=== PATIENT | female | born 1970 | race Asian ===

== ENCOUNTER 2017-07-03 12:03 | Inpatient (IN) | payer OTHER, SELFPAY ==
[2017-07-03] VITALS (20 sets, daily range): BP systolic 94–108; BP diastolic 60–78; PULSE 85–128; RESP 15–23; TEMP 36.5–38.3; O2SAT 79–98; BMI 16.9; BMI 17.0; BMI 13.7
--- NOTE | 2017-07-03 12:24 | EKG12_ITS ---
Test Reason : SOB Blood Pressure : / mmHG Vent. Rate : 091 BPM Atrial Rate : 091 BPM P-R Int : 124 ms QRS Dur : 080 ms QT Int : 408 ms P-R-T Axes : 054 070 057 degrees QTc Int : 501 ms Normal sinus rhythm Prolonged QT Abnormal ECG Confirmed by BRADY CASTRO, HAI ([id number]), movie editor HUANG BRENNAN ([id number] on 07/07/2017 12:59:58 PM Referred By: JESSIE Confirmed By:HAI ABREU MD
--- NOTE | 2017-07-03 12:24 | RAD_ITS ---
STUDY: X-RAY CHEST REASON FOR EXAM: Female, 46 years old. Weakness and shortness of breath. TECHNIQUE: PA and lateral views of the chest. COMPARISON: None. FINDINGS: EKG electrodes are seen. Hyperinflation. Left lower lobe consolidation and left pleural effusion. Patchy infiltrate in the posterior medial segment of the right lower lobe. There is no demonstrated pleural abnormality. Normal size heart. Normal mediastinum and jon. Normal visualized pulmonary arteries. Normal visualized aortic arch and descending thoracic aorta. Normal visualized thoracic spine. Normal visualized ribs, clavicles, and shoulders. There is no demonstrated abnormality of the visualized soft tissue structures of the upper abdomen. RAD/Chest PA and Lateral IMPRESSION: Left lower lobe consolidation and small left pleural effusion. Right basilar infiltrate. Follow-up is recommended. Electronically Signed: Vikas Haney MD at 12:52 EST Tel [phone], Service support ,
[2017-07-03 12:40] LABS: Absolute Lymphocyte Count 0.31 X10^3/ul (0.83-4.51); Hematocrit 24.5 % (37-47); Hemoglobin 7.9 g/dl (12.0-15.0); Lymphocyte # 0.31 X10^3/ul (4.0); Lymphocyte % 6.9 % (19-41); Mean Corp Hgb Conc 32.2 g/gl (32-36); Mean Corpuscular Hgb 36.2 pg (27.0-32.0); Mean Corpuscular Volume 112.4 fL (81-99); Mean Platelet Vol. 11.4 fl (6.2-12.0); Monocyte# 0.19 X10^3/uL; Monocyte% 4.3 % (0-10); Neutrophil # 3.96 X10^3/uL (2.7-7.7); Neutrophil % 88.6 % (47-70); Platelet Count 73 K/mm3 (150-450); RBC Distribution Width CV 14.9 % (11.6-14.6); RBC Distribution Width SD 60.9 fl (35.1-43.9); Red Blood Count 2.18 M/mm3 (4.2-5.4); White Blood Count 4.5 K/mm3 (4.4-11.0)
[2017-07-03 12:41] LABS: Differential Indicated SCAN CRITERIA MET; POSITIVE COUNT NO; POSITIVE DIFFERENTIAL YES; POSITIVE MORPHOLOGY YES
[2017-07-03 12:54] LABS: Anion Gap 12 (5-15); BUN 69 mg/dL (7-18); BUN/Creat Ratio 12.6 RATIO (10-20); Calcium,Total 7.9 mg/dL (8.5-10.1); Chloride 103 mmol/L (98-107); Creatinine, Serum 5.48 mg/dL (0.55-1.02); EST Glomerular Filtration Rate 9 mL/min (>60); Est Glom Filt Rate - Afr Amer 11 mL/min (>60); Glucose 67 mg/dL (74-106); Potassium 4.6 mmol/L (3.5-5.1); Sodium Level 136 mmol/L (136-145)
[2017-07-03 13:08] LABS: Hypochromasia 2+; Macrocytosis 1+; Platelet Estimate MKD DEC (ADEQ); Platelet Morphology LARGE; Schistocytes 1+
[2017-07-03 13:09] LABS: Toxic Granulation RARE
[2017-07-03] MEDS: 0.9% Normal Saline 1,000 ML 1000 ML IV (13:32)
--- NOTE | 2017-07-03 13:42 | ED.RN ---
PHARMACY CALLED FOR ZITHROMAX, WILL SEND
[2017-07-03] MEDS: Ceftriaxone 1 GM/50 mL Premix x1 IV (13:56)
[2017-07-03 14:03] LABS: Lactic Acid 2.9 mmol/L (0.4-2.0)
--- NOTE | 2017-07-03 14:04 | ED.RN ---
DR CASTREJON NOTIFIED OF LACTIC ACID RESULTS
--- NOTE | 2017-07-03 15:10 | PCM.HP.STD ---
Problem List (1) Sepsis Status: Acute Qualifiers: Sepsis type: sepsis due to unspecified organism Qualified Code(s): A41.9 - Sepsis, unspecified organism (2) Pneumonia, bacterial Status: Acute (3) JENNIFFER (acute kidney injury) Status: Acute (4) CKD (chronic kidney disease) stage 4, GFR 15-29 ml/min Status: Chronic (5) History of renal transplant Status: Chronic (6) History of gastric cancer Status: Chronic (7) Essential hypertension Status: Chronic (8) Anemia, chronic renal failure Status: Chronic Qualifiers: Chronic kidney disease stage: stage 4 (severe) Qualified Code(s): N18.4 - Chronic kidney disease, stage 4 (severe); D63.1 - Anemia in chronic kidney disease History of Present Illness Date of Admission: 07/03/17 Chief Complaint: chest pain, shortness of breath. Patient is a 46 years old female with history of renal failure s/p renal transplant, who presents to ED with complaining of chest pain and shortness of breath for about one week, progressively worsening. She has sharp chest pain with cough, which is mostly non-productive. She denied of any fever or chills, but had been feeling ill with decreased appetite, generalized weakness, and malaise. In ED, her blood pressure was low initially at 97/73, IVF had improved SBP to 110. She was hypoxic, 89% Oxygen saturation initially, improved to high 90's with 5 liter. CXR showed consolidation on LLL and infiltrate on RLL. Her creatinine on last record was 2.99 in December, with baseline ranging 2.4 to 3.2 last year. She followed nephrology at [facility]. WBC was 4.5, lactic acid was 2.9. Hgb 7.9, which is lower than her baseline, ranging 7.5 to 9.2 last year. She denied of any hematemesis or hematochezia/melena. Past Medical History Past Medical History (Chronic Problems): Chronic Problems CKD (chronic kidney disease) stage 4, GFR 15-29 ml/min (Chronic) History of renal transplant (Chronic) History of gastric cancer (Chronic) Essential hypertension (Chronic) Anemia, chronic renal failure (Chronic) Allergies Sulfa (Sulfonamide Antibiotics) Allergy (Verified 11/16/16 10:01) Hives NSAIDS (Non-Steroidal Anti-Inflamma Adverse Reaction (Verified 11/16/16 10:01) Other Home Medications: Ambulatory Orders Medication Instructions Recorded Amlodipine [Norvasc] 2.5 mg PO DAILY 07/03/17 Calcium Citrate/Vitamin D3 1 each PO DAILY 07/03/17 [Calcium Citrate - Vit D Caplet] Cholecalciferol (Vitamin D3) 50,000 unit PO FR 07/03/17 [Vitamin D] Colestipol Tablet [Colestid Tablet] 1 gm PO BID 07/03/17 Cyanocobalamin [Vitamin B12] 1,000 mcg IM Q30D 07/03/17 Dronabinol [Marinol] 2.5 mg PO 4X/DAY 07/03/17 Escitalopram Oxalate [Lexapro] 10 mg PO QODAY 07/03/17 Esomeprazole Mag Trihydrate 40 mg PO DAILY 07/03/17 [Nexium] Gabapentin [Neurontin] 300 mg PO BIDCM 07/03/17 Levonorgestrel [Mirena] 1 each IY 07/03/17 Lipase/Protease/Amylase [Creon Dr 1 each PO BID 07/03/17 12,000 Units Capsule] Multivit,Calc,Mins/Iron/Folic 1 each PO DAILY 07/03/17 [Therapeutic-M Tablet] Oxycodone [Oxyir] 5 mg PO Q8H PRN 07/03/17 Polyethylene Glycol 3350 [Miralax] 17 gm PO DAILY PRN PRN 07/03/17 Prednisone 5 mg PO DAILY 07/03/17 Vits [Prenatabs FA] 1 tablet PO DAILY 07/03/17 Sodium Bicarbonate 650 mg PO DAILY 07/03/17 Tacrolimus [Astagraf Xl] 2 mg PO BREAKFAST 07/03/17 Tacrolimus [Envarsus Xr] 1 mg PO DINNER 07/03/17 Tizanidine HCl [Zanaflex] 4 mg PO Q6H PRN 07/03/17 Surgical History: - - renal transplant Smoking Status: Former smoker Alcohol: None Drugs: None - *Family History Maternal History Items: No pertinent history Review of Systems Comment: ROS: In general: Patient has been in fair health. Malaise as above. See HPI. HEENT: Unremarkable. Patient denied of any dizziness, chronic headache, blurred vision, double vision, dry mouth, or nasal congestion. CV/respiratory: See HPI. GI: Patient denied any abdominal pain, nausea, vomiting, diarrhea, constipation, melena, or hematochezia. : Patient denied any significant urinary symptoms. She makes urine. Neurology: Unremarkable. There is no history of seizure as an adult. Psychological: Unremarkable. ?. Endocrine: Unremarkable. Musculoskeletal: Unremarkable. VTE Information - Inpt Only VTE Present on Admission: No VTE Mechan Device Prophylaxis: Knee High CLARK Hose VTE Pharm Prophylaxis ordered?: Yes Patient Problems: Active and Suspected Problems Sepsis (Acute) Pneumonia, bacterial (Acute) JENNIFFER (acute kidney injury) (Acute) Objective: In general, patient appears somewhat cachectic. She is alert and oriented x 3. HEENT: Head is atraumatic, and normocephalic. Pupils are equal, round, and reactive to light and accommodations. Neck is supple. There is no lymphadenopathy, or thyromegaly. Oral mucosa is pink, and moist. There are no lesions. Heart: Auscultation is normal with regular rhythm and rate. There is no extra heart sounds, or murmurs. S1 and S2 are present. Point of maximal impulse is not displaced. Lungs: Rales at bases bilaterally. Abdomen: Abdominal wall is non-tender, and non-distended. There is no palpable mass or organomegaly. Normoactive bowel sounds are present. Extremities: There is no cyanosis or clubbing. Peripheral pulses are palpable. There is no edema. Skin: excoriation around lower lip. +contusion of forearm. Neurological: CN II - XII are intact. Sensory and motor functions are grossly normal with no obvious deficit. Cerebellar functions are within normal range. Gait was not tested. - Physical Exam Vital Signs Temp Pulse Resp BP Pulse Ox 97.7 F L 89 22 H 102/73 93 07/03/17 12:07 07/03/17 14:48 07/03/17 14:48 07/03/17 14:48 07/03/17 14:48 Oxygen Flow Rate 5 Oxygen Delivery Method Nasal Cannula Weight: 83 lb 15.938 oz Body Mass Index (BMI) 16.9 Laboratory Tests Past 24 Hrs 07/03/17 07/03/17 07/03/17 12:25 12:25 13:35 WBC 4.5 RBC 2.18 L Hgb 7.9 L Hct 24.5 L MCV 112.4 H MCH 36.2 H MCHC 32.2 RDW 14.9 H RDW Differential 60.9 H Plt Count 73 L MPV 11.4 Immature Gran % (Auto) 0.200 Neut % (Auto) 88.6 H Lymph % (Auto) 6.9 L Norman % (Auto) 4.3 Eos % (Auto) 0.0 Baso % (Auto) 0.0 Absolute Neuts (auto) 4.0 Absolute Lymphs (auto) 0.31 L Total Counted Not Reportable Toxic Granulation RARE Platelet Estimate MKD DEC Plt Morphology Comment LARGE Hypochromasia 2+ Macrocytosis 1+ Schistocytes 1+ Sodium 136 Potassium 4.6 Chloride 103 Carbon Dioxide 21.0 Anion Gap 12 BUN 69 H Creatinine 5.48 H Estim Creat Clear Calc 7.80 Est GFR (MDRD) Af Amer 11 L Est GFR (MDRD) Non-Af 9 L BUN/Creatinine Ratio 12.6 Glucose 67 L Lactic Acid 2.9 H Calcium 7.9 L Troponin I < 0.02 Diagnostic Data Chest X-Ray 07/03/17 12:24 IMPRESSION: Left lower lobe consolidation and small left pleural effusion. Right basilar infiltrate. Follow-up is recommended. Electronically Signed: Vikas Haney MD at 12:52 EST Tel [phone], Service support , Assessment/Plan Active and Suspected Problems Sepsis (Acute) Pneumonia, bacterial (Acute) JENNIFFER (acute kidney injury) (Acute) Patient is a 46 years old female with history of renal failure s/p renal transplant, who presents to ED with complaining of chest pain and shortness of breath for about one week, progressively worsening. She has sharp chest pain with cough, which is mostly non-productive. She denied of any fever or chills, but had been feeling ill with decreased appetite, generalized weakness, and malaise. In ED, her blood pressure was low initially at 97/73, IVF had improved SBP to 110. She was hypoxic, 89% Oxygen saturation initially, improved to high 90's with 5 liter. CXR showed consolidation on LLL and infiltrate on RLL. Her creatinine on last record was 2.99 in December, with baseline ranging 2.4 to 3.2 last year. She followed nephrology at [facility]. WBC was 4.5, lactic acid was 2.9. Hgb 7.9, which is lower than her baseline, ranging 7.5 to 9.2 last year. She denied of any hematemesis or hematochezia/melena. #1 Sepsis. Likely with pneumonia. She responded to IVF well. Lactic acid was 2.9, and she was hypotensive. Continue IVF resuscitation. Decreased volume for CKD/JENNIFFER. #2 Pneumonia. Bilateral lower lobes. Started on Rocephin and azithromycin empirically. Blood cultures pending. Urine for legionella and strep pneumoniae Ag. DuoNeb aerosol treatment. Oxygen prn. #3 JENNIFFER. With underling CKD IV. IVF has above, NS 125 ml/hr after IV bolus. Repeat BMP. She seed [facility] nephrology. Consult Dr. Mcdaniel while in the hospital. If renal function dose not improve, she may need to be transferred to [facility]. #4 History of renal transplant. Continue current medications tacrolimus and prednisone. Check tacrolimus level. #5 Anemia with renal disease. Lower than her baseline. She has history of PUD, but she is asymptomatic. Check hemoccult stool. She has no signs of obvious active bleeding. Monitor CBC. VTE prophylaxis: Heparin SQ. GI prophylaxis: PPI po. She is full code. Disposition: To be determined. Code Visit Inpatient E&M: 80685 Init Hosp L3
--- NOTE | 2017-07-03 15:20 | HP.PCM_ITS ---
Problem List (1) Sepsis Status: Acute Qualifiers: Sepsis type: sepsis due to unspecified organism Qualified Code(s): A41.9 - Sepsis, unspecified organism (2) Pneumonia, bacterial Status: Acute (3) JENNIFFER (acute kidney injury) Status: Acute (4) CKD (chronic kidney disease) stage 4, GFR 15-29 ml/min Status: Chronic (5) History of renal transplant Status: Chronic (6) History of gastric cancer Status: Chronic (7) Essential hypertension Status: Chronic (8) Anemia, chronic renal failure Status: Chronic Qualifiers: Chronic kidney disease stage: stage 4 (severe) Qualified Code(s): N18.4 - Chronic kidney disease, stage 4 (severe); D63.1 - Anemia in chronic kidney disease History of Present Illness Date of Admission: 07/03/17 Chief Complaint: chest pain, shortness of breath. Patient is a 46 years old female with history of renal failure s/p renal transplant, who presents to ED with complaining of chest pain and shortness of breath for about one week, progressively worsening. She has sharp chest pain with cough, which is mostly non-productive. She denied of any fever or chills, but had been feeling ill with decreased appetite, generalized weakness, and malaise. In ED, her blood pressure was low initially at 97/73, IVF had improved SBP to 110. She was hypoxic, 89% Oxygen saturation initially, improved to high 90's with 5 liter. CXR showed consolidation on LLL and infiltrate on RLL. Her creatinine on last record was 2.99 in December, with baseline ranging 2.4 to 3.2 last year. She followed nephrology at [facility]. WBC was 4.5, lactic acid was 2.9. Hgb 7.9, which is lower than her baseline, ranging 7.5 to 9.2 last year. She denied of any hematemesis or hematochezia/ melena. Past Medical History Past Medical History (Chronic Problems): Chronic Problems CKD (chronic kidney disease) stage 4, GFR 15-29 ml/min (Chronic) History of renal transplant (Chronic) History of gastric cancer (Chronic) Essential hypertension (Chronic) Anemia, chronic renal failure (Chronic) Allergies Sulfa (Sulfonamide Antibiotics) Allergy (Verified 11/16/16 10:01) Hives NSAIDS (Non-Steroidal Anti-Inflamma Adverse Reaction (Verified 11/16/16 10:01) Other Home Medications: Ambulatory Orders Medication Instructions Recorded Amlodipine [Norvasc] 2.5 mg PO DAILY 07/03/17 Calcium Citrate/Vitamin D3 1 each PO DAILY 07/03/17 [Calcium Citrate - Vit D Caplet] Cholecalciferol (Vitamin D3) 50,000 unit PO FR 07/03/17 [Vitamin D] Colestipol Tablet [Colestid Tablet] 1 gm PO BID 07/03/17 Cyanocobalamin [Vitamin B12] 1,000 mcg IM Q30D 07/03/17 Dronabinol [Marinol] 2.5 mg PO 4X/DAY 07/03/17 Escitalopram Oxalate [Lexapro] 10 mg PO QODAY 07/03/17 Esomeprazole Mag Trihydrate 40 mg PO DAILY 07/03/17 [Nexium] Gabapentin [Neurontin] 300 mg PO BIDCM 07/03/17 Levonorgestrel [Mirena] 1 each IY 07/03/17 Lipase/Protease/Amylase [Creon Dr 1 each PO BID 07/03/17 12,000 Units Capsule] Multivit,Calc,Mins/Iron/Folic 1 each PO DAILY 07/03/17 [Therapeutic-M Tablet] Oxycodone [Oxyir] 5 mg PO Q8H PRN 07/03/17 Polyethylene Glycol 3350 [Miralax] 17 gm PO DAILY PRN PRN 07/03/17 Prednisone 5 mg PO DAILY 07/03/17 Vits [Prenatabs FA] 1 tablet PO DAILY 07/03/17 Sodium Bicarbonate 650 mg PO DAILY 07/03/17 Tacrolimus [Astagraf Xl] 2 mg PO BREAKFAST 07/03/17 Tacrolimus [Envarsus Xr] 1 mg PO DINNER 07/03/17 Tizanidine HCl [Zanaflex] 4 mg PO Q6H PRN 07/03/17 Surgical History: - - renal transplant Smoking Status: Former smoker Alcohol: None Drugs: None - *Family History Maternal History Items: No pertinent history Review of Systems Comment: ROS: In general: Patient has been in fair health. Malaise as above. See HPI. HEENT: Unremarkable. Patient denied of any dizziness, chronic headache , blurred vision, double vision, dry mouth, or nasal congestion. CV/respiratory : See HPI. GI: Patient denied any abdominal pain, nausea, vomiting, diarrhea, constipation, melena, or hematochezia. : Patient denied any significant urinary symptoms. She makes urine. Neurology: Unremarkable. There is no history of seizure as an adult. Psychological: Unremarkable. ?. Endocrine: Unremarkable. Musculoskeletal: Unremarkable. VTE Information - Inpt Only VTE Present on Admission: No VTE Mechan Device Prophylaxis: Knee High CLARK Hose VTE Pharm Prophylaxis ordered?: Yes Patient Problems: Active and Suspected Problems Sepsis (Acute) Pneumonia, bacterial (Acute) JENNIFFER (acute kidney injury) (Acute) Objective: In general, patient appears somewhat cachectic. She is alert and oriented x 3. HEENT: Head is atraumatic, and normocephalic. Pupils are equal, round, and reactive to light and accommodations. Neck is supple. There is no lymphadenopathy, or thyromegaly. Oral mucosa is pink, and moist. There are no lesions. Heart: Auscultation is normal with regular rhythm and rate. There is no extra heart sounds, or murmurs. S1 and S2 are present. Point of maximal impulse is not displaced. Lungs: Rales at bases bilaterally. Abdomen: Abdominal wall is non-tender, and non-distended. There is no palpable mass or organomegaly. Normoactive bowel sounds are present. Extremities: There is no cyanosis or clubbing. Peripheral pulses are palpable. There is no edema. Skin: excoriation around lower lip. +contusion of forearm. Neurological: CN II - XII are intact. Sensory and motor functions are grossly normal with no obvious deficit. Cerebellar functions are within normal range. Gait was not tested. - Physical Exam Vital Signs Temp Pulse Resp BP Pulse Ox 97.7 F L 89 22 H 102/73 93 07/03/17 12:07 07/03/17 14:48 07/03/17 14:48 07/03/17 14:48 07/03/17 14:48 Oxygen Flow Rate 5 Oxygen Delivery Method Nasal Cannula Weight: 83 lb 15.938 oz Body Mass Index (BMI) 16.9 Laboratory Tests Past 24 Hrs 07/03/17 07/03/17 07/03/17 12:25 12:25 13:35 WBC 4.5 RBC 2.18 L Hgb 7.9 L Hct 24.5 L MCV 112.4 H MCH 36.2 H MCHC 32.2 RDW 14.9 H RDW Differential 60.9 H Plt Count 73 L MPV 11.4 Immature Gran % (Auto) 0.200 Neut % (Auto) 88.6 H Lymph % (Auto) 6.9 L Reynolds % (Auto) 4.3 Eos % (Auto) 0.0 Baso % (Auto) 0.0 Absolute Neuts (auto) 4.0 Absolute Lymphs (auto) 0.31 L Total Counted Not Reportable Toxic Granulation RARE Platelet Estimate MKD DEC Plt Morphology Comment LARGE Hypochromasia 2+ Macrocytosis 1+ Schistocytes 1+ Sodium 136 Potassium 4.6 Chloride 103 Carbon Dioxide 21.0 Anion Gap 12 BUN 69 H Creatinine 5.48 H Estim Creat Clear Calc 7.80 Est GFR (MDRD) Af Amer 11 L Est GFR (MDRD) Non-Af 9 L BUN/Creatinine Ratio 12.6 Glucose 67 L Lactic Acid 2.9 H Calcium 7.9 L Troponin I < 0.02 Diagnostic Data Chest X-Ray 07/03/17 12:24 IMPRESSION: Left lower lobe consolidation and small left pleural effusion. Right basilar infiltrate. Follow-up is recommended. Electronically Signed: Vikas Haney MD at 12:52 EST Tel [phone], Service support , Assessment/Plan Active and Suspected Problems Sepsis (Acute) Pneumonia, bacterial (Acute) JENNIFFER (acute kidney injury) (Acute) Patient is a 46 years old female with history of renal failure s/p renal transplant, who presents to ED with complaining of chest pain and shortness of breath for about one week, progressively worsening. She has sharp chest pain with cough, which is mostly non-productive. She denied of any fever or chills, but had been feeling ill with decreased appetite, generalized weakness, and malaise. In ED, her blood pressure was low initially at 97/73, IVF had improved SBP to 110. She was hypoxic, 89% Oxygen saturation initially, improved to high 90's with 5 liter. CXR showed consolidation on LLL and infiltrate on RLL. Her creatinine on last record was 2.99 in December, with baseline ranging 2.4 to 3.2 last year. She followed nephrology at [facility]. WBC was 4.5, lactic acid was 2.9. Hgb 7.9, which is lower than her baseline, ranging 7.5 to 9.2 last year. She denied of any hematemesis or hematochezia/ melena. #1 Sepsis. Likely with pneumonia. She responded to IVF well. Lactic acid was 2.9, and she was hypotensive. Continue IVF resuscitation. Decreased volume for CKD/JENNIFFER. #2 Pneumonia. Bilateral lower lobes. Started on Rocephin and azithromycin empirically. Blood cultures pending. Urine for legionella and strep pneumoniae Ag. DuoNeb aerosol treatment. Oxygen prn. #3 JENNIFFER. With underling CKD IV. IVF has above, NS 125 ml/hr after IV bolus. Repeat BMP. She seed [facility] nephrology. Consult Dr. Mcdaniel while in the hospital. If renal function dose not improve, she may need to be transferred to [facility]. #4 History of renal transplant. Continue current medications tacrolimus and prednisone. Check tacrolimus level. #5 Anemia with renal disease. Lower than her baseline. She has history of PUD, but she is asymptomatic. Check hemoccult stool. She has no signs of obvious active bleeding. Monitor CBC. VTE prophylaxis: Heparin SQ. GI prophylaxis: PPI po. She is full code. Disposition: To be determined. Code Visit Inpatient E&M: 29848 Init Hosp L3
[2017-07-03] MEDS: 0.9% Normal Saline 1,000 ML 125 ML IV ×2 (16:00→22:58)
[2017-07-03 17:35] LABS: Reflex Lactate? Y
[2017-07-03 17:54] LABS: Lactic Acid 1.8 mmol/L (0.4-2.0)
[2017-07-03] MEDS: oxyCODONE 5 MG Tablet PO ×2 (18:17→22:57)
[2017-07-03] MEDS: Gabapentin 300 MG Capsule PO (18:17)
[2017-07-03] MEDS: Cyanocobalamin (B12) 1,000 MCG/ML Vial 1000 MCG IM (19:30)
[2017-07-03] MEDS: Calcium Carb/Vitamin D 1 TABLET Tablet PO (19:30)
[2017-07-03] MEDS: Ipratropium/Albuterol Sulfate 3 ML AMPUL.NEB INHALATION (19:31)
[2017-07-03] MEDS: Heparin Injection 5,000 UNITS/ML Syringe 5000 UNITS SC (22:48)
[2017-07-03] MEDS: Acetaminophen 325 MG Tablet 650 MG PO (23:08)
[2017-07-04] VITALS (26 sets, daily range): BP systolic 92–117; BP diastolic 63–84; PULSE 98–116; RESP 12–24; TEMP 36.6–37.2; O2SAT 91–97
[2017-07-04] MEDS: Ipratropium/Albuterol Sulfate 3 ML AMPUL.NEB INHALATION ×4 (00:55→19:47)
[2017-07-04 04:13] LABS: M R Staph aureus DNA By PCR Negative (Negative); Probe Check PASS; Specimen Processing Control PASS
[2017-07-04] MEDS: Heparin Injection 5,000 UNITS/ML Syringe 5000 UNITS SC ×2 (05:47→14:22)
[2017-07-04] MEDS: oxyCODONE 5 MG Tablet PO ×2 (06:08→12:01)
[2017-07-04 07:09] LABS: Hematocrit 19.8 % (37-47); Hemoglobin 6.7 g/dl (12.0-15.0); Mean Corp Hgb Conc 33.8 g/gl (32-36); Mean Corpuscular Hgb 37.9 pg (27.0-32.0); Mean Corpuscular Volume 111.9 fL (81-99); Mean Platelet Vol. 11.8 fl (6.2-12.0); Platelet Count 51 K/mm3 (150-450); RBC Distribution Width CV 14.5 % (11.6-14.6); Red Blood Count 1.77 M/mm3 (4.2-5.4); White Blood Count 6.8 K/mm3 (4.4-11.0)
[2017-07-04 07:14] LABS: Scan Indicated on CBC? Y/N NO
[2017-07-04 07:48] LABS: Albumin, Serum 1.5 g/dL (3.2-5.0); BUN 63 mg/dL (7-18); Chloride 107 mmol/L (98-107); EST Glomerular Filtration Rate 11 mL/min (>60); Est Glom Filt Rate - Afr Amer 14 mL/min (>60); Estimated Creatinine Clearance 7.83 ml/min; Ferritin 1071 ng/mL (8-252); Glucose 76 mg/dL (74-106); Iron 9 ug/dL (50-170); Phosphorus 5.2 mg/dL (2.5-4.9); Potassium 4.7 mmol/L (3.5-5.1); Sodium Level 138 mmol/L (136-145)
[2017-07-04] MEDS: 0.9% Normal Saline 1,000 ML 125 ML IV (08:34)
[2017-07-04] MEDS: Pantoprazole Sodium 40 MG Tablet PO (08:50)
[2017-07-04] MEDS: Dronabinol 2.5 MG Capsule PO ×3 (09:50→17:11)
[2017-07-04] MEDS: Sodium Bicarbonate 650 MG Tablet PO (09:50)
[2017-07-04] MEDS: Calcium Carb/Vitamin D 1 TABLET Tablet PO ×2 (09:50→17:11)
[2017-07-04] MEDS: Gabapentin 300 MG Capsule PO ×2 (09:50→17:11)
[2017-07-04] MEDS: Prenatal Vits Tablet 1 TABLET PO (09:50)
[2017-07-04] MEDS: Ceftriaxone 1 GM/50 ML BAG IV (09:52)
--- NOTE | 2017-07-04 10:59 | PCM.CONS.R ---
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 Hameed at [facility]. She presented to ED on 07/03 with complains of chest pain and shortness of breath for about one week with nonproductive cough. She complained of chills but no fever. Her has been ill with the flu week ago. She was started on IV antibiotic therapy for bilateral Streptococcus pneumonia. Blood culture was positive for strep pneumoniae ?2 drawn in ER. She has been feeling ill with poor oral intake, anorexia with continued weight loss and fatigue. She has been on parenteral nutrition in the past but none recently. She is pancytopenic with hemoglobin of 7.9 dropped down to 6.7 g today. She has CKD stage IV with baseline creatinine running in the 2's, 3.9 on June 04, 2017. There has been some discussion about dialysis in the past with [facility] but no definite plans made. Creatinine on admission was elevated at 5.48 improved to 4.5 with IV hydration overnight. She denies any syncope or swelling. She has increased abdominal fullness with fluids or small meals. She has a history of CMV bleeding ulcers hospitalized twice at [facility] last year requiring intubation for one of the hospitalizations. She denied any hematochezia, melena, hematemesis. She denies any nausea or vomiting. She has been on ganciclovir for CMV infection last year. Today she continues to feel ill with weakness, fatigue, generalized malaise, and cough. She denies any nausea vomiting or diarrhea. She remains hypoxic requiring 5 L oxygen. She is tachycardic. CXR showed consolidation on LLL and RLL. Currently she is on tacrolimus and prednisone therapy for her kidney transplant. ProGraf level was sent yesterday with pending results. Last prograf level was 9 with SCr 3.9. - Allergies Allergies: Allergies Sulfa (Sulfonamide Antibiotics) Allergy (Verified 11/16/16 10:01) Hives NSAIDS (Non-Steroidal Anti-Inflamma Adverse Reaction (Verified 11/16/16 10:01) Other - Current Medications Current Medications: Current Medications Acetaminophen (Tylenol) 650 mg PO Q6H PRN PRN PRN Reason: Mild Pain (1-3)/Temp > 100.7 F Last Admin: 07/03/17 23:08 Dose: 325 mg Albuterol/Ipratropium (Duoneb) 3 ml INHALATION Q6H.RT [facility] Last Admin: 07/04/17 07:20 Dose: 3 ml Bisacodyl (Dulcolax) 5 mg PO DAILY PRN PRN PRN Reason: Constipation Calcium/Vitamin D (Os-Patrice 500mg + D[facility] Last Admin: 07/04/17 09:50 Dose: 1 tablet Colestipol HCl (Colestid Tablet) 1 gm PO BID [facility] Last Admin: 07/04/17 08:50 Dose: 1 gm Cyanocobalamin (Vitamin B12) 1,000 mcg IM Q30D [facility] Last Admin: 07/03/17 19:30 Dose: 1,000 mcg Dronabinol (Marinol) 2.5 mg PO 4X/DAY [facility] Last Admin: 07/04/17 09:50 Dose: 2.5 mg Escitalopram Oxalate (Lexapro) 10 mg PO QODAY [facility] Gabapentin (Neurontin) 300 mg PO BIDCM [facility] Last Admin: 07/04/17 09:50 Dose: 300 mg Heparin Sodium (Porcine) () 5,000 units SC Q8 [facility] Last Admin: 07/04/17 05:47 Dose: 5,000 units Sodium Chloride () 1,000 mls @ 125 mls/hr IV .Q8H [facility] Last Admin: 07/04/17 08:34 Dose: 125 mls/hr Ceftriaxone Sodium (Rocephin) 1 gm in 50 mls @ 100 mls/hr IV Q24 [facility] Last Admin: 07/04/17 09:52 Dose: 100 mls/hr Vancomycin HCl () 500 mg in 100 mls @ 100 mls/hr IV Q72H [facility] Last Admin: 07/04/17 01:50 Dose: 100 mls/hr Magnesium Hydroxide (Milk Of Magnesia) 30 ml PO DAILY PRN PRN Reason: Constipation Non-Formulary Medication (Tacrolimus) 2 mg PO BREAKFAST [facility] Non-Formulary Medication (Tacrolimus [Envarsus Xr]) 1 mg PO DINNER [facility] Ondansetron HCl (Zofran) 4 mg IV Q8H PRN PRN PRN Reason: NAUSEA Oxycodone HCl (Oxyir) 5 - 10 mg PO Q4H PRN PRN PRN Reason: MOD-SEVERE PAIN (4-10/10) Last Admin: 07/04/17 06:08 Dose: 5 mg Pancrelipase (Pancrelipase (5000-17,000-27,000)) 1 capsule PO TIDCM [facility] Last Admin: 07/04/17 09:50 Dose: 1 capsule Pantoprazole Sodium (Protonix) 40 mg PO DAILY [facility] Last Admin: 07/04/17 08:50 Dose: 40 mg Polyethylene Glycol (Miralax) 17 gm PO DAILY PRN PRN PRN Reason: Constipation [facility] Last Admin: 07/04/17 08:50 Dose: 5 mg Multivit/Folic Acid/Iron (Prenatabs Fa) 1 tablet PO DAILY [facility] Last Admin: 07/04/17 09:50 Dose: 1 tablet Promethazine HCl (Phenergan (Ll)) 12.5 mg IV Q6H PRN PRN Reason: NAUSEA Sodium Bicarbonate (Sodium Bicarbonate) 650 mg PO DAILY [facility] Last Admin: 07/04/17 09:50 Dose: 650 mg Sodium Chloride () 5 - 30 ml IV UD PRN PRN Reason: SALINE FLUSH Tizanidine HCl (Zanaflex) 4 mg PO Q6H PRN PRN Reason: MUSCLE SPASMS Zolpidem Tartrate (Ambien (Generic)) 5 mg PO QHS PRN PRN PRN Reason: INSOMNIA - Past Medical History Past Medical History (Chronic Problems): Chronic Problems CKD (chronic kidney disease) stage 4, GFR 15-29 ml/min (Chronic) History of renal transplant (Chronic) History of gastric cancer (Chronic) Essential hypertension (Chronic) Anemia, chronic renal failure (Chronic) - Past Surgical History Surgical History: - - renal transplant from mother Feb 2010 - Social History Smoking Status: Former smoker Alcohol: None Drugs: None - Family History Maternal History Items: No pertinent history Review of Systems Constitutional: Reports: Anorexia, Chills, Weakness, Fatigue, - Eyes: Denies: Vision Change HEENT: Denies: Head Aches Cardiovascular: Reports: Chest Pain, Palpitations. Denies: Edema, Syncope Respiratory: Reports: Cough, Shortness of Breath, Shortness of breath upon exertion. Denies: Hemoptysis Gastrointestinal: Reports: - - Anorexia, Early satiety. Denies: Abdominal Pain, Hematemesis, Hematochezia, Nausea, Vomiting Genitourinary: Denies: Dysuria Musculoskeletal: Reports: - - No swelling Skin: Denies: Rash Neurological: Denies: Tremor, Seizures Psychiatric: Reports: Depression Hematologic/ Lymphatic: Reports: Anemia - Managed by Dr. Campoverde in [facility] on RICKY therapy, -. Denies: Hx of blood clot Patient Problems: Active and Suspected Problems Sepsis (Acute) Pneumonia, bacterial (Acute) JENNIFFER (acute kidney injury) (Acute) - Physical Exam General: Alert, Oriented x3, Cooperative, - - Mild conversational dyspnea, sallow complected, cachectic HEENT: PERRLA, EOMI, Normocephalic Oral: Dry Mucosa Neck: Supple Lungs: No wheeze, Diminished Abdomen: Bowel Sounds Present Extremities: No edema Skin: No rashes Musculoskeletal: Cachexia, Muscle Wasting Neurological: Cranial nerves II-XII grossly intact Psych/Mental Status: Depressed, Alert and oriented to time, place, person, mood and affect Vital Signs Temp Pulse Resp BP Pulse Ox 98.3 F 109 H 18 110/82 H 94 07/04/17 10:00 07/04/17 10:00 07/04/17 10:00 07/04/17 10:00 07/04/17 10:00 Oxygen Flow Rate 5 Oxygen Delivery Method Nasal Cannula Weight: 31.4 kg Body Mass Index (BMI) 13.7 Intake and Output for Last 24 Hours 07/02/17 07/03/17 07/04/17 23:59 23:59 23:59 Intake Total 1437 / 1437 926 / 926 Output Total 400 / 400 Balance 1037 / 1037 926 / 926 Microbiology Past 72 Hours 07/03/17 23:20 Legionella Antigen - Final Urine, Clean Catch 07/03/17 23:20 Streptococcus pneumoniae Antigen (M - Final Urine, Clean Catch Streptococcus pneumonia Ag Laboratory Tests Past 24 Hrs 07/03/17 07/04/17 07/04/17 17:05 01:15 06:23 WBC 6.8 RBC 1.77 L Hgb 6.7 L Hct 19.8 L MCV 111.9 H MCH 37.9 H MCHC 33.8 RDW 14.5 RDW Differential 56.0 H Plt Count 51 L MPV 11.8 Sodium Potassium Chloride Carbon Dioxide BUN Creatinine Estim Creat Clear Calc Est GFR (MDRD) Af Amer Est GFR (MDRD) Non-Af BUN/Creatinine Ratio Glucose Lactic Acid 1.8 Calcium Phosphorus Iron Ferritin Albumin MRSA (PCR) Negative 07/04/17 06:23 WBC RBC Hgb Hct MCV MCH MCHC RDW RDW Differential Plt Count MPV Sodium 138 Potassium 4.7 Chloride 107 Carbon Dioxide 21.0 BUN 63 H Creatinine 4.50 H Estim Creat Clear Calc 7.83 Est GFR (MDRD) Af Amer 14 L Est GFR (MDRD) Non-Af 11 L BUN/Creatinine Ratio 14.0 Glucose 76 Lactic Acid Calcium 7.0 L Phosphorus 5.2 H Iron 9 L Ferritin 1071 H Albumin 1.5 L MRSA (PCR) Clinical Impression(s) from Imaging Studies Chest X-Ray 07/03/17 12:24 IMPRESSION: Left lower lobe consolidation and small left pleural effusion. Right basilar infiltrate. Follow-up is recommended. Electronically Signed: Vikas Haney MD at 12:52 EST Tel [phone], Service support , Assessment/Plan Active and Suspected Problems Sepsis (Acute) Pneumonia, bacterial (Acute) JENNIFFER (acute kidney injury) (Acute) 1. JENNIFFER on CKD stage IV s/p LUR kidney transplant with prerenal component from dehydration, sepsis. Baseline creatinine in the 2 to 3 range last year. Creatinine 5.48 on admission improved to 4.5 today after IV fluids. Discussed possibility of needing to start dialysis if her renal function does not recover. 2. Acute sepsis with Streptococcus pneumoniae. She has mild respiratory distress with tachycardia and tachypnea, hypoxemia. Continue supportive measures. Consider stress dose steroids. 3. S/p kidney transplant. Discussed with transplant painter interior finish at [facility] in regards to adjusting her tacrolimus dose due to renal failure and recent pneumonia. will decrease FK to 1mg bid. Await FK level from yesterday 4. Pancytopenia hemoglobin down to 6.9 g. Transfuse 1 unit packed red cells 5. Failure to thrive with severe protein calorie malnutrition. Albumin at 1.4. She would benefit from TPN therapy. 6. History of CMV stomach ulcers with GI bleed. 7. Due to patient's complicated medical condition and long turnaround time for her antirejection medication levels, would recommend to transfer her to [facility]. Discussed with transplant painter interior finish and hospitalist.
--- NOTE | 2017-07-04 11:01 | CASEMGMT ---
Face to Face with patient for initial transition planning/care coordination assessment. RN DANIEL introduced self and role at [facility], pt voices understanding and consents to assessment at this time. Pt is lying in bed in no distress but pt seems weak and that it's a struggle to answer questions at this time. Pt A/O x4 at this time and answers all questions appropriately. Care providers, pharmacy, and demographics verified. See attached link. Pt voices no further concerns/needs at this time. Advised pt to ask for CM if any further questions/concerns/needs arise, voices understanding. CM to follow for any further discharge planning/needs. PLAN: Possible transfer to [facility] Delfina MILLAN CM
--- NOTE | 2017-07-04 11:25 | CON.PCM_ITS ---
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 Hameed at [facility]. She presented to ED on 07/03 with complains of chest pain and shortness of breath for about one week with nonproductive cough. She complained of chills but no fever. Her has been ill with the flu week ago. She was started on IV antibiotic therapy for bilateral Streptococcus pneumonia. Blood culture was positive for strep pneumoniae ?2 drawn in ER. She has been feeling ill with poor oral intake, anorexia with continued weight loss and fatigue. She has been on parenteral nutrition in the past but none recently. She is pancytopenic with hemoglobin of 7.9 dropped down to 6.7 g today. She has CKD stage IV with baseline creatinine running in the 2's, 3.9 on June 04, 2017. There has been some discussion about dialysis in the past with [facility] but no definite plans made. Creatinine on admission was elevated at 5.48 improved to 4.5 with IV hydration overnight. She denies any syncope or swelling. She has increased abdominal fullness with fluids or small meals. She has a history of CMV bleeding ulcers hospitalized twice at [facility] last year requiring intubation for one of the hospitalizations. She denied any hematochezia, melena, hematemesis. She denies any nausea or vomiting. She has been on ganciclovir for CMV infection last year. Today she continues to feel ill with weakness, fatigue, generalized malaise, and cough. She denies any nausea vomiting or diarrhea. She remains hypoxic requiring 5 L oxygen. She is tachycardic. CXR showed consolidation on LLL and RLL. Currently she is on tacrolimus and prednisone therapy for her kidney transplant. ProGraf level was sent yesterday with pending results. Last prograf level was 9 with SCr 3.9. - Allergies Allergies: Allergies Sulfa (Sulfonamide Antibiotics) Allergy (Verified 11/16/16 10:01) Hives NSAIDS (Non-Steroidal Anti-Inflamma Adverse Reaction (Verified 11/16/16 10:01) Other - Current Medications Current Medications: Current Medications Acetaminophen (Tylenol) 650 mg PO Q6H PRN PRN PRN Reason: Mild Pain (1-3)/Temp > 100.7 F Last Admin: 07/03/17 23:08 Dose: 325 mg Albuterol/Ipratropium (Duoneb) 3 ml INHALATION Q6H.RT [facility] Last Admin: 07/04/17 07:20 Dose: 3 ml Bisacodyl (Dulcolax) 5 mg PO DAILY PRN PRN PRN Reason: Constipation Cal[facility]itamin [facility] ([facility] + D[facility] Last Admin: 07/04/17 09:50 Dose: 1 tablet Colestipol HCl (Colestid Tablet) 1 gm PO BID [facility] Last Admin: 07/04/17 08:50 Dose: 1 gm Cyanocobalamin (Vitamin B12) 1,000 mcg IM Q30D [facility] Last Admin: 07/03/17 19:30 Dose: 1,000 mcg Dronabinol (Marinol) 2.5 mg PO 4X/DAY [facility] Last Admin: 07/04/17 09:50 Dose: 2.5 mg Escitalopram Oxalate (Lexapro) 10 mg PO QODAY [facility] Gabapentin (Neurontin) 300 mg PO BIDCM [facility] Last Admin: 07/04/17 09:50 Dose: 300 mg Heparin Sodium (Porcine) () 5,000 units SC Q8 [facility] Last Admin: 07/04/17 05:47 Dose: 5,000 units Sodium Chloride () 1,000 mls @ 125 mls/hr IV .Q8H [facility] Last Admin: 07/04/17 08:34 Dose: 125 mls/hr Ceftriaxone Sodium (Rocephin) 1 gm in 50 mls @ 100 mls/hr IV Q24 [facility] Last Admin: 07/04/17 09:52 Dose: 100 mls/hr Vancomycin HCl () 500 mg in 100 mls @ 100 mls/hr IV Q72H [facility] Last Admin: 07/04/17 01:50 Dose: 100 mls/hr Magnesium Hydroxide (Milk Of Magnesia) 30 ml PO DAILY PRN PRN Reason: Constipation Non-Formulary Medication (Tacrolimus) 2 mg PO BREAKFAST [facility] Non-Formulary Medication (Tacrolimus [Envarsus Xr]) 1 mg PO DINNER [facility] Ondansetron HCl (Zofran) 4 mg IV Q8H PRN PRN PRN Reason: NAUSEA Oxycodone HCl (Oxyir) 5 - 10 mg PO Q4H PRN PRN PRN Reason: MOD-SEVERE PAIN (4-10/10) Last Admin: 07/04/17 06:08 Dose: 5 mg Pancrelipase (Pancrelipase (5000-17,000-27,000)) 1 capsule PO TIDCM [facility] Last Admin: 07/04/17 09:50 Dose: 1 capsule Pantoprazole Sodium (Protonix) 40 mg PO DAILY [facility] Last Admin: 07/04/17 08:50 Dose: 40 mg Polyethylene Glycol (Miralax) 17 gm PO DAILY PRN PRN PRN Reason: Constipation [facility] Last Admin: 07/04/17 08:50 Dose: 5 mg Multivit/Folic Acid/Iron (Prenatabs Fa) 1 tablet PO DAILY [facility] Last Admin: 07/04/17 09:50 Dose: 1 tablet Promethazine HCl (Phenergan (Ll)) 12.5 mg IV Q6H PRN PRN Reason: NAUSEA Sodium Bicarbonate (Sodium Bicarbonate) 650 mg PO DAILY [facility] Last Admin: 07/04/17 09:50 Dose: 650 mg Sodium Chloride () 5 - 30 ml IV UD PRN PRN Reason: SALINE FLUSH Tizanidine HCl (Zanaflex) 4 mg PO Q6H PRN PRN Reason: MUSCLE SPASMS Zolpidem Tartrate (Ambien (Generic)) 5 mg PO QHS PRN PRN PRN Reason: INSOMNIA - Past Medical History Past Medical History (Chronic Problems): Chronic Problems CKD (chronic kidney disease) stage 4, GFR 15-29 ml/min (Chronic) History of renal transplant (Chronic) History of gastric cancer (Chronic) Essential hypertension (Chronic) Anemia, chronic renal failure (Chronic) - Past Surgical History Surgical History: - - renal transplant from mother Feb 2010 - Social History Smoking Status: Former smoker Alcohol: None Drugs: None - Family History Maternal History Items: No pertinent history Review of Systems Constitutional: Reports: Anorexia, Chills, Weakness, Fatigue, - Eyes: Denies: Vision Change HEENT: Denies: Head Aches Cardiovascular: Reports: Chest Pain, Palpitations. Denies: Edema, Syncope Respiratory: Reports: Cough, Shortness of Breath, Shortness of breath upon exertion. Denies: Hemoptysis Gastrointestinal: Reports: - - Anorexia, Early satiety. Denies: Abdominal Pain , Hematemesis, Hematochezia, Nausea, Vomiting Genitourinary: Denies: Dysuria Musculoskeletal: Reports: - - No swelling Skin: Denies: Rash Neurological: Denies: Tremor, Seizures Psychiatric: Reports: Depression Hematologic/ Lymphatic: Reports: Anemia - Managed by Dr. Campoverde in [facility] on RICKY therapy, -. Denies: Hx of blood clot Patient Problems: Active and Suspected Problems Sepsis (Acute) Pneumonia, bacterial (Acute) JENNIFFER (acute kidney injury) (Acute) - Physical Exam General: Alert, Oriented x3, Cooperative, - - Mild conversational dyspnea, sallow complected, cachectic HEENT: PERRLA, EOMI, Normocephalic Oral: Dry Mucosa Neck: Supple Lungs: No wheeze, Diminished Abdomen: Bowel Sounds Present Extremities: No edema Skin: No rashes Musculoskeletal: Cachexia, Muscle Wasting Neurological: Cranial nerves II-XII grossly intact Psych/Mental Status: Depressed, Alert and oriented to time, place, person, mood and affect Vital Signs Temp Pulse Resp BP Pulse Ox 98.3 F 109 H 18 110/82 H 94 07/04/17 10:00 07/04/17 10:00 07/04/17 10:00 07/04/17 10:00 07/04/17 10:00 Oxygen Flow Rate 5 Oxygen Delivery Method Nasal Cannula Weight: 31.4 kg Body Mass Index (BMI) 13.7 Intake and Output for Last 24 Hours 07/02/17 07/03/17 07/04/17 23:59 23:59 23:59 Intake Total 1437 / 1437 926 / 926 Output Total 400 / 400 Balance 1037 / 1037 926 / 926 Microbiology Past 72 Hours 07/03/17 23:20 Legionella Antigen - Final Urine, Clean Catch 07/03/17 23:20 Streptococcus pneumoniae Antigen (M - Final Urine, Clean Catch Streptococcus pneumonia Ag Laboratory Tests Past 24 Hrs 07/03/17 07/04/17 07/04/17 17:05 01:15 06:23 WBC 6.8 RBC 1.77 L Hgb 6.7 L Hct 19.8 L MCV 111.9 H MCH 37.9 H MCHC 33.8 RDW 14.5 RDW Differential 56.0 H Plt Count 51 L MPV 11.8 Sodium Potassium Chloride Carbon Dioxide BUN Creatinine Estim Creat Clear Calc Est GFR (MDRD) Af Amer Est GFR (MDRD) Non-Af BUN/Creatinine Ratio Glucose Lactic Acid 1.8 Calcium Phosphorus Iron Ferritin Albumin MRSA (PCR) Negative 07/04/17 06:23 WBC RBC Hgb Hct MCV MCH MCHC RDW RDW Differential Plt Count MPV Sodium 138 Potassium 4.7 Chloride 107 Carbon Dioxide 21.0 BUN 63 H Creatinine 4.50 H Estim Creat Clear Calc 7.83 Est GFR (MDRD) Af Amer 14 L Est GFR (MDRD) Non-Af 11 L BUN/Creatinine Ratio 14.0 Glucose 76 Lactic Acid Calcium 7.0 L Phosphorus 5.2 H Iron 9 L Ferritin 1071 H Albumin 1.5 L MRSA (PCR) Clinical Impression(s) from Imaging Studies Chest X-Ray 07/03/17 12:24 IMPRESSION: Left lower lobe consolidation and small left pleural effusion. Right basilar infiltrate. Follow-up is recommended. Electronically Signed: Vikas Haney MD at 12:52 EST Tel [phone], Service support , Assessment/Plan Active and Suspected Problems Sepsis (Acute) Pneumonia, bacterial (Acute) JENNIFFER (acute kidney injury) (Acute) 1. JENNIFFER on CKD stage IV s/p LUR kidney transplant with prerenal component from dehydration, sepsis. Baseline creatinine in the 2 to 3 range last year. Creatinine 5.48 on admission improved to 4.5 today after IV fluids. Discussed possibility of needing to start dialysis if her renal function does not recover. 2. Acute sepsis with Streptococcus pneumoniae. She has mild respiratory distress with tachycardia and tachypnea, hypoxemia. Continue supportive measures. Consider stress dose steroids. 3. S/p kidney transplant. Discussed with transplant camp recreation specialist at [facility] in regards to adjusting her tacrolimus dose due to renal failure and recent pneumonia. will decrease FK to 1mg bid. Await FK level from yesterday 4. Pancytopenia hemoglobin down to 6.9 g. Transfuse 1 unit packed red cells 5. Failure to thrive with severe protein calorie malnutrition. Albumin at 1.4. She would benefit from TPN therapy. 6. History of CMV stomach ulcers with GI bleed. 7. Due to patient's complicated medical condition and long turnaround time for her antirejection medication levels, would recommend to transfer her to [facility]. Discussed with transplant camp recreation specialist and hospitalist.
[2017-07-04] MEDS: Acetaminophen 325 MG Tablet 650 MG PO (12:06)
--- NOTE | 2017-07-04 15:10 | PCM.PROGNOTE ---
<Ruby Boyd - Last Filed: 07/04/17 15:27> Subjective: Patient seen and examined. Complains of shortness of breath and chest pain. Patient states she has had poor oral intake due to abdominal pain with significant oral intake. She also states she has had poor appetite. Patient follows with [facility] due to history of kidney transplant. Nephrology discussing transfer to [facility], patient aware. - Physical Exam General: Alert, Oriented x3, Cooperative, No apparent distress HEENT: Atraumatic, PERRLA, EOMI, Normocephalic Lungs: Clear to auscultation, Diminished Cardiovascular: Regular Rhythm, Normal S1, Normal S2, No murmurs, Tachycardic Abdomen: Bowel Sounds Present, Soft, Non Tender, Non-Distended Extremities: No clubbing, No cyanosis, No edema, Capillary Refill Less than 3 Seconds Skin: No rashes Musculoskeletal: No Tenderness to Palpation of Joints or Extremities, Cachexia Neurological: Cranial nerves II-XII grossly intact, Neuro grossly intact Psych/Mental Status: Normal Affect, Appropriate Vital Signs Temp Pulse Resp BP Pulse Ox 97.9 F 111 H 12 105/75 94 07/04/17 14:33 07/04/17 14:33 07/04/17 14:33 07/04/17 14:33 07/04/17 14:33 Oxygen Flow Rate 5 Oxygen Delivery Method Nasal Cannula Weight: 31.4 kg Body Mass Index (BMI) 13.7 Intake and Output for Last 24 Hours 07/02/17 07/03/17 07/04/17 23:59 23:59 23:59 Intake Total 1437 / 1437 2003 Output Total 400 / 400 Balance 1037 / 1037 2003 Microbiology Past 72 Hours 07/03/17 23:20 Legionella Antigen - Final Urine, Clean Catch 07/03/17 23:20 Streptococcus pneumoniae Antigen (M - Final Urine, Clean Catch Streptococcus pneumonia Ag Laboratory Tests Past 24 Hrs 07/03/17 07/04/17 07/04/17 17:05 01:15 06:23 WBC 6.8 RBC 1.77 L Hgb 6.7 L Hct 19.8 L MCV 111.9 H MCH 37.9 H MCHC 33.8 RDW 14.5 RDW Differential 56.0 H Plt Count 51 L MPV 11.8 Sodium Potassium Chloride Carbon Dioxide BUN Creatinine Estim Creat Clear Calc Est GFR (MDRD) Af Amer Est GFR (MDRD) Non-Af BUN/Creatinine Ratio Glucose Lactic Acid 1.8 Calcium Phosphorus Iron Ferritin Albumin MRSA (PCR) Negative Blood Type Antibody Screen Crossmatch 07/04/17 07/04/17 07/04/17 06:23 11:47 11:47 WBC RBC Hgb Hct MCV MCH MCHC RDW RDW Differential Plt Count MPV Sodium 138 Potassium 4.7 Chloride 107 Carbon Dioxide 21.0 BUN 63 H Creatinine 4.50 H Estim Creat Clear Calc 7.83 Est GFR (MDRD) Af Amer 14 L Est GFR (MDRD) Non-Af 11 L BUN/Creatinine Ratio 14.0 Glucose 76 Lactic Acid Calcium 7.0 L Phosphorus 5.2 H Iron 9 L Ferritin 1071 H Albumin 1.5 L MRSA (PCR) Blood Type Cancelled B POSITIVE Antibody Screen Cancelled NEGATIVE Crossmatch See Detail See Detail Assessment/Plan 1. Acute sepsis secondary to Streptococcus pneumoniae and streptococcal bacteremia-urine, blood cultures both positive for Streptococcus pneumonia. Chest x-ray on admission showed left lower lobe consolidation and small left pleural effusion, right basilar infiltrate. Continue IV Rocephin and azithromycin. Continue supplemental oxygen to maintain O2 at or above 90%. Continue IV fluids. Albuterol/DuoNeb aerosols. IS. 2. Acute hypoxia secondary to #1 3. Acute kidney injury on chronic kidney disease stage IV-status post left kidney transplant-nephrology consulted. Patient follows with nephrology at [facility]. Nephrology managing her tacrolimus which was decreased given renal failure and pneumonia. Continue prednisone. Tacrolimus level pending. Transfer to [facility] pending given history of kidney transplant which took place at their facility. Patient may require dialysis in the future if kidney function does not improve. 4. Hypertension-stable, continue home regimen. 5. Anemia of chronic disease-hemoglobin 6.7. The patient's baseline hemoglobin is 7-8. Transfuse 1 unit packed red blood cells. IV iron ?1. Monitor CBC. 6. History of CMV stomach ulcers/history of GI bleed-continue PPI. Patient denies blood in stool. Stool pending for occult blood. 7. Pancytopenia-chronic secondary to CRF. Monitor CBC. 8. Severe protein calorie malnutrition-BMI 14. Patient may require parenteral nutrition if not able to intake adequate calories. Consult nutrition/dietitian. DVT prophylaxis-heparin subcu. Discharge planning: Transfer to [facility] pending bed availability. This patient was seen by RUDY Stevens under the supervision of Dr. Hutchison. <Dionte Hutchison - Last Filed: 07/08/17 17:29> - Physical Exam General: Alert, Cooperative HEENT: Atraumatic, Normocephalic Lungs: Clear to auscultation, Diminished Vital Signs Temp Pulse Resp BP Pulse Ox 36.6 C 108 H 20 H 117/79 92 07/04/17 20:30 07/04/17 20:30 07/04/17 20:30 07/04/17 20:30 07/04/17 20:30 Oxygen Flow Rate 5 Oxygen Delivery Method Nasal Cannula Weight: 31.4 kg Body Mass Index (BMI) 13.7 Assessment/Plan Patient seen and examined in family. I agree with the above note. This is a 46-year-old female with pneumococcal bacteremia and pneumonia. Comp gated by the fact the patient is immunosuppressed due to her renal transplant medications. Dr. Mcdaniel notified me that she would not be able to adequately care for these mucus present medications and requested transfer to the [facility]. Spoke with the accepting physician and the patient was accepted and subsequently transferred.
--- NOTE | 2017-07-04 15:25 | PN_ITS ---
<Ruby Boyd - Last Filed: 07/04/17 15:27> Subjective: Patient seen and examined. Complains of shortness of breath and chest pain. Patient states she has had poor oral intake due to abdominal pain with significant oral intake. She also states she has had poor appetite. Patient follows with [facility] due to history of kidney transplant. Nephrology discussing transfer to [facility], patient aware. - Physical Exam General: Alert, Oriented x3, Cooperative, No apparent distress HEENT: Atraumatic, PERRLA, EOMI, Normocephalic Lungs: Clear to auscultation, Diminished Cardiovascular: Regular Rhythm, Normal S1, Normal S2, No murmurs, Tachycardic Abdomen: Bowel Sounds Present, Soft, Non Tender, Non-Distended Extremities: No clubbing, No cyanosis, No edema, Capillary Refill Less than 3 Seconds Skin: No rashes Musculoskeletal: No Tenderness to Palpation of Joints or Extremities, Cachexia Neurological: Cranial nerves II-XII grossly intact, Neuro grossly intact Psych/Mental Status: Normal Affect, Appropriate Vital Signs Temp Pulse Resp BP Pulse Ox 97.9 F 111 H 12 105/75 94 07/04/17 14:33 07/04/17 14:33 07/04/17 14:33 07/04/17 14:33 07/04/17 14:33 Oxygen Flow Rate 5 Oxygen Delivery Method Nasal Cannula Weight: 31.4 kg Body Mass Index (BMI) 13.7 Intake and Output for Last 24 Hours 07/02/17 07/03/17 07/04/17 23:59 23:59 23:59 Intake Total 1437 / 1437 2003 Output Total 400 / 400 Balance 1037 / 1037 2003 Microbiology Past 72 Hours 07/03/17 23:20 Legionella Antigen - Final Urine, Clean Catch 07/03/17 23:20 Streptococcus pneumoniae Antigen (M - Final Urine, Clean Catch Streptococcus pneumonia Ag Laboratory Tests Past 24 Hrs 07/03/17 07/04/17 07/04/17 17:05 01:15 06:23 WBC 6.8 RBC 1.77 L Hgb 6.7 L Hct 19.8 L MCV 111.9 H MCH 37.9 H MCHC 33.8 RDW 14.5 RDW Differential 56.0 H Plt Count 51 L MPV 11.8 Sodium Potassium Chloride Carbon Dioxide BUN Creatinine Estim Creat Clear Calc Est GFR (MDRD) Af Amer Est GFR (MDRD) Non-Af BUN/Creatinine Ratio Glucose Lactic Acid 1.8 Calcium Phosphorus Iron Ferritin Albumin MRSA (PCR) Negative Blood Type Antibody Screen Crossmatch 07/04/17 07/04/17 07/04/17 06:23 11:47 11:47 WBC RBC Hgb Hct MCV MCH MCHC RDW RDW Differential Plt Count MPV Sodium 138 Potassium 4.7 Chloride 107 Carbon Dioxide 21.0 BUN 63 H Creatinine 4.50 H Estim Creat Clear Calc 7.83 Est GFR (MDRD) Af Amer 14 L Est GFR (MDRD) Non-Af 11 L BUN/Creatinine Ratio 14.0 Glucose 76 Lactic Acid Calcium 7.0 L Phosphorus 5.2 H Iron 9 L Ferritin 1071 H Albumin 1.5 L MRSA (PCR) Blood Type Cancelled B POSITIVE Antibody Screen Cancelled NEGATIVE Crossmatch See Detail See Detail Assessment/Plan 1. Acute sepsis secondary to Streptococcus pneumoniae and streptococcal bacteremia-urine, blood cultures both positive for Streptococcus pneumonia. Chest x-ray on admission showed left lower lobe consolidation and small left pleural effusion, right basilar infiltrate. Continue IV Rocephin and azithromycin. Continue supplemental oxygen to maintain O2 at or above 90%. Continue IV fluids. Albuterol/DuoNeb aerosols. IS. 2. Acute hypoxia secondary to #1 3. Acute kidney injury on chronic kidney disease stage IV-status post left kidney transplant-nephrology consulted. Patient follows with nephrology at [facility]. Nephrology managing her tacrolimus which was decreased given renal failure and pneumonia. Continue prednisone. Tacrolimus level pending. Transfer to [facility] pending given history of kidney transplant which took place at their facility. Patient may require dialysis in the future if kidney function does not improve. 4. Hypertension-stable, continue home regimen. 5. Anemia of chronic disease-hemoglobin 6.7. The patient's baseline hemoglobin is 7-8. Transfuse 1 unit packed red blood cells. IV iron ?1. Monitor CBC. 6. History of CMV stomach ulcers/history of GI bleed-continue PPI. Patient denies blood in stool. Stool pending for occult blood. 7. Pancytopenia-chronic secondary to CRF. Monitor CBC. 8. Severe protein calorie malnutrition-BMI 14. Patient may require parenteral nutrition if not able to intake adequate calories. Consult nutrition/dietitian. DVT prophylaxis-heparin subcu. Discharge planning: Transfer to [facility] pending bed availability. This patient was seen by RUDY Stevens under the supervision of Dr. Hutchison. <Dionte Hutchison - Last Filed: 07/08/17 17:29> - Physical Exam General: Alert, Cooperative HEENT: Atraumatic, Normocephalic Lungs: Clear to auscultation, Diminished Vital Signs Temp Pulse Resp BP Pulse Ox 36.6 C 108 H 20 H 117/79 92 07/04/17 20:30 07/04/17 20:30 07/04/17 20:30 07/04/17 20:30 07/04/17 20:30 Oxygen Flow Rate 5 Oxygen Delivery Method Nasal Cannula Weight: 31.4 kg Body Mass Index (BMI) 13.7 Assessment/Plan Patient seen and examined in family. I agree with the above note. This is a 46-year-old female with pneumococcal bacteremia and pneumonia. Comp gated by the fact the patient is immunosuppressed due to her renal transplant medications. Dr. Mcdaniel notified me that she would not be able to adequately care for these mucus present medications and requested transfer to the [facility]. Spoke with the accepting physician and the patient was accepted and subsequently transferred.
--- NOTE | 2017-07-04 15:27 | PCM.DC.SUM ---
<Ruby Boyd - Last Filed: 07/04/17 15:31> Discharge Date and Diagnosis - Problem List Patient Problems: Active and Suspected Problems Sepsis (Acute) Pneumonia, bacterial (Acute) JENNIFFER (acute kidney injury) (Acute) Date of Admission: 07/03/17 Date of Discharge: 07/04/17 - Primary Discharge Diagnosis Active and Suspected Problems 1. Acute sepsis secondary to Streptococcus pneumoniae and streptococcal bacteremia 2. Acute hypoxia secondary to #1 3. Acute kidney injury on chronic kidney disease stage IV status post left kidney transplant 4. Acute on chronic pancytopenia 5. Severe protein calorie malnutrition - Secondary Discharge Diagnosis Chronic Problems CKD (chronic kidney disease) stage 4, GFR 15-29 ml/min (Chronic) History of renal transplant (Chronic) History of gastric cancer (Chronic) Essential hypertension (Chronic) Anemia, chronic renal failure (Chronic) Hospital Course and Treatment Imaging Results: Diagnostic Data Chest X-Ray 07/03/17 12:24 IMPRESSION: Left lower lobe consolidation and small left pleural effusion. Right basilar infiltrate. Follow-up is recommended. Electronically Signed: Vikas Haney MD at 12:52 EST Tel [phone], Service support , Dr. Mcdaniel- Nephrology Operations: None Procedures: None Summary of Care Provided: Patient is a 46-year-old female admitted 07/03/2017 due to chest pain, shortness of breath. She has a past medical history of hypertension, chronic kidney disease stage IV, status post renal transplant, history of CMV stomach ulcers. 1. Acute sepsis secondary to Streptococcus pneumoniae and streptococcal bacteremia-urine, blood cultures both positive for Streptococcus pneumonia. Chest x-ray on admission showed left lower lobe consolidation and small left pleural effusion, right basilar infiltrate. Continue IV Rocephin and azithromycin. Continue supplemental oxygen to maintain O2 at or above 90%. Continue IV fluids. Albuterol/DuoNeb aerosols. IS. 2. Acute hypoxia secondary to #1 3. Acute kidney injury on chronic kidney disease stage IV-status post left kidney transplant-nephrology consulted. Patient follows with nephrology at [facility]. Nephrology managing her tacrolimus which was decreased given renal failure and pneumonia. Continue prednisone. Tacrolimus level pending. Transfer to [facility] pending given history of kidney transplant which took place at their facility. Patient may require dialysis in the future if kidney function does not improve. 4. Hypertension-stable, continue home regimen. 5. Anemia of chronic disease-hemoglobin 6.7. The patient's baseline hemoglobin is 7-8. Transfuse 1 unit packed red blood cells. IV iron ?1. Monitor CBC. 6. History of CMV stomach ulcers/history of GI bleed-continue PPI. Patient denies blood in stool. Stool pending for occult blood. 7. Pancytopenia-chronic secondary to CRF. Monitor CBC. 8. Severe protein calorie malnutrition-BMI 14. Patient may require parenteral nutrition if not able to intake adequate calories. Consult nutrition/dietitian. General: Alert, Oriented x3, Cooperative, No apparent distress HEENT: Atraumatic, PERRLA, EOMI, Normocephalic Lungs: Clear to auscultation, Diminished Cardiovascular: Regular Rhythm, Normal S1, Normal S2, No murmurs, Tachycardic Abdomen: Bowel Sounds Present, Soft, Non Tender, Non-Distended Extremities: No clubbing, No cyanosis, No edema, Capillary Refill Less than 3 Seconds Skin: No rashes Musculoskeletal: No Tenderness to Palpation of Joints or Extremities, Cachexia Neurological: Cranial nerves II-XII grossly intact, Neuro grossly intact Psych/Mental Status: Normal Affect, Appropriate Patient seen and examined prior to discharge. Physical assessment as noted above. Patient is stable for transfer to [facility]. This patient was seen by RUDY Stevens under the supervision of Dr. Hutchison. Home Medications: Medications to take at Discharge Amlodipine [Norvasc] 2.5 mg PO DAILY 07/03/17 Calcium Citrate/Vitamin D3 [Calcium Citrate - Vit D Caplet] 1 each PO DAILY 07/03/17 Cholecalciferol (Vitamin D3) [Vitamin D] 50,000 unit PO FR 07/03/17 Colestipol Tablet [Colestid Tablet] 1 gm PO BID 07/03/17 Cyanocobalamin [Vitamin B12] 1,000 mcg IM Q30D 07/03/17 Dronabinol [Marinol] 2.5 mg PO 4X/DAY 07/03/17 Escitalopram Oxalate [Lexapro] 10 mg PO QODAY 07/03/17 Esomeprazole Mag Trihydrate [Nexium] 40 mg PO DAILY 07/03/17 Gabapentin [Neurontin] 300 mg PO BIDCM 07/03/17 Levonorgestrel [Mirena] 1 each IY 07/03/17 Lipase/Protease/Amylase [Creon Dr 12,000 Units Capsule] 1 each PO BID 07/03/17 Multivit,Calc,Mins/Iron/Folic [Therapeutic-M Tablet] 1 each PO DAILY 07/03/17 Oxycodone [Oxyir] 5 mg PO Q8H PRN 07/03/17 Polyethylene Glycol 3350 [Miralax] 17 gm PO DAILY PRN PRN 07/03/17 Prednisone 5 mg PO DAILY 07/03/17 Vits [Prenatabs FA] 1 tablet PO DAILY 07/03/17 Sodium Bicarbonate 650 mg PO DAILY 07/03/17 Tacrolimus [Astagraf Xl] 2 mg PO BREAKFAST 07/03/17 Tacrolimus [Envarsus Xr] 1 mg PO DINNER 07/03/17 Tizanidine HCl [Zanaflex] 4 mg PO Q6H PRN 07/03/17 Primary Care Physician: Deb Gregory MD [Primary Care Provider] - Within 2 Weeks Disposition: [facility] Minutes spent on discharge:: 35 Patient Condition:: Stable Meaningful Use Info Meaningful Use Diagnoses (Choose all that apply): None applicable <Dionte Hutchison - Last Filed: 07/04/17 15:50> Discharge Date and Diagnosis - Primary Discharge Diagnosis Active and Suspected Problems Sepsis (Acute) Pneumonia, bacterial (Acute) JENNIFFER (acute kidney injury) (Acute) - Secondary Discharge Diagnosis Chronic Problems CKD (chronic kidney disease) stage 4, GFR 15-29 ml/min (Chronic) History of renal transplant (Chronic) History of gastric cancer (Chronic) Essential hypertension (Chronic) Anemia, chronic renal failure (Chronic) Hospital Course and Treatment Operations: None Procedures: None Summary of Care Provided: pt seen and examined independently. I agree with the above note by the TRAFFIC REPRESENTATIVE. Data reviewed. Female presents with shortness of breath. Patient was found to be positive for pneumococcal antigen and as well as a positive chest x-ray and positive blood cultures for pneumococcal pneumonia. Patient was started on Rocephin and azithromycin. Patient was hemodynamically stable. Patient is renal transplant patient and was seen by nephrology. Nephrology felt that the patient be better suited to being managed by her transplant doctors and so measures were made to transfer the patient to the [facility]. I spoke with the transfer line spoke with the accepting medical physician as well. The patient be transferred once a bed has become available. Patient did also have acute anemia hemoglobin dropped down to 6.7. Patient was ordered to be transfused as yet to receive blood products yet. Additionally, the patient's is just been hospitalized today for what looks like pneumonia as well. Unclear if it is the same type of pneumonia at the patient has or not. [] Vital Signs Height 1.5 m Weight: 31.4 kg Weight in Pounds 69.2 lbs Pulse Ox 92 Temperature 36.6 C Pulse Rate 104 Respiratory Rate 17 Blood Pressure 104/81 Blood Pressure Position Semi-Fowlers Vision is frail in appearance rather ashen. Heart is regular rate and rhythm plus S1-S2 without any murmurs gallops or rubs. Lungs are diminished bilaterally with some crackles in the right and left lower lobes. Abdomen is soft nontender nondistended with no hepatosplenomegaly. Extremities are without any cyanosis clubbing or edema. No knee effusions no calf tenderness. Discharge Diet: Renal Diet Call your doctor if you observe: Fever of 101 or Higher Disposition: Acute care Hospital Patient Condition:: Stable Meaningful Use Info Meaningful Use Diagnoses (Choose all that apply): None applicable Code Visit Inpatient E&M: 77975 Disch Hosp
--- NOTE | 2017-07-04 15:31 | DS.PCM_ITS ---
<Ruby Boyd - Last Filed: 07/04/17 15:31> Discharge Date and Diagnosis - Problem List Patient Problems: Active and Suspected Problems Sepsis (Acute) Pneumonia, bacterial (Acute) JENNIFFER (acute kidney injury) (Acute) Date of Admission: 07/03/17 Date of Discharge: 07/04/17 - Primary Discharge Diagnosis Active and Suspected Problems 1. Acute sepsis secondary to Streptococcus pneumoniae and streptococcal bacteremia 2. Acute hypoxia secondary to #1 3. Acute kidney injury on chronic kidney disease stage IV status post left kidney transplant 4. Acute on chronic pancytopenia 5. Severe protein calorie malnutrition - Secondary Discharge Diagnosis Chronic Problems CKD (chronic kidney disease) stage 4, GFR 15-29 ml/min (Chronic) History of renal transplant (Chronic) History of gastric cancer (Chronic) Essential hypertension (Chronic) Anemia, chronic renal failure (Chronic) Hospital Course and Treatment Imaging Results: Diagnostic Data Chest X-Ray 07/03/17 12:24 IMPRESSION: Left lower lobe consolidation and small left pleural effusion. Right basilar infiltrate. Follow-up is recommended. Electronically Signed: Vikas Haney MD at 12:52 EST Tel [phone], Service support , Dr. Mcdaniel- Nephrology Operations: None Procedures: None Summary of Care Provided: Patient is a 46-year-old female admitted 07/03/2017 due to chest pain, shortness of breath. She has a past medical history of hypertension, chronic kidney disease stage IV, status post renal transplant, history of CMV stomach ulcers. 1. Acute sepsis secondary to Streptococcus pneumoniae and streptococcal bacteremia-urine, blood cultures both positive for Streptococcus pneumonia. Chest x-ray on admission showed left lower lobe consolidation and small left pleural effusion, right basilar infiltrate. Continue IV Rocephin and azithromycin. Continue supplemental oxygen to maintain O2 at or above 90%. Continue IV fluids. Albuterol/DuoNeb aerosols. IS. 2. Acute hypoxia secondary to #1 3. Acute kidney injury on chronic kidney disease stage IV-status post left kidney transplant-nephrology consulted. Patient follows with nephrology at [facility]. Nephrology managing her tacrolimus which was decreased given renal failure and pneumonia. Continue prednisone. Tacrolimus level pending. Transfer to [facility] pending given history of kidney transplant which took place at their facility. Patient may require dialysis in the future if kidney function does not improve. 4. Hypertension-stable, continue home regimen. 5. Anemia of chronic disease-hemoglobin 6.7. The patient's baseline hemoglobin is 7-8. Transfuse 1 unit packed red blood cells. IV iron ?1. Monitor CBC. 6. History of CMV stomach ulcers/history of GI bleed-continue PPI. Patient denies blood in stool. Stool pending for occult blood. 7. Pancytopenia-chronic secondary to CRF. Monitor CBC. 8. Severe protein calorie malnutrition-BMI 14. Patient may require parenteral nutrition if not able to intake adequate calories. Consult nutrition/dietitian. General: Alert, Oriented x3, Cooperative, No apparent distress HEENT: Atraumatic, PERRLA, EOMI, Normocephalic Lungs: Clear to auscultation, Diminished Cardiovascular: Regular Rhythm, Normal S1, Normal S2, No murmurs, Tachycardic Abdomen: Bowel Sounds Present, Soft, Non Tender, Non-Distended Extremities: No clubbing, No cyanosis, No edema, Capillary Refill Less than 3 Seconds Skin: No rashes Musculoskeletal: No Tenderness to Palpation of Joints or Extremities, Cachexia Neurological: Cranial nerves II-XII grossly intact, Neuro grossly intact Psych/Mental Status: Normal Affect, Appropriate Patient seen and examined prior to discharge. Physical assessment as noted above. Patient is stable for transfer to [facility]. This patient was seen by RUDY Stevens under the supervision of Dr. Hutchison. Home Medications: Medications to take at Discharge Amlodipine [Norvasc] 2.5 mg PO DAILY 07/03/17 Calcium Citrate/Vitamin D3 [Calcium Citrate - Vit D Caplet] 1 each PO DAILY Cholecalciferol (Vitamin D3) [Vitamin D] 50,000 unit PO FR 07/03/17 Colestipol Tablet [Colestid Tablet] 1 gm PO BID 07/03/17 Cyanocobalamin [Vitamin B12] 1,000 mcg IM Q30D 07/03/17 Dronabinol [Marinol] 2.5 mg PO 4X/DAY 07/03/17 Escitalopram Oxalate [Lexapro] 10 mg PO QODAY 07/03/17 Esomeprazole Mag Trihydrate [Nexium] 40 mg PO DAILY 07/03/17 Gabapentin [Neurontin] 300 mg PO BIDCM 07/03/17 Levonorgestrel [Mirena] 1 each IY 07/03/17 Lipase/Protease/Amylase [Creon Dr 12,000 Units Capsule] 1 each PO BID 07/03/17 Multivit,Calc,Mins/Iron/Folic [Therapeutic-M Tablet] 1 each PO DAILY 07/03/17 Oxycodone [Oxyir] 5 mg PO Q8H PRN 07/03/17 Polyethylene Glycol 3350 [Miralax] 17 gm PO DAILY PRN PRN 07/03/17 Prednisone 5 mg PO DAILY 07/03/17 Vits [Prenatabs FA] 1 tablet PO DAILY 07/03/17 Sodium Bicarbonate 650 mg PO DAILY 07/03/17 Tacrolimus [Astagraf Xl] 2 mg PO BREAKFAST 07/03/17 Tacrolimus [Envarsus Xr] 1 mg PO DINNER 07/03/17 Tizanidine HCl [Zanaflex] 4 mg PO Q6H PRN 07/03/17 Primary Care Physician: Deb Gregory MD [Primary Care Provider] - Within 2 Weeks Disposition: [facility] Minutes spent on discharge:: 35 Patient Condition:: Stable Meaningful Use Info Meaningful Use Diagnoses (Choose all that apply): None applicable <Dionte Hutchison - Last Filed: 07/04/17 15:50> Discharge Date and Diagnosis - Primary Discharge Diagnosis Active and Suspected Problems Sepsis (Acute) Pneumonia, bacterial (Acute) JENNIFFER (acute kidney injury) (Acute) - Secondary Discharge Diagnosis Chronic Problems CKD (chronic kidney disease) stage 4, GFR 15-29 ml/min (Chronic) History of renal transplant (Chronic) History of gastric cancer (Chronic) Essential hypertension (Chronic) Anemia, chronic renal failure (Chronic) Hospital Course and Treatment Operations: None Procedures: None Summary of Care Provided: pt seen and examined independently. I agree with the above note by the PLAN REP. Data reviewed. Female presents with shortness of breath. Patient was found to be positive for pneumococcal antigen and as well as a positive chest x-ray and positive blood cultures for pneumococcal pneumonia. Patient was started on Rocephin and azithromycin. Patient was hemodynamically stable. Patient is renal transplant patient and was seen by nephrology. Nephrology felt that the patient be better suited to being managed by her transplant doctors and so measures were made to transfer the patient to the [facility]. I spoke with the transfer line spoke with the accepting medical physician as well. The patient be transferred once a bed has become available. Patient did also have acute anemia hemoglobin dropped down to 6.7. Patient was ordered to be transfused as yet to receive blood products yet. Additionally, the patient's is just been hospitalized today for what looks like pneumonia as well. Unclear if it is the same type of pneumonia at the patient has or not. [] Vital Signs Height 1.5 m Weight: 31.4 kg Weight in Pounds 69.2 lbs Pulse Ox 92 Temperature 36.6 C Pulse Rate 104 Respiratory Rate 17 Blood Pressure 104/81 Blood Pressure Position Semi-Fowlers Vision is frail in appearance rather ashen. Heart is regular rate and rhythm plus S1-S2 without any murmurs gallops or rubs. Lungs are diminished bilaterally with some crackles in the right and left lower lobes. Abdomen is soft nontender nondistended with no hepatosplenomegaly. Extremities are without any cyanosis clubbing or edema. No knee effusions no calf tenderness. Discharge Diet: Renal Diet Call your doctor if you observe: Fever of 101 or Higher Disposition: Acute care Hospital Patient Condition:: Stable Meaningful Use Info Meaningful Use Diagnoses (Choose all that apply): None applicable Code Visit Inpatient E&M: 45549 Disch Hosp
[2017-07-04] MEDS: 0.9% NaCl Peripheral Flush Adult/Peds IV (17:12)
--- NOTE | 2017-07-04 20:04 | NURSING ---
Report called to MONTY Vera at [facility]
--- NOTE | 2017-07-12 15:50 | ED.VISSUMM ---
- ER Visit Summary Date of Service: 07/12/17 Chief Complaint: Chest pain and shortness of breath History of Present Illness: The patient is a 46 F who presents with chest pain shortness of breath with onset on Friday. Patient was not able to be specific with regards to whether the onset was sudden intermittent etc. She is very vague and cannot localize the pain nor quantitate or qualitate the pain. She does report weight loss and decrease intake the past 2 days. She has a history of gastric carcinoma with partial gastrectomy 2010. This was complicated by DVT requiring placement of [place] filter. 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 Past history of GERD, hypertension, renal recipient, gastric carcinoma and depression. She receives her care at the [facility]. Physical Examination: Vital signs remarkable blood pressure 97/73 temperature of 97.7 heart rate of 90 with a respiratory rate of 26 and pulse ox 97%. She appears pale and ashen. She is very thin versus cachectic. HEENT exam is remarkable for pale conjunctival and dry mucosa otherwise normal. Heart is regular without murmur, gallop or rub. Lungs are clear to auscultation with diminished breath sounds. Abdomen is soft nontender with normal bowel sounds. Lower extremity exam reveals no tenderness edema and no asymmetry. She does appear pale. Neuro exam is nonfocal. She has a depressed affect. Test Results: EKG sinus rhythm with no acute ischemic changes. Monitor revealed rare ectopic beat. Chest x-ray reveals bilateral infiltrates. White count is normal with an H&H 7.9 and 21.7. There are 89 segs no bands 7 lymphs. Glucose is 67 and creatinine is 5.48. Baseline is 3.[address] [facility] records. Lactate elevated 2.9. Troponin is less than 0.02. Emergency Department Course and Treatment: Since patient was hypotensive she received 1 L of normal saline wide open. Since she has not been hospitalized recently she was treated for community acquired bilateral pneumonia with Rocephin and Zithromax. Her workup included chest x-ray, EKG and appropriate blood work to evaluate for cardiac versus respiratory versus other etiology of her chest pain. BMP was obtained since she has history of renal failure and is a kidney recipient to evaluate if there is any endorgan injury. Call was placed to her enrollment coordinator who was informed that she would be admitted to the ICU here. She asked for follow-up by hospitalist who was evaluating her. Treatment Plan: For Graciela acquired pneumonia and fluid bolus and continued monitoring in ICU setting. Disposition: Admit to the intensive care unit Impression: 1. Bilateral community acquired pneumonia 2. Severe sepsis 3. Hypotension that is fluid responsive 4. Immune suppressed secondary to renal recipient 5. Acute kidney injury 5. Anemia of chronic illness 7. History of hypertension This note was generated with [employer] dictation software. It may contain incorrect words, spelling, and punctuation that were not noted in review of the chart prior to signing ED Disposition - Plan for ED Patient: Disposition: Acute Care Hospital [facility] Chief Complaint: Shortness of Breath
--- NOTE | 2017-07-12 15:56 | ED.DCSUM_ITS ---
- ER Visit Summary Date of Service: 07/12/17 Chief Complaint: Chest pain and shortness of breath History of Present Illness: The patient is a 46 F who presents with chest pain shortness of breath with onset on Friday. Patient was not able to be specific with regards to whether the onset was sudden intermittent etc. She is very vague and cannot localize the pain nor quantitate or qualitate the pain. She does report weight loss and decrease intake the past 2 days. She has a history of gastric carcinoma with partial gastrectomy 2010. This was complicated by DVT requiring placement of [place] filter. 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 Past history of GERD, hypertension, renal recipient, gastric carcinoma and depression. She receives her care at the [facility]. Physical Examination: Vital signs remarkable blood pressure 97/73 temperature of 97.7 heart rate of 90 with a respiratory rate of 26 and pulse ox 97%. She appears pale and ashen. She is very thin versus cachectic. HEENT exam is remarkable for pale conjunctival and dry mucosa otherwise normal. Heart is regular without murmur, gallop or rub. Lungs are clear to auscultation with diminished breath sounds. Abdomen is soft nontender with normal bowel sounds. Lower extremity exam reveals no tenderness edema and no asymmetry. She does appear pale. Neuro exam is nonfocal. She has a depressed affect. Test Results: EKG sinus rhythm with no acute ischemic changes. Monitor revealed rare ectopic beat. Chest x-ray reveals bilateral infiltrates. White count is normal with an H&H 7.9 and 21.7. There are 89 segs no bands 7 lymphs. Glucose is 67 and creatinine is 5.48. Baseline is 3.9 per [facility] records. Lactate elevated 2.9. Troponin is less than 0.02. Emergency Department Course and Treatment: Since patient was hypotensive she received 1 L of normal saline wide open. Since she has not been hospitalized recently she was treated for community acquired bilateral pneumonia with Rocephin and Zithromax. Her workup included chest x-ray, EKG and appropriate blood work to evaluate for cardiac versus respiratory versus other etiology of her chest pain. BMP was obtained since she has history of renal failure and is a kidney recipient to evaluate if there is any endorgan injury. Call was placed to her pilates coordinator who was informed that she would be admitted to the ICU here. She asked for follow-up by hospitalist who was evaluating her. Treatment Plan: For Graciela acquired pneumonia and fluid bolus and continued monitoring in ICU setting. Disposition: Admit to the intensive care unit Impression: 1. Bilateral community acquired pneumonia 2. Severe sepsis 3. Hypotension that is fluid responsive 4. Immune suppressed secondary to renal recipient 5. Acute kidney injury 5. Anemia of chronic illness 7. History of hypertension This note was generated with [employer] dictation software. It may contain incorrect words, spelling, and punctuation that were not noted in review of the chart prior to signing ED Disposition - Plan for ED Patient: Disposition: Acute Care Hospital [facility] Chief Complaint: Shortness of Breath
== END 2017-07-04 21:35 | disposition short-term general hospital (02) | DRG 871 ==
LOC: ED 13:17 → PCU 15:25
PROVIDERS: Hospitalist; Admitting Provider Hospitalist; Emergency Provider Emergency Medicine; Family Provider Internal Medicine; PCP Internal Medicine
DX: A40.3 Sepsis due to Streptococcus pneumoniae (principal); E43 Unspecified severe protein-calorie malnutrition; D61.818 Other pancytopenia; N17.9 Acute kidney failure, unspecified; J13 Pneumonia due to Streptococcus pneumoniae; N18.4 Chronic kidney disease, stage 4 (severe); Z94.0 Kidney transplant status; Z68.1 Body mass index [BMI] 19.9 or less, adult; Z79.899 Other long term (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 therapy; Z87.891 Personal history of nicotine dependence; Z85.028 Personal history of other malignant neoplasm of stomach; R09.02 Hypoxemia; I12.9 Hypertensive chronic kidney disease with stage 1 through stage 4 chronic kidney disease, or unspecified chronic kidney disease; D63.1 Anemia in chronic kidney disease; Z87.19 Personal history of other diseases of the digestive system
CPT/HCPCS: 36415; 71046; 80048; 80069; 80197; 82728; 83540; 83605; 84484; 85025; 85027; 86850; 86900; 86920; 86922; 87040; 87077; 87149; 87186; 87449; 87641; 93005; 94640; 94762; 97802; 99285; J1756; J7030; P9040; A4216; J3420

== ENCOUNTER 2018-03-11 14:08 | Outpatient (RCR) | payer OTHER, SELFPAY ==
--- NOTE | 2018-03-18 09:02 | HP.FCE ---
HP OT Functional Capacity Eval - Task Lift Floor (Occasional 1-33% of Day): 35# Floor (Frequent 34-66% of Day): 18# Floor (Constant 67-100% of Day): 7# Floor PDL: Light-Medium Knee (Occasional 1-33% of Day): 35# Knee (Frequent 34-66% of Day): 18# Knee (Constant 67-100% of Day): 7# Knee PDL: Light-Medium Waist (Occasional 1-33% of Day): 30# Waist (Frequent 34-66% of Day): 15# Waist (Constant 67-100% of Day): 6# Waist PDL: Light-Medium Shoulder (Occasional 1-33% of Day): 20# Shoulder (Frequent 34-66% of Day): 10# Shoulder (Constant 67-100% of Day): N/A Shoulder PDL: Light Overhead (Occasional 1-33% of Day): 10 Overhead (Frequent 34-66% of Day): N/A Overhead (Constant 67-100% of Day): N/A Overhead PDL: Sedentary - Work Activity/Posture Bending: Frequent Ability (34-66% of day) Squatting: Occasional Ability (1-33% of day) Comments: With use of external support. Kneeling: Occasional Ability (1-33% of day) Comments: with use of external support Reaching out: Frequent Ability (34-66% of day) Reaching up: Frequent Ability (34-66% of day) Sitting: Frequent Ability (34-66% of day) Walking: Frequent Ability (34-66% of day) Standing: Frequent Ability (34-66% of day) - Reference Duration Sedentary Sedentary Light Light Light Medium Medium Medium Heavy Very Heavy Heavy Occasional (0-33% of day) Frequent (34-66% of day) Constant (67-100% of day) 10 # Negligible Negligible 15 # 8 # Negligible 20 # 10# Negli. 35 # 18 # 7 # 50 # 25 # 10 # 75 # 100 # >100 # 38 # 50 # >50 # 15 # 20 # >20 # - Patient Information Height: 1.5 m Weight:: 34.019 kg Hand Dominance: right - Medical History Medical History Including Restrictions: Pt states she was in good health until she was dx with stomach cancer. Pt stated 2000 near total gastrectomy due to stomach cancer. pt states she did have chemo and radiation for cancer tx following sx. Pt states her left kidney was compromised during radiation and she underwent a left kidney transplant in 2009. 2009 pt states she recovered fair, but due to her stomach issues she struggled with staying hydrated. pt states November 2016 she was dx with bleeding ulcer, pt did have to get platelets during this time staying in the hospital for 11 days. pt states she has had. pt states doctors are monitoring he kidney function as a kidney transplant last 7-10 years and she is 8 years with this kidney. Pt states she suffered from a virus CMV (Cytomegalovirus) in 2017 and her infections disease doctor placed her on medical disability due to her medical conditions. - Diagnoses Diagnoses: 2000 Stomach cancer. 2009 Kidney transplant. 2016 CMV Cytomegalovirus - Symptoms Symptoms: states daily she has stomach discomfort with eating and drinking. small eating ability. acid reflux. Fatigue. Stomach pain. Dehydration - Pain Pain: 0/10 - Work History Work History: Pt state she was last employed at [employer]. pt states she worked there for about 23 years. 2016 was her last day. 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 pt states she did a lot of sitting and looking through a microscope at [employer] and would repair what was needed. pt states she worked 40 hours a week. Pt states after she contracted a virus she was placed on disability from her infectious disease dr. - Behavioral Behavioral: Pt was cooperative and pleasant. - ADLS ADLS: Pt states she lives in a two-story home with her . Pt states she is ind. with all BADLS and IADls. pt states she drives and does her own grocery shopping. Pt states her does all the yard work. pt states she does have a washer and dryer on the main floor that has helped her with carrying the laundry. Pt states she does adjust her activity to how fatigued she feels each day. - Physical Examination ROM: Pt demo all ROM WNL Strength: pt demo 4/5 functional strength- Right Agricultural Real Estate Agent Strength Average: 51.66 Right Agricultural Real Estate Agent Strength Percentile: 9% Left Agricultural Real Estate Agent Strength Average: 56.00 Left Agricultural Real Estate Agent Strength Percentile: 16# Right Lateral Pinch Average: 7.00 Right Lateral Pinch Percentile: <10% Left Lateral Pinch Average: 8.66 Left Lateral Pinch Percentile: 10% Right Tripod Pinch Average: 9.33 Right Tripod Pinch Percentile: 25% Left Tripod Pinch Average: 10.00 Left Tripod Pinch Percentile: 50% Sensation: Denies Fine Motor: Denies difficulty. Balance: pt demo no loss of balance during assessment. - Non Material Handling Activities Bending: pt completed bending three times, ten times and ten times rapidly. Pt denied any pain or difficulty performing this activity. pt can bend forward on a frequent basis. Squatting: pt completed squatting three times, ten times and ten times rapidly. pt SOB following task and use of external support during squatting. pt can squat on a occasional basis with external support. Kneeling: Pt demo the ability to kneel on to her left knee three times and ten times with external support. pt was unable to complete kneeling ten times rapidly. Pt was SOB needed a break. pt can kneel on a occasional basis with external support. Reaching out/up: pt completed reaching up/out while standing three times, ten times and ten times rapidly. Pt denied any pain or difficulty performing this activity. pt can reach out/up on a frequent basis. Walking: Pt amb. with a good steady reciprical gait pattern during a 15min ambulation. Pt denied any pain or difficulty performing this activity. pt can ambulate on a frequent basis. Standing: Pt demo the ability to stand for 4 min with shifting her body weight. Sitting: Pt states she can sit for a few hours but needs to shift her body weight due to healed bed sore on her tail bone that will become uncomfortable if she can not shift her body weight. pt demo the ability to sit for 30 min with no stated or apparent discomfort. Pt can sit on a frequent basis with ability to shift her body weight. Climbing Stairs: Pt demo the ability to ascend/descend ten steps with a reciprical step pattern and no use of hand rails. Pt denied any pain or difficulty performing this activity - Dynamic Occasional Lifting Capacity Floor Lift: pt demo the ability to lift 25# comfortably and 35# maximally from floor level with good lifting mechanics. Light-Medium Physical Demand Level Knee Lift: pt demo the ability to lift 25# comfortably and 35# maximally from knee level with good lifting mechanics. Light-Medium Physical Demand Level Waist Lift: pt demo the ability to lift 15# comfortably and lift 30# maximally from waist level with good lifting mechanics. Light-Medium Physical Demand Level Shoulder Lift: pt demo the ability to lift 10# comfortably and lift 20# maximally from shoulder level with good lifting mechanics. Light Physical Demand Level Overhead Lift: pt demo the ability to lift 5# comfortably and 10# maximally from overhead level with good lifting mechanics. Sedentary Physical Demand Level. Carrying: Pt demo the ability to lift 20# for 40 feet. Pt did use her body to assist in propping box of wt. while carring. Comments: Pt completed tasks with good ability.
== END 2018-03-11 19:00 | disposition home or self-care (01) ==
LOC: OT 14:08
PROVIDERS: Family Provider Internal Medicine; PCP Internal Medicine; Referring Provider Nurse Practitioner Primary Care; Visit Provider Nurse Practitioner Primary Care
DX: Z02.71 Encounter for disability determination (principal)
CPT/HCPCS: 97750

== ENCOUNTER → 2018-04-15 11:24 | Outpatient (CLI) | payer OTHER, SELFPAY ==
[2017-07-03 15:28] VITALS: BMI 13.7
[2018-04-15 13:09] LABS: PTHIN 299.6 pg/mL (18.4-80.1)
[2018-04-16 08:53] LABS: HEPATITIS B SURFACE AG Negative (Negative); Hep B Surface Antibodies Non Reactive (.)
--- OUTSIDE RECORDS SUMMARY | 2018-06-10 20:19 | XMS RPT_ITS ---
:1970 Author Organization OHIP Care Team Providers Name Role Phone KAELYN SAVAGE (BLASTING COAL MINER) Attending Unavailable WIL TO Referring Unavailable ALEX TIAN Referring Unavailable ALEX TIAN Referring Unavailable BRYAN KOO (ACCOUNTING MACHINE MECHANIC) Referring Unavailable ALEX TIAN Referring Unavailable ALEX TIAN Referring Unavailable ALEX TIAN Referring Unavailable ANDREY BARAJAS Attending Unavailable DUY DUMAS (ACCOUNTING MACHINE MECHANIC) Attending Unavailable GANTA, WIL Referring Unavailable ASMITA, LAPMAN Referring Unavailable ASMITA, LAPMAN Referring Unavailable KATHY LOUIS A Admitting Unavailable SHANEL MCGARRY () Attending Unavailable ALEJO OLVERA Referring Unavailable SHANEL MCGRARY () Referring Unavailable DUY DUMAS (ACCOUNTING MACHINE MECHANIC) Attending Unavailable ANDREY BARAJAS Attending Unavailable ANDREY BARAJAS Referring Unavailable KERI ADAME (ACCOUNTING MACHINE MECHANIC) Attending Unavailable DAYANNA JORDAN Referring Unavailable LARD, BRYAN Ruggiero (ACCOUNTING MACHINE MECHANIC) Referring Unavailable ASMITA, LAPMAN Referring Unavailable LARD, BRYAN Ruggiero (ACCOUNTING MACHINE MECHANIC) Attending Unavailable ANDREY BARAJAS Attending Unavailable VANI BALDWIN Attending Unavailable KERI ADAME (ACCOUNTING MACHINE MECHANIC) Referring Unavailable ASMITA, LAPMAN Referring Unavailable ASMITA, LAPMAN Referring Unavailable ADAMEKERI GREEN (ACCOUNTING MACHINE MECHANIC) Referring Unavailable ASMITA, LAPMAN Referring Unavailable LARD, BRYAN Ruggiero (ACCOUNTING MACHINE MECHANIC) Referring Unavailable ASMITA, LAPMAN Referring Unavailable ASMITA, LAPMAN Attending Unavailable ASMITA, LAPMAN Referring Unavailable BALDWINVANI Attending Unavailable KERI ADAME (ACCOUNTING MACHINE MECHANIC) Referring Unavailable ASMITA, LAPMAN Referring Unavailable ASMITA, LAPMAN Referring Unavailable ASMITA, LAPMAN Referring Unavailable ASIA MENDOZA (ANDRESSA) Attending Unavailable VANI BALDWIN Referring Unavailable ASMITA, LAPMAN Referring Unavailable ASMITA, LAPMAN Referring Unavailable DUY DUMAS (ACCOUNTING MACHINE MECHANIC) Referring Unavailable LARD, BRYAN Ruggiero (ACCOUNTING MACHINE MECHANIC) Referring Unavailable ASMITA, LAPMAN Referring Unavailable ASMITA, LAPMAN Referring Unavailable LARD, BRYAN Ruggiero (ACCOUNTING MACHINE MECHANIC) Attending Unavailable HUMBERTO GOODE Referring Unavailable ASMITA, LAPMAN Referring Unavailable AUSTEN PIERSON Attending Unavailable ANDREY BARAJAS Referring Unavailable LARD, BRYAN Ruggiero (ACCOUNTING MACHINE MECHANIC) Referring Unavailable ASMITA, LAPMAN Referring Unavailable ASMITA, LAPMAN Referring Unavailable GANTA, WIL Attending Unavailable GANTA, WIL Referring Unavailable ASMITA, LAPMAN Referring Unavailable ASMITA, LAPMAN Referring Unavailable LARD, BRYAN Ruggiero (ACCOUNTING MACHINE MECHANIC) Referring Unavailable ASMITA, LAPMAN Referring Unavailable ASMITA, LAPMAN Referring Unavailable AUSTEN PIERSON Attending Unavailable AUSTEN PIERSON Referring Unavailable ASMITA, LAPMAN Referring Unavailable ASMITA, LAPMAN Referring Unavailable LARD, BRYAN Ruggiero (ACCOUNTING MACHINE MECHANIC) Referring Unavailable ANDREY BARAJAS Attending Unavailable ANDREY BARAJAS Referring Unavailable LARD, BRYAN Ruggiero (ACCOUNTING MACHINE MECHANIC) Attending Unavailable LARD, BRYAN Ruggiero (ACCOUNTING MACHINE MECHANIC) Referring Unavailable ASMITA, LAPMAN Referring Unavailable ASMITA, LAPMAN Referring Unavailable ASMITA, LAPMAN Referring Unavailable ASMITA, LAPMAN Referring Unavailable ASMITA, LAPMAN Referring Unavailable ASMITA, LAPMAN Referring Unavailable PIERSON, AUSTEN F Attending Unavailable AUSTEN PIERSON F Referring Unavailable EMIR FOWLER Attending Unavailable KERI ADAME (ACCOUNTING MACHINE MECHANIC) Referring Unavailable LARD, BYRAN Ruggiero (ACCOUNTING MACHINE MECHANIC) Referring Unavailable ASMITA, LAPMAN Attending Unavailable ASMITA, LAPMAN Referring Unavailable ASMITA, LAPMAN Referring Unavailable GANTA, WIL Referring Unavailable ADAME, AMY (ACCOUNTING MACHINE MECHANIC) Attending Unavailable GANTA, WIL Referring Unavailable GANTA, WIL Referring Unavailable ASMITA, LAPMAN Referring Unavailable ASMITA, LAPMAN Referring Unavailable GANTA, WIL Referring Unavailable GANTA, WIL Attending Unavailable LARD, BRYAN Ruggiero (ACCOUNTING MACHINE MECHANIC) Referring Unavailable NURKO, DELVIS Attending Unavailable ASMITA, LAPMAN Referring Unavailable ASMITA, LAPMAN Referring Unavailable KAELYN SAVAGE (BLASTING COAL MINER) Referring Unavailable PIERSON, AUSTEN F Referring Unavailable Martinez Jenkins Attending Unavailable Martinez Jenkins Referring Unavailable Ganta, Wil Primary Care Unavailable Ganta, Wil Primary Care Unavailable Imamura, Yoichi Admitting Unavailable Jonas, Marietta Consulting Unavailable Dionte Hutchison Attending Unavailable Imamura, Yoichi Admitting Unavailable Ganta, Wil Primary Care Unavailable Imamura, Yoichi Consulting Unavailable Paintsil, Lafayette Attending Unavailable Imamura, Yoichi Admitting Unavailable Ganta, Wil Primary Care Unavailable Marietta Mcdaniel Consulting Unavailable Dionte Hutchison Attending Unavailable Dionte Hutchison Consulting Unavailable Duy Dumas Attending Unavailable Duy Dumas Referring Unavailable Ganta, Wil Primary Care Unavailable JonasMarietta Attending Unavailable Ganta, Wil Primary Care Unavailable JonasErichMarietta Attending Unavailable Jonas, Marietta Referring Unavailable Ganta, Wil Primary Care Unavailable Alice Martinez Attending Unavailable Jonas Marietta Referring Unavailable PROBLEMS PROBLEMS DATE TYPE CONDITION / CODE ATTENDING STATUS SOURCE 04/27/2018 Unknown T86.11 - Kidney Martinez Jenkins Active [facility] / T86.11(ICD-10) Hospital Repository 04/06/2018 Active Chronic kidney DELVIS HAMEED Active [facility] disease, stage 5 / [facility] Main N18.5(ICD-10) [facility] 04/06/2018 Active Gastric ulcer, DELVIS HAMEED Active [facility] unspecified as acute [facility] Main or chronic, without [facility] hemorrhage or Repository perforation / K25.9(ICD-10) 01/23/2018 Active Vitamin B12 AUSTEN PIERSON Active [facility] deficiency anemia due [facility] to intrinsic factor [facility] deficiency / Repository D51.0(ICD-10) 12/30/2016 Active Essential (primary) AUSTEN PIERSON Active [facility] hypertension / [facility] I10(ICD-10) [facility] 12/30/2017 Active Other specified soft NA Active [facility] tissue disorders / Clinic Other M79.89(ICD-10) [facility] 12/23/2017 Active Encounter for BRYAN KOO Active [facility] screening for other L (ACCOUNTING MACHINE MECHANIC) Clinic Main disorder / [facility] Z13.89(ICD-10) Repository 12/23/2017 Active Vitamin D deficiency, BRYAN KOO Active [facility] unspecified / L (ACCOUNTING MACHINE MECHANIC) Clinic Main E55.9(ICD-10) [facility] 12/23/2017 Active Candidal esophagitis BRYAN KOO Active [facility] / B37.81(ICD-10) L (ACCOUNTING MACHINE MECHANIC) Clinic [facility] 12/23/2017 Active Chronic gastric ulcer KAVYA ANDREY Active [facility] without hemorrhage or [facility] perforation / [facility] K25.7(ICD-10) Repository 08/27/2017 Active Acquired absence of AUSTEN PIERSON Active [facility] stomach (part of) / [facility] Main Z90.3(ICD-10) [facility] 12/11/2017 Active Other specified AUSTEN PIERSON Active [facility] disorders of bone [facility] density and [facility] structure, Repository unspecified site / M85.80(ICD-10) 10/06/2017 Active Non-pressure chronic NA Active [facility] ulcer of skin of [facility] other sites with [facility] unspecified severity Repository / L98.499(ICD-10) 10/06/2017 Active Cytomegaloviral NA Active [facility] disease, unspecified Clinic Main / B25.9(ICD-10) [facility] 10/06/2017 Active Other specified AUSTEN PIERSON Active [facility] postprocedural states Clinic Main / Z98.890(ICD-10) [facility] 09/15/2017 Active Pneumonia, NA Active [facility] unspecified organism [facility] / J18.9(ICD-10) [facility] 09/15/2017 Active Shortness of breath / NA Active [facility] R06.02(ICD-10) [facility] 08/27/2017 Active Anemia in chronic NA Active [facility] kidney disease / [facility] D63.1(ICD-10) [facility] 08/27/2017 Active Chronic kidney NA Active [facility] disease, stage 4 Clinic [facility] (severe) / [facility] N18.4(ICD-10) Repository 07/05/2017 Active Chronic kidney NA Active [facility] disease, unspecified [facility] / N18.9(ICD-10) [facility] 07/05/2017 Active Personal history of NA Active [facility] other malignant [facility] neoplasm of stomach / [facility] Z85.028(ICD-10) Repository 08/20/2017 Active Other cytomegaloviral NA Active [facility] diseases / [facility] B25.8(ICD-10) [facility] 08/18/2017 Active Encounter for NA Active [facility] screening for [facility] 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 / [facility] Z13.820(ICD-10) Repository 07/25/2017 Active Encounter for NA Active [facility] screening mammogram [facility] for malignant [facility] neoplasm of breast / Repository Z12.31(ICD-10) 07/22/2017 Active Gastro-esophageal ANDREY BARAJAS Active [facility] reflux disease [facility] without esophagitis / [facility] K21.9(ICD-10) Repository 07/14/2017 Active Bacteremia / SHANEL MCGARRY Active [facility] R78.81(ICD-10) () [facility] 07/14/2017 Active Acute kidney failure, SHANEL MCGARRY Active [facility] unspecified / () [facility] N17.9(ICD-10) [facility] 07/14/2017 Active Other specified SHANEL MCGARRY Active [facility] diseases of pancreas () [facility] / K86.89(ICD-10) [facility] 07/14/2017 Active Unspecified severe SHANEL MCGARRY Active [facility] protein-calorie () [facility] malnutrition / [facility] E43(ICD-10) Repository 07/14/2017 Active Kidney transplant SHANEL MCGARRY Active [facility] status / () [facility] Z94.0(ICD-10) [facility] 07/05/2017 Active Thrombocytopenia, SHANEL MCGARRY Active [facility] unspecified / () [facility] D69.6(ICD-10) [facility] 07/04/2017 Active Acute respiratory BRANDONKATYA KEARNEYH Active [facility] failure with hypoxia () [facility] / J96.01(ICD-10) [facility] 07/04/2017 Active Acute respiratory SHANEL MCGARRY Active [facility] distress syndrome / () [facility] J80(ICD-10) [facility] 07/04/2017 Active Influenza due to [facility] novel () [facility] influenza A virus [facility] with pneumonia / Repository J09.X1(ICD-10) 07/04/2017 Active Influenza due to KATYA MCGARRYH Active [facility] other identified (MD) Clinic [facility] influenza virus with [facility] other respiratory Repository manifestations / J10.1(ICD-10) 07/04/2017 Active Other snf SHANEL MCGARRY [facility] (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 () [facility] therapy / [place] Z79.899(ICD-10) Repository 07/04/2017 Active Streptococcal [facility]ONKATYA [facility] infection, () [facility] unspecified site / [facility] A49.1(ICD-10) Repository 07/04/2017 Active Unspecified BRANDONKATYA SmithH Active [facility] streptococcus as the () Clinic [facility] cause of diseases [facility] classified elsewhere Repository / B95.5(ICD-10) 07/04/2017 Active Encounter for SHANEL MCGARRY [facility] aftercare following () [facility] kidney transplant / [place] Z48.22(ICD-10) Repository 06/23/2017 Active Unknown / DUY DUMAS Active [facility] UNK(Unknown) (ACCOUNTING MACHINE MECHANIC) Clinic Main [facility] Rep[facility] 12/04/2015 Active Chronic kidney NA Active [facility] disease, stage 3 Clinic Main (moderate) / [facility] N18.3(ICD-10) Repository 05/16/2017 Active Acute gastritis NA Active [facility] without bleeding / Clinic Other K29.00(ICD-10) [facility] Rep[facility] 05/16/2017 Active Nausea with vomiting, NA Active [facility] unspecified / Clinic Other R11.2(ICD-10) [facility] PROCEDURES PROCEDURES No Procedure Records FoundRESULTS RESULTS DISCHARGE INSTRUCTION Observed: 04/29/2018 Status: F Source: [place] 9:00 AM [facility] [place] [facility] Medical Records Department [address] [place] [address] Instructions for Home/Discharge Instructions 04/28/18 0947 MR#: [id number] Acct: [id number] Name: VAL VALVERDE Rep #: [id number] : 1970 47 From: Martinez Jenkins MD PCP: Wil To MD [place] [facility] [place] Activity: May Not Shower Lifting Restrictions: 10 pounds Call your doctor if your incision/area has: Continuous Slow Oozing, Sudden Increased Bleeding, Increased Pain/ Swelling, Increased Redness, Foul Smelling Discharge Call your doctor if you observe: Fever of 101 or Higher Suture Line Care: Avoid Pulling/Pushing, Avoid Pinching/Bending Additional Dressing/Incision Instructions:: Please keep your tunneled catheter dressings clean and dry. The dialysis center should assist with dressing changes. Allergies/Adverse Reactions: Allergies Sulfa (Sulfonamide Antibiotics) Allergy (Verified 04/27/18 17:27) Hives NSAIDS (Non-Steroidal Anti-Inflamma Adverse Reaction (Verified 04/27/18 17:27) Other Medications to take at Discharge Calcium Citrate/Vitamin D3 [Calcium Citrate - Vit D Caplet] 1 ea PO DAILY 07/03/17 Cholecalciferol (Vitamin D3) [Vitamin D3] 50,000 unit PO FR 07/03/17 Cyanocobalamin [Vitamin B12] 1,000 mcg IM Q30D 07/03/17 Dronabinol [Marinol] 2.5 mg PO 4X/DAY 07/03/17 Esomeprazole Mag Trihydrate [Nexium] 40 mg PO DAILY 07/03/17 Gabapentin [Neurontin] 300 mg PO BIDCM 07/03/17 Levonorgestrel [Mirena] 1 each IY 07/03/17 Lipase/Protease/Amylase [Creon Dr 12,000 Units Capsule] 1 ea PO BID 07/03/17 Multivit,Calc,Mins/Iron/Folic [Therapeutic-M Tablet] 1 ea PO DAILY 07/03/17 Oxycodone [Oxyir] 5 mg PO Q8H PRN 07/03/17 Polyethylene Glycol 3350 [Miralax] 17 gm PO DAILY PRN PRN 07/03/17 Prednisone 5 mg PO DAILY 07/03/17 Vits [Prenatabs FA ] 1 tab PO DAILY 07/03/17 Sodium Bicarbonate 650 mg PO DAILY 07/03/17 Tacrolimus [Astagraf Xl] 2 mg PO BREAKFAST 07/03/17 Tacrolimus [Envarsus Xr] 1 mg PO DINNER 07/03/17 Tizanidine HCl [Zanaflex] 4 mg PO Q6H 04/27/18 amlodipine 2.5 mg tablet 10 mg PO DAILY tab 04/27/18 Primary Care Physician: Wil To MD [Primary Care Provider] - Test Results: Test results from this visit will be discussed in further detail at your follow-up appointment, if applicable. Please Follow Up With: Martinez Jenkins MD - [phone] When: Further office follow-up will be scheduled after your fistula 04/29/18 0900 <Electronically signed by Martinez Jenkins MD> Date Martinez Jenkins MD CC: Wil To MD OPERATIVE REPORT Observed: 04/29/2018 Status: F Source: [place] 9:00 AM [facility] [place] [facility] Medical Records Department [address] [place] [address] Operative Report 04/28/18 1035 MR#: [id number] Acct: [id number] Name: VAL VALVERDE Rep #: [id number] : 1970 47 From: Martinez Jenkins MD PCP: Wil To MD Status: [facility] [place] [facility] [place] List (1) Renal transplant rejection Status: Acute Report of Operation Date of Procedure: 04/28/18 Pre-Operative Diagnosis: Renal transplant rejection Post-Operative Diagnosis: Same Surgery/Procedure Performed:: Right internal jugular tunneled 19 cm pre-curved palindrome catheter placement Description of Surgical Findings:: Timeout and informed consent was obtained. 47-year-old female was taken to the operating room. She was placed on the table. Ancef 2 g given intravenous preoperatively. She underwent monitored anesthesia care local anesthetic. 1% lidocaine mixed 50-50 with 0.5% Marcaine was used as local anesthetic. A total of 19 cc was used. The right neck and chest were sterilely prepped and draped. Ultrasound was used to identify the right internal jugular vein. The local was instilled under ultrasound guidance. Micropuncture needle inserted. Micropuncture wire inserted. Local was instilled down upon the chest wall. An exit site was selected. The tubing was tunneled from the chest to the neck site. Fluoroscopy demonstrated good positioning of the wire. A micropuncture sheath was placed. The dilator and wire removed. After a J-wire was placed. Serial dilatation was performed. The sheath dilator was inserted over the J-wire. The dilator wire removed. The catheter was advanced to the sheath. The sheath was split and the catheter was positioned at the SVC atrial junction. It had good curvilinear positioning. It aspirated easily. It was flushed with saline and then of heparinized saline. The neck site was closed with interrupted 5-0 Vicryl subdermal stitch. The catheter was secured to the skin with interrupted 3-0 nylon. Steri-Strip Telfa OpSite dressing applied to the neck. Silver impregnated dressing with OpSite dressing applied to the chest catheter exit site. Sponge and instrument and needle counts were reported to the surgeon to be correct. Blood loss minimal. No apparent complication. She was taken to the recovery area in satisfactory condition without apparent complication. Specimens none. Drains none. Blood loss minimal. Martinez Jenkins M.D., F.A.C.S. Type of Anesthesia:: Local MAC Anesthesiologist: Vlad Fitzgerald 04/29/18 0900 <Electronically signed by Martinez Jenkins MD> Date Martinez Jenkins MD CC: Wil To MD; Martinez Jenkins MD Signed CXR FOR LINE PLACEMENT Observed: 04/28/2018 Status: F Source: [place] 9:53 AM [facility] [place] [facility] Imaging Services [facility] [place] [address] CXR for Line Placement MR#: [id number] Acct: [id number] Name: ABRAMVAL Deangelo Rep #: [id number] : 1970 F 47 From: Vikas Haney MD PCP: iWl To MD [place] [facility] [place]: CXR for Line Placement Date of Exam: 04/28/18 Exam# [id number] Ordering Dr: Martinez Jenkins MD STUDY: X-RAY CHEST REASON FOR EXAM: Female, 47 years old. Dialysis catheter placement. TECHNIQUE: Single AP portable view of the chest. COMPARISON: Comparison is made with prior study dated July 03, 2017. FINDINGS: A right-sided double-lumen dialysis catheter has been placed. The tip is at the junction of the superior vena cava and right atrium. Small left pleural effusion with underlying infiltration and/or atelectasis. Increased markings at the right lung base suggestive of a small right pleural effusion. Normal size heart. Normal mediastinum and jon. Normal visualized pulmonary arteries. Normal visualized aortic arch and descending thoracic aorta. Normal visualized thoracic spine. Normal visualized ribs, clavicles, and shoulders. There is no demonstrated abnormality of the visualized soft tissue structures of the upper abdomen. RAD/CXR for Line Placement IMPRESSION: The tip of the double-lumen dialysis catheter is at the junction of superior vena cava and right atrium. Small left pleural effusion with underlying infiltration and/or atelectasis. Mild increased markings at the left lung base. Electronically Signed: Vikas Haney MD at 11:03 EST Tel [phone], Service support , CC: Wil To MD; Martinez Jenkins MD Culinary Assistant: Signed ,URINE Collected: 04/28/2018 Status: F Source: [place] 8:10 AM [facility] [place] [facility] Order Comment: Reason for Laboratory Test PRE-OP TYPE CODE TESTS RESULT OUT OF REFERENCE UNITS RANGE LAB L400.8000 Negative Normal HCGUQUAL Negative Result Comment: Very dilute urine specimens, as indicated by a low specific gravity, may not contain cordage sales representative levels of hCG. If is still suspected, a first morning urine specimen should be collected 48 hours later and tested. Performed By: #### [id number] #### [facility] [address] [place], [address] SURGERY VISIT REPORT Observed: 04/27/2018 Status: F Source: [place] 4:28 PM [facility] [place] [facility] [address] [place] [address] OFFICE VISIT Date of Service: 04/27/18 MR#: [id number] Acct: [id number] Name: VAL VALVERDE Rep #: [id number] : 1970 Provider: Martinez Jenkins MD Age/Sex: 47/F Location: [facility] Status: Signed Intake Vital Signs04/27/18 Height 4 ft 11.5 in 04/27/18 Weight: 77 lb Intake Visit Reasons: Fistula Placement/Tunnel Cath, Vein Mapg [facility] tbd Desk Maker Required: No Is patient in pain?: No Allergies Sulfa (Sulfonamide Antibiotics) Allergy (Verified 04/27/18 13:37) Hives NSAIDS (Non-Steroidal Anti-Inflamma Adverse Reaction (Verified 04/27/18 13:37) Other Medications Calcium Citrate/Vitamin D3 [Calcium Citrate - Vit D Caplet] 1 ea PO DAILY 07/03/17 [History Confirmed 04/27/18] Cholecalciferol (Vitamin D3) [Vitamin D] 50,000 unit PO FR 07/03/17 [History Confirmed 04/27/18] Colestipol Tablet [Colestid Tablet] 1 gm PO BID 07/03/17 [History Confirmed 04/27/18] Cyanocobalamin [Vitamin B12] 1,000 mcg IM Q30D 07/03/17 [History Confirmed 04/27/18] Dronabinol [Marinol] 2.5 mg PO 4X/DAY 07/03/17 [History Confirmed 04/27/18] Escitalopram Oxalate [Lexapro] 10 mg PO QODAY 07/03/17 [History Confirmed 07/03/17] Esomeprazole Mag Trihydrate [Nexium] 40 mg PO DAILY 07/03/17 [History Confirmed 04/27/18] Gabapentin [Neurontin] 300 mg PO BIDCM 07/03/17 [History Confirmed 04/27/18] Levonorgestrel [Mirena] 1 ea IY 07/03/17 [History] Lipase/Protease/Amylase [Karina Dallas 12,000 Units Capsule] 1 ea PO BID 07/03/17 [History Confirmed 04/27/18] Multivit,Calc,Mins/Iron/Folic [Therapeutic-M Tablet] 1 ea PO DAILY 07/03/17 [History Confirmed 04/27/18] Oxycodone [Oxyir] 5 mg PO Q8H PRN 07/03/17 [History Confirmed 04/27/18] Polyethylene Glycol 3350 [Miralax] 17 gm PO DAILY PRN PRN 07/03/17 [History Confirmed 07/03/17] Prednisone 5 mg PO DAILY 07/03/17 [History Confirmed 04/27/18] Vits [Prenatabs FA] 1 tab PO DAILY 07/03/17 [History Confirmed 04/27/18] Sodium Bicarbonate 650 mg PO DAILY 07/03/17 [History Confirmed 04/27/18] Tacrolimus [Astagraf Xl] 2 mg PO BREAKFAST 07/03/17 [History Confirmed 04/27/18] Tacrolimus [Envarsus Xr] 1 mg PO DINNER 07/03/17 [History Confirmed 04/27/18] Tizanidine HCl [Zanaflex] 4 mg PO Q6H PRN 07/03/17 [History Confirmed 04/27/18] amlodipine 2.5 mg tablet 10 mg PO DAILY tab 04/27/18 [History Confirmed 04/27/18] PFSH Medical History Renal transplant rejection (Acute) GERD (gastroesophageal reflux disease) (Acute) History of cytomegalovirus infection (Acute) history of failed renal transplant (Acute) Sepsis (Acute) Pneumonia, bacterial (Acute) JENNIFFER (acute kidney injury) (Acute) CKD (chronic kidney disease) stage 4, GFR 15-29 ml/min (Chronic) History of gastric cancer (Chronic) Essential hypertension (Chronic) Anemia, chronic renal failure (Chronic) History of gastrectomy (Acute) Surgical History History of renal transplant (Chronic) Social History Smoking Status: Former smoker second hand exposure: No alcohol intake: never substance use type: does not use caffeine: No frequency: does not exercise HPI HPI HPI: VAL VALVERDE, is a 47 F who presents to the office today for surgical consultation for placement of tunneled hemodialysis catheters as well as creation of an arteriovenous fistula. Patient is referred by Dr. Marietta Mcdaniel and a written copy of my surgical consult recommendations will be returned to her. Very complex 47-year-old female. She states that in 1999 when she had a near total gastrectomy. This was for gastric cancer. She had chemoradiation. This called regional insufficiency. She then underwent a kidney transplantation in 2009. She states that her adopted was a match. 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 She now has need for more urgent hemodialysis. She is previously had a history of a temporary 6-week history of right IJ catheter which she says was utilized to assist with her CMV infection. She states that she has never had a previous upper extremity fistula. On April 21, 2018 at the [facility] she had bilateral upper extremity vein mapping. It is of note that she is right arm dominant. Bilateral cephalic veins are very diminutive. There is superficial thrombophlebitis in the left antecubital cephalic vein. The right mid biceps basilic vein is small. The left upper arm basilic vein is adequate. Bilateral radial and brachial arteries are adequate. The patient is on chronic oxycodone therapy because of chronic abdominal pain. ROS General General: Yes fatigue; no weight change, appetite, colon cancer, breast cancer or weakness HEENT HEENT: No difficulty swallowing, eye injury, eye surgery, swollen glands or hoarseness Endo Endocrine: No thyroid disease, diabetes mellitus, thyroid cancer, Hair loss, heat intolerance or cold intolerance Skin Skin: No rash or changing moles Musc Musculoskeletal: Yes arthritis; no back problems, rheumatoid arthritis, gout or joint pain Cardio Cardiovascular: Yes high blood pressure; no murmur, pacemaker, heart disease, atrial fibrillation, heart attack, heart stent, palpitations, shortness of breat with exertion or chest pain Psych Psychiatric: Yes anxiety; no depression or hearing voices Resp Respiratory: Yes shortness of breath, No sleep apnea, No cough, No COPD, No asthma, No emphysema, No wheezing Gastro Gastrointestinal: Yes abdominal pain, Yes nausea or vomiting, Yes acid reflux, Yes hemorrhoids, Yes ulcers, No diarrhea, No constipation, No blood in stool, No gallbladder problem, No black,tarry stools Yahir Hematologic: Yes anemia, No blood thinners, No blood disorders, No bleeding, No blood clots Neuro Neurologic: No system reviewed and no additional complaints, except as docu, No as per HPI, No abnormal walking, No abnormal hearing, No abnormal movements, No abnormal speech, No behavioral changes, No burning sensations, No confusion, No seizure-like activity, No unsteadiness, No dizziness, No localized weakness, No frequent falls, No headache(s), No lack of coordination, No loss of vision, No memory loss, No numbness, No other visual disturbances, No radiating pain, No restless legs, No sensory deficit, No fainting, No tingling, No tremor(s), No weakness, No other Exam Const General: cooperative Nutritional Appearance: underweight, thin Orientation: alert, awake, oriented x3 HENMT Head: normal to inspection Chest Chest palpation AND inspection: normal inspection of the chest Other: Well-healed right anterior chest catheter exit site Resp Effort AND Inspection: normal respiratory effort Auscultation: clear to auscultation bilaterally Cardio Rate: regular rate Rhythm: regular rhythm Heart Sounds: no murmurs GI Palpation: soft, no hepatosplenomegaly Skin Other: Mild ecchymosis left mid forearm Neuro General: alert, awake Extrem Other: Bilateral radial arteries are 2+. Bilateral brachial arteries 3+ Evidence of multiple well-healed transverse left wrist lacerations consistent with self cutting Psych Other: Patient currently seems to be aware of her situation and place Assessment AND Plan Problems 1. 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 Request has been made to place urgent tunneled dialysis catheters as well as create an AV fistula. The patient is severely underweight. I have proposed for her right internal jugular tunneled hemodialysis catheter. She is aware of the technique, benefits, risks and alternatives. She is aware that she is so ultra slender that there is a potential for catheter erosion. I do not see any other current options. The patient has thrombosed left antecubital cephalic vein. The upper arm cephalic vein is diminutive. The right upper extremity cephalic vein diminutive. I would propose stage I left upper extremity basilic vein to brachial artery arteriovenous fistula creation. She is aware of the technique, benefits, risks and alternatives. We will inspect OR availability and schedule at her earliest convenience. I appreciate the opportunity of assisting with her surgical care CC: and Dr Jonas Jenkins M.D., F.A.C.S. 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 04/27/18 1628 <Electronically signed by Martinez Jenkins MD> Date Martinez Jenkins MD Cosigner Signature: Date (if applicable) CC: Wil To MD; Marietta Mcdaniel DO VENOUS DUPLEX UPPER Observed: 04/21/2018 Status: F Source: [place] [facility] 12:52 PM [facility] [place] [facility] Cardiovascular Services [address] [place] [id number] Saphenous Vein Mapping, Bilat 04/21/18 0830 MR#: [id number] Acct: [id number] Name: VAL VALVERDE Rep #: [id number] : 1970 47 From: Martinez Jenkins MD Attending Dr: Marietta Mcdaniel DO Status: REG CLI Ordering Dr: Marietta Mcdaniel DO Date: 04/21/18 Location: [facility] Sex: F A Admitted: Reason For Study: Chronic kidney disease type 5 Right Arm Left Arm Right Cephalic Vein at the wrist measures Left Cephalic Vein at the wrist measures 0.37 0.11 x 0.11 cm. x 0.32 cm. Right Cephalic Vein in the forearm measures Left Cephalic Vein in the forearm measures 0.19 x 0.22 cm. 0.23 x 0.24 cm. Right Cephalic Vein below antecub measures Left Cephalic Vein below antecub measures 0.12 0.11 x 0.13 cm. x 0.14 cm. Right Cephalic Vein above antecub measures Left Cephalic Vein above antecub measures 0.13 0.26 x 0.26 cm. x 0.12 cm. Right Cephalic Vein mid bicep measures 0.11 Left Cephalic Vein above antecub is x 0.13 cm. noncompressible with bright intraluminal Right Cephalic Vein at the shoulder echoes. measures 0.15 x 0.18 cm. Basilic vein at origin measures 0.77 x 0.89 Right Basilic Vein at the origin measures cm. 0.49 x 0.53 cm. Basilic vein at bicep measures 0.32 x 0.37 cm. Right Basilic Vein mid bicep measures 0.16 Basilic vein above antecub measures 0.34 x x 0.13 cm. 0.35 cm. Right Basilic Vein above antecub measures Left Brachial Artery measures 0.34 x 0.39 cm 0.30 x 0.33 cm. and a PSV of 86.0 cm/sec. Right Brachial Artery measures 0.45 x 0.52 Left Radial Artery measures 0.21 x 0.23 cm and cm and a PSV of 82.5 cm/sec. a PSV of 87.4 cm/sec. Right Radial Artery measures 0.22 x 0.23 cm and a PSV of 96.6 cm/sec. Interpretation Summary Diminutive cephalic veins bilaterally with chronic superficial thrombophlebitis left antecubital cephalic vein. Small right mid biceps basilic vein Adequate left upper arm basilic vein Normal flow bilateral radial and brachial arteries Ordering Physician: Marietta Mcdaniel Referring Physician: Wil To Performed By: Rosina Vee RVT and Student ? 04/21/18 1251 Date Martinez Jenkins MD CC: Wil To MD; Marietta Mcdaniel DO Date Dictated: 04/21/18 0830 Date Transcribed: 04/21/18 1251 Culinary Assistant: Signed PTHIN Collected: 04/15/2018 Status: F Source: [place] 11:27 AM [facility] [place] TYPE CODE TESTS RESULT OUT OF RANGE REFERENCE UNITS LAB L509.1000 18.4-80.1 pg/mL High [place] 299.6 Performed By: #### L509.1000 #### [place] [facility] [address] [place], [place], [address] HEPATITIS B SURFACE Collected: 04/15/2018 Status: F Source: [place] AG 11:27 AM [facility] [place] TYPE CODE TESTS RESULT OUT OF RANGE REFERENCE UNITS LAB L3100.0400 Negative Normal HB Negative SURF AG Result Comment: Performed at: [facility] [id number] Machine Sole Leveler: Simón Bowers PhD, Phone: [phone] Performed By: #### L3100.0390, L3100.0528 #### [facility] (refer to report for specific site) refer to report for address and phone number HEP B SURFACE Collected: 04/15/2018 Status: F Source: [place] ANTIBODIES 11:27 AM [facility] [place] TYPE CODE TESTS RESULT OUT OF RANGE REFERENCE UNITS LAB L3100.0528 . Normal Hep B Non Reactive [place] [facility] Result Comment: Non Reactive: Inconsistent with immunity, less than 10 mIU/mL Reactive: Consistent with immunity, greater than 9.9 mIU/mL Performed By: #### L3100.0390, L3100.0528 #### [facility] (refer to report for specific site) refer to report for address and phone number [place] HEMOGLOBIN Collected: 04/13/2018 Status: F Source: [place] 12:07 PM [facility] REPOSITORY TYPE CODE TESTS RESULT OUT OF REFERENCE UNITS RANGE LAB WHGB 11.5-15.5 g/dL Low [place] Hemoglobin 9.4 Result Comment: Test performed at: [facility] [place], [address] [place] [address] Rd[address] [place] [address]. [place] HEMATOCRIT Collected: 04/13/2018 Status: F Source: [place] 12:07 PM [facility] REPOS[facility] TYPE CODE TESTS RESULT OUT OF REFERENCE UNITS RANGE LAB WHCT 36.0-46.0 % Low [place] Hematocrit 28.9 Result Comment: Test performed at: [facility] [place], [address] [place] [address]. PROGRESS Observed: 04/06/2018 Status: COMPLETED Source: [place] 4:40 PM [facility] REPOSITORY HNO ID: [id number] Author: Delvis Hameed Service: (none) Author Type: Physician Type: Progress Notes Filed: 04/06/2018 6:32 PM Note Text: Patient is a 47 year old female who presents for follow up of renal transplant. LURD from adoptive mother kidney transplant. ? Date of Transplant: 02-21-10 ? Transplant number: #1; Pre-emptive ? Donor kidney age/gender: 64 yo female ? Original Disease and history: ? Malignant Neoplasm of Other Specified Sites of Stomach (stomach cancer) ? Chronic Kidney Disease, Unspecified ? CMV status: -/+ ? Induction therapy: Simulect IS tacr/pred/mmf Major past medical history - h/o gastric carcinoma s/p radical near total gastrectomy with Layne gastrojejunostomy in 2000 ? Major events since transplantation: ? 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 Dapsone was stopped and methylene blue was given.. ? Re-admission for IV hydration 03/08/10. ? Kidney transplant biopsy done 03/23/10 - (-) ACR + Acute tubular injury. 11/01 had EGD , gastric ulcer, _ CMV started on Valcyte 450 mg po qd- symptom improved Symptoms recurred , in 06/04 EGD + fo CMV ulcers- started on GNCV Last visit with Bryan Koo on 12/23/17. No changes Her main issue has been slowly deteriorating kidney function we've been concerned about her volume status however she did not respond to IV fluids in the recent past. She does not have proteinuria. Neg DSA in 2016 No overt signs of uremia She has had chronic early satiety and poor appetite however her weight has been stable No CP/SOB, Fevers, chills, dysuria. No edema. Weight steady. All other systems negative. PE: BP 136/88 (BP Site: Left Arm, BP Position: Sitting, BP Cuff Size: Regular Adult) Pulse 99 Temp 36.8 ?C (98.2 ?F) (Tympanic) Ht 151.1 cm (4' 11.5) Wt 36.2 kg (79 lb 12.8 oz) BMI 15.85 kg/m? Average BP (BpTru): 136/88 Average Pulse (BpTru): 99 beats/min Standing BP (BpTru): 131/82 Standing pulse (BpTru): 105 Thin NECK: No adenopathy. No elevated JVP. CV RRR no rub LUNGS: Clear to ausculation. ABD soft, NT, ND, no masses. Allograft in LLQ EXT: no edema. SKIN: no rash or lesions. LABS: Creatinine (mg/dL) Date Value 04/06/2018 6.33 03/20/2018 Incorrect test ordered. Correct order placed. Results to follow. 03/20/2018 5.38 BUN (mg/dL) Date Value 04/06/2018 51 03/20/2018 Incorrect test ordered. Correct order placed. Results to follow. 03/20/2018 51 eGFR-All Other Races (.) Date Value 04/06/2018 7 03/20/2018 Incorrect test ordered. Correct order placed. Results to follow. 03/20/2018 9 CO2 (mmol/L) Date Value 04/06/2018 21 03/20/2018 Incorrect test ordered. Correct order placed. Results to follow. 03/20/2018 18 Potassium (mmol/L) Date Value 04/06/2018 4.0 03/20/2018 Incorrect test ordered. Correct order placed. Results to follow. 03/20/2018 4.8 Tacrolimus/FK506 (ng/mL) Date Value 02/16/2018 5.6 12/22/2017 6.6 11/12/2017 7.2 Hemoglobin (g/dL) Date Value 02/16/2018 9.3 10/06/2017 10.9 07/13/2017 8.3 Platelet Count (k/uL) Date Value 02/16/2018 172 10/06/2017 146 07/13/2017 21 WBC (k/uL) Date Value 02/16/2018 9.38 10/06/2017 13.74 07/13/2017 8.08 Albumin (g/dL) Date Value 04/06/2018 3.7 02/16/2018 3.5 12/22/2017 3.1 Phosphorus (mg/dL) Date Value 11/12/2017 3.3 10/06/2017 Unable to assay. Specimen significantly hemolyzed. 07/11/2017 4.5 Assessment and Plan: Probably end-stage renal disease in the setting of failing living related transplant in 2009. She probably has significant interstitial fibrosis and tubular atrophy. Her GFR is around 7 she is not grossly uremic but I think is time to withdraw more of her immunosuppression and started on dialysis. We will try to refer her to Dr. Marietta Mcdaniel close to her home. Why she gets establish and dialysis well and recover some we will reassess her for potential retransplantation. 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 CMV) (opportunistic infections). Will lower her Prograf to 1 mg by mouth twice a day, I think in a month she can go to 1 daily and eventually in a month discontinue. She'll continue on the prednisone (she's been off CellCept for quite a while already) Delvis Hameed MD This note was partially generated using [employer] voice recognition system, and there may be some incorrect words, spellings, and punctuation that were not noted in checking the note before saving. I spent >45 minutes in this visit, with more than 60% of the time devoted to patient counseling. Scribe Attestation: By signing my name below, Darin Arteaga, attest that this documentation has been prepared under the direction and in the presence of Delvis Hameed MD. Electronically Signed:chau House, April 06, 2018 4:40 PM Provider Attestation: Delvis Arteaga MD, personally performed the services described in this documentation. All medical record entries made by the scribe were at my direction and in my presence. I have reviewed the chart and discharge instructions (if applicable) and agree that the record reflects my personal performance and is accurate and complete. Dr. Delvis Hameed April 06, 2018 4:40 PM CNOV Observed: 04/06/2018 Status: COMPLETED Source: [place] 4:00 PM [facility] REPOSITORY Office Visit (NEPHMN) VAL VALVERDE ([id number]) 1970 F TRN Date Time Provider Department 04/06/18 4:00 PM DELVIS HAMEED During your visit today, we recorded the following information about you: Temperature Pulse Blood pressure Weight 98.2 degrees 99/minute 136/88 36.2 kg Height 1.511 m Delvis Hameed MD 04/06/2018 6:32 PM Signed Patient is a 47 year old female who presents for follow up of renal transplant. LURD from adoptive mother kidney transplant. ? Date of Transplant: 02-21-10 ? Transplant number: #1; Pre-emptive ? Donor kidney age/gender: 64 yo female ? Original Disease and history: ? Malignant Neoplasm of Other Specified Sites of Stomach (stomach cancer) ? Chronic Kidney Disease, Unspecified ? CMV status: -/+ ? Induction therapy: Simulect IS tacr/pred/mmf Major past medical history - h/o gastric carcinoma s/p radical near total gastrectomy with Layne gastrojejunostomy in 2000 ? Major events since transplantation: ? 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 Dapsone was stopped and methylene blue was given.. ? Re-admission for IV hydration 03/08/10. ? Kidney transplant biopsy done 03/23/10 - (-) ACR + Acute tubular injury. 11/01 had EGD , gastric ulcer, _ CMV started on Valcyte 450 mg po qd- symptom improved Symptoms recurred , in 06/04 EGD + fo CMV ulcers- started on GNCV Last visit with Bryan Koo on 12/23/17. No changes Her main issue has been slowly deteriorating kidney function we've been concerned about her volume status however she did not respond to IV fluids in the recent past. She does not have proteinuria. Neg DSA in 2016 No overt signs of uremia She has had chronic early satiety and poor appetite however her weight has been stable No CP/SOB, Fevers, chills, dysuria. No edema. Weight steady. All other systems negative. PE: BP 136/88 (BP Site: Left Arm, BP Position: Sitting, BP Cuff Size: Regular Adult) Pulse 99 Temp 36.8 ?C (98.2 ?F) (Tympanic) Ht 151.1 cm (4' 11.5) Wt 36.2 kg (79 lb 12.8 oz) BMI 15.85 kg/m? Average BP (BpTru): 136/88 Average Pulse (BpTru): 99 beats/min Standing BP (BpTru): 131/82 Standing pulse (BpTru): 105 Thin NECK: No adenopathy. No elevated JVP. CV RRR no rub LUNGS: Clear to ausculation. ABD soft, NT, ND, no masses. Allograft in LLQ EXT: no edema. SKIN: no rash or lesions. LABS: Creatinine (mg/dL) Date Value 04/06/2018 6.33 03/20/2018 Incorrect test ordered. Correct order placed. Results to follow. 03/20/2018 5.38 BUN (mg/dL) Date Value 04/06/2018 51 03/20/2018 Incorrect test ordered. Correct order placed. Results to follow. 03/20/2018 51 eGFR-All Other Races (.) Date Value 04/06/2018 7 03/20/2018 Incorrect test ordered. Correct order placed. Results to follow. 03/20/2018 9 CO2 (mmol/L) Date Value 04/06/2018 21 03/20/2018 Incorrect test ordered. Correct order placed. Results to follow. 03/20/2018 18 Potassium (mmol/L) Date Value 04/06/2018 4.0 03/20/2018 Incorrect test ordered. Correct order placed. Results to follow. 03/20/2018 4.8 Tacrolimus/FK506 (ng/mL) Date Value 02/16/2018 5.6 12/22/2017 6.6 11/12/2017 7.2 Hemoglobin (g/dL) Date Value 02/16/2018 9.3 10/06/2017 10.9 07/13/2017 8.3 Platelet Count (k/uL) Date Value 02/16/2018 172 10/06/2017 146 07/13/2017 21 WBC (k/uL) Date Value 02/16/2018 9.38 10/06/2017 13.74 07/13/2017 8.08 Albumin (g/dL) Date Value 04/06/2018 3.7 02/16/2018 3.5 12/22/2017 3.1 Phosphorus (mg/dL) Date Value 11/12/2017 3.3 10/06/2017 Unable to assay. Specimen significantly hemolyzed. 07/11/2017 4.5 Assessment and Plan: Probably end-stage renal disease in the setting of failing living related transplant in 2009. She probably has significant interstitial fibrosis and tubular atrophy. Her GFR is around 7 she is not grossly uremic but I think is time to withdraw more of her immunosuppression and started on dialysis. We will try to refer her to Dr. Marietta Mcdaniel close to her home. Why she gets establish and dialysis well and recover some we will reassess her for potential retransplantation. 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 CMV) (opportunistic infections). Will lower her Prograf to 1 mg by mouth twice a day, I think in a month she can go to 1 daily and eventually in a month discontinue. She'll continue on the prednisone (she's been off CellCept for quite a while already) Delvis Hameed MD This note was partially generated using [employer] voice recognition system, and there may be some incorrect words, spellings, and punctuation that were not noted in checking the note before saving. I spent >45 minutes in this visit, with more than 60% of the time devoted to patient counseling. Scribe Attestation: By signing my name below, Darin Arteaga Admin, attest that this documentation has been prepared under the direction and in the presence of Delvis Hameed MD. Electronically Signed:chau House, April 06, 2018 4:40 PM Provider Attestation: Delvis Arteaga MD, personally performed the services described in this documentation. All medical record entries made by the scribe were at my direction and in my presence. I have reviewed the chart and discharge instructions (if applicable) and agree that the record reflects my personal performance and is accurate and complete. Dr. Delvis Hameed April 06, 2018 4:40 PM Referring Provider: SELF [[id number]] Allergies As of Date: 04/06/2018 Noted Allergy Reaction SULFA (SULFONAMIDE ANTIBIOTICS) 04/07/2001 4 - Hives Comments: hives NSAIDS (NON-STEROIDAL ANTI-INFLAM*04/23/2016 5 - Intolerance Date Reviewed: 04/06/2018 Reviewed by: Fred Monson Ma - Fully Assessed Primary Visit Diagnosis:CKD (chronic kidney disease) stage 5, GFR less than 15 ml/min ([facility]) [N18.5] Other Visit Diagnoses:Kidney replaced by transplant [Z94.0] History of gastric cancer [Z85.028] Gastric ulcer, unspecified chronicity, unspecified whether gastric ulcer hemorrhage or perforation present [K25.9] Other cytomegaloviral diseases ([facility]) [B25.8] Immunosuppressive management encounter following kidney transplant [Z79.899, Z94.0] Order(s):tacrolimus (PROGRAF) 1 mg capsuleTake 1 capsule by mouth twice daily. - ICD 10 = Z94.0 kidney transplant 02/21/2010Disp: 270 capsuleRfl: 3 Prescriptions as of 04/06/2018 Sig: TACROLIMUS 1 MG CAPSULE Take 1 capsule by mouth twice* XSOTTS-OAMQVZWO-DSZLWYE 12,00* Take 1 capsule by mouth three* DRONABINOL 2.5 MG CAPSULE Take 1 capsule by mouth four * AMLODIPINE 10 MG TABLET Take 1 tablet by mouth once d* COMPOUNDED PRESCRIPTION Please infuse 500 cc of NS in* ESOMEPRAZOLE MAGNESIUM 40 MG * Take 1 capsule by mouth once * POLYSACCHARIDE IRON COMPLEX 1* Take 1 capsule by mouth once * CHOLECALCIFEROL (VITAMIN D3) * Take 1 capsule by mouth every* SODIUM BICARBONATE 650 MG TAB* Take 1 tablet by mouth three * CALCIUM CITRATE-ERGOCALCIFERO* Take 1 tablet by mouth twice * CYANOCOBALAMIN (VIT B-12) 1,0* Inject 1 mL intramuscularly o* SYRINGE (DISPOSABLE) 1 ML 1 mL as directed. BIOTIN ORAL Take by mouth once daily. CALCIUM 600 ORAL Take by mouth twice daily. MULTI ORAL Take by mouth. COMPOUNDED PRESCRIPTION Outpatient physical therapy PREDNISONE 5 MG TABLET Take 1 tablet by mouth once d* GABAPENTIN ORAL Take 300 mg by mouth twice da* OXYCODONE 5 MG TABLET Take 1 tablet by mouth every * TIZANIDINE 4 MG TABLET Take 1 tablet by mouth every * MISOPROSTOL 200 MCG TABLET Insert 2 tables vaginally nig* ALBUTEROL SULFATE HFA 90 MCG/* 2 Puffs every 4 hours as need* THERAPEUTIC MULTIVITAMIN TABL* Take 1 tablet by mouth twice * Problem List As Of Date 04/06/2018 Noted Resolved Anemia in chronic kidney disease [N18.9, D63.1] INVALID FOR* More... Chronic kidney disease, stage III (moderate) [N*INVALID FOR*08/27/2017 More... History of gastric cancer [Z85.028] INVALID FOR*12/30/2016 More... 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 GERD (gastroesophageal reflux disease) [K21.9] INVALID FOR* Weight loss [R63.4] INVALID FOR* More... CRD (chronic renal disease) [N18.9] INVALID FOR* Reflux esophagitis [K21.0] INVALID FOR* GIB (gastrointestinal bleeding) [K92.2] INVALID FOR*12/30/2016 More... Acute blood loss anemia [D62] INVALID FOR* More... 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 Essential hypertension [I10] INVALID FOR* More... Peptic ulcer disease with hemorrhage [K27.4] INVALID FOR*12/30/2016 Imbmu-ir-xoldskm kidney injury (HCC) [N17.9, N1*INVALID FOR*12/30/2016 More... Nausea AND vomiting [R11.2] INVALID FOR*12/30/2016 More... GI bleed [K92.2] INVALID FOR* Priority: C More... History of gastric cancer [Z85.028] INVALID FOR* More... Pancytopenia (HCC) [D61.818] INVALID FOR* Priority: B Central line infection [T80.219A] INVALID FOR*02/27/2017 Priority: A More... Severe protein-calorie malnutrition (HCC) [E43] INVALID FOR* More... Hx of transfusion [Z92.89] INVALID FOR* More... Pneumonia [J18.9] INVALID FOR*07/14/2017 Priority: A More... Pancreatic insufficiency [K86.89] INVALID FOR* More... JENNIFFER (acute kidney injury) (HCC) [N17.9] INVALID FOR*07/14/2017 More... Macrocytic anemia [D53.9] INVALID FOR* More... Thrombocytopenia (HCC) [D69.6] INVALID FOR* More... Respiratory failure with hypoxia (HCC) [J96.91] INVALID FOR*07/14/2017 More... Bacteremia [R78.81] INVALID FOR*07/14/2017 More... Chronic kidney disease, stage 4, severely decre*INVALID FOR* Anemia in stage 4 chronic kidney disease (HCC) *INVALID FOR* Iron malabsorption [K90.9] INVALID FOR* S/P partial gastrectomy [Z90.3] INVALID FOR* Vitamin B12 deficiency anemia due to intrinsic *INVALID FOR* Prescriptions ordered this encounter Disp Refills Start End TACROLIMUS 1 MG CAPSULE 270 * 3 04/06/2018 Class: Med Update Route: ORAL Sig: Take 1 capsule by mouth twice daily. - ICD 10 = Z94.0 kidney transplant 02/21/2010 Medications Discontinued During This Encounter tacrolimus (PROGRAF) 1 mg capsule 270 * 3 02/10/2018 04/06/2018 Sig: Take (2) capsules by mouth every morning and (1) capsule every evening - ICD 10 = Z94.0 kidney transplant 02/21/2010 Disc: Reason for discontinue is not on file. Follow-up and Disposition History Recorded Encounter Status:Closed by DELVIS HAMEED MD on 04/06/18 COMP METABOLIC PANEL Collected: 04/06/2018 Status: F Source: [place] 11:56 AM [facility] REPOSITORY TYPE CODE TESTS RESULT OUT OF REFERENCE UNITS [facility] TP 6.3-8.0 g/dL Protein, Low Total 6.0 LAB ALB 3.9-4.9 g/dL Albumin Low 3.7 LAB CA 8.5-10.2 mg/dL Calcium, Total 8.6 LAB TBIL 0.2-1.3 mg/dL Bilirubin, Total 0.2 LAB ALKP 34-123 U/L Alkaline Phosphatase 92 LAB AST 13-35 U/L AST 19 LAB GLU 74-99 mg/dL Glucose High 111 LAB BUN 7-21 mg/dL BUN High 51 LAB CRET 0.58-0.96 mg/dL Creatinine High 6.33 LAB NA 136-144 mmol/L Sodium 136 LAB K 3.7-5.1 mmol/L Potassium 4.0 LAB CL 97-105 mmol/L Chloride High 106 LAB CO2 22-30 mmol/L CO2 Low 21 LAB AGAP mmol/L Anion Gap 9 LAB ALT 7-38 U/L ALT 15 LAB GFRAA eGFR- 9 Amer. LAB GFRNAA . eGFR-All Other Races 7 Result Comment: eGFR (Estimated GFR) Units of measure: mL/min/1.73 meters squared eGFR is derived from the reexpressed MDRD Study equation using the following parameters: serum creatinine, age, gender and race. The creatinine assay has been calibrated to be traceable to IDMS. An eGFR <60 mL/min/1.73m2 for >3 months is consistent with chronic kidney disease. Refer to KDOQI guidelines for clinical interpretation. In patients with unstable renal function, e.g. those with acute kidney injury, the eGFR may not accurately reflect actual GFR. TACROLIMUS /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 creatinine, age, gender and race. The creatinine assay has been calibrated to be traceable to IDMS. An eGFR <60 mL/min/1.73m2 for >3 months is consistent with chronic kidney disease. Refer to KDOQI guidelines for clinical interpretation. In patients with unstable renal function, e.g. those with acute kidney injury, the eGFR may not accurately reflect actual GFR. Performed By: #### BMP #### [facility] [address] [place] [id number] BASIC METABOLIC PANL Collected: 03/20/2018 Status: F Source: [place] 3:11 PM [facility] REPOSITORY TYPE CODE TESTS RESULT OUT OF REFERENCE UNITS RANGE LAB GLU 74-99 mg/dL Requisitioning Glucose entry error Result Comment: Account Credited ORDERED WITH WRONG PROCESSING LOCATION. HAD TO REORDER WITH [facility] SO THAT TEST COULD BE RAN. [id number] LAB BUN 7-21 mg/dL Requisitioning entry BUN error Result Comment: Account Credited ORDERED WITH WRONG PROCESSING LOCATION. HAD TO REORDER WITH [facility] SO THAT TEST COULD BE RAN. [id number] LAB CRET 0.58-0.96 mg/dL Requisitioning entry Creatinine error Result Comment: Account Credited ORDERED WITH WRONG PROCESSING LOCATION. HAD TO REORDER WITH [facility] SO THAT TEST COULD BE RAN. [id number] LAB NA 136-144 mmol/L Requisitioning entry Sodium error Result Comment: Account Credited ORDERED WITH WRONG PROCESSING LOCATION. HAD TO REORDER WITH [facility] SO THAT TEST COULD BE RAN. [id number] LAB K 3.7-5.1 mmol/L Requisitioning entry Potassium error Result Comment: Account Credited ORDERED WITH WRONG PROCESSING LOCATION. HAD TO REORDER WITH [facility] SO THAT TEST COULD BE RAN. [id number] LAB CL 97-105 mmol/L Requisitioning entry Chloride error Result Comment: Account Credited ORDERED WITH WRONG PROCESSING LOCATION. HAD TO REORDER WITH [facility] SO THAT TEST COULD BE RAN. [id number] LAB CO2 22-30 mmol/L Requisitioning entry error CO2 Result Comment: Account Credited ORDERED WITH WRONG PROCESSING LOCATION. HAD TO REORDER WITH [facility] SO THAT TEST COULD BE RAN. [id number] LAB AGAP 9-18 mmol/L Requisitioning entry Anion Gap error Result Comment: Account Credited ORDERED WITH WRONG PROCESSING LOCATION. HAD TO REORDER WITH [facility] SO THAT TEST COULD BE RAN. [id number] LAB CA 8.5-10.2 mg/dL Requisitioning entry Calcium, Total error Result Comment: Account Credited ORDERED WITH WRONG PROCESSING LOCATION. HAD TO REORDER WITH [facility] SO THAT TEST COULD BE RAN. [id number] LAB GFRAA eGFR- Requisitioning entry Amer. error Result Comment: Account Credited ORDERED WITH WRONG PROCESSING LOCATION. HAD TO REORDER WITH [facility] SO THAT TEST COULD BE RAN. [id number] LAB GFRNAA . eGFR-All Requisitioning entry Other Races error Result Comment: Account Credited ORDERED WITH WRONG PROCESSING LOCATION. HAD TO REORDER WITH [facility] SO THAT TEST COULD BE RAN. [id number] LAB GFRPED eGFR-Ped. Requisitioning entry Factor error Result Comment: Account Credited ORDERED WITH WRONG PROCESSING LOCATION. HAD TO REORDER WITH [facility] SO THAT TEST COULD BE RAN. [phone] Performed By: #### BMP #### [facility] [address] [place], [place] [address] OT FUNCTIONAL CAPACITY Observed: 03/18/2018 Status: F Source: [place] 9:11 AM [facility] [place], [place] [address] Fax REHABILITATION SERVICES INITIAL EVALUATION MR#: [id number] Acct: [id number] Name: VAL VALVERDE Rep #: [id number] : 1970 47 From: Bryan Terry OTR/L, CHT Referring DrVineet: RUDY Dumas Status: REG RCR Insurance: [facility] Eval Date: SELF PAY INSURANCE HP OT Functional Capacity Eval - Task Lift Floor (Occasional 1-33% of Day): 35# Floor (Frequent 34-66% of Day): 18# Floor (Constant 67-100% of Day): 7# Floor PDL: Light-Medium Knee (Occasional 1-33% of Day): 35# Knee (Frequent 34-66% of Day): 18# Knee (Constant 67-100% of Day): 7# Knee PDL: Light-Medium Waist (Occasional 1-33% of Day): 30# Waist (Frequent 34-66% of Day): 15# Waist (Constant 67-100% of Day): 6# Waist PDL: Light-Medium Shoulder (Occasional 1-33% of Day): 20# Shoulder (Frequent 34-66% of Day): 10# Shoulder (Constant 67-100% of Day): N/A Shoulder PDL: Light Overhead (Occasional 1-33% of Day): 10 Overhead (Frequent 34-66% of Day): N/A Overhead (Constant 67-100% of Day): N/A Overhead PDL: Sedentary - Work Activity/Posture Bending: Frequent Ability (34-66% of day) Squatting: Occasional Ability (1-33% of day) Comments: With use of external support. Kneeling: Occasional Ability (1-33% of day) Comments: with use of external support Reaching out: Frequent Ability (34-66% of day) Reaching up: Frequent Ability (34-66% of day) Sitting: Frequent Ability (34-66% of day) Walking: Frequent Ability (34-66% of day) Standing: Frequent Ability (34-66% of day) - Reference Duration Sedentary Sedentary Light Light Light Medium Medium Medium Heavy V mariana Heavy Heavy - Patient Information Height: 1.5 m Weight:: 34.019 kg Hand Dominance: right - Medical History Medical History Including Restrictions: Pt states she was in good health until she was dx with stomach cancer. Pt stated 2000 near total gastrectomy due to stomach cancer. pt states she did have chemo and radiation for cancer tx following sx. Pt states her left kidney was compromised during radiation and she underwent a left kidney transplant in 2009. 2009 pt states she recovered fair, but due to her stomach issues she struggled with staying hydrated. pt states November 2016 she was dx with bleeding ulcer, pt did have to get platelets during this time staying in the hospital for 11 days. pt states she has had. pt states doctors are monitoring he kidney function as a kidney transplant last 7-10 years and she is 8 years with this kidney. Pt states she suffered from a virus CMV (Cytomegalovirus) in 2017 and her infections disease doctor placed her on medical disability due to her medical conditions. - Diagnoses Diagnoses: 2000 Stomach cancer. 2009 Kidney transplant. 2017 CMV Cytomegalovirus - Symptoms Symptoms: states daily she has stomach discomfort with eating and drinking. small eating ability. acid reflux. Fatigue. Stomach pain. Dehydration - Pain Pain: 0/10 - Work History Work History: Pt state she was last employed at [employer]. pt states she worked there for about 23 years. 2016 was her last day. 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 pt states she did a lot of sitting and looking through a microscope at [employer] and would repair what was needed. pt states she worked 40 hours a week. Pt states after she contracted a virus she was placed on disability from her infectious disease dr. - Behavioral Behavioral: Pt was cooperative and pleasant. - ADLS ADLS: Pt states she lives in a two-story home with her . Pt states she is ind. with all BADLS and IADls. pt states she drives and does her own grocery shopping. Pt states her does all the yard work. pt states she does have a washer and dryer on the main floor that has helped her with carrying the laundry. Pt states she does adjust her activity to how fatigued she feels each day. - Physical Examination ROM: Pt demo all ROM WNL Strength: pt demo 4/5 functional strength- Right Measurer Strength Average: 51.66 Right Measurer Strength Percentile: 9% Left Measurer Strength Average: 56.00 Left Measurer Strength Percentile: 16# Right Lateral Pinch Average: 7.00 Right Lateral Pinch Percentile: <10% Left Lateral Pinch Average: 8.66 Left Lateral Pinch Percentile: 10% Right Tripod Pinch Average: 9.33 Right Tripod Pinch Percentile: 25% Left Tripod Pinch Average: 10.00 Left Tripod Pinch Percentile: 50% Sensation: Denies Fine Motor: Denies difficulty. Balance: pt demo no loss of balance during assessment. - Non Material Handling Activities Bending: pt completed bending three times, ten times and ten times rapidly. Pt denied any pain or difficulty performing this activity. pt can bend forward on a frequent basis. Squatting: pt completed squatting three times, ten times and ten times rapidly. pt SOB following task and use of external support during squatting. pt can squat on a occasional basis with external support. Kneeling: Pt demo the ability to kneel on to her left knee three times and ten times with external support. pt was unable to complete kneeling ten times rapidly. Pt was SOB needed a break. pt can kneel on a occasional basis with external support. Reaching out/up: pt completed reaching up/out while standing three times, ten times and ten times rapidly. Pt denied any pain or difficulty performing this activity. pt can reach out/up on a frequent basis. Walking: Pt amb. with a good steady reciprical gait pattern during a 15min ambulation. Pt denied any pain or difficulty performing this activity. pt can ambulate on a frequent basis. Standing: Pt demo the ability to stand for 4 min with shifting her body weight. Sitting: Pt states she can sit for a few hours but needs to shift her body weight due to healed bed sore on her tail bone that will become uncomfortable if she can not shift her body weight. pt demo the ability to sit for 30 min with no stated or apparent discomfort. Pt can sit on a frequent basis with ability to shift her body weight. Climbing Stairs: Pt demo the ability to ascend/descend ten steps with a reciprical step pattern and no use of hand rails. Pt denied any pain or difficulty performing this activity - Dynamic Occasional Lifting Capacity Floor Lift: pt demo the ability to lift 25# comfortably and 35# maximally from floor level with good lifting mechanics. Light-Medium Physical Demand Level Knee Lift: pt demo the ability to lift 25# comfortably and 35# maximally from knee level with good lifting mechanics. Light-Medium Physical Demand Level Waist Lift: pt demo the ability to lift 15# comfortably and lift 30# maximally from waist level with good lifting mechanics. Light-Medium Physical Demand Level Shoulder Lift: pt demo the ability to lift 10# comfortably and lift 20# maximally from shoulder level with good lifting mechanics. Light Physical Demand Level Overhead Lift: pt demo the ability to lift 5# comfortably and 10# maximally from overhead level with good lifting mechanics. Sedentary Physical Demand Level. Carrying: Pt demo the ability to lift 20# for 40 feet. Pt did use her body to assist in propping box of wt. while carring. Comments: Pt completed tasks with good ability. <Electronically signed by Bryan LEAVITT/KIMBERLY Ruggiero> 03/18/18 0911 CC: RUDY Dumas; Wil To MD MK Signed For Medicare only, by signing this I certify the plan of care. Physicians Signature Date KESHA HEMATOCRIT Collected: 03/16/2018 Status: F Source: [place] 2:13 PM [facility] REPOSITORY TYPE CODE TESTS RESULT OUT OF REFERENCE UNITS RANGE LAB WHCT 36.0-46.0 % Low [place] Hematocrit 30.6 Result Comment: Test performed at: [address] [place] [address]. KESHA HEMOGLOBIN Collected: 03/16/2018 Status: F Source: [place] 2:13 PM [facility] REPOSITORY TYPE CODE TESTS RESULT OUT OF REFERENCE UNITS RANGE LAB WHGB 11.5-15.5 g/dL Low [place] Hemoglobin 9.8 Result Comment: Test performed at: [address] [place] [address]. PROGRESS Observed: 03/04/2018 Status: COMPLETED Source: [place] 4:43 PM [facility] REPOSITORY HNO ID: [id number] Author: Keri Adame Service: (none) Author Type: Nurse Practitioner Type: Progress Notes Filed: 03/04/2018 5:00 PM Note Text: Val Valverde presents today for IUD check. She had a Mirena placed on 02/04/18. She has had no complications since placement. REVIEW OF SYSTEMS: General: No fever or chills, no pain PHYSICAL EXAMINATION: BP 122/80 Wt 79 lb (35.8kg) ABDOMEN:soft, non-tender, no masses, no hepatosplenomegaly and no lymphadenopathy EXTERNAL GENITALIA: Normal genitalia and Bartholins, Urethra, Sken'e normal CERVIX: smooth, no lesions. IUD strings visible. Pelvic exam: Tiny condyloma to anus. UTERUS: normal size ADNEXA: negative for tenderness or masses IMPRESSION/PLAN: IUD correctly positioned. Patient counseled regarding monthly string check. Follow up for annual exam or sooner if needed. 2. Genital warts - ICD9: 078.11, ICD10: A63.0 - PODOFILOX 0.5 % TOPICAL GEL Follow-up as needed. Keri Adame APRN.CNP CNOV Observed: 03/04/2018 Status: COMPLETED Source: [place] 4:30 PM [facility] REPOSITORY Office Visit (WOOB) VAL VALVERDE ([id number]) 1970 F TRN Date Time Provider Department 03/04/18 4:30 PM KERI ADAME ([facility]) WOOB During your visit today, we recorded the following information about you: Blood pressure Weight 122/80 35.8 kg Keri Adame APRN.CNP 03/04/2018 5:00 PM Signed Val Valverde presents today for IUD check. She had a Mirena placed on 02/04/18. She has had no complications since placement. REVIEW OF SYSTEMS: General: No fever or chills, no pain PHYSICAL EXAMINATION: BP 122/80 Wt 79 lb (35.8kg) ABDOMEN:soft, non-tender, no masses, no hepatosplenomegaly and no lymphadenopathy EXTERNAL GENITALIA: Normal genitalia and Bartholins, Urethra, Sken'e normal CERVIX: smooth, no lesions. IUD strings visible. Pelvic exam: Tiny condyloma to anus. UTERUS: normal size ADNEXA: negative for tenderness or masses IMPRESSION/PLAN: IUD correctly positioned. Patient counseled regarding monthly string check. Follow up for annual exam or sooner if needed. 2. Genital warts - ICD9: 078.11, ICD10: A63.0 - PODOFILOX 0.5 % TOPICAL GEL Follow-up as needed. Keri Adame, LAST.ACCOUNTING MACHINE MECHANIC Referring Provider: SELF [200] Allergies As of Date: 03/04/2018 Noted Allergy Reaction SULFA (SULFONAMIDE ANTIBIOTICS) 04/07/2001 4 - Hives Comments: hives NSAIDS (NON-STEROIDAL ANTI-INFLAM*04/23/2016 5 - Intolerance Date Reviewed: 03/04/2018 Reviewed by: Keri ([facility]) Pako - Fully Assessed Reason for Visit: Follow Up [171] Primary Visit Diagnosis:Encounter for routine checking of intrauterine contraceptive device (IUD) [Z30.431] Other Visit Diagnosis:Genital warts [A63.0] Order(s):Podofilox (CONDYLOX) 0.5 % gelApply 1 application to affected area twice daily for 3 days. Withhold treatment for 4days; may repeat cycles up to 4 timesDisp: 3.5 gRfl: 2 Prescriptions as of 03/04/2018 Sig: DRONABINOL 2.5 MG CAPSULE Take 1 capsule by mouth four * COMPOUNDED PRESCRIPTION Please infuse 500 cc of NS in* ESOMEPRAZOLE MAGNESIUM 40 MG * Take 1 capsule by mouth once * TACROLIMUS 1 MG CAPSULE Take (2) capsules by mouth ev* POLYSACCHARIDE IRON COMPLEX 1* Take 1 capsule by mouth once * AMLODIPINE 5 MG TABLET Take 1 tablet by mouth once d* CHOLECALCIFEROL (VITAMIN D3) * Take 1 capsule by mouth every* HQLVVG-HTIJEOPZ-ZFOSIMM 12,00* Take by mouth three times raad* SODIUM BICARBONATE 650 MG TAB* Take 1 tablet by mouth three * CYANOCOBALAMIN (VIT B-12) 1,0* Inject 1 mL intramuscularly o* SYRINGE (DISPOSABLE) 1 ML 1 mL as directed. BIOTIN ORAL Take by mouth once daily. CALCIUM 600 ORAL Take by mouth twice daily. MULTI ORAL Take by mouth. PREDNISONE 5 MG TABLET Take 1 tablet by mouth once d* THERAPEUTIC MULTIVITAMIN TABL* Take 1 tablet by mouth twice * GABAPENTIN ORAL Take 300 mg by mouth twice da* OXYCODONE 5 MG TABLET Take 1 tablet by mouth every * TIZANIDINE 4 MG TABLET Take 1 tablet by mouth every * PODOFILOX 0.5 % TOPICAL GEL Apply 1 application to affect* MISOPROSTOL 200 MCG TABLET Insert 2 tables vaginally nig* Patient not taking: Reported on 02/16/2018 LORAZEPAM 1 MG TABLET Take 1 tablet by mouth as dir* Patient not taking: Reported on 02/16/2018 CALCIUM CITRATE-ERGOCALCIFERO* Take 1 tablet by mouth twice * Patient not taking: Reported on 01/30/2018 ALBUTEROL SULFATE HFA 90 MCG/* 2 Puffs every 4 hours as need* Patient not taking: Reported on 01/30/2018 COMPOUNDED PRESCRIPTION Outpatient physical therapy Patient not taking: Reported on 01/30/2018 Problem List As Of Date 03/04/2018 Noted Resolved Anemia in chronic kidney disease [N18.9, D63.1] INVALID FOR* More... Chronic kidney disease, stage III (moderate) [N*INVALID FOR*08/27/2017 More... History of gastric cancer [Z85.028] INVALID FOR*12/30/2016 More... 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 GERD (gastroesophageal reflux disease) [K21.9] INVALID FOR* Weight loss [R63.4] INVALID FOR* More... CRD (chronic renal disease) [N18.9] INVALID FOR* Reflux esophagitis [K21.0] INVALID FOR* GIB (gastrointestinal bleeding) [K92.2] INVALID FOR*12/30/2016 More... Acute blood loss anemia [D62] INVALID FOR* More... 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 Essential hypertension [I10] INVALID FOR* More... Peptic ulcer disease with hemorrhage [K27.4] INVALID FOR*12/30/2016 Uadoo-jh-rgeqqbq kidney injury (HCC) [N17.9, N1*INVALID FOR*12/30/2016 More... Nausea AND vomiting [R11.2] INVALID FOR*12/30/2016 More... GI bleed [K92.2] INVALID FOR* Priority: C More... History of gastric cancer [Z85.028] INVALID FOR* More... Pancytopenia (HCC) [D61.818] INVALID FOR* Priority: B Central line infection [T80.219A] INVALID FOR*02/27/2017 Priority: A More... Severe protein-calorie malnutrition (HCC) [E43] INVALID FOR* More... Hx of transfusion [Z92.89] INVALID FOR* More... Pneumonia [J18.9] INVALID FOR*07/14/2017 Priority: A More... Pancreatic insufficiency [K86.89] INVALID FOR* More... JENNIFFER (acute kidney injury) (HCC) [N17.9] INVALID FOR*07/14/2017 More... Macrocytic anemia [D53.9] INVALID FOR* More... Thrombocytopenia (HCC) [D69.6] INVALID FOR* More... Respiratory failure with hypoxia (HCC) [J96.91] INVALID FOR*07/14/2017 More... Bacteremia [R78.81] INVALID FOR*07/14/2017 More... Chronic kidney disease, stage 4, severely decre*INVALID FOR* Anemia in stage 4 chronic kidney disease (HCC) *INVALID FOR* Iron malabsorption [K90.9] INVALID FOR* S/P partial gastrectomy [Z90.3] INVALID FOR* Vitamin B12 deficiency anemia due to intrinsic *INVALID FOR* Prescriptions ordered this encounter Disp Refills Start End PODOFILOX 0.5 % TOPICAL GEL 3.5 g 2 03/04/2018 03/07/2018 Route: TOPICAL Sig: Apply 1 application to affected area twice daily for 3 days. Withhold treatment for 4days; may repeat cycles up to 4 times Medications Discontinued During This Encounter Podofilox (CONDYLOX) 0.5 % gel 3.5 g 0 04/16/2016 03/04/2018 Route: TOPICAL Sig: Apply 1 application to affected area twice daily for 3 days. Withhold treatment for 4days; may repeat cycles up to 4 times Disc: Reason for discontinue is not on file. Encounter Status:Closed by KERI ADAME on 03/04/18 PROGRESS Observed: 02/16/2018 Status: COMPLETED Source: [place] 1:05 PM [facility] REPOSITORY HNO ID: [id number] Author: Alex Tian Service: (none) Author Type: Physician Type: Progress Notes Filed: 02/17/2018 7:07 AM Note Text: PATIENT NAME: Val Valverde. CLINIC NO: [id number]. ATTENDING PHYSICIAN: Alex Tian MD. DATE OF SERVICE: 02/16/2018 ?? DIAGNOSIS: Anemia of chronic disease secondary stage IV renal failure; status- post partial gastrectomy for stage IB gastric cancer AND History of renal transplant. ?? HPI: This is a 46-year-old woman from [facility] who was adopted into a family in the [facility] at 1-1/2 years of age. In 2000, she had epigastric abdominal pain, was diagnosed with gastric carcinoma, had a radical near-total gastrectomy with Layne-en-Y gastrojejunostomy in 2000. She underwent postoperative chemotherapy and had complications of kidney issues resulting in a kidney transplant on February 21, 2010. She was previously on Procrit /Aranesp injection for treatment of her anemia. However, after her kidney transplant in 2010, her anemia had resolved. ?? There was a question at that time whether or not she had CMV infection as well. She was also noted to have condyloma acuminata. She was seen for weight loss and epigastric pain and had an EGD on November 07, 2015, by Dr. Jacob Belcher who noted normal esophagus, subtotal gastrectomy, and a gastrojejunal anastomosis with an ulcerations. Biopsies showed active enteritis, focal subepithelial collagen deposits, and ulcer with CMV inclusions present. She was seen by Dr. Silva of Infectious Disease for treatment of the CMV anastomotic ulcer in the setting of chronic immunosuppression and was placed on ganciclovir. Since 3 months ago, she had a moderate anemia with increased fatigue. However she had no recent blood transfusion. Evaluation in April show normal iron, vitamin B12 and folic acid level. Her erythropoietin level was decreased (27.2). Patient has no symptom of gastritis, epigastric pain, hematemesis or melena. Patient denies frequent headaches, palpitations, dizziness or lightheadedness. She has no cough or shortness of breath. She had a problem with diarrhea from pancreatic insufficiency. She denied any change in appetite or weight loss. ?? Current treatment: Aranesp 100 mcg every 4 weeks ? Interim history: [place] is doing well with Aranesp injection. Her anemia has improved and she is asymptomatic. She has no abdominal pain, intractable nausea or?vomiting, or melena. Patient has no chest pain or shortness of breath. Her renal functionhas worsened recently, but her urine output has been stable with her transplanted kidney. She has no change in bowel habits, rectal bleeding or melena. she denied jaundice, but her stool has been clinically color recently. ? All medications AND allergies updated and reviewed by me. ? REVIEW OF SYSTEMS: ?? CONSTITUTIONAL: No fevers, chills, nightsweats, unintended weight loss or fatigue HEENT: Denies frequent or severe heaches, nasal congestion/sinus symptoms, problematic allergy problems. EYES: No diplopia or blurry vision. CARDIOVASCULAR: No chest pain, dyspnea, palpitations, orthopnea, PND, ankle edema. PULM: No dyspnea, unexplained cough. GI: No dysphagia/odynophagia, problematic reflux, constipation, diarrhea, changes in stool habits, hematochezia, melena. : No new urinary complaints, including dysuria, gross hematuria or pyuria. NEURO: No new balance problems, peripheral weakness/paresthesias or numbness of concern. MUSC-SKEL: No new joint pain, swelling, or erythema. PSY: No concerns regarding depression, anxiety or panic. INTEGUMENTARY: No new skin changes (rash, new or changing mole, new growth) ? PHYSICAL EXAMINATION: 47 -year-old lady, thin but not cachectic in no acute distress BP 146/99 Pulse 95 Temp (Src) 98.8 (Oral) Wt 77 lb (34.9kg) HEENT: Head is normocephalic, atraumatic. Sclerae white, conjunctivae pink. PEERL. EOMs are intact. Oropharynx is benign. Complexion pale LYMPHATICS: There is no palpable adenopathy in the neck, supraclavicular region, axillae, or groin. LUNGS: Lungs are clear to percussion and auscultation. HEART: Heart is normal without murmurs, gallops, or rubs. ABDOMEN: Soft and nontender without organomegaly. No masses can be palpated. EXTREMITIES: Are without edema. 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 LABORATORY DATA: Component Latest Ref Rng AND Units 02/16/2018 Hemoglobin, [place] 11.5 - 15.5 g/dL 9.3 (L) Hematocrit, Kesha 36.0 - 46.0 % 28.7 (L) Component Latest Ref Rng AND Units 02/16/2018 Iron 41 - 186 ug/dL 72 TIBC 232 - 386 ug/dL 209 (L) Transferrin Saturation 15 - 57 % 34 Prealbumin 17 - 36 mg/dL 35 Ferritin 14.7 - 205.1 ng/mL 1,022.0 (H) Component Latest Ref Rng AND Units 02/16/2018 Sodium, Whole Blood (iSTAT) 132 - 148 mmol/L 144 Potassium, Whole Blood (iSTAT) 3.5 - 5.0 mmol/L 3.6 Chloride, Whole Blood (iSTAT) 98 - 110 mmol/L 111 (H) Ionized Calcium, WB (iSTAT) 1.08 - 1.30 mmol/L 1.08 TCO2, Whole Blood (iSTAT) 23 - 32 mmol/L 22 (L) Glucose, Whole Blood (iSTAT) 65 - 100 mg/dL 87 BUN, Whole Blood (iSTAT) 8 - 25 mg/dL 49 (H) Creatinine, Whole Blood (iSTAT) 0.70 - 1.40 mg/dL 4.80 (H) Anion Gap, Whole Blood (iSTAT) 0 - 15 mmol/L 11 eGFR- 12 eGFR-All Other Races . 10 ASSESSMENT: 47-year-old female with anemia of chronic disease secondary to moderately-severe stage IV renal failure. 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 ?? PLAN:?This patient is symptomatic from her anemia. Continue Aranesp 100mcg subcutaneous every 28?days for hemoglobin less than 10 gm/dl. monitor HANDH every 4 weeks. Repeat iron studies, reticulocyte count and?BMP every 3 months. OV in 6 months. Continue ferrous gluconate 150mg twice daily. Repeat CBC, CMP OV in 6 months. Follow up with nephrology in the renal transplant team this month because of worsening renal function. Alex Tian MD Cc: Bryan Koo, ACCOUNTING MACHINE MECHANIC KESHA ISTAT BMP Collected: 02/16/2018 Status: F Source: [facility] 10[facility] TYPE CODE TESTS RESULT OUT OF REFERENCE UNITS RANGE LAB NAWB 132-148 mmol/L Sodium, Whole 144 Bld LAB K1WB 3.5-5.0 mmol/L Potassium,Who 3.6 le Bld LAB CLWB 98-110 mmol/L High Chloride, 111 Whole Bld LAB ICAWB 1.08-1.30 mmol/L Ionized 1.08 Calcium, WB Result Comment: Please note: This value represents ionized calcium not total calcium. LAB CO2WB 23-32 mmol/L Low TCO2, Whole Blood 22 LAB GLUWB 65-100 mg/dL Glucose, Whole Bld 87 LAB BUNWB 8-25 mg/dL High BUN, Whole Blood 49 LAB BCRET 0.70-1.40 mg/dL High Creatinine,Wh ole Bld 4.80 LAB AGAPWB 0-15 mmol/L Anion Gap, Whole Bld 11 LAB GFRAA eGFR- Amer. 12 LAB GFRNAA . eGFR-All Other Races 10 Result Comment: eGFR (Estimated GFR) Units of measure: mL/min/1.73 meters squared eGFR is derived from the reexpressed MDRD Study equation using the following parameters: serum creatinine, age, gender and race. The creatinine assay has been calibrated to be traceable to IDMS. An eGFR <60 mL/min/1.73m2 for >3 months is consistent with chronic kidney disease. Refer to KDOQI guidelines for clinical interpretation. In patients with unstable renal function, e.g. those with acute kidney injury, the eGFR may not accurately reflect actual GFR. KESHA HEMATOCRIT Collected: 02/16/2018 Status: F Source: [place] 10:50 AM [facility] REPOSITORY TYPE CODE TESTS RESULT OUT OF REFERENCE UNITS RANGE LAB WHCT 36.0-46.0 % Low Kesha Hematocrit 28.7 Result Comment: Test performed at: [facility], [address] [place] [address] Rd[address] [place] [address]. KESHA HEMOGLOBIN Collected: 02/16/2018 Status: F Source: [place] 10:50 AM [facility] REPOSITORY TYPE CODE TESTS RESULT OUT OF REFERENCE UNITS RANGE LAB WHGB 11.5-15.5 g/dL Low Kesha Hemoglobin 9.3 Result Comment: Test performed at: [facility], [address] [place] [address] Rd[address] [place] [address]. CBC AND DIFFERENTIAL Collected: 02/16/2018 Status: F Source: [place] 10:50 AM [facility] REPOSITORY TYPE CODE TESTS RESULT OUT OF REFERENCE UNITS RANGE LAB WBC 3.70-11.00 k/uL WBC 9.38 LAB RBC 3.90-5.20 m/uL Low RBC 2.54 LAB HGB 11.5-15.5 g/dL Low Hemoglobin 9.3 LAB HCT 36.0-46.0 % Low Hematocrit 30.0 LAB MCV 80.0-100.0 fL MCV High 118.1 LAB MCH 26.0-34.0 pG MCH High 36.6 LAB MCHC 30.5-36.0 g/dL MCHC 31.0 LAB RDWCV 11.5-15.0 % RDW-CV 14.2 LAB PLTCT 150-400 k/uL Platelet Count 172 LAB MPV 9.0-12.7 fL MPV 11.9 LAB ANEUT % Neut% 69.9 LAB AANEUT 1.45-7.50 k/uL Abs Neut 6.56 LAB ALYMP % Lymph% 15.6 LAB AALYMP 1.00-4.00 k/uL Abs Lymph 1.46 LAB AMONO % [place]% 12.6 LAB AAMONO <0.87 k/uL Abs [place] High 1.18 LAB AEOS % Eosin% 1.6 LAB AAEOS <0.46 k/uL Abs Eosin 0.15 LAB ABASO % Baso% 0.3 LAB AABASO <0.11 k/uL Abs Baso 0.03 LAB AUNRBC 0 /100 WBC NRBCs 0.0 LAB ABNRBC <0.01 k/uL Absolute nRBC <0.01 LAB DTYP DTYPE Auto Diff Performed By: #### CBCDIF, CMP, MG1, PREALB #### [facility] [address] [place], [place] [address] COMP METABOLIC PANEL Collected: 02/16/2018 Status: F Source: [place] 10:50 AM [facility] REPOSITORY TYPE CODE TESTS RESULT OUT OF REFERENCE UNITS RANGE LAB TP 6.3-8.0 g/dL Low Protein, Total 6.0 LAB ALB 3.9-4.9 g/dL Low Albumin 3.5 LAB CA 8.5-10.2 mg/dL Calcium, Total 8.5 LAB TBIL 0.2-1.3 mg/dL Bilirubin, Total 0.2 LAB ALKP 34-123 U/L Alkaline Phosphatase 80 LAB AST 13-35 U/L AST 22 LAB GLU 74-99 mg/dL Glucose 83 Result Comment: The [place] [employer] (ADA) provides guidance for cutoff values for fasting glucose and random glucose. The ADA defines fasting as no caloric intake for at least 8 hours. Fas ting plasma glucose results between 100 to 125 mg/dL indicate increased risk for diabetes (prediabetes). Fasting plasma glucose results greater than or equal to 126 mg/dL meet the criteria for diagnosis of diabetes. In the absence of unequivocal hyperglycemia, results should be confirmed by repeat testing. In a patient with classic symptoms of hyperglycemia or hyperglycemic crisis, random plasma glucose results greater than or equal to 200 mg/dL meet the criteria for diagnosis of diabetes. Reference: Standards of Medical Care in Diabetes 2016, [place] [employer]. Diabetes Care. 2016.39(Suppl 1). LAB BUN 7-21 mg/dL BUN High 55 LAB CRET 0.58-0.96 mg/dL Creatinine High 4.41 LAB NA 136-144 mmol/L Sodium 144 LAB K 3.7-5.1 mmol/L Potassium 3.8 LAB CL 97-105 mmol/L Chloride High 110 LAB CO2 22-30 mmol/L Low CO2 18 LAB AGAP 9-18 mmol/L Anion Gap 16 LAB ALT 7-38 U/L ALT 14 LAB GFRAA eGFR- Amer. 13 LAB GFRNAA . eGFR-All Other Races 11 Result Comment: eGFR (Estimated GFR) Units of measure: mL/min/1.73 meters squared eGFR is derived from the reexpressed MDRD Study equation using the following parameters: serum creatinine, age, gender and race. The creatinine assay has been calibrated to be traceable to IDMS. An eGFR <60 mL/min/1.73m2 for >3 months is consistent with chronic kidney disease. Refer to KDOQI guidelines for clinical interpretation. In patients with unstable renal function, e.g. those with acute kidney injury, the eGFR may not accurately reflect actual GFR. Performed By: #### CBCDIF, CMP, MG1, PREALB #### [facility] [address] [place], [place] [address] MAGNESIUM Collected: 02/16/2018 Status: F Source: [place] 10:50 AM [facility] REPOSITORY TYPE CODE TESTS RESULT OUT OF REFERENCE UNITS RANGE LAB MG 1.7-2.3 mg/dL Low Magnesium 1.5 Performed By: #### CBCDIF, CMP, MG1, PREALB #### [place] [address] PREALBUMIN Collected: 02/16/2018 Status: F Source: [place] 10:50 AM [facility] REPOSITORY TYPE CODE TESTS RESULT OUT OF REFERENCE UNITS RANGE LAB PREALB 17-36 mg/dL Prealbumin 35 Performed By: #### CBCDIF, CMP, MG1, PREALB #### [place] [address] IRON AND TIBC Collected: 02/16/2018 Status: F Source: [place] 10:50 AM [facility] REPOSITORY TYPE CODE TESTS RESULT OUT OF REFERENCE UNITS RANGE LAB IRN 41-186 ug/dL Iron 72 LAB TIBC 232-386 ug/dL Low TIBC 209 LAB SAT 15-57 % Transferrin Saturatn 34 Performed By: #### IRON, FERR #### [place] [address] FERRITIN Collected: 02/16/2018 Status: F Source: [place] 10:50 AM [facility] REPOSITORY TYPE CODE TESTS RESULT OUT OF REFERENCE UNITS RANGE LAB FERR 14.7-205.1 ng/mL High Ferritin 1022.0 Performed By: #### IRON, FERR #### [place] [address] CNOVSP Observed: 02/16/2018 Status: COMPLETED Source: [place] 10:50 AM [facility] REPOSITORY Visit (SP) Office (HEMAWS) SALVAIL,VAL S ([id number]) 1970 F TRN Date Time Provider Department 02/16/18 10:50 AM ALEX TIAN During your visit today, we recorded the following information about you: Temperature Pulse Blood pressure Weight 98.8 degrees 95/minute 146/99 34.9 kg Alana Millan LPN 02/16/2018 11:20 AM Signed Est patient. Six month office visit. Discus recent labs. Alana Millan LPN 02/16/2018 11:34 AM Signed Aranesp injection administered RLQ, tolerated well, no immediate adverse reactions noted. Alana Tian MD 02/17/2018 7:07 AM Signed PATIENT NAME: Val Valverde. CLINIC NO: [id number]. ATTENDING PHYSICIAN: Alex Tian MD. DATE OF SERVICE: 02/16/2018 ?? DIAGNOSIS: Anemia of chronic disease secondary stage IV renal failure; status- post partial gastrectomy for stage IB gastric cancer AND History of renal transplant. ?? HPI: This is a 46-year-old woman from [facility] who was adopted into a family in the [facility] at 1-1/2 years of age. In 2000, she had epigastric abdominal pain, was diagnosed with gastric carcinoma, had a radical near-total gastrectomy with Layne-en-Y gastrojejunostomy in 2000. She underwent postoperative chemotherapy and had complications of kidney issues resulting in a kidney transplant on February 21, 2010. She was previously on Procrit /Aranesp injection for treatment of her anemia. However, after her kidney transplant in 2010, her anemia had resolved. ?? There was a question at that time whether or not she had CMV infection as well. She was also noted to have condyloma acuminata. She was seen for weight loss and epigastric pain and had an EGD on November 07, 2015, by Dr. Jacob Belcher who noted normal esophagus, subtotal gastrectomy, and a gastrojejunal anastomosis with an ulcerations. Biopsies showed active enteritis, focal subepithelial collagen deposits, and ulcer with CMV inclusions present. She was seen by Dr. Silva of Infectious Disease for treatment of the CMV anastomotic ulcer in the setting of chronic immunosuppression and was placed on ganciclovir. Since 3 months ago, she had a moderate anemia with increased fatigue. However she had no recent blood transfusion. Evaluation in April show normal iron, vitamin B12 and folic acid level. Her erythropoietin level was decreased (27.2). Patient has no symptom of gastritis, epigastric pain, hematemesis or melena. Patient denies frequent headaches, palpitations, dizziness or lightheadedness. She has no cough or shortness of breath. She had a problem with diarrhea from pancreatic insufficiency. She denied any change in appetite or weight loss. ?? Current treatment: Aranesp 100 mcg every 4 weeks ? Interim history: [place] is doing well with Aranesp injection. Her anemia has improved and she is asymptomatic. She has no abdominal pain, intractable nausea or?vomiting, or melena. Patient has no chest pain or shortness of breath. Her renal functionhas worsened recently, but her urine output has been stable with her transplanted kidney. She has no change in bowel habits, rectal bleeding or melena. she denied jaundice, but her stool has been clinically color recently. ? All medications AND allergies updated and reviewed by me. ? REVIEW OF SYSTEMS: ?? CONSTITUTIONAL: No fevers, chills, nightsweats, unintended weight loss or fatigue HEENT: Denies frequent or severe heaches, nasal congestion/sinus symptoms, problematic allergy problems. EYES: No diplopia or blurry vision. CARDIOVASCULAR: No chest pain, dyspnea, palpitations, orthopnea, PND, ankle edema. PULM: No dyspnea, unexplained cough. GI: No dysphagia/odynophagia, problematic reflux, constipation, diarrhea, changes in stool habits, hematochezia, melena. : No new urinary complaints, including dysuria, gross hematuria or pyuria. NEURO: No new balance problems, peripheral weakness/paresthesias or numbness of concern. MUSC-SKEL: No new joint pain, swelling, or erythema. PSY: No concerns regarding depression, anxiety or panic. INTEGUMENTARY: No new skin changes (rash, new or changing mole, new growth) ? PHYSICAL EXAMINATION: 47 -year-old lady, thin but not cachectic in no acute distress BP 146/99 Pulse 95 Temp (Src) 98.8 (Oral) Wt 77 lb (34.9kg) HEENT: Head is normocephalic, atraumatic. Sclerae white, conjunctivae pink. PEERL. EOMs are intact. Oropharynx is benign. Complexion pale LYMPHATICS: There is no palpable adenopathy in the neck, supraclavicular region, axillae, or groin. LUNGS: Lungs are clear to percussion and auscultation. HEART: Heart is normal without murmurs, gallops, or rubs. ABDOMEN: Soft and nontender without organomegaly. No masses can be palpated. EXTREMITIES: Are without edema. 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 LABORATORY DATA: Component Latest Ref Rng AND Units 02/16/2018 Hemoglobin, [place] 11.5 - 15.5 g/dL 9.3 (L) Hematocrit, [place] 36.0 - 46.0 % 28.7 (L) Component Latest Ref Rng AND Units 02/16/2018 Iron 41 - 186 ug/dL 72 TIBC 232 - 386 ug/dL 209 (L) Transferrin Saturation 15 - 57 % 34 Prealbumin 17 - 36 mg/dL 35 Ferritin 14.7 - 205.1 ng/mL 1,022.0 (H) Component Latest Ref Rng AND Units 02/16/2018 Sodium, Whole Blood (iSTAT) 132 - 148 mmol/L 144 Potassium, Whole Blood (iSTAT) 3.5 - 5.0 mmol/L 3.6 Chloride, Whole Blood (iSTAT) 98 - 110 mmol/L 111 (H) Ionized Calcium, WB (iSTAT) 1.08 - 1.30 mmol/L 1.08 TCO2, Whole Blood (iSTAT) 23 - 32 mmol/L 22 (L) Glucose, Whole Blood (iSTAT) 65 - 100 mg/dL 87 BUN, Whole Blood (iSTAT) 8 - 25 mg/dL 49 (H) Creatinine, Whole Blood (iSTAT) 0.70 - 1.40 mg/dL 4.80 (H) Anion Gap, Whole Blood (iSTAT) 0 - 15 mmol/L 11 eGFR- 12 eGFR-All Other Races . 10 ASSESSMENT: 47-year-old female with anemia of chronic disease secondary to moderately-severe stage IV renal failure. 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 ?? PLAN:?This patient is symptomatic from her anemia. Continue Aranesp 100mcg subcutaneous every 28?days for hemoglobin less than 10 gm/dl. monitor HANDH every 4 weeks. Repeat iron studies, reticulocyte count and?BMP every 3 months. OV in 6 months. Continue ferrous gluconate 150mg twice daily. Repeat CBC, CMP OV in 6 months. Follow up with nephrology in the renal transplant team this month because of worsening renal function. Alex Tian MD Cc: Bryan Koo CNP Referring Provider: ALEX TIAN [[id number]] Allergies As of Date: 02/16/2018 Noted Allergy Reaction SULFA (SULFONAMIDE ANTIBIOTICS) 04/07/2001 4 - Hives Comments: hives NSAIDS (NON-STEROIDAL ANTI-INFLAM*04/23/2016 5 - Intolerance Date Reviewed: 02/16/2018 Reviewed by: Alana Millan LPN - Fully Assessed Reason for Visit: Established Patient [[id number]] Primary Visit Diagnosis:Anemia in stage 4 chronic kidney disease (HCC) [N18.4, D63.1] Other Visit Diagnoses:Kidney transplant recipient [Z94.0] Stage 4 chronic kidney disease (HCC) [N18.4] Order(s):[] darbepoetin liu in polysorbat 100 mcg injection (ARANESP)Disp: Rfl: Level of Service: EST PATIENT VISIT LEVEL 3 [[id number]] Disposition: Return in about 6 months (around 08/17/2018). Follow-up and Disposition History Recorded Prescriptions as of 02/16/2018 Sig: ESOMEPRAZOLE MAGNESIUM 40 MG * Take 1 capsule by mouth once * TACROLIMUS 1 MG CAPSULE Take (2) capsules by mouth ev* POLYSACCHARIDE IRON COMPLEX 1* Take 1 capsule by mouth once * AMLODIPINE 5 MG TABLET Take 1 tablet by mouth once d* CHOLECALCIFEROL (VITAMIN D3) * Take 1 capsule by mouth every* [id number]-[id number] 12,00* Take by mouth three times raad* SODIUM BICARBONATE 650 MG TAB* Take 1 tablet by mouth three * DRONABINOL 2.5 MG CAPSULE Take 1 capsule by mouth four * CYANOCOBALAMIN (VIT B-12) 1,0* Inject 1 mL intramuscularly o* BIOTIN ORAL Take by mouth once daily. CALCIUM 600 ORAL Take by mouth twice daily. MULTI ORAL Take by mouth. PREDNISONE 5 MG TABLET Take 1 tablet by mouth once d* THERAPEUTIC MULTIVITAMIN TABL* Take 1 tablet by mouth twice * GABAPENTIN ORAL Take 300 mg by mouth twice da* OXYCODONE 5 MG TABLET Take 1 tablet by mouth every * LEVONORGESTREL 20 MCG/24 HR (* 1 Each by INTRAUTERINE route * TIZANIDINE 4 MG TABLET Take 1 tablet by mouth every * MISOPROSTOL 200 MCG TABLET Insert 2 tables vaginally nig* Patient not taking: Reported on 02/16/2018 LORAZEPAM 1 MG TABLET Take 1 tablet by mouth as dir* Patient not taking: Reported on 02/16/2018 CALCIUM CITRATE-ERGOCALCIFERO* Take 1 tablet by mouth twice * Patient not taking: Reported on 01/30/2018 SYRINGE (DISPOSABLE) 1 ML 1 mL as directed. ALBUTEROL SULFATE HFA 90 MCG/* 2 Puffs every 4 hours as need* Patient not taking: Reported on 01/30/2018 COMPOUNDED PRESCRIPTION Outpatient physical therapy Patient not taking: Reported on 01/30/2018 Problem List As Of Date 02/16/2018 Noted Resolved Anemia in chronic kidney disease [N18.9, D63.1] INVALID FOR* More... Chronic kidney disease, stage III (moderate) [N*INVALID FOR*08/27/2017 More... History of gastric cancer [Z85.028] INVALID FOR*12/30/2016 More... 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 GERD (gastroesophageal reflux disease) [K21.9] INVALID FOR* Weight loss [R63.4] INVALID FOR* More... CRD (chronic renal disease) [N18.9] INVALID FOR* Reflux esophagitis [K21.0] INVALID FOR* GIB (gastrointestinal bleeding) [K92.2] INVALID FOR*12/30/2016 More... Acute blood loss anemia [D62] INVALID FOR* More... 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 Essential hypertension [I10] INVALID FOR* More... Peptic ulcer disease with hemorrhage [K27.4] INVALID FOR*12/30/2016 Okjey-ys-eizywit kidney injury (HCC) [N17.9, N1*INVALID FOR*12/30/2016 More... Nausea AND vomiting [R11.2] INVALID FOR*12/30/2016 More... GI bleed [K92.2] INVALID FOR* Priority: C More... History of gastric cancer [Z85.028] INVALID FOR* More... Pancytopenia (HCC) [D61.818] INVALID FOR* Priority: B Central line infection [T80.219A] INVALID FOR*02/27/2017 Priority: A More... Severe protein-calorie malnutrition (HCC) [E43] INVALID FOR* More... Hx of transfusion [Z92.89] INVALID FOR* More... Pneumonia [J18.9] INVALID FOR*07/14/2017 Priority: A More... Pancreatic insufficiency [K86.89] INVALID FOR* More... JENNIFFER (acute kidney injury) (HCC) [N17.9] INVALID FOR*07/14/2017 More... Macrocytic anemia [D53.9] INVALID FOR* More... Thrombocytopenia (HCC) [D69.6] INVALID FOR* More... Respiratory failure with hypoxia (HCC) [J96.91] INVALID FOR*07/14/2017 More... Bacteremia [R78.81] INVALID FOR*07/14/2017 More... Chronic kidney disease, stage 4, severely decre*INVALID FOR* Anemia in stage 4 chronic kidney disease (HCC) *INVALID FOR* Iron malabsorption [K90.9] INVALID FOR* S/P partial gastrectomy [Z90.3] INVALID FOR* Vitamin B12 deficiency anemia due to intrinsic *INVALID FOR* Visit Notes: >> Alana Millan LPN FriFeb 16, 2018 11:04 AM Status: Signed Est patient. Six month office visit. Discus recent labs. Alana Millan LPN >> Alana Millan LPN FriFeb 16, 2018 11:32 AM Status: Signed Aranesp injection administered RLQ, tolerated well, no immediate adverse reactions noted. Alana Millan LPN Encounter Status:Closed by ALEX TIAN MD on 02/17/18 TACROLIMUS / [id number] Collected: 02/16/2018 Status: F Source: [place] 10:50 AM [facility] REPOSITORY TYPE CODE TESTS RESULT OUT OF REFERENCE UNITS RANGE LAB FK506 5.0-20.0 ng/mL Tacrolimus / 5.6 FK506 Result Comment: These reference ranges are provided as a general recommendation. Individualized target levels for a given patient will depend on many factors (including the type of organ transplant, ti me since transplantation, concurrent medications, and other clinical factors), and should be assessed by those health care providers experienced in the management of immunosuppression. Reference ranges and high/low indicator flags are provided as general guidelines only. The treating physician must determine appropriate target levels/dosing based on the specific clinical situation. Test performed by chemiluminescent immunoassay using [employer] Staff Member. Performed By: #### FK506 #### [facility] [address] [place], [place] [address] GC/CHLAMYDIA AMPLIF Collected: 02/04/2018 Status: F Source: [place] 5:06 PM [facility] REPOSITORY TYPE CODE TESTS RESULT OUT OF REFERENCE UNITS RANGE LAB GCCTSR GC/Chlam Amp Cervix Source LAB GCAMPL GC Negative Amplification for Neisseria gonorrhoeae by amplification. LAB CLAMPL Chlamydia Negative Amplif for Chlamydia trachomatis by amplification. Performed By: #### GCCT #### [facility] [address] [place], [place] [address] PROGRESS Observed: 02/04/2018 Status: COMPLETED Source: [place] 2:35 PM [facility] REPOSITORY HNO ID: [id number] Author: Emir Fowler Service: (none) Author Type: Physician Type: Progress Notes Filed: 02/04/2018 3:20 PM Note Text: Val Valverde presents today for IUD removal and insertion for contraception. No LMP recorded. Patient is not currently having periods (Reason: IUD). GC/chlamydia: Collected today test: n/a, patient declines as she has not been sexually active for 1 year Side effects including irregular bleeding were discussed with the patient. She understands that it should be removed in 5 years or sooner if she desires a . IUD source: office provided IUD lot #: [id number] Exp date: 06/2020 UNIVERSAL PROTOCOL / SAFETY CHECKLIST Procedure to be performed: MIrena Removal and Reinsertion Sign in Communication: Completed Time Out: Team Confirms the Correct Patient, Correct Procedure, Correct Site and Site Marking, Correct Position (if applicable), Prep and Dry Time (if applicable). Affirmation of Time Out: YES Sign Out Discussion: Completed The IUD strings were visualized, and the IUD was easily removed using ring forceps. About 5 cc of 1% lidocaine was used for a paracervical block. The uterus sounded to 6 cm and the uterus is midposition. After prepping the cervix with betadine and using sterile technique, the Mirena IUD was inserted after the cervix was dilated and the string was cut to 3 cm from the external os of the cervix. Patient tolerated procedure well. PLAN: Patient was advised to observe for signs and symptoms of infection including but not limited to fever, malodorous vaginal discharge and/or pain. She was told to check the string monthly for accurate placement. Bleeding expectations were reviewed. Follow up in one month. Emir Fowler DO CNOV Observed: 02/04/2018 Status: COMPLETED Source: [place] 2:30 PM [facility] REPOSITORY Office Visit (WOOB) VAL VALVERDE ([id number]) 1970 F TRN Date Time Provider Department 02/04/18 2:30 PM EMIR FOWLER During your visit today, we recorded the following information about you: Blood pressure Weight 122/80 34.7 kg Emir Fowler MD 02/04/2018 3:20 PM Signed Val Valverde presents today for IUD removal and insertion for contraception. No LMP recorded. Patient is not currently having periods (Reason: IUD). GC/chlamydia: Collected today test: n/a, patient declines as she has not been sexually active for 1 year Side effects including irregular bleeding were discussed with the patient. She understands that it should be removed in 5 years or sooner if she desires a . IUD source: office provided IUD lot #: [id number] Exp date: 06/2020 UNIVERSAL PROTOCOL / SAFETY CHECKLIST Procedure to be performed: MIrena Removal and Reinsertion Sign in Communication: Completed Time Out: Team Confirms the Correct Patient, Correct Procedure, Correct Site and Site Marking, Correct Position (if applicable), Prep and Dry Time (if applicable). Affirmation of Time Out: YES Sign Out Discussion: Completed The IUD strings were visualized, and the IUD was easily removed using ring forceps. About 5 cc of 1% lidocaine was used for a paracervical block. The uterus sounded to 6 cm and the uterus is midposition. After prepping the cervix with betadine and using sterile technique, the Mirena IUD was inserted after the cervix was dilated and the string was cut to 3 cm from the external os of the cervix. Patient tolerated procedure well. PLAN: Patient was advised to observe for signs and symptoms of infection including but not limited to fever, malodorous vaginal discharge and/or pain. She was told to check the string monthly for accurate placement. Bleeding expectations were reviewed. Follow up in one month. DO Asia Smart MA 02/04/2018 2:35 PM Signed POST IUD INSTRUCTIONS You may have irregular bleeding during the first 3 months of use. You may have mild-severe cramping for the next 48 hours. You may use over the counter medication (Motrin, Tylenol) as needed. Your IUD must be removed or replaced in 3 years if you have a Mary, 5 years if you have a Mirena or Kyleena and 10 years if you have a Paragard. Call my office for signs/symptoms of infection such as severe cramping, fever, or unusual bleeding. Check for string placement as instructed by your doctor. If you have any additional questions, please contact the office. Asia Ramirez MA 02/04/2018 3:26 PM Signed Addended by: ASIA RAMIREZ MA on: 02/04/2018 03:26 PM Modules accepted: Orders Emir Fowler MD 02/04/2018 5:06 PM Signed Addended by: EMIR FOWLER MD on: 02/04/2018 05:06 PM Modules accepted: Orders Referring Provider: KERI ADAME ([facility]) [[id number]] Allergies As of Date: 02/04/2018 Noted Allergy Reaction SULFA (SULFONAMIDE ANTIBIOTICS) 04/07/2001 4 - Hives Comments: hives NSAIDS (NON-STEROIDAL ANTI-INFLAM*04/23/2016 5 - Intolerance Date Reviewed: 02/04/2018 Reviewed by: Asia Ramirez - Fully Assessed Reason for Visit: IUD Removal [1950] Insertion Of IUD [291] Reason For Visit History Recorded Primary Visit Diagnosis:Encounter for insertion of mirena IUD [Z30.430] Other Visit Diagnosis:Encounter for IUD removal [Z30.432] Order(s):INSERT INTRAUTERINE DEVICE [6004792] Order #: [id number] [] levonorgestrel 20 mcg/24 hr (5 years) 1 Each intrauterine device (MIRENA)Disp: Rfl: GC/CHLAMYDIA DNA DET [SQGCCAMP] Order #: [id number] Prescriptions as of 02/04/2018 Sig: [id number]-[id number]-[id number] 12,00* Take by mouth three times raad* MISOPROSTOL 200 MCG TABLET Insert 2 tables vaginally nig* LORAZEPAM 1 MG TABLET Take 1 tablet by mouth as dir* SODIUM BICARBONATE 650 MG TAB* Take 1 tablet by mouth three * DRONABINOL 2.5 MG CAPSULE Take 1 capsule by mouth four * AMLODIPINE 5 MG TABLET Take 1 tablet by mouth once d* TACROLIMUS 1 MG CAPSULE Take (2) capsules by mouth ev* POLYSACCHARIDE IRON COMPLEX 1* Take 1 capsule by mouth once * CHOLECALCIFEROL (VITAMIN D3) * Take 1 capsule by mouth every* CYANOCOBALAMIN (VIT B-12) 1,0* Inject 1 mL intramuscularly o* SYRINGE (DISPOSABLE) 1 ML 1 mL as directed. ESOMEPRAZOLE MAGNESIUM 40 MG * Take 1 capsule by mouth once * BIOTIN ORAL Take by mouth once daily. CALCIUM 600 ORAL Take by mouth twice daily. MULTI ORAL Take by mouth. PREDNISONE 5 MG TABLET Take 1 tablet by mouth once d* THERAPEUTIC MULTIVITAMIN TABL* Take 1 tablet by mouth twice * GABAPENTIN ORAL Take 300 mg by mouth twice da* OXYCODONE 5 MG TABLET Take 1 tablet by mouth every * LEVONORGESTREL 20 MCG/24 HR (* 1 Each by INTRAUTERINE route * TIZANIDINE 4 MG TABLET Take 1 tablet by mouth every * CALCIUM CITRATE-ERGOCALCIFERO* Take 1 tablet by mouth twice * Patient not taking: Reported on 01/30/2018 ALBUTEROL SULFATE HFA 90 MCG/* 2 Puffs every 4 hours as need* Patient not taking: Reported on 01/30/2018 COMPOUNDED PRESCRIPTION Outpatient physical therapy Patient not taking: Reported on 01/30/2018 Problem List As Of Date 02/04/2018 Noted Resolved Anemia in chronic kidney disease [N18.9, D63.1] INVALID FOR* More... Chronic kidney disease, stage III (moderate) [N*INVALID FOR*08/27/2017 More... History of gastric cancer [Z85.028] INVALID FOR*12/30/2016 More... 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 GERD (gastroesophageal reflux disease) [K21.9] INVALID FOR* Weight loss [R63.4] INVALID FOR* More... CRD (chronic renal disease) [N18.9] INVALID FOR* Reflux esophagitis [K21.0] INVALID FOR* GIB (gastrointestinal bleeding) [K92.2] INVALID FOR*12/30/2016 More... Acute blood loss anemia [D62] INVALID FOR* More... 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 Essential hypertension [I10] INVALID FOR* More... Peptic ulcer disease with hemorrhage [K27.4] INVALID FOR*12/30/2016 Kbbtb-nc-ijyfork kidney injury (HCC) [N17.9, N1*INVALID FOR*12/30/2016 More... Nausea AND vomiting [R11.2] INVALID FOR*12/30/2016 More... GI bleed [K92.2] INVALID FOR* Priority: C More... History of gastric cancer [Z85.028] INVALID FOR* More... Pancytopenia (HCC) [D61.818] INVALID FOR* Priority: B Central line infection [T80.219A] INVALID FOR*02/27/2017 Priority: A More... Severe protein-calorie malnutrition (HCC) [E43] INVALID FOR* More... Hx of transfusion [Z92.89] INVALID FOR* More... Pneumonia [J18.9] INVALID FOR*07/14/2017 Priority: A More... Pancreatic insufficiency [K86.89] INVALID FOR* More... JENNIFFER (acute kidney injury) (HCC) [N17.9] INVALID FOR*07/14/2017 More... Macrocytic anemia [D53.9] INVALID FOR* More... Thrombocytopenia (HCC) [D69.6] INVALID FOR* More... Respiratory failure with hypoxia (HCC) [J96.91] INVALID FOR*07/14/2017 More... Bacteremia [R78.81] INVALID FOR*07/14/2017 More... Chronic kidney disease, stage 4, severely decre*INVALID FOR* Anemia in stage 4 chronic kidney disease (HCC) *INVALID FOR* Iron malabsorption [K90.9] INVALID FOR* S/P partial gastrectomy [Z90.3] INVALID FOR* Vitamin B12 deficiency anemia due to intrinsic *INVALID FOR* Other instructions from your clinician: POST IUD INSTRUCTIONS You may have irregular bleeding during the first 3 months of use. You may have mild-severe cramping for the next 48 hours. You may use over the counter medication (Motrin, Tylenol) as needed. Your IUD must be removed or replaced in 3 years if you have a Mary, 5 years if you have a Mirena or Kyleena and 10 years if you have a Paragard. Call my office for signs/symptoms of infection such as severe cramping, fever, or unusual bleeding. Check for string placement as instructed by your doctor. If you have any additional questions, please contact the office. Prescriptions ordered this encounter Disp Refills Start End LEVONORGESTREL 20 MCG/24 HR (5 YEARS* 02/04/2018 02/04/2018 Route: INTRAUTERINE Disposition: Return in about 5 weeks (around 03/11/2018) for Follow Up In 4-6 Weeks. Follow-up and Disposition History Recorded Encounter Status:Closed by EMIR FOWLER MD on 02/04/18 CNOV Observed: 01/30/2018 Status: COMPLETED Source: [place] 3:40 PM [facility] REPOSITORY Office Visit ([id number]) VAL VALVERDE ([id number]) 1970 F [facility] Date Time Provider Department 01/30/18 3:40 PM AUSTEN PIERSON GASTA5 During your visit today, we recorded the following information about you: Temperature Pulse Blood pressure Weight 98.5 degrees 95/minute 136/91 33.7 kg Height 1.511 m Austen Pierson MD 01/30/2018 5:47 PM Signed Follow Up Visit 1.25?[address] - Seen with ? Discussion and Plan from 12/11/17: DISCUSSION: We discussed at length options for her to increase her calories and that she needs to actively get 250 Kcal in each day to gain 1/2 lb/week until her next visit. She feels that she can do that. We will also have her restart vitamin B12 injections on a monthly basis. PLAN Patient has?a MyChart account. Order Duplex of legs to r/o DVT Escripted vitamin B12 injections To alter diet - decrease Magalys dedrick and try to increase intake RTC about [address] Barajas and Bri, PCP ? CHIEF COMPLAINT Follow up: Weight Loss ? HISTORY OF PRESENT ILLNESS Mrs. Valverde is a 47 yo woman who I saw for the first time on 10/06/17. She was referred by Dr. Barajas for weight loss. Originally, she was from[place] and was adopted?by a family in the [place] at 1-1/2 years of age. In 2000, she had epigastric abdominal pain?and was diagnosed with gastric carcinoma. She?had a radical near-total gastrectomy with Layne-en-Y gastrojejunostomy in that same year. She underwent postoperative chemotherapy and had complications of kidney issues resulting in a kidney transplant on February 21, 2010.?She was seen for weight loss and epigastric pain and had an EGD on November 07, 2015, by Dr. Belcher who noted normal esophagus, subtotal gastrectomy, and a gastrojejunal anastomosis with an ulcerations. Biopsies showed active enteritis, focal subepithelial collagen deposits, and ulcer with CMV inclusions present. She was seen by Dr. Silva of Infectious Disease for treatment of the CMV anastomotic ulcer in the setting of chronic immunosuppression and was placed on ganciclovir. She stated that before her gastric surgery she used to weigh about 129 lbs; she was down as low as 67 lbs during a hospitalization in June. She noted that she experienced bloating with eating. She would usually have a BM in the morning. She stated that she had been able to gain back some weight since she had been hospitalized. She stated that it had been discussed with her in the hospital about enteral and/or parenteral nutrition, but she had wanted to try on her own. She noted that since her gastric surgery and the kidney transplant that she had not weighted more than about 90 lbs. She stated that she would feel more functional if she were between 80-90 lbs. She noted that she did not like to eat too much because she experienced bloating that decreased her appetite. She would often have a Taco Burrell Cheese Roll up for breakfast with 1-1.5 cups of coffee with a little sugar and flavored creamer in it. She did not drink much water by itself. However, she admitted to being quite addicted to Magalys Dedrick. She liked the carbonation and would drink several of these per day. She stated that she did not like Ensure or Boost which would make me sick to my stomach and then would give her diarrhea. She had also tried Arcade Instant Breakfast, but while she had it in the house, she would usually forget that she had it and would choose the Magalys Dedrick instead. She stated that she had a past history of pancreatitis and had been on Creon for a long time. She had come for help with her weight. At her last visit in November 2017, she reported that she had been away in [place] for 3 weeks and thought that she had been doing better with her intake, but did not really gain any weight. She also noted that her left leg was a little more swollen than usual. She had still been drinking her Magalys Dedrick, but had also been drinking some other things like V-8 juice and other juices and water with protein in it. We discussed options at length, and she was not ready for any artificial means such as tube feeding. ? Today she states that she has not done as well as she ad hoped over the past few weeks. After her last visit, she had a stomach flu for 2 weeks and lost more weight, but finally recovered as did her appetite. She was supposed to get some IV fluid near home, but that did not happen. She had never heard about Oral Rehydration Solutions. She did not like the trial of OWYNs. I have reviewed the PMH, Social, FH and ROS from the visit on 10/06/17, and I have no changes or additions except what is in the HPI. Current Outpatient Prescriptions: ggffsx-eebmibes-wbwcuxj (CREON 12) 12,000-38,000 -60,000 unit cpDR Take by mouth three times daily. Disp: Rfl: miSOPROStol (CYTOTEC) 200 mcg tablet Insert 2 tables vaginally night prior to procedure and 2 tablets morning of procedure. Disp: 4 tablet Rfl: 0 LORazepam (ATIVAN) 1 mg tablet Take 1 tablet by mouth as directed for 49 days. Disp: 1 tablet Rfl: 0 sodium bicarbonate 650 mg tablet Take 1 tablet by mouth three times daily. Disp: 90 tablet Rfl: 1 dronabinol (MARINOL) 2.5 mg capsule Take 1 capsule by mouth four times daily for 30 days. Disp: 120 capsule Rfl: 0 amLODIPine (NORVASC) 5 mg tablet Take 1 tablet by mouth once daily. Disp: 90 tablet Rfl: 1 tacrolimus (PROGRAF) 1 mg capsule Take (2) capsules by mouth every morning and (1) capsule every evening - ICD 10 = Z94.0 kidney transplant 02/21/2010 Disp: 60 capsule Rfl: 0 iron polysaccharide complex (FERREX-150) 150 mg iron capsule Take 1 capsule by mouth once daily. Disp: Rfl: cholecalciferol, Vitamin D3, (VITAMIN D3) 50,000 unit cap capsule Take 1 capsule by mouth every 2 weeks. (ONE CAPSULE) FOR VITAMIN D DEFICIENCY Disp: Rfl: cyanocobalamin 1,000 mcg/mL soln Inject 1 mL intramuscularly once every month. Disp: 3 mL Rfl: 3 Syringe, Disposable, (B-D SYRINGE SLIP TIP 1CC) 1 mL syrg 1 mL as directed. Disp: 3 Syringe Rfl: 3 esomeprazole (NEXIUM) 40 mg capsule Take 1 capsule by mouth once daily. Disp: 30 capsule Rfl: 0 BIOTIN ORAL Take by mouth once daily. Disp: Rfl: calcium carbonate (CALCIUM 600 ORAL) Take by mouth twice daily. Disp: Rfl: no122/iron/folic acid ( MULTI ORAL) Take by mouth. Disp: Rfl: predniSONE (DELTASONE) 5 mg tablet Take 1 tablet by mouth once daily. Disp: 90 tablet Rfl: 3 therapeutic multivitamin (THERA VITAMIN) tablet Take 1 tablet by mouth twice daily. Disp: 60 tablet Rfl: 0 GABAPENTIN ORAL Take 300 mg by mouth twice daily. Disp: Rfl: oxyCODONE immediate release (ROXICODONE) 5 mg immediate release tablet Take 1 tablet by mouth every 8 hours as needed. Disp: Rfl: levonorgestrel (MIRENA) 20 mcg/24 hour (5 years) IUD 1 Each by INTRAUTERINE route one time only for 1 dose. Disp: 1 Each Rfl: 0 tiZANidine 4 mg tablet Take 1 tablet by mouth every 6 hours as needed (for muscle spasm). Disp: Rfl: 0 Calcium Citrate-Vitamin D2 1,500-200 mg-unit tab Take 1 tablet by mouth twice daily. (Patient not taking: Reported on 01/30/2018 ) Disp: Rfl: albuterol HFA (PROAIR HFA) 90 mcg/actuation inhaler 2 Puffs every 4 hours as needed for Wheezing/Shortness of Breath. Take as directed (Patient not taking: Reported on 01/30/2018 ) Disp: 1 Inhaler Rfl: 0 COMPOUNDED PRESCRIPTION Outpatient physical therapy (Patient not taking: Reported on 01/30/2018 ) Disp: 1 Each Rfl: 0 No current facility-administered medications for this visit. ALLERGIES Allergen Reactions - Sulfa (Sulfonamide * Hives hives - Nsaids (Non-Steroid* Intolerance WEIGHT HISTORY - GOAL WEIGHT = 90 lbs 01/14/17?- Weight 76?lbs, BMI 15.09; 06/18/17?- Weight 72?lbs, BMI 14.42; 07/31/17?- Weight 73?lbs, BMI 14.48; 10/06/17 - Weight?78 lbs, BMI 15.87; 12/11/17 - Weight?77 lbs, BMI 15.54; Today's Weight?74 lbs, BMI 14.78 PHYSICAL EXAMINATION BP 136/91 Pulse 95 Temp (Src) 98.5 (Oral) Ht 4' 11.5 (1.51m) Wt 74 lb 6.4 oz (33.7kg) SpO2 98% BMI 14.78 kg/(m2). UPDATE PE FROM 12/11/17 GENERAL APPEARANCE: Well developed, cachectic woman, alert and oriented in no acute distress. HEAD: Mild bitemporal wasting Ext: No edema PREVIOUSLY REVIEWED DATA 11/07/2015 (Dr. Jacob Belcher [facility]) EGD. Findings: ?The examined esophagus was normal. Evidence of a previous gastrectomy with a small gastric remnant. At the gastrojejunal surgical anastomosis there was a 1 X 2 cm ulcer with a white exudate without a visible vessel or other stigmata of bleeding. Biopsies were taken with a cold forceps for histology. The examined jejunum was normal for about 20 cm. SURGICAL PATHOLOGY. Gastrojejunal ulcer anastomosis, biopsy - Active enteritis with architectural distortion, focal subepithelial collagen deposition and detached fragments of fibrinopurulent debris consistent with ulcer, see comment. CMV inclusions are present. Comment: CMV and HSV immunostains were performed due to the presence of ulceration and CMV highlights viral inclusions. HSV shows nonspecific staining and no definitive HSV inclusions. 05/30/2016 (Dr. Andrey Barajas / [facility]) EGD. Findings: The esophagus was normal. LES at 40cm. Evidence of a patent Billroth I gastrojejunostomy was found. A gastric pouch with a normal size was found. This was traversed. There is persistence of a large anastomotic ulcer extending 3-4 cm down the jejunostomy limb. This was biopsied. The examined jejunum was normal. SURGICAL PATHOLOGY: Gastrojejunal anastomotic ulcer, biopsy - Active enteritis with fibrinopurulent debris consistent with ulcer, see comment. Positive for CMV antigens on immunostain. Comment: Given the background of active inflammation with ulcer, immunohistochemical stain for the infection of CMV antigens was performed and is positive, consistent with CMV-related enteritis. 08/01/2016 (Dr. Andrey Barajas / [facility]) EGD. Findings: Localized candidiasis was found in the middle third of the esophagus and in the lower third of the esophagus. Biopsies were taken with a cold forceps for histology. Evidence of a Billroth I anastomosis was found in the stomach. There is persistence of a large gastric ulcer wrapping into the duodenal segment. One non-bleeding cratered duodenal ulcer with no stigmata of bleeding was found in the first part of the duodenum. SURGICAL PATHOLOGY: A. Gastric pouch ulcer, biopsy ? Ulcerated small bowel mucosa with granulation tissue. Positive for CMV inclusions. See comment. B. Esophagus, biopsy ? Esophageal squamous mucosa with focal active inflammation. No evidence of intestinal metaplasia or dysplasia. Comment A. Immunohistochemical stain for CMV is performed in the presence of ulceration and is positive for viral inclusions consistent with CMV related enteritis. 09/25/2016 (Dr. Andrey Barajas AND Dr. Wilma Jones / [facility]) EGD. Findings: The examined esophagus was normal. The Z-line was regular and was found 36 cm from the incisors. Evidence of an antrectomy was found in the gastric body. Biopsies were taken from the gastric remnant with a cold forceps for histology. Estimated blood loss was minimal. One large non-bleeding cratered gastric ulcer with no stigmata of bleeding was found in the gastric body extending into the duodenum. Biopsies were taken with a cold forceps for CMV histology and culture. Estimated blood loss was minimal. The duodenum was normal. SURGICAL PATHOLOGY: Stomach, biopsy - Mild chronic inactive gastritis. No morphologic evidence of Helicobacter pylori. 11/01/2016 (Dr. Sahil Kurtz / [facility]) EGD. Findings: No gross lesions were noted in the entire esophagus. Evidence of a gastroenterostomy was found in the gastric antrum. Food residues were found in the residual gastric lumen which was deformed. This was characterized by ulceration at the anastomosis of approximately 2-3 cm and an intact staple line. Biopsies were taken with a cold forceps for histology and culture. The examined jejunal lumen appeared grossly normal. 11/17/2016 ([facility] / LAB) Gastric remnant, Biopsies ? Acute and Chronic gastritis. Immunohistochemical stain for Helicobacter pylori is negative for organisms. Comment: There are no cytologic features of CMV infection identified. This was evaluated using a laboratory developed test. 12/20/2016 (Dr. Prabhu Dahl AND Dr. Delano Segovia / [facility]) EGD. Findings: The examined esophagus was normal. Evidence of a Layne-en-Y gastrojejunostomy was found. This was not traversed. The eykjo-vc-vyzwhuz limb was characterized by ulceration with a clean base. There was a small amount of dark red blood (likely old blood) was seen in the gastric remnant with blood clot. The blood was suctioned but the clot could not be suctioned. There was no evidence of fresh blood in the stomach and no active site of bleeding was identified. There was inflammation at the site of G-J anastomosis and the scope was not advanced beyond the anastomosis. The anastomosis appeared intact. 12/21/2016 (Dr. Ruby Hernández / [facility]) EGD. Findings: The examined esophagus was normal. Evidence of a Layne-en-Y gastrojejunostomy was found. There was a large blood clot with dark old blood in the gastric pouch. The clot was located over the blind pouch and could not be suctioned due to which a large portion of underlying mucosa could not be examined. The gastrojejunal anastomosis was characterized by ulceration with oozing. The examined jejunum contained blood but no bleeding lesion seen. 12/22/2016 (Dr. Jacob Cruz / [facility]) EGD. Findings: The examined esophagus was normal. Evidence of a Layne-en-Y gastrojejunostomy was found. The gastrojejunal anastomosis was characterized by stenosis, erythema, friable mucosa and an area of ulceration at least 3 cm in length without a visible vessel or recent stimata of bleeding. This was traversed and were able to pass the endoscope into the jejunum beyond the GJ junction. There was an adherent blood clot. Hemostatic clips x 2 were placed at the base of the adherent clot. One area of possibly slight fresh bleeding was seen distal to the clot. One clip was applied. There was no bleeding following the procedure. The examined gastric pouch was normal, which was washed with evidence of old stingy thin blood clots but no active bleeding. The GJ anastomosis was located at 39 cm. 12/25/2016 (Dr. Ruby Hernández / [facility]) EGD. Findings: The examined esophagus was normal. Evidence of a Layne-en-Y gastrojejunostomy was found. The gastrojejunal anastomosis was characterized by clean based 5cm ulceration at the anastomosis. The remanant stomach pouch had a lot old blood and clots which were removed with a clot buster scope and bio-evac. There was no fresh bleeding source seen within the pouch. 2cm from the anastomosis 3 previously deployed clips were seen which were not bleeding. The area beyond the clips was devoid of any blood. Friable, edematous mucosa was seen from the area of ulceration to the clipped area which bled on contact. Biopsies were taken from around the ulcerated area again to evaluate. SURGICAL PATHOLOGY: Stomach, biopsy - Focal active enteritis and gastritis; negative for dysplasia and malignancy. Negative for CMV inclusions; see comment. Comment: Given the background of active inflammation and previous history of positive CMV inclusions, immunohistochemical stain for the infection of CMV antigens was performed and is negative. No microorganisms morphologically compatible with H. pylori-like organisms are identified on routine TAYLER stained sections. 02/19/2017 (Dr. Raman Almeida / [facility]) EGD. Findings: There is no endoscopic evidence of recent bleeding with the resolution clips still in place in the jejunum. One non-bleeding linear ulcer with no stigmata of bleeding was found distal to the gastrojejunal anastomosis. The lesion was 4 mm in largest dimension. Evidence of a gastroenterostomy was found in the gastric fundus. This was characterized by erythema. Biopsies were taken with a cold forceps for histology. Mildly severe esophagitis with no bleeding was found. Biopsies were taken with a cold forceps for histology. Diffuse candidiasis was found in the middle third of the esophagus. Biopsies were taken with a cold forceps for histology. 02/21/2017 ([facility]) BOY-NORRIS DNA QNT: EBV DNA not detected by PCR. 08/27/2017 (Dr. Alex Tian / Hematology/Oncology) Office Note: HPI: This is a 46-year-old woman from [facility] who was adopted into a family in the [facility] at 1-1/2 years of age. In 2000, she had epigastric abdominal pain, was diagnosed with gastric carcinoma, had a radical near-total gastrectomy with Layne-en-Y gastrojejunostomy in 2000. She underwent postoperative chemotherapy and had complications of kidney issues resulting in a kidney transplant on February 21, 2010. She was previously on Procrit /Aranesp injection for treatment of her anemia. However, after her kidney transplant in 2010, her anemia had resolved. There was a question at that time whether or not she had CMV infection as well. She was also noted to have condyloma acuminata. She was seen for weight loss and epigastric pain and had an EGD on November 07, 2015, by Dr. Jacob Belcher who noted normal esophagus, subtotal gastrectomy, and a gastrojejunal anastomosis with an ulcerations. Biopsies showed active enteritis, focal subepithelial collagen deposits, and ulcer with CMV inclusions present. She was seen by Dr. Silva of Infectious Disease for treatment of the CMV anastomotic ulcer in the setting of chronic immunosuppression and was placed on ganciclovir. Since 3 months ago, she had a moderate anemia with increased fatigue. However she had no recent blood transfusion. Evaluation in April show normal iron, vitamin B12 and folic acid level. Her erythropoietin level was decreased (27.2). Patient has no symptom of gastritis, epigastric pain, hematemesis or melena. Patient denies frequent headaches, palpitations, dizziness or lightheadedness. She has no cough or shortness of breath. She had a problem with diarrhea from pancreatic insufficiency. She denied any change in appetite or weight loss. Current treatment: Aranesp 60 mcg every 2?weeks. Assessment: 45-year old female with anemia of chronic disease secondary to moderately-severe stage IV renal failure. Although her iron saturation is 19%, low TIBC and low serum iron suggests protein malnutrition and iron malabsorption. Plan: This patient is symptomatic from her anemia. Continue Aranesp 60 mcg subcutaneous every 14 days for hemoglobin less than 10 gm/dl monitor HANDH every 2 weeks. Repeat iron studies, reticulocyte count and BMP every 3 months. OV in 6 months. Proceed with Injectafer 750 mg IV x 1 this week, and start ferrous gluconate 150 mg twice daily. Repeat CBC in our study the following week for Aranesp injection if indicated. ? Component Latest Ref Rng AND Units 09/15/2017 09/24/2017 09/29/2017 Protein, Total 6.3 - 8.0 g/dL ? 5.8 (L) ? Albumin 3.9 - 4.9 g/dL ? 3.3 (L) ? Calcium 8.5 - 10.2 mg/dL ? 8.2 (L) ? Bilirubin, Total 0.2 - 1.3 mg/dL ? <0.2 (L) ? Alkaline Phosphatase 32 - 117 U/L ? 101 ? AST 13 - 35 U/L ? 23 ? Glucose 74 - 99 mg/dL ? 111 (H) ? BUN 7 - 21 mg/dL ? 44 (H) ? Creatinine 0.58 - 0.96 mg/dL ? 3.85 (H) ? Sodium 136 - 144 mmol/L ? 142 ? Potassium 3.7 - 5.1 mmol/L ? 4.2 ? Chloride 97 - 105 mmol/L ? 104 ? CO2 22 - 30 mmol/L ? 23 ? Anion Gap 9 - 18 mmol/L ? 15 ? ALT 7 - 38 U/L ? 24 ? eGFR- ? ? 15 ? eGFR-All Other Races . ? 13 ? Iron 41 - 186 ug/dL 78 ? ? TIBC 232 - 386 ug/dL 215 (L) ? ? Transferrin Saturation 15 - 57 % 36 ? ? Ferritin 14.7 - 205.1 ng/mL 1,220.0 (H) ? ? Tacrolimus/FK506 5.0 - 20.0 ng/mL ? 5.9 ? Hemoglobin, [place] 11.5 - 15.5 g/dL ? ? 9.8 (L) Hematocrit, [place] 36.0 - 46.0 % ? ? 31.0 (L) ? Component Latest Ref Rng AND Units 10/06/2017 10/06/2017 11/03/2017 ? ? 2:39 PM 2:41 PM ? WBC 3.70 - 11.00 k/uL 13.74 (H) ? ? RBC 3.90 - 5.20 m/uL 2.98 (L) ? ? Hemoglobin 11.5 - 15.5 g/dL 10.9 (L) ? ? Hematocrit 36.0 - 46.0 % 33.6 (L) ? ? MCV 80.0 - 100.0 fL 112.8 (H) ? ? MCH 26.0 - 34.0 pG 36.6 (H) ? ? MCHC 30.5 - 36.0 g/dL 32.4 ? ? RDW-CV 11.5 - 15.0 % 16.1 (H) ? ? Platelet Count 150 - 400 k/uL 146 (L) ? ? MPV 9.0 - 12.7 fL 11.0 ? ? Neut% % 92.4 ? ? Abs Neut (ANC) 1.45 - 7.50 k/uL 12.69 (H) ? ? Lymph% % 4.2 ? ? Abs Lymph 1.00 - 4.00 k/uL 0.58 (L) ? ? [place]% % 2.9 ? ? Abs [place] <0.87 k/uL 0.40 ? ? Eosin% % 0.3 ? ? Abs Eosin <0.46 k/uL 0.04 ? ? Baso% % 0.2 ? ? Abs Baso <0.11 k/uL 0.03 ? ? Review (for CBC/CBCDIF) ? Done ? ? Nucleated Reds 0 /100 WBC 0.0 ? ? Absolute nRBC <0.01 k/uL <0.01 ? ? Diff Type ? Auto Diff ? ? Protein, Total 6.3 - 8.0 g/dL 6.9 ? ? Albumin 3.9 - 4.9 g/dL 3.6 (L) 3.4 (L) ? Calcium 8.5 - 10.2 mg/dL 8.8 8.7 ? Bilirubin, Total 0.2 - 1.3 mg/dL 0.2 ? ? Alkaline Phosphatase 32 - 117 U/L 116 ? ? AST 13 - 35 U/L 32 ? ? Glucose 74 - 99 mg/dL 113 (H) 116 (H) ? BUN 7 - 21 mg/dL 45 (H) 45 (H) ? Creatinine 0.58 - 0.96 mg/dL 4.22 (H) 4.13 (H) ? Sodium 136 - 144 mmol/L 144 140 ? Potassium 3.7 - 5.1 mmol/L 4.3 Unable to assay. Specimen significantly hemolyzed. ? Chloride 97 - 105 mmol/L 103 102 ? CO2 22 - 30 mmol/L 20 (L) 22 ? Anion Gap 9 - 18 mmol/L 21 (H) 16 ? ALT 7 - 38 U/L 22 ? ? eGFR- ? 14 14 ? eGFR-All Other Races . 11 12 ? Phosphorus 2.7 - 4.8 mg/dL ? Unable to assay. Specimen significantly hemolyzed. ? Iron 41 - 186 ug/dL 65 ? ? TIBC 232 - 386 ug/dL 237 ? ? Transferrin Saturation 15 - 57 % 27 ? ? PT Sec 9.7 - 13.0 sec 9.4 (L) ? ? PT INR 0.9 - 1.3 <0.9 (L) ? ? Ferritin 14.7 - 205.1 ng/mL 1,357.0 (H) ? ? Folate >4.7 ng/mL >20.0 ? ? Magnesium 1.7 - 2.3 mg/dL 2.2 ? ? MMA 79 - 376 nmol/L 762 (H) ? ? Prealbumin 17 - 36 mg/dL 34 ? ? Vitamin D 25 Hydroxy 31.0 - 80.0 ng/mL 94.1 (H) ? ? Vitamin B6, Plasma 20.0 - 125.0 nmol/L 71.4 ? ? Vitamin B12 232 - 1,245 pg/mL 1,238 ? ? Vitamin B1, WB 70 - 180 nmol/L 259 (H) ? ? Vitamin A 0.30 - 1.20 mg/L 1.36 (H) ? ? Hemoglobin, [place] 11.5 - 15.5 g/dL ? ? 10.9 (L) Hematocrit, [place] 36.0 - 46.0 % ? ? 33.5 (L) ? ? NEW DATA SINCE LAST VISIT 12/23/17 - Upper GI endoscopy. Indications:?Follow-up of peptic ulcer. Findings: The examined esophagus was normal. Evidence of Billroth I gastroduodenostoy with food debris retained in the stomach. Ulceration of anastomosis. Biopsy was taken for histology The examined duodenum was normal. Estimated blood loss was minimal. Impression: Normal esophagus. Gastrostomy present. Normal examined duodenum. Pathology: FINAL DIAGNOSIS: Gastroenteric anastomosis, biopsy - Mixed intestinal and foveolar mucosa with active inflammation, reactive epithelial change, and detached fibrinous debris with admixed crystalline fragments, consistent with nearby ulceration. Negative for dysplasia or infiltrative lesion. Viral inclusions are not identified. 12/30/17 - ?US DVT LOWER NAEL. History: Lower extremity swelling. IMPRESSION: No evidence for DVT identified in either lower extremity. ? Segmental visualization below the knee due to swelling and edema Component Latest Ref Rng AND Units 11/17/2017 12/15/2017 12/22/2017 12/23/2017 12/29/2017 01/12/2018 Protein, Total 6.3 - 8.0 g/dL 5.7 (L) Albumin 3.9 - 4.9 g/dL 3.1 (L) Calcium 8.5 - 10.2 mg/dL 8.2 (L) Bilirubin, Total 0.2 - 1.3 mg/dL 0.2 Alkaline Phosphatase 32 - 117 U/L 85 AST 13 - 35 U/L 22 Glucose 74 - 99 mg/dL 118 (H) BUN 7 - 21 mg/dL 44 (H) Creatinine 0.58 - 0.96 mg/dL 4.28 (H) Sodium 136 - 144 mmol/L 139 Potassium 3.7 - 5.1 mmol/L 4.7 Chloride 97 - 105 mmol/L 104 CO2 22 - 30 mmol/L 20 (L) Anion Gap 9 - 18 mmol/L 15 ALT 7 - 38 U/L 15 eGFR- 13 eGFR-All Other Races . 11 Hemoglobin, [place] 11.5 - 15.5 g/dL 10.6 (L) 8.8 (L) 9.9 (L) 10.2 (L) Hematocrit, [place] 36.0 - 46.0 % 32.9 (L) 27.9 (L) 31.1 (L) 32.0 (L) Research Scientist Specimen originated from [facility] . . . Assessment DISCUSSION: We discussed for a long time the theory and need for things to help keep her hydrated so that she protests her remaining kidney function. We also discussed why gaining some weight would be good for her. She says that she will try to do a better job now that she is feeling better. IMPRESSION Severe protein calorie malnutrition Pancreatic insufficiency History of Gastric Cancer History of Billroth 1 procedure Hypertension s/p Kidney transplant Chronic kidney disease, stage 4, severely decreased GFR Osteopenia Vitamin B12 deficiency PLAN Patient has?a [employer] account. Labs as ordered - can get closer to home at a [facility] lab - download to [employer] Trial of ORS - information and samples of Drip Drop Discussed vitamin B12 injections and that she has 3 mL vials for 1 mL/month and then 3 refills To alter diet - decrease Magalys dedrick and try to increase intake RTC about 8 weeks Letter to Drs. Barajas and Bri, PCP and Bryan Koo, ACCOUNTING MACHINE MECHANIC Austen Pierson MD January 30, 2018 Referring Provider: AUSTEN PIERSON [[id number]] Allergies As of Date: 01/30/2018 Noted Allergy Reaction SULFA (SULFONAMIDE ANTIBIOTICS) 04/07/2001 4 - Hives Comments: hives NSAIDS (NON-STEROIDAL ANTI-INFLAM*04/23/2016 5 - Intolerance Date Reviewed: 01/30/2018 Reviewed by: Austen Pierson - Fully Assessed Reason for Visit: Established Patient [175] Cmt: Weight loss follow-up Primary Visit Diagnosis:Severe protein-calorie malnutrition (HCC) [E43] Other Visit Diagnoses:Pancreatic insufficiency [K86.89] History of gastric cancer [Z85.028] S/P partial gastrectomy [Z90.3] Essential hypertension [I10] Chronic kidney disease, stage 4, severely decreased GFR (HCC) [N18.4] Osteopenia, unspecified location [M85.80] Kidney transplant recipient [Z94.0] Vitamin B12 deficiency anemia due to intrinsic factor deficiency [D51.0] Order(s):CBC + DIFF [SQCBCDIF] Order #: [id number] FUTURE COMP METABOLIC PANEL [SQCMP] Order #: [id number] FUTURE MAGNESIUM BLD [SQMG1] Order #: [id number] FUTURE PREALBUMIN BLD [SQPREALB] Order #: [id number] FUTURE Prescriptions as of 01/30/2018 Sig: [id number] 12,00* Take by mouth three times raad* MISOPROSTOL 200 MCG TABLET Insert 2 tables vaginally nig* LORAZEPAM 1 MG TABLET Take 1 tablet by mouth as dir* SODIUM BICARBONATE 650 MG TAB* Take 1 tablet by mouth three * DRONABINOL 2.5 MG CAPSULE Take 1 capsule by mouth four * AMLODIPINE 5 MG TABLET Take 1 tablet by mouth once d* TACROLIMUS 1 MG CAPSULE Take (2) capsules by mouth ev* POLYSACCHARIDE IRON COMPLEX 1* Take 1 capsule by mouth once * CHOLECALCIFEROL (VITAMIN D3) * Take 1 capsule by mouth every* CYANOCOBALAMIN (VIT B-12) 1,0* Inject 1 mL intramuscularly o* SYRINGE (DISPOSABLE) 1 ML 1 mL as directed. ESOMEPRAZOLE MAGNESIUM 40 MG * Take 1 capsule by mouth once * BIOTIN ORAL Take by mouth once daily. CALCIUM 600 ORAL Take by mouth twice daily. MULTI ORAL Take by mouth. PREDNISONE 5 MG TABLET Take 1 tablet by mouth once d* THERAPEUTIC MULTIVITAMIN TABL* Take 1 tablet by mouth twice * GABAPENTIN ORAL Take 300 mg by mouth twice da* OXYCODONE 5 MG TABLET Take 1 tablet by mouth every * LEVONORGESTREL 20 MCG/24 HR (* 1 Each by INTRAUTERINE route * TIZANIDINE 4 MG TABLET Take 1 tablet by mouth every * CALCIUM CITRATE-ERGOCALCIFERO* Take 1 tablet by mouth twice * Patient not taking: Reported on 01/30/2018 ALBUTEROL SULFATE HFA 90 MCG/* 2 Puffs every 4 hours as need* Patient not taking: Reported on 01/30/2018 COMPOUNDED PRESCRIPTION Outpatient physical therapy Patient not taking: Reported on 01/30/2018 Medication notes this encounter CALCIUM 600 ORAL >> Rema Segal Cma 01/30/2018 3:50 PM >> REMA SEGAL CMA FriJan 30, 2018 3:50 PM Problem List As Of Date 01/30/2018 Noted Resolved Anemia in chronic kidney disease [N18.9, D63.1] INVALID FOR* More... Chronic kidney disease, stage III (moderate) [N*INVALID FOR*08/27/2017 More... History of gastric cancer [Z85.028] INVALID FOR*12/30/2016 More... 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 GERD (gastroesophageal reflux disease) [K21.9] INVALID FOR* Weight loss [R63.4] INVALID FOR* More... CRD (chronic renal disease) [N18.9] INVALID FOR* Reflux esophagitis [K21.0] INVALID FOR* GIB (gastrointestinal bleeding) [K92.2] INVALID FOR*12/30/2016 More... Acute blood loss anemia [D62] INVALID FOR* More... 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 Essential hypertension [I10] INVALID FOR* More... Peptic ulcer disease with hemorrhage [K27.4] INVALID FOR*12/30/2016 Voghc-py-wrblxvt kidney injury (HCC) [N17.9, N1*INVALID FOR*12/30/2016 More... Nausea AND vomiting [R11.2] INVALID FOR*12/30/2016 More... GI bleed [K92.2] INVALID FOR* Priority: C More... History of gastric cancer [Z85.028] INVALID FOR* More... Pancytopenia (HCC) [D61.818] INVALID FOR* Priority: B Central line infection [T80.219A] INVALID FOR*02/27/2017 Priority: A More... Severe protein-calorie malnutrition (HCC) [E43] INVALID FOR* More... Hx of transfusion [Z92.89] INVALID FOR* More... Pneumonia [J18.9] INVALID FOR*07/14/2017 Priority: A More... Pancreatic insufficiency [K86.89] INVALID FOR* More... JENNIFFER (acute kidney injury) (HCC) [N17.9] INVALID FOR*07/14/2017 More... Macrocytic anemia [D53.9] INVALID FOR* More... Thrombocytopenia (HCC) [D69.6] INVALID FOR* More... Respiratory failure with hypoxia (HCC) [J96.91] INVALID FOR*07/14/2017 More... Bacteremia [R78.81] INVALID FOR*07/14/2017 More... Chronic kidney disease, stage 4, severely decre*INVALID FOR* Anemia in stage 4 chronic kidney disease (HCC) *INVALID FOR* Iron malabsorption [K90.9] INVALID FOR* S/P partial gastrectomy [Z90.3] INVALID FOR* Vitamin B12 deficiency anemia due to intrinsic *INVALID FOR* Letter Text Encounter Status:Closed by AUSTEN PIERSON MD on 01/30/18 [place] HEMATOCRIT Collected: 01/26/2018 Status: F Source: [place] 4:00 PM [facility] REPOSITORY TYPE CODE TESTS RESULT OUT OF REFERENCE UNITS RANGE LAB WHCT 36.0-46.0 % Low [place] Hematocrit 31.9 Result Comment: Test performed at: [facility] [place], [address] [place] [address]. [place] HEMOGLOBIN Collected: 01/26/2018 Status: F Source: [place] 4:00 PM [facility] REPOSITORY TYPE CODE TESTS RESULT OUT OF REFERENCE UNITS RANGE LAB WHGB 11.5-15.5 g/dL Low [place] Hemoglobin 10.3 Result Comment: Test performed at: [facility] [place], [address] [place] [address]. PROGRESS Observed: 01/22/2018 Status: COMPLETED Source: [place] 1:25 PM [facility] REPOSITORY HNO ID: [id number] Author: Austen Pierson Service: (none) Author Type: Physician Type: Progress Notes Filed: 01/30/2018 5:47 PM Note Text: Follow Up Visit 1.[address] - Seen with ? Discussion and Plan from 12/11/17: DISCUSSION: We discussed at length options for her to increase her calories and that she needs to actively get 250 Kcal in each day to gain 1/2 lb/week until her next visit. She feels that she can do that. We will also have her restart vitamin B12 injections on a monthly basis. PLAN Patient has?a [employer] account. Order Duplex of legs to r/o DVT Escripted vitamin B12 injections To alter diet - decrease Magalys dedrick and try to increase intake RTC about [address] Barajas and Bri, PCP ? CHIEF COMPLAINT Follow up: Weight Loss ? HISTORY OF PRESENT ILLNESS Mrs. Valverde is a 47 yo woman who I saw for the first time on 10/06/17. She was referred by Dr. Barajas for weight loss. Originally, she was from[place] and was adopted?by a family in the [place] at 1-1/2 years of age. In 2000, she had epigastric abdominal pain?and was diagnosed with gastric carcinoma. She?had a radical near-total gastrectomy with Layne-en-Y gastrojejunostomy in that same year. She underwent postoperative chemotherapy and had complications of kidney issues resulting in a kidney transplant on February 21, 2010.?She was seen for weight loss and epigastric pain and had an EGD on November 07, 2015, by Dr. Belcher who noted normal esophagus, subtotal gastrectomy, and a gastrojejunal anastomosis with an ulcerations. Biopsies showed active enteritis, focal subepithelial collagen deposits, and ulcer with CMV inclusions present. She was seen by Dr. Silva of Infectious Disease for treatment of the CMV anastomotic ulcer in the setting of chronic immunosuppression and was placed on ganciclovir. She stated that before her gastric surgery she used to weigh about 129 lbs; she was down as low as 67 lbs during a hospitalization in June. She noted that she experienced bloating with eating. She would usually have a BM in the morning. She stated that she had been able to gain back some weight since she had been hospitalized. She stated that it had been discussed with her in the hospital about enteral and/or parenteral nutrition, but she had wanted to try on her own. She noted that since her gastric surgery and the kidney transplant that she had not weighted more than about 90 lbs. She stated that she would feel more functional if she were between 80-90 lbs. She noted that she did not like to eat too much because she experienced bloating that decreased her appetite. She would often have a [employer] Cheese Roll up for breakfast with 1-1.5 cups of coffee with a little sugar and flavored creamer in it. She did not drink much water by itself. However, she admitted to being quite addicted to Magalys Dedrick. She liked the carbonation and would drink several of these per day. She stated that she did not like Ensure or Boost which would make me sick to my stomach and then would give her diarrhea. She had also tried Arcade Instant Breakfast, but while she had it in the house, she would usually forget that she had it and would choose the Magalys Dedrick instead. She stated that she had a past history of pancreatitis and had been on Creon for a long time. She had come for help with her weight. At her last visit in November 2017, she reported that she had been away in [place] for 3 weeks and thought that she had been doing better with her intake, but did not really gain any weight. She also noted that her left leg was a little more swollen than usual. She had still been drinking her Magalys Dedrick, but had also been drinking some other things like V-8 juice and other juices and water with protein in it. We discussed options at length, and she was not ready for any artificial means such as tube feeding. ? Today she states that she has not done as well as she ad hoped over the past few weeks. After her last visit, she had a stomach flu for 2 weeks and lost more weight, but finally recovered as did her appetite. She was supposed to get some IV fluid near home, but that did not happen. She had never heard about Oral Rehydration Solutions. She did not like the trial of OWYNs. I have reviewed the PMH, Social, FH and ROS from the visit on 10/06/17, and I have no changes or additions except what is in the HPI. Current Outpatient Prescriptions: ptzgqv-iakzdrok-dkulqev (CREON 12) 12,000-38,000 -60,000 unit cpDR Take by mouth three times daily. Disp: Rfl: miSOPROStol (CYTOTEC) 200 mcg tablet Insert 2 tables vaginally night prior to procedure and 2 tablets morning of procedure. Disp: 4 tablet Rfl: 0 LORazepam (ATIVAN) 1 mg tablet Take 1 tablet by mouth as directed for 49 days. Disp: 1 tablet Rfl: 0 sodium bicarbonate 650 mg tablet Take 1 tablet by mouth three times daily. Disp: 90 tablet Rfl: 1 dronabinol (MARINOL) 2.5 mg capsule Take 1 capsule by mouth four times daily for 30 days. Disp: 120 capsule Rfl: 0 amLODIPine (NORVASC) 5 mg tablet Take 1 tablet by mouth once daily. Disp: 90 tablet Rfl: 1 tacrolimus (PROGRAF) 1 mg capsule Take (2) capsules by mouth every morning and (1) capsule every evening - ICD 10 = Z94.0 kidney transplant 02/21/2010 Disp: 60 capsule Rfl: 0 iron polysaccharide complex (FERREX-150) 150 mg iron capsule Take 1 capsule by mouth once daily. Disp: Rfl: cholecalciferol, Vitamin D3, (VITAMIN D3) 50,000 unit cap capsule Take 1 capsule by mouth every 2 weeks. (ONE CAPSULE) FOR VITAMIN D DEFICIENCY Disp: Rfl: cyanocobalamin 1,000 mcg/mL soln Inject 1 mL intramuscularly once every month. Disp: 3 mL Rfl: 3 Syringe, Disposable, (B-D SYRINGE SLIP TIP 1CC) 1 mL syrg 1 mL as directed. Disp: 3 Syringe Rfl: 3 esomeprazole (NEXIUM) 40 mg capsule Take 1 capsule by mouth once daily. Disp: 30 capsule Rfl: 0 BIOTIN ORAL Take by mouth once daily. Disp: Rfl: calcium carbonate (CALCIUM 600 ORAL) Take by mouth twice daily. Disp: Rfl: no122/iron/folic acid ( MULTI ORAL) Take by mouth. Disp: Rfl: predniSONE (DELTASONE) 5 mg tablet Take 1 tablet by mouth once daily. Disp: 90 tablet Rfl: 3 therapeutic multivitamin (THERA VITAMIN) tablet Take 1 tablet by mouth twice daily. Disp: 60 tablet Rfl: 0 GABAPENTIN ORAL Take 300 mg by mouth twice daily. Disp: Rfl: oxyCODONE immediate release (ROXICODONE) 5 mg immediate release tablet Take 1 tablet by mouth every 8 hours as needed. Disp: Rfl: levonorgestrel (MIRENA) 20 mcg/24 hour (5 years) IUD 1 Each by INTRAUTERINE route one time only for 1 dose. Disp: 1 Each Rfl: 0 tiZANidine 4 mg tablet Take 1 tablet by mouth every 6 hours as needed (for muscle spasm). Disp: Rfl: 0 Calcium Citrate-Vitamin D2 1,500-200 mg-unit tab Take 1 tablet by mouth twice daily. (Patient not taking: Reported on 01/30/2018 ) Disp: Rfl: albuterol HFA (PROAIR HFA) 90 mcg/actuation inhaler 2 Puffs every 4 hours as needed for Wheezing/Shortness of Breath. Take as directed (Patient not taking: Reported on 01/30/2018 ) Disp: 1 Inhaler Rfl: 0 COMPOUNDED PRESCRIPTION Outpatient physical therapy (Patient not taking: Reported on 01/30/2018 ) Disp: 1 Each Rfl: 0 No current facility-administered medications for this visit. ALLERGIES Allergen Reactions - Sulfa (Sulfonamide * Hives hives - Nsaids (Non-Steroid* Intolerance WEIGHT HISTORY - GOAL WEIGHT = 90 lbs 01/14/17?- Weight 76?lbs, BMI 15.09; 06/18/17?- Weight 72?lbs, BMI 14.42; 07/31/17?- Weight 73?lbs, BMI 14.48; 10/06/17 - Weight?78 lbs, BMI 15.87; 12/11/17 - Weight?77 lbs, BMI 15.54; Today's Weight?74 lbs, BMI 14.78 PHYSICAL EXAMINATION BP 136/91 Pulse 95 Temp (Src) 98.5 (Oral) Ht 4' 11.5 (1.51m) Wt 74 lb 6.4 oz (33.7kg) SpO2 98% BMI 14.78 kg/(m2). UPDATE PE FROM 12/11/17 GENERAL APPEARANCE: Well developed, cachectic woman, alert and oriented in no acute distress. HEAD: Mild bitemporal wasting Ext: No edema PREVIOUSLY REVIEWED DATA 11/07/2015 (Dr. Jacob Bel[facility]) EGD. Findings: ?The examined esophagus was normal. Evidence of a previous gastrectomy with a small gastric remnant. At the gastrojejunal surgical anastomosis there was a 1 X 2 cm ulcer with a white exudate without a visible vessel or other stigmata of bleeding. Biopsies were taken with a cold forceps for histology. The examined jejunum was normal for about 20 cm. SURGICAL PATHOLOGY. Gastrojejunal ulcer anastomosis, biopsy - Active enteritis with architectural distortion, focal subepithelial collagen deposition and detached fragments of fibrinopurulent debris consistent with ulcer, see comment. CMV inclusions are present. Comment: CMV and HSV immunostains were performed due to the presence of ulceration and CMV highlights viral inclusions. HSV shows nonspecific staining and no definitive HSV inclusions. 05/30/2016 (Dr. Andrey Barajas / [facility]) EGD. Findings: The esophagus was normal. LES at 40cm. Evidence of a patent Billroth I gastrojejunostomy was found. A gastric pouch with a normal size was found. This was traversed. There is persistence of a large anastomotic ulcer extending 3-4 cm down the jejunostomy limb. This was biopsied. The examined jejunum was normal. SURGICAL PATHOLOGY: Gastrojejunal anastomotic ulcer, biopsy - Active enteritis with fibrinopurulent debris consistent with ulcer, see comment. Positive for CMV antigens on immunostain. Comment: Given the background of active inflammation with ulcer, immunohistochemical stain for the infection of CMV antigens was performed and is positive, consistent with CMV-related enteritis. 08/01/2016 (Dr. Andrey Barajas / [facility]) EGD. Findings: Localized candidiasis was found in the middle third of the esophagus and in the lower third of the esophagus. Biopsies were taken with a cold forceps for histology. Evidence of a Billroth I anastomosis was found in the stomach. There is persistence of a large gastric ulcer wrapping into the duodenal segment. One non-bleeding cratered duodenal ulcer with no stigmata of bleeding was found in the first part of the duodenum. SURGICAL PATHOLOGY: A. Gastric pouch ulcer, biopsy ? Ulcerated small bowel mucosa with granulation tissue. Positive for CMV inclusions. See comment. B. Esophagus, biopsy ? Esophageal squamous mucosa with focal active inflammation. No evidence of intestinal metaplasia or dysplasia. Comment A. Immunohistochemical stain for CMV is performed in the presence of ulceration and is positive for viral inclusions consistent with CMV related enteritis. 09/25/2016 (Dr. Andrey Barajas AND Dr. Wilma Jones / [facility]) EGD. Findings: The examined esophagus was normal. The Z-line was regular and was found 36 cm from the incisors. Evidence of an antrectomy was found in the gastric body. Biopsies were taken from the gastric remnant with a cold forceps for histology. Estimated blood loss was minimal. One large non-bleeding cratered gastric ulcer with no stigmata of bleeding was found in the gastric body extending into the duodenum. Biopsies were taken with a cold forceps for CMV histology and culture. Estimated blood loss was minimal. The duodenum was normal. SURGICAL PATHOLOGY: Stomach, biopsy - Mild chronic inactive gastritis. No morphologic evidence of Helicobacter pylori. 11/01/2016 (Dr. Sahil Kurtz / [facility]) EGD. Findings: No gross lesions were noted in the entire esophagus. Evidence of a gastroenterostomy was found in the gastric antrum. Food residues were found in the residual gastric lumen which was deformed. This was characterized by ulceration at the anastomosis of approximately 2-3 cm and an intact staple line. Biopsies were taken with a cold forceps for histology and culture. The examined jejunal lumen appeared grossly normal. 11/17/2016 ([facility] / LAB) Gastric remnant, Biopsies ? Acute and Chronic gastritis. Immunohistochemical stain for Helicobacter pylori is negative for organisms. Comment: There are no cytologic features of CMV infection identified. This was evaluated using a laboratory developed test. 12/20/2016 (Dr. Prabhu Dahl AND Dr. Delano Segovia [facility]) EGD. Findings: The examined esophagus was normal. Evidence of a Layne-en-Y gastrojejunostomy was found. This was not traversed. The [id number]-xz-[id number] limb was characterized by ulceration with a clean base. There was a small amount of dark red blood (likely old blood) was seen in the gastric remnant with blood clot. The blood was suctioned but the clot could not be suctioned. There was no evidence of fresh blood in the stomach and no active site of bleeding was identified. There was inflammation at the site of G-J anastomosis and the scope was not advanced beyond the anastomosis. The anastomosis appeared intact. 12/21/2016 (Dr. Ruby Hernández / [facility]) EGD. Findings: The examined esophagus was normal. Evidence of a Layne-en-Y gastrojejunostomy was found. There was a large blood clot with dark old blood in the gastric pouch. The clot was located over the blind pouch and could not be suctioned due to which a large portion of underlying mucosa could not be examined. The gastrojejunal anastomosis was characterized by ulceration with oozing. The examined jejunum contained blood but no bleeding lesion seen. 12/22/2016 (Dr. Jacob Cruz / [facility]) EGD. Findings: The examined esophagus was normal. Evidence of a Layne-en-Y gastrojejunostomy was found. The gastrojejunal anastomosis was characterized by stenosis, erythema, friable mucosa and an area of ulceration at least 3 cm in length without a visible vessel or recent stimata of bleeding. This was traversed and were able to pass the endoscope into the jejunum beyond the GJ junction. There was an adherent blood clot. Hemostatic clips x 2 were placed at the base of the adherent clot. One area of possibly slight fresh bleeding was seen distal to the clot. One clip was applied. There was no bleeding following the procedure. The examined gastric pouch was normal, which was washed with evidence of old stingy thin blood clots but no active bleeding. The GJ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 Vitals Standing BP (BpTru): 123/80 Standing pulse (BpTru): 79 Component Latest Ref Rng AND Units 07/14/2017 07/28/2017 09/15/2017 09/24/2017 10/06/2017 10/06/2017 11/12/2017 11/12/2017 12/15/2017 12/22/2017 2:39 PM 2:41 PM 12:40 PM 12:40 PM WBC 3.70 - 11.00 k/uL 13.74 (H) RBC 3.90 - 5.20 m/uL 2.98 (L) Hemoglobin 11.5 - 15.5 g/dL 10.9 (L) Hematocrit 36.0 - 46.0 % 33.6 (L) MCV 80.0 - 100.0 fL 112.8 (H) MCH 26.0 - 34.0 pG 36.6 (H) MCHC 30.5 - 36.0 g/dL 32.4 RDW-CV 11.5 - 15.0 % 16.1 (H) Platelet Count 150 - 400 k/uL 146 (L) MPV 9.0 - 12.7 fL 11.0 Neut% % 92.4 Abs Neut (ANC) 1.45 - 7.50 k/uL 12.69 (H) Lymph% % 4.2 Abs Lymph 1.00 - 4.00 k/uL 0.58 (L) Davi[place]% % 2.9 Abs [place] <0.87 k/uL 0.40 Eosin% % 0.3 Abs Eosin <0.46 k/uL 0.04 Baso% % 0.2 Abs Baso <0.11 k/uL 0.03 Review (for CBC/CBCDIF) Done Nucleated Reds 0 /100 WBC 0.0 Absolute nRBC <0.01 k/uL <0.01 Diff Type Auto Diff Protein, Total 6.3 - 8.0 g/dL 6.3 5.8 (L) 6.9 6.3 5.7 (L) Albumin 3.9 - 4.9 g/dL 2.8 (L) 3.3 (L) 3.6 (L) 3.4 (L) 3.4 (L) 3.5 (L) 3.1 (L) Calcium 8.5 - 10.2 mg/dL 8.1 (L) 7.8 (L) 8.2 (L) 8.8 8.7 8.6 8.1 (L) 8.2 (L) Bilirubin, Total 0.2 - 1.3 mg/dL 0.2 <0.2 (L) 0.2 0.2 0.2 Alkaline Phosphatase 32 - 117 U/L 86 101 116 101 85 AST 13 - 35 U/L 24 23 32 30 22 Glucose 74 - 99 mg/dL 72 (L) 142 (H) 111 (H) 113 (H) 116 (H) 102 (H) 102 (H) 118 (H) BUN 7 - 21 mg/dL 36 (H) 29 (H) 44 (H) 45 (H) 45 (H) 37 (H) 39 (H) 44 (H) Creatinine 0.58 - 0.96 mg/dL 3.39 (H) 3.45 (H) 3.85 (H) 4.22 (H) 4.13 (H) 3.94 (H) 4.08 (H) 4.28 (H) Sodium 136 - 144 mmol/L 138 142 142 144 140 141 143 139 Potassium 3.7 - 5.1 mmol/L 3.8 4.2 4.2 4.3 Unable to assay. Specimen significantly hemolyzed. 3.6 (L) 3.9 4.7 Chloride 97 - 105 mmol/L 103 108 (H) 104 103 102 102 104 104 CO2 22 - 30 mmol/L 24 22 23 20 (L) 22 22 21 (L) 20 (L) Anion Gap 9 - 18 mmol/L 11 12 15 21 (H) 16 17 18 15 ALT 7 - 38 U/L 20 24 22 23 15 eGFR- 18 17 15 14 14 15 14 13 eGFR-All Other Races . 15 14 13 11 12 12 12 11 Phosphorus 2.7 - 4.8 mg/dL Unable to assay. Specimen significantly hemolyzed. 3.3 Iron 41 - 186 ug/dL 78 65 TIBC 232 - 386 ug/dL 215 (L) 237 Transferrin Saturation 15 - 57 % 36 27 Tacrolimus/FK506 5.0 - 20.0 ng/mL 4.0 (L) 5.9 23.3 (H) 7.2 6.6 Ferritin 14.7 - 205.1 ng/mL 1,220.0 (H) 1,357.0 (H) BK Virus DNA Quant copies/mL Negative for BK virus DNA by PCR Folate >4.7 ng/mL >20.0 Hemoglobin, Kesha 11.5 - 15.5 g/dL 8.8 (L) Hematocrit, [place] 36.0 - 46.0 % 27.9 (L) PHYSICAL EXAM: BP 135/87 (BP Site: Left Arm, BP Position: Sitting, BP Cuff Size: Small Adult) Pulse 74 Temp (!) 35.5 ?C (95.9 ?F) (Tympanic) Ht 149.9 cm (4' 11) Wt 34.1 kg (75 lb 3.2 oz) BMI 15.19 kg/m? General: no acute distress, accompanied by her EYES: sclerae anicteric NECK: supple, no lymphadenopathy or JVD HEART: RRR LUNGS: CTA ABD soft, non-tender, bowel sounds x 4 quads EXT: trace nael JONAS SKIN: No rash or ulceration PSYCH: alert and oriented x 3 No asterixis IMPRESSION: s/p LURD renal tx 02/21/2010, impaired allograft function, advanced CKD with eGFR 11ml/min, Given her underlying GI issues, difficult to sort out if she may be having uremic symptoms. HX of Gastric Carcinoma s/p radical near-total gastrectomy with Layne-en-Y gastrojejunostomy in 2000 and chemotherapy -Immunosuppression FK 06/19, level 6.6 Pred 5mg Off MMF in view gastric ulceration and CMV -Blood Pressure-slightly above target, but will watch for now -Anemia-on RICKY at [place], hgb 8.8 Chronic thrombocytopenia -Reduced PO Intake/Malnutrition/Wt loss -Hx of pancreatitis PLAN: Continue present management Watch dietary intake in take of sodium Avoid NSAIDS and contrast exposure Await final EGD findings Will d/w Dr. Yoseph Koo, RN ASSISTANT PROFESSOR OF ENGLISH.ACCOUNTING MACHINE MECHANIC I spent 25 minutes in the visit, with more than 50% of the total xpkc-tg-dtrg time of the visit in counseling / coordination of care. Referring Provider: BRYAN KOO (ACCOUNTING MACHINE MECHANIC) [[id number]] Allergies As of Date: 12/23/2017 Noted Allergy Reaction SULFA (SULFONAMIDE ANTIBIOTICS) 04/07/2001 4 - Hives Comments: hives NSAIDS (NON-STEROIDAL ANTI-INFLAM*04/23/2016 5 - Intolerance Date Reviewed: 12/23/2017 Reviewed by: Konstantin Greenberg - Fully Assessed Reason for Visit: Renal Txp Follow Up [424] Primary Visit Diagnosis:Kidney replaced by transplant [Z94.0] Other Visit Diagnoses:History of gastric cancer [Z85.028] Anemia in stage 4 chronic kidney disease (HCC) [N18.4, D63.1] Kidney transplant recipient [Z94.0] S/P partial gastrectomy [Z90.3] Vitamin D deficiency [E55.9] Screening for genitourinary condition [Z13.89] Esophageal candidiasis (HCC) [B37.81] Order(s):UA CHEMSTRIP ONLY [SQUA] Order #: [id number] FUTURE UA CHEMSTRIP ONLY [SQUA] Order #: [id number]. #:[id number] Calcium Citrate-Vitamin D2 1,500-200 mg-unit tabTake 1 tablet by mouth twice daily.Disp: Rfl: Prescriptions as of 12/23/2017 Sig: CALCIUM CITRATE-ERGOCALCIFERO* Take 1 tablet by mouth twice * Patient not taking: Reported on 01/30/2018 X TACROLIMUS 1 MG CAPSULE Take (2) capsules by mouth ev* X POLYSACCHARIDE IRON COMPLEX 1* Take 1 capsule by mouth once * X CHOLECALCIFEROL (VITAMIN D3) * Take 1 capsule by mouth every* CYANOCOBALAMIN (VIT B-12) 1,0* Inject 1 mL intramuscularly o* SYRINGE (DISPOSABLE) 1 ML 1 mL as directed. X ESOMEPRAZOLE MAGNESIUM 40 MG * Take 1 capsule by mouth once * X DRONABINOL 2.5 MG CAPSULE Take 1 capsule by mouth four * BIOTIN ORAL Take by mouth once daily. CALCIUM 600 ORAL Take by mouth twice daily. MULTI ORAL Take by mouth. X SODIUM BICARBONATE ORAL Take by mouth once daily. X AMLODIPINE 5 MG TABLET Take 1 tablet by mouth once d* ALBUTEROL SULFATE HFA 90 MCG/* 2 Puffs every 4 hours as need* Patient not taking: Reported on 01/30/2018 COMPOUNDED PRESCRIPTION Outpatient physical therapy Patient not taking: Reported on 01/30/2018 PREDNISONE 5 MG TABLET Take 1 tablet by mouth once d* THERAPEUTIC MULTIVITAMIN TABL* Take 1 tablet by mouth twice * GABAPENTIN ORAL Take 300 mg by mouth twice da* OXYCODONE 5 MG TABLET Take 1 tablet by mouth every * LEVONORGESTREL 20 MCG/24 HR (* 1 Each by INTRAUTERINE route * TIZANIDINE 4 MG TABLET Take 1 tablet by mouth every * Problem List As Of Date 12/23/2017 Noted Resolved Anemia in chronic kidney disease [N18.9, D63.1] INVALID FOR* More... Chronic kidney disease, stage III (moderate) [N*INVALID FOR*08/27/2017 More... History of gastric cancer [Z85.028] INVALID FOR*12/30/2016 More... 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 GERD (gastroesophageal reflux disease) [K21.9] INVALID FOR* Weight loss [R63.4] INVALID FOR* More... CRD (chronic renal disease) [N18.9] INVALID FOR* Reflux esophagitis [K21.0] INVALID FOR* GIB (gastrointestinal bleeding) [K92.2] INVALID FOR*12/30/2016 More... Acute blood loss anemia [D62] INVALID FOR* More... 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 Essential hypertension [I10] INVALID FOR* More... Peptic ulcer disease with hemorrhage [K27.4] INVALID FOR*12/30/2016 Tmyqe-jc-xfljoww kidney injury (HCC) [N17.9, N1*INVALID FOR*12/30/2016 More... Nausea AND vomiting [R11.2] INVALID FOR*12/30/2016 More... GI bleed [K92.2] INVALID FOR* Priority: C More... History of gastric cancer [Z85.028] INVALID FOR* More... Pancytopenia (HCC) [D61.818] INVALID FOR* Priority: B Central line infection [T80.219A] INVALID FOR*02/27/2017 Priority: A More... Severe protein-calorie malnutrition (HCC) [E43] INVALID FOR* More... Hx of transfusion [Z92.89] INVALID FOR* More... Pneumonia [J18.9] INVALID FOR*07/14/2017 Priority: A More... Pancreatic insufficiency [K86.89] INVALID FOR* More... JENNIFFER (acute kidney injury) (HCC) [N17.9] INVALID FOR*07/14/2017 More... Macrocytic anemia [D53.9] INVALID FOR* More... Thrombocytopenia (HCC) [D69.6] INVALID FOR* More... Respiratory failure with hypoxia (HCC) [J96.91] INVALID FOR*07/14/2017 More... Bacteremia [R78.81] INVALID FOR*07/14/2017 More... Chronic kidney disease, stage 4, severely decre*INVALID FOR* Anemia in stage 4 chronic kidney disease (HCC) *INVALID FOR* Iron malabsorption [K90.9] INVALID FOR* S/P partial gastrectomy [Z90.3] INVALID FOR* Prescriptions ordered this encounter Disp Refills Start End TACROLIMUS 1 MG CAPSULE 60 c* 0 12/23/2017 02/09/2018 Class: Med Update Sig: Take (2) capsules by mouth every morning and (1) capsule every evening - ICD 10 = Z94.0 kidney transplant 02/21/2010 POLYSACCHARIDE IRON COMPLEX 150 MG I* 12/23/2017 02/09/2018 Class: Med Update Route: ORAL Sig: Take 1 capsule by mouth once daily. CHOLECALCIFEROL (VITAMIN D3) 50,000 * 12/23/2017 02/10/2018 Class: Med Update Route: ORAL Sig: Take 1 capsule by mouth every 2 weeks. (ONE CAPSULE) FOR VITAMIN D DEFICIENCY CALCIUM CITRATE-ERGOCALCIFEROL (TUYET* 12/23/2017 Class: Med Update Route: ORAL Sig: Take 1 tablet by mouth twice daily. Medications Discontinued During This Encounter tacrolimus (PROGRAF) 1 mg capsule 60 c* 0 12/02/2017 12/23/2017 Cmt: Vacation override Sig: Take (1) capsule by mouth twice daily - ICD 10 = Z94.0 kidney transplant 02/21/2010 Disc: Reason for discontinue is not on file. fexofenadine (LEWIS) 180 mg tablet 30 t* 2 10/22/2017 12/23/2017 Class: Med Update Route: ORAL Sig: Take 1 tablet by mouth once daily. Disc: Discontinued by Patient iron polysaccharide complex (FERREX-* 60 c* 2 08/27/2017 12/23/2017 Route: ORAL Sig: Take 1 capsule by mouth twice daily. Disc: Reason for discontinue is not on file. colestipol (COLESTID) 1 gram tablet 60 t* 0 06/18/2017 12/23/2017 Route: ORAL Sig: Take 1 tablet by mouth twice daily. Disc: Discontinued by another Health Care Provider cholecalciferol, Vitamin D3, (VITAMI* 12 c* 1 04/16/2017 12/23/2017 Route: ORAL Sig: Take 1 capsule by mouth once each week. (ONE CAPSULE) FOR VITAMIN D DEFICIENCY Disc: Reason for discontinue is not on file. tuqctf-jolfdexb-uuwszlk (CREON) 12,0* 90 c* 11 03/27/2017 12/23/2017 Route: ORAL Sig: Take 1 capsule by mouth three times daily with meals. Disc: Discontinued by Patient Calcium Citrate-Vitamin D2 1,500-200* 0 02/27/2017 12/23/2017 Class: Med Update Route: ORAL Sig: Take 2 tablets by mouth twice daily. Disc: Reason for discontinue is not on file. Disposition: Return in about 2 months (around 02/22/2018). Follow-up and Disposition History Recorded Encounter Status:Closed by BRYAN KOO CNP on 01/16/18 URINALYSIS Collected: 12/23/2017 Status: F Source: [place] 12:06 PM [facility] REPOSITORY TYPE CODE TESTS RESULT OUT OF RANGE REFERENCE UNITS LAB UCOL Yellow Color Yellow LAB [facility] Clear Clarity Clear LAB UGLUC Negative mg/dL Glucose, Urine Negative LAB UBIL Negative Bilirubin, Urine Negative LAB UKET Negative Ketones, Urine Negative LAB USPG 1.005-1.030 Specific [place], Ur 1.012 LAB UHGB Negative Hemoglobin/Blood, Negative Ur LAB UPH 4.5-8.0 pH 5.5 LAB UPROT Negative mg/dL Protein, Abnormal Urine 30 Alert LAB UUROB Normal Urobilinogen Normal LAB UNITR Negative Nitrites Negative LAB ULKEST Negative Leukest Negative LAB UCOM Comments SEE COMMENT Result Comment: Microscopic not warranted LAB UMCOM Urine SEE Louie Comment COMMENT Result Comment: N/A Performed By: #### UA #### [facility] [address] [place], [place] [address] SURGICAL PATHOLOGY Observed: 12/23/2017 Status: F Source: [place] 10:23 AM [facility] REPOSITORY Specimen originated from [facility] Specimen #: [id number] Submitting Physician: ANDREY BARAJAS MD FINAL DIAGNOSIS Gastroenteric anastomosis, biopsy - Mixed intestinal and foveolar mucosa with active inflammation, reactive epithelial change, and detached fibrinous debris with admixed crystalline fragments, consistent with nearby ulceration. - Negative for dysplasia or infiltrative lesion. - Viral inclusions are not identified. IG/dss 12/24/2017 Mela Walker M.D., Ph.D. (Electronic Signature) SPECIMEN SUBMITTED A: GASTROENTERIC ANASTOMOSIS, BIOPSY CLINICAL DATA GASTRIC ULCER GROSS DESCRIPTION A. Received in formalin are two pieces of chowdhury, soft tissue aggregating to 1.0 x 0.2 x 0.1 cm. Totally submitted in one cassette. Gross examination performed at [facility], [address] [place] [address] FF 12/23/2017 6:10:40 PM Date of Report: 12/24/2017 Date of Procedure: 12/23/2017 Date of Receipt: 12/23/2017 Submitted by: ANDREY BARAJAS MD Location: [facility] A3 Diagnostic interpretation performed at [place] [address]. TACROLIMUS / FK506 Collected: 12/22/2017 Status: F Source: [place] 12:45 PM [facility] REPOSITORY TYPE CODE TESTS RESULT OUT OF REFERENCE UNITS RANGE LAB FK506 5.0-20.0 ng/mL Tacrolimus / 6.6 FK506 Result Comment: These reference ranges are provided as a general recommendation. Individualized target levels for a given patient will depend on many factors (including the type of organ transplant, ti me since transplantation, concurrent medications, and other clinical factors), and should be assessed by those health care providers experienced in the management of immunosuppression. Reference ranges and high/low indicator flags are provided as general guidelines only. The treating physician must determine appropriate target levels/dosing based on the specific clinical situation. Test performed by chemiluminescent immunoassay using [employer] Staff Member. Performed By: #### FK506 #### [facility] [address] [place], [place] [address] COMP METABOLIC PANEL Collected: 12/22/2017 Status: F Source: [place] 12:45 PM [facility] REPOSITORY TYPE CODE TESTS RESULT OUT OF REFERENCE UNITS RANGE LAB TP 6.3-8.0 g/dL Low Protein, Total 5.7 LAB ALB 3.9-4.9 g/dL Low Albumin 3.1 LAB CA 8.5-10.2 mg/dL Low Calcium, Total 8.2 LAB TBIL 0.2-1.3 mg/dL Bilirubin, Total 0.2 LAB ALKP 32-117 U/L Alkaline Phosphatase 85 LAB AST 13-35 U/L AST 22 LAB GLU 74-99 mg/dL Glucose High 118 Result Comment: The [place] Diabetes Association (ADA) provides guidance for cutoff values for fasting glucose and random glucose. The ADA defines fasting as no caloric intake for at least 8 hours. Fas ting plasma glucose results between 100 to 125 mg/dL indicate increased risk for diabetes (prediabetes). Fasting plasma glucose results greater than or equal to 126 mg/dL meet the criteria for diagnosis of diabetes. In the absence of unequivocal hyperglycemia, results should be confirmed by repeat testing. In a patient with classic symptoms of hyperglycemia or hyperglycemic crisis, random plasma glucose results greater than or equal to 200 mg/dL meet the criteria for diagnosis of diabetes. Reference: Standards of Medical Care in Diabetes 2016, [place] Diabetes Association. Diabetes Care. 2016.39(Suppl 1). LAB BUN 7-21 mg/dL BUN High 44 LAB CRET 0.58-0.96 mg/dL Creatinine High 4.28 LAB NA 136-144 mmol/L Sodium 139 LAB K 3.7-5.1 mmol/L Potassium 4.7 LAB CL 97-105 mmol/L Chloride 104 LAB CO2 22-30 mmol/L Low CO2 20 LAB AGAP 9-18 mmol/L Anion Gap 15 LAB ALT 7-38 U/L ALT 15 LAB GFRAA eGFR- Amer. 13 LAB GFRNAA . eGFR-All Other Races 11 Result Comment: eGFR (Estimated GFR) Units of measure: mL/min/1.73 meters squared eGFR is derived from the reexpressed MDRD Study equation using the following parameters: serum creatinine, age, gender and race. The creatinine assay has been calibrated to be traceable to IDMS. An eGFR <60 mL/min/1.73m2 for >3 months is consistent with chronic kidney disease. Refer to KDOQI guidelines for clinical interpretation. In patients with unstable renal function, e.g. those with acute kidney injury, the eGFR may not accurately reflect actual GFR. Performed By: #### CMP #### [facility] [address] [place], [place] [address] PROGRESS Observed: 12/17/2017 Status: COMPLETED Source: [place] 9:44 AM [facility] REPOSITORY HNO ID: [id number] Author: Austen Pierson Service: (none) Author Type: Physician Type: Progress Notes Filed: 12/17/2017 9:45 AM Note Text: Correct order placed - please help her to get this scheduled. Austen Pierson MD December 17, 2017 KESHA HEMATOCRIT Collected: 12/15/2017 Status: F Source: [place] 11:08 AM [facility] REPOSITORY TYPE CODE TESTS RESULT OUT OF REFERENCE UNITS RANGE LAB WHCT 36.0-46.0 % Low [place] Hematocrit 27.9 Result Comment: Test performed at: [address] [place] [address]. KESHA HEMOGLOBIN Collected: 12/15/2017 Status: F Source: [place] 11:08 AM [facility] REPOSITORY TYPE CODE TESTS RESULT OUT OF REFERENCE UNITS RANGE LAB WHGB 11.5-15.5 g/dL Low [place] Hemoglobin 8.8 Result Comment: Test performed at: [address] [place] [address]. CNOV Observed: 12/11/2017 Status: COMPLETED Source: [place] 4:10 PM [facility] REPOSITORY Office Visit (GASTA5) VAL VALVERDE ([id number]) 1970 F TRN Date Time Provider Department 12/11/17 4:10 PM AUSTEN PIERSON GASTA5 During your visit today, we recorded the following information about you: Temperature Pulse Blood pressure Weight 97.8 degrees 101/minute 134/78 34.9 kg Height 1.499 m Austen Pierson MD 12/11/2017 5:22 PM Signed Follow Up Visit [address] - Seen with Discussion and Plan from 10/06/17: DISCUSSION: She understands that she is currently very underweight, but feels that unless she gets sick and is in the hospital where she may eat even less that she will lose weight because she has no reserves. 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 As the discussion continued, her mentioned that their local grocer puts aside a lot of Magalys Dedrick, but it was unclear if they were talking multiple 6-packs or cases! We discussed some dietary changes and decreasing her Magalsy Dedrick and not stopping it. We discussed some eating strategies as well as a trial of the OWYN Supplements or going back to Arcade Instant Breakfast with [place] [employer]. We also discussed tube feeding and/or a jejunostomy, but she is very reluctant to try this. Going straight to Parenteral Nutrition would not be appropriate as she has not failed tube feeding. She is agreeable to a several week trial of trying to eat more and drink less. She should consider a Nutrition Therapy consultation which I will likely coordinate for her return visit. PLAN Patient has a [employer] account. Labs as ordered - download to [employer] To alter diet - Magalys dedrick and try to increase intake, e.g., OWYN sample and information Consider trial of tube feeding Nutrition Therapy consultation in the near future RTC about 3-[address] Barajas and Bri, PCP CHIEF COMPLAINT Follow up: Weight Loss HISTORY OF PRESENT ILLNESS Mrs. Valverde is a 47 yo woman who I saw for the first time on 10/06/17. She was referred by Dr. Barajas for weight loss. Originally, she was from [facility] and was adopted by a family in the [place] at 1-1/2 years of age. In 2000, she had epigastric abdominal pain and was diagnosed with gastric carcinoma. She had a radical near-total gastrectomy with Layne-en-Y gastrojejunostomy in that same year. She underwent postoperative chemotherapy and had complications of kidney issues resulting in a kidney transplant on February 21, 2010. She was seen for weight loss and epigastric pain and had an EGD on November 07, 2015, by Dr. Belcher who noted normal esophagus, subtotal gastrectomy, and a gastrojejunal anastomosis with an ulcerations. Biopsies showed active enteritis, focal subepithelial collagen deposits, and ulcer with CMV inclusions present. She was seen by Dr. Silva of Infectious Disease for treatment of the CMV anastomotic ulcer in the setting of chronic immunosuppression and was placed on ganciclovir. She stated that before her gastric surgery she used to weigh about 129 lbs; she was down as low as 67 lbs during a hospitalization in June. She noted that she experienced bloating with eating. She would usually have a BM in the morning. She stated that she had been able to gain back some weight since she had been hospitalized. She stated that it had been discussed with her in the hospital about enteral and/or parenteral nutrition, but she had wanted to try on her own. She noted that since her gastric surgery and the kidney transplant that she had not weighted more than about 90 lbs. She stated that she would feel more functional if she were between 80-90 lbs. She noted that she did not like to eat too much because she experienced bloating that decreased her appetite. She would often have a Taco Burrell Cheese Roll up for breakfast with 1-1.5 cups of coffee with a little sugar and flavored creamer in it. She did not drink much water by itself. However, she admitted to being quite addicted to Magalys Dedrick. She liked the carbonation and would drink several of these per day. She stated that she did not like Ensure or Boost which would make me sick to my stomach and then would give her diarrhea. She had also tried Arcade Instant Breakfast, but while she had it in the house, she would usually forget that she had it and would choose the Magalys Dedrick instead. She stated that she had a past history of pancreatitis and had been on Creon for a long time. She had come for help with her weight. Today she states that she has been away in [place] for 3 weeks and thought that she was doing better with her intake, but did not really gain any weight. She also notes that er left leg is a little more swollen than usual. She has still been drinking her Magalys Dedrick, but has also samantha drinking some other things like V-8 juice and other juices and water with protein in it. We discussed options at length and she is not ready for any artificial means such as tube feeding. I have reviewed the PMH, Social, FH and ROS from the visit on 10/06/17, and I have no changes or additions except what is in the HPI. Current Outpatient Prescriptions: esomeprazole (NEXIUM) 40 mg capsule Take 1 capsule by mouth once daily. Disp: 30 capsule Rfl: 0 tacrolimus (PROGRAF) 1 mg capsule Take (1) capsule by mouth twice daily - ICD 10 = Z94.0 kidney transplant 02/21/2010 Disp: 60 capsule Rfl: 0 dronabinol (MARINOL) 2.5 mg capsule Take 1 capsule by mouth four times daily for 30 days. Disp: 120 capsule Rfl: 0 fexofenadine (LEWIS) 180 mg tablet Take 1 tablet by mouth once daily. Disp: 30 tablet Rfl: 2 BIOTIN ORAL Take by mouth once daily. Disp: Rfl: calcium carbonate (CALCIUM 600 ORAL) Take by mouth twice daily. Disp: Rfl: SODIUM BICARBONATE ORAL Take by mouth once daily. Disp: Rfl: no122/iron/folic acid ( MULTI ORAL) Take by mouth. Disp: Rfl: amLODIPine (NORVASC) 5 mg tablet Take 1 tablet by mouth once daily. Disp: 90 tablet Rfl: 3 iron polysaccharide complex (FERREX-150) 150 mg iron capsule Take 1 capsule by mouth twice daily. Disp: 60 capsule Rfl: 2 predniSONE (DELTASONE) 5 mg tablet Take 1 tablet by mouth once daily. Disp: 90 tablet Rfl: 3 yhsonu-vmuvowyd-fqksild (CREON) 12,000-38,000 -60,000 unit cpDR Take 1 capsule by mouth three times daily with meals. Disp: 90 capsule Rfl: 11 Calcium Citrate-Vitamin D2 1,500-200 mg-unit tab Take 2 tablets by mouth twice daily. Disp: Rfl: 0 therapeutic multivitamin (THERA VITAMIN) tablet Take 1 tablet by mouth twice daily. Disp: 60 tablet Rfl: 0 GABAPENTIN ORAL Take 300 mg by mouth twice daily. Disp: Rfl: oxyCODONE immediate release (ROXICODONE) 5 mg immediate release tablet Take 1 tablet by mouth every 8 hours as needed. Disp: Rfl: levonorgestrel (MIRENA) 20 mcg/24 hour (5 years) IUD 1 Each by INTRAUTERINE route one time only for 1 dose. Disp: 1 Each Rfl: 0 Syringe, Disposable, (B-D SYRINGE SLIP TIP 1CC) 1 mL Syrg 1 mL as directed. Disp: 20 Syringe Rfl: 0 tiZANidine 4 mg tablet Take 1 tablet by mouth every 6 hours as needed (for muscle spasm). Disp: Rfl: 0 albuterol HFA (PROAIR HFA) 90 mcg/actuation inhaler 2 Puffs every 4 hours as needed for Wheezing/Shortness of Breath. Take as directed (Patient not taking: Reported on 10/06/2017 ) Disp: 1 Inhaler Rfl: 0 COMPOUNDED PRESCRIPTION Outpatient physical therapy (Patient not taking: Reported on 09/29/2017 ) Disp: 1 Each Rfl: 0 colestipol (COLESTID) 1 gram tablet Take 1 tablet by mouth twice daily. Disp: 60 tablet Rfl: 0 cholecalciferol, Vitamin D3, (VITAMIN D3) 50,000 unit cap capsule Take 1 capsule by mouth once each week. (ONE CAPSULE) FOR VITAMIN D DEFICIENCY (Patient not taking: Reported on 10/20/2017 ) Disp: 12 capsule Rfl: 1 cyanocobalamin 1,000 mcg/mL soln Inject 1 mL intramuscularly once every month. (Patient not taking: Reported on 10/06/2017 ) Disp: 1 Vial Rfl: 3 No current facility-administered medications for this visit. ALLERGIES Allergen Reactions - Sulfa (Sulfonamide * Hives hives - Nsaids (Non-Steroid* Intolerance WEIGHT HISTORY - GOAL WEIGHT = 90 lbs 01/14/17 - Weight 76 lbs, BMI 15.09; 06/18/17 - Weight 72 lbs, BMI 14.42; 07/31/17 - Weight 73 lbs, BMI 14.48; 10/06/17 - Weight 78 lbs, BMI 15.87; Today's Weight 77 lbs, BMI 15.54 PHYSICAL EXAMINATION BP 134/78 Pulse 101 Temp 97.8 Ht 4' 11 (1.50m) Wt 77 lb (34.9kg) SpO2 98% BMI 15.54 kg/(m2). GENERAL APPEARANCE: Well developed, cachectic woman, alert and oriented in no acute distress. HEAD: Mild bitemporal wasting SCREENING: Neurologic Exam: Mental Status - oriented x 3 PREVIOUSLY REVIEWED DATA 11/07/2015 (Dr. [facility]) EGD. Findings: The examined esophagus was normal. Evidence of a previous gastrectomy with a small gastric remnant. At the gastrojejunal surgical anastomosis there was a 1 X 2 cm ulcer with a white exudate without a visible vessel or other stigmata of bleeding. Biopsies were taken with a cold forceps for histology. The examined jejunum was normal for about 20 cm. SURGICAL PATHOLOGY. Gastrojejunal ulcer anastomosis, biopsy - Active enteritis with architectural distortion, focal subepithelial collagen deposition and detached fragments of fibrinopurulent debris consistent with ulcer, see comment. CMV inclusions are present. Comment: CMV and HSV immunostains were performed due to the presence of ulceration and CMV highlights viral inclusions. HSV shows nonspecific staining and no definitive HSV inclusions. 05/30/2016 (Dr. Andrey Barajas / [facility]) EGD. Findings: The esophagus was normal. LES at 40cm. Evidence of a patent Billroth I gastrojejunostomy was found. A gastric pouch with a normal size was found. This was traversed. There is persistence of a large anastomotic ulcer extending 3-4 cm down the jejunostomy limb. This was biopsied. The examined jejunum was normal. SURGICAL PATHOLOGY: Gastrojejunal anastomotic ulcer, biopsy - Active enteritis with fibrinopurulent debris consistent with ulcer, see comment. Positive for CMV antigens on immunostain. Comment: Given the background of active inflammation with ulcer, immunohistochemical stain for the infection of CMV antigens was performed and is positive, consistent with CMV-related enteritis. 08/01/2016 (Dr. Andrey Barajas / [facility]) EGD. Findings: Localized candidiasis was found in the middle third of the esophagus and in the lower third of the esophagus. Biopsies were taken with a cold forceps for histology. Evidence of a Billroth I anastomosis was found in the stomach. There is persistence of a large gastric ulcer wrapping into the duodenal segment. One non-bleeding cratered duodenal ulcer with no stigmata of bleeding was found in the first part of the duodenum. SURGICAL PATHOLOGY: A. Gastric pouch ulcer, biopsy ? Ulcerated small bowel mucosa with granulation tissue. Positive for CMV inclusions. See comment. B. Esophagus, biopsy ? Esophageal squamous mucosa with focal active inflammation. No evidence of intestinal metaplasia or dysplasia. Comment A. Immunohistochemical stain for CMV is performed in the presence of ulceration and is positive for viral inclusions consistent with CMV related enteritis. 09/25/2016 (Dr. Andrey Barajas AND Dr. Wilma Jones / [facility]) EGD. Findings: The examined esophagus was normal. The Z-line was regular and was found 36 cm from the incisors. Evidence of an antrectomy was found in the gastric body. Biopsies were taken from the gastric remnant with a cold forceps for histology. Estimated blood loss was minimal. One large non-bleeding cratered gastric ulcer with no stigmata of bleeding was found in the gastric body extending into the duodenum. Biopsies were taken with a cold forceps for CMV histology and culture. Estimated blood loss was minimal. The duodenum was normal. SURGICAL PATHOLOGY: Stomach, biopsy - Mild chronic inactive gastritis. No morphologic evidence of Helicobacter pylori. 11/01/2016 (Dr. Sahil Kurtz / [facility]) EGD. Findings: No gross lesions were noted in the entire esophagus. Evidence of a gastroenterostomy was found in the gastric antrum. Food residues were found in the residual gastric lumen which was deformed. This was characterized by ulceration at the anastomosis of approximately 2-3 cm and an intact staple line. Biopsies were taken with a cold forceps for histology and culture. The examined jejunal lumen appeared grossly normal. 11/17/2016 ([facility] / [facility]) Gastric remnant, Biopsies ? Acute and Chronic gastritis. Immunohistochemical stain for Helicobacter pylori is negative for organisms. Comment: There are no cytologic features of CMV infection identified. This was evaluated using a laboratory developed test. 12/20/2016 (Dr. Prabhu Dahl AND Dr. Delano Segovia / [facility]) EGD. Findings: The examined esophagus was normal. Evidence of a Layne-en-Y gastrojejunostomy was found. This was not traversed. The aqyzt-gf-vlcioqj limb was characterized by ulceration with a clean base. There was a small amount of dark red blood (likely old blood) was seen in the gastric remnant with blood clot. The blood was suctioned but the clot could not be suctioned. There was no evidence of fresh blood in the stomach and no active site of bleeding was identified. There was inflammation at the site of G-J anastomosis and the scope was not advanced beyond the anastomosis. The anastomosis appeared intact. 12/21/2016 (Dr. Ruby Hernández / [facility]) EGD. Findings: The examined esophagus was normal. Evidence of a Layne-en-Y gastrojejunostomy was found. There was a large blood clot with dark old blood in the gastric pouch. The clot was located over the blind pouch and could not be suctioned due to which a large portion of underlying mucosa could not be examined. The gastrojejunal anastomosis was characterized by ulceration with oozing. The examined jejunum contained blood but no bleeding lesion seen. 12/22/2016 (Dr. Jacob Cruz / [facility]) EGD. Findings: The examined esophagus was normal. Evidence of a Layne-en-Y gastrojejunostomy was found. The gastrojejunal anastomosis was characterized by stenosis, erythema, friable mucosa and an area of ulceration at least 3 cm in length without a visible vessel or recent stimata of bleeding. This was traversed and were able to pass the endoscope into the jejunum beyond the GJ junction. There was an adherent blood clot. Hemostatic clips x 2 were placed at the base of the adherent clot. One area of possibly slight fresh bleeding was seen distal to the clot. One clip was applied. There was no bleeding following the procedure. The examined gastric pouch was normal, which was washed with evidence of old stingy thin blood clots but no active bleeding. The GJ anastomosis was located at 39 cm. 12/25/2016 (Dr. Ruby Hernández / [facility]) EGD. Findings: The examined esophagus was normal. Evidence of a Layne-en-Y gastrojejunostomy was found. The gastrojejunal anastomosis was characterized by clean based 5cm ulceration at the anastomosis. The remanant stomach pouch had a lot old blood and clots which were removed with a clot buster scope and bio-evac. There was no fresh bleeding source seen within the pouch. 2cm from the anastomosis 3 previously deployed clips were seen which were not bleeding. The area beyond the clips was devoid of any blood. Friable, edematous mucosa was seen from the area of ulceration to the clipped area which bled on contact. Biopsies were taken from around the ulcerated area again to evaluate. SURGICAL PATHOLOGY: Stomach, biopsy - Focal active enteritis and gastritis; negative for dysplasia and malignancy. Negative for CMV inclusions; see comment. Comment: Given the background of active inflammation and previous history of positive CMV inclusions, immunohistochemical stain for the infection of CMV antigens was performed and is negative. No microorganisms morphologically compatible with H. pylori-like organisms are identified on routine TAYLER stained sections. 02/19/2017 (Dr. Raman Almeida / [facility]) EGD. Findings: There is no endoscopic evidence of recent bleeding with the resolution clips still in place in the jejunum. One non-bleeding linear ulcer with no stigmata of bleeding was found distal to the gastrojejunal anastomosis. The lesion was 4 mm in largest dimension. Evidence of a gastroenterostomy was found in the gastric fundus. This was characterized by erythema. Biopsies were taken with a cold forceps for histology. Mildly severe esophagitis with no bleeding was found. Biopsies were taken with a cold forceps for histology. Diffuse candidiasis was found in the middle third of the esophagus. Biopsies were taken with a cold forceps for histology. 02/21/2017 ([facility]) BOY-NORRIS DNA QNT: EBV DNA not detected by PCR. 08/27/2017 (Dr. Alex Tian / Hematology/Oncology) Office Note: HPI: This is a 46-year-old woman from [facility] who was adopted into a family in the [facility] at 1-1/2 years of age. In 2000, she had epigastric abdominal pain, was diagnosed with gastric carcinoma, had a radical near-total gastrectomy with Layne-en-Y gastrojejunostomy in 2000. She underwent postoperative chemotherapy and had complications of kidney issues resulting in a kidney transplant on February 21, 2010. She was previously on Procrit /Aranesp injection for treatment of her anemia. However, after her kidney transplant in 2010, her anemia had resolved. There was a question at that time whether or not she had CMV infection as well. She was also noted to have condyloma acuminata. She was seen for weight loss and epigastric pain and had an EGD on November 07, 2015, by Dr. Jacob Belcher who noted normal esophagus, subtotal gastrectomy, and a gastrojejunal anastomosis with an ulcerations. Biopsies showed active enteritis, focal subepithelial collagen deposits, and ulcer with CMV inclusions present. She was seen by Dr. Silva of Infectious Disease for treatment of the CMV anastomotic ulcer in the setting of chronic immunosuppression and was placed on ganciclovir. Since 3 months ago, she had a moderate anemia with increased fatigue. However she had no recent blood transfusion. Evaluation in April show normal iron, vitamin B12 and folic acid level. Her erythropoietin level was decreased (27.2). Patient has no symptom of gastritis, epigastric pain, hematemesis or melena. Patient denies frequent headaches, palpitations, dizziness or lightheadedness. She has no cough or shortness of breath. She had a problem with diarrhea from pancreatic insufficiency. She denied any change in appetite or weight loss. Current treatment: Aranesp 60 mcg every 2?weeks. Assessment: 45-year old female with anemia of chronic disease secondary to moderately-severe stage IV renal failure. Although her iron saturation is 19%, low TIBC and low serum iron suggests protein malnutrition and iron malabsorption. Plan: This patient is symptomatic from her anemia. Continue Aranesp 60 mcg subcutaneous every 14 days for hemoglobin less than 10 gm/dl monitor HANDH every 2 weeks. Repeat iron studies, reticulocyte count and BMP every 3 months. OV in 6 months. Proceed with Injectafer 750 mg IV x 1 this week, and start ferrous gluconate 150 mg twice daily. Repeat CBC in our study the following week for Aranesp injection if indicated. ? Component Latest Ref Rng AND Units 09/15/2017 09/24/2017 09/29/2017 Protein, Total 6.3 - 8.0 g/dL ? 5.8 (L) ? Albumin 3.9 - 4.9 g/dL ? 3.3 (L) ? Calcium 8.5 - 10.2 mg/dL ? 8.2 (L) ? Bilirubin, Total 0.2 - 1.3 mg/dL ? <0.2 (L) ? Alkaline Phosphatase 32 - 117 U/L ? 101 ? AST 13 - 35 U/L ? 23 ? Glucose 74 - 99 mg/dL ? 111 (H) ? BUN 7 - 21 mg/dL ? 44 (H) ? Creatinine 0.58 - 0.96 mg/dL ? 3.85 (H) ? Sodium 136 - 144 mmol/L ? 142 ? Potassium 3.7 - 5.1 mmol/L ? 4.2 ? Chloride 97 - 105 mmol/L ? 104 ? CO2 22 - 30 mmol/L ? 23 ? Anion Gap 9 - 18 mmol/L ? 15 ? ALT 7 - 38 U/L ? 24 ? eGFR- ? ? 15 ? eGFR-All Other Races . ? 13 ? Iron 41 - 186 ug/dL 78 ? ? TIBC 232 - 386 ug/dL 215 (L) ? ? Transferrin Saturation 15 - 57 % 36 ? ? Ferritin 14.7 - 205.1 ng/mL 1,220.0 (H) ? ? Tacrolimus/FK506 5.0 - 20.0 ng/mL ? 5.9 ? Hemoglobin, [place] 11.5 - 15.5 g/dL ? ? 9.8 (L) Hematocrit, Kesha 36.0 - 46.0 % ? ? 31.0 (L) ? NEW DATA SINCE LAST VISIT Component Latest Ref Rng AND Units 10/06/2017 10/06/2017 11/03/2017 2:39 PM 2:41 PM WBC 3.70 - 11.00 k/uL 13.74 (H) RBC 3.90 - 5.20 m/uL 2.98 (L) Hemoglobin 11.5 - 15.5 g/dL 10.9 (L) Hematocrit 36.0 - 46.0 % 33.6 (L) MCV 80.0 - 100.0 fL 112.8 (H) MCH 26.0 - 34.0 pG 36.6 (H) MCHC 30.5 - 36.0 g/dL 32.4 RDW-CV 11.5 - 15.0 % 16.1 (H) Platelet Count 150 - 400 k/uL 146 (L) MPV 9.0 - 12.7 fL 11.0 Neut% % 92.4 Abs Neut (ANC) 1.45 - 7.50 k/uL 12.69 (H) Lymph% % 4.2 Abs Lymph 1.00 - 4.00 k/uL 0.58 (L) [place]% % 2.9 Abs [place] <0.87 k/uL 0.40 Eosin% % 0.3 Abs Eosin <0.46 k/uL 0.04 Baso% % 0.2 Abs Baso <0.11 k/uL 0.03 Review (for CBC/CBCDIF) Done Nucleated Reds 0 /100 WBC 0.0 Absolute nRBC <0.01 k/uL <0.01 Diff Type Auto Diff Protein, Total 6.3 - 8.0 g/dL 6.9 Albumin 3.9 - 4.9 g/dL 3.6 (L) 3.4 (L) Calcium 8.5 - 10.2 mg/dL 8.8 8.7 Bilirubin, Total 0.2 - 1.3 mg/dL 0.2 Alkaline Phosphatase 32 - 117 U/L 116 AST 13 - 35 U/L 32 Glucose 74 - 99 mg/dL 113 (H) 116 (H) BUN 7 - 21 mg/dL 45 (H) 45 (H) Creatinine 0.58 - 0.96 mg/dL 4.22 (H) 4.13 (H) Sodium 136 - 144 mmol/L 144 140 Potassium 3.7 - 5.1 mmol/L 4.3 Unable to assay. Specimen significantly hemolyzed. Chloride 97 - 105 mmol/L 103 102 CO2 22 - 30 mmol/L 20 (L) 22 Anion Gap 9 - 18 mmol/L 21 (H) 16 ALT 7 - 38 U/L 22 eGFR- 14 14 eGFR-All Other Races . 11 12 Phosphorus 2.7 - 4.8 mg/dL Unable to assay. Specimen significantly hemolyzed. Iron 41 - 186 ug/dL 65 TIBC 232 - 386 ug/dL 237 Transferrin Saturation 15 - 57 % 27 PT Sec 9.7 - 13.0 sec 9.4 (L) PT INR 0.9 - 1.3 <0.9 (L) Ferritin 14.7 - 205.1 ng/mL 1,357.0 (H) Folate >4.7 ng/mL >20.0 Magnesium 1.7 - 2.3 mg/dL 2.2 MMA 79 - 376 nmol/L 762 (H) Prealbumin 17 - 36 mg/dL 34 Vitamin D 25 Hydroxy 31.0 - 80.0 ng/mL 94.1 (H) Vitamin B6, Plasma 20.0 - 125.0 nmol/L 71.4 Vitamin B12 232 - 1,245 pg/mL 1,238 Vitamin B1, WB 70 - 180 nmol/L 259 (H) Vitamin A 0.30 - 1.20 mg/L 1.36 (H) Hemoglobin, [place] 11.5 - 15.5 g/dL 10.9 (L) Hematocrit, [place] 36.0 - 46.0 % 33.5 (L) Assessment DISCUSSION: We discussed at length options for her to increase her calories and that she needs to actively get 250 Kcal in each day to gain 1/2 lb/week until her next visit. She feels that she can do that. We will also have her restart vitamin B12 injections on a monthly basis. IMPRESSION Severe protein calorie malnutrition Pancreatic insufficiency History of Gastric Cancer History of Billroth 1 procedure s/p Kidney transplant Osteopenia Left leg swelling Vitamin B12 deficiency PLAN Patient has a MyChart account. Order Duplex of legs to r/o DVT Escripted vitamin B12 injections To alter diet - decrease Magalys dedrick and try to increase intake RTC about [address] Barajas and Bri, PCP Austen Pierson MD December 11, 2017 Referring Provider: AUSTEN PIERSON [[id number]] Allergies As of Date: 12/11/2017 Noted Allergy Reaction SULFA (SULFONAMIDE ANTIBIOTICS) 04/07/2001 4 - Hives Comments: hives NSAIDS (NON-STEROIDAL ANTI-INFLAM*04/23/2016 5 - Intolerance Date Reviewed: 12/11/2017 Reviewed by: Austen Pierson - Fully Assessed Reason for Visit: Established Patient [175] Cmt: follow up Primary Visit Diagnosis:Severe protein-calorie malnutrition (HCC) [E43] Other Visit Diagnoses:Pancreatic insufficiency [K86.89] History of gastric cancer [Z85.028] S/P partial gastrectomy [Z90.3] Kidney transplant recipient [Z94.0] Osteopenia, unspecified location [M85.80] Left leg swelling [M79.89] Vitamin B12 deficiency anemia due to intrinsic factor deficiency [D51.0] Order(s):DUPLEX DVT VEIN NAEL HC/MM [[id number]] Order #: [id number]: 1 cyanocobalamin 1,000 mcg/mL solnInject 1 mL intramuscularly once every month.Disp: 3 mLRfl: 3 Syringe, Disposable, (B-D SYRINGE SLIP TIP 1CC) 1 mL syrg1 mL as directed.Disp: 3 SyringeRfl: 3 Prescriptions as of 12/11/2017 Sig: SYRINGE (DISPOSABLE) 1 ML 1 mL as directed. ESOMEPRAZOLE MAGNESIUM 40 MG * Take 1 capsule by mouth once * TACROLIMUS 1 MG CAPSULE Take (1) capsule by mouth twi* DRONABINOL 2.5 MG CAPSULE Take 1 capsule by mouth four * FEXOFENADINE 180 MG TABLET Take 1 tablet by mouth once d* BIOTIN ORAL Take by mouth once daily. CALCIUM 600 ORAL Take by mouth twice daily. SODIUM BICARBONATE ORAL Take by mouth once daily. MULTI ORAL Take by mouth. AMLODIPINE 5 MG TABLET Take 1 tablet by mouth once d* POLYSACCHARIDE IRON COMPLEX 1* Take 1 capsule by mouth twice* PREDNISONE 5 MG TABLET Take 1 tablet by mouth once d* RJCCKS-AUDCXVDF-UBNOIKI 12,00* Take 1 capsule by mouth three* CALCIUM CITRATE-ERGOCALCIFERO* Take 2 tablets by mouth twice* THERAPEUTIC MULTIVITAMIN TABL* Take 1 tablet by mouth twice * GABAPENTIN ORAL Take 300 mg by mouth twice da* OXYCODONE 5 MG TABLET Take 1 tablet by mouth every * LEVONORGESTREL 20 MCG/24 HR (* 1 Each by INTRAUTERINE route * TIZANIDINE 4 MG TABLET Take 1 tablet by mouth every * CYANOCOBALAMIN (VIT B-12) 1,0* Inject 1 mL intramuscularly o* ALBUTEROL SULFATE HFA 90 MCG/* 2 Puffs every 4 hours as need* Patient not taking: Reported on 10/06/2017 COMPOUNDED PRESCRIPTION Outpatient physical therapy Patient not taking: Reported on 09/29/2017 COLESTIPOL 1 GRAM TABLET Take 1 tablet by mouth twice * CHOLECALCIFEROL (VITAMIN D3) * Take 1 capsule by mouth once * Patient not taking: Reported on 10/20/2017 Problem List As Of Date 12/11/2017 Noted Resolved Anemia in chronic kidney disease [N18.9, D63.1] INVALID FOR* More... Chronic kidney disease, stage III (moderate) [N*INVALID FOR*08/27/2017 More... History of gastric cancer [Z85.028] INVALID FOR*12/30/2016 More... 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 GERD (gastroesophageal reflux disease) [K21.9] INVALID FOR* Weight loss [R63.4] INVALID FOR* More... CRD (chronic renal disease) [N18.9] INVALID FOR* Reflux esophagitis [K21.0] INVALID FOR* GIB (gastrointestinal bleeding) [K92.2] INVALID FOR*12/30/2016 More... Acute blood loss anemia [D62] INVALID FOR* More... 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 Essential hypertension [I10] INVALID FOR* More... Peptic ulcer disease with hemorrhage [K27.4] INVALID FOR*12/30/2016 Seczs-qj-yedmeve kidney injury (HCC) [N17.9, N1*INVALID FOR*12/30/2016 More... Nausea AND vomiting [R11.2] INVALID FOR*12/30/2016 More... GI bleed [K92.2] INVALID FOR* Priority: C More... History of gastric cancer [Z85.028] INVALID FOR* More... Pancytopenia (HCC) [D61.818] INVALID FOR* Priority: B Central line infection [T80.219A] INVALID FOR*02/27/2017 Priority: A More... Severe protein-calorie malnutrition (HCC) [E43] INVALID FOR* More... Hx of transfusion [Z92.89] INVALID FOR* More... Pneumonia [J18.9] INVALID FOR*07/14/2017 Priority: A More... Pancreatic insufficiency [K86.89] INVALID FOR* More... JENNIFFER (acute kidney injury) (HCC) [N17.9] INVALID FOR*07/14/2017 More... Macrocytic anemia [D53.9] INVALID FOR* More... Thrombocytopenia (HCC) [D69.6] INVALID FOR* More... Respiratory failure with hypoxia (HCC) [J96.91] INVALID FOR*07/14/2017 More... Bacteremia [R78.81] INVALID FOR*07/14/2017 More... Chronic kidney disease, stage 4, severely decre*INVALID FOR* Anemia in stage 4 chronic kidney disease (HCC) *INVALID FOR* Iron malabsorption [K90.9] INVALID FOR* S/P partial gastrectomy [Z90.3] INVALID FOR* Prescriptions ordered this encounter Disp Refills Start End CYANOCOBALAMIN (VIT B-12) 1,000 MCG/* 3 mL 3 12/11/2017 Cmt: 90 day supply Route: INTRAMUSCULA Sig: Inject 1 mL intramuscularly once every month. SYRINGE (DISPOSABLE) 1 ML 3 Sy* 3 12/11/2017 Route: Misc Si mL as directed. Medications Discontinued During This Encounter cyanocobalamin 1,000 mcg/mL soln 1 Vi* 3 10/20/2015 12/11/2017 Route: INTRAMUSCULAR Sig: Inject 1 mL intramuscularly once every month. Patient not taking: Reported on 10/06/2017 Disc: Reason for discontinue is not on file. Syringe, Disposable, (B-D SYRINGE SL* 20 S* 0 09/18/2012 12/11/2017 Class: Print RX Route: Miscell. (Med.Supl.;Non-Drugs) Si mL as directed. Disc: Reason for discontinue is not on file. Disposition: Return in about 6 weeks (around 01/22/2018). Follow-up and Disposition History Recorded Letter Text Encounter Status:Closed by AUSTEN PIERSON MD on 12/11/17 PROGRESS Observed: 12/05/2017 Status: COMPLETED Source: [place] 7:20 AM [facility] [place] REPOSITORY O ID: [id number] Author: Austen Pierson Service: (none) Author Type: Physician Type: Progress Notes Filed: 12/11/2017 5:22 PM Note Text: Follow Up Visit [address] - Seen with Discussion and Plan from 10/06/17: DISCUSSION: She understands that she is currently very underweight, but feels that unless she gets sick and is in the hospital where she may eat even less that she will lose weight because she has no reserves. 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 As the discussion continued, her mentioned that their local grocer puts aside a lot of Magalys Dedrick, but it was unclear if they were talking multiple 6-packs or cases! We discussed some dietary changes and decreasing her Magalys Dedrick and not stopping it. We discussed some eating strategies as well as a trial of the OWYN Supplements or going back to Arcade Instant Breakfast with [place] [employer]. We also discussed tube feeding and/or a jejunostomy, but she is very reluctant to try this. Going straight to Parenteral Nutrition would not be appropriate as she has not failed tube feeding. She is agreeable to a several week trial of trying to eat more and drink less. She should consider a Nutrition Therapy consultation which I will likely coordinate for her return visit. PLAN Patient has a [employer] account. Labs as ordered - download to [employer] To alter diet - Magalys dedrick and try to increase intake, e.g., OWYN sample and information Consider trial of tube feeding Nutrition Therapy consultation in the near future RTC about 3-[address] Barajas and Bri, PCP CHIEF COMPLAINT Follow up: Weight Loss HISTORY OF PRESENT ILLNESS Mrs. Valverde is a 47 yo woman who I saw for the first time on 10/06/17. She was referred by Dr. Barajas for weight loss. Originally, she was from [facility] and was adopted by a family in the [place] at 1-1/2 years of age. In 2000, she had epigastric abdominal pain and was diagnosed with gastric carcinoma. She had a radical near-total gastrectomy with Layne-en-Y gastrojejunostomy in that same year. She underwent postoperative chemotherapy and had complications of kidney issues resulting in a kidney transplant on February 21, 2010. She was seen for weight loss and epigastric pain and had an EGD on November 07, 2015, by Dr. Belcher who noted normal esophagus, subtotal gastrectomy, and a gastrojejunal anastomosis with an ulcerations. Biopsies showed active enteritis, focal subepithelial collagen deposits, and ulcer with CMV inclusions present. She was seen by Dr. Silva of Infectious Disease for treatment of the CMV anastomotic ulcer in the setting of chronic immunosuppression and was placed on ganciclovir. She stated that before her gastric surgery she used to weigh about 129 lbs; she was down as low as 67 lbs during a hospitalization in June. She noted that she experienced bloating with eating. She would usually have a BM in the morning. She stated that she had been able to gain back some weight since she had been hospitalized. She stated that it had been discussed with her in the hospital about enteral and/or parenteral nutrition, but she had wanted to try on her own. She noted that since her gastric surgery and the kidney transplant that she had not weighted more than about 90 lbs. She stated that she would feel more functional if she were between 80-90 lbs. She noted that she did not like to eat too much because she experienced bloating that decreased her appetite. She would often have a Taco Burrell Cheese Roll up for breakfast with 1-1.5 cups of coffee with a little sugar and flavored creamer in it. She did not drink much water by itself. However, she admitted to being quite addicted to Magalys Dedrick. She liked the carbonation and would drink several of these per day. She stated that she did not like Ensure or Boost which would make me sick to my stomach and then would give her diarrhea. She had also tried Arcade Instant Breakfast, but while she had it in the house, she would usually forget that she had it and would choose the Magalys Dedrick instead. She stated that she had a past history of pancreatitis and had been on Creon for a long time. She had come for help with her weight. Today she states that she has been away in [place] for 3 weeks and thought that she was doing better with her intake, but did not really gain any weight. She also notes that er left leg is a little more swollen than usual. She has still been drinking her Magalys Dedrick, but has also samantha drinking some other things like V-8 juice and other juices and water with protein in it. We discussed options at length and she is not ready for any artificial means such as tube feeding. I have reviewed the PMH, Social, FH and ROS from the visit on 10/06/17, and I have no changes or additions except what is in the HPI. Current Outpatient Prescriptions: esomeprazole (NEXIUM) 40 mg capsule Take 1 capsule by mouth once daily. Disp: 30 capsule Rfl: 0 tacrolimus (PROGRAF) 1 mg capsule Take (1) capsule by mouth twice daily - ICD 10 = Z94.0 kidney transplant 02/21/2010 Disp: 60 capsule Rfl: 0 dronabinol (MARINOL) 2.5 mg capsule Take 1 capsule by mouth four times daily for 30 days. Disp: 120 capsule Rfl: 0 fexofenadine (LEWIS) 180 mg tablet Take 1 tablet by mouth once daily. Disp: 30 tablet Rfl: 2 BIOTIN ORAL Take by mouth once daily. Disp: Rfl: calcium carbonate (CALCIUM 600 ORAL) Take by mouth twice daily. Disp: Rfl: SODIUM BICARBONATE ORAL Take by mouth once daily. Disp: Rfl: no122/iron/folic acid ( MULTI ORAL) Take by mouth. Disp: Rfl: amLODIPine (NORVASC) 5 mg tablet Take 1 tablet by mouth once daily. Disp: 90 tablet Rfl: 3 iron polysaccharide complex (FERREX-150) 150 mg iron capsule Take 1 capsule by mouth twice daily. Disp: 60 capsule Rfl: 2 predniSONE (DELTASONE) 5 mg tablet Take 1 tablet by mouth once daily. Disp: 90 tablet Rfl: 3 pqhida-xxzwapag-yjsluhn (CREON) 12,000-38,000 -60,000 unit cpDR Take 1 capsule by mouth three times daily with meals. Disp: 90 capsule Rfl: 11 Calcium Citrate-Vitamin D2 1,500-200 mg-unit tab Take 2 tablets by mouth twice daily. Disp: Rfl: 0 therapeutic multivitamin (THERA VITAMIN) tablet Take 1 tablet by mouth twice daily. Disp: 60 tablet Rfl: 0 GABAPENTIN ORAL Take 300 mg by mouth twice daily. Disp: Rfl: oxyCODONE immediate release (ROXICODONE) 5 mg immediate release tablet Take 1 tablet by mouth every 8 hours as needed. Disp: Rfl: levonorgestrel (MIRENA) 20 mcg/24 hour (5 years) IUD 1 Each by INTRAUTERINE route one time only for 1 dose. Disp: 1 Each Rfl: 0 Syringe, Disposable, (B-D SYRINGE SLIP TIP 1CC) 1 mL Syrg 1 mL as directed. Disp: 20 Syringe Rfl: 0 tiZANidine 4 mg tablet Take 1 tablet by mouth every 6 hours as needed (for muscle spasm). Disp: Rfl: 0 albuterol HFA (PROAIR HFA) 90 mcg/actuation inhaler 2 Puffs every 4 hours as needed for Wheezing/Shortness of Breath. Take as directed (Patient not taking: Reported on 10/06/2017 ) Disp: 1 Inhaler Rfl: 0 COMPOUNDED PRESCRIPTION Outpatient physical therapy (Patient not taking: Reported on 09/29/2017 ) Disp: 1 Each Rfl: 0 colestipol (COLESTID) 1 gram tablet Take 1 tablet by mouth twice daily. Disp: 60 tablet Rfl: 0 cholecalciferol, Vitamin D3, (VITAMIN D3) 50,000 unit cap capsule Take 1 capsule by mouth once each week. (ONE CAPSULE) FOR VITAMIN D DEFICIENCY (Patient not taking: Reported on 10/20/2017 ) Disp: 12 capsule Rfl: 1 cyanocobalamin 1,000 mcg/mL soln Inject 1 mL intramuscularly once every month. (Patient not taking: Reported on 10/06/2017 ) Disp: 1 Vial Rfl: 3 No current facility-administered medications for this visit. ALLERGIES Allergen Reactions - Sulfa (Sulfonamide * Hives hives - Nsaids (Non-Steroid* Intolerance WEIGHT HISTORY - GOAL WEIGHT = 90 lbs 01/14/17 - Weight 76 lbs, BMI 15.09; 06/18/17 - Weight 72 lbs, BMI 14.42; 07/31/17 - Weight 73 lbs, BMI 14.48; 10/06/17 - Weight 78 lbs, BMI 15.87; Today's Weight 77 lbs, BMI 15.54 PHYSICAL EXAMINATION BP 134/78 Pulse 101 Temp 97.8 Ht 4' 11 (1.50m) Wt 77 lb (34.9kg) SpO2 98% BMI 15.54 kg/(m2). GENERAL APPEARANCE: Well developed, cachectic woman, alert and oriented in no acute distress. HEAD: Mild bitemporal wasting SCREENING: Neurologic Exam: Mental Status - oriented x 3 PREVIOUSLY REVIEWED DATA 11/07/2015 (Dr. [facility]) EGD. Findings: The examined esophagus was normal. Evidence of a previous gastrectomy with a small gastric remnant. At the gastrojejunal surgical anastomosis there was a 1 X 2 cm ulcer with a white exudate without a visible vessel or other stigmata of bleeding. Biopsies were taken with a cold forceps for histology. The examined jejunum was normal for about 20 cm. SURGICAL PATHOLOGY. Gastrojejunal ulcer anastomosis, biopsy - Active enteritis with architectural distortion, focal subepithelial collagen deposition and detached fragments of fibrinopurulent debris consistent with ulcer, see comment. CMV inclusions are present. Comment: CMV and HSV immunostains were performed due to the presence of ulceration and CMV highlights viral inclusions. HSV shows nonspecific staining and no definitive HSV inclusions. 05/30/2016 (Dr. Andrey Barajas / [facility]) EGD. Findings: The esophagus was normal. LES at 40cm. Evidence of a patent Billroth I gastrojejunostomy was found. A gastric pouch with a normal size was found. This was traversed. There is persistence of a large anastomotic ulcer extending 3-4 cm down the jejunostomy limb. This was biopsied. The examined jejunum was normal. SURGICAL PATHOLOGY: Gastrojejunal anastomotic ulcer, biopsy - Active enteritis with fibrinopurulent debris consistent with ulcer, see comment. Positive for CMV antigens on immunostain. Comment: Given the background of active inflammation with ulcer, immunohistochemical stain for the infection of CMV antigens was performed and is positive, consistent with CMV-related enteritis. 08/01/2016 (Dr. Andrey Barajas / [facility]) EGD. Findings: Localized candidiasis was found in the middle third of the esophagus and in the lower third of the esophagus. Biopsies were taken with a cold forceps for histology. Evidence of a Billroth I anastomosis was found in the stomach. There is persistence of a large gastric ulcer wrapping into the duodenal segment. One non-bleeding cratered duodenal ulcer with no stigmata of bleeding was found in the first part of the duodenum. SURGICAL PATHOLOGY: A. Gastric pouch ulcer, biopsy ? Ulcerated small bowel mucosa with granulation tissue. Positive for CMV inclusions. See comment. B. Esophagus, biopsy ? Esophageal squamous mucosa with focal active inflammation. No evidence of intestinal metaplasia or dysplasia. Comment A. Immunohistochemical stain for CMV is performed in the presence of ulceration and is positive for viral inclusions consistent with CMV related enteritis. 09/25/2016 (Dr. Andrey Barajas AND Dr. Wilma Jones / [facility]) EGD. Findings: The examined esophagus was normal. The Z-line was regular and was found 36 cm from the incisors. Evidence of an antrectomy was found in the gastric body. Biopsies were taken from the gastric remnant with a cold forceps for histology. Estimated blood loss was minimal. One large non-bleeding cratered gastric ulcer with no stigmata of bleeding was found in the gastric body extending into the duodenum. Biopsies were taken with a cold forceps for CMV histology and culture. Estimated blood loss was minimal. The duodenum was normal. SURGICAL PATHOLOGY: Stomach, biopsy - Mild chronic inactive gastritis. No morphologic evidence of Helicobacter pylori. 11/01/2016 (Dr. Sahil Kurtz / [facility]) EGD. Findings: No gross lesions were noted in the entire esophagus. Evidence of a gastroenterostomy was found in the gastric antrum. Food residues were found in the residual gastric lumen which was deformed. This was characterized by ulceration at the anastomosis of approximately 2-3 cm and an intact staple line. Biopsies were taken with a cold forceps for histology and culture. The examined jejunal lumen appeared grossly normal. 11/17/2016 ([facility] / LAB) Gastric remnant, Biopsies ? Acute and Chronic gastritis. Immunohistochemical stain for Helicobacter pylori is negative for organisms. Comment: There are no cytologic features of CMV infection identified. This was evaluated using a laboratory developed test. 12/20/2016 (Dr. Prabhu Dahl AND Dr. Delano Segovia / [facility]) EGD. Findings: The examined esophagus was normal. Evidence of a Layne-en-Y gastrojejunostomy was found. This was not traversed. The oleuj-xi-izfkjif limb was characterized by ulceration with a clean base. There was a small amount of dark red blood (likely old blood) was seen in the gastric remnant with blood clot. The blood was suctioned but the clot could not be suctioned. There was no evidence of fresh blood in the stomach and no active site of bleeding was identified. There was inflammation at the site of G-J anastomosis and the scope was not advanced beyond the anastomosis. The anastomosis appeared intact. 12/21/2016 (Dr. Ruby Hernández / [facility]) EGD. Findings: The examined esophagus was normal. Evidence of a Layne-en-Y gastrojejunostomy was found. There was a large blood clot with dark old blood in the gastric pouch. The clot was located over the blind pouch and could not be suctioned due to which a large portion of underlying mucosa could not be examined. The gastrojejunal anastomosis was characterized by ulceration with oozing. The examined jejunum contained blood but no bleeding lesion seen. 12/22/2016 (Dr. Jacob Cruz / [facility]) EGD. Findings: The examined esophagus was normal. Evidence of a Layne-en-Y gastrojejunostomy was found. The gastrojejunal anastomosis was characterized by stenosis, erythema, friable mucosa and an area of ulceration at least 3 cm in length without a visible vessel or recent stimata of bleeding. This was traversed and were able to pass the endoscope into the jejunum beyond the GJ junction. There was an adherent blood clot. Hemostatic clips x 2 were placed at the base of the adherent clot. One area of possibly slight fresh bleeding was seen distal to the clot. One clip was applied. There was no bleeding following the procedure. The examined gastric pouch was normal, which was washed with evidence of old stingy thin blood clots but no active bleeding. The GJ anastomosis was located at 39 cm. 12/25/2016 (Dr. Ruby Hernández / [facility]) EGD. Findings: The examined esophagus was normal. Evidence of a Layne-en-Y gastrojejunostomy was found. The gastrojejunal anastomosis was characterized by clean based 5cm ulceration at the anastomosis. The remanant stomach pouch had a lot old blood and clots which were removed with a clot buster scope and bio-evac. There was no fresh bleeding source seen within the pouch. 2cm from the anastomosis 3 previously deployed clips were seen which were not bleeding. The area beyond the clips was devoid of any blood. Friable, edematous mucosa was seen from the area of ulceration to the clipped area which bled on contact. Biopsies were taken from around the ulcerated area again to evaluate. SURGICAL PATHOLOGY: Stomach, biopsy - Focal active enteritis and gastritis; negative for dysplasia and malignancy. Negative for CMV inclusions; see comment. Comment: Given the background of active inflammation and previous history of positive CMV inclusions, immunohistochemical stain for the infection of CMV antigens was performed and is negative. No microorganisms morphologically compatible with H. pylori-like organisms are identified on routine TAYLER stained sections. 02/19/2017 (Dr. Raman Almeida / [facility]) EGD. Findings: There is no endoscopic evidence of recent bleeding with the resolution clips still in place in the jejunum. One non-bleeding linear ulcer with no stigmata of bleeding was found distal to the gastrojejunal anastomosis. The lesion was 4 mm in largest dimension. Evidence of a gastroenterostomy was found in the gastric fundus. This was characterized by erythema. Biopsies were taken with a cold forceps for histology. Mildly severe esophagitis with no bleeding was found. Biopsies were taken with a cold forceps for histology. Diffuse candidiasis was found in the middle third of the esophagus. Biopsies were taken with a cold forceps for histology. 02/21/2017 ([facility]) BOY-NORRIS DNA QNT: EBV DNA not detected by PCR. 08/27/2017 (Dr. Alex Tian / Hematology/Oncology) Office Note: HPI: This is a 46-year-old woman from [facility] who was adopted into a family in the [facility] at 1-1/2 years of age. In 2000, she had epigastric abdominal pain, was diagnosed with gastric carcinoma, had a radical near-total gastrectomy with Layne-en-Y gastrojejunostomy in 2000. She underwent postoperative chemotherapy and had complications of kidney issues resulting in a kidney transplant on February 21, 2010. She was previously on Procrit /Aranesp injection for treatment of her anemia. However, after her kidney transplant in 2010, her anemia had resolved. There was a question at that time whether or not she had CMV infection as well. She was also noted to have condyloma acuminata. She was seen for weight loss and epigastric pain and had an EGD on November 07, 2015, by Dr. Jacob Belcher who noted normal esophagus, subtotal gastrectomy, and a gastrojejunal anastomosis with an ulcerations. Biopsies showed active enteritis, focal subepithelial collagen deposits, and ulcer with CMV inclusions present. She was seen by Dr. Silva of Infectious Disease for treatment of the CMV anastomotic ulcer in the setting of chronic immunosuppression and was placed on ganciclovir. Since 3 months ago, she had a moderate anemia with increased fatigue. However she had no recent blood transfusion. Evaluation in April show normal iron, vitamin B12 and folic acid level. Her erythropoietin level was decreased (27.2). Patient has no symptom of gastritis, epigastric pain, hematemesis or melena. Patient denies frequent headaches, palpitations, dizziness or lightheadedness. She has no cough or shortness of breath. She had a problem with diarrhea from pancreatic insufficiency. She denied any change in appetite or weight loss. Current treatment: Aranesp 60 mcg every 2?weeks. Assessment: 45-year old female with anemia of chronic disease secondary to moderately-severe stage IV renal failure. Although her iron saturation is 19%, low TIBC and low serum iron suggests protein malnutrition and iron malabsorption. Plan: This patient is symptomatic from her anemia. Continue Aranesp 60 mcg subcutaneous every 14 days for hemoglobin less than 10 gm/dl monitor HANDH every 2 weeks. Repeat iron studies, reticulocyte count and BMP every 3 months. OV in 6 months. Proceed with Injectafer 750 mg IV x 1 this week, and start ferrous gluconate 150 mg twice daily. Repeat CBC in our study the following week for Aranesp injection if indicated. ? Component Latest Ref Rng AND Units 09/15/2017 09/24/2017 09/29/2017 Protein, Total 6.3 - 8.0 g/dL ? 5.8 (L) ? Albumin 3.9 - 4.9 g/dL ? 3.3 (L) ? Calcium 8.5 - 10.2 mg/dL ? 8.2 (L) ? Bilirubin, Total 0.2 - 1.3 mg/dL ? <0.2 (L) ? Alkaline Phosphatase 32 - 117 U/L ? 101 ? AST 13 - 35 U/L ? 23 ? Glucose 74 - 99 mg/dL ? 111 (H) ? BUN 7 - 21 mg/dL ? 44 (H) ? Creatinine 0.58 - 0.96 mg/dL ? 3.85 (H) ? Sodium 136 - 144 mmol/L ? 142 ? Potassium 3.7 - 5.1 mmol/L ? 4.2 ? Chloride 97 - 105 mmol/L ? 104 ? CO2 22 - 30 mmol/L ? 23 ? Anion Gap 9 - 18 mmol/L ? 15 ? ALT 7 - 38 U/L ? 24 ? eGFR- ? ? 15 ? eGFR-All Other Races . ? 13 ? Iron 41 - 186 ug/dL 78 ? ? TIBC 232 - 386 ug/dL 215 (L) ? ? Transferrin Saturation 15 - 57 % 36 ? ? Ferritin 14.7 - 205.1 ng/mL 1,220.0 (H) ? ? Tacrolimus/FK506 5.0 - 20.0 ng/mL ? 5.9 ? Hemoglobin, Kesha 11.5 - 15.5 g/dL ? ? 9.8 (L) Hematocrit, [place] 36.0 - 46.0 % ? ? 31.0 (L) ? NEW DATA SINCE LAST VISIT Component Latest Ref Rng AND Units 10/06/2017 10/06/2017 11/03/2017 2:39 PM 2:41 PM WBC 3.70 - 11.00 k/uL 13.74 (H) RBC 3.90 - 5.20 m/uL 2.98 (L) Hemoglobin 11.5 - 15.5 g/dL 10.9 (L) Hematocrit 36.0 - 46.0 % 33.6 (L) MCV 80.0 - 100.0 fL 112.8 (H) MCH 26.0 - 34.0 pG 36.6 (H) MCHC 30.5 - 36.0 g/dL 32.4 RDW-CV 11.5 - 15.0 % 16.1 (H) Platelet Count 150 - 400 k/uL 146 (L) MPV 9.0 - 12.7 fL 11.0 Neut% % 92.4 Abs Neut (ANC) 1.45 - 7.50 k/uL 12.69 (H) Lymph% % 4.2 Abs Lymph 1.00 - 4.00 k/uL 0.58 (L) [place]% % 2.9 Abs [place] <0.87 k/uL 0.40 Eosin% % 0.3 Abs Eosin <0.46 k/uL 0.04 Baso% % 0.2 Abs Baso <0.11 k/uL 0.03 Review (for CBC/CBCDIF) Done Nucleated Reds 0 /100 WBC 0.0 Absolute nRBC <0.01 k/uL <0.01 Diff Type Auto Diff Protein, Total 6.3 - 8.0 g/dL 6.9 Albumin 3.9 - 4.9 g/dL 3.6 (L) 3.4 (L) Calcium 8.5 - 10.2 mg/dL 8.8 8.7 Bilirubin, Total 0.2 - 1.3 mg/dL 0.2 Alkaline Phosphatase 32 - 117 U/L 116 AST 13 - 35 U/L 32 Glucose 74 - 99 mg/dL 113 (H) 116 (H) BUN 7 - 21 mg/dL 45 (H) 45 (H) Creatinine 0.58 - 0.96 mg/dL 4.22 (H) 4.13 (H) Sodium 136 - 144 mmol/L 144 140 Potassium 3.7 - 5.1 mmol/L 4.3 Unable to assay. Specimen significantly hemolyzed. Chloride 97 - 105 mmol/L 103 102 CO2 22 - 30 mmol/L 20 (L) 22 Anion Gap 9 - 18 mmol/L 21 (H) 16 ALT 7 - 38 U/L 22 eGFR- 14 14 eGFR-All Other Races . 11 12 Phosphorus 2.7 - 4.8 mg/dL Unable to assay. Specimen significantly hemolyzed. Iron 41 - 186 ug/dL 65 TIBC 232 - 386 ug/dL 237 Transferrin Saturation 15 - 57 % 27 PT Sec 9.7 - 13.0 sec 9.4 (L) PT INR 0.9 - 1.3 <0.9 (L) Ferritin 14.7 - 205.1 ng/mL 1,357.0 (H) Folate >4.7 ng/mL >20.0 Magnesium 1.7 - 2.3 mg/dL 2.2 MMA 79 - 376 nmol/L 762 (H) Prealbumin 17 - 36 mg/dL 34 Vitamin D 25 Hydroxy 31.0 - 80.0 ng/mL 94.1 (H) Vitamin B6, Plasma 20.0 - 125.0 nmol/L 71.4 Vitamin B12 232 - 1,245 pg/mL 1,238 Vitamin B1, WB 70 - 180 nmol/L 259 (H) Vitamin A 0.30 - 1.20 mg/L 1.36 (H) Hemoglobin, [place] 11.5 - 15.5 g/dL 10.9 (L) Hematocrit, Kesha 36.0 - 46.0 % 33.5 (L) Assessment DISCUSSION: We discussed at length options for her to increase her calories and that she needs to actively get 250 Kcal in each day to gain 1/2 lb/week until her next visit. She feels that she can do that. We will also have her restart vitamin B12 injections on a monthly basis. IMPRESSION Severe protein calorie malnutrition Pancreatic insufficiency History of Gastric Cancer History of Billroth 1 procedure s/p Kidney transplant Osteopenia Left leg swelling Vitamin B12 deficiency PLAN Patient has a [employer] account. Order Duplex of legs to r/o DVT Escripted vitamin B12 injections To alter diet - decrease Magalys dedrick and try to increase intake RTC about [address] Barajas and Bri, PCP Austen Pierson MD December 11, 2017 KESHA HEMATOCRIT Collected: 11/17/2017 Status: F Source: [place] 11:40 AM [facility] REPOSITORY TYPE CODE TESTS RESULT OUT OF REFERENCE UNITS RANGE LAB WHCT 36.0-46.0 % Low [place] Hematocrit 32.9 Result Comment: Test performed at: [address] [place] [address]. KESHA HEMOGLOBIN Collected: 11/17/2017 Status: F Source: [place] 11:40 AM [facility] REPOSITORY TYPE CODE TESTS RESULT OUT OF REFERENCE UNITS RANGE LAB WHGB 11.5-15.5 g/dL Low [place] Hemoglobin 10.6 Result Comment: Test performed at: [address] [place] [address]. COMP METABOLIC PANEL Collected: 11/12/2017 Status: F Source: [place] 12:40 PM [facility] REPOSITORY TYPE CODE TESTS RESULT OUT OF REFERENCE UNITS RANGE LAB TP 6.3-8.0 g/dL Protein, Total 6.3 LAB ALB 3.9-4.9 g/dL Low Albumin 3.4 LAB CA 8.5-10.2 mg/dL Calcium, Total 8.6 LAB TBIL 0.2-1.3 mg/dL Bilirubin, Total 0.2 LAB ALKP 32-117 U/L Alkaline Phosphatase 101 LAB AST 13-35 U/L AST 30 LAB GLU 74-99 mg/dL Glucose High 102 Result Comment: The [place] [employer] (ADA) provides guidance for cutoff values for fasting glucose and random glucose. The ADA defines fasting as no caloric intake for at least 8 hours. Fas ting plasma glucose results between 100 to 125 mg/dL indicate increased risk for diabetes (prediabetes). Fasting plasma glucose results greater than or equal to 126 mg/dL meet the criteria for diagnosis of diabetes. In the absence of unequivocal hyperglycemia, results should be confirmed by repeat testing. In a patient with classic symptoms of hyperglycemia or hyperglycemic crisis, random plasma glucose results greater than or equal to 200 mg/dL meet the criteria for diagnosis of diabetes. Reference: Standards of Medical Care in Diabetes 2016, [place] [employer]. Diabetes Care. 2016.39(Suppl 1). LAB BUN 7-21 mg/dL BUN High 37 LAB CRET 0.58-0.96 mg/dL Creatinine High 3.94 LAB NA 136-144 mmol/L Sodium 141 LAB K 3.7-5.1 mmol/L Low Potassium 3.6 LAB CL 97-105 mmol/L Chloride 102 LAB CO2 22-30 mmol/L CO2 22 LAB AGAP 9-18 mmol/L Anion Gap 17 LAB ALT 7-38 U/L ALT 23 LAB GFRAA eGFR- Amer. 15 LAB GFRNAA . eGFR-All Other Races 12 Result Comment: eGFR (Estimated GFR) Units of measure: mL/min/1.73 meters squared eGFR is derived from the reexpressed MDRD Study equation using the following parameters: serum creatinine, age, gender and race. The creatinine assay has been calibrated to be traceable to IDMS. An eGFR <60 mL/min/1.73m2 for >3 months is consistent with chronic kidney disease. Refer to KDOQI guidelines for clinical interpretation. In patients with unstable renal function, e.g. those with acute kidney injury, the eGFR may not accurately reflect actual GFR. Performed By: #### CMP #### [facility] [address] [address] RENAL FUNCTION PANEL Collected: 11/12/2017 Status: F Source: [place] 12:40 PM [facility] REPOSITORY TYPE CODE TESTS RESULT OUT OF REFERENCE UNITS RANGE LAB ALB 3.9-4.9 g/dL Low Albumin 3.5 LAB CA 8.5-10.2 mg/dL Low Calcium, Total 8.1 LAB PHOS 2.7-4.8 mg/dL Phosphorus 3.3 LAB GLU 74-99 mg/dL Glucose High 102 Result Comment: The [place] Diabetes Association (ADA) provides guidance for cutoff values for fasting glucose and random glucose. The ADA defines fasting as no caloric intake for at least 8 hours. Fas ting plasma glucose results between 100 to 125 mg/dL indicate increased risk for diabetes (prediabetes). Fasting plasma glucose results greater than or equal to 126 mg/dL meet the criteria for diagnosis of diabetes. In the absence of unequivocal hyperglycemia, results should be confirmed by repeat testing. In a patient with classic symptoms of hyperglycemia or hyperglycemic crisis, random plasma glucose results greater than or equal to 200 mg/dL meet the criteria for diagnosis of diabetes. Reference: Standards of Medical Care in Diabetes 2016, [place] [employer]. Diabetes Care. 2016.39(Suppl 1). LAB BUN 7-21 mg/dL BUN High 39 LAB CRET 0.58-0.96 mg/dL Creatinine High 4.08 LAB NA 136-144 mmol/L Sodium 143 LAB K 3.7-5.1 mmol/L Potassium 3.9 LAB CL 97-105 mmol/L Chloride 104 LAB CO2 22-30 mmol/L Low CO2 21 LAB AGAP 9-18 mmol/L Anion Gap 18 LAB GFRAA eGFR- Amer. 14 LAB GFRNAA . eGFR-All Other Races 12 Result Comment: eGFR (Estimated GFR) Units of measure: mL/min/1.73 meters squared eGFR is derived from the reexpressed MDRD Study equation using the following parameters: serum creatinine, age, gender and race. The creatinine assay has been calibrated to be traceable to IDMS. An eGFR <60 mL/min/1.73m2 for >3 months is consistent with chronic kidney disease. Refer to KDOQI guidelines for clinical interpretation. In patients with unstable renal function, e.g. those with acute kidney injury, the eGFR may not accurately reflect actual GFR. Performed By: #### RFP #### [facility] [address] [place], [place] [address] TACROLIMUS / [id number] Collected: 11/12/2017 Status: F Source: [place] 12:40 PM [facility] REPOSITORY TYPE CODE TESTS RESULT OUT OF REFERENCE UNITS RANGE LAB FK506 5.0-20.0 ng/mL Tacrolimus / 7.2 FK506 Result Comment: These reference ranges are provided as a general recommendation. Individualized target levels for a given patient will depend on many factors (including the type of organ transplant, ti me since transplantation, concurrent medications, and other clinical factors), and should be assessed by those health care providers experienced in the management of immunosuppression. Reference ranges and high/low indicator flags are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 antigens was performed and is positive, consistent with CMV-related enteritis. 08/01/2016 (Dr. Andrey Barajas / [facility]) EGD. Findings: Localized candidiasis was found in the middle third of the esophagus and in the lower third of the esophagus. Biopsies were taken with a cold forceps for histology. Evidence of a Billroth I anastomosis was found in the stomach. There is persistence of a large gastric ulcer wrapping into the duodenal segment. One non-bleeding cratered duodenal ulcer with no stigmata of bleeding was found in the first part of the duodenum. SURGICAL PATHOLOGY: A. Gastric pouch ulcer, biopsy ? Ulcerated small bowel mucosa with granulation tissue. Positive for CMV inclusions. See comment. B. Esophagus, biopsy ? Esophageal squamous mucosa with focal active inflammation. No evidence of intestinal metaplasia or dysplasia. Comment A. Immunohistochemical stain for CMV is performed in the presence of ulceration and is positive for viral inclusions consistent with CMV related enteritis. 09/25/2016 (Dr. Andrey Barajas AND Dr. Wilma Jones / [facility]) EGD. Findings: The examined esophagus was normal. The Z-line was regular and was found 36 cm from the incisors. Evidence of an antrectomy was found in the gastric body. Biopsies were taken from the gastric remnant with a cold forceps for histology. Estimated blood loss was minimal. One large non-bleeding cratered gastric ulcer with no stigmata of bleeding was found in the gastric body extending into the duodenum. Biopsies were taken with a cold forceps for CMV histology and culture. Estimated blood loss was minimal. The duodenum was normal. SURGICAL PATHOLOGY: Stomach, biopsy - Mild chronic inactive gastritis. No morphologic evidence of Helicobacter pylori. 11/01/2016 (Dr. Sahil Kurtz / [facility]) EGD. Findings: No gross lesions were noted in the entire esophagus. Evidence of a gastroenterostomy was found in the gastric antrum. Food residues were found in the residual gastric lumen which was deformed. This was characterized by ulceration at the anastomosis of approximately 2-3 cm and an intact staple line. Biopsies were taken with a cold forceps for histology and culture. The examined jejunal lumen appeared grossly normal. 11/17/2016 ([facility] / LAB) Gastric remnant, Biopsies ? Acute and Chronic gastritis. Immunohistochemical stain for Helicobacter pylori is negative for organisms. Comment: There are no cytologic features of CMV infection identified. This was evaluated using a laboratory developed test. 12/20/2016 (Dr. Prabhu Dahl AND Dr. Delano Segovia / [facility]) EGD. Findings: The examined esophagus was normal. Evidence of a Layne-en-Y gastrojejunostomy was found. This was not traversed. The oiajj-lo-hizhmjp limb was characterized by ulceration with a clean base. There was a small amount of dark red blood (likely old blood) was seen in the gastric remnant with blood clot. The blood was suctioned but the clot could not be suctioned. There was no evidence of fresh blood in the stomach and no active site of bleeding was identified. There was inflammation at the site of G-J anastomosis and the scope was not advanced beyond the anastomosis. The anastomosis appeared intact. 12/21/2016 (Dr. Ruby Hernández / [facility]) EGD. Findings: The examined esophagus was normal. Evidence of a Layne-en-Y gastrojejunostomy was found. There was a large blood clot with dark old blood in the gastric pouch. The clot was located over the blind pouch and could not be suctioned due to which a large portion of underlying mucosa could not be examined. The gastrojejunal anastomosis was characterized by ulceration with oozing. The examined jejunum contained blood but no bleeding lesion seen. 12/22/2016 (Dr. Jacob Cruz / [facility]) EGD. Findings: The examined esophagus was normal. Evidence of a Layne-en-Y gastrojejunostomy was found. The gastrojejunal anastomosis was characterized by stenosis, erythema, friable mucosa and an area of ulceration at least 3 cm in length without a visible vessel or recent stimata of bleeding. This was traversed and were able to pass the endoscope into the jejunum beyond the GJ junction. There was an adherent blood clot. Hemostatic clips x 2 were placed at the base of the adherent clot. One area of possibly slight fresh bleeding was seen distal to the clot. One clip was applied. There was no bleeding following the procedure. The examined gastric pouch was normal, which was washed with evidence of old stingy thin blood clots but no active bleeding. The GJ anastomosis was located at 39 cm. 12/25/2016 (Dr. Ruby Hernández / [facility]) EGD. Findings: The examined esophagus was normal. Evidence of a Layne-en-Y gastrojejunostomy was found. The gastrojejunal anastomosis was characterized by clean based 5cm ulceration at the anastomosis. The remanant stomach pouch had a lot old blood and clots which were removed with a clot buster scope and bio-evac. There was no fresh bleeding source seen within the pouch. 2cm from the anastomosis 3 previously deployed clips were seen which were not bleeding. The area beyond the clips was devoid of any blood. Friable, edematous mucosa was seen from the area of ulceration to the clipped area which bled on contact. Biopsies were taken from around the ulcerated area again to evaluate. SURGICAL PATHOLOGY: Stomach, biopsy - Focal active enteritis and gastritis; negative for dysplasia and malignancy. Negative for CMV inclusions; see comment. Comment: Given the background of active inflammation and previous history of positive CMV inclusions, immunohistochemical stain for the infection of CMV antigens was performed and is negative. No microorganisms morphologically compatible with H. pylori-like organisms are identified on routine TAYLER stained sections. 02/19/2017 (Dr. Raman Almeida / [facility]) EGD. Findings: There is no endoscopic evidence of recent bleeding with the resolution clips still in place in the jejunum. One non-bleeding linear ulcer with no stigmata of bleeding was found distal to the gastrojejunal anastomosis. The lesion was 4 mm in largest dimension. Evidence of a gastroenterostomy was found in the gastric fundus. This was characterized by erythema. Biopsies were taken with a cold forceps for histology. Mildly severe esophagitis with no bleeding was found. Biopsies were taken with a cold forceps for histology. Diffuse candidiasis was found in the middle third of the esophagus. Biopsies were taken with a cold forceps for histology. 02/21/2017 ([facility]) BOY-NORRIS DNA QNT: EBV DNA not detected by PCR. 08/27/2017 (Dr. Alex Tian / Hematology/Oncology) Office Note: HPI: This is a 46-year-old woman from [facility] who was adopted into a family in the [place] at 1-1/2 years of age. In 2000, she had epigastric abdominal pain, was diagnosed with gastric carcinoma, had a radical near-total gastrectomy with Layne-en-Y gastrojejunostomy in 2000. She underwent postoperative chemotherapy and had complications of kidney issues resulting in a kidney transplant on February 21, 2010. She was previously on Procrit /Aranesp injection for treatment of her anemia. However, after her kidney transplant in 2010, her anemia had resolved. There was a question at that time whether or not she had CMV infection as well. She was also noted to have condyloma acuminata. She was seen for weight loss and epigastric pain and had an EGD on November 07, 2015, by Dr. Jacob Belcher who noted normal esophagus, subtotal gastrectomy, and a gastrojejunal anastomosis with an ulcerations. Biopsies showed active enteritis, focal subepithelial collagen deposits, and ulcer with CMV inclusions present. She was seen by Dr. Silva of Infectious Disease for treatment of the CMV anastomotic ulcer in the setting of chronic immunosuppression and was placed on ganciclovir. Since 3 months ago, she had a moderate anemia with increased fatigue. However she had no recent blood transfusion. Evaluation in April show normal iron, vitamin B12 and folic acid level. Her erythropoietin level was decreased (27.2). Patient has no symptom of gastritis, epigastric pain, hematemesis or melena. Patient denies frequent headaches, palpitations, dizziness or lightheadedness. She has no cough or shortness of breath. She had a problem with diarrhea from pancreatic insufficiency. She denied any change in appetite or weight loss. Current treatment: Aranesp 60 mcg every 2 weeks. Assessment: 45-year old female with anemia of chronic disease secondary to moderately-severe stage IV renal failure. Although her iron saturation is 19%, low TIBC and low serum iron suggests protein malnutrition and iron malabsorption. Plan: This patient is symptomatic from her anemia. Continue Aranesp 60 mcg subcutaneous every 14 days for hemoglobin less than 10 gm/dl monitor HANDH every 2 weeks. Repeat iron studies, reticulocyte count and BMP every 3 months. OV in 6 months. Proceed with Injectafer 750 mg IV x 1 this week, and start ferrous gluconate 150 mg twice daily. Repeat CBC in our study the following week for Aranesp injection if indicated. Component Latest Ref Rng AND Units 09/15/2017 09/24/2017 09/29/2017 Protein, Total 6.3 - 8.0 g/dL 5.8 (L) Albumin 3.9 - 4.9 g/dL 3.3 (L) Calcium 8.5 - 10.2 mg/dL 8.2 (L) Bilirubin, Total 0.2 - 1.3 mg/dL <0.2 (L) Alkaline Phosphatase 32 - 117 U/L 101 AST 13 - 35 U/L 23 Glucose 74 - 99 mg/dL 111 (H) BUN 7 - 21 mg/dL 44 (H) Creatinine 0.58 - 0.96 mg/dL 3.85 (H) Sodium 136 - 144 mmol/L 142 Potassium 3.7 - 5.1 mmol/L 4.2 Chloride 97 - 105 mmol/L 104 CO2 22 - 30 mmol/L 23 Anion Gap 9 - 18 mmol/L 15 ALT 7 - 38 U/L 24 eGFR- 15 eGFR-All Other Races . 13 Iron 41 - 186 ug/dL 78 TIBC 232 - 386 ug/dL 215 (L) Transferrin Saturation 15 - 57 % 36 Ferritin 14.7 - 205.1 ng/mL 1,220.0 (H) Tacrolimus/FK506 5.0 - 20.0 ng/mL 5.9 Hemoglobin, Kesha 11.5 - 15.5 g/dL 9.8 (L) Hematocrit, Kesha 36.0 - 46.0 % 31.0 (L) Assessment DISCUSSION: She understands that she is currently very underweight, but feels that unless she gets sick and is in the hospital where she may eat even less that she will lose weight because she has no reserves. 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 As the discussion continued, her mentioned that their local grocer puts aside a lot of Magalys Dedrick, but it was unclear if they were talking multiple 6-packs or cases! We discussed some dietary changes and decreasing her Magalys Dedrick and not stopping it. We discussed some eating strategies as well as a trial of the OWYN Supplements or going back to [employer] Instant Breakfast with [employer]. We also discussed tube feeding and/or a jejunostomy, but she is very reluctant to try this. Going straight to Parenteral Nutrition would not be appropriate as she has not failed tube feeding. She is agreeable to a several week trial of trying to eat more and drink less. She should consider a Nutrition Therapy consultation which I will likely coordinate for her return visit. IMPRESSION Severe protein calorie malnutrition Pancreatic insufficiency History of Gastric Cancer History of Billroth 1 procedure s/p Kidney transplant Osteopenia PLAN Patient has a [employer] account. Labs as ordered - download to [employer] To alter diet - Magalys dedrick and try to increase intake, e.g., OWYN sample and information Consider trial of tube feeding Nutrition Therapy consultation in the near future RTC about 3-[address] Barajas and Bri, PCP Austen Pierson MD October 06, 2017 Austen Pierson MD 10/06/2017 1:54 PM Signed Diet Changes 1) Decrease water 2) Decrease magalys dedrick 3) Eat multiple (5-6) small meals/day 4) Trial of OWYN Supplement or something similar Referring Provider: ANDREY BARAJAS [[id number]] Allergies As of Date: 10/06/2017 Noted Allergy Reaction SULFA (SULFONAMIDE ANTIBIOTICS) 04/07/2001 4 - Hives Comments: hives NSAIDS (NON-STEROIDAL ANTI-INFLAM*04/23/2016 5 - Intolerance Date Reviewed: 10/06/2017 Reviewed by: Austen Pierson - Fully Assessed Reason for Visit: Consult [173] Cmt: Weight Loss Reason For Visit History Recorded Primary Visit Diagnosis:Severe protein-calorie malnutrition (HCC) [E43] Other Visit Diagnoses:Pancreatic insufficiency [K86.89] History of gastric cancer [Z85.028] History of Billroth I operation [Z98.890] Kidney transplant recipient [Z94.0] Osteopenia, unspecified location [M85.80] Order(s):CBC + DIFF [SQCBCDIF] Order #: [id number] FUTURE COMP METABOLIC PANEL [SQCMP] Order #: [id number] FUTURE FERRITIN BLD [SQFERR] Order #: [id number] FUTURE FOLATE SERUM [SQSERFOL] Order #: [id number] FUTURE IRON + TIBC [SQIRON] Order #: [id number] FUTURE MAGNESIUM BLD [SQMG1] Order #: [id number] FUTURE METHYLMALONIC ACID [SQMMA] Order #: [id number] FUTURE PREALBUMIN BLD [SQPREALB] Order #: [id number] FUTURE PROTHROMBIN TIME/PT [SQPT] Order #: [id number] FUTURE VITAMIN D 25 HYDROXY [SQVITD] Order #: [id number] FUTURE VITAMIN B6/PYRIDOXIN [SQVITB6] Order #: [id number] FUTURE VITAMIN B12 BLOOD [SQB12] Order #: [id number] FUTURE VITAMIN B1/THIAMINE, WHOLE BLD [NCH8ZCZ] Order #: [id number] FUTURE VITAMIN A/RETINOL [SQVITA] Order #: [id number] FUTURE Prescriptions as of 10/06/2017 Sig: BIOTIN ORAL Take by mouth once daily. CALCIUM 600 ORAL Take by mouth twice daily. SODIUM BICARBONATE ORAL Take by mouth once daily. MULTI ORAL Take by mouth. DRONABINOL 2.5 MG CAPSULE Take 1 capsule by mouth four * POLYSACCHARIDE IRON COMPLEX 1* Take 1 capsule by mouth twice* ESOMEPRAZOLE MAGNESIUM 40 MG * Take 1 capsule by mouth once * TACROLIMUS 1 MG CAPSULE Take (1) capsule by mouth twi* X AMLODIPINE 2.5 MG TABLET Take 1 tablet by mouth once d* PREDNISONE 5 MG TABLET Take 1 tablet by mouth once d* CHOLECALCIFEROL (VITAMIN D3) * Take 1 capsule by mouth once * [id number] 12,00* Take 1 capsule by mouth three* CALCIUM CITRATE-ERGOCALCIFERO* Take 2 tablets by mouth twice* THERAPEUTIC MULTIVITAMIN TABL* Take 1 tablet by mouth twice * GABAPENTIN ORAL Take 300 mg by mouth twice da* OXYCODONE 5 MG TABLET Take 1 tablet by mouth every * LEVONORGESTREL 20 MCG/24 HR (* 1 Each by INTRAUTERINE route * TIZANIDINE 4 MG TABLET Take 1 tablet by mouth every * ALBUTEROL SULFATE HFA 90 MCG/* 2 Puffs every 4 hours as need* Patient not taking: Reported on 10/06/2017 COMPOUNDED PRESCRIPTION Outpatient physical therapy Patient not taking: Reported on 09/29/2017 COLESTIPOL 1 GRAM TABLET Take 1 tablet by mouth twice * CYANOCOBALAMIN (VIT B-12) 1,0* Inject 1 mL intramuscularly o* Patient not taking: Reported on 10/06/2017 SYRINGE (DISPOSABLE) 1 ML 1 mL as directed. Problem List As Of Date 10/06/2017 Noted Resolved Anemia in chronic kidney disease [N18.9, D63.1] INVALID FOR* More... Chronic kidney disease, stage III (moderate) [N*INVALID FOR*08/27/2017 More... History of gastric cancer [Z85.028] INVALID FOR*12/30/2016 More... 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 GERD (gastroesophageal reflux disease) [K21.9] INVALID FOR* Weight loss [R63.4] INVALID FOR* More... CRD (chronic renal disease) [N18.9] INVALID FOR* Reflux esophagitis [K21.0] INVALID FOR* GIB (gastrointestinal bleeding) [K92.2] INVALID FOR*12/30/2016 More... Acute blood loss anemia [D62] INVALID FOR* More... 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 Essential hypertension [I10] INVALID FOR* More... Peptic ulcer disease with hemorrhage [K27.4] INVALID FOR*12/30/2016 Exusd-wv-fiucgji kidney injury (HCC) [N17.9, N1*INVALID FOR*12/30/2016 More... Nausea AND vomiting [R11.2] INVALID FOR*12/30/2016 More... GI bleed [K92.2] INVALID FOR* Priority: C More... History of gastric cancer [Z85.028] INVALID FOR* More... Pancytopenia (HCC) [D61.818] INVALID FOR* Priority: B Central line infection [T80.219A] INVALID FOR*02/27/2017 Priority: A More... Severe protein-calorie malnutrition (HCC) [E43] INVALID FOR* More... Hx of transfusion [Z92.89] INVALID FOR* More... Pneumonia [J18.9] INVALID FOR*07/14/2017 Priority: A More... Pancreatic insufficiency [K86.89] INVALID FOR* More... JENNIFFER (acute kidney injury) (HCC) [N17.9] INVALID FOR*07/14/2017 More... Macrocytic anemia [D53.9] INVALID FOR* More... Thrombocytopenia (HCC) [D69.6] INVALID FOR* More... Respiratory failure with hypoxia (HCC) [J96.91] INVALID FOR*07/14/2017 More... Bacteremia [R78.81] INVALID FOR*07/14/2017 More... Chronic kidney disease, stage 4, severely decre*INVALID FOR* Anemia in stage 4 chronic kidney disease (HCC) *INVALID FOR* Iron malabsorption [K90.9] INVALID FOR* S/P partial gastrectomy [Z90.3] INVALID FOR* Other instructions from your clinician: Diet Changes 1) Decrease water 2) Decrease magalys dedrick 3) Eat multiple (5-6) small meals/day 4) Trial of OWYN Supplement or something similar Follow-up and Disposition History Recorded Letter Text Encounter Status:Closed by AUSTEN PIERSON MD on 10/06/17 KESHA HEMATOCRIT Collected: 10/06/2017 Status: F Source: [place] 10:25 AM [facility] REPOSITORY TYPE CODE TESTS RESULT OUT OF REFERENCE UNITS RANGE LAB WHCT 36.0-46.0 % Low Kesha Hematocrit 33.2 Result Comment: Test performed at: [facility], [address] [place] [address] Rd[address] [place] [address]. KESAH HEMOGLOBIN Collected: 10/06/2017 Status: F Source: [place] 10:25 AM [facility] REPOSITORY TYPE CODE TESTS RESULT OUT OF REFERENCE UNITS RANGE LAB WHGB 11.5-15.5 g/dL Low Kesha Hemoglobin 10.7 Result Comment: Test performed at: [facility], [address] [place] [address] Rd[address] [place] [address]. PROGRESS Observed: 10/03/2017 Status: COMPLETED Source: [place] 9:43 AM [facility] REPOSITORY HNO ID: [id number] Author: Marietta Moralez LPN Service: (none) Author Type: (none) Type: Progress Notes Filed: 10/08/2017 4:29 PM Note Text: Val Valverde NP 2018 : 1970 11/07/2015 (Dr. Jacob Belcher / [facility]) EGD. Findings: The examined esophagus was normal. Evidence of a previous gastrectomy with a small gastric remnant. At the gastrojejunal surgical anastomosis there was a 1 X 2 cm ulcer with a white exudate without a visible vessel or other stigmata of bleeding. Biopsies were taken with a cold forceps for histology. The examined jejunum was normal for about 20 cm. SURGICAL PATHOLOGY. Gastrojejunal ulcer anastomosis, biopsy - Active enteritis with architectural distortion, focal subepithelial collagen deposition and detached fragments of fibrinopurulent debris consistent with ulcer, see comment. CMV inclusions are present. Comment: CMV and HSV immunostains were performed due to the presence of ulceration and CMV highlights viral inclusions. HSV shows nonspecific staining and no definitive HSV inclusions. 05/30/2016 (Dr. Andrey Barajas / [facility]) EGD. Findings: The esophagus was normal. LES at 40cm. Evidence of a patent Billroth I gastrojejunostomy was found. A gastric pouch with a normal size was found. This was traversed. There is persistence of a large anastomotic ulcer extending 3-4 cm down the jejunostomy limb. This was biopsied. The examined jejunum was normal. SURGICAL PATHOLOGY: Gastrojejunal anastomotic ulcer, biopsy - Active enteritis with fibrinopurulent debris consistent with ulcer, see comment. Positive for CMV antigens on immunostain. Comment: Given the background of active inflammation with ulcer, immunohistochemical stain for the infection of CMV antigens was performed and is positive, consistent with CMV-related enteritis. 08/01/2016 (Dr. Andrey Barajas / [facility]) EGD. Findings: Localized candidiasis was found in the middle third of the esophagus and in the lower third of the esophagus. Biopsies were taken with a cold forceps for histology. Evidence of a Billroth I anastomosis was found in the stomach. There is persistence of a large gastric ulcer wrapping into the duodenal segment. One non-bleeding cratered duodenal ulcer with no stigmata of bleeding was found in the first part of the duodenum. SURGICAL PATHOLOGY: A. Gastric pouch ulcer, biopsy ? Ulcerated small bowel mucosa with granulation tissue. Positive for CMV inclusions. See comment. B. Esophagus, biopsy ? Esophageal squamous mucosa with focal active inflammation. No evidence of intestinal metaplasia or dysplasia. Comment A. Immunohistochemical stain for CMV is performed in the presence of ulceration and is positive for viral inclusions consistent with CMV related enteritis. 09/25/2016 (Dr. Andrey Barajas AND Dr. Wilma Jnoes / [facility]) EGD. Findings: The examined esophagus was normal. The Z-line was regular and was found 36 cm from the incisors. Evidence of an antrectomy was found in the gastric body. Biopsies were taken from the gastric remnant with a cold forceps for histology. Estimated blood loss was minimal. One large non-bleeding cratered gastric ulcer with no stigmata of bleeding was found in the gastric body extending into the duodenum. Biopsies were taken with a cold forceps for CMV histology and culture. Estimated blood loss was minimal. The duodenum was normal. SURGICAL PATHOLOGY: Stomach, biopsy - Mild chronic inactive gastritis. No morphologic evidence of Helicobacter pylori. 11/01/2016 (Dr. Sahil Kurtz / [facility]) EGD. Findings: No gross lesions were noted in the entire esophagus. Evidence of a gastroenterostomy was found in the gastric antrum. Food residues were found in the residual gastric lumen which was deformed. This was characterized by ulceration at the anastomosis of approximately 2-3 cm and an intact staple line. Biopsies were taken with a cold forceps for histology and culture. The examined jejunal lumen appeared grossly normal. 11/17/2016 ([facility] / LAB) Gastric remnant, Biopsies ? Acute and Chronic gastritis. Immunohistochemical stain for Helicobacter pylori is negative for organisms. Comment: There are no cytologic features of CMV infection identified. This was evaluated using a laboratory developed test. 12/20/2016 (Dr. Prabhu Dahl AND Dr. Delano Segovia / [facility]) EGD. Findings: The examined esophagus was normal. Evidence of a Layne-en-Y gastrojejunostomy was found. This was not traversed. The [id number]-hp-[id number] limb was characterized by ulceration with a clean base. There was a small amount of dark red blood (likely old blood) was seen in the gastric remnant with blood clot. The blood was suctioned but the clot could not be suctioned. There was no evidence of fresh blood in the stomach and no active site of bleeding was identified. There was inflammation at the site of G-J anastomosis and the scope was not advanced beyond the anastomosis. The anastomosis appeared intact. 12/21/2016 (Dr. Ruby Hernández / [facility]) EGD. Findings: The examined esophagus was normal. Evidence of a Layne-en-Y gastrojejunostomy was found. There was a large blood clot with dark old blood in the gastric pouch. The clot was located over the blind pouch and could not be suctioned due to which a large portion of underlying mucosa could not be examined. The gastrojejunal anastomosis was characterized by ulceration with oozing. The examined jejunum contained blood but no bleeding lesion seen. 12/22/2016 (Dr. Jacob Cruz / [facility]) EGD. Findings: The examined esophagus was normal. Evidence of a Layne-en-Y gastrojejunostomy was found. The gastrojejunal anastomosis was characterized by stenosis, erythema, friable mucosa and an area of ulceration at least 3 cm in length without a visible vessel or recent stimata of bleeding. This was traversed and were able to pass the endoscope into the jejunum beyond the GJ junction. There was an adherent blood clot. Hemostatic clips x 2 were placed at the base of the adherent clot. One area of possibly slight fresh bleeding was seen distal to the clot. One clip was applied. There was no bleeding following the procedure. The examined gastric pouch was normal, which was washed with evidence of old stingy thin blood clots but no active bleeding. The GJ anastomosis was located at 39 cm. 12/25/2016 (Dr. Ruby Hernández / [facility]) EGD. Findings: The examined esophagus was normal. Evidence of a Layne-en-Y gastrojejunostomy was found. The gastrojejunal anastomosis was characterized by clean based 5cm ulceration at the anastomosis. The remanant stomach pouch had a lot old blood and clots which were removed with a clot buster scope and bio-evac.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 MDRD Study equation using the following parameters: serum creatinine, age, gender and race. The creatinine assay has been calibrated to be traceable to IDMS. An eGFR <60 mL/min/1.73m2 for >3 months is consistent with chronic kidney disease. Refer to KDOQI guidelines for clinical interpretation. In patients with unstable renal function, e.g. those with acute kidney injury, the eGFR may not accurately reflect actual GFR. Performed By: #### CMP #### [facility] [address] [place], [place] [address] TACROLIMUS / FK506 Collected: 09/24/2017 Status: F Source: [place] 1:10 PM [facility] REPOSITORY TYPE CODE TESTS RESULT OUT OF REFERENCE UNITS RANGE LAB FK506 5.0-20.0 ng/mL Tacrolimus / 5.9 FK506 Result Comment: These reference ranges are provided as a general recommendation. Individualized target levels for a given patient will depend on many factors (including the type of organ transplant, ti me since transplantation, concurrent medications, and other clinical factors), and should be assessed by those health care providers experienced in the management of immunosuppression. Reference ranges and high/low indicator flags are provided as general guidelines only. The treating physician must determine appropriate target levels/dosing based on the specific clinical situation. Test performed by chemiluminescent immunoassay using [employer] Staff Member. Performed By: #### FK506 #### [facility] [address] [place], [place] [address] CNCO Observed: 09/24/2017 Status: COMPLETED Source: [place] 12:00 AM [facility] REPOSITORY Letter Text September 24, 2017 Val Deangelo Abram [id number] [address] [facility] [address] Dear Ms. Valverde, In the event you are not able to come to your appointment, please contact us to cancel so that we can accommodate other patients who are waiting to be seen by our specialists. The following options are available to assist you with cancelling your appointment: You may notify the [facility] Call Center at [phone]. You may notify your provider's office directly. You may view the details of your upcoming appointments using [employer] on your computer or mobile device. Appointments can be confirmed or cancelled within [employer]. Patients can enroll to receive a text message reminder the day before their appointment. Here's what you need to know: Enroll by simply texting [email or web address] to [phone]. Your cell phone number must be registered with a [facility] Appointment Senior Advisory. To confirm, please call [phone]. Patients can opt in or out at any time. You must be 18 years or older to receive the text reminder Sincerely, [facility] Department of Gastroenterology AND Hepatology PROGRESS Observed: 09/16/2017 Status: COMPLETED Source: [place] 10:23 AM [facility] REPOSITORY HNO ID: [id number] Author: Asia Mendoza (Pa) Service: (none) Author Type: Physician Milk Vendor Type: Progress Notes Filed: 09/18/2017 11:12 AM Note Text: FOLLOW UP VISIT - POST OP NAME: Val Valverde [facility] NO[facility] [id number] DATE OF SERVICE: 09/08/2017 : 1970 REFERRING PHYSICIAN: Wil To Val is a patient I am following with Dr. Baldwin for an anal lesion. Dr. Baldwin performed an excision of this lesion on 08/29/17. The patient currently notes no problems. Pathology showed: FINAL DIAGNOSIS A. Skin, anal lesion, excision - Condyloma acuminatum. WFB/PF/db 09/01/2017 VITALS: Blood pressure 160/90, pulse 66, weight 36.3 kg (80 lb). On examination, the excision site is healing nicely with no signs of infection or inflammation Assessment IMPRESSION: Status post excision of anal condyloma. Kidney transplant recipient, on immunosuppressive medication PLAN: If the patient notes any problems or signs of wound infections, she should contact me immediately. Pathology results were reviewed with the patient. 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 Would also recommend consideration for possible anoscopy to evaluate for lesions in the anal canal. Patient verbalized understanding of above and agreed with the plan. Diagnoses: (A63.0) Anal condyloma (primary encounter diagnosis) Asia Mendoza PA-C XR CHEST 2V FRONTAL/LAT Observed: 09/15/2017 Status: F Source: [place] 3:08 PM [facility] REPOSITORY * * *Final Report* * * DATE OF EXAM: Sep 15 2017 3:08PM WOX [id number] - XR CHEST 2V FRONTAL/LAT / PROCEDURE REASON: multiple diagnoses * * * * Physician Interpretation * * * * EXAMINATION: CHEST RADIOGRAPH (2 VIEW FRONTAL and LATERAL) Clinical History: Pneumonia, unspecified organism Shortness of breath MQ: XC2_5 Comparison: Comparison is made to prior chest dated and June 2017 RESULT: Lines, tubes, and devices: None. Lungs and pleura: Right lung is well aerated. There is interval development of left basilar airspace consolidation with air fluid level suggesting large pleural effusion and likely some compressive atelectasis. There is no vascular redistribution to suggest pulmonary edema. Cardiomediastinal silhouette: Visualized cardiomediastinal silhouette is within normal limits Other: The bony structures are intact. IMPRESSION: Left basilar airspace disease with moderately large left pleural effusion. Culinary Assistant: PSCB Transcribe Date/Time: Sep 15 2017 4:55P Dictated by : WOODY RAMON MD This examination was interpreted and the report reviewed and electronically signed by: WOODY RAMON MD on Sep 15 2017 4:56PM EST [id number] [id number] Observed: 09/15/2017 Status: COMPLETED Source: [place] 2:59 PM [facility] REPOSITORY HNO ID: [id number] Author: Deshawn Smith (Rt) Malina Delcid Service: (none) Author Type: Micro Computer Specialist Type: Progress Notes Filed: 09/15/2017 3:03 PM Note Text: Radiology Service Progress Note PATIENT NAME: Val Valverde DATE OF SERVICE: September 15, 2017 TIME: 2:59 PM PATIENT IDENTITY VERIFICATION COMPLETED USING TWO (2) METHODS: Patient confirmed name verbally and Date of . PATIENT GENDER DATA: Female. status: : No status: NO. PATIENT RELEVANT IMPLANT DATA REVIEWED: Not Applicable RADIOLOGY DEPARTMENT: General X-ray: Exam(s) Completed: Chest X-Ray PERIPHERAL IV DATA: Not applicable SIGNED BY: RT Cristal September 15, 2017 2:59 PM [facility] ABS GR + CBC Collected: 09/15/2017 Status: F Source: [place] 11:35 AM [facility] REPOSITORY TYPE CODE TESTS RESULT OUT OF REFERENCE UNITS RANGE LAB WWBC 3.70-11.00 k/uL [place] High WBC 11.63 LAB WRBC 3.90-5.20 m/uL [place] Low RBC 2.69 LAB WHGB 11.5-15.5 g/dL [place] Low Hemoglobin 9.6 LAB WHCT 36.0-46.0 % [facility] Low Hematocrit 29.9 LAB WMCV 80.0-100.0 fL [place] MCV Result checked and verified LAB WMCH 26.0-34.0 pg [place] High MCH 35.7 LAB WMCHC 30.5-36.0 g/dL [facility] MCHC 32.1 LAB WRDW 11.5-15.0 % [facility] High RDW 18.5 LAB WPLT 150-400 k/uL [place] Platelet Cnt 161 LAB WMPV 9.0-12.7 fL [place] MPV 10.9 Result Comment: Test performed at: [facility], [address] [place] [address] Rd[address] [place] [address]. LAB ABGRAN 1.45-7.50 k/uL High Absol 8.97 Gran Count IRON AND TIBC Collected: 09/15/2017 Status: F Source: [place] 11:35 AM [facility] REPOSITORY TYPE CODE TESTS RESULT OUT OF REFERENCE UNITS RANGE LAB IRN 41-186 ug/dL Iron 78 LAB TIBC 232-386 ug/dL Low TIBC 215 LAB SAT 15-57 % Transferrin Saturatn 36 Performed By: #### IRON, FERR #### [facility] [address] [address] FERRITIN Collected: 09/15/2017 Status: F Source: [place] 11:35 AM [facility] REPOSITORY TYPE CODE TESTS RESULT OUT OF REFERENCE UNITS RANGE LAB FERR 14.7-205.1 ng/mL High Ferritin 1220.0 Performed By: #### IRON, FERR #### [facility] [address] [place] [address] IRON AND TIBC Collected: 09/08/2017 Status: F Source: [place] 11:07 AM [facility] REPOSITORY TYPE CODE TESTS RESULT OUT OF REFERENCE UNITS RANGE LAB IRN 41-186 ug/dL Iron 69 LAB TIBC 232-386 ug/dL Low TIBC 211 LAB SAT 15-57 % Transferrin Saturatn 33 Performed By: #### IRON, FERR #### [facility] [address] [place] [address] FERRITIN Collected: 09/08/2017 Status: F Source: [place] 11:07 AM [facility] REPOSITORY TYPE CODE TESTS RESULT OUT OF REFERENCE UNITS RANGE LAB FERR 14.7-205.1 ng/mL High Ferritin 1282.0 Performed By: #### IRON, FERR #### [facility] [address] [place], [place] [address] KESHA ABS GR + CBC Collected: 09/08/2017 Status: F Source: [place] 11:06 AM [facility] REPOSITORY TYPE CODE TESTS RESULT OUT OF REFERENCE UNITS RANGE LAB WWBC 3.70-11.00 k/uL [facility] High WBC 13.60 LAB WRBC 3.90-5.20 m/uL Low [place] RBC 2.63 LAB WHGB 11.5-15.5 g/dL Low [place] Hemoglobin 9.2 LAB WHCT 36.0-46.0 % Low [place] Hematocrit 29.3 LAB WMCV 80.0-100.0 fL [place] High MCV 111.4 Result Comment: Result checked and verified LAB WMCH 26.0-34.0 pg High [place] MCH 35.0 LAB WMCHC 30.5-36.0 g/dL [place] MCHC 31.4 LAB WRDW 11.5-15.0 % High [place] RDW 19.1 LAB WPLT 150-400 k/uL [facility] 173 Platelet Cnt LAB WMPV 9.0-12.7 fL [place] MPV 10.2 Result Comment: Test performed at: [facility], [address] [place] [address]., [place] [address]. LAB ABGRAN 1.45-7.50 k/uL High Absol 10.68 Gran Count CNOV Observed: 09/08/2017 Status: COMPLETED Source: [place] 10:45 AM [facility] REPOSITORY Office Visit (GENSWS) VAL VALVERDE ([id number]) 1970 F TRN Date Time Provider Department 09/08/17 10:45 AM ASIA MENDOZA) GENRAPHAELS During your visit today, we recorded the following information about you: Pulse Blood pressure Weight 66/minute 160/90 36.3 kg Asia Mendoza PA-C 09/18/2017 11:12 AM Signed FOLLOW UP VISIT - POST OP NAME: Val Valverde [facility] NO[facility] [id number] DATE OF SERVICE: 09/08/2017 : 1970 REFERRING PHYSICIAN: Wil To Val is a patient I am following with Dr. Baldwin for an anal lesion. Dr. Baldwin performed an excision of this lesion on 08/29/17. The patient currently notes no problems. Pathology showed: FINAL DIAGNOSIS A. Skin, anal lesion, excision - Condyloma acuminatum. WFB/PF/db 09/01/2017 VITALS: Blood pressure 160/90, pulse 66, weight 36.3 kg (80 lb). On examination, the excision site is healing nicely with no signs of infection or inflammation Assessment IMPRESSION: Status post excision of anal condyloma. Kidney transplant recipient, on immunosuppressive medication PLAN: If the patient notes any problems or signs of wound infections, she should contact me immediately. Pathology results were reviewed with the patient. 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 Would also recommend consideration for possible anoscopy to evaluate for lesions in the anal canal. Patient verbalized understanding of above and agreed with the plan. Diagnoses: (A63.0) Anal condyloma (primary encounter diagnosis) MATEO Jay PA-C 10/09/2017 3:26 PM Signed Discussed w/pathologist who will perform CISH testing to help determine high-risk vs low-risk condyloma, based upon these results will make further follow-up recommendations Asia Mendoza PA-C 01/06/2018 12:24 PM Signed Results were negative for high-risk HPV as noted below. Note results had gone to incorrect provider in [facility] causing delay in receiving/reviewing results. PROCEDURE(S) CISH HPV LOW RISK ? Date Ordered: ?10/14/2017 ? ? ? Date Reported: ?10/16/2017 Procedure Results and Interpretation At request of the clinician, chromogenic in situ hybridization (CISH) studies for high risk HPV were obtained on case [id number]. The results of HPV CISH testing are negative for high risk HPV. Clinical correlation is recommended. Reviewed with Dr. Baldwin, per Dr. Baldwin no additional surgical surveillance required based on these results. Discussed with patient, who is instructed to follow up with us if she notes any new concerns or recurrent lesions. Patient verbalized understanding. Referring Provider: VANI BALDWIN [[id number]] Allergies As of Date: 09/08/2017 Noted Allergy Reaction SULFA (SULFONAMIDE ANTIBIOTICS) 04/07/2001 4 - Hives Comments: hives NSAIDS (NON-STEROIDAL ANTI-INFLAM*04/23/2016 5 - Intolerance Date Reviewed: 09/08/2017 Reviewed by: Keri Briseno RN - Fully Assessed Reason for Visit: Post Op [174] Cmt: anal lesion excision Primary Visit Diagnosis:Anal condyloma [A63.0] Prescriptions as of 09/08/2017 Sig: X POLYSACCHARIDE IRON COMPLEX 1* Take 1 capsule by mouth twice* X DRONABINOL 2.5 MG CAPSULE Take 1 capsule by mouth four * X ESOMEPRAZOLE MAGNESIUM 40 MG * Take 1 capsule by mouth once * X TACROLIMUS 1 MG CAPSULE Take (1) capsule by mouth twi* ALBUTEROL SULFATE HFA 90 MCG/* 2 Puffs every 4 hours as need* COMPOUNDED PRESCRIPTION Outpatient physical therapy X AMLODIPINE 2.5 MG TABLET Take 1 tablet by mouth once d* X COLESTIPOL 1 GRAM TABLET Take 1 tablet by mouth twice * PREDNISONE 5 MG TABLET Take 1 tablet by mouth once d* X CHOLECALCIFEROL (VITAMIN D3) * Take 1 capsule by mouth once * X GNHGRI-OTLMNUIZ-KAPPMAS 12,00* Take 1 capsule by mouth three* X CALCIUM CITRATE-ERGOCALCIFERO* Take 2 tablets by mouth twice* THERAPEUTIC MULTIVITAMIN TABL* Take 1 tablet by mouth twice * GABAPENTIN ORAL Take 300 mg by mouth twice da* X CYANOCOBALAMIN (VIT B-12) 1,0* Inject 1 mL intramuscularly o* Patient not taking: Reported on 10/06/2017 OXYCODONE 5 MG TABLET Take 1 tablet by mouth every * LEVONORGESTREL 20 MCG/24 HR (* 1 Each by INTRAUTERINE route * X SYRINGE (DISPOSABLE) 1 ML 1 mL as directed. TIZANIDINE 4 MG TABLET Take 1 tablet by mouth every * Problem List As Of Date 09/08/2017 Noted Resolved Anemia in chronic kidney disease [N18.9, D63.1] INVALID FOR* More... Chronic kidney disease, stage III (moderate) [N*INVALID FOR*08/27/2017 More... History of gastric cancer [Z85.028] INVALID FOR*12/30/2016 More... 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 GERD (gastroesophageal reflux disease) [K21.9] INVALID FOR* Weight loss [R63.4] INVALID FOR* More... CRD (chronic renal disease) [N18.9] INVALID FOR* Reflux esophagitis [K21.0] INVALID FOR* GIB (gastrointestinal bleeding) [K92.2] INVALID FOR*12/30/2016 More... Acute blood loss anemia [D62] INVALID FOR* More... 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 Essential hypertension [I10] INVALID FOR* More... Peptic ulcer disease with hemorrhage [K27.4] INVALID FOR*12/30/2016 Njgnr-ye-ehpajcl kidney injury (HCC) [N17.9, N1*INVALID FOR*12/30/2016 More... Nausea AND vomiting [R11.2] INVALID FOR*12/30/2016 More... GI bleed [K92.2] INVALID FOR* Priority: C More... History of gastric cancer [Z85.028] INVALID FOR* More... Pancytopenia (HCC) [D61.818] INVALID FOR* Priority: B Central line infection [T80.219A] INVALID FOR*02/27/2017 Priority: A More... Severe protein-calorie malnutrition (HCC) [E43] INVALID FOR* More... Hx of transfusion [Z92.89] INVALID FOR* More... Pneumonia [J18.9] INVALID FOR*07/14/2017 Priority: A More... Pancreatic insufficiency [K86.89] INVALID FOR* More... JENNIFFER (acute kidney injury) (HCC) [N17.9] INVALID FOR*07/14/2017 More... Macrocytic anemia [D53.9] INVALID FOR* More... Thrombocytopenia (HCC) [D69.6] INVALID FOR* More... Respiratory failure with hypoxia (HCC) [J96.91] INVALID FOR*07/14/2017 More... Bacteremia [R78.81] INVALID FOR*07/14/2017 More... Chronic kidney disease, stage 4, severely decre*INVALID FOR* Anemia in stage 4 chronic kidney disease (HCC) *INVALID FOR* Iron malabsorption [K90.9] INVALID FOR* S/P partial gastrectomy [Z90.3] INVALID FOR* Letter Text Encounter Status:Closed by ASIA MENDOZA PA-C on 09/18/17 [facility] ABS GR + CBC Collected: 09/01/2017 Status: F Source: [place] 4:11 PM [facility] REPOSITORY TYPE CODE TESTS RESULT OUT OF REFERENCE UNITS RANGE LAB WWBC 3.70-11.00 k/uL [place] High WBC 13.11 LAB WRBC 3.90-5.20 m/uL Low [place] RBC 2.75 LAB WHGB 11.5-15.5 g/dL Low [place] Hemoglobin 9.7 LAB WHCT 36.0-46.0 % Low [place] Hematocrit 31.0 LAB WMCV 80.0-100.0 fL [place] High MCV 112.7 LAB WMCH 26.0-34.0 pg [place] High MCH 35.3 LAB WMCHC 30.5-36.0 g/dL [place] MCHC 31.3 LAB WRDW 11.5-15.0 % [place] High RDW 18.7 LAB WPLT 150-400 k/uL [facility] Platelet Cnt 211 LAB WMPV 9.0-12.7 fL [place] MPV 10.2 Result Comment: Test performed at: [facility], [address] [place] [address]. LAB ABGRAN 1.45-7.50 k/uL High Absol 11.79 Gran Count IRON AND TIBC Collected: 09/01/2017 Status: F Source: [place] 4:11 PM [facility] REPOSITORY TYPE CODE TESTS RESULT OUT OF REFERENCE UNITS RANGE LAB IRN 41-186 ug/dL Iron 71 LAB TIBC 232-386 ug/dL TIBC 243 LAB SAT 15-57 % Transferrin Saturatn 29 Performed By: #### IRON, FERR #### [facility] [address] [place], [place] [address] FERRITIN Collected: 09/01/2017 Status: F Source: [place] 4:11 PM [facility] REPOSITORY TYPE CODE TESTS RESULT OUT OF REFERENCE UNITS RANGE LAB FERR 14.7-205.1 ng/mL High Ferritin 712.5 Performed By: #### IRON, FERR #### [facility] [address] [place], [place] [address] PROCEDURE Observed: 08/31/2017 Status: COMPLETED Source: [place] 12:32 PM [facility] REPOSITORY HNO ID: [id number] Author: Vani Baldwin Service: (none) Author Type: Physician Type: Procedures Filed: 08/31/2017 12:36 PM Note Text: After informed consent was obtained, patient counseled to risks/benefits and agrees to proceed. Appropriate time out protocol was followed. Patient was placed in the lateral decubitus position. The skin overlying the lesion was cleansed with betadyne skin preparation. Sterile surgical drapes were placed. The skin and subcutaneous tissues were infiltrated with 1% xylocaine with epinephrine The anal skin lesions were attached to the anal mucosa, these lesions were excised with a 15 blade scalpel. The cumalative lesions were 1.8 cm in size. These were removed and placed in formalin for analysis by pathology. Hemostasis was achieved by pressure. The skin edges were reapproximated with interrupted 3-0 chromic gut suture. Patient tolerated the procedure well. PROGRESS Observed: 08/31/2017 Status: COMPLETED Source: [place] 12:30 PM [facility] REPOSITORY HNO ID: [id number] Author: Vani Baldwin Service: (none) Author Type: Physician Type: Progress Notes Filed: 08/31/2017 12:36 PM Note Text: Patient here for excision of skin lesions of anal tissue. Tolerated well Follow up next week for wound check and discussion of results. CNOV Observed: 08/29/2017 Status: COMPLETED Source: [place] 1:00 PM [facility] REPOSITORY Office Visit (GENSWS) VAL VALVERDE ([id number]) 1970 F TRN Date Time Provider Department 08/29/17 1:00 PM VANI BALDWIN During your visit today, we recorded the following information about you: Keri Briseno RN 08/31/2017 12:36 PM Signed UNIVERSAL PROTOCOL / SAFETY CHECKLIST Procedure to be performed: excision of anal skin lesion Sign in Communication: Completed Time Out: Team Confirms the Correct Patient, Correct Procedure, Correct Site and Site Marking, Correct Position (if applicable), Prep and Dry Time (if applicable). Time: 1300 Affirmation of Time Out: YES Sign Out Discussion: Completed Keri Briseno RN 08/29/2017 1:17 PM Signed The following instructions are important for you related to your office visit today with the [facility] General Surgeons. Instructions After SKIN EXCISION-SUTURES If there is minor bleeding from this skin edge, you should hold pressure on the area. If the wound shows signs of redness, inflammation, or purulent drainage, you should contact our office immediately. You may wash the wound with gentle soap and water. There are no sutures to remove. They will absorb on their own. We will call you with the results of the pathology. If you note any additional difficulties, questions, or concerns, you should contact our office immediately @ [phone] and ask to be transferred to the General Surgery department. Vani Baldwin MD 08/31/2017 12:36 PM Signed Patient here for excision of skin lesions of anal tissue. Tolerated well Follow up next week for wound check and discussion of results. Vani Baldwin MD 08/31/2017 12:36 PM Signed After informed consent was obtained, patient counseled to risks/benefits and agrees to proceed. Appropriate time out protocol was followed. Patient was placed in the lateral decubitus position. The skin overlying the lesion was cleansed with betadyne skin preparation. Sterile surgical drapes were placed. The skin and subcutaneous tissues were infiltrated with 1% xylocaine with epinephrine The anal skin lesions were attached to the anal mucosa, these lesions were excised with a 15 blade scalpel. The cumalative lesions were 1.8 cm in size. These were removed and placed in formalin for analysis by pathology. Hemostasis was achieved by pressure. The skin edges were reapproximated with interrupted 3-0 chromic gut suture. Patient tolerated the procedure well. Referring Provider: KERI ADAME ([facility]) [[id number]] Allergies As of Date: 08/29/2017 Noted Allergy Reaction SULFA (SULFONAMIDE ANTIBIOTICS) 04/07/2001 4 - Hives Comments: hives NSAIDS (NON-STEROIDAL ANTI-INFLAM*04/23/2016 5 - Intolerance Date Reviewed: 08/29/2017 Reviewed by: Keri Briseno RN - Fully Assessed Reason for Visit: Procedure [88] Visit Diagnoses:Skin lesion [L98.9] Anal lesion [K62.9] Order(s):SURGICAL PATHOLOGY [[id number]] Order #: [id number] Prescriptions as of 08/29/2017 Sig: POLYSACCHARIDE IRON COMPLEX 1* Take 1 capsule by mouth twice* DRONABINOL 2.5 MG CAPSULE Take 1 capsule by mouth four * ESOMEPRAZOLE MAGNESIUM 40 MG * Take 1 capsule by mouth once * SUCRALFATE 1 GRAM TABLET Take 1 tablet by mouth four t* TACROLIMUS 1 MG CAPSULE Take (1) capsule by mouth twi* ALBUTEROL SULFATE HFA 90 MCG/* 2 Puffs every 4 hours as need* COMPOUNDED PRESCRIPTION Outpatient physical therapy AMLODIPINE 2.5 MG TABLET Take 1 tablet by mouth once d* COLESTIPOL 1 GRAM TABLET Take 1 tablet by mouth twice * PREDNISONE 5 MG TABLET Take 1 tablet by mouth once d* CHOLECALCIFEROL (VITAMIN D3) * Take 1 capsule by mouth once * QPMOLC-[id number] 12,00* Take 1 capsule by mouth three* CALCIUM CITRATE-ERGOCALCIFERO* Take 2 tablets by mouth twice* THERAPEUTIC MULTIVITAMIN TABL* Take 1 tablet by mouth twice * GABAPENTIN ORAL Take 300 mg by mouth twice da* CYANOCOBALAMIN (VIT B-12) 1,0* Inject 1 mL intramuscularly o* OXYCODONE 5 MG TABLET Take 1 tablet by mouth every * LEVONORGESTREL 20 MCG/24 HR (* 1 Each by INTRAUTERINE route * SYRINGE (DISPOSABLE) 1 ML 1 mL as directed. TIZANIDINE 4 MG TABLET Take 1 tablet by mouth every * Problem List As Of Date 08/29/2017 Noted Resolved Anemia in chronic kidney disease [N18.9, D63.1] INVALID FOR* More... Chronic kidney disease, stage III (moderate) [N*INVALID FOR*08/27/2017 More... History of gastric cancer [Z85.028] INVALID FOR*12/30/2016 More... 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 GERD (gastroesophageal reflux disease) [K21.9] INVALID FOR* Weight loss [R63.4] INVALID FOR* More... CRD (chronic renal disease) [N18.9] INVALID FOR* Reflux esophagitis [K21.0] INVALID FOR* GIB (gastrointestinal bleeding) [K92.2] INVALID FOR*12/30/2016 More... Acute blood loss anemia [D62] INVALID FOR* More... 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 Essential hypertension [I10] INVALID FOR* More... Peptic ulcer disease with hemorrhage [K27.4] INVALID FOR*12/30/2016 Utmuu-iz-jfalcvm kidney injury (HCC) [N17.9, N1*INVALID FOR*12/30/2016 More... Nausea AND vomiting [R11.2] INVALID FOR*12/30/2016 More... GI bleed [K92.2] INVALID FOR* Priority: C More... History of gastric cancer [Z85.028] INVALID FOR* More... Pancytopenia (HCC) [D61.818] INVALID FOR* Priority: B Central line infection [T80.219A] INVALID FOR*02/27/2017 Priority: A More... Severe protein-calorie malnutrition (HCC) [E43] INVALID FOR* More... Hx of transfusion [Z92.89] INVALID FOR* More... Pneumonia [J18.9] INVALID FOR*07/14/2017 Priority: A More... Pancreatic insufficiency [K86.89] INVALID FOR* More... JENNIFFER (acute kidney injury) (HCC) [N17.9] INVALID FOR*07/14/2017 More... Macrocytic anemia [D53.9] INVALID FOR* More... Thrombocytopenia (HCC) [D69.6] INVALID FOR* More... Respiratory failure with hypoxia (HCC) [J96.91] INVALID FOR*07/14/2017 More... Bacteremia [R78.81] INVALID FOR*07/14/2017 More... Chronic kidney disease, stage 4, severely decre*INVALID FOR* Anemia in stage 4 chronic kidney disease (HCC) *INVALID FOR* Iron malabsorption [K90.9] INVALID FOR* S/P partial gastrectomy [Z90.3] INVALID FOR* Other instructions from your clinician: The following instructions are important for you related to your office visit today with the [facility] General Surgeons. Instructions After SKIN EXCISION-SUTURES If there is minor bleeding from this skin edge, you should hold pressure on the area. If the wound shows signs of redness, inflammation, or purulent drainage, you should contact our office immediately. You may wash the wound with gentle soap and water. There are no sutures to remove. They will absorb on their own. We will call you with the results of the pathology. If you note any additional difficulties, questions, or concerns, you should contact our office immediately @ [phone] and ask to be transferred to the General Surgery department. Encounter Status:Closed by MD VANI BALDWIN on 08/31/17 PROGRESS Observed: 08/29/2017 Status: COMPLETED Source: [place] 12:56 PM [facility] REPOSITORY HNO ID: [id number] Author: Keri Briseno RN Service: (none) Author Type: (none) Type: Progress Notes Filed: 08/31/2017 12:36 PM Note Text: UNIVERSAL PROTOCOL / SAFETY CHECKLIST Procedure to be performed: excision of anal skin lesion Sign in Communication: Completed Time Out: Team Confirms the Correct Patient, Correct Procedure, Correct Site and Site Marking, Correct Position (if applicable), Prep and Dry Time (if applicable). Time: 1300 Affirmation of Time Out: YES Sign Out Discussion: Completed Keri Briseno RN SURGICAL PATHOLOGY Observed: 08/29/2017 Status: F Source: [place] 12:00 AM [facility] REPOSITORY Specimen originated from [facility] Specimen #: [id number] Submitting Physician: VANI BALDWIN MD FINAL DIAGNOSIS A. Skin, anal lesion, excision - Condyloma acuminatum. WFB/PF/db 09/01/2017 Mary Vasquez M.D. (Electronic Signature) SPECIMEN SUBMITTED A: SKIN, ANAL LESION, EXCISION CLINICAL DATA ANAL SKIN LESION GROSS DESCRIPTION A. Received in formalin are multiple segments of chowdhury-brown, rubbery tissue aggregating to 3.7 x 1.2 x 0.8 cm. The specimens are bisected and totally submitted in three cassettes. Gross examination performed at [facility], [address] [place] [address] 08/29/2017 11:39:52 PM Date of Report: 09/01/2017 Date of Procedure: 08/29/2017 Date of Receipt: 08/29/2017 Submitted by: VANI BALDWIN MD Location: [facility] A3 Diagnostic interpretation performed at [place] [address]. PROGRESS Observed: 08/27/2017 Status: COMPLETED Source: [place] 4:00 PM [facility] REPOSITORY HNO ID: [id number] Author: Alex Tian Service: (none) Author Type: Physician Type: Progress Notes Filed: 08/28/2017 8:55 AM Note Text: PATIENT NAME: Val Valverde. CLINIC NO: [id number]. ATTENDING PHYSICIAN: Alex Tian MD. DATE OF SERVICE: 08/27/2017 ?? DIAGNOSIS: Anemia of chronic disease secondary stage IV renal failure; status post partial gastrectomy for gastric cancer History of renal transplant. ?? HPI: This is a 46-year-old woman from [facility] who was adopted into a family in the [place] at 1-1/2 years of age. In 2000, she had epigastric abdominal pain, was diagnosed with gastric carcinoma, had a radical near-total gastrectomy with Layne-en-Y gastrojejunostomy in 2000. She underwent postoperative chemotherapy and had complications of kidney issues resulting in a kidney transplant on February 21, 2010. She was previously on Procrit /Aranesp injection for treatment of her anemia. However, after her kidney transplant in 2010, her anemia had resolved. ?? There was a question at that time whether or not she had CMV infection as well. She was also noted to have condyloma acuminata. She was seen for weight loss and epigastric pain and had an EGD on November 07, 2015, by Dr. Jacob Belcher who noted normal esophagus, subtotal gastrectomy, and a gastrojejunal anastomosis with an ulcerations. Biopsies showed active enteritis, focal subepithelial collagen deposits, and ulcer with CMV inclusions present. She was seen by Dr. Silva of Infectious Disease for treatment of the CMV anastomotic ulcer in the setting of chronic immunosuppression and was placed on ganciclovir. Since 3 months ago, she had a moderate anemia with increased fatigue. However she had no recent blood transfusion. Evaluation in April show normal iron, vitamin B12 and folic acid level. Her erythropoietin level was decreased (27.2). Patient has no symptom of gastritis, epigastric pain, hematemesis or melena. Patient denies frequent headaches, palpitations, dizziness or lightheadedness. She has no cough or shortness of breath. She had a problem with diarrhea from pancreatic insufficiency. She denied any change in appetite or weight loss. ?? Current treatment: Aranesp 60 mcg every 2 weeks ? Interim history: Keyona is doing well with Aranesp injection. Her anemia has improved and she is asymptomatic. Patient is still having repeat endoscopy evaluation for gastric ulcer possibly secondary to CMV gastritis. She has no abdominal pain, intractable nausea or vomiting, or melena. Patient has no chest pain or shortness of breath. Her most recent iron studies showed an iron saturation of 19% with a normal ferritin. Her renal function and urine output has been stable with her transplanted kidney. She has no change in bowel habits, rectal bleeding or melena. ? All medications AND allergies updated and reviewed by me. ? REVIEW OF SYSTEMS: ?? CONSTITUTIONAL: No fevers, chills, nightsweats, unintended weight loss + fatigue HEENT: Denies frequent or severe heaches, nasal congestion/sinus symptoms, problematic allergy problems. EYES: No diplopia or blurry vision. CARDIOVASCULAR: No chest pain, dyspnea, palpitations, orthopnea, PND, ankle edema. PULM: No dyspnea, unexplained cough. GI: No dysphagia/odynophagia, problematic reflux, constipation, diarrhea, changes in stool habits, hematochezia, melena. : No new urinary complaints, including dysuria, gross hematuria or pyuria. NEURO: No new balance problems, peripheral weakness/paresthesias or numbness of concern. MUSC-SKEL: No new joint pain, swelling, or erythema. PSY: No concerns regarding depression, anxiety or panic. INTEGUMENTARY: No new skin changes (rash, new or changing mole, new growth) ? PHYSICAL EXAMINATION: 46 -year-old lady, thin but not cachectic in no acute distress BP 136/93 Pulse 97 Wt 77 lb (34.9kg) HEENT: Head is normocephalic, atraumatic. Sclerae white, conjunctivae pink. PEERL. EOMs are intact. Oropharynx is benign. Complexion pale LYMPHATICS: There is no palpable adenopathy in the neck, supraclavicular region, axillae, or groin. LUNGS: Lungs are clear to percussion and auscultation. HEART: Heart is normal without murmurs, gallops, or rubs. ABDOMEN: Soft and nontender without organomegaly. No masses can be palpated. EXTREMITIES: Are without edema. 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 LABORATORY DATA: Component Latest Ref Rng AND Units 08/25/2017 Protein, Total 6.3 - 8.0 g/dL 6.9 Albumin 3.9 - 4.9 g/dL 3.2 (L) Calcium 8.5 - 10.2 mg/dL 8.4 (L) Bilirubin, Total 0.2 - 1.3 mg/dL <0.2 (L) Alkaline Phosphatase 32 - 117 U/L 97 AST 13 - 35 U/L 37 (H) Glucose 74 - 99 mg/dL 101 (H) BUN 7 - 21 mg/dL 47 (H) Creatinine 0.58 - 0.96 mg/dL 3.41 (H) Sodium 136 - 144 mmol/L 140 Potassium 3.7 - 5.1 mmol/L 3.4 (L) Chloride 97 - 105 mmol/L 102 CO2 22 - 30 mmol/L 24 Anion Gap 9 - 18 mmol/L 14 ALT 7 - 38 U/L 32 eGFR- 18 eGFR-All Other Races . 15 WBC, Kesha 3.70 - 11.00 k/uL 12.39 (H) RBC, K[place] 3.90 - 5.20 m/uL 2.72 (L) Hemoglobin, [place] 11.5 - 15.5 g/dL 9.4 (L) Hematocrit, K[place]ha 36.0 - 46.0 % 29.9 (L) MCV, [place] 80.0 - 100.0 fL 109.9 (H) MCH, [place] 26.0 - 34.0 pg 34.6 (H) MCHC, [place] 30.5 - 36.0 g/dL 31.4 RDW, [place] 11.5 - 15.0 % 18.3 (H) Platelet Cnt, [place] 150 - 400 k/uL 232 MPV, K[place]ha 9.0 - 12.7 fL 10.5 Absol Gran Count 1.45 - 7.50 k/uL 9.12 (H) Component Latest Ref Rng AND Units 08/20/2017 Iron 41 - 186 ug/dL 40 (L) TIBC 232 - 386 ug/dL 212 (L) Transferrin Saturation 15 - 57 % 19 Retic % 0.4 - 2.0 % 3.5 (H) Abs Retic 0.0180 - 0.1000 M/uL 0.098 Ferritin 14.7 - 205.1 ng/mL 878.4 (H) ASSESSMENT: 45-year-old female with anemia of chronic disease secondary to moderately-severe stage IV renal failure. Although her iron saturation is 19%, low TIBC and low serum iron suggests protein malnutrition and iron malabsorption. ?? PLAN: This patient is symptomatic from her anemia. Continue Aranesp 60mcg subcutaneous every 14 days for hemoglobin less than 10 gm/dl. monitor HANDH every 2 weeks. Repeat iron studies, reticulocyte count and BMP every 3 months. OV in 6 months. Proceed with INJECTAFER 750mg IV x 1 this week, and start ferrous gluconate 150mg twice daily. Repeat CBC in our study the following week for Aranesp injection if indicated. Alex Tian MD CNOVSP Observed: 08/27/2017 Status: COMPLETED Source: [place] 3:20 PM [facility] REPOSITORY Visit (SP) Office (BREANNA) VAL VALVERDE ([id number]) 1970 F TRN Date Time Provider Department 08/27/17 3:20 PM ALEX TIAN During your visit today, we recorded the following information about you: Pulse Blood pressure Weight 97/minute 136/93 34.9 kg Alana Millan LPN 08/27/2017 3:37 PM Signed Est patient. Discuss recent labs and Aranesp. Alana Tian MD 08/27/2017 3:45 PM Addendum Start Iron (Ferrex 150mg) 1 x - 2 x daily Alex Tian MD 08/28/2017 8:55 AM Signed PATIENT NAME: Val Valvered. CLINIC NO: [id number]. ATTENDING PHYSICIAN: Alex Tian MD. DATE OF SERVICE: 08/27/2017 ?? DIAGNOSIS: Anemia of chronic disease secondary stage IV renal failure; status post partial gastrectomy for gastric cancer History of renal transplant. ?? HPI: This is a 46-year-old woman from [facility] who was adopted into a family in the [facility] at 1-1/2 years of age. In 2000, she had epigastric abdominal pain, was diagnosed with gastric carcinoma, had a radical near-total gastrectomy with Layne-en-Y gastrojejunostomy in 2000. She underwent postoperative chemotherapy and had complications of kidney issues resulting in a kidney transplant on February 21, 2010. She was previously on Procrit /Aranesp injection for treatment of her anemia. However, after her kidney transplant in 2010, her anemia had resolved. ?? There was a question at that time whether or not she had CMV infection as well. She was also noted to have condyloma acuminata. She was seen for weight loss and epigastric pain and had an EGD on November 07, 2015, by Dr. [place] Belcher who noted normal esophagus, subtotal gastrectomy, and a gastrojejunal anastomosis with an ulcerations. Biopsies showed active enteritis, focal subepithelial collagen deposits, and ulcer with CMV inclusions present. She was seen by Dr. Silva of Infectious Disease for treatment of the CMV anastomotic ulcer in the setting of chronic immunosuppression and was placed on ganciclovir. Since 3 months ago, she had a moderate anemia with increased fatigue. However she had no recent blood transfusion. Evaluation in April show normal iron, vitamin B12 and folic acid level. Her erythropoietin level was decreased (27.2). Patient has no symptom of gastritis, epigastric pain, hematemesis or melena. Patient denies frequent headaches, palpitations, dizziness or lightheadedness. She has no cough or shortness of breath. She had a problem with diarrhea from pancreatic insufficiency. She denied any change in appetite or weight loss. ?? Current treatment: Aranesp 60 mcg every 2 weeks ? Interim history: Keyona is doing well with Aranesp injection. Her anemia has improved and she is asymptomatic. Patient is still having repeat endoscopy evaluation for gastric ulcer possibly secondary to CMV gastritis. She has no abdominal pain, intractable nausea or vomiting, or melena. Patient has no chest pain or shortness of breath. Her most recent iron studies showed an iron saturation of 19% with a normal ferritin. Her renal function and urine output has been stable with her transplanted kidney. She has no change in bowel habits, rectal bleeding or melena. ? All medications ANDamp; allergies updated and reviewed by me. ? REVIEW OF SYSTEMS: ?? CONSTITUTIONAL: No fevers, chills, nightsweats, unintended weight loss + fatigue HEENT: Denies frequent or severe heaches, nasal congestion/sinus symptoms, problematic allergy problems. EYES: No diplopia or blurry vision. CARDIOVASCULAR: No chest pain, dyspnea, palpitations, orthopnea, PND, ankle edema. PULM: No dyspnea, unexplained cough. GI: No dysphagia/odynophagia, problematic reflux, constipation, diarrhea, changes in stool habits, hematochezia, melena. : No new urinary complaints, including dysuria, gross hematuria or pyuria. NEURO: No new balance problems, peripheral weakness/paresthesias or numbness of concern. MUSC-SKEL: No new joint pain, swelling, or erythema. PSY: No concerns regarding depression, anxiety or panic. INTEGUMENTARY: No new skin changes (rash, new or changing mole, new growth) ? PHYSICAL EXAMINATION: 46 -year-old lady, thin but not cachectic in no acute distress BP 136/93 Pulse 97 Wt 77 lb (34.9kg) HEENT: Head is normocephalic, atraumatic. Sclerae white, conjunctivae pink. PEERL. EOMs are intact. Oropharynx is benign. Complexion pale LYMPHATICS: There is no palpable adenopathy in the neck, supraclavicular region, axillae, or groin. LUNGS: Lungs are clear to percussion and auscultation. HEART: Heart is normal without murmurs, gallops, or rubs. ABDOMEN: Soft and nontender without organomegaly. No masses can be palpated. EXTREMITIES: Are without edema. 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 LABORATORY DATA: Component Latest Ref Rng ANDamp; Units 08/25/2017 Protein, Total 6.3 - 8.0 g/dL 6.9 Albumin 3.9 - 4.9 g/dL 3.2 (L) Calcium 8.5 - 10.2 mg/dL 8.4 (L) Bilirubin, Total 0.2 - 1.3 mg/dL ANDlt;0.2 (L) Alkaline Phosphatase 32 - 117 U/L 97 AST 13 - 35 U/L 37 (H) Glucose 74 - 99 mg/dL 101 (H) BUN 7 - 21 mg/dL 47 (H) Creatinine 0.58 - 0.96 mg/dL 3.41 (H) Sodium 136 - 144 mmol/L 140 Potassium 3.7 - 5.1 mmol/L 3.4 (L) Chloride 97 - 105 mmol/L 102 CO2 22 - 30 mmol/L 24 Anion Gap 9 - 18 mmol/L 14 ALT 7 - 38 U/L 32 eGFR- 18 eGFR-All Other Races . 15 WBC, [place] 3.70 - 11.00 k/uL 12.39 (H) RBC, Kesha 3.90 - 5.20 m/uL 2.72 (L) Hemoglobin, [place] 11.5 - 15.5 g/dL 9.4 (L) Hematocrit, [place] 36.0 - 46.0 % 29.9 (L) MCV, [place] 80.0 - 100.0 fL 109.9 (H) MCH, Kesha 26.0 - 34.0 pg 34.6 (H) MCHC, [place] 30.5 - 36.0 g/dL 31.4 RDW, [place] 11.5 - 15.0 % 18.3 (H) Platelet Cnt, [place] 150 - 400 k/uL 232 MPV, [place] 9.0 - 12.7 fL 10.5 Absol Gran Count 1.45 - 7.50 k/uL 9.12 (H) Component Latest Ref Rng ANDamp; Units 08/20/2017 Iron 41 - 186 ug/dL 40 (L) TIBC 232 - 386 ug/dL 212 (L) Transferrin Saturation 15 - 57 % 19 Retic % 0.4 - 2.0 % 3.5 (H) Abs Retic 0.0180 - 0.1000 M/uL 0.098 Ferritin 14.7 - 205.1 ng/mL 878.4 (H) ASSESSMENT: 45-year-old female with anemia of chronic disease secondary to moderately-severe stage IV renal failure. Although her iron saturation is 19%, low TIBC and low serum iron suggests protein malnutrition and iron malabsorption. ?? PLAN: This patient is symptomatic from her anemia. Continue Aranesp 60mcg subcutaneous every 14 days for hemoglobin less than 10 gm/dl. monitor HANDamp;H every 2 weeks. Repeat iron studies, reticulocyte count and BMP every 3 months. OV in 6 months. Proceed with INJECTAFER 750mg IV x 1 this week, and start ferrous gluconate 150mg twice daily. Repeat CBC in our study the following week for Aranesp injection if indicated. Alex Tian MD Referring Provider: ALEX TIAN [[id number]] Allergies As of Date: 08/27/2017 Noted Allergy Reaction SULFA (SULFONAMIDE ANTIBIOTICS) 04/07/2001 4 - Hives Comments: hives NSAIDS (NON-STEROIDAL ANTI-INFLAM*04/23/2016 5 - Intolerance Date Reviewed: 08/27/2017 Reviewed by: Alana Millan LPN - Fully Assessed Reason for Visit: Established Patient [175] Primary Visit Diagnosis:History of gastric cancer [Z85.028] Other Visit Diagnoses:Anemia in stage 4 chronic kidney disease (HCC) [N18.4, D63.1] Kidney transplant recipient [Z94.0] S/P partial gastrectomy [Z90.3] Chronic kidney disease, stage 4, severely decreased GFR (HCC) [N18.4] Iron malabsorption [K90.9] Order(s):iron polysaccharide complex (FERREX-150) 150 mg iron capsuleTake 1 capsule by mouth twice daily.Disp: 60 capsuleRfl: 2 Level of Service: EST PATIENT VISIT LEVEL 4 [[id number]] Disposition: Return in about 6 months (around 02/26/2018). LOS history recorded Follow-up and Disposition History Recorded Prescriptions as of 08/27/2017 Sig: DRONABINOL 2.5 MG CAPSULE Take 1 capsule by mouth four * ESOMEPRAZOLE MAGNESIUM 40 MG * Take 1 capsule by mouth once * SUCRALFATE 1 GRAM TABLET Take 1 tablet by mouth four t* TACROLIMUS 1 MG CAPSULE Take (1) capsule by mouth twi* ALBUTEROL SULFATE HFA 90 MCG/* 2 Puffs every 4 hours as need* AMLODIPINE 2.5 MG TABLET Take 1 tablet by mouth once d* PREDNISONE 5 MG TABLET Take 1 tablet by mouth once d* CHOLECALCIFEROL (VITAMIN D3) * Take 1 capsule by mouth once * [id number] 12,00* Take 1 capsule by mouth three* CALCIUM CITRATE-ERGOCALCIFERO* Take 2 tablets by mouth twice* THERAPEUTIC MULTIVITAMIN TABL* Take 1 tablet by mouth twice * GABAPENTIN ORAL Take 300 mg by mouth twice da* OXYCODONE 5 MG TABLET Take 1 tablet by mouth every * LEVONORGESTREL 20 MCG/24 HR (* 1 Each by INTRAUTERINE route * TIZANIDINE 4 MG TABLET Take 1 tablet by mouth every * POLYSACCHARIDE IRON COMPLEX 1* Take 1 capsule by mouth twice* COMPOUNDED PRESCRIPTION Outpatient physical therapy COLESTIPOL 1 GRAM TABLET Take 1 tablet by mouth twice * CYANOCOBALAMIN (VIT B-12) 1,0* Inject 1 mL intramuscularly o* SYRINGE (DISPOSABLE) 1 ML 1 mL as directed. Medication notes this encounter CYANOCOBALAMIN (VIT B-12) 1,000 MCG/ML INJECTION SOLUTION >> Alana Millan LPN 08/27/2017 3:32 PM >> ALANA MILLAN LPN FriAug 27, 2017 3:32 PM On hold Problem List As Of Date 08/27/2017 Noted Resolved Anemia in chronic kidney disease [N18.9, D63.1] INVALID FOR* More... Chronic kidney disease, stage III (moderate) [N*INVALID FOR*08/27/2017 More... History of gastric cancer [Z85.028] INVALID FOR*12/30/2016 More... 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 GERD (gastroesophageal reflux disease) [K21.9] INVALID FOR* Weight loss [R63.4] INVALID FOR* More... CRD (chronic renal disease) [N18.9] INVALID FOR* Reflux esophagitis [K21.0] INVALID FOR* GIB (gastrointestinal bleeding) [K92.2] INVALID FOR*12/30/2016 More... Acute blood loss anemia [D62] INVALID FOR* More... 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 Essential hypertension [I10] INVALID FOR* More... Peptic ulcer disease with hemorrhage [K27.4] INVALID FOR*12/30/2016 Kclvf-ul-bnxpyoa kidney injury (HCC) [N17.9, N1*INVALID FOR*12/30/2016 More... Nausea AND vomiting [R11.2] INVALID FOR*12/30/2016 More... GI bleed [K92.2] INVALID FOR* Priority: C More... History of gastric cancer [Z85.028] INVALID FOR* More... Pancytopenia (HCC) [D61.818] INVALID FOR* Priority: B Central line infection [T80.219A] INVALID FOR*02/27/2017 Priority: A More... Severe protein-calorie malnutrition (HCC) [E43] INVALID FOR* More... Hx of transfusion [Z92.89] INVALID FOR* More... Pneumonia [J18.9] INVALID FOR*07/14/2017 Priority: A More... Pancreatic insufficiency [K86.89] INVALID FOR* More... JENNIFFER (acute kidney injury) (HCC) [N17.9] INVALID FOR*07/14/2017 More... Macrocytic anemia [D53.9] INVALID FOR* More... Thrombocytopenia (HCC) [D69.6] INVALID FOR* More... Respiratory failure with hypoxia (HCC) [J96.91] INVALID FOR*07/14/2017 More... Bacteremia [R78.81] INVALID FOR*07/14/2017 More... Chronic kidney disease, stage 4, severely decre*INVALID FOR* Anemia in stage 4 chronic kidney disease (HCC) *INVALID FOR* Iron malabsorption [K90.9] INVALID FOR* S/P partial gastrectomy [Z90.3] INVALID FOR* Other instructions from your clinician: Start Iron (Ferrex 150mg) 1 x - 2 x daily Visit Notes: >> Alana Millan LPN FriAug 27, 2017 3:33 PM Status: Signed Est patient. Discuss recent labs and Aranesp. Alana Millan LPN Encounter Status:Closed by ALEX TIAN MD on 08/28/17 [place] ABS GR + CBC Collected: 08/25/2017 Status: F Source: [place] 11:10 AM [facility] REPOSITORY TYPE CODE TESTS RESULT OUT OF REFERENCE UNITS RANGE LAB WWBC 3.70-11.00 k/uL [place] High WBC 12.39 LAB WRBC 3.90-5.20 m/uL Low [place] RBC 2.72 LAB WHGB 11.5-15.5 g/dL Low [place] Hemoglobin 9.4 LAB WHCT 36.0-46.0 % Low [place] Hematocrit 29.9 LAB WMCV 80.0-100.0 fL [place] High MCV 109.9 LAB WMCH 26.0-34.0 pg [place] High MCH 34.6 LAB WMCHC 30.5-36.0 g/dL [place] MCHC 31.4 LAB WRDW 11.5-15.0 % [place] High RDW 18.3 LAB WPLT 150-400 k/uL [place] Platelet Cnt 232 LAB WMPV 9.0-12.7 fL [place] MPV 10.5 Result Comment: Test performed at: [facility], [address] [place] [address]. LAB ABGRAN 1.45-7.50 k/uL High Absol 9.12 Gran Count COMP METABOLIC PANEL Collected: 08/25/2017 Status: F Source: [place] 11:10 AM [facility] REPOSITORY TYPE CODE TESTS RESULT OUT OF REFERENCE UNITS RANGE LAB TP 6.3-8.0 g/dL Protein, Total 6.9 LAB ALB 3.9-4.9 g/dL Low Albumin 3.2 LAB CA 8.5-10.2 mg/dL Low Calcium, Total 8.4 LAB TBIL 0.2-1.3 mg/dL Low Bilirubin, Total <0.2 LAB ALKP 32-117 U/L Alkaline Phosphatase 97 LAB AST 13-35 U/L AST High 37 LAB GLU 74-99 mg/dL Glucose High 101 Result Comment: The [place] [employer] (ADA) provides guidance for cutoff values for fasting glucose and random glucose. The ADA defines fasting as no caloric intake for at least 8 hours. Fas ting plasma glucose results between 100 to 125 mg/dL indicate increased risk for diabetes (prediabetes). Fasting plasma glucose results greater than or equal to 126 mg/dL meet the criteria for diagnosis of diabetes. In the absence of unequivocal hyperglycemia, results should be confirmed by repeat testing. In a patient with classic symptoms of hyperglycemia or hyperglycemic crisis, random plasma glucose results greater than or equal to 200 mg/dL meet the criteria for diagnosis of diabetes. Reference: Standards of Medical Care in Diabetes 2016, [place] [employer]. Diabetes Care. 2016.39(Suppl 1). LAB BUN 7-21 mg/dL BUN High 47 LAB CRET 0.58-0.96 mg/dL Creatinine High 3.41 LAB NA 136-144 mmol/L Sodium 140 LAB K 3.7-5.1 mmol/L Low Potassium 3.4 LAB CL 97-105 mmol/L Chloride 102 LAB CO2 22-30 mmol/L CO2 24 LAB AGAP 9-18 mmol/L Anion Gap 14 LAB ALT 7-38 U/L ALT 32 LAB GFRAA eGFR- Amer. 18 LAB GFRNAA . eGFR-All Other Races 15 Result Comment: eGFR (Estimated GFR) Units of measure: mL/min/1.73 meters squared eGFR is derived from the reexpressed MDRD Study equation using the following parameters: serum creatinine, age, gender and race. The creatinine assay has been calibrated to be traceable to IDMS. An eGFR <60 mL/min/1.73m2 for >3 months is consistent with chronic kidney disease. Refer to KDOQI guidelines for clinical interpretation. In patients with unstable renal function, e.g. those with acute kidney injury, the eGFR may not accurately reflect actual GFR. Performed By: #### CMP, DOMINGO #### [facility] [address] [id number] BK VIRUS PCR,QUANT,P Collected: 08/25/2017 Status: F Source: [place] 11:10 AM [facility] REPOSITORY TYPE CODE TESTS RESULT OUT OF REFERENCE UNITS RANGE LAB BKVDNA copies/mL BK Negative for Virus DNA BK virus DNA QN PCR by PCR Result Comment: Reference Range: Negative for BK virus DNA The Linear Range of this assay is 500 copies/mL to 5,000,000 copies/mL. This test was developed and its performance characteristics determined by [facility]'s [facility] [place] ([facility] [[email or web address]). It has not been cleared or approved by the FDA. [facility] is regulated under CLIA as qualified to perform high-complexity testing. This test is used for clinical purposes. It should not be regarded as investigational or for research. Performed By: #### CMP, BKQUAN #### [address] [place] [address] TACROLIMUS / FK506 Collected: 08/25/2017 Status: F Source: [place] 11:10 AM [facility] REPOSITORY TYPE CODE TESTS RESULT OUT OF REFERENCE UNITS RANGE LAB FK506 5.0-20.0 ng/mL Low Tacrolimus / 2.1 FK506 Result Comment: These reference ranges are provided as a general recommendation. Individualized target levels for a given patient will depend on many factors (including the type of organ transplant, ti me since transplantation,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 tablet by mouth twice daily. albuterol HFA (PROAIR HFA) 90 mcg/actuation inhaler 2 Puffs every 4 hours as needed for Wheezing/Shortness of Breath. Take as directed COMPOUNDED PRESCRIPTION Outpatient physical therapy amLODIPine (NORVASC) 2.5 mg tablet Take 1 tablet by mouth once daily. esomeprazole (NEXIUM) 40 mg capsule Take 1 capsule by mouth DAILY (6 AM). dronabinol (MARINOL) 2.5 mg capsule Take 1 capsule by mouth four times daily for 30 days. colestipol (COLESTID) 1 gram tablet Take 1 tablet by mouth twice daily. predniSONE (DELTASONE) 5 mg tablet Take 1 tablet by mouth once daily. cholecalciferol, Vitamin D3, (VITAMIN D3) 50,000 unit cap capsule Take 1 capsule by mouth once each week. (ONE CAPSULE) FOR VITAMIN D DEFICIENCY vfptwi-mvwrtubs-ybsrmrb (CREON) 12,000-38,000 -60,000 unit cpDR Take 1 capsule by mouth three times daily with meals. tacrolimus (PROGRAF) 1 mg capsule Take (2) capsules by mouth every morning and (1) capsule every evening - ICD 10 = Z94.0 kidney transplant 02/21/2010 Calcium Citrate-Vitamin D2 1,500-200 mg-unit tab Take 2 tablets by mouth twice daily. therapeutic multivitamin (THERA VITAMIN) tablet Take 1 tablet by mouth twice daily. GABAPENTIN ORAL Take 300 mg by mouth twice daily. cyanocobalamin 1,000 mcg/mL soln Inject 1 mL intramuscularly once every month. oxyCODONE immediate release (ROXICODONE) 5 mg immediate release tablet Take 1 tablet by mouth every 8 hours as needed. levonorgestrel (MIRENA) 20 mcg/24 hour (5 years) IUD 1 Each by INTRAUTERINE route one time only for 1 dose. Syringe, Disposable, (B-D SYRINGE SLIP TIP 1CC) 1 mL Syrg 1 mL as directed. tiZANidine 4 mg tablet Take 1 tablet by mouth every 6 hours as needed (for muscle spasm). FAMILY HISTORY Problem Relation Age of Onset - Adopted: Yes - unknown [OTHER] Other adopted Social History Substance Use Topics - Smoking status: Former Smoker Packs/day: 1.00 Years: 20.00 Types: Cigarettes Quit date: 02/21/2010 - Smokeless tobacco: Never Used - Alcohol use Yes Comment: Rarely PHYSICAL EXAM BP 130/84 Pulse 116 Temp 37.2 ?C (99 ?F) (Temporal Artery) Resp 16 Wt 31.8 kg (70 lb) SpO2 97% BMI 14.14 kg/m2 General Appearance: thin, in no acute distress, alert Skin: Skin color, texture, turgor normal for age; Positive Stage 2 pressure ulcer to coccyx, without tunneling or signs of infection. surrounding skin intact, blanchable Head: normocephalic, atraumatic Eyes: conjunctiva pink and moist, no icterus, sclera white, non-injected Back: No pain to palpation, no CVA tenderness Lungs: Lungs clear to auscultation. No wheezing, rhonchi, rales Heart: RRR without murmur, gallop, or rubs. No ectopy Bilateral Lower Extremities: No deformities, edema, clubbing or cyanosis. Good capillary refill. , Positive findings: bruising to left dorsal foot Rectal: positive findings: multiple non-thrombosed external hemorrhoids ADULT PREVNAR-13 due on 10/04/1990 TWO PNEUMOVAX 5 YEARS APART PRIOR TO AGE 65(2) due on 04/28/2014 MAMMOGRAM due on 04/16/2017 PAP YEARLY due on 04/16/2017 TETANUS due on 11/25/2018 DIABETES SCREEN due on 07/14/2020 LIPID SCREEN due on 05/28/2021 INFLUENZA Completed ASSESSMENT/PLAN: 1. Pneumonia due to infectious organism, unspecified laterality, unspecified part of lung - ICD9: 136.9, 484.8, ICD10: J18.9 (primary diagnosis) - Bilateral lower lobe subsequent encounter. - No acute or concerning exam findings. - Encouraged patient to use Incentive Spirometer at home x10/hour while awake - AEROCHAMBER SPACER - ALBUTEROL SULFATE HFA 90 MCG/ACTUATION AEROSOL INHALER - XR CHEST 2V FRONTAL/LAT follow up in 8 weeks - Pneumovax at next visit - Follow up as needed for new or worsening symptoms 2. SOB (shortness of breath) - ICD9: 786.05, ICD10: R06.02 - Plan as above - AEROCHAMBER SPACER - ALBUTEROL SULFATE HFA 90 MCG/ACTUATION AEROSOL INHALER - XR CHEST 2V FRONTAL/LAT 3. Decubitus ulcer of sacral region, stage 2 - ICD9: 707.03, 707.22, ICD10: L89.152 - No concerning exam findings - Recommend leaving area open to air - Pressure relief cushion to be used while up to the chair - Encouraged pressure offloading at minimum every 2 hours, encouraged ambulation - Follow up as needed for new or worsening symptoms, sooner if patient develops increased pain, drainage or fever 4. Hemorrhoids, unspecified hemorrhoid type - ICD9: 455.6, ICD10: K64.9 - No acute or concerning exam findings, non-thrombosed hemorrhoids - Tucks pads or Preparation H for comfort - Offered General Surgery consult for possible removal. Patient will consider options and follow up. Prescription instructions reviewed with patient as applicable. Potential red flag symptoms discussed with the patient. Reviewed appropriate action plan to take if red flag symptoms occur. Patient agreeable to treatment plan. DAYANNA Rios CNP 07/21/2017 11:50 AM Signed Follow up chest xray expected around September 01. Do no need an appointment. As long as results show resolution will proceed with pneumonia vaccine. Referring Provider: SELF [[id number]] Allergies As of Date: 07/21/2017 Noted Allergy Reaction SULFA (SULFONAMIDE ANTIBIOTICS) 04/07/2001 4 - Hives Comments: hives NSAIDS (NON-STEROIDAL ANTI-INFLAM*04/23/2016 5 - Intolerance Date Reviewed: 07/21/2017 Reviewed by: Vickie Lundberg Ma - Fully Assessed Reason for Visit: Recheck [92] Cmt: Hosp follow up, pneumonia, Flu and septsis Primary Visit Diagnosis:Pneumonia due to infectious organism, unspecified laterality, unspecified part of lung [J18.9] Other Visit Diagnoses:SOB (shortness of breath) [R06.02] Decubitus ulcer of sacral region, stage 2 [L89.152] Hemorrhoids, unspecified hemorrhoid type [K64.9] Order(s):AEROCHAMBER SPACER [[id number]] Order #: [id number] albuterol HFA (PROAIR HFA) 90 mcg/actuation inhaler2 Puffs every 4 hours as needed for Wheezing/Shortness of Breath. Take as directedDisp: 1 InhalerRfl: 0 XR CHEST 2V FRONTAL/LAT [[id number]] Order #: [id number] FUTURE Prescriptions as of 07/21/2017 Sig: ALBUTEROL SULFATE HFA 90 MCG/* 2 Puffs every 4 hours as need* GUAIFENESIN ER 600 MG TABLET,* Take 1 tablet by mouth twice * COMPOUNDED PRESCRIPTION Outpatient physical therapy AMLODIPINE 2.5 MG TABLET Take 1 tablet by mouth once d* ESOMEPRAZOLE MAGNESIUM 40 MG * Take 1 capsule by mouth DAILY* DRONABINOL 2.5 MG CAPSULE Take 1 capsule by mouth four * COLESTIPOL 1 GRAM TABLET Take 1 tablet by mouth twice * PREDNISONE 5 MG TABLET Take 1 tablet by mouth once d* CHOLECALCIFEROL (VITAMIN D3) * Take 1 capsule by mouth once * HNCTZI-EHFEHRWY-OEMGMOA 12,00* Take 1 capsule by mouth three* TACROLIMUS 1 MG CAPSULE Take (2) capsules by mouth ev* CALCIUM CITRATE-ERGOCALCIFERO* Take 2 tablets by mouth twice* THERAPEUTIC MULTIVITAMIN TABL* Take 1 tablet by mouth twice * GABAPENTIN ORAL Take 300 mg by mouth twice da* CYANOCOBALAMIN (VIT B-12) 1,0* Inject 1 mL intramuscularly o* OXYCODONE 5 MG TABLET Take 1 tablet by mouth every * LEVONORGESTREL 20 MCG/24 HR (* 1 Each by INTRAUTERINE route * SYRINGE (DISPOSABLE) 1 ML 1 mL as directed. TIZANIDINE 4 MG TABLET Take 1 tablet by mouth every * Problem List As Of Date 07/21/2017 Noted Resolved Anemia in chronic kidney disease [N18.9, D63.1] INVALID FOR* More... Chronic kidney disease, stage III (moderate) [N*INVALID FOR* More... History of gastric cancer [Z85.028] INVALID FOR*12/30/2016 More... 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 GERD (gastroesophageal reflux disease) [K21.9] INVALID FOR* Weight loss [R63.4] INVALID FOR* More... CRD (chronic renal disease) [N18.9] INVALID FOR* Reflux esophagitis [K21.0] INVALID FOR* GIB (gastrointestinal bleeding) [K92.2] INVALID FOR*12/30/2016 More... Acute blood loss anemia [D62] INVALID FOR* More... 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 Essential hypertension [I10] INVALID FOR* More... Peptic ulcer disease with hemorrhage [K27.4] INVALID FOR*12/30/2016 Btggc-ny-yzextlb kidney injury (HCC) [N17.9, N1*INVALID FOR*12/30/2016 More... Nausea AND vomiting [R11.2] INVALID FOR*12/30/2016 More... GI bleed [K92.2] INVALID FOR* Priority: C More... History of gastric cancer [Z85.028] INVALID FOR* More... Pancytopenia (HCC) [D61.818] INVALID FOR* Priority: B Central line infection [T80.219A] INVALID FOR*02/27/2017 Priority: A More... Severe protein-calorie malnutrition (HCC) [E43] INVALID FOR* More... Hx of transfusion [Z92.89] INVALID FOR* More... Pneumonia [J18.9] INVALID FOR*07/14/2017 Priority: A More... Pancreatic insufficiency [K86.89] INVALID FOR* More... JENNIFFER (acute kidney injury) (HCC) [N17.9] INVALID FOR*07/14/2017 More... Macrocytic anemia [D53.9] INVALID FOR* More... Thrombocytopenia (HCC) [D69.6] INVALID FOR* More... Respiratory failure with hypoxia (HCC) [J96.91] INVALID FOR*07/14/2017 More... Bacteremia [R78.81] INVALID FOR*07/14/2017 More... Other instructions from your clinician: Follow up chest xray expected around September 01. Do no need an appointment. As long as results show resolution will proceed with pneumonia vaccine. Prescriptions ordered this encounter Disp Refills Start End ALBUTEROL SULFATE HFA 90 MCG/ACTUATI* 1 In* 0 07/21/2017 Route: OTHER Si Puffs every 4 hours as needed for Wheezing/Shortness of Breath. Take as directed Medications Discontinued During This Encounter albuterol HFA (PROAIR HFA) 90 mcg/ac* 1 In* 0 07/14/2017 07/21/2017 Class: Print RX Route: OTHER Si Puffs every 4 hours as needed for Wheezing/Shortness of Breath. Take as directed Disc: Reason for discontinue is not on file. Encounter Status:Closed by DUY DUMAS CNP on 07/21/17 NURSING PROG Observed: 07/14/2017 Status: COMPLETED Source: [place] 3:07 PM [facility] REPOSITORY HNO ID: [id number] Author: Vicky (Rn) DICK Araya Service: (none) Author Type: Registered Nurse Type: Nursing Progress Note Filed: 07/14/2017 4:19 PM Note Text: Nursing Progress Note Patient Name: Val Valverde Patient Location: [place] [id number] Patient left unit by wheelchair with father by her side, pt and her father both verbalized an understanding an D/c instructions, patient left with all belongings its hand. This note was completed by: DICK Adams Observed: 07/14/2017 Status: COMPLETED Source: [place] 1:56 [facility] REPOSITORY HNO ID: [id number] Author: Chuy Wharton Service: General Internal Medicine Author Type: Resident Type: Discharge Summaries Filed: 07/16/2017 3:09 PM Note Text: Attestation signed by Shanel Mcgarry at 07/16/2017 6:01 PM ATTENDING PHYSICIAN: Patient seen and evaluated today Flores elements of history and physical examination of the patient were confirmed. The assessment and plan were formulated and discussed with the team on Rounds. I reviewed the resident's note, examined the patient and agree with the documented findings and plan of care. Discussed discharge planning with the resident Shanel Mcgarry MD [place]- [phone] ?? DISCHARGE SUMMARY PATIENT NAME: Val Valverde ADMISSION DATE: 07/04/2017 DISCHARGE DATE: 07/14/2017 ATTENDING PHYSICIAN: Shanel Mcgarry REASON FOR HOSPITALIZATION: Respiratory failure DIAGNOSIS: Active Problems: Kidney transplant recipient Severe protein-calorie malnutrition (HCC) Pancreatic insufficiency Resolved Problems: Pneumonia JENNIFFER (acute kidney injury) (HCC) Respiratory failure with hypoxia (HCC) Bacteremia OPERATIONS DURING HOSPITALIZATION: None PROCEDURES DURING HOSPITALIZATION: Intubation HOSPITAL COURSE: 46 year old woman who presents with PMHx gastric cancer s/p near-total gastrectomy, chemo, and radiation in 2000; radiation-induced CKD s/p left kidney transplant 2009 on chronic immunosuppression; HTN; GERD; malnutrition; chronic gastric ulcers; and recent ulcerative GI bleed; who presents from OSH to [facility] with complains of fever, myalgias, shortness of breath transferred to the MICU and intubated with hypoxic respiratory failure. Extubated 07/07. ? Pneumonia Extubated 07/07 Influenze B positive, completed course of tamiflu Strep pneumo PNA - Finished 7 days of Ceftriaxone in hospital. Discharge on Amoxicillin to complete 10 days course ?? Kidney transplant recipient Home meds: Prednisone and Prograf. Transplant US showed patent renal transplant vasculature, no hydronephrosis CMV DNA levels negative ?? Thrombocytopenia - At baseline ?? HTN -continue home norvasc ? Severe protein-calorie malnutrition (HCC) - dental soft diet ?? ?Pancreatic insufficiency Started on Creon in clinic after evidence of fat malabsorption She has macrocytic anemia ? ?JENNIFFER (acute kidney injury) (HCC) - Resolved - Resolved with IV hydration Deep tissue injury to coccyx - Present on admission Plan - Wound care consulted Recommended offloading q2hrs, skin care and Versacare bed No need for plastic surgery consult. LABS AND PROCEDURES PENDING AT DISCHARGE: No pending results. CONSULTING TEAMS DURING HOSPITALIZATION: None PATIENT CONDITION AT DISCHARGE: Stable DISCHARGE DISPOSITION: Home/Self Care Physical examination on day of discharge General: AO X 3. No acute distress Lungs - Fine crepitations at lung bases Abdomen - Soft, non tender Heart - RRR, no murmurs Extremities - No edema INFORMATION PROVIDED TO PATIENT: (To pull info documented from the DC Instruct Orderset Complete O/S First): Discharge instructions DISCHARGE MEDICATION: Current Discharge Medication List START taking these medications guaiFENesin (MUCINEX) 600 mg Take 600 mg by mouth twice daily. Qty: 14 tablet Refills: 0 Amoxicillin 500 mg Take 500 mg by mouth every 12 hours. Qty: 6 tablet Refills: 0 albuterol HFA (PROVENTIL HFA, VENTOLIN HFA) 2 Puffs 2 Puffs every 4 hours as needed for Wheezing/Shortness of Breath. Take as directed Qty: 1 Inhaler Refills: 0 COMPOUNDED PRESCRIPTION Outpatient physical therapy Qty: 1 Each Refills: 0 Associated Diagnoses:Kidney transplant recipient; Pancreatic insufficiency; Severe protein-calorie malnutrition (HCC) CONTINUE these medications which have NOT CHANGED amLODIPine (NORVASC) 2.5 mg Take 2.5 mg by mouth once daily. Qty: 90 tablet Refills: 3 Associated Diagnoses:Essential hypertension esomeprazole (NexIUM) 40 mg Take 40 mg by mouth DAILY (6 AM). Qty: 30 capsule Refills: 3 Associated Diagnoses:Gastroesophageal reflux disease without esophagitis dronabinol (MARINOL) 2.5 mg Take 2.5 mg by mouth four times daily. Qty: 120 capsule Refills: 0 Associated Diagnoses:Severe protein-calorie malnutrition (HCC) colestipol (COLESTID) 1 g Take 1 g by mouth twice daily. Qty: 60 tablet Refills: 0 predniSONE (DELTASONE) 5 mg Take 5 mg by mouth once daily. Qty: 90 tablet Refills: 3 Associated Diagnoses:Kidney replaced by transplant cholecalciferol (Vitamin D3) (VITAMIN D3) 50,000 Units Take 50,000 Units by mouth once each week. (ONE CAPSULE) FOR VITAMIN D DEFICIENCY Qty: 12 capsule Refills: 1 Associated Diagnoses:Vitamin D deficiency ozgqbi-wccqwepm-gyvzucw (CREON 12) 1 capsule Take 1 capsule by mouth three times daily with meals. Qty: 90 capsule Refills: 11 tacrolimus (PROGRAF) 1 mg capsule Take (2) capsules by mouth every morning and (1) capsule every evening - ICD 10 = Z94.0 kidney transplant 02/21/2010 Qty: 270 capsule Refills: 3 Comments: Diagnosis Code: Z94.0 Kidney Transplant Associated Diagnoses:Kidney replaced by transplant Calcium Citrate-Vitamin D2 2 tablets Take 2 tablets by mouth twice daily. Refills: 0 Associated Diagnoses:Esophageal candidiasis (HCC) therapeutic multivitamin (THERA VITAMIN) 1 tablet Take 1 tablet by mouth twice daily. Qty: 60 tablet Refills: 0 GABAPENTIN ORAL 300 mg Take 300 mg by mouth twice daily. cyanocobalamin 1,000 mcg Inject 1,000 mcg intramuscularly once every month. Qty: 1 Vial Refills: 3 Associated Diagnoses:Unspecified vitamin B deficiency oxyCODONE IR (ROXICODONE) 5 mg Take 5 mg by mouth every 8 hours as needed. levonorgestrel (MIRENA) 1 Each 1 Each by INTRAUTERINE route one time only. Qty: 1 Each Refills: 0 Syringe (Disposable) 1 mL 1 mL as directed. Qty: 20 Syringe Refills: 0 tiZANidine (ZANAFLEX) 4 mg Take 4 mg by mouth every 6 hours as needed (for muscle spasm). Refills: 0 STOP taking these medications multivitamin 1 tablet Comments: Reason for Stopping: sodium bicarbonate 650 mg Comments: Reason for Stopping: FUTURE APPOINTMENTS: Follow Up with PCP: WIL TO MD Future Appointments Date Time Provider Department Center 07/21/2017 11:00 AM [id number], JAMIE ([facility]) INTMWS [facility] 07/22/2017 10:30 AM [id number] ANDREY CENTENO GAPRA3 SUSHIL AANDM 07/25/2017 9:30 AM [id number], AMY (ACCOUNTING MACHINE MECHANIC) WOOB [facility] EKSHA 07/25/2017 10:45 AM [id number] [facility] 07/28/2017 10:30 AM [id number] YAHIR [facility] WSTR HEMAWS [facility] 08/11/2017 10:30 AM [id number] [facility] HEMA[facility] 08/25/2017 10:45 AM [id number] [facility] H[facility] 09/08/2017 10:45 AM [id number] [facility] H[facility] 10/22/2017 4:20 PM [id number], [facility] TIME OF CARE (Use first blank if not applicable): TIME OF CARE: Discharge Management: I personally spent greater than 30 minutes involved in the discharge management of this patient. SIGNATURE: Chuy Wharton MD PATIENT NAME: Val Valverde DATE: July 14, 2017 TIME: 2:04 PM PAGER/CONTACT #: [phone] PLAN OF CARE Observed: 07/14/2017 Status: COMPLETED Source: [place] 1:08 PM [facility] [place] REPOSITORY HNO ID: [id number] Author: Augustina Wagner (Soil Specialist) Service: (none) Author Type: Micro Computer Specialist Type: Plan of Care Filed: 07/14/2017 1:09 PM Note Text: ECONOMIC ADVISER BEDSIDE DELIVERY SURVEY 1. Patient to use [facility] Bedside Delivery - NO staff communication 2. If fax, patient would like us to fax prescriptions to Pharmacy of choice a. Pharmacy: b. Location: c. Phone: 3. Insurance card on file - NO 4. Credit card for payment - NO Are you interested in bedside delivery of your medications? No CASE MANAGEM Observed: 07/14/2017 Status: COMPLETED Source: [place] 8:18 AM [facility] REPOSITORY HNO ID: [id number] Author: Martinez (Rn) DICK Masterson Service: Care Management Author Type: Registered Nurse Type: Care Mgt Progress Note Filed: 07/14/2017 8:18 AM Note Text: CARE MANAGEMENT PROGRESS NOTE SERVICE DATE: 07/14/2017 SERVICE TIME: 15 LOS: 10 days Needs Prior to Discharge: Discharge Prescriptions;None hand collator for outpatient PT,can be given printed script for this at time of discharge. OT skilled home. No other needs. SIGNATURE: Martinez Masterson RN PATIENT NAME: Val Valverde DATE: July 14, 2017 TIME: 8:18 AM PAGER/CONTACT #: [phone] BASIC METABOLIC PANL Collected: 07/14/2017 Status: F Source: [place] 3:39 AM [facility] REPOSITORY TYPE CODE TESTS RESULT OUT OF REFERENCE UNITS RANGE LAB GLU 74-99 mg/dL Low Glucose 72 Result Comment: The [place] Diabetes Association (ADA) provides guidance for cutoff values for fasting glucose and random glucose. The ADA defines fasting as no caloric intake for at least 8 hours. Fas ting plasma glucose results between 100 to 125 mg/dL indicate increased risk for diabetes (prediabetes). Fasting plasma glucose results greater than or equal to 126 mg/dL meet the criteria for diagnosis of diabetes. In the absence of unequivocal hyperglycemia, results should be confirmed by repeat testing. In a patient with classic symptoms of hyperglycemia or hyperglycemic crisis, random plasma glucose results greater than or equal to 200 mg/dL meet the criteria for diagnosis of diabetes. Reference: Standards of Medical Care in Diabetes 2016, [place] [employer] Association. Diabetes Care. 2016.39(Suppl 1). LAB BUN 7-21 mg/dL BUN High 36 LAB CRET 0.58-0.96 mg/dL Creatinine High 3.39 LAB NA 136-144 mmol/L Sodium 138 LAB K 3.7-5.1 mmol/L Potassium 3.8 LAB CL 97-105 mmol/L Chloride 103 LAB CO2 22-30 mmol/L CO2 24 LAB AGAP 9-18 mmol/L Anion Gap 11 LAB CA 8.5-10.2 mg/dL Low Calcium, Total 8.1 LAB GFRAA eGFR- Amer. 18 LAB GFRNAA . eGFR-All Other Races 15 Result Comment: eGFR (Estimated GFR) Units of measure: mL/min/1.73 meters squared eGFR is derived from the reexpressed MDRD Study equation using the following parameters: serum creatinine, age, gender and race. The creatinine assay has been calibrated to be traceable to IDMS. An eGFR <60 mL/min/1.73m2 for >3 months is consistent with chronic kidney disease. Refer to KDOQI guidelines for clinical interpretation. In patients with unstable renal function, e.g. those with acute kidney injury, the eGFR may not accurately reflect actual GFR. Performed By: #### BMP #### [facility] [address] [id number] TACROLIMUS / FK506 Collected: 07/14/2017 Status: F Source: [place] 3:39 AM [facility] REPOSITORY TYPE CODE TESTS RESULT OUT OF REFERENCE UNITS RANGE LAB FK506 5.0-20.0 ng/mL Low Tacrolimus / 4.0 FK506 Result Comment: These reference ranges are provided as a general recommendation. Individualized target levels for a given patient will depend on many factors (including the type of organ transplant, ti me since transplantation, concurrent medications, and other clinical factors), and should be assessed by those health care providers experienced in the management of immunosuppression. Reference ranges and high/low indicator flags are provided as general guidelines only. The treating physician must determine appropriate target levels/dosing based on the specific clinical situation. Test performed by chemiluminescent immunoassay using [employer]. Performed By: #### FK506 #### [facility] [address] [place], [place] [address] THERAPY NT Observed: 07/13/2017 Status: COMPLETED Source: [place] 1:32 PM [facility] REPOSITORY HNO ID: [id number] Author: Sanju Ruggiero (Ot/L) Lizzie Service: Occupational Therapy Author Type: Occupational Therapist Type: Therapy (PT/OT/Speech/Resp) Filed: 07/13/2017 1:48 PM Note Text: Occupational Therapy Evaluation SERVICE DATE: 07/13/2017 SERVICE TIME: 953 to 1032 ROOM: [place] [address] Recommended Discharge Disposition: Home Anticipated Discharge Needs: Physical Assist at Home Physical Assist at Home for: Cleaning;Laundry;Meals OT Recommendations to Nursing: To Bathroom for ADL?s /and or Toileting with Gait Belt;OOB for meals with Gait Belt OT 6 Clicks Score: 23 Precautions/Activity Restrictions: Fall Risk Isolation Type: Droplet ASSESSMENT: Tolerated Full Session Pt tolerated session very well, highly motivated to participate. Pt completed functional mobility with IV pole and supervision- community distance with 1 seated rest break. Pt displaying decreased activity tolerance, weakness, and impaired mobility, decreased participation in ADLs. Pt has no skilled OT needs at D/C. Occupational Therapy Problem List: Education Deficit;Impaired Self Care;Decreased Activity Tolerance;Functional Mobility Impairment Patient /Caregiver Goals: Care For Self Goals for Plan of Care: Lower Body Bathing with: Modified Independent Lower Body Dressing with: Modified Independent Toilet Hygiene with: Modified Independent Chair Transfer with: Modified Independent Toilet Transfer with: Modified Independent Shower Transfer with: Modified Independent Demonstrate Positive Coping Strategies with: Modified Independent Rehab Potential: Excellent PLAN: Treatment Frequency (times per week): Discontinue Therapy Services Reasons Therapy Services Discontinued: No skilled needs Current admission Plan of Care developed with: Patient TREATMENT INTERVENTIONS: Therapy Diagnosis: Reduced mobility-other;Decreased activities of daily living (ADL) Interventions Provided: Evaluation;Therapeutic Activity (20071) $ Evaluation-Low (63395) Billed Units: 1 unit Therapeutic Activity (36154) Treatment Minutes: 23 2 units Skilled Intervention(s): Instructed patient in log roll technique requiring supervision Instruction in scooting EOB with min verbal cues for hand placement requiring supervision Instructed patient in supine to sit pushing with upper extremities to sit up requiring supervision Instruction in sit to stand technique with proper hand placement and body positioning at edge of bed/chair requiring supervision Instruction in stand to sit technique with lower extremities touching chair/bed and reaching back for surface requiring supervision Instruction in functional mobility with IV pole, requiring supervision, community distance- 1 seated rest break required, increased time required for slow pacing. Instruction in bed to chair transfer requiring supervision with min verbal cues for hand placement Education on POC, D/C plan, role of OT, safety in house, chair vs bed, mobility in house 3-5x daily, and role of therapy in hospital Instructed in energy conservation techniques for home including general ECT for activity pacing and rest breaks, and specific education on ADLs/home management techniques. Facilitation of environmental modifications including;upright in chair, opening blinds, turning on lights, television moved in view, and increase of access to bedside table, in order to promote increased awareness and engagement within environment to optimize participation with tasks and ADLs throughout daily activities. Total Timed Code Treatment Minutes: 23 Total Treatment Time (minutes): 39 FUNCTIONAL G CODE: OT 6 Clicks Score: 23 (07/13/17953) Self Care Current Status (G8987): CI (07/13/17953) Self Care Goal Status (G8988): CH (07/13/17953) Based on clinical assessment and the score on the 6 Clicks Functional Assessment Tool, the G code and corresponding severity modifiers are documented above. SUBJECTIVE: Current Hospital Course: Chart reviewed; 46 year old woman who presents with PMHx gastric cancer s/p near-total gastrectomy, chemo, and radiation in 2000; radiation-induced CKD s/p left kidney transplant 2009 on chronic immunosuppression; HTN; GERD; malnutrition; chronic gastric ulcers; and recent ulcerative GI bleed; who presents from OSH to [facility] with complains of fever, myalgias, shortness of breath transferred to the MICU and intubated with hypoxic respiratory failure. Extubated 07/07. Patient Report: Thank you so much for coming to see me, I should be moving more Home Environment Patient Lives With: Family Assistance Available: 24 Hour Entry To Home: No Stairs Prior Functional Level: Within Functional Limits OBJECTIVE: Responsiveness: Alert;Awake Follows Commands: 3-step Commands Mini Cog Score: 5 (07/11/17 1110) CURRENT FUNCTIONAL STATUS: Current Activities of Daily Living Assist Level Feeding Independent Grooming Independent Bathing Upper Body Independent Bathing Lower Body Supervision Dressing Upper Body Independent Dressing Lower Body Contact Guard Assistance Toileting Supervision Instrumental Activities of Daily Living Assist Level Meal/Beverage Prep Light Cleaning Laundry Medication Management with Strategies Functional Mobility Assist Level Rolling Supervision Supine to Sit Supervision Sit to Supine Supervision Scooting Supervision Sit to Stand Supervision Stand to Sit Supervision Bed to Chair Supervision Toilet/Commode Functional Mobility Supervision IV Pole Please see discipline specific clinical documentation flowsheet for complete details for this therapy evaluation/treatment. SIGNATURE: SANJU COULTER OT/Bahman PATIENT NAME: Val Valverde DATE: July 13, 2017 TIME: 1:32 PM PAGER: [phone] PROGRESS Observed: 07/13/2017 Status: COMPLETED Source: [place] 1:12 PM [facility] REPOSITORY HNO ID: [id number] Author: Opal Acevedo Service: General Internal Medicine Author Type: Physician Type: Progress Notes Filed: 07/13/2017 7:21 PM Note Text: GENERAL MEDICINE PROGRESS NOTE Weekdays 7 AM to 5 PM / Weekends 7 AM to 3 PM: Page [phone] (Resident) Weekdays 5 PM to 7 AM / Weekends 3 PM to 7 AM: Page [phone] (Chandan Resident Underwriter) SERVICE DATE: 07/13/2017 SERVICE TIME: 1:12 PM Interval History: INTERVAL HISTORY:Patient interviewed and examined - No acute events overnight - Afebrile, HD stable, In no acute distress. - continues to have SOB on exertion - UOP is 2850 cc - Labs: Cr downtrending, hgb 8.3 (<-06.7), tacrolimus level 3.1 Temp Av.9 ?C (98.5 ?F) Min: 36.7 ?C (98.1 ?F) Max: 37.2 ?C (99 ?F) Pulse Av Min: 91 Max: 112 Cuff BP Min: 120/80 Max: 149/89 Pain Score: 3/10 Plan for the day: - encourage PO hydration - PT/OT Physical Examination: BP 120/80 Pulse 109 Temp 36.7 ?C (98.1 ?F) (Oral) Resp 18 Ht 149.9 cm (4' 11) Wt 30.9 kg (68 lb 3 oz) SpO2 96% BMI 13.77 kg/m2 Intake/Output Summary (Last 24 hours) at 07/13/17 1312 Last data filed at 07/13/17 1000 Gross per 24 hour Intake 1350 ml Output 2100 ml Net -750 ml General: Cachectic. No acute distress. Alert and awake. Lungs: Normal respiratory effort. Decreased breath sounds at bilateral bases Heart: RRR Neck: Supple, no lymphadenopathy Abdomen: Soft abdomen, nontender, BS + Extremities: No edema, clubbing, or cyanosis Neuro: no focal deficits Medications: Current hospital medications: guaiFENesin 600 mg ER tab(s) (MUCINEX) 600 mg ORAL q 12 H cefTRIAXone iv piggyback 1 g in dextrose (iso-osmotic) 50 mL (ROCEPHIN) 1 g INTRAVENOUS q 24 H melatonin 3 mg tab(s) 3 mg ORAL DAILY (7 PM) tacrolimus 2 mg cap(s) (PROGRAF) 2 mg ORAL DAILY (6 AM) tacrolimus 1 mg cap(s) (PROGRAF) 1 mg ORAL DAILY AT 6 PM rdmtol-dcmycovl-agzgxyb 1 capsule cap(s) (CREON 12) 1 capsule ORAL TID w MEALS dronabinol 2.5 mg cap(s) (MARINOL) 2.5 mg ORAL QID oxyCODONE IR 5 mg tab(s) (ROXICODONE) 5 mg ORAL q [address] 40 mg tab(s) (PROTONIX) 40 mg ORAL BID AC (0600/1600) vitamin B complex with C-FA-CU-ZN renal vitamins 1 tablet (DIATX ZN) 1 tablet OTHER DAILY ipratropium-albuterol 3 mL nebulizer solution (DUONEB) 3 mL INHALATION q 4 H while awake 0.9% NaCl 3-5 mL 3-5 mL INTRAVENOUS q 12 H dextrose 50% in water 25-50 mL syringe 12.5-25 g INTRAVENOUS PRN dextrose 40 % 15 g (INSTA-GLUCOSE) 15 g ORAL PRN glucagon 1 mg injection (GLUCAGEN) 1 mg SUBCUTANEOUS PRN acetaminophen 650 mg tab(s) (TYLENOL) 650 mg ORAL/FEEDING TUBE q 6 H PRN acetaminophen 650 mg suppository (TYLENOL) 650 mg RECTAL q 6 H PRN amLODIPine 2.5 mg tab(s) (NORVASC) 2.5 mg ORAL/FEEDING TUBE DAILY predniSONE 5 mg tab(s) (DELTASONE) 5 mg ORAL/FEEDING TUBE DAILY Laboratory Values: CBC: Recent Labs 07/13/17 0505 07/12/17 0447 07/11/17 0925 07/10/17 0425 07/08/17 2232 07/08/17 0646 07/07/17 2343 07/06/17 2258 WBC 8.08 9.50 10.87 9.39 10.40 15.75* 15.86* 12.72* HB 8.3* 6.7* 7.0* 7.2* 7.7* 8.4* 8.4* 8.0* HCT 24.7* 20.5* 21.4* 21.5* 22.4* 24.5* 24.9* 23.1* PLT 21* 18* 16* 15* 16* 23* 21* 23* MCV 102.1* 106.8* 106.5* 102.9* 104.2* 103.8* 104.2* 103.1* RDWCV 20.3* 18.4* 18.3* 18.6* 19.7* 20.0* 19.9* 19.9* NEUTP -- -- -- 89.4 93.9 95.0 96.5 96.5 ABSNEUT -- -- -- 8.40* 9.77* 14.96* 15.30* 12.27* LYMPHP -- -- -- 4.6 2.6 1.0 2.6 0.9 MONOP -- -- -- 5.0 2.6 2.0 0.9 0.9 EODINP -- -- -- 0.9 0.0 1.0 0.0 0.0 COAG: No results for input(s): APTT, INR in the last 168 hours. BMP: Recent Labs 07/13/17 0505 07/12/1744607/11/17 0907/10/1742407/08/17223107/07/17234207/06/17 2258 GLUC 69* 68* 106* 85 93 87 178* NA 137 141 141 140 141 140 136 K 4.0 3.8 3.6* 3.7 3.6* 3.9 3.8 CHLOR 101 103 101 105 105 103 102 CO2 24 26 26 24 22 22 18* ANION 12 12 14 11 14 15 16 BUN 38* 42* 43* 51* 53* 59* 59* CREAT 2.99* 3.66* 3.22* 3.32* 3.43* 3.88* 4.16* CHEM: Recent Labs 07/13/17 0505 07/12/1744607/11/17 0907/11/17 0339 07/10/1742407/08/17223107/07/17234207/06/17 2258 ALB -- -- -- -- 1.9* 1.6* 1.5* 1.4* TPROT -- -- -- -- 5.2* 4.8* 4.9* 4.4* CA 7.9* 8.2* 8.0* -- 8.2* 8.3* 7.7* 7.4* MG -- -- -- 1.8 1.8 2.1 2.2 2.3 HEPATIC: Recent Labs 07/10/17 0425 07/08/17 2232 07/07/17 2343 07/06/17 2258 ALKPHOS 114 112 114 86 ALT 24 24 26 15 AST 17 22 36* 30 TBILI 0.4 0.4 0.6 0.3 URINALYSIS: Recent Labs 07/07/17 1507 SPGR 1.005 UGLUC Negative UBILI Negative UKET Negative UHB 1+* UPROT Negative UWBC 0-5 CARDIAC: No results for input(s): CKTEST, CKMB, CKMBP, TROPT, PBNP in the last 168 hours. Diagnostic tests and consults reviewed for today's visit: - Most recent labs - Most recent imaging Assessment AND Plan: 46 year old woman who presents with PMHx gastric cancer s/p near-total gastrectomy, chemo, and radiation in 2000; radiation-induced CKD s/p left kidney transplant 2009 on chronic immunosuppression; HTN; GERD; malnutrition; chronic gastric ulcers; and recent ulcerative GI bleed; who presents from OSH to [facility] with complains of fever, myalgias, shortness of breath transferred to the MICU and intubated with hypoxic respiratory failure. Extubated 07/07. ?? Influenza B Pneumonia ?Productive cough, SOB, fevers, tachycardia, worsening infiltrates in CXR compared to OSH imaging Was on ceftriaxone and azithromycin at OSH Lactate normal Extubated 07/07 Concerns for viral pneumonia with supper imposed strep. RVP negative Influenze B positive, completed course of tamiflu Legionella Ag neg ?? Plan: - Currently on ceftriaxone until 07/17 (14 days total) - O2 to sat > 94% - Duonebs ?? Kidney transplant recipient? S/p living unrelated donor kidney transplant (from adoptive mother) 02/21/10 now with CKD CMV -/+. Home meds: Cellcept, Prednisone and Prograf. Transplant US showed patent renal transplant vasculature, no hydronephrosis CMV DNA levels negative ?? Plan: - Holding MMF for now - Tacro resumed - Prednisone 5 mg - Follow Tk level ?? Thrombocytopenia Platelets 23 on admission, now 16 PF4 negative ?? HTN -continue home norvasc ?? Severe protein-calorie malnutrition (HCC)? - dental soft diet ?? ?Pancreatic insufficiency? Started on Creon in clinic after evidence of fat malabsorption She has macrocytic anemia ?? Plan: - Continue creon with meals, Viokace - Nutrition on board ?? ?JENNIFFER (acute kidney injury) (HCC)? JENNIFFER on CKD SCR basline ~ 2.4 In the setting of sepsis, decreased PO intake Improving urine output? ?? Plan: - appreciate transplant nephrology recs - Renally dose meds - Strict I/O ?? Bacteremia - Positive strep pneumo blood cultures at OSH on 07/03; susceptible to ceftiaxone ?? Plan: - continue antibiotics as above; total days 14 due to bacteremia in setting of immunosuppression - Follow blood cultures, no growth x 5?days ?? ?Influenza B Completed 5 day course of tamiflu ?? This note is not final until staffed by the attending physician and authenticated by responsible provider. SIGNATURE: Erica Spaulding MD PGY-1 PATIENT NAME: Val Valverde DATE: July 13, 2017 TIME: 1:12 PM Pager: [phone] [facility] STAFF PHYSICIAN NOTE OF PERSONAL INVOLVEMENT IN CARE I have reviewed the Progress Note obtained and documented by Dr. Spaulding and I personally participated in the flores components. I have discussed the case and management of the patient's care. My additions in bold above. The following comments revise or confirm relevant flores components of her note. Agree with assessment and plan as outlined above. Dr. Mcgarry assumes care 07/14/17. STAFF SIGNATURE: Opal Acevedo DO, MA, [facility] Staff, Department of Hospital Medicine Pager Number : [phone] 07/13/2017 7:21 PM CBC Collected: 07/13/2017 Status: F Source: [place] 5:05 AM [facility] REPOSITORY TYPE CODE TESTS RESULT OUT OF REFERENCE UNITS RANGE LAB WBC 3.70-11.00 k/uL WBC 8.08 LAB RBC 3.90-5.20 m/uL Low RBC 2.42 LAB HGB 11.5-15.5 g/dL Low Hemoglobin 8.3 LAB HCT 36.0-46.0 % Low Hematocrit 24.7 LAB MCV 80.0-100.0 fL MCV High 102.1 LAB MCH 26.0-34.0 pG MCH High 34.3 LAB MCHC 30.5-36.0 g/dL MCHC 33.6 LAB RDWCV 11.5-15.0 % RDW-CV High 20.3 LAB PLTCT 150-400 k/uL Low Platelet Count 21 Result Comment: Result checked and verified No clot detected. LAB MPV 9.0-12.7 fL MPV <<DO NOT REPORT>> LAB ABSNUC <0.01 k/uL <0.01 Absolute nRBC Performed By: #### CBC, BMP #### [facility] [address] [place], [place] [address] BASIC METABOLIC PANL Collected: 07/13/2017 Status: F Source: [place] 5:05 AM [facility] REPOSITORY TYPE CODE TESTS RESULT OUT OF REFERENCE UNITS RANGE LAB GLU 74-99 mg/dL Low Glucose 69 Result Comment: The [place] Diabetes Association (ADA) provides guidance for cutoff values for fasting glucose and random glucose. The ADA defines fasting as no caloric intake for at least 8 hours. Fas ting plasma glucose results between 100 to 125 mg/dL indicate increased risk for diabetes (prediabetes). Fasting plasma glucose results greater than or equal to 126 mg/dL meet the criteria for diagnosis of diabetes. In the absence of unequivocal hyperglycemia, results should be confirmed by repeat testing. In a patient with classic symptoms of hyperglycemia or hyperglycemic crisis, random plasma glucose results greater than or equal to 200 mg/dL meet the criteria for diagnosis of diabetes. Reference: Standards of Medical Care in Diabetes 2016, [place] [employer]. Diabetes Care. 2016.39(Suppl 1). LAB BUN 7-21 mg/dL BUN High 38 LAB CRET 0.58-0.96 mg/dL Creatinine High 2.99 LAB NA 136-144 mmol/L Sodium 137 LAB K 3.7-5.1 mmol/L Potassium 4.0 LAB CL 97-105 mmol/L Chloride 101 LAB CO2 22-30 mmol/L CO2 24 LAB AGAP 9-18 mmol/L Anion Gap 12 LAB CA 8.5-10.2 mg/dL Low Calcium, Total 7.9 LAB GFRAA eGFR- Amer. 21 LAB GFRNAA . eGFR-All Other Races 17 Result Comment: eGFR (Estimated GFR) Units of measure: mL/min/1.73 meters squared eGFR is derived from the reexpressed MDRD Study equation using the following parameters: serum creatinine, age, gender and race. The creatinine assay has been calibrated to be traceable to IDMS. An eGFR <60 mL/min/1.73m2 for >3 months is consistent with chronic kidney disease. Refer to KDOQI guidelines for clinical interpretation. In patients with unstable renal function, e.g. those with acute kidney injury, the eGFR may not accurately reflect actual GFR. Performed By: #### CBC, BMP #### [facility] [address] [place], [place] [address] TACROLIMUS / FK506 Collected: 07/13/2017 Status: F Source: [place] 5:05 AM [facility] REPOSITORY TYPE CODE TESTS RESULT OUT OF REFERENCE UNITS RANGE LAB FK506 5.0-20.0 ng/mL Low Tacrolimus / 3.1 FK506 Result Comment: These reference ranges are provided as a general recommendation. Individualized target levels for a given patient will depend on many factors (including the type of organ transplant, ti me since transplantation, concurrent medications, and other clinical factors), and should be assessed by those health care providers experienced in the management of immunosuppression. Reference ranges and high/low indicator flags are provided as general guidelines only. The treating physician must determine appropriate target levels/dosing based on the specific clinical situation. Test performed by chemiluminescent immunoassay using [employer] Staff Member. Performed By: #### FK506 #### [facility] [address] [place], [place] [address] EMERGENCY DEPARTMENT Observed: 07/12/2017 Status: F Source: [place] SUMMARY 3:56 PM [facility] [place] [facility] Medical Records Department [address] [place] [address] Emergency Department Summary 07/12/17 1550 MR#: [id number] Acct: [id number] Name: VAL VALVERDE Rep #: [id number] : 1970 46 From: Osei Wade MD PCP: Wil To MD Status: DIS IN - ER Visit Summary Date of Service: 07/12/17 Chief Complaint: Chest pain and shortness of breath History of Present Illness: The patient is a 46 F who presents with chest pain shortness of breath with onset on Friday. Patient was not able to be specific with regards to whether the onset was sudden intermittent etc. She is very vague and cannot localize the pain nor quantitate or qualitate the pain. She does report weight loss and decrease intake the past 2 days. She has a history of gastric carcinoma with partial gastrectomy 2010. This was complicated by DVT requiring placement of Jose F filter. 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 Past history of GERD, hypertension, renal recipient, gastric carcinoma and depression. She receives her care at the [facility]. Physical Examination: Vital signs remarkable blood pressure 97/73 temperature of 97.7 heart rate of 90 with a respiratory rate of 26 and pulse ox 97%. She appears pale and ashen. She is very thin versus cachectic. HEENT exam is remarkable for pale conjunctival and dry mucosa otherwise normal. Heart is regular without murmur, gallop or rub. Lungs are clear to auscultation with diminished breath sounds. Abdomen is soft nontender with normal bowel sounds. Lower extremity exam reveals no tenderness edema and no asymmetry. She does appear pale. Neuro exam is nonfocal. She has a depressed affect. Test Results: EKG sinus rhythm with no acute ischemic changes. Monitor revealed rare ectopic beat. Chest x-ray reveals bilateral infiltrates. White count is normal with an H AND H 7.9 and 21.7. There are 89 segs no bands 7 lymphs. Glucose is 67 and creatinine is 5.48. Baseline is 3.9 per [facility] records. Lactate elevated 2.9. Troponin is less than 0.02. Emergency Department Course and Treatment: Since patient was hypotensive she received 1 L of normal saline wide open. Since she has not been hospitalized recently she was treated for community acquired bilateral pneumonia with Rocephin and Zithromax. Her workup included chest x-ray, EKG and appropriate blood work to evaluate for cardiac versus respiratory versus other etiology of her chest pain. BMP was obtained since she has history of renal failure and is a kidney recipient to evaluate if there is any endorgan injury. Call was placed to her wound care coordinator who was informed that she would be admitted to the ICU here. She asked for follow-up by hospitalist who was evaluating her. Treatment Plan: For Graciela acquired pneumonia and fluid bolus and continued monitoring in ICU setting. Disposition: Admit to the intensive care unit Impression: 1. Bilateral community acquired pneumonia 2. Severe sepsis 3. Hypotension that is fluid responsive 4. Immune suppressed secondary to renal recipient 5. Acute kidney injury 5. Anemia of chronic illness 7. History of hypertension This note was generated with [employer] dictation software. It may contain incorrect words, spelling, and punctuation that were not noted in review of the chart prior to signing ED Disposition - Plan for ED Patient: Disposition: Acute Care Hospital [facility] Chief Complaint: Shortness of Breath What to do if you have Problems For any increased pain, shortness of breath, bleeding, nausea or vomiting, chest pain, or any unexpected problems, contact your Primary Care Provider. Call [facility] ([phone]) or report to the closest Emergency Room. Call 911 if necessary. 07/12/17 1556 <Electronically signed by Osei Wade MD> Date Osei Wade MD Cosigner Signature (If Indicated): Date CC: Wil To MD TYPE AND SCREEN Collected: 07/12/2017 Status: F Source: [place] 8:21 AM [facility] REPOSITORY TYPE CODE TESTS RESULT OUT OF REFERENCE UNITS RANGE LAB %ABR B ABO/RH(D) POSITIVE LAB % Antibody NEG Screen Performed By: #### TSCR #### [facility] [address], [place] [address] PROGRESS Observed: 07/12/2017 Status: COMPLETED Source: [place] 7:15 AM [facility] REPOSITORY HNO ID: [id number] Author: Opal Acevedo Service: General Internal Medicine Author Type: Physician Type: Progress Notes Filed: 07/12/2017 10:19 PM Note Text: INTERNAL MEDICINE PROGRESS NOTE SERVICE DATE: 07/12/2017 SERVICE TIME: 7:30 AM Subjective INTERVAL HISTORY: - No acute events overnight - Patient is feeling better. Shortness of breath when sitting upright. Cough is better. - Patient has stomach pain but has not used oxycodone. - VSS, afebrile, on 2.5L NC - PT evaluated yesterday ? PLAN FOR TODAY: - Follow AM labs - OOB - Encourage PO intake MEDICATIONS: Current hospital medications: melatonin 3 mg tab(s) 3 mg ORAL DAILY (7 PM) tacrolimus 2 mg cap(s) (PROGRAF) 2 mg ORAL DAILY (6 AM) tacrolimus 1 mg cap(s) (PROGRAF) 1 mg ORAL DAILY AT 6 PM rlnwak-yoefbpxc-dkiglcf 1 capsule cap(s) (CREON 12) 1 capsule ORAL TID w MEALS dronabinol 2.5 mg cap(s) (MARINOL) 2.5 mg ORAL QID oxyCODONE IR 5 mg tab(s) (ROXICODONE) 5 mg ORAL q [address] 40 mg tab(s) (PROTONIX) 40 mg ORAL BID AC (0600/1600) cefTRIAXone 1 g in D5W 50 mL MB+ (ROCEPHIN) 1 g INTRAVENOUS q 24 H vitamin B complex with C-FA-CU-ZN renal vitamins 1 tablet (DIATX ZN) 1 tablet OTHER DAILY ipratropium-albuterol 3 mL nebulizer solution (DUONEB) 3 mL INHALATION q 4 H while awake 0.9% NaCl 3-5 mL 3-5 mL INTRAVENOUS q 12 H dextrose 50% in water 25-50 mL syringe 12.5-25 g INTRAVENOUS PRN dextrose 40 % 15 g (INSTA-GLUCOSE) 15 g ORAL PRN glucagon 1 mg injection (GLUCAGEN) 1 mg SUBCUTANEOUS PRN acetaminophen 650 mg tab(s) (TYLENOL) 650 mg ORAL/FEEDING TUBE q 6 H PRN acetaminophen 650 mg suppository (TYLENOL) 650 mg RECTAL q 6 H PRN amLODIPine 2.5 mg tab(s) (NORVASC) 2.5 mg ORAL/FEEDING TUBE DAILY predniSONE 5 mg tab(s) (DELTASONE) 5 mg ORAL/FEEDING TUBE DAILY HOME MEDICATIONS: amLODIPine (NORVASC) 2.5 mg tablet Take 1 tablet by mouth once daily. esomeprazole (NEXIUM) 40 mg capsule Take 1 capsule by mouth DAILY (6 AM). dronabinol (MARINOL) 2.5 mg capsule Take 1 capsule by mouth four times daily for 30 days. colestipol (COLESTID) 1 gram tablet Take 1 tablet by mouth twice daily. predniSONE (DELTASONE) 5 mg tablet Take 1 tablet by mouth once daily. cholecalciferol, Vitamin D3, (VITAMIN D3) 50,000 unit cap capsule Take 1 capsule by mouth once each week. (ONE CAPSULE) FOR VITAMIN D DEFICIENCY fqtckn-dwxornro-obibmea (CREON) 12,000-38,000 -60,000 unit cpDR Take 1 capsule by mouth three times daily with meals. tacrolimus (PROGRAF) 1 mg capsule Take (2) capsules by mouth every morning and (1) capsule every evening - ICD 10 = Z94.0 kidney transplant 02/21/2010 Calcium Citrate-Vitamin D2 1,500-200 mg-unit tab Take 2 tablets by mouth twice daily. multivitamin tablet Take 1 tablet by mouth once daily. sodium bicarbonate 650 mg tablet Take 1 tablet by mouth once daily. therapeutic multivitamin (THERA VITAMIN) tablet Take 1 tablet by mouth twice daily. LIPASE/PROTEASE/AMYLASE (CREON ORAL) Take 12,000 Units by mouth three times daily. GABAPENTIN ORAL Take 300 mg by mouth twice daily. cyanocobalamin 1,000 mcg/mL soln Inject 1 mL intramuscularly once every month. oxyCODONE immediate release (ROXICODONE) 5 mg immediate release tablet Take 1 tablet by mouth every 8 hours as needed. levonorgestrel (MIRENA) 20 mcg/24 hour (5 years) IUD 1 Each by INTRAUTERINE route one time only for 1 dose. Syringe, Disposable, (B-D SYRINGE SLIP TIP 1CC) 1 mL Syrg 1 mL as directed. tiZANidine 4 mg tablet Take 1 tablet by mouth every 6 hours as needed (for muscle spasm). Objective PHYSICAL EXAM: VITAL SIGNS 07/11/17 1746 07/11/17 2137 07/12/17 0144 07/12/17 0614 BP: 134/76 126/79 125/77 130/75 Pulse: 97 113 103 97 Resp: Temp: 37.1 ?C (98.8 ?F) 37 ?C (98.6 ?F) 36.7 ?C (98.1 ?F) 36.7 ?C (98.1 ?F) TempSrc: Oral Oral Oral Oral SpO2: 98% 99% 96% 96% Weight: 40 kg (88 lb 2.9 oz) Height: Temp (24hrs), Av.9 ?C (98.4 ?F), Min:36.7 ?C (98.1 ?F), Max:37.1 ?C (98.8 ?F) INTAKE/OUTPUT Intake/Output Summary (Last 24 hours) at 07/12/17 0715 Last data filed at 07/12/17 0614 Gross per 24 hour Intake 415 ml Output 1400 ml Net -985 ml BP 130/75 Pulse 97 Temp 36.7 ?C (98.1 ?F) (Oral) Resp 18 Ht 149.9 cm (4' 11) Wt 40 kg (88 lb 2.9 oz) SpO2 96% BMI 17.81 kg/m2 General: No acute distress. Lungs: Normal respiratory effort. Decreased breath sounds at bases bilaterally. No wheezing. Heart: RRR no mrg Neck: Supple no lymphadenopathy Abdomen: Soft abdomen, nontender. BS + Extremities: No edema, clubbing, or cyanosis LAB DATA: CBC: Recent Labs 07/12/17 0447 07/11/17 0925 07/10/17 0425 07/08/17 2232 07/08/17 0646 07/07/17 2343 07/06/17 2258 07/06/17 0105 WBC 9.50 10.87 9.39 10.40 15.75* 15.86* 12.72* 13.02* HB 6.7* 7.0* 7.2* 7.7* 8.4* 8.4* 8.0* 8.5* HCT 20.5* 21.4* 21.5* 22.4* 24.5* 24.9* 23.1* 24.9* PLT 18* 16* 15* 16* 23* 21* 23* 27* MCV 106.8* 106.5* 102.9* 104.2* 103.8* 104.2* 103.1* 105.1* RDWCV 18.4* 18.3* 18.6* 19.7* 20.0* 19.9* 19.9* 21.2* NEUTP -- -- 89.4 93.9 95.0 96.5 96.5 98.2 ABSNEUT -- -- 8.40* 9.77* 14.96* 15.30* 12.27* 12.79* LYMPHP -- -- 4.6 2.6 1.0 2.6 0.9 0.9 MONOP -- -- 5.0 2.6 2.0 0.9 0.9 0.9 EODINP -- -- 0.9 0.0 1.0 0.0 0.0 0.0 COAG: No results for input(s): APTT, INR in the last 168 hours. BMP: Recent Labs 07/12/1744607/11/1792407/10/1742407/08/17223107/07/17234207/06/17225707/06/17 0105 GLUC 68* 106* 85 93 87 178* 78 NA 141 141 140 141 140 136 134* K 3.8 3.6* 3.7 3.6* 3.9 3.8 4.5 CHLOR 103 101 105 105 103 102 102 CO2 26 26 24 22 22 18* 17* ANION 12 14 11 14 15 16 15 BUN 42* 43* 51* 53* 59* 59* 53* CREAT 3.66* 3.22* 3.32* 3.43* 3.88* 4.16* 3.76* CHEM: Recent Labs 07/12/1744607/11/1792407/11/1733807/10/1742407/08/17223107/07/17234207/06/17225707/06/17 0105 ALB -- -- -- 1.9* 1.6* 1.5* 1.4* 1.5* TPROT -- -- -- 5.2* 4.8* 4.9* 4.4* 4.3* CA 8.2* 8.0* -- 8.2* 8.3* 7.7* 7.4* 7.3* MG -- -- 1.8 1.8 2.1 2.2 2.3 2.1 HEPATIC: Recent Labs 07/10/1742407/08/17223107/07/17234207/06/17225707/06/17 0105 ALKPHOS 114 112 114 86 62 ALT 24 24 26 15 6* AST 17 22 36* 30 19 TBILI 0.4 0.4 0.6 0.3 0.2 URINALYSIS: Recent Labs 07/07/17 1507 07/05/17 2141 07/05/17 1633 07/05/17 1333 PH -- 7.40 7.33* 7.33* SPGR 1.005 -- -- -- UGLUC Negative -- -- -- UBILI Negative -- -- -- UKET Negative -- -- -- UHB 1+* -- -- -- UPROT Negative -- -- -- UWBC 0-5 -- -- -- CARDIAC: No results for input(s): CKTEST, CKMB, CKMBP, TROPT, PBNP in the last 168 hours. Assessment/Plan 46 year old woman who presents with PMHx gastric cancer s/p near-total gastrectomy, chemo, and radiation in 2000; radiation-induced CKD s/p left kidney transplant 2009 on chronic immunosuppression; HTN; GERD; malnutrition; chronic gastric ulcers; and recent ulcerative GI bleed; who presents from OSH to [facility] with complains of fever, myalgias, shortness of breath transferred to the MICU and intubated with hypoxic respiratory failure. Extubated 07/07. ?? #Influenza B Pneumonia ?Productive cough, SOB, fevers, tachycardia, worsening infiltrates in CXR compared to OSH imaging Was on ceftriaxone and azithromycin at OSH Lactate normal Extubated 07/07 Concerns for viral pneumonia with supper imposed strep. RVP negative Influenze B positive, completed course of tamiflu Legionella Ag neg Plan: - Currently on ceftriaxone until 07/17 (14 days total) - O2 to sat > 94% - Duonebs ?? #Kidney transplant recipient? S/p living unrelated donor kidney transplant (from adoptive mother) 02/21/10 now with CKD CMV -/+. Home meds: Cellcept, Prednisone and Prograf. Transplant US showed patent renal transplant vasculature, no hydronephrosis CMV DNA levels negative Plan: - Holding MMF for now - Tacro resumed - Prednisone 5 mg - Follow Tk level #Thrombocytopenia/anemia Platelets 23 on admission, now 16 PF4 negative Hb 6.7 today Plan: Transfuse blood 1 unit d/t low Hb ?? #HTN -continue home norvasc ?? #Severe protein-calorie malnutrition (HCC)? - dental soft diet ?? #Pancreatic insufficiency? Started on Creon in clinic after evidence of fat malabsorption She has macrocytic anemia Plan: - Continue creon with meals, Viokace - Nutrition consult ?? #JENNIFFER (acute kidney injury) (HCC)? JENNIFFER on CKD SCR basline ~ 2.4 In the setting of sepsis, decreased PO intake Improving urine output? UOP was 1900 mL yesterday, Cr increased to 3.66 today from 3.32 yesterday Plan: - appreciate transplant nephrology recs - Renally dose meds - Strict I/O - Replete fluids ?? #Bacteremia - Positive strep pneumo blood cultures at OSH on 07/03; susceptible to ceftiaxone Plan: - continue antibiotics as above; total days 14 due to bacteremia in setting of immunosuppression - Follow blood cultures, no growth x 4?days ?? #Influenza B Completed 5 day course of tamiflu SIGNATURE: Misa Nevarez MS This note is not final until staffed by the attending physician and authenticated by responsible provider. SIGNATURE: Misa Nevarez MS PATIENT NAME: Val Valverde DATE: July 12, 2017 TIME: 7:15 AM [facility] Addendum - INTERVAL HPI: - No acute events overnight - Patient is feeling better. No sob on rest. SOBOE + - VSS, afebrile, on 2L NC ? Plan for the Day: - 1U PRBC transfusion - OOB - Encourage PO intake ? PHYSICAL EXAM: BP 142/85 Pulse 89 Temp 37.1 ?C (98.8 ?F) (Oral) Resp 18 Ht 149.9 cm (4' 11) Wt 40 kg (88 lb 2.9 oz) SpO2 97% BMI 17.81 kg/m2 General: No acute distress. Lungs: Normal respiratory effort. Decreased breath sound at right lung base, Occasional crackles on left lung base. No wheezing. Heart: RRR Abdomen: Soft abdomen, nontender. BS + Extremities: No edema ? MEDICATIONS: Current medications: Reviewed ? DATA: All relevant labs and imaging reviewed. ? ASSESSMENT AND PLAN: 46 year old woman who presents with PMHx gastric cancer s/p near-total gastrectomy, chemo, and radiation in 2000; radiation-induced CKD s/p left kidney transplant 2009 on chronic immunosuppression; HTN; GERD; malnutrition; chronic gastric ulcers; and recent ulcerative GI bleed; who presents from OSH to [facility] with complains of fever, myalgias, shortness of breath transferred to the MICU and intubated with hypoxic respiratory failure. Extubated 07/07. ?? Influenza B Pneumonia ?Productive cough, SOB, fevers, tachycardia, worsening infiltrates in CXR compared to OSH imaging Was on ceftriaxone and azithromycin at OSH Lactate normal Extubated 07/07 Concerns for viral pneumonia with supper imposed strep. RVP negative Influenze B positive, completed course of tamiflu Legionella Ag neg ?? Plan: - Currently on ceftriaxone until 07/17 (14 days total) - O2 to sat > 94% - Duonebs ?? Kidney transplant recipient? S/p living unrelated donor kidney transplant (from adoptive mother) 02/21/10 now with CKD CMV -/+. Home meds: Cellcept, Prednisone and Prograf. Transplant US showed patent renal transplant vasculature, no hydronephrosis CMV DNA levels negative ?? Plan: - Holding MMF for now - Tacro resumed - Prednisone 5 mg - Follow Tk level ? Thrombocytopenia Platelets 23 on admission, now 16 PF4 negative ?? HTN -continue home norvasc ?? Severe protein-calorie malnutrition (HCC)? - dental soft diet ?? ?Pancreatic insufficiency? Started on Creon in clinic after evidence of fat malabsorption She has macrocytic anemia ?? Plan: - Continue creon with meals, Viokace - Nutrition consult ?? ?JENNIFFER (acute kidney injury) (HCC)? JENNIFFER on CKD SCR basline ~ 2.4 In the setting of sepsis, decreased PO intake Improving urine output? ?? Plan: - appreciate transplant nephrology recs - Renally dose meds - Strict I/O ?? Bacteremia - Positive strep pneumo blood cultures at OSH on 07/03; susceptible to ceftiaxone ?? Plan: - continue antibiotics as above; total days 14 due to bacteremia in setting of immunosuppression - Follow blood cultures, no growth x 4?days ?? ?Influenza B Completed 5 day course of tamiflu ? ? Chuy Wharton MD Internal Medicine Resident, PGY-2 July 12, 2017 Pager [phone] [facility] STAFF PHYSICIAN NOTE OF PERSONAL INVOLVEMENT IN CARE I have reviewed the Progress Note obtained and documented by Dr. Wharton and Ms. Nevarez and I personally participated in the flores components. I have discussed the case and management of the patient's care. My additions in bold above. The following comments revise or confirm relevant flores components of thier notes. Agree with assessment and plan as outlined above. STAFF SIGNATURE: Opal Acevedo DO, MA, [facility] Staff, Department of Hospital Medicine Pager Number : [phone] 07/12/2017 10:19 PM BASIC METABOLIC PANL Collected: 07/12/2017 Status: F Source: [place] 4:47 AM [facility] REPOSITORY TYPE CODE TESTS RESULT OUT OF REFERENCE UNITS RANGE LAB GLU 74-99 mg/dL Low Glucose 68 Result Comment: The [place] Diabetes Association (ADA) provides guidance for cutoff values for fasting glucose and random glucose. The ADA defines fasting as no caloric intake for at least 8 hours. Fas ting plasma glucose results between 100 to 125 mg/dL indicate increased risk for diabetes (prediabetes). Fasting plasma glucose results greater than or equal to 126 mg/dL meet the criteria for diagnosis of diabetes. In the absence of unequivocal hyperglycemia, results should be confirmed by repeat testing. In a patient with classic symptoms of hyperglycemia or hyperglycemic crisis, random plasma glucose results greater than or equal to 200 mg/dL meet the criteria for diagnosis of diabetes. Reference: Standards of Medical Care in Diabetes 2016, [place] [employer] Association. Diabetes Care. 2016.39(Suppl 1). LAB BUN 7-21 mg/dL BUN High 42 LAB CRET 0.58-0.96 mg/dL Creatinine High 3.66 LAB NA 136-144 mmol/L Sodium 141 LAB K 3.7-5.1 mmol/L Potassium 3.8 LAB CL 97-105 mmol/L Chloride 103 LAB CO2 22-30 mmol/L CO2 26 LAB AGAP 9-18 mmol/L Anion Gap 12 LAB CA 8.5-10.2 mg/dL Low Calcium, Total 8.2 LAB GFRAA eGFR- Amer. 16 LAB GFRNAA . eGFR-All Other Races 13 Result Comment: eGFR (Estimated GFR) Units of measure: mL/min/1.73 meters squared eGFR is derived from the reexpressed MDRD Study equation using the following parameters: serum creatinine, age, gender and race. The creatinine assay has been calibrated to be traceable to IDMS. An eGFR <60 mL/min/1.73m2 for >3 months is consistent with chronic kidney disease. Refer to KDOQI guidelines for clinical interpretation. In patients with unstable renal function, e.g. those with acute kidney injury, the eGFR may not accurately reflect actual GFR. Performed By: #### BMP, CBC #### [facility] [address], [place] [address] CBC Collected: 07/12/2017 Status: F Source: [place] 4:47 [facility] REPOSITORY TYPE CODE TESTS RESULT OUT OF REFERENCE UNITS RANGE LAB WBC 3.70-11.00 k/uL WBC 9.50 LAB RBC 3.90-5.20 m/uL Low RBC 1.92 LAB HGB 11.5-15.5 g/dL Low Hemoglobin 6.7 LAB HCT 36.0-46.0 % Low Hematocrit 20.5 LAB MCV 80.0-100.0 fL MCV High 106.8 LAB MCH 26.0-34.0 pG MCH High 34.9 LAB MCHC 30.5-36.0 g/dL MCHC 32.7 LAB RDWCV 11.5-15.0 % RDW-CV High 18.4 LAB PLTCT 150-400 k/uL Low Platelet Count 18 Result Comment: Result checked and verified No clot detected. No call per procedure. 07/12/17 0754 BBlum LAB MPV 9.0-12.7 fL MPV <<DO NOT REPORT>> LAB ABSNUC <0.01 k/uL <0.01 Absolute nRBC Performed By: #### BMP, CBC #### [facility] [address], [place] [address] TACROLIMUS / [id number] Collected: 07/12/2017 Status: F Source: [place] 4:47 [facility] REPOSITORY TYPE CODE TESTS RESULT OUT OF REFERENCE UNITS RANGE LAB FK506 5.0-20.0 ng/mL Low Tacrolimus / 2.3 FK506 Result Comment: These reference ranges are provided as a general recommendation. Individualized target levels for a given patient will depend on many factors (including the type of organ transplant, ti me since transplantation, concurrent medications, and other clinical factors), and should be assessed by those health care providers experienced in the management of immunosuppression. Reference ranges and high/low indicator flags are provided as general guidelines only. The treating physician must determine appropriate target levels/dosing based on the specific clinical situation. Test performed by chemiluminescent immunoassay using [employer] Staff Member. Performed By: #### FK506 #### [facility] [address] [id number] THERAPY NT Observed: 07/11/2017 Status: COMPLETED Source: [place] 3:56 PM [facility] REPOSITORY HNO ID: [id number] Author: Quentin (Pt) Loren Service: Physical Therapy Author Type: Physical Therapist Type: Therapy (PT/OT/Speech/Resp) Filed: 07/11/2017 3:59 PM Note Text: Physical Therapy Evaluation SERVICE DATE: 07/11/2017 SERVICE TIME: 1110 to 1200 ROOM: [place] [address] Recommended Discharge Disposition: Outpatient Physical Therapy Anticipated Discharge Needs: Equipment Recommended Discharge Equipment: Wheeled Walker PT Recommendations to Nursing: Ambulate with device using gait belt;In halls using gait belt Device: Wheeled Walker PT 6 Clicks Score: 21 Precautions/Activity Restrictions: Fall Risk Isolation Type: Droplet ASSESSMENT: The patient is in good spirits and willing to participate. Will require 24 hr assist and a wheeled walker to maintain safety. I recommend out-patient PT to address weakness and balance impairments. Tolerated Full Session Physical Therapy Problem List: Decreased Strength;Functional Mobility Impairment;Balance Impaired Patient /Caregiver Goals: Go Home Goals for Plan of Care: Transfer supine to/from sit with: Supervision Transfer sit to/from stand with: Supervision Ambulate with: Supervision Distance: 100 Device: Wheeled Walker Transfer: Supervision with LRAD Progress Toward Goals: Progressing as expected PLAN: Treatment Frequency (times per week): 2 Current admission Treatment Interventions: Education;Functional Mobility Training Plan of Care developed with: Patient TREATMENT INTERVENTIONS: Therapy Diagnosis: Reduced mobility-other;Muscle Weakness (generalized) Interventions Provided: Evaluation;Therapeutic Activity (26370);Gait Training (95842) $ Evaluation-Low (30591) Billed Units: 1 unit Therapeutic Activity (01009) Treatment Minutes: 12 1 unit Skilled Intervention(s): Instructed patient in log roll technique Instructed patient in supine to and from sit pushing with upper extremities to sit up Instruction in sit to and from stand technique with proper hand placement and body positioning at edge of bed/chair Gait Training (18379) Treatment Minutes: 11 1 unit Skilled Intervention(s): Instruction in sequencing, gait pattern, Instruction in correction of gait deviations and Instruction in use of equipment, cues for sequence and pattern Total Timed Code Treatment Minutes: 23 Total Treatment Time (minutes): 23 FUNCTIONAL G CODE: PT 6 Clicks Score: 21 (07/11/17 1110) Mobility: Walking and Moving Around Current Status (G8978): CJ (07/11/17 1110) Mobility: Walking and Moving Around Goal Status (G8979): CI (07/11/17 111) Based on clinical assessment and the score on the 6 Clicks Functional Assessment Tool, the G code and corresponding severity modifiers are documented above. SUBJECTIVE: Current Hospital Course: Chart reviewed; . OSH transfer for strep pneumonia. Patient Report: I plan to go to my parents. Home Environment Patient Lives With: Family (plans to d/c to her parents where 24 hr assist is available) Assistance Available: 24 Hour Entry To Home: No Stairs Prior Functional Level: Required Assistance OBJECTIVE: Mini Cog Score: 5 (07/11/17 1110) CURRENT FUNCTIONAL STATUS: Current Functional Mobility Assist Level Additional Information Rolling Supervision Supine to Sit Supervision Sit to Supine Supervision Scooting Sit to Stand Supervision Stand to Sit Stand By Assistance Bed to Chair Toilet/Commode Gait Supervision Gait Device: None;Wheeled Walker Gait Distance (feet): 50 Please see discipline specific clinical documentation flowsheet for complete details for this therapy evaluation/treatment. SIGNATURE: Quentin Pimentel PT PATIENT NAME: Val Valverde DATE: July 11, 2017 TIME: 3:56 PM PAGER/CONTACT #: [phone] CONSULT PROG Observed: 07/11/2017 Status: COMPLETED Source: [place] 3:07 PM [facility] REPOSITORY HNO ID: [id number] Author: Cayden Rodriguez Service: Transplant Author Type: Nurse Practitioner Type: Consult Progress Note Filed: 07/11/2017 3:17 PM Note Text: CONSULT PROGRESS NOTE NEPHROLOGY SERVICE SERVICE DATE: 07/11/2017 SERVICE TIME: 3:07 PM Subjective INTERVAL HISTORY: No acute events overnight Feeling better but weak Scr 3.2, stable, at baseline Poor appetite MEDICATIONS: Current hospital medications: melatonin 3 mg tab(s) 3 mg ORAL DAILY (7 PM) [id number] 1 capsule cap(s) (CREON 12) 1 capsule ORAL TID w MEALS tacrolimus 1 mg cap(s) (PROGRAF) 1 mg ORAL q 12 H 6a/6p dronabinol 2.5 mg cap(s) (MARINOL) 2.5 mg ORAL QID oxyCODONE IR 5 mg tab(s) (ROXICODONE) 5 mg ORAL q [address] 40 mg tab(s) (PROTONIX) 40 mg ORAL BID AC (0600/1600) cefTRIAXone 1 g in D5W 50 mL MB+ (ROCEPHIN) 1 g INTRAVENOUS q 24 H vitamin B complex with C-FA-CU-ZN renal vitamins 1 tablet (DIATX ZN) 1 tablet OTHER DAILY ipratropium-albuterol 3 mL nebulizer solution (DUONEB) 3 mL INHALATION q 4 H while awake 0.9% NaCl 3-5 mL 3-5 mL INTRAVENOUS q 12 H dextrose 50% in water 25-50 mL syringe 12.5-25 g INTRAVENOUS PRN dextrose 40 % 15 g (INSTA-GLUCOSE) 15 g ORAL PRN glucagon 1 mg injection (GLUCAGEN) 1 mg SUBCUTANEOUS PRN acetaminophen 650 mg tab(s) (TYLENOL) 650 mg ORAL/FEEDING TUBE q 6 H PRN acetaminophen 650 mg suppository (TYLENOL) 650 mg RECTAL q 6 H PRN amLODIPine 2.5 mg tab(s) (NORVASC) 2.5 mg ORAL/FEEDING TUBE DAILY predniSONE 5 mg tab(s) (DELTASONE) 5 mg ORAL/FEEDING TUBE DAILY Objective PHYSICAL EXAM: BP 126/80 Pulse 100 Temp 36.9 ?C (98.4 ?F) (Oral) Resp 18 Ht 149.9 cm (4' 11) Wt 40 kg (88 lb 2.9 oz) SpO2 99% BMI 17.81 kg/m2 Intake/Output Summary (Last 24 hours) at 07/11/17 1507 Last data filed at 07/11/17 1400 Gross per 24 hour Intake 535 ml Output 1450 ml Net -915 ml Constitutional: No acute distress, Responsive, Normal habitus and Thin Neck: Trachea midline No jugular venous distension Cardiovascular: Regular rate and ryhthm, normal S1 and S2, no murmurs, rubs, or gallops No peripheral edema Respiratory: Normal respiratory effort. Lungs clear bilaterally. Abdomen: Soft, non-tender, non-distended. Normal bowel sounds. No hepatosplenomegaly. Psychiatric: Alert and oriented x self, place, time, and setting Normal mood/affect DATA: Diagnostic tests reviewed for today's visit: Most recent labs and imaging results. Recent Labs 07/11/17 0925 07/11/17 0339 07/10/17 0425 07/08/17 2232 07/07/17 2343 07/06/17 2258 NA 141 -- 140 141 140 136 K 3.6* -- 3.7 3.6* 3.9 3.8 CHLOR 101 -- 105 105 103 102 CO2 26 -- 24 22 22 18* BUN 43* -- 51* 53* 59* 59* CREAT 3.22* -- 3.32* 3.43* 3.88* 4.16* GLUC 106* -- 85 93 87 178* ANION 14 -- 11 14 15 16 CA 8.0* -- 8.2* 8.3* 7.7* 7.4* P -- 4.5 4.4 4.5 4.0 4.0 MG -- 1.8 1.8 2.1 2.2 2.3 Recent Labs 07/11/17 0925 07/10/17 0425 07/08/17 2232 WBC 10.87 9.39 10.40 HB 7.0* 7.2* 7.7* HCT 21.4* 21.5* 22.4* PLT 16* 15* 16* Recent Labs 07/07/17 1507 04/16/17 0956 01/14/17 1018 COLOR Yellow Yellow Yellow CLARITY Clear Clear Cloudy* UGLUC Negative Negative Negative UBILI Negative Negative Negative UKET Negative Negative Negative SPGR 1.005 1.016 1.012 UHB 1+* Negative Negative UPH 5.0 5.5 5.0 UPROT Negative Trace* Negative NITRITES Negative Negative Negative LEUKEST Negative Negative Negative UWBC 0-5 -- -- URBC 0-3 -- -- Recent Labs 07/11/17 0925 07/08/17 2232 07/08/17 1000 07/04/17 2347 OVIDIO -- -- 1726.0* -- -- -- TRANSFERSAT -- -- -- 25 -- -- B12 -- -- -- -- -- >2000* FOLATE -- -- -- -- -- >20.0 HB 7.0* < > 7.7* -- < > 8.5* < > = values in this interval not displayed. Recent Labs 07/11/17 0925 07/11/17 0339 07/10/17 0425 CA 8.0* -- 8.2* P -- 4.5 4.4 ALB -- -- 1.9* No results for input(s): BUNRAT, BUNPR, BUNPO in the last 168 hours. No results for input(s): HEPSABQ in the last 1440 hours. Invalid input(s): HEPSABG Recent Labs 07/11/17 0339 07/07/17 1047 07/06/17 0448 FK506 2.7* 4.8* 15.3 Assessment/Plan Ms. Valverde is a 46 year old female with Hx of Gastric cancer diagnosed at age 32 s/p , Layne-en-Y gastrojejunostomy, gastrojejunal ?anastomotic?anastomosis c/b?anastomotic CMV?ulceration and GIB , Hx of ?Kidney transplant on 2009 d/t radiation for Gastric cancer, Hx of pancreatic insufficiency, Hx of DVT.She presented with severe sepsis in the settings of flu B infection. Ms. Valverde is a 46 year old female with Hx of Gastric cancer diagnosed at age 32 s/p , Layne-en-Y gastrojejunostomy, gastrojejunal ?anastomotic?anastomosis c/b?anastomotic CMV?ulceration and GIB , Hx of ?Kidney transplant on 2010 d/t radiation for Gastric cancer, Hx of pancreatic insufficiency, Hx of DVT. She presented with severe sepsis in the settings of flu B infection. Her OSH blood c/s grew strept bacteremia ?? JENNIFFER on top of CKD stage 4 in a patient with hx of kidney Tx on 2009. Likely prerenal Non oliguric. Improving Baseline creatinine is around 3-3.4 TX kidney US showed patent vs and no hydronephrosis UA showed no pyuria, +1 Hb, no proteins ?? Kidney Tx on 2009 Home IS:?tacrolimus 2 mg AM and 1 mg PM, prednisone 5 mg once daily. Off MMF given the hx of CMV infection Current IS: Tacrolimus 05/19 and prednisone 5 mg CMV PCR in blood came back negative ?? Associated issues Hypoalbuminemia Malnutrition Euvolemic Acute on top of chronic anemia of CKD Thrombocytopenia: Likely secondary to sepsis. LDH is slightly high but haptoglobin is not consumed ? PLAN: -Increase Tacrolimus to 2 mg in A.M and 1 mg in P.M -Daily renal Function Panel -Daily Tacrolimus level, draw 30-60 min prior to A.M dose. - Monitor I/O ? SIGNATURE: Cayden Rodriguez CNP PATIENT NAME: Val Valverde DATE: July 11, 2017 TIME: 3:07 PM PAGER: [phone] PROGRESS Observed: 07/11/2017 Status: COMPLETED Source: [place] 10:30 AM [facility] REPOSITORY O ID: [id number] Author: Opal Acevedo Service: General Internal Medicine Author Type: Physician Type: Progress Notes Filed: 07/11/2017 9:10 PM Note Text: Progress Note For questions regarding this patient for today, please page [phone]. During weekends and overnight please call the On-Call Pager. Patient Name: Val Valverde Admission Date: 07/04/2017 INTERVAL HPI: - No acute events overnight - Patient is feeling better. No sob on rest. SOBOE + - VSS, afebrile, on 2L NC Plan for the Day: - Follow AM labs - OOB - Encourage PO intake - PT/OT evaluation for placement PHYSICAL EXAM: BP 142/85 Pulse 89 Temp 37.1 ?C (98.8 ?F) (Oral) Resp 18 Ht 149.9 cm (4' 11) Wt 40 kg (88 lb 2.9 oz) SpO2 97% BMI 17.81 kg/m2 General: No acute distress. Lungs: Normal respiratory effort. Decreased breath sound at right lung base, Occasional crackles on left lung base. No wheezing. Heart: RRR Abdomen: Soft abdomen, nontender. BS + Extremities: No edema MEDICATIONS: Current medications: Reviewed DATA: All relevant labs and imaging reviewed. ASSESSMENT AND PLAN: 46 year old woman who presents with PMHx gastric cancer s/p near-total gastrectomy, chemo, and radiation in 2000; radiation-induced CKD s/p left kidney transplant 2009 on chronic immunosuppression; HTN; GERD; malnutrition; chronic gastric ulcers; and recent ulcerative GI bleed; who presents from OSH to [facility] with complains of fever, myalgias, shortness of breath transferred to the MICU and intubated with hypoxic respiratory failure. Extubated 07/07. ? Influenza B Pneumonia ?Productive cough, SOB, fevers, tachycardia, worsening infiltrates in CXR compared to OSH imaging Was on ceftriaxone and azithromycin at OSH Lactate normal Extubated 07/07 Concerns for viral pneumonia with supper imposed strep. RVP negative Influenze B positive, completed course of tamiflu Legionella Ag neg ?? Plan: - Currently on ceftriaxone until 07/17 (14 days total) - O2 to sat > 94% - Duonebs ?? Kidney transplant recipient S/p living unrelated donor kidney transplant (from adoptive mother) 02/21/10 now with CKD CMV -/+. Home meds: Cellcept, Prednisone and Prograf. Transplant US showed patent renal transplant vasculature, no hydronephrosis CMV DNA levels negative ?? Plan: - Holding MMF for now - Tacro resumed - Prednisone 5 mg - Follow Tk level Thrombocytopenia Platelets 23 on admission, now 16 PF4 negative ?? HTN -continue home norvasc ? Severe protein-calorie malnutrition (HCC) - dental soft diet ?? ?Pancreatic insufficiency Started on Creon in clinic after evidence of fat malabsorption She has macrocytic anemia ?? Plan: - Continue creon with meals, Viokace - Nutrition consult ?? ?JENNIFFER (acute kidney injury) (HCC) JENNIFFER on CKD SCR basline ~ 2.4 In the setting of sepsis, decreased PO intake Improving urine output ?? Plan: - appreciate transplant nephrology recs - Renally dose meds - Strict I/O ?? Bacteremia - Positive strep pneumo blood cultures at OSH on 07/03; susceptible to ceftiaxone ? Plan: - continue antibiotics as above; total days 14 due to bacteremia in setting of immunosuppression - Follow blood cultures, no growth x 4 days ?? ?Influenza B Completed 5 day course of tamiflu Chuy Wharton MD Internal Medicine Resident, PGY-2 July 11, 2017 10:30 AM Pager [phone] [facility] STAFF PHYSICIAN NOTE OF PERSONAL INVOLVEMENT IN CARE I have reviewed the Progress Note obtained and documented by Dr. Wharton and I personally participated in the flores components. I have discussed the case and management of the patient's care. My additions in bold above. The following comments revise or confirm relevant flores components of his note. Agree with assessment and plan as outlined above. STAFF SIGNATURE: Opal Acevedo DO, MA, [facility] Staff, Department of Hospital Medicine Pager Number : [phone] 07/11/2017 9:10 PM CBC Collected: 07/11/2017 Status: F Source: [place] 9:25 AM [facility] REPOSITORY TYPE CODE TESTS RESULT OUT OF REFERENCE UNITS RANGE LAB WBC 3.70-11.00 k/uL WBC 10.87 LAB RBC 3.90-5.20 m/uL Low RBC 2.01 LAB HGB 11.5-15.5 g/dL Low Hemoglobin 7.0 LAB HCT 36.0-46.0 % Low Hematocrit 21.4 LAB MCV 80.0-100.0 fL MCV High 106.5 LAB MCH 26.0-34.0 pG MCH High 34.8 LAB MCHC 30.5-36.0 g/dL MCHC 32.7 LAB RDWCV 11.5-15.0 % RDW-CV High 18.3 LAB PLTCT 150-400 k/uL Low Platelet Count 16 Result Comment: Result checked and verified No clot detected. No call per procedure. 07/11/17 1036 [place] LAB MPV 9.0-12.7 fL MPV 12.4 LAB ABSNUC <0.01 k/uL Absolute nRBC <0.01 Performed By: #### CBC, BMP #### [facility] [address] [place] [address] BASIC METABOLIC PANL Collected: 07/11/2017 Status: F Source: [place] 9:25 AM [facility] REPOSITORY TYPE CODE TESTS RESULT OUT OF REFERENCE UNITS RANGE LAB GLU 74-99 mg/dL High Glucose 106 Result Comment: The [place] Diabetes Association (ADA) provides guidance for cutoff values for fasting glucose and random glucose. The ADA defines fasting as no caloric intake for at least 8 hours. Fas ting plasma glucose results between 100 to 125 mg/dL indicate increased risk for diabetes (prediabetes). Fasting plasma glucose results greater than or equal to 126 mg/dL meet the criteria for diagnosis of diabetes. In the absence of unequivocal hyperglycemia, results should be confirmed by repeat testing. In a patient with classic symptoms of hyperglycemia or hyperglycemic crisis, random plasma glucose results greater than or equal to 200 mg/dL meet the criteria for diagnosis of diabetes. Reference: Standards of Medical Care in Diabetes 2016, [place] [employer] Association. Diabetes Care. 2016.39(Suppl 1). LAB BUN 7-21 mg/dL BUN High 43 LAB CRET 0.58-0.96 mg/dL Creatinine High 3.22 LAB NA 136-144 mmol/L Sodium 141 LAB K 3.7-5.1 mmol/L Low Potassium 3.6 LAB CL 97-105 mmol/L Chloride 101 LAB CO2 22-30 mmol/L CO2 26 LAB AGAP 9-18 mmol/L Anion Gap 14 LAB CA 8.5-10.2 mg/dL Low Calcium, Total 8.0 LAB GFRAA eGFR- Amer. 19 LAB GFRNAA . eGFR-All Other Races 16 Result Comment: eGFR (Estimated GFR) Units of measure: mL/min/1.73 meters squared eGFR is derived from the reexpressed MDRD Study equation using the following parameters: serum creatinine, age, gender and race. The creatinine assay has been calibrated to be traceable to IDMS. An eGFR <60 mL/min/1.73m2 for >3 months is consistent with chronic kidney disease. Refer to KDOQI guidelines for clinical interpretation. In patients with unstable renal function, e.g. those with acute kidney injury, the eGFR may not accurately reflect actual GFR. Performed By: #### CBC, BMP #### [facility] [address] [place], [place] [address] MAGNESIUM Collected: 07/11/2017 Status: F Source: [place] 3:39 AM [facility] REPOSITORY TYPE CODE TESTS RESULT OUT OF REFERENCE UNITS RANGE LAB MG 1.7-2.3 mg/dL Magnesium 1.8 Performed By: #### MG1, PHOS #### [facility] [address] [place], [place] [address] PHOSPHORUS Collected: 07/11/2017 Status: F Source: [place] 3:39 AM [facility] REPOSITORY TYPE CODE TESTS RESULT OUT OF REFERENCE UNITS RANGE LAB PHOS 2.7-4.8 mg/dL Phosphorus 4.5 Performed By: #### MG1, PHOS #### [facility] [address] [place], [place] [address] TACROLIMUS / FK506 Collected: 07/11/2017 Status: F Source: [place] 3:39 AM [facility] REPOSITORY TYPE CODE TESTS RESULT OUT OF REFERENCE UNITS RANGE LAB FK506 5.0-20.0 ng/mL Low Tacrolimus / 2.7 FK506 Result Comment: These reference ranges are provided as a general recommendation. Individualized target levels for a given patient will depend on many factors (including the type of organ transplant, ti me since transplantation, concurrent medications, and other clinical factors), and should be assessed by those health care providers experienced in the management of immunosuppression. Reference ranges and high/low indicator flags are provided as general guidelines only. The treating physician must determine appropriate target levels/dosing based on the specific clinical situation. Test performed by chemiluminescent immunoassay using [facility]. Performed By: #### FK506 #### [facility] [address] [place], [place] [address] CONSULT Observed: 07/10/2017 Status: COMPLETED Source: [place] 11:00 AM [facility] REPOSITORY HNO ID: [id number] Author: Mihaela BoggsRn) DICK Phillips Service: Wound Care Team Author Type: Registered Nurse Type: Consults Filed: 07/10/2017 11:10 AM Note Text: A/P: There was a deep purple raised lesion over bony prominence, triangular in shape. Surrounding skin red and blanching. Pt was very thin with minimal fat. Spinal column also prominent and concerned for skin breakdown. Offloading positioner ordered to keep back and coccyx offloaded. 1.)Coccyx deep tissue injury: POA 2.) 3.) 4.) Recommendations: 1. Coccyx: cleanse with NS. Prep surrounding skin with Sting free barrier and cover with Allevyn foam. Change q 3 days. 2. Offloading - maintain Q2hour turns per Sebastian risk assessment (=/<18). Obtain Z4 positioner. Fold lengthwise and place along back while turned. Side to side turns only except for meals. 3. Maintain offloading of heels using pillows under calves. 4. Bed -[facility] 5. Nutrition services following for severe Protein Calorie Malnutrition. 6. Seating cushion while up in chair. 7. Wound care will continue to follow patient, reconsult if wounds worsens. - HPI: [id number] Val Valverde is a 46 year old female admitted for Pneumonia . WCCT consulted for coccyx ulcer Current interventions in use: TAP: No Turning wedges/positioner: Yes. Offloading boots: No Explain: pillow under calves Head cushion/positioner: N/A Seating cushion: Yes. Incontinence management: Yes. Current Bed: [facility] Barriers to healing: Diabetic: No PAD/PVD/Insufficiency: No Immunosuppression: yes Sickle Cell Disease: No Chemotherapy: No Radiation Therapy: No Spinal Cord Disease: No Mobility: fair Nicotine: Tobacco Use: 1 packs/day, for 20 years. Quit 02/21/2010. Types: Cigarettes Nutrition Consult: Yes. Obesity: No Current Antibiotic Coverage: Yes. Warfarin/Heparin: No Steroids: Yes. Inotropes/Pressors: No PHYSICAL EXAM: BP 138/81 Pulse 94 Temp (Src) 98.8 (Oral) Resp 18 Ht 4' 11 (1.50m) Wt 82 lb 7.2 oz (37.4kg) SpO2 97% BMI 16.64 kg/(m2). PRESSURE ULCERS Pressure Injury 07/05/17 0300 Coccyx (Active) Stage Injury DTI 07/10/2017 10:54 AM Engineer/Conductor Related Pressure Injury No 07/10/2017 10:54 AM Dressing Status Changed 07/10/2017 10:54 AM Frequency of Dressing Change Daily;Every 3 Days 07/10/2017 10:54 AM Dressing Change Due 07/13/17 07/10/2017 10:54 AM Dressing/Treatment Type Foam-Adhesive 07/10/2017 10:54 AM Drainage Description None 07/10/2017 10:54 AM Drainage Amount None 07/09/2017 9:00 PM Odor No 07/09/2017 9:00 PM Wound Surface Color Dark Purple 07/10/2017 10:54 AM Surrounding Skin Erythematous 07/10/2017 10:54 AM Length in Cm - Weekly 0.9 Cm 07/10/2017 10:54 AM Width in Cm - Weekly 1 Cm 07/10/2017 10:54 AM Depth in Cm - Weekly 0 Cm 07/09/2017 12:00 PM Photography: A photo was taken of the patient's wound(s). Photos can be found under the Get Images tab on [facility]. The purpose of the photo(s) is to optimize the patient's medical care and allow a visual aid to their wound evaluation and progress. ? Photo was taken of: rosa Verbal consent was obtained: Yes. ? Photos are uploaded per the wound family day care worker (WCC) and may not be immediately available for viewing. Contact [facility] with questions Mihaela Phillips RN [facility] #[id number] Mihaela Phillips RN CASE MANAGEM Observed: 07/10/2017 Status: COMPLETED Source: [place] 9:00 AM [facility] REPOSITORY HNO ID: [id number] Author: Martinez (Dick) DICK Masterson Service: Care Management Author Type: Registered Nurse Type: Care Mgt Progress Note Filed: 07/10/2017 9:01 AM Note Text: CARE MANAGEMENT PROGRESS NOTE SERVICE DATE: 07/10/2017 SERVICE TIME: 0900 LOS: 6 days Needs Prior to Discharge: To Be Determined From MICU. No needs currently. Needs TBD. SIGNATURE: Martinez Masterson RN PATIENT NAME: Val Valverde DATE: July 10, 2017 TIME: 9:00 AM PAGER/CONTACT #: [phone] COMP METABOLIC PANEL Collected: 07/10/2017 Status: F Source: [place] 4:25 AM [facility] REPOSITORY TYPE CODE TESTS RESULT OUT OF REFERENCE UNITS RANGE LAB TP 6.3-8.0 g/dL Low Protein, Total 5.2 LAB ALB 3.9-4.9 g/dL Low Albumin 1.9 LAB CA 8.5-10.2 mg/dL Low Calcium, Total 8.2 LAB TBIL 0.2-1.3 mg/dL Bilirubin, Total 0.4 LAB ALKP 32-117 U/L Alkaline Phosphatase 114 LAB AST 13-35 U/L AST 17 LAB GLU 74-99 mg/dL Glucose 85 Result Comment: The [place] Diabetes Association (ADA) provides guidance for cutoff values for fasting glucose and random glucose. The ADA defines fasting as no caloric intake for at least 8 hours. Fas ting plasma glucose results between 100 to 125 mg/dL indicate increased risk for diabetes (prediabetes). Fasting plasma glucose results greater than or equal to 126 mg/dL meet the criteria for diagnosis of diabetes. In the absence of unequivocal hyperglycemia, results should be confirmed by repeat testing. In a patient with classic symptoms of hyperglycemia or hyperglycemic crisis, random plasma glucose results greater than or equal to 200 mg/dL meet the criteria for diagnosis of diabetes. Reference: Standards of Medical Care in Diabetes 2016, [place] [employer]. Diabetes Care. 2016.39(Suppl 1). LAB BUN 7-21 mg/dL BUN High 51 LAB CRET 0.58-0.96 mg/dL Creatinine High 3.32 LAB NA 136-144 mmol/L Sodium 140 LAB K 3.7-5.1 mmol/L Potassium 3.7 LAB CL 97-105 mmol/L Chloride 105 LAB CO2 22-30 mmol/L CO2 24 LAB AGAP 9-18 mmol/L Anion Gap 11 LAB ALT 7-38 U/L ALT 24 LAB GFRAA eGFR- Amer. 18 LAB GFRNAA . eGFR-All Other Races 15 Result Comment: eGFR (Estimated GFR) Units of measure: mL/min/1.73 meters squared eGFR is derived from the reexpressed MDRD Study equation using the following parameters: serum creatinine, age, gender and race. The creatinine assay has been calibrated to be traceable to IDMS. An eGFR <60 mL/min/1.73m2 for >3 months is consistent with chronic kidney disease. Refer to KDOQI guidelines for clinical interpretation. In patients with unstable renal function, e.g. those with acute kidney injury, the eGFR may not accurately reflect actual GFR. Performed By: #### CMP, MG1, PHOS, CBCDIF #### [facility] [address] [place] [id number] MAGNESIUM Collected: 07/10/2017 Status: F Source: [place] 4:25 AM [facility] REPOSITORY TYPE CODE TESTS RESULT OUT OF REFERENCE UNITS RANGE LAB MG 1.7-2.3 mg/dL Magnesium 1.8 Performed By: #### CMP, MG1, PHOS, CBCDIF #### [facility] [address] [place], [place] [address] PHOSPHORUS Collected: 07/10/2017 Status: F Source: [place] 4:25 AM [facility] REPOSITORY TYPE CODE TESTS RESULT OUT OF REFERENCE UNITS RANGE LAB PHOS 2.7-4.8 mg/dL Phosphorus 4.4 Performed By: #### CMP, MG1, PHOS, CBCDIF #### [address] [place] [place], [place] [address] CBC AND DIFFERENTIAL Collected: 07/10/2017 Status: F Source: [place] 4:25 AM [facility] REPOSITORY TYPE CODE TESTS RESULT OUT OF REFERENCE UNITS RANGE LAB WBC 3.70-11.00 k/uL WBC 9.39 LAB RBC 3.90-5.20 m/uL Low RBC 2.09 LAB HGB 11.5-15.5 g/dL Low Hemoglobin 7.2 LAB HCT 36.0-46.0 % Low Hematocrit 21.5 LAB MCV 80.0-100.0 fL MCV High 102.9 LAB MCH 26.0-34.0 pG MCH High 34.4 LAB MCHC 30.5-36.0 g/dL MCHC 33.5 LAB RDWCV 11.5-15.0 % RDW-CV High 18.6 LAB PLTCT 150-400 k/uL Low Platelet Count 15 Result Comment: Result checked and verified No clot detected. No call per procedure. G100 07/10/17 0612 DV[facility]etMENDIETA LAB MPV 9.0-12.7 fL MPV 10.8 LAB ANEUT % Neut% 89.4 LAB AANEUT 1.45-7.50 k/uL Abs High Neut 8.40 LAB ALYMP % Lymph% 4.6 LAB AALYMP 1.00-4.00 k/uL Low Abs Lymph 0.43 LAB AMONO % [place]% 5.0 LAB AAMONO <0.87 k/uL Abs [place] 0.47 LAB AEOS % Eosin% 0.9 LAB AAEOS <0.46 k/uL Abs Eosin 0.08 LAB ABASO % Baso% 0.1 LAB AABASO <0.11 k/uL Abs Baso <0.03 LAB AUNRBC 0 /100 WBC NRBCs High 0.1 LAB ABNRBC <0.01 k/uL High Absolute nRBC 0.01 LAB DTYP DTYPE Auto Diff Performed By: #### CMP, MG1, PHOS, CBCDIF #### [facility] [address] [place], [place] [address] NURSING PROG Observed: 07/09/2017 Status: COMPLETED Source: [place] 7:34 PM [facility] REPOSITORY HNO ID: [id number] Author: Deloris BoggsRn) DICK Maguire Service: (none) Author Type: Registered Nurse Type: Nursing Progress Note Filed: 07/09/2017 7:35 PM Note Text: Nursing Progress Note Patient Name: Val Valverde Patient Location: G100 022/G100-22 Transfer Note: Patient transferred into room/unit G100 Bed 22 in stable condition. Oriented to room and call light. Actions taken: No futher actions taken at this time. Will continue to monitor and check with patient. This note was completed by: Deloris Maguire RN PLAN OF CARE Observed: 07/09/2017 Status: COMPLETED Source: [place] 5:02 PM [facility] REPOSITORY HNO ID: [id number] Author: Rakan Wang Service: Critical Care Author Type: Resident Type: Plan of Care Filed: 07/09/2017 5:05 PM Note Text: MICU TRANSFER TO REGULAR NURSING FLOOR Pt seen and examined on rounds with MICU staff and is stable to transfer to [facility]. Signout given to Med QB (or accepting specialty staff MD) and accepting team - Chandan Gooden Pt going to bed G100-22. Flores Issues: - Thrombocytopenia - Renal transplant patient on immunosuppression; tac held. - Ongoing treatment for strep pneumo bacteremia and pneumonia - Just finished tamiflu for influenza B - JENNIFFER Orders signed and held in [facility]. SIGNATURE: Rakan Wang DO PATIENT NAME: Val Valverde DATE: July 09, 2017 TIME: 5:03 PM PAGER/CONTACT #: [phone] NURSING PROG Observed: 07/09/2017 Status: COMPLETED Source: [place] 4:39 PM [facility] REPOSITORY HNO ID: [id number] Author: Alexandria Welsh) DICK Aj Service: Critical Care Author Type: Registered Nurse Type: Nursing Progress Note Filed: 07/09/2017 4:40 PM Note Text: Report called to G-100 RN Deloris. Awaiting transport. NUTRITION Observed: 07/09/2017 Status: COMPLETED Source: [place] 4:22 PM [facility] REPOSITORY HNO ID: [id number] Author: Sarah Trinh Service: NST-Nutrition Support Team Author Type: Registered Dietitian Type: Nutrition Filed: 07/09/2017 4:39 PM Note Text: NUTRITION THERAPY REASSESSMENT SERVICE DATE: 07/09/2017 SERVICE TIME: 1:00PM RECOMMENDED MALNUTRITION DIAGNOSIS: SEVERE PROTEIN-CALORIE MALNUTRITION In the context of Acute Illness or Injury based on: Insufficient Energy Intake: less than or equal to 50% for greater than or equal to 5 days Subcutaneous Fat Loss: Severe Loss Muscle Loss Severe Loss NUTRITION CARE PLAN: Intervention: Meals - continue dental soft diet Coordination of Care: - recommend discussing alternative routes of nutrition with patient, specifically enteral nutrition Goal: establishment of stable route of nutrition that will improve muscle mass and fat stores Discharge Nutrition Recommendations: To be determined Per HPI: 46 year old female with acute hypoxemic respiratory failure,/ARDS due to influenza, pneumonia; JENNIFFER, pancreatic insufficiency Relevant medical/surgical history: gastric carcinoma, S/P near total gastrectomy with Layne-en-Y gastrojejunostomy, S/P radiation radiation-induced renal failure, S/P renal transplant HTN Interval History: Extubated 2 days ago (on 07/07) Noted failed attempt at placing [place] feeding tube yesterday (07/08) - in too much pain for placement, even with lidocaine. Having feeding tube placed via EGD was recommended. Present Diet Order: Food Consistency Controlled Dental Soft Nutritional Intake: Average daily caloric and protein intake from enteral nutrition (07/06 - 07/07): 1002 calories, 45 grams protein Percentage estimated energy requirement from nutrition: 83% Percentage estimated protein requirement from nutrition: 76% Solid food was initiated evening of 07/07. Patient visited at lunch - ate few bites of food, stating she cannot eat regular-sized meals. Eats between meals. Does not tolerate Ensure/Boost, probably due to dumping syndrome. Patient suspects she is lactose-intolerant as she gets diarrhea after consuming dairy products (unless it is a small amount). Per nursing documentation, patient ate 25% of breakfast today. Patient is severely malnourished; discussed, briefly, use of enteral nutrition which may need administered via J-tube GI symptoms: anorexia and early satiety Abdominal Exam: not assessed Is the patient having any pain that is interfering with oral/enteral intake? No ANTHROPOMETRICS Height: 149.9 cm (4' 11) Admission Weight: 34.2 kg (75 lb 6.4 oz) Current Weight: 37.4 kg (82 lb 7.2 oz) Body mass index is 16.65 kg/(m2). underweight Weight history: stable Weight changes during hospitalization: weight gain for unknown reason Dosing Weight: 34.2 kg Resting Metabolic Rate: 928 Estimated kilocalorie needs: 1572 - 1661 kilocalories determined by Barnwell-St. Jeor x 1.2 - 1.3 plus additional 500 kilocalories for weight gain Estimated protein needs: at least 34 - 41 grams determined by 1.0 -1.2 g/kg Dosing weight NUTRITION FOCUSED PHYSICAL EXAM: Subcutaneous Fat Loss Orbital Mild Triceps Severe Mid-axillary at the iliac crest Unable to determine at this time Muscle Loss Locations: Temporalis Severe Pectoralis Moderate Deltoids Moderate Interosseous Moderate Latissimus dorsi, trapezius Unable to determine at this time Quadriceps Severe Gastrocnemius Severe Potential micronutrient deficiency revealed in: Hair - easily pluckable Edema: No Ascites: No Assessment of Functional Status: Functional capacity is unrelated to nutrition status Temperature Max in 24 hours: Temp (24hrs), Av.8 ?C (98.2 ?F), Min:36.7 ?C (98 ?F), Max:36.8 ?C (98.3 ?F) BP 150/87 Pulse 86 Temp 36.8 ?C (98.2 ?F) (Oral) Resp 8 Ht 149.9 cm (4' 11) Wt 37.4 kg (82 lb 7.2 oz) SpO2 100% BMI 16.65 kg/m2 Recent Labs 07/08/17 2232 GLUC 93 BUN 53* CREAT 3.43* NA 141 K 3.6* CHLOR 105 CO2 22 ALB 1.6* HB 7.7* HCT 22.4* WBC 10.40 P 4.5 MG 2.1 Potential Signs of Inflammation: hypoalbuminemia Pertinent medications: mbexey-wdmssakd-shwgfqm, prednisone, Vitamin B complex with C-FA-CU-ZN renal vitamins Pressure Injury 07/05/17 0300 Coccyx (Active) Stage Injury DTI 07/09/2017 12:00 PM Engineer/Conductor Related Pressure Injury No 07/09/2017 12:00 PM Dressing Status Clean, Dry AND Intact 07/09/2017 12:00 PM Frequency of Dressing Change Daily 07/09/2017 12:00 PM Dressing Change Due 07/10/17 07/09/2017 12:00 PM Dressing/Treatment Type Triad 07/09/2017 12:00 PM Drainage Description None 07/09/2017 12:00 PM Drainage Amount None 07/09/2017 12:00 PM Odor No 07/09/2017 12:00 PM Wound Surface Color Dark Purple 07/09/2017 12:00 PM Surrounding Skin Intact 07/09/2017 12:00 PM Length in Cm - Weekly 2 Cm 07/09/2017 12:00 PM Width in Cm - Weekly 2 Cm 07/09/2017 12:00 PM Depth in Cm - Weekly 0 Cm 07/09/2017 12:00 PM Number of days:4 MNT Billing Type: Re-assess/15 min 3 units SIGNATURE: Camryn Trinh MS RD LD PATIENT NAME: Val Valverde DATE: July 09, 2017 TIME: 4:23 PM PAGER: [phone] CONSULT PROG Observed: 07/09/2017 Status: COMPLETED Source: [place] 3:25 PM [facility] REPOSITORY O ID: [id number] Author: Speedy Andre (Fel) Service: Nephrology Author Type: Fellow Type: Consult Progress Note Filed: 07/10/2017 7:53 AM Note Text: CONSULT PROGRESS NOTE NEPHROLOGY SERVICE Subjective INTERVAL HISTORY: Seen and examined this morning On nasal cannula 2 L No complaints Stable BP UOP: 1200 ml last 24 hrs -648 ml MEDICATIONS: Current Medications Reviewed Objective PHYSICAL EXAM: BP 130/81 Pulse 104 Temp 36.8 ?C (98.2 ?F) (Oral) Resp 18 Ht 149.9 cm (4' 11) Wt 37.4 kg (82 lb 7.2 oz) SpO2 96% BMI 16.65 kg/m2 Intake/Output Summary (Last 24 hours) at 07/09/17 1525 Last data filed at 07/09/17 1200 Gross per 24 hour Intake 917 ml Output 1325 ml Net -408 ml Constitutional: No acute distress, Thin, Malnourished. Alert, conscious and oriented Neck: Trachea midline No jugular venous distension Cardiovascular: Regular rate and ryhthm, normal S1 and S2, no murmurs, rubs, or gallops No peripheral edema Respiratory: Bilateral equal air entry . Abdomen: Soft, non-tender, non-distended. Normal bowel sounds. No hepatosplenomegaly.. Psychiatric: Awake and interactive DATA: Diagnostic tests reviewed for today's visit: Most recent labs and imaging results. Most recent labs Recent Labs 07/08/17 2232 07/07/17 2343 07/06/17 2258 07/06/17 0105 07/05/17 0403 NA 141 140 136 134* 136 K 3.6* 3.9 3.8 4.5 4.7 CHLOR 105 103 102 102 105 CO2 22 22 18* 17* 15* BUN 53* 59* 59* 53* 60* CREAT 3.43* 3.88* 4.16* 3.76* 3.98* GLUC 93 87 178* 78 59* ANION 14 15 16 15 16 CA 8.3* 7.7* 7.4* 7.3* 7.4* P 4.5 4.0 4.0 4.8 5.2* MG 2.1 2.2 2.3 2.1 2.0 Recent Labs 07/08/17 2232 07/08/17 0646 07/07/17 2343 WBC 10.40 15.75* 15.86* HB 7.7* 8.4* 8.4* HCT 22.4* 24.5* 24.9* PLT 16* 23* 21* Recent Labs 07/04/17 2347 INR 1.0 Recent Labs 04/16/17 0956 01/14/17 1018 09/25/16 0948 COLOR Yellow Yellow Yellow CLARITY Clear Cloudy* Clear UGLUC Negative Negative Negative UBILI Negative Negative Negative UKET Negative Negative Negative SPGR 1.016 1.012 1.011 UHB Negative Negative Negative UPH 5.5 5.0 5.5 UPROT Trace* Negative Trace* NITRITES Negative Negative Negative LEUKEST Negative Negative Negative Recent Labs 07/05/17 2141 07/05/17 1633 07/05/17 1333 PH 7.40 7.33* 7.33* PCO2 31* 33* 34 PO2 155* 138* 70* LACT 0.6 0.6 0.6 Assessment/Plan Ms. Valverde is a 46 year old female with Hx of Gastric cancer diagnosed at age 32 s/p , Layne-en-Y gastrojejunostomy, gastrojejunal ?anastomotic?anastomosis c/b?anastomotic CMV?ulceration and GIB , Hx of Kidney transplant on 2009 d/t radiation for Gastric cancer, Hx of pancreatic insufficiency, Hx of DVT. She presented with severe sepsis in the settings of flu B infection. Also her OSH blood c/s grew strept bacteremia ? JENNIFFER on top of CKD stage 4 in a patient with hx of kidney Tx on 2009. Likely prerenal Non oliguric. Improving Baseline creatinine is around 3-3.4 TX kidney US showed patent vs and no hydronephrosis UA showed no pyuria, +1 Hb, no proteins ? Kidney Tx on 2009 Home IS: tacrolimus 2 mg AM and 1 mg PM, prednisone 5 mg once daily. Off MMF given the hx of CMV infection Current IS: Only prednisone given active infection CMV PCR in blood came back negative ? Associated issues Hypoalbuminemia Malnutrition Euvolemic Acute on top of chronic anemia of CKD Thrombocytopenia: Likely secondary to sepsis. LDH is slightly high but haptoglobin is not consumed ? ? PLAN: Continue supportive measures in the ICU Continue holding MMF and TAC. Keep only on prednisone 5 mg once daily. Will likely resume tacrolimus in 1-2 days Follow platlet count closely and monitor for signs of bleeding Speedy Andre MD, PGY4, Nephrology Fellow Pager [phone] July 09, 2017 3:25 PM Addendum 7:52 AM July 10, 2017 The patient transferred to the floors I resumed her tacrolimus at 1 mg BID Daily levels ordered Speedy Andre MD, PGY4, Nephrology Fellow Pager [phone] July 10, 2017 7:53 AM HISTORY PHYSICAL Observed: 07/09/2017 Status: COMPLETED Source: [place] 2:00 PM [facility] REPOSITORY HNO ID: [id number] Author: Opal Acevedo Service: General Internal Medicine Author Type: Physician Type: HANDP Filed: 07/10/2017 8:47 PM Note Text: ADMISSION NOTE HISTORY AND PHYSICAL EVALUATION DATE: 07/09/2017 EVALUATION TIME: 2:00 PM CHIEF COMPLAINT: Strep pneumonia bacteremia, JENNIFFER HPI: This is a 46 year old, very amicable but frail-appearing and appears older than stated age -origin (but adopted by family) female with PMHx significant for: - Gastric cancer diagnosed at age 32 s/p , Layne-en-Y gastrojejunostomy, gastrojejunal anastomosis c/b?anastomotic CMV ulceration and GIB - chronic anemia - GERD - s/p Kidney transplant 02/21/10 d/t radiation for Gastric cancer (baseline Cr 2.9) on chronic immunosuppression (tacrolimus, mycophenolate, prednisone) - pancreatic insufficiency on the basis of fecal fat was placed on ?pancreatic enzyme - Remote DVT previously on Lovenox - HTN Presented to an OSH ED last with a few days' history of chest pain when breathing and SOB. She denied chest pain on exertion along with coughing prior to presentation and subjective fevers/chills. She says the previous week her was also sick with the flu and pneumonia but did not detail how he was treated. She says at the OSH they got a chest x-ray and diagnosed her with pneumonia. At OSH was tachycardic up to 104, required up to 5 L O2. No leukocytosis. Hgb dropped from 7.9 to 6.7 and she received 1 unit PRBC. Also had thrombocytopenia (platelets 73), JENNIFFER (cr 5.48, baseline 2.9), lactate 2.9, positive strep pneumo. Blood and urine cx grew strep pneumo. CXR showed LLL consolidation and she was given a dose of ceftriaxone and azithromycin. Patient was transferred to [facility] 07/04 due to worsening kidney function and s/p kidney transplant per patient. At [facility] patient was found to be positive for influenza B. Started on tamiflu, azithromycin, and ceftriaxone. CBC notable for WBC 12.72, Hgb 8.0, Plt 23. Patient had hypoxic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 [place] 1:03 PM [facility] REPOSITORY HNO ID: [id number] Author: Krystal Amador (Pharmacist) Service: Pharmacy Author Type: Pharmacist Type: Consult Progress Note Filed: 07/08/2017 1:04 PM Note Text: PHARMACY VANCOMYCIN DOSING NOTE Patient Name: Val Valverde Admission Date: 07/04/2017 Date of Consult: 07/08/2017 Time of Consult: 1:03 PM Indication: Pneumonia Goal Range: 10-20 mcg/mL RECOMMENDATIONS/PLAN: Pharmacy consulted for vancomycin dosing for Val Vlaverde, a 46 year old, female who is being treated with vancomycin for pneumonia. The primary service has discontinued vancomycin therapy. Pharmacy vancomycin dosing service will sign off. Thank you for allowing us to participate in this patient's care. Please contact pharmacy if questions. Krystal Amador, PharmD (Critical Care Pharmacist) [phone] IRON AND TIBC Collected: 07/08/2017 Status: F Source: [place] 10:00 AM [facility] REPOSITORY TYPE CODE TESTS RESULT OUT OF REFERENCE UNITS RANGE LAB IRN 41-186 ug/dL Low Iron 21 LAB TIBC 232-386 ug/dL Low TIBC 84 LAB SAT 15-57 % Transferrin Saturatn 25 Performed By: #### IRON #### [facility] [address] [place], [place] [address] CONSULT PROG Observed: 07/08/2017 Status: COMPLETED Source: [place] 8:41 AM [facility] REPOSITORY HNO ID: [id number] Author: Andrey Hernandez Service: Nephrology Author Type: Physician Type: Consult Progress Note Filed: 07/08/2017 4:56 PM Note Text: CONSULT PROGRESS NOTE NEPHROLOGY SERVICE Subjective INTERVAL HISTORY: Seen and examined this morning Extubated, on nasal cannula 2 L S table BP UOP: 2100 ml last 24 hrs -188 ml MEDICATIONS: Current Medications Reviewed Objective PHYSICAL EXAM: BP 154/85 Pulse 103 Temp 37.3 ?C (99.1 ?F) (Axillary) Resp 21 Ht 149.9 cm (4' 11) Wt 37.5 kg (82 lb 10.8 oz) SpO2 100% BMI 16.7 kg/m2 Intake/Output Summary (Last 24 hours) at 07/08/17 0841 Last data filed at 07/08/17 0600 Gross per 24 hour Intake 1667.7 ml Output 2185 ml Net -517.3 ml Constitutional: No acute distress, Thin, Malnourished. Confused Neck: Trachea midline No jugular venous distension Cardiovascular: Regular rate and ryhthm, normal S1 and S2, no murmurs, rubs, or gallops No peripheral edema Respiratory: Bilateral coarse lung sounds. Abdomen: Soft, non-tender, non-distended. Normal bowel sounds. No hepatosplenomegaly.. Psychiatric: Unable to assess as she is confused DATA: Diagnostic tests reviewed for today's visit: Most recent labs and imaging results. Most recent labs Recent Labs 07/07/17 2343 07/06/17 2258 07/06/17 0105 07/05/17 0403 07/04/17 2347 NA 140 136 134* 136 135* K 3.9 3.8 4.5 4.7 4.5 CHLOR 103 102 102 105 103 CO2 22 18* 17* 15* 17* BUN 59* 59* 53* 60* 57* CREAT 3.88* 4.16* 3.76* 3.98* 4.03* GLUC 87 178* 78 59* 71* ANION 15 16 15 16 15 CA 7.7* 7.4* 7.3* 7.4* 7.4* P 4.0 4.0 4.8 5.2* -- MG 2.2 2.3 2.1 2.0 -- Recent Labs 07/08/17 0646 07/07/17 2343 07/06/17 2258 WBC 15.75* 15.86* 12.72* HB 8.4* 8.4* 8.0* HCT 24.5* 24.9* 23.1* PLT 23* 21* 23* Recent Labs 07/04/17 2347 INR 1.0 Recent Labs 04/16/17 0956 01/14/17 1018 09/25/16 0948 COLOR Yellow Yellow Yellow CLARITY Clear Cloudy* Clear UGLUC Negative Negative Negative UBILI Negative Negative Negative UKET Negative Negative Negative SPGR 1.016 1.012 1.011 UHB Negative Negative Negative UPH 5.5 5.0 5.5 UPROT Trace* Negative Trace* NITRITES Negative Negative Negative LEUKEST Negative Negative Negative Recent Labs 07/05/17 2141 07/05/17 1633 07/05/17 1333 PH 7.40 7.33* 7.33* PCO2 31* 33* 34 PO2 155* 138* 70* LACT 0.6 0.6 0.6 Assessment/Plan Ms. Valverde is a 46 year old female with Hx of Gastric cancer diagnosed at age 32 s/p , Layne-en-Y gastrojejunostomy, gastrojejunal ?anastomotic?anastomosis c/b?anastomotic CMV?ulceration and GIB , Hx of Kidney transplant on 2009 d/t radiation for Gastric cancer, Hx of pancreatic insufficiency, Hx of DVT. She presented with severe sepsis in the settings of flu B infection. Also her OSH blood c/s grew strept bacteremia ? JENNIFFER on top of CKD stage 4 in a patient with hx of kidney Tx on 2009. Non oliguric Baseline creatinine is around 3-3.4 TX kidney US showed patent vs and no hydronephrosis UA not sent Likely prerenal in the settings of sepsis/hypotension. She might also developed ATN on that settings ? Kidney Tx on 2009 Home IS: tacrolimus 2 mg AM and 1 mg PM, prednisone 5 mg once daily. Off MMF given the hx of CMV infection Current IS: Only prednisone given active infection CMV PCR in blood came back negative ? Associated issues Better creatinine today, good UOP Hypoalbuminemia Malnutrition Hypovolemic on exam Acute on top of chronic anemia of CKD Thrombocytopenia: Likely secondary to sepsis. LDH is slightly high but haptoglobin is not consumed ? ? PLAN: No need for HD in the timebeing Continue holding MMF and TAC. Keep only on prednisone 5 mg once daily Follow final results of septic work up Speedy Andre MD, PGY4, Nephrology Fellow Pager [phone] July 08, 2017 8:41 AM I have seen and evaluated the patient. I have reviewed the History, Exam, and Plan as documented by the resident/fellow. The following reflect my findings: agree fully with findings and plan. Extubated, on 2L n/c. Making urine, scr lower. Cont expectant mgmt off IS except pred. Andrey Hernandez MD PROGRESS Observed: 07/08/2017 Status: COMPLETED Source: [place] 7:53 AM [facility] REPOSITORY HNO ID: [id number] Author: Amy Purcell MD Service: Critical Care Author Type: Physician Type: Progress Notes Filed: 07/08/2017 1:48 PM Note Text: SERVICE DATE: 07/08/2017 SERVICE TIME: 7:53 AM No new subjective AND objective note has been filed under this hospital service since the last note was generated. CARE COORDINATION: Pt Summary: 46 year old woman who presents with PMHx gastric cancer s/p near-total gastrectomy, chemo, and radiation in 2000; radiation-induced CKD s/p left kidney transplant 2009 on chronic immunosuppression; HTN; GERD; malnutrition; chronic gastric ulcers; and recent ulcerative GI bleed; who presents from OSH to [facility] with complains of fever, myalgias, shortness of breath transferred to the MICU with hypoxic respiratory failure Major Interval Events: 07/05- Patient started on tamiflu (30 mg q24h) and azithromcyin and ceftriaxone for CAP, tacro 18.8 07/06- Flu B pos, Scr 3.98 --> 3.76, on Azithro/zosyn/vanc/tamiflu. Blood cx NGx1D 07/07- Discontinued propofol, fentanyl; extubated, d/c zosyn, continue tamiflu, azithromax ASSESSMENT AND PLAN Overview, Assessment AND Plan, all Hosp Problems Active Hospital Problems as of 07/08/2017 Noted - Resolved Hospital Pneumonia 07/04/2017 - Present Overview Productive cough, SOB, fevers, tachycardia, worsening infiltrates in CXR compared to OSH imaging Was on ceftriaxone and azithromycin at OSH Lactate is normal Extubated 07/07 Concerns for viral pneumonia with supper imposed strep. Strep pneumo Ag positive at outside hospital Plan: - Currently on azithro, tamiflu, vanc; Discontinued Vanco - Consider CT scan in the setting of immunosuppressed. - Follow Bcx, no growth thus far - RVP negative - O2 to sat > 95% - BPH - Duonebs Current Assessment AND Plan Assessment: Patient has L sided opacity/infiltrate on her chest X-ray, concern for post influenza pneumonia ( PSI score 115 - class IV) PLAN: - Patient to be continued on IV vanco and azithromycin for CAP - F/u blood cultures - F/u Legionella and Mycoplasma results - F/u outside hospital records (already ordered) Kidney transplant recipient 12/04/2015 - Present Overview S/p LURD kidney transplant (from adoptive mother) 02/21/10 now with CKD CMV -/+. SYSTEMS MANAGEMENT CONSULTANT IS: Cellcept, Prednisone and Prograf. Plan: Holding MMF and tacro for now Appreciate transplant nephro Transplant ultrasound Send CMV Gentle IVF as tolerated Current Assessment AND Plan Assessment: Patient on tacrolimus and rednisone PLAN: JENNIFFER could be pre-renal vs graft failure - Resume prednisone - Follow Tk level; hold tacrolimus - CMV DNA levels negative - Recs from transplant team Severe protein-calorie malnutrition (HCC) 02/18/2017 - Present Pancreatic insufficiency 07/05/2017 - Present Overview Started on Creon in clinic after evidence of fat malabsorption She has macrocytic anemia Plan: - Continue creon with meals after extubation, Viokase while NGT - Start Novosource Renal @ 35 cc pending nutrition eval - Nutrition consult Current Assessment AND Plan Assessment: Hx of pancreatic insuffiency PLAN: - patient started on Creon 12 tiD JENNIFFER (acute kidney injury) (HCC) 07/05/2017 - Present Overview JENNIFFER on CKD SCR basline ~ 2.4 In the setting of sepsis, decreased PO intake Plan: Consult transplant nephrology Renally dose meds Strict I/O Daily weight Continue current immunosuppressive medication for now Check Tacrolimus before AM dose 30 - 60 min Current Assessment AND Plan Assessment: Patient has acute on chronic renal failure, possibly secondary to pre-renal causes (NEELA stage 1 -2); may have ATN - sCr 3.88, improving, basleine ~ 3.0 - Improving urine output, 2195 L yesterday PLAN: - Hold tacrolimus, continue prednisone per transplant; get levels daily - Followed by Transplant - Strict I/Os - Renal dose medications Respiratory failure with hypoxia (HCC) 07/05/2017 - Present Overview Patient has new onset hypoxia, with dramatically high oxygen needs, currently requiring FiO2 60% on HFNC, in the background of influenza B infection and strep pneumonia Current Assessment AND Plan Assessment: Improved. Extubated. Maintaining O2 saturation on 2L NC. PLAN: - Continue with target titration to SpO2 > 90% - ContinueTamiflu for Influenza B - Contact and droplet precautions - Antibiotics as below - Duo-Neb q4H PRN Bacteremia, POA: Yes - blood cultures + at OSH on 07/03 for Strep pneumonia - Repeat blood cultures- NG x 3 days - Continue vancomycin Plan of care discussed with: ICU Team, patient SIGNATURE: Rakan Wang DO PATIENT NAME: Val Valverde DATE: July 08, 2017 TIME: 7:53 AM PAGER/CONTACT #: [phone] [facility] STAFF PHYSICIAN NOTE OF PERSONAL INVOLVEMENT IN CARE I have reviewed the history and physical obtained and documented by the resident, and personally interviewed, examined and reviewed records/data/labs/radiographs. I personally participated in the flores components and I agree with the history physical examination, data assessment, diagnosis and plan as outlined except where differences are stated below. I have discussed the case and management of the patient's care. The following comments revise or confirm relevant flores components of the note. IMPRESSION: This 46 yo F with above past medical history in the MICU with hx of gastric cancer s/p layne-en-Y AND radiation, s/p renal transplant. Acute hypoxemic respiratory failure secondary to Influenza B infection/pneumonia ARDS Severe thrombocytopenia ? PLAN: Extubated yesterday Tamiflu for influenza B Follow up with renal transplant - continue tacrolimus as per transplant recommendations Hold DVT ppx due to severe thrombocytopenia Assess swallow evaluation for feeding SIGNATURE: Amy Purcell MD [facility] PAGER:[phone] DATE of SERVICE: July 08, 2017 TIME of SERVICE: 1:43 PM CITRATED PLT COUNT Collected: 07/08/2017 Status: F Source: [place] 6:46 AM [facility] REPOSITORY TYPE CODE TESTS RESULT OUT OF REFERENCE UNITS RANGE LAB PLTCIT 150-400 K/uL Low Citrated Plt 22 Count Result Comment: Result checked and verified No clot detected. Reviewed Sodium Citrate Sample. Performed By: #### CITPLT, STREV #### [facility] [address] [place], [place] [address] STAFF REV W CBCDIF Collected: 07/08/2017 Status: F Source: [place] 6:46 AM [facility] REPOSITORY TYPE CODE TESTS RESULT OUT OF REFERENCE UNITS RANGE LAB WBC 3.70-11.00 k/uL WBC High 15.75 LAB RBC 3.90-5.20 m/uL Low RBC 2.36 LAB HGB 11.5-15.5 g/dL Low Hemoglobin 8.4 LAB HCT 36.0-46.0 % Low Hematocrit 24.5 LAB MCV 80.0-100.0 fL MCV High 103.8 LAB MCH 26.0-34.0 pG MCH High 35.6 LAB MCHC 30.5-36.0 g/dL MCHC 34.3 LAB RDWCV 11.5-15.0 % RDW-CV High 20.0 LAB PLTCT 150-400 k/uL Low Platelet Count 23 Result Comment: Result checked and verified No clot detected. LAB MPV 9.0-12.7 fL <<DO NOT MPV REPORT>> LAB ANEUT % 95.0 Neut% Result Comment: See Staff Review LAB AANEUT 1.45-7.50 k/uL Abs Neut High 14.96 LAB ALYMP % Lymph% 1.0 LAB AALYMP 1.00-4.00 k/uL Abs Lymph Low 0.16 LAB AMONO % [place]% 2.0 LAB AAMONO <0.87 k/uL Abs [place] 0.32 LAB AEOS % Eosin% 1.0 LAB AAEOS <0.46 k/uL Abs Eosin 0.16 LAB ABASO % Baso% 0.0 LAB AABASO <0.11 k/uL Abs Baso 0.00 LAB ABIMMG k/uL ANC(includeSEG+BAND 14.96 ) LAB AMYELO % Myelo% 1.0 LAB ANIIMI Anisocytosis Present LAB LFTIMI Left Shift Present LAB OVAIMI Ovalocytes Few LAB POLIMI Polychromasia Slight LAB RCFIMI RBC Fragments Few LAB DTYP DTYPE Manual Diff LAB SREVW Staff Review SEE COMMENT Result Comment: Macrocytic Anemia Without Hypersegmented PMNs Neutrophilic Leukocytosis with Left Shift Absolute Lymphopenia without Leukopenia Thrombocytopenia LAB SRPATH Pathologist Reviewed by Julian Kelly M.D., Ph.D ([id number]) Performed By: #### CITPLT, STREV #### [facility] [address] [place] [address] NURSING PROG Observed: 07/08/2017 Status: COMPLETED Source: [place] 4:00 AM [facility] REPOSITORY HNO ID: [id number] Author: Lynnette (Rn) DICK Mc Service: (none) Author Type: Registered Nurse Type: Nursing Progress Note Filed: 07/08/2017 4:03 AM Note Text: Nursing Progress: Topic: RESTRAINT NON-VIOLENT PATIENT NAME: Val Valverde PATIENT LOCATION: [place] [address] The patient demonstrates Attempting to Remove Medical Devices Vital to Medical Stability, Confusion, Impulsive Behavior, Inability to be Redirected as evidenced by the following behaviors impulsiveness, pulling at tubes, wires with inability to be redirected which pose an imminent danger to self or others. The following interventions were attempted but were not effective in protecting the patient's safety: Alarms, Call Light Within Reach, Bed in Low/Locked Position, Modify Environment, Modify Equipment, Re-Orientation Methods Next, a comprehensive assessment was performed and warranted placing the patient in Mitt Left, Mitt Right, the least restrictive restraint needed to protect the patient's safety. Ongoing safety assessments and evaluation for earliest removal of restraints will be performed. DATE: July 08, 2017 TIME: 4:03 AM Lynnette Mc RN VANCOMYCIN Collected: 07/07/2017 Status: F Source: [place] 11:43 PM [facility] REPOSITORY TYPE CODE TESTS RESULT OUT OF REFERENCE UNITS RANGE LAB VANCRA 5.0-20.0 ug/mL High Vancomycin 25.6 Result Comment: Reference ranges and high/low indicator flags are provided as general guidelines only. The treating physician must determine appropriate target levels/dosing based on the specific clinical situation. Performed By: #### VANCRA, CMP, MG1, PHOS, LD6, CBCDIF #### [facility] [address] [place], [place] [address] COMP METABOLIC PANEL Collected: 07/07/2017 Status: F Source: [place] 11:43 PM [facility] REPOSITORY TYPE CODE TESTS RESULT OUT OF REFERENCE UNITS RANGE LAB TP 6.3-8.0 g/dL Low Protein, Total 4.9 LAB ALB 3.9-4.9 g/dL Low Albumin 1.5 LAB CA 8.5-10.2 mg/dL Low Calcium, Total 7.7 LAB TBIL 0.2-1.3 mg/dL Bilirubin, Total 0.6 LAB ALKP 32-117 U/L Alkaline Phosphatase 114 LAB AST 13-35 U/L AST High 36 LAB GLU 74-99 mg/dL Glucose 87 Result Comment: The [place] Diabetes Association (ADA) provides guidance for cutoff values for fasting glucose and random glucose. The ADA defines fasting as no caloric intake for at least 8 hours. Fas ting plasma glucose results between 100 to 125 mg/dL indicate increased risk for diabetes (prediabetes). Fasting plasma glucose results greater than or equal to 126 mg/dL meet the criteria for diagnosis of diabetes. In the absence of unequivocal hyperglycemia, results should be confirmed by repeat testing. In a patient with classic symptoms of hyperglycemia or hyperglycemic crisis, random plasma glucose results greater than or equal to 200 mg/dL meet the criteria for diagnosis of diabetes. Reference: Standards of Medical Care in Diabetes 2016, [place] [employer] Association. Diabetes Care. 2016.39(Suppl 1). LAB BUN 7-21 mg/dL BUN High 59 LAB CRET 0.58-0.96 mg/dL Creatinine High 3.88 LAB NA 136-144 mmol/L Sodium 140 LAB K 3.7-5.1 mmol/L Potassium 3.9 LAB CL 97-105 mmol/L Chloride 103 LAB CO2 22-30 mmol/L CO2 22 LAB AGAP 9-18 mmol/L Anion Gap 15 LAB ALT 7-38 U/L ALT 26 LAB GFRAA eGFR- Amer. 15 LAB GFRNAA . eGFR-All Other Races 13 Result Comment: eGFR (Estimated GFR) Units of measure: mL/min/1.73 meters squared eGFR is derived from the reexpressed MDRD Study equation using the following parameters: serum creatinine, age, gender and race. The creatinine assay has been calibrated to be traceable to IDMS. An eGFR <60 mL/min/1.73m2 for >3 months is consistent with chronic kidney disease. Refer to KDOQI guidelines for clinical interpretation. In patients with unstable renal function, e.g. those with acute kidney injury, the eGFR may not accurately reflect actual GFR. Performed By: #### VANCRA, CMP, MG1, PHOS, LD6, CBCDIF #### [facility] [address] [place] [address] MAGNESIUM Collected: 07/07/2017 Status: F Source: [place] 11:43 PM [facility] REPOSITORY TYPE CODE TESTS RESULT OUT OF REFERENCE UNITS RANGE LAB MG 1.7-2.3 mg/dL Magnesium 2.2 Performed By: #### DEVI, CMP, MG1, PHOS, LD6, CBCDIF #### [facility] [address] [place] [address] PHOSPHORUS Collected: 07/07/2017 Status: F Source: [place] 11:43 PM [facility] REPOSITORY TYPE CODE TESTS RESULT OUT OF REFERENCE UNITS RANGE LAB PHOS 2.7-4.8 mg/dL Phosphorus 4.0 Performed By: #### DEVI, CMP, MG1, PHOS, LD6, CBCDIF #### [facility] [address] [place] [address] LD Collected: 07/07/2017 Status: F Source: [facility] 11:43 PM [facility] REPOSITORY TYPE CODE TESTS RESULT OUT OF RANGE REFERENCE UNITS LAB LD 135-214 U/L High LD 345 Performed By: #### DEVI, CMP, MG1, PHOS, LD6, CBCDIF #### [facility] [address] [place] [address] CBC AND DIFFERENTIAL Collected: 07/07/2017 Status: F Source: [place] 11:43 [facility] REPOSITORY TYPE CODE TESTS RESULT OUT OF REFERENCE UNITS RANGE LAB WBC 3.70-11.00 k/uL WBC High 15.86 LAB RBC 3.90-5.20 m/uL Low RBC 2.39 LAB HGB 11.5-15.5 g/dL Low Hemoglobin 8.4 LAB HCT 36.0-46.0 % Low Hematocrit 24.9 LAB MCV 80.0-100.0 fL MCV High 104.2 LAB MCH 26.0-34.0 pG MCH High 35.1 LAB MCHC 30.5-36.0 g/dL MCHC 33.7 LAB RDWCV 11.5-15.0 % RDW-CV High 19.9 LAB PLTCT 150-400 k/uL Low Platelet Count 21 Result Comment: Result checked and verified No clot detected. LAB MPV 9.0-12.7 fL MPV 13.4 High LAB ANEUT % Neut% 96.5 LAB AANEUT 1.45-7.50 k/uL Abs Neut 15.30 High LAB ALYMP % Lymph% 2.6 LAB AALYMP 1.00-4.00 k/uL Abs Lymph 0.41 Low LAB AMONO % [place]% 0.9 LAB AAMONO <0.87 k/uL Abs [place] 0.14 LAB AEOS % Eosin% 0.0 LAB AAEOS <0.46 k/uL Abs Eosin 0.00 LAB ABASO % Baso% 0.0 LAB AABASO <0.11 k/uL Abs Baso 0.00 LAB ANIIMI Anisocytosis Present LAB RCFIMI RBC Fragments Few LAB PLTEST Platelet Estimate Platelet estimate decreased LAB DTYP DTYPE Manual Diff Performed By: #### VANCRA, CMP, MG1, PHOS, LD6, CBCDIF #### [facility] [address] [place], [place] [address] XR ABDOMEN 1V SUPINE Observed: 07/07/2017 Status: F Source: [place] 8:17 PM [facility] REPOSITORY * * *Final Report* * * DATE OF EXAM: Jul 07 2017 8:17PM KISH[facility] [id number] - XR ABDOMEN 1V SUPINE / PROCEDURE REASON: Nasogastric tube present * * * * Physician Interpretation * * * * ABDOMEN SINGLE VIEW CLINICAL INFORMATION: Evaluate nasogastric tube placement in patient with partial gastrectomy for gastric cancer. TECHNIQUE: A single view of the abdomen was obtained. Number of images: 1 with post processing COMPARISON: None RESULT: See impression. IMPRESSION: Field of view: Lower pelvis is excluded from the [id number]. Lines and tubes: Nasogastric tube tip lies in the left upper abdomen adjacent to suture material, likely within the residual gastric body just proximal to the GJ junction. Small amount of enteric contrast within the gastric body. Bowel: Small bowel loops are normal caliber with no wall thickening. Other: Pelvic surgical clips present. Culinary Assistant: NELIA Transcribe Date/Time: Jul 07 2017 11:51P Dictated by : CORTNEY BRYAN MD This examination was interpreted and the report reviewed and electronically signed by: CORTNEY BRYAN MD on Jul 07 2017 11:55PM EST [id number] Collected: 07/07/2017 Status: F Source: [place] 4:22 PM [facility] REPOSITORY TYPE CODE TESTS RESULT OUT OF REFERENCE UNITS RANGE LAB FIBCT 200-400 mg/dL High Fibrinogen 704 Result Comment: Sample checked for a clot. Performed By: #### FIBCT, HAPTO, PLATF4 #### [facility] [address] [place] [id number] HAPTOGLOBIN Collected: 07/07/2017 Status: F Source: [place] 4:22 PM [facility] REPOSITORY TYPE CODE TESTS RESULT OUT OF REFERENCE UNITS RANGE LAB HAPTO 31-238 mg/dL Haptoglobin 175 Performed By: #### FIBCT, HAPTO, PLATF4 #### [facility] [address] [place] [address] ANTI PLT FACTOR 4 Collected: 07/07/2017 Status: F Source: [place] AB 4:22 PM [facility] REPOSITORY TYPE CODE TESTS RESULT OUT OF REFERENCE UNITS RANGE LAB PF4COM Plasma+PF4 0.130 Complex Result Comment: OD < 0.400 is negative LAB PF4HI Plas+PF4 Hi Dose Hep 0.116 LAB INHIB % Inhibition Not calculated LAB PF4INT Interpretation Negative Result Comment: No anti-platelet factor 4 IgG antibody is detected by ABELARDO assay. Heparin-induced thrombocytopenia (HIT) is unlikely, but should be excluded based on clinical factors. LAB PF4REV Anti-PF4 Test Not Review Indicated Performed By: #### FIBCT, HAPTO, PLATF4 #### [facility] [address] [place], [place] [address] URINALYSIS WITH Collected: 07/07/2017 Status: F Source: [place] MICROSCOPIC 3:07 PM [facility] REPOSITORY TYPE CODE TESTS RESULT OUT OF RANGE REFERENCE UNITS LAB UCOL Yellow Color Yellow LAB [facility] Clear Clarity Clear LAB UGLUC Negative mg/dL Glucose, Urine Negative LAB UBIL Negative Bilirubin, Urine Negative LAB UKET Negative Ketones, Urine Negative LAB USPG 1.005-1.030 Specific [place], Ur 1.005 LAB UHGB Negative Abnormal Hemoglobin/Blood, 1+ Alert Ur LAB UPH 4.5-8.0 pH 5.0 LAB UPROT Negative mg/dL Protein, Urine Negative LAB UUROB Normal Urobilinogen Normal LAB UNITR Negative Nitrites Negative LAB ULKEST Negative Leukest Negative LAB UCOM Comments SEE COMMENT Result Comment: N/A LAB UMCOM Urine SEE Louie Comment COMMENT Result Comment: N/A LAB UWBC 0-5 /HPF WBC 0-5 LAB URBC 0-3 /HPF RBC 0-3 Performed By: #### UAWMIC #### [facility] [address] [place], [place] [address] CONSULT PROG Observed: 07/07/2017 Status: COMPLETED Source: [place] 1:59 PM [facility] REPOSITORY HNO ID: [id number] Author: Christiano Ryan (Pharmacist) Service: Pharmacy Author Type: Pharmacist Type: Consult Progress Note Filed: 07/07/2017 2:01 PM Note Text: PHARMACY VANCOMYCIN DOSING NOTE Patient Name: Val Valverde Admission Date: 07/04/2017 Date of Consult: 07/07/2017 Time of Consult: 1:59 PM Indication: Pneumonia Goal Range: 10-20 mcg/mL RECOMMENDATIONS/PLAN: Pharmacy consulted for vancomycin dosing for Val Valverde, a 46 year old, female who is being treated with vancomycin for pneumonia. 1. Patient is currently ordered Vancomycin dosed by level. Today is day 3 of therapy. 2. The most recent vancomycin level was 31.7 mcg/mL drawn at 2258 on 07/06/17. This is a 12 hour level following 500mg q24h for 2 doses. 3. Vancomycin level above therapeutic goal range. Continue to hold further vancomycin IV doses. 4. The next vancomycin level will be ordered for 07/08/17 with AM labs unless clinically indicated sooner. (Pharmacy will order) We will follow patient renal function, vancomycin levels and doses with you during the course of therapy. Additional recommendations will appear in follow up notes. If you have any questions, please contact Christiano Ryan PharmD at pager [phone]. Age: [age] year old Allergies: ALLERGIES Allergen Reactions - Sulfa (Sulfonamide * Hives hives - Nsaids (Non-Steroid* Intolerance Last 3 Encounter Wt Readings: Date: Wt: 07/04/2017 35.3 kg (77 lb 13.2 oz) 06/30/2017 32.7 kg (72 lb) 06/23/2017 32.2 kg (71 lb) Last 1 Encounter Ht Readings: Date: Ht: 07/04/2017 149.9 cm (4' 11) CrCl: 9.5 mL/min Temp (24hrs), Av.2 ?C (99 ?F), Min:36.9 ?C (98.5 ?F), Max:37.6 ?C (99.6 ?F) - Current Temp: 37.3 ?C (99.1 ?F) Labs BUN (mg/dL) Date Value 07/06/2017 59 (H) 07/06/2017 53 (H) 07/05/2017 60 (H) Creatinine (mg/dL) Date Value 07/06/2017 4.16 (H) 07/06/2017 3.76 (H) 07/05/2017 3.98 (H) WBC (k/uL) Date Value 07/06/2017 12.72 (H) 07/06/2017 13.02 (H) 07/05/2017 12.08 (H) Vancomycin Levels: Vancomycin, result (ug/mL) Date Value 07/06/2017 31.7 (H) 02/20/2017 17.8 Teresa Cason PROGRESS Observed: 07/07/2017 Status: COMPLETED Source: [place] 1:15 PM [facility] REPOSITORY O ID: [id number] Author: Amy Purcell MD Service: Critical Care Author Type: Physician Type: Progress Notes Filed: 07/07/2017 2:15 PM Note Text: SERVICE DATE: 07/07/2017 SERVICE TIME: 1:15 PM MICU PROGRESS NOTE Admission Date: 07/04/2017 Hospital Day # 3 SUBJECTIVE Interval HPI: Improved - Remains afebrile, no leukocytosis, hemodynamically stable - Propofol and fentanyl discontinued this morning; waxing and waning in alertness but able to follow commands intermitently - Extubated this morning, able to maintain O2 saturation on 2L NC - Platelets 23, baseline <50 K - currently on heparin gtt and zosyn which may be contributing? OBJECTIVE Vital Signs (last filed) Range in last 24h Temp: 37.3 ?C (99.1 ?F) (07/07/17 1200) Temp Min: 36.9 ?C (98.5 ?F) Max: 37.6 ?C (99.6 ?F) Pulse: 106 (07/07/17 1200) Pulse Min: 99 Max: 122 Resp: 18 (07/06/17 1700) Resp Min: 15 Max: 22 BP: 106/69 (07/07/17 1200) BP Min: 94/61 Max: 125/78 MAP Non Invasive (Mean Arterial Pressure): 83 (07/07/17 1200) MAP Non Invasive (Mean Arterial Pressure) Min: 73 Max: 96 No Data Recorded SpO2: 97 % (07/07/17 1200) SpO2 Min: 94 % Max: 99 % Pain Score: 0/10 (07/07/17 1200) Fluid Balance: Intake/Output Summary (Last 24 hours) at 07/07/17 0659 Last data filed at 07/07/17 0600 Gross per 24 hour Intake 1524 ml Output 1270 ml Net 254 ml Last Weight: 35.3 kg (77 lb 13.2 oz) (07/07/17 0000) Admit Weight: 34.2 kg (75 lb 6.4 oz) (07/05/17 0300) DIET TUBE FEED - CONTIN (NO TRAY) Lines, Drains, and Airways Line Peripheral Admission to Hospital Left Antecubital 20 Gauge -- days Peripheral 07/04/17 2330 Left Forearm 18 Gauge 2 days Drain Indwelling Urinary Catheter 07/05/17 1101 Assessment Temperature Monitoring 16 Fr 2 days GI Feed/Drain 07/05/17 1404 Nasogastric Right Naris 1 day Vent/Oxygen: Supplemental Oxygen: Yes. 2L NC %FIO2 Min: 30 Max: 30 Physical Examination Performed Oral Mucosa: Dry mucous membranes Eyes: PERRL Cardiovascular: Regular rhythm Respiratory: Clear to auscultation Abdomen: Soft and Nontender Extremities: Edema- No Peripheral Pulses- Present all extremities Skin: Abnormalities- No Breakdown- No Neurologic: Alert and Moving all extremities Infusion Medications propofol infusion Last Rate: Stopped (07/07/17 0815) Diagnostic tests reviewed today: Most recent labs and imaging results. ? PATIENT CHECKLIST ? Are restraints necessary: No ? Deep vein thrombosis prophylaxis administered? SCDs, heparin d/c due low plts ? Stress ulcer prophylaxis? Yes ? Nasogastric tube? Yes ? Bethea catheter necessary? Yes ? Is central line essential? No ? Plan discussed with assigned RN? Yes ? Family updated within last 24 hours? Yes CARE COORDINATION: Pt Summary: 46 year old woman who presents with PMHx gastric cancer s/p near-total gastrectomy, chemo, and radiation in 2000; radiation-induced CKD s/p left kidney transplant 2009 on chronic immunosuppression; HTN; GERD; malnutrition; chronic gastric ulcers; and recent ulcerative GI bleed; who presents from OSH to [facility] with complains of fever, myalgias, shortness of breath transferred to the MICU with hypoxic respiratory failure Major Interval Events: 07/05- Patient started on tamiflu (30 mg q24h) and azithromcyin and ceftriaxone for CAP, tacro 18.8 07/06- Flu B pos, Scr 3.98 --> 3.76, on Azithro/zosyn/vanc/tamiflu. Blood cx NGx1D 07/07- Discontinued propofol, fentanyl; extubated, d/c zosyn, continue tamiflu, azithromax ASSESSMENT AND PLAN Overview, Assessment AND Plan, all Hosp Problems Active Hospital Problems as of 07/07/2017 Noted - Resolved Hospital Pneumonia 07/04/2017 - Present Overview Productive cough, SOB, fevers, tachycardia, worsening infiltrates in CXR compared to OSH imaging Was on ceftriaxone and azithromycin at OSH Lactate is normal Extubated 07/07 Concerns for viral pneumonia with supper imposed strep. Plan: - Currently on azithro, tamiflu, vanc; Discontinued Vanco - Consider CT scan in the setting of immunosuppressed. - Follow Bcx, no growth thus far - RVP negative - O2 to sat > 95% - BPH - Duonebs Current Assessment AND Plan Assessment: Patient has L sided opacity/infiltrate on her chest X-ray, concern for post influenza pneumonia ( PSI score 115 - class IV) PLAN: - Patient to be started on IV ceftriaxone and azithromycin for CAP - F/u blood cultures - Lactate 0.8 no concern for sepsis - F/u RVP results Kidney transplant recipient 12/04/2015 - Present Overview S/p LURD kidney transplant (from adoptive mother) 02/21/10 now with CKD CMV -/+. SYSTEMS MANAGEMENT CONSULTANT IS: Cellcept, Prednisone and Prograf. Plan: Holding MMF and tacro for now Appreciate transplant nephro Transplant ultrasound Send CMV Gentle IVF as tolerated Current Assessment AND Plan Assessment: Patient on tacrolimus and rednisone PLAN: JENNIFFER could be pre-renal vs graft failure - Resume prednisone - Follow Tk level; hold tacrolimus - F/u CMV DNA levels - Recs from transplant team Severe protein-calorie malnutrition (HCC) 02/18/2017 - Present Pancreatic insufficiency 07/05/2017 - Present Overview Started on Creon in clinic after evidence of fat malabsorption She has macrocytic anemia Plan: - Continue creon with meals after extubation, Viokase while NGT - Start Novosource Renal @ 35 cc pending nutrition eval - Nutrition consult Current Assessment AND Plan Assessment: Hx of pancreatic insuffiency PLAN: - patient started on Creon 12 tiD JENNIFFER (acute kidney injury) ([facility]) 07/05/2017 - Present Overview JENNIFFER on CKD SCR basline ~ 2.4 In the setting of sepsis, decreased PO intake Plan: Consult transplant nephrology Renally dose meds Strict I/O Daily weight Continue current immunosuppressive medication for now Check Tacrolimus before AM dose 30 - 60 min Current Assessment AND Plan Assessment: Patient has acute on chronic renal failure, possibly secondary to pre-renal causes (NEELA stage 1 -2); may have ATN - sCr 4.16, basleine ~ 3.0 - Oliguric PLAN: - Hold tacrolimus; get levels daily - Followed by Transplant - Strict I/Os - Renal dose medications = Respiratory failure with hypoxia ([facility]) 07/05/2017 - Present Overview Patient has new onset hypoxia, with dramatically high oxygen needs, currently requiring FiO2 60% on HFNC, in the background of influenza B infection Current Assessment AND Plan Assessment: Improved. Extubated. PLAN: - Continue with target titration to SpO2 > 90% - Start Tamiflu for Influenza B treatments - Contact and droplet precautions - Antibiotics as below - Duo-Neb q4H PRN Plan of care discussed with: ICU Team SIGNATURE: Rakan Wang DO PATIENT NAME: Val Valverde DATE: July 07, 2017 TIME: 1:15 PM PAGER/CONTACT #: [phone] [facility] STAFF PHYSICIAN NOTE OF PERSONAL INVOLVEMENT IN CARE I have reviewed the history and physical obtained and documented by the resident, and personally interviewed, examined and reviewed records/data/labs/radiographs. I personally participated in the flores components and I agree with the history physical examination, data assessment, diagnosis and plan as outlined except where differences are stated below. I have discussed the case and management of the patient's care. The following comments revise or confirm relevant flores components of the note. IMPRESSION: This 46 yo F with above past medical history in the MICU with hx of gastric cancer s/p layne-en-Y AND radiation, s/p renal transplant. Acute hypoxemic respiratory failure secondary to Influenza B infection/pneumonia ARDS Severe thrombocytopenia PLAN: Propofol and fentanyl discontinued this AM - patient is following commands Wean to extubate this AM Work up thrombocytopenia Tamiflu for influenza B Holding tacrolimus due to elevated FK level - on prednisone- being followed by Renal transplant Hold DVT ppx due to severe thrombocytopenia This patient has a high probability of sudden, clinically significant deterioration, which requires the highest level of physician preparedness to intervene urgently. I managed/supervised life or organ supporting interventions that required frequent physician assessment. I devoted my full attention to the direct care of this patient for the amount of time indicated below. Time I spent with family or surrogate(s) is included only if the patient was incapable of providing the necessary information or participating in medical decision making. Time devoted to teaching and to any procedures I billed separately is not included. Critical Care Documentation: The patient has the following organ/system impairment(s): Respiratory failure (Acute, with Hypoxemia) Time spent providing critical care services: 33 minutes. SIGNATURE: Amy Purcell MD [facility] PAGER:[phone] DATE of SERVICE: July 07, 2017 TIME of SERVICE: 2:05 PM 12 LEAD ELECTROCARDIOGRAM Observed: 07/07/2017 Status: F Source: [place] 1:00 PM [facility] [place] [facility] Cardiovascular Services [address] [place] [id number] 12 Lead EKG 07/03/17 1211 MR#: [id number] Acct: [id number] Name: VAL VALVERDE Rep #: [id number] : 1970 46 From: Humberot Fraser MD Attending Dr: Dionte Hutchison DO Status: DIS IN Ordering Dr: Osei Wade MD Date: 07/03/17 Location: PCU Sex: F A Admitted: 07/03/17 Test Reason : SOB Blood Pressure : / mmHG Vent. Rate : 091 BPM Atrial Rate : 091 BPM P-R Int : 124 ms QRS Dur : 080 ms QT Int : 408 ms P-R-T Axes : 054 070 057 degrees QTc Int : 501 ms Normal sinus rhythm Prolonged QT Abnormal ECG Confirmed by BRADY CASTRO, HUMBERTO ([id number]), senior technical editor HUANG BRENNAN ([id number]) on 07/07/2017 12:59:58 PM Referred By: JESSIE Confirmed By:HUMBERTO FRASER MD 07/07/17 1300 Date Humberto Fraser MD CC: Wil To MD; Osei Wade MD Signed CONSULT PROG Observed: 07/07/2017 Status: COMPLETED Source: [place] 11:16 AM [facility] REPOSITORY HNO ID: [id number] Author: Andrey Hernandez Service: Nephrology Author Type: Physician Type: Consult Progress Note Filed: 07/07/2017 4:03 PM Note Text: CONSULT PROGRESS NOTE NEPHROLOGY SERVICE Subjective INTERVAL HISTORY: Seen and examined this morning Soft BP UOP: 1270 ml last 24 hrs +254 ml MEDICATIONS: Current Medications Reviewed Objective PHYSICAL EXAM: BP 105/70 Pulse 109 Temp 37.6 ?C (99.6 ?F) (Oral) Resp 18 Ht 149.9 cm (4' 11) Wt 35.3 kg (77 lb 13.2 oz) SpO2 96% BMI 15.72 kg/m2 Intake/Output Summary (Last 24 hours) at 07/07/17 1117 Last data filed at 07/07/17 1000 Gross per 24 hour Intake 1732.5 ml Output 1220 ml Net 512.5 ml Constitutional: No acute distress, Thin, Malnourished, intubated. On mech vent. Awake but not much interactive Neck: Trachea midline No jugular venous distension Cardiovascular: Regular rate and ryhthm, normal S1 and S2, no murmurs, rubs, or gallops No peripheral edema Respiratory: Bilateral coarse lung sounds. On mech vent Abdomen: Soft, non-tender, non-distended. Normal bowel sounds. No hepatosplenomegaly. Musculoskeletal: No clubbing or cyanosis of digits. and Normocephalic. Psychiatric: Unable to assess as she is sedated and intubated DATA: Diagnostic tests reviewed for today's visit: Most recent labs and imaging results. Most recent labs Recent Labs 07/06/178 07/06/17 0105 07/05/17 0403 07/04/17 2347 NA 136 134* 136 135* K 3.8 4.5 4.7 4.5 CHLOR 102 102 105 103 CO2 18* 17* 15* 17* BUN 59* 53* 60* 57* CREAT 4.16* 3.76* 3.98* 4.03* GLUC 178* 78 59* 71* ANION 16 15 16 15 CA 7.4* 7.3* 7.4* 7.4* P 4.0 4.8 5.2* -- MG 2.3 2.1 2.0 -- Recent Labs 07/06/17225707/06/17 0105 07/05/17 0403 WBC 12.72* 13.02* 12.08* HB 8.0* 8.5* 8.4* HCT 23.1* 24.9* 24.2* PLT 23* 27* 35* Recent Labs 07/04/17 2347 INR 1.0 Recent Labs 04/16/17 0956 01/14/17 1018 09/25/16 0948 COLOR Yellow Yellow Yellow CLARITY Clear Cloudy* Clear UGLUC Negative Negative Negative UBILI Negative Negative Negative UKET Negative Negative Negative SPGR 1.016 1.012 1.011 UHB Negative Negative Negative UPH 5.5 5.0 5.5 UPROT Trace* Negative Trace* NITRITES Negative Negative Negative LEUKEST Negative Negative Negative Recent Labs 07/05/17 2141 07/05/17 1633 07/05/17 1333 PH 7.40 7.33* 7.33* PCO2 31* 33* 34 PO2 155* 138* 70* LACT 0.6 0.6 0.6 Assessment/Plan Ms. Valverde is a 46 year old female with Hx of Gastric cancer diagnosed at age 32 s/p , Layne-en-Y gastrojejunostomy, gastrojejunal ?anastomotic?anastomosis c/b?anastomotic CMV?ulceration and GIB , Hx of Kidney transplant on 2009 d/t radiation for Gastric cancer, Hx of pancreatic insufficiency, Hx of DVT. She presented with severe sepsis in the settings of flu B infection ? JENNIFFER on top of CKD stage 4 in a patient with hx of kidney Tx on 2009. Non oliguric Baseline creatinine is around 3-3.4 TX kidney US showed patent vs and no hydronephrosis UA not sent Likely prerenal in the settings of sepsis/hypotension. She might also developed ATN on that settings ? Kidney Tx on 2009 Home IS: tacrolimus 2 mg AM and 1 mg PM, prednisone 5 mg once daily. Off MMF given the hx of CMV infection Current IS: Only prednisone given active infection CMV PCR in blood came back negative ? Associated issues No improvement in kidney function. In fact slightly worsening today (TAc level was high, might be contributing) AG acidosis Hypoalbuminemia Malnutrition Hypovolemic on exam Acute on top of chronic anemia of CKD Thrombocytopenia: Likely secondary to sepsis but need to r/o MAHA ? ? PLAN: No need for HD in the timebeing Continue holding MMF and TAC. Keep only on prednisone 5 mg once daily Please stop amlodipine in the settings of being hypotensive Please send for LDH, peripheral smear and haptoglobin Follow final results of septic work up Speedy Andre MD, PGY4, Nephrology Fellow Pager [phone] July 07, 2017 2:43 PM I have seen and evaluated the patient. I have reviewed the History, Exam, and Plan as documented by the resident/fellow. The following reflect my findings: agree fully with findings and plan. Allow tac level to fall and achieve modest positive I/O balance with obligate intake and no diuretics and observe renal response. Cont hold tac/mmf for critical illness/infection, pred only (BPs ok, not on pressors, so no need for stress dose). Andrey Hernandez MD TACROLIMUS / [id number] Collected: 07/07/2017 Status: F Source: [place] 10:47 AM [facility] REPOSITORY TYPE CODE TESTS RESULT OUT OF REFERENCE UNITS RANGE LAB FK506 5.0-20.0 ng/mL Low Tacrolimus / 4.8 FK506 Result Comment: These reference ranges are provided as a general recommendation. Individualized target levels for a given patient will depend on many factors (including the type of organ transplant, ti me since transplantation, concurrent medications, and other clinical factors), and should be assessed by those health care providers experienced in the management of immunosuppression. Reference ranges and high/low indicator flags are provided as general guidelines only. The treating physician must determine appropriate target levels/dosing based on the specific clinical situation. Test performed by chemiluminescent immunoassay using [facility]. Performed By: #### FK506 #### [facility] [address] [place], [place] [address] CASE MGT INIT Observed: 07/07/2017 Status: COMPLETED Source: [place]ISE ZUÑIGA 9:50 AM [facility] REPOSITORY HNO ID: [id number] Author: Bryant BoggsRn) DICK Blackburn Service: Care Management Author Type: Registered Nurse Type: Care Mgt Initial Assessment Filed: 07/07/2017 2:02 PM Note Text: CARE MANAGEMENT: ASSESSMENT AND DISCHARGE PLAN SERVICE DATE: 07/07/2017 SERVICE TIME: 9:50 AM PRIMARY CARE PHYSICIAN: WIL TO MD ADMISSION STATUS: Inpatient POTENTIAL DISCHARGE PLANS Home Home Care Custodial Acute [facility] Facility/Intermediate Care Facility To Be Determined Patient/Senior Advisory Stated Goals: TBD Intubated and Sedated / Remainder of information obtained from chart review and spouse Needs Prior to Discharge: To Be Determined Health Insurance: [employer] Living Arrangement: Home Lives With: Family Financial Resources: Unemployed Primary Contact: Extended Emergency Contact Information Primary Emergency Contact: Medardo Valverde Address: [address] [place] [address] Mobile Relation: Spouse Supportive: Yes Other Important Patient Contacts: None CAREGIVER ASSESSMENT: Caregiver is ready, willing and able to meet the patient's needs as recommended by the inter-professional team? No Caregiver Needed Patient's transition needs and plan for meeting these needs: Outpatient follow-up Does the patient have an acute stroke diagnosis, or has the patient had a stroke during this admission? No ADVANCE DIRECTIVES: Does Patient Have Advance Directives? No, Patient refused Does Patient Have Concerns About Advance Directives? No PRIOR TO ADMISSION: Baseline Mental Status: Alert AND Oriented, Person, Place , Time and Situation Functional Status: Independent Does Patient Currently Receive Any Community Services or Home Care? None Equipment Prior to Admission: None HEALTH: Health Issues Impacting Discharge Plan: hypoxic respiratory failure Health Literacy Issues: No PSYCHOSOCIAL: Is the Patient Psychosocially Complex? No Family/Patient Understanding of Illness/Diagnosis: Yes Medication Adherence: Do you forget to take your medications? I do not forget to take my medication Have you ever stopped taking medications because you felt worse? None of the time Have you ever taken less of your medication than what was prescribed by your doctor? None of the time In the past 3 months, have you had issues obtaining one or more of your medications? None of the time Are you interested in bedside delivery of your medications? No Food Concerns: In the Last Month, Have You had Trouble Getting Food? No trouble getting food During the Last Month, Have You Worried Whether Your Food Would Run Out Before You Had Enough Money to Buy More? No Psychosocial Needs: None UTILIZATION: Last Admission Date: Previous admit date: 02/17/2017 Is this Within the Past 30 days? No Has the Patient Been in a Retirement Facility in the Past 30 days? No FREEDOM OF CHOICE EXPLAINED: Yes Patient HANDOFF COMMUNICATION: NA Per EMR: 46 year old female with past medical history of gastric carcinoma s/p radical near total gastrectomy with Layne-en-Y gastrojejunostomy in 2000 followed by radiotherapy, c/b radiation induced renal failure s/p living donor renal transplant in 2009 currently on chronic immunosuppression (tacrolimus, mycophenolate, prednisone). Patient transferred to the MICU for increased oxygen requirements requiring 60% on HFNC. Patient is currently intubated and Sedated. CM will follow medical course and plan discharge accordingly. SIGNATURE: Bryant Blackburn RN PATIENT NAME: Val Valverde DATE: July 07, 2017 TIME: 9:50 AM PAGER/CONTACT #: [phone] ALLIED HEALTH Observed: 07/07/2017 Status: COMPLETED Source: [place] 7:55 AM [facility] REPOSITORY [facility] ID: [id number] Author: Rhonda Cagle RN Service: Infection Prevention Author Type: Registered Nurse Type: Allied Health Filed: 07/07/2017 8:12 AM Note Text: ISOLATION NOTE Admission Date: 07/04/2017 Type of Isolation Recommended: Droplet Precautions (Green Isolation Sign) Indication: Influenza Date Isolation Initiated: 07/05/2017 Anticipated Duration of Isolation: In consultation with Infection Prevention Type and Date of Positive Test(s): Positive for Influenza B virus by PCR 07/05/2017 SIGNATURE: Rhonda Cagle RN MSN PATIENT NAME: Val Valverde DATE: July 07, 2017 TIME: 7:56 AM PAGER/CONTACT #: [phone] Infection Prevention after hours/weekend pager: [phone] NURSING PROG Observed: 07/07/2017 Status: COMPLETED Source: [place] 4:00 AM [facility] REPOSITORY HNO ID: [id number] Author: Marilou (Dick) DICK Weiss Service: Nursing Author Type: Registered Nurse Type: Nursing Progress Note Filed: 07/07/2017 4:18 AM Note Text: Nursing Progress: Topic: RESTRAINT NON-VIOLENT PATIENT NAME: Val Valverde PATIENT LOCATION: [place] [address] The patient demonstrates Attempting to Remove Medical Devices Vital to Medical Stability, Inability to be Redirected, Inability to Retain Information Regarding Safety Directions as evidenced by the following behaviors reaching for ett which pose an imminent danger to self or others. The following interventions were attempted but were not effective in protecting the patient's safety: Contraindicated - Imminent Safety Risk Next, a comprehensive assessment was performed and warranted placing the patient in Mitt Left, Mitt Right, the least restrictive restraint needed to protect the patient's safety. Ongoing safety assessments and evaluation for earliest removal of restraints will be performed. DATE: July 07, 2017 TIME: 4:00 AM Marilou Weiss RN COMP METABOLIC PANEL Collected: 07/06/2017 Status: F Source: [place] 10:58 PM [facility] REPOSITORY TYPE CODE TESTS RESULT OUT OF REFERENCE UNITS RANGE LAB TP 6.3-8.0 g/dL Low Protein, Total 4.4 LAB ALB 3.9-4.9 g/dL Low Albumin 1.4 LAB CA 8.5-10.2 mg/dL Low Calcium, Total 7.4 LAB TBIL 0.2-1.3 mg/dL Bilirubin, Total 0.3 LAB ALKP 32-117 U/L Alkaline Phosphatase 86 LAB AST 13-35 U/L AST 30 LAB GLU 74-99 mg/dL Glucose High 178 Result Comment: The [place] Diabetes Association (ADA) provides guidance for cutoff values for fasting glucose and random glucose. The ADA defines fasting as no caloric intake for at least 8 hours. Fas ting plasma glucose results between 100 to 125 mg/dL indicate increased risk for diabetes (prediabetes). Fasting plasma glucose results greater than or equal to 126 mg/dL meet the criteria for diagnosis of diabetes. In the absence of unequivocal hyperglycemia, results should be confirmed by repeat testing. In a patient with classic symptoms of hyperglycemia or hyperglycemic crisis, random plasma glucose results greater than or equal to 200 mg/dL meet the criteria for diagnosis of diabetes. Reference: Standards of Medical Care in Diabetes 2016, [place] Diabetes Association. Diabetes Care. 2016.39(Suppl 1). LAB BUN 7-21 mg/dL BUN High 59 LAB CRET 0.58-0.96 mg/dL Creatinine High 4.16 LAB NA 136-144 mmol/L Sodium 136 LAB K 3.7-5.1 mmol/L Potassium 3.8 LAB CL 97-105 mmol/L Chloride 102 LAB CO2 22-30 mmol/L Low CO2 18 LAB AGAP 9-18 mmol/L Anion Gap 16 LAB ALT 7-38 U/L ALT 15 LAB GFRAA eGFR- Amer. 14 LAB GFRNAA . eGFR-All Other Races 12 Result Comment: eGFR (Estimated GFR) Units of measure: mL/min/1.73 meters squared eGFR is derived from the reexpressed MDRD Study equation using the following parameters: serum creatinine, age, gender and race. The creatinine assay has been calibrated to be traceable to IDMS. An eGFR <60 mL/min/1.73m2 for >3 months is consistent with chronic kidney disease. Refer to KDOQI guidelines for clinical interpretation. In patients with unstable renal function, e.g. those with acute kidney injury, the eGFR may not accurately reflect actual GFR. Performed By: #### CMP, MG1, PHOS, TRIG, VANCRA, CBCDIF #### [facility] [address] [place] [address] MAGNESIUM Collected: 07/06/2017 Status: F Source: [place] 10:58 PM [facility] REPOSITORY TYPE CODE TESTS RESULT OUT OF REFERENCE UNITS RANGE LAB MG 1.7-2.3 mg/dL Magnesium 2.3 Performed By: #### CMP, MG1, PHOS, TRIG, VANCRA, CBCDIF #### [facility] [address] [place] [address] PHOSPHORUS Collected: 07/06/2017 Status: F Source: [place] 10:58 PM [facility] REPOSITORY TYPE CODE TESTS RESULT OUT OF REFERENCE UNITS RANGE LAB PHOS 2.7-4.8 mg/dL Phosphorus 4.0 Performed By: #### CMP, MG1, PHOS, TRIG, VANCRA, CBCDIF #### [facility] [address] [place], [place] [address] TRIGLYCERIDE Collected: 07/06/2017 Status: F Source: [place] 10:58 PM [facility] REPOSITORY TYPE CODE TESTS RESULT OUT OF REFERENCE UNITS RANGE LAB TRIGLY <150 mg/dL Triglyceride High 157 Result Comment: <150 mg/dL, Normal 150-199 mg/dL, Borderline high 200-499 mg/dL, High >499 mg/dL, Very high Reference: 1. National Cholesterol Education Program ATP III Guideline At-A-Glance Quick Desk Reference: National Heart, Lung, and Blood [place]. National Institutes of Health. 2001: NIH Publication No. 01-3305. LAB FT hrs Fasting Unknown Time Performed By: #### CMP, MG1, PHOS, TRIG, VANCRA, CBCDIF ####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 not effective in protecting the patient's safety: Alarms, Family/Significant Other Involvement, Bed in Low/Locked Position, Call Light Within Reach, Modify Environment, Modify Equipment, Frequent Observation Next, a comprehensive assessment was performed and warranted placing the patient in Mitt Left, Mitt Right, the least restrictive restraint needed to protect the patient's safety. Ongoing safety assessments and evaluation for earliest removal of restraints will be performed. DATE: July 06, 2017 TIME: 9:10 AM María Elena Contreras RN PROGRESS Observed: 07/06/2017 Status: COMPLETED Source: [place] 7:00 AM [facility] REPOSITORY HNO ID: [id number] Author: Jefry Martinez Service: Critical Care Author Type: Resident Type: Progress Notes Filed: 07/06/2017 10:05 AM Note Text: Attestation signed by Alejo Olvera at 07/06/2017 3:18 PM [facility] STAFF PHYSICIAN NOTE OF PERSONAL INVOLVEMENT IN CARE I have reviewed the progress note obtained and documented by the resident and I personally participated in the flores components. I have discussed the case and management of the patient's care. The following comments revise or confirm relevant flores components of the note. IMPRESSION: Oxygenation has improved quite significantly. Chest x-ray is better. Continuing mechanical ventilation with sedation. Start enteral feeds. Anticipate spontaneous breathing trials in the next day or 2. Have updated patient's parents at the bedside. Apparently, her has been discharged from the hospital but is recovering at home This patient has a high probability of sudden, clinically significant deterioration, which requires the highest level of physician preparedness to intervene urgently. I managed/supervised life or organ supporting interventions that required frequent physician assessment. I devoted my full attention to the direct care of this patient for the amount of time indicated below. Time I spent with family or surrogate(s) is included only if the patient was incapable of providing the necessary information or participating in medical decision making. Time devoted to teaching and to any procedures I billed separately is not included. Critical Care Documentation: The patient has the following organ/system impairment(s): Respiratory failure (Acute, with Hypoxemia) Time spent providing critical care services: 35 minutes. SIGNATURE: Alejo Olvera MD [facility] PAGER:[phone] DATE of SERVICE: 07/06/2017 TIME of SERVICE: 9 AM MICU [place] PROGRESS NOTE SERVICE DATE: 07/06/2017 SERVICE TIME: 7:40 AM ADMISSION DATE: 07/04/2017 Day #: 2 in the MICU. Objective PHYSICAL EXAM PERFORMED: Pt Summary: 46 year old woman who presents with PMHx gastric cancer s/p near-total gastrectomy, chemo, and radiation in 2000; radiation-induced CKD s/p left kidney transplant 2009 on chronic immunosuppression; HTN; GERD; malnutrition; chronic gastric ulcers; and recent ulcerative GI bleed; who presents from OSH to [facility] with complains of fever, myalgias, shortness of breath transferred to the MICU with hypoxic respiratory failure Major Interval Events: 07/05 - Patient started on tamiflu (30 mg q24h) and azithromcyin and ceftriaxone for CAP, tacro 18.8 07/06- Flu B pos, Scr 3.98 --> 3.76, on Azithro/zosyn/vanc/tamiflu. Blood cx NGx1D VITAL SIGNS (last 24hrs min/max): Temp Av.8 ?C (98.2 ?F) Min: 36.6 ?C (97.8 ?F) Max: 37.2 ?C (98.9 ?F) Pulse Av.3 Min: 97 Max: 113 No Data Recorded Cuff BP Min: 89/55 Max: 123/80 Pain Score: 0/10 Vital signs reviewed. Relevant comments- stable tachycardia, afebrile NET FLUID BALANCE Intake/Output Summary (Last 24 hours) at 07/06/17 1005 Last data filed at 07/06/17 0800 Gross per 24 hour Intake 1446.1 ml Output 1805 ml Net -358.9 ml MEDICATIONS Hospital/inpatient medications reviewed INDWELLING CATHETERS: Bethea Catheter: Yes Other Lines/Drains: PIVs, ETT HEENT: Oral Mucosa: Moist mucous membranes Feeding Tube: Yes. Nasogastric tube Eyes: PERRLA Neck: Unremarkable; No adenopathy or JVD Cardiovascular: Regular tachycardia Relevant Hemodynamic Data: no pressors, HDS Respiratory: Reduced breath sounds bilat Vent/Oxygen: Mechanical Ventilator Settings: Tidal Vol (ml): 300 Vent Mode: VC CMV FIO2 (%): 35 Tidal Vol (ml): 300 PEEP / CPAP (cmH20): 8 Plat Press (cmH20): 21 Freq (bpm): 28 %FIO2 Min: 40 Max: 70 Abdomen: Soft and Nontender Extremities: Edema- No Peripheral Pulses- Present all extremities Capillary Refill- less than 3 seconds Skin: Abnormalities- No Breakdown- No Neurologic: Sedated NUTRITION: Will begin TFs today, novosource renal, viokase on board DATA: Diagnostic tests reviewed for today's visit: Most recent labs and imaging results. Assessment/Plan Active Hospital Problems Diagnosis - Pneumonia Productive cough, SOB, fevers, tachycardia, worsening infiltrates in CXR compared to OSH imaging Was on ceftriaxone and azithromycin at OSH Lactate is normal Currently O2 requirements are 50% VM she was on 5 lt Concerns for viral pneumonia with supper imposed strep. Plan: - Currently on azithro, tamiflu, zosyn, vanc - Consider CT scan in the setting of immunosuppressed. - Follow Bcx, no growth thus far - RVP negative - O2 to sat > 95% - BPH - Duonebs - Need to send trach culture - Pancreatic insufficiency Started on Creon in clinic after evidence of fat malabsorption She has macrocytic anemia Plan: - Continue creon with meals after extubation, Viokase while NGT - Start Novosource Renal @ 35 cc pending nutrition eval - Nutrition consult - JENNIFFER (acute kidney injury) (HCC) JENNIFFER on CKD SCR basline ~ 2.4 In the setting of sepsis, decreased PO intake Plan: Consult transplant nephrology Renally dose meds Strict I/O Daily weight Continue current immunosuppressive medication for now Check Tacrolimus before AM dose 30 - 60 min - Respiratory failure with hypoxia (HCC) Patient has new onset hypoxia, with dramatically high oxygen needs, currently requiring FiO2 60% on HFNC, in the background of influenza B infection - Kidney transplant recipient S/p LURD kidney transplant (from adoptive mother) 02/21/10 now with CKD CMV -/+. SYSTEMS MANAGEMENT CONSULTANT IS: Cellcept, Prednisone and Prograf. Plan: Holding MMF and tacro for now Appreciate transplant nephro Transplant ultrasound Send CMV Gentle IVF as tolerated PATIENT CHECKLIST ? Are restraints necessary: No ? Deep vein thrombosis prophylaxis administered? Yes ? Stress ulcer prophylaxis? Yes ? Nasogastric tube? Yes ? Bethea catheter necessary? Yes ? Is central line essential? No ? Plan discussed with assigned RN? Yes ? Family updated within last 24 hours? Yes Signature: Jefry Martinez PGY-3 IM pager: [phone] July 06, 2017 9:29 AM TACROLIMUS / [id number] Collected: 07/06/2017 Status: F Source: [place] 4:48 AM [facility] REPOSITORY TYPE CODE TESTS RESULT OUT OF REFERENCE UNITS RANGE LAB FK506 5.0-20.0 ng/mL Tacrolimus / 15.3 FK506 Result Comment: These reference ranges are provided as a general recommendation. Individualized target levels for a given patient will depend on many factors (including the type of organ transplant, ti me since transplantation, concurrent medications, and other clinical factors), and should be assessed by those health care providers experienced in the management of immunosuppression. Reference ranges and high/low indicator flags are provided as general guidelines only. The treating physician must determine appropriate target levels/dosing based on the specific clinical situation. Test performed by chemiluminescent immunoassay using [employer]. Performed By: #### FK506 #### [facility] [address] [place], [place] [address] MAGNESIUM Collected: 07/06/2017 Status: F Source: [place] 1:05 AM [facility] REPOSITORY TYPE CODE TESTS RESULT OUT OF REFERENCE UNITS RANGE LAB MG 1.7-2.3 mg/dL Magnesium 2.1 Performed By: #### MG1, PHOS, CMP, CBCDIF #### [facility] [address] [place], [place] [address] PHOSPHORUS Collected: 07/06/2017 Status: F Source: [place] 1:05 AM [facility] REPOSITORY TYPE CODE TESTS RESULT OUT OF REFERENCE UNITS RANGE LAB PHOS 2.7-4.8 mg/dL Phosphorus 4.8 Performed By: #### MG1, PHOS, CMP, CBCDIF #### [facility] [address] [place], [place] [address] COMP METABOLIC PANEL Collected: 07/06/2017 Status: F Source: [place] 1:05 [facility] REPOSITORY TYPE CODE TESTS RESULT OUT OF REFERENCE UNITS RANGE LAB TP 6.3-8.0 g/dL Low Protein, Total 4.3 LAB ALB 3.9-4.9 g/dL Low Albumin 1.5 Result Comment: Result rechecked. LAB CA 8.5-10.2 mg/dL Calcium, Total Low 7.3 LAB TBIL 0.2-1.3 mg/dL Bilirubin, Total 0.2 LAB ALKP 32-117 U/L Alkaline Phosphatase 62 LAB AST 13-35 U/L AST 19 LAB GLU 74-99 mg/dL Glucose 78 Result Comment: The [place] [employer] (ADA) provides guidance for cutoff values for fasting glucose and random glucose. The ADA defines fasting as no caloric intake for at least 8 hours. Fas ting plasma glucose results between 100 to 125 mg/dL indicate increased risk for diabetes (prediabetes). Fasting plasma glucose results greater than or equal to 126 mg/dL meet the criteria for diagnosis of diabetes. In the absence of unequivocal hyperglycemia, results should be confirmed by repeat testing. In a patient with classic symptoms of hyperglycemia or hyperglycemic crisis, random plasma glucose results greater than or equal to 200 mg/dL meet the criteria for diagnosis of diabetes. Reference: Standards of Medical Care in Diabetes 2016, [place] [employer]. Diabetes Care. 2016.39(Suppl 1). LAB BUN 7-21 mg/dL BUN High 53 LAB CRET 0.58-0.96 mg/dL Creatinine High 3.76 LAB NA 136-144 mmol/L Low Sodium 134 LAB K 3.7-5.1 mmol/L Potassium 4.5 LAB CL 97-105 mmol/L Chloride 102 LAB CO2 22-30 mmol/L Low CO2 17 LAB AGAP 9-18 mmol/L Anion Gap 15 LAB ALT 7-38 U/L Low ALT 6 LAB GFRAA eGFR- Amer. 16 LAB GFRNAA . eGFR-All Other Races 13 Result Comment: eGFR (Estimated GFR) Units of measure: mL/min/1.73 meters squared eGFR is derived from the reexpressed MDRD Study equation using the following parameters: serum creatinine, age, gender and race. The creatinine assay has been calibrated to be traceable to IDMS. An eGFR <60 mL/min/1.73m2 for >3 months is consistent with chronic kidney disease. Refer to KDOQI guidelines for clinical interpretation. In patients with unstable renal function, e.g. those with acute kidney injury, the eGFR may not accurately reflect actual GFR. Performed By: #### MG1, PHOS, CMP, CBCDIF #### [facility] [address] [place] [address] CBC AND DIFFERENTIAL Collected: 07/06/2017 Status: F Source: [place] 1:05 [facility] REPOSITORY TYPE CODE TESTS RESULT OUT OF REFERENCE UNITS RANGE LAB WBC 3.70-11.00 k/uL WBC High 13.02 LAB RBC 3.90-5.20 m/uL Low RBC 2.37 LAB HGB 11.5-15.5 g/dL Low Hemoglobin 8.5 LAB HCT 36.0-46.0 % Low Hematocrit 24.9 LAB MCV 80.0-100.0 fL MCV High 105.1 LAB MCH 26.0-34.0 pG MCH High 35.9 LAB MCHC 30.5-36.0 g/dL MCHC 34.1 LAB RDWCV 11.5-15.0 % RDW-CV High 21.2 LAB PLTCT 150-400 k/uL Low Platelet Count 27 Result Comment: Result checked and verified No clot detected. LAB MPV 9.0-12.7 fL MPV 12.6 LAB ANEUT % Neut% 98.2 LAB AANEUT 1.45-7.50 k/uL Abs Neut 12.79 High LAB ALYMP % Lymph% 0.9 LAB AALYMP 1.00-4.00 k/uL Abs Lymph 0.12 Low LAB AMONO % [place]% 0.9 LAB AAMONO <0.87 k/uL Abs [place] 0.12 LAB AEOS % Eosin% 0.0 LAB AAEOS <0.46 k/uL Abs Eosin 0.00 LAB ABASO % Baso% 0.0 LAB AABASO <0.11 k/uL Abs Baso 0.00 LAB ANIIMI Anisocytosis Present LAB OVAIMI Ovalocytes Few LAB POLIMI Polychromasia Slight LAB PLTEST Platelet Estimate Platelet estimate decreased LAB DTYP DTYPE Manual Diff Performed By: #### MG1, PHOS, CMP, CBCDIF #### [facility] [address] [place], [place] [address] GASA + ALL Collected: 07/05/2017 Status: F Source: [place] FOR 9:41 PM [facility] RADIANCE USE ONLY REPOSITORY TYPE CODE TESTS RESULT OUT OF REFERENCE UNITS RANGE LAB PH 7.35-7.45 pH 7.40 LAB PCO2 34-46 mm Hg pCO2 Low 31 LAB PO2 85-95 mm Hg pO2 High 155 LAB BE mmol/L Base Excess NEG 5 LAB HCO3 22-26 mmol/L Bicarbonate Low 18 LAB CO2CT 22.0-28.0 mmol/L CO2 Content Low 19 LAB O2HB 95-98 % Oxyhemoglobin, Low Art. 94 LAB COHB 0-5.0 % Carboxyhemoglobin,A 0.0 rt LAB MHGB 0.4-1.5 % Methemoglobin High 2.9 LAB TEMP C Temperature, Body 37.0 LAB PHTC 7.35-7.45 pH, Temp Corrected 7.40 LAB PCO2T 34-46 mm Hg pCO2, Temp Low Correct 31 LAB PO2T mm Hg pO2, Temp Corrected 155 LAB NAB 132-148 mmol/L Sodium,Whole Bld 133 LAB KWB 3.5-5.0 mmol/L Potassium, Whole Bld 4.3 LAB HGBB 11.5-15.5 g/dL Low Hemoglobin,Total,AC 9.0 L LAB HCTB 36.0-46.0 % Hematocrit, ACL Low 28 LAB IC 1.08-1.30 mmol/L Calcium, Ion, WB 1.16 LAB GLB 60-105 mg/dL Glucose,Whole Bld 94 LAB LACT 0.5-2.2 mmol/L Lactate 0.6 Performed By: #### ALLBG #### [facility] [address], [place] [address] CREATININE,URINE,RAN Collected: Status: F Source: [place] 07/05/2017 6:30 PM [facility] REPOSITORY TYPE CODE TESTS RESULT OUT OF RANGE REFERENCE UNITS LAB UCRR 20-300 mg/dL 30.4 Creatinine,U rine,Ran Performed By: #### UCRR, UNAR, LEGUAG #### [facility] [address] [place], [place] [address] SODIUM,URINE,RANDOM Collected: Status: F Source: [place] 07/05/2017 6:30 PM [facility] REPOSITORY TYPE CODE TESTS RESULT OUT OF RANGE REFERENCE UNITS LAB UNAR 14-216 mmol/L 20 Sodium,Urine ,Random Performed By: #### UCRR, UNAR, LEGUAG #### [facility] [address] [place], [place] [address] LEGIONELLA URINE AG Collected: 07/05/2017 Status: F Source: [place] 6:30 PM [facility] REPOSITORY TYPE CODE TESTS RESULT OUT OF REFERENCE UNITS RANGE LAB LEGUAG Negative Legionella Urine Negative Ag Result Comment: Negative for L. pneumophila serogroup 1 antigen in urine, suggesting no recent or current infection. Legionnaires disease cannot be ruled out since other serogroups and species may also cause disease. Performed By: #### UCRR, UNAR, LEGUAG #### [facility] [address] [place], [place] [address] GASA + ALL Collected: 07/05/2017 Status: F Source: [place] FOR 4:33 PM [facility] RADIANCE USE ONLY REPOSITORY TYPE CODE TESTS RESULT OUT OF REFERENCE UNITS RANGE LAB PH 7.35-7.45 pH 7.33 Low LAB PCO2 34-46 mm Hg pCO2 33 Low LAB PO2 85-95 mm Hg pO2 138 High LAB BE mmol/L Base Excess NEG 8 LAB HCO3 22-26 mmol/L Bicarbonate 17 Low LAB CO2CT 22.0-28.0 mmol/L CO2 Content 18 Low LAB O2HB 95-98 % 95 Oxyhemoglobin, Art. LAB COHB 0-5.0 % 0.2 Carboxyhemoglobin ,Art LAB MHGB 0.4-1.5 % 1.8 High Methemoglobin LAB TEMP C 37.0 Temperature, Body LAB PHTC 7.35-7.45 pH, Temp 7.33 Low Corrected LAB PCO2T 34-46 mm Hg pCO2, Temp 33 Low Correct LAB PO2T mm Hg pO2, Temp 138 Corrected LAB NAB 132-148 mmol/L 132 Sodium,Whole Bld LAB KWB 3.5-5.0 mmol/L Potassium, 4.2 Whole Bld LAB HGBB 11.5-15.5 g/dL 9.8 Low Hemoglobin,Total, ACL LAB HCTB 36.0-46.0 % Hematocrit, 30 Low ACL LAB IC 1.08-1.30 mmol/L Calcium, 1.16 Ion, WB LAB GLB 60-105 mg/dL 99 Glucose,Whole Bld LAB LACT 0.5-2.2 mmol/L Lactate 0.6 LAB ABGCOM Blood Gas O2 Comm, Art Administration Result Comment: 60% Performed By: #### ALLBG #### [facility] [address] [place] [id number] NURSING PROG Observed: 07/05/2017 Status: COMPLETED Source: [place] 4:00 PM [facility] REPOSITORY HNO ID: [id number] Author: Opal (Rn) DICK Wakefield Service: (none) Author Type: Registered Nurse Type: Nursing Progress Note Filed: 07/05/2017 4:48 PM Note Text: Nursing Progress: Topic: RESTRAINT NON-VIOLENT PATIENT NAME: Val Valverde PATIENT LOCATION: [place] [address] The patient demonstrates Attempting to Remove Medical Devices Vital to Medical Stability, Lack of Understanding/Ability to Comply with Safety Directions, Inability to be Redirected, Inability to Retain Information Regarding Safety Directions as evidenced by the following behaviors patient reaching at and grabbing ETT which pose an imminent danger to self or others. The following interventions were attempted but were not effective in protecting the patient's safety: Family/Significant Other Involvement, Bed in Low/Locked Position, Medications Reviewed, Modify Environment, Modify Equipment, Frequent Observation, Re-Orientation Methods Next, a comprehensive assessment was performed and warranted placing the patient in Mitt Left, Mitt Right, Soft Bilateral Wrists, the least restrictive restraint needed to protect the patient's safety. Ongoing safety assessments and evaluation for earliest removal of restraints will be performed. DATE: July 05, 2017 TIME: 4:47 PM Opal Wakefield RN XR CHEST 1V FRONTAL Observed: 07/05/2017 Status: F Source: [facility] 2:27 PM [facility] REPOSITORY * * *Final Report* * * DATE OF EXAM: Jul 05 2017 2:27PM KISHAN [id number] - XR CHEST 1V FRONTAL PORT / PROCEDURE REASON: Airway intubation performed without difficulty * * * * Physician Interpretation * * * * EXAMINATION: CHEST RADIOGRAPH (PORTABLE SINGLE VIEW AP) Exam Date/Time: 07/05/2017 2:27 PM Indication: Airway intubation performed without difficulty M: XCP_4 Comparison: 1 day prior RESULT: See impression. IMPRESSION: Lines, tubes, and devices: Interval endotracheal intubation with right mainstem cannulation. Suggest retraction of endotracheal tube by approximately 3 cm. Recommend follow-up chest radiographs in the neutral position. NG tube also placed with tip in the stomach and side-port above the GE junction. Suggest advancement by a few centimeters. Lungs and pleura: New consolidation in the right upper lobe posterior segment. Persistent consolidation of the left upper lobe and bilateral lower lobes. Findings are most suggestive of multifocal pneumonia an/or aspiration. Stable small to medium-sized bilateral pleural effusions. No pneumothorax Cardiomediastinal silhouette: Stable cardiomediastinal silhouette. Other: Multiple surgical clips in the upper abdomen. Culinary Assistant: PSCB Transcribe Date/Time: Jul 05 2017 3:12P Dictated by : DEBBY FRY MD This examination was interpreted and the report reviewed and electronically signed by: DEBBY FRY MD on Jul 05 2017 3:13PM EST [id number] PROCEDURE Observed: 07/05/2017 Status: COMPLETED Source: [place] 2:15 PM [facility] REPOSITORY HNO ID: [id number] Author: Mee Linares (Fel) Service: Critical Care Author Type: Fellow Type: Procedures Filed: 07/05/2017 2:21 PM Note Text: Attestation signed by Alejo Olvera at 07/05/2017 3:30 PM I was present and supervised from start to finish BEDSIDE PROCEDURE NOTE PROCEDURE DATE: July 05, 2017 PROCEDURE START TIME: 1:30 PM PRIMARY PROCEDURALIST: Mee Linares MD BODY ART TECHNICIAN(S): None INFORMED CONSENT: Informed Consent obtained and on the chart UNIVERSAL PROTOCOL / SAFETY CHECKLIST Sign in Communication: Completed Time Out: Team Confirms the Correct Patient, Correct Procedure, Correct Site and Site Marking, Correct Position (if applicable), Prep and Dry Time (if applicable). Time: 1:34 PM Affirmation of Time Out: YES Sign Out Discussion: Completed PROCEDURE: OROTRACHEAL INTUBATION Indication: Airway Protection, Difficulty Breathing and Unable to Oxygenate/Ventilate Sedation: The patient was sedated with etomidate and methohexital. Muscle relaxation was achieved with the administration of succinylcholine. Equipment: Endotracheal tube, size 7.5 mm The patient was administered supplemental oxygen by bag-mask ventilation. Adjunct airway equipment and suction were at the bedside and ready to use. The head was placed in the sniffing position. I - Visualized entire cords via direct laryngoscopy. The method used for intubation was rapid sequence intubation because the patient was suspected of having a full stomach. Cricoid pressure was maintained. A 7.5 mm endotracheal tube was inserted using a laryngoscope with a 3 Arianna blade and secured at 21 cm at the teeth/gums. Placement was confirmed with end-title CO2, capnometer, bilateral auscultatation of breath sounds without air sounds in the abdomen and chest x-ray completed and placement confirmed. Difficulty Encountered: None Patient tolerated procedure well. Complications: None Number of Attempts for Intubation: 1 No Specimens Collected Unless Noted Here Estimated Blood Loss if > Minimal Noted Here SIGNATURE: Mee Linares MD PATIENT NAME: Val Valverde DATE: July 05, 2017 TIME: 2:15 PM PAGER/CONTACT #: [phone] GASA + ALL Collected: 07/05/2017 Status: F Source: [place] FOR 1:33 PM [facility] RADIANCE USE ONLY REPOSITORY TYPE CODE TESTS RESULT OUT OF REFERENCE UNITS RANGE LAB PH 7.35-7.45 pH Low 7.33 LAB PCO2 34-46 mm Hg pCO2 34 LAB PO2 85-95 mm Hg pO2 Low 70 LAB BE mmol/L Base Excess NEG 7 LAB HCO3 22-26 mmol/L Bicarbonate Low 17 LAB CO2CT 22.0-28.0 mmol/L CO2 Content Low 18 LAB O2HB 95-98 % Oxyhemoglobin, Low Art. 88 LAB COHB 0-5.0 % Carboxyhemoglobin, 0.2 Art LAB MHGB 0.4-1.5 % Methemoglobin High 2.5 LAB TEMP C Temperature, Body 37.0 LAB PHTC 7.35-7.45 pH, Temp Low Corrected 7.33 LAB PCO2T 34-46 mm Hg pCO2, Temp Correct 34 LAB PO2T mm Hg pO2, Temp Corrected 70 LAB NAB 132-148 mmol/L Sodium,Whole Low Bld 130 LAB KWB 3.5-5.0 mmol/L Potassium, Whole Bld 3.9 LAB HGBB 11.5-15.5 g/dL Low Hemoglobin,Total,A 9.5 CL LAB HCTB 36.0-46.0 % Hematocrit, Low ACL 29 LAB IC 1.08-1.30 mmol/L Calcium, Ion, WB 1.17 LAB GLB 60-105 mg/dL Glucose,Whole High Bld 141 LAB LACT 0.5-2.2 mmol/L Lactate 0.6 LAB ACBDTE Notify Date, Art [id number] LAB ACBTME Notify Time, Art Performed By: #### ALLBG #### [facility] [address] [place], [place] [address] NURSING PROG Observed: 07/05/2017 Status: COMPLETED Source: [place] 1:30 PM [facility] REPOSITORY HNO ID: [id number] Author: Erica (Rn) DICK [place]rieta Service: (none) Author Type: Registered Nurse Type: Nursing Progress Note Filed: 07/05/2017 1:46 PM Note Text: Nursing Progress Note Patient Name: Val Valverde Patient Location: [place] [address] 1334: Preparing for intubation. 100% non-rebreather. HR 112 BP 130/73 O2 93% respiration rate 30. 1339: O2% 85 1341: Bagging pt. O2 83% Time out performed. 1341: 20 mcg fentanyl given 1342: 50 mg brevital given. 35 mg Succinylcholine given O2 96% 1343 7.5 @ 23@ the lip Positive color change bilateral breath sounds HR 114 BP 152/80 O2 99% Resp rate 22 This note was completed by: ERICA MURRIETA RN CONSULT PROG Observed: 07/05/2017 Status: COMPLETED Source: [place] 9:25 AM [facility] REPOSITORY HNO ID: [id number] Author: Krystal Amador (Pharmacist) Service: Pharmacy Author Type: Pharmacist Type: Consult Progress Note Filed: 07/05/2017 9:26 AM Note Text: PHARMACY VANCOMYCIN DOSING NOTE Patient Name: Val Valverde Admission Date: 07/04/2017 Date of Consult: 07/05/2017 Time of Consult: 9:25 AM Indication: Pneumonia Goal Range: 10-20 mcg/mL RECOMMENDATIONS/PLAN: Pharmacy consulted for vancomycin dosing for Val Valverde, a 46 year old, female who is being treated with vancomycin for pneumonia. 1. Patient is currently ordered Vancomycin 1 g IV q24h. Today is day 1 of therapy. 2. No vancomycin level has been drawn for this dosing regimen. 3. Will schedule vancomycin to 500 mg with a dosing interval of q24h x 2 doses based on age, weight and renal function. 4. The next vancomycin level will be ordered for after 2 doses unless clinically indicated sooner. (Pharmacy will order) We will follow patient renal function, vancomycin levels and doses with you during the course of therapy. Additional recommendations will appear in follow up notes. If you have any questions, please contact Krystal Amador (Pharmacist) at [phone]. Age: [age] year old Allergies: ALLERGIES Allergen Reactions - Sulfa (Sulfonamide * Hives hives - Nsaids (Non-Steroid* Intolerance Last 3 Encounter Wt Readings: Date: Wt: 07/04/2017 34.2 kg (75 lb 6.4 oz) 06/30/2017 32.7 kg (72 lb) 06/23/2017 32.2 kg (71 lb) Last 1 Encounter Ht Readings: Date: Ht: 07/04/2017 149.9 cm (4' 11) CrCl: <30 mL/min Temp (24hrs), Av.7 ?C (98 ?F), Min:36.6 ?C (97.9 ?F), Max:36.8 ?C (98.3 ?F) - Current Temp: 36.6 ?C (97.9 ?F) Labs BUN (mg/dL) Date Value 07/05/2017 60 (H) 07/04/2017 57 (H) 06/04/2017 47 (H) Creatinine (mg/dL) Date Value 07/05/2017 3.98 (H) 07/04/2017 4.03 (H) 06/04/2017 3.92 (H) WBC (k/uL) Date Value 07/05/2017 12.08 (H) 07/04/2017 11.51 (H) 02/23/2017 1.57 (L) Vancomycin Levels: Vancomycin, result (ug/mL) Date Value 02/20/2017 17.8 02/19/2017 13.8 Krystal Amador, PharmD (Critical Care Pharmacist) [id number] PLAN OF CARE Observed: 07/05/2017 Status: COMPLETED Source: [place] 8:33 AM [facility] REPOSITORY HNO ID: [id number] Author: Shari Mcdaniels Service: Critical Care Author Type: Resident Type: Plan of Care Filed: 07/05/2017 9:15 AM Note Text: Attestation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 general guidelines only. The treating physician must determine appropriate target levels/dosing based on the specific clinical situation. Test performed by chemiluminescent immunoassay using [employer] Staff Member. Performed By: #### FK506 #### [place] [address] Observed: 07/04/2017 Status: F Source: [place] BLOOD CULTURE 11:45 PM [facility] REPOSITORY Culture Result - No growth 5 days Performed By: #### BLCUL #### [place] [address] [place] [id number] TYPE AND SCREEN Collected: 07/04/2017 Status: F Source: [place] 11:35 PM [facility] REPOSITORY TYPE CODE TESTS RESULT OUT OF REFERENCE UNITS RANGE LAB %ABR B ABO/RH(D) POSITIVE LAB % Antibody NEG Screen Performed By: #### TSCR #### [place] [address] [place] [id number] NURSING PROG Observed: 07/04/2017 Status: COMPLETED Source: [place] 11:15 PM [facility] REPOSITORY HNO ID: [id number] Author: Mihaela (Rn) Asp, RN Service: (none) Author Type: Registered Nurse Type: Nursing Progress Note Filed: 07/05/2017 1:58 AM Note Text: Nursing Progress Note Patient Name: Val Valverde Patient Location: [id number] Note: Patient transferred into room/unit 81-25 from [facility] needing increased oxygen requirements. O2 was 84% on 6Lnc, Pt was slowly titrated up on the venti mask until she stabilized at 91% on 50% FiO2 venti-mask. Continuous Spo2 was put on patient along with telemetry. MD's and AMET were made aware of patient's low O2 levels, labs were ordered and drawn (including type and screen, 1st set of blood cultures, and sepsis lactate). ABGs were also ordered and obtained by respiratory therapist. Patient has been unable to be weaned down from the 50% mask due to immediate respiratory distress related to low O2 saturations. Results of ABGs show extreme hypoxia even after several hours of being on high flow. MICU has been consulted and now awaiting bed space in order to transfer patient to ICU due to increased physiological demands not suitable for RNF. This note was completed by: Mihaela Barakat RN PT ED Observed: 07/04/2017 Status: COMPLETED Source: [place] 11:00 PM [facility] REPOSITORY HNO ID: [id number] Author: Sofia Provider Service: (none) Author Type: Physician Type: Patient Education Filed: 07/04/2017 11:00 PM Note Text: [facility] Patient Education Report --------- Name: VAL VALVERDE Date: 07/04/2017 Time: 11:00 PM Patient Ordered Video: Inpatient Falls from [id number] via phone number [phone] at 11:00 PM DISCHARGE SUMMARY Observed: 07/04/2017 Status: F Source: [place] 3:51 PM [facility] [place] [facility] Medical Records Department [address] [place] [address] Discharge Summary 07/04/17 1527 MR#: [id number] Acct: [id number] Name: VAL VALVERDE Rep #: [id number] : 1970 46 From: Ruby Boyd [employer] PCP: Wil To MD Status: ADM IN Y Location: [place] [id number] <Ruby Boyd - Last Filed: 07/04/17 15:31> Discharge Date and Diagnosis - Problem List Patient Problems: Active and Suspected Problems Sepsis (Acute) Pneumonia, bacterial (Acute) JENNIFFER (acute kidney injury) (Acute) Date of Admission: 07/03/17 Date of Discharge: 07/04/17 - Primary Discharge Diagnosis Active and Suspected Problems 1. Acute sepsis secondary to Streptococcus pneumoniae and streptococcal bacteremia 2. Acute hypoxia secondary to #1 3. Acute kidney injury on chronic kidney disease stage IV status post left kidney transplant 4. Acute on chronic pancytopenia 5. Severe protein calorie malnutrition - Secondary Discharge Diagnosis Chronic Problems CKD (chronic kidney disease) stage 4, GFR 15-29 ml/min (Chronic) History of renal transplant (Chronic) History of gastric cancer (Chronic) Essential hypertension (Chronic) Anemia, chronic renal failure (Chronic) Hospital Course and Treatment Imaging Results: Diagnostic Data Chest X-Ray 07/03/17 12:24 IMPRESSION: Left lower lobe consolidation and small left pleural effusion. Right basilar infiltrate. Follow-up is recommended. Electronically Signed: Vikas Haney MD at 12:52 EST Tel [phone], Service support , Dr. Mcdaniel- Nephrology Operations: None Procedures: None Summary of Care Provided: Patient is a 46-year-old female admitted 07/03/2017 due to chest pain, shortness of breath. She has a past medical history of hypertension, chronic kidney disease stage IV, status post renal transplant, history of CMV stomach ulcers. 1. Acute sepsis secondary to Streptococcus pneumoniae and streptococcal bacteremia-urine, blood cultures both positive for Streptococcus pneumonia. Chest x-ray on admission showed left lower lobe consolidation and small left pleural effusion, right basilar infiltrate. Continue IV Rocephin and azithromycin. Continue supplemental oxygen to maintain O2 at or above 90%. Continue IV fluids. Albuterol/DuoNeb aerosols. IS. 2. Acute hypoxia secondary to #1 3. Acute kidney injury on chronic kidney disease stage IV- status post left kidney transplant-nephrology consulted. Patient follows [facility]. Nephrology managing her tacrolimus which was decreased given renal failure and pneumonia. Continue prednisone. Tacrolimus level pending. Transfer to [facility] pending given history of kidney transplant which took place at their facility. Patient may require dialysis in the future if kidney function does not improve. 4. Hypertension-stable, continue home regimen. 5. Anemia of chronic disease-hemoglobin 6.7. The patient's baseline hemoglobin is 7-8. Transfuse 1 unit packed red blood cells. IV iron 1. Monitor CBC. 6. History of CMV stomach ulcers/history of GI bleed-continue PPI. Patient denies blood in stool. Stool pending for occult blood. 7. Pancytopenia-chronic secondary to CRF. Monitor CBC. 8. Severe protein calorie malnutrition-BMI 14. Patient may require parenteral nutrition if not able to intake adequate calories. Consult nutrition/dietitian. General: Alert, Oriented x3, Cooperative, No apparent distress HEENT: Atraumatic, PERRLA, EOMI, Normocephalic Lungs: Clear to auscultation, Diminished Cardiovascular: Regular Rhythm, Normal S1, Normal S2, No murmurs, Tachycardic Abdomen: Bowel Sounds Present, Soft, Non Tender, Non-Distended Extremities: No clubbing, No cyanosis, No edema, Capillary Refill Less than 3 Seconds Skin: No rashes Musculoskeletal: No Tenderness to Palpation of Joints or Extremities, Cachexia Neurological: Cranial nerves II-XII grossly intact, Neuro grossly intact Psych/Mental Status: Normal Affect, Appropriate Patient seen and examined prior to discharge. Physical assessment as noted above. Patient is stable for transfer to [facility]. This patient was seen by RUDY Stevens under the supervision of Dr. Hutchison. Home Medications: Medications to take at Discharge Amlodipine [Norvasc] 2.5 mg PO DAILY 07/03/17 Calcium Citrate/Vitamin D3 [Calcium Citrate - Vit D Caplet] 1 each PO DAILY 07/03/17 Cholecalciferol (Vitamin D3) [Vitamin D] 50,000 unit PO FR 07/03/17 Colestipol Tablet [Colestid Tablet] 1 gm PO BID 07/03/17 Cyanocobalamin [Vitamin B12] 1,000 mcg IM Q30D 07/03/17 Dronabinol [Marinol] 2.5 mg PO 4X/DAY 07/03/17 Escitalopram Oxalate [Lexapro] 10 mg PO QODAY 07/03/17 Esomeprazole Mag Trihydrate [Nexium] 40 mg PO DAILY 07/03/17 Gabapentin [Neurontin] 300 mg PO BIDCM 07/03/17 Levonorgestrel [Mirena] 1 each IY 07/03/17 Lipase/Protease/Amylase [Creon Dr 12,000 Units Capsule] 1 each PO BID 07/03/17 Multivit,Calc,Mins/Iron/Folic [Therapeutic-M Tablet] 1 each PO DAILY 07/03/17 Oxycodone [Oxyir] 5 mg PO Q8H PRN 07/03/17 Polyethylene Glycol 3350 [Miralax] 17 gm PO DAILY PRN PRN 07/03/17 Prednisone 5 mg PO DAILY 07/03/17 Vits [Prenatabs FA] 1 tablet PO DAILY 07/03/17 Sodium Bicarbonate 650 mg PO DAILY 07/03/17 Tacrolimus [Astagraf Xl] 2 mg PO BREAKFAST 07/03/17 Tacrolimus [Envarsus Xr] 1 mg PO DINNER 07/03/17 Tizanidine HCl [Zanaflex] 4 mg PO Q6H PRN 07/03/17 Primary Care Physician: Wil To MD [Primary Care Provider] - Within 2 Weeks Disposition: [facility] Minutes spent on discharge:: 35 Patient Condition:: Stable Meaningful Use Info Meaningful Use Diagnoses (Choose all that apply): None applicable <Dionte Hutchison - Last Filed: 07/04/17 15:50> Discharge Date and Diagnosis - Primary Discharge Diagnosis Active and Suspected Problems Sepsis (Acute) Pneumonia, bacterial (Acute) JENNIFFER (acute kidney injury) (Acute) - Secondary Discharge Diagnosis Chronic Problems CKD (chronic kidney disease) stage 4, GFR 15-29 ml/min (Chronic) History of renal transplant (Chronic) History of gastric cancer (Chronic) Essential hypertension (Chronic) Anemia, chronic renal failure (Chronic) Hospital Course and Treatment Operations: None Procedures: None Summary of Care Provided: pt seen and examined independently. I agree with the above note by the [employer]ING [employer] MINER. Data reviewed. Female presents with shortness of breath. Patient was found to be positive for pneumococcal antigen and as well as a positive chest x-ray and positive blood cultures for pneumococcal pneumonia. Patient was started on Rocephin and azithromycin. Patient was hemodynamically stable. Patient is renal transplant patient and was seen by nephrology. Nephrology felt that the patient be better suited to being managed by her transplant doctors and so measures were made to transfer the patient to the [facility]. I spoke with the transfer line spoke with the accepting medical physician as well. The patient be transferred once a bed has become available. Patient did also have acute anemia hemoglobin dropped down to 6.7. Patient was ordered to be transfused as yet to receive blood products yet. Additionally, the patient's is just been hospitalized today for what looks like pneumonia as well. Unclear if it is the same type of pneumonia at the patient has or not. [] Vital Signs Height 1.5 m Weight: 31.4 kg Weight in Pounds 69.2 lbs Pulse Ox 92 Vision is frail in appearance rather ashen. Heart is regular rate and rhythm plus S1-S2 without any murmurs gallops or rubs. Lungs are diminished bilaterally with some crackles in the right and left lower lobes. Abdomen is soft nontender nondistended with no hepatosplenomegaly. Extremities are without any cyanosis clubbing or edema. No knee effusions no calf tenderness. Discharge Diet: Renal Diet Call your doctor if you observe: Fever of 101 or Higher Disposition: Acute care Hospital Patient Condition:: Stable Meaningful Use Info Meaningful Use Diagnoses (Choose all that apply): None applicable Code Visit Inpatient E AND M: [id number] Disch Hosp 07/04/17 1532 <Electronically signed by Ruby Boyd [employer]> Date Ruby TOR[facility] 07/04/17 6001<Electronically signed by Dionte Hutchison DO> Cosigner Signature (if applicable): Date Dionte Hutchison DO CC: [employer]-Ruth Boyd; Wil To MD; Dionte Hutchison DO Signed CONSULTATION Observed: 07/04/2017 Status: F Source: [place] 1:49 PM [facility] [place] [facility] Medical Records Department [address] [place] [address] Consultation 07/04/17 1059 MR#: [id number] Acct: [id number] Name: VAL VALVERDE Rep #: [id number] : 1970 46 From: Marietta Mcdaniel DO PCP: Wil To MD Status: ADM IN Location: [place] [address]1 Consultation - Renal 07/04/17 PCP/ Referring MD: Requesting physician: Rivka Waldrop Primary care physician: Wil To Reason for Consultation:: Chronic kidney disease stage IV, renal transplant management - History of Present Illness History of Present Illness: Patient is a 46 years old female with 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 Hameed at [facility]. She presented to ED on 07/03 with complains of chest pain and shortness of breath for about one week with nonproductive cough. She complained of chills but no fever. Her has been ill with the flu week ago. She was started on IV antibiotic therapy for bilateral Streptococcus pneumonia. Blood culture was positive for strep pneumoniae 2 drawn in ER. She has been feeling ill with poor oral intake, anorexia with continued weight loss and fatigue. She has been on parenteral nutrition in the past but none recently. She is pancytopenic with hemoglobin of 7.9 dropped down to 6.7 g today. She has CKD stage IV with baseline creatinine running in the 2's, 3.9 on June 04, 2017. There has been some discussion about dialysis in the past with [facility] but no definite plans made. Creatinine on admission was elevated at 5.48 improved to 4.5 with IV hydration overnight. She denies any syncope or swelling. She has increased abdominal fullness with fluids or small meals. She has a history of CMV bleeding ulcers hospitalized twice at [facility] last year requiring intubation for one of the hospitalizations. She denied any hematochezia, melena, hematemesis. She denies any nausea or vomiting. She has been on ganciclovir for CMV infection last year. Today she continues to feel ill with weakness, fatigue, generalized malaise, and cough. She denies any nausea vomiting or diarrhea. She remains hypoxic requiring 5 L oxygen. She is tachycardic. CXR showed consolidation on LLL and RLL. Currently she is on tacrolimus and prednisone therapy for her kidney transplant. ProGraf level was sent yesterday with pending results. Last prograf level was 9 with SCr 3.9. - Allergies Allergies: Allergies Sulfa (Sulfonamide Antibiotics) Allergy (Verified 11/16/16 10:01) Hives NSAIDS (Non-Steroidal Anti-Inflamma Adverse Reaction (Verified 11/16/16 10:01) Other - Current Medications Current Medications: Current Medications Acetaminophen (Tylenol) 650 mg PO Q6H PRN PRN PRN Reason: Mild Pain (1-3)/Temp > 100.7 F Last Admin: 07/03/17 23:08 Dose: 325 mg Albuterol/Ipratropium (Duoneb) 3 ml INHALATION Q6H.RT [facility] Last Admin: 07/04/17 07:20 Dose: 3 ml Bisacodyl (Dulcolax) 5 mg PO DAILY PRN PRN PRN Reason: Constipation Calcium/Vitamin D (Os-Patrice 500mg + D) 1 tablet PO BIDCM [facility] Last Admin: 07/04/17 09:50 Dose: 1 tablet Colestipol HCl (Colestid Tablet) 1 gm PO BID [facility] Last Admin: 07/04/17 08:50 Dose: 1 gm Cyanocobalamin (Vitamin B12) 1,000 mcg IM Q30D [facility] Last Admin: 07/03/17 19:30 Dose: 1,000 mcg Dronabinol (Marinol) 2.5 mg PO 4X/DAY [facility] Last Admin: 07/04/17 09:50 Dose: 2.5 mg Escitalopram Oxalate (Lexapro) 10 mg PO QODAY [facility] Gabapentin (Neurontin) 300 mg PO BIDCM [facility] Last Admin: 07/04/17 09:50 Dose: 300 mg Heparin Sodium (Porcine) () 5,000 units SC Q8 [facility] Last Admin: 07/04/17 05:47 Dose: 5,000 units Sodium Chloride () 1,000 mls @ 125 mls/hr IV .Q8H [facility] Last Admin: 07/04/17 08:34 Dose: 125 mls/hr Ceftriaxone Sodium (Rocephin) 1 gm in 50 mls @ 100 mls/hr IV Q24 [facility] Last Admin: 07/04/17 09:52 Dose: 100 mls/hr Vancomycin HCl () 500 mg in 100 mls @ 100 mls/hr IV Q72H [facility] Last Admin: 07/04/17 01:50 Dose: 100 mls/hr Magnesium Hydroxide (Milk Of Magnesia) 30 ml PO DAILY PRN PRN Reason: Constipation Non-Formulary Medication (Tacrolimus) 2 mg PO BREAKFAST [facility] Non-Formulary Medication (Tacrolimus [Envarsus Xr]) 1 mg PO DINNER [facility] Ondansetron HCl (Zofran) 4 mg IV Q8H PRN PRN PRN Reason: NAUSEA Oxycodone HCl (Oxyir) 5 - 10 mg PO Q4H PRN PRN PRN Reason: MOD-SEVERE PAIN (4-10/10) Last Admin: 07/04/17 06:08 Dose: 5 mg Pancrelipase (Pancrelipase (5000-17,000-27,000)) 1 capsule PO TIDCM [facility] Last Admin: 07/04/17 09:50 Dose: 1 capsule Pantoprazole Sodium (Protonix) 40 mg PO DAILY [facility] Last Admin: 07/04/17 08:50 Dose: 40 mg Polyethylene Glycol (Miralax) 17 gm PO DAILY PRN PRN PRN Reason: Constipation [facility] Last Admin: 07/04/17 08:50 Dose: 5 mg Multivit/Folic Acid/Iron (Prenatabs Fa) 1 tablet PO DAILY [facility] Last Admin: 07/04/17 09:50 Dose: 1 tablet Promethazine HCl (Phenergan (Ll)) 12.5 mg IV Q6H PRN PRN Reason: NAUSEA Sodium Bicarbonate (Sodium Bicarbonate) 650 mg PO DAILY [facility] Last Admin: 07/04/17 09:50 Dose: 650 mg Sodium Chloride () 5 - 30 ml IV UD PRN PRN Reason: SALINE FLUSH Tizanidine HCl (Zanaflex) 4 mg PO Q6H PRN PRN Reason: MUSCLE SPASMS Zolpidem Tartrate (Ambien (Generic)) 5 mg PO QHS PRN PRN PRN Reason: INSOMNIA - Past Medical History Past Medical History (Chronic Problems): Chronic Problems CKD (chronic kidney disease) stage 4, GFR 15-29 ml/min (Chronic) History of renal transplant (Chronic) History of gastric cancer (Chronic) Essential hypertension (Chronic) Anemia, chronic renal failure (Chronic) - Past Surgical History Surgical History: - - renal transplant from mother Feb 2010 - Social History Smoking Status: Former smoker Alcohol: None Drugs: None - Family History Maternal History Items: No pertinent history Review of Systems Constitutional: Reports: Anorexia, Chills, Weakness, Fatigue, - Eyes: Denies: Vision Change HEENT: Denies: Head Aches Cardiovascular: Reports: Chest Pain, Palpitations. Denies: Edema, Syncope Respiratory: Reports: Cough, Shortness of Breath, Shortness of breath upon exertion. Denies: Hemoptysis Gastrointestinal: Reports: - - Anorexia, Early satiety. Denies: Abdominal Pain, Hematemesis, Hematochezia, Nausea, Vomiting Genitourinary: Denies: Dysuria Musculoskeletal: Reports: - - No swelling Skin: Denies: Rash Neurological: Denies: Tremor, Seizures Psychiatric: Reports: Depression Hematologic/ Lymphatic: Reports: Anemia - Man[facility] RICKY therapy, -. Denies: Hx of blood clot Patient Problems: Active and Suspected Problems Sepsis (Acute) Pneumonia, bacterial (Acute) JENNIFFER (acute kidney injury) (Acute) - Physical Exam General: Alert, Oriented x3, Cooperative, - - Mild conversational dyspnea, sallow complected, cachectic HEENT: PERRLA, EOMI, Normocephalic Oral: Dry Mucosa Neck: Supple Lungs: No wheeze, Diminished Abdomen: Bowel Sounds Present Extremities: No edema Skin: No rashes Musculoskeletal: Cachexia, Muscle Wasting Neurological: Cranial nerves II-XII grossly intact Psych/Mental Status: Depressed, Alert and oriented to time, place, person, mood and affect Vital Signs Temp Pulse Resp BP Pulse Ox 98.3 F 109 H 18 110/82 H 94 07/04/17 10:00 07/04/17 10:07/04/17 10:07/04/17 10:07/04/17 10:00 Oxygen Flow Rate 5 Oxygen Delivery Method Nasal Cannula Weight: 31.4 kg Body Mass Index (BMI) 13.7 Intake and Output for Last 24 Hours Intake Total 1437 / 1437 926 / 926 Output Total 400 / 400 Balance 1037 / 1037 926 / 926 Microbiology Past 72 Hours 07/03/17 23:20 Legionella Antigen - Final Urine, Clean Catch 07/03/17 23:20 Streptococcus pneumoniae Antigen (M - Final Urine, Clean Catch Streptococcus pneumonia Ag Laboratory Tests Past 24 Hrs WBC 6.8 RBC 1.77 L Hgb 6.7 L Hct 19.8 L MCV 111.9 H MCH 37.9 H MCHC 33.8 WBC RBC Hgb Hct MCV MCH MCHC Clinical Impression(s) from Imaging Studies Chest X-Ray 07/03/17 12:24 IMPRESSION: Left lower lobe consolidation and small left pleural effusion. Right basilar infiltrate. Follow-up is recommended. Electronically Signed: Vikas Haney MD at 12:52 EST Tel [phone], Service support , Assessment/Plan Active and Suspected Problems Sepsis (Acute) Pneumonia, bacterial (Acute) JENNIFFER (acute kidney injury) (Acute) 1. JENNIFFER on CKD stage IV s/p LUR kidney transplant with prerenal component from dehydration, sepsis. Baseline creatinine in the 2 to 3 range last year. Creatinine 5.48 on admission improved to 4.5 today after IV fluids. Discussed possibility of needing to start dialysis if her renal function does not recover. 2. Acute sepsis with Streptococcus pneumoniae. She has mild respiratory distress with tachycardia and tachypnea, hypoxemia. Continue supportive measures. Consider stress dose steroids. 3. S/p kidney transplant. Discussed with transplant environmental field professional at [facility] in regards to adjusting her tacrolimus dose due to renal failure and recent pneumonia. will decrease FK to 1mg bid. Await FK level from yesterday 4. Pancytopenia hemoglobin down to 6.9 g. Transfuse 1 unit packed red cells 5. Failure to thrive with severe protein calorie malnutrition. Albumin at 1.4. She would benefit from TPN therapy. 6. History of CMV stomach ulcers with GI bleed. 7. Due to patient's complicated medical condition and long turnaround time for her antirejection medication levels, would recommend to transfer her to [facility]. Discussed with transplant environmental field professional and hospitalist. 07/04/17 1349 <Electronically signed by Marietta Mcdaniel DO> Date Marietta Mcdaniel DO Cosigner Signature (if applicable): Date CC: Wil To MD; Marietta Mcdaniel DO Signed TYPE AND SCREEN Collected: 07/04/2017 Status: F Source: [place] 11:47 AM [facility] [place] [facility] Order Comment: CMV NEG? N Number of units to transfuse: 1 Reason for Ordering Blood: Acute Are the blood/blood products to be transfused? Y Is the patient having/had surgery? N CMV NEG?* N Give When? When Ready Irradiated? Y Leukodepleted? Y Reason for Type AND Screen/Red Cells: ANEMIA TYPE CODE TESTS RESULT OUT OF RANGE REFERENCE UNITS LAB B10.0800 B Normal BLOOD TYPE GEL POSITIVE LAB B100.4000 Normal Antibody NEGATIVE Screen Performed By: #### B101.7450 #### [facility] [address] [place], [address] Collected: 07/04/2017 Status: F Source: [place] 11:47 AM [facility] [place] [facility] TYPE CODE TESTS RESULT OUT OF REFERENCE UNITS RANGE LAB U100.0000 [id number] TRANSFUSED PRODUCT: T AND S with Crossmatch, Red Cells COUNT: 1 Performed By: #### U100.0000 #### [facility] - refer to report for specific site CBC-COMPLETE BLOOD CNT Collected: 07/04/2017 Status: F Source: [place] NO DIFF 6:23 AM [facility] [place] [facility] TYPE CODE TESTS RESULT OUT OF RANGE REFERENCE UNITS LAB L100.1000 4.4-11.0 K/mm3 Normal WBC 6.8 LAB L100.1200 4.2-5.4 M/mm3 Low RBC 1.77 LAB L100.1300 12.0-15.0 g/dl Low HGB 6.7 LAB L100.1400 37-47 % Low HCT 19.8 LAB L100.1500 81-99 fL High MCV 111.9 LAB L100.1600 27.0-32.0 pg High MCH 37.9 LAB L100.1700 32-36 g/gl Normal MCHC 33.8 LAB L100.1810 11.6-14.6 % Normal RDW CV 14.5 LAB L100.1820 35.1-43.9 fl High RDW SD 56.0 LAB L100.1900 150-450 K/mm3 Low PLT 51 LAB L100.2000 6.2-12.0 fl Normal MPV 11.8 Performed By: #### L100.0500 #### [facility] [address] [place], [address] RENAL PROFILE Collected: 07/04/2017 Status: F Source: [place] 6:23 AM [facility] [place] [facility] TYPE CODE TESTS RESULT OUT OF RANGE REFERENCE UNITS LAB L501.0100 74-106 mg/dL Normal GLU 76 Result Comment: Please note revised GLUCOSE reference range effective 2017. LAB L501.1000 7-18 mg/dL High BUN 63 LAB L501.1100 0.55-1.02 mg/dL High CREAT,SERUM 4.50 Result Comment: The validity of the calculated GFR AND GFRAA in patients over 70 years has not been determined. Clinical correlation is essential. LAB L501.1110 >60 mL/min Low EST GFR 11 Result Comment: Non- GFR Calc LAB L501.1115 >60 mL/min Low EST GFR - AA 14 Result Comment: GFR Calc LAB L501.1255 ml/min Normal Estimated CRCL 7.83 LAB L501.1300 10-20 RATIO Normal BUN/CRE 14.0 LAB L501.1800 3.2-5.0 g/dL Low ALB 1.5 LAB L501.2200 8.5-10. mg/dL Low 1 CA 7.0 LAB L501.2300 2.5-4.9 mg/dL High PHOS 5.2 LAB L501.5300 136-145 mmol/L Normal NA 138 LAB L501.5600 3.5-5.1 mmol/L Normal K 4.7 LAB L501.5900 98-107 mmol/L Normal CL 107 LAB L501.6100 21.0-32 mmol/L Normal .0 CO2 21.0 Performed By: #### L500.3600, L503.6150, L503.6550 #### [facility] [address] [place], [address] IRON Collected: 07/04/2017 Status: F Source: [place] 6:23 AM [facility] [place] [facility] TYPE CODE TESTS RESULT OUT OF RANGE REFERENCE UNITS LAB L503.6150 50-170 ug/dL Low IRON 9 Performed By: #### L500.3600, L503.6150, L503.6550 #### [facility] [address] [place], [address] FERRITIN Collected: 07/04/2017 Status: F Source: [place] 6:23 AM [facility] [place] [facility] TYPE CODE TESTS RESULT OUT OF REFERENCE UNITS RANGE LAB L503.6550 8-252 ng/mL High FERRITIN 1071 Performed By: #### L500.3600, L503.6150, L503.6550 #### [facility] [address] [place], [address] M R STAPH AUREUS Collected: 07/04/2017 Status: F Source: [place] DNA BY PCR 1:15 AM [facility] [place] [facility] Order Comment: Order Date: 07/04/17 Has pt arrived? Y TYPE CODE TESTS RESULT OUT OF RANGE REFERENCE UNITS LAB L8200.1100 Negative Normal MRSA Negative RESULT Performed By: #### L8200.1000 #### [facility] [address] [place], [address] STREP Observed: 07/03/2017 Status: F Source: [place] PNEUMONIAE ANTIG(UR,CSF) 11:20 PM [facility] [place] [facility] Has pt arrived? Y S pneumo Ag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 2. Gastroesophageal reflux disease without esophagitis - ICD9: 530.81, ICD10: K21.9 - Discussed lifestyle modifications including limiting caffeine, no meals three hours before sleep and head of bed elevation - Continue current treatment as per GI recommendations - Setup for EGD in July 2017 - Follow up in 4months - ESOMEPRAZOLE MAGNESIUM 40 MG CAPSULE,DELAYED RELEASE 3. Anxiety - ICD9: 300.00, ICD10: F41.9 - Well controlled. Patient wishes to consider discontinuing Lexapro - ESCITALOPRAM 10 MG TABLET 4. Severe protein-calorie malnutrition (HCC) - ICD9: 262, ICD10: E43 - Ongoing. Co-managed with GI. Scheduled for upcoming EGD 08/03 - DRONABINOL 2.5 MG CAPSULE - OARRS website checked and validated. All prescriptions have been APPROPRIATELY filled. No suspicious activity was identified.- 06/23/2017 by Duy Dumas CNP Prescription instructions reviewed with patient as applicable. Potential red flag symptoms discussed with the patient. Reviewed appropriate action plan to take if red flag symptoms occur. Patient agreeable to treatment plan. Duy Dumas CNP PROGRESS Observed: 06/18/2017 Status: COMPLETED Source: [place] 12:00 AM [facility] REPOSITORY HNO ID: [id number] Author: Andrey Barajas Service: Abstract Author Type: Physician Type: Progress Notes Filed: 06/23/2017 7:58 AM Note Text: [facility] NOTE NAME: VAL VALVERDE [facility] NO[facility] [id number] DATE OF SERVICE: 06/18/2017 SUBJECTIVE: Val was seen by me in [place]. She has a very complicated history of a young age gastric cancer. She is status post resection and developed an anastomotic ulceration. She is status post kidney transplant on chronic immunosuppression and developed an anastomotic CMV ulceration that was very difficult to treat. On our last endoscopy was December 25, 2016 which revealed normal esophagus, Layne-en-Y gastrojejunostomy, gastrojejunal anastomotic anastomosis characterized by clean base ulceration and friable mucosa. The patient has been treated intensively through the ID Department and indicates that her last CMV titers have been unremarkable and appears that this was March 03, 2017. The patient had been doing well. She has always struggle with weight with a maximal weight being approximately 91 pounds. She has also felt to have pancreatic insufficiency on the basis of fecal fat was placed on pancreatic enzyme replacement and has done much better. She is complaining of increased epigastric abdominal pain. At this point, she has had no nausea, vomiting, or melena. OBJECTIVE: Vital signs show a blood pressure of 129/89, a pulse of 88, a weight of 72.6 which has actually been steady for the patient. Abdomen is moderate tenderness in the epigastrium. No guarding or rebound. MEDICATIONS: Include prednisone vitamin D3, Norvasc, Nexium, Lexapro, Prograf, Pepcid, multivitamins, sodium bicarbonate, Marinol, Creon, gabapentin, B12 injection, Roxicodone, Mirena IUD, , Colistin. IMPRESSION AND RECOMMENDATIONS: Patient has had a longstanding persistent anastomotic ulceration. This was positive for CMV. CMV titers after aggressive treatment are now negative because of the increasing epigastric pain at this time. Would plan for a repeat EGD with biopsy of any anastomotic ulceration as seen. Patient is in strong agreement with this and this has been set up. Sincerely, DICTATED BY: Luca Alexandre JOB# [id number] [place] ABS GR + CBC Collected: 06/16/2017 Status: F Source: [place] 11:17 AM [facility] REPOSITORY TYPE CODE TESTS RESULT OUT OF REFERENCE UNITS RANGE LAB WWBC 3.70-11.00 k/uL [place] WBC 8.91 LAB WRBC 3.90-5.20 m/uL Low [place] RBC 2.68 LAB WHGB 11.5-15.5 g/dL Low [place] Hemoglobin 10.0 LAB WHCT 36.0-46.0 % Low [place] Hematocrit 30.7 LAB WMCV 80.0-100.0 fL [place] High MCV 114.6 Result Comment: Result rechecked. LAB WMCH 26.0-34.0 pg High [place] MCH 37.3 LAB WMCHC 30.5-36.0 g/dL [place] MCHC 32.6 LAB WRDW 11.5-15.0 % [place] RDW 14.7 LAB WPLT 150-400 k/uL [place] 159 Platelet Cnt LAB WMPV 9.0-12.7 fL [place] MPV 10.7 Result Comment: Test performed at: [facility] [place], [address] [place] [address]. LAB ABGRAN 1.45-7.50 k/uL Absol Gran 5.57 Count Result Comment: Reviewed Performed By: #### WAGCBC #### [facility] [address] [place], [place] [address] HOSP Observed: 06/16/2017 Status: COMPLETED Source: [place] 10:45 AM [facility] REPOSITORY Infusion Center ([facility]) VAL VALVERDE ([id number]) 1970 F TRN Date Time Provider Department 06/16/17 10:45 AM [facility] During your visit today, we recorded the following information about you: Reyes Galvez LPN, LPN 06/16/2017 12:16 PM Signed Injection deferred,Parameters not met HGB 10.0 Reyes Galvez LPN Referring Provider: ALEX TIAN [[id number]] Allergies As of Date: 06/16/2017 Noted Allergy Reaction SULFA (SULFONAMIDE ANTIBIOTICS) 04/07/2001 4 - Hives Comments: hives NSAIDS (NON-STEROIDAL ANTI-INFLAM*04/23/2016 5 - Intolerance Date Reviewed: 06/04/2017 Reviewed by: Reyes Brian (It Systems Manager) OPAL Galvez - Fully Assessed Primary Visit Diagnosis:Anemia in stage 3 chronic kidney disease [N18.3, D63.1] Prescriptions as of 06/16/2017 Sig: PREDNISONE 5 MG TABLET Take 1 tablet by mouth once d* CHOLECALCIFEROL (VITAMIN D3) * Take 1 capsule by mouth once * AMLODIPINE 2.5 MG TABLET Take 1 tablet by mouth once d* ESOMEPRAZOLE MAGNESIUM 40 MG * Take 1 capsule by mouth DAILY* POLYETHYLENE GLYCOL 3350 17 G* To take once scoop daily ESCITALOPRAM 10 MG TABLET Take 1 tablet by mouth every * WZYSCX-EYIMWIPZ-LMTWJFE 12,00* Take 1 capsule by mouth three* TACROLIMUS 1 MG CAPSULE Take (2) capsules by mouth ev* FAMOTIDINE 20 MG TABLET Take 1 tablet by mouth once d* CALCIUM CITRATE-ERGOCALCIFERO* Take 2 tablets by mouth twice* MULTIVITAMIN TABLET Take 1 tablet by mouth once d* SODIUM BICARBONATE 650 MG TAB* Take 1 tablet by mouth once d* DRONABINOL 2.5 MG CAPSULE To take 5 mgs in the morning * Patient taking differently: Take 2.5 mg by mouth four adrianna* THERAPEUTIC MULTIVITAMIN TABL* Take 1 tablet by mouth twice * CREON ORAL Take 12,000 Units by mouth th* GABAPENTIN ORAL Take 300 mg by mouth twice da* CYANOCOBALAMIN (VIT B-12) 1,0* Inject 1 mL intramuscularly o* OXYCODONE 5 MG TABLET Take 1 tablet by mouth every * LEVONORGESTREL 20 MCG/24 HR (* 1 Each by INTRAUTERINE route * SYRINGE (DISPOSABLE) 1 ML 1 mL as directed. TIZANIDINE 4 MG TABLET Take 1 tablet by mouth every * Problem List As Of Date 06/16/2017 Noted Resolved Anemia in chronic kidney disease [N18.9, D63.1] INVALID FOR* More... Chronic kidney disease, stage III (moderate) [N*INVALID FOR* More... History of gastric cancer [Z85.028] INVALID FOR*12/30/2016 More... 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 GERD (gastroesophageal reflux disease) [K21.9] INVALID FOR* Weight loss [R63.4] INVALID FOR* More... CRD (chronic renal disease) [N18.9] INVALID FOR* Reflux esophagitis [K21.0] INVALID FOR* GIB (gastrointestinal bleeding) [K92.2] INVALID FOR*12/30/2016 More... Acute blood loss anemia [D62] INVALID FOR* More... 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 Essential hypertension [I10] INVALID FOR* More... Peptic ulcer disease with hemorrhage [K27.4] INVALID FOR*12/30/2016 Sfcjy-ln-ceyeoic kidney injury (HCC) [N17.9, N1*INVALID FOR*12/30/2016 More... Nausea AND vomiting [R11.2] INVALID FOR*12/30/2016 More... GI bleed [K92.2] INVALID FOR* Priority: C More... History of gastric cancer [Z85.028] INVALID FOR* Pancytopenia (HCC) [D61.818] INVALID FOR* Priority: B Central line infection [T80.219A] INVALID FOR*02/27/2017 Priority: A More... Severe protein-calorie malnutrition (HCC) [E43] INVALID FOR* Hx of transfusion [Z92.89] INVALID FOR* More... Visit Notes: >> Reyes Galvez LPN FriJun 16, 2017 12:14 PM Status: Signed Injection deferred,Parameters not met HGB 10.0 Reyes Galvez LPN Encounter Status:Closed by REYES GALVEZ on 06/16/17 [place] ABS GR + CBC Collected: 06/04/2017 Status: F Source: [place] 1:08 PM [facility] REPOSITORY TYPE CODE TESTS RESULT OUT OF REFERENCE UNITS RANGE LAB WWBC 3.70-11.00 k/uL [place] High WBC 11.15 LAB WRBC 3.90-5.20 m/uL Low [place] RBC 2.63 LAB WHGB 11.5-15.5 g/dL Low [place] Hemoglobin 9.6 LAB WHCT 36.0-46.0 % Low [place] Hematocrit 29.6 LAB WMCV 80.0-100.0 fL [place] High MCV 112.5 LAB WMCH 26.0-34.0 pg [place] High MCH 36.5 LAB WMCHC 30.5-36.0 g/dL [place] MCHC 32.4 LAB WRDW 11.5-15.0 % [place] RDW 13.7 LAB WPLT 150-400 k/uL Low [place] Platelet Cnt 143 LAB WMPV 9.0-12.7 fL [place] MPV 11.1 Result Comment: Test performed at: [facility], [address] [place] [address]. LAB ABGRAN 1.45-7.50 k/uL High Absol 9.50 Gran Count COMP METABOLIC PANEL Collected: 06/04/2017 Status: F Source: [place] 1:08 PM [facility] REPOSITORY TYPE CODE TESTS RESULT OUT OF REFERENCE UNITS RANGE LAB TP 6.3-8.0 g/dL Low Protein, Total 5.6 LAB ALB 3.9-4.9 g/dL Low Albumin 3.2 LAB CA 8.5-10.2 mg/dL Low Calcium, Total 8.2 LAB TBIL 0.2-1.3 mg/dL Bilirubin, Total 0.2 LAB ALKP 32-117 U/L Alkaline Phosphatase 72 LAB AST 13-35 U/L AST 19 LAB GLU 74-99 mg/dL Glucose High 103 Result Comment: The [place] Diabetes Association (ADA) provides guidance for cutoff values for fasting glucose and random glucose. The ADA defines fasting as no caloric intake for at least 8 hours. Fas ting plasma glucose results between 100 to 125 mg/dL indicate increased risk for diabetes (prediabetes). Fasting plasma glucose results greater than or equal to 126 mg/dL meet the criteria for diagnosis of diabetes. In the absence of unequivocal hyperglycemia, results should be confirmed by repeat testing. In a patient with classic symptoms of hyperglycemia or hyperglycemic crisis, random plasma glucose results greater than or equal to 200 mg/dL meet the criteria for diagnosis of diabetes. Reference: Standards of Medical Care in Diabetes 2016, [place] [employer] Association. Diabetes Care. 2016.39(Suppl 1). LAB BUN 7-21 mg/dL BUN High 47 LAB CRET 0.58-0.96 mg/dL Creatinine High 3.92 LAB NA 136-144 mmol/L Sodium 141 LAB K 3.7-5.1 mmol/L Potassium 4.4 LAB CL 97-105 mmol/L Chloride 105 LAB CO2 22-30 mmol/L Low CO2 21 LAB AGAP 9-18 mmol/L Anion Gap 15 LAB ALT 7-38 U/L ALT 12 LAB GFRAA eGFR- Amer. 15 LAB GFRNAA . eGFR-All Other Races 12 Result Comment: eGFR (Estimated GFR) Units of measure: mL/min/1.73 meters squared eGFR is derived from the reexpressed MDRD Study equation using the following parameters: serum creatinine, age, gender and race. The creatinine assay has been calibrated to be traceable to IDMS. An eGFR <60 mL/min/1.73m2 for >3 months is consistent with chronic kidney disease. Refer to KDOQI guidelines for clinical interpretation. In patients with unstable renal function, e.g. those with acute kidney injury, the eGFR may not accurately reflect actual GFR. Performed By: #### CMP, BKQUAN #### [facility] [address], [place] [address] BK VIRUS PCR,QUANT,P Collected: 06/04/2017 Status: F Source: [place] 1:08 [facility] REPOSITORY TYPE CODE TESTS RESULT OUT OF REFERENCE UNITS RANGE LAB BKVDNA copies/mL BK Negative for Virus DNA BK virus DNA QN PCR by PCR Result Comment: Reference Range: Negative for BK virus DNA The Linear Range of this assay is 500 copies/mL to 5,000,000 copies/mL. This test was developed and its performance characteristics determined by [facility]'s [place] [place] ([facility]). It has not been cleared or approved by the FDA. [facility] is regulated under CLIA as qualified to perform high-complexity testing. This test is used for clinical purposes. It should not be regarded as investigational or for research. Performed By: #### CMP, BKQUAN #### [facility] [address] [place], [place] [address] TACROLIMUS / FK506 Collected: 06/04/2017 Status: F Source: [place] 1:07 [facility] REPOSITORY TYPE CODE TESTS RESULT OUT OF REFERENCE UNITS RANGE LAB FK506 5.0-20.0 ng/mL Tacrolimus / 9.2 FK506 Result Comment: These reference ranges are provided as a general recommendation. Individualized target levels for a given patient will depend on many factors (including the type of organ transplant, ti me since transplantation, concurrent medications, and other clinical factors), and should be assessed by those health care providers experienced in the management of immunosuppression. Reference ranges and high/low indicator flags are provided as general guidelines only. The treating physician must determine appropriate target levels/dosing based on the specific clinical situation. Test performed by chemiluminescent immunoassay using [employer] Staff Member. Performed By: #### FK506 #### [facility] [address] [place], [place] [address] HOSP Observed: 06/04/2017 Status: COMPLETED Source: [place] 11:00 AM [facility] REPOSITORY Infusion Center ([facility]) VAL VALVERDE ([id number]) 1970 F TRN Date Time Provider Department 06/04/17 11:00 AM INJECTION [facility] During your visit today, we recorded the following information about you: Temperature Pulse Blood pressure Weight 97.2 degrees 85/minute 115/75 33.8 kg Reyes Galvez LPN, OPAL 06/04/2017 1:59 PM Signed Patient presents with: Imm/Inj Pt is identified by name and birthdate: Yes. Allergies and medications reviewed. Latex allergy? No. Does this patient have: Unplanned weight loss or gain of greater than 10 pounds, or a change of appetite over the last year? No Does the patient have any concerns about safety in the home/falls? Not at risk for falls Has the patient fallen in the past year? No Does the patient have difficulty performing or completing routine daily living activities? No Does this patient have concerns about personal safety? No Is patient having pain? Pain: No=0 (pain 0 on a scale of 0-10). Health Maintenance: Reviewed and updated. Does patient have MyChart access or Caregiver proxy: yes Pt/Caregiver willingness and readiness to learn assessed: Yes. Barriers: none aranesp injection administered, tolerated well, no immediate adverse reactions noted. Reyes Galvez LPN Referring Provider: ALEX TIAN [[id number]] Allergies As of Date: 06/04/2017 Noted Allergy Reaction SULFA (SULFONAMIDE ANTIBIOTICS) 04/07/2001 4 - Hives Comments: hives NSAIDS (NON-STEROIDAL ANTI-INFLAM*04/23/2016 5 - Intolerance Date Reviewed: 06/04/2017 Reviewed by: Reyes Brian (Opal) OPAL Galvez - Fully Assessed Reason for Visit: Imm/Inj [58] Primary Visit Diagnosis:Stage 4 chronic kidney disease (HCC) [N18.4] Other Visit Diagnoses:Kidney transplant recipient [Z94.0] Anemia in stage 4 chronic kidney disease (HCC) [N18.4, D63.1] Order(s):[] Darbepoetin Liu In Polysorbat 60 mcg injection (ARANESP)Disp: Rfl: Prescriptions as of 06/04/2017 Sig: FLUCONAZOLE 100 MG TABLET Take 1 tablet by mouth once d* CHOLECALCIFEROL (VITAMIN D3) * Take 1 capsule by mouth once * AMLODIPINE 2.5 MG TABLET Take 1 tablet by mouth once d* ESOMEPRAZOLE MAGNESIUM 40 MG * Take 1 capsule by mouth DAILY* POLYETHYLENE GLYCOL 3350 17 G* To take once scoop daily ESCITALOPRAM 10 MG TABLET Take 1 tablet by mouth every * BSCFEP-VIJGWACD-ELOIPTT 12,00* Take 1 capsule by mouth three* TACROLIMUS 1 MG CAPSULE Take (2) capsules by mouth ev* FAMOTIDINE 20 MG TABLET Take 1 tablet by mouth once d* CALCIUM CITRATE-ERGOCALCIFERO* Take 2 tablets by mouth twice* MULTIVITAMIN TABLET Take 1 tablet by mouth once d* SODIUM BICARBONATE 650 MG TAB* Take 1 tablet by mouth once d* DRONABINOL 2.5 MG CAPSULE To take 5 mgs in the morning * Patient taking differently: Take 2.5 mg by mouth four adrianna* THERAPEUTIC MULTIVITAMIN TABL* Take 1 tablet by mouth twice * GABAPENTIN ORAL Take 300 mg by mouth twice da* PREDNISONE 5 MG TABLET Take 1 tablet by mouth once d* CYANOCOBALAMIN (VIT B-12) 1,0* Inject 1 mL intramuscularly o* OXYCODONE 5 MG TABLET Take 1 tablet by mouth every * LEVONORGESTREL 20 MCG/24 HR (* 1 Each by INTRAUTERINE route * SYRINGE (DISPOSABLE) 1 ML 1 mL as directed. TIZANIDINE 4 MG TABLET Take 1 tablet by mouth every * CREON ORAL Take 12,000 Units by mouth th* Problem List As Of Date 06/04/2017 Noted Resolved Anemia in chronic kidney disease [N18.9, D63.1] INVALID FOR* More... Chronic kidney disease, stage III (moderate) [N*INVALID FOR* More... History of gastric cancer [Z85.028] INVALID FOR*12/30/2016 More... 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 GERD (gastroesophageal reflux disease) [K21.9] INVALID FOR* Weight loss [R63.4] INVALID FOR* More... CRD (chronic renal disease) [N18.9] INVALID FOR* Reflux esophagitis [K21.0] INVALID FOR* GIB (gastrointestinal bleeding) [K92.2] INVALID FOR*12/30/2016 More... Acute blood loss anemia [D62] INVALID FOR* More... 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 Essential hypertension [I10] INVALID FOR* More... Peptic ulcer disease with hemorrhage [K27.4] INVALID FOR*12/30/2016 Njrvb-mv-yfolyhj kidney injury (HCC) [N17.9, N1*INVALID FOR*12/30/2016 More... Nausea AND vomiting [R11.2] INVALID FOR*12/30/2016 More... GI bleed [K92.2] INVALID FOR* Priority: C More... History of gastric cancer [Z85.028] INVALID FOR* Pancytopenia (HCC) [D61.818] INVALID FOR* Priority: B Central line infection [T80.219A] INVALID FOR*02/27/2017 Priority: A More... Severe protein-calorie malnutrition (HCC) [E43] INVALID FOR* Hx of transfusion [Z92.89] INVALID FOR* More... Visit Notes: >> Reyes Galvez LPN Wed Jun 04, 2017 1:54 PM Status: Signed Patient presents with: Imm/Inj Pt is identified by name and birthdate: Yes. Allergies and medications reviewed. Latex allergy? No. Does this patient have: Unplanned weight loss or gain of greater than 10 pounds, or a change of appetite over the last year? No Does the patient have any concerns about safety in the home/falls? Not at risk for falls Has the patient fallen in the past year? No Does the patient have difficulty performing or completing routine daily living activities? No Does this patient have concerns about personal safety? No Is patient having pain? Pain: No=0 (pain 0 on a scale of 0-10). Health Maintenance: Reviewed and updated. Does patient have MyChart access or Caregiver proxy: yes Pt/Caregiver willingness and readiness to learn assessed: Yes. Barriers: none aranesp injection administered, tolerated well, no immediate adverse reactions noted. Reyes Galvez LPN Prescriptions ordered this encounter Disp Refills Start End DARBEPOETIN LIU 60 MCG/0.3 ML IN PO* 06/04/2017 06/04/2017 Route: SUBCUTANEOUS Encounter Status:Closed by REYES GALVEZ on 06/04/17 PROGRESS Observed: 05/26/2017 Status: COMPLETED Source: [place] 12:42 PM [facility] REPOSITORY HNO ID: [id number] Author: Bryan Ruggiero (Dayanna) Hanane Service: (none) Author Type: Nurse Practitioner Type: Progress Notes Filed: 05/26/2017 12:44 PM Note Text: Will repeat scr. and FK with next labs. Latest FK level was 13hr trough on 06/19; await repeat to determine if adjustment necessary. As per Dr. Silva, pt has severe heartburn and extensive reflux noted on Small bowel series; not felt to be caused by CMV. 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 Will d/w Dr. Hameed, but most likely plan will be to continue hold MMF. Bryan Koo RN CNP TACROLIMUS / FK506 Collected: 05/22/2017 Status: F Source: [place] 10:31 AM [facility] REPOSITORY TYPE CODE TESTS RESULT OUT OF REFERENCE UNITS RANGE LAB FK506 5.0-20.0 ng/mL Tacrolimus / 14.0 FK506 Result Comment: These reference ranges are provided as a general recommendation. Individualized target levels for a given patient will depend on many factors (including the type of organ transplant, ti me since transplantation, concurrent medications, and other clinical factors), and should be assessed by those health care providers experienced in the management of immunosuppression. Reference ranges and high/low indicator flags are provided as general guidelines only. The treating physician must determine appropriate target levels/dosing based on the specific clinical situation. Test performed by chemiluminescent immunoassay using [employer]. Performed By: #### FK506 #### [facility] [address] [place], [place] [address] [facility] ABS GR + CBC Collected: 05/22/2017 Status: F Source: [place] 10:30 AM [facility] REPOSITORY TYPE CODE TESTS RESULT OUT OF REFERENCE UNITS RANGE LAB WWBC 3.70-11.00 k/uL [place] WBC 9.61 LAB WRBC 3.90-5.20 m/uL Low [place] RBC 2.83 LAB WHGB 11.5-15.5 g/dL Low [place] Hemoglobin 10.5 LAB WHCT 36.0-46.0 % Low [place] Hematocrit 31.6 LAB WMCV 80.0-100.0 fL [place] High MCV 111.7 Result Comment: Result rechecked. Reviewed LAB WMCH 26.0-34.0 pg High [place] MCH 37.1 LAB WMCHC 30.5-36.0 g/dL [place] MCHC 33.2 LAB WRDW 11.5-15.0 % [place] RDW 13.9 LAB WPLT 150-400 k/uL Low [place] 129 Platelet Cnt LAB WMPV 9.0-12.7 fL [place] MPV 10.0 Result Comment: Test performed at: [facility], [address] [place] [address]. LAB ABGRAN 1.45-7.50 k/uL Absol Gran 6.62 Count Performed By: #### WAGCBC #### [facility] [address] [place], [place] [address] HOSP Observed: 05/22/2017 Status: COMPLETED Source: [place] 10:00 AM [facility] REPOSITORY Infusion Center ([facility]) ABRAMVAL ([id number]) 1970 F TRN Date Time Provider Department 05/22/17 10:00 AM [facility] During your visit today, we recorded the following information about you: Alana Millan LPN 05/22/2017 10:49 AM Signed Aranesp injection deferred. Parameters not met. Hgb 10.5. Alana Millan LPN Referring Provider: ALEX TIAN [[id number]] Allergies As of Date: 05/22/2017 Noted Allergy Reaction SULFA (SULFONAMIDE ANTIBIOTICS) 04/07/2001 4 - Hives Comments: hives NSAIDS (NON-STEROIDAL ANTI-INFLAM*04/23/2016 5 - Intolerance Date Reviewed: 05/06/2017 Reviewed by: Ginger Hernandez LPN - Fully Assessed Primary Visit Diagnosis:Anemia in stage 3 chronic kidney disease [N18.3, D63.1] Prescriptions as of 05/22/2017 Sig: CHOLECALCIFEROL (VITAMIN D3) * Take 1 capsule by mouth once * AMLODIPINE 2.5 MG TABLET Take 1 tablet by mouth once d* ESOMEPRAZOLE MAGNESIUM 40 MG * Take 1 capsule by mouth DAILY* POLYETHYLENE GLYCOL 3350 17 G* To take once scoop daily ESCITALOPRAM 10 MG TABLET Take 1 tablet by mouth every * [id number]-GIOXPJW 00* Take 1 capsule by mouth three* TACROLIMUS 1 MG CAPSULE Take (2) capsules by mouth ev* FAMOTIDINE 20 MG TABLET Take 1 tablet by mouth once d* CALCIUM CITRATE-ERGOCALCIFERO* Take 2 tablets by mouth twice* MULTIVITAMIN TABLET Take 1 tablet by mouth once d* SODIUM BICARBONATE 650 MG TAB* Take 1 tablet by mouth once d* DRONABINOL 2.5 MG CAPSULE To take 5 mgs in the morning * Patient taking differently: Take 2.5 mg by mouth four adrianna* THERAPEUTIC MULTIVITAMIN TABL* Take 1 tablet by mouth twice * CREON ORAL Take 12,000 Units by mouth th* GABAPENTIN ORAL Take 300 mg by mouth twice da* PREDNISONE 5 MG TABLET Take 1 tablet by mouth once d* CYANOCOBALAMIN (VIT B-12) 1,0* Inject 1 mL intramuscularly o* OXYCODONE 5 MG TABLET Take 1 tablet by mouth every * LEVONORGESTREL 20 MCG/24 HR (* 1 Each by INTRAUTERINE route * SYRINGE (DISPOSABLE) 1 ML 1 mL as directed. TIZANIDINE 4 MG TABLET Take 1 tablet by mouth every * Problem List As Of Date 05/22/2017 Noted Resolved Anemia in chronic kidney disease [N18.9, D63.1] INVALID FOR* More... Chronic kidney disease, stage III (moderate) [N*INVALID FOR* More... History of gastric cancer [Z85.028] INVALID FOR*12/30/2016 More... 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 GERD (gastroesophageal reflux disease) [K21.9] INVALID FOR* Weight loss [R63.4] INVALID FOR* More... CRD (chronic renal disease) [N18.9] INVALID FOR* Reflux esophagitis [K21.0] INVALID FOR* GIB (gastrointestinal bleeding) [K92.2] INVALID FOR*12/30/2016 More... Acute blood loss anemia [D62] INVALID FOR* More... 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 Essential hypertension [I10] INVALID FOR* More... Peptic ulcer disease with hemorrhage [K27.4] INVALID FOR*12/30/2016 Kbufx-lq-hipumcv kidney injury (HCC) [N17.9, N1*INVALID FOR*12/30/2016 More... Nausea AND vomiting [R11.2] INVALID FOR*12/30/2016 More... GI bleed [K92.2] INVALID FOR* Priority: C More... History of gastric cancer [Z85.028] INVALID FOR* Pancytopenia (HCC) [D61.818] INVALID FOR*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 this patient. I have reviewed the information that the INFORMATICA MDM ARCHITECT entered for this encounter. Greater than 30 minutes total time used this visit to review old chart, review new information, update current history and evaluate patient. A majority of the time was spent in discussion and counseling to formulate the plan. DICK Berg CNP, RN ACCOUNTING MACHINE MECHANIC 05/06/2017 2:33 PM Signed Please follow the instructions for the test that looks at your stomach and small bowel. It will take a day or two after the test for us to get the results. Call [phone], and ask to speak to a nurse in GI, if you have any questions or concerns in the mean time. I will forward your chart to Dr. Ayala for his comment/recommendation. Referring Provider: WIL TO [[id number]] Allergies As of Date: 05/06/2017 Noted Allergy Reaction SULFA (SULFONAMIDE ANTIBIOTICS) 04/07/2001 4 - Hives Comments: hives NSAIDS (NON-STEROIDAL ANTI-INFLAM*04/23/2016 5 - Intolerance Date Reviewed: 05/06/2017 Reviewed by: Ginger Hernandez LPN - Fully Assessed Reason for Visit: Constipation [25] Primary Visit Diagnosis:Nausea and vomiting, intractability of vomiting not specified, unspecified vomiting type [R11.2] Other Visit Diagnosis:Other acute gastritis without hemorrhage [K29.00] Order(s):XR UPPER GI W SMALL BOWEL SERIES [[id number]] Order #: [id number] FUTURE Prescriptions as of 05/06/2017 Sig: CHOLECALCIFEROL (VITAMIN D3) * Take 1 capsule by mouth once * AMLODIPINE 2.5 MG TABLET Take 1 tablet by mouth once d* ESOMEPRAZOLE MAGNESIUM 40 MG * Take 1 capsule by mouth DAILY* POLYETHYLENE GLYCOL 3350 17 G* To take once scoop daily ESCITALOPRAM 10 MG TABLET Take 1 tablet by mouth every * KGXQBP-FEHQEINC-HBLNFMN 12,00* Take 1 capsule by mouth three* TACROLIMUS 1 MG CAPSULE Take (2) capsules by mouth ev* FAMOTIDINE 20 MG TABLET Take 1 tablet by mouth once d* CALCIUM CITRATE-ERGOCALCIFERO* Take 2 tablets by mouth twice* MULTIVITAMIN TABLET Take 1 tablet by mouth once d* SODIUM BICARBONATE 650 MG TAB* Take 1 tablet by mouth once d* DRONABINOL 2.5 MG CAPSULE To take 5 mgs in the morning * Patient taking differently: Take 2.5 mg by mouth four adrianna* THERAPEUTIC MULTIVITAMIN TABL* Take 1 tablet by mouth twice * CREON ORAL Take 12,000 Units by mouth th* GABAPENTIN ORAL Take 300 mg by mouth twice da* PREDNISONE 5 MG TABLET Take 1 tablet by mouth once d* CYANOCOBALAMIN (VIT B-12) 1,0* Inject 1 mL intramuscularly o* OXYCODONE 5 MG TABLET Take 1 tablet by mouth every * LEVONORGESTREL 20 MCG/24 HR (* 1 Each by INTRAUTERINE route * SYRINGE (DISPOSABLE) 1 ML 1 mL as directed. TIZANIDINE 4 MG TABLET Take 1 tablet by mouth every * Problem List As Of Date 05/06/2017 Noted Resolved Anemia in chronic kidney disease [N18.9, D63.1] INVALID FOR* More... Chronic kidney disease, stage III (moderate) [N*INVALID FOR* More... History of gastric cancer [Z85.028] INVALID FOR*12/30/2016 More... 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 GERD (gastroesophageal reflux disease) [K21.9] INVALID FOR* Weight loss [R63.4] INVALID FOR* More... CRD (chronic renal disease) [N18.9] INVALID FOR* Reflux esophagitis [K21.0] INVALID FOR* GIB (gastrointestinal bleeding) [K92.2] INVALID FOR*12/30/2016 More... Acute blood loss anemia [D62] INVALID FOR* More... 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 Essential hypertension [I10] INVALID FOR* More... Peptic ulcer disease with hemorrhage [K27.4] INVALID FOR*12/30/2016 Syqin-rz-rjlwqgr kidney injury (HCC) [N17.9, N1*INVALID FOR*12/30/2016 More... Nausea AND vomiting [R11.2] INVALID FOR*12/30/2016 More... GI bleed [K92.2] INVALID FOR* Priority: C More... History of gastric cancer [Z85.028] INVALID FOR* Pancytopenia (HCC) [D61.818] INVALID FOR* Priority: B Central line infection [T80.219A] INVALID FOR*02/27/2017 Priority: A More... Severe protein-calorie malnutrition (HCC) [E43] INVALID FOR* Hx of transfusion [Z92.89] INVALID FOR* More... Other instructions from your clinician: Please follow the instructions for the test that looks at your stomach and small bowel. It will take a day or two after the test for us to get the results. Call [phone], and ask to speak to a nurse in GI, if you have any questions or concerns in the mean time. I will forward your chart to Dr. Ayala for his comment/recommendation. Follow-up and Disposition History Recorded Encounter Status:Closed by KAELYN SAVAGE CNP on 05/07/17 ALLERGIES ALLERGIES DATE TYPE / CODE NAME / CODE REACTION SEVERITY SOURCE 04/27/2018 Drug NSAIDS Other Unknown [facility] Allergy/416 ([facility] 785273(SNOM l Repository ED CT) Anti-Inflamma /[id number](R XNORM) 04/27/2018 Drug Sulfa Hives Unknown [facility] Allergy/416 ([facility]ulf[facility] 166102(SNOM Antibiotics)/ Repository ED CT) [id number](RX NORM) 04/23/2016 Drug NSAIDS INTOLERANCE [facility] Class/57285 (NON-STEROIDA [facility] [place] [address](SNOMED L Repository CT) ANTI-INFLAMMA TORY DRUG) 04/07/2001 Drug SULFA HIVES Med [facility] Class/89838 (SULFONAMIDE [facility] [place] [facility](SNOMED ANTIBIOTICS) Repository CT) ENCOUNTERS ENCOUNTERS ADMIT/DISCHARGE ACCOUNT ADMITTING ENCOUNTER LOCATION SOURCE NUMBER CLASS 04/28/2018/04/28/20 [id number] Ambulatory [address] ing:SDCRoom: Repository AC09 04/27/2018/04/27/20 [id number] Ambulatory BMSBuilding:[address] [place] [facility] Repository 04/21/2018 [id number] [facility] ing:[facility] Repository 04/15/2018 [id number] Ambulatory [facility] ing:POLAB3 Repository 04/13/2018/04/14/20 [id number] Ambulatory [address] Repository 04/13/2018/04/14/20 [id number] Ambulatory [address] Repository 04/06/2018/04/06/20 [id number] Ambulatory [address] Repository 04/06/2018/04/07/20 [id number] Ambulatory [address] Repository 04/01/2018/04/02/20 [id number] Ambulatory [address] Repository 03/20/2018/03/20/20 [id number] Ambulatory [facility] [facility] Repository 03/16/2018/03/17/20 [id number] Ambulatory [place] [facility] Rep[facility] 03/16/2018/03/17/20 [id number] Ambulatory [facility] Rep[facility] 03/12/2018/03/13/20 [id number] Ambulatory [place] [facility] Rep[facility] 03/11/2018 [id number] Ambulatory [facility] ing:OT Repository 03/05/2018/03/06/20 [id number] Ambulatory [place] [facility] Rep[facility] 03/04/2018/03/05/20 [id number] Ambulatory [place] Rep[facility] 02/26/2018/02/28/20 [id number] Ambulatory [place] Rep[facility] 02/16/2018/02/18/20 [id number] Ambulatory [place] [facility] Rep[facility] 02/16/2018/02/17/20 [id number] Ambulatory [place] [facility] [place] [facility] 02/16/2018/04/15/20 [id number] Ambulatory [place] [facility] 02/04/2018/02/06/20 [id number] Ambulatory [facility] 01/30/2018/01/31/20 [id number] Ambulatory [place] [facility] 01/26/2018/01/28/20 [id number] Ambulatory [facility] [facility] 01/26/2018/01/27/20 [id number] Ambulatory [facility] 01/12/2018/01/14/20 [id number] Ambulatory [place] [facility] 01/12/2018/01/13/20 [id number] Ambulatory [facility] 12/30/2017 [id number] [facility]ulatory [facility] 12/29/2017/12/31/19 [id number] Ambulatory [facility] 12/29/2017/12/31/19 [id number] Ambulatory [facility] 12/23/2017/01/22/20 [id number] Ambulatory [facility] 12/23/2017/12/24/19 [id number] Ambulatory [facility] 12/22/2017/12/23/19 [id number] [facility] [place] [facility] 12/15/2017/12/17/19 [id number] [facility] [place] [facility] 12/15/2017/12/17/19 [id number] [facility] [place] [facility] 12/11/2017/12/12/19 [id number] [facility] [place] [facility] 11/17/2017/11/18/19 [id number] [facility] [place] [facility] 11/17/2017/11/19/19 [id number] [facility] [place] [facility] 11/12/2017/11/13/19 [id number] [facility] [place] [facility] 11/03/2017/11/05/19 [id number] [facility] [place] [facility] 11/03/2017/11/04/19 [id number] [facility] [place] [facility] 10/22/2017/10/24/19 [id number] Ambulatory [place] [facility] [place] [facility] 10/20/2017/10/22/19 [id number] [facility] [place] [facility] 10/20/2017/10/22/19 [id number] [facility] [place] [facility] 10/06/2017 [id number] [facility] [place] [facility] 10/06/2017 [id number] [facility] [place] [facility] 10/06/2017/10/07/19 [id number] [facility] [place] [facility] 10/06/2017/10/08/19 [id number] Ambulatory [place] [facility] [place] [facility] 10/01/2017/11/04/19 [id number] [facility] [place] [facility] 09/29/2017/10/01/19 [id number] [facility] [place] [facility] 09/29/2017/09/30/19 [id number] [facility] [place] [facility] 09/24/2017/09/25/19 [id number] [facility] [place] [facility] 09/15/2017/09/16/19 [id number] [facility] [place] [facility] 09/15/2017/09/17/19 [id number] Ambulatory [place] [facility] [place] [facility] 09/15/2017/09/17/19 [id number] [facility] [place] [facility] 09/08/2017/09/10/19 [id number] [facility] [place] [facility] 09/08/2017/09/19/19 [id number] [facility] [place] [facility] 09/03/2017/09/05/19 [id number] [facility] [place] [facility] 09/01/2017/09/05/19 [id number] [facility] [place] [facility] 08/29/2017/09/03/19 [id number] [facility] [place] [facility] 08/27/2017/08/29/19 [id number] [facility] [place] [facility] 08/25/2017/08/27/19 [id number] [facility] [place] [facility] 08/25/2017/08/26/19 [id number] [facility] [place] [facility] 08/20/2017/08/21/19 [id number] [facility] [place] [facility] 08/18/2017/08/19/19 [id number] [facility] [place] [facility] 08/11/2017/08/13/19 [id number] [facility] [place] [facility] 08/11/2017/08/14/19 [id number] [facility] [place] [facility] 08/11/2017/08/13/19 [id number] [facility] [place] [facility] 08/05/2017/08/06/19 [id number] [facility] [place] [facility] 07/31/2017/08/06/19 [id number] [facility] [place] [facility] 07/28/2017/07/29/19 [id number] [facility] [place] [facility] 07/28/2017/07/30/19 [id number] [facility] [place] [facility] 07/25/2017/07/26/19 [id number] [facility] [place] [facility] 07/25/2017/07/31/19 [id number] [facility] [place] [facility] 07/22/2017/07/23/19 [id number] [facility] [place] [facility] 07/21/2017/07/23/19 [id number] [facility] [place] [facility] 07/14/2017/02/26 [id number] [facility] [place] [facility] 07/07/2017/07/07/19 [id number] Ambulatory [address] [place] 07/04/2017/07/14/19 [id number] PROCK, Inpatient [facility] KATHY A Encounter [facility] [place] [facility] 07/03/2017/07/04/19 [id number] Imamura, Inpatient Kesha Alcazar Encounter [facility] ing:PCURoom: Repository [id number]: 1 07/03/2017 [id number] Imamura, Ambulatory BMSBuilding:Laura Alcazar MS.[facility] Repository 07/03/2017 [id number] Imayo, Ambulatory BMSBuilding:Laura Alcazar MS.[facility] Repository 06/30/2017/07/01/19 [id number] Ambulatory [address] Repository 06/30/2017/07/01/19 [id number] Ambulatory [address] [place] 06/23/2017/06/23/19 [id number] Ambulatory [address] [place] 06/18/2017/06/18/19 [id number] Ambulatory [address] [place] 06/16/2017/06/17/19 [id number] Ambulatory [address] [place] 06/16/2017/06/16/19 [id number] Ambulatory [address] [place] 06/04/2017/06/05/19 [id number] Ambulatory [address] [place] 06/04/2017/06/05/19 [id number] Ambulatory [address] [place] 05/22/2017/05/22/19 [id number] Ambulatory [address] [place] 05/22/2017/05/22/19 [id number] Ambulatory [address] [place] 05/16/2017 [id number] Ambulatory [facility] [place] 05/06/2017/05/07/20 [id number] Ambulatory [address] [place] PAYERS PAYERS ENCOUNTER GUARANTOR PAYER SUBSCRIBER SOURCE 04/28/2018 VAL Bright Primary VAL [id number] Insurance:MEDICAL SALVAILDOB: [facility] [id number] Number: Repository [id number]: 330 [id number] [phone] (HP) Date:2520-42-73RH [address] [address]DT: 04/28/2018 Secondary NOT GIVENUNK Kesha Insurance:SELF PAY [facility] Number: Effective Repository Date:2018-04-27 04/27/2018 VAL S Primary VAL S [place] [id number] Insurance:MEDICAL SALVAILDOB: [facility] [id number] Number: Repository [id number]: 330 [id number] [phone] (HP) Date:6099-14-08DA [address] [address]DR: 04/27/2018 Secondary NOT GIVENUNK [place] Insurance:SELF PAY [facility] Number: Effective Repository Date:2018-04-15 04/21/2018 VAL S Primary VAL S [place] [id number] Insurance:MEDICAL SALVAILDOB: [facility] [id number] Number: Repository [id number]: 330 [id number] [phone] (HP) Date:6103-53-70JQ [address] [address]BU: 04/21/2018 Secondary NOT GIVENUNK [place] Insurance:SELF PAY [facility] Number: Effective Repository Date:2018-04-15 04/15/2018 VAL S Primary VAL S [place] [id number] Insurance:MEDICAL SALVAILDOB: [facility] [id number] Number: Repository [id number]: 330 [id number] [phone] (HP) Date:6211-70-27TA [address] [address]VT: 04/15/2018 Secondary NOT GIVENUNK Kesha Insurance:SELF PAY [facility] Number: Effective Repository Date:2018-04-15 03/11/2018 VAL S Primary VAL S [place] [id number] Insurance:MEDICAL SALVAILDOB: [facility] [id number] Number: Repository [id number]: 330 [id number] [phone] (HP) Date:7409-60-35WK [address] [address]PK: 03/11/2018 Secondary NOT GIVENUNK [place] Insurance:SELF PAY [facility] Number: Effective Repository Date:2018-03-02 07/03/2017 Val Primary Val Kesha [id number] Insurance:MEDICAL SalvailDOB: [facility] [id number] Number: Repository [id number]: 330 [id number] [phone] (HP) Date:6146-44-90KP[address] [address]FB: 07/03/2017 Secondary NOT GIVENUNK [place] Insurance:SELF PAY [facility] Number: Effective Repository Date:2017-07-03 07/03/2017 Val Primary Val Kesha [id number] Insurance:MEDICAL SalvailDOB: [facility] [id number] Number: Repository [id number]: 330 [id number] [phone] (HP) Date:5535-65-43JL[address] [address]BT: 07/03/2017 Secondary NOT GIVENUNK [place] Insurance:SELF PAY [facility] Number: Effective Repository Date:2017-07-03 07/03/2017 Val Primary Val [place] [id number] Insurance:MEDICAL SalvailDOB: [facility] [id number] Number: Repository [id number]: 330 [id number] [phone] () Date:3111-24-75[address] [address]AA: 07/03/2017 Secondary NOT GIVENUNK [place] Insurance:SELF PAY [facility] Number: Effective Repository Date:2017-07-03
== END ==
PROVIDERS: Family Provider Internal Medicine; PCP Internal Medicine; Visit Provider Internal Medicine Nephrology
DX: N18.5 Chronic kidney disease, stage 5 (principal)
CPT/HCPCS: 36415; 83970; 86706; 87340

== ENCOUNTER → 2018-04-21 08:02 | Outpatient (CLI) | payer OTHER, SELFPAY ==
[2017-07-03 15:28] VITALS: BMI 13.7
--- NOTE | 2018-04-21 08:12 | VDUE_ITS ---
Reason For Study: Chronic kidney disease type 5 Right Arm Left Arm Right Cephalic Vein at the wrist measures Left Cephalic Vein at the wrist measures 0.37 0.11 x 0.11 cm. x 0.32 cm. Right Cephalic Vein in the forearm measures Left Cephalic Vein in the forearm measures 0.19 x 0.22 cm. 0.23 x 0.24 cm. Right Cephalic Vein below antecub measures Left Cephalic Vein below antecub measures 0.12 0.11 x 0.13 cm. x 0.14 cm. Right Cephalic Vein above antecub measures Left Cephalic Vein above antecub measures 0.13 0.26 x 0.26 cm. x 0.12 cm. Right Cephalic Vein mid bicep measures 0.11 Left Cephalic Vein above antecub is x 0.13 cm. noncompressible with bright intraluminal Right Cephalic Vein at the shoulder echoes. measures 0.15 x 0.18 cm. Basilic vein at origin measures 0.77 x 0.89 Right Basilic Vein at the origin measures cm. 0.49 x 0.53 cm. Basilic vein at bicep measures 0.32 x 0.37 cm. Right Basilic Vein mid bicep measures 0.16 Basilic vein above antecub measures 0.34 x x 0.13 cm. 0.35 cm. Right Basilic Vein above antecub measures Left Brachial Artery measures 0.34 x 0.39 cm 0.30 x 0.33 cm. and a PSV of 86.0 cm/sec. Right Brachial Artery measures 0.45 x 0.52 Left Radial Artery measures 0.21 x 0.23 cm and cm and a PSV of 82.5 cm/sec. a PSV of 87.4 cm/sec. Right Radial Artery measures 0.22 x 0.23 cm and a PSV of 96.6 cm/sec. Interpretation Summary Diminutive cephalic veins bilaterally with chronic superficial thrombophlebitis left antecubital cephalic vein. Small right mid biceps basilic vein Adequate left upper arm basilic vein Normal flow bilateral radial and brachial arteries Ordering Physician: Marietta Mcdaniel Referring Physician: Deb Gregory Performed By: Rosina Vee RVT and Student ?
== END ==
PROVIDERS: Family Provider Internal Medicine; PCP Internal Medicine; Referring Provider Internal Medicine Nephrology; Visit Provider Internal Medicine Nephrology
DX: N18.5 Chronic kidney disease, stage 5 (principal)
CPT/HCPCS: 93970

== ENCOUNTER 2018-04-28 07:57 | Day surgery (SDC) | payer OTHER, SELFPAY ==
[2018-04-27 13:36] VITALS: BMI 13.7
[2018-04-28] VITALS (9 sets, daily range): BP systolic 127–142; BP diastolic 82–94; PULSE 84–101; RESP 16; TEMP 37.2–37.6; O2SAT 93–100; BMI 16.0
[2018-04-28 08:22] LABS: Internal QC Validated? YES +Cl - CLEAR BKGD; Pregnancy, Urine Negative Negative
--- NOTE | 2018-04-28 09:47 | PCM.DC.GS ---
Discharge Activity: May Not Shower Lifting Restrictions: 10 pounds Call your doctor if your incision/area has: Continuous Slow Oozing, Sudden Increased Bleeding, Increased Pain/ Swelling, Increased Redness, Foul Smelling Discharge Call your doctor if you observe: Fever of 101 or Higher Suture Line Care: Avoid Pulling/Pushing, Avoid Pinching/Bending Additional Dressing/Incision Instructions:: Please keep your tunneled catheter dressings clean and dry. The dialysis center should assist with dressing changes. Allergies/Adverse Reactions: Allergies Sulfa (Sulfonamide Antibiotics) Allergy (Verified 04/27/18 17:27) Hives NSAIDS (Non-Steroidal Anti-Inflamma Adverse Reaction (Verified 04/27/18 17:27) Other Medications to take at Discharge Calcium Citrate/Vitamin D3 [Calcium Citrate - Vit D Caplet] 1 ea PO DAILY 07/03/17 Cholecalciferol (Vitamin D3) [Vitamin D3] 50,000 unit PO FR 07/03/17 Cyanocobalamin [Vitamin B12] 1,000 mcg IM Q30D 07/03/17 Dronabinol [Marinol] 2.5 mg PO 4X/DAY 07/03/17 Esomeprazole Mag Trihydrate [Nexium] 40 mg PO DAILY 07/03/17 Gabapentin [Neurontin] 300 mg PO BIDCM 07/03/17 Levonorgestrel [Mirena] 1 each IY 07/03/17 Lipase/Protease/Amylase [Creon Dr 12,000 Units Capsule] 1 ea PO BID 07/03/17 Multivit,Calc,Mins/Iron/Folic [Therapeutic-M Tablet] 1 ea PO DAILY 07/03/17 Oxycodone [Oxyir] 5 mg PO Q8H PRN 07/03/17 Polyethylene Glycol 3350 [Miralax] 17 gm PO DAILY PRN PRN 07/03/17 Prednisone 5 mg PO DAILY 07/03/17 Vits [Prenatabs FA ] 1 tab PO DAILY 07/03/17 Sodium Bicarbonate 650 mg PO DAILY 07/03/17 Tacrolimus [Astagraf Xl] 2 mg PO BREAKFAST 07/03/17 Tacrolimus [Envarsus Xr] 1 mg PO DINNER 07/03/17 Tizanidine HCl [Zanaflex] 4 mg PO Q6H 04/27/18 amlodipine 2.5 mg tablet 10 mg PO DAILY tab 04/27/18 Primary Care Physician: Deb Gregory MD [Primary Care Provider] - Test Results: Test results from this visit will be discussed in further detail at your follow-up appointment, if applicable. Please Follow Up With: Martinez Jenkins MD - [phone] When: Further office follow-up will be scheduled after your fistula
--- NOTE | 2018-04-28 09:52 | DCINST_ITS ---
Discharge Activity: May Not Shower Lifting Restrictions: 10 pounds Call your doctor if your incision/area has: Continuous Slow Oozing, Sudden Increased Bleeding, Increased Pain/ Swelling, Increased Redness, Foul Smelling Discharge Call your doctor if you observe: Fever of 101 or Higher Suture Line Care: Avoid Pulling/Pushing, Avoid Pinching/Bending Additional Dressing/Incision Instructions:: Please keep your tunneled catheter dressings clean and dry. The dialysis center should assist with dressing changes. Allergies/Adverse Reactions: Allergies Sulfa (Sulfonamide Antibiotics) Allergy (Verified 04/27/18 17:27) Hives NSAIDS (Non-Steroidal Anti-Inflamma Adverse Reaction (Verified 04/27/18 17:27) Other Medications to take at Discharge Calcium Citrate/Vitamin D3 [Calcium Citrate - Vit D Caplet] 1 ea PO DAILY 07/03/17 Cholecalciferol (Vitamin D3) [Vitamin D3] 50,000 unit PO FR 07/03/17 Cyanocobalamin [Vitamin B12] 1,000 mcg IM Q30D 07/03/17 Dronabinol [Marinol] 2.5 mg PO 4X/DAY 07/03/17 Esomeprazole Mag Trihydrate [Nexium] 40 mg PO DAILY 07/03/17 Gabapentin [Neurontin] 300 mg PO BIDCM 07/03/17 Levonorgestrel [Mirena] 1 each IY 07/03/17 Lipase/Protease/Amylase [Creon Dr 12,000 Units Capsule] 1 ea PO BID 07/03/17 Multivit,Calc,Mins/Iron/Folic [Therapeutic-M Tablet] 1 ea PO DAILY 07/03/17 Oxycodone [Oxyir] 5 mg PO Q8H PRN 07/03/17 Polyethylene Glycol 3350 [Miralax] 17 gm PO DAILY PRN PRN 07/03/17 Prednisone 5 mg PO DAILY 07/03/17 Vits [Prenatabs FA ] 1 tab PO DAILY 07/03/17 Sodium Bicarbonate 650 mg PO DAILY 07/03/17 Tacrolimus [Astagraf Xl] 2 mg PO BREAKFAST 07/03/17 Tacrolimus [Envarsus Xr] 1 mg PO DINNER 07/03/17 Tizanidine HCl [Zanaflex] 4 mg PO Q6H 04/27/18 amlodipine 2.5 mg tablet 10 mg PO DAILY tab 04/27/18 Primary Care Physician: Deb Gregory MD [Primary Care Provider] - Test Results: Test results from this visit will be discussed in further detail at your follow- up appointment, if applicable. Please Follow Up With: Martinez Jenkins MD - [phone] When: Further office follow-up will be scheduled after your fistula
[2018-04-28] MEDS: Cefazolin 2 GM in 0.9% Normal Saline 100 ML IV (09:57)
[2018-04-28] MEDS: Bupivacaine Mpf 0.5% 30 ML VIAL (10:12)
[2018-04-28] MEDS: Heparin 10,000 UNITS/10 ML Vial 10000 UNITS (10:30)
--- NOTE | 2018-04-28 10:38 | OP.PCM_ITS ---
Problem List (1) Renal transplant rejection Status: Acute Report of Operation Date of Procedure: 04/28/18 Pre-Operative Diagnosis: Renal transplant rejection Post-Operative Diagnosis: Same Surgery/Procedure Performed:: Right internal jugular tunneled 19 cm pre-curved palindrome catheter placement Description of Surgical Findings:: Timeout and informed consent was obtained. 47-year-old female was taken to the operating room. She was placed on the table. Ancef 2 g given intravenous preoperatively. She underwent monitored anesthesia care local anesthetic. 1% lidocaine mixed 50-50 with 0.5% Marcaine was used as local anesthetic. A total of 19 cc was used. The right neck and chest were sterilely prepped and draped. Ultrasound was used to identify the right internal jugular vein. The local was instilled under ultrasound guidance. Micropuncture needle inserted. Micropuncture wire inserted. Local was instilled down upon the chest wall. An exit site was selected. The tubing was tunneled from the chest to the neck site. Fluoroscopy demonstrated good positioning of the wire. A micropuncture sheath was placed. The dilator and wire removed. After a J-wire was placed. Serial dilatation was performed. The sheath dilator was inserted over the J- wire. The dilator wire removed. The catheter was advanced to the sheath. The sheath was split and the catheter was positioned at the SVC atrial junction. It had good curvilinear positioning. It aspirated easily. It was flushed with saline and then of heparinized saline. The neck site was closed with interrupted 5-0 Vicryl subdermal stitch. The catheter was secured to the skin with interrupted 3-0 nylon. Steri-Strip Telfa OpSite dressing applied to the neck. Silver impregnated dressing with OpSite dressing applied to the chest catheter exit site. Sponge and instrument and needle counts were reported to the surgeon to be correct. Blood loss minimal. No apparent complication. She was taken to the recovery area in satisfactory condition without apparent complication. Specimens none. Drains none. Blood loss minimal. Martinez Jenkins M.D., F.A.C.S. Type of Anesthesia:: Local MAC Anesthesiologist: Vlad Fitzgerald
--- NOTE | 2018-04-28 10:47 | RAD_ITS ---
STUDY: X-RAY CHEST REASON FOR EXAM: Female, 47 years old. Dialysis catheter placement. TECHNIQUE: Single AP portable view of the chest. COMPARISON: Comparison is made with prior study dated July 03, 2017. FINDINGS: A right-sided double-lumen dialysis catheter has been placed. The tip is at the junction of the superior vena cava and right atrium. Small left pleural effusion with underlying infiltration and/or atelectasis. Increased markings at the right lung base suggestive of a small right pleural effusion. Normal size heart. Normal mediastinum and jon. Normal visualized pulmonary arteries. Normal visualized aortic arch and descending thoracic aorta. Normal visualized thoracic spine. Normal visualized ribs, clavicles, and shoulders. There is no demonstrated abnormality of the visualized soft tissue structures of the upper abdomen. RAD/CXR for Line Placement IMPRESSION: The tip of the double-lumen dialysis catheter is at the junction of superior vena cava and right atrium. Small left pleural effusion with underlying infiltration and/or atelectasis. Mild increased markings at the left lung base. Electronically Signed: Vikas Haney MD at 11:03 EST Tel [phone], Service support ,
--- NOTE | 2018-04-28 12:52 | SUR.PHASEII ---
DR. TOMLINSON NOTIFIED OF SATURATED DRESSING TO RIGHT CHEST. DOES NOT APPEAR TO BE ACTIVELY BLEEDING NOW. HE ORDERED FOR DRESSING TO BE CHANGED PRIOR TO DISCHARGE.
--- OUTSIDE RECORDS SUMMARY | 2018-06-14 05:53 | XMS RPT_ITS ---
:1970 Author Organization OHIP Support Name Relationship Address Phone KAITLYNN NIYAH Unavailable . + [place] [address] SALVHALLE, MEDARDO Unavailable [address] + [place] [address] UE Unavailable Unavailable Unavailable NIYAH CALDERÓN Unavailable . + [place] [address] SALVHALLE, MEDARDO Unavailable [address] + [place] [address] UE Unavailable Unavailable Unavailable KAITLYNNRAZKY Unavailable Unavailable + SALVAIL, MEDARDO Unavailable [address] + [place] [address] UE Unavailable Unavailable Unavailable KAITLYNN NIYAH Unavailable Unavailable + SALVAIL, MEDARDO Unavailable [address] + [place] [address] UE Unavailable Unavailable Unavailable KAITLYNNRAZKY Unavailable Unavailable + SALVAIL, MEDARDO Unavailable [address] + [place] [address] UE Unavailable Unavailable Unavailable KAITLYNNRAZKY Unavailable Unavailable + [place] [address] SALVAIL, MEDARDO Unavailable [address] + [place] [address] UE Unavailable Unavailable Unavailable SALVAIL, MEDARDO Unavailable [address] + [place] [address] UE Unavailable Unavailable Unavailable SALVAIL, MEDARDO Unavailable [address] + [place] [address] UE Unavailable Unavailable Unavailable KAITLNYNRAZKY Unavailable Unavailable + [place] [address] SALVAIL, MEDARDO Unavailable [address] + [place] [address] UE Unavailable Unavailable Unavailable SALVAIL, MEDARDO Unavailable [address] + [place] [address] UE Unavailable Unavailable Unavailable SALVAIL, MEDARDO Unavailable [address] + [place] [address] UE Unavailable Unavailable Unavailable RBBSY Unavailable [address] [facility] + [place] [address] SALVAIL, MEDARDO Unavailable [address] + [place] [address] RBBSY Unavailable [address] [facility] + [place] [address] SALVAIL, MEDARDO Unavailable [address] + [place] [address] RBBSY Unavailable [address] [facility] + [place] [address] SALVAIL, MEDARDO Unavailable [address] + [place] [address] Care Team Providers Name Role Phone ASMITA, LAPMAN Referring Unavailable ASMITA, LAPMAN Referring Unavailable ANDREY BARAJAS Attending Unavailable DUY DUMAS ([facility]) Attending Unavailable GANWIL BOYD Referring Unavailable ASMITA, LAPMAN Referring Unavailable ASMITA, LAPMAN Referring Unavailable KATHY LOUIS Admitting Unavailable SHANEL MCGARRY) Attending Unavailable ALEJO OLVERA Referring Unavailable SHANEL MCGARRY) Referring Unavailable DUY DUMAS ([facility]) Attending Unavailable ANDREY BARAJAS Attending Unavailable ANDREY BARAJAS Referring Unavailable KERI ADAME ([facility]) Attending Unavailable DAYANNA JORDAN Referring Unavailable BRYAN KOO ([facility]) Referring Unavailable ASMITA, LAPMAN Referring Unavailable BRYAN KOO ([facility]) Attending Unavailable ANDREY BARAJAS Attending Unavailable VANI BALDWIN Attending Unavailable KERI ADAME ([facility]) Referring Unavailable ASMITA, LAPMAN Referring Unavailable ASMITA, LAPMAN Referring Unavailable KERI ADAME ([facility]) Referring Unavailable ASMITA, LAPMAN Referring Unavailable BRYAN KOO ([facility]) Referring Unavailable ASMITA, LAPMAN Referring Unavailable ASMITA, LAPMAN Attending Unavailable ASMITA, LAPMAN Referring Unavailable VANI BALDWIN Attending Unavailable KERI ADAME ([employer]) Referring Unavailable ASMITA, LAPMAN Referring Unavailable ASMITA, LAPMAN Referring Unavailable ASMITA, LAPMAN Referring Unavailable ASIA MENDOZA ([facility]) Attending Unavailable VANI BALDWIN Referring Unavailable ASMITA, LAPMAN Referring Unavailable ASMITA, LAPMAN Referring Unavailable DUY DUMAS ([employer]ERING MA[employer]) Referring Unavailable LARD, BRYAN Graham ([employer] ENGINEERING MANAGER) Referring Unavailable ASMITA, LAPMAN Referring Unavailable ASMITA, LAPMAN Referring Unavailable LARD, BRYAN Graham ([employer]EL ENGINEERING MANAGER) Attending Unavailable HUMBERTO GOODE Referring Unavailable ASMITA, LAPMAN Referring Unavailable PIERSON, AUSTEN Sánchez Attending Unavailable BAGANDREY PARHAME Referring Unavailable LARD, BRYAN Graham ([employer] ENGINEERING MANAGER) Referring Unavailable ASMITA, LAPMAN Referring Unavailable ASMITA, LAPMAN Referring Unavailable GANTA, WIL Attending Unavailable GANTA, WIL Referring Unavailable ASMITA, LAPMAN Referring Unavailable ASMITA, LAPMAN Referring Unavailable LARD, BRYAN Graham (BI[employer]IESEL ENGINEERING MANAGER) Referring Unavailable ASMITA, LAPMAN Referring Unavailable ASMITA, LAPMAN Referring Unavailable PIERSON, AUSTEN F Attending Unavailable PIERSONAUSTEN F Referring Unavailable ASMITA, LAPMAN Referring Unavailable ASMITA, LAPMAN Referring Unavailable LARD, BRYAN Graham (BIODIESEL ENGINEERING MANAGER) Referring Unavailable BAGGOTTANDREYE Attending Unavailable BAGGOTT, ANDREY CENTENO Referring Unavailable LARD, BRYAN Graham (BIODIESEL ENGINEERING MANAGER) Attending Unavailable LARD, BRYAN Graham (BIODIESEL ENGINEERING MANAGER) Referring Unavailable ASMITA, LAPMAN Referring Unavailable ASMITA, LAPMAN Referring Unavailable ASMITA, LAPMAN Referring Unavailable ASMITA, LAPMAN Referring Unavailable ASMITA, LAPMAN Referring Unavailable ASMTIA, LAPMAN Referring Unavailable PIERSON, AUSTEN F Attending Unavailable PIERSON, AUSTEN F Referring Unavailable EMIR FOWLER Attending Unavailable KERI ADAME (BIODIESEL ENGINEERING MANAGER) Referring Unavailable LARD, BRYAN Graham (BIODIESEL ENGINEERING MANAGER) Referring Unavailable ASMITA, LAPMAN Attending Unavailable ASMITA, LAPMAN Referring Unavailable ASMITA, LAPMAN Referring Unavailable GANTA, WIL Referring Unavailable ADAME, AMY (BIODIESEL ENGINEERING MANAGER) Attending Unavailable GANTA, WLI Referring Unavailable GANTA, WIL Referring Unavailable ASMITA, LAPMAN Referring Unavailable ASMITA, LAPMAN Referring Unavailable GANTA, WIL Referring Unavailable GANTA, WIL Attending Unavailable LARD, BRYAN Graham (BIODIESEL ENGINEERING MANAGER) Referring Unavailable DELVIS HAMEED Attending Unavailable ASMITA, LAPMAN Referring Unavailable ASMITA, LAPMAN Referring Unavailable PIERSON, AUSTEN F Referring Unavailable Martinez Jenkins Attending Unavailable Cebul, Martinez Referring Unavailable Ganta, Wil Primary Care Unavailable Cebul, Martinez Attending Unavailable Cebul, Martinez Referring Unavailable Cebul, Martinez Attending Unavailable Jonas, Marietta Referring Unavailable Jonas, Marietta Attending Unavailable Jonas, Marietta Referring Unavailable Ganta, Wil Primary Care Unavailable Duy Dumas Attending Unavailable Wilber, Duy Referring Unavailable Ganta, Wil Primary Care Unavailable Imamura, Yoichi Admitting Unavailable Ganta, Wil Primary Care Unavailable Jonas, Marietta Consulting Unavailable JopperiDionte Attending Unavailable JopperiDionte Consulting Unavailable Imamura, Yoichi Admitting Unavailable Ganta, Wil Primary Care Unavailable Imamura, Yoichi Consulting Unavailable Paintsil, [place] Attending Unavailable Davis PA-C, Asia Attending Unavailable Ganta, Wil Referring Unavailable Cebul, Martinez Attending Unavailable Cebul, Martinez Referring Unavailable Ganta, Wil Primary Care Unavailable Jonas, Marietta Attending Unavailable Ganta, Wil Primary Care Unavailable Ganta, Wil Primary Care Unavailable Imamura, Yoichi Admitting Unavailable Jonas, [place] Consulting Unavailable Dionte Hutchison Attending Unavailable Cebul, Martinez Attending Unavailable Jonas, Marietta Referring Unavailable Davis PA-C, Asia Attending Unavailable Ganta, Wil Referring Unavailable Cebul, Martinez Attending Unavailable Cebul, Martinez Referring Unavailable Ganta, Wil Primary Care Unavailable Cebul, Martinez Consulting Unavailable PROBLEMS PROBLEMS DATE TYPE CONDITION / CODE ATTENDING STATUS SOURCE 06/02/2018 Unknown N18.5 - Chronic Martinez Jenkins Active [place] kidney disease, stage Community 5 / N18.5(ICD-10) Hospital Repository 04/27/2018 Unknown 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 graham 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 Community / T86.11(ICD-10) Hospital Repository 04/06/2018 Active Chronic kidney DELVIS HAMEED Active [place] disease, stage 5 / Clinic Main N18.5(ICD-10) [place] Repository 04/06/2018 Active Gastric ulcer, SA YOSEPHUL Active [place] unspecified as acute Clinic Main or chronic, without [place] hemorrhage or Repository perforation / K25.9(ICD-10) 01/23/2018 Active Vitamin B12 AUSTEN PIERSON Active [place] deficiency anemia due Clinic Main to intrinsic factor [place] deficiency / Repository D51.0(ICD-10) 12/30/2016 Active Essential (primary) AUSTEN PIERSON Active [place] hypertension / Clinic Main I10(ICD-10) [place] Repository 12/30/2017 Active Other specified soft NA Active [place] tissue disorders / Clinic Other M79.89(ICD-10) [place] Repository 12/23/2017 Active Encounter for BRYAN KOO Active [place] screening for other L (BIODIESEL ENGINEERING MANAGER) Clinic Main disorder / [place] Z13.89(ICD-10) Repository 12/23/2017 Active Vitamin D deficiency, BRYAN KOO Active [place] unspecified / L (BIODIESEL ENGINEERING MANAGER) Clinic Main E55.9(ICD-10) [place] Repository 12/23/2017 Active Candidal esophagitis BRYAN KOO Active [place] / B37.81(ICD-10) L (BIODIESEL ENGINEERING MANAGER) Clinic Main [place] Repository 12/23/2017 Active Chronic gastric ulcer ANDREY BARAJAS Active [place] without hemorrhage or [facility]ENT[facility] Clinic Main perforation / [place] K25.7(ICD-10) Repository 08/27/2017 Active Acquired absence of AUSTEN PIERSON Active [place] stomach (part of) / Clinic Main Z90.3(ICD-10) [place] Repository 12/11/2017 Active Other specified AUSTEN PIERSON Active [place] disorders of bone Clinic Main density and [place] structure, Repository unspecified site / M85.80(ICD-10) 10/06/2017 Active Non-pressure chronic NA Active [place] ulcer of skin of Clinic Main other sites with [place] unspecified severity Repository / L98.499(ICD-10) 10/06/2017 Active Cytomegaloviral NA Active [place] disease, unspecified Clinic Main / B25.9(ICD-10) [place] Repository 10/06/2017 Active Other specified AUSTEN PIERSON Active [place] postprocedural states Clinic Main / Z98.890(ICD-10) [place] Repository 09/15/2017 Active Pneumonia, NA Active [place] unspecified organism Clinic Main / J18.9(ICD-10) [place] Repository 09/15/2017 Active Shortness of breath / NA Active [place] R06.02(ICD-10) Clinic Main [place] Repository 08/27/2017 Active Anemia in chronic NA Active [place] kidney disease / Clinic Main D63.1(ICD-10) [place] Repository 08/27/2017 Active Chronic kidney NA Active [place] disease, stage 4 Clinic Main (severe) / [place] N18.4(ICD-10) Repository 07/05/2017 Active Chronic kidney NA Active [place] disease, unspecified Clinic Main / N18.9(ICD-10) [place] Repository 07/05/2017 Active Personal history of NA Active [place] other malignant Clinic Main neoplasm of stomach / [place] Z85.028(ICD-10) Repository 12/04/2015 Active Chronic kidney NA Active [place] disease, stage 3 Clinic Main (moderate) / [place] N18.3(ICD-10) Repository 08/20/2017 Active Other cytomegaloviral NA Active [place] diseases / Clinic Main B25.8(ICD-10) [place] Repository 08/18/2017 Active Encounter for NA Active [place] screening for [facility] Main 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 / [place] Z13.820(ICD-10) Repository 07/25/2017 Active Encounter for NA Active [place] screening mammogram Clinic [facility] for malignant [place] neoplasm of breast / Repository Z12.31(ICD-10) 07/22/2017 Active Gastro-esophageal ANDREY BARAJAS Active [place] reflux disease CENT[facility] Clinic Main without esophagitis / [place] K21.9(ICD-10) Repository 07/14/2017 Active Bacteremia / SHANEL MCGARRY Active [place] R78.81(ICD-10) (MD) Clinic Main [place] Repository 07/14/2017 Active Acute kidney failure, SHANEL MCGARRY Active [place] unspecified / () Clinic Main N17.9(ICD-10) [place] Repository 07/14/2017 Active Other specified SHANEL MCGARRY Active [place] diseases of pancreas () Clinic Main / K86.89(ICD-10) [place] Repository 07/14/2017 Active Unspecified severe SHANEL MCGARRY Active [place] protein-calorie () Clinic Main malnutrition / [place] E43(ICD-10) Repository 07/14/2017 Active Kidney transplant SHANEL MCGARRY Active [place] status / () Clinic Main Z94.0(ICD-10) [place] Repository 07/05/2017 Active Thrombocytopenia, SHANEL MCGARRY Active [place] unspecified / () Clinic Main D69.6(ICD-10) [place] Repository 07/04/2017 Active Acute respiratory SHANEL MCGARRY Active [place] failure with hypoxia () Clinic Main / J96.01(ICD-10) [place] Repository 07/04/2017 Active Acute respiratory BRANDON, SHANEL Active [place] distress syndrome / () Clinic Main J80(ICD-10) [place] Repository 07/04/2017 Active Influenza due to BRANDONSHANEL Smith [facility] identified novel () [facility] Main influenza A virus [place] with pneumonia / Repository J09.X1(ICD-10) 07/04/2017 Active [facility] () [facility] influenza virus with [place] other respiratory Repository manifestations / J10.1(ICD-10) 07/04/2017 Active Other skilled 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 () [facility] therapy / [place] Z79.899(ICD-10) Repository 07/04/2017 Active [facility], () [facility] unspecified site / [place] A49.1(ICD-10) Repository 07/04/2017 Active Unspecified [facility] streptococcus as the () Clinic Main cause of diseases [place] classified elsewhere Repository / B95.5(ICD-10) 07/04/2017 Active Encounter for BRANDONSHANEL [facility] aftercare following () Clinic Main kidney transplant / [place] Z48.22(ICD-10) Repository 06/23/2017 Active Unknown / DUY DUMAS [facility] UNK(Unknown) (BIODIESEL ENGINEERING MANAGER) Clinic Main [place] Repository PROCEDURES PROCEDURES No Procedure Records FoundRESULTS RESULTS PROGRESS Observed: 06/04/2018 Status: COMPLETED Source: [place] 4:56 PM [facility] REPOSITORY HNO ID: [id number] Author: Cornell (Dick) DICK Clarke Service: (none) Author Type: Registered Nurse Type: Progress Notes Filed: 06/04/2018 5:07 PM Note Text: New Referral Referring Physician Dr. [place] Mcdaniel Organ Type kidney ESRD Yes. 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 Yes Name of Dialysis Facility: [facility] [address] [place] [address] Diabetes No. Current BMI 15.1 Previous Transplant Yes Date of Last Transplant 02/21/2010 [facility] @ [facility] Currently Listed? No. Facility: N/A Willing to accept blood transfusion? Yes Potential Living Donor? No Full transplant evaluation? Yes Nephrology Screen Required? No If yes to nephrology screen, reason: N/A IRAIS Rendon RN Pre-Kidney AND Pancreas Vapor Co[employer] [facility] SURGERY VISIT REPORT Observed: 05/27/2018 Status: F Source: [place] 4:14 PM [facility] REPOSITORY [facility] [address] [place] [address] OFFICE VISIT Date of Service: 05/25/18 MR#: [id number] Acct: [id number] Name: VAL VALVERDE Rep #: [id number] : 1970 Provider: Asia Davis PA-C Age/Sex: 47/F Location: [facility] Status: Signed Intake Vital Signs05/25/18 Body Mass Index (BMI) 15.7 05/25/18 Height 4 ft 11 in 05/25/18 Weight: 75 lb Intake Visit Reasons: 2 wk FU Fistula Allergies Sulfa (Sulfonamide Antibiotics) Allergy (Verified 05/25/18 13:46) Hives NSAIDS (Non-Steroidal Anti-Inflamma Adverse Reaction (Verified 05/25/18 13:46) Other Medications Calcium Citrate/Vitamin D3 [Calcium Citrate - Vit D Caplet] 1 ea PO BID 07/03/17 [History Confirmed 05/25/18] Cholecalciferol (Vitamin D3) [Vitamin D3] 50,000 unit PO UD 07/03/17 [History Confirmed 05/25/18] Cyanocobalamin [Vitamin B12] 1,000 mcg IM Q30D 07/03/17 [History Confirmed 05/25/18] Dronabinol [Marinol] 2.5 mg PO 4X/DAY 07/03/17 [History Confirmed 05/25/18] Esomeprazole Mag Trihydrate [Nexium] 40 mg PO DAILY 07/03/17 [History Confirmed 05/25/18] Gabapentin [Neurontin] 300 mg PO BIDCM 07/03/17 [History Confirmed 05/25/18] Levonorgestrel [Mirena] 1 ea VAGINAL UD 07/03/17 [History Confirmed 05/25/18] Lipase/Protease/Amylase [Creon Dr 12,000 Units Capsule] 1 ea PO TID 07/03/17 [History Confirmed 05/25/18] Oxycodone [Oxyir] 5 mg PO Q8H PRN 07/03/17 [History Confirmed 05/25/18] Prednisone 5 mg PO DAILY 07/03/17 [History Confirmed 05/25/18] Vits [Prenatabs FA ] 1 tab PO DAILY 07/03/17 [History Confirmed 05/25/18] Sodium Bicarbonate 650 mg PO TID 07/03/17 [History Confirmed 05/25/18] Tacrolimus [Astagraf Xl] 1 mg PO BREAKFAST 07/03/17 [History Confirmed 05/25/18] Tacrolimus [Envarsus Xr] 1 mg PO DINNER 07/03/17 [History Confirmed 05/25/18] Tizanidine HCl [Zanaflex] 4 mg PO Q6H 04/27/18 [History Confirmed 05/25/18] amlodipine 2.5 mg tablet 10 mg PO DAILY tab 04/27/18 [History Confirmed 05/25/18] Biotin 10,000 mcg PO DAILY 05/05/18 [History Confirmed 05/25/18] Iron Polysaccharide Complex [Ferrex 150] 150 mg PO DAILYCM 05/05/18 [History Confirmed 05/25/18] PFSH Medical History Renal transplant rejection (Acute) [...] Surgical History History of renal transplant (Chronic) s/p left arteriovenous fistula creation (Acute 05/06/18) Social History Smoking Status: Former smoker second hand exposure: No alcohol intake: never substance use type: does not use caffeine: No frequency: does not exercise HPI HPI HPI: VAL VALVERDE, is a 47 F who presents to the office today for follow-up of her LUE brachial-basilic av fistula. She is currently on dialysis via chest catheters T,TH,SAT. Patient denies recent hospitalizations or illnesses. She is not currently on blood thinners. She denies previous complications with anesthesia. ROS General General: Yes fatigue; no weight [...] bleeding, No blood clots Neuro Neurologic: No weakness Exam Const General: cooperative, healthy appearing, comfortable, no acute distress Nutritional Appearance: cachectic [facility] Head: normal to inspection Eyes General: appearance normal, both eyes and all related structures Neck Neck: normal visual inspection Neck mass: No Resp Effort AND Inspection: normal respiratory effort Auscultation: clear to auscultation bilaterally Cardio Rate: regular rate Rhythm: regular rhythm Heart Sounds: no murmurs GI Inspection: normal to inspection Palpation: soft Auscultation: normal bowel sounds Skin General: no rashes or lesions noted Neuro General: no focal motor deficits, CN's II-XI intact bilaterally Extrem Other: Left upper extremity- good pulse. Diminished/soft bruit and thrill. Ultrasound exam shows wide open fistula Psych Appearance: grossly normal Assessment AND Plan Problems 1. Chronic renal failure, stage [address] Jenkins will plan to preform a stage II transposition left upper extremity brachial to basilic AV fistula creation. Procedure details, risks and benefits have been explained to the patient. Patient and her have had the opportunity to ask and have questions answered. Patient verbally understands and agrees with the plan. We will plan to start the patient on a daily 81 mg aspirin every other day after the procedure. Coding Level of Care Code Global Post Op Diagnoses Chronic renal failure, stage 5 N18.5 05/27/18 1614 <Electronically signed by Asia Davis PA-C> Date Asia Davis PA-C Cosigner Signature: Date (if applicable) CC: SURGERY VISIT REPORT Observed: 05/13/2018 Status: F Source: [place] 1:49 PM [facility] REPOSITORY [facility] [address] [place] [address]. [address] [place] [address] OFFICE VISIT Date of Service: 05/13/18 MR#: [id number] Acct: [id number] Name: VAL VALVERDE Rep #: [id number] : 1970 Provider: Asia Davis PA-C Age/Sex: 47/F Location: [facility] Status: Signed Intake Intake Visit Reasons: Fistula Placment 05/06 Marketing Liaison Required: No Is patient in pain?: No Allergies Sulfa (Sulfonamide Antibiotics) Allergy (Verified 05/13/18 12:43) Hives NSAIDS (Non-Steroidal Anti-Inflamma Adverse Reaction (Verified 05/13/18 12:43) Other Medications Calcium Citrate/Vitamin D3 [Calcium Citrate - Vit D Caplet] 1 ea PO BID 07/03/17 [History Confirmed 05/13/18] Cholecalciferol (Vitamin D3) [Vitamin D3] 50,000 unit PO UD 07/03/17 [History Confirmed 05/13/18] Cyanocobalamin [Vitamin B12] 1,000 mcg IM Q30D 07/03/17 [History Confirmed 05/13/18] Dronabinol [Marinol] 2.5 mg PO 4X/DAY 07/03/17 [History Confirmed 05/13/18] Esomeprazole Mag Trihydrate [Nexium] 40 mg PO DAILY 07/03/17 [History Confirmed 05/13/18] Gabapentin [Neurontin] 300 mg PO BIDCM 07/03/17 [History Confirmed 05/13/18] Levonorgestrel [Mirena] 1 ea VAGINAL UD 07/03/17 [History Confirmed 05/13/18] Lipase/Protease/Amylase [Karina Dallas 12,000 Units Capsule] 1 ea PO TID 07/03/17 [History Confirmed 05/13/18] Oxycodone [Oxyir] 5 mg PO Q8H PRN 07/03/17 [History Confirmed 05/13/18] Prednisone 5 mg PO DAILY 07/03/17 [History Confirmed 05/13/18] Vits [Prenatabs FA ] 1 tab PO DAILY 07/03/17 [History Confirmed 05/13/18] Sodium Bicarbonate 650 mg PO TID 07/03/17 [History Confirmed 05/13/18] Tacrolimus [Astagraf Xl] 1 mg PO BREAKFAST 07/03/17 [History Confirmed 05/13/18] Tacrolimus [Envarsus Xr] 1 mg PO DINNER 07/03/17 [History Confirmed 05/13/18] Tizanidine HCl [Zanaflex] 4 mg PO Q6H 04/27/18 [History Confirmed 05/13/18] amlodipine 2.5 mg tablet 10 mg PO DAILY tab 04/27/18 [History Confirmed 05/13/18] Biotin 10,000 mcg PO DAILY 05/05/18 [History Confirmed 05/13/18] Iron Polysaccharide Complex [Ferrex 150] 150 mg PO DAILYCM 05/05/18 [History Confirmed 05/13/18] Subjective Details: Patient is a 47 y/o female I am following for chronic renal failure. Dr. Jenkins performed a stage I left upper extremity stage I brachial basilic arteriovenous fistula creation on 05/06/18. Patient tolerated the procedure well. Patient notes very little to no discomfort. She is currently on dialysis T, TH, and SAT at [facility]. Patient currently has tunneled dialysis catheters. Objective Details: Left upper extremity- moderate amount of ecchymosis. Incision c/d/i. No erythema or infection noted. Diminished pulse, bruit and thrill. Assessment AND Plan Problems 1. Chronic renal failure, stage 5 N18.5 Plan - Continue hand exercises - Follow-up in 2 week - Schedule stage II transposition at that time Coding Level of Care Code Global Post Op Diagnoses Chronic renal failure, stage 5 N18.5 05/13/18 0258 <Electronically signed by Asia Davis PA-C> Date Asia Davis PA-C Cosigner Signature: Date (if applicable) CC: DISCHARGE INSTRUCTION Observed: 05/07/2018 Status: F Source: [place] 2:44 PM [facility] REPOSITORY [facility] Medical Records Department [address] [place] [address] Instructions for Home/Discharge Instructions 05/06/18 1435 MR#: [id number] Acct: [id number] Name: VAL VALVERDE Rep #: [id number] : 1970 47 From: Martinez Jenkins MD PCP: Wil To MD Status: [place]P [facility] Discharge Diet: Renal Diet Discharge Activity: May Not Drive - for 2-3 days or while taking narcotic pain medications., May Not Shower Lifting Restrictions: 5 pounds Keep extremity elevated above heart level: - - Keep arm elevated above the heart level for 3 days. Additional Activity Instructions:: Please leave your left forearm dressing in place for 2-3 days. You may then remove the dressing and leave the Steri- Strips on for an additional 1 week. Exercise her left hand with a stress ball daily. Call your doctor if your incision/area has: Continuous Slow Oozing, Sudden Increased Bleeding - apply pressure and call your doctor., Increased Pain/ Swelling, Increased Redness, Foul Smelling Discharge Call your doctor if you observe: Fever of 101 or Higher Allergies/Adverse Reactions: Allergies Sulfa (Sulfonamide Antibiotics) Allergy (Verified 05/05/18 08:45) Hives NSAIDS (Non-Steroidal Anti-Inflamma Adverse Reaction (Verified 05/05/18 08:45) Other Medications to take at Discharge Calcium Citrate/Vitamin D3 [Calcium Citrate - Vit D Caplet] 1 ea PO BID 07/03/17 Cholecalciferol (Vitamin D3) [Vitamin D3] 50,000 unit PO UD 07/03/17 Cyanocobalamin [Vitamin B12] 1,000 mcg IM Q30D 07/03/17 Dronabinol [Marinol] 2.5 mg PO 4X/DAY 07/03/17 Esomeprazole Mag Trihydrate [Nexium] 40 mg PO DAILY 07/03/17 Gabapentin [Neurontin] 300 mg PO BIDCM 07/03/17 Levonorgestrel [Mirena] 1 each VAGINAL UD 07/03/17 Lipase/Protease/Amylase [Creon Dr 12,000 Units Capsule] 1 ea PO TID 07/03/17 Oxycodone [Oxyir] 5 mg PO Q8H PRN 07/03/17 Prednisone 5 mg PO DAILY 07/03/17 Vits [Prenatabs FA ] 1 tab PO DAILY 07/03/17 Sodium Bicarbonate 650 mg PO TID 07/03/17 Tacrolimus [Astagraf Xl] 1 mg PO BREAKFAST 07/03/17 Tacrolimus [Envarsus Xr] 1 mg PO DINNER 07/03/17 Tizanidine HCl [Zanaflex] 4 mg PO Q6H 04/27/18 amlodipine 2.5 mg tablet 10 mg PO DAILY tab 04/27/18 Biotin 10,000 mcg PO DAILY 05/05/18 Iron Polysaccharide Complex [Ferrex 150] 150 mg PO DAILYCM 05/05/18 Primary Care Physician: Wil To MD [Primary Care Provider] - Test Results: Test results from this visit will be discussed in further detail at your follow-up appointment, if applicable. Please Follow Up With: Martinez Jenkins MD - [phone] When: Call to make an appointment for suture removal and follow up in 1 week. 05/07/18 0822 <Electronically signed by Martinez Jenkins MD> Date Martinez Jenkins MD CC: Wil To MD OPERATIVE REPORT Observed: 05/06/2018 Status: F Source: [place] 2:35 PM [facility] REPOSITORY [facility] Medical Records Department [address] [place] [address] Operative Report 05/06/18 1432 MR#: [id number] Acct: [id number] Name: VAL VALVERDE Rep #: [id number] : 1970 47 From: Martinez Jenkins MD PCP: Wil To MD Status: REG SDC Y Location: [place] [address] Problem List (1) Renal transplant rejection Status: Acute Report of Operation Date of Procedure: 05/06/18 Pre-Operative Diagnosis: Renal transplant rejection, stage V renal failure Post-Operative Diagnosis: Same Surgery/Procedure Performed:: Left upper extremity stage I brachial basilic arteriovenous fistula creation Description of Surgical Findings:: Timeout and informed consent was obtained. 47-year-old female was taken the operative placement table underwent monitored anesthesia care. The left extremity was sterilely prepped and draped. Ultrasound was used to map out the course of the basilic vein and the brachial artery. 1% lidocaine mixed 50-50 with 0.5% Marcaine was used as a local anesthetic. A total of 7 cc was used. An oblique incision made in the left antecubital space sharp and blunt dissection was used to dissect free the basilic vein. This was borderline. Sharp and blunt dissection was used to identify the brachial artery. The patient received 4000 units of heparin intravenously. The basilic vein was ligated distally with a Hemoclip it was then spatulated. Peripheral vascular clamps were placed on the brachial artery and a 11 blade was used to make an arteriotomy which was extended with Carrillo scissors. A end-to-side vein to artery anastomosis was created with running 7-0 Prolene. Prior to completion there was good antegrade retrograde flow. There appeared to be good flow within the vein with a palpable pulse and thrill. Hemostasis was intact. The patient received 20-minute grams of protamine. The wound was closed with a deep suture of interrupted 3-0 Vicryl and then a running septic or 4 Monocryl. Steri-Strips Telfa tape dressings applied. Sponge and instrument and needle counts were reported to the surgeon to be correct. Blood loss was minimal. Hand was viable at the completion no apparent complication she was taken to the recovery area in satisfactory condition. Specimens none. Drains none. Blood loss minimal Martinez Jenkins M.D., F.A.C.S. Type of Anesthesia:: Local MAC Anesthesiologist: Aaron Breen 05/06/18 1435 <Electronically signed by Martinez Jenkins MD> Date Martinez Jenkins MD CC: Wil oT MD; Martinez Jenkins MD Signed ,URINE Collected: 05/06/2018 Status: F Source: [place] 11:10 AM [facility] REPOSITORY TYPE CODE TESTS RESULT OUT OF REFERENCE UNITS RANGE LAB L400.8000 Negative Normal HCGUQUAL Negative Result Comment: Very dilute urine specimens, as indicated by a low specific gravity, may not contain guest experience representative levels of hCG. If is still suspected, a first morning urine specimen should be collected 48 hours later and tested. Performed By: #### L400.7600 #### [facility] [address] [facility] [place], [address] DISCHARGE INSTRUCTION Observed: 04/29/2018 Status: F Source: [place] 9:00 AM [facility] REPOSITORY [facility] Medical Records Department [address] [place] [address] Instructions for Home/Discharge Instructions 04/28/18 0947 MR#: [id number] Acct: [id number] Name: VAL VALVERDE Rep #: [id number] : 1970 47 From: Martinez Jenkins MD PCP: Wil To MD Status: DEP [facility] Discharge Activity: May Not Shower Lifting Restrictions: [...] Follow Up With: Martinez Jenkins MD - [phone] When: Further office follow-up will be scheduled after your fistula 04/29/18 0900 <Electronically signed by Martinez Jenkins MD> Date Martinez Jenkins MD CC: Wil To MD OPERATIVE REPORT Observed: 04/29/2018 Status: F Source: [place] 9:00 AM [facility] Medical Records Department [address] [place] [address] Operative Report 04/28/18 1035 MR#: [id number] Acct: [id number] Name: VAL VALVERDE Rep #: [id number] : 1970 47 From: Martinez Jenkins MD PCP: Wil To MD Status: DEP [facility] Y Location: [facility] Problem List (1) Renal transplant rejection Status: [...] LINE PLACEMENT Observed: 04/28/2018 Status: F Source: [place] 9:53 AM [facility] REPOS[facility] Imaging Services [address] [place] [address] CXR for Line Placement MR#: [id number] Acct: [id number] Name: VAL VALVERDE Rep #: [id number] : 1970 F 47 From: Vikas Haney MD PCP: Wil To MD Status: REG [facility] Study: CXR for Line Placement Date of Exam: 04/28/18 Exam# [id number] Ordering Dr: Martinez Jenkins MD STUDY: X-RAY [...] Vikas Haney MD at 11:03 EST Tel [phone], Service support , CC: Wil To MD; Martinez Jenkins MD Process Control Specialist: Signed ,URINE Collected: 04/28/2018 Status: F Source: [place] 8:10 AM [facility] REPOSITORY Order Comment: Reason for Laboratory Test PRE-OP TYPE CODE TESTS RESULT OUT OF REFERENCE UNITS RANGE LAB L400.8000 Negative Normal HCGUQUAL Negative Result Comment: Very dilute urine specimens, as indicated by a low specific gravity, may not contain guest experience representative levels of hCG. If is still suspected, a first morning urine specimen should be collected 48 hours later and tested. Performed By: #### L400.7600 #### [facility] [address] [place], [address] SURGERY VISIT REPORT Observed: 04/27/2018 Status: F Source: [place] 4:28 PM [facility] REPOSITORY [facility] [address] [place] [address] OFFICE VISIT Date of Service: 04/27/18 MR#: [id number] Acct: [id number] Name: VAL VALVERDE Rep #: [id number] : 1970 Provider: Martinez Jenkins MD Age/Sex: 47/F Location: [facility] Status: Signed Intake Vital Signs04/27/18 Height 4 ft 11.5 in 04/27/18 Weight: 77 lb Intake Visit Reasons: Fistula Placement/Tunnel Cath, Vein Mapg [facility] tbd Marketing Liaison Required: No Is patient in pain?: No [...] [Mirena] 1 ea IY 07/03/17 [History] Lipase/Protease/Amylase [Creon Dr 12,000 Units Capsule] 1 [...] fistula. On April 21, 2018 at the [facility] she had bilateral upper extremity vein [...] Comprehensive,moderate Diagnoses Renal transplant rejection T86.11 04/27/18 7978 <Electronically signed by Martinez Jenkins MD> Date Martinez Jenkins MD Cosigner Signature: Date (if applicable) CC: Wil To MD; Marietta Mcdaniel DO VENOUS DUPLEX UPPER Observed: 04/21/2018 Status: F Source: [place] EXTREMITY 12:52 PM [facility] REPOS[facility]ORY [facility] [address] [place] [address] Saphenous Vein Mapping, Bilat 04/21/18 0830 MR#: [id number] Acct: [id number] Name: VAL VALVERDE Rep #: [id number] : 1970 47 From: Martinez Jenkins MD Attending Dr: Marietta Mcdaniel DO Status: REG CLI Ordering Dr: Marietta Mcdaniel DO Date: 04/21/18 Location: [facility] Sex: F A Admitted: Reason For Study: [...] Dictated: 04/21/18 0830 Date Transcribed: 04/21/18 1251 Process Control Specialist: Signed PTHIN Collected: 04/15/2018 Status: F Source: [place] 11:27 AM [facility] REPOSITORY TYPE CODE TESTS RESULT OUT OF RANGE REFERENCE UNITS LAB L509.1000 18.4-80.1 pg/mL High PTHIN 299.6 Performed By: #### L509.1000 #### [facility] [address] [place], [address] HEPATITIS B SURFACE Collected: 04/15/2018 Status: F Source: [place] 11:27 AM [facility] REPOSITORY TYPE CODE TESTS RESULT OUT OF RANGE REFERENCE UNITS LAB L3100.0400 Negative Normal HB Negative SURF AG Result Comment: Performed at: - [facility] [address] [id number] Outside Property Agent: Simón Bowers PhD, Phone: [phone] Performed By: #### L3100.0390, L3100.0528 #### [facility] (refer to report for specific site) refer to report for address and phone number HEP B SURFACE Collected: 04/15/2018 Status: F Source: [place] ANTIBODIES 11:27 AM [facility] REPOSITORY TYPE CODE TESTS RESULT OUT OF [...] [place] HEMOGLOBIN Collected: 04/13/2018 Status: F Source: [place] 12:07 PM [facility] REPOSITORY TYPE CODE TESTS RESULT OUT OF REFERENCE UNITS RANGE LAB WHGB 11.5-15.5 g/dL Low [place] Hemoglobin 9.4 Result Comment: Test performed at: [facility], [address] [place] [address]., [place] [address]. [place] HEMATOCRIT Collected: 04/13/2018 Status: F Source: [place] 12:07 PM [facility] REPOSITORY TYPE CODE TESTS RESULT OUT OF REFERENCE UNITS RANGE LAB WHCT 36.0-46.0 % Low [place] Hematocrit 28.9 Result Comment: Test performed at: [address] [place] [address]. PROGRESS Observed: 04/06/2018 Status: COMPLETED Source: [place] 4:40 PM [facility] REPOSITORY HNO ID: [id number] Author: Delvis Hameed Service: (none) Author Type: [...] does not have proteinuria. Neg DSA in 2015 No overt signs of uremia She has [...] MD This note was partially generated using [employer] voice recognition system, and there may be some incorrect words, spellings, and punctuation that were not noted in checking the note before saving. I spent >45 minutes in this visit, with more than 60% of the time devoted to patient counseling. Scribe Attestation: By signing my name below, IDarin, attest that this documentation has been prepared under the direction and in the presence of Delvis Hameed MD. Electronically Signed:chau House, April 06, 2018 4:40 PM Provider Attestation: I, Delvis Hameed MD, personally performed the services described in this documentation. All medical record entries made by the scribe were at my direction and in my presence. I have reviewed the chart and discharge instructions (if applicable) and agree that the record reflects my personal performance and is accurate and complete. Dr. Delvis Hameed April 06, 2018 4:40 PM CNOV Observed: 04/06/2018 Status: COMPLETED Source: [place] 4:00 PM [facility] REPOSITORY Office Visit (NEPHMN) VAL VALVERDE ([id number]) 1970 F TRN Date Time Provider Department [...] does not have proteinuria. 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 - ICD 10 = Z94.0 kidney transplant 02/21/2010Disp: 270 capsuleRfl: 3 Prescriptions as of 04/06/2018 Sig: TACROLIMUS 1 MG CAPSULE Take 1 capsule by mouth twice* WKMWDN-YGRQCBST-FPYOCSU 12,00* Take 1 capsule by mouth three* [...] ulcer disease with hemorrhage [K27.4] INVALID FOR*12/30/2016 Rkred-xk-apttkhi kidney injury (HCC) [N17.9, N1*INVALID FOR*12/30/2016 More... [...] METABOLIC PANEL Collected: 04/06/2018 Status: F Source: [place] 11:56 AM [facility] REPOS[facility] TYPE [...] / FK506 Collected: 04/06/2018 Status: F Source: [place] 11:56 AM [facility] REPOSITORY TYPE CODE TESTS RESULT OUT [...] Test performed by chemiluminescent immunoassay using [employer] Hand. Performed By: #### FK506 #### [facility] [address] [place] [address] PROGRESS Observed: 04/01/2018 Status: COMPLETED Source: [place] 5:21 PM [facility] REPOSITORY HNO ID: [id number] Author: Wil To Service: (none) Author Type: [...] (VITAMIN D3) 50,000 unit cap capsule - aifets-vkwzqksk-yslazij (CREON 12) 12,000-38,000 -60,000 unit cpDR - [...] (HCC) - ICD9: 262, ICD10: E43 - IWBBXE-CUYLZCWA-PJGLIUS 12,000-38,000-60,000 UNIT CAPSULE,DELAYED REL - DRONABINOL 2.5 [...] MD CNOV Observed: 04/01/2018 Status: COMPLETED Source: [place] 4:40 PM [facility] REPOSITORY Office Visit (INTMWS) VAL VALVERDE ([id number]) 1970 F TRN Date Time Provider Department [...] (VITAMIN D3) 50,000 unit cap capsule - njtxcg-tjlprznr-xtdepot (CREON 12) 12,000-38,000 -60,000 unit cpDR - [...] (HCC) - ICD9: 262, ICD10: E43 - MLLADW-HZXQODKG-DTBTOOK 12,000-38,000-60,000 UNIT CAPSULE,DELAYED REL - DRONABINOL 2.5 [...] neoplasm of stomach, unspecified location (HCC) [C16.9] Order(s):usnosy-vtmxzwnp-xbnpdpe (CREON 12) 12,000-38,000 -60,000 unit cpDRTake 1 capsule by mouth three times daily.Disp: 90 capsuleRfl: 5 dronabinol (MARINOL) 2.5 mg capsuleTake 1 capsule by mouth four times daily for 30 days.Disp: 120 capsuleRfl: 0 amLODIPine (NORVASC) 10 mg tabletTake 1 tablet by mouth once daily.Disp: Rfl: Prescriptions as of 04/01/2018 Sig: QAZMLT-ZITMMFBE-BBGRBNZ 12,00* Take 1 capsule by mouth three* [...] ulcer disease with hemorrhage [K27.4] INVALID FOR*12/30/2016 Yhytw-km-ksmmiij kidney injury (HCC) [N17.9, N1*INVALID FOR*12/30/2016 More... [...] ordered this encounter Disp Refills Start End RIBHKZ-LRMHVSSV-UOYXCRE 12,000-38,00* 90 c* 5 04/01/2018 Route: ORAL [...] once daily. Medications Discontinued During This Encounter vxuwka-kjjjtxvh-ldomfig (CREON 12) 1* 90 c* 3 06/10/2016 04/01/2018 Route: ORAL Sig: Take 1 capsule by mouth three times daily with meals for 30 days. Disc: Reason for discontinue is not on file. lfyyza-omptbvzx-ukxaklc (CREON 12) 1* 07/03/2017 04/01/2018 Class: Historical [...] METABOLIC PANL Collected: 03/20/2018 Status: F Source: [place] 3:14 PM [facility] REPOSITORY TYPE CODE TESTS RESULT OUT OF REFERENCE UNITS RANGE LAB GLU 74-99 mg/dL Glucose Incorrect test ordered. Correct order placed. Results to follow. Result Comment: REORDERED ON [place] [address] Account Credited LAB BUN 7-21 mg/dL Incorrect BUN test ordered. Correct order placed. Results to follow. Result Comment: REORDERED ON [place] [address] Account Credited LAB CRET 0.58-0.96 mg/dL Creatinine Incorrect test ordered. Correct order placed. Results to follow. Result Comment: REORDERED ON [place] [address] Account Credited LAB NA 136-144 mmol/L Sodium Incorrect test ordered. Correct order placed. Results to follow. Result Comment: REORDERED ON [place] [address] Account Credited LAB K 3.7-5.1 mmol/L Potassium Incorrect test ordered. Correct order placed. Results to follow. Result Comment: REORDERED ON [place] [address] Account Credited LAB CL 97-105 mmol/L Chloride Incorrect test ordered. Correct order placed. Results to follow. Result Comment: REORDERED ON [place] [address] Account Credited LAB CO2 22-30 mmol/L Incorrect CO2 test ordered. Correct order placed. Results to follow. Result Comment: REORDERED ON [place] [address] Account Credited LAB AGAP 9-18 mmol/L Incorrect Anion Gap test ordered. Correct order placed. Results to follow. Result Comment: REORDERED ON [place] [address] Account Credited LAB CA 8.5-10.2 mg/dL Calcium, Total Incorrect test ordered. Correct order placed. Results to follow. Result Comment: REORDERED ON [place] [address] Account Credited LAB GFRAA eGFR- Amer. Incorrect test ordered. Correct order placed. Results to follow. Result Comment: REORDERED ON [place] [address] Account Credited LAB GFRNAA . eGFR-All Incorrect Other Races test ordered. Correct order placed. Results to follow. Result Comment: REORDERED ON [id number] Account Credited LAB GFRPED eGFR-Ped. Incorrect Factor test ordered. Correct order placed. Results to follow. Result Comment: REORDERED ON [id number]. [id number] Account Credited Performed By: #### BMP #### [facility] [address] [place], [place] [address] BASIC METABOLIC PANL Collected: 03/20/2018 Status: F Source: [place] 3:14 PM [facility] REPOSITORY TYPE CODE TESTS RESULT OUT OF REFERENCE UNITS RANGE LAB GLU 74-99 mg/dL High Glucose 109 Result Comment: The [place] Diabetes Association (ADA) provides guidance for cutoff [...] Standards of Medical Care in Diabetes 2016, [place] [employer]. Diabetes Care. 2016.39(Suppl 1). LAB [...] actual GFR. Performed By: #### BMP #### [facility] [address] [place], [place] [address] BASIC METABOLIC PANL Collected: 03/20/2018 Status: F Source: [place] 3:11 PM [facility] REPOSITORY TYPE CODE TESTS RESULT OUT OF REFERENCE UNITS RANGE LAB GLU 74-99 mg/dL Requisitioning Glucose entry error Result Comment: Account Credited ORDERED WITH WRONG PROCESSING LOCATION. HAD TO REORDER WITH [facility] SO THAT TEST COULD BE RAN. [id number] LAB BUN 7-21 mg/dL Requisitioning entry BUN error Result Comment: Account Credited ORDERED WITH WRONG PROCESSING LOCATION. HAD TO REORDER WITH [facility] SO THAT TEST COULD BE RAN. [id number] 5959 LAB CRET 0.58-0.96 mg/dL Requisitioning entry Creatinine error Result Comment: Account Credited ORDERED WITH WRONG PROCESSING LOCATION. HAD TO REORDER WITH [facility] SO THAT TEST COULD BE RAN. [id number] 2994 LAB NA 136-144 mmol/L Requisitioning entry Sodium error Result Comment: Account Credited ORDERED WITH WRONG PROCESSING LOCATION. HAD TO REORDER WITH [facility] SO THAT TEST COULD BE RAN. [id number] 2954 LAB K 3.7-5.1 mmol/L Requisitioning entry Potassium error Result Comment: Account Credited ORDERED WITH WRONG PROCESSING LOCATION. HAD TO REORDER WITH [facility] SO THAT TEST COULD BE RAN. [id number] 3639 LAB CL 97-105 mmol/L Requisitioning entry Chloride error Result Comment: Account Credited ORDERED WITH WRONG PROCESSING LOCATION. HAD TO REORDER WITH [facility] SO THAT TEST COULD BE RAN. [id number] 6406 LAB CO2 22-30 mmol/L Requisitioning entry error CO2 Result Comment: Account Credited ORDERED WITH WRONG PROCESSING LOCATION. HAD TO REORDER WITH [facility] SO THAT TEST COULD BE RAN. [id number] 3945 LAB AGAP 9-18 mmol/L Requisitioning entry Anion Gap error Result Comment: Account Credited ORDERED WITH WRONG PROCESSING LOCATION. HAD TO REORDER WITH [facility] SO THAT TEST COULD BE RAN. [id number] 9219 LAB CA 8.5-10.2 mg/dL Requisitioning entry Calcium, Total error Result Comment: Account Credited ORDERED WITH WRONG PROCESSING LOCATION. HAD TO REORDER WITH [facility] SO THAT TEST COULD BE RAN. [id number] 0756 LAB GFRAA eGFR- Requisitioning entry Amer. error Result Comment: Account Credited ORDERED WITH WRONG PROCESSING LOCATION. HAD TO REORDER WITH [facility] SO THAT TEST COULD BE RAN. [id number] 3095 LAB GFRNAA . eGFR-All Requisitioning entry Other Races error Result Comment: Account Credited ORDERED WITH WRONG PROCESSING LOCATION. HAD TO REORDER WITH [facility] SO THAT TEST COULD BE RAN. [id number] 0628 LAB GFRPED eGFR-Ped. Requisitioning entry Factor error Result Comment: Account Credited ORDERED WITH WRONG PROCESSING LOCATION. HAD TO REORDER WITH [facility] SO THAT TEST COULD BE RAN. [id number] 9353 Performed By: #### BMP #### [place] [address] [place], [place] [address] OT FUNCTIONAL CAPACITY Observed: 03/18/2018 Status: F Source: [facility] 9:11 AM [facility] REPOSITORY [facility] [place] [address] Fax REHABILITATION SERVICES INITIAL EVALUATION MR#: [id number] Acct: [id number] Name: VAL VALVERDE Rep #: [id number] : 1970 47 From: Bryan Terry OTR/L, CHT Referring DrVineet: RUDY Dumas Status: REG RCR Insurance: [facility] Eval Date: SELF PAY INSURANCE HP OT [...] Pt state she was last employed at [employer]. pt states she worked there for about 23 years. 2016 was her last day. 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 pt states she did a lot of [...] Strength: pt demo 4/5 functional strength- Right Animal Technician Strength Average: 51.66 Right Animal Technician Strength Percentile: 9% Left Animal Technician Strength Average: 56.00 Left Animal Technician Strength Percentile: 16# Right Lateral Pinch Average: [...] good ability. <Electronically signed by Bryan LEAVITT/KIMBERLY Graham> 03/18/18 0911 CC: RUDY Dumas; Wil To MD RENEE Signed For Medicare only, by signing this I certify the plan of care. Physicians Signature Date [place] HEMATOCRIT Collected: 03/16/2018 Status: F Source: [place] 2:13 PM [facility] REPOSITORY TYPE CODE TESTS RESULT OUT OF REFERENCE UNITS RANGE LAB WHCT 36.0-46.0 % Low [place] Hematocrit 30.6 Result Comment: Test performed at: [facility], [address] [place] [address] Rd[address] [place] [address]. [place] HEMOGLOBIN Collected: 03/16/2018 Status: F Source: [place] 2:13 PM [facility] REPOSITORY TYPE CODE TESTS RESULT OUT OF REFERENCE UNITS RANGE LAB WHGB 11.5-15.5 g/dL Low [place] Hemoglobin 9.8 Result Comment: Test performed at: [facility], [address] [place] [address] Rd[address] [place] [address]. PROGRESS Observed: 03/04/2018 Status: COMPLETED Source: [place] 4:43 PM [facility] REPOSITORY HNO ID: [id number] Author: Keri Adame Service: (none) Author Type: [...] APRN.CNP CNOV Observed: 03/04/2018 Status: COMPLETED Source: [place] 4:30 PM [facility] REPOSITORY Office Visit (WOOB) UNIQUEVAL NERI ([id number]) 1970 F TRN Date Time Provider Department 03/04/18 4:30 PM KERI ADAME (DAYANNA) WOOB During your visit today, we recorded the following information about you: Blood pressure Weight 122/80 35.8 kg Keri Adame APRN.CNP 03/04/2018 5:00 PM Signed Val Bright Abram presents today for IUD check. She had [...] GEL Follow-up as needed. Keri Adame APRN.CNP Referring Provider: SELF [200] Allergies As of Date: 03/04/2018 Noted Allergy Reaction SULFA (SULFONAMIDE ANTIBIOTICS) 04/07/2001 4 - Hives Comments: hives NSAIDS (NON-STEROIDAL ANTI-INFLAM*04/23/2016 5 - Intolerance Date Reviewed: 03/04/2018 Reviewed by: Keri Adame - Fully Assessed Reason for Visit: Follow [...] * Take 1 capsule by mouth every* HKWUEL-VHPNASLH-PVICFAI 12,00* Take by mouth three times raad* [...] ulcer disease with hemorrhage [K27.4] INVALID FOR*12/30/2016 Temvm-vv-dgwqofn kidney injury (HCC) [N17.9, N1*INVALID FOR*12/30/2016 More... [...] 03/04/18 PROGRESS Observed: 02/16/2018 Status: COMPLETED Source: [place] 1:05 PM [facility] REPOSITORY [facility] ID: [id number] Author: Alex Tian Service: (none) Author Type: Physician Type: Progress Notes Filed: 02/17/2018 7:07 AM Note Text: PATIENT NAME: Val Valverde. CLINIC NO: [id number]. ATTENDING PHYSICIAN: Alex Tian MD. DATE OF SERVICE: 02/16/2018 ?? DIAGNOSIS: Anemia of chronic disease secondary stage IV renal failure; status- post partial gastrectomy for stage IB gastric cancer AND History of renal transplant. ?? HPI: This is a 46-year-old woman from [facility] who was adopted into a family in the [facility] at 1-1/2 years of age. In 2000, [...] Latest Ref Rng AND Units 02/16/2018 Hemoglobin, [place] 11.5 - 15.5 g/dL 9.3 (L) Hematocrit, [...] worsening renal function. Alex Tian MD Cc: DAYANNA Damon BMP Collected: 02/16/2018 Status: F Source: [place] 10:50 AM [facility] REPOSITORY TYPE CODE TESTS RESULT [...] KESHA HEMATOCRIT Collected: 02/16/2018 Status: F Source: [place] 10:50 AM [facility] REPOSITORY TYPE CODE TESTS RESULT OUT OF REFERENCE UNITS RANGE LAB WHCT 36.0-46.0 % Low [place] Hematocrit 28.7 Result Comment: Test performed at: [address] [place] [address]. KESHA HEMOGLOBIN Collected: 02/16/2018 Status: F Source: [place] 10:50 AM [facility] REPOSITORY TYPE CODE TESTS RESULT OUT OF REFERENCE UNITS RANGE LAB WHGB 11.5-15.5 g/dL Low [place] Hemoglobin 9.3 Result Comment: Test performed at: [address] [place] [address]. CBC AND DIFFERENTIAL Collected: 02/16/2018 Status: F Source: [place] 10:50 [facility] REPOSITORY TYPE CODE TESTS RESULT OUT OF [...] k/uL Abs Lymph 1.46 LAB AMONO % [facility]% 12.6 LAB AAMONO <0.87 k/uL Abs [facility] High 1.18 LAB AEOS % Eosin% 1.6 LAB AAEOS <0.46 k/uL Abs Eosin 0.15 LAB ABASO % Baso% 0.3 LAB AABASO <0.11 k/uL Abs Baso 0.03 LAB AUNRBC 0 /100 WBC NRBCs 0.0 LAB ABNRBC <0.01 k/uL Absolute nRBC <0.01 LAB DTYP DTYPE Auto Diff Performed By: #### CBCDIF, CMP, MG1, PREALB #### [facility] [address] [place], [place] [address] COMP METABOLIC PANEL Collected: 02/16/2018 Status: F Source: [place] 10:50 AM [facility] REPOSITORY TYPE CODE TESTS RESULT OUT OF REFERENCE UNITS RANGE LAB TP 6.3-8.0 g/dL Low Protein, Total 6.0 LAB ALB 3.9-4.9 g/dL Low Albumin 3.5 LAB CA 8.5-10.2 mg/dL Calcium, Total 8.5 LAB TBIL 0.2-1.3 mg/dL Bilirubin, Total 0.2 LAB ALKP 34-123 U/L Alkaline Phosphatase 80 LAB AST 13-35 U/L AST 22 LAB GLU 74-99 mg/dL Glucose 83 Result Comment: The [place] Diabetes Association (ADA) provides guidance for cutoff [...] Standards of Medical Care in Diabetes 2016, [place] Diabetes Association. Diabetes Care. 2016.39(Suppl 1). LAB [...] By: #### CBCDIF, CMP, MG1, PREALB #### [facility] [employer] [address] [place] [address] MAGNESIUM Collected: 02/16/2018 Status: F Source: [place] 10:50 AM [facility] REPOSITORY TYPE CODE TESTS RESULT OUT OF REFERENCE UNITS RANGE LAB MG 1.7-2.3 mg/dL Low Magnesium 1.5 Performed By: #### CBCDIF, CMP, MG1, PREALB #### [facility] [employer] [address] [place] [address] PREALBUMIN Collected: 02/16/2018 Status: F Source: [place] 10:50 AM [facility] REPOSITORY TYPE CODE TESTS RESULT OUT OF REFERENCE UNITS RANGE LAB PREALB 17-36 mg/dL Prealbumin 35 Performed By: #### CBCDIF, CMP, MG1, PREALB #### [facility] [employer] [address] [place] [address] IRON AND TIBC Collected: 02/16/2018 Status: F Source: [place] 10:50 AM [facility] REPOSITORY TYPE CODE TESTS RESULT OUT OF REFERENCE UNITS RANGE LAB IRN 41-186 ug/dL Iron 72 LAB TIBC 232-386 ug/dL Low TIBC 209 LAB SAT 15-57 % Transferrin Saturatn 34 Performed By: #### IRON, FERR #### [facility] [address] [place], [place] [id number] FERRITIN Collected: 02/16/2018 Status: F Source: [place] 10:50 AM [facility] REPOSITORY TYPE CODE TESTS RESULT OUT OF REFERENCE UNITS RANGE LAB FERR 14.7-205.1 ng/mL High Ferritin 1022.0 Performed By: #### IRON, FERR #### [facility] [address] [place], [place] [address] CNOVSP Observed: 02/16/2018 Status: COMPLETED Source: [place] 10:50 AM [facility] REPOSITORY Visit (SP) Office (HEMRADHA) VAL VALVERDE Deangelo ([id number]) 1970 F TRN Date Time Provider Department [...] 02/17/2018 7:07 AM Signed PATIENT NAME: Val Bright Abram. CLINIC NO: [id number]. ATTENDING PHYSICIAN: Alex Tian MD. DATE OF SERVICE: 02/16/2018 ?? DIAGNOSIS: Anemia of chronic disease secondary stage IV renal failure; status- post partial gastrectomy for stage IB gastric cancer AND History of renal transplant. ?? HPI: This is a 46-year-old woman from [facility] who was adopted into a family in the [facility] at 1-1/2 years of age. In 2000, [...] Latest Ref Rng AND Units 02/16/2018 Hemoglobin, [place] 11.5 - 15.5 g/dL 9.3 (L) Hematocrit, [place] 36.0 - 46.0 % 28.7 (L) Component [...] Bryan Koo CNP Referring Provider: ALEX TIAN [[id number]] Allergies As of Date: 02/16/2018 Noted Allergy [...] of Service: EST PATIENT VISIT LEVEL 3 [[id number]] Disposition: Return in about 6 months (around [...] * Take 1 capsule by mouth every* VJTNYH-NAATNXEF-NWTEWLO 12,00* Take by mouth three times raad* [...] ulcer disease with hemorrhage [K27.4] INVALID FOR*12/30/2016 Iqldh-cc-yqkofpe kidney injury (HCC) [N17.9, N1*INVALID FOR*12/30/2016 More... [...] intrinsic *INVALID FOR* Visit Notes: >> Alana Maryjo JOSEPH FriFeb 16, 2018 11:04 AM Status: Signed Est patient. Six month office visit. Discus recent labs. Alana Millan LPN >> Alana Millan LPN FriFeb 16, 2018 11:32 AM Status: Signed Aranesp injection administered RLQ, tolerated well, no immediate adverse reactions noted. Alana Millan LPN Encounter Status:Closed by ALEX TIAN MD on 02/17/18 TACROLIMUS / [id number] Collected: 02/16/2018 Status: F Source: [place] 10:50 AM [facility] REPOSITORY TYPE CODE TESTS RESULT OUT [...] Test performed by chemiluminescent immunoassay using [employer]. Performed By: #### FK506 #### [facility] [employer] [address] [id number] GC/CHLAMYDIA AMPLIF Collected: 02/04/2018 Status: F Source: [place] 5:06 PM [facility] REPOSITORY TYPE CODE TESTS RESULT OUT OF REFERENCE UNITS RANGE LAB GCCTSR GC/Chlam Amp Cervix Source LAB GCAMPL GC Negative Amplification for Neisseria gonorrhoeae by amplification. LAB CLAMPL Chlamydia Negative Amplif for Chlamydia trachomatis by amplification. Performed By: #### GCCT #### [facility] [employer] [address] [id number] PROGRESS Observed: 02/04/2018 Status: COMPLETED Source: [place] 2:35 PM [facility] REPOSITORY HNO ID: [id number] Author: Emir Fowler Service: (none) Author Type: [...] IUD source: office provided IUD lot #: [id number] Exp date: 06/2020 UNIVERSAL PROTOCOL / SAFETY [...] DO CNOV Observed: 02/04/2018 Status: COMPLETED Source: [place] 2:30 PM [facility] REPOSITORY Office Visit (WOOB) VAL VALVERDE ([id number]) 1970 F TRN Date Time Provider Department 02/04/18 2:30 PM EMIR FOWLER During your visit today, we recorded the following information about you: Blood pressure Weight 122/80 34.7 kg Emir Fowler MD 02/04/2018 3:20 PM Signed Val Bright Abram presents today for IUD removal and insertion [...] IUD source: office provided IUD lot #: [id number] Exp date: 06/2020 UNIVERSAL PROTOCOL / SAFETY [...] PM Modules accepted: Orders Referring Provider: KERI ADAEM ([facility]) [[id number]] Allergies As of Date: 02/04/2018 Noted Allergy [...] for IUD removal [Z30.432] Order(s):INSERT INTRAUTERINE DEVICE [[id number]] Order #: [id number] [] levonorgestrel 20 mcg/24 hr (5 years) 1 Each intrauterine device (MIRENA)Disp: Rfl: GC/CHLAMYDIA DNA DET [SQGCCAMP] Order #: [id number] Prescriptions as of 02/04/2018 Sig: OOZYAU-OSSPPGHN-JOBIAKH 12,00* Take by mouth three times raad* [...] ulcer disease with hemorrhage [K27.4] INVALID FOR*12/30/2016 Iibet-lv-rnbosbe kidney injury (HCC) [N17.9, N1*INVALID FOR*12/30/2016 More... [...] 02/04/18 CNOV Observed: 01/30/2018 Status: COMPLETED Source: [place] 3:40 PM [facility] REPOSITORY Office Visit (GASTA5) ABRAMVAL Deangelo ([id number]) 1970 F [facility] Date Time Provider Department 01/30/18 3:40 PM [...] Barajas for weight loss. Originally, she was from?[facility] and was adopted?by a family in the [...] give her diarrhea. She had also tried [place] [employer], but while she had it [...] reported that she had been away in [place] for 3 weeks and thought that she [...] is in the HPI. Current Outpatient Prescriptions: vyxgpe-qvledjuo-vslcztt (CREON 12) 12,000-38,000 -60,000 unit cpDR Take [...] REVIEWED DATA 11/07/2015 (Dr. Jacob Belcher / [facility]) EGD. Findings: ?The examined esophagus was normal. [...] HSV inclusions. 05/30/2016 (Dr. Andrey Barajas / [facility]) EGD. Findings: The esophagus was normal. LES [...] CMV-related enteritis. 08/01/2016 (Dr. Andrey Barajas / [facility]) EGD. Findings: Localized candidiasis was found in [...] Andrey Barajas AND Dr. Wilma Jones / [facility]) EGD. Findings: The examined esophagus was normal. [...] Helicobacter pylori. 11/01/2016 (Dr. Sahil Kurtz / [facility]) EGD. Findings: No gross lesions were noted [...] examined jejunal lumen appeared grossly normal. 11/17/2016 ([facility] / [facility]) Gastric remnant, Biopsies ? Acute and Chronic gastritis. Immunohistochemical stain for Helicobacter pylori is negative for organisms. Comment: There are no cytologic features of CMV infection identified. This was evaluated using a laboratory developed test. 12/20/2016 (Dr. Prabhu Dahl AND Dr. Delano Segovia / [facility]) EGD. Findings: The examined esophagus was normal. Evidence of a Layne-en-Y gastrojejunostomy was found. This was not traversed. The ditwm-op-xfosgql limb was characterized by ulceration with a [...] appeared intact. 12/21/2016 (Dr. Ruby Hernández / [facility]) EGD. Findings: The examined esophagus was normal. [...] lesion seen. 12/22/2016 (Dr. Jacob Cruz / [facility]) EGD. Findings: The examined esophagus was normal. [...] 39 cm. 12/25/2016 (Dr. Ruby Hernández / [facility]) EGD. Findings: The examined esophagus was normal. [...] stained sections. 02/19/2017 (Dr. Raman Almeida / [facility]) EGD. Findings: There is no endoscopic evidence [...] HPI: This is a 46-year-old woman from [facility] who was adopted into a family in the [place] at 1-1/2 years of age. In [...] 15.5 g/dL ? ? 9.8 (L) Hematocrit, [place] 36.0 - 46.0 % ? ? 31.0 [...] - 4.00 k/uL 0.58 (L) ? ? [place]% % 2.9 ? ? Abs [facility] <0.87 k/uL 0.40 ? ? Eosin% % [...] 1.20 mg/L 1.36 (H) ? ? Hemoglobin, [place] 11.5 - 15.5 g/dL ? ? 10.9 [...] 13 eGFR-All Other Races . 11 Hemoglobin, [place] 11.5 - 15.5 g/dL 10.6 (L) 8.8 (L) 9.9 (L) 10.2 (L) Hematocrit, [place] 36.0 - 46.0 % 32.9 (L) 27.9 (L) 31.1 (L) 32.0 (L) Box Annealer Specimen originated from [facility] . . . Assessment DISCUSSION: We [...] Osteopenia Vitamin B12 deficiency PLAN Patient has?a [employer] account. Labs as ordered - can get closer to home at a F lab - download to [employer] Trial of ORS - information and samples of Drip Drop Discussed vitamin B12 injections and that she has 3 mL vials for 1 mL/month and then 3 refills To alter diet - decrease Magalys dedrick and try to increase intake RTC about 8 weeks Letter to Drs. Barajas and Bri, PCP and DAYANNA Damon MD January 30, 2018 Referring Provider: AUSTEN PIERSON [[id number]] Allergies As of Date: 01/30/2018 Noted Allergy [...] [D51.0] Order(s):CBC + DIFF [SQCBCDIF] Order #: [id number] FUTURE COMP METABOLIC PANEL [SQCMP] Order #: [id number] FUTURE MAGNESIUM BLD [SQMG1] Order #: [id number] FUTURE PREALBUMIN BLD [SQPREALB] Order #: [id number] FUTURE Prescriptions as of 01/30/2018 Sig: SSKDYT-FJEFILXZ-CYERPBL 12,00* Take by mouth three times raad* [...] this encounter CALCIUM 600 ORAL >> Rema Dondonald Special Needs Caregiver 01/30/2018 3:50 PM >> SASENA CLAIMS ADJUDICATOR, REMA Fri Jan 30, 2018 3:50 PM Problem List As [...] ulcer disease with hemorrhage [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 [...] KESHA HEMATOCRIT Collected: 01/26/2018 Status: F Source: [place] 4:00 PM [facility] REPOSITORY TYPE CODE TESTS RESULT OUT OF REFERENCE UNITS RANGE LAB WHCT 36.0-46.0 % Low [place] Hematocrit 31.9 Result Comment: Test performed at: [address] [place] [address]. KESHA HEMOGLOBIN Collected: 01/26/2018 Status: F Source: [place] 4:00 PM [facility] REPOSITORY TYPE CODE TESTS RESULT OUT OF REFERENCE UNITS RANGE LAB WHGB 11.5-15.5 g/dL Low [place] Hemoglobin 10.3 Result Comment: Test performed at: [address] [place] [address]. PROGRESS Observed: 01/22/2018 Status: COMPLETED Source: [place] 1:25 PM [facility] REPOSITORY HNO ID: [id number] Author: Austen Pierson Service: (none) Author Type: [...] Barajas for weight loss. Originally, she was from?[facility] and was adopted?by a family in the [place] at 1-1/2 years of age. In [...] give her diarrhea. She had also tried [place] [employer], but while she had it [...] reported that she had been away in [place] for 3 weeks and thought that she [...] is in the HPI. Current Outpatient Prescriptions: vwiwba-qubsxanr-vsdhkbe (CREON 12) 12,000-38,000 -60,000 unit cpDR Take [...] REVIEWED DATA 11/07/2015 (Dr. Jacob Belcher / [facility]) EGD. Findings: ?The examined esophagus was normal. [...] CMV-related enteritis. 08/01/2016 (Dr. Andrey Barajas / [facility]) EGD. Findings: Localized candidiasis was found in [...] Helicobacter pylori. 11/01/2016 (Dr. Sahil Kurtz / [facility]) EGD. Findings: No gross lesions were noted [...] examined jejunal lumen appeared grossly normal. 11/17/2016 ([facility] / LAB) Gastric remnant, Biopsies ? Acute and Chronic gastritis. Immunohistochemical stain for Helicobacter pylori is negative for organisms. Comment: There are no cytologic features of CMV infection identified. This was evaluated using a laboratory developed test. 12/20/2016 (Dr. Prabhu Dahl AND Dr. Delano Segovia / [facility]) EGD. Findings: The examined esophagus was normal. Evidence of a Layne-en-Y gastrojejunostomy was found. This was not traversed. The usdbh-ny-tijmufr limb was characterized by ulceration with a [...] appeared intact. 12/21/2016 (Dr. Ruby Hernández / [facility]) EGD. Findings: The examined esophagus was normal. [...] lesion seen. 12/22/2016 (Dr. Jacob Cruz / [facility]) EGD. Findings: The examined esophagus was normal. [...] 39 cm. 12/25/2016 (Dr. Ruby Hernández / [facility]) EGD. Findings: The examined esophagus was normal. [...] stained sections. 02/19/2017 (Dr. Raman Almeida / [facility]) EGD. Findings: There is no endoscopic evidence [...] HPI: This is a 46-year-old woman from [facility] who was adopted into a family in the [facility] at 1-1/2 years of age. In 2000, [...] - 20.0 ng/mL ? 5.9 ? Hemoglobin, [place] 11.5 - 15.5 g/dL ? ? 9.8 (L) Hematocrit, [place] 36.0 - 46.0 % ? ? 31.0 [...] - 4.00 k/uL 0.58 (L) ? ? [place]% % 2.9 ? ? Abs [facility] <0.87 k/uL 0.40 ? ? Eosin% % [...] 1.20 mg/L 1.36 (H) ? ? Hemoglobin, [place] 11.5 - 15.5 g/dL ? ? 10.9 [...] 13 eGFR-All Other Races . 11 Hemoglobin, [place] 11.5 - 15.5 g/dL 10.6 (L) 8.8 (L) 9.9 (L) 10.2 (L) Hematocrit, [place] 36.0 - 46.0 % 32.9 (L) 27.9 (L) 31.1 (L) 32.0 (L) Box Annealer Specimen originated from [facility] . . . Assessment DISCUSSION: We [...] Osteopenia Vitamin B12 deficiency PLAN Patient has?a [employer] account. Labs as ordered - can get closer to home at a [facility] lab - download to [employer] Trial of ORS - information and samples of Drip Drop Discussed vitamin B12 injections and that she has 3 mL vials for 1 mL/month and then 3 refills To alter diet - decrease Magalys dedrick and try to increase intake RTC about 8 weeks Letter to Drs. Barajas and Bri, PCP and rByan Koo, DAYANNA Pierson MD January 30, 2018 [place] HEMATOCRIT Collected: 01/12/2018 Status: F Source: [place] 11:06 AM [facility] REPOSITORY TYPE CODE TESTS RESULT OUT OF REFERENCE UNITS RANGE LAB WHCT 36.0-46.0 % Low [place] Hematocrit 32.0 Result Comment: Test performed at: [facility], [address] [place] [address]. KESHA HEMOGLOBIN Collected: 01/12/2018 Status: F Source: [place] 11:06 AM [facility] REPOSITORY TYPE CODE TESTS RESULT OUT OF REFERENCE UNITS RANGE LAB WHGB 11.5-15.5 g/dL Low [place] Hemoglobin 10.2 Result Comment: Test performed at: [facility], [address] [place] [address]. PROGRESS Observed: 01/06/2018 Status: COMPLETED Source: [place] 12:21 PM [facility] REPOSITORY HNO ID: [id number] Author: Asia Mendoza (Pa) Service: (none) Author Type: Physician Size Worker Type: Progress Notes Filed: 01/06/2018 12:24 PM Note Text: Results were negative for high-risk HPV as noted below. Note results had gone to incorrect provider in [facility] causing delay in receiving/reviewing results. PROCEDURE(S) CISH HPV LOW RISK ? Date Ordered: ?10/14/2017 ? ? ? Date Reported: ?10/16/2017 Procedure Results and Interpretation At request of the clinician, chromogenic in situ hybridization (CISH) studies for high risk HPV were obtained on case [id number]. The results of HPV CISH testing [...] LOWER NAEL Observed: 12/30/2017 Status: F Source: [place] 6:58 PM [facility] CAMP[facility] REPOSITORY * * *Final Report* * * DATE OF EXAM: Dec 30 2017 6:58PM MDU 1005 - US DVT LOWER NAEL / [...] the knee due to swelling and edema Process Control Specialist: [facility] Transcribe Date/Time: Dec 30 2017 5:13P Dictated by : EFFIE RODRIGUEZ MD This examination was interpreted and the report reviewed and electronically signed by: EFFIE RODRIGUEZ MD on Dec 30 2017 5:14PM EST [id number] [place] HEMATOCRIT Collected: 12/29/2017 Status: F Source: [place] 12:46 PM [facility] REPOSITORY TYPE CODE TESTS RESULT OUT OF REFERENCE UNITS RANGE LAB WHCT 36.0-46.0 % Low [place] Hematocrit 31.1 Result Comment: Test performed at: [facility], [address] [place] [address]. KESHA HEMOGLOBIN Collected: 12/29/2017 Status: F Source: [place] 12:46 PM [facility] [place] REPOSITORY TYPE CODE TESTS RESULT OUT OF REFERENCE UNITS RANGE LAB WHGB 11.5-15.5 g/dL Low [place] Hemoglobin 9.9 Result Comment: Test performed at: [facility], [address] [place] [address]. PROGRESS Observed: 12/23/2017 Status: COMPLETED Source: [place] 2:26 PM [facility] REPOSITORY HNO ID: [id number] Author: Bryan Graham (Dayanna) Hanane Service: (none) Author Type: Nurse [...] hydrated but struggles with this. RICKY at [facility], last 12/15/17 Aranesp 60mcg Average BP [...] Lymph 1.00 - 4.00 k/uL 0.58 (L) [place]% % 2.[address] [place] <0.87 k/uL 0.40 Eosin% % 0.3 Abs [...] by PCR Folate >4.7 ng/mL >20.0 Hemoglobin, [place] 11.5 - 15.5 g/dL 8.8 (L) Hematocrit, [place] 36.0 - 46.0 % 27.9 (L) PHYSICAL [...] will watch for now -Anemia-on RICKY at [facility], hgb 8.8 Chronic thrombocytopenia -Reduced PO Intake/Malnutrition/Wt loss -Hx of pancreatitis PLAN: Continue present management Watch dietary intake in take of sodium Avoid NSAIDS and contrast exposure Await final EGD findings Will d/w Dr. Yoseph Koo, RN CASE RESOURCE MANAGER.DAYANNA I spent 25 minutes in the visit, with more than 50% of the total rlrg-tw-savq time of the visit in counseling / coordination of care. CNOV Observed: 12/23/2017 Status: COMPLETED Source: [place] 1:50 PM [facility] REPOSITORY Office Visit (NEPHMN) VAL VALVERDE ([id number]) 1970 F TRN Date Time Provider Department 12/23/17 1:50 PM BRYAN KOO (DAYANNA) NEPHZOHAIB During your visit today, we recorded the following information about you: Temperature Pulse Blood pressure Weight 95.9 degrees 74/minute 135/87 34.1 kg Height 1.499 m Bryan Koo RN APRN.DAYANNA 02/18/2018 3:44 PM Addendum Patient presents for [...] hydrated but struggles with this. RICKY at [facility], last 12/15/17 Aranesp 60mcg Average BP [...] Lymph 1.00 - 4.00 k/uL 0.58 (L) [facility]% % 2.[address] [place] <0.87 k/uL 0.40 Eosin% % 0.3 Abs [...] 11.5 - 15.5 g/dL 8.8 (L) Hematocrit, [place] 36.0 - 46.0 % 27.9 (L) PHYSICAL [...] will watch for now -Anemia-on RICKY at [place], hgb 8.8 Chronic thrombocytopenia -Reduced PO Intake/Malnutrition/Wt loss -Hx of pancreatitis PLAN: Continue present management Watch dietary intake in take of sodium Avoid NSAIDS and contrast exposure Await final EGD findings Will d/w Dr. Yoseph Koo, RN CASE RESOURCE MANAGER.BIODIESEL ENGINEERING MANAGER I spent 25 minutes in the visit, with more than 50% of the total fheq-cx-rhsu time of the visit in counseling / coordination of care. Referring Provider: BRYAN KOO (BIODIESEL ENGINEERING MANAGER) [[id number]] Allergies As of Date: 12/23/2017 Noted Allergy [...] [B37.81] Order(s):UA CHEMSTRIP ONLY [SQUA] Order #: [id number] FUTURE UA CHEMSTRIP ONLY [SQUA] Order #: [id number]. 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 [...] Reason for discontinue is not on file. mtprzg-vycyveru-yphoegu (CREON) 12,0* 90 c* 11 03/27/2017 12/23/2017 [...] and Disposition History Recorded Encounter Status:Closed by REBELDiamondBRYAN DAYANNA on 01/16/18 URINALYSIS Collected: 12/23/2017 Status: F Source: [place] 12:06 PM [facility] REPOSITORY TYPE CODE TESTS RESULT OUT OF RANGE REFERENCE UNITS LAB UCOL Yellow Color Yellow LAB [facility] Clear Clarity Clear LAB UGLUC Negative mg/dL Glucose, Urine Negative LAB UBIL Negative Bilirubin, Urine Negative LAB UKET Negative Ketones, Urine Negative LAB USPG 1.005-1.030 Specific [place], Ur 1.012 LAB UHGB Negative Hemoglobin/Blood, Negative Ur LAB UPH 4.5-8.0 pH 5.5 LAB UPROT Negative mg/dL Protein, Abnormal Urine 30 Alert LAB UUROB Normal Urobilinogen Normal LAB UNITR Negative Nitrites Negative LAB ULKEST Negative Leukest Negative LAB UCOM Comments SEE COMMENT Result Comment: Microscopic not warranted LAB UMCOM Urine SEE Louie Comment COMMENT Result Comment: N/A Performed By: #### UA #### [facility] [address] [place] [address] SURGICAL PATHOLOGY Observed: 12/23/2017 Status: F Source: [place] 10:23 AM [facility] [place] REPOSITORY Specimen originated from [facility] Specimen #: [id number] Submitting Physician: ANDREY BARAJAS MD FINAL DIAGNOSIS [...] in one cassette. Gross examination performed at [facility], [address] [place] [address] FFS 12/23/2017 6:10:40 PM Date of Report: 12/24/2017 Date of Procedure: 12/23/2017 Date of Receipt: 12/23/2017 Submitted by: ANDREY BARAJAS MD Location: [place] [address] Diagnostic interpretation performed at [place] [address]. TACROLIMUS / [id number] Collected: 12/22/2017 Status: F Source: [place] 12:45 PM [facility] REPOSITORY TYPE CODE TESTS RESULT OUT [...] Test performed by chemiluminescent immunoassay using [employer]. Performed By: #### [id number] #### [facility] [address] [place] [address] COMP METABOLIC PANEL Collected: 12/22/2017 Status: F Source: [place] 12:45 PM [facility] REPOSITORY TYPE CODE TESTS RESULT OUT [...] mg/dL Glucose High 118 Result Comment: The [place] Diabetes Association (ADA) provides guidance for cutoff [...] Standards of Medical Care in Diabetes 2016, [place] Diabetes Association. Diabetes Care. 2016.39(Suppl 1). LAB [...] actual GFR. Performed By: #### CMP #### [facility] [employer] [address] [place], [place] [address] PROGRESS Observed: 12/17/2017 Status: COMPLETED Source: [place] 9:44 AM [facility] REPOSITORY O ID: [id number] Author: Austen Pierson Service: (none) Author Type: Physician Type: Progress Notes Filed: 12/17/2017 9:45 AM Note Text: Correct order placed - please help her to get this scheduled. Austen Pierson MD December 17, 2017 KESHA HEMATOCRIT Collected: 12/15/2017 Status: F Source: [place] 11:08 AM [facility] REPOSITORY TYPE CODE TESTS RESULT OUT OF REFERENCE UNITS RANGE LAB WHCT 36.0-46.0 % Low Kesha Hematocrit 27.9 Result Comment: Test performed at: [facility], [address] [place] [address] Rd., [place] [address]. KESHA HEMOGLOBIN Collected: 12/15/2017 Status: F Source: [place] 11:08 AM [facility] REPOSITORY TYPE CODE TESTS RESULT OUT OF REFERENCE UNITS RANGE LAB WHGB 11.5-15.5 g/dL Low Kesha Hemoglobin 8.8 Result Comment: Test performed at: [facility], [address] [place] [address] Rd[address] [place] [address]. CNOV Observed: 12/11/2017 Status: COMPLETED Source: [place] 4:10 PM [facility] REPOSITORY Office Visit ([id number]) VAL VALVERDE ([id number]) 1970 F TRN Date Time Provider Department [...] the OWYN Supplements or going back to [place] [employer] with [place] [employer]. We also discussed tube feeding and/or [...] her return visit. PLAN Patient has a [employer] account. Labs as ordered - download to [employer] To alter diet - Magalys dedrick and [...] for weight loss. Originally, she was from [facility] and was adopted by a family in the [facility] at 1-1/2 years of age. In 2000, [...] give her diarrhea. She had also tried [place] [employer], but while she had it in the house, she would usually forget that she had it and would choose the Magalys Dedrick instead. She stated that she had a past history of pancreatitis and had been on Creon for a long time. She had come for help with her weight. Today she states that she has been away in [place] for 3 weeks and thought that she [...] once daily. Disp: 90 tablet Rfl: 3 zdrbrm-tpwetxhm-qacolxp (CREON) 12,000-38,000 -60,000 unit cpDR Take 1 [...] REVIEWED DATA 11/07/2015 (Dr. Jacob Belcher / [facility]) EGD. Findings: The examined esophagus was normal. [...] HSV inclusions. 05/30/2016 (Dr. Andrey Barajas / [facility]) EGD. Findings: The esophagus was normal. LES [...] CMV-related enteritis. 08/01/2016 (Dr. Andrey Barajas / [facility]) EGD. Findings: Localized candidiasis was found in [...] Andrey Barajas AND Dr. Wilma Jones / [facility]) EGD. Findings: The examined esophagus was normal. [...] Helicobacter pylori. 11/01/2016 (Dr. Sahil Kurtz / [facility]) EGD. Findings: No gross lesions were noted [...] examined jejunal lumen appeared grossly normal. 11/17/2016 ([facility] / LAB) Gastric remnant, Biopsies ? Acute and Chronic gastritis. Immunohistochemical stain for Helicobacter pylori is negative for organisms. Comment: There are no cytologic features of CMV infection identified. This was evaluated using a laboratory developed test. 12/20/2016 (Dr. Prabhu Dahl AND Dr. Delano Segovia / [facility]) EGD. Findings: The examined esophagus was normal. Evidence of a Layne-en-Y gastrojejunostomy was found. This was not traversed. The smskr-we-jieftbt limb was characterized by ulceration with a [...] appeared intact. 12/21/2016 (Dr. Ruby Hernández / [facility]) EGD. Findings: The examined esophagus was normal. [...] lesion seen. 12/22/2016 (Dr. Jacob Cruz / [facility]) EGD. Findings: The examined esophagus was normal. [...] 39 cm. 12/25/2016 (Dr. Ruby Hernández / [facility]) EGD. Findings: The examined esophagus was normal. [...] stained sections. 02/19/2017 (Dr. Raman Almeida / [facility]) EGD. Findings: There is no endoscopic evidence [...] with a cold forceps for histology. 02/21/2017 ([facility] Lab) BOY-NORRIS DNA QNT: EBV DNA not detected by PCR. 08/27/2017 (Dr. Alex Tian / Hematology/Oncology) Office Note: HPI: This is a 46-year-old woman from [facility] who was adopted into a family in [...] - 20.0 ng/mL ? 5.9 ? Hemoglobin, [place] 11.5 - 15.5 g/dL ? ? 9.8 [...] Lymph 1.00 - 4.00 k/uL 0.58 (L) [place]% % 2.[address] [place] <0.87 k/uL 0.40 Eosin% % 0.3 Abs [...] 0.30 - 1.20 mg/L 1.36 (H) Hemoglobin, Kesha 11.5 - 15.5 g/dL 10.9 (L) Hematocrit, [...] Pierson MD December 11, 2017 Referring Provider: AUSETN PIERSON [[id number]] Allergies As of Date: 12/11/2017 Noted Allergy [...] deficiency [D51.0] Order(s):DUPLEX DVT VEIN NAEL HC/MM [1036832] Order #: [id number]: 1 cyanocobalamin 1,000 mcg/mL solnInject 1 mL [...] Take 1 tablet by mouth once d* YSPSKI-JZWNOTZW-MRMIGSM 12,00* Take 1 capsule by mouth three* [...] ulcer disease with hemorrhage [K27.4] INVALID FOR*12/30/2016 Emsgd-jo-ugpjxvl kidney injury (HCC) [N17.9, N1*INVALID FOR*12/30/2016 More... [...] 12/11/17 PROGRESS Observed: 12/05/2017 Status: COMPLETED Source: [place] 7:20 AM [facility] [place] REPOSITORY HNO ID: [id number] Author: Austen Pierson Service: (none) Author Type: [...] the OWYN Supplements or going back to [place] [employer] with [place] [employer]. We also discussed tube feeding and/or [...] her return visit. PLAN Patient has a [employer] account. Labs as ordered - download to [employer] To alter diet - Magalys dedrick and [...] for weight loss. Originally, she was from [facility] and was adopted by a family in [...] give her diarrhea. She had also tried [place] [employer], but while she had it in the house, she would usually forget that she had it and would choose the [employer]ys Dedrick instead. She stated that she had a past history of pancreatitis and had been on Creon for a long time. She had come for help with her weight. Today she states that she has been away in [place] for 3 weeks and thought that she [...] once daily. Disp: 90 tablet Rfl: 3 nianah-tdkvkatm-dmjvghx (CREON) 12,000-38,000 -60,000 unit cpDR Take 1 [...] REVIEWED DATA 11/07/2015 (Dr. Jacob Belcher / [facility]) EGD. Findings: The examined esophagus was normal. [...] HSV inclusions. 05/30/2016 (Dr. Andrey Barajas / [facility]) EGD. Findings: The esophagus was normal. LES [...] CMV-related enteritis. 08/01/2016 (Dr. Andrey Barajas / [facility]) EGD. Findings: Localized candidiasis was found in [...] Andrey Barajas AND Dr. Wilma Jones / [facility]) EGD. Findings: The examined esophagus was normal. [...] Helicobacter pylori. 11/01/2016 (Dr. Sahil Kurtz / [facility]) EGD. Findings: No gross lesions were noted [...] examined jejunal lumen appeared grossly normal. 11/17/2016 ([facility] / LAB) Gastric remnant, Biopsies ? Acute and Chronic gastritis. Immunohistochemical stain for Helicobacter pylori is negative for organisms. Comment: There are no cytologic features of CMV infection identified. This was evaluated using a laboratory developed test. 12/20/2016 (Dr. Prabhu Dahl AND Dr. Delano Segovia / [facility]) EGD. Findings: The examined esophagus was normal. Evidence of a Layne-en-Y gastrojejunostomy was found. This was not traversed. The fqswj-zx-nrqpdnh limb was characterized by ulceration with a [...] appeared intact. 12/21/2016 (Dr. Ruby Hernández / [facility]) EGD. Findings: The examined esophagus was normal. [...] lesion seen. 12/22/2016 (Dr. Jacob Cruz / [facility]) EGD. Findings: The examined esophagus was normal. [...] 39 cm. 12/25/2016 (Dr. Ruby Hernández / [facility]) EGD. Findings: The examined esophagus was normal. [...] stained sections. 02/19/2017 (Dr. Raman Almeida / [facility]) EGD. Findings: There is no endoscopic evidence [...] HPI: This is a 46-year-old woman from [facility] who was adopted into a family in the [facility] at 1-1/2 years of age. In 2000, [...] - 20.0 ng/mL ? 5.9 ? Hemoglobin, [place] 11.5 - 15.5 g/dL ? ? 9.8 [...] Lymph 1.00 - 4.00 k/uL 0.58 (L) [place]% % 2.[address] [place] <0.87 k/uL 0.40 Eosin% % 0.3 Abs [...] 0.30 - 1.20 mg/L 1.36 (H) Hemoglobin, [place] 11.5 - 15.5 g/dL 10.9 (L) Hematocrit, [place] 36.0 - 46.0 % 33.5 (L) Assessment [...] KESHA HEMATOCRIT Collected: 11/17/2017 Status: F Source: [place] 11:40 AM [facility] REPOSITORY TYPE CODE TESTS RESULT OUT OF REFERENCE UNITS RANGE LAB WHCT 36.0-46.0 % Low Kesha Hematocrit 32.9 Result Comment: Test performed at: [facility], [address] [place] [address]. KESHA HEMOGLOBIN Collected: 11/17/2017 Status: F Source: [place] 11:40 AM [facility] REPOSITORY TYPE CODE TESTS RESULT OUT OF REFERENCE UNITS RANGE LAB WHGB 11.5-15.5 g/dL Low Kesha Hemoglobin 10.6 Result Comment: Test performed at: [facility], [address] [place] [address]. COMP METABOLIC PANEL Collected: 11/12/2017 Status: F Source: [place] 12:40 PM [facility] REPOSITORY TYPE CODE TESTS RESULT OUT OF REFERENCE UNITS RANGE LAB TP 6.3-8.0 g/dL Protein, Total 6.3 LAB ALB 3.9-4.9 g/dL Low Albumin 3.4 LAB CA 8.5-10.2 mg/dL Calcium, Total 8.6 LAB TBIL 0.2-1.3 mg/dL Bilirubin, Total 0.2 LAB ALKP 32-117 U/L Alkaline Phosphatase 101 LAB AST 13-35 U/L AST 30 LAB GLU 74-99 mg/dL Glucose High 102 Result Comment: The [place] Diabetes Association (ADA) provides guidance for cutoff [...] Standards of Medical Care in Diabetes 2016, [place] Diabetes Association. Diabetes Care. 2016.39(Suppl 1). LAB [...] actual GFR. Performed By: #### CMP #### [facility] [employer] [address] [place], [place] [address] RENAL FUNCTION PANEL Collected: 11/12/2017 Status: F Source: [place] 12:40 PM [facility] REPOSITORY TYPE CODE TESTS RESULT OUT OF REFERENCE UNITS RANGE LAB ALB 3.9-4.9 g/dL Low Albumin 3.5 LAB CA 8.5-10.2 mg/dL Low Calcium, Total 8.1 LAB PHOS 2.7-4.8 mg/dL Phosphorus 3.3 LAB GLU 74-99 mg/dL Glucose High 102 Result Comment: The [place] Diabetes Association (ADA) provides guidance for cutoff [...] Standards of Medical Care in Diabetes 2016, [place] Diabetes Association. Diabetes Care. 2016.39(Suppl 1). LAB [...] actual GFR. Performed By: #### RFP #### [facility] [employer] [address] [place] [id number] TACROLIMUS / [id number] Collected: 11/12/2017 Status: F Source: [place] 12:40 PM [facility] REPOSITORY TYPE CODE TESTS RESULT OUT [...] Test performed by chemiluminescent immunoassay using [employer]. Performed By: #### [id number] #### [facility] [employer] [address] [place] [id number] KESHA HEMATOCRIT Collected: 11/03/2017 Status: F Source: [place] 10:49 AM [facility] REPOSITORY TYPE CODE TESTS RESULT OUT OF REFERENCE UNITS RANGE LAB WHCT 36.0-46.0 % Low Kesha Hematocrit 33.5 Result Comment: Test performed at: [facility], [address] [place] [address]. KESHA HEMOGLOBIN Collected: 11/03/2017 Status: F Source: [place] 10:49 AM [facility] REPOSITORY TYPE CODE TESTS RESULT OUT OF REFERENCE UNITS RANGE LAB WHGB 11.5-15.5 g/dL Low [place] Hemoglobin 10.9 Result Comment: Test performed at: [facility], [address] [place] [address]. PROGRESS Observed: 10/22/2017 Status: COMPLETED Source: [place] 4:42 PM [facility] [place] REPOSITORY HNO ID: [id number] Author: Wil To Service: (none) Author Type: [...] (VITAMIN D3) 50,000 unit cap capsule - txngtf-zezswebs-lzwcpvk (CREON) 12,000-38,000 -60,000 unit cpDR - Calcium [...] diet and improving her habits of eating. MD PRISCA MEDINAOV Observed: 10/22/2017 Status: COMPLETED Source: [place] 4:20 PM [facility] REPOSITORY Office Visit (INTMWS) VAL VALVERDE ([id number]) 1970 F TRN Date Time Provider Department 10/22/17 4:20 PM WIL TO During your visit today, we recorded the [...] (VITAMIN D3) 50,000 unit cap capsule - pwqitm-vkcnmmgt-zlonrmn (CREON) 12,000-38,000 -60,000 unit cpDR - Calcium [...] WIL TO MD Referring Provider: WIL TO [[id number]] Allergies As of Date: 10/22/2017 Noted Allergy [...] * Patient not taking: Reported on 10/20/2017 TUMHFF-CGRBXYGO-IOVEVQU 12,00* Take 1 capsule by mouth three* [...] ulcer disease with hemorrhage [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 [...] KESHA HEMATOCRIT Collected: 10/20/2017 Status: F Source: [place] 2:19 PM [facility] REPOSITORY TYPE CODE TESTS RESULT OUT OF REFERENCE UNITS RANGE LAB WHCT 36.0-46.0 % Low [place] Hematocrit 29.2 Result Comment: Test performed at: [address] [place] [address]. KESHA HEMOGLOBIN Collected: 10/20/2017 Status: F Source: [place] 2:19 PM [facility] REPOSITORY TYPE CODE TESTS RESULT OUT OF REFERENCE UNITS RANGE LAB WHGB 11.5-15.5 g/dL Low [place] Hemoglobin 9.3 Result Comment: Test performed at: [address] [place] [address]. SURGICAL PATHOLOGY Observed: 10/14/2017 Status: F Source: [place] 10:10 AM [facility] REPOSITORY PROCEDURE REPORT Specimen originated from [facility] Specimen #: [id number] Submitting Physician: KERI ADAME CNP SPECIMEN SUBMITTED A: 1 BLOCK ([id number]) PROCEDURE(S) CISH HPV LOW RISK Date Ordered: 10/14/2017 Date Reported: 10/16/2017 Procedure Results and Interpretation At request of the clinician, chromogenic in situ hybridization (CISH) studies for high risk HPV were obtained on case [id number]. The results of HPV CISH testing are negative for high risk HPV. Clinical correlation is recommended. Laboratory Developed Test (LDT) Disclaimer: Positive and negative controls stain appropriately. Performance characteristics of immunohistochemical, immunofluorescent and chromogenic in-situ hybridization tests have been determined by [facility]'s [facility] [place] ([facility]) in a manner consistent with CLIA requirements. One or more of these tests have not been cleared or approved by the FDA. [facility] is regulated under CLIA as qualified to perform high-complexity testing. These tests are used for clinical purposes. They should not be regarded as investigational or for research. WFLaura//hood/10/16/17 Procedure Pathologist: Mary Vasquez M.D. Electronic Signature CLINICAL DATA None provided. Date of Report: Date of Procedure: 10/14/2017 Date of Receipt: 10/14/2017 Submitted: KERI ADAME CNP Location: [facility] Diagnostic interpretation performed at [facility], [address] [place] [address]. PROGRESS Observed: 10/09/2017 Status: COMPLETED Source: [place] 3:24 PM [facility] REPOSITORY HNO ID: [id number] Author: Asia Mendoza ([place]) Service: (none) Author Type: Physician Size Worker Type: Progress Notes Filed: 10/09/2017 3:26 PM Note Text: Discussed w/pathologist who will perform CISH testing to help determine high-risk vs low-risk condyloma, based upon these results will make further follow-up recommendations RENAL FUNCTION PANEL Collected: 10/06/2017 Status: F Source: [place] 2:41 PM [facility] REPOSITORY TYPE CODE TESTS RESULT OUT OF REFERENCE UNITS RANGE LAB ALB 3.9-4.9 g/dL 3.4 Low Albumin LAB CA 8.5-10.2 mg/dL 8.7 Calcium, Total LAB PHOS 2.7-4.8 mg/dL Unable to Phosphorus assay. Specimen significantly hemolyzed. LAB GLU 74-99 mg/dL 116 High Glucose Result Comment: The [place] Diabetes Association (ADA) provides guidance for cutoff [...] Standards of Medical Care in Diabetes 2016, [place] Diabetes Association. Diabetes Care. 2016.39(Suppl 1). LAB [...] actual GFR. Performed By: #### RFP #### [place] [address] [place], [place] [address] TACROLIMUS / [id number] Collected: 10/06/2017 Status: F Source: [place] 2:41 PM [facility] REPOSITORY TYPE CODE TESTS RESULT [...] Test performed by chemiluminescent immunoassay using [employer]. Performed By: #### [id number] #### [place] [id number] [place] [id number] BK VIRUS PCR,QUANT,P Collected: 10/06/2017 Status: F Source: [place] 2:41 PM [facility] REPOSITORY TYPE CODE TESTS RESULT OUT OF REFERENCE UNITS RANGE LAB BKVDNA copies/mL BK Negative for Virus DNA BK virus DNA QN PCR by PCR Result Comment: Reference Range: Negative for BK virus DNA The Linear Range of this assay is 500 copies/mL to 5,000,000 copies/mL. This test was developed and its performance characteristics determined by [facility]'s [facility] [place] ([facility]). It has not been cleared or approved by the FDA. -[facility] is regulated under CLIA as qualified to perform high-complexity testing. This test is used for clinical purposes. It should not be regarded as investigational or for research. Performed By: #### BKQUAN #### [place] [address] MISC SEND OUT TEST Collected: 10/06/2017 Status: F Source: [place] 2:40 PM [facility] REPOSITORY TYPE CODE TESTS RESULT OUT OF REFERENCE UNITS RANGE LAB NAME1 CYTOMEGALOVIRUS Test GENOTYPE LAB RESU1 View results in Test Scanned Documents Results link when available. Performed By: #### WILD13 #### [place] [address] PROTIME Collected: 10/06/2017 Status: F Source: [place] 2:39 PM [facility] REPOSITORY TYPE CODE TESTS RESULT OUT OF RANGE REFERENCE UNITS LAB PSEC 9.7-13.0 sec Low PT Sec 9.4 Result Comment: Result rechecked. LAB INR 0.9-1.3 Low PT INR <0.9 Result Comment: Vitamin K Antagonist (VKA) Therapeutic Range: INR 2 to 3 (Target INR of 2.5) Note: For patients treated with VKA drugs, such as warfarin, the [place] College [employer]icians 2012 Guideline recommends [...] to 3.5 (target INR of 3). Kumar NAQVI, et al. Chest 2012, 141:7S-47S Jin RA, et al. [facility] 2017, 70: 252-289 Result rechecked. Sample checked for a clot. Performed By: #### PT, PREALB, B12, SERFOL, CBCDIF, FERR, CMP, MG1, IRON, VITD, TUYET, MMA #### [place] [address] [place] [phone] #### VITB6, B1VIT #### [facility] [address] [place] [address] [phone] PREALBUMIN Collected: 10/06/2017 Status: F Source: [place] 2:39 [facility] REPOSITORY TYPE CODE TESTS RESULT OUT OF REFERENCE UNITS RANGE LAB PREALB 17-36 mg/dL Prealbumin 34 Performed By: #### PT, PREALB, B12, SERFOL, CBCDIF, FERR, CMP, MG1, IRON, VITD, TUYET, MMA #### [place] [address] [place] [phone] #### VITB6, B1VIT #### [facility] [address] [place] [address] [phone] VITAMIN B12 Collected: 10/06/2017 Status: F Source: [place] 2:39 PM [facility] REPOSITORY TYPE CODE TESTS RESULT OUT OF REFERENCE UNITS RANGE LAB B12 232-1245 pg/mL Vitamin B12 1238 Performed By: #### PT, PREALB, B12, SERFOL, CBCDIF, FERR, CMP, MG1, IRON, VITD, TUYET, MMA #### [place] [address] [place], [place] [address] #### VITB6, B1VIT #### [facility] [address] [place] [address] [phone] FOLATE, SERUM Collected: 10/06/2017 Status: F Source: [place] 2:39 PM [facility] REPOSITORY TYPE CODE TESTS RESULT OUT [...] III (Folate III) [package insert V 1.0 Lithuanian]. [employer], [place], [place]: March 2015. Performed By: #### PT, PREALB, B12, SERFOL, CBCDIF, FERR, CMP, MG1, IRON, VITD, TUYET, MMA #### [place] [address] [place], [place] [address] #### VITB6, B1VIT #### [facility] [address] [place] [address] [phone] CBC AND DIFFERENTIAL Collected: 10/06/2017 Status: F Source: [place] 2:39 [facility] REPOSITORY TYPE CODE TESTS RESULT [...] Low Abs Lymph 0.58 LAB AMONO % [facility]% 2.9 LAB AAMONO <0.87 k/uL Abs [facility] 0.40 LAB AEOS % Eosin% 0.3 LAB [...] CMP, MG1, IRON, VITD, TUYET, MMA #### [facility] [employer] [address] [place] [phone] #### VITB6, B1VIT #### [facility] [address] [place], [place] [id number] [phone] FERRITIN Collected: 10/06/2017 Status: F Source: [place] 2:39 PM [facility] REPOSITORY TYPE CODE TESTS RESULT OUT OF REFERENCE UNITS RANGE LAB FERR 14.7-205.1 ng/mL High Ferritin 1357.0 Performed By: #### PT, PREALB, B12, SERFOL, CBCDIF, FERR, CMP, MG1, IRON, VITD, TUYET, MMA #### [facility] [employer] [address] [place] [address] #### VITB6, B1VIT #### [facility] [address] [place] [address] [phone] COMP METABOLIC PANEL Collected: 10/06/2017 Status: F Source: [place] 2:39 PM [facility] REPOSITORY TYPE CODE TESTS RESULT OUT [...] mg/dL High Glucose 113 Result Comment: The [place] Diabetes Association (ADA) provides guidance for cutoff [...] Standards of Medical Care in Diabetes 2016, [place] Diabetes Association. Diabetes Care. 2016.39(Suppl 1). LAB [...] has been calibrated to be traceable to [employer] An eGFR <60 mL/min/1.73m2 for >3 months is consistent with chronic kidney disease. Refer to KDOQI guidelines for clinical interpretation. In patients with unstable renal function, e.g. those with acute kidney injury, the eGFR may not accurately reflect actual GFR. Performed By: #### PT, PREALB, B12, SERFOL, CBCDIF, FERR, CMP, MG1, IRON, VITD, TUYET, MMA #### [place] [phone] #### VITB6, B1VIT #### [place] [address] [phone] MAGNESIUM Collected: 10/06/2017 Status: F Source: [place] 2:39 PM [facility] REPOSITORY TYPE CODE TESTS RESULT OUT OF REFERENCE UNITS RANGE LAB MG 1.7-2.3 mg/dL Magnesium 2.2 Performed By: #### PT, PREALB, B12, SERFOL, CBCDIF, FERR, CMP, MG1, IRON, VITD, TUYET, MMA #### [place] [phone] #### VITB6, B1VIT #### [place] [address] [phone] IRON AND TIBC Collected: 10/06/2017 Status: F Source: [place] 2:39 PM [facility] REPOSITORY TYPE CODE TESTS RESULT OUT OF REFERENCE UNITS RANGE LAB IRN 41-186 ug/dL Iron 65 LAB TIBC 232-386 ug/dL TIBC 237 LAB SAT 15-57 % Transferrin Saturatn 27 Performed By: #### PT, PREALB, B12, SERFOL, CBCDIF, FERR, CMP, MG1, IRON, VITD, TUYET, MMA #### [place] [phone] #### VITB6, B1VIT #### [place] [address] [phone] VITAMIN D 25 HYDROXY Collected: 10/06/2017 Status: F Source: [place] 2:39 PM [facility] REPOSITORY TYPE CODE TESTS RESULT OUT [...] CMP, MG1, IRON, VITD, TUYET, MMA #### [place] [id number] #### VITB6, B1VIT #### [address] [address] [phone] VITAMIN A Collected: 10/06/2017 Status: F Source: [place] 2:39 [facility] REPOSITORY TYPE CODE TESTS RESULT OUT OF REFERENCE UNITS RANGE LAB TUYET 0.30-1.20 mg/L High Vitamin A 1.36 Result Comment: This test was developed and its performance characteristics determined by [facility]ology [facility] Laboratory [facility] [place] ([facility]). It has not been cleared or approved by the FDA. -[facility] is regulated under CLIA as qualified to perform high-complexity testing. This test is used for clinical purposes. It should not be regarded as investigational or for research. Performed By: #### PT, PREALB, B12, SERFOL, CBCDIF, FERR, CMP, MG1, IRON, VITD, TUYET, MMA #### [place] [address] #### VITB6, B1VIT #### [address] [address] [phone] METHYLMALONIC ACID Collected: 10/06/2017 Status: F Source: [place] 2:39 [facility] REPOSITORY TYPE CODE TESTS RESULT OUT OF REFERENCE UNITS RANGE LAB MMA 79-376 nmol/L Methylmalonic High Acid 762 Result Comment: This test was developed and its performance characteristics determined by [facility] [place] ([facility]). It has not been cleared or approved by the FDA. -PLKS is regulated under CLIA as qualified to perform high-complexity testing. This test is used for clinical purposes. It should not be regarded as investigational or for research. Performed By: #### PT, PREALB, B12, SERFOL, CBCDIF, FERR, CMP, MG1, IRON, VITD, TUYET, MMA #### [place] [address] [place] [address] #### VITB6, B1VIT #### [address] [address] [phone] VITAMIN B6 PLASMA Collected: 10/06/2017 Status: F Source: [place] 2:39 PM [facility] REPOSITORY TYPE CODE TESTS RESULT OUT OF REFERENCE UNITS RANGE LAB VITB6 20.0-125.0 nmol/L Vitamin B6 71.4 Plasma Result Comment: (NOTE) INTERPRETIVE INFORMATION: Vitamin B6 (Pyridoxal 5-Phosphate) Pyridoxal 5'-phosphate measured in a specimen collected following an 8-hour or overnight fast accurately indicates vitamin B6 nutritional status. Non-fasting specimen concentration reflects recent vitamin intake. Test developed and characteristics determined by [facility]. See Compliance Statement B: [employer] Performed by [facility], [address] [place] [id number] [email or web address], Jeff Cabral MD, Lab. Director Performed By: #### PT, PREALB, B12, SERFOL, CBCDIF, FERR, CMP, MG1, IRON, VITD, TUYET, MMA #### [place] [id number] [place] [address] #### VITB6, B1VIT #### [address] [address] [phone] VITAMIN B1,WHOLE BLD Collected: 10/06/2017 Status: F Source: [place] 2:39 PM [facility] REPOSITORY TYPE CODE TESTS RESULT OUT [...] measured. Test developed and characteristics determined by [facility]. See Compliance Statement B: [employer] Performed by [facility], [address] [place] [address] [email or web address], Jeff Cabral MD, Lab. Director Performed By: #### PT, PREALB, B12, SERFOL, CBCDIF, FERR, CMP, MG1, IRON, VITD, TUYET, MMA #### [place] [address] [place], [place] [address] #### VITB6, B1VIT #### [facility] [address] [place] [address] [phone] CNOV Observed: 10/06/2017 Status: COMPLETED Source: [place] 12:40 PM [facility] REPOSITORY Office Visit (GASTA5) VAL VALVERDE ([id number]) 1970 F TRN Date Time Provider Department [...] for weight loss. Originally, she was from [facility] and was adopted by a family in [...] then gives her diarrhea. 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 medicinal (marinol), smokes at night/ Sexual activity: Yes Partners with: Male control/protection: IUD Comment: Nam Other Topics Concern Service No Blood Transfusions No Caffeine Concern Yes Comment:[address] Cordon Sleep Concern No Stress Concern Yes Comment:some Weight Concern Yes Comment:underweight Special Diet Yes Comment:some foods cause nausea Back Care No Exercise No Bike Helmet No Seat Belt Yes Social History Narrative , no children Works at [employer], [place] Occupation: on disability FAMILY HISTORY Has anyone [...] D DEFICIENCY Disp: 12 capsule Rfl: 1 qanwqy-ehjnmicy-hxloecw (CREON) 12,000-38,000 -60,000 unit cpDR Take 1 [...] influenza Genitourinary: Kidney stones and Kidney transplant 2010 Endocrine/Metabolic: Osteopenia Neurologic: Negative Musculoskeletal: Arthritis and [...] RECORDS REVIEWED 11/07/2015 (Dr. Jacob Belcher / [facility]) EGD. Findings: The examined esophagus was normal. [...] HSV inclusions. 05/30/2016 (Dr. Andrey Barajas / [facility]) EGD. Findings: The esophagus was normal. LES [...] CMV-related enteritis. 08/01/2016 (Dr. Andrey Barajas / [facility]) EGD. Findings: Localized candidiasis was found in [...] Andrey Barajas AND Dr. Wilma Jones / [facility]) EGD. Findings: The examined esophagus was normal. [...] Helicobacter pylori. 11/01/2016 (Dr. Sahil Kurtz / [facility]) EGD. Findings: No gross lesions were noted [...] examined jejunal lumen appeared grossly normal. 11/17/2016 ([facility] / LAB) Gastric remnant, Biopsies ? Acute and Chronic gastritis. Immunohistochemical stain for Helicobacter pylori is negative for organisms. Comment: There are no cytologic features of CMV infection identified. This was evaluated using a laboratory developed test. 12/20/2016 (Dr. Prabhu Dahl AND Dr. Delano Segovia / [facility]) EGD. Findings: The examined esophagus was normal. Evidence of a Layne-en-Y gastrojejunostomy was found. This was not traversed. The olonh-io-zjgpcml limb was characterized by ulceration with a [...] appeared intact. 12/21/2016 (Dr. Ruby Hernández / [facility]) EGD. Findings: The examined esophagus was normal. [...] lesion seen. 12/22/2016 (Dr. Jacob Cruz / [facility]) EGD. Findings: The examined esophagus was normal. [...] 39 cm. 12/25/2016 (Dr. Ruby Hernández / [facility]) EGD. Findings: The examined esophagus was normal. [...] stained sections. 02/19/2017 (Dr. Raman Almeida / [facility]) EGD. Findings: There is no endoscopic evidence [...] HPI: This is a 46-year-old woman from [facility] who was adopted into a family in the [facility] at 1-1/2 years of age. In 2000, [...] 11.5 - 15.5 g/dL 9.8 (L) Hematocrit, [place] 36.0 - 46.0 % 31.0 (L) Assessment [...] the OWYN Supplements or going back to [place] Instant [employer] with [place] Milk. We also discussed tube feeding and/or [...] Kidney transplant Osteopenia PLAN Patient has a [employer] account. Labs as ordered - download to [employer] To alter diet - Magalys dedrick and [...] or something similar Referring Provider: ANDREY BARAJAS [[id number]] Allergies As of Date: 10/06/2017 Noted Allergy [...] [M85.80] Order(s):CBC + DIFF [SQCBCDIF] Order #: [id number] FUTURE COMP METABOLIC PANEL [SQCMP] Order #: [id number] FUTURE FERRITIN BLD [SQFERR] Order #: [id number] FUTURE FOLATE SERUM [SQSERFOL] Order #: [id number] FUTURE IRON + TIBC [SQIRON] Order #: [id number] FUTURE MAGNESIUM BLD [SQMG1] Order #: [id number] FUTURE METHYLMALONIC ACID [SQMMA] Order #: [id number] FUTURE PREALBUMIN BLD [SQPREALB] Order #: [id number] FUTURE PROTHROMBIN TIME/PT [SQPT] Order #: [id number] FUTURE VITAMIN D 25 HYDROXY [SQVITD] Order #: [id number] FUTURE VITAMIN B6/PYRIDOXIN [SQVITB6] Order #: [id number] FUTURE VITAMIN B12 BLOOD [SQB12] Order #: [id number] FUTURE VITAMIN B1/THIAMINE, WHOLE BLD [WON3MFT] Order #: [id number] FUTURE VITAMIN A/RETINOL [SQVITA] Order #: [id number] FUTURE Prescriptions as of 10/06/2017 Sig: BIOTIN [...] Take 1 capsule by mouth once * WQQICP-FDBTHFRB-JEMJAXJ 12,00* Take 1 capsule by mouth three* [...] ulcer disease with hemorrhage [K27.4] INVALID FOR*12/30/2016 Rkiqx-xp-jupjvjl kidney injury (HCC) [N17.9, N1*INVALID FOR*12/30/2016 More... [...] [place] HEMATOCRIT Collected: 10/06/2017 Status: F Source: [place] 10:25 AM [facility] REPOSITORY TYPE CODE TESTS RESULT OUT OF REFERENCE UNITS RANGE LAB WHCT 36.0-46.0 % Low [place] Hematocrit 33.2 Result Comment: Test performed at: [facility], [address] [place] [address] Rd[address] [place] [address]. [place] HEMOGLOBIN Collected: 10/06/2017 Status: F Source: [place] 10:25 AM [facility] REPOSITORY TYPE CODE TESTS RESULT OUT OF REFERENCE UNITS RANGE LAB WHGB 11.5-15.5 g/dL Low [place] Hemoglobin 10.7 Result Comment: Test performed at: [facility] [place], [address] [place] [address]. PROGRESS Observed: 10/03/2017 Status: COMPLETED Source: [place] 9:43 AM [facility] REPOSITORY HNO ID: [id number] Author: Marietta Moralez LPN Service: (none) Author Type: (none) Type: Progress Notes Filed: 10/08/2017 4:29 PM Note Text: Val Valverde NP 2017 : 1970 11/07/2015 (Dr. Jacob Belcher / [facility]) EGD. [...] CMV-related enteritis. 08/01/2016 (Dr. Andrey Barajas / [facility]) EGD. Findings: Localized candidiasis was found in [...] Andrey Barajas AND Dr. Wilma Jones / [facility]) EGD. Findings: The examined esophagus was normal. [...] Helicobacter pylori. 11/01/2016 (Dr. Sahil Kurtz / [facility]) EGD. Findings: No gross lesions were noted [...] examined jejunal lumen appeared grossly normal. 11/17/2016 ([facility] / LAB) Gastric remnant, Biopsies ? Acute and Chronic gastritis. Immunohistochemical stain for Helicobacter pylori is negative for organisms. Comment: There are no cytologic features of CMV infection identified. This was evaluated using a laboratory developed test. 12/20/2016 (Dr. Prabhu Dahl AND Dr. Delano Segovia / [facility]) EGD. Findings: The examined esophagus was normal. Evidence of a Layne-en-Y gastrojejunostomy was found. This was not traversed. The woino-ym-ehmvucv limb was characterized by ulceration with a [...] appeared intact. 12/21/2016 (Dr. Ruby Hernández / [facility]) EGD. Findings: The examined esophagus was normal. [...] lesion seen. 12/22/2016 (Dr. Jacob Cruz / [facility]) EGD. Findings: The examined esophagus was normal. [...] 39 cm. 12/25/2016 (Dr. Ruby Hernández / [facility]) EGD. Findings: The examined esophagus was normal. [...] stained sections. 02/19/2017 (Dr. Raman Almeida / [facility]) EGD. Findings: There is no endoscopic evidence [...] HPI: This is a 46-year-old woman from [facility] who was adopted into a family in the [facility] at 1-1/2 years of age. In 2000, [...] indicated. HOSP Observed: 10/03/2017 Status: COMPLETED Source: [place] 12:00 AM [facility] REPOSITORY Patient Update (NUMNA5) VAL VALVERDE ([id number]) 1970 F TRN Date Time Provider Department 10/03/17 AUSTEN PIERSON NUMNA5 During your visit today, we recorded the following information about you: Marietta Agueromiguelito SLEEPING CAR PORTER 10/08/2017 4:29 PM Signed Val Valverde. COMB SETTER 2018 : 1970 11/07/2015 (Dr. Jacob Belcher / [facility]) EGD. Findings: The examined esophagus was normal. [...] CMV-related enteritis. 08/01/2016 (Dr. Andrey Barajas / [facility]) EGD. Findings: Localized candidiasis was found in [...] Andrey Barajas AND Dr. Wilma Jones / [facility]) EGD. Findings: The examined esophagus was normal. [...] Helicobacter pylori. 11/01/2016 (Dr. Sahil Kurtz / [facility]) EGD. Findings: No gross lesions were noted [...] examined jejunal lumen appeared grossly normal. 11/17/2016 ([facility] / LAB) Gastric remnant, Biopsies ? Acute and Chronic gastritis. Immunohistochemical stain for Helicobacter pylori is negative for organisms. Comment: There are no cytologic features of CMV infection identified. This was evaluated using a laboratory developed test. 12/20/2016 (Dr. Prabhu Dahl AND Dr. Delano Segovia / [facility]) EGD. Findings: The examined esophagus was normal. Evidence of a Layne-en-Y gastrojejunostomy was found. This was not traversed. The siujw-bk-tmfjaza limb was characterized by ulceration with a [...] appeared intact. 12/21/2016 (Dr. Ruby Hernández / [facility]) EGD. Findings: The examined esophagus was normal. [...] lesion seen. 12/22/2016 (Dr. Jacob Cruz / [facility]) EGD. Findings: The examined esophagus was normal. [...] 39 cm. 12/25/2016 (Dr. Ruby Hernández / [facility]) EGD. Findings: The examined esophagus was normal. [...] stained sections. 02/19/2017 (Dr. Raman Almeida / [facility]) EGD. Findings: There is no endoscopic evidence [...] HPI: This is a 46-year-old woman from [facility] who was adopted into a family in the [facility] at 1-1/2 years of age. In 2000, [...] - Intolerance Date Reviewed: 09/29/2017 Reviewed by: Poppy Brian (Opal) OPAL Galvez - Fully Assessed Prescriptions as [...] Take 1 capsule by mouth once * CUGILQ-OSJTKSTG-SSRMELN 12,00* Take 1 capsule by mouth three* [...] ulcer disease with hemorrhage [K27.4] INVALID FOR*12/30/2016 Cqngk-aa-ztyyohk kidney injury (HCC) [N17.9, N1*INVALID FOR*12/30/2016 More... [...] 10/08/17 PROGRESS Observed: 10/02/2017 Status: COMPLETED Source: [place] 7:15 PM [facility] [place] REPOSITORY O ID: [id number] Author: Austen Pierson Service: (none) Author Type: [...] for weight loss. Originally, she was from [facility] and was adopted by a family in [...] then gives her diarrhea. She has tried [place] [employer], but while she has it [...] stomach stomach cancer - Malnutrition (HCC) - [facility] - PAST MEDICAL HISTORY OF 2001 Blood [...] LASER CO2 , 02/2014, 04/2016 vulvar condyloma Have you ever [...] children: 0 Occupational History Occupation Employer Comment [employer] Social History Main Topics Smoking status: Former [...] History Narrative , no children Works at [employer] Occupation: on disability FAMILY HISTORY Has [...] D DEFICIENCY Disp: 12 capsule Rfl: 1 lzdzbw-nqunwuhc-tzfvknh (CREON) 12,000-38,000 -60,000 unit cpDR Take 1 [...] RECORDS REVIEWED 11/07/2015 (Dr. Jacob Belcher / [facility]) EGD. Findings: The examined esophagus was normal. [...] HSV inclusions. 05/30/2016 (Dr. Andrey Barajas / [facility]) EGD. Findings: The esophagus was normal. LES [...] CMV-related enteritis. 08/01/2016 (Dr. Andrey Barajas / [facility]) EGD. Findings: Localized candidiasis was found in [...] Andrey Barajas AND Dr. Wilma Jones / [facility]) EGD. Findings: The examined esophagus was normal. [...] Helicobacter pylori. 11/01/2016 (Dr. Sahil Kurtz / [facility]) EGD. Findings: No gross lesions were noted [...] examined jejunal lumen appeared grossly normal. 11/17/2016 ([facility] / [facility]) Gastric remnant, Biopsies ? Acute and Chronic gastritis. Immunohistochemical stain for Helicobacter pylori is negative for organisms. Comment: There are no cytologic features of CMV infection identified. This was evaluated using a laboratory developed test. 12/20/2016 (Dr. Prabhu Dahl AND Dr. Delano Segovia / [facility]) EGD. Findings: The examined esophagus was normal. Evidence of a Layne-en-Y gastrojejunostomy was found. This was not traversed. The letod-gb-taeqlsn limb was characterized by ulceration with a [...] appeared intact. 12/21/2016 (Dr. Ruby Hernández / [facility]) EGD. Findings: The examined esophagus was normal. [...] lesion seen. 12/22/2016 (Dr. Jacob Cruz / [facility]) EGD. Findings: The examined esophagus was normal. [...] 39 cm. 12/25/2016 (Dr. Ruby Hernández / [facility]) EGD. Findings: The examined esophagus was normal. [...] stained sections. 02/19/2017 (Dr. Raman Almeida / [facility]) EGD. Findings: There is no endoscopic evidence [...] HPI: This is a 46-year-old woman from [facility] who was adopted into a family in the [facility] at 1-1/2 years of age. In 2000, [...] Tacrolimus/FK506 5.0 - 20.0 ng/mL 5.9 Hemoglobin, [place] 11.5 - 15.5 g/dL 9.8 (L) Hematocrit, [...] the OWYN Supplements or going back to [place] [employer] with [place] Milk. We also discussed tube feeding and/or [...] Kidney transplant Osteopenia PLAN Patient has a [employer] account. Labs as ordered - download to [employer] To alter diet - Magalys dedrick and try to increase intake, e.g., OWYN sample and information Consider trial of tube feeding Nutrition Therapy consultation in the near future RTC about 3-[address] Barajas and Bri, PCP Austen Pierson MD October 06, 2017 PROGRESS Observed: 10/01/2017 Status: COMPLETED Source: [place] 9:35 AM [facility] REPOSITORY HNO ID: [id number] Author: Bryan Koo Service: (none) Author Type: Nurse Practitioner Type: [...] CKD scr. 3.85mg, eGFR 3.85 -Immunosuppression FK 06/19, level 11.5.9 Pred 5mg Off MMF in view gastric ulceration and CMV -Blood Pressure-acceptable on current rx -Anemia-on RICKY at [place], hgb 8.5 Chronic thrombocytopenia PLAN: increase her amlodipine to 5 mg Oral hydration as tolerated Repeat labs 1-2 weeks Scribe Attestation: By signing my name below, I, Petr Pierce, attest that this documentation has been prepared under the direction and in the presence of Bryan Koo, RN, BIODIESEL ENGINEERING MANAGER. Electronically Signed: chau Contreras, October 01, 2017 9:35 AM Provider Attestation: I, Bryan Koo, RN, BIODIESEL ENGINEERING MANAGER, personally performed the services described in this documentation. All medical record entries made by the chau were at my direction and in my presence. I have reviewed the chart and discharge instructions (if applicable) and agree that the record reflects my personal performance and is accurate and complete. Bryan Koo RN, BIODIESEL ENGINEERING MANAGER October 01, 2017 9:35 AM [place] HEMATOCRIT Collected: 09/29/2017 Status: F Source: [place] 11:16 AM [facility] REPOSITORY TYPE CODE TESTS RESULT OUT OF REFERENCE UNITS RANGE LAB WHCT 36.0-46.0 % Low [place] Hematocrit 31.0 Result Comment: Test performed at: [address] [place] [address]. [place] HEMOGLOBIN Collected: 09/29/2017 Status: F Source: [place] 11:16 AM [facility] REPOSITORY TYPE CODE TESTS RESULT OUT OF REFERENCE UNITS RANGE LAB WHGB 11.5-15.5 g/dL Low [place] Hemoglobin 9.8 Result Comment: Test performed at: [facility], [address] [place] [address]., [place] [address]. COMP METABOLIC PANEL Collected: 09/24/2017 Status: F Source: [place] 1:10 PM [facility] REPOSITORY TYPE CODE TESTS RESULT OUT [...] mg/dL Glucose High 111 Result Comment: The [place] Diabetes Association (ADA) provides guidance for cutoff [...] Standards of Medical Care in Diabetes 2016, [place] Diabetes Association. Diabetes Care. 2016.39(Suppl 1). LAB [...] actual GFR. Performed By: #### CMP #### [place] [address] [place], [place] [address] TACROLIMUS / [id number] Collected: 09/24/2017 Status: F Source: [place] 1:10 PM [facility] REPOSITORY TYPE CODE TESTS RESULT OUT [...] Test performed by chemiluminescent immunoassay using [employer]. Performed By: #### FK506 #### [facility] [address] [place], [place] [address] CNCO Observed: 09/24/2017 Status: COMPLETED Source: [place] 12:00 AM [facility] REPOSITORY Letter Text September 24, 2017 Val Valverde [id number] [address] [place] [facility] [address] Dear Ms. Valverde, In the event you are not able to come to your appointment, please contact us to cancel so that we can accommodate other patients who are waiting to be seen by our specialists. The following options are available to assist you with cancelling your appointment: You may notify the [facility] Call Center at [phone]. You may notify your provider's office directly. You may view the details of your upcoming appointments using [employer] on your computer or mobile device. Appointments can be confirmed or cancelled within [employer]. Patients can enroll to receive a text message reminder the day before their appointment. Here's what you need to know: Enroll by simply texting 4clinictext to [phone]. Your cell phone number must be registered with a [facility] Appointment Range Operator. To confirm, please call [phone]. Patients can opt in or out at any time. You must be 18 years or older to receive the text reminder Sincerely, [facility] Department of Gastroenterology AND Hepatology PROGRESS Observed: 09/16/2017 Status: COMPLETED Source: [place] 10:23 AM [facility] REPOSITORY HNO ID: [id number] Author: Asia Mendoza ([place]) Service: (none) Author Type: Physician Size Worker Type: Progress Notes Filed: 09/18/2017 11:12 AM Note Text: FOLLOW UP VISIT - POST OP NAME: Val Valverde [facility] NO.: [id number] DATE OF SERVICE: 09/08/2017 : 1970 REFERRING PHYSICIAN: Wil To is a patient I am following with [...] the past-reviewed importance of regular follow-up with REGIONAL ADMINISTRATIVE ASSISTANT. Would also recommend consideration for possible anoscopy to evaluate for lesions in the anal canal. Patient verbalized understanding of above and agreed with the plan. 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 Process Control Specialist: NELIA Transcribe Date/Time: Sep 15 2017 4:55P Dictated by : WOODY RAMON MD This examination was interpreted and the report reviewed and electronically signed by: WOODY RAMON MD on Sep 15 2017 4:56PM EST [id number] PROGRESS Observed: 09/15/2017 Status: COMPLETED Source: [place] 2:59 PM [facility] REPOSITORY HNO ID: [id number] Author: Deshawn Smith (Rt) Malina Delcid Service: (none) Author Type: Recruitment Internship Type: Progress Notes Filed: 09/15/2017 3:03 PM [...] + CBC Collected: 09/15/2017 Status: F Source: [place] 11:35 AM [facility] REPOSITORY TYPE CODE TESTS RESULT OUT OF REFERENCE UNITS RANGE LAB WWBC 3.70-11.00 k/uL [place] High WBC 11.63 LAB WRBC 3.90-5.20 m/uL [place] Low RBC 2.69 LAB WHGB 11.5-15.5 g/dL [place] Low Hemoglobin 9.6 LAB WHCT 36.0-46.0 % [place] Low Hematocrit 29.9 LAB WMCV 80.0-100.0 fL [place] MCV Result checked and verified LAB WMCH 26.0-34.0 pg [place] High MCH 35.7 LAB WMCHC 30.5-36.0 g/dL [place] MCHC 32.1 LAB WRDW 11.5-15.0 % [place] High RDW 18.5 LAB WPLT 150-400 k/uL [place] Platelet Cnt 161 LAB WMPV 9.0-12.7 fL [place] MPV 10.9 Result Comment: Test performed at: [facility] [place], [address] [place] [address]. LAB ABGRAN 1.45-7.50 k/uL High Absol 8.97 Gran Count IRON AND TIBC Collected: 09/15/2017 Status: F Source: [place] 11:35 AM [facility] REPOSITORY TYPE CODE TESTS RESULT OUT OF REFERENCE UNITS RANGE LAB IRN 41-186 ug/dL Iron 78 LAB TIBC 232-386 ug/dL Low TIBC 215 LAB SAT 15-57 % Transferrin Saturatn 36 Performed By: #### IRON, FERR #### [place] [address] [place] [address] FERRITIN Collected: 09/15/2017 Status: F Source: [place] 11:35 AM [facility] REPOSITORY TYPE CODE TESTS RESULT OUT OF REFERENCE UNITS RANGE LAB FERR 14.7-205.1 ng/mL High Ferritin 1220.0 Performed By: #### IRON, FERR #### [place] [address] IRON AND TIBC Collected: 09/08/2017 Status: F Source: [place] 11:07 AM [facility] REPOSITORY TYPE CODE TESTS RESULT OUT OF REFERENCE UNITS RANGE LAB IRN 41-186 ug/dL Iron 69 LAB TIBC 232-386 ug/dL Low TIBC 211 LAB SAT 15-57 % Transferrin Saturatn 33 Performed By: #### IRON, FERR #### [place] [address] FERRITIN Collected: 09/08/2017 Status: F Source: [place] 11:07 AM [facility] REPOSITORY TYPE CODE TESTS RESULT OUT OF REFERENCE UNITS RANGE LAB FERR 14.7-205.1 ng/mL High Ferritin 1282.0 Performed By: #### IRON, FERR #### [place] [phone] KESHA ABS GR + CBC Collected: 09/08/2017 Status: F Source: [place] 11:06 AM [facility] REPOSITORY TYPE CODE TESTS RESULT OUT OF REFERENCE UNITS RANGE LAB WWBC 3.70-11.00 k/uL Kesha High WBC 13.60 LAB WRBC 3.90-5.20 m/uL Low Kesha RBC 2.63 LAB WHGB 11.5-15.5 g/dL Low [place] Hemoglobin 9.2 LAB WHCT 36.0-46.0 % Low Kesha Hematocrit 29.3 LAB WMCV 80.0-100.0 fL Kesha High MCV 111.4 Result Comment: Result checked and verified LAB WMCH 26.0-34.0 pg High [place] MCH 35.0 LAB WMCHC 30.5-36.0 g/dL [place] MCHC 31.4 LAB WRDW 11.5-15.0 % High Kesha RDW 19.1 LAB WPLT 150-400 k/uL [place] 173 Platelet Cnt LAB WMPV 9.0-12.7 fL Kesha MPV 10.2 Result Comment: Test performed at: [facility] [place], [address] [place] [address]. LAB ABGRAN 1.45-7.50 k/uL High Absol 10.68 Gran Count CNOV Observed: 09/08/2017 Status: COMPLETED Source: [place] 10:45 AM [facility] REPOSITORY Office Visit (GENSWS) VAL VALVERDE ([id number]) 1970 F TRN Date Time Provider Department 09/08/17 10:45 AM ASIA MENDOZA (PA) During your visit today, we recorded the following information about you: Pulse Blood pressure Weight 66/minute 160/90 36.3 kg Asia Mendoza PA-C 09/18/2017 11:12 AM Signed FOLLOW UP VISIT - POST OP NAME: Val Deangelo Abram [facility] NO.: [id number] DATE OF SERVICE: 09/08/2017 : 1970 REFERRING PHYSICIAN: Wil To is a patient I am following with [...] the past-reviewed importance of regular follow-up with REGIONAL ADMINISTRATIVE ASSISTANT. Would also recommend consideration for possible anoscopy [...] results had gone to incorrect provider in [facility] causing delay in receiving/reviewing results. PROCEDURE(S) CISH HPV LOW RISK ? Date Ordered: ?10/14/2017 ? ? ? Date Reported: ?10/16/2017 Procedure Results and Interpretation At request of the clinician, chromogenic in situ hybridization (CISH) studies for high risk HPV were obtained on case [id number]. The results of HPV CISH testing are negative for high risk HPV. Clinical correlation is recommended. Reviewed with Dr. Baldwin, per Dr. Baldwin no additional surgical surveillance required based on these results. Discussed with patient, who is instructed to follow up with us if she notes any new concerns or recurrent lesions. Patient verbalized understanding. Referring Provider: VANI BALDWIN [[id number]] Allergies As of Date: 09/08/2017 Noted Allergy [...] 1 capsule by mouth once * X KINLTO-OPDOVSKR-NNDYXHF 12,00* Take 1 capsule by mouth three* [...] ulcer disease with hemorrhage [K27.4] INVALID FOR*12/30/2016 Djcxa-hi-ygwoddp kidney injury (HCC) [N17.9, N1*INVALID FOR*12/30/2016 More... [...] + CBC Collected: 09/01/2017 Status: F Source: [place] 4:11 PM [facility] REPOSITORY TYPE CODE TESTS RESULT OUT OF REFERENCE UNITS RANGE LAB WWBC 3.70-11.00 k/uL [place] High WBC 13.11 LAB WRBC 3.90-5.20 m/uL Low [place] RBC 2.75 LAB WHGB 11.5-15.5 g/dL Low K[place] Hemoglobin 9.7 LAB WHCT 36.0-46.0 % Low [place]ha Hematocrit 31.0 LAB WMCV 80.0-100.0 fL [place] High MCV 112.7 LAB WMCH 26.0-34.0 pg Kesha High MCH 35.3 LAB WMCHC 30.5-36.0 g/dL [place] MCHC 31.3 LAB WRDW 11.5-15.0 % [place] High RDW 18.7 LAB WPLT 150-400 k/uL Kesha Platelet Cnt 211 LAB WMPV 9.0-12.7 fL [place] MPV 10.2 Result Comment: Test performed at: [address] [place] [address]. LAB ABGRAN 1.45-7.50 k/uL High Absol 11.79 Gran Count IRON AND TIBC Collected: 09/01/2017 Status: F Source: [place] 4:11 PM [facility] REPOSITORY TYPE CODE TESTS RESULT OUT OF REFERENCE UNITS RANGE LAB IRN 41-186 ug/dL Iron 71 LAB TIBC 232-386 ug/dL TIBC 243 LAB SAT 15-57 % Transferrin Saturatn 29 Performed By: #### IRON, FERR #### [place] [address], [place] [address] FERRITIN Collected: 09/01/2017 Status: F Source: [place] 4:11 PM [facility] REPOSITORY TYPE CODE TESTS RESULT OUT OF REFERENCE UNITS RANGE LAB FERR 14.7-205.1 ng/mL High Ferritin 712.5 Performed By: #### IRON, FERR #### [facility] [employer] [address], [place] [address] PROCEDURE Observed: 08/31/2017 Status: COMPLETED Source: [place] 12:32 PM [facility] REPOSITORY HNO ID: [id number] Author: Vani Baldwin Service: (none) Author Type: [...] well. PROGRESS Observed: 08/31/2017 Status: COMPLETED Source: [place] 12:30 PM [facility] HNO ID: [id number] Author: Vani Baldwin Service: (none) Author Type: Physician Type: Progress Notes Filed: 08/31/2017 12:36 PM Note Text: Patient here for excision of skin lesions of anal tissue. Tolerated well Follow up next week for wound check and discussion of results. CNOV Observed: 08/29/2017 Status: COMPLETED Source: [place] 1:00 PM [facility] REPOSITORY Office Visit (GENSWS) VAL VALVERDE ([id number]) 1970 F TRN Date Time Provider Department [...] to your office visit today with the [facility] General Surgeons. Instructions After SKIN [...] you should contact our office immediately @ [phone] and ask to be transferred to the [...] the procedure well. Referring Provider: KERI ADAME ([facility]) [[id number]] Allergies As of Date: 08/29/2017 Noted Allergy Reaction SULFA (SULFONAMIDE ANTIBIOTICS) 04/07/2001 4 - Hives Comments: hives NSAIDS (NON-STEROIDAL ANTI-INFLAM*04/23/2016 5 - Intolerance Date Reviewed: 08/29/2017 Reviewed by: Keri Briseno RN - Fully Assessed Reason for Visit: Procedure [88] Visit Diagnoses:Skin lesion [L98.9] Anal lesion [K62.9] Order(s):SURGICAL PATHOLOGY [4804703] Order #: [id number] Prescriptions as of 08/29/2017 Sig: POLYSACCHARIDE IRON [...] Take 1 capsule by mouth once * GIGGBJ-UIDRKTFP-HRMNYUC 12,00* Take 1 capsule by mouth three* [...] ulcer disease with hemorrhage [K27.4] INVALID FOR*12/30/2016 Sdjtg-sv-gvsfumt kidney injury (HCC) [N17.9, N1*INVALID FOR*12/30/2016 More... [...] to your office visit today with the [facility] General Surgeons. Instructions After SKIN [...] you should contact our office immediately @ [phone] and ask to be transferred to the General Surgery department. Encounter Status:Closed by MD VANI BALDWIN on 08/31/17 PROGRESS Observed: 08/29/2017 Status: COMPLETED Source: [place] 12:56 PM [facility] REPOSITORY HNO ID: [id number] Author: Keri Briseno RN Service: (none) Author [...] SURGICAL PATHOLOGY Observed: 08/29/2017 Status: F Source: [place] 12:00 AM [facility] REPOSITORY Specimen originated from [facility] Specimen #: [id number] Submitting Physician: VANI BALDWIN MD FINAL DIAGNOSIS [...] in three cassettes. Gross examination performed at [facility], [address] [place] [address] 08/29/2017 11:39:52 PM Date of Report: 09/01/2017 Date of Procedure: 08/29/2017 Date of Receipt: 08/29/2017 Submitted by: VANI BALDWIN MD Location: [facility] A3 Diagnostic interpretation performed at [facility], [address] [place] [address]. PROGRESS Observed: 08/27/2017 Status: COMPLETED Source: [place] 4:00 PM [facility] REPOSITORY HNO ID: [id number] Author: Alex Tian Service: (none) Author Type: Physician Type: Progress Notes Filed: 08/28/2017 8:55 AM Note Text: PATIENT NAME: Val Valverde. CLINIC NO: [id number]. ATTENDING PHYSICIAN: Alex Tian MD. DATE OF SERVICE: 08/27/2017 ?? DIAGNOSIS: Anemia of chronic disease secondary stage IV renal failure; status post partial gastrectomy for gastric cancer History of renal transplant. ?? HPI: This is a 46-year-old woman from [facility] who was adopted into a family in the [facility] at 1-1/2 years of age. In 2000, [...] 18 eGFR-All Other Races . 15 WBC, [place] 3.70 - 11.00 k/uL 12.39 (H) RBC, [place] 3.90 - 5.20 m/uL 2.72 (L) Hemoglobin, Kesha 11.5 - 15.5 g/dL 9.4 (L) Hematocrit, Kesha 36.0 - 46.0 % 29.9 (L) MCV, [place] 80.0 - 100.0 fL 109.9 (H) MCH, [place] 26.0 - 34.0 pg 34.6 (H) MCHC, [place] 30.5 - 36.0 g/dL 31.4 RDW, [place] 11.5 - 15.0 % 18.3 (H) Platelet Cnt, Kesha 150 - 400 k/uL 232 MPV, [place] 9.0 - 12.7 fL 10.5 Absol Gran [...] MD CNOVSP Observed: 08/27/2017 Status: COMPLETED Source: [place] 3:20 PM [facility] REPOSITORY Visit (SP) Office (BREANNA) VAL VALVERDE ([id number]) 1970 F TRN Date Time Provider Department [...] 08/28/2017 8:55 AM Signed PATIENT NAME: Val Valverde. CLINIC NO: [id number]. ATTENDING PHYSICIAN: Alex Tian MD. DATE OF SERVICE: 08/27/2017 ?? DIAGNOSIS: Anemia of chronic disease secondary stage IV renal failure; status post partial gastrectomy for gastric cancer History of renal transplant. ?? HPI: This is a 46-year-old woman from [facility] who was adopted into a family in the [facility] at 1-1/2 years of age. In 2000, [...] 3.90 - 5.20 m/uL 2.72 (L) Hemoglobin, [place] 11.5 - 15.5 g/dL 9.4 (L) Hematocrit, [place] 36.0 - 46.0 % 29.9 (L) MCV, [place] 80.0 - 100.0 fL 109.9 (H) MCH, [place] 26.0 - 34.0 pg 34.6 (H) MCHC, [place] 30.5 - 36.0 g/dL 31.4 RDW, Kesha 11.5 - 15.0 % 18.3 (H) Platelet Cnt, [place] 150 - 400 k/uL 232 MPV, [place] 9.0 - 12.7 fL 10.5 Absol Gran [...] Alex Tian MD Referring Provider: ALEX TIAN [[id number]] Allergies As of Date: 08/27/2017 Noted Allergy [...] of Service: EST PATIENT VISIT LEVEL 4 [13206] Disposition: Return in about 6 months (around [...] Take 1 capsule by mouth once * WSXGFE-EVOJCKWE-YVRTDIL 12,00* Take 1 capsule by mouth three* [...] ulcer disease with hemorrhage [K27.4] INVALID FOR*12/30/2016 Sdrsm-lw-cmxtpyr kidney injury (HCC) [N17.9, N1*INVALID FOR*12/30/2016 More... [...] + CBC Collected: 08/25/2017 Status: F Source: [place] 11:10 AM [facility] REPOSITORY TYPE CODE TESTS RESULT OUT OF REFERENCE UNITS RANGE LAB WWBC 3.70-11.00 k/uL Kesha High WBC 12.39 LAB WRBC 3.90-5.20 m/uL Low Kesha RBC 2.72 LAB WHGB 11.5-15.5 g/dL Low [place] Hemoglobin 9.4 LAB WHCT 36.0-46.0 % Low Eksha Hematocrit 29.9 LAB WMCV 80.0-100.0 fL [place] High MCV 109.9 LAB WMCH 26.0-34.0 pg Kesha High MCH 34.6 LAB WMCHC 30.5-36.0 g/dL [place] MCHC 31.4 LAB WRDW 11.5-15.0 % [place] High RDW 18.3 LAB WPLT 150-400 k/uL [place] Platelet Cnt 232 LAB WMPV 9.0-12.7 fL Kesha MPV 10.5 Result Comment: Test performed at: [facility], [address] [place] [address] Rd[address] [place] [address]. LAB ABGRAN 1.45-7.50 k/uL High Absol 9.12 Gran Count COMP METABOLIC PANEL Collected: 08/25/2017 Status: F Source: [place] 11:10 AM [facility] REPOSITORY TYPE CODE TESTS RESULT OUT [...] mg/dL Glucose High 101 Result Comment: The [place] Diabetes Association (ADA) provides guidance for cutoff [...] Standards of Medical Care in Diabetes 2016, [place] Diabetes Association. Diabetes Care. 2016.39(Suppl 1). LAB [...] accurately reflect actual GFR. Performed By: #### LUCIANA, BKQUISAIAH #### [facility] [employer] [address], [place] [address] BK VIRUS PCR,QUANT,P Collected: 08/25/2017 Status: F Source: [place] 11:10 AM [facility] REPOSITORY TYPE CODE TESTS RESULT OUT OF REFERENCE UNITS RANGE LAB BKVDNA copies/mL BK Negative for Virus DNA BK virus DNA QN PCR by PCR Result Comment: Reference Range: Negative for BK virus DNA The Linear Range of this assay is 500 copies/mL to 5,000,000 copies/mL. This test was developed and its performance characteristics determined by [facility]'s [facility] [place] ([facility]). It has not been cleared or approved by the FDA. [facility] is regulated under CLIA as qualified to perform high-complexity testing. This test is used for clinical purposes. It should not be regarded as investigational or for research. Performed By: #### CMP, BKQUAN #### [place] [id number] [place] [address] TACROLIMUS / [id number] Collected: 08/25/2017 Status: F Source: [place] 11:10 AM [facility] REPOSITORY TYPE CODE TESTS RESULT OUT [...] situation. Test performed by chemiluminescent immunoassay using Digital Orchid. Performed By: #### FK506 #### [place] [address] RETICULOCYTE Collected: 08/20/2017 Status: F Source: [place] 3:48 PM [facility] REPOSITORY TYPE CODE TESTS RESULT OUT OF REFERENCE UNITS RANGE LAB RETC 0.4-2.0 % High Retic% 3.5 LAB ABRET 0.0180-0.1000 M/uL Abs Retic 0.098 Performed By: #### RETIC, IRON, FERR #### [place] [address] IRON AND TIBC Collected: 08/20/2017 Status: F Source: [place] 3:48 PM [facility] REPOSITORY TYPE CODE TESTS RESULT OUT OF REFERENCE UNITS RANGE LAB IRN 41-186 ug/dL Low [place] 40 LAB TIBC 232-386 ug/dL Low TIBC 212 LAB SAT 15-57 % Transferrin Saturatn 19 Performed By: #### RETIC, IRON, FERR #### [place] [address] FERRITIN Collected: 08/20/2017 Status: F Source: [place] 3:48 PM [facility] REPOSITORY TYPE CODE TESTS RESULT OUT OF REFERENCE UNITS RANGE LAB FERR 14.7-205.1 ng/mL High Ferritin 878.4 Performed By: #### RETIC, IRON, FERR #### [facility] [address] [place] [address] BD DXA - FOREARM Observed: 08/18/2017 Status: F Source: [place] 12:06 PM [facility] REPOSITORY * * *Final Report* * * DATE OF EXAM: Aug 18 2017 12:06PM [facility] 0870 - BD DXA - FOREARM SKELETON [...] Osteoporosis Less than or equal to -2.5 Process Control Specialist: PSCLaura Transcribe Date/Time: Aug 19 2017 1:44P Dictated by : JULIAN BUSTAMANTE MD This examination was interpreted and the report reviewed and electronically signed by: JULIAN BUSTAMANTE MD on Aug 19 2017 1:45PM EST [id number] BD VFA WITH DXA - Observed: 08/18/2017 Status: F Source: [place] AXIAL [place] 12:06 PM [facility] REPOSITORY * * *Final Report* * * DATE OF EXAM: Aug 18 2017 12:06PM [facility] 0802 - BD VFA WITH DXA - [...] Osteoporosis Less than or equal to -2.5 Process Control [facility] Transcribe Date/Time: Aug 25 2017 1:40P Dictated by : JULIAN BUSTAMANTE MD This examination was interpreted and the report reviewed and electronically signed by: JULIAN BUSTAMANTE MD on Aug 25 2017 1:42PM EST [id number] PROGRESS Observed: 08/18/2017 Status: COMPLETED Source: [place] 11:36 AM [facility] REPOSITORY HNO ID: [id number] Author: Katiana Goncalves Service: (none) Author Type: (none) Type: Progress Notes Filed: 08/18/2017 12:05 PM Note Text: Val Valverde August 18, 2017 [id number] Double identification: Patient identified by name and Bone Density Completed. Katiana Norman Rt patient told of radiation jk 11:30 am not PROGRESS Observed: 08/11/2017 Status: COMPLETED Source: [place] 8:45 PM [facility] REPOSITORY HNO ID: [id number] Author: Vani Baldwin Service: (none) Author Type: Physician Type: Progress Notes Filed: 08/12/2017 7:12 PM Note Text: Val Valverde 1970 REFERRING PHYSICIAN: Keri Adame ([facility]), AUG* CHIEF COMPLAINT: New Patient (hemorrhoids) HPI: The [...] week. 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[employer] Social History Main Topics Smoking status: Former [...] History Narrative , no children Works at [employer], [employer] FAMILY HISTORY Problem Relation Age [...] Renal transplant, status post (D89.9) Immunosuppression (HCC) MD KESHA Brito ABS GR + CBC Collected: 08/11/2017 Status: F Source: [place] 2:49 PM [facility] REPOSITORY TYPE CODE TESTS RESULT OUT OF REFERENCE UNITS RANGE LAB WWBC 3.70-11.00 k/uL [place] High WBC 11.19 LAB WRBC 3.90-5.20 m/uL Low [place]ha RBC 2.55 LAB WHGB 11.5-15.5 g/dL Low [place] Hemoglobin 8.9 LAB WHCT 36.0-46.0 % Low [place] Hematocrit 27.7 LAB WMCV 80.0-100.0 fL [place]ha High MCV 108.6 LAB WMCH 26.0-34.0 pg [place] High MCH 34.9 LAB WMCHC 30.5-36.0 g/dL [place] MCHC 32.1 LAB WRDW 11.5-15.0 % [place] High RDW 17.7 LAB WPLT 150-400 k/uL [place] Platelet Cnt 296 LAB WMPV 9.0-12.7 fL Kesha MPV 10.1 Result Comment: Test performed at: [address], [place] [address]. LAB ABGRAN 1.45-7.50 k/uL High Absol 10.16 Gran Count VITAMIN B12 Collected: 08/11/2017 Status: F Source: [place] 2:48 PM [facility] REPOSITORY TYPE CODE TESTS RESULT OUT OF REFERENCE UNITS RANGE LAB B12 232-1245 pg/mL High Vitamin B12 >2000 Performed By: #### B12 #### [facility] [address] [place], [place] [address] CNOV Observed: 08/11/2017 Status: COMPLETED Source: [place] 1:30 PM [facility] REPOSITORY Office Visit (ODALYSS) VAL VALVERDE ([id number]) 1970 F TRN Date Time Provider Department 08/11/17 1:30 PM BALDWIN, VANI ERIC GENSWS During your visit today, we recorded the [...] Val Valverde 1970 REFERRING PHYSICIAN: Keri Adame ([facility]), APR* CHIEF COMPLAINT: New Patient (hemorrhoids) HPI: [...] week. 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[employer] Social History Main Topics Smoking status: Former [...] History Narrative , no children Works at [employer], [employer] FAMILY HISTORY Problem Relation Age [...] post (D89.9) Immunosuppression (HCC) Vani Baldwin MD Referring Provider: KERI ADAME ([facility]) [[id number]] Allergies As of Date: 08/11/2017 Noted Allergy Reaction SULFA (SULFONAMIDE ANTIBIOTICS) 04/07/2001 4 - Hives Comments: hives NSAIDS (NON-STEROIDAL ANTI-INFLAM*04/23/2016 5 - Intolerance Date Reviewed: 08/11/2017 Reviewed by: Vani Baldwin - Fully Assessed Reason for Visit: New Patient [172] Cmt: hemmorhoids Primary Visit Diagnosis:Anal lesion [K62.9] Other Visit Diagnoses:Onset of sedative, 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 [...] INVALID FOR*07/14/2017 More... Visit Notes: >> Joana Esposito OPAL Mon Aug 11, 2017 1:46 PM Status: [...] may have had one with Dr. Nadir Esposito LPN Prescriptions ordered this encounter Disp Refills [...] 08/12/17 PROGRESS Observed: 08/07/2017 Status: COMPLETED Source: [place] 12:00 AM [facility] REPOSITORY O ID: [id number] Author: Andrey Barajas Service: Abstract Author Type: Physician Type: Progress Notes Filed: 08/07/2017 9:28 AM Note Text: [facility] NOTE NAME: VAL VALVERDE [facility] NO.: [id number] DATE OF SERVICE: 08/07/2017 SUBJECTIVE: This is [...] consultation the next time she is at [facility]. We will also plan on repeat EGD in 3 to 4 months. Sincerely, DICTATED BY: Luca Alexandre/Sumit JOB# [id number] [facility] Observed: 08/06/2017 Status: COMPLETED Source: [place] 12:00 AM [facility] REPOSITORY Telephone (GASTMN) VAL VALVERDE ([id number]) 1970 F TRN Date Time Provider Department 08/06/17 JAVIER BEAN (SLEEPING CAR PORTER) GASTMN During your visit today, we recorded [...] Fully Assessed Reason for Visit: Medication Question [8748] Order(s):esomeprazole (NEXIUM) 40 mg capsuleTake 1 capsule [...] Take 1 capsule by mouth once * JYHJNW-MTGHRPOV-QCXJIVK 12,00* Take 1 capsule by mouth three* [...] 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 [...] 08/06/17 PROGRESS Observed: 07/31/2017 Status: COMPLETED Source: [place] 2:02 PM [facility] [place] REPOSITORY HNO ID: [id number] Author: Bryan Graham (Mechanic Assistant) Hanane Service: (none) Author Type: Nurse Practitioner [...] stomach stomach cancer - Malnutrition (HCC) - [facility] - PAST MEDICAL HISTORY OF 2001 Blood [...] of sepsis and hypotension Did not require HEARING DOG TRAINER TAC and MMF in view of critical [...] Lymph 1.00 - 4.00 k/uL 0.43 (L) [place]% % 5.[address] [place] <0.87 k/uL 0.47 Eosin% % 0.9 Abs Eosin <0.46 k/uL 0.08 Baso% % 0.1 Abs Baso <0.11 k/uL <0.03 [place]% % Anisocytosis Polychromasia RBC Fragments Target Cells [...] 15 16 13 17 15 14 WBC, [place] 3.70 - 11.00 k/uL 10.09 RBC, [place] 3.90 - 5.20 m/uL 2.40 (L) Hemoglobin, [place] 11.5 - 15.5 g/dL 8.5 (L) Hematocrit, [place] 36.0 - 46.0 % 26.5 (L) MCV, [place] 80.0 - 100.0 fL 110.4 (H) MCH, [place] 26.0 - 34.0 pg 35.4 (H) MCHC, [place] 30.5 - 36.0 g/dL 32.1 RDW, [place] 11.5 - 15.0 % 18.2 (H) Platelet Cnt, [place] 150 - 400 k/uL 132 (L) MPV, [...] Pressure-acceptable on current rx -Anemia-on RICKY at [place], hgb 8.5 Chronic thrombocytopenia PLAN: Reduce FK [...] be in the office Bryan Koo RN BIODIESEL ENGINEERING MANAGER I spent 35 minutes in the visit, with more than 50% of the total wvyi-fm-umte time of the visit in counseling / coordination of care. URINALYSIS Collected: 07/31/2017 Status: F Source: [place] 2:01 PM [facility]AMP[facility] REPOSITORY TYPE CODE TESTS RESULT OUT OF RANGE REFERENCE UNITS LAB UCOL Yellow Color Yellow LAB [facility] Clear Clarity Clear LAB UGLUC Negative mg/dL Glucose, Urine Negative LAB UBIL Negative Bilirubin, Urine Negative LAB UKET Negative Ketones, Urine Negative LAB USPG 1.005-1.030 Specific [place], Ur 1.010 LAB UHGB Negative Hemoglobin/Blood, Negative Ur LAB UPH 4.5-8.0 pH 5.5 LAB UPROT Negative mg/dL Protein, Abnormal Urine 30 Alert LAB UUROB Normal Urobilinogen Normal LAB UNITR Negative Nitrites Negative LAB ULKEST Negative Leukest Negative LAB UCOM Comments SEE COMMENT Result Comment: Microscopic not warranted LAB UMCOM Urine SEE Louie Comment COMMENT Result Comment: N/A Performed By: #### UA #### [facility] [address] [place], [place] [address] CNOV Observed: 07/31/2017 Status: COMPLETED Source: [place] 1:30 PM [facility] REPOSITORY Office Visit (NEPHMN) VAL VALVERDE ([id number]) 1970 F TRN Date Time Provider Department 07/31/17 1:30 PM BRYAN KOO (BIODIESEL ENGINEERING MANAGER) NEPHMN During your visit today, we recorded the following information about you: Temperature Pulse Blood pressure Weight 97.6 degrees 99/minute 125/91 33.4 kg Height 1.499 m Bryan Koo RN CNP 07/31/2017 5:59 PM Signed Patient presents for renal tx follow up care As above,Val Valverde is a 46?year old female who presents for follow up of renal transplant. DIANARD from adoptive mother kidney transplant. ? Date [...] of sepsis and hypotension Did not require HEARING DOG TRAINER TAC and MMF in view of critical [...] Ref Rng ANDamp; Units 07/10/2017 07/11/2017 07/12/2017 07/13/2017 07/14/2017 07/28/2017 [...] Lymph 1.00 - 4.00 k/uL 0.43 (L) [place]% % 5.[address] [place] ANDlt;0.87 k/uL 0.47 Eosin% % 0.9 Abs Eosin ANDlt;0.46 k/uL 0.08 Baso% % 0.1 Abs Baso ANDlt;0.11 k/uL ANDlt;0.03 [place]% % Anisocytosis Polychromasia RBC Fragments Target Cells [...] 15 16 13 17 15 14 WBC, [place] 3.70 - 11.00 k/uL 10.09 RBC, [place] 3.90 - 5.20 m/uL 2.40 (L) Hemoglobin, [place] 11.5 - 15.5 g/dL 8.5 (L) Hematocrit, [place] 36.0 - 46.0 % 26.5 (L) MCV, [place] 80.0 - 100.0 fL 110.4 (H) MCH, [place]esha 26.0 - 34.0 pg 35.4 (H) MCHC, [place] 30.5 - 36.0 g/dL 32.1 RDW, [place] 11.5 - 15.0 % 18.2 (H) Platelet Cnt, Kesha 150 - 400 k/uL 132 (L) MPV, [place] 9.0 - 12.7 fL 10.4 Absol Gran [...] Pressure-acceptable on current rx -Anemia-on RICKY at [facility], hgb 8.5 Chronic thrombocytopenia PLAN: Reduce FK [...] be in the office Bryan Koo RN BIODIESEL ENGINEERING MANAGER I spent 35 minutes in the visit, with more than 50% of the total wwer-tb-cfdm time of the visit in counseling / [...] [Z94.0] Order(s):UA CHEMSTRIP ONLY [SQUA] Order #: [id number] FUTURE UA CHEMSTRIP ONLY [SQUA] Order #: [id number]. 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 [...] + CBC Collected: 07/28/2017 Status: F Source: [place] 11:10 AM [facility] REPOSITORY TYPE CODE TESTS RESULT OUT OF REFERENCE UNITS RANGE LAB WWBC 3.70-11.00 k/uL [place] WBC 10.09 LAB WRBC 3.90-5.20 m/uL Low [place] RBC 2.40 LAB WHGB 11.5-15.5 g/dL Low [place] Hemoglobin 8.5 LAB WHCT 36.0-46.0 % Low [place] Hematocrit 26.5 LAB WMCV 80.0-100.0 fL [place] High MCV 110.4 Result Comment: Result rechecked. LAB WMCH 26.0-34.0 pg High [place] MCH 35.4 LAB WMCHC 30.5-36.0 g/dL [place] MCHC 32.1 LAB WRDW 11.5-15.0 % High [place] RDW 18.2 LAB WPLT 150-400 k/uL Low [place] 132 Platelet Cnt LAB WMPV 9.0-12.7 fL [place] MPV 10.4 Result Comment: Test performed at: [address] [place] [address]. LAB ABGRAN 1.45-7.50 k/uL Absol Gran 7.46 Count Result Comment: Reviewed Performed By: #### WAGCBC #### [facility] [address] [place], [place] [address] COMP METABOLIC PANEL Collected: 07/28/2017 Status: F Source: [place] 11:10 AM [facility] REPOSITORY TYPE CODE TESTS RESULT OUT OF REFERENCE UNITS RANGE LAB TP 6.3-8.0 g/dL Protein, Total 6.3 LAB ALB 3.9-4.9 g/dL Low Albumin 2.8 LAB CA 8.5-10.2 mg/dL Low Calcium, Total 7.8 LAB TBIL 0.2-1.3 mg/dL Bilirubin, Total 0.2 LAB ALKP 32-117 U/L Alkaline Phosphatase 86 LAB AST 13-35 U/L AST 24 LAB GLU 74-99 mg/dL Glucose High 142 Result Comment: The [place] Diabetes Association (ADA) provides guidance for cutoff [...] Standards of Medical Care in Diabetes 2016, [place] Diabetes Association. Diabetes Care. 2016.39(Suppl 1). LAB [...] actual GFR. Performed By: #### CMP #### [place] [address] [address] TACROLIMUS / [id number] Collected: 07/28/2017 Status: F Source: [place] 11:10 AM [facility] REPOSITORY TYPE CODE TESTS RESULT OUT [...] Test performed by chemiluminescent immunoassay using Solares Battery Hand. Performed By: #### FK506 #### [facility] [employer] [address] [place], [place] [address] CNCO Observed: 07/25/2017 Status: COMPLETED Source: [place] 12:04 PM [facility] REPOSITORY HNO ID: [id number] Author: Mammography Coordinator Service: (none) Author Type: Physician Type: Letter Filed: 07/28/2017 11:33 PM Note Text: July 25, 2017 PID: [id number] Val DeangeloVineet Valverde [facility] [place] [address] Dear Ms. Valverde, We are pleased to [...] report will be kept on file at [facility] as part of your permanent medical record and are available for your continuing care. Thank you for allowing us to help in meeting your health care needs. Sincerely, Dr. Torres Interpreting Radiologist [facility] (Normal over 40) [place] SCREENING Observed: 07/25/2017 Status: F Source: [place] 10:23 AM [facility] REPOSITORY * * *Final Report* * * DATE OF EXAM: Jul 25 2017 10:23AM ZENON 0581 - [facility] SCREENING / PROCEDURE REASON: Encounter for screening mammogram for malignant neoplasm of breast * * * * Physician Interpretation * * * * RESULT: #[id number] - [place] SCREENING BILATERAL DIGITAL SCREENING MAMMOGRAM WITH CAD: [...] mammogram, 11/29/2013 mammogram, and 11/11/2012 mammogram - [facility]. The tissue of both breasts is extremely dense, which lowers the sensitivity of mammography. No significant masses, calcifications, or other findings are seen in either breast. There has been no significant interval change. IMPRESSION: NEGATIVE There is no mammographic evidence of malignancy. A 1 year screening mammogram is recommended. Radha Torres M.D., ch/natalie:07/25/2017 12:04:21 [employer] Floorperson: Ana PEREZ)(Celeste), [facility] letter sent: Normal over 40 Mammogram BI-RADS: 1 Negative Process Control Specialist: Natalie Transcribe Date/Time: Jul 25 2017 10:27A Dictated by: RADHA TORRES MD This examination was interpreted and the report reviewed and electronically signed by: RADHA TORRES MD on Jul 25 2017 12:04PM EST [id number] CNOV Observed: 07/25/2017 Status: COMPLETED Source: [place] 9:30 AM [facility] REPOSITORY Office Visit (WOOB) VAL VALVERDE ([id number]) 1970 F TRN Date Time Provider Department 07/25/17 9:30 AM KERI ADAME (DAYANNA) WOOB During your visit today, we recorded the following information about you: Blood pressure Weight Height 112/60 31.8 kg 1.494 m KERI ADAME CNP 07/25/2017 9:56 AM Signed Val Deangelo Valverde is a 46 year old who [...] external genitalia normal, normal Bartholin's glands, urethra, Homeland's glands, no vulvar lesions, no cervical lesions, [...] [K64.9] Encounter for screening for 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 [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.820] 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] Order(s):DXA-AXIAL SKELETON [8667528] Order #: [id number] FUTURE CONSULT TO GENERAL SURGERY [9060] Order #: [id number]: 1 Prescriptions as of 07/25/2017 Sig: ALBUTEROL SULFATE HFA 90 MCG/* 2 Puffs every 4 hours as need* AMLODIPINE 2.5 MG TABLET Take 1 tablet by mouth once d* PREDNISONE 5 MG TABLET Take 1 tablet by mouth once d* CHOLECALCIFEROL (VITAMIN D3) * Take 1 capsule by mouth once * ZFHYHE-HMKSCUBK-ZZVFYFL 12,00* Take 1 capsule by mouth three* [...] ulcer disease with hemorrhage [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 [...] 07/25/17 PROGRESS Observed: 07/25/2017 Status: COMPLETED Source: [place] 9:03 AM [facility] REPOSITORY HNO ID: [id number] Author: Keri Adame Service: (none) Author Type: [...] [facility]raception: IUD, inserted 12/2012 HPV vaccine: No [...] external genitalia normal, normal Bartholin's glands, urethra, Homeland's glands, no vulvar lesions, no cervical lesions, [...] CNP CYTOLOGY Observed: 07/23/2017 Status: F Source: [place] 4:18 PM [facility] REPOSITORY Specimen originated from [facility] Specimen #: [id number] Submitting Physician: ANDREY BARAJAS MD SPECIMEN SUBMITTED [...] NEEDLE ASPIRATE(THINPREP AND CELL BLOCK) THIN PREP Non-Prefitter, CELL BLOCK, H&E, Initial Date of Report: 07/24/2017 Date of Procedure: 07/23/2017 Date of Receipt: 07/23/2017 Submitted by: ANDREY BARAJAS MD Location: [place] [address] Diagnostic interpretation performed at [facility], [address] [place] [address]. SURGICAL PATHOLOGY Observed: 07/22/2017 Status: F Source: [place] 11:40 AM [facility] REPOSITORY Specimen originated from [facility] Specimen #: [id number] Submitting Physician: ANDREY BARAJAS MD FINAL DIAGNOSIS [...] in one cassette. Gross examination performed at [facility], [address] [place] [address] 07/22/2017 6:52:19 PM Date of Report: 07/24/2017 Date of Procedure: 07/22/2017 Date of Receipt: 07/22/2017 Submitted by: ANDREY BARAJAS MD Location: [facility] A3 Diagnostic interpretation performed at [facility], [address] [place] [address]. PROGRESS Observed: 07/21/2017 Status: COMPLETED Source: [place] 11:08 AM [facility] REPOSITORY HNO ID: [id number] Author: Duy (Dayanna) Wilber Service: (none) Author Type: Nurse Practitioner Type: Progress Notes Filed: 07/21/2017 12:13 PM Note Text: CC: Patient presents with: Recheck: Hosp follow up, pneumonia, Flu and septsis HPI Val Valverde is a 46 year old female who presents today with ddmzrx-nd-wha for follow up from hospital admission 07/03 to 07/14/17. Patient initially presented to the [facility] ER with complaints of chest pain and SOB. Chest Xray revealed bilateral infiltrates and elevated lactate 2.0. Patient was admitted to the ICU until transfer to [facility]. Patient transferred on 07/04/17 for pneumonia, flu [...] week. (ONE CAPSULE) FOR VITAMIN D DEFICIENCY jynkis-neduabvx-samqysz (CREON) 12,000-38,000 -60,000 unit cpDR Take 1 [...] CNP CNOV Observed: 07/21/2017 Status: COMPLETED Source: [place] 11:00 AM [facility] REPOSITORY Office Visit (INTMWS) VLA VALVERDE ([id number]) 1970 F TRN Date Time Provider Department 07/21/17 11:00 AM DUY DUMAS (DAYANNA) INTMWS During your visit today, we recorded the following information about you: Temperature Pulse Respiration Blood pressure 99 degrees 116/minute 16/minute 130/84 Weight 31.8 kg Duy Dumas CNP 07/21/2017 12:13 PM Signed CC: Patient presents with: Recheck: Hosp follow up, pneumonia, Flu and septsis HPI Valeren Valverde is a 46 year old female who presents today with mbppxl-ry-hqn for follow up from hospital admission 07/03 to 07/14/17. Patient initially presented to the [facility] ER with complaints of chest pain and SOB. Chest Xray revealed bilateral infiltrates and elevated lactate 2.0. Patient was admitted to the ICU until transfer to [facility]. Patient transferred on 07/04/17 for pneumonia, flu [...] week. (ONE CAPSULE) FOR VITAMIN D DEFICIENCY vrgymz-xwxbyzax-croxagc (CREON) 12,000-38,000 -60,000 unit cpDR Take 1 [...] Hemorrhoids, unspecified hemorrhoid type [K64.9] Order(s):AEROCHAMBER SPACER [5293416] Order #: [id number] albuterol HFA (PROAIR HFA) 90 mcg/actuation inhaler2 Puffs every 4 hours as needed for Wheezing/Shortness of Breath. 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 [...] NURSING PROG Observed: 07/14/2017 Status: COMPLETED Source: [place] 3:07 PM [facility] REPOSITORY HNO ID: [id number] Author: Vicky Welsh) DICK Araya Service: (none) Author Type: Registered Nurse Type: Nursing Progress Note Filed: 07/14/2017 4:19 PM Note Text: Nursing Progress Note Patient Name: Val Valverde Patient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 CMP, MG1, PHOS, FERR, CBCDIF #### [place] [address] CBC AND DIFFERENTIAL Collected: 07/08/2017 Status: F Source: [place] 10:[address] [place] [address] REPOSITORY TYPE CODE TESTS RESULT OUT OF [...] Abs Lymph 0.27 Low LAB AMONO % [facility]% 2.6 LAB AAMONO <0.87 k/uL Abs [facility] 0.27 LAB AEOS % Eosin% 0.0 LAB AAEOS <0.46 k/uL Abs Eosin 0.00 LAB ABASO % Baso% 0.0 LAB AABASO <0.11 k/uL Abs Baso 0.00 LAB AMETA % [place]% 0.9 LAB ANIIMI Anisocytosis Present LAB POLIMI Polychromasia Slight LAB RCFIMI RBC Fragments Few LAB TARIMI Target Cells Few LAB PLTEST Platelet Estimate Platelet estimate decreased LAB DTYP DTYPE Manual Diff Performed By: #### CMP, MG1, PHOS, FERR, CBCDIF #### [facility] [address] [place] [id number] PROCEDURE Observed: 07/08/2017 Status: COMPLETED Source: [place] 4:15 PM [facility] REPOSITORY HNO ID: [id number] Author: Tiana Smith (Rn) DICK Bowling Service: [...] CONSULT PROG Observed: 07/08/2017 Status: COMPLETED Source: [place] 1:03 PM [facility] REPOSITORY HNO ID: [id number] Author: Krystal Amador (Pharmacist) Service: Pharmacy Author [...] care. Please contact pharmacy if questions. Krystal Amador PharmD (Critical Care Pharmacist) [phone] IRON AND TIBC Collected: 07/08/2017 Status: F Source: [place] 10:00 AM [facility] REPOSITORY TYPE CODE TESTS RESULT OUT OF REFERENCE UNITS RANGE LAB IRN 41-186 ug/dL Low Iron 21 LAB TIBC 232-386 ug/dL Low TIBC 84 LAB SAT 15-57 % Transferrin Saturatn 25 Performed By: #### IRON #### [facility] [address] [place], [place] [address] CONSULT PROG Observed: 07/08/2017 Status: COMPLETED Source: [place] 8:41 AM [facility] REPOSITORY HNO ID: [id number] Author: Andrey Hernandez Service: Nephrology Author Type: [...] Speedy Andre MD, PGY4, Nephrology Fellow Pager [phone] July 08, 2017 8:41 AM I have seen and evaluated the patient. I have reviewed the History, Exam, and Plan as documented by the resident/fellow. The following reflect my findings: agree fully with findings and plan. Extubated, on 2L n/c. Making urine, scr lower. Cont expectant mgmt off IS except pred. Andrey Hernandez MD PROGRESS Observed: 07/08/2017 Status: COMPLETED Source: [place] 7:53 AM [facility] REPOSITORY HNO ID: [id number] Author: Amy Purcell MD Service: Critical Care [...] mother) 02/21/10 now with CKD CMV -/+. BLOCKER AND POLISHER IS: Cellcept, Prednisone and Prograf. Plan: Holding [...] Creon 12 tiD JENNIFFER (acute kidney injury) ([facility]) 07/05/2017 - Present Overview JENNIFFER on CKD [...] Renal dose medications Respiratory failure with hypoxia ([facility]) 07/05/2017 - Present Overview Patient has new [...] 08, 2017 TIME: 7:53 AM PAGER/CONTACT #: [phone] [facility] [place] STAFF PHYSICIAN NOTE OF PERSONAL INVOLVEMENT IN [...] feeding SIGNATURE: Amy Purcell MD [facility] PAGER:[phone] DATE of SERVICE: July 08, 2017 TIME of SERVICE: 1:43 PM CITRATED PLT COUNT Collected: 07/08/2017 Status: F Source: [place] 6:46 AM [facility] REPOSITORY TYPE CODE TESTS RESULT OUT OF REFERENCE UNITS RANGE LAB PLTCIT 150-400 K/uL Low Citrated Plt 22 Count Result Comment: Result checked and verified No clot detected. Reviewed Sodium Citrate Sample. Performed By: #### CITPLT, STREV #### [facility] [address] [place] [address] STAFF REV W CBCDIF Collected: 07/08/2017 Status: F Source: [place] 6:46 AM [facility] REPOSITORY TYPE CODE TESTS RESULT OUT [...] Abs Lymph Low 0.16 LAB AMONO % [facility] [facility]% 2.0 LAB AAMONO <0.87 k/uL Abs [facility] 0.32 LAB AEOS % Eosin% 1.0 LAB [...] Pathologist Reviewed by Julian Kelly M.D., Ph.D ([id number]) Performed By: #### CITPLT, STREV #### [facility] [address] [place] [address] NURSING PROG Observed: 07/08/2017 Status: COMPLETED Source: [place] 4:00 AM [facility] REPOSITORY HNO ID: [id number] Author: Lynnette (Rn) DICK Mc Service: (none) Author Type: Registered Nurse Type: Nursing Progress Note Filed: 07/08/2017 4:03 AM Note Text: Nursing Progress: Topic: RESTRAINT NON-VIOLENT PATIENT NAME: Val Valverde PATIENT LOCATION: [place] [address] The patient demonstrates Attempting to Remove Medical [...] RN VANCOMYCIN Collected: 07/07/2017 Status: F Source: [place] 11:43 PM [facility] REPOSITORY TYPE CODE TESTS RESULT OUT OF REFERENCE UNITS RANGE LAB VANCRA 5.0-20.0 ug/mL High Vancomycin 25.6 Result Comment: Reference ranges and high/low indicator flags are provided as general guidelines only. The treating physician must determine appropriate target levels/dosing based on the specific clinical situation. Performed By: #### VANCRA, CMP, MG1, PHOS, LD6, CBCDIF #### [facility] [address] [place] [id number] COMP METABOLIC PANEL Collected: 07/07/2017 Status: F Source: [place] 11:43 PM [facility] REPOSITORY TYPE CODE TESTS RESULT OUT [...] 74-99 mg/dL Glucose 87 Result Comment: The [place] Diabetes Association (ADA) provides guidance for cutoff [...] Standards of Medical Care in Diabetes 2016, [place] [employer]. Diabetes Care. 2016.39(Suppl 1). LAB [...] accurately reflect actual GFR. Performed By: #### DEVI, CMP, MG1, PHOS, LD6, CBCDIF #### [facility] [employer] [address] [place] [address] MAGNESIUM Collected: 07/07/2017 Status: F Source: [place] 11:43 PM [facility] REPOSITORY TYPE CODE TESTS RESULT OUT OF REFERENCE UNITS RANGE LAB MG 1.7-2.3 mg/dL Magnesium 2.2 Performed By: #### DEVI, CMP, MG1, PHOS, LD6, CBCDIF #### [facility] [address] [place] [address] PHOSPHORUS Collected: 07/07/2017 Status: F Source: [place] 11:43 PM [facility] REPOSITORY TYPE CODE TESTS RESULT OUT OF REFERENCE UNITS RANGE LAB PHOS 2.7-4.8 mg/dL Phosphorus 4.0 Performed By: #### VANCRA, CMP, MG1, PHOS, LD6, CBCDIF #### [facility] [employer] [address] [place] [address] LD Collected: 07/07/2017 Status: F Source: [facility] 11:43 PM MAIN CAMPUS REPOSITORY TYPE CODE TESTS RESULT OUT OF RANGE REFERENCE UNITS LAB LD 135-214 U/L High LD 345 Performed By: #### DEVI, CMP, MG1, PHOS, LD6, CBCDIF #### [facility] [address] [place], [place] [address] CBC AND DIFFERENTIAL Collected: 07/07/2017 Status: F Source: [place] 11:43 PM [facility] REPOSITORY TYPE CODE TESTS RESULT [...] Abs Lymph 0.41 Low LAB AMONO % [facility]% 0.9 LAB AAMONO <0.87 k/uL Abs [facility] 0.14 LAB AEOS % Eosin% 0.0 LAB AAEOS <0.46 k/uL Abs Eosin 0.00 LAB ABASO % Baso% 0.0 LAB AABASO <0.11 k/uL Abs Baso 0.00 LAB ANIIMI Anisocytosis Present LAB RCFIMI RBC Fragments Few LAB PLTEST Platelet Estimate Platelet estimate decreased LAB DTYP DTYPE Manual Diff Performed By: #### DEVI, CMP, MG1, PHOS, LD6, CBCDIF #### [facility] [address] [place], [place] [address] XR ABDOMEN 1V SUPINE Observed: 07/07/2017 Status: F Source: [place] 8:17 PM [facility] REPOSITORY * * *Final Report* * * [...] view: Lower pelvis is excluded from the carwn-yq-tnxi. Lines and tubes: Nasogastric tube tip lies in the left upper abdomen adjacent to suture material, likely within the residual gastric body just proximal to the GJ junction. Small amount of enteric contrast within the gastric body. Bowel: Small bowel loops are normal caliber with no wall thickening. Other: Pelvic surgical clips present. Process Control Specialist: PSCB Transcribe Date/Time: Jul 07 2017 11:51P Dictated by : CORTNEY BRYAN MD This examination was interpreted and the report reviewed and electronically signed by: CORTNEY BRYAN MD on Jul 07 2017 11:55PM EST [id number] Collected: 07/07/2017 Status: F Source: [place] 4:22 PM [facility] REPOSITORY TYPE CODE TESTS RESULT OUT OF REFERENCE UNITS RANGE LAB FIBCT 200-400 mg/dL High Fibrinogen 704 Result Comment: Sample checked for a clot. Performed By: #### FIBCT, HAPTO, PLATF4 #### [facility] [employer] [address] [place], [place] [address] HAPTOGLOBIN Collected: 07/07/2017 Status: F Source: [place] 4:22 PM [facility] REPOSITORY TYPE CODE TESTS RESULT OUT OF REFERENCE UNITS RANGE LAB HAPTO 31-238 mg/dL Haptoglobin 175 Performed By: #### FIBCT, HAPTO, PLATF4 #### [facility] [employer] [address] [place], [place] [id number] ANTI PLT FACTOR 4 Collected: 07/07/2017 Status: F Source: [place] 4:22 PM [facility] [place] REPOSITORY TYPE CODE TESTS RESULT OUT OF [...] Performed By: #### FIBCT, HAPTO, PLATF4 #### [facility] [employer] [address] [place], [place] [address] URINALYSIS WITH Collected: 07/07/2017 Status: F Source: [facility] 3:07 PM [facility] REPOSITORY TYPE CODE TESTS RESULT OUT OF RANGE REFERENCE UNITS LAB UCOL Yellow Color Yellow LAB [facility] Clear Clarity Clear LAB UGLUC Negative mg/dL Glucose, Urine Negative LAB UBIL Negative Bilirubin, Urine Negative LAB UKET Negative Ketones, Urine Negative LAB USPG 1.005-1.030 Specific [place], Ur 1.005 LAB UHGB Negative Abnormal Hemoglobin/Blood, [...] RBC 0-3 Performed By: #### UAWMIC #### [facility] [address] [place], [place] [address] CONSULT PROG Observed: 07/07/2017 Status: COMPLETED Source: [place] 1:59 PM [facility] REPOSITORY HNO ID: [id number] Author: Christiano Ryan (Pharmacist) Service: Pharmacy Author [...] please contact Christiano Ryan PharmD at pager [phone]. Age: [age] year old Allergies: ALLERGIES Allergen [...] Cason PROGRESS Observed: 07/07/2017 Status: COMPLETED Source: [place] 1:15 PM [facility] REPOSITORY HNO ID: [id number] Author: Amy Purcell MD Service: Critical Care [...] mother) 02/21/10 now with CKD CMV -/+. BLOCKER AND POLISHER IS: Cellcept, Prednisone and Prograf. Plan: Holding [...] dose medications = Respiratory failure with hypoxia (HCC) 07/05/2017 - [...] 07, 2017 TIME: 1:15 PM PAGER/CONTACT #: [phone] [facility] [place] STAFF PHYSICIAN NOTE OF PERSONAL INVOLVEMENT IN [...] minutes. SIGNATURE: Amy Purcell MD [facility] PAGER:[phone] DATE of SERVICE: July 07, 2017 TIME of SERVICE: 2:05 PM 12 LEAD ELECTROCARDIOGRAM Observed: 07/07/2017 Status: F Source: [place] 1:00 PM [facility] REPOSITORY [facility] [address] [place] [address] 12 Lead EKG 07/03/17 1211 MR#: [id number] Acct: [id number] Name: VAL VALVERDE Rep #: [id number] : 1970 46 From: Humberto Fraser MD Attending Dr: Dionte Hutchison DO Status: DIS IN Ordering Dr: Osei Wade MD Date: 07/03/17 Location: [facility] Sex: F A Admitted: 07/03/17 Test Reason : SOB Blood Pressure : / mmHG Vent. Rate : 091 BPM Atrial Rate : 091 BPM P-R Int : 124 ms QRS Dur : 080 ms QT Int : 408 ms P-R-T Axes : 054 070 057 degrees QTc Int : 501 ms Normal sinus rhythm Prolonged QT Abnormal ECG Confirmed by BRADY CASTRO, HUMBERTO ([id number]), photograph editor HUANG BRENNAN ([id number]) on 07/07/2017 12:59:58 PM Referred By: JESSIE Confirmed By:HUMBERTO FRASER MD 07/07/17 1300 Date Humberto Fraser MD CC: Wil To MD; Osei Wade MD Signed CONSULT PROG Observed: 07/07/2017 Status: COMPLETED Source: [place] 11:16 AM [facility] REPOSITORY O ID: [id number] Author: Andrey Mary Service: Nephrology Author Type: Physician Type: Consult [...] imaging results. Most recent labs Recent Labs 07/06/17225707/06/175 07/05/17 0403 07/04/17 2347 NA 136 134* [...] Speedy Andre MD, PGY4, Nephrology Fellow Pager [phone] July 07, 2017 2:43 PM I have [...] / [id number] Collected: 07/07/2017 Status: F Source: [place] 10:47 AM [facility] REPOSITORY TYPE CODE TESTS RESULT OUT [...] Test performed by chemiluminescent immunoassay using Solares Battery Hand. Performed By: #### FK506 #### [facility] [address], [place] [address] CASE MGT INIT Observed: 07/07/2017 Status: COMPLETED Source: [place] ZARA 9:50 AM [facility] REPOSITORY HNO ID: [id number] Author: Bryant (Rn) DICK Blackburn Service: Care Management Author Type: Registered Nurse Type: Care Mgt Initial Assessment Filed: 07/07/2017 2:02 PM Note Text: CARE MANAGEMENT: ASSESSMENT AND DISCHARGE PLAN SERVICE DATE: 07/07/2017 SERVICE TIME: 9:50 AM PRIMARY CARE PHYSICIAN: WIL TO MD ADMISSION STATUS: Inpatient POTENTIAL DISCHARGE PLANS Home Home Care [facility] Long Term Facility/Intermediate Care Facility To Be Determined 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 No [...] 07, 2017 TIME: 9:50 AM PAGER/CONTACT #: [phone] ALLIED HEALTH Observed: 07/07/2017 Status: COMPLETED Source: [place] 7:55 AM [facility] REPOSITORY HNO ID: [id number] Author: Rhonda BoggsRn) DICK Cagle Service: Infection Prevention Author Type: Registered Nurse [...] SIGNATURE: Rhonda Cagle RN MSN PATIENT NAME: aVl Valverde DATE: July 07, 2017 TIME: 7:56 AM PAGER/CONTACT #: [phone] Infection Prevention after hours/weekend pager: [phone] NURSING PROG Observed: 07/07/2017 Status: COMPLETED Source: [place] 4:00 AM [facility] REPOSITORY HNO ID: [id number] Author: Marilou BoggsRn) DICK Weiss Service: Nursing Author Type: Registered Nurse Type: Nursing Progress Note Filed: 07/07/2017 4:18 AM Note Text: Nursing Progress: Topic: RESTRAINT NON-VIOLENT PATIENT NAME: Val Valverde PATIENT LOCATION: [place] [address]/[place] [address] The patient demonstrates Attempting to Remove Medical [...] METABOLIC PANEL Collected: 07/06/2017 Status: F Source: [place] 10:58 PM [facility] REPOSITORY TYPE CODE [...] mg/dL Glucose High 178 Result Comment: The [place] Diabetes Association (ADA) provides guidance for cutoff [...] Standards of Medical Care in Diabetes 2016, [place] Diabetes Association. Diabetes Care. 2016.39(Suppl 1). LAB [...] CMP, MG1, PHOS, TRIG, VANCRA, CBCDIF #### [facility] [address] [place] [address] MAGNESIUM Collected: 07/06/2017 Status: F Source: [place] 10:58 PM [facility] REPOSITORY TYPE CODE TESTS RESULT OUT OF REFERENCE UNITS RANGE LAB MG 1.7-2.3 mg/dL Magnesium 2.3 Performed By: #### CMP, MG1, PHOS, TRIG, VANCRA, CBCDIF #### [facility] [employer] [address] [place] [address] PHOSPHORUS Collected: 07/06/2017 Status: F Source: [place] 10:58 PM [facility] REPOSITORY TYPE CODE TESTS RESULT OUT OF REFERENCE UNITS RANGE LAB PHOS 2.7-4.8 mg/dL Phosphorus 4.0 Performed By: #### CMP, MG1, PHOS, TRIG, VANCRA, CBCDIF #### [facility] [employer] [address] [place] [address] TRIGLYCERIDE Collected: 07/06/2017 Status: F Source: [place] 10:58 PM [facility] REPOSITORY TYPE CODE TESTS RESULT OUT OF REFERENCE UNITS RANGE LAB TRIGLY <150 mg/dL Triglyceride High 157 Result Comment: <150 mg/dL, Normal 150-199 mg/dL, Borderline high 200-499 mg/dL, High >499 mg/dL, Very high Reference: 1. National Cholesterol Education Program ATP III Guideline At-A-Glance Quick Desk Reference: National Heart, Lung, and Blood [place]. National Institutes of Health. 2001: NIH Publication No. 01-3305. LAB FT hrs Fasting Unknown Time Performed By: #### CMP, MG1, PHOS, TRIG, VANCRA, CBCDIF #### [facility] [employer] [address] [place], [place] [address] VANCOMYCIN Collected: 07/06/2017 Status: F Source: [place] 10:58 PM [facility] REPOSITORY TYPE CODE TESTS RESULT OUT OF REFERENCE UNITS RANGE LAB VANCRA 5.0-20.0 ug/mL High Vancomycin 31.7 Result Comment: Reference ranges and high/low indicator flags are provided as general guidelines only. The treating physician must determine appropriate target levels/dosing based on the specific clinical situation. Performed By: #### CMP, MG1, PHOS, TRIG, VANCRA, CBCDIF #### [facility] [employer] [address], [place] [address] CBC AND DIFFERENTIAL Collected: 07/06/2017 Status: F Source: [place] 10:58 PM [facility] REPOSITORY TYPE CODE TESTS RESULT OUT [...] Abs Lymph 0.11 Low LAB AMONO % [facility]% 0.9 LAB AAMONO <0.87 k/uL Abs [facility] 0.11 LAB AEOS % Eosin% 0.0 LAB [...] CMP, MG1, PHOS, TRIG, VANCRA, CBCDIF #### [facility] [address] [place], [place] [address] [place] KIDNEY TRANSPLANT Observed: 07/06/2017 Status: F Source: [place] 4:03 PM [facility] REPOSITORY * * *Final Report* * * DATE OF EXAM: Jul 06 2017 4:03PM [address] KIDNEY TRANSPLANT / PROCEDURE REASON: JENNIFFER (acute [...] VASCULATURE. NO HYDRONEPHROSIS OR PERINEPHRIC FLUID COLLECTION. Process Control Specialist: PSCB Transcribe Date/Time: Jul 06 2017 4:54P Dictated by : EDISON ELDER MD This examination was interpreted and the report reviewed and electronically signed by: KAT PAYTON MD on Jul 06 2017 5:24PM EST [id number] NUTRITION Observed: 07/06/2017 Status: COMPLETED Source: [place] 1:38 PM [facility] REPOSITORY HNO ID: [id number] Author: Elizabeth Baumann Service: NST-Nutrition Support Team [...] Initial Assess/15 min 4 units SIGNATURE: Elizabeth Baumann RD PATIENT NAME: Val Valvedre DATE: July 06, 2017 TIME: 1:38 PM PAGER: [phone] Observed: 07/06/2017 Status: F Source: [place] RESPIRATORY CULT/STAIN 12:56 PM [facility] [place] REPOSITORY Sp. Request/Comment: - SCORED BY Smear Result - Rare Yeast --> ABNORMAL ALERT Many Polymorphonuclear leukocytes Moderate Mononuclear cells Culture Result - Rare Staphylococcus aureus --> ABNORMAL ALERT Insignificant colony count. No further workup. --> ABNORMAL ALERT Rare Normal respiratory conner present Performed By: #### RCULST #### [place] [address] [place] [id number] M. PNEUMONIAE PCR Collected: 07/06/2017 Status: F Source: [place] 12:56 PM [facility] REPOSITORY TYPE CODE TESTS RESULT OUT [...] PCR Test developed and characteristics determined by [facility]. See Compliance Statement B: [employer]/ Performed by [facility], [address] [place] [id number] www.[email or web address], Jeff Cabral MD, Lab. Director Performed By: #### MYCPCR #### [facility] [employer] [address] [place] [address] [phone] [place] [id number] CMV DNA QUANT BY Collected: 07/06/2017 Status: F Source: [place] PCR 10:30 AM [facility] REPOSITORY TYPE CODE TESTS RESULT OUT OF REFERENCE UNITS RANGE LAB CMVIU IU/mL CMV CMV DNA not DNA (IU/mL) detected by PCR. Result Comment: Linear Range 137 - 9,100,000 IU/mL (2.14 - 6.96 log IU/mL) Reference Range: Negative for CMV DNA Performed By: #### CMVQNT #### [place] [id number] [place] [id number] CONSULT Observed: 07/06/2017 Status: COMPLETED Source: [place] 9:47 AM [facility] REPOSITORY HNO ID: [id number] Author: Andrey Hernandez Service: Nephrology Author Type: [...] ulceration Recurrent GI bleeding She presented from [facility] with fever, chest pain and shortness of [...] capsule Rfl: 1 Unknown at Unknown time rijica-nmrvcozo-txrmzrk (CREON) 12,000-38,000 -60,000 unit cpDR Take 1 [...] tab(s) (NORVASC) 2.5 mg ORAL/FEEDING TUBE DAILY ttodbn-dvyvgoee-zhygogy 10,440-39,150- 39,150 unit 1 tablet (VIOKACE) 1 [...] Speedy Andre MD, PGY4, Nephrology Fellow Pager [phone] July 05, 2017 10:05 PM [facility] [place] STAFF PHYSICIAN NOTE OF PERSONAL INVOLVEMENT IN [...] ARDS physiology probably best to keep on chip drier side. Obligate volume intake will likely [...] as above SIGNATURE: Andrey Hernandez MD PAGER: [phone] DATE of SERVICE: July 06, 2017 TIME of SERVICE: 9:46 AM XR CHEST 1V FRONTAL Observed: 07/06/2017 Status: F Source: [facility] 9:39 AM [facility] REPOSITORY * * *Final Report* * * DATE OF EXAM: Jul 06 2017 9:39AM KISHAN [id number] - XR CHEST 1V FRONTAL PORT / PROCEDURE REASON: ARDS (adult respiratory distress syndrome) (HCC) * * * * Physician Interpretation * * * * CHEST RADIOGRAPH (PORTABLE SINGLE VIEW AP) Exam Date/Time: 07/06/2017 9:39 AM Indications: ARDS (adult respiratory distress syndrome) (HCC) M: XCP_3 Comparison: 1 day earlier RESULTS: See Impression. IMPRESSION: Lines, Tubes, and Devices: ET tube mid trachea, nasogastric tube over stomach. Lungs and Pleura: Bilateral interstitial lung opacities, small effusions and overlying atelectasis or pneumonia similar to prior. No pneumothorax. Cardiomediastinal silhouette: Stable cardiac silhouette. Process Control Specialist: PSCB Transcribe Date/Time: Jul 06 2017 3:41P Dictated by : CHRISTIANO BURRELL MD This examination was interpreted and the report reviewed and electronically signed by: CHRISTIANO BURRELL MD on Jul 06 2017 3:42PM EST [id number] NURSING PROG Observed: 07/06/2017 Status: COMPLETED Source: [place] 9:10 AM [facility] REPOSITORY HNO ID: [id number] Author: María Elena (Rn) DICK Contreras Service: (none) Author Type: Registered Nurse Type: Nursing Progress Note Filed: 07/06/2017 2:45 PM Note Text: Nursing Progress: Topic: RESTRAINT NON-VIOLENT PATIENT NAME: Val Valverde PATIENT LOCATION: [place] [address] The patient demonstrates Attempting to Remove Medical [...] RN PROGRESS Observed: 07/06/2017 Status: COMPLETED Source: [place] 7:00 AM [facility] REPOSITORY HNO ID: [id number] Author: Jefry Martinez Service: Critical Care Author Type: Resident Type: Progress Notes Filed: 07/06/2017 10:05 AM Note Text: Attestation signed by Alejo Olvera at 07/06/2017 3:18 PM [facility] [place] STAFF PHYSICIAN NOTE OF PERSONAL INVOLVEMENT IN [...] minutes. SIGNATURE: Alejo Olvera MD [facility] PAGER:[phone] DATE of SERVICE: 07/06/2017 TIME of SERVICE: [...] mother) 02/21/10 now with CKD CMV -/+. BLOCKER AND POLISHER IS: Cellcept, Prednisone and Prograf. Plan: Holding [...] within last 24 hours? Yes Signature: Jefry Michelle PGY-3 IM pager: [phone] July 06, 2017 9:29 AM [facility] / [id number] Collected: 07/06/2017 Status: F Source: [place] 4:48 AM [facility] REPOSITORY TYPE CODE TESTS RESULT OUT [...] Test performed by chemiluminescent immunoassay using [employer] Hand. Performed By: #### FK506 #### [facility] [employer] [address] [place] [address] MAGNESIUM Collected: 07/06/2017 Status: F Source: [place] 1:05 AM [facility] REPOSITORY TYPE CODE TESTS RESULT OUT OF REFERENCE UNITS RANGE LAB MG 1.7-2.3 mg/dL Magnesium 2.1 Performed By: #### MG1, PHOS, CMP, CBCDIF #### [facility] [employer] [address] [place] [address] PHOSPHORUS Collected: 07/06/2017 Status: F Source: [place] 1:05 AM [facility] REPOSITORY TYPE CODE TESTS RESULT OUT OF REFERENCE UNITS RANGE LAB PHOS 2.7-4.8 mg/dL Phosphorus 4.8 Performed By: #### MG1, PHOS, CMP, CBCDIF #### [place] [address] [place] [address] COMP METABOLIC PANEL Collected: 07/06/2017 Status: F Source: [place] 1:05 AM [facility] REPOSITORY TYPE CODE [...] 74-99 mg/dL Glucose 78 Result Comment: The [place] Diabetes Association (ADA) provides guidance for cutoff [...] Standards of Medical Care in Diabetes 2016, [place] Diabetes Association. Diabetes Care. 2016.39(Suppl 1). LAB [...] By: #### MG1, PHOS, CMP, CBCDIF #### [facility] [employer] [address], [place] [address] CBC AND DIFFERENTIAL Collected: 07/06/2017 Status: F Source: [place] 1:05 AM [facility] REPOSITORY TYPE CODE TESTS RESULT OUT [...] Abs Lymph 0.12 Low LAB AMONO % [facility]% 0.9 LAB AAMONO <0.87 k/uL Abs [facility] 0.12 LAB AEOS % Eosin% 0.0 LAB AAEOS <0.46 k/uL Abs Eosin 0.00 LAB ABASO % Baso% 0.0 LAB AABASO <0.11 k/uL Abs Baso 0.00 LAB ANIIMI Anisocytosis Present LAB OVAIMI Ovalocytes Few LAB POLIMI Polychromasia Slight LAB PLTEST Platelet Estimate Platelet estimate decreased LAB DTYP DTYPE Manual Diff Performed By: #### MG1, PHOS, CMP, CBCDIF #### [facility] [employer] [address], [place] [address] GASA + ALL Collected: 07/05/2017 Status: F Source: [place] FOR 9:41 PM [facility] RADIANCE USE ONLY REPOSITORY TYPE CODE TESTS [...] Lactate 0.6 Performed By: #### ALLBG #### [facility] [employer] [address] [place], [place] [address] CREATININE,URINE,RAN Collected: Status: F Source: [place] 07/05/2017 6:30 PM [facility] REPOSITORY TYPE CODE TESTS RESULT OUT OF RANGE REFERENCE UNITS LAB UCRR 20-300 mg/dL 30.4 Creatinine,U rine,Ran Performed By: #### UCRR, UNAR, LEGUAG #### [facility] [employer] [address], [place] [address] SODIUM,URINE,RANDOM Collected: Status: F Source: [place] 07/05/2017 6:30 PM [facility] REPOSITORY TYPE CODE TESTS RESULT OUT OF RANGE REFERENCE UNITS LAB UNAR 14-216 mmol/L 20 Sodium,Urine ,Random Performed By: #### TC MACKAY LEGUAG #### [facility] [employer] [address] [place], [place] [address] LEGIONELLA URINE AG Collected: 07/05/2017 Status: F Source: [place] 6:30 PM [facility] REPOSITORY TYPE CODE TESTS RESULT OUT OF REFERENCE UNITS RANGE LAB LEGUAG Negative Legionella Urine Negative Ag Result Comment: Negative for L. pneumophila serogroup 1 antigen in urine, suggesting no recent or current infection. Legionnaires disease cannot be ruled out since other serogroups and species may also cause disease. Performed By: #### TC MACKAY LEGUAG #### [place] [address], [place] [id number] GASA + ALL Collected: 07/05/2017 Status: F Source: [facility] 4:33 PM [facility] RADIANCE USE ONLY REPOSITORY TYPE CODE TESTS [...] Comment: 60% Performed By: #### ALLBG #### [facility] [address] [place], [place] [address] NURSING PROG Observed: 07/05/2017 Status: COMPLETED Source: [place] 4:00 PM [facility] REPOSITORY HNO ID: [id number] Author: Opal (Rn) DICK Wakefield Service: (none) Author Type: Registered Nurse Type: Nursing Progress Note Filed: 07/05/2017 4:48 PM Note Text: Nursing Progress: Topic: RESTRAINT NON-VIOLENT PATIENT NAME: Val Valverde PATIENT LOCATION: [place] [address] The patient demonstrates Attempting to Remove Medical [...] 1V FRONTAL Observed: 07/05/2017 Status: F Source: [facility] 2:27 PM [facility] REPOSITORY * * *Final Report* * * [...] Multiple surgical clips in the upper abdomen. Process Control Specialist: NELIA Transcribe Date/Time: Jul 05 2017 3:12P Dictated by : DEBBY FRY MD This examination was interpreted and the report reviewed and electronically signed by: DEBBY FRY MD on Jul 05 2017 3:13PM EST [id number] PROCEDURE Observed: 07/05/2017 Status: COMPLETED Source: [place] 2:15 PM [facility] REPOSITORY O ID: [id number] Author: Mee Linares (Fel) Service: Critical Care Author Type: Fellow Type: Procedures Filed: 07/05/2017 2:21 PM Note Text: Attestation signed by Alejo Olvera at 07/05/2017 3:30 PM I was present and supervised from start to finish BEDSIDE PROCEDURE NOTE PROCEDURE DATE: July 05, 2017 PROCEDURE START TIME: 1:30 PM PRIMARY PROCEDURALIST: Mee Linares MD TANK CAR RECONDITIONER(S): None INFORMED CONSENT: Informed Consent obtained and [...] 05, 2017 TIME: 2:15 PM PAGER/CONTACT #: [phone] GASA + ALL Collected: 07/05/2017 Status: F Source: [place] FOR 1:33 PM [facility] USE ONLY REPOSITORY TYPE CODE TESTS RESULT [...] Time, Art Performed By: #### ALLBG #### [facility] [address] [place] [address] NURSING PROG Observed: 07/05/2017 Status: COMPLETED Source: [place] 1:30 PM [facility] [place] REPOSITORY HNO ID: [id number] Author: Erica (Rn) DICK [place] Service: (none) Author Type: Registered Nurse Type: Nursing Progress Note Filed: 07/05/2017 1:46 PM Note Text: Nursing Progress Note Patient Name: Val Valverde Patient Location: [id number]/[id number]: Preparing for intubation. 100% non-rebreather. HR [...] CONSULT PROG Observed: 07/05/2017 Status: COMPLETED Source: [place] 9:25 AM [facility] REPOSITORY [facility] ID: [id number] Author: Krystal Amador (Pharmacist) Service: Pharmacy Author [...] questions, please contact Krystal Amador (Pharmacist) at [phone]. Age: [age] year old Allergies: ALLERGIES Allergen [...] Date Value 02/20/2017 17.8 02/19/2017 13.8 Krystal Amador PharmD (Critical Care Pharmacist) [id number] PLAN OF CARE Observed: 07/05/2017 Status: COMPLETED Source: [place] 8:33 AM [facility] REPOSITORY [facility] ID: [id number] Author: Shari Mcdaniels Service: Critical Care Author Type: Resident Type: Plan of Care Filed: 07/05/2017 9:15 AM Note Text: Attestation signed by Alejo Olvera at 07/05/2017 2:12 PM [facility] [place] STAFF PHYSICIAN NOTE OF PERSONAL INVOLVEMENT IN [...] minutes. SIGNATURE: Alejo Olvera MD [facility] PAGER:[phone] DATE of SERVICE: 07/05/2017 TIME of SERVICE: 11 PM Plan of care Patient will be taken care of by the MICU monroe team Nozzle Cement Sprayer Helper: Shari Mcdaniels 46F PMHx gastric cancer s/p [...] Shari Mcdaniels MD PGY-1, Internal Medicine Pager [phone] July 05, 2017 8:53 AM [facility] PCR Collected: 07/05/2017 Status: F Source: [place] 6:15 AM [facility] REPOSITORY TYPE CODE TESTS RESULT OUT OF REFERENCE UNITS RANGE LAB SASRC Nasal S aureus Spec Source LAB MRSRES Negative for MRSA MRSA by PCR. PCR LAB SARES Negative for Staph Staphylococcus aureus PCR aureus by PCR. Performed By: #### SAPCR #### [facility] [address] [place], [place] [address] HISTORY PHYSICAL Observed: 07/05/2017 Status: COMPLETED Source: [place] 5:07 AM [facility] REPOSITORY HNO ID: [id number] Author: Domi Dasilva Service: Critical Care Author [...] injection and clipping. Today she presented from [facility] with fever, chest pain and shortness of [...] stomach stomach cancer - Malnutrition (HCC) - [facility] - PAST MEDICAL HISTORY OF 2001 Blood [...] capsule Rfl: 1 Unknown at Unknown time byyfkv-humvjqtb-aucoosz (CREON) 12,000-38,000 -60,000 unit cpDR Take 1 [...] Signs Temp: 36.6 ?C (97.9 ?F) (07/05/17 024) Pulse: 104 (07/05/17 0300) Resp: (!) 34 (07/05/17 0300) BP: 122/76 (07/05/17 0300) MAP Non Invasive (Mean Arterial Pressure): 94 (07/05/17 0300) SpO2: 96 % (07/05/17 0300) Pain Score: 6/10 (07/05/17 0300) Diet DIET NPO Infusion Medications Lines, Drains, [...] Hemodynamic Data: 07/05/17 0130 07/05/17 0200 07/05/17 0249 07/05/17 0300 BP: 122/76 Pulse: 106 104 Resp: (!) 42 (!) 34 Temp: 36.6 ?C (97.9 ?F) TempSrc: Axillary SpO2: 91% 91% 96% 96% Weight: 34.2 kg (75 lb 6.4 oz) Height: 149.9 cm (4' 11) Respiratory: Clear to auscultation O2 Therapy: Hi-Flow (07/05/17 0300) Supplemental Oxygen: Yes. FiO2 60% %FIO2 Min: [...] mother) 02/21/10 now with CKD CMV -/+. BLOCKER AND POLISHER IS: Cellcept, Prednisone and Prograf. Current Assessment [...] BPH - Consider Transplant nephrology consult. - Duonebs Current Assessment AND Plan Assessment: [...] is dyspneic, with rapid shallow breathing, ABG 7. PLAN: - Continue with target titration to SpO2 > 90% - Start Tamiflu for Influenza B treatments - Start IV azithromycin and Ceftriaxone for CAP - Contact and droplet precautions - Duo-Neb q4H PRN Plan of care discussed with: Patient, ICU Team, Case Mangement and RN SIGNATURE: Cori Isaac MD PATIENT NAME: Val Valverde DATE: July 05, 2017 TIME: 5:07 AM PAGER/CONTACT #: [phone] [facility] [place] STAFF PHYSICIAN NOTE OF PERSONAL INVOLVEMENT IN [...] minutes. SIGNATURE: Domi Dasilva MD [facility] PAGER:[phone] DATE of SERVICE: July 05, 2017 TIME of SERVICE: 7:54 AM COMP METABOLIC PANEL Collected: 07/05/2017 Status: F Source: [place] 4:03 AM [facility] [place] REPOSITORY TYPE CODE TESTS RESULT OUT OF [...] mg/dL Low Glucose 59 Result Comment: The [place] Diabetes Association (ADA) provides guidance for cutoff [...] Standards of Medical Care in Diabetes 2016, [place] [employer]. Diabetes Care. 2016.39(Suppl 1). LAB [...] By: #### CMP, MG1, PHOS, CBCDIF #### [facility] [employer] [address] [place] [address] MAGNESIUM Collected: 07/05/2017 Status: F Source: [place] 4:03 [facility] REPOSITORY TYPE CODE TESTS RESULT OUT OF REFERENCE UNITS RANGE LAB MG 1.7-2.3 mg/dL Magnesium 2.0 Performed By: #### CMP, MG1, PHOS, CBCDIF #### [place] [address] PHOSPHORUS Collected: 07/05/2017 Status: F Source: [place] 4:03 [facility] REPOSITORY TYPE CODE TESTS RESULT OUT OF REFERENCE UNITS RANGE LAB PHOS 2.7-4.8 mg/dL High Phosphorus 5.2 Performed By: #### CMP, MG1, PHOS, CBCDIF #### [place] [address] CBC AND DIFFERENTIAL Collected: 07/05/2017 Status: F Source: [place] 4:03 [facility] REPOSITORY TYPE CODE TESTS RESULT OUT OF [...] Abs Lymph Low 0.11 LAB AMONO % [facility]% 2.6 LAB AAMONO <0.87 k/uL Abs [facility] [place] 0.31 LAB AEOS % Eosin% 0.0 LAB AAEOS <0.46 k/uL Abs Eosin 0.00 LAB ABASO % Baso% 0.0 LAB AABASO <0.11 k/uL Abs Baso 0.00 LAB ANIIMI Anisocytosis Present LAB POLIMI Polychromasia Slight LAB PLTEST Platelet Estimate Platelet estimate decreased LAB DTYP DTYPE Manual Diff Performed By: #### CMP, MG1, PHOS, CBCDIF #### [place] [address] RAPID PCR FLU/RSV Collected: 07/05/2017 Status: F Source: [place] 1:10 AM [facility] REPOSITORY TYPE CODE TESTS RESULT OUT OF RANGE REFERENCE UNITS LAB AZRS Nasopharyngeal Specimen Swab Source LAB PCRFLA Negative for Influenza A Influenza A by RT PCR PCR LAB PCRFLB Positive for Abnormal Influenza B Influenza B by RT Alert PCR PCR LAB PCRRSV Negative for RSV PCR RSV by RT PCR Performed By: #### FLRSV, RVPPCR #### [place] [address] RESP VIR PNL BY Collected: 07/05/2017 Status: F Source: [place] PCR 1:10 AM [facility] REPOSITORY TYPE CODE TESTS RESULT OUT OF RANGE REFERENCE UNITS LAB RVPSRC Nasopharyngeal Resp Viral Swab Panl Srce LAB FLUARV Negative Respiratory Abnormal Influenza A Viral Panel not Alert Virus performed since pathogen was identified by FLRSV test. If further testing is required, please call [phone] Result Comment: Account Credited LAB FLUAH1 Negative Abnormal Respiratory Alert Influenza A H1 Viral Panel not Virus performed since pathogen was identified by FLRSV test. If further testing is required, please call [phone] Result Comment: Account Credited LAB FLUAH3 Negative Abnormal Respiratory Alert Influenza A H3 Viral Panel not Virus performed since pathogen was identified by FLRSV test. If further testing is required, please call [phone] Result Comment: Account Credited LAB [id number] Negative Abnormal Respiratory Alert Influenza A Viral Panel not H1N1 09 performed since pathogen was identified by FLRSV test. If further testing is required, please call [phone] Result Comment: Account Credited LAB FLUBRV Negative Abnormal Respiratory Alert Influenza B Viral Panel not Virus performed since pathogen was identified by FLRSV test. If further testing is required, please call [phone] Result Comment: Account Credited LAB RSVA Negative Abnormal Resp Respiratory Alert Syncytial Vir A Viral Panel not performed since pathogen was identified by FLRSV test. If further testing is required, please call [phone] Result Comment: Account Credited LAB RSVB Negative Abnormal Resp Respiratory Alert Syncytial Vir B Viral Panel not performed since pathogen was identified by FLRSV test. If further testing is required, please call [phone] Result Comment: Account Credited LAB PIV1 Negative Parainfluenza 1 Abnormal Respiratory Alert Viral Panel not performed since pathogen was identified by FLRSV test. If further testing is required, please call [phone] Result Comment: Account Credited LAB PIV2 Negative Parainfluenza 2 Abnormal Respiratory Alert Viral Panel not performed since pathogen was identified by FLRSV test. If further testing is required, please call [phone] Result Comment: Account Credited LAB PIV3 Negative Parainfluenza 3 Abnormal Respiratory Alert Viral Panel not performed since pathogen was identified by FLRSV test. If further testing is required, please call [phone] Result Comment: Account Credited LAB HMPV Negative H Metapneumovirus Abnormal Respiratory Alert Viral Panel not performed since pathogen was identified by FLRSV test. If further testing is required, please call [phone] Result Comment: Account Credited LAB HRV Negative Abnormal Respiratory Alert Rhinovirus Viral Panel not performed since pathogen was identified by FLRSV test. If further testing is required, please call [phone] Result Comment: Account Credited LAB ADVBE Negative Abnormal Respiratory Alert Adenovirus B/E Viral Panel not performed since pathogen was identified by FLRSV test. If further testing is required, please call [phone] Result Comment: Account Credited LAB ADVC Negative Abnormal Respiratory Alert Adenovirus C Viral Panel not performed since pathogen was identified by FLRSV test. If further testing is required, please call [phone] Result Comment: Account Credited Performed By: #### FLRSV, RVPPCR #### [facility] [employer] [address], [place] [address] GASA + ALL Collected: 07/05/2017 Status: F Source: [facility] 1:00 AM [facility] USE ONLY REPOSITORY TYPE CODE TESTS RESULT [...] Comment: 50% Performed By: #### ALLBG #### [facility] [employer] [address] [place], [place] [address] XR CHEST 1V FRONTAL Observed: 07/05/2017 Status: F Source: [facility] 12:19 AM [facility] REPOSITORY * * *Final Report* * * [...] silhouette. Other: No acute chest wall abnormality. Process Control Specialist: PSCLaura Transcribe Date/Time: Jul 05 2017 3:10P Dictated by : DEBBY FRY MD This examination was interpreted and the report reviewed and electronically signed by: DEBBY FRY MD on Jul 05 2017 3:14PM EST [id number] SEPSIS LACTATE Collected: 07/04/2017 Status: F Source: [place] 11:57 PM [facility] REPOSITORY TYPE CODE TESTS RESULT OUT OF REFERENCE UNITS RANGE LAB SLACTT <2.1 mmol/L Sepsis 0.9 Lactate Performed By: #### SLACT #### [facility] [address] [place] [id number] HISTORY PHYSICAL Observed: 07/04/2017 Status: COMPLETED Source: [place] 11:48 PM [facility] REPOSITORY HNO ID: [id number] Author: Ezra Dubon Service: General Internal Medicine [...] transplant nephrology decided to transfer patient to [facility] for further management. On arrival she was [...] scoop daily Disp: 1 Bottle Rfl: 11 eietco-axoutuhm-exgyaaa (CREON) 12,000-38,000 -60,000 unit cpDR Take 1 [...] mother) 02/21/10 now with CKD CMV -/+. BLOCKER AND POLISHER IS: Cellcept, Prednisone and Prograf. - Anemia in chronic kidney disease On aranesp injection ~ every two weeks. Plan: Monitor CBC Send folate and B12 SIGNATURE: Tone Hercules MD PATIENT NAME: Val Valverde DATE: July 04, 2017 TIME: 11:51 PM PAGER/CONTACT #: [phone] [facility] Addendum Please refer to excellent note by Dr Hercules above for futher details. CHIEF COMPLAINT: Strep PNA HPI 46-year-old female with history of gastric carcinoma s/p radical near total gastrectomy with Layne gastrojejunostomy in 2000 and kidney transplant in 02/2010, CMV gastric ulcer in 10/2015, presented from [facility] with fever, chest pain and shortness of [...] been following up with transplant nephrology at [facility] and so the plan was for [...] Ezra Dubon MD Internal Medicine PGY-3 Pager [phone] July 05, 2017 1:03 AM PROTIME Collected: 07/04/2017 Status: F Source: [place] 11:47 PM [facility] REPOSITORY TYPE CODE TESTS RESULT OUT OF RANGE REFERENCE UNITS LAB PSEC 9.7-13.0 sec PT Sec 10.3 LAB INR 0.9-1.3 PT INR 1.0 Result Comment: Vitamin K Antagonist (VKA) Therapeutic Range: INR 2 to 3 (Target INR of 2.5) Note: For patients treated with VKA drugs, such as warfarin, the [place] [employer]icians 2012 Guideline recommends [...] Chest 2012, 141:7S-47S Jin RA, et al. [facility] 2017, 70: 252-289 Performed By: #### PT, RETIC, CMP, CBCDIF #### [facility] [employer] [address] [place] [address] RETICULOCYTE Collected: 07/04/2017 Status: F Source: [place] 11:47 [facility] REPOSITORY TYPE CODE TESTS RESULT OUT OF REFERENCE UNITS RANGE LAB RETC 0.4-2.0 % Retic% 1.2 LAB ABRET 0.0180-0.1000 M/uL Abs Retic 0.029 Performed By: #### PT, RETIC, CMP, CBCDIF #### [facility] [employer] [address] [place] [id number] COMP METABOLIC PANEL Collected: 07/04/2017 Status: F Source: [place] 11:47 [facility] REPOSITORY TYPE CODE TESTS RESULT [...] mg/dL Low Glucose 71 Result Comment: The [place] Diabetes Association (ADA) provides guidance for cutoff [...] Standards of Medical Care in Diabetes 2016, [place] Diabetes Association. Diabetes Care. 2016.39(Suppl 1). LAB [...] By: #### PT, RETIC, CMP, CBCDIF #### [facility] [address] [place], [place] [address] CBC AND DIFFERENTIAL Collected: 07/04/2017 Status: F Source: [place] 11:47 PM [facility] REPOSITORY TYPE CODE TESTS RESULT [...] Abs Lymph Low 0.00 LAB AMONO % [facility]% 4.3 LAB AAMONO <0.87 k/uL Abs [facility] 0.49 LAB AEOS % Eosin% 0.0 LAB AAEOS <0.46 k/uL Abs Eosin 0.00 LAB ABASO % Baso% 0.0 LAB AABASO <0.11 k/uL Abs Baso 0.00 LAB ANIIMI Anisocytosis Present LAB OVAIMI Ovalocytes Few LAB RCFIMI RBC Fragments Few LAB PLTEST Platelet Estimate Platelet estimate decreased LAB DTYP DTYPE Manual Diff Performed By: #### PT, RETIC, CMP, CBCDIF #### [facility] [employer] [address] [place], [place] [address] VITAMIN B12 Collected: 07/04/2017 Status: F Source: [place] 11:47 PM [facility] REPOSITORY TYPE CODE TESTS RESULT OUT OF REFERENCE UNITS RANGE LAB B12 232-1245 pg/mL High Vitamin B12 >2000 Performed By: #### B12, SERFOL #### [facility] [employer] [address] [place], [place] [address] FOLATE, SERUM Collected: 07/04/2017 Status: F Source: [place] 11:47 PM [facility] REPOSITORY TYPE CODE TESTS RESULT OUT [...] III (Folate III) [package insert V 1.0 Lithuanian]. [facility] [place], [place]: March 2015. Performed By: #### B12, SERFOL #### [place] [address] [place] [address] CKMB Collected: 07/04/2017 Status: F Source: [place] 11:47 [facility] REPOSITORY TYPE CODE TESTS RESULT OUT OF RANGE REFERENCE UNITS LAB MBE1 <4.3 ng/mL CKMB 1.3 Result Comment: Please note the updated, gender-specific reference range for this test (effective 05/03/2016). Performed By: #### MBE, ANDREINA #### [place] [address] TROPONIN T Collected: 07/04/2017 Status: F Source: [place] 11:47 [facility] REPOSITORY TYPE CODE TESTS RESULT OUT OF REFERENCE UNITS RANGE LAB TROPT 0.000-0.029 ng/mL Troponin T <0.010 Performed By: #### MBE, ANDREINA #### [place] [address] TACROLIMUS / FK506 Collected: 07/04/2017 Status: F Source: [place] 11:47 [facility] REPOSITORY TYPE CODE TESTS RESULT [...] Test performed by chemiluminescent immunoassay using [employer]. Performed By: #### FK506 #### [place] [id number] [place] [address] Observed: 07/04/2017 Status: F Source: [place] BLOOD CULTURE 11:45 PM [facility] REPOSITORY Culture Result - No growth 5 days Performed By: #### BLCUL #### [place] [address] TYPE AND SCREEN Collected: 07/04/2017 Status: F Source: [place] 11:35 PM [facility] REPOSITORY TYPE CODE TESTS RESULT OUT OF REFERENCE UNITS RANGE LAB %ABR B ABO/RH(D) POSITIVE LAB % Antibody NEG Screen Performed By: #### TSCR #### [place] [address] NURSING PROG Observed: 07/04/2017 Status: COMPLETED Source: [place] 11:15 PM [facility] REPOSITORY HNO ID: [id number] Author: Mihaela (Rn) Asp, RN Service: (none) Author Type: Registered Nurse Type: Nursing Progress Note Filed: 07/05/2017 1:58 AM Note Text: Nursing Progress Note Patient Name: Val Valverde Patient Location: [place] [address] Transfer Note: Patient transferred into room/unit [facility] from [facility] needing increased oxygen requirements. O2 was [...] PT ED Observed: 07/04/2017 Status: COMPLETED Source: [place] 11:00 PM [facility] REPOSITORY HNO ID: [id number] Author: Cc Provider Service: (none) Author Type: Physician Type: Patient Education Filed: 07/04/2017 11:00 PM Note Text: [facility] Patient Education Report --------- Name: VAL VALVERDE Date: 07/04/2017 Time: 11:00 PM Patient Ordered Video: Inpatient Falls from [id number] via phone number [phone] at 11:00 PM DISCHARGE SUMMARY Observed: 07/04/2017 Status: F Source: [place] 3:51 PM [facility] REPOSITORY [facility] Medical [facility] Department [address] [place] [address] Discharge Summary 07/04/17 1527 MR#: [id number] Acct: [id number] Name: VAL VALVERDE Rep #: [id number] : 1970 46 From: Ruby Boyd COMB SETTER-C PCP: Wil To MD Status: ADM IN Location: [facility] [id number] <Ruby Boyd - Last Filed: 07/04/17 15:31> [...] Vikas Haney MD at 12:52 EST Tel [phone], Service support , Dr. Mcdaniel- Nephrology Operations: [...] transplant-nephrology consulted. Patient follows with nephrology at [facility]. Nephrology managing her tacrolimus which was decreased given renal failure and pneumonia. Continue prednisone. Tacrolimus level pending. Transfer to [facility] pending given history of kidney transplant which [...] above. Patient is stable for transfer to [facility]. This patient was seen by RUDY Stevens [...] Care Provider] - Within 2 Weeks Disposition: Acute [facility] Minutes spent on discharge:: 35 Patient [...] agree with the above note by the COMB SETTER. Data reviewed. Female presents with shortness of [...] made to transfer the patient to the [facility]. I spoke with the transfer line spoke [...] applicable Code Visit Inpatient E AND M: 81379 Disch Hosp 07/04/17 1532 <Electronically signed by Ruby TORRESC> Date Ruby TORRESC 07/04/17 1551<Electronically signed by Dionte Hutchison DO> Cosigner Signature (if applicable): Date Dionte Hutchison DO CC: COMB SETTER-C Ruby Boyd; Wil To MD; Dionte Hutchison DO Signed CONSULTATION Observed: 07/04/2017 Status: F Source: [place] 1:49 PM [facility] REPOSITORY [facility] Department [address] [place] [address] Consultation 07/04/17 1059 MR#: [id number] Acct: [id number] Name: VAL VALVERDE Rep #: [id number] : 1970 46 From: Marietta Mcdaniel DO PCP: Wil To MD Status: ADM IN Location: [place] [id number] Consultation - Renal 07/04/17 PCP/ Referring MD: [...] from her mother in February 2010 at [facility], followed by Dr. Hameed at [facility] [place]. She presented to ED on 07/03 with [...] discussion about dialysis in the past with [facility] but no definite plans made. Creatinine on admission was elevated at 5.48 improved to 4.5 with IV hydration overnight. She denies any syncope or swelling. She has increased abdominal fullness with fluids or small meals. She has a history of CMV bleeding ulcers hospitalized twice at [facility] last year requiring intubation for one of [...] mg Albuterol/Ipratropium (Duoneb) 3 ml INHALATION Q6H.RT [facility] Last Admin: 07/04/17 07:20 Dose: 3 ml Bisacodyl (Dulcolax) 5 mg PO DAILY PRN PRN PRN Reason: Constipation Calcium/Vitamin D (Os-Patrice 500mg + D) 1 tablet PO BIDCM [facility] Last Admin: 07/04/17 09:50 Dose: 1 tablet Colestipol HCl (Colestid Tablet) 1 gm PO BID [facility] Last Admin: 07/04/17 08:50 Dose: 1 gm Cyanocobalamin (Vitamin B12) 1,000 mcg IM Q30D [facility] Last Admin: 07/03/17 19:30 Dose: 1,000 mcg Dronabinol (Marinol) 2.5 mg PO 4X/DAY [facility] Last Admin: 07/04/17 09:50 Dose: 2.5 mg Escitalopram Oxalate (Lexapro) 10 mg PO QODAY [facility] Gabapentin (Neurontin) 300 mg PO BIDCM [facility] Last Admin: 07/04/17 09:50 Dose: 300 mg Heparin Sodium (Porcine) () 5,000 units SC Q8 [facility] Last Admin: 07/04/17 05:47 Dose: 5,000 units Sodium Chloride () 1,000 mls @ 125 mls/hr IV .Q8H [facility] Last Admin: 07/04/17 08:34 Dose: 125 mls/hr Ceftriaxone Sodium (Rocephin) 1 gm in 50 mls @ 100 mls/hr IV Q24 [facility] Last Admin: 07/04/17 09:52 Dose: 100 mls/hr Vancomycin HCl () 500 mg in 100 mls @ 100 mls/hr IV Q72H [facility] Last Admin: 07/04/17 01:50 Dose: 100 mls/hr Magnesium Hydroxide (Milk Of Magnesia) 30 ml PO DAILY PRN PRN Reason: Constipation Non-Formulary Medication (Tacrolimus) 2 mg PO BREAKFAST [facility] Non-Formulary Medication (Tacrolimus [Envarsus Xr]) 1 mg PO DINNER [facility] Ondansetron HCl (Zofran) 4 mg IV Q8H PRN PRN PRN Reason: NAUSEA Oxycodone HCl (Oxyir) 5 - 10 mg PO Q4H PRN PRN PRN Reason: MOD-SEVERE PAIN (4-10/10) Last Admin: 07/04/17 06:08 Dose: 5 mg Pancrelipase (Pancrelipase (5000-17,000-27,000)) 1 capsule PO TIDCM [facility] Last Admin: 07/04/17 09:50 Dose: 1 capsule Pantoprazole Sodium (Protonix) 40 mg PO DAILY [facility] Last Admin: 07/04/17 08:50 Dose: 40 mg Polyethylene Glycol (Miralax) 17 gm PO DAILY PRN PRN PRN Reason: Constipation [facility]) [facility] Last Admin: 07/04/17 08:50 Dose: 5 mg Multivit/Folic Acid/Iron (Prenatabs Fa) 1 tablet PO DAILY [facility] Last Admin: 07/04/17 09:50 Dose: 1 tablet Promethazine HCl (Phenergan (Ll)) 12.5 mg IV Q6H PRN PRN Reason: NAUSEA Sodium Bicarbonate (Sodium Bicarbonate) 650 mg PO DAILY [facility] Last Admin: 07/04/17 09:50 Dose: 650 mg [...] Anemia - Managed by Dr. Tian in [facility] on RICKY therapy, -. Denies: Hx of [...] 18 110/82 H 94 07/04/17 10:00 07/04/17 10:00 07/04/17 10:00 07/04/17 10:00 07/04/17 10:00 Oxygen Flow Rate 5 Oxygen Delivery [...] Vikas Haney MD at 12:52 EST Tel [phone], Service support , Assessment/Plan Active and Suspected [...] 3. S/p kidney transplant. Discussed with transplant greenskeeper head at [facility] in regards to adjusting her tacrolimus dose [...] levels, would recommend to transfer her [facility]. Discussed with transplant greenskeeper head and hospitalist. 07/04/17 1349 <Electronically signed by Marietta Mcdaniel DO> Date Marietta Mcdaniel DO Cosigner Signature (if applicable): Date CC: Wil To MD; Marietta Mcdaniel DO Signed TYPE AND SCREEN Collected: 07/04/2017 Status: F Source: [place] 11:47 AM [facility] REPOSITORY Order Comment: CMV NEG? N Number [...] NEGATIVE Screen Performed By: #### B101.7450 #### [facility] [address] [place], [place], [address] RC Collected: 07/04/2017 Status: F Source: [place] 11:47 AM [facility] REPOSITORY TYPE CODE TESTS RESULT OUT OF REFERENCE UNITS RANGE LAB U100.0000 [id number] TRANSFUSED PRODUCT: T AND S with Crossmatch, Red Cells COUNT: 1 Performed By: #### U100.0000 #### Non-[facility] - refer to report for specific site CBC-COMPLETE BLOOD CNT Collected: 07/04/2017 Status: F Source: [place] NO DIFF 6:23 AM [facility] REPOSITORY TYPE CODE TESTS RESULT OUT OF [...] MPV 11.8 Performed By: #### L100.0500 #### [facility] [address] [place], [place], [address] RENAL PROFILE Collected: 07/04/2017 Status: F Source: [place] 6:23 AM [facility] REPOSITORY TYPE CODE TESTS RESULT OUT OF [...] Performed By: #### L500.3600, L503.6150, L503.6550 #### [facility] [address] [place], [place], [id number] IRON Collected: 07/04/2017 Status: F Source: [place] 6:23 AM [facility] REPOSITORY TYPE CODE TESTS RESULT OUT OF RANGE REFERENCE UNITS LAB L503.6150 50-170 ug/dL Low IRON 9 Performed By: #### L500.3600, L503.6150, L503.6550 #### [facility] [address] [place], [place], [address] FERRITIN Collected: 07/04/2017 Status: F Source: [place] 6:23 AM [facility] REPOSITORY TYPE CODE TESTS RESULT OUT OF REFERENCE UNITS RANGE LAB L503.6550 8-252 ng/mL High FERRITIN 1071 Performed By: #### L500.3600, L503.6150, L503.6550 #### [facility] [address] [place], [address] M R STAPH AUREUS Collected: 07/04/2017 Status: F Source: [place] DNA BY PCR 1:15 AM [facility] REPOSITORY Order Comment: Order Date: 07/04/17 Has pt arrived? Y TYPE CODE TESTS RESULT OUT OF RANGE REFERENCE UNITS LAB L8200.1100 Negative Normal MRSA Negative RESULT Performed By: #### L8200.1000 #### [facility] [address] [place], [address] STREP Observed: 07/03/2017 Status: F Source: [place] PNEUMONIAE ANTIG(UR,CSF) 11:20 PM [facility] REPOSITORY Has pt arrived? Y S pneumo Ag URINE INTERPRETATION Positive Urine Positive for pneumococcal pneumonia. RESULTS CALLED TO DICK MOCTEZUMA PCU 07/03/17 2355 Tianna Mccann. REPORT READ BACK BY SAME. Copy of report sent to Infection Control Printer [id number] 07/03/17 2355 OMARTrue StyleFLOWER. Strep pneumo Test Urine POSITIVE for pneumococcal pneumonia. ORGANISM 1: Streptococcus pneumonia Ag Performed By: #### M300.4600 #### [facility] [address] [place], [address] Observed: 07/03/2017 Status: F Source: [place] LEGIONELLA ANTIGEN 11:20 PM [facility] URINE REPOSITORY Has pt arrived? Y Legionella, UR Legionella Antigen result interpretation: Negative Presumptive negative for Legionella pneumophila serogroup 1 antigen in urine, suggesting no recent or current infection. Legionella Ag, Urine Negative (See interpretation below) Performed By: #### M300.4500 #### [facility] [address] [place], [address] LACTIC ACID Collected: 07/03/2017 Status: F Source: [place] 5:05 PM [facility] REPOSITORY Order Comment: Yes/No query for Sepsis Lactate Rule Y TYPE CODE TESTS RESULT OUT OF RANGE REFERENCE UNITS LAB L503.6005 0.4-2.0 mmol/L Normal LACTIC ACID 1.8 Performed By: #### L503.6005 #### [facility] [address] [place], [address] HISTORY AND PHYSICAL Observed: 07/03/2017 Status: F Source: [place] EXAM 3:30 PM [facility] REPOSITORY [facility] [address] [place] [address] History and Physical 07/03/17 1510 MR#: [id number] Acct: [id number] Name: VAL VALVERDE Rep #: [id number] : 1970 46 From: Inge Waldrop MD PCP: Wil To MD Status: ADM IN Y Location: [place] [address] Problem List (1) Sepsis Status: Acute Qualifiers: [...] 3.2 last year. She followed nephrology at [facility]. WBC was 4.5, lactic acid was 2.9. [...] Vikas Haney MD at 12:52 EST Tel [phone], Service support , Assessment/Plan Active and Suspected [...] 3.2 last year. She followed nephrology at [facility]. WBC was 4.5, lactic acid was 2.9. [...] after IV bolus. Repeat BMP. She seed [facility] nephrology. Consult Dr. Mcdaniel while in the hospital. If renal function dose not improve, she may need to be transferred to [facility]. #4 History of renal transplant. Continue current [...] Disposition: To be determined. Code Visit Inpatient E AND M: 80495 Init Hosp L3 07/03/17 2530 <Electronically signed by Inge Wal[place] MD> Date Inge Waldrop MD Cosigner Signature: Date (if applicable) CC: Wil To MD; Inge Waldrop M.D. Signed LACTIC ACID Collected: 07/03/2017 Status: F Source: [place] 1:35 PM [facility] REPOSITORY Order Comment: Yes/No query for Sepsis Lactate Rule Y TYPE CODE TESTS RESULT OUT OF REFERENCE UNITS RANGE LAB L503.6005 0.4-2.0 mmol/L High LACTIC ACID 2.9 Result Comment: Critical Result(s) Called at: 14:04:46 07/03/2017 by: Milagros Santoyo Performed By: #### L503.6005 #### [facility] [address] [place], [address] Observed: 07/03/2017 Status: C Source: [place] CULTURE, BLOOD (WB) 1:35 PM [facility] REPOSITORY BC * This is an amended result. * A prior result that was reported as final has been changed. 07/06/17 0714 by LEEANNA Previously reported as: ANAEROBIC AND AEROBIC BOTTLE GRAM STAIN= GRAM POSITIVE COCCI IN CHAINS RESULTS CALLED TO DICK MOCTEZUMA PCU 07/03/17 8492 Tianna Mccann. REPORT READ BACK BY SAME. Copy of report sent to Infection Control Printer [id number] 07/04/17 5892 DGRADChula. No anaerobic bacteria isolated. ORGANISM 1: Streptococcus [...] 0.5 S (NF) indicates non-formulary drug at [facility]. Approval by Infectious Disease Specialist required before non-formulary drugs may be ordered and/or dispensed. * CLSI guidelines does not recommend testing of cephalosporins. This interpretation is deduced from Beta-lactam/penicillin results. Performed By: #### M200.1000, M100.636 #### [facility] [address] [facility] [place], [address] Observed: 07/03/2017 Status: F Source: [facility] GPC ID 1:35 PM [facility] REPOSITORY BC GPC ID Copy of report sent to Infection Control Printer [id number] 07/04/17 8482 LSHOBE. Staphylococcus sp. Not Detected Enterococcus sp. Not Detected Streptococcus spp. Streptococcus pneumoniae Listeria spp Not Detected Duglas/vanB Not Detected mecA Not Detected NAAT METHOD Testing was performed using nucleic acid amplification ORGANISM 1: Streptococcus pneumoniae Performed By: #### M200.1000, M100.636 #### [facility] [address] [facility] [place], [address] Observed: 07/03/2017 Status: F Source: [place] CULTURE, BLOOD (WB) 1:30 PM [facility] REPOSITORY AEROBIC AND ANAEROBIC BOTTLE GRAM STAIN= GRAM POSITIVE COCCI IN CHAINS PLEASE REFER TO BC658 FOR SENSITIVITY ORGANISM 1: Streptococcus pneumoniae Performed By: #### M200.1000 #### [facility] [address] [place], [place], [address] CBC W/DIFF, AUTOMATED Collected: 07/03/2017 Status: F Source: [place] 12:25 PM [facility] REPOSITORY TYPE CODE TESTS RESULT OUT OF [...] Normal 1+ Performed By: #### L100.0100 #### [facility] [address] [place], [address] BASIC METABOLIC Collected: 07/03/2017 Status: F Source: [place] PROFILE (BMP) 12:25 PM [facility] REPOSITORY Order Comment: 'TROP' Serial specimen #1, [...] 12 Performed By: #### L500.2500, L501.4010 #### [facility] [address] [facility] [place], [place], [id number] TROPONIN-I Collected: 07/03/2017 Status: F Source: [place] 12:25 PM [facility] [facility] RE[facility] Order Comment: 'TROP' Serial specimen #1, #2, #3, or #4: 1 TYPE CODE TESTS RESULT OUT OF RANGE REFERENCE UNITS LAB L501.4010 <0.06 ng/mL Normal < 0.02 TROPONIN-I Result Comment: TROPONIN-I EXPECTED VALUES <0.05 NEGATIVE 0.06 - 0.59 AT RISK OF [place] > OR = 0.60 SUGGEST [place] Performed By: #### L500.2500, L501.4010 #### [facility] [address] [place], [place], [id number] TACROLIMUS (PROGRAF) Collected: 07/03/2017 Status: F Source: [place] 12:25 PM [facility] [place] RE[facility] Order Comment: Comments: May use existing [...] signs of potential toxicity. Performed at: - [facility] [id number] Outside Property Agent: Nik Walker MD, Phone: [phone] Performed By: #### L3380.1000 #### [facility] (refer to report for specific site) refer to report for address and phone number CHEST PA AND LATERAL Observed: 07/03/2017 Status: F Source: [place] 12:24 PM [facility] [place] [address] [address] Chest PA and Lateral MR#: [id number] Acct: [id number] Name: VAL VALVERDE Rep #: [id number] : 1970 F 46 From: Vikas Haney MD PCP: Wil To MD Status: PRE ER Study: Chest PA and Lateral Date of Exam: 07/03/17 Exam# [id number] Ordering Dr: Osei Wade MD STUDY: X-RAY [...] Vikas Haney MD at 12:52 EST Tel [phone], Service support , CC: Wil To MD; Osei Wade MD Process Control Specialist: Signed CR-CHEST PA AND Observed: 07/03/2017 Status: F Source: [place] LATERAL IMPORT 12:00 AM [facility] REPOSITORY Images were obtained outside of [facility] [id number] K[facility]HA HEMATOCRIT Collected: 06/30/2017 Status: F Source: [place] 11:07 AM [facility] REPOSITORY TYPE CODE TESTS RESULT OUT OF REFERENCE UNITS RANGE LAB WHCT 36.0-46.0 % Low [place] Hematocrit 26.4 Result Comment: Test performed at: [facility], [address] [place] [address] Rd., [place] [address]. KESHA HEMOGLOBIN Collected: 06/30/2017 Status: F Source: [place] 11:07 AM [facility] REPOSITORY TYPE CODE TESTS RESULT OUT OF REFERENCE UNITS RANGE LAB WHGB 11.5-15.5 g/dL Low [place] Hemoglobin 8.6 Result Comment: Test performed at: [address] [place] [address]. PROGRESS Observed: 06/23/2017 Status: COMPLETED Source: [place] 4:20 PM [facility] REPOSITORY HNO ID: [id number] Author: Duy Dumas Service: (none) Author Type: [...] d/t abdominal issues and was encouraged by greenskeeper head to eat whatever she could tolerate. Last [...] 1 tablet by mouth every 48 hours. wchqwt-cxqcdzkj-gqhmath (CREON) 12,000-38,000 -60,000 unit cpDR Take 1 [...] CNP PROGRESS Observed: 06/18/2017 Status: COMPLETED Source: [place] 12:00 AM [facility] REPOSITORY HNO ID: [id number] Author: Andrey Barajas Service: Abstract Author Type: Physician Type: Progress Notes Filed: 06/23/2017 7:58 AM Note Text: [facility] NOTE NAME: VAL VALVERDE CLINIC NO.: [id number] DATE OF SERVICE: 06/18/2017 SUBJECTIVE: Val was seen by me in [place]. She has a very complicated history of [...] been set up. Sincerely, DICTATED BY: Luca Alexandre/Sumit JOB# [id number] KESHA ABS GR + CBC Collected: 06/16/2017 Status: F Source: [place] 11:17 AM [facility] REPOSITORY TYPE CODE TESTS RESULT OUT OF REFERENCE UNITS RANGE LAB WWBC 3.70-11.00 k/uL K[place]ha WBC 8.91 LAB WRBC 3.90-5.20 m/uL Low [place] RBC 2.68 LAB WHGB 11.5-15.5 g/dL Low [place] Hemoglobin 10.0 LAB WHCT 36.0-46.0 % Low [place] Hematocrit 30.7 LAB WMCV 80.0-100.0 fL [place] High MCV 114.6 Result Comment: Result rechecked. LAB WMCH 26.0-34.0 pg High [place] MCH 37.3 LAB WMCHC 30.5-36.0 g/dL [place] MCHC 32.6 LAB WRDW 11.5-15.0 % [place] RDW 14.7 LAB WPLT 150-400 k/uL Kesha 159 Platelet Cnt LAB WMPV 9.0-12.7 fL [place] MPV 10.7 Result Comment: Test performed at: [facility] [place], [address] [place] [address]. LAB ABGRAN 1.45-7.50 k/uL Absol Gran 5.57 Count Result Comment: Reviewed Performed By: #### WAGCBC #### [place] [address] [place], [place] [address] HOSP Observed: 06/16/2017 Status: COMPLETED Source: [place] 10:45 AM [facility] REPOSITORY Infusion Center ([facility]) VAL VALVERDE ([id number]) 1970 F TRN Date Time Provider Department 06/16/17 10:45 AM [facility] During your visit today, we recorded the following information about you: Poppy Galvez LPN, OPAL 06/16/2017 12:16 PM Signed Injection deferred,Parameters not met HGB 10.0 Poppy Galvez LPN Referring Provider: ALEX TIAN [[id number]] Allergies As of Date: 06/16/2017 Noted Allergy Reaction SULFA (SULFONAMIDE ANTIBIOTICS) 04/07/2001 4 - Hives Comments: hives NSAIDS (NON-STEROIDAL ANTI-INFLAM*04/23/2016 5 - Intolerance Date Reviewed: 06/04/2017 Reviewed by: Poppy Brian (Opal) OPAL Galvez - Fully Assessed Primary Visit [...] Take 1 tablet by mouth every * HLQQYT-XRUAIZKV-JIOOYOU 12,00* Take 1 capsule by mouth three* [...] 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 Nausea AND vomiting [R11.2] INVALID FOR*12/30/2016 More... GI bleed [K92.2] INVALID FOR* Priority: C More... History of gastric cancer [Z85.028] INVALID FOR* Pancytopenia (HCC) [D61.818] INVALID FOR* Priority: B Central line infection [T80.219A] INVALID FOR*02/27/2017 Priority: A More... Severe protein-calorie malnutrition (HCC) [E43] INVALID FOR* Hx of transfusion [Z92.89] INVALID FOR* More... Visit Notes: >> Poppy Brian (Opal) OPAL Galvez FriJun 16, 2017 12:14 PM Status: Signed Injection deferred,Parameters not met HGB 10.0 Poppy Galvez LPN Encounter Status:Closed by POPPY GALVEZ on 06/16/17 ALLERGIES ALLERGIES DATE TYPE / CODE NAME / CODE REACTION SEVERITY SOURCE 05/25/2018 Drug NSAIDS Other Unknown [facility] ([facility] 320658(SNOM l Repository ED CT) Anti-Inflamma /[id number](R XNORM) 05/25/2018 Drug Sulfa Hives Unknown [place] [facility] All[facility]/416 (Sulfonamide Hospital 792853(SNOM Antibiotics)/ Repository ED CT) V456594325(RX NORM) 04/23/2016 Drug NSAIDS INTOLERANCE [facility] Class/30625 (NON-STEROIDA Main [place] 1003(SNOMED L Repository CT) ANTI-INFLAMMA TORY DRUG) 04/07/2001 Drug SULFA HIVES Med [facility] Class/15712 (SULFONAMIDE Main [place] 1003(SNOMED ANTIBIOTICS) Repository CT) ENCOUNTERS ENCOUNTERS ADMIT/DISCHARGE ACCOUNT ADMITTING ENCOUNTER LOCATION SOURCE NUMBER CLASS 05/25/2018/05/25/19 [id number] Ambulatory BMSBuilding:B [place] 19 MS.[facility] Repository 05/13/2018/05/13/20 [id number] Ambulatory BMSBuilding:B [place] 18 MS.[facility] Repository 05/06/2018 [id number] Ambulatory BMSBuilding:B [place] MS.CF.[facility] Repository 05/06/2018/05/06/20 [id number] Ambulatory [place]ha K[facility]ha 18 [facility] Hospital ing:SDCRoom: Repository AC04 04/28/2018/04/28/20 [id number] Ambulatory [address] Hospitalild Hospital ing:SDCRoom: Repository AC09 04/28/2018/04/28/20 [id number] Ambulatory BMSBuilding:B [place] 18 MS.CF.[facility] Repository 04/27/2018/04/27/20 [id number] Ambulatory BMSBuilding:B [place] 18 MS.[facility] Repository 04/21/2018 [id number] Ambulatory [facility] Hospitalild Hospital ing:CVS Repository 04/21/2018 [id number] Ambulatory BMSBuilding:B [place] MS.CF.[facility] Repository 04/15/[id number] [facility] Hospital ing:POLAB3 Repository 04/13/2018/04/14/20 [id number] Ambulatory [address] Main [place] Repository 04/13/2018/04/14/20 [id number] Ambulatory [address] Main [place] Repository 04/06/2018/04/06/20 [id number] Ambulatory [address] Main [place] Repository 04/06/2018/04/07/20 [id number] Ambulatory [address] Main [place] Repository 04/01/2018/04/02/20 [id number] Ambulatory [place] [facility] Main [place] Repository 03/20/2018/03/20/20 [id number] Ambulatory [place] 18 [facility] Main [place] Repository 03/16/2018/03/17/20 [id number] Ambulatory [place] [facility] Main [place] Repository 03/16/2018/03/17/20 [id number] Ambulatory [place] [facility] [place] Repository 03/12/2018/03/13/20 [id number] Ambulatory [place] 18 [facility] Main [place] Repository 03/11/2018 [id number] Ambulatory [facility] Hospitalild Hospital ing:OT Repository 03/05/2018/03/06/20 [id number] Ambulatory [place] 18 [facility] Main [place] Repository 03/04/2018/03/05/20 [id number] Ambulatory [place] [facility] [place] Repository 02/26/2018/02/28/20 [id number] Ambulatory [place] 18 [facility] Main [place] Repository 02/16/2018/02/18/20 [id number] Ambulatory [place] [facility] [place] Repository 02/16/2018/02/17/20 [id number] Ambulatory [place] [facility] [place] Repository 02/16/2018/04/15/20 [id number] Ambulatory [place] [facility] [place] Repository 02/04/2018/02/06/20 [id number] Ambulatory [place] [facility] [place] Repository 01/30/2018/01/31/20 [id number] Ambulatory [place] [facility] [place] Repository 01/26/2018/01/28/20 [id number] Ambulatory [place] [facility] [place] Repository 01/26/2018/01/27/20 [id number] Ambulatory [place] [facility] [place] Repository 01/12/2018/01/14/20 [id number] Ambulatory [place] [facility] [place] Repository 01/12/2018/01/13/20 [id number] Ambulatory [place] [facility] [place] Repository 12/30/2017 [id number] Ambulatory [facility] [place] Repository 12/29/2017/12/31/19 [id number] Ambulatory [place] [facility] [place] Repository 12/29/2017/12/31/19 [id number] Ambulatory [place] [facility] [place] Repository 12/23/2017/01/22/20 [id number] Ambulatory [place] [facility] [place] Repository 12/23/2017/12/24/19 [id number] Ambulatory [place] [facility] [place] Repository 12/22/2017/12/23/19 [id number] Ambulatory [place] [facility] [place] Repository 12/15/2017/12/17/19 [id number] Ambulatory [place] [facility] [place] Repository 12/15/2017/12/17/19 [id number] Ambulatory [place] [facility] [place] Repository 12/11/2017/12/12/19 [id number] Ambulatory [place] [facility] [place] Repository 11/17/2017/11/18/19 [id number] Ambulatory [place] [facility] [place] Repository 11/17/2017/11/19/19 [id number] Ambulatory [place] [facility] [place] Repository 11/12/2017/11/13/19 [id number] Ambulatory [place] [facility] [place] Repository 11/03/2017/11/05/19 [id number] Ambulatory [place] [facility] [place] Repository 11/03/2017/11/04/19 [id number] Ambulatory [place] [facility] [place] Repository 10/22/2017/10/24/19 [id number] Ambulatory [place] [facility] [place] Repository 10/20/2017/10/22/19 [id number] Ambulatory [place] [facility] [place] Repository 10/20/2017/10/22/19 [id number] Ambulatory [place] [facility] [place] Repository 10/06/2017 [id number] Ambulatory [facility] [place] Repository 10/06/2017 [id number] Ambulatory [facility] [place] Repository 10/06/2017/10/07/19 [id number] Ambulatory [place] [facility] [place] Repository 10/06/2017/10/08/19 [id number] Ambulatory [place] [facility] [place] Repository 10/01/2017/11/04/19 [id number] Ambulatory [place] [facility] [place] Repository 09/29/2017/10/01/19 [id number] Ambulatory [place] [facility] [place] Repository 09/29/2017/09/30/19 [id number] Ambulatory [place] [facility] [place] Repository 09/24/2017/09/25/19 [id number] Ambulatory [place] [facility] [place] Repository 09/15/2017/09/16/19 [id number] Ambulatory [place] [facility] [place] Repository 09/15/2017/09/17/19 [id number] Ambulatory [place] [facility] [place] Repository 09/15/2017/09/17/19 [id number] Ambulatory [place] [facility] [place] Repository 09/08/2017/09/10/19 [id number] Ambulatory [place] [facility] [place] Repository 09/08/2017/09/19/19 [id number] Ambulatory [place] [facility] [place] Repository 09/03/2017/09/05/19 [id number] Ambulatory [place] [facility] [place] Repository 09/01/2017/09/05/19 [id number] Ambulatory [place] [facility] [place] Repository 08/29/2017/09/03/19 [id number] Ambulatory [place] [facility] [place] Repository 08/27/2017/08/29/19 [id number] Ambulatory [place] [facility] [place] Repository 08/25/2017/08/27/19 [id number] Ambulatory [place] [facility] [place] Repository 08/25/2017/08/26/19 [id number] Ambulatory [place] [facility] [place] Repository 08/20/2017/08/21/19 [id number] Ambulatory [place] 18 [facility] Main [place] Repository 08/18/2017/08/19/19 [id number] Ambulatory [place] [facility] [place] Repository 08/11/2017/08/13/19 [id number] Ambulatory [place] [facility] [place] Repository 08/11/2017/08/14/19 [id number] Ambulatory [place] [facility] [place] Repository 08/11/2017/08/13/19 [id number] Ambulatory [place] 18 [facility] [place] Repository 08/05/2017/08/06/19 [id number] Ambulatory [place] 18 [facility] [place] Repository 07/31/2017/08/06/19 [id number] Ambulatory [place] 18 [facility] [place] Repository 07/28/2017/07/29/19 [id number] Ambulatory [place] 18 [facility] Main [place] Repository 07/28/2017/07/30/19 [id number] Ambulatory [address] Main [place] Repository 07/25/2017/07/26/19 [id number] Ambulatory [place] 18 [facility] Main [place] Repository 07/25/2017/07/31/19 [id number] Ambulatory [place] [facility] Main [place] Repository 07/22/2017/07/23/19 [id number] Ambulatory [place] [facility] Main [place] Repository 07/21/2017/07/23/19 [id number] Ambulatory [place] 18 [facility] [place] Repository 07/14/2017/07/14/19 [id number] Ambulatory [place] 18 [facility] [place] Repository 07/07/2017/07/07/19 [id number] Ambulatory [place] 18 [facility] [place] Repository 07/04/2017/07/14/19 [id number] [place], Inpatient [place] 18 KATHY A Encounter [facility] [place] Repository 07/03/2017 [id number] Benjie, Ambulatory BMSBuilding:Laura Alcazar MS.[facility] Repository 07/03/2017 [id number] [place], Ambulatory BMSBuilding:Laura Alcazar MS.[facility] Repository 07/03/2017/07/04/19 [id number] [place], [place] 18 [place] Encounter [facility] ing:PCURoom: Repository SDX350Vwl: 1 06/30/2017/07/01/19 [id number] Ambulatory [address] Repository 06/30/2017/07/01/19 [id number] Ambulatory [address] Repository 06/23/2017/06/23/19 [id number] Ambulatory [address] Repository 06/18/2017/06/18/19 [id number] Ambulatory [address] Repository 06/16/2017/06/17/19 [id number] Ambulatory [address] Repository 06/16/2017/06/16/19 [id number] Ambulatory [address] Repository PAYERS PAYERS ENCOUNTER GUARANTOR PAYER SUBSCRIBER SOURCE 05/25/2018 VAL S Primary VAL S [place] [id number] E Insurance:MEDICAL SALVAILDOB: [address], [place] Number: Repository [address]Com: 330 [id number] [phone] (HP) Date:[id number] [address]SP: 05/25/2018 Secondary NOT GIVENUNK [place] Insurance:SELF PAY [facility] Number: Effective Repository Date:2018-05-25 05/13/2018 VAL S Primary VAL S [place] [id number] E Insurance:MEDICAL SALVAILDOB: [address], [place] Number: Repository [address]Xyr: 330 [id number] [phone] (HP) Date:4304-44-09BK[address] [address]CB: 05/13/2018 Secondary NOT GIVENUNK [place] Insurance:SELF PAY [facility] Number: Effective Repository Date:2018-05-11 05/06/2018 VAL S Primary VAL S [place] [id number] E Insurance:MEDICAL SALVAILDOB: [place] [address], [place] Number: Repository [address]Aan: 330 [id number] [phone] (HP) Date:5374-24-83UM [address] [address]XB: 05/06/2018 Secondary NOT GIVENUNK [place] Insurance:SELF PAY [facility] Number: Effective Repository Date:2018-05-06 05/06/2018 VAL S Primary VAL Bright Kesha [id number] E Insurance:MEDICAL SALVAILDOB: [facility] [id number] Number: Repository [address]Kml: 330 [id number] [phone] (HP) Date:6127-80-81NR [address] [address]MF: 05/06/2018 Secondary NOT GIVENUNK [place] Insurance:SELF PAY [facility] Number: Effective Repository Date:2018-04-28 04/28/2018 VAL S Primary VAL Bright [place] [id number] E Insurance:MEDICAL SALVAILDOB: [facility] [id number] Number: Repository [address]Wvd: 330 [id number] [phone] (HP) Date:4017-80-48SA [address] [address]HA: 04/28/2018 Secondary NOT GIVENUNK [place] Insurance:SELF PAY [facility] Number: Effective Repository Date:2018-04-27 04/28/2018 VAL S Primary VAL S [place] [id number] E Insurance:MEDICAL SALVAILDOB: [facility] [id number] Number: Repository [address]Iro: 330 [id number] [phone] (HP) Date:4663-04-88BM [address] [address]IF: 04/28/2018 Secondary NOT GIVENUNK [place] Insurance:SELF PAY [facility] Number: Effective Repository Date:2018-04-28 04/27/2018 VAL S Primary VAL S [place] [id number] E Insurance:MEDICAL SALVAILDOB: [facility] [id number] Number: Repository [address]Eat: 330 [id number] [phone] (HP) Date:8049-82-85HF [address] [address]TO: 04/27/2018 Secondary NOT GIVENUNK [place] Insurance:SELF PAY [facility] Number: Effective Repository Date:2018-04-15 04/21/2018 VAL S Primary VAL S [place] [id number] E Insurance:MEDICAL SALVAILDOB: [facility] [id number] Number: Repository [address]Mcj: 330 [id number] [phone] (HP) Date:4225-55-71MQ [address] [address]IY: 04/21/2018 Secondary NOT GIVENUNK [place] Insurance:SELF PAY [facility] Number: Effective Repository Date:2018-04-15 04/21/2018 VAL S Primary VAL S [place] [id number] E Insurance:MEDICAL SALVAILDOB: [address] Number: Repository [id number]: 330 [id number] (HP) Date:8925-12-77BB [address] [address]LF: 04/21/2018 Secondary NOT GIVENUNK [place] Insurance:SELF PAY [facility] Number: Effective Repository Date:2018-04-21 04/15/2018 VAL S Primary VAL S K[place] [id number] E Insurance:MEDICAL SALVAILDOB: [address] Number: Repository [id number]: 330 [id number] [phone] (HP) Date:8681-12-69VV [address] [address]LL: 04/15/2018 Secondary NOT GIVENUNK [place] Insurance:SELF PAY [facility] Number: Effective Repository Date:2018-04-15 03/11/2018 VAL S Primary VAL S [place] [id number] E Insurance:MEDICAL SALVAILDOB: [facility] [id number] Number: Repository [address]Zea: 330 [id number] [phone] () Date:9131-47-97JG [address] [address]IL: 03/11/2018 Secondary NOT GIVENUNK [place] Insurance:SELF PAY [facility] Number: Effective Repository Date:2018-03-02 07/03/2017 Val Primary Val Kesha [id number] Insurance:MEDICAL SalvailDOB: [facility] 1798[place]02-[place] Number: Repository [address]Jmx: 330 [id number] () Date:4870-92-66NR[address] [address]UK: 07/03/2017 Secondary NOT GIVENUNK [place] Insurance:SELF PAY [facility] Number: Effective Repository Date:2017-07-03 07/03/2017 Val Primary Val K[place]ha [id number] E Insurance:MEDICAL SalvailDOB: [facility] [id number] Number: Repository [address]Crs: 330 [id number] () Date:6782-47-84WW [address] [address]ZA: 07/03/2017 Secondary NOT GIVENUNK [place] Insurance:SELF PAY [facility] Number: Effective Repository Date:2017-07-03 07/03/2017 Val Primary Val [place] [id number] E Insurance:MEDICAL SalvailDOB: [facility] [id number] Number: Repository [id number]: (244) [id number] [phone] () Date:3086-30-84OE [address] [place] [address]DK: 07/03/2017 Secondary NOT GIVENUNK [place] Insurance:SELF PAY [facility] Number: Effective Repository Date:2017-07-03
== END 2018-04-28 13:37 | disposition home or self-care (01) ==
LOC: SDC 07:58 → AC 07:59
PROVIDERS: Anesthesiology; Family Provider Internal Medicine; PCP Internal Medicine; Referring Provider Surgery; Visit Provider Surgery
PROC: (CPT 36558; principal; 2018-04-28 09:45)
DX: T86.11 Kidney transplant rejection (principal); N17.9 Acute kidney failure, unspecified; I12.9 Hypertensive chronic kidney disease with stage 1 through stage 4 chronic kidney disease, or unspecified chronic kidney disease; N18.4 Chronic kidney disease, stage 4 (severe); D63.1 Anemia in chronic kidney disease; K21.9 Gastro-esophageal reflux disease without esophagitis; F41.9 Anxiety disorder, unspecified; Z79.891 Long term (current) use of opiate analgesic; Z79.52 Long term (current) use of systemic steroids; Z79.899 Other long term (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 therapy; Z86.718 Personal history of other venous thrombosis and embolism; Z92.3 Personal history of irradiation; Z85.028 Personal history of other malignant neoplasm of stomach; Z87.891 Personal history of nicotine dependence; Z90.3 Acquired absence of stomach [part of]; Z99.2 Dependence on renal dialysis
CPT/HCPCS: 36558; 71045; 76000; 81025; C1750

== ENCOUNTER 2018-05-06 11:03 | Day surgery (SDC) | payer OTHER, SELFPAY ==
[2018-04-28 08:23] VITALS: BMI 16.0
[2018-05-06 11:16] LABS: Internal QC Validated? YES +Cl - CLEAR BKGD
[2018-05-06 11:18] LABS: Pregnancy, Urine Negative Negative
[2018-05-06 11:41] VITALS: BP 130/78; PULSE 95; RESP 18; TEMP 37; O2SAT 97; BMI 15.7
[2018-05-06] MEDS: Heparin Injection (Vial) 5,000 UNIT/ML VIAL 5000 UNIT (13:45)
[2018-05-06] MEDS: Bupivacaine Mpf 0.5% 30 ML VIAL (13:45)
--- NOTE | 2018-05-06 14:32 | PCM.OPRPT ---
Problem List (1) Renal transplant rejection Status: Acute Report of Operation Date of Procedure: 05/06/18 Pre-Operative Diagnosis: Renal transplant rejection, stage V renal failure Post-Operative Diagnosis: Same Surgery/Procedure Performed:: Left upper extremity stage I brachial basilic arteriovenous fistula creation Description of Surgical Findings:: Timeout and informed consent was obtained. 47-year-old female was taken the operative placement table underwent monitored anesthesia care. The left extremity was sterilely prepped and draped. Ultrasound was used to map out the course of the basilic vein and the brachial artery. 1% lidocaine mixed 50-50 with 0.5% Marcaine was used as a local anesthetic. A total of 7 cc was used. An oblique incision made in the left antecubital space sharp and blunt dissection was used to dissect free the basilic vein. This was borderline. Sharp and blunt dissection was used to identify the brachial artery. The patient received 4000 units of heparin intravenously. The basilic vein was ligated distally with a Hemoclip it was then spatulated. Peripheral vascular clamps were placed on the brachial artery and a 11 blade was used to make an arteriotomy which was extended with Carrillo scissors. A end-to-side vein to artery anastomosis was created with running 7-0 Prolene. Prior to completion there was good antegrade retrograde flow. There appeared to be good flow within the vein with a palpable pulse and thrill. Hemostasis was intact. The patient received 20-minute grams of protamine. The wound was closed with a deep suture of interrupted 3-0 Vicryl and then a running septic or 4 Monocryl. Steri-Strips Telfa tape dressings applied. Sponge and instrument and needle counts were reported to the surgeon to be correct. Blood loss was minimal. Hand was viable at the completion no apparent complication she was taken to the recovery area in satisfactory condition. Specimens none. Drains none. Blood loss minimal Martinez Jenkins M.D., F.A.C.S. Type of Anesthesia:: Local MAC Anesthesiologist: Aaron Breen
--- NOTE | 2018-05-06 14:37 | DCINST_ITS ---
Discharge Diet: Renal Diet Discharge Activity: May Not Drive - for 2-3 days or while taking narcotic pain medications., May Not Shower Lifting Restrictions: 5 pounds Keep extremity elevated above heart level: - - Keep arm elevated above the heart level for 3 days. Additional Activity Instructions:: Please leave your left forearm dressing in place for 2-3 days. You may then remove the dressing and leave the Steri-Strips on for an additional 1 week. Exercise her left hand with a stress ball daily. Call your doctor if your incision/area has: Continuous Slow Oozing, Sudden Increased Bleeding - apply pressure and call your doctor., Increased Pain/ Swelling, Increased Redness, Foul Smelling Discharge Call your doctor if you observe: Fever of 101 or Higher Allergies/Adverse Reactions: Allergies Sulfa (Sulfonamide Antibiotics) Allergy (Verified 05/05/18 08:45) Hives NSAIDS (Non-Steroidal Anti-Inflamma Adverse Reaction (Verified 05/05/18 08:45) Other Medications to take at Discharge Calcium Citrate/Vitamin D3 [Calcium Citrate - Vit D Caplet] 1 ea PO BID 07/03/17 Cholecalciferol (Vitamin D3) [Vitamin D3] 50,000 unit PO UD 07/03/17 Cyanocobalamin [Vitamin B12] 1,000 mcg IM Q30D 07/03/17 Dronabinol [Marinol] 2.5 mg PO 4X/DAY 07/03/17 Esomeprazole Mag Trihydrate [Nexium] 40 mg PO DAILY 07/03/17 Gabapentin [Neurontin] 300 mg PO BIDCM 07/03/17 Levonorgestrel [Mirena] 1 each VAGINAL UD 07/03/17 Lipase/Protease/Amylase [Karina Dallas 12,000 Units Capsule] 1 ea PO TID 07/03/17 Oxycodone [Oxyir] 5 mg PO Q8H PRN 07/03/17 Prednisone 5 mg PO DAILY 07/03/17 Vits [Prenatabs FA ] 1 tab PO DAILY 07/03/17 Sodium Bicarbonate 650 mg PO TID 07/03/17 Tacrolimus [Astagraf Xl] 1 mg PO BREAKFAST 07/03/17 Tacrolimus [Envarsus Xr] 1 mg PO DINNER 07/03/17 Tizanidine HCl [Zanaflex] 4 mg PO Q6H 04/27/18 amlodipine 2.5 mg tablet 10 mg PO DAILY tab 04/27/18 Biotin 10,000 mcg PO DAILY 05/05/18 Iron Polysaccharide Complex [Ferrex 150] 150 mg PO DAILYCM 05/05/18 Primary Care Physician: Deb Gregory MD [Primary Care Provider] - Test Results: Test results from this visit will be discussed in further detail at your follow- up appointment, if applicable. Please Follow Up With: Martinez Jenkins MD - [phone] When: Call to make an appointment for suture removal and follow up in 1 week.
[2018-05-06 14:46] VITALS: BP 112/80; BP 130/78; PULSE 77; RESP 15; TEMP 37.1; O2SAT 93
[2018-05-06 15:00] VITALS: BP 118/81; BP 130/78; PULSE 76; RESP 16; O2SAT 93
[2018-05-06 15:15] VITALS: BP 122/81; BP 130/78; PULSE 81; RESP 16; TEMP 36.9; O2SAT 93
[2018-05-06 16:05] VITALS: BP 130/78
--- OUTSIDE RECORDS SUMMARY | 2018-08-07 15:12 | XMS RPT_ITS ---
:1970 Author Organization OHIP Support Name Relationship Address Phone KAITLYNN NIYAH Unavailable Unavailable + SALVPEDRO MEDARDO Unavailable [address] + [place] [address] UE Unavailable Unavailable Unavailable KAITLYNN NIYAH Unavailable . + [place] [address] SALVPEDRO, MEDARDO Unavailable [address] + [place] [address] UE Unavailable Unavailable Unavailable KAITLYNN, NIYAH Unavailable . + [place] [address] SALVPEDRO, MEDARDO Unavailable [address] + [place] [address] UE Unavailable Unavailable Unavailable KAITLYNN NIYAH Unavailable Unavailable + SALVAIL, MEDARDO Unavailable [address] + [place] [address] UE Unavailable Unavailable Unavailable KAITLYNN NIYAH Unavailable Unavailable + SALVAIL, MEDARDO Unavailable [address] + [place] [address] UE Unavailable Unavailable Unavailable KAITLYNN, NIYAH Unavailable Unavailable + SALVAIL, MEDARDO Unavailable [address] + [place] [address] UE Unavailable Unavailable Unavailable KAITLYNN, NIYAH Unavailable Unavailable + [place] [address] SALVAIL, MEDARDO Unavailable [address] + [place] [address] UE Unavailable Unavailable Unavailable SALVAIL, MEDARDO Unavailable [address] + [place] [address] UE Unavailable Unavailable Unavailable SALVAIL, MEDARDO Unavailable [address] + [place] [address] UE Unavailable Unavailable Unavailable NIYAH CALDERÓN Unavailable Unavailable + [place] [address] SALVAIL, MEDARDO Unavailable [address] + [place] [address] UE Unavailable Unavailable Unavailable SALVAIL, MEDARDO Unavailable [address] + [place] [address] UE Unavailable Unavailable Unavailable SALVAIL, MEDARDO Unavailable [address] + [place] [address] UE Unavailable Unavailable Unavailable [facility] Unavailable [address] [facility] + [place] [address] SALVAIL, MEDARDO Unavailable [address] + [place] [address] [facility] Unavailable [address] [facility] + [place] [address] SALVAIL, MEDARDO Unavailable [address] + [place] [address] [facility] Unavailable [address] [facility] + [place] [address] ABRAM, MEDARDO Unavailable [address] + [place] [address] Care Team Providers Name Role Phone BHAVESH TIANMAN Referring Unavailable ASMITA, LAPMAN Referring Unavailable ANDREY BARAJAS Attending Unavailable DUY DUMAS ([facility]) Attending Unavailable GANDEB, WIL Referring Unavailable ASMITA, LAPMAN Referring Unavailable ASMITA, LAPMAN Referring Unavailable KATHY LOUIS Admitting Unavailable SHANEL MCGARRY) Attending Unavailable ALEJO OLVERA Referring Unavailable SHANEL MCGARRY) Referring Unavailable DUY DUMAS ([facility]) Attending Unavailable ANDREY BARAJAS Attending Unavailable ANDREY BARAJAS Referring Unavailable KERI ADAME ([facility]) Attending Unavailable DAYANNA JORDAN Referring Unavailable BRYAN KOO ([facility]) Referring Unavailable ASMITA, LAPMAN Referring Unavailable BRYAN KOO ([facility]) Attending Unavailable ANDREY BARAJAS Attending Unavailable VANI BALDWIN Attending Unavailable KERI ADAME ([facility]) Referring Unavailable ASMITA, LAPMAN Referring Unavailable ASMITA, LAPMAN Referring Unavailable DEEPKERI (BORDER MACHINE OPERATOR) Referring Unavailable ASMITA, LAPMAN Referring Unavailable LARD, BRYAN Ruggiero (BORDER MACHINE OPERATOR) Referring Unavailable ASMITA, LAPMAN Referring Unavailable ASMITA, LAPMAN Attending Unavailable ASMITA, LAPMAN Referring Unavailable BALDWINVANI Attending Unavailable ADAMEKERI (BORDER MACHINE OPERATOR) Referring Unavailable ASMITA, LAPMAN Referring Unavailable ASMITA, LAPMAN Referring Unavailable ASMITA, LAPMAN Referring Unavailable ASIA MENDOZA ([facility]) Attending Unavailable VANI BALDWIN Referring Unavailable ASMITA, LAPMAN Referring Unavailable ASMITA, LAPMAN Referring Unavailable PITERDUY (BORDER MACHINE OPERATOR) Referring Unavailable LARD, BRYAN Ruggiero (BORDER MACHINE OPERATOR) Referring Unavailable ASMITA, LAPMAN Referring Unavailable ASMITA, LAPMAN Referring Unavailable LARD, BRYAN Ruggiero (BORDER MACHINE OPERATOR) Attending Unavailable HUMBERTO GOODE Referring Unavailable ASMITA, LAPMAN Referring Unavailable PIERSON, AUSTEN F Attending Unavailable BAGANDREY PARHAME Referring Unavailable LARD, BRYAN Ruggiero (BORDER MACHINE OPERATOR) Referring Unavailable ASMITA, LAPMAN Referring Unavailable ASMITA, LAPMAN Referring Unavailable GANTA, WIL Attending Unavailable GANTA, WIL Referring Unavailable ASMITA, LAPMAN Referring Unavailable ASMITA, LAPMAN Referring Unavailable LARD, BRYAN Ruggiero (BORDER MACHINE OPERATOR) Referring Unavailable ASMITA, LAPMAN Referring Unavailable ASMITA, LAPMAN Referring Unavailable PIERSON, AUSTEN F Attending Unavailable PIERSON, AUSTEN F Referring Unavailable ASMITA, LAPMAN Referring Unavailable ASMITA, LAPMAN Referring Unavailable LARD, BRYAN Ruggiero (BORDER MACHINE OPERATOR) Referring Unavailable BAGANDREY PARHAME Attending Unavailable ANDREY BARAJASE Referring Unavailable LARD, BRYAN Ruggiero (BORDER MACHINE OPERATOR) Attending Unavailable LARD, BRYAN Ruggiero (BORDER MACHINE OPERATOR) Referring Unavailable ASMITA, LAPMAN Referring Unavailable ASMITA, LAPMAN Referring Unavailable ASMITA, LAPMAN Referring Unavailable ASMITA, LAPMAN Referring Unavailable ASMITA, LAPMAN Referring Unavailable ASMITA, LAPMAN Referring Unavailable PIERSON, AUSTEN F Attending Unavailable PIERSON, AUSTEN F Referring Unavailable EMIR FOWLER Attending Unavailable KERI ADAME (BORDER MACHINE OPERATOR) Referring Unavailable LARD, BRYAN Ruggiero (BORDER MACHINE OPERATOR) Referring Unavailable ASMITA, LAPMAN Attending Unavailable ASMITA, LAPMAN Referring Unavailable ASMITA, LAPMAN Referring Unavailable GANTA, WIL Referring Unavailable ADAMEKERI (BORDER MACHINE OPERATOR) Attending Unavailable GANTA, WIL Referring Unavailable GANTA, WIL Referring Unavailable ASMITA, LAPMAN Referring Unavailable ASMITA, LAPMAN Referring Unavailable GANTA, WIL Referring Unavailable GANTA, WIL Attending Unavailable LARD, BRYAN Ruggiero (BORDER MACHINE OPERATOR) Referring Unavailable DELVIS HAMEED Attending Unavailable ALEX TIAN Referring Unavailable ASMITA, ALEX Referring Unavailable AUSTEN PIERSON Referring Unavailable Cebul, Martinez Attending Unavailable Cebul, Martinez Referring Unavailable Ganta, Wil Primary Care Unavailable Cebul, Martinez Attending Unavailable Cebul, Martinez Referring Unavailable Ganta, Wil Primary Care Unavailable Cebul, Martinez Attending Unavailable Cebul, Martinez Referring Unavailable Ganta, Wil Primary Care Unavailable Cebul, Martinez Consulting Unavailable Davis PA-C, Asia Attending Unavailable Ganta, Wil Referring Unavailable Davis PA-C, Asia Attending Unavailable Ganta, Wil Referring Unavailable Cebul, Martinez Attending Unavailable Cebul, Martinez Referring Unavailable Ganta, Wil Primary Care Unavailable Ganta, Wil Primary Care Unavailable Imamura, Yoichi Admitting Unavailable Marietta Mcdaniel Consulting Unavailable JoDionte crespo Attending Unavailable Imamura, Yoichi Admitting Unavailable Ganta, Wil Primary Care Unavailable Imamura, Yoichi Consulting Unavailable Paintsil, Versailles Attending Unavailable Imamura, Yoichi Admitting Unavailable Ganta, Wil Primary Care Unavailable Marietta Mcdaniel Consulting Unavailable JojewelleriDionte Attending Unavailable JoDionte crespo Consulting Unavailable Duy Dumas Attending Unavailable Duy Dumas Referring Unavailable Ganta, Wil Primary Care Unavailable Marietta Mcdaniel Attending Unavailable Ganta, Wil Primary Care Unavailable Marietta Mcdaniel Attending Unavailable Jonas, Marietta Referring Unavailable Ganta, Wil Primary Care Unavailable Cebul, Martinez Attending Unavailable Jonas, Marietta Referring Unavailable Cebul, Martinez Attending Unavailable Cebul, Martinez Referring Unavailable Cebul, Martinez Attending Unavailable Jonas, Marietta Referring Unavailable PROBLEMS PROBLEMS DATE TYPE CONDITION / CODE ATTENDING STATUS SOURCE 06/10/2018 Unknown I77.0 - Arteriovenous Cebul, Martinez Active [place] fistula, acquired / Community I77.0(ICD-10) Hospital Repository 06/10/2018 Unknown N18.5 - Chronic Cebul, Martinez Active [place] kidney disease, stage Community 5 / N18.5(ICD-10) Hospital Repository 04/27/2018 Unknown 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, 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 Community / T86.11(ICD-10) Hospital Repository 04/06/2018 Active Chronic kidney DELVIS HAMEED Active [place] disease, stage 5 / Clinic Main N18.5(ICD-10) [place] Repository 04/06/2018 Active Gastric ulcer, DELVIS HAMEED Active [facility] unspecified as acute Clinic Main or chronic, without [place] hemorrhage or Repository perforation / K25.9(ICD-10) 01/23/2018 Active Vitamin B12 AUSTEN PIERSON Active [facility] deficiency anemia due Clinic Main to intrinsic factor [place] deficiency / Repository D51.0(ICD-10) 12/30/2016 Active Essential (primary) AUSTEN PIERSON Active [facility] hypertension / Clinic Main I10(ICD-10) [place] Repository 12/30/2017 Active Other specified soft NA Active [facility] tissue disorders / Clinic Other M79.89(ICD-10) [place] Repository 12/23/2017 Active Encounter for BRYAN KOO Active [facility] screening for other L (BORDER MACHINE OPERATOR) Clinic Main disorder / [place] Z13.89(ICD-10) Repository 12/23/2017 Active Vitamin D deficiency, BRYAN KOO Active [facility] unspecified / L (BORDER MACHINE OPERATOR) Clinic Main E55.9(ICD-10) [place] Repository 12/23/2017 Active Candidal esophagitis BRYAN KOO Active [facility] / B37.81(ICD-10) L (BORDER MACHINE OPERATOR) Clinic Main [place] Repository 12/23/2017 Active Chronic gastric ulcer ANDREY BARAJAS Active [facility] without hemorrhage or [facility] perforation / [place] K25.7(ICD-10) Repository 08/27/2017 Active Acquired absence of AUSTEN PIERSON Active [facility] stomach (part of) / Clinic Main Z90.3(ICD-10) [place] Repository 12/11/2017 Active Other specified AUSTEN PIERSON Active [facility] disorders of bone Clinic Main density and [place] structure, Repository unspecified site / M85.80(ICD-10) 10/06/2017 Active Non-pressure chronic NA Active [facility] ulcer of skin of Clinic Main other sites with [place] unspecified severity Repository / L98.499(ICD-10) 10/06/2017 Active 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, unspecified Clinic Main / B25.9(ICD-10) [place] Repository 10/06/2017 Active Other specified AUSTEN PIERSON Active [facility] postprocedural states Clinic Main / Z98.890(ICD-10) [place] Repository 09/15/2017 Active Pneumonia, NA Active [facility] unspecified organism Clinic Main / J18.9(ICD-10) [place] Repository 09/15/2017 Active Shortness of breath / NA Active [place] R06.02(ICD-10) Clinic Main [place] Repository 08/27/2017 Active Anemia in chronic NA Active [place] kidney disease / Clinic Main D63.1(ICD-10) [place] Repository 08/27/2017 Active Chronic kidney NA Active [place] disease, stage 4 Clinic Main (severe) / [place] N18.4(ICD-10) Repository 07/05/2017 Active Chronic kidney NA Active [place] disease, unspecified Clinic Main / N18.9(ICD-10) [place] Repository 07/05/2017 Active Personal history of NA Active [facility] other malignant Clinic Main neoplasm of stomach / [place] Z85.028(ICD-10) Repository 12/04/2015 Active Chronic kidney NA Active [place] disease, stage 3 Clinic Main (moderate) / [place] N18.3(ICD-10) Repository 08/20/2017 Active Other cytomegaloviral NA Active [place] diseases / Clinic Main B25.8(ICD-10) [place] Repository 08/18/2017 Active Encounter for NA Active [facility] screening for [facility] 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 / [place] Z13.820(ICD-10) Repository 07/25/2017 Active Encounter for NA Active [facility] screening mammogram Clinic [facility] for malignant [place] neoplasm of breast / Repository Z12.31(ICD-10) 07/22/2017 Active Gastro-esophageal ANDREY BARAJAS Active [facility] reflux disease [facility] without esophagitis / [place] K21.9(ICD-10) Repository 07/14/2017 Active Bacteremia / SHANEL MCGARRY Active [place] R78.81(ICD-10) () Clinic Main [place] Repository 07/14/2017 Active Acute kidney failure, SHANEL MCGARRY Active [place] unspecified / () Clinic Main N17.9(ICD-10) [place] Repository 07/14/2017 Active Other specified SHANEL MCGARRY Active [place] diseases of pancreas () Clinic Main / K86.89(ICD-10) [place] Repository 07/14/2017 Active Unspecified severe SHANEL MCGARRY Active [place] protein-calorie () Clinic Main malnutrition / [place] E43(ICD-10) Repository 07/14/2017 Active Kidney transplant SHANEL MCGARRY Active [place] status / () Clinic Main Z94.0(ICD-10) [place] Repository 07/05/2017 Active Thrombocytopenia, SHANEL MCGARRY [facility] unspecified / () Clinic Main D69.6(ICD-10) [place] Repository 07/04/2017 Active Acute respiratory KATYA MCGARRYH Active [facility] failure with hypoxia () Clinic Main / J96.01(ICD-10) [place] Repository 07/04/2017 Active Acute [facility] / ([facility] J80(ICD-10) [place] Repository 07/04/2017 Active Influenza [facility] novel () [facility] influenza A virus [place] with pneumonia / Repository J09.X1(ICD-10) 07/04/2017 Active Influenza due to SHANEL MCGARRY [facility] other identified () Clinic Main influenza virus with [place] other respiratory Repository manifestations / J10.1(ICD-10) 07/04/2017 Active Other 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 block assembler [facility] (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 () [facility] therapy / [place] Z79.899(ICD-10) Repository 07/04/2017 Active Streptococcal [facility] infection, () Clinic [facility] unspecified site / [place] A49.1(ICD-10) Repository 07/04/2017 Active Unspecified BRANDONSHANEL KEARNEY [facility] streptococcus as the () Clinic Main cause of diseases [place] classified elsewhere Repository / B95.5(ICD-10) 07/04/2017 Active Encounter for BRANDONSHANEL KEARNEY [facility] aftercare following () Clinic Main kidney transplant / [place] Z48.22(ICD-10) Repository 06/23/2017 Active Unknown / DUY DUMAS [facility] UNK(Unknown) (BORDER MACHINE OPERATOR) Clinic Main [place] Repository PROCEDURES PROCEDURES No Procedure Records FoundRESULTS RESULTS DISCHARGE INSTRUCTION Observed: 06/11/2018 Status: F Source: [place] 6:10 AM [facility] REPOSITORY [facility] Medical Records Department [address] [place] [address] Instructions for Home/Discharge Instructions 06/10/18 1229 MR#: [id number] Acct: [id number] Name: VAL VALVERDE Rep #: [id number] : 1970 47 From: Martinez Jenkins MD PCP: Wil To MD Status: [facility] <Martinez Jenkins - Last Filed: 06/10/18 12:29> Discharge Diet: Renal Diet Discharge Activity: May Not Drive - for 2-3 days or while taking narcotic pain medications., May Shower, May Take a Tub Bath - in 5 days. Lifting Restrictions: 5 pounds Keep extremity elevated above heart level: - - Keep arm elevated above the heart level for 3 days. Additional Activity Instructions:: Exercise hand vigorously with a stress ball. Call your doctor if your incision/area has: Continuous Slow Oozing, Sudden Increased Bleeding - apply pressure and call your doctor., Increased Pain/ Swelling, Increased Redness, Foul Smelling Discharge Call your doctor if you observe: Fever of 101 or Higher Suture Line Care: Avoid Pulling/Pushing, Avoid Pinching/Bending Cleanse incision/area with: Keep Dressing Clean AND Dry Additional Dressing/Incision Instructions:: Change or remove dressing in two days. Elevate your arm for comfort, May redress the incision with gauze and tape. Leave the steri strips on for one week. Allergies/Adverse Reactions: Allergies Sulfa (Sulfonamide Antibiotics) Allergy (Verified 06/03/18 15:02) Hives NSAIDS (Non-Steroidal Anti-Inflamma Adverse Reaction (Verified 06/03/18 15:02) Other Medications to take at Discharge Calcium [...] mg PO BIDCM 07/03/17 Levonorgestrel [Mirena] 1 ea VAGINAL UD 07/03/17 Lipase/Protease/Amylase [Creon Dr 12,000 Units Capsule] 1 ea PO TID 07/03/17 Prednisone 5 mg PO DAILY 07/03/17 Vits [Prenatabs FA ] 1 tab PO DAILY 07/03/17 Tizanidine HCl [Zanaflex] 4 mg PO BID 04/27/18 amlodipine 2.5 mg tablet 10 mg PO DAILY tab 04/27/18 Biotin 10,000 mcg PO DAILY 05/05/18 B Complex W-C No.20/Folic Acid [Virt-Caps Softgel] 1 mg PO QHS 06/03/18 Hydrocodone/Acetaminophen [Hydrocodone-Acetamin 5-325 mg] 1 each PO TID PRN 06/03/18 Tacrolimus 1 mg PO BID 06/03/18 Oxycodone [Oxyir] 5 mg PO Q6H PRN PRN 3 Days #10 tablet 06/10/18 The following prescriptions were given: Oxycodone [Oxyir] 5 mg PO Q6H PRN PRN 3 Days #10 tablet PRN Reason: Pain Orders to be completed after discharge: ,Urine Time Frame: 06/10/18, Location: Laboratory Primary Care Physician: Wil To MD [Primary Care Provider] - Test Results: Test results from this visit will be discussed in further detail at your follow-up appointment, if applicable. Please Follow Up With: Martinez Jenkins MD - [phone] When: Call to make an appointment for suture removal and follow up in 7-10 days. <Asia Davis - Last Filed: 06/10/18 16:01> Test Results: Test results from this visit will be discussed in further detail at your follow-up appointment, if applicable. 06/11/18 0610 <Electronically signed by Martinez Jenkins MD> Date Martinez Jenkins MD CC: Wil To MD Signed OPERATIVE REPORT Observed: 06/11/2018 Status: F Source: [place] 6:10 AM [facility] REPOSITORY [facility] Medical Records Department [address] [place] [address] Operative Report 06/10/18 1233 MR#: [id number] Acct: [id number] Name: VAL VALVERDE Rep #: [id number] : 1970 47 From: Martinez Jenkins MD PCP: Wil To MD Status: [facility] [place] Location: [facility] Problem List (1) Chronic renal failure, stage 5 Status: Chronic Report of Operation Date of Procedure: 06/10/18 Pre-Operative Diagnosis: Stage V chronic renal failure Post-Operative Diagnosis: Same Surgery/Procedure Performed:: Stage II transposition left upper extremity basilic vein to brachial artery arteriovenous hemodialysis fistula creation Description of Surgical Findings:: Timeout and informed consent was obtained. 47-year-old female taken the operating placement table underwent monitored anesthesia care local anesthetic. The left upper extremity sterilely prepped and draped. 1% lidocaine mixed 50-50 with 0.5% Marcaine was used as local anesthetic. A total 16 cc was used. Previously ultrasound was used to identify the basilic vein. Local was instilled a longitudinal incision was made up the left upper arm. Sharp and blunt dissection was used to tediously dissect free the basilic vein. Side branches were secured with 3-0 Vicryl ligatures and hemoclips were indicated. The vein was dissected up to the axilla at a branching point. Then local was instilled to create a new tunnel more anteriorly and superficially. The vein was ligated at the antecubital space with a 3-0 Vicryl. The vein was then tunneled had a good positional lie. At that spot sharp blunt dissection a bit utilized to identify the brachial artery and circumferential control was obtained. There was good positional lie of the vein. Patient received 4000 units of heparin. Peripheral vascular clamps were placed on the brachial artery and 11 blade was used to make an arteriotomy which was extended with Carrillo scissors. A end-to-side venous to arterial anastomosis was created with running 7-0 Prolene. There was good hemostasis. At the completion there was a good palpable thrill and yet still a 3+ left radial pulse. Good positional lie. Patient received 30 mg of protamine as reversal agent. The deep wound was treated with FloSeal. The wound was closed in layers with multiple interrupted 3-0 Vicryl in a running septic or 4-0 Monocryl. Steri-Strips Telfa ABD soft roll Jayjay wrap applied. Sponge and instrument and needle counts were reported the surgeon be correct. Blood loss was 300 cc. Most of this from diffuse oozing from skin and soft tissues. She tolerated procedure well was taken to the recovery area in satisfactory condition no apparent complication. Specimens none. Drains none. Blood loss 300 cc. Martinez Jenkins M.D., F.A.C.S. Type of Anesthesia:: Local MAC Anesthesiologist: Yesenia Sánchez 06/11/18 0610 <Electronically signed by Martinez Jenkins MD> Date Martinez Jenkins MD CC: Wil To MD; Martinez Jenkins MD Signed BASIC METABOLIC Collected: 06/10/2018 Status: F Source: [place] PROFILE ([facility]) 8:30 AM [facility] REPOSITORY TYPE CODE TESTS RESULT OUT OF RANGE REFERENCE UNITS LAB L501.0100 74-106 mg/dL Normal GLU 77 Result Comment: Please note revised GLUCOSE reference range effective 2017. LAB L501.1000 7-18 mg/dL High BUN 22 LAB L501.1100 0.55-1.02 mg/dL High CREAT,SERUM 3.82 Result Comment: The validity of the calculated GFR AND GFRAA in patients over 70 years has not been determined. Clinical correlation is essential. LAB L501.1110 >60 mL/min Low EST GFR 14 Result Comment: Non- GFR Calc LAB L501.1115 >60 mL/min Low EST GFR - AA 16 Result Comment: GFR Calc LAB L501.1255 ml/min Normal Estimated CRCL 9.22 LAB L501.1300 10-20 RATIO Low BUN/CRE 5.8 LAB L501.2200 8.5-10. mg/dL Low 1 CA 8.3 LAB L501.5300 136-145 mmol/L Normal NA 139 LAB L501.5600 3.5-5.1 mmol/L Normal K 3.7 LAB L501.5900 98-107 mmol/L Normal CL 104 LAB L501.6100 21.0-32 mmol/L Normal .0 CO2 27.0 LAB L501.6200 5-15 Normal GAP 8 Performed By: #### L500.2500 #### [facility] [address] [place], [place], [address] CBC-COMPLETE BLOOD CNT Collected: 06/10/2018 Status: F Source: [place] NO DIFF 8:30 AM [facility] REPOSITORY TYPE CODE TESTS RESULT OUT OF RANGE REFERENCE UNITS LAB L100.1000 4.4-11.0 K/mm3 Normal WBC 10.7 LAB L100.1200 4.2-5.4 M/mm3 Low RBC 2.82 LAB L100.1300 12.0-15.0 g/dl Low HGB 10.6 LAB L100.1400 37-47 % Low HCT 33.0 LAB L100.1500 81-99 fL High MCV 117.0 LAB L100.1600 27.0-32.0 pg High MCH 37.6 LAB L100.1700 32-36 g/gl Normal MCHC 32.1 LAB L100.1810 11.6-14.6 % High RDW CV 15.5 LAB L100.1820 35.1-43.9 fl High RDW SD 62.9 LAB L100.1900 150-450 K/mm3 Low PLT 147 LAB L100.2000 6.2-12.0 fl Normal MPV 10.5 Performed By: #### L100.0500 #### [facility] [address] [place], [address] ,URINE Collected: 06/10/2018 Status: F Source: [place] 8:22 AM [facility] REPOSITORY TYPE CODE TESTS RESULT OUT OF REFERENCE UNITS RANGE LAB L400.8000 Negative Normal HCGUQUAL Negative Result Comment: Very dilute urine specimens, as indicated by a low specific gravity, may not contain traffic representative levels of hCG. If is still suspected, a first morning urine specimen should be collected 48 hours later and tested. Performed By: #### L400.7600 #### [facility] [address] [place], [place], [address] PROGRESS Observed: 06/04/2018 Status: COMPLETED Source: [place] 4:56 PM [facility] REPOSITORY HNO ID: [id number] Author: Cornell BoggsRn) DICK Clarke Service: (none) Author Type: Registered Nurse Type: Progress Notes Filed: 06/04/2018 5:07 PM Note Text: New Referral Referring Physician Dr. Marietta Mcdaniel Organ Type kidney ESRD Yes. 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 Yes Name of Dialysis Facility: [facility] [address] [place] [address] Diabetes No. Current BMI 15.1 Previous Transplant Yes Date of Last Transplant 02/21/2010 [facility] @ [facility] Currently Listed? No. Facility: N/A Willing to accept blood transfusion? Yes Potential Living Donor? No Full transplant evaluation? Yes Nephrology Screen Required? No If yes to nephrology screen, reason: N/A IRAIS Rendon RN Pre-Kidney AND Pancreas [facility] SURGERY VISIT REPORT Observed: 05/27/2018 Status: F Source: [place] 4:14 PM [facility] REPOSITORY [facility] [facility] [address] [place], [place] [address]all [facility]. [address] [place] [address] OFFICE VISIT Date of Service: 05/25/18 MR#: [id number] Acct: [id number] Name: ABRAMVAL Deangelo Rep #: [id number] : 1970 Provider: Asia Davis PA-C Age/Sex: 47/F Location: [facility] Status: Signed Intake Vital Signs05/25/18 Body Mass [...] VAGINAL UD 07/03/17 [History Confirmed 05/25/18] Lipase/Protease/Amylase [Karina Dallas 12,000 Units Capsule] 1 [...] comfortable, no acute distress Nutritional Appearance: cachectic [facility] Head: normal to inspection Eyes General: appearance [...] VISIT REPORT Observed: 05/13/2018 Status: F Source: [place] 1:49 PM [facility] REPOSITORY [facility] [address] [place] [address] [address] [place] [address] OFFICE VISIT Date of Service: 05/13/18 MR#: [id number] Acct: [id number] Name: UNIQUEPEDROVAL Bright Rep #: [id number] : 1970 Provider: Asia Davis PA-C Age/Sex: 47/F Location: [facility] Status: Signed Intake Intake Visit Reasons: Fistula Placment 05/06 Safety Aide Required: No Is patient in pain?: No [...] on dialysis T, TH, and SAT at [facility]. Patient currently has tunneled dialysis catheters. Objective [...] Chronic renal failure, stage 5 N18.5 05/13/18 1349 <Electronically signed by Asia Davis PA-C> Date Asia Davis PA-C Cosigner Signature: Date (if applicable) CC: DISCHARGE INSTRUCTION Observed: 05/07/2018 Status: F Source: [place] 2:44 PM [facility] REPOSITORY [facility] Medical Records Department [address] [place] [address] [place] [address] Instructions for Home/Discharge Instructions 05/06/18 1435 MR#: [id number] Acct: [id number] Name: VAL VALVERDE Rep #: [id number] : 1970 47 From: Martinez Jenkins MD PCP: Wil To MD Status: DEP [facility] Discharge Diet: Renal Diet Discharge Activity: May [...] Follow Up With: Martinez Jenkins MD - [phone] When: Call to make an appointment for suture removal and follow up in 1 week. 05/07/18 1444 <Electronically signed by Martinez Jenkins MD> Date Martinez Jenkins MD CC: Wil To MD OPERATIVE REPORT Observed: 05/06/2018 Status: F Source: [place] 2:35 PM [facility] REPOSITORY [facility] Medical Records Department [address] [place] [address] Operative Report 05/06/18 1432 MR#: [id number] Acct: [id number] Name: VAL VALVERDE Rep #: [id number] : 1970 47 From: Martinez Jenkins MD PCP: Wil To MD Status: REG [facility] Y Location: [place] [address] Problem List (1) Renal transplant rejection Status: [...] Anesthesia:: Local MAC Anesthesiologist: Aaron Breen 05/06/18 7474 <Electronically signed by Martinez Jenkins MD> Date Martinez Jenkins MD CC: Wil To MD; Martinez Jenkins MD Signed ,URINE Collected: 05/06/2018 Status: F Source: [place] 11:10 AM [facility] REPOSITORY TYPE CODE TESTS RESULT OUT OF REFERENCE UNITS RANGE LAB L400.8000 Negative Normal HCGUQUAL Negative Result Comment: Very dilute urine specimens, as indicated by a low specific gravity, may not contain traffic representative levels of hCG. If is still suspected, a first morning urine specimen should be collected 48 hours later and tested. Performed By: #### L400.7600 #### [facility] [address] [place], [address] DISCHARGE INSTRUCTION Observed: 04/29/2018 Status: F Source: [place] 9:00 AM [facility] REPOSITORY [facility] Medical Records Department [address] [place] [address] Instructions for Home/Discharge Instructions 04/28/18 0947 MR#: [id number] Acct: [id number] Name: VAL VALVERDE Rep #: [id number] : 1970 47 From: Martinez Jenkins MD PCP: Wil To MD Status: DEP [facility] Discharge Activity: May Not Shower Lifting Restrictions: [...] Follow Up With: Martinez Jenkins MD - [phone] When: Further office follow-up will be scheduled after your fistula 04/29/18 0900 <Electronically signed by Martinez Jenkins MD> Date Martinez Jenkins MD CC: Wil To MD OPERATIVE REPORT Observed: 04/29/2018 Status: F Source: [place] 9:00 AM [facility] REPOSITORY [facility] Medical Records Department [address] [place] [address] Operative Report 04/28/18 1035 MR#: [id number] Acct: [id number] Name: VAL VALVERDE Rep #: [id number] : 1970 47 From: Martinez Jenkins MD PCP: Wil To MD Status: [facility] Y Location: [facility] Problem List (1) Renal transplant rejection Status: [...] LINE PLACEMENT Observed: 04/28/2018 Status: F Source: [place] 9:53 AM [facility] REPOSITORY [facility] Imaging Services [address] [place] [address] CXR for Line Placement MR#: [id number] Acct: [id number] Name: VAL VALVERDE Rep #: [id number] : 1970 F 47 From: Vikas Haney MD PCP: Wil To MD Status: [facility] Study: CXR for Line Placement Date of Exam: 04/28/18 Exam# [id number] Ordering Dr: Martinez Jenkins MD STUDY: X-RAY [...] Vikas Haney MD at 11:03 EST Tel [phone], Service support , CC: Wil To MD; Martinez Jenkins MD Smoke And Flame Specialist: Signed ,URINE Collected: 04/28/2018 Status: F Source: [place] 8:10 AM [facility] REPOSITORY Order Comment: Reason for Laboratory Test PRE-OP TYPE CODE TESTS RESULT OUT OF REFERENCE UNITS RANGE LAB L400.8000 Negative Normal HCGUQUAL Negative Result Comment: Very dilute urine specimens, as indicated by a low specific gravity, may not contain traffic representative levels of hCG. If is still suspected, a first morning urine specimen should be collected 48 hours later and tested. Performed By: #### L400.7600 #### [facility] [address] [place], [address] SURGERY VISIT REPORT Observed: 04/27/2018 Status: F Source: [place] 4:28 PM [facility] REPOSITORY [facility] [address] [place] [address] OFFICE VISIT Date of Service: 04/27/18 MR#: [id number] Acct: [id number] Name: VAL VALVERDE Rep #: [id number] : 1970 Provider: Martinez Jenkins MD Age/Sex: 47/F Location: [facility] Status: Signed Intake Vital Signs04/27/18 Height 4 ft 11.5 in 04/27/18 Weight: 77 lb Intake Visit Reasons: Fistula Placement/Tunnel Cath, Vein Mapg [facility] tbd Safety Aide Required: No Is patient in pain?: No [...] fistula. On April 21, 2018 at the [facility] she had bilateral upper extremity vein [...] Comprehensive,moderate Diagnoses Renal transplant rejection T86.11 04/27/18 7928 <Electronically signed by Martinez Jenkins MD> Date Martinez Jenkins MD Cosigner Signature: Date (if applicable) CC: Wil To MD; Marietta Mcdaniel DO VENOUS DUPLEX UPPER Observed: 04/21/2018 Status: F Source: [place] EXTREMITY 12:52 PM [facility] REPOSITORY [facility] Cardiovascular Services [address] [place] [address] Saphenous Vein Mapping, Bilat 04/21/18 0830 MR#: [id number] Acct: [id number] Name: VAL VALVERDE Rep #: [id number] : 1970 47 From: Martinez Jenkins MD [...] Rosina Vee RVT and Student ? 04/21/18 125 Date Martinez Jenkins MD CC: Wil To MD; Marietta Mcdaniel DO Date Dictated: 04/21/18 0830 Date Transcribed: 04/21/181250 Smoke And Flame Specialist: Signed PTHIN Collected: 04/15/2018 Status: F Source: [place] 11:27 AM [facility] REPOSITORY TYPE CODE TESTS RESULT OUT OF RANGE REFERENCE UNITS LAB L509.1000 18.4-80.1 pg/mL High [place] 299.6 Performed By: #### L509.1000 #### [facility] [place], [address] HEPATITIS B SURFACE Collected: 04/15/2018 Status: F Source: [place] AG 11:27 AM [facility] REPOSITORY TYPE CODE TESTS RESULT OUT OF RANGE REFERENCE UNITS LAB L3100.0400 Negative Normal HB Negative SURF AG Result Comment: Performed at: - [facility] [id number] Sweeper Brush Maker Machine: Simón Bowers PhD, Phone: [phone] Performed By: #### L3100.0390, L3100.0528 #### [facility] (refer to report for specific site) refer to report for address and phone number HEP B SURFACE Collected: 04/15/2018 Status: F Source: [place] ANTIBODIES 11:27 AM [facility] REPOSITORY TYPE CODE TESTS RESULT OUT OF [...] [place] HEMOGLOBIN Collected: 04/13/2018 Status: F Source: [place] 12:07 PM [facility] REPOSITORY TYPE CODE TESTS RESULT OUT OF REFERENCE UNITS RANGE LAB WHGB 11.5-15.5 g/dL Low [place] Hemoglobin 9.4 Result Comment: Test performed at: [facility], [address] [place] [address] Rd[address] [place] [address]. [place] HEMATOCRIT Collected: 04/13/2018 Status: F Source: [place] 12:07 PM [facility] REPOSITORY TYPE CODE TESTS RESULT OUT OF REFERENCE UNITS RANGE LAB WHCT 36.0-46.0 % Low [place] Hematocrit 28.9 Result Comment: Test performed at: [facility], [address] [place] [address] Rd[address] [place] [address]. PROGRESS Observed: 04/06/2018 Status: COMPLETED Source: [place] 4:40 PM [facility] REPOSITORY HNO ID: [id number] Author: Delvis Hameed Service: (none) Author Type: [...] MD This note was partially generated using Cartavi voice recognition system, and there may be [...] PM CNOV Observed: 04/06/2018 Status: COMPLETED Source: [place] 4:00 PM [facility] REPOSITORY Office Visit (NEPHMN) VAL VALVERDE ([id number]) 1970 F TRN Date Time Provider Department [...] started on GNCV Last visit with Bryan Hanane on 12/23/17. No changes Her main issue [...] MD This note was partially generated using Cartavi voice recognition system, and there may be [...] stage 5, GFR less than 15 ml/min ([facility]) [N18.5] Other Visit Diagnoses:Kidney replaced by transplant [Z94.0] History of gastric cancer [Z85.028] Gastric ulcer, unspecified chronicity, unspecified whether gastric ulcer hemorrhage or perforation present [K25.9] Other cytomegaloviral diseases ([facility]) [B25.8] Immunosuppressive management encounter following kidney transplant [Z79.899, Z94.0] Order(s):tacrolimus (PROGRAF) 1 mg capsuleTake 1 capsule by mouth twice daily. - ICD 10 = Z94.0 kidney transplant 02/21/2010Disp: 270 capsuleRfl: 3 Prescriptions as of 04/06/2018 Sig: TACROLIMUS 1 MG CAPSULE Take 1 capsule by mouth twice* QJFTQS-SZJOQLFN-ALYYVDX 12,00* Take 1 capsule by mouth three* [...] ulcer disease with hemorrhage [K27.4] INVALID FOR*12/30/2016 Mivig-li-vaxzani kidney injury (HCC) [N17.9, N1*INVALID FOR*12/30/2016 More... [...] METABOLIC PANEL Collected: 04/06/2018 Status: F Source: [place] 11:56 AM [facility] REPOSITORY TYPE CODE [...] / FK506 Collected: 04/06/2018 Status: F Source: [place] 11:56 AM [facility] REPOSITORY TYPE CODE TESTS RESULT OUT [...] situation. Test performed by chemiluminescent immunoassay using [employer]. Performed By: #### FK506 #### [facility] [address] [place], [place] [address] PROGRESS Observed: 04/01/2018 Status: COMPLETED Source: [place] 5:21 PM [facility] REPOSITORY HNO ID: [id number] Author: Wil To Service: (none) Author Type: [...] (VITAMIN D3) 50,000 unit cap capsule - rndfkg-epdjlprb-smlxtgr (CREON 12) 12,000-38,000 -60,000 unit cpDR - [...] (HCC) - ICD9: 262, ICD10: E43 - QPIIQU-DEDPJDXH-OLRLXFX 12,000-38,000-60,000 UNIT CAPSULE,DELAYED REL - DRONABINOL 2.5 [...] MD CNOV Observed: 04/01/2018 Status: COMPLETED Source: [place] 4:40 PM [facility] REPOSITORY Office Visit (INTMWS) VLA VALVERDE ([id number]) 1970 F TRN Date Time Provider Department [...] (VITAMIN D3) 50,000 unit cap capsule - onpkhi-jajopyiv-guuhvtb (CREON 12) 12,000-38,000 -60,000 unit cpDR - [...] (HCC) - ICD9: 262, ICD10: E43 - YRGTHM-NWJFQHTX-PQSLSPT 12,000-38,000-60,000 UNIT CAPSULE,DELAYED REL - DRONABINOL 2.5 [...] neoplasm of stomach, unspecified location (HCC) [C16.9] Order(s):qcrvve-yfgjauqi-cbrubqx (CREON 12) 12,000-38,000 -60,000 unit cpDRTake 1 capsule by mouth three times daily.Disp: 90 capsuleRfl: 5 dronabinol (MARINOL) 2.5 mg capsuleTake 1 capsule by mouth four times daily for 30 days.Disp: 120 capsuleRfl: 0 amLODIPine (NORVASC) 10 mg tabletTake 1 tablet by mouth once daily.Disp: Rfl: Prescriptions as of 04/01/2018 Sig: ILNKPD-LZPKASVW-FZTWHHK 12,00* Take 1 capsule by mouth three* [...] ulcer disease with hemorrhage [K27.4] INVALID FOR*12/30/2016 Baeem-uq-jepqrtk kidney injury (HCC) [N17.9, N1*INVALID FOR*12/30/2016 More... [...] ordered this encounter Disp Refills Start End NVPVML-WEKQPHZP-EDOPXKB 12,000-38,00* 90 c* 5 04/01/2018 Route: ORAL [...] once daily. Medications Discontinued During This Encounter afopli-tciswuow-nmihcvy (CREON 12) 1* 90 c* 3 06/10/2016 04/01/2018 Route: ORAL Sig: Take 1 capsule by mouth three times daily with meals for 30 days. Disc: Reason for discontinue is not on file. oswlna-nebzwrxp-hpstrjp (CREON 12) 1* 07/03/2017 04/01/2018 Class: Historical [...] METABOLIC PANL Collected: 03/20/2018 Status: F Source: [place] 3:14 PM [facility] [place] REPOSITORY TYPE CODE TESTS RESULT OUT OF REFERENCE UNITS RANGE LAB GLU 74-99 mg/dL Glucose Incorrect test ordered. Correct order placed. Results to follow. Result Comment: REORDERED ON [place] [address] Account Credited LAB BUN 7-21 mg/dL Incorrect BUN test ordered. Correct order placed. Results to follow. Result Comment: REORDERED ON [place] [id number] Account Credited LAB CRET 0.58-0.96 mg/dL Creatinine Incorrect test ordered. Correct order placed. Results to follow. Result Comment: REORDERED ON [place] [id number] Account Credited LAB NA 136-144 mmol/L Sodium Incorrect test ordered. Correct order placed. Results to follow. Result Comment: REORDERED ON [place] [id number] Account Credited LAB K 3.7-5.1 mmol/L Potassium Incorrect test ordered. Correct order placed. Results to follow. Result Comment: REORDERED ON [place] [id number] Account Credited LAB CL 97-105 mmol/L Chloride Incorrect test ordered. Correct order placed. Results to follow. Result Comment: REORDERED ON [place] [id number] Account Credited LAB CO2 22-30 mmol/L Incorrect CO2 test ordered. Correct order placed. Results to follow. Result Comment: REORDERED ON [place] [id number] Account Credited LAB AGAP 9-18 mmol/L Incorrect Anion Gap test ordered. Correct order placed. Results to follow. Result Comment: REORDERED ON [place] [address]. [address] Account Credited LAB CA 8.5-10.2 mg/dL Calcium, Total Incorrect test ordered. Correct order placed. Results to follow. Result Comment: REORDERED ON [id number]. [id number] Account Credited LAB GFRAA eGFR- Amer. Incorrect test ordered. Correct order placed. Results to follow. Result Comment: REORDERED ON [id number]. [id number] Account Credited LAB GFRNAA . eGFR-All Incorrect Other Races test ordered. Correct order placed. Results to follow. Result Comment: REORDERED ON [id number]. [id number] Account Credited LAB GFRPED eGFR-Ped. Incorrect Factor test ordered. Correct order placed. Results to follow. Result Comment: REORDERED ON [id number]. [id number] Account Credited Performed By: #### BMP #### [facility] [address] [place], [place] [address] BASIC METABOLIC PANL Collected: 03/20/2018 Status: F Source: [place] 3:14 PM [facility] REPOSITORY TYPE CODE TESTS RESULT OUT OF REFERENCE UNITS RANGE LAB GLU 74-99 mg/dL High Glucose 109 Result Comment: The [place] Diabetes Association (ADA) provides guidance for cutoff [...] Standards of Medical Care in Diabetes 2016, [place] Diabetes Association. Diabetes Care. 2016.39(Suppl 1). LAB [...] actual GFR. Performed By: #### BMP #### [facility] [address] [place], [place] [address] BASIC METABOLIC PANL Collected: 03/20/2018 Status: F Source: [place] 3:11 PM [facility] REPOSITORY TYPE CODE TESTS RESULT OUT OF REFERENCE UNITS RANGE LAB GLU 74-99 mg/dL Requisitioning Glucose entry error Result Comment: Account Credited ORDERED WITH WRONG PROCESSING LOCATION. HAD TO REORDER WITH [facility] SO THAT TEST COULD BE RAN. [id number] 7473 LAB BUN 7-21 mg/dL Requisitioning entry BUN error Result Comment: Account Credited ORDERED WITH WRONG PROCESSING LOCATION. HAD TO REORDER WITH [facility] SO THAT TEST COULD BE RAN. [id number] 9718 LAB CRET 0.58-0.96 mg/dL Requisitioning entry Creatinine error Result Comment: Account Credited ORDERED WITH WRONG PROCESSING LOCATION. HAD TO REORDER WITH [facility] SO THAT TEST COULD BE RAN. [id number] 6276 LAB NA 136-144 mmol/L Requisitioning entry Sodium error Result Comment: Account Credited ORDERED WITH WRONG PROCESSING LOCATION. HAD TO REORDER WITH [facility] SO THAT TEST COULD BE RAN. [id number] 3049 LAB K 3.7-5.1 mmol/L Requisitioning entry Potassium error Result Comment: Account Credited ORDERED WITH WRONG PROCESSING LOCATION. HAD TO REORDER WITH [facility] SO THAT TEST COULD BE RAN. [id number] 6751 LAB CL 97-105 mmol/L Requisitioning entry Chloride error Result Comment: Account Credited ORDERED WITH WRONG PROCESSING LOCATION. HAD TO REORDER WITH [facility] SO THAT TEST COULD BE RAN. [id number] 2561 LAB CO2 22-30 mmol/L Requisitioning entry error CO2 Result Comment: Account Credited ORDERED WITH WRONG PROCESSING LOCATION. HAD TO REORDER WITH [facility] SO THAT TEST COULD BE RAN. 164848 3052 LAB AGAP 9-18 mmol/L Requisitioning entry Anion Gap error Result Comment: Account Credited ORDERED WITH WRONG PROCESSING LOCATION. HAD TO REORDER WITH [facility] SO THAT TEST COULD BE RAN. [id number] 1818 LAB CA 8.5-10.2 mg/dL Requisitioning entry Calcium, Total error Result Comment: Account Credited ORDERED WITH WRONG PROCESSING LOCATION. HAD TO REORDER WITH [facility] SO THAT TEST COULD BE RAN. [id number] 3257 LAB GFRAA eGFR- Requisitioning entry Amer. error Result Comment: Account Credited ORDERED WITH WRONG PROCESSING LOCATION. HAD TO REORDER WITH [facility] SO THAT TEST COULD BE RAN. [id number] 3039 LAB GFRNAA . eGFR-All Requisitioning entry Other Races error Result Comment: Account Credited ORDERED WITH WRONG PROCESSING LOCATION. HAD TO REORDER WITH [facility] SO THAT TEST COULD BE RAN. [id number] 5596 LAB GFRPED eGFR-Ped. Requisitioning entry Factor error Result Comment: Account Credited ORDERED WITH WRONG PROCESSING LOCATION. HAD TO REORDER WITH [facility] SO THAT TEST COULD BE RAN. [id number] 1167 Performed By: #### BMP #### [facility] [address] [place] [id number] OT FUNCTIONAL CAPACITY Observed: 03/18/2018 Status: F Source: [place] 9:11 AM [facility] REPOSITORY [facility] [address] [place] [address] Fax REHABILITATION SERVICES INITIAL EVALUATION MR#: [id number] Acct: [id number] Name: VAL VALVERDE Rep #: [id number] : 1970 47 From: Bryan Terry OTR/L, CHT Referring Dr.: PLISSE MACHINE OPERATOR HELPER-C Duy Piter Status: REG RCR Insurance: [employer] [place] Eval Date: SELF PAY INSURANCE HP OT [...] suffered from a virus CMV (Cytomegalovirus) in 2016 and her infections disease doctor placed her on medical disability due to her medical conditions. - Diagnoses Diagnoses: 2000 Stomach cancer. 2009 Kidney transplant. 2016 CMV Cytomegalovirus - Symptoms Symptoms: states daily she has stomach discomfort with eating and drinking. small eating ability. acid reflux. Fatigue. Stomach pain. Dehydration - Pain Pain: 0/10 - Work History Work History: Pt state she was last employed at [employer]. pt states she worked there for about 23 years. 2016 was her last day. 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 pt states she did a lot of [...] Strength: pt demo 4/5 functional strength- Right Broach Grinder Strength Average: 51.66 Right Broach Grinder Strength Percentile: 9% Left Broach Grinder Strength Average: 56.00 Left Broach Grinder Strength Percentile: 16# Right Lateral Pinch Average: [...] with good ability. <Electronically signed by Bryan Terry OTR/Bahman, CHT> 03/18/18 0911 CC: RUDY Dumas; Wil To MD MK Signed For Medicare only, by signing this I certify the plan of care. Physicians Signature Date [place] HEMATOCRIT Collected: 03/16/2018 Status: F Source: [place] 2:13 PM [facility] REPOSITORY TYPE CODE TESTS RESULT OUT OF REFERENCE UNITS RANGE LAB WHCT 36.0-46.0 % Low [place] Hematocrit 30.6 Result Comment: Test performed at: [address], [place] [address]. [place] HEMOGLOBIN Collected: 03/16/2018 Status: F Source: [place] 2:13 PM [facility] REPOSITORY TYPE CODE TESTS RESULT OUT OF REFERENCE UNITS RANGE LAB WHGB 11.5-15.5 g/dL Low [place] Hemoglobin 9.8 Result Comment: Test performed at: [address] [place] [address]. PROGRESS Observed: 03/04/2018 Status: COMPLETED Source: [place] 4:43 PM [facility] REPOSITORY HNO ID: [id number] Author: Keri Adame Service: (none) Author Type: [...] APRN.CNP CNOV Observed: 03/04/2018 Status: COMPLETED Source: [place] 4:30 PM [facility] REPOSITORY Office Visit (WOOB) VAL VALVERDE ([id number]) 1970 F TRN Date Time Provider Department [...] TOPICAL GEL Follow-up as needed. Keri Adame APRN.BORDER MACHINE OPERATOR Referring Provider: SELF [200] Allergies As of Date: 03/04/2018 Noted Allergy Reaction SULFA (SULFONAMIDE ANTIBIOTICS) 04/07/2001 4 - Hives Comments: hives NSAIDS (NON-STEROIDAL ANTI-INFLAM*04/23/2016 5 - Intolerance Date Reviewed: 03/04/2018 Reviewed by: Keri (Video Editor) Deep - Fully Assessed Reason for Visit: Follow [...] * Take 1 capsule by mouth every* WBNOEH-FODNTHLB-FYXZBPE 12,00* Take by mouth three times raad* [...] ulcer disease with hemorrhage [K27.4] INVALID FOR*12/30/2016 Wzqfu-tt-yclhssf kidney injury (HCC) [N17.9, N1*INVALID FOR*12/30/2016 More... [...] 03/04/18 PROGRESS Observed: 02/16/2018 Status: COMPLETED Source: [place] 1:05 PM [facility] REPOSITORY HNO ID: [id number] Author: Alex Tian Service: (none) Author Type: Physician Type: Progress Notes Filed: 02/17/2018 7:07 AM Note Text: PATIENT NAME: Val Valverde. CLINIC NO: [id number]. ATTENDING PHYSICIAN: Alex Tian MD. DATE OF SERVICE: 02/16/2018 ?? DIAGNOSIS: Anemia of chronic disease secondary stage IV renal failure; status- post partial gastrectomy for stage IB gastric cancer AND History of renal transplant. ?? HPI: This is a 46-year-old woman from [facility] who was adopted into a family in the [facility] at 1-1/2 years of age. In [...] Latest Ref Rng AND Units 02/16/2018 Hemoglobin, [place] 11.5 - 15.5 g/dL 9.3 (L) Hematocrit, [...] function. Alex Tian MD Cc: Bryan Koo, DAYANNA REBOLLEDO ISTAT BMP Collected: 02/16/2018 Status: F Source: [place] 10:50 AM [facility] [place] REPOSITORY TYPE CODE TESTS RESULT OUT OF [...] [place] HEMATOCRIT Collected: 02/16/2018 Status: F Source: [place] 10:50 AM [facility] REPOSITORY TYPE CODE TESTS RESULT OUT OF REFERENCE UNITS RANGE LAB WHCT 36.0-46.0 % Low [place] Hematocrit 28.7 Result Comment: Test performed at: [address] [place] [address]. [place] HEMOGLOBIN Collected: 02/16/2018 Status: F Source: [place] 10:50 AM [facility] REPOSITORY TYPE CODE TESTS RESULT OUT OF REFERENCE UNITS RANGE LAB WHGB 11.5-15.5 g/dL Low [place] Hemoglobin 9.3 Result Comment: Test performed at: [address] [place] [address]. CBC AND DIFFERENTIAL Collected: 02/16/2018 Status: F Source: [place] 10:50 AM [facility] REPOSITORY TYPE CODE TESTS RESULT OUT [...] k/uL Abs Lymph 1.46 LAB AMONO % Rowan% 12.6 LAB AAMONO <0.87 k/uL Abs [place] High 1.18 LAB AEOS % Eosin% 1.6 LAB AAEOS <0.46 k/uL Abs Eosin 0.15 LAB ABASO % Baso% 0.3 LAB AABASO <0.11 k/uL Abs Baso 0.03 LAB AUNRBC 0 /100 WBC NRBCs 0.0 LAB ABNRBC <0.01 k/uL Absolute nRBC <0.01 LAB DTYP DTYPE Auto Diff Performed By: #### CBCDIF, CMP, MG1, PREALB #### [facility] [address] [place] [id number] COMP METABOLIC PANEL Collected: 02/16/2018 Status: F Source: [place] 10:50 AM [facility] REPOSITORY TYPE CODE [...] 74-99 mg/dL Glucose 83 Result Comment: The [place] Diabetes Association (ADA) provides guidance for cutoff [...] Standards of Medical Care in Diabetes 2016, [place] Diabetes Association. Diabetes Care. 2016.39(Suppl 1). LAB [...] By: #### CBCDIF, CMP, MG1, PREALB #### [facility] [address] [place] [address] MAGNESIUM Collected: 02/16/2018 Status: F Source: [place] 10:50 AM [facility] REPOSITORY TYPE CODE TESTS RESULT OUT OF REFERENCE UNITS RANGE LAB MG 1.7-2.3 mg/dL Low Magnesium 1.5 Performed By: #### CBCDIF, CMP, MG1, PREALB #### [facility] [address] [place] [address] PREALBUMIN Collected: 02/16/2018 Status: F Source: [place] 10:50 AM [facility] REPOSITORY TYPE CODE TESTS RESULT OUT OF REFERENCE UNITS RANGE LAB PREALB 17-36 mg/dL Prealbumin 35 Performed By: #### CBCDIF, CMP, MG1, PREALB #### [place] [address] IRON AND TIBC Collected: 02/16/2018 Status: F Source: [place] 10:50 AM [facility] REPOSITORY TYPE CODE TESTS RESULT OUT OF REFERENCE UNITS RANGE LAB IRN 41-186 ug/dL Iron 72 LAB TIBC 232-386 ug/dL Low TIBC 209 LAB SAT 15-57 % Transferrin Saturatn 34 Performed By: #### IRON, FERR #### [place] [address] FERRITIN Collected: 02/16/2018 Status: F Source: [place] 10:50 AM [facility] REPOSITORY TYPE CODE TESTS RESULT OUT OF REFERENCE UNITS RANGE LAB FERR 14.7-205.1 ng/mL High Ferritin 1022.0 Performed By: #### IRON, FERR #### [place] [address] CNOVSP Observed: 02/16/2018 Status: COMPLETED Source: [place] 10:50 AM [facility] REPOSITORY Visit (SP) Office (BREANNA) VAL VALVERDE ([id number]) 1970 F TRN Date Time Provider Department [...] Signed PATIENT NAME: Val [place]. CLINIC NO: [id number]. ATTENDING PHYSICIAN: Alex Tian MD. DATE OF SERVICE: 02/16/2018 ?? DIAGNOSIS: Anemia of chronic disease secondary stage IV renal failure; status- post partial gastrectomy for stage IB gastric cancer AND History of renal transplant. ?? HPI: This is a 46-year-old woman from [facility] who was adopted into a family in the [facility] at 1-1/2 years of age. In [...] Latest Ref Rng AND Units 02/16/2018 Hemoglobin, [place] 11.5 - 15.5 g/dL 9.3 (L) Hematocrit, [...] Bryan Koo CNP Referring Provider: ALEX TIAN [[id number]] Allergies As of Date: 02/16/2018 Noted Allergy [...] of Service: EST PATIENT VISIT LEVEL 3 [[id number]] Disposition: Return in about 6 months (around [...] * Take 1 capsule by mouth every* PTNQSQ-NWHVNFRQ-OHAPHVK 12,00* Take by mouth three times raad* [...] ulcer disease with hemorrhage [K27.4] INVALID FOR*12/30/2016 Uijqe-sa-iugmnsi kidney injury (HCC) [N17.9, N1*INVALID FOR*12/30/2016 More... [...] / [id number] Collected: 02/16/2018 Status: F Source: [place] 10:50 AM [facility] REPOSITORY TYPE CODE TESTS RESULT OUT [...] situation. Test performed by chemiluminescent immunoassay using Munetrix. Performed By: #### FK506 #### [facility] [address] [place] [id number] GC/CHLAMYDIA AMPLIF Collected: 02/04/2018 Status: F Source: [place] 5:06 PM [facility] REPOSITORY TYPE CODE TESTS RESULT OUT OF REFERENCE UNITS RANGE LAB GCCTSR GC/Chlam Amp Cervix Source LAB GCAMPL GC Negative Amplification for Neisseria gonorrhoeae by amplification. LAB CLAMPL Chlamydia Negative Amplif for Chlamydia trachomatis by amplification. Performed By: #### GCCT #### [facility] [address] [place], [place] [address] PROGRESS Observed: 02/04/2018 Status: COMPLETED Source: [place] 2:35 PM [facility] REPOSITORY HNO ID: [id number] Author: Emir Fowler Service: (none) Author Type: [...] IUD source: office provided IUD lot #: [id number] Exp date: 06/2020 UNIVERSAL PROTOCOL / SAFETY [...] DO CNOV Observed: 02/04/2018 Status: COMPLETED Source: [place] 2:30 PM [facility] REPOSITORY Office Visit (WOOB) VAL VALVERDE ([id number]) 1970 F TRN Date Time Provider Department [...] IUD source: office provided IUD lot #: [id number] Exp date: 06/2020 UNIVERSAL PROTOCOL / SAFETY [...] Modules accepted: Orders Referring Provider: KERI ADAME ([facility]) [[id number]] Allergies As of Date: 02/04/2018 Noted Allergy [...] for IUD removal [Z30.432] Order(s):INSERT INTRAUTERINE DEVICE [0273091] Order #: [id number] [] levonorgestrel 20 mcg/24 hr (5 years) 1 Each intrauterine device (MIRENA)Disp: Rfl: GC/CHLAMYDIA DNA DET [SQGCCAMP] Order #: [id number] Prescriptions as of 02/04/2018 Sig: NIPVTY-PDXHLYUA-ZIFRWAR 12,00* Take by mouth three times raad* [...] ulcer disease with hemorrhage [K27.4] INVALID FOR*12/30/2016 Qzvhv-mn-idgxswa kidney injury (HCC) [N17.9, N1*INVALID FOR*12/30/2016 More... [...] 02/04/18 CNOV Observed: 01/30/2018 Status: COMPLETED Source: [place] 3:40 PM [facility] REPOSITORY Office Visit (GASTA5) VAL VALVERDE ([id number]) 1970 F [facility] Date Time Provider Department 01/30/18 3:40 [...] Barajas for weight loss. Originally, she was from?[facility] and was adopted?by a family in the [...] give her diarrhea. She had also tried [employer], but while she had it [...] reported that she had been away in [place] for 3 weeks and thought that she [...] is in the HPI. Current Outpatient Prescriptions: hoawgu-jasnkqmc-jnekkhy (CREON 12) 12,000-38,000 -60,000 unit cpDR Take [...] REVIEWED DATA 11/07/2015 (Dr. Jacob Belcher / [facility]) EGD. Findings: ?The examined esophagus was normal. [...] CMV-related enteritis. 08/01/2016 (Dr. Andrey Barajas / [facility]) EGD. Findings: Localized candidiasis was found in [...] Andrey Barajas AND Dr. Wilma Jones / [facility]) EGD. Findings: The examined esophagus was normal. [...] Helicobacter pylori. 11/01/2016 (Dr. Sahil Kurtz / [facility]) EGD. Findings: No gross lesions were noted [...] examined jejunal lumen appeared grossly normal. 11/17/2016 ([facility] / LAB) Gastric remnant, Biopsies ? Acute and Chronic gastritis. Immunohistochemical stain for Helicobacter pylori is negative for organisms. Comment: There are no cytologic features of CMV infection identified. This was evaluated using a laboratory developed test. 12/20/2016 (Dr. Prabhu Dahl AND Dr. Delano Segovia / [facility]) EGD. Findings: The examined esophagus was normal. Evidence of a Layne-en-Y gastrojejunostomy was found. This was not traversed. The goavv-iq-kbaedjb limb was characterized by ulceration with a [...] appeared intact. 12/21/2016 (Dr. Ruby Hernández / [facility]) EGD. Findings: The examined esophagus was normal. [...] lesion seen. 12/22/2016 (Dr. Jacob Cruz / [facility]) EGD. Findings: The examined esophagus was normal. [...] 39 cm. 12/25/2016 (Dr. Ruby Hernández / [facility]) EGD. Findings: The examined esophagus was normal. [...] stained sections. 02/19/2017 (Dr. Raman Almeida / [facility]) EGD. Findings: There is no endoscopic evidence [...] with a cold forceps for histology. 02/21/2017 ([facility]) BOY-NORRIS DNA QNT: EBV DNA not detected by PCR. 08/27/2017 (Dr. Alex Tian / Hematology/Oncology) Office Note: HPI: This is a 46-year-old woman from [facility] who was adopted into a family in [...] - 20.0 ng/mL ? 5.9 ? Hemoglobin, [place] 11.5 - 15.5 g/dL ? ? 9.8 [...] - 4.00 k/uL 0.58 (L) ? ? Rowan% % 2.9 ? ? Abs Rowan <0.87 k/uL 0.40 ? ? Eosin% % [...] 8.8 (L) 9.9 (L) 10.2 (L) Hematocrit, [place] 36.0 - 46.0 % 32.9 (L) 27.9 (L) 31.1 (L) 32.0 (L) 1St Grade Teacher Specimen originated from [facility] . . . Assessment DISCUSSION: We [...] Osteopenia Vitamin B12 deficiency PLAN Patient has?a [employer] account. Labs as ordered - can get closer to home at a [facility] lab - download to [employer] Trial of ORS - information and samples of Drip Drop Discussed vitamin B12 injections and that she has 3 mL vials for 1 mL/month and then 3 refills To alter diet - decrease Magalys dedrick and try to increase intake RTC about 8 weeks Letter to Drs. 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 [...] [place] HEMATOCRIT Collected: 01/26/2018 Status: F Source: [place] 4:00 PM [facility] REPOSITORY TYPE CODE TESTS RESULT OUT OF REFERENCE UNITS RANGE LAB WHCT 36.0-46.0 % Low [place] Hematocrit 31.9 Result Comment: Test performed at: [facility] [address], [place] [address]. [place] HEMOGLOBIN Collected: 01/26/2018 Status: F Source: [place] 4:00 PM [facility] REPOSITORY TYPE CODE TESTS RESULT OUT OF REFERENCE UNITS RANGE LAB WHGB 11.5-15.5 g/dL Low [place] Hemoglobin 10.3 Result Comment: Test performed at: [facility] [place], [address] [place] [address]. PROGRESS Observed: 01/22/2018 Status: COMPLETED Source: [place] 1:25 PM [facility] REPOSITORY HNO ID: [id number] Author: Austen Pierson Service: (none) Author Type: [...] Barajas for weight loss. Originally, she was from?[facility] and was adopted?by a family in the [...] give her diarrhea. She had also tried [employer], but while she had it [...] reported that she had been away in [place] for 3 weeks and thought that she [...] She did not like the trial of [place]. I have reviewed the PMH, Social, FH and ROS from the visit on 10/06/17, and I have no changes or additions except what is in the HPI. Current Outpatient Prescriptions: hzwyip-houdazve-upeibim (CREON 12) 12,000-38,000 -60,000 unit cpDR Take [...] REVIEWED DATA 11/07/2015 (Dr. Jacob Belcher / [facility]) EGD. Findings: ?The examined esophagus was normal. [...] HSV inclusions. 05/30/2016 (Dr. Andrey Barajas / [facility] [facility]) EGD. Findings: The esophagus was normal. LES [...] CMV-related enteritis. 08/01/2016 (Dr. Andrey Barajas / [facility] [facility]) EGD. Findings: Localized candidiasis was found in [...] Andrey Barajas AND Dr. Wilma Jones / [facility] [facility]) EGD. Findings: The examined esophagus was normal. [...] Helicobacter pylori. 11/01/2016 (Dr. Sahil Kurtz / [place]) EGD. Findings: No gross lesions were noted [...] examined jejunal lumen appeared grossly normal. 11/17/2016 ([facility] / LAB) Gastric remnant, Biopsies ? Acute and Chronic gastritis. Immunohistochemical stain for Helicobacter pylori is negative for organisms. Comment: There are no cytologic features of CMV infection identified. This was evaluated using a laboratory developed test. 12/20/2016 (Dr. Prabhu Dahl AND Dr. Delano Segovia / [place]) EGD. Findings: The examined esophagus was normal. Evidence of a Layne-en-Y gastrojejunostomy was found. This was not traversed. The bolij-mw-dzzipks limb was characterized by ulceration with a [...] appeared intact. 12/21/2016 (Dr. Ruby Hernández / [facility] [facility]) EGD. Findings: The examined esophagus was normal. [...] lesion seen. 12/22/2016 (Dr. Jacob Cruz / [facility] [facility]) EGD. Findings: The examined esophagus was normal. [...] 39 cm. 12/25/2016 (Dr. Ruby Hernández / [facility] [facility]) EGD. Findings: The examined esophagus was normal. [...] stained sections. 02/19/2017 (Dr. Raman Almeida / [facility] [facility]) EGD. Findings: There is no endoscopic evidence [...] HPI: This is a 46-year-old woman from [facility] who was adopted into a family in the [facility] at 1-1/2 years of age. In [...] - 20.0 ng/mL ? 5.9 ? Hemoglobin, [place] 11.5 - 15.5 g/dL ? ? 9.8 [...] - 4.00 k/uL 0.58 (L) ? ? Rowan% % 2.9 ? ? Abs [place] <0.87 k/uL 0.40 ? ? Eosin% % [...] 15.5 g/dL ? ? 10.9 (L) Hematocrit, [place] 36.0 - 46.0 % ? ? 33.5 [...] (L) 27.9 (L) 31.1 (L) 32.0 (L) 1St Grade Teacher Specimen originated from [facility] . . . Assessment DISCUSSION: We [...] Osteopenia Vitamin B12 deficiency PLAN Patient has?a [employer] account. Labs as ordered - can get closer to home at a [facility] lab - download to [employer] [facility] Trial of ORS - information and samples of Drip Drop Discussed vitamin B12 injections and that she has 3 mL vials for 1 mL/month and then 3 refills To alter diet - decrease Magalys dedrick and try to increase intake RTC about 8 weeks Letter to Drs. Barajas and Bri, PCP and Bryan Koo, DAYANNA Pierson MD January 30, 2018 [place] HEMATOCRIT Collected: 01/12/2018 Status: F Source: [place] 11:06 AM [facility] REPOSITORY TYPE CODE TESTS RESULT OUT OF REFERENCE UNITS RANGE LAB WHCT 36.0-46.0 % Low [place] Hematocrit 32.0 Result Comment: Test performed at: [address] [place] [address]. [place] HEMOGLOBIN Collected: 01/12/2018 Status: F Source: [place] 11:06 AM [facility] REPOSITORY TYPE CODE TESTS RESULT OUT OF REFERENCE UNITS RANGE LAB WHGB 11.5-15.5 g/dL Low [place] Hemoglobin 10.2 Result Comment: Test performed at: [facility], [address] [place] [address] Rd., [place] [address]. PROGRESS Observed: 01/06/2018 Status: COMPLETED Source: [place] 12:21 PM [facility] REPOSITORY HNO ID: [id number] Author: Asia Wesley) Utting Service: (none) Author Type: Physician Fleet Driver Type: Progress Notes Filed: 01/06/2018 12:24 PM Note Text: Results were negative for high-risk HPV as noted below. Note results had gone to incorrect provider in [facility] causing delay in receiving/reviewing results. PROCEDURE(S) CISH HPV LOW RISK ? Date Ordered: ?10/14/2017 ? ? ? Date Reported: ?10/16/2017 Procedure Results and Interpretation At request of the clinician, chromogenic in situ hybridization (CISH) studies for high risk HPV were obtained on case [id number]. The results of HPV CISH testing [...] LOWER NAEL Observed: 12/30/2017 Status: F Source: [place] 6:58 PM [facility] CAMP[facility] REPOSITORY * * [...] the knee due to swelling and edema [employer] Specialist: NELIA Transcribe Date/Time: Dec 30 2017 5:13P Dictated by : EFFIE RODRIGUEZ MD This examination was interpreted and the report reviewed and electronically signed by: EFFIE RODRIGUEZ MD on Dec 30 2017 5:14PM EST [id number] [place] HEMATOCRIT Collected: 12/29/2017 Status: F Source: [place] 12:46 PM [facility] REPOSITORY TYPE CODE TESTS RESULT OUT OF REFERENCE UNITS RANGE LAB WHCT 36.0-46.0 % Low [place] Hematocrit 31.1 Result Comment: Test performed at: [facility], [address] [place] [address]. [place] HEMOGLOBIN Collected: 12/29/2017 Status: F Source: [place] 12:46 PM [facility] REPOSITORY TYPE CODE TESTS RESULT OUT OF REFERENCE UNITS RANGE LAB WHGB 11.5-15.5 g/dL Low [place] Hemoglobin 9.9 Result Comment: Test performed at: [facility] [place], [address] [place] [address]. PROGRESS Observed: 12/23/2017 Status: COMPLETED Source: [place] 2:26 PM [facility] REPOSITORY HNO ID: [id number] Author: Bryan Ruggiero (Video Editor) Hanane Service: (none) Author Type: Nurse Practitioner [...] Lymph 1.00 - 4.00 k/uL 0.58 (L) Rowan% % 2.9 Abs [place] <0.87 k/uL 0.40 Eosin% % 0.3 Abs [...] 11.5 - 15.5 g/dL 8.8 (L) Hematocrit, [place] 36.0 - 46.0 % 27.9 (L) PHYSICAL [...] target, but will watch for now -Anemia-on RICYK at [place], hgb 8.8 Chronic thrombocytopenia -Reduced PO Intake/Malnutrition/Wt loss -Hx of pancreatitis PLAN: Continue present management Watch dietary intake in take of sodium Avoid NSAIDS and contrast exposure Await final EGD findings Will d/w Dr. Yoseph Koo, RN ASBESTOS BRAKE LINING FINISHER HELPER.BORDER MACHINE OPERATOR I spent 25 minutes in the visit, with more than 50% of the total ebnl-nl-ccob time of the visit in counseling / coordination of care. CNOV Observed: 12/23/2017 Status: COMPLETED Source: [place] 1:50 PM [facility] REPOSITORY Office Visit (NEPHMN) VAL VALVERDE ([id number]) 1970 F TRN Date Time Provider Department 12/23/17 1:50 PM BRYAN KOO (DAYANNA) NEPHMN During your visit today, we recorded the following information about you: Temperature Pulse Blood pressure Weight 95.9 degrees 74/minute 135/87 34.1 kg Height 1.499 m Bryan Koo RN ASBESTOS BRAKE LINING FINISHER HELPER.BORDER MACHINE OPERATOR 02/18/2018 3:44 PM Addendum Patient presents for [...] Lymph 1.00 - 4.00 k/uL 0.58 (L) Rowan% % 2.9 Abs [place] <0.87 k/uL 0.40 Eosin% % 0.3 Abs [...] by PCR Folate >4.7 ng/mL >20.0 Hemoglobin, [place] 11.5 - 15.5 g/dL 8.8 (L) Hematocrit, [...] findings Will d/w Dr. Yoseph Koo, RN ASBESTOS BRAKE LINING FINISHER HELPER.BORDER MACHINE OPERATOR I spent 25 minutes in the visit, with more than 50% of the total pzbe-kv-cxso time of the visit in counseling / coordination of care. Referring Provider: BRYAN KOO (BORDER MACHINE OPERATOR) [[id number]] Allergies As of Date: 12/23/2017 Noted Allergy [...] [B37.81] Order(s):UA CHEMSTRIP ONLY [SQUA] Order #: [id number] FUTURE UA CHEMSTRIP ONLY [SQUA] Order #: [id number]. 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 [...] Reason for discontinue is not on file. dczbyh-qbrimhmh-softaas (CREON) 12,0* 90 c* 11 03/27/2017 12/23/2017 [...] 01/16/18 URINALYSIS Collected: 12/23/2017 Status: F Source: [place] 12:06 PM [facility] REPOSITORY TYPE CODE TESTS RESULT OUT OF RANGE REFERENCE UNITS LAB UCOL Yellow Color Yellow LAB [facility] Clear Clarity Clear LAB UGLUC Negative mg/dL Glucose, Urine Negative LAB UBIL Negative Bilirubin, Urine Negative LAB UKET Negative Ketones, Urine Negative LAB USPG 1.005-1.030 Specific [place], Ur 1.012 LAB UHGB Negative Hemoglobin/Blood, Negative Ur LAB UPH 4.5-8.0 pH 5.5 LAB UPROT Negative mg/dL Protein, Abnormal Urine 30 Alert LAB UUROB Normal Urobilinogen Normal LAB UNITR Negative Nitrites Negative LAB ULKEST Negative Leukest Negative LAB UCOM Comments SEE COMMENT Result Comment: Microscopic not warranted LAB UMCOM Urine SEE Louie Comment COMMENT Result Comment: N/A Performed By: #### UA #### [facility] [address] [place], [place] [address] SURGICAL PATHOLOGY Observed: 12/23/2017 Status: F Source: [place] 10:23 AM [facility] [place] REPOSITORY Specimen originated from [facility] Specimen #: [id number] Submitting Physician: ANDREY BARAJAS MD FINAL DIAGNOSIS [...] in one cassette. Gross examination performed at [facility], [address] [place] [address] FF 12/23/2017 6:10:40 PM Date of Report: 12/24/2017 Date of Procedure: 12/23/2017 Date of Receipt: 12/23/2017 Submitted by: ANDREY BARAJAS MD Location: [facility] A3 Diagnostic interpretation performed at [place] [address]. TACROLIMUS / [id number] Collected: 12/22/2017 Status: F Source: [place] 12:45 PM [facility] REPOSITORY TYPE CODE TESTS RESULT OUT [...] situation. Test performed by chemiluminescent immunoassay using Munetrix. Performed By: #### FK506 #### [place] [address] COMP METABOLIC PANEL Collected: 12/22/2017 Status: F Source: [place] 12:45 PM [facility] REPOSITORY TYPE [...] mg/dL Glucose High 118 Result Comment: The [place] Diabetes Association (ADA) provides guidance for cutoff [...] Standards of Medical Care in Diabetes 2016, [place] Diabetes Association. Diabetes Care. 2016.39(Suppl 1). LAB [...] actual GFR. Performed By: #### CMP #### [facility] [address] [place], [place] [address] PROGRESS Observed: 12/17/2017 Status: COMPLETED Source: [place] 9:44 AM [facility] REPOSITORY HNO ID: [id number] Author: Austen Pierson Service: (none) Author Type: Physician Type: Progress Notes Filed: 12/17/2017 9:45 AM Note Text: Correct order placed - please help her to get this scheduled. Austen Pierson MD December 17, 2017 [place] HEMATOCRIT Collected: 12/15/2017 Status: F Source: [place] 11:08 AM [facility] REPOSITORY TYPE CODE TESTS RESULT OUT OF REFERENCE UNITS RANGE LAB WHCT 36.0-46.0 % Low [place] Hematocrit 27.9 Result Comment: Test performed at: [address], [place] [address]. [place] HEMOGLOBIN Collected: 12/15/2017 Status: F Source: [place] 11:08 AM [facility] REPOSITORY TYPE CODE TESTS RESULT OUT OF REFERENCE UNITS RANGE LAB WHGB 11.5-15.5 g/dL Low [place] Hemoglobin 8.8 Result Comment: Test performed at: [address], [place] [address]. CNOV Observed: 12/11/2017 Status: COMPLETED Source: [place] 4:10 PM [facility] REPOSITORY Office Visit (GASTA5) VAL VAL[place]DE ([id number]) 1970 F TRN Date Time Provider Department 12/11/17 4:10 PM AUSTEN PIERSONA5 During your visit today, we recorded the [...] the OWYN Supplements or going back to [facility] [employer] with Munith Milk. We also discussed tube feeding and/or [...] her return visit. PLAN Patient has a [employer] account. Labs as ordered - download to [employer] To alter diet - Magalys dedrick and [...] for weight loss. Originally, she was from [facility] and was adopted by a family in [...] give her diarrhea. She had also tried [employer], but while she had it in the house, she would usually forget that she had it and would choose the Magalys Dedrick instead. She stated that she had a past history of pancreatitis and had been on Creon for a long time. She had come for help with her weight. Today she states that she has been away in [place] for 3 weeks and thought that she [...] once daily. Disp: 90 tablet Rfl: 3 vpgudk-fppaowfy-rahenpy (CREON) 12,000-38,000 -60,000 unit cpDR Take 1 [...] REVIEWED DATA 11/07/2015 (Dr. Jacob Belcher / [facility]) EGD. Findings: The examined esophagus was normal. [...] HSV inclusions. 05/30/2016 (Dr. Andrey Barajas / [facility] [facility]) EGD. Findings: The esophagus was normal. LES [...] CMV-related enteritis. 08/01/2016 (Dr. Andrey Barajas / [facility] [facility]) EGD. Findings: Localized candidiasis was found in [...] Andrey Barajas AND Dr. Wilma Jones / [place]) EGD. Findings: The examined esophagus was normal. [...] Helicobacter pylori. 11/01/2016 (Dr. Sahil Kurtz / [place]) EGD. Findings: No gross lesions were noted [...] examined jejunal lumen appeared grossly normal. 11/17/2016 ([facility] / LAB) Gastric remnant, Biopsies [...] was found. This was not traversed. The xvnhc-ys-ibinwkf limb was characterized by ulceration with a [...] appeared intact. 12/21/2016 (Dr. Ruby Hernández / [facility]) EGD. Findings: The examined esophagus [...] lesion seen. 12/22/2016 (Dr. Jacob Cruz / [facility]) EGD. Findings: The examined esophagus was normal. [...] 39 cm. 12/25/2016 (Dr. Ruby Hernández / [facility]) EGD. Findings: The examined esophagus was normal. [...] stained sections. 02/19/2017 (Dr. Raman Almeida / [facility]) EGD. Findings: There is no endoscopic evidence [...] HPI: This is a 46-year-old woman from [facility] who was adopted into a family in the [facility] at 1-1/2 years of age. In [...] 15.5 g/dL ? ? 9.8 (L) Hematocrit, [place] 36.0 - 46.0 % ? ? 31.0 [...] Lymph 1.00 - 4.00 k/uL 0.58 (L) Rowan% % 2.9 Abs Rowan <0.87 k/uL 0.40 Eosin% % 0.3 Abs [...] 0.30 - 1.20 mg/L 1.36 (H) Hemoglobin, [place] 11.5 - 15.5 g/dL 10.9 (L) Hematocrit, [place] 36.0 - 46.0 % 33.5 (L) Assessment [...] RTC about [address] BagJua nM, PCP Austen Pierson MD December 11, 2017 Referring Provider: AUSTEN PIERSON [[id number]] Allergies As of Date: 12/11/2017 Noted Allergy [...] deficiency [D51.0] Order(s):DUPLEX DVT VEIN NAEL HC/MM [[id number]] Order #: [id number]: 1 cyanocobalamin 1,000 mcg/mL solnInject 1 mL [...] Take 1 tablet by mouth once d* RVYPJE-GIEPYKJN-UBQXEPY 12,00* Take 1 capsule by mouth three* [...] ulcer disease with hemorrhage [K27.4] INVALID FOR*12/30/2016 Hjjep-sk-kmgbkfm kidney injury (HCC) [N17.9, N1*INVALID FOR*12/30/2016 More... [...] 12/11/17 PROGRESS Observed: 12/05/2017 Status: COMPLETED Source: [place] 7:20 AM [facility] REPOSITORY HNO ID: [id number] Author: Austen Pierson Service: (none) Author Type: [...] the OWYN Supplements or going back to [facility] [employer] with Munith Milk. We also discussed tube feeding and/or [...] her return visit. PLAN Patient has a [employer] [facility] account. Labs as ordered - download to [employer] [facility] To alter diet - Magalys dedrick and [...] for weight loss. Originally, she was from [facility] and was adopted by a family in [...] give her diarrhea. She had also tried [facility] [employer], but while she had it in the house, she would usually forget that she had it and would choose the Magalys Dedrick instead. She stated that she had a past history of pancreatitis and had been on Creon for a long time. She had come for help with her weight. Today she states that she has been away in [place] for 3 weeks and thought that she [...] once daily. Disp: 90 tablet Rfl: 3 itaisz-tatwroqj-njtutrt (CREON) 12,000-38,000 -60,000 unit cpDR Take 1 [...] REVIEWED DATA 11/07/2015 (Dr. Jacob Belcher / [facility]) EGD. Findings: The examined esophagus was normal. [...] HSV inclusions. 05/30/2016 (Dr. Andrey Barajas / [facility]) EGD. Findings: The esophagus was normal. LES [...] CMV-related enteritis. 08/01/2016 (Dr. Andrey Barajas / [facility]) EGD. Findings: Localized candidiasis was found in [...] Andrey Barajas AND Dr. Wilma Jones / [facility]) EGD. Findings: The examined esophagus was normal. [...] Helicobacter pylori. 11/01/2016 (Dr. Sahil Kurtz / [facility]) EGD. Findings: No gross lesions were noted [...] examined jejunal lumen appeared grossly normal. 11/17/2016 ([facility] / LAB) Gastric remnant, Biopsies ? Acute and Chronic gastritis. Immunohistochemical stain for Helicobacter pylori is negative for organisms. Comment: There are no cytologic features of CMV infection identified. This was evaluated using a laboratory developed test. 12/20/2016 (Dr. Prabhu Dahl AND Dr. Delano Segovia / [facility]) EGD. Findings: The examined esophagus was normal. Evidence of a Layne-en-Y gastrojejunostomy was found. This was not traversed. The gtgjm-ut-bnddhzk limb was characterized by ulceration with a [...] appeared intact. 12/21/2016 (Dr. Ruby Hernández / [facility]) EGD. Findings: The examined esophagus was normal. [...] lesion seen. 12/22/2016 (Dr. Jacob Cruz / [facility]) EGD. Findings: The examined esophagus was normal. [...] 39 cm. 12/25/2016 (Dr. Ruby Hernández / [facility]) EGD. Findings: The examined esophagus was normal. [...] stained sections. 02/19/2017 (Dr. Raman Almeida / [facility]) EGD. Findings: There is no endoscopic evidence [...] HPI: This is a 46-year-old woman from [facility] who was adopted into a family in the [facility] at 1-1/2 years of age. In [...] - 20.0 ng/mL ? 5.9 ? Hemoglobin, [place] 11.5 - 15.5 g/dL ? ? 9.8 (L) Hematocrit, [place] 36.0 - 46.0 % ? ? 31.0 [...] Lymph 1.00 - 4.00 k/uL 0.58 (L) Rowan% % 2.9 Abs Rowan <0.87 k/uL 0.40 Eosin% % 0.3 Abs [...] 0.30 - 1.20 mg/L 1.36 (H) Hemoglobin, [place] 11.5 - 15.5 g/dL 10.9 (L) Hematocrit, [...] KESHA HEMATOCRIT Collected: 11/17/2017 Status: F Source: [place] 11:40 AM [facility] REPOSITORY TYPE CODE TESTS RESULT OUT OF REFERENCE UNITS RANGE LAB WHCT 36.0-46.0 % Low [place] Hematocrit 32.9 Result Comment: Test performed at: [facility], [address] [place] [address] Rd[address] [place] [address]. KESHA HEMOGLOBIN Collected: 11/17/2017 Status: F Source: [place] 11:40 AM [facility] REPOSITORY TYPE CODE TESTS RESULT OUT OF REFERENCE UNITS RANGE LAB WHGB 11.5-15.5 g/dL Low [place] Hemoglobin 10.6 Result Comment: Test performed at: [facility], [address] [place] [address] Rd[address] [place] [address]. COMP METABOLIC PANEL Collected: 11/12/2017 Status: F Source: [place] 12:40 PM [facility] REPOSITORY TYPE CODE TESTS RESULT OUT OF REFERENCE UNITS RANGE LAB TP 6.3-8.0 g/dL Protein, Total 6.3 LAB ALB 3.9-4.9 g/dL Low Albumin 3.4 LAB CA 8.5-10.2 mg/dL Calcium, Total 8.6 LAB TBIL 0.2-1.3 mg/dL Bilirubin, Total 0.2 LAB ALKP 32-117 U/L Alkaline Phosphatase 101 LAB AST 13-35 U/L AST 30 LAB GLU 74-99 mg/dL Glucose High 102 Result Comment: The [place] Diabetes Association (ADA) provides guidance for cutoff [...] Standards of Medical Care in Diabetes 2016, [place] Diabetes Association. Diabetes Care. 2016.39(Suppl 1). LAB [...] actual GFR. Performed By: #### CMP #### [facility] [address] [place], [place] [address] RENAL FUNCTION PANEL Collected: 11/12/2017 Status: F Source: [place] 12:40 PM [facility] REPOSITORY TYPE CODE TESTS RESULT OUT OF REFERENCE UNITS RANGE LAB ALB 3.9-4.9 g/dL Low Albumin 3.5 LAB CA 8.5-10.2 mg/dL Low Calcium, Total 8.1 LAB PHOS 2.7-4.8 mg/dL Phosphorus 3.3 LAB GLU 74-99 mg/dL Glucose High 102 Result Comment: The [place] Diabetes Association (ADA) provides guidance for cutoff [...] Standards of Medical Care in Diabetes 2016, [place] Diabetes Association. Diabetes Care. 2016.39(Suppl 1). LAB [...] actual GFR. Performed By: #### RFP #### [facility] [address] [place], [place] [address] TACROLIMUS / [id number] Collected: 11/12/2017 Status: F Source: [place] 12:40 PM [facility] REPOSITORY TYPE CODE TESTS RESULT OUT [...] Test performed by chemiluminescent immunoassay using Solares [address]. Performed By: #### [id number] #### [facility] [address] [place], [place] [address] KESHA HEMATOCRIT Collected: 11/03/2017 Status: F Source: [place] 10:49 AM [facility] REPOSITORY TYPE CODE TESTS RESULT OUT OF REFERENCE UNITS RANGE LAB WHCT 36.0-46.0 % Low Kesha Hematocrit 33.5 Result Comment: Test performed at: [facility], [address] [place] [address]. KESHA HEMOGLOBIN Collected: 11/03/2017 Status: F Source: [place] 10:49 AM [facility] REPOSITORY TYPE CODE TESTS RESULT OUT OF REFERENCE UNITS RANGE LAB WHGB 11.5-15.5 g/dL Low Kesha Hemoglobin 10.9 Result Comment: Test performed at: [facility], [address] [place] [address]. PROGRESS Observed: 10/22/2017 Status: COMPLETED Source: [place] 4:42 PM [facility] REPOSITORY HNO ID: [id number] Author: Wil To Service: (none) Author Type: [...] (VITAMIN D3) 50,000 unit cap capsule - kabsba-rdlzbcvh-tjldtjs (CREON) 12,000-38,000 -60,000 unit cpDR - Calcium [...] MD CNOV Observed: 10/22/2017 Status: COMPLETED Source: [place] 4:20 PM [facility] REPOSITORY Office Visit (INTMWS) VAL VALVERDE ([id number]) 1970 F TRN Date Time Provider Department [...] (VITAMIN D3) 50,000 unit cap capsule - zmlrtd-jqfhjkyh-qayypal (CREON) 12,000-38,000 -60,000 unit cpDR - Calcium [...] WIL TO MD Referring Provider: WIL TO [[id number]] Allergies As of Date: 10/22/2017 Noted Allergy [...] * Patient not taking: Reported on 10/20/2017 ICCEJC-ULZCQFTM-CAMIWLT 12,00* Take 1 capsule by mouth three* [...] ulcer disease with hemorrhage [K27.4] INVALID FOR*12/30/2016 Afesb-mf-vkzayfs kidney injury (HCC) [N17.9, N1*INVALID FOR*12/30/2016 More... [...] KESHA HEMATOCRIT Collected: 10/20/2017 Status: F Source: [place] 2:19 PM [facility] REPOSITORY TYPE CODE TESTS RESULT OUT OF REFERENCE UNITS RANGE LAB WHCT 36.0-46.0 % Low [place] Hematocrit 29.2 Result Comment: Test performed at: [address] [place] [address]. KESHA HEMOGLOBIN Collected: 10/20/2017 Status: F Source: [place] 2:19 PM [facility] REPOSITORY TYPE CODE TESTS RESULT OUT OF REFERENCE UNITS RANGE LAB WHGB 11.5-15.5 g/dL Low Kesha Hemoglobin 9.3 Result Comment: Test performed at: [address] [place] [address]. SURGICAL PATHOLOGY Observed: 10/14/2017 Status: F Source: [place] 10:10 AM [facility] REPOSITORY PROCEDURE REPORT Specimen originated from [facility] Specimen #: [id number] Submitting Physician: KERI ADAME CNP SPECIMEN SUBMITTED A: 1 BLOCK ([id number]) PROCEDURE(S) CISH HPV LOW RISK Date Ordered: 10/14/2017 Date Reported: 10/16/2017 Procedure Results and Interpretation At request of the clinician, chromogenic in situ hybridization (CISH) studies for high risk HPV were obtained on case [id number] A. The results of HPV CISH testing are negative for high risk HPV. Clinical correlation is recommended. Laboratory Developed Test (LDT) Disclaimer: Positive and negative controls stain appropriately. Performance characteristics of immunohistochemical, immunofluorescent and chromogenic in-situ hybridization tests have been determined by [facility]'s [facility] [place] ([facility]) in a manner consistent with CLIA requirements. One or more of these tests have not been cleared or approved by the FDA. [facility] is regulated under CLIA as qualified to perform high-complexity testing. These tests are used for clinical purposes. They should not be regarded as investigational or for research. JOSE//hood/10/16/17 Procedure Pathologist: Mary Vasquez M.D. Electronic Signature CLINICAL DATA None provided. Date of Report: Date of Procedure: 10/14/2017 Date of Receipt: 10/14/2017 Submitted: KERI ADAME CNP Location: [facility] Diagnostic interpretation performed at [facility], [address] [place] [id number]. PROGRESS Observed: 10/09/2017 Status: COMPLETED Source: [place] 3:24 PM [facility] REPOSITORY HNO ID: [id number] Author: Asia Mendoza (Pa) Service: (none) Author Type: Physician Fleet Driver Type: Progress Notes Filed: 10/09/2017 3:26 PM Note Text: Discussed w/pathologist who will perform CISH testing to help determine high-risk vs low-risk condyloma, based upon these results will make further follow-up recommendations RENAL FUNCTION PANEL Collected: 10/06/2017 Status: F Source: [place] 2:41 [facility] REPOSITORY TYPE CODE TESTS RESULT OUT OF REFERENCE UNITS RANGE LAB ALB 3.9-4.9 g/dL 3.4 Low Albumin LAB CA 8.5-10.2 mg/dL 8.7 Calcium, Total LAB PHOS 2.7-4.8 mg/dL Unable to Phosphorus assay. Specimen significantly hemolyzed. LAB GLU 74-99 mg/dL 116 High Glucose Result Comment: The [place] Diabetes Association (ADA) provides guidance for cutoff [...] Standards of Medical Care in Diabetes 2016, [place] Diabetes Association. Diabetes Care. 2016.39(Suppl 1). LAB [...] actual GFR. Performed By: #### RFP #### [facility] [address] [place], [place] [address] TACROLIMUS / [id number] Collected: 10/06/2017 Status: F Source: [place] 2:41 PM [facility] REPOSITORY TYPE CODE TESTS RESULT OUT [...] Test performed by chemiluminescent immunoassay using Solares Verteego ([employer]). Performed By: #### [id number] #### [place] [address] BK VIRUS PCR,QUANT,P Collected: 10/06/2017 Status: F Source: [place] 2:41 [facility] REPOSITORY TYPE CODE TESTS RESULT OUT OF REFERENCE UNITS RANGE LAB BKVDNA copies/mL BK Negative for Virus DNA BK virus DNA QN PCR by PCR Result Comment: Reference Range: Negative for BK virus DNA The Linear Range of this assay is 500 copies/mL to 5,000,000 copies/mL. This test was developed and its performance characteristics determined by [facility]'s [facility] [place] ([facility]). It has not been cleared or approved by the FDA. [facility] is regulated under CLIA as qualified to perform high-complexity testing. This test is used for clinical purposes. It should not be regarded as investigational or for research. Performed By: #### BKQUAN #### [facility] [place] [id number] MISC SEND OUT TEST Collected: 10/06/2017 Status: F Source: [place] 2:40 PM [facility] REPOSITORY TYPE CODE TESTS RESULT OUT OF REFERENCE UNITS RANGE LAB NAME1 CYTOMEGALOVIRUS Test GENOTYPE LAB RESU1 View results in Test Scanned Documents Results link when available. Performed By: #### WILD13 #### [place] [address] [place] [address] PROTIME Collected: 10/06/2017 Status: F Source: [place] 2:39 PM [facility] REPOSITORY TYPE CODE TESTS RESULT OUT OF RANGE REFERENCE UNITS LAB PSEC 9.7-13.0 sec Low PT Sec 9.4 Result Comment: Result rechecked. LAB INR 0.9-1.3 Low PT INR <0.9 Result Comment: Vitamin K Antagonist (VKA) Therapeutic Range: INR 2 to 3 (Target INR of 2.5) Note: For patients treated with VKA drugs, such as warfarin, the [place] College [employer] Chest Physicians 2012 Guideline recommends [...] Chest 2012, 141:7S-47S Jin RA, et al. [facility] 2017, 70: 252-289 Result rechecked. Sample checked for a clot. Performed By: #### PT, PREALB, B12, SERFOL, CBCDIF, FERR, CMP, MG1, IRON, VITD, TUYET, MMA #### [facility] [address] [place] [id number] #### VITB6, B1VIT #### [facility] [address] [place] [address] [phone] PREALBUMIN Collected: 10/06/2017 Status: F Source: [place] 2:39 PM [facility] REPOSITORY TYPE CODE TESTS RESULT OUT OF REFERENCE UNITS RANGE LAB PREALB 17-36 mg/dL Prealbumin 34 Performed By: #### PT, PREALB, B12, SERFOL, CBCDIF, FERR, CMP, MG1, IRON, VITD, TUYET, MMA #### [facility] [address] [place] [id number] #### VITB6, B1VIT #### [facility] [address] [address] [phone] VITAMIN B12 Collected: 10/06/2017 Status: F Source: [place] 2:39 PM [facility] REPOSITORY TYPE CODE TESTS RESULT OUT OF REFERENCE UNITS RANGE LAB B12 232-1245 pg/mL Vitamin B12 1238 Performed By: #### PT, PREALB, B12, SERFOL, CBCDIF, FERR, CMP, MG1, IRON, VITD, TUYET, MMA #### [facility] [address] [place] [phone] #### VITB6, B1VIT #### [address] [address] [phone] FOLATE, SERUM Collected: 10/06/2017 Status: F Source: [place] 2:39 [facility] REPOSITORY TYPE CODE TESTS RESULT [...] III (Folate III) [package insert V 1.0 Upper Sorbian]. [facility], [place], [place]: March 2015. Performed By: #### PT, PREALB, B12, SERFOL, CBCDIF, FERR, CMP, MG1, IRON, VITD, TUYET, MMA #### [facility] [address] [place] [phone] #### VITB6, B1VIT #### [address] [address] [phone] CBC AND DIFFERENTIAL Collected: 10/06/2017 Status: F Source: [place] 2:39 PM [facility] REPOSITORY TYPE CODE TESTS RESULT OUT [...] Low Abs Lymph 0.58 LAB AMONO % Rowan% 2.9 LAB AAMONO <0.87 k/uL Abs Rowan 0.40 LAB AEOS % Eosin% 0.3 LAB [...] CMP, MG1, IRON, VITD, TUYET, MMA #### [facility] [address] [place], [place] [address] #### VITB6, B1VIT #### [facility] [address] [place] [address] [phone] FERRITIN Collected: 10/06/2017 Status: F Source: [place] 2:39 PM [facility] REPOSITORY TYPE CODE TESTS RESULT OUT OF REFERENCE UNITS RANGE LAB FERR 14.7-205.1 ng/mL High Ferritin 1357.0 Performed By: #### PT, PREALB, B12, SERFOL, CBCDIF, FERR, CMP, MG1, IRON, VITD, TUYET, MMA #### [facility] [address] [place], [place] [address] #### VITB6, B1VIT #### [facility] [address] [place] [address] [phone] COMP METABOLIC PANEL Collected: 10/06/2017 Status: F Source: [place] 2:39 PM [facility] REPOSITORY TYPE CODE [...] mg/dL High Glucose 113 Result Comment: The [place] Diabetes Association (ADA) provides guidance for cutoff [...] Standards of Medical Care in Diabetes 2016, [place] Diabetes Association. Diabetes Care. 2016.39(Suppl 1). LAB [...] CMP, MG1, IRON, VITD, TUYET, MMA #### [place] [phone] #### VITB6, B1VIT #### [facility] [address] [address] [phone] MAGNESIUM Collected: 10/06/2017 Status: F Source: [place] 2:39 [facility] REPOSITORY TYPE CODE TESTS RESULT OUT OF REFERENCE UNITS RANGE LAB MG 1.7-2.3 mg/dL Magnesium 2.2 Performed By: #### PT, PREALB, B12, SERFOL, CBCDIF, FERR, CMP, MG1, IRON, VITD, TUYET, MMA #### [place] [phone] #### VITB6, B1VIT #### [facility] [address] [address] [phone] IRON AND TIBC Collected: 10/06/2017 Status: F Source: [place] 2:39 [facility] REPOSITORY TYPE CODE TESTS RESULT OUT OF REFERENCE UNITS RANGE LAB IRN 41-186 ug/dL Iron 65 LAB TIBC 232-386 ug/dL TIBC 237 LAB SAT 15-57 % Transferrin Saturatn 27 Performed By: #### PT, PREALB, B12, SERFOL, CBCDIF, FERR, CMP, MG1, IRON, VITD, TUYET, MMA #### [place] [phone] #### VITB6, B1VIT #### [facility] [address] [place] [address] [phone] VITAMIN D 25 HYDROXY Collected: 10/06/2017 Status: F Source: [place] 2:39 [facility] REPOSITORY TYPE CODE TESTS RESULT [...] CMP, MG1, IRON, VITD, TUYET, MMA #### [facility] [address] [place] [address] #### VITB6, B1VIT #### [address] [address] [phone] VITAMIN A Collected: 10/06/2017 Status: F Source: [place] 2:39 [facility] REPOSITORY TYPE CODE TESTS RESULT OUT OF REFERENCE UNITS RANGE LAB TUYET 0.30-1.20 mg/L High Vitamin A 1.36 Result Comment: This test was developed and its performance characteristics determined by [facility]'s [facility] [place] ([facility]). It has not been cleared or approved by the FDA. [facility] is regulated under CLIA as qualified to perform high-complexity testing. This test is used for clinical purposes. It should not be regarded as investigational or for research. Performed By: #### PT, PREALB, B12, SERFOL, CBCDIF, FERR, CMP, MG1, IRON, VITD, TUYET, MMA #### [facility] [address] [place] [address] #### VITB6, B1VIT #### [facility] [address] [address] [phone] METHYLMALONIC ACID Collected: 10/06/2017 Status: F Source: [place] 2:39 [facility] REPOSITORY TYPE CODE TESTS RESULT OUT OF REFERENCE UNITS RANGE LAB MMA 79-376 nmol/L Methylmalonic High Acid 762 Result Comment: This test was developed and its performance characteristics determined by [facility]'s [facility] [place] ([facility]). It has not been cleared or approved by the FDA. -[facility] is regulated under CLIA as qualified to perform high-complexity testing. This test is used for clinical purposes. It should not be regarded as investigational or for research. Performed By: #### PT, PREALB, B12, SERFOL, CBCDIF, FERR, CMP, MG1, IRON, VITD, TUYET, MMA #### [facility] [address] [place] [address] #### VITB6, B1VIT #### [address] [address] [phone] VITAMIN B6 PLASMA Collected: 10/06/2017 Status: F Source: [place] 2:39 [facility] REPOSITORY TYPE CODE TESTS RESULT OUT OF REFERENCE UNITS RANGE LAB VITB6 20.0-125.0 nmol/L Vitamin B6 71.4 Plasma Result Comment: (NOTE) INTERPRETIVE INFORMATION: Vitamin B6 (Pyridoxal 5-Phosphate) Pyridoxal 5'-phosphate measured in a specimen collected following an 8-hour or overnight fast accurately indicates vitamin B6 nutritional status. Non-fasting specimen concentration reflects recent vitamin intake. Test developed and characteristics determined by [facility]. See Compliance Statement B: [employer]/ Performed by [facility], [address] [place] [id number] [email or web address], Jeff Cabral MD, Lab. Director Performed By: #### PT, PREALB, B12, SERFOL, CBCDIF, FERR, CMP, MG1, IRON, VITD, TUYET, MMA #### [facility] [address] [place], [place] [address] #### VITB6, B1VIT #### [employer] [address] [address] [phone] VITAMIN B1,WHOLE BLD Collected: 10/06/2017 Status: F Source: [place] 2:39 PM [facility] REPOSITORY TYPE CODE TESTS RESULT OUT [...] measured. Test developed and characteristics determined by [facility]. See Compliance Statement B: [employer]/ Performed by [facility], [address] [place] [address] [email or web address], Jeff Cabral MD, Lab. Director Performed By: #### PT, PREALB, B12, SERFOL, CBCDIF, FERR, CMP, MG1, IRON, VITD, TUYET, MMA #### [facility] [address] [place] [address] #### VITB6, B1VIT #### [facility] [address] [place] [address] [phone] CNOV Observed: 10/06/2017 Status: COMPLETED Source: [place] 12:40 PM [facility] REPOSITORY Office Visit (GASTA5) VAL VALVERDE ([id number]) 1970 F TRN Date Time Provider Department 10/06/17 12:40 PM AUSTEN PIERSON GASTA5 During your visit today, we recorded the following information about you: Temperature Pulse Blood pressure Weight 98.6 degrees 107/minute 150/85 35.7 kg Height 1.499 m Austen Pierson MD 10/06/2017 5:57 PM Signed New Patient/Consult [address] - Seen with REASON FOR VISIT Valeren Newtonpedro is a 46 year old woman who [...] for weight loss. Originally, she was from [facility] [place] and was adopted by a family in the [facility] at 1-1/2 years of age. In [...] then gives her diarrhea. She has tried [facility] [employer], but while she has it [...] children: 0 Occupational History Occupation Employer Comment [employer] Social History Main Topics Smoking status: Former [...] History Narrative , no children Works at [employer] Occupation: on disability FAMILY HISTORY Has anyone [...] D DEFICIENCY Disp: 12 capsule Rfl: 1 oucuza-msxgmnrd-frbolak (CREON) 12,000-38,000 -60,000 unit cpDR Take 1 [...] RECORDS REVIEWED 11/07/2015 (Dr. Jacob Belcher / [facility]) EGD. Findings: The examined esophagus was normal. [...] HSV inclusions. 05/30/2016 (Dr. Andrey Barajas / [facility]) EGD. Findings: The esophagus was normal. LES [...] CMV-related enteritis. 08/01/2016 (Dr. Andrey Barajas / [facility]) EGD. Findings: Localized candidiasis was found in [...] Andrey Barajas AND Dr. Wilma Jones / [facility]) EGD. Findings: The examined esophagus was normal. [...] Helicobacter pylori. 11/01/2016 (Dr. Sahil Kurtz / [facility]) EGD. Findings: No gross lesions were noted [...] examined jejunal lumen appeared grossly normal. 11/17/2016 ([facility] / LAB) Gastric remnant, Biopsies ? Acute and Chronic gastritis. Immunohistochemical stain for Helicobacter pylori is negative for organisms. Comment: There are no cytologic features of CMV infection identified. This was evaluated using a laboratory developed test. 12/20/2016 (Dr. Prabhu Dahl AND Dr. Delano Segovia / [place]) EGD. Findings: The examined esophagus was normal. Evidence of a Layne-en-Y gastrojejunostomy was found. This was not traversed. The aohbf-ov-pxddxrb limb was characterized by ulceration with a [...] appeared intact. 12/21/2016 (Dr. Ruby Hernández / [place]) EGD. Findings: The examined esophagus was normal. [...] lesion seen. 12/22/2016 (Dr. Jacob Cruz / [place]) EGD. Findings: The examined esophagus was normal. [...] 39 cm. 12/25/2016 (Dr. Ruby Hernández / [place]) EGD. Findings: The examined esophagus was normal. [...] stained sections. 02/19/2017 (Dr. Raman Almeida / [place]) EGD. Findings: There is no endoscopic evidence [...] HPI: This is a 46-year-old woman from [facility] who was adopted into a family in the [facility] at 1-1/2 years of age. In [...] 11.5 - 15.5 g/dL 9.8 (L) Hematocrit, [place] 36.0 - 46.0 % 31.0 (L) Assessment [...] the OWYN Supplements or going back to [facility] [employer] [facility] with Munith Milk. We also discussed tube feeding and/or [...] Kidney transplant Osteopenia PLAN Patient has a [facility] account. Labs as ordered - download to [facility] To alter diet - Magalys dedrick and [...] or something similar Referring Provider: ANDREY BARAJAS [[id number]] Allergies As of Date: 10/06/2017 Noted Allergy [...] [M85.80] Order(s):CBC + DIFF [SQCBCDIF] Order #: [id number] FUTURE COMP METABOLIC PANEL [SQCMP] Order #: [id number] FUTURE FERRITIN BLD [SQFERR] Order #: [id number] FUTURE FOLATE SERUM [SQSERFOL] Order #: [id number] FUTURE IRON + TIBC [SQIRON] Order #: [id number] FUTURE MAGNESIUM BLD [SQMG1] Order #: [id number] FUTURE METHYLMALONIC ACID [SQMMA] Order #: [id number] FUTURE PREALBUMIN BLD [SQPREALB] Order #: [id number] FUTURE PROTHROMBIN TIME/PT [SQPT] Order #: [id number] FUTURE VITAMIN D 25 HYDROXY [SQVITD] Order #: [id number] FUTURE VITAMIN B6/PYRIDOXIN [SQVITB6] Order #: [id number] FUTURE VITAMIN B12 BLOOD [SQB12] Order #: [id number] FUTURE VITAMIN B1/THIAMINE, WHOLE BLD [REW0VHC] Order #: [id number] FUTURE VITAMIN A/RETINOL [SQVITA] Order #: [id number] FUTURE Prescriptions as of 10/06/2017 Sig: BIOTIN [...] Take 1 capsule by mouth once * [id number]-[id number] 12,00* Take 1 capsule by mouth three* [...] ulcer disease with hemorrhage [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 [...] [place] HEMATOCRIT Collected: 10/06/2017 Status: F Source: [place] 10:25 AM [facility] REPOSITORY TYPE CODE TESTS RESULT OUT OF REFERENCE UNITS RANGE LAB WHCT 36.0-46.0 % Low [place] Hematocrit 33.2 Result Comment: Test performed at: [facility] [place], [address] [place] [address]. [place] HEMOGLOBIN Collected: 10/06/2017 Status: F Source: [place] 10:25 AM [facility] REPOSITORY TYPE CODE TESTS RESULT OUT OF REFERENCE UNITS RANGE LAB WHGB 11.5-15.5 g/dL Low [place] Hemoglobin 10.7 Result Comment: Test performed at: [facility], [address] [place] [address]. PROGRESS Observed: 10/03/2017 Status: COMPLETED Source: [place] 9:43 AM [facility] REPOSITORY HNO ID: [id number] Author: Marietta Moralez LPN Service: (none) Author [...] CMV-related enteritis. 08/01/2016 (Dr. Andrey Barajas / [place]) EGD. Findings: Localized candidiasis was found in [...] Andrey Barajas AND Dr. Wilma Jones / [place]) EGD. Findings: The examined esophagus was normal. [...] Helicobacter pylori. 11/01/2016 (Dr. Sahil Kurtz / [place]) EGD. Findings: No gross lesions were noted [...] examined jejunal lumen appeared grossly normal. 11/17/2016 ([facility] / LAB) Gastric remnant, Biopsies ? Acute and Chronic gastritis. Immunohistochemical stain for Helicobacter pylori is negative for organisms. Comment: There are no cytologic features of CMV infection identified. This was evaluated using a laboratory developed test. 12/20/2016 (Dr. Prabhu Dahl AND Dr. Delano Segovia / [place]) EGD. Findings: The examined esophagus was normal. Evidence of a Layne-en-Y gastrojejunostomy was found. This was not traversed. The pbyew-wl-hxadveb limb was characterized by ulceration with a [...] appeared intact. 12/21/2016 (Dr. Ruby Hernández / [place]) EGD. Findings: The examined esophagus was normal. [...] 39 cm. 12/25/2016 (Dr. Ruby Hernández / [place]) EGD. Findings: The examined esophagus was normal. [...] stained sections. 02/19/2017 (Dr. Raman Almeida / [place]) EGD. Findings: There is no endoscopic evidence [...] HPI: This is a 46-year-old woman from [facility] who was adopted into a family in [...] indicated. HOSP Observed: 10/03/2017 Status: COMPLETED Source: [place] 12:00 AM [facility] REPOSITORY Patient Update (NUMNA5) VAL VALVERDE ([id number]) 1970 F TRN Date Time Provider Department 10/03/17 AUSTEN PIERSON NUMNA5 During your visit today, we recorded the following information about you: Marietta Moralez DRAFTING SUPERVISOR 10/08/2017 4:29 PM Signed Val [place]. 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 Andrey Barajas / [place]) EGD. Findings: Localized candidiasis was found in [...] Andrey Barajas AND Dr. Wilma Jones / [place]) EGD. Findings: The examined esophagus was normal. [...] Helicobacter pylori. 11/01/2016 (Dr. Sahil Kurtz / [place]) EGD. Findings: No gross lesions were noted [...] examined jejunal lumen appeared grossly normal. 11/17/2016 ([facility] / [facility]) Gastric remnant, Biopsies ? Acute and Chronic gastritis. Immunohistochemical stain for Helicobacter pylori is negative for organisms. Comment: There are no cytologic features of CMV infection identified. This was evaluated using a laboratory developed test. 12/20/2016 (Dr. Prabhu Dahl AND Dr. Delano Segovia / [place]) EGD. Findings: The examined esophagus was normal. Evidence of a Layne-en-Y gastrojejunostomy was found. This was not traversed. The fvifv-ek-edxbcbe limb was characterized by ulceration with a [...] appeared intact. 12/21/2016 (Dr. Ruby Hernández / [place]) EGD. Findings: The examined esophagus was normal. [...] lesion seen. 12/22/2016 (Dr. Jacob Cruz / [place]) EGD. Findings: The examined esophagus was normal. [...] 39 cm. 12/25/2016 (Dr. Ruby Hernández / [place]) EGD. Findings: The examined esophagus was normal. [...] stained sections. 02/19/2017 (Dr. Raman Almeida / [place]) EGD. Findings: There is no endoscopic evidence [...] HPI: This is a 46-year-old woman from [facility] who was adopted into a family in the [place] at 1-1/2 years of age. 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 She underwent postoperative chemotherapy [...] Date Reviewed: 09/29/2017 Reviewed by: Reyes Brian (Opal) OPAL Galvez [...] Take 1 capsule by mouth once * [id number]-WIJISWH 12,00* Take 1 capsule by mouth three* [...] ulcer disease with hemorrhage [K27.4] INVALID FOR*12/30/2016 Ydyru-hl-eqcghme kidney injury (HCC) [N17.9, N1*INVALID FOR*12/30/2016 More... [...] 10/08/17 PROGRESS Observed: 10/02/2017 Status: COMPLETED Source: [place] 7:15 PM [facility] REPOSITORY HNO ID: [id number] Author: Austen Pierson Service: (none) Author Type: [...] for weight loss. Originally, she was from [facility] and was adopted by a family in the [place] at 1-1/2 years of age. In [...] then gives her diarrhea. She has tried [facility] [employer] [facility], but while she has it [...] children: 0 Occupational History Occupation Employer Comment [employer] Social History Main Topics Smoking status: Former [...] History Narrative , no children Works at [employer] parts Occupation: on disability FAMILY HISTORY Has [...] D DEFICIENCY Disp: 12 capsule Rfl: 1 efofzx-ldxecsvc-irnnxsg (CREON) 12,000-38,000 -60,000 unit cpDR Take 1 [...] RECORDS REVIEWED 11/07/2015 (Dr. Jacob Belcher / [place]) EGD. Findings: The examined esophagus was normal. [...] HSV inclusions. 05/30/2016 (Dr. Andrey Barajas / [place]) EGD. Findings: The esophagus was normal. LES [...] CMV-related enteritis. 08/01/2016 (Dr. Andrey Barajas / [place]) EGD. Findings: Localized candidiasis was found in [...] Andrey Barajas AND Dr. Wilma Jones / [place]) EGD. Findings: The examined esophagus was normal. [...] Helicobacter pylori. 11/01/2016 (Dr. Sahil Kurtz / [place]) EGD. Findings: No gross lesions were noted [...] examined jejunal lumen appeared grossly normal. 11/17/2016 ([facility] / LAB) Gastric remnant, Biopsies ? Acute and Chronic gastritis. Immunohistochemical stain for Helicobacter pylori is negative for organisms. Comment: There are no cytologic features of CMV infection identified. This was evaluated using a laboratory developed test. 12/20/2016 (Dr. Prabhu Dahl AND Dr. Delano Segovia / [place]) EGD. Findings: The examined esophagus was normal. Evidence of a Layne-en-Y gastrojejunostomy was found. This was not traversed. The lrjmb-jy-sguovrc limb was characterized by ulceration with a [...] appeared intact. 12/21/2016 (Dr. Ruby Hernández / [place]) EGD. Findings: The examined esophagus was normal. [...] lesion seen. 12/22/2016 (Dr. Jacob Cruz / [place]) EGD. Findings: The examined esophagus was normal. [...] 39 cm. 12/25/2016 (Dr. Ruby Hernández / [place]) EGD. Findings: The examined esophagus was normal. [...] stained sections. 02/19/2017 (Dr. Raman Almeida / [place]) EGD. Findings: There is no endoscopic evidence [...] HPI: This is a 46-year-old woman from [facility] who was adopted into a family in [...] the OWYN Supplements or going back to [facility] with Munith Milk. We also discussed tube feeding and/or [...] Kidney transplant Osteopenia PLAN Patient has a [employer] [facility] account. Labs as ordered - download to [facility] To alter diet - Magalys dedrick and try to increase intake, e.g., OWYN sample and information Consider trial of tube feeding Nutrition Therapy consultation in the near future RTC about 3-[address] Barajas and Bri, PCP Austen Pierson MD October 06, 2017 PROGRESS Observed: 10/01/2017 Status: COMPLETED Source: [place] 9:35 AM [facility] REPOSITORY HNO ID: [id number] Author: Bryan Ruggiero (Dayanna) Hanane Service: (none) [...] Pressure-acceptable on current rx -Anemia-on RICKY at [place], hgb 8.5 Chronic thrombocytopenia PLAN: increase her amlodipine to 5 mg Oral hydration as tolerated Repeat labs 1-2 weeks Hernandezibe Attestation: By signing my name below, IPetr, attest that this documentation has been prepared under the direction and in the presence of Bryan Koo RN, BORDER MACHINE OPERATOR. Electronically Signed: chau Contreras, October 01, 2017 9:35 AM Provider Attestation: I, Bryan Koo, RN, BORDER MACHINE OPERATOR, personally performed the services described in this documentation. All medical record entries made by the hernandezibcody were at my direction and in my presence. I have reviewed the chart and discharge instructions (if applicable) and agree that the record reflects my personal performance and is accurate and complete. Bryan Koo RN, BORDER MACHINE OPERATOR October 01, 2017 9:35 AM [place] HEMATOCRIT Collected: 09/29/2017 Status: F Source: [place] 11:16 AM [facility] REPOSITORY TYPE CODE TESTS RESULT OUT OF REFERENCE UNITS RANGE LAB WHCT 36.0-46.0 % Low [place] Hematocrit 31.0 Result Comment: Test performed at: [address] [place] [address]. [place] HEMOGLOBIN Collected: 09/29/2017 Status: F Source: [place] 11:16 AM [facility] REPOSITORY TYPE CODE TESTS RESULT OUT OF REFERENCE UNITS RANGE LAB WHGB 11.5-15.5 g/dL Low [place] Hemoglobin 9.8 Result Comment: Test performed at: [facility], [address] [place] [address]., [place] [address]. COMP METABOLIC PANEL Collected: 09/24/2017 Status: F Source: [place] 1:10 PM [facility] REPOSITORY TYPE CODE TESTS RESULT OUT [...] mg/dL Glucose High 111 Result Comment: The [place] Diabetes Association (ADA) provides guidance for cutoff [...] Standards of Medical Care in Diabetes 2016, [place] Diabetes Association. Diabetes Care. 2016.39(Suppl 1). LAB [...] actual GFR. Performed By: #### CMP #### [facility] [address] [place], [place] [address] TACROLIMUS / [id number] Collected: 09/24/2017 Status: F Source: [place] 1:10 PM [facility] REPOSITORY TYPE CODE [...] Test performed by chemiluminescent immunoassay using [address]. Performed By: #### FK506 #### [facility] [address] [place], [place] [address] CNCO Observed: 09/24/2017 Status: COMPLETED Source: [place] 12:00 AM [facility] REPOSITORY Letter Text September 24, 2017 Val [place] [id number] [address] [address] Dear Ms. [place], In the event you are not able to come to your appointment, please contact us to cancel so that we can accommodate other patients who are waiting to be seen by our specialists. The following options are available to assist you with cancelling your appointment: You may notify the [facility] Call Center at [phone]. You may notify your provider's office directly. You may view the details of your upcoming appointments using ID AMERICA on your computer or mobile device. Appointments can be confirmed or cancelled within [facility]. Patients can enroll to receive a text message reminder the day before their appointment. Here's what you need to know: Enroll by simply texting 4clinictext to [phone]. Your cell phone number must be registered with a [facility] Appointment Lacquer Mixer. To confirm, please call [phone]. Patients can opt in or out at any time. You must be 18 years or older to receive the text reminder Sincerely, [facility] Department of Gastroenterology AND Hepatology PROGRESS Observed: 09/16/2017 Status: COMPLETED Source: [place] 10:23 AM [facility] REPOSITORY HNO ID: [id number] Author: Asia Mendoza (Pa) Service: (none) Author Type: Physician Fleet Driver Type: Progress Notes Filed: 09/18/2017 11:12 AM Note Text: FOLLOW UP VISIT - POST OP NAME: Val Bright [facility] NO.: [id number] DATE OF SERVICE: 09/08/2017 : 1970 REFERRING [...] the past-reviewed importance of regular follow-up with BORDER MACHINE OPERATOR. Would also recommend consideration for possible anoscopy to evaluate for lesions in the anal canal. Patient verbalized understanding of above and agreed with the plan. 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 Smoke And Flame Specialist: PSCB Transcribe Date/Time: Sep 15 2017 4:55P Dictated by : WOODY RAMON MD This examination was interpreted and the report reviewed and electronically signed by: WOODY RAMON MD on Sep 15 2017 4:56PM EST [id number] PROGRESS Observed: 09/15/2017 Status: COMPLETED Source: [place] 2:59 PM [facility] REPOSITORY HNO ID: [id number] Author: Deshawn Smith (Rt) Malina Delcid Service: (none) Author Type: Stencil Cutter Type: Progress Notes Filed: 09/15/2017 3:03 PM [...] + CBC Collected: 09/15/2017 Status: F Source: [place] 11:35 AM [facility] REPOSITORY TYPE CODE TESTS RESULT OUT OF REFERENCE UNITS RANGE LAB WWBC 3.70-11.00 k/uL [place] High WBC 11.63 LAB WRBC 3.90-5.20 m/uL [place] Low RBC 2.69 LAB WHGB 11.5-15.5 g/dL [place] Low Hemoglobin 9.6 LAB WHCT 36.0-46.0 % [place] Low Hematocrit 29.9 LAB WMCV 80.0-100.0 fL [place] MCV Result checked and verified LAB WMCH 26.0-34.0 pg [place] High MCH 35.7 LAB WMCHC 30.5-36.0 g/dL [place] MCHC 32.1 LAB WRDW 11.5-15.0 % [place] High RDW 18.5 LAB WPLT 150-400 k/uL [place] Platelet Cnt 161 LAB WMPV 9.0-12.7 fL [place] MPV 10.9 Result Comment: Test performed at: [facility], [address] [place] [address] Rd[address] [place] [address]. LAB ABGRAN 1.45-7.50 k/uL High Absol 8.97 Gran Count IRON AND TIBC Collected: 09/15/2017 Status: F Source: [place] 11:35 AM [facility] REPOSITORY TYPE CODE TESTS RESULT OUT OF REFERENCE UNITS RANGE LAB IRN 41-186 ug/dL Iron 78 LAB TIBC 232-386 ug/dL Low TIBC 215 LAB SAT 15-57 % Transferrin Saturatn 36 Performed By: #### IRON, FERR #### [facility] [address] [address] FERRITIN Collected: 09/15/2017 Status: F Source: [place] 11:35 AM [facility] REPOSITORY TYPE CODE TESTS RESULT OUT OF REFERENCE UNITS RANGE LAB FERR 14.7-205.1 ng/mL High Ferritin 1220.0 Performed By: #### IRON, FERR #### [facility] [address] [address] IRON AND TIBC Collected: 09/08/2017 Status: F Source: [place] 11:07 AM [facility] REPOSITORY TYPE CODE TESTS RESULT OUT OF REFERENCE UNITS RANGE LAB IRN 41-186 ug/dL [place] 69 LAB TIBC 232-386 ug/dL Low TIBC 211 LAB SAT 15-57 % Transferrin Saturatn 33 Performed By: #### IRON, FERR #### [facility] [address] [address] FERRITIN Collected: 09/08/2017 Status: F Source: [place] 11:07 AM [facility] REPOSITORY TYPE CODE TESTS RESULT OUT OF REFERENCE UNITS RANGE LAB FERR 14.7-205.1 ng/mL High Ferritin 1282.0 Performed By: #### IRON, FERR #### [facility] [address] [address] [place] ABS GR + CBC Collected: 09/08/2017 Status: F Source: [place] 11:06 AM [facility] REPOSITORY TYPE CODE TESTS RESULT OUT OF REFERENCE UNITS RANGE LAB WWBC 3.70-11.00 k/uL [place] High WBC 13.60 LAB WRBC 3.90-5.20 m/uL Low [place] RBC 2.63 LAB WHGB 11.5-15.5 g/dL Low [place] Hemoglobin 9.2 LAB WHCT 36.0-46.0 % Low [place] Hematocrit 29.3 LAB WMCV 80.0-100.0 fL [place] High MCV 111.4 Result Comment: Result checked and verified LAB WMCH 26.0-34.0 pg High [place] MCH 35.0 LAB WMCHC 30.5-36.0 g/dL [place] MCHC 31.4 LAB WRDW 11.5-15.0 % High [place] RDW 19.1 LAB WPLT 150-400 k/uL [place] 173 Platelet Cnt LAB WMPV 9.0-12.7 fL [place] MPV 10.2 Result Comment: Test performed at: [facility], [address] [place] [address] Rd[address] [place] [address]. LAB ABGRAN 1.45-7.50 k/uL High Absol 10.68 Gran Count CNOV Observed: 09/08/2017 Status: COMPLETED Source: [place] 10:45 AM [facility] REPOSITORY Office Visit (GENSWS) VAL VALVERDE ([id number]) 1970 F TRN Date Time Provider Department 09/08/17 10:45 AM ASIA MENDOZA (PA) During your visit today, we recorded the following information about you: Pulse Blood pressure Weight 66/minute 160/90 36.3 kg Asia Mendoza PA-C 09/18/2017 11:12 AM Signed FOLLOW UP VISIT - POST OP NAME: Val Bright Abram [facility] NO.: [id number] DATE OF SERVICE: 09/08/2017 : 1970 REFERRING [...] the past-reviewed importance of regular follow-up with BORDER MACHINE OPERATOR. Would also recommend consideration for possible anoscopy [...] results had gone to incorrect provider in [facility] causing delay in receiving/reviewing results. PROCEDURE(S) CISH HPV LOW RISK ? Date Ordered: ?10/14/2017 ? ? ? Date Reported: ?10/16/2017 Procedure Results and Interpretation At request of the clinician, chromogenic in situ hybridization (CISH) studies for high risk HPV were obtained on case [id number]. The results of HPV CISH testing are negative for high risk HPV. Clinical correlation is recommended. Reviewed with Dr. Baldwin, per Dr. Baldwin no additional surgical surveillance required based on these results. Discussed with patient, who is instructed to follow up with us if she notes any new concerns or recurrent lesions. Patient verbalized understanding. Referring Provider: VANI BALDWIN [[id number]] Allergies As of Date: 09/08/2017 Noted Allergy [...] 1 capsule by mouth once * X [id number]-EPSUWKB 12,00* Take 1 capsule by mouth three* [...] ulcer disease with hemorrhage [K27.4] INVALID FOR*12/30/2016 Lbino-hb-quqenke kidney injury (HCC) [N17.9, N1*INVALID FOR*12/30/2016 More... [...] + CBC Collected: 09/01/2017 Status: F Source: [place] 4:11 PM [facility] REPOSITORY TYPE CODE TESTS RESULT OUT OF REFERENCE UNITS RANGE LAB WWBC 3.70-11.00 k/uL [place] High WBC 13.11 LAB WRBC 3.90-5.20 m/uL Low [place] RBC 2.75 LAB WHGB 11.5-15.5 g/dL Low [place] Hemoglobin 9.7 LAB WHCT 36.0-46.0 % Low [place] Hematocrit 31.0 LAB WMCV 80.0-100.0 fL [place] High MCV 112.7 LAB WMCH 26.0-34.0 pg [place] High MCH 35.3 LAB WMCHC 30.5-36.0 g/dL [place] MCHC 31.3 LAB WRDW 11.5-15.0 % [place] High RDW 18.7 LAB WPLT 150-400 k/uL [place] Platelet Cnt 211 LAB WMPV 9.0-12.7 fL [place] MPV 10.2 Result Comment: Test performed at: [address] [place] [address]. LAB ABGRAN 1.45-7.50 k/uL High Absol 11.79 Gran Count IRON AND TIBC Collected: 09/01/2017 Status: F Source: [place] 4:11 PM [facility] REPOSITORY TYPE CODE TESTS RESULT OUT OF REFERENCE UNITS RANGE LAB IRN 41-186 ug/dL Iron 71 LAB TIBC 232-386 ug/dL TIBC 243 LAB SAT 15-57 % Transferrin Saturatn 29 Performed By: #### IRON, FERR #### [facility] [address] [place], [place] [address] FERRITIN Collected: 09/01/2017 Status: F Source: [place] 4:11 PM [facility] REPOSITORY TYPE CODE TESTS RESULT OUT OF REFERENCE UNITS RANGE LAB FERR 14.7-205.1 ng/mL High Ferritin 712.5 Performed By: #### IRON, FERR #### [facility] [address] [place], [place] [address] PROCEDURE Observed: 08/31/2017 Status: COMPLETED Source: [place] 12:32 PM [facility] REPOSITORY HNO ID: [id number] Author: Vani Baldwin Service: (none) Author Type: [...] well. PROGRESS Observed: 08/31/2017 Status: COMPLETED Source: [place] 12:30 PM [facility] REPOSITORY HNO ID: [id number] Author: Vani Baldwin Service: (none) Author Type: Physician Type: Progress Notes Filed: 08/31/2017 12:36 PM Note Text: Patient here for excision of skin lesions of anal tissue. Tolerated well Follow up next week for wound check and discussion of results. CNOV Observed: 08/29/2017 Status: COMPLETED Source: [place] 1:00 PM [facility] REPOSITORY Office Visit (GENSWS) VAL VALVERDE ([id number]) 1970 F TRN Date Time Provider Department [...] to your office visit today with the [facility]. Instructions After SKIN EXCISION-SUTURES If [...] you should contact our office immediately @ [phone] and ask to be transferred to the [...] the procedure well. Referring Provider: KERI ADAME ([facility]) [[id number]] Allergies As of Date: 08/29/2017 Noted Allergy Reaction SULFA (SULFONAMIDE ANTIBIOTICS) 04/07/2001 4 - Hives Comments: hives NSAIDS (NON-STEROIDAL ANTI-INFLAM*04/23/2016 5 - Intolerance Date Reviewed: 08/29/2017 Reviewed by: Keri Briseno RN - Fully Assessed Reason for Visit: Procedure [88] Visit Diagnoses:Skin lesion [L98.9] Anal lesion [K62.9] Order(s):SURGICAL PATHOLOGY [[id number]] Order #: [id number] Prescriptions as of 08/29/2017 Sig: POLYSACCHARIDE IRON [...] Take 1 capsule by mouth once * [id number]-XRLVLLA 12,00* Take 1 capsule by mouth three* [...] ulcer disease with hemorrhage [K27.4] INVALID FOR*12/30/2016 Qmzlo-tt-tbfztvi kidney injury (HCC) [N17.9, N1*INVALID FOR*12/30/2016 More... [...] to your office visit today with the [facility]. Instructions After SKIN EXCISION-SUTURES If [...] you should contact our office immediately @ [phone] and ask to be transferred to the General Surgery department. Encounter Status:Closed by MD VANI BALDWIN on 08/31/17 PROGRESS Observed: 08/29/2017 Status: COMPLETED Source: [place] 12:56 PM [facility] REPOSITORY HNO ID: [id number] Author: Keri Briseno RN Service: (none) Author [...] SURGICAL PATHOLOGY Observed: 08/29/2017 Status: F Source: [place] 12:00 AM [facility] REPOSITORY Specimen originated from [facility] Specimen #: [id number] Submitting Physician: VANI BALDWIN MD FINAL DIAGNOSIS [...] in three cassettes. Gross examination performed at [facility], [address] [place] [address] 08/29/2017 11:39:52 PM Date of Report: 09/01/2017 Date of Procedure: 08/29/2017 Date of Receipt: 08/29/2017 Submitted by: VANI BALDWIN MD Location: [facility] A3 Diagnostic interpretation performed at [place] [address]. PROGRESS Observed: 08/27/2017 Status: COMPLETED Source: [place] 4:00 PM [facility] REPOSITORY HNO ID: [id number] Author: Alex Tian Service: (none) Author Type: Physician Type: Progress Notes Filed: 08/28/2017 8:55 AM Note Text: PATIENT NAME: Val Valverde. CLINIC NO: [id number]. ATTENDING PHYSICIAN: Alex Tian MD. DATE OF SERVICE: 08/27/2017 ?? DIAGNOSIS: Anemia of chronic disease secondary stage IV renal failure; status post partial gastrectomy for gastric cancer History of renal transplant. ?? HPI: This is a 46-year-old woman from [facility] who was adopted into a family in the [facility] at 1-1/2 years of age. In [...] 18 eGFR-All Other Races . 15 WBC, [place] 3.70 - 11.00 k/uL 12.39 (H) RBC, [place] 3.90 - 5.20 m/uL 2.72 (L) Hemoglobin, [place] 11.5 - 15.5 g/dL 9.4 (L) Hematocrit, [place] 36.0 - 46.0 % 29.9 (L) MCV, [place] 80.0 - 100.0 fL 109.9 (H) MCH, [place] 26.0 - 34.0 pg 34.6 (H) MCHC, [place] 30.5 - 36.0 g/dL 31.4 RDW, [place] 11.5 - 15.0 % 18.3 (H) Platelet Cnt, [place] 150 - 400 k/uL 232 MPV, [place] 9.0 - 12.7 fL 10.5 Absol Gran [...] MD CNOVSP Observed: 08/27/2017 Status: COMPLETED Source: [place] 3:20 PM [facility] REPOSITORY Visit (SP) Office (HEMAWS) VAL VALVERDE ([id number]) 1970 F TRN Date Time Provider Department [...] Signed PATIENT NAME: Val Valverde. CLINIC NO: [id number]. ATTENDING PHYSICIAN: Alex Tian MD. DATE OF SERVICE: 08/27/2017 ?? DIAGNOSIS: Anemia of chronic disease secondary stage IV renal failure; status post partial gastrectomy for gastric cancer History of renal transplant. ?? HPI: This is a 46-year-old woman from [facility] who was adopted into a family in the [facility] at 1-1/2 years of age. In [...] 18 eGFR-All Other Races . 15 WBC, [place] 3.70 - 11.00 k/uL 12.39 (H) RBC, [place] 3.90 - 5.20 m/uL 2.72 (L) Hemoglobin, [place] 11.5 - 15.5 g/dL 9.4 (L) Hematocrit, [place] 36.0 - 46.0 % 29.9 (L) MCV, [place] 80.0 - 100.0 fL 109.9 (H) MCH, [place] 26.0 - 34.0 pg 34.6 (H) MCHC, [place] 30.5 - 36.0 g/dL 31.4 RDW, [place] 11.5 - 15.0 % 18.3 (H) Platelet Cnt, [place] 150 - 400 k/uL 232 MPV, [place] 9.0 - 12.7 fL 10.5 Absol Gran [...] Alex Tian MD Referring Provider: ALEX TIAN [[id number]] Allergies As of Date: 08/27/2017 Noted Allergy [...] of Service: EST PATIENT VISIT LEVEL 4 [30030] Disposition: Return in about 6 months (around [...] Take 1 capsule by mouth once * UMXMWB-QDHQCPHJ-ILHBPVE 12,00* Take 1 capsule by mouth three* [...] 08/27/2017 3:32 PM >> ALANA MILLAN LPN Wed Aug 27, 2017 3:32 PM On hold Problem [...] ulcer disease with hemorrhage [K27.4] INVALID FOR*12/30/2016 Dflsf-ba-ublbzyt kidney injury (HCC) [N17.9, N1*INVALID FOR*12/30/2016 More... [...] x daily Visit Notes: >> Alana Millan OPAL FriAug 27, 2017 3:33 PM Status: Signed Est patient. Discuss recent labs and Aranesp. Alana Millan OPAL Encounter Status:Closed by ALEX TIAN MD on 08/28/17 KESHA ABS GR + CBC Collected: 08/25/2017 Status: F Source: [place] 11:10 AM [facility] REPOSITORY TYPE CODE TESTS RESULT OUT OF REFERENCE UNITS RANGE LAB WWBC 3.70-11.00 k/uL [place] High WBC 12.39 LAB WRBC 3.90-5.20 m/uL Low [place] RBC 2.72 LAB WHGB 11.5-15.5 g/dL Low [place] Hemoglobin 9.4 LAB WHCT 36.0-46.0 % Low [place] Hematocrit 29.9 LAB WMCV 80.0-100.0 fL [place] High MCV 109.9 LAB WMCH 26.0-34.0 pg [place] High MCH 34.6 LAB WMCHC 30.5-36.0 g/dL [place] MCHC 31.4 LAB WRDW 11.5-15.0 % [place] High RDW 18.3 LAB WPLT 150-400 k/uL [place] Platelet Cnt 232 LAB WMPV 9.0-12.7 fL Kesha MPV 10.5 Result Comment: Test performed at: [facility], [address] [place] [address] [address] [place] [address]. LAB ABGRAN 1.45-7.50 k/uL High Absol 9.12 Gran Count COMP METABOLIC PANEL Collected: 08/25/2017 Status: F Source: [place] 11:10 AM [facility] REPOSITORY TYPE CODE TESTS RESULT OUT [...] mg/dL Glucose High 101 Result Comment: The [place] Diabetes Association (ADA) provides guidance for cutoff [...] Standards of Medical Care in Diabetes 2016, [place] Diabetes Association. Diabetes Care. 2016.39(Suppl 1). LAB [...] GFR. Performed By: #### CMP, BKQUAN #### [facility] [address] [place], [place] [address] BK VIRUS PCR,QUANT,P Collected: 08/25/2017 Status: F Source: [place] 11:10 AM [facility] REPOSITORY TYPE CODE TESTS RESULT OUT OF REFERENCE UNITS RANGE LAB BKVDNA copies/mL BK Negative for Virus DNA BK virus DNA QN PCR by PCR Result Comment: Reference Range: Negative for BK virus DNA The Linear Range of this assay is 500 copies/mL to 5,000,000 copies/mL. This test was developed and its performance characteristics determined by [facility]'s [facility] [place] ([facility]). It has not been cleared or approved by the FDA. [facility] is regulated under CLIA as qualified to perform high-complexity testing. This test is used for clinical purposes. It should not be regarded as investigational or for research. Performed By: #### CMP, BKQUAN #### [place] [address] TACROLIMUS / [id number] Collected: 08/25/2017 Status: F Source: [place] 11:10 AM [facility] REPOSITORY TYPE CODE TESTS RESULT OUT [...] Test performed by chemiluminescent immunoassay using Solares [place]. Performed By: #### FK506 #### [place] [address] RETICULOCYTE Collected: 08/20/2017 Status: F Source: [place] 3:48 PM [facility] REPOSITORY TYPE CODE TESTS RESULT OUT OF REFERENCE UNITS RANGE LAB RETC 0.4-2.0 % High Retic% 3.5 LAB ABRET 0.0180-0.1000 M/uL Abs Retic 0.098 Performed By: #### RETIC, IRON, FERR #### [place] [address] IRON AND TIBC Collected: 08/20/2017 Status: F Source: [place] 3:48 PM [facility] REPOSITORY TYPE CODE TESTS RESULT OUT OF REFERENCE UNITS RANGE LAB IRN 41-186 ug/dL Low [place] 40 LAB TIBC 232-386 ug/dL Low TIBC 212 LAB SAT 15-57 % Transferrin Saturatn 19 Performed By: #### RETIC, IRON, FERR #### [facility] [address] [place], [place] [address] FERRITIN Collected: 08/20/2017 Status: F Source: [place] 3:48 PM [facility] REPOSITORY TYPE CODE TESTS RESULT OUT OF REFERENCE UNITS RANGE LAB FERR 14.7-205.1 ng/mL High Ferritin 878.4 Performed By: #### RETIC, IRON, FERR #### [facility] [address] [place], [place] [address] BD DXA - FOREARM Observed: 08/18/2017 Status: F Source: [place] SKELETON 12:06 PM [facility] REPOSITORY * * *Final Report* * [...] Osteoporosis Less than or equal to -2.5 Smoke And Flame Specialist: NELIA Transcribe Date/Time: Aug 19 2017 1:44P Dictated by : JULIAN BUSTAMANTE MD This examination was interpreted and the report reviewed and electronically signed by: JULIAN BUSTAMANTE MD on Aug 19 2017 1:45PM EST [id number] VFA WITH DXA - Observed: 08/18/2017 Status: F Source: [place] AXIAL SKELETON 12:06 PM [facility] REPOSITORY * * *Final Report* * * DATE OF EXAM: Aug 18 2017 12:06PM WRB 0802 - BD VFA WITH DXA - [...] Osteoporosis Less than or equal to -2.5 Smoke And Flame Specialist: [facility] Transcribe Date/Time: Aug 25 2017 1:40P Dictated by : JULIAN BUSTAMANTE MD This examination was interpreted and the report reviewed and electronically signed by: JULIAN BUSTAMANTE MD on Aug 25 2017 1:42PM EST [id number] PROGRESS Observed: 08/18/2017 Status: COMPLETED Source: [place] 11:36 AM [facility] REPOSITORY HNO ID: [id number] Author: Katiana Goncalves Service: (none) Author Type: (none) Type: Progress Notes Filed: 08/18/2017 12:05 PM Note Text: Val Valverde August 18, 2017 [id number] Double identification: Patient identified by name and Bone Density Completed. Katiana Norman Rt patient told of radiation jk 11:30 am not PROGRESS Observed: 08/11/2017 Status: COMPLETED Source: [place] 8:45 PM [facility] REPOSITORY HNO ID: [id number] Author: Vani Baldwin Service: (none) Author Type: Physician Type: Progress Notes Filed: 08/12/2017 7:12 PM Note Text: Val Valverde 1970 REFERRING PHYSICIAN: Keri Adame ([facility]), APR* CHIEF COMPLAINT: New Patient (hemorrhoids) HPI: [...] week. 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 FAMILY HISTORY Problem Relation [...] + CBC Collected: 08/11/2017 Status: F Source: [place] 2:49 PM [facility] REPOSITORY TYPE CODE TESTS RESULT OUT OF REFERENCE UNITS RANGE LAB WWBC 3.70-11.00 k/uL [place] High WBC 11.19 LAB WRBC 3.90-5.20 m/uL Low [place] RBC 2.55 LAB WHGB 11.5-15.5 g/dL Low [place] Hemoglobin 8.9 LAB WHCT 36.0-46.0 % Low [place] Hematocrit 27.7 LAB WMCV 80.0-100.0 fL [place] High MCV 108.6 LAB WMCH 26.0-34.0 pg [place] High MCH 34.9 LAB WMCHC 30.5-36.0 g/dL [place] MCHC 32.1 LAB WRDW 11.5-15.0 % [place] High RDW 17.7 LAB WPLT 150-400 k/uL [place] Platelet Cnt 296 LAB WMPV 9.0-12.7 fL [place] MPV 10.1 Result Comment: Test performed at: [facility], [address] [place] [address] Rd[address] [place] [address]. LAB ABGRAN 1.45-7.50 k/uL High Absol 10.16 Gran Count VITAMIN B12 Collected: 08/11/2017 Status: F Source: [place] 2:48 PM [facility] REPOSITORY TYPE CODE TESTS RESULT OUT OF REFERENCE UNITS RANGE LAB B12 232-1245 pg/mL High Vitamin B12 >2000 Performed By: #### B12 #### [facility] [address] [place], [place] [address] CNOV Observed: 08/11/2017 Status: COMPLETED Source: [place] 1:30 PM [facility] REPOSITORY Office Visit (GENSWS) VAL VALVERDE ([id number]) 1970 F TRN Date Time Provider Department 08/11/17 1:30 PM VANI BALDWIN During your visit today, we recorded the following information about you: Pulse Respiration Blood pressure Weight 110/minute 16/minute 118/72 33.1 kg Joana Esposito DRAFTING SUPERVISOR 08/11/2017 2:06 PM Addendum REVIEW OF SYSTEMS: [...] Baldwin MD 08/12/2017 7:12 PM Signed Val Deangelo Newtonail 1970 REFERRING PHYSICIAN: Keri Adame ([facility]), APR* CHIEF COMPLAINT: New Patient (hemorrhoids) HPI: [...] week. 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 [employer] Social History Main Topics Smoking status: Former [...] History Narrative , no children Works at [employer], [employer] FAMILY HISTORY Problem Relation Age of Onset [...] (Z94.0) Renal transplant, status post (D89.9) Immunosuppression ([facility]) Vani Baldwin MD Referring Provider: KERI ADAME ([facility]) [[id number]] Allergies As of Date: 08/11/2017 Noted Allergy [...] Take 1 capsule by mouth once * FSBYAI-MWNRDVBH-MRTKXLX 12,00* Take 1 capsule by mouth three* [...] ulcer disease with hemorrhage [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 [...] More... Visit Notes: >> Joana Esposito OPAL FriAug 11, 2017 1:46 PM Status: Addendum REVIEW [...] 08/12/17 PROGRESS Observed: 08/07/2017 Status: COMPLETED Source: [place] 12:00 AM [facility] REPOSITORY HNO ID: [id number] Author: Andrey Barajas Service: Abstract Author Type: Physician Type: Progress Notes Filed: 08/07/2017 9:28 AM Note Text: [facility] NOTE NAME: VAL VALVERDE [facility] NO.: [id number] DATE OF SERVICE: 08/07/2017 SUBJECTIVE: This is [...] the next time she is at [facility]. We will also plan on repeat EGD in 3 to 4 months. 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 [...] 08/06/17 PROGRESS Observed: 07/31/2017 Status: COMPLETED Source: [place] 2:02 PM [facility] REPOSITORY HNO ID: [id number] Author: Bryan Ruggiero (Dayanna) Hanane Service: (none) [...] of sepsis and hypotension Did not require FILLER SHAKER TAC and MMF in view of critical [...] Lymph 1.00 - 4.00 k/uL 0.43 (L) Rowan% % 5.0 Abs Rowan <0.87 k/uL 0.47 Eosin% % 0.9 Abs Eosin <0.46 k/uL 0.08 Baso% % 0.1 Abs Baso <0.11 k/uL <0.03 [place]% % Anisocytosis Polychromasia RBC Fragments Target Cells [...] 15 16 13 17 15 14 WBC, [place] 3.70 - 11.00 k/uL 10.09 RBC, [place] 3.90 - 5.20 m/uL 2.40 (L) Hemoglobin, [place] 11.5 - 15.5 g/dL 8.5 (L) Hematocrit, [place] 36.0 - 46.0 % 26.5 (L) MCV, [place] 80.0 - 100.0 fL 110.4 (H) MCH, [place] 26.0 - 34.0 pg 35.4 (H) MCHC, [place] 30.5 - 36.0 g/dL 32.1 RDW, [place] 11.5 - 15.0 % 18.2 (H) Platelet Cnt, [place] 150 - 400 k/uL 132 (L) MPV, [place] 9.0 - 12.7 fL 10.4 Absol Gran [...] Pressure-acceptable on current rx -Anemia-on RICKY at [place], hgb 8.5 Chronic thrombocytopenia PLAN: Reduce FK [...] be in the office Bryan Koo RN BORDER MACHINE OPERATOR I spent 35 minutes in the visit, with more than 50% of the total dekc-qi-lkci time of the visit in counseling / coordination of care. URINALYSIS Collected: 07/31/2017 Status: F Source: [place] 2:01 PM [facility] REPOSITORY TYPE CODE TESTS RESULT OUT OF RANGE REFERENCE UNITS LAB UCOL Yellow Color Yellow LAB [facility] Clear Clarity Clear LAB UGLUC Negative mg/dL Glucose, Urine Negative LAB UBIL Negative Bilirubin, Urine Negative LAB UKET Negative Ketones, Urine Negative LAB USPG 1.005-1.030 Specific [place], Ur 1.010 LAB UHGB Negative Hemoglobin/Blood, Negative Ur LAB UPH 4.5-8.0 pH 5.5 LAB UPROT Negative mg/dL Protein, Abnormal Urine 30 Alert LAB UUROB Normal Urobilinogen Normal LAB UNITR Negative Nitrites Negative LAB ULKEST Negative Leukest Negative LAB UCOM Comments SEE COMMENT Result Comment: Microscopic not warranted LAB UMCOM Urine SEE Louie Comment COMMENT Result Comment: N/A Performed By: #### UA #### [facility] [address] [place], [place] [address] CNOV Observed: 07/31/2017 Status: COMPLETED Source: [place] 1:30 PM [facility] REPOSITORY Office Visit (NEPHMN) VAL VALVERDE ([id number]) 1970 F TRN Date Time Provider Department 07/31/17 1:30 PM BRYAN KOO (BORDER MACHINE OPERATOR) NEPHMN During your visit today, we recorded [...] stomach stomach cancer - Malnutrition (HCC) - H - PAST MEDICAL HISTORY OF 2001 Blood [...] of sepsis and hypotension Did not require FILLER SHAKER TAC and MMF in view of critical [...] Lymph 1.00 - 4.00 k/uL 0.43 (L) Rowan% % 5.0 Abs [place] ANDlt;0.87 k/uL 0.47 Eosin% % 0.9 Abs Eosin ANDlt;0.46 k/uL 0.08 Baso% % 0.1 Abs Baso ANDlt;0.11 k/uL ANDlt;0.03 [place]% % Anisocytosis Polychromasia RBC Fragments Target Cells [...] Kesha 3.70 - 11.00 k/uL 10.09 RBC, [place] 3.90 - 5.20 m/uL 2.40 (L) Hemoglobin, [place] 11.5 - 15.5 g/dL 8.5 (L) Hematocrit, [...] be in the office Bryan Koo RN BORDER MACHINE OPERATOR I spent 35 minutes in the visit, with more than 50% of the total nwax-ax-kquv time of the visit in counseling / [...] [Z94.0] Order(s):UA CHEMSTRIP ONLY [SQUA] Order #: [id number] FUTURE UA CHEMSTRIP ONLY [SQUA] Order #: [id number]. 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 [...] + CBC Collected: 07/28/2017 Status: F Source: [place] 11:10 AM [facility] REPOSITORY TYPE CODE TESTS RESULT OUT OF REFERENCE UNITS RANGE LAB WWBC 3.70-11.00 k/uL [place] WBC 10.09 LAB WRBC 3.90-5.20 m/uL Low [place] RBC 2.40 LAB WHGB 11.5-15.5 g/dL Low [place] Hemoglobin 8.5 LAB WHCT 36.0-46.0 % Low [place] Hematocrit 26.5 LAB WMCV 80.0-100.0 fL [place] High MCV 110.4 Result Comment: Result rechecked. LAB WMCH 26.0-34.0 pg High Kesha MCH 35.4 LAB WMCHC 30.5-36.0 g/dL [place] MCHC 32.1 LAB WRDW 11.5-15.0 % High Kesha RDW 18.2 LAB WPLT 150-400 k/uL Low [place] 132 Platelet Cnt LAB WMPV 9.0-12.7 fL [place] MPV 10.4 Result Comment: Test performed at: [facility], [address] [place] [address] Rd[address] [place] [address]. LAB ABGRAN 1.45-7.50 k/uL Absol Gran 7.46 Count Result Comment: Reviewed Performed By: #### WAGCBC #### [facility] [address] [place], [place] [address] COMP METABOLIC PANEL Collected: 07/28/2017 Status: F Source: [place] 11:10 AM [facility] REPOSITORY TYPE CODE [...] mg/dL Glucose High 142 Result Comment: The [place] Diabetes Association (ADA) provides guidance for cutoff [...] Standards of Medical Care in Diabetes 2016, [place] Diabetes Association. Diabetes Care. 2016.39(Suppl 1). LAB [...] actual GFR. Performed By: #### CMP #### [facility] [address] [place], [place] [address] TACROLIMUS / [id number] Collected: 07/28/2017 Status: F Source: [place] 11:10 AM [facility] REPOSITORY TYPE CODE TESTS RESULT OUT [...] Test performed by chemiluminescent immunoassay using Solares [place] ([employer]). Performed By: #### FK506 #### [facility] [address] [place], [place] [address] CNCO Observed: 07/25/2017 Status: COMPLETED Source: [place] 12:04 PM [facility] REPOSITORY HNO ID: [id number] Author: Mammography Coordinator Service: (none) Author Type: Physician Type: Letter Filed: 07/28/2017 11:33 PM Note Text: July 25, 2017 PID: [id number] Val Valverde [facility] [place] [address] Dear Ms. Valverde, We are pleased to [...] report will be kept on file at [facility] as part of your permanent medical record and are available for your continuing care. Thank you for allowing us to help in meeting your health care needs. Sincerely, Dr. Torres Interpreting Radiologist [facility] (Normal over 40) [facility] SCREENING Observed: 07/25/2017 Status: F Source: [place] 10:23 AM [facility] REPOSITORY * * *Final Report* * * DATE OF EXAM: Jul 25 2017 10:23AM WOW 0581 - [facility] SCREENING / PROCEDURE REASON: Encounter for screening mammogram for malignant neoplasm of breast * * * * Physician Interpretation * * * * RESULT: #[id number] - [facility] SCREENING BILATERAL DIGITAL SCREENING MAMMOGRAM WITH CAD: [...] mammogram, 11/29/2013 mammogram, and 11/11/2012 mammogram - [facility]. The tissue of both breasts is extremely dense, which lowers the sensitivity of mammography. No significant masses, calcifications, or other findings are seen in either breast. There has been no significant interval change. IMPRESSION: NEGATIVE There is no mammographic evidence of malignancy. A 1 year screening mammogram is recommended. Radha Torres M.D., ch/natalie:07/25/2017 12:04:21 Migratory Farm Hand: Ana PEREZ)(Celeste), [facility] letter sent: Normal over 40 Mammogram BI-RADS: 1 Negative Smoke And Flame Specialist: Natalie Transcribe Date/Time: Jul 25 2017 10:27A Dictated by: RADHA TORRES MD This examination was interpreted and the report reviewed and electronically signed by: RADHA TORRES MD on Jul 25 2017 12:04PM EST [id number] CNOV Observed: 07/25/2017 Status: COMPLETED Source: [place] 9:30 AM [facility] REPOSITORY Office Visit (WOOB) VAL VALVERDE ([id number]) 1970 F TRN Date Time Provider Department 07/25/17 9:30 AM KERI ADAME (BORDER MACHINE OPERATOR) WOOB During your visit today, we recorded [...] external genitalia normal, normal Bartholin's glands, urethra, [place]'s glands, no vulvar lesions, no cervical lesions, [...] [K64.9] Encounter for screening for 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 [Z13.820] 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 block assembler current use of systemic steroids [Z79.52] Order(s):DXA-AXIAL [place]KE[place] [0331022] Order #: [id number] FUTURE CONSULT TO GENERAL SURGERY [9011] Order #: [id number]: 1 Prescriptions as of 07/25/2017 Sig: ALBUTEROL SULFATE HFA 90 MCG/* 2 Puffs every 4 hours as need* AMLODIPINE 2.5 MG TABLET Take 1 tablet by mouth once d* PREDNISONE 5 MG TABLET Take 1 tablet by mouth once d* CHOLECALCIFEROL (VITAMIN D3) * Take 1 capsule by mouth once * WEZZRN-KGZJDCWS-OWMOXQZ 12,00* Take 1 capsule by mouth three* [...] 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 [...] 07/25/17 PROGRESS Observed: 07/25/2017 Status: COMPLETED Source: [place] 9:03 AM [facility] [place] REPOSITORY HNO ID: [id number] Author: Keri Adame Service: (none) Author Type: [...] external genitalia normal, normal Bartholin's glands, urethra, [place]'s glands, no vulvar lesions, no cervical lesions, [...] CNP CYTOLOGY Observed: 07/23/2017 Status: F Source: [place] 4:18 PM [facility] REPOSITORY Specimen originated from [facility] Specimen #: [id number] Submitting Physician: ANDREY BARAJAS MD SPECIMEN SUBMITTED [...] NEEDLE ASPIRATE(THINPREP AND CELL BLOCK) THIN PREP Non-Assistant Finance Manager, CELL BLOCK, H&E, Initial Date of Report: 07/24/2017 Date of Procedure: 07/23/2017 Date of Receipt: 07/23/2017 Submitted by: ANDREY BARAJAS MD Location: [facility] A3 Diagnostic interpretation performed at [facility], [address] [place] [address]. SURGICAL PATHOLOGY Observed: 07/22/2017 Status: F Source: [place] 11:40 AM [facility] REPOSITORY Specimen originated from [facility] Specimen #: [id number] Submitting Physician: ANDREY BARAJAS MD FINAL DIAGNOSIS Stomach, biopsy - Small bowel mucosa with no specific diagnostic alteration (please see comment). EDK/rw 07/23/2017 COMMENT Multiple additional levels were reviewed. Dayna P. Downs-Lashell, D.O. (Electronic Signature) SPECIMEN SUBMITTED A: GASTRIC, BIOPSY CLINICAL DATA GASTRIC ULCER HISTORY R/O H. PYLORI GROSS DESCRIPTION A. Received in formalin is one piece of chowdhury, soft tissue measuring 0.2 x 0.2 x 0.1 cm. Totally submitted in one cassette. Gross examination performed at [facility], [address] [place] [address] 07/22/2017 6:52:19 PM Date of Report: 07/24/2017 Date of Procedure: 07/22/2017 Date of Receipt: 07/22/2017 Submitted by: ANDREY BARAJAS MD Location: [place] [address] Diagnostic interpretation performed at [place] [address]. PROGRESS Observed: 07/21/2017 Status: COMPLETED Source: [place] 11:08 AM [facility] REPOSITORY HNO ID: [id number] Author: Duy Dumas Service: (none) Author Type: Nurse Practitioner Type: Progress Notes Filed: 07/21/2017 12:13 PM Note Text: CC: Patient presents with: Recheck: Hosp follow up, pneumonia, Flu and septsis HPI Val Valverde is a 46 year old female who presents today with pmnjrt-jo-osc for follow up from hospital admission 07/03 to 07/14/17. Patient initially presented to the [facility] ER with complaints of chest pain and SOB. Chest Xray revealed bilateral infiltrates and elevated lactate 2.0. Patient was admitted to the ICU until transfer to [facility]. Patient transferred on 07/04/17 for pneumonia, flu [...] week. (ONE CAPSULE) FOR VITAMIN D DEFICIENCY yjbrxi-oseavfwa-alnnlto (CREON) 12,000-38,000 -60,000 unit cpDR Take 1 [...] CNP CNOV Observed: 07/21/2017 Status: COMPLETED Source: [place] 11:00 AM [facility] REPOSITORY Office Visit (INTMWS) AVL VALVERDE ([id number]) 1970 F TRN Date Time Provider Department 07/21/17 11:00 AM DUY DUMAS) INTMWS During your visit today, we recorded the following information about you: Temperature Pulse Respiration Blood pressure 99 degrees 116/minute 16/minute 130/84 Weight 31.8 kg Duy Dumas CNP 07/21/2017 12:13 PM Signed CC: Patient presents with: Recheck: Hosp follow up, pneumonia, Flu and septsis HPI Valeren Valverde is a 46 year old female who presents today with fddihr-mv-bys for follow up from hospital admission 07/03 to 07/14/17. Patient initially presented to the [facility] ER with complaints of chest pain and SOB. Chest Xray revealed bilateral infiltrates and elevated lactate 2.0. Patient was admitted to the ICU until transfer to [facility]. Patient transferred on 07/04/17 for pneumonia, flu [...] week. (ONE CAPSULE) FOR VITAMIN D DEFICIENCY gvgtxy-haahblcs-dzuchmg (CREON) 12,000-38,000 -60,000 unit cpDR Take 1 [...] Hemorrhoids, unspecified hemorrhoid type [K64.9] Order(s):AEROCHAMBER SPACER [[id number]] Order #: [id number] albuterol HFA (PROAIR HFA) 90 mcg/actuation inhaler2 Puffs every 4 hours as needed for Wheezing/Shortness of Breath. 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 [...] NURSING PROG Observed: 07/14/2017 Status: COMPLETED Source: [place] 3:07 PM [facility] REPOSITORY HNO ID: [id number] Author: Vicky Welsh) DICK Araya Service: (none) Author Type: Registered Nurse Type: Nursing Progress Note Filed: 07/14/2017 4:19 PM Note Text: Nursing Progress Note Patient Name: Val Valverde Patient Location: [place] [address] Patient left unit by wheelchair with father by her side, pt and her father both verbalized an understanding an D/c instructions, patient left with all belongings its hand. This note was completed by: Vicky Araya RN CNDS Observed: 07/14/2017 Status: COMPLETED Source: [place] 1:56 PM [facility] REPOSITORY HNO ID: [id number] Author: Chuy Wharton Service: General Internal Medicine [...] planning with the resident Shanel Mcgarry MD [place] [phone] ?? DISCHARGE SUMMARY PATIENT NAME: Val Valverde [...] capsule Refills: 1 Associated Diagnoses:Vitamin D deficiency imuhwj-yaiogzvf-ywcxegu (CREON 12) 1 capsule Take 1 capsule [...] Time Provider Department Center 07/21/2017 11:00 AM [id number], JAMIE (BORDER MACHINE OPERATOR) INTMWS [facility] 07/22/2017 10:30 AM [id number] BARAJAS GALATA3 [facility] 07/25/2017 9:30 AM [id number], AMY (BORDER MACHINE OPERATOR) WOOB [facility] 07/25/2017 10:45 AM [id number] MAMMO [facility] WSTR RAMAWS [facility] 07/28/2017 10:30 AM [id number] YAHIR [facility] WSTR HEMAWS [facility] 08/11/2017 10:30 AM [id number] YAHIR [facility] WSTR HEMAWS [facility] 08/25/2017 10:45 AM [id number] YAHIR [facility] WSTR HEMAWS [facility] 09/08/2017 10:45 AM [id number] YAHIR [facility] WSTR HEMAWS [facility] 10/22/2017 4:20 PM [id number] TOMWS [facility] TIME OF CARE (Use first blank if not applicable): TIME OF CARE: Discharge Management: I personally spent greater than 30 minutes involved in the discharge management of this patient. SIGNATURE: Chuy Wharton MD PATIENT NAME: Val Valverde DATE: July 14, 2017 TIME: 2:04 PM PAGER/CONTACT #: [phone] PLAN OF CARE Observed: 07/14/2017 Status: COMPLETED Source: [place] 1:08 PM [facility] REPOSITORY HNO ID: [id number] Author: Augustina Wagner (Carbon Capture Power Plant Manager) Service: (none) Author Type: Stencil Cutter Type: Plan of Care Filed: 07/14/2017 1:09 PM Note Text: STORE [facility] BEDSIDE DELIVERY SURVEY 1. Patient to use [facility] Bedside Delivery - NO staff communication 2. If fax, patient would like us to fax prescriptions to Pharmacy of choice a. Pharmacy: b. Location: c. Phone: 3. Insurance card on file - NO 4. Credit card for payment - NO Are you interested in bedside delivery of your medications? 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 OT skilled home. No other needs. SIGNATURE: Martinez Masterson RN PATIENT NAME: Val Valverde DATE: July 14, 2017 TIME: 8:18 AM PAGER/CONTACT #: [phone] BASIC METABOLIC PANL Collected: 07/14/2017 Status: F Source: [place] 3:39 AM [facility] REPOSITORY TYPE CODE TESTS RESULT OUT OF REFERENCE UNITS RANGE LAB GLU 74-99 mg/dL Low Glucose 72 Result Comment: The [place] Diabetes Association (ADA) provides guidance for cutoff [...] Standards of Medical Care in Diabetes 2016, [place] Diabetes Association. Diabetes Care. 2016.39(Suppl 1). LAB [...] actual GFR. Performed By: #### BMP #### [facility] [address] [place], [place] [address] TACROLIMUS / [id number] Collected: 07/14/2017 Status: F Source: [place] 3:39 AM [facility] REPOSITORY TYPE CODE TESTS RESULT OUT [...] Test performed by chemiluminescent immunoassay using [address] Advocate. Performed By: #### [id number] #### [facility] [address] [place], [place] [address] THERAPY NT Observed: 07/13/2017 Status: COMPLETED Source: [place] 1:32 PM [facility] REPOSITORY HNO ID: [id number] Author: Sanju Ruggiero (Ot/L) Lizzie Service: Occupational Therapy Author Type: Occupational Therapist Type: Therapy (PT/OT/Speech/Resp) Filed: 07/13/2017 1:48 PM Note Text: Occupational Therapy Evaluation SERVICE DATE: 07/13/2017 SERVICE TIME: 0954 to 1033 ROOM: [place] [address] Recommended Discharge Disposition: Home Anticipated Discharge Needs: [...] daily living (ADL) Interventions Provided: Evaluation;Therapeutic Activity (42140) $ Evaluation-Low (16424) Billed Units: 1 unit Therapeutic Activity (19558) Treatment Minutes: 23 2 units Skilled Intervention(s): [...] July 13, 2017 TIME: 1:32 PM PAGER: [phone] PROGRESS Observed: 07/13/2017 Status: COMPLETED Source: [place] 1:12 PM [facility] REPOSITORY HNO ID: [id number] Author: Opal Acevedo Service: General Internal Medicine Author Type: Physician Type: Progress Notes Filed: 07/13/2017 7:21 PM Note Text: GENERAL MEDICINE PROGRESS NOTE Weekdays 7 AM to 5 PM / Weekends 7 AM to 3 PM: Page [phone] (Resident) Weekdays 5 PM to 7 AM / Weekends 3 PM to 7 AM: Page [phone] (Chandan Resident Dance Coach) SERVICE DATE: 07/13/2017 SERVICE TIME: 1:12 PM [...] 1 mg ORAL DAILY AT 6 PM viidlm-kzdlvmxw-scgfzby 1 capsule cap(s) (CREON 12) 1 capsule [...] last 168 hours. BMP: Recent Labs 07/13/17 05007/12/1744607/11/1792407/10/1742407/08/17223107/07/17 23407/06/17 2258 GLUC 69* 68* 106* 85 93 [...] 3.43* 3.88* 4.16* CHEM: Recent Labs 07/13/17 05007/12/1744607/11/1792407/11/1733807/10/1742407/08/17223107/07/17 23407/06/17 2258 ALB -- -- -- -- 1.9* 1.6* 1.5* 1.4* TPROT -- -- -- -- 5.2* 4.8* 4.9* 4.4* CA 7.9* 8.2* 8.0* -- 8.2* 8.3* 7.7* 7.4* MG -- -- -- 1.8 1.8 2.1 2.2 2.3 HEPATIC: Recent Labs 07/10/17 04207/08/17223107/07/17234207/06/17 2258 ALKPHOS 114 112 114 86 ALT [...] July 13, 2017 TIME: 1:12 PM Pager: [phone] [facility] STAFF PHYSICIAN NOTE OF PERSONAL [...] 07/14/17. STAFF SIGNATURE: Opal Acevedo DO, MA, [facility] Staff, Department of Hospital Medicine Pager Number : [phone] 07/13/2017 7:21 PM CBC Collected: 07/13/2017 Status: F Source: [place] 5:05 AM [facility] REPOSITORY TYPE CODE TESTS RESULT OUT [...] nRBC Performed By: #### CBC, BMP #### [facility] [address] [place], [place] [address] BASIC METABOLIC PANL Collected: 07/13/2017 Status: F Source: [place] 5:05 AM [facility] REPOSITORY TYPE CODE TESTS RESULT OUT OF REFERENCE UNITS RANGE LAB GLU 74-99 mg/dL Low Glucose 69 Result Comment: The [place] Diabetes Association (ADA) provides guidance for cutoff [...] Standards of Medical Care in Diabetes 2016, [place] Diabetes Association. Diabetes Care. 2016.39(Suppl 1). LAB [...] GFR. Performed By: #### CBC, BMP #### [facility] [address] [place], [place] [address] TACROLIMUS / [id number] Collected: 07/13/2017 Status: F Source: [place] 5:05 AM [facility] REPOSITORY TYPE CODE TESTS RESULT OUT [...] Test performed by chemiluminescent immunoassay using [address] Advocate. Performed By: #### [id number] #### [facility] [address] [place], [place] [address] EMERGENCY DEPARTMENT Observed: 07/12/2017 Status: F Source: [place] SUMMARY 3:56 PM [facility] REPOSITORY [facility] Medical Records Department [address] [place] [address] Emergency Department Summary 07/12/17 1550 MR#: [id number] Acct: [id number] Name: VAL VALVERDE Rep #: [id number] : 1970 46 From: Osei Wade MD [...] depression. She receives her care at the [facility]. Physical Examination: Vital signs remarkable blood [...] creatinine is 5.48. Baseline is 3.9 per [facility] records. Lactate elevated 2.9. Troponin is [...] endorgan injury. Call was placed to her preventive maintenance coordinator who was informed that she would [...] of hypertension This note was generated with Innoverneation software. It may contain incorrect words, spelling, and punctuation that were not noted in review of the chart prior to signing ED Disposition - Plan for ED Patient: Disposition: Acute Care Hospital [facility] Chief Complaint: Shortness of Breath What to do if you have Problems For any increased pain, shortness of breath, bleeding, nausea or vomiting, chest pain, or any unexpected problems, contact your Primary Care Provider. Call [facility] ([phone]) or report to the closest Emergency Room. Call 911 if necessary. 07/12/17 1556 <Electronically signed by Osei Wade MD> Date Osei Wade MD Cosigner Signature (If Indicated): Date CC: Wil To MD TYPE AND SCREEN Collected: 07/12/2017 Status: F Source: [place] 8:21 AM [facility] REPOSITORY TYPE CODE TESTS RESULT OUT OF REFERENCE UNITS RANGE LAB %ABR B ABO/RH(D) POSITIVE LAB % Antibody NEG Screen Performed By: #### TSCR #### [facility] [address] [place], [place] [address] PROGRESS Observed: 07/12/2017 Status: COMPLETED Source: [place] 7:15 AM [facility] REPOSITORY HNO ID: [id number] Author: Opal Acevedo Service: General Internal Medicine [...] 1 mg ORAL DAILY AT 6 PM mtujez-prqvudkq-slrmzjg 1 capsule cap(s) (CREON 12) 1 capsule [...] week. (ONE CAPSULE) FOR VITAMIN D DEFICIENCY aakynd-pslueirl-qlpctku (CREON) 12,000-38,000 -60,000 unit cpDR Take 1 [...] DATE: July 12, 2017 TIME: 7:15 AM [facility] Addendum - INTERVAL HPI: - No acute [...] Medicine Resident, PGY-2 July 12, 2017 Pager [phone] [facility] STAFF PHYSICIAN NOTE OF PERSONAL [...] above. STAFF SIGNATURE: Opal Acevedo DO, MA, [facility] Staff, Department of Hospital Medicine Pager Number : [phone] 07/12/2017 10:19 PM BASIC METABOLIC PANL Collected: 07/12/2017 Status: F Source: [place] 4:47 AM [facility] [place] REPOSITORY TYPE CODE TESTS RESULT OUT OF REFERENCE UNITS RANGE LAB GLU 74-99 mg/dL Low Glucose 68 Result Comment: The [place] Diabetes Association (ADA) provides guidance for cutoff [...] Standards of Medical Care in Diabetes 2016, [place] Diabetes Association. Diabetes Care. 2016.39(Suppl 1). LAB [...] GFR. Performed By: #### BMP, CBC #### [facility] [address] [place], [place] [address] CBC Collected: 07/12/2017 Status: F Source: [place] 4:47 AM [facility] REPOSITORY TYPE CODE TESTS RESULT OUT [...] nRBC Performed By: #### BMP, CBC #### [facility] [address], [place] [address] TACROLIMUS / [id number] Collected: 07/12/2017 Status: F Source: [place] 4:47 AM [facility] REPOSITORY TYPE CODE TESTS RESULT OUT [...] Test performed by chemiluminescent immunoassay using [address] Advocate. Performed By: #### [id number] #### [facility] [address] [place], [place] [address] THERAPY NT Observed: 07/11/2017 Status: COMPLETED Source: [place] 3:56 PM [facility] REPOSITORY HNO ID: [id number] Author: Quentin (Pt) Loren Service: Physical Therapy Author Type: Physical Therapist Type: Therapy (PT/OT/Speech/Resp) Filed: 07/11/2017 3:59 PM Note Text: Physical Therapy Evaluation SERVICE DATE: 07/11/2017 SERVICE TIME: 1110 to 1200 ROOM: [place] [address] Recommended Discharge Disposition: Outpatient Physical Therapy Anticipated [...] mobility-other;Muscle Weakness (generalized) Interventions Provided: Evaluation;Therapeutic Activity (55402);Gait Training (08503) $ Evaluation-Low (10728) Billed Units: 1 unit Therapeutic Activity (49435) Treatment Minutes: 12 1 unit Skilled Intervention(s): Instructed patient in log roll technique Instructed patient in supine to and from sit pushing with upper extremities to sit up Instruction in sit to and from stand technique with proper hand placement and body positioning at edge of bed/chair Gait Training (66744) Treatment Minutes: 11 1 unit Skilled Intervention(s): [...] Required Assistance OBJECTIVE: Mini Cog Score: 5 (07/11/171109) CURRENT FUNCTIONAL STATUS: Current Functional Mobility Assist [...] 11, 2017 TIME: 3:56 PM PAGER/CONTACT #: [phone] CONSULT PROG Observed: 07/11/2017 Status: COMPLETED Source: [place] 3:07 PM [facility] [place] REPOSITORY HNO ID: [id number] Author: Cayden Elizabeth) Jennifer Service: Transplant Author Type: Nurse Practitioner Type: Consult Progress Note Filed: 07/11/2017 3:17 PM Note Text: CONSULT PROGRESS NOTE NEPHROLOGY SERVICE SERVICE DATE: 07/11/2017 SERVICE TIME: 3:07 PM Subjective INTERVAL HISTORY: No acute events overnight Feeling better but weak Scr 3.2, stable, at baseline Poor appetite MEDICATIONS: Current hospital medications: melatonin 3 mg tab(s) 3 mg ORAL DAILY (7 PM) lmpqxt-nlrjjejs-ychzgfc 1 capsule cap(s) (CREON 12) 1 capsule [...] Labs 07/11/17 0925 07/11/17 0339 07/10/17 0425 07/08/17223107/07/17 2343 07/06/17 2258 NA 141 -- 140 [...] 1.8 2.1 2.2 2.3 Recent Labs 07/11/17 0907/10/175 07/08/172 WBC 10.87 9.39 10.40 HB 7.0* 7.2* [...] 0-3 -- -- Recent Labs 07/11/17 0925 07/08/17223107/08/17 1000 07/04/17 2347 OVIDIO -- -- 1726.0* [...] hours. Invalid input(s): HEPSABG Recent Labs 07/11/17 03307/07/17 1047 07/06/17 0448 FK506 2.7* 4.8* 15.3 [...] July 11, 2017 TIME: 3:07 PM PAGER: [phone] PROGRESS Observed: 07/11/2017 Status: COMPLETED Source: [place] 10:30 AM [facility] REPOSITORY O ID: [id number] Author: Opal Acevedo Service: General Internal Medicine Author Type: Physician Type: Progress Notes Filed: 07/11/2017 9:10 PM Note Text: Progress Note For questions regarding this patient for today, please page [phone]. During weekends and overnight please call the [...] PGY-2 July 11, 2017 10:30 AM Pager [phone] [facility] STAFF PHYSICIAN NOTE OF PERSONAL [...] above. STAFF SIGNATURE: Opal Acevedo DO, MA, FACP Staff, Department of Hospital Medicine Pager Number : [phone] 07/11/2017 9:10 PM CBC Collected: 07/11/2017 Status: F Source: [place] 9:25 AM [facility] REPOSITORY TYPE CODE TESTS RESULT OUT [...] <0.01 Performed By: #### CBC, BMP #### [facility] [address] [place], [place] [address] BASIC METABOLIC PANL Collected: 07/11/2017 Status: F Source: [place] 9:25 AM [facility] REPOSITORY TYPE CODE TESTS RESULT OUT OF REFERENCE UNITS RANGE LAB GLU 74-99 mg/dL High Glucose 106 Result Comment: The [place] Diabetes Association (ADA) provides guidance for cutoff [...] Standards of Medical Care in Diabetes 2016, [place] Diabetes Association. Diabetes Care. 2016.39(Suppl 1). LAB [...] GFR. Performed By: #### CBC, BMP #### [facility] [address] [place] [address] MAGNESIUM Collected: 07/11/2017 Status: F Source: [place] 3:39 AM [facility] REPOSITORY TYPE CODE TESTS RESULT OUT OF REFERENCE UNITS RANGE LAB MG 1.7-2.3 mg/dL Magnesium 1.8 Performed By: #### MG1, PHOS #### [facility] [address] [place] [address] PHOSPHORUS Collected: 07/11/2017 Status: F Source: [place] 3:39 AM [facility] REPOSITORY TYPE CODE TESTS RESULT OUT OF REFERENCE UNITS RANGE LAB PHOS 2.7-4.8 mg/dL Phosphorus 4.5 Performed By: #### MG1, PHOS #### [facility] [address] [place] [address] TACROLIMUS / [id number] Collected: 07/11/2017 Status: F Source: [place] 3:39 AM [facility] REPOSITORY TYPE CODE TESTS RESULT OUT [...] Test performed by chemiluminescent immunoassay using [address] Advocate. Performed By: #### FK506 #### [facility] [address] [place], [place] [address] CONSULT Observed: 07/10/2017 Status: COMPLETED Source: [place] 11:00 AM [facility] REPOSITORY HNO ID: [id number] Author: Mihaela BoggsRn) DICK Phillips Service: Wound [...] patient, reconsult if wounds worsens. - HPI: [id number] Val Valverde is a 46 year old [...] (Active) Stage Injury DTI 07/10/2017 10:54 AM Business Office Manager Related Pressure Injury No 07/10/2017 10:54 AM [...] found under the Get Images tab on [facility]. The purpose of the photo(s) is to optimize the patient's medical care and allow a visual aid to their wound evaluation and progress. ? Photo was taken of: coccyx Verbal consent was obtained: Yes. ? Photos are uploaded per the wound personal caregiver (WCC) and may not be immediately available for viewing. Contact [facility] with questions Mihaela Phillips RN [facility] #[id number] Mihaela Phillips RN CASE MANAGEM Observed: 07/10/2017 Status: COMPLETED Source: [place] 9:00 AM [facility] REPOSITORY HNO ID: [id number] Author: Martinez (Dick) DICK Masterson Service: Care [...] 10, 2017 TIME: 9:00 AM PAGER/CONTACT #: [phone] COMP METABOLIC PANEL Collected: 07/10/2017 Status: F Source: [place] 4:25 AM [facility] REPOSITORY TYPE CODE TESTS RESULT OUT OF REFERENCE UNITS RANGE LAB TP 6.3-8.0 g/dL Low Protein, Total 5.2 LAB ALB 3.9-4.9 g/dL Low Albumin 1.9 LAB CA 8.5-10.2 mg/dL Low Calcium, Total 8.2 LAB TBIL 0.2-1.3 mg/dL Bilirubin, Total 0.4 LAB ALKP 32-117 U/L Alkaline Phosphatase 114 LAB AST 13-35 U/L AST 17 LAB GLU 74-99 mg/dL Glucose 85 Result Comment: The [place] Diabetes Association (ADA) provides guidance for cutoff [...] Standards of Medical Care in Diabetes 2016, [place] Diabetes Association. Diabetes Care. 2016.39(Suppl 1). LAB [...] By: #### CMP, MG1, PHOS, CBCDIF #### [facility] [address] [place] [address] MAGNESIUM Collected: 07/10/2017 Status: F Source: [place] 4:25 [facility] REPOSITORY TYPE CODE TESTS RESULT OUT OF REFERENCE UNITS RANGE LAB MG 1.7-2.3 mg/dL Magnesium 1.8 Performed By: #### CMP, MG1, PHOS, CBCDIF #### [facility] [address] [place] [address] PHOSPHORUS Collected: 07/10/2017 Status: F Source: [place] 4:25 AM [facility] REPOSITORY TYPE CODE TESTS RESULT OUT OF REFERENCE UNITS RANGE LAB PHOS 2.7-4.8 mg/dL Phosphorus 4.4 Performed By: #### CMP, MG1, PHOS, CBCDIF #### [facility] [address] [place] [address] CBC AND DIFFERENTIAL Collected: 07/10/2017 Status: F Source: [place] 4:25 AM [facility] REPOSITORY TYPE CODE TESTS RESULT OUT [...] Low Abs Lymph 0.43 LAB AMONO % Rowan% 5.0 LAB AAMONO <0.87 k/uL Abs Rowan 0.47 LAB AEOS % Eosin% 0.9 LAB AAEOS <0.46 k/uL Abs Eosin 0.08 LAB ABASO % Baso% 0.1 LAB AABASO <0.11 k/uL Abs Baso <0.03 LAB AUNRBC 0 /100 WBC NRBCs High 0.1 LAB ABNRBC <0.01 k/uL High Absolute nRBC 0.01 LAB DTYP DTYPE Auto Diff Performed By: #### CMP, MG1, PHOS, CBCDIF #### [facility] [address] [place], [place] [address] NURSING PROG Observed: 07/09/2017 Status: COMPLETED Source: [place] 7:34 PM [facility] REPOSITORY HNO ID: [id number] Author: Deloris (Rn) DICK Maguire Service: (none) [...] OF CARE Observed: 07/09/2017 Status: COMPLETED Source: [place] 5:02 PM [facility] REPOSITORY HNO ID: [id number] Author: Rakan Wang Service: Critical Care Author Type: Resident Type: Plan of Care Filed: 07/09/2017 5:05 PM Note Text: MICU TRANSFER TO REGULAR NURSING FLOOR Pt seen and examined on rounds with MICU staff and is stable to transfer to [facility]. Signout given to Med QB (or accepting specialty staff MD) and accepting team - Chandan Gooden Pt going to bed G100-22. Flores Issues: - Thrombocytopenia - Renal transplant patient on immunosuppression; tac held. - Ongoing treatment for strep pneumo bacteremia and pneumonia - Just finished tamiflu for influenza B - JENNIFFER Orders signed and held in [facility]. SIGNATURE: Rakan Wang DO PATIENT NAME: Val Valverde DATE: July 09, 2017 TIME: 5:03 PM PAGER/CONTACT #: [phone] NURSING PROG Observed: 07/09/2017 Status: COMPLETED Source: [place] 4:39 PM [facility] REPOSITORY HNO ID: [id number] Author: [place] BoggsRn) DICK Aj Service: Critical Care Author Type: Registered Nurse Type: Nursing Progress Note Filed: 07/09/2017 4:40 PM Note Text: Report called to [facility] DICK Puentes. Awaiting transport. NUTRITION Observed: 07/09/2017 Status: COMPLETED Source: [place] 4:22 PM [facility] REPOSITORY HNO ID: [id number] Author: Sarah Ventura) Ziggy Service: NST-Nutrition Support Team Author Type: Registered [...] needs: 1572 - 1661 kilocalories determined by [place]. Jeor x 1.2 - 1.3 plus additional [...] Potential Signs of Inflammation: hypoalbuminemia Pertinent medications: mrxyfx-sbrdpkhu-kufnbiq, prednisone, Vitamin B complex with C-FA-CU-ZN renal vitamins Pressure Injury 07/05/17 0300 Coccyx (Active) Stage Injury DTI 07/09/2017 12:00 PM Business Office Manager Related Pressure Injury No 07/09/2017 12:00 PM [...] July 09, 2017 TIME: 4:23 PM PAGER: [phone] CONSULT PROG Observed: 07/09/2017 Status: COMPLETED Source: [place] 3:25 PM [facility] [place] REPOSITORY HNO ID: [id number] Author: Speedy Andre (Fel) Service: Nephrology Author [...] Speedy Andre MD, PGY4, Nephrology Fellow Pager [phone] July 09, 2017 3:25 PM Addendum 7:52 AM July 10, 2017 The patient transferred to the floors I resumed her tacrolimus at 1 mg BID Daily levels ordered Speedy Andre MD, PGY4, Nephrology Fellow Pager [phone] July 10, 2017 7:53 AM HISTORY PHYSICAL Observed: 07/09/2017 Status: COMPLETED Source: [place] 2:00 PM [facility] REPOSITORY HNO ID: [id number] Author: Opal Acevedo Service: General Internal Medicine [...] ceftriaxone and azithromycin. Patient was transferred to [facility] 07/04 due to worsening kidney function and [...] though she dry coughs occasionally. Transferred to [facility] 07/09 PAST MEDICAL HISTORY: SEE CHRONIC [...] week. (ONE CAPSULE) FOR VITAMIN D DEFICIENCY gamexx-ghdhrggi-hbkyyxl (CREON) 12,000-38,000 -60,000 unit cpDR Take 1 [...] tablet (DIATX ZN) 1 tablet OTHER DAILY kclzst-bmlayvew-gjpcsqd 10,440-39,150- 39,150 unit 1 tablet (VIOKACE) 1 [...] CN 2-12 grossly intact. CBC: Recent Labs 07/08/17 2232 07/08/17 0646 07/07/17 2343 WBC 10.40 15.75* 15.86* HB 7.7* 8.4* 8.4* HCT 22.4* 24.5* 24.9* PLT 16* 23* 21* COAG: BMP: Recent Labs 07/08/172 07/07/17 2343 07/06/17 2258 GLUC 93 87 178* NA 141 140 136 K 3.6* 3.9 3.8 CHLOR 105 103 102 CO2 22 22 18* ANION 14 15 16 BUN 53* 59* 59* CREAT 3.43* 3.88* 4.16* CHEM: Recent Labs 07/08/172 07/07/17 2343 07/06/17 2258 ALB 1.6* 1.5* [...] July 09, 2017 TIME: 2:00 PM PAGER: [phone] [facility] STAFF PHYSICIAN NOTE OF PERSONAL [...] above. STAFF SIGNATURE: Opal Acevedo DO, MA, FACP Staff, Department of Hospital Medicine Pager Number : [phone] 07/10/2017 8:47 PM PROGRESS Observed: 07/09/2017 Status: COMPLETED Source: [place] 12:30 PM [facility] REPOSITORY HNO ID: [id number] Author: Amy Purcell MD Service: Critical Care [...] mother) 02/21/10 now with CKD CMV -/+. 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 Plan: Holding [...] days Influenza B - Discontinue tamiflu, day 5 Plan of care discussed with: ICU Team, patient SIGNATURE: Rakan Wang DO PATIENT NAME: Val Valverde DATE: July 09, 2017 TIME: 12:30 PM PAGER/CONTACT #: [phone] [facility] STAFF PHYSICIAN NOTE OF PERSONAL [...] floor SIGNATURE: Amy Purcell MD [facility] PAGER:[phone] DATE of SERVICE: July 09, 2017 TIME of SERVICE: 12:59 PM COMP METABOLIC PANEL Collected: 07/08/2017 Status: F Source: [place] 10:32 PM [facility] REPOSITORY TYPE [...] 74-99 mg/dL Glucose 93 Result Comment: The [place] Diabetes Association (ADA) provides guidance for cutoff [...] Standards of Medical Care in Diabetes 2016, [place] Diabetes Association. Diabetes Care. 2016.39(Suppl 1). LAB [...] #### CMP, MG1, PHOS, FERR, CBCDIF #### [place] [address] MAGNESIUM Collected: 07/08/2017 Status: F Source: [place] 10:[address] [place] [address] REPOSITORY TYPE CODE TESTS RESULT OUT OF REFERENCE UNITS RANGE LAB MG 1.7-2.3 mg/dL Magnesium 2.1 Performed By: #### CMP, MG1, PHOS, FERR, CBCDIF #### [place] [phone] PHOSPHORUS Collected: 07/08/2017 Status: F Source: [place] 10:[address] [place] [address] REPOSITORY TYPE CODE TESTS RESULT OUT OF REFERENCE UNITS RANGE LAB PHOS 2.7-4.8 mg/dL Phosphorus 4.5 Performed By: #### CMP, MG1, PHOS, FERR, CBCDIF #### [place] [address] FERRITIN Collected: 07/08/2017 Status: F Source: [place] 10:[address] [place] [address] REPOSITORY TYPE CODE TESTS RESULT OUT OF REFERENCE UNITS RANGE LAB FERR 14.7-205.1 ng/mL High Ferritin 1726.0 Performed By: #### CMP, MG1, PHOS, FERR, CBCDIF #### [place] [phone] CBC AND DIFFERENTIAL Collected: 07/08/2017 Status: F Source: [place] 10:[address] [place] [address] REPOSITORY TYPE CODE TESTS RESULT OUT OF [...] Abs Lymph 0.27 Low LAB AMONO % Rowan% 2.6 LAB AAMONO <0.87 k/uL Abs Rowan 0.27 LAB AEOS % Eosin% 0.0 LAB AAEOS <0.46 k/uL Abs Eosin 0.00 LAB ABASO % Baso% 0.0 LAB AABASO <0.11 k/uL Abs Baso 0.00 LAB AMETA % [place]% 0.9 LAB ANIIMI Anisocytosis Present LAB POLIMI Polychromasia Slight LAB RCFIMI RBC Fragments Few LAB TARIMI Target Cells Few LAB PLTEST Platelet Estimate Platelet estimate decreased LAB DTYP DTYPE Manual Diff Performed By: #### CMP, MG1, PHOS, FERR, CBCDIF #### [facility] [address] [place], [place] [address] PROCEDURE Observed: 07/08/2017 Status: COMPLETED Source: [place] 4:15 PM [facility] REPOSITORY HNO ID: [id number] Author: Tiana Smith (Rn) DICK Bowling Service: [...] CONSULT PROG Observed: 07/08/2017 Status: COMPLETED Source: [place] 1:03 PM [facility] REPOSITORY HNO ID: [id number] Author: Krystal Amador (Pharmacist) Service: Pharmacy Author [...] questions. Krystal Amador, PharmD (Critical Care Pharmacist) [phone] IRON AND TIBC Collected: 07/08/2017 Status: F Source: [place] 10:00 AM [facility] REPOSITORY TYPE CODE TESTS RESULT OUT OF REFERENCE UNITS RANGE LAB IRN 41-186 ug/dL Low Iron 21 LAB TIBC 232-386 ug/dL Low TIBC 84 LAB SAT 15-57 % Transferrin Saturatn 25 Performed By: #### IRON #### [facility] [address] [place], [place] [address] CONSULT PROG Observed: 07/08/2017 Status: COMPLETED Source: [place] 8:41 AM [facility] REPOSITORY HNO ID: [id number] Author: Andrey Hernandez Service: Nephrology Author Type: [...] Speedy Andre MD, PGY4, Nephrology Fellow Pager [phone] July 08, 2017 8:41 AM I have seen and evaluated the patient. I have reviewed the History, Exam, and Plan as documented by the resident/fellow. The following reflect my findings: agree fully with findings and plan. Extubated, on 2L n/c. Making urine, scr lower. Cont expectant mgmt off IS except pred. Andrey Hernandez MD PROGRESS Observed: 07/08/2017 Status: COMPLETED Source: [place] 7:53 [facility] REPOSITORY HNO ID: [id number] Author: Amy Purcell MD Service: Critical Care [...] transplant recipient 12/04/2015 - Present Overview S/p PEDRO kidney transplant (from adoptive mother) 02/21/10 now with CKD CMV -/+. 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 Plan: Holding [...] Creon 12 tiD JENNIFFER (acute kidney injury) ([facility]) 07/05/2017 - Present Overview JENNIFFER on CKD [...] Renal dose medications Respiratory failure with hypoxia ([facility]) 07/05/2017 - Present Overview Patient has new [...] 08, 2017 TIME: 7:53 AM PAGER/CONTACT #: [phone] [facility] STAFF PHYSICIAN NOTE OF PERSONAL [...] feeding SIGNATURE: Amy Purcell MD [facility] PAGER:[phone] DATE of SERVICE: July 08, 2017 TIME of SERVICE: 1:43 PM CITRATED PLT COUNT Collected: 07/08/2017 Status: F Source: [place] 6:46 AM [facility] REPOSITORY TYPE CODE TESTS RESULT OUT OF REFERENCE UNITS RANGE LAB PLTCIT 150-400 K/uL Low Citrated Plt 22 Count Result Comment: Result checked and verified No clot detected. Reviewed Sodium Citrate Sample. Performed By: #### CITPLT, STREV #### [facility] [address] [place], [place] [address] STAFF REV W CBCDIF Collected: 07/08/2017 Status: F Source: [place] 6:46 AM [facility] REPOSITORY TYPE CODE TESTS RESULT OUT [...] Abs Lymph Low 0.16 LAB AMONO % Rowan% 2.0 LAB AAMONO <0.87 k/uL Abs Rowan 0.32 LAB AEOS % Eosin% 1.0 LAB [...] Pathologist Reviewed by Julian Kelly M.D., Ph.D ([id number]) Performed By: #### CITPLT, STREV #### [facility] [address] [place] [id number] NURSING PROG Observed: 07/08/2017 Status: COMPLETED Source: [place] 4:00 AM [facility] REPOSITORY HNO ID: [id number] Author: Lynnette (Rn) DICK Mc Service: (none) Author Type: Registered Nurse Type: Nursing Progress Note Filed: 07/08/2017 4:03 AM Note Text: Nursing Progress: Topic: RESTRAINT NON-VIOLENT PATIENT NAME: Val Valverde PATIENT LOCATION: [place] [address]/[place] [address] The patient demonstrates Attempting to Remove Medical [...] RN VANCOMYCIN Collected: 07/07/2017 Status: F Source: [place] 11:43 PM [facility] REPOSITORY TYPE CODE TESTS RESULT OUT OF REFERENCE UNITS RANGE LAB VANCRA 5.0-20.0 ug/mL High Vancomycin 25.6 Result Comment: Reference ranges and high/low indicator flags are provided as general guidelines only. The treating physician must determine appropriate target levels/dosing based on the specific clinical situation. Performed By: #### VANCRA, CMP, MG1, PHOS, LD6, CBCDIF #### [facility] [address] [place], [place] [address] COMP METABOLIC PANEL Collected: 07/07/2017 Status: F Source: [place] 11:43 PM [facility] REPOSITORY TYPE CODE TESTS RESULT OUT [...] 74-99 mg/dL Glucose 87 Result Comment: The [place] Diabetes Association (ADA) provides guidance for cutoff [...] Standards of Medical Care in Diabetes 2016, [place] Diabetes Association. Diabetes Care. 2016.39(Suppl 1). LAB [...] DEVI, CMP, MG1, PHOS, LD6, CBCDIF #### [facility] [address] [place], [place] [address] MAGNESIUM Collected: 07/07/2017 Status: F Source: [place] 11:43 PM [facility] REPOSITORY TYPE CODE TESTS RESULT OUT OF REFERENCE UNITS RANGE LAB MG 1.7-2.3 mg/dL Magnesium 2.2 Performed By: #### DEVI, CMP, MG1, PHOS, LD6, CBCDIF #### [facility] [address] [place], [place] [address] PHOSPHORUS Collected: 07/07/2017 Status: F Source: [place] 11:43 PM [facility] REPOSITORY TYPE CODE TESTS RESULT OUT OF REFERENCE UNITS RANGE LAB PHOS 2.7-4.8 mg/dL Phosphorus 4.0 Performed By: #### DEVI, CMP, MG1, PHOS, LD6, CBCDIF #### [facility] [address] [place], [place] [address] LD Collected: 07/07/2017 Status: F Source: [facility] 11:43 PM MAIN [place] REPOSITORY TYPE CODE TESTS RESULT OUT OF RANGE REFERENCE UNITS LAB LD 135-214 U/L High LD 345 Performed By: #### DEVI, CMP, MG1, PHOS, LD6, CBCDIF #### [facility] [address] [place], [place] [address] CBC AND DIFFERENTIAL Collected: 07/07/2017 Status: F Source: [place] 11:43 PM [facility] REPOSITORY TYPE CODE TESTS RESULT OUT [...] Abs Lymph 0.41 Low LAB AMONO % Rowan% 0.9 LAB AAMONO <0.87 k/uL Abs Rowan 0.14 LAB AEOS % Eosin% 0.0 LAB AAEOS <0.46 k/uL Abs Eosin 0.00 LAB ABASO % Baso% 0.0 LAB AABASO <0.11 k/uL Abs Baso 0.00 LAB ANIIMI Anisocytosis Present LAB RCFIMI RBC Fragments Few LAB PLTEST Platelet Estimate Platelet estimate decreased LAB DTYP DTYPE Manual Diff Performed By: #### VANCRA, CMP, MG1, PHOS, LD6, CBCDIF #### [facility] [address] [place], [place] [address] XR ABDOMEN 1V SUPINE Observed: 07/07/2017 Status: F Source: [place] 8:17 PM [facility] REPOSITORY * * *Final Report* * [...] view: Lower pelvis is excluded from the hxnwg-qw-aocb. Lines and tubes: Nasogastric tube tip lies in the left upper abdomen adjacent to suture material, likely within the residual gastric body just proximal to the GJ junction. Small amount of enteric contrast within the gastric body. Bowel: Small bowel loops are normal caliber with no wall thickening. Other: Pelvic surgical clips present. Smoke And Flame Specialist: [facility] Transcribe Date/Time: Jul 07 2017 11:51P Dictated by : CORTNEY BRYAN MD This examination was interpreted and the report reviewed and electronically signed by: CORTNEY BRYAN MD on Jul 07 2017 11:55PM EST [id number] Collected: 07/07/2017 Status: F Source: [place] 4:22 PM [facility] REPOSITORY TYPE CODE TESTS RESULT OUT OF REFERENCE UNITS RANGE LAB FIBCT 200-400 mg/dL High Fibrinogen 704 Result Comment: Sample checked for a clot. Performed By: #### FIBCT, HAPTO, PLATF4 #### [facility] [address] [place] [id number] HAPTOGLOBIN Collected: 07/07/2017 Status: F Source: [place] 4:22 PM [facility] REPOSITORY TYPE CODE TESTS RESULT OUT OF REFERENCE UNITS RANGE LAB HAPTO 31-238 mg/dL Haptoglobin 175 Performed By: #### FIBCT, HAPTO, PLATF4 #### [facility] [address] [place] [id number] ANTI PLT FACTOR 4 Collected: 07/07/2017 Status: F Source: [place] AB 4:22 PM [facility] REPOSITORY TYPE CODE TESTS RESULT OUT [...] Performed By: #### FIBCT, HAPTO, PLATF4 #### [facility] [address] [place] [address] URINALYSIS WITH Collected: 07/07/2017 Status: F Source: [place] MICROSCOPIC 3:07 PM [facility] REPOSITORY TYPE CODE TESTS RESULT OUT OF RANGE REFERENCE UNITS LAB UCOL Yellow Color Yellow LAB [facility] Clear Clarity Clear LAB UGLUC Negative mg/dL Glucose, Urine Negative LAB UBIL Negative Bilirubin, Urine Negative LAB UKET Negative Ketones, Urine Negative LAB USPG 1.005-1.030 Specific [place], Ur 1.005 LAB UHGB Negative Abnormal Hemoglobin/Blood, [...] RBC 0-3 Performed By: #### UAWMIC #### [facility] [address] [place], [place] [address] CONSULT PROG Observed: 07/07/2017 Status: COMPLETED Source: [place] 1:59 PM [facility] REPOSITORY HNO ID: [id number] Author: Christiano Ryan (Pharmacist) Service: Pharmacy Author [...] have any questions, please contact Christiano Ryan PharmDiamond at pager [phone]. Age: [age] year old Allergies: ALLERGIES Allergen [...] Cason PROGRESS Observed: 07/07/2017 Status: COMPLETED Source: [place] 1:15 PM [facility] REPOSITORY O ID: [id number] Author: Amy Purcell MD Service: Critical Care [...] mother) 02/21/10 now with CKD CMV -/+. 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 Plan: Holding [...] dose medications = Respiratory failure with hypoxia ([facility]) 07/05/2017 - Present Overview Patient has new [...] 07, 2017 TIME: 1:15 PM PAGER/CONTACT #: [phone] [facility] STAFF PHYSICIAN NOTE OF PERSONAL [...] minutes. SIGNATURE: Amy Purcell MD [facility] PAGER:[phone] DATE of SERVICE: July 07, 2017 TIME of SERVICE: 2:05 PM 12 LEAD ELECTROCARDIOGRAM Observed: 07/07/2017 Status: F Source: [place] 1:00 PM [facility] REPOSITORY [facility] Cardiovascular Services [address] [place] [id number] 12 Lead EKG 07/03/17 1211 MR#: [id number] Acct: [id number] Name: VAL VALVERDE Rep #: [id number] : 1970 46 From: Humberto Fraser MD Attending Dr: Dionte Hutchison DO Status: DIS IN Ordering Dr: Osei Wade MD Date: 07/03/17 Location: U Sex: F A Admitted: 07/03/17 Test Reason : SOB Blood Pressure : / mmHG Vent. Rate : 091 BPM Atrial Rate : 091 BPM P-R Int : 124 ms QRS Dur : 080 ms QT Int : 408 ms P-R-T Axes : 054 070 057 degrees QTc Int : 501 ms Normal sinus rhythm Prolonged QT Abnormal ECG Confirmed by HUMBERTO FRASER MD ([id number]), editor managing director HUANG BRENNAN ([id number]) on 07/07/2017 12:59:58 PM Referred By: JESSIE Confirmed By:HUMBERTO FRASER MD 07/07/17 1300 Date Humberto Fraser MD CC: Wil To MD; Osei Wade MD Signed CONSULT PROG Observed: 07/07/2017 Status: COMPLETED Source: [place] 11:16 AM [facility] [place] REPOSITORY O ID: [id number] Author: Andrey Hernandez Service: Nephrology Author Type: [...] imaging results. Most recent labs Recent Labs 07/06/17 2258 07/06/17 0105 07/05/17 0403 07/04/17 [...] MG 2.3 2.1 2.0 -- Recent Labs 07/06/17 2258 07/06/17 0105 07/05/17 0403 WBC 12.72* 13.02* 12.08* [...] Speedy Andre MD, PGY4, Nephrology Fellow Pager [phone] July 07, 2017 2:43 PM I have [...] / [id number] Collected: 07/07/2017 Status: F Source: [place] 10:47 AM [facility] REPOSITORY TYPE CODE TESTS RESULT OUT [...] situation. Test performed by chemiluminescent immunoassay using Munet[employer]. Performed By: #### FK506 #### [facility] [address] [place], [place] [address] CASE MGT INIT Observed: 07/07/2017 Status: COMPLETED Source: [facility] 9:50 AM [facility] REPOSITORY HNO ID: [id number] Author: Bryant Welsh) Chura, RN Service: Care Management Author Type: Registered Nurse Type: Care Mgt Initial Assessment Filed: 07/07/2017 2:02 PM Note Text: CARE MANAGEMENT: ASSESSMENT AND DISCHARGE PLAN SERVICE DATE: 07/07/2017 SERVICE TIME: 9:50 AM PRIMARY CARE PHYSICIAN: WIL TO MD ADMISSION STATUS: Inpatient POTENTIAL DISCHARGE PLANS Home Home Care Alf Acute Care Hospital Correction Facility/Intermediate Care Facility To Be Determined 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 No [...] 07, 2017 TIME: 9:50 AM PAGER/CONTACT #: [phone] ALLIED HEALTH Observed: 07/07/2017 Status: COMPLETED Source: [place] 7:55 AM [facility] REPOSITORY HNO ID: [id number] Author: Rhonda BoggsRn) DICK Cagle Service: Infection [...] by PCR 07/05/2017 SIGNATURE: Rhonda Cagle RN [facility] PAT[place] NAME: Val Valverde DATE: July 07, 2017 TIME: 7:56 AM PAGER/CONTACT #: [phone] Infection Prevention after hours/weekend pager: [phone] NURSING PROG Observed: 07/07/2017 Status: COMPLETED Source: [place] 4:00 AM [facility] REPOSITORY HNO ID: [id number] Author: Marilou BoggsRn) DICK Weiss Service: Nursing Author Type: Registered Nurse Type: Nursing Progress Note Filed: 07/07/2017 4:18 AM Note Text: Nursing Progress: Topic: RESTRAINT NON-VIOLENT PATIENT NAME: Val Valverde PATIENT LOCATION: [place] [address]/[place] [address] The patient demonstrates Attempting to Remove Medical [...] METABOLIC PANEL Collected: 07/06/2017 Status: F Source: [place] 10:58 PM [facility] REPOSITORY TYPE CODE TESTS RESULT OUT [...] mg/dL Glucose High 178 Result Comment: The [place] Diabetes Association (ADA) provides guidance for cutoff [...] Standards of Medical Care in Diabetes 2016, [place] Diabetes Association. Diabetes Care. 2016.39(Suppl 1). LAB [...] CMP, MG1, PHOS, TRIG, VANCRA, CBCDIF #### [facility] [address] [place] [address] MAGNESIUM Collected: 07/06/2017 Status: F Source: [place] 10:58 PM [facility] REPOSITORY TYPE CODE TESTS RESULT OUT OF REFERENCE UNITS RANGE LAB MG 1.7-2.3 mg/dL Magnesium 2.3 Performed By: #### CMP, MG1, PHOS, TRIG, VANCRA, CBCDIF #### [facility] [address] [place] [address] PHOSPHORUS Collected: 07/06/2017 Status: F Source: [place] 10:58 PM [facility] REPOSITORY TYPE CODE TESTS RESULT OUT OF REFERENCE UNITS RANGE LAB PHOS 2.7-4.8 mg/dL Phosphorus 4.0 Performed By: #### CMP, MG1, PHOS, TRIG, VANCRA, CBCDIF #### [facility] [address] [place] [address] TRIGLYCERIDE Collected: 07/06/2017 Status: F Source: [place] 10:58 PM [facility] REPOSITORY TYPE CODE TESTS RESULT OUT OF REFERENCE UNITS RANGE LAB TRIGLY <150 mg/dL Triglyceride High 157 Result Comment: <150 mg/dL, Normal 150-199 mg/dL, Borderline high 200-499 mg/dL, High >499 mg/dL, Very high Reference: 1. National Cholesterol Education Program ATP III Guideline At-A-Glance Quick Desk Reference: National Heart, Lung, and Blood [place]. National Institutes of Health. 2001: [facility] Publication No. 01-3305. LAB FT hrs Fasting Unknown Time Performed By: #### CMP, MG1, PHOS, TRIG, VANCRA, CBCDIF #### [facility] [address] [place], [place] [address] VANCOMYCIN Collected: 07/06/2017 Status: F Source: [place] 10:58 PM [facility] REPOSITORY TYPE CODE TESTS RESULT OUT OF REFERENCE UNITS RANGE LAB VANCRA 5.0-20.0 ug/mL High Vancomycin 31.7 Result Comment: Reference ranges and high/low indicator flags are provided as general guidelines only. The treating physician must determine appropriate target levels/dosing based on the specific clinical situation. Performed By: #### CMP, MG1, PHOS, TRIG, VANCRA, CBCDIF #### [facility] [address] [place], [place] [address] CBC AND DIFFERENTIAL Collected: 07/06/2017 Status: F Source: [place] 10:58 PM [facility] REPOSITORY TYPE CODE TESTS RESULT OUT [...] Abs Lymph 0.11 Low LAB AMONO % Rowan% 0.9 LAB AAMONO <0.87 k/uL Abs Rowan 0.11 LAB AEOS % Eosin% 0.0 LAB [...] CMP, MG1, PHOS, TRIG, VANCRA, CBCDIF #### [facility] [address] [place], [place] [address] KIDNEY TRANSPLANT Observed: 07/06/2017 Status: F Source: [place] 4:03 PM [facility] [place] REPOSITORY * * *Final Report* * * DATE OF EXAM: Jul 06 2017 4:03PM [place] [id number] [facility] KIDNEY TRANSPLANT / PROCEDURE REASON: JENNIFFER (acute [...] VASCULATURE. NO HYDRONEPHROSIS OR PERINEPHRIC FLUID COLLECTION. Smoke And Flame Specialist: NELIA Transcribe Date/Time: Jul 06 2017 4:54P Dictated by : EDISON ELDER MD This examination was interpreted and the report reviewed and electronically signed by: KAT PAYTON MD on Jul 06 2017 5:24PM EST [id number] NUTRITION Observed: 07/06/2017 Status: COMPLETED Source: [place] 1:38 PM [facility] REPOSITORY HNO ID: [id number] Author: Elizabeth Baumann Service: NST-Nutrition Support Team Author Type: Registered Dietitian Type: Nutrition Filed: 07/06/2017 5:02 PM Note Text: NUTRITION THERAPY INITIAL ASSESSMENT SERVICE DATE: 07/06/2017 SERVICE TIME: 2:!3 PM RECOMMENDED MALNUTRITION DIAGNOSIS: SEVERE PROTEIN-CALORIE MALNUTRITION In the context of Acute Illness or Injury based on: Subcutaneous Fat Loss: Severe Loss Muscle Loss Severe Loss NUTRITION CARE PLAN: Intervention: 1. Continue tube feeding: NovasSebaciace Renal at 35 ml/hr (840 ml total). [...] SIGNATURE: Elizabeth Baumann RD PATIENT NAME: Val Valverde DATE: July 06, 2017 TIME: 1:38 PM PAGER: [phone] Observed: 07/06/2017 Status: F Source: [place] RESPIRATORY CULT/STAIN 12:56 PM [facility] REPOSITORY Sp. Request/Comment: - SCORED BY HM Smear Result - Rare Yeast --> ABNORMAL ALERT Many Polymorphonuclear leukocytes Moderate Mononuclear cells Culture Result - Rare Staphylococcus aureus --> ABNORMAL ALERT Insignificant colony count. No further workup. --> ABNORMAL ALERT Rare Normal respiratory conner present Performed By: #### RCULST #### [place] [id number] [place] [id number] M. PNEUMONIAE PCR Collected: 07/06/2017 Status: F Source: [place] 12:56 PM [facility] REPOSITORY TYPE CODE TESTS RESULT OUT [...] PCR Test developed and characteristics determined by [facility]. See Compliance Statement B: [employer] Performed by [facility], [address] [place] [id number] [email or web address], Jeff Cabral MD, Lab. Director Performed By: #### MYCPCR #### [facility] [address] [place] [address] [phone] [place] [address] CMV DNA QUANT BY Collected: 07/06/2017 Status: F Source: [place] PCR 10:30 AM [facility] REPOSITORY TYPE CODE TESTS RESULT OUT OF REFERENCE UNITS RANGE LAB CMVIU IU/mL CMV CMV DNA not DNA (IU/mL) detected by PCR. Result Comment: Linear Range 137 - 9,100,000 IU/mL (2.14 - 6.96 log IU/mL) Reference Range: Negative for CMV DNA Performed By: #### CMVQNT #### [place] [address] CONSULT Observed: 07/06/2017 Status: COMPLETED Source: [place] 9:47 AM [facility] [place] REPOSITORY HNO ID: [id number] Author: Andrey Hernandez Service: Nephrology Author Type: [...] ulceration Recurrent GI bleeding She presented from [facility] with fever, chest pain and shortness of [...] capsule Rfl: 1 Unknown at Unknown time xgkemt-xjwcraou-kfaqphu (CREON) 12,000-38,000 -60,000 unit cpDR Take 1 [...] tab(s) (NORVASC) 2.5 mg ORAL/FEEDING TUBE DAILY ktypko-zuitejpc-urdbati 10,440-39,150- 39,150 unit 1 tablet (VIOKACE) 1 [...] Speedy Andre MD, PGY4, Nephrology Fellow Pager [phone] July 05, 2017 10:05 PM [facility] STAFF PHYSICIAN NOTE OF PERSONAL [...] ARDS physiology probably best to keep on electric motor repairer side. Obligate volume intake will likely be [...] as above SIGNATURE: Andrey Hernandez MD PAGER: [phone] DATE of SERVICE: July 06, 2017 TIME of SERVICE: 9:46 AM XR CHEST 1V FRONTAL Observed: 07/06/2017 Status: F Source: [facility] 9:39 AM [facility] REPOSITORY * * *Final Report* * [...] No pneumothorax. Cardiomediastinal silhouette: Stable cardiac silhouette. Smoke And Flame Specialist: PSCB Transcribe Date/Time: Jul 06 2017 3:41P Dictated by : CHRISTIANO BURRELL MD This examination was interpreted and the report reviewed and electronically signed by: CHRISTIANO BURRELL MD on Jul 06 2017 3:42PM EST [id number] NURSING PROG Observed: 07/06/2017 Status: COMPLETED Source: [place] 9:10 AM [facility] REPOSITORY HNO ID: [id number] Author: María Elena (Rn) DICK Contreras Service: (none) Author Type: Registered Nurse Type: Nursing Progress Note Filed: 07/06/2017 2:45 PM Note Text: Nursing Progress: Topic: RESTRAINT NON-VIOLENT PATIENT NAME: Val Valverde PATIENT LOCATION: [id number]/[id number] The patient demonstrates Attempting to Remove Medical [...] RN PROGRESS Observed: 07/06/2017 Status: COMPLETED Source: [place] 7:00 AM [facility] REPOSITORY O ID: [id number] Author: Jefry Martinez Service: Critical Care Author Type: Resident Type: Progress Notes Filed: 07/06/2017 10:05 AM Note Text: Attestation signed by Alejo Olvera at 07/06/2017 3:18 PM [facility] STAFF PHYSICIAN NOTE OF PERSONAL [...] minutes. SIGNATURE: Alejo Olvera MD [facility] PAGER:[phone] DATE of SERVICE: 07/06/2017 TIME of SERVICE: [...] mother) [birth year]/10 now with CKD CMV -/+. 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 Plan: Holding [...] Yes Signature: Jefry Martinez PGY-3 IM pager: [phone] July 06, 2017 9:29 AM [facility] / [id number] Collected: 07/06/2017 Status: F Source: [place] 4:48 AM [facility] REPOSITORY TYPE CODE TESTS RESULT OUT [...] situation. Test performed by chemiluminescent immunoassay using Munetrix. Performed By: #### FK506 #### [facility] [address] [place], [place] [address] MAGNESIUM Collected: 07/06/2017 Status: F Source: [place] 1:05 AM [facility] REPOSITORY TYPE CODE TESTS RESULT OUT OF REFERENCE UNITS RANGE LAB MG 1.7-2.3 mg/dL Magnesium 2.1 Performed By: #### MG1, PHOS, CMP, CBCDIF #### [facility] [address] [place], [place] [address] PHOSPHORUS Collected: 07/06/2017 Status: F Source: [place] 1:05 AM [facility] REPOSITORY TYPE CODE TESTS RESULT OUT OF REFERENCE UNITS RANGE LAB PHOS 2.7-4.8 mg/dL Phosphorus 4.8 Performed By: #### MG1, PHOS, CMP, CBCDIF #### [facility] [address] [place], [place] [address] COMP METABOLIC PANEL Collected: 07/06/2017 Status: F Source: [place] 1:05 AM [facility] REPOSITORY TYPE CODE TESTS RESULT OUT [...] 74-99 mg/dL Glucose 78 Result Comment: The [place] Diabetes Association (ADA) provides guidance for cutoff [...] Standards of Medical Care in Diabetes 2016, [place] [employer] Association. Diabetes Care. 2016.39(Suppl 1). LAB [...] By: #### MG1, PHOS, CMP, CBCDIF #### [facility] [address] [place], [place] [address] CBC AND DIFFERENTIAL Collected: 07/06/2017 Status: F Source: [place] 1:05 [facility] REPOSITORY TYPE CODE TESTS RESULT [...] Abs Lymph 0.12 Low LAB AMONO % Rowan% 0.9 LAB AAMONO <0.87 k/uL Abs Rowan 0.12 LAB AEOS % Eosin% 0.0 LAB AAEOS <0.46 k/uL Abs Eosin 0.00 LAB ABASO % Baso% 0.0 LAB AABASO <0.11 k/uL Abs Baso 0.00 LAB ANIIMI Anisocytosis Present LAB OVAIMI Ovalocytes Few LAB POLIMI Polychromasia Slight LAB PLTEST Platelet Estimate Platelet estimate decreased LAB DTYP DTYPE Manual Diff Performed By: #### MG1, PHOS, CMP, CBCDIF #### [facility] [address] [place], [place] [address] GASA + ALL Collected: 07/05/2017 Status: F Source: [place] FOR 9:41 PM [facility] USE ONLY REPOSITORY TYPE CODE TESTS RESULT [...] Lactate 0.6 Performed By: #### ALLBG #### [facility] [address] [place], [place] [address] CREATININE,URINE,RAN Collected: Status: F Source: [place] 07/05/2017 6:30 PM [facility] REPOSITORY TYPE CODE TESTS RESULT OUT OF RANGE REFERENCE UNITS LAB UCRR 20-300 mg/dL 30.4 Creatinine,U rine,Ran Performed By: #### THOMPSON UNAR LEGUAG #### [facility] [address] [place], [place] [address] SODIUM,URINE,RANDOM Collected: Status: F Source: [place] 07/05/2017 6:30 PM [facility] REPOSITORY TYPE CODE TESTS RESULT OUT OF RANGE REFERENCE UNITS LAB UNAR 14-216 mmol/L 20 Sodium,Urine ,Random Performed By: #### JESSE MACKAYR LEGUAG #### [facility] [address] [place], [place] [address] LEGIONELLA URINE AG Collected: 07/05/2017 Status: F Source: [place] 6:30 PM [facility] REPOSITORY TYPE CODE TESTS RESULT OUT OF REFERENCE UNITS RANGE LAB LEGUAG Negative Legionella Urine Negative Ag Result Comment: Negative for L. pneumophila serogroup 1 antigen in urine, suggesting no recent or current infection. Legionnaires disease cannot be ruled out since other serogroups and species may also cause disease. Performed By: #### JESSE MACKAYR LEGUAG #### [facility] [address] [place], [place] [address] GASA + ALL Collected: 07/05/2017 Status: F Source: [place] FOR 4:33 PM [facility] RADIANCE USE ONLY REPOSITORY TYPE CODE [...] Comment: 60% Performed By: #### ALLBG #### [facility] [address] [place], [place] [address] NURSING PROG Observed: 07/05/2017 Status: COMPLETED Source: [place] 4:00 PM [facility] REPOSITORY HNO ID: [id number] Author: Opal (Rn) DICK Wakefield Service: (none) Author Type: Registered Nurse Type: Nursing Progress Note Filed: 07/05/2017 4:48 PM Note Text: Nursing Progress: Topic: RESTRAINT NON-VIOLENT PATIENT NAME: Val Valverde PATIENT LOCATION: [place] [address] The patient demonstrates Attempting to Remove Medical [...] 1V FRONTAL Observed: 07/05/2017 Status: F Source: [facility] 2:27 PM [facility] REPOSITORY * * *Final Report* * [...] Multiple surgical clips in the upper abdomen. Smoke And Flame Specialist: PSCB Transcribe Date/Time: Jul 05 2017 3:12P Dictated by : DEBBY FRY MD This examination was interpreted and the report reviewed and electronically signed by: DEBBY FRY MD on Jul 05 2017 3:13PM EST [id number] PROCEDURE Observed: 07/05/2017 Status: COMPLETED Source: [place] 2:15 PM [facility] REPOSITORY HNO ID: [id number] Author: Mee Linares (Fel) Service: Critical Care Author Type: Fellow Type: Procedures Filed: 07/05/2017 2:21 PM Note Text: Attestation signed by Alejo Olvera at 07/05/2017 3:30 PM I was present and supervised from start to finish BEDSIDE PROCEDURE NOTE PROCEDURE DATE: July 05, 2017 PROCEDURE START TIME: 1:30 PM PRIMARY PROCEDURALIST: Mee Linares MD PRIVATE DUTY NURSE(S): None INFORMED CONSENT: Informed Consent obtained and [...] 05, 2017 TIME: 2:15 PM PAGER/CONTACT #: [phone] GASA + ALL Collected: 07/05/2017 Status: F Source: [place] FOR 1:33 PM [facility] RADIANCE USE ONLY REPOSITORY TYPE CODE [...] Time, Art Performed By: #### ALLBG #### [facility] [address] [place], [place] [address] NURSING PROG Observed: 07/05/2017 Status: COMPLETED Source: [place] 1:30 PM [facility] REPOSITORY HNO ID: [id number] Author: Erica (Rn) DICK [place] Service: (none) Author Type: Registered Nurse Type: Nursing Progress Note Filed: 07/05/2017 1:46 PM Note Text: Nursing Progress Note Patient Name: Val Valverde Patient Location: [place] [address] [address] 1334: Preparing for intubation. 100% non-rebreather. HR [...] CONSULT PROG Observed: 07/05/2017 Status: COMPLETED Source: [place] 9:25 AM [facility] REPOSITORY O ID: [id number] Author: Krystal Amador (Pharmacist) Service: Pharmacy Author [...] questions, please contact Krystal Amador (Pharmacist) at [phone]. Age: [age] year old Allergies: ALLERGIES Allergen [...] 13.8 Krystal Amador PharmD (Critical Care Pharmacist) [id number] PLAN OF CARE Observed: 07/05/2017 Status: COMPLETED Source: [place] 8:33 AM [facility] REPOSITORY O ID: [id number] Author: Shari Mcdaniels Service: Critical Care Author Type: Resident Type: Plan of Care Filed: 07/05/2017 9:15 AM Note Text: Attestation signed by Alejo Olvera at 07/05/2017 2:12 PM [facility] STAFF PHYSICIAN NOTE OF PERSONAL INVOLVEMENT IN [...] minutes. SIGNATURE: Alejo Olvera MD [facility] PAGER:[phone] DATE of SERVICE: 07/05/2017 TIME of SERVICE: 11 PM Plan of care Patient will be taken care of by the [facility] [place] team Oceanographer Geological: Shari Mcdaniels 46F PMHx gastric cancer s/p [...] Shari Mcdaniels MD PGY-1, Internal Medicine Pager [phone] July 05, 2017 8:53 AM [facility] PCR Collected: 07/05/2017 Status: F Source: [place] 6:15 AM [facility] REPOSITORY TYPE CODE TESTS RESULT OUT OF REFERENCE UNITS RANGE LAB [facility] Nasal S aureus Spec Source LAB MRSRES Negative for MRSA MRSA by PCR. PCR LAB SARES Negative for Staph Staphylococcus aureus PCR aureus by PCR. Performed By: #### SAPCR #### [facility] [address] [place], [place] [address] HISTORY PHYSICAL Observed: 07/05/2017 Status: COMPLETED Source: [place] 5:07 AM [facility] REPOSITORY HNO ID: [id number] Author: Domi Dasilva Service: Critical Care Author [...] injection and clipping. Today she presented from [facility] with fever, chest pain and shortness of [...] capsule Rfl: 1 Unknown at Unknown time tevtpt-grpqyrle-ekpfwgv (CREON) 12,000-38,000 -60,000 unit cpDR Take 1 [...] (97.9 ?F) (07/05/17 0249) Pulse: 104 (07/05/17 030) Resp: (!) 34 (07/05/17299) BP: 122/76 (07/05/17299) MAP Non Invasive (Mean Arterial Pressure): 94 (07/05/17299) SpO2: 96 % (07/05/17299) Pain Score: 6/10 (07/05/17299) Diet DIET NPO Infusion Medications Lines, Drains, and Airways Line Peripheral Admission to Hospital Left Antecubital 20 Gauge -- days Peripheral Admission to Hospital Right Forearm 22 Gauge -- days Peripheral 07/04/17 2330 Left Forearm 18 Gauge less than 1 [...] mother) 02/21/10 now with CKD CMV -/+. 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 Current Assessment [...] BPH - Consider Transplant nephrology consult. - Lesa Current Assessment AND Plan Assessment: Patient has [...] nephrology in AM Respiratory failure with hypoxia ([facility]) 07/05/2017 - Present Overview Patient has new [...] 05, 2017 TIME: 5:07 AM PAGER/CONTACT #: [phone] [facility] STAFF PHYSICIAN NOTE OF PERSONAL [...] minutes. SIGNATURE: Domi Dasilva MD [facility] PAGER:[phone] DATE of SERVICE: July 05, 2017 TIME of SERVICE: 7:54 AM COMP METABOLIC PANEL Collected: 07/05/2017 Status: F Source: [place] 4:03 AM [facility] REPOSITORY TYPE CODE TESTS RESULT OUT [...] mg/dL Low Glucose 59 Result Comment: The [place] Diabetes Association (ADA) provides guidance for cutoff [...] Standards of Medical Care in Diabetes 2016, [place] Diabetes Association. Diabetes Care. 2016.39(Suppl 1). LAB [...] By: #### CMP, MG1, PHOS, CBCDIF #### [facility] [address] [place] [address] MAGNESIUM Collected: 07/05/2017 Status: F Source: [place] 4:03 [facility] REPOSITORY TYPE CODE TESTS RESULT OUT OF REFERENCE UNITS RANGE LAB MG 1.7-2.3 mg/dL Magnesium 2.0 Performed By: #### CMP, MG1, PHOS, CBCDIF #### [facility] [address] [place] [address] PHOSPHORUS Collected: 07/05/2017 Status: F Source: [place] 4:03 [facility] REPOSITORY TYPE CODE TESTS RESULT OUT OF REFERENCE UNITS RANGE LAB PHOS 2.7-4.8 mg/dL High Phosphorus 5.2 Performed By: #### CMP, MG1, PHOS, CBCDIF #### [facility] [address] [place] [address] CBC AND DIFFERENTIAL Collected: 07/05/2017 Status: F Source: [place] 4:03 [facility] REPOSITORY TYPE CODE TESTS RESULT [...] Abs Lymph Low 0.11 LAB AMONO % Rowan% 2.6 LAB AAMONO <0.87 k/uL Abs Rowan 0.31 LAB AEOS % Eosin% 0.0 LAB AAEOS <0.46 k/uL Abs Eosin 0.00 LAB ABASO % Baso% 0.0 LAB AABASO <0.11 k/uL Abs Baso 0.00 LAB ANIIMI Anisocytosis Present LAB POLIMI Polychromasia Slight LAB PLTEST Platelet Estimate Platelet estimate decreased LAB DTYP DTYPE Manual Diff Performed By: #### CMP, MG1, PHOS, CBCDIF #### [place] [address] [place] [id number] RAPID PCR FLU/RSV Collected: 07/05/2017 Status: F Source: [place] 1:10 AM [facility] REPOSITORY TYPE CODE TESTS RESULT OUT OF RANGE REFERENCE UNITS LAB FLRSRC Nasopharyngeal Specimen Swab Source LAB PCRFLA Negative for Influenza A Influenza A by RT PCR PCR LAB PCRFLB Positive for Abnormal Influenza B Influenza B by RT Alert PCR PCR LAB PCRRSV Negative for RSV PCR RSV by RT PCR Performed By: #### FLRSV, RVPPCR #### [facility] [place], [place] [address] RESP VIR PNL BY Collected: 07/05/2017 Status: F Source: [place] PCR 1:10 AM [facility] REPOSITORY TYPE CODE TESTS RESULT OUT OF RANGE REFERENCE UNITS LAB RVPSRC Nasopharyngeal Resp Viral Swab Panl Srce LAB FLUARV Negative Respiratory Abnormal Influenza A Viral Panel not Alert Virus performed since pathogen was identified by FLRSV test. If further testing is required, please call [phone] Result Comment: Account Credited LAB FLUAH1 Negative Abnormal Respiratory Alert Influenza A H1 Viral Panel not Virus performed since pathogen was identified by FLRSV test. If further testing is required, please call [phone] Result Comment: Account Credited LAB FLUAH3 Negative Abnormal Respiratory Alert Influenza A H3 Viral Panel not Virus performed since pathogen was identified by FLRSV test. If further testing is required, please call [phone] Result Comment: Account Credited LAB [id number] Negative Abnormal Respiratory Alert Influenza A Viral Panel not H1N1 09 performed since pathogen was identified by FLRSV test. If further testing is required, please call [phone] Result Comment: Account Credited LAB FLUBRV Negative Abnormal Respiratory Alert Influenza B Viral Panel not Virus performed since pathogen was identified by FLRSV test. If further testing is required, please call [phone] Result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 DRONABINOL 2.5 MG CAPSULE - [employer] website checked and validated. All prescriptions have been APPROPRIATELY filled. No suspicious activity was identified.- 06/23/2017 by Duy Dumas CNP Prescription instructions reviewed with patient as applicable. Potential red flag symptoms discussed with the patient. Reviewed appropriate action plan to take if red flag symptoms occur. Patient agreeable to treatment plan. Duy Dumas CNP PROGRESS Observed: 06/18/2017 Status: COMPLETED Source: [place] 12:00 AM [facility] REPOSITORY HNO ID: [id number] Author: Andrey Barajas Service: Abstract Author Type: Physician Type: Progress Notes Filed: 06/23/2017 7:58 AM Note Text: [facility] NOTE NAME: VAL VALVERDE CLINIC NO.: [id number] DATE OF SERVICE: 06/18/2017 SUBJECTIVE: Val was [...] up. Sincerely, DICTATED BY: Luca Alexandre/Sumit JOB# [id number] [place] ABS GR + CBC Collected: 06/16/2017 Status: F Source: [place] 11:17 AM [facility] REPOSITORY TYPE CODE TESTS RESULT OUT OF REFERENCE UNITS RANGE LAB WWBC 3.70-11.00 k/uL [place] WBC 8.91 LAB WRBC 3.90-5.20 m/uL Low [place] RBC 2.68 LAB WHGB 11.5-15.5 g/dL Low [place] Hemoglobin 10.0 LAB WHCT 36.0-46.0 % Low [place] Hematocrit 30.7 LAB WMCV 80.0-100.0 fL [place] High MCV 114.6 Result Comment: Result rechecked. LAB WMCH 26.0-34.0 pg High [place] MCH 37.3 LAB WMCHC 30.5-36.0 g/dL [place] MCHC 32.6 LAB WRDW 11.5-15.0 % [place] RDW 14.7 LAB WPLT 150-400 k/uL [place] 159 Platelet Cnt LAB WMPV 9.0-12.7 fL [place] MPV 10.7 Result Comment: Test performed at: [facility] [place], [address] [place] [address]. LAB ABGRAN 1.45-7.50 k/uL Absol Gran 5.57 Count Result Comment: Reviewed Performed By: #### WAGCBC #### [facility] [address] [place], [place] [address] HOSP Observed: 06/16/2017 Status: COMPLETED Source: [place] 10:45 AM [facility] REPOSITORY Infusion Center ([facility]) VAL VALVERDE ([id number]) 1970 F TRN Date Time Provider Department 06/16/17 10:45 AM INJECTION [facility] During your visit today, we recorded the following information about you: Reyes Galvez LPN, LPN 06/16/2017 12:16 PM Signed Injection deferred,Parameters not met HGB 10.0 Reyes Galvez LPN Referring Provider: ALEX TIAN [[id number]] Allergies As of Date: 06/16/2017 Noted Allergy Reaction SULFA (SULFONAMIDE ANTIBIOTICS) 04/07/2001 4 - Hives Comments: hives NSAIDS (NON-STEROIDAL ANTI-INFLAM*04/23/2016 5 - Intolerance Date Reviewed: 06/04/2017 Reviewed by: Reyes Galvez LPN - Fully Assessed Primary Visit Diagnosis:Anemia [...] Take 1 tablet by mouth every * [id number]-YQFSAEAW-WOEQPEB 12,00* Take 1 capsule by mouth three* [...] 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 [...] More... Visit Notes: >> Reyes Galvez LPN Mon Jun 16, 2017 12:14 PM Status: Signed Injection deferred,Parameters not met HGB 10.0 Reyes Galvez LPN Encounter Status:Closed by REYES GALVEZ on 06/16/17 ALLERGIES ALLERGIES DATE TYPE / CODE NAME / CODE REACTION SEVERITY SOURCE 06/03/2018 Drug NSAIDS Other Unknown [facility] Allergy/416 (Non-Steroida [facility] 484324(SNOM l Repository ED CT) Anti-Inflamma /[id number](R XNORM) 06/03/2018 Drug Sulfa Hives Unknown [facility]876[facility])/ Repository ED CT) [id number](RX NORM) 04/23/2016 Drug NSAIDS INTOLERANCE [facility] Class/95730 (NON-STEROIDA [facility] [place] [address](SNOMED L Repository CT) ANTI-INFLAMMA TORY DRUG) 04/07/2001 Drug SULFA HIVES Med [facility] Class/26551 (SULFONAMIDE [facility] [place] [facility](SNOMED ANTIBIOTICS) Repository CT) ENCOUNTERS ENCOUNTERS ADMIT/DISCHARGE ACCOUNT ADMITTING ENCOUNTER LOCATION SOURCE NUMBER CLASS 06/10/2018/06/10/19 [id number] [address] [facility] ing:SDCRoom: Repository AC06 05/25/2018/05/25/19 [id number] Ambulatory BMSBuilding:B [place] [address] [place] Repository 05/13/2018/05/13/20 [id number] Ambulatory BMSBuilding:B [place] [address] [facility] Repository 05/06/2018 [id number] Ambulatory BMSBuilding:B [place] MS.[facility] Repository 05/06/2018/05/06/20 [id number] [facility] [facility] ing:SDCRoom: Repository AC04 04/28/2018/04/28/20 [id number] Ambulatory [address] Hospital ing:SDCRoom: Repository AC09 04/28/2018/04/28/20 [id number] Ambulatory BMSBuilding:B [place].CF.[facility] Repository 04/27/2018/04/27/20 [id number] Ambulatory BMSBuilding:B [place] 18 MS.[facility] Repository 04/21/2018 [id number] [facility] Rep[facility] 04/21/2018 [id number] Ambulatory BMSBuilding:B [place] MS.CF.[facility] Repository 04/15/2018 [id number] Ambulatory [facility] Hospital ing:POLAB3 Repository 04/13/2018/04/14/20 [id number] Ambulatory [address] Repository 04/13/2018/04/14/20 [id number] Ambulatory [address] Repository 04/06/2018/04/06/20 [id number] Ambulatory [address] Repository 04/06/2018/04/07/20 [id number] Ambulatory [address] Repository 04/01/2018/04/02/20 [id number] Ambulatory [address] Repository 03/20/2018/03/20/20 [id number] Ambulatory [address] Repository 03/16/2018/03/17/20 [id number] Ambulatory [address] Repository 03/16/2018/03/17/20 [id number] Ambulatory [place] [facility] [place] Repository 03/12/2018/03/13/20 [id number] Ambulatory [place] [facility] [place] Repository 03/11/2018 [id number] Ambulatory [facility] ing:OT Repository 03/05/2018/03/06/20 [id number] Ambulatory [place] [facility] [place] Repository 03/04/2018/03/05/20 [id number] Ambulatory [place] [facility] [place] Repository 02/26/2018/02/28/20 [id number] Ambulatory [place] [facility] [place] Repository 02/16/2018/02/18/20 [id number] Ambulatory [place] [facility] [place] Repository 02/16/2018/02/17/20 [id number] Ambulatory [place] [facility] [place] Repository 02/16/2018/04/15/20 [id number] Ambulatory [place] [facility] [place] Repository 02/04/2018/02/06/20 [id number] Ambulatory [place] [facility] [place] Repository 01/30/2018/01/31/20 [id number] Ambulatory [place] [facility] [place] Repository 01/26/2018/01/28/20 [id number] Ambulatory [place] [facility] [place] Repository 01/26/2018/01/27/20 [id number] Ambulatory [place] [facility] [place] Repository 01/12/2018/01/14/20 [id number] Ambulatory [place] [facility] [place] Repository 01/12/2018/01/13/20 [id number] Ambulatory [place] [facility] [place] Repository 12/30/2017 [id number] Ambulatory [facility] [place] Repository 12/29/2017/12/31/19 [id number] Ambulatory [place] [facility] [place] Repository 12/29/2017/12/31/19 [id number] Ambulatory [place] [facility] [place] Repository 12/23/2017/01/22/20 [id number] Ambulatory [place] [facility] [place] Repository 12/23/2017/12/24/19 [id number] Ambulatory [place] [facility] [place] Repository 12/22/2017/12/23/19 [id number] Ambulatory [place] [facility] [place] Repository 12/15/2017/12/17/19 [id number] Ambulatory [place] [facility] [place] Repository 12/15/2017/12/17/19 [id number] Ambulatory [place] [facility] [place] Repository 12/11/2017/12/12/19 [id number] Ambulatory [place] [facility] [place] Repository 11/17/2017/11/18/19 [id number] Ambulatory [place] [facility] [place] Repository 11/17/2017/11/19/19 [id number] Ambulatory [place] [facility] [place] Repository 11/12/2017/11/13/19 [id number] Ambulatory [place] [facility] [place] Repository 11/03/2017/11/05/19 [id number] Ambulatory [place] [facility] [place] Repository 11/03/2017/11/04/19 [id number] Ambulatory [place] [facility] [place] Repository 10/22/2017/10/24/19 [id number] Ambulatory [place] [facility] [place] Repository 10/20/2017/10/22/19 [id number] Ambulatory [place] [facility] [place] Repository 10/20/2017/10/22/19 [id number] Ambulatory [place] [facility] [place] Repository 10/06/2017 [id number] Ambulatory [facility] [place] Repository 10/06/2017 [id number] Ambulatory [facility] [place] Repository 10/06/2017/10/07/19 [id number] Ambulatory [place] [facility] [place] Repository 10/06/2017/10/08/19 [id number] Ambulatory [place] [facility] [place] Repository 10/01/2017/11/04/19 [id number] Ambulatory [place] [facility] [place] Repository 09/29/2017/10/01/19 [id number] Ambulatory [place] [facility] [place] Repository 09/29/2017/09/30/19 [id number] Ambulatory [place] [facility] [place] Repository 09/24/2017/09/25/19 [id number] Ambulatory [place] [facility] [place] Repository 09/15/2017/09/16/19 [id number] Ambulatory [place] [facility] [place] Repository 09/15/2017/09/17/19 [id number] Ambulatory [place] [facility] [place] Repository 09/15/2017/09/17/19 [id number] Ambulatory [place] [facility] [place] Repository 09/08/2017/09/10/19 [id number] Ambulatory [place] [facility] [place] Repository 09/08/2017/09/19/19 [id number] Ambulatory [place] [facility] [place] Repository 09/03/2017/09/05/19 [id number] Ambulatory [place] [facility] [place] Repository 09/01/2017/09/05/19 [id number] Ambulatory [place] [facility] [place] Repository 08/29/2017/09/03/19 [id number] Ambulatory [place] [facility] [place] Repository 08/27/2017/08/29/19 [id number] Ambulatory [place] [facility] [place] Repository 08/25/2017/08/27/19 [id number] Ambulatory [place] [facility] [place] Repository 08/25/2017/08/26/19 [id number] Ambulatory [place] [facility] [place] Repository 08/20/2017/08/21/19 [id number] Ambulatory [place] [facility] [place] Repository 08/18/2017/08/19/19 [id number] Ambulatory [place] [facility] [place] Repository 08/11/2017/08/13/19 [id number] Ambulatory [place] [facility] [place] Repository 08/11/2017/08/14/19 [id number] Ambulatory [place] [facility] [place] Repository 08/11/2017/08/13/19 [id number] Ambulatory [place] [facility] [place] Repository 08/05/2017/08/06/19 [id number] Ambulatory [place] [facility] [place] Repository 07/31/2017/08/06/19 [id number] Ambulatory [place] [facility] [place] Repository 07/28/2017/07/29/19 [id number] Ambulatory [place] [facility] [place] Repository 07/28/2017/07/30/19 [id number] Ambulatory [place] [facility] [place] Repository 07/25/2017/07/26/19 [id number] Ambulatory [place] [facility] [place] Repository 07/25/2017/07/31/19 [id number] Ambulatory [place] [facility] [place] Repository 07/22/2017/07/23/19 [id number] Ambulatory [place] [facility] [place] Repository 07/21/2017/07/23/19 [id number] Ambulatory [place] [facility] [place] Repository 07/14/2017/07/14/19 [id number] Ambulatory [place] [facility] [place] Repository 07/07/2017/07/07/19 [id number] Ambulatory [place] [facility] [place] Repository 07/04/2017/07/14/19 [id number] PROCK, Inpatient [place] 18 KATHY A Encounter [facility] Repository 07/03/2017/07/04/19 [id number] [place], [place]patient [place] 18 [place] Encounter [facility] ing:PCURoom: Repository [id number]: 1 07/03/2017 [id number] [place], Ambulatory BMSBuilding[facility] 07/03/2017 [id number] Imamura, Ambulatory BMSBuilding[facility] Repository 06/30/2017/07/01/19 [id number] Ambulatory [address] Repository 06/30/2017/07/01/19 [id number] Ambulatory [address] Repository 06/23/2017/06/23/19 [id number] Ambulatory [address] Repository 06/18/2017/06/18/19 [id number] Ambulatory [address] Repository 06/16/2017/06/17/19 [id number] Ambulatory [address] Repository 06/16/2017/06/16/19 [id number] Ambulatory [address] Repository PAYERS PAYERS ENCOUNTER GUARANTOR PAYER SUBSCRIBER SOURCE 06/10/2018 VAL S Primary VAL S [place] [id number] Insurance:MEDICAL SALVAILDOB: [address] Number: Repository [id number]: 330 [id number] [phone] () Date:[id number] [address]WR: 06/10/2018 Secondary NOT GIVENUNK Kesha Insurance:SELF PAY [facility] Number: Effective Repository Date:2018-05-27 05/25/2018 VAL Bright Primary VAL S K[place] [id number] Insurance:MEDICAL SALVAILDOB: [address] Number: Repository [id number]: 330 [id number] [phone] (HP) Date:2239-81-85LF [address] [address]ST: 05/25/2018 Secondary NOT GIVENUNK [place] Insurance:SELF PAY [facility] Number: Effective Repository Date:2018-05-25 05/13/2018 VAL Bright Primary VAL S K[place]ha [id number] Insurance:MEDICAL SALVAILDOB: [facility] [id number] Number: Repository [address]Suv: 330 [id number] [phone] (HP) Date:6329-37-97ZR [address] [address]GR: 05/13/2018 Secondary NOT GIVENUNK [place] Insurance:SELF PAY [facility] Number: Effective Repository Date:2018-05-11 05/06/2018 VAL S Primary VAL S K[place] [id number] Insurance:MEDICAL SALVAILDOB: [facility] [id number], [place] Number: Repository [id number]: 330 [id number] [phone] (HP) Date:4689-39-23WR [address] [address]SL: 05/06/2018 Secondary NOT GIVENUNK K[place] Insurance:SELF PAY [facility] Number: Effective Repository Date:2018-05-06 05/06/2018 VAL S Primary VAL S [place] [id number] Insurance:MEDICAL SALVAILDOB: [facility] [id number], [place] Number: Repository [id number]: 330 [id number] [phone] (HP) Date:6601-91-05UW [address] [address]XJ: 05/06/2018 Secondary NOT GIVENUNK [place] Insurance:SELF PAY [facility] Number: Effective Repository Date:2018-04-28 04/28/2018 VAL S Primary VAL S [place] [id number] Insurance:MEDICAL SALVAILDOB: [facility] [id number] Number: Repository [address]Izq: 330 [id number] [phone] (HP) Date:9162-36-29TX [address] [address]QH: 04/28/2018 Secondary NOT GIVENUNK [place] Insurance:SELF PAY [facility] Number: Effective Repository Date:2018-04-27 04/28/2018 VAL S Primary VAL S K[place] [id number] E Insurance:MEDICAL SALVAILDOB: [facility] [id number] Number: Repository [address]Eyg: 330 [id number] [phone] (HP) Date:6823-81-21KK [address] [address]UV: 04/28/2018 Secondary NOT GIVENUNK [place] Insurance:SELF PAY [facility] Number: Effective Repository Date:2018-04-28 04/27/2018 VAL S Primary VAL S K[place] [id number] E Insurance:MEDICAL SALVAILDOB: [facility] [id number], [place] Number: Repository [address]Fwo: 330 [id number] [phone] (HP) Date:6204-82-89YR [address] [address]JL: 04/27/2018 Secondary NOT GIVENUNK [place] Insurance:SELF PAY [facility] Number: Effective Repository Date:2018-04-15 04/21/2018 VAL S Primary VAL S [place] [id number] Insurance:MEDICAL SALVAILDOB: [address]05-19[place], [place] Number: Repository [id number]: 330 [id number] [phone] (HP) Date:4546-29-26JN [address] [address]EZ: 04/21/2018 Secondary NOT GIVENUNK K[place] Insurance:SELF PAY [facility] Number: Effective Repository Date:2018-04-15 04/21/2018 VAL S Primary VAL Bright [place] [id number] Insurance:MEDICAL SALVAILDOB: [facility] [id number], [place] Number: Repository [id number]: 330 [id number] [phone] (HP) Date:4356-00-80PO [address] [address]MW: 04/21/2018 Secondary NOT GIVENUNK [place] Insurance:SELF PAY [facility] Number: Effective Repository Date:2018-04-21 04/15/2018 VAL S Primary VAL Bright Kesha [id number] Insurance:MEDICAL SALVAILDOB: [facility] [id number], [place] Number: Repository [address]Fnh: 330 [id number] [phone] (HP) Date:9717-52-60NI [address] [address]VX: 04/15/2018 Secondary NOT GIVENUNK K[place] Insurance:SELF PAY [facility] Number: Effective Repository Date:2018-04-15 03/11/2018 VAL S Primary VAL Bright [place] [id number] Insurance:MEDICAL SALVAILDOB: [facility] [id number], [place] Number: Repository [id number]: 330 [id number] [phone] (HP) Date:1095-55-16IW [address] [address]WM: 03/11/2018 Secondary NOT GIVENUNK [place] Insurance:SELF PAY [facility] Number: Effective Repository Date:2018-03-02 07/03/2017 Val Primary Val Kesha [id number] Insurance:MEDICAL SalvailDOB: [facility] [id number] Number: Repository [address]Mds: 330 [id number] [phone] (HP) Date:0382-23-86MJ [address] [address]BN: 07/03/2017 Secondary NOT GIVENUNK [place] Insurance:SELF PAY [facility] Number: Effective Repository Date:2017-07-03 07/03/2017 Val Primary Val [place] [id number] Insurance:MEDICAL SalvailDOB: [facility] [id number] Number: Repository [address]Wtf: 330 [id number] [phone] () Date:4800-70-78II [address] [address]CI: 07/03/2017 Secondary NOT GIVENUNK [place] Insurance:SELF PAY [facility] Number: Effective Repository Date:2017-07-03 07/03/2017 Val Primary Val [place] [id number] Insurance:MEDICAL SalvailDOB: [facility] [id number] Number: Repository [id number]: 330 [id number] [phone] (HP) Date:2731-93-45DU [address] [address]JC: 07/03/2017 Secondary NOT GIVENUNK Kesha Insurance:SELF PAY [facility] Number: Effective Repository Date:2017-07-03
== END 2018-05-06 16:06 | disposition home or self-care (01) ==
LOC: SDC 11:03 → AC 11:05
PROVIDERS: Anesthesiology; Family Provider Internal Medicine; PCP Internal Medicine; Referring Provider Surgery; Visit Provider Surgery
PROC: (CPT 36821; principal; 2018-05-06 12:45)
DX: T86.11 Kidney transplant rejection (principal); N17.9 Acute kidney failure, unspecified; I12.0 Hypertensive chronic kidney disease with stage 5 chronic kidney disease or end stage renal disease; N18.5 Chronic kidney disease, stage 5; D63.1 Anemia in chronic kidney disease; M19.90 Unspecified osteoarthritis, unspecified site; K21.9 Gastro-esophageal reflux disease without esophagitis; F41.9 Anxiety disorder, unspecified; Z79.899 Other long term (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 therapy; Z99.81 Dependence on supplemental oxygen; Z79.52 Long term (current) use of systemic steroids; Z85.028 Personal history of other malignant neoplasm of stomach; Z87.891 Personal history of nicotine dependence; Z90.3 Acquired absence of stomach [part of]
CPT/HCPCS: 36821; 81025

== ENCOUNTER 2018-06-10 08:04 | Day surgery (SDC) | payer OTHER, SELFPAY ==
[2018-05-25 14:23] VITALS: BMI 15.7
[2018-06-10] VITALS (10 sets, daily range): BP systolic 90–113; BP diastolic 58–81; PULSE 68–94; RESP 15–18; TEMP 36.8–37.5; O2SAT 94–99; BMI 13.8
[2018-06-10 08:48] LABS: Internal QC Validated? YES +Cl - CLEAR BKGD; Pregnancy, Urine Negative Negative
[2018-06-10 08:50] LABS: Hemoglobin 10.6 g/dl (12.0-15.0); Mean Corp Hgb Conc 32.1 g/gl (32-36); Mean Corpuscular Hgb 37.6 pg (27.0-32.0); Mean Platelet Vol. 10.5 fl (6.2-12.0); Platelet Count 147 K/mm3 (150-450); RBC Distribution Width CV 15.5 % (11.6-14.6); RBC Distribution Width SD 62.9 fl (35.1-43.9); Red Blood Count 2.82 M/mm3 (4.2-5.4); White Blood Count 10.7 K/mm3 (4.4-11.0)
[2018-06-10 08:54] LABS: Anion Gap 8 (5-15); BUN 22 mg/dL (7-18); BUN/Creat Ratio 5.8 RATIO (10-20); Calcium,Total 8.3 mg/dL (8.5-10.1); Chloride 104 mmol/L (98-107); Creatinine, Serum 3.82 mg/dL (0.55-1.02); EST Glomerular Filtration Rate 14 mL/min (>60); Est Glom Filt Rate - Afr Amer 16 mL/min (>60); Estimated Creatinine Clearance 9.22 ml/min; Glucose 77 mg/dL (74-106); Potassium 3.7 mmol/L (3.5-5.1); Sodium Level 139 mmol/L (136-145)
[2018-06-10 08:55] LABS: Scan Indicated on CBC? Y/N NO
[2018-06-10] MEDS: Bupivacaine Mpf 0.5% 30 ML VIAL (10:20)
[2018-06-10] MEDS: Heparin Injection (Vial) 5,000 UNIT/ML VIAL 5000 UNIT (11:00)
--- NOTE | 2018-06-10 12:31 | DCINST_ITS ---
<Martinez Jenkins - Last Filed: 06/10/18 12:29> Discharge Diet: Renal Diet Discharge Activity: May Not Drive - for 2-3 days or while taking narcotic pain medications., May Shower, May Take a Tub Bath - in 5 days. Lifting Restrictions: 5 pounds Keep extremity elevated above heart level: - - Keep arm elevated above the heart level for 3 days. Additional Activity Instructions:: Exercise hand vigorously with a stress ball. Call your doctor if your incision/area has: Continuous Slow Oozing, Sudden Increased Bleeding - apply pressure and call your doctor., Increased Pain/ Swelling, Increased Redness, Foul Smelling Discharge Call your doctor if you observe: Fever of 101 or Higher Suture Line Care: Avoid Pulling/Pushing, Avoid Pinching/Bending Cleanse incision/area with: Keep Dressing Clean & Dry Additional Dressing/Incision Instructions:: Change or remove dressing in two days. Elevate your arm for comfort, May redress the incision with gauze and tape. Leave the steri strips on for one week. Allergies/Adverse Reactions: Allergies Sulfa (Sulfonamide Antibiotics) Allergy (Verified 06/03/18 15:02) Hives NSAIDS (Non-Steroidal Anti-Inflamma Adverse Reaction (Verified 06/03/18 15:02) Other Medications to take at Discharge Calcium Citrate/Vitamin D3 [Calcium Citrate - Vit D Caplet] 1 ea PO BID 07/03/17 Cholecalciferol (Vitamin D3) [Vitamin D3] 50,000 unit PO UD 07/03/17 Cyanocobalamin [Vitamin B12] 1,000 mcg IM Q30D 07/03/17 Dronabinol [Marinol] 2.5 mg PO 4X/DAY 07/03/17 Esomeprazole Mag Trihydrate [Nexium] 40 mg PO DAILY 07/03/17 Gabapentin [Neurontin] 300 mg PO BIDCM 07/03/17 Levonorgestrel [Mirena] 1 ea VAGINAL UD 07/03/17 Lipase/Protease/Amylase [Karina Dallas 12,000 Units Capsule] 1 ea PO TID 07/03/17 Prednisone 5 mg PO DAILY 07/03/17 Vits [Prenatabs FA ] 1 tab PO DAILY 07/03/17 Tizanidine HCl [Zanaflex] 4 mg PO BID 04/27/18 amlodipine 2.5 mg tablet 10 mg PO DAILY tab 04/27/18 Biotin 10,000 mcg PO DAILY 05/05/18 B Complex W-C No.20/Folic Acid [Virt-Caps Softgel] 1 mg PO QHS 06/03/18 Hydrocodone/Acetaminophen [Hydrocodone-Acetamin 5-325 mg] 1 each PO TID PRN 06/03/18 Tacrolimus 1 mg PO BID 06/03/18 Oxycodone [Oxyir] 5 mg PO Q6H PRN PRN 3 Days #10 tablet 06/10/18 The following prescriptions were given: Oxycodone [Oxyir] 5 mg PO Q6H PRN PRN 3 Days #10 tablet PRN Reason: Pain Orders to be completed after discharge: ,Urine Time Frame: 06/10/18, Location: Laboratory Primary Care Physician: Deb Gregory MD [Primary Care Provider] - Test Results: Test results from this visit will be discussed in further detail at your follow- up appointment, if applicable. Please Follow Up With: Martinez Jenkins MD - [phone] When: Call to make an appointment for suture removal and follow up in 7-10 days. <Asia Davis - Last Filed: 06/10/18 16:01> Test Results: Test results from this visit will be discussed in further detail at your follow- up appointment, if applicable.
--- NOTE | 2018-06-10 12:33 | PCM.OPRPT ---
Problem List (1) Chronic renal failure, stage 5 Status: Chronic Report of Operation Date of Procedure: 06/10/18 Pre-Operative Diagnosis: Stage V chronic renal failure Post-Operative Diagnosis: Same Surgery/Procedure Performed:: Stage II transposition left upper extremity basilic vein to brachial artery arteriovenous hemodialysis fistula creation Description of Surgical Findings:: Timeout and informed consent was obtained. 47-year-old female taken the operating placement table underwent monitored anesthesia care local anesthetic. The left upper extremity sterilely prepped and draped. 1% lidocaine mixed 50-50 with 0.5% Marcaine was used as local anesthetic. A total 16 cc was used. Previously ultrasound was used to identify the basilic vein. Local was instilled a longitudinal incision was made up the left upper arm. Sharp and blunt dissection was used to tediously dissect free the basilic vein. Side branches were secured with 3-0 Vicryl ligatures and hemoclips were indicated. The vein was dissected up to the axilla at a branching point. Then local was instilled to create a new tunnel more anteriorly and superficially. The vein was ligated at the antecubital space with a 3-0 Vicryl. The vein was then tunneled had a good positional lie. At that spot sharp blunt dissection a bit utilized to identify the brachial artery and circumferential control was obtained. There was good positional lie of the vein. Patient received 4000 units of heparin. Peripheral vascular clamps were placed on the brachial artery and 11 blade was used to make an arteriotomy which was extended with Carrillo scissors. A end-to-side venous to arterial anastomosis was created with running 7-0 Prolene. There was good hemostasis. At the completion there was a good palpable thrill and yet still a 3+ left radial pulse. Good positional lie. Patient received 30 mg of protamine as reversal agent. The deep wound was treated with FloSeal. The wound was closed in layers with multiple interrupted 3-0 Vicryl in a running septic or 4-0 Monocryl. Steri-Strips Telfa ABD soft roll Jayjay wrap applied. Sponge and instrument and needle counts were reported the surgeon be correct. Blood loss was 300 cc. Most of this from diffuse oozing from skin and soft tissues. She tolerated procedure well was taken to the recovery area in satisfactory condition no apparent complication. Specimens none. Drains none. Blood loss 300 cc. Martinez Jenkins M.D., F.A.C.S. Type of Anesthesia:: Local MAC Anesthesiologist: Yesenia Sánchez
[2018-06-10] MEDS: oxyCODONE 5 MG Tablet PO (16:07)
--- OUTSIDE RECORDS SUMMARY | 2018-08-12 02:43 | XMS RPT_ITS ---
:1970 Author Organization OHIP Support Name Relationship Address Phone KAITLYNN NIYAH Unavailable Unavailable + SALVHALLE MEDARDO Unavailable [address] + [place] [address] UE Unavailable Unavailable Unavailable KAITLYNN NIYAH Unavailable . + [place] [address] SALVHALLE, MEDARDO Unavailable [address] + [place] [address] UE Unavailable Unavailable Unavailable KAITLYNN, NIYAH Unavailable . + [place] [address] SALVHALLE, MEDARDO Unavailable [address] + [place] [address] UE Unavailable Unavailable Unavailable KAITLYNN NIYAH Unavailable Unavailable + SALVAIL, MEDARDO Unavailable [address] + [place] [address] UE Unavailable Unavailable Unavailable KAITLYNN NIYAH Unavailable Unavailable + SALVAIL, MEDARDO Unavailable [address] + [place] [address] UE Unavailable Unavailable Unavailable KAITLYNN, NIYAH Unavailable Unavailable + SALVAIL, MEDARDO Unavailable [address] + [place] [address] UE Unavailable Unavailable Unavailable KAITLYNN, NIYAH Unavailable Unavailable + [place] [address] SALVAIL, MEDARDO Unavailable [address] + [place] [address] UE Unavailable Unavailable Unavailable SALVAIL, MEDARDO Unavailable [address] + [place] [address] UE Unavailable Unavailable Unavailable SALVAIL, MEDARDO Unavailable [address] + [place] [address] UE Unavailable Unavailable Unavailable NIYAH CALDERÓN Unavailable Unavailable + [place] [address] SALVAIL, MEDARDO Unavailable [address] + [place] [address] UE Unavailable Unavailable Unavailable SALVAIL, MEDARDO Unavailable [address] + [place] [address] UE Unavailable Unavailable Unavailable SALVAIL, MEDARDO Unavailable [address] + [place] [address] UE Unavailable Unavailable Unavailable RB[facility] Unavailable [address] [facility] + [place] [address] SALVAIL, MEDARDO Unavailable [address] + [place] [address] [facility] Unavailable [address] [facility] + [place] [address] SALVAIL, MEDARDO Unavailable [address] + [place] [address] [facility] Unavailable [address] [facility] + [place] [address] ABRAM, MEDARDO Unavailable [address] + [place] [address] Care Team Providers Name Role Phone ALEX TIAN Referring Unavailable ASMITA, LAPMAN Referring Unavailable ANDREY BARAJAS Attending Unavailable DUY DUMAS ([facility]) Attending Unavailable GANTA, WIL Referring Unavailable ASMITA, BHAVESHMAN Referring Unavailable ASMITA LAPMAN Referring Unavailable KATHY LOUIS Admitting Unavailable SHANEL MCGARRY) Attending Unavailable SASIDLINDA, ALEJO Referring Unavailable SHANEL MCGARRY) Referring Unavailable DUY DUMAS ([facility]) Attending Unavailable BRYAN KOO ([facility]) Referring Unavailable ASMITA, BHAVESHMAN Referring Unavailable GANTA, WIL Referring Unavailable GANTA, WIL Referring Unavailable BHAVESH TIANMAN Attending Unavailable ASMITA, LAPMAN Referring Unavailable BRYAN KOO ([facility]) Referring Unavailable EMIR FOWLER Attending Unavailable KERI ADAME ([facility]) Referring Unavailable ASMITA, BHAVESHMAN Referring Unavailable ASMITA, LAPMAN Referring Unavailable BRYAN KOO ([facility]) Attending Unavailable BRYAN KOO ([employer]) Referring Unavailable ASMITA, LAPMAN Referring Unavailable ASMITA, LAPMAN Referring Unavailable ASMITA, LAPMAN Referring Unavailable GANTA, WIL Attending Unavailable GANTA, WIL Referring Unavailable HUMBERTO GOODE Referring Unavailable LARDBRYAN ([employer]) Attending Unavailable ASMITA, LAPMAN Referring Unavailable ASMITA, LAPMAN Referring Unavailable BALDWINVANI Attending Unavailable ADAMEKERI ([employer]) Referring Unavailable ASMITA, LAPMAN Attending Unavailable ASMITA, LAPMAN Referring Unavailable ASMITA, LAPMAN Referring Unavailable LARD, BRYAN Ruggiero ([employer]) Referring Unavailable ADAME, KERI (LOAN SECRETARY) Referring Unavailable ASMITA, LAPMAN Referring Unavailable ASMITA, LAPMAN Referring Unavailable BALDWINVANI Attending Unavailable KERI ADAME (LOAN SECRETARY) Referring Unavailable ANDREY BARAJAS Attending Unavailable LARD, BRYAN Ruggiero (LOAN SECRETARY) Attending Unavailable DAYANNA JORDAN Referring Unavailable ADAMEKERI ([employer] SECRETARY) Attending Unavailable ANDREY BARAJAS Attending Unavailable ANDREY BARAJAS Referring Unavailable ASMITA, LAPMAN Referring Unavailable ASMITA, LAPMAN Referring Unavailable DELVIS HAMEED Attending Unavailable LARDBRYAN ([employer] SE[employer]ETARY) Referring Unavailable GANTA, WIL Attending Unavailable GANTA, WIL Referring Unavailable ASMITA, LAPMAN Referring Unavailable ASMITA, LAPMAN Referring Unavailable GANTA, WIL Referring Unavailable ADAME, AMY (LOAN SECRETARY) Attending Unavailable ASMITA, LAPMAN Referring Unavailable PIERSON, AUSTEN F Attending Unavailable PIERSON, AUSTEN F Referring Unavailable ASMITA, LAPMAN Referring Unavailable ASMITA, LAPMAN Referring Unavailable ASMITA, LAPMAN Referring Unavailable ASMITA, LAPMAN Referring Unavailable ANDREY BARAJAS Attending Unavailable ANDREY BARAJAS Referring Unavailable LARD, BRYAN Ruggiero (LOAN SECRETARY) Referring Unavailable ASMITA, LAPMAN Referring Unavailable ASMITA, LAPMAN Referring Unavailable PIERSON, AUSTEN F Attending Unavailable PIERSON, AUSTEN F Referring Unavailable LARD, BRYAN Ruggiero (LOAN SECRETARY) Referring Unavailable ASMITA, LAPMAN Referring Unavailable ASMITA, LAPMAN Referring Unavailable ASMITA, LAPMAN Referring Unavailable LARD, BRYAN Ruggiero (LOAN SECRETARY) Referring Unavailable PIERSON, AUSTEN F Attending Unavailable ANDREY BARAJAS [facility] Referring Unavailable ASMITA, LAPMAN Referring Unavailable ASMITA, LAPMAN Referring Unavailable LARD, BRYAN Ruggiero (LOAN SECRETARY) Referring Unavailable DUY DUMAS (LOAN SECRETARY) Referring Unavailable ASMITA, LAPMAN Referring Unavailable ASMITA, LAPMAN Referring Unavailable ASIA MENDOZA ([facility]) Attending Unavailable VANI BALDWIN Referring Unavailable ASMITA, ALEX Referring Unavailable ASMITA, BHAVESHMAN Referring Unavailable ASMITA, LAPMAN Referring Unavailable AUSTEN PIERSON Referring Unavailable Cebul, Martinez Attending Unavailable Cebul, Martinez Referring Unavailable Ganta, Wil Primary Care Unavailable Cebul, Martinez Attending Unavailable Cebul, Martinez Referring Unavailable Ganta, Wil Primary Care Unavailable Cebul, Martinez Attending Unavailable Cebul, Martinez Referring Unavailable Ganta, Wil Primary Care Unavailable Jocelinebul, Martinez Consulting Unavailable Asia Davis PA-C Attending Unavailable Ganta, Wil Referring Unavailable Asia Davis PA-C Attending Unavailable Ganta, Wil Referring Unavailable Cebul, Martinez Attending Unavailable Cebul, Martinez Referring Unavailable Ganta, Wil Primary Care Unavailable Ganta, Wil Primary Care Unavailable Imamura, Yoichi Admitting Unavailable Marietta Mcdaniel Consulting Unavailable Dionte Hutchison Attending Unavailable Imamura, Yoichi Admitting Unavailable Ganta, Wil Primary Care Unavailable Imamura, Yoichi Consulting Unavailable Paintsil, Phillips Attending Unavailable Imamura, Yoichi Admitting Unavailable Ganta, Wil Primary Care Unavailable Marietta Mcdaniel Consulting Unavailable Dionte Hutchison Attending Unavailable Dionte Hutchison Consulting Unavailable Duy Dumas Attending Unavailable Duy Dumas Referring Unavailable Ganta, Wil Primary Care Unavailable Marietta Mcdaniel Attending Unavailable Ganta, Wil Primary Care Unavailable Marietta Mcdaniel Attending Unavailable JonasErichMarietta Referring Unavailable Ganta, Wil Primary Care Unavailable Cebul, Martinez Attending Unavailable Erich Mcdanieline Referring Unavailable Cebul, Martinez Attending Unavailable Cebul, [...] Unknown 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, Martinez Active [facility] / T86.11(ICD-10) Hospital Repository 04/06/2018 Active Chronic kidney DELVIS HAMEED Active [place] disease, stage 5 / Clinic Main N18.5(ICD-10) [place] Repository 04/06/2018 Active Gastric ulcer, DELVIS HAMEED Active [place] unspecified as acute Clinic Main or chronic, without [place] hemorrhage or Repository perforation / K25.9(ICD-10) 04/06/2018 Active 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 / [facility] Main B25.8(ICD-10) [place] Repository 07/05/2017 Active Personal history of NA Active [place] other malignant Clinic Main neoplasm of stomach / [place] Z85.028(ICD-10) Repository 01/23/2018 Active Vitamin B12 AUSTEN PIERSON Active [place] deficiency anemia due [facility] to intrinsic factor [place] deficiency / Repository D51.0(ICD-10) 12/30/2016 Active Essential (primary) AUSTEN PIERSON Active [place] hypertension / [facility] I10(ICD-10) [place] Repository 01/30/2018 Active Other specified AUSTEN PIERSON Active [place] disorders of bone Clinic Main density and [place] structure, Repository unspecified site / M85.80(ICD-10) 12/30/2017 Active Other specified soft NA Active [place] tissue disorders / Clinic Other M79.89(ICD-10) [place] Repository 08/27/2017 Active Acquired absence of BRYAN KOO Active [place] stomach (part of) / L (LOAN SECRETARY) Clinic Main Z90.3(ICD-10) [place] Repository 12/23/2017 Active Encounter for BRYAN KOO Active [place] screening for other L (LOAN SECRETARY) Clinic Main disorder / [place] Z13.89(ICD-10) Repository 12/23/2017 Active Vitamin D deficiency, BRYAN KOO Active [place] unspecified / L (LOAN SECRETARY) Clinic Main E55.9(ICD-10) [place] Repository 12/23/2017 Active Candidal esophagitis BRYAN KOO Active [place] / B37.81(ICD-10) L (LOAN SECRETARY) Clinic Main [place] Repository 12/23/2017 Active Chronic gastric ulcer ANDREY BARAAJS Active [place] without hemorrhage or [facility] perforation / [place] K25.7(ICD-10) Repository 10/06/2017 Active Non-pressure chronic NA Active [place] ulcer of skin of Clinic [facility] other sites with [place] unspecified severity Repository / L98.499(ICD-10) 10/06/2017 Active 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, unspecified Clinic Main / B25.9(ICD-10) [place] Repository 10/06/2017 Active Other specified AUSTEN PIERSON Active [place] postprocedural states Clinic Main / Z98.890(ICD-10) [place] Repository 09/15/2017 Active Pneumonia, NA Active [place] unspecified organism Clinic [facility] / J18.9(ICD-10) [place] Repository 09/15/2017 Active Shortness of breath / NA Active [place] R06.02(ICD-10) Clinic Main [place] Repository 08/27/2017 Active Anemia in chronic NA Active [place] kidney disease / [facility] D63.1(ICD-10) [place] Repository 08/27/2017 Active Chronic kidney NA Active [place] disease, stage 4 Clinic [facility] (severe) / [place] N18.4(ICD-10) Repository 07/05/2017 Active Chronic kidney NA Active [place] disease, unspecified Clinic Main / N18.9(ICD-10) [place] Repository 12/04/2015 Active Chronic kidney NA Active [place] disease, stage 3 Clinic [facility] (moderate) / [place] N18.3(ICD-10) Repository 08/18/2017 Active Encounter for NA Active [place] screening for [facility] 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 / [place] Z13.820(ICD-10) Repository 07/25/2017 Active Encounter for NA Active [place] screening mammogram [facility] for malignant [place] neoplasm of breast / Repository Z12.31(ICD-10) 07/22/2017 Active Gastro-esophageal ANDREY BARAJAS Active [place] reflux disease [facility] without esophagitis / [place] K21.9(ICD-10) Repository 07/14/2017 Active Bacteremia / SHANEL MCGARRY Active [place] R78.81(ICD-10) () Clinic Main [place] Repository 07/14/2017 Active Acute kidney failure, SHANEL MCGARRY Active [place] unspecified / () [facility] N17.9(ICD-10) [place] Repository 07/14/2017 Active Other specified SHANEL MCGARRY Active [place] diseases of pancreas () Clinic [facility] / K86.89(ICD-10) [place] Repository 07/14/2017 Active Unspecified severe SHANEL MCGARRY Active [place] protein-calorie () [facility] malnutrition / [place] E43(ICD-10) Repository 07/14/2017 Active [facility]ney [facility] / () [facility] Z94.0(ICD-10) [place] Repository 07/05/2017 Active Thrombocytopenia, SHANEL MCGARRY [facility] unspecified / () [facility] Main D69.6(ICD-10) [place] Repository 07/04/2017 Active Acute respiratory KATYA [facility] failure with hypoxia (MD) Clinic [facility] / J96.01(ICD-10) [place] Repository 07/04/2017 Active Acute respiratory BRANDONKATYA KEARNEYFormerly [facility], [facility] distress syndrome / (MD) Clinic [facility] J80(ICD-10) [place] Repository 07/04/2017 Active Influenza due to BRANDONKATYA SmithFormerly [facility] identified novel () [facility] influenza A virus [place] with pneumonia / Repository J09.X1(ICD-10) 07/04/2017 Active Influenza due to BRANDONSHANEL KEARNEY [facility] other identified () Clinic Main influenza virus with [place] other respiratory Repository manifestations / J10.1(ICD-10) 07/04/2017 Active 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 [facility] (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 () Clinic Main therapy / [place] Z79.899(ICD-10) Repository 07/04/2017 [facility] unspecified site / [place] A49.1(ICD-10) Repository 07/04/2017 Active Unspecified BRANDONSHANEL KEARNEY [facility] streptococcus as the () Clinic Main cause of diseases [place] classified elsewhere Repository / B95.5(ICD-10) 07/04/2017 Active Encounter for SHANEL MCGARRY [facility] aftercare following () Clinic Main kidney transplant / [place] Z48.22(ICD-10) Repository 06/23/2017 Active Unknown / DUY DUMAS [facility] UNK(Unknown) (LOAN SECRETARY) Clinic Main [place] Repository PROCEDURES PROCEDURES No Procedure Records FoundRESULTS RESULTS DISCHARGE INSTRUCTION Observed: 06/11/2018 Status: F Source: [place] 6:10 AM [facility] [place] [facility] Medical Records Department [address] [place] [address] Instructions for Home/Discharge Instructions 06/10/18 1229 MR#: [id number] Acct: [id number] Name: VAL VALVERDE Rep #: [id number] : 1970 47 From: Martinez Jenkins MD PCP: Wil To MD [place] [facility] [place]Martinez Jenkins - Last Filed: 06/10/18 12:29> [...] Follow Up With: Martinez Jenkins MD - [phone] When: Call to make an appointment for [...] 06/11/2018 Status: F Source: [place] 6:10 AM [facility] [place] [facility] Medical Records Department [address] [place] [address] Operative Report 06/10/18 1233 MR#: [id number] Acct: [id number] Name: UNIQUEHALLEVAL Deangelo Rep #: [id number] : 1970 47 From: [place] Jenkins MD PCP: Wil To MD Status: DE[place] [facility] [place] Location[place] [facility] Problem List (1) Chronic renal failure, stage [...] BASIC METABOLIC Collected: 06/10/2018 Status: F Source: [place] PROFILE ([facility]) 8:30 AM [facility] [place] TYPE CODE TESTS RESULT OUT OF [...] GAP 8 Performed By: #### L500.2500 #### [facility] [address] [place], [address] CBC-COMPLETE BLOOD CNT Collected: 06/10/2018 Status: F Source: [place] NO DIFF 8:30 AM [facility] [place] TYPE CODE TESTS RESULT OUT OF [...] MPV 10.5 Performed By: #### L100.0500 #### [facility] [address] [place], [address] ,URINE Collected: 06/10/2018 Status: F Source: [place] 8:22 AM [facility] [place] TYPE CODE TESTS RESULT OUT OF REFERENCE UNITS RANGE LAB L400.8000 Negative Normal HCGUQUAL Negative Result Comment: Very dilute urine specimens, as indicated by a low specific gravity, may not contain telesales representative levels of hCG. If is still suspected, a first morning urine specimen should be collected 48 hours later and tested. Performed By: #### L400.7600 #### [facility] [address] [place], [address] PROGRESS Observed: 06/04/2018 Status: COMPLETED Source: [place] 4:56 PM [facility] [place] RE[place]ITORY HNO ID: [id number] Author: Cornell Welsh) [place] Clarke Service: (none) Author Type: Registered Nurse Type: Progress Notes Filed: 06/04/2018 5:07 PM Note Text: New Referral Referring Physician Dr. Marietta Mcdaniel Organ Type kidney ESRD Yes. 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 Yes Name of Dialysis Facility: [facility] [address] [place] [address] Diabetes No. Current BMI 15.1 Previous Transplant Yes Date of Last Transplant 02/21/2010 [facility] @ [facility] Currently Listed? No. Facility: N/A Willing to accept blood transfusion? Yes Potential Living Donor? No Full transplant evaluation? Yes Nephrology Screen Required? No If yes to nephrology screen, reason: N/A IRAIS Rendon RN Pre-Kidney AND Pancreas Steward/Stewardess Lounge [facility] SURGERY VISIT REPORT Observed: 05/27/2018 Status: F Source: [place] 4:14 PM [facility] [place] [facility] [address] [place] [address]. [address] [place] [address] OFFICE VISIT Date of Service: 05/25/18 MR#: [id number] Acct: [id number] Name: UNIQUEHALLEVAL Rep #: [id number] : 1970 Provider: Asia Davis PA-C Age/Sex: 47/F Location: [facility] Status: Signed Intake Vital Signs05/25/18 Body Mass [...] UD 07/03/17 [History Confirmed 05/25/18] Lipase/Protease/Amylase [Karina Dr 12,000 Units Capsule] 1 ea PO [...] comfortable, no acute distress Nutritional Appearance: cachectic [facility] Head: normal to inspection Eyes General: [...] VISIT REPORT Observed: 05/13/2018 Status: F Source: [place] 1:49 PM [facility] [place] [facility] [address] [place] [address]. [address] [place] [address] OFFICE VISIT Date of Service: 05/13/18 MR#: [id number] Acct: [id number] Name: VAL VALVERDE Rep #: [id number] : 1970 Provider: Asia Davis PA-C Age/Sex: 47/F Location: [facility] Status: Signed Intake Intake Visit Reasons: Fistula Placment 05/06 Realty Specialist Required: No Is patient in pain?: No [...] on dialysis T, TH, and SAT at [facility]. Patient currently has tunneled dialysis catheters. Objective [...] DISCHARGE INSTRUCTION Observed: 05/07/2018 Status: F Source: [place] 2:44 PM [facility] [place] [facility] Medical Records Department [address] [place] [address] Instructions for Home/Discharge Instructions 05/06/18 1435 MR#: [id number] Acct: [id number] Name: VAL VALVERDE Rep #: [id number] : 1970 47 From: [place] Jenkins MD PCP: Wil To MD Status: [place] [facility] Discharge Diet: Renal Diet Discharge Activity: May [...] Follow Up With: [place] Jenkins MD - [phone] When: Call to make an appointment for suture removal and follow up in 1 week. 05/07/18 1444 <Electronically signed by Martinez Jenkins MD> Date Martinez Jenkins MD CC: Wil To MD OPERATIVE REPORT Observed: 05/06/2018 Status: F Source: [place] 2:35 PM [facility] [place] [facility] Medical Records Department [address] [place] [address] Operative Report 05/06/18 1432 MR#: [id number] Acct: [id number] Name: VAL VALVERDE Rep #: [id number] : 1970 47 From: Martinez Jenkins MD PCP: Wil To MD Status: REG [facility] [place] Location: [place] [address] Problem List (1) Renal transplant rejection Status: [...] Anesthesia:: Local MAC Anesthesiologist: Aaron Breen 05/06/18 1437 <Electronically signed by [place] Jenkins MD> Date Martinez Jenkins MD CC: Wil To MD; Martinez Jenkins MD Signed ,URINE Collected: 05/06/2018 Status: F Source: [place] 11:10 AM [facility] [place] TYPE CODE TESTS RESULT OUT OF REFERENCE UNITS RANGE LAB L400.8000 Negative Normal HCGUQUAL Negative Result Comment: Very dilute urine specimens, as indicated by a low specific gravity, may not contain telesales representative levels of hCG. If is still suspected, a first morning urine specimen should be collected 48 hours later and tested. Performed By: #### L400.7600 #### [facility] [address] [facility], [address] DISCHARGE INSTRUCTION Observed: 04/29/2018 Status: F Source: [place] 9:00 AM [facility] [place] [facility] Medical Records Department [address] [place] [address] Instructions for Home/Discharge Instructions 04/28/18 0947 MR#: [id number] Acct: [id number] Name: VAL VALVERDE Rep #: [id number] : 1970 47 From: Martinez Jenkins MD PCP: Wil To MD Status[place] [facility] Discharge Activity: May Not Shower Lifting Restrictions: [...] Follow Up With: [place] Jenkins MD - [phone] When: Further office follow-up will be scheduled after your fistula 04/29/18 0900 <Electronically signed by Martinez Jenkins MD> Date Martinez Jenkins MD CC: Wil To MD OPERATIVE REPORT Observed: 04/29/2018 Status: F Source: [place] 9:00 AM [facility] [place] [facility] Medical Records Department [address] [place] [address] Operative Report 04/28/18 1035 MR#: [id number] Acct: [id number] Name: VAL VALVERDE Rep #: [id number] : 1970 47 From: Martinez Jenkins MD PCP: Wil To MD Status: [facility] Y Location: [facility] Problem List (1) Renal transplant rejection Status: [...] LINE PLACEMENT Observed: 04/28/2018 Status: F Source: [place] 9:53 AM [facility] [place] [facility] Imaging Services [address] [place] [address] CXR for Line Placement MR#: [id number] Acct: [id number] Name: VAL VALVERDE Rep #: [id number] : 1970 F 47 From: Vikas Haney MD PCP: Wil To MD Status: [facility] Study: CXR for Line Placement Date of Exam: 04/28/18 Exam# [id number] Ordering Dr: Martinez Jenkins MD STUDY: X-RAY [...] Vikas Haney MD at 11:03 EST Tel [phone], Service support , CC: Wil To MD; Martinez Jenkins MD Family Medicine Physician Assistant: Signed ,URINE Collected: 04/28/2018 Status: F Source: [place] 8:10 AM [facility] [place] Order Comment: Reason for Laboratory Test PRE-OP TYPE CODE TESTS RESULT OUT OF REFERENCE UNITS RANGE LAB L400.8000 Negative Normal HCGUQUAL Negative Result Comment: Very dilute urine specimens, as indicated by a low specific gravity, may not contain telesales representative levels of hCG. If is still suspected, a first morning urine specimen should be collected 48 hours later and tested. Performed By: #### L400.7600 #### [facility] [address] [place], [address] SURGERY VISIT REPORT Observed: 04/27/2018 Status: F Source: [place] 4:28 PM [facility] [place] [facility] [address] [place] [address] OFFICE VISIT Date of Service: 04/27/18 MR#: [id number] Acct: [id number] Name: VAL VALVERDE Rep #: [id number] : 1970 Provider: Martinez Jenkins MD Age/Sex: 47/F Location: [facility] Status: Signed Intake Vital Signs04/27/18 Height 4 ft 11.5 in 04/27/18 Weight: 77 lb Intake Visit Reasons: Fistula Placement/Tunnel Cath, Vein Mapg [facility] tbd Realty Specialist Required: No Is patient in pain?: No [...] fistula. On April 21, 2018 at the [facility] she had bilateral upper extremity vein [...] DUPLEX UPPER Observed: 04/21/2018 Status: F Source: [place] EXTREMITY 12:52 PM [facility] [place] [facility] Cardiovascular Services [address] [place] [address] Saphenous Vein Mapping, Bilat 04/21/18 0830 MR#: [id number] Acct: [id number] Name: VAL VALVERDE Rep #: [id number] : 1970 47 From: Martinez Jenkins MD Attending Dr: Marietta Mcdaniel DO Status: REG CLI Ordering Dr: Marietta Mcdaniel DO Date: 04/21/18 Location: [facility] Sex: F A Admitted: Reason For Study: [...] Date Dictated: 04/21/18 0830 Date Transcribed: 04/21/18 125 Family Medicine Physician Assistant: Signed PTHIN Collected: 04/15/2018 Status: F Source: [place] 11:27 AM [facility] [place] TYPE CODE TESTS RESULT OUT OF RANGE REFERENCE UNITS LAB L509.1000 18.4-80.1 pg/mL High PTHIN 299.6 Performed By: #### L509.1000 #### [facility] [place], [address] HEPATITIS B SURFACE Collected: 04/15/2018 Status: F Source: [place] AG 11:27 AM [facility] [place] TYPE CODE TESTS RESULT OUT OF RANGE REFERENCE UNITS LAB L3100.0400 Negative Normal HB Negative SURF AG Result Comment: Performed at: - [facility] [address] [id number] Message Clerk: Simón Bowers PhD, Phone: [phone] Performed By: #### L3100.0390, L3100.0528 #### [facility] (refer to report for specific site) refer to report for address and phone number HEP B SURFACE Collected: 04/15/2018 Status: F Source: [place] ANTIBODIES 11:27 AM [facility] [place] TYPE CODE TESTS RESULT OUT OF [...] [place] HEMOGLOBIN Collected: 04/13/2018 Status: F Source: [place] 12:07 PM [facility] [place] REPOSITORY TYPE CODE TESTS RESULT OUT OF REFERENCE UNITS RANGE LAB WHGB 11.5-15.5 g/dL Low [place] Hemoglobin 9.4 Result Comment: Test performed at: [facility], [address] [place] [address] Rd[address] [place] [address]. [place] HEMATOCRIT Collected: 04/13/2018 Status: F Source: [place] 12:07 PM [facility] REPOSITORY TYPE CODE TESTS RESULT OUT OF REFERENCE UNITS RANGE LAB WHCT 36.0-46.0 % Low [place] Hematocrit 28.9 Result Comment: Test performed at: [facility], [address] [place] [address] Rd., [place] [address]. PROGRESS Observed: 04/06/2018 Status: COMPLETED Source: [place] 4:40 PM [facility] REPOSITORY HNO ID: [id number] Author: Delvis Hameed Service: (none) Author Type: [...] MD This note was partially generated using Cyber[employer] voice recognition system, and there may be [...] April 06, 2018 4:40 PM Provider Attestation: IDelvis MD, personally performed the services described in this documentation. All medical record entries made by the scribe were at my direction and in my presence. I have reviewed the chart and discharge instructions (if applicable) and agree that the record reflects my personal performance and is accurate and complete. Dr. Delvis Hameed April 06, 2018 4:40 PM CNOV Observed: 04/06/2018 Status: COMPLETED Source: [place] 4:00 PM [facility] REPOSITORY Office Visit (NEPHMN) VAL VALVERDE ([id number]) 1970 F TRN Date Time Provider Department [...] MD This note was partially generated using [employer] voice recognition system, and there may be [...] GFR less than 15 ml/min ([facility]) [N18.5] Other Visit Diagnoses:Kidney replaced by transplant [Z94.0] History of gastric cancer [Z85.028] Gastric ulcer, unspecified chronicity, unspecified whether gastric ulcer hemorrhage or perforation present [K25.9] Other cytomegaloviral diseases ([facility]) [B25.8] Immunosuppressive management encounter following kidney transplant [Z79.899, Z94.0] Order(s):tacrolimus (PROGRAF) 1 mg capsuleTake 1 capsule by mouth twice daily. - ICD 10 = Z94.0 kidney transplant 02/21/2010Disp: 270 capsuleRfl: 3 Prescriptions as of 04/06/2018 Sig: TACROLIMUS 1 MG CAPSULE Take 1 capsule by mouth twice* XAXJOX-FJVYTLIR-RBEHRSR 12,00* Take 1 capsule by mouth three* [...] ulcer disease with hemorrhage [K27.4] INVALID FOR*12/30/2016 Vhvpn-tw-ttkyxiu kidney injury (HCC) [N17.9, N1*INVALID FOR*12/30/2016 More... [...] METABOLIC PANEL Collected: 04/06/2018 Status: F Source: [place] 11:56 AM [facility] [...] / [id number] Collected: 04/06/2018 Status: F Source: [place] 11:56 AM [facility] REPOSITORY TYPE CODE TESTS [...] situation. Test performed by chemiluminescent immunoassay using [employer]. Performed By: #### FK506 #### [facility] [address] [place], [place] [address] PROGRESS Observed: 04/01/2018 Status: COMPLETED Source: [place] 5:21 PM [facility] REPOSITORY HNO ID: [id number] Author: Wil To Service: (none) Author Type: [...] (VITAMIN D3) 50,000 unit cap capsule - kqzevr-hlfwwttt-tpomugz (CREON 12) 12,000-38,000 -60,000 unit cpDR - [...] (HCC) - ICD9: 262, ICD10: E43 - IEZVNV-CNNWQBGP-BEDQYCJ 12,000-38,000-60,000 UNIT CAPSULE,DELAYED REL - DRONABINOL 2.5 [...] MD CNOV Observed: 04/01/2018 Status: COMPLETED Source: [place] 4:40 PM [facility] REPOSITORY Office Visit (INTMWS) VAL VALVERDE ([id number]) 1970 F TRN Date Time Provider Department 04/01/18 4:40 PM WIL TO INTMWS During your visit today, we recorded the following information about you: Pulse Respiration Blood pressure Weight 101/minute 12/minute 138/80 35.4 kg Height 1.511 m WIL TO MD 04/01/2018 8:14 PM Signed Reason for Visit Patient presents with: Established Patient: 3 month follow up- questions Valliz Valverde is a 47 year old female [...] (VITAMIN D3) 50,000 unit cap capsule - tslkmw-qfymehfu-gzuzoaw (CREON 12) 12,000-38,000 -60,000 unit cpDR - [...] (HCC) - ICD9: 262, ICD10: E43 - PIGHTP-WNUNJVSM-ZXUAJLY 12,000-38,000-60,000 UNIT CAPSULE,DELAYED REL - DRONABINOL 2.5 [...] neoplasm of stomach, unspecified location (HCC) [C16.9] Order(s):gzvxpp-sxjceuuq-ukuvzbu (CREON 12) 12,000-38,000 -60,000 unit cpDRTake 1 capsule by mouth three times daily.Disp: 90 capsuleRfl: 5 dronabinol (MARINOL) 2.5 mg capsuleTake 1 capsule by mouth four times daily for 30 days.Disp: 120 capsuleRfl: 0 amLODIPine (NORVASC) 10 mg tabletTake 1 tablet by mouth once daily.Disp: Rfl: Prescriptions as of 04/01/2018 Sig: EXZRUU-HOXJHWON-UPUNBRX 12,00* Take 1 capsule by mouth three* [...] ulcer disease with hemorrhage [K27.4] INVALID FOR*12/30/2016 Lvcnd-zd-szrmdll kidney injury (HCC) [N17.9, N1*INVALID FOR*12/30/2016 More... [...] ordered this encounter Disp Refills Start End FNCIHW-GSYYLKMA-UDAPECX 12,000-38,00* 90 c* 5 04/01/2018 Route: ORAL [...] once daily. Medications Discontinued During This Encounter szqgrm-gpvdanau-pmqotmj (CREON 12) 1* 90 c* 3 06/10/2016 04/01/2018 Route: ORAL Sig: Take 1 capsule by mouth three times daily with meals for 30 days. Disc: Reason for discontinue is not on file. wnncti-bzvlalqg-ksufelc (CREON 12) 1* 07/03/2017 04/01/2018 Class: Historical [...] METABOLIC PANL Collected: 03/20/2018 Status: F Source: [place] 3:14 PM [facility] REPOSITORY TYPE CODE TESTS RESULT OUT OF REFERENCE UNITS RANGE LAB GLU 74-99 mg/dL Glucose Incorrect test ordered. Correct order placed. Results to follow. Result Comment: REORDERED [place] [address] Account Credited LAB BUN 7-21 mg/dL Incorrect BUN test ordered. Correct order placed. Results to follow. Result Comment: REORDERED ON [place] [id number] Account Credited LAB CRET 0.58-0.96 mg/dL Creatinine Incorrect test ordered. Correct order placed. Results to follow. Result Comment: REORDERED ON [place] [id number] Account Credited LAB NA 136-144 mmol/L Sodium Incorrect test ordered. Correct order placed. Results to follow. Result Comment: REORDERED ON [place] [address] Account Credited LAB K 3.7-5.1 mmol/L Potassium Incorrect test ordered. Correct order placed. Results to follow. Result Comment: REORDERED ON [place] [id number] Account Credited LAB CL 97-105 mmol/L Chloride Incorrect test ordered. Correct order placed. Results to follow. Result Comment: REORDERED ON [place] [id number] Account Credited LAB CO2 22-30 mmol/L Incorrect CO2 test ordered. Correct order placed. Results to follow. Result Comment: REORDERED ON [place] 376888 Account Credited LAB AGAP 9-18 mmol/L Incorrect Anion Gap test ordered. Correct order placed. Results to follow. Result Comment: REORDERED ON [id number]. [id number] Account Credited LAB CA 8.5-10.2 mg/dL Calcium, Total Incorrect test ordered. Correct order placed. Results to follow. Result Comment: REORDERED ON [id number]. [id number] Account Credited LAB GFRAA eGFR- Amer. Incorrect test ordered. Correct order placed. Results to follow. Result Comment: REORDERED ON [id number]. [id number] Account Credited LAB GFRNAA . eGFR-All Incorrect Other Races test ordered. Correct order placed. Results to follow. Result Comment: REORDERED ON [id number]. [id number] Account Credited LAB GFRPED eGFR-Ped. Incorrect Factor test ordered. Correct order placed. Results to follow. Result Comment: REORDERED ON [id number]. [id number] Account Credited Performed By: #### BMP #### [facility] [address] [place], [place] [address] BASIC METABOLIC PANL Collected: 03/20/2018 Status: F Source: [place] 3:14 PM [facility] REPOSITORY TYPE CODE TESTS RESULT OUT OF REFERENCE UNITS RANGE LAB GLU 74-99 mg/dL High Glucose 109 Result Comment: The [place] Diabetes Association (ADA) provides guidance for cutoff [...] Standards of Medical Care in Diabetes 2016, [place] Diabetes Association. Diabetes Care. 2016.39(Suppl 1). LAB [...] actual GFR. Performed By: #### BMP #### [facility] [address] [place], [place] [address] BASIC METABOLIC PANL Collected: 03/20/2018 Status: F Source: [place] 3:11 PM [facility] REPOSITORY TYPE CODE TESTS RESULT OUT OF REFERENCE UNITS RANGE LAB GLU 74-99 mg/dL Requisitioning Glucose entry error Result Comment: Account Credited ORDERED WITH WRONG PROCESSING LOCATION. HAD TO REORDER WITH [facility] SO THAT TEST COULD BE RAN. [id number] LAB BUN 7-21 mg/dL Requisitioning entry BUN error Result Comment: Account Credited ORDERED WITH WRONG PROCESSING LOCATION. HAD TO REORDER WITH [facility] SO THAT TEST COULD BE RAN. [id number] 1853 LAB CRET 0.58-0.96 mg/dL Requisitioning entry Creatinine error Result Comment: Account Credited ORDERED WITH WRONG PROCESSING LOCATION. HAD TO REORDER WITH [facility] SO THAT TEST COULD BE RAN. [id number] 7528 LAB NA 136-144 mmol/L Requisitioning entry Sodium error Result Comment: Account Credited ORDERED WITH WRONG PROCESSING LOCATION. HAD TO REORDER WITH [facility] SO THAT TEST COULD BE RAN. [id number] 1644 LAB K 3.7-5.1 mmol/L Requisitioning entry Potassium error Result Comment: Account Credited ORDERED WITH WRONG PROCESSING LOCATION. HAD TO REORDER WITH [facility] SO THAT TEST COULD BE RAN. [id number] 6995 LAB CL 97-105 mmol/L Requisitioning entry Chloride error Result Comment: Account Credited ORDERED WITH WRONG PROCESSING LOCATION. HAD TO REORDER WITH [facility] SO THAT TEST COULD BE RAN. [id number] 9372 LAB CO2 22-30 mmol/L Requisitioning entry error CO2 Result Comment: Account Credited ORDERED WITH WRONG PROCESSING LOCATION. HAD TO REORDER WITH [facility] SO THAT TEST COULD BE RAN. [id number] 2818 LAB AGAP 9-18 mmol/L Requisitioning entry Anion Gap error Result Comment: Account Credited ORDERED WITH WRONG PROCESSING LOCATION. HAD TO REORDER WITH [facility] SO THAT TEST COULD BE RAN. [id number] 7928 LAB CA 8.5-10.2 mg/dL Requisitioning entry Calcium, Total error Result Comment: Account Credited ORDERED WITH WRONG PROCESSING LOCATION. HAD TO REORDER WITH [facility] SO THAT TEST COULD BE RAN. [id number] 4680 LAB GFRAA eGFR- Requisitioning entry Amer. error Result Comment: Account Credited ORDERED WITH WRONG PROCESSING LOCATION. HAD TO REORDER WITH [facility] SO THAT TEST COULD BE RAN. [id number] 9880 LAB GFRNAA . eGFR-All Requisitioning entry Other Races error Result Comment: Account Credited ORDERED WITH WRONG PROCESSING LOCATION. HAD TO REORDER WITH [facility] SO THAT TEST COULD BE RAN. [id number] 2466 LAB GFRPED eGFR-Ped. Requisitioning entry Factor error Result Comment: Account Credited ORDERED WITH WRONG PROCESSING LOCATION. HAD TO REORDER WITH [facility] SO THAT TEST COULD BE RAN. [id number] Performed By: #### BMP #### [facility] [address] [place], [place] [address] OT FUNCTIONAL CAPACITY Observed: 03/18/2018 Status: F Source: [place] 9:11 AM [facility] [place] [facility] Occupational Therapy [facility] [facility] [place] [address] Fax REHABILITATION SERVICES INITIAL EVALUATION MR#: [id number] Acct: [id number] Name: VAL VALVERDE Rep #: [id number] : 1970 47 From: Bryan Terry OTR/L, CHT Referring Dr.: RUDY Dumas Status: REG RCR Insurance: [facility] Eval Date: SELF PAY INSURANCE HP OT [...] Pt state she was last employed at [employer]. pt states she worked there for about 23 years. 2016 was her last day. 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 pt states she did a lot [...] Strength: pt demo 4/5 functional strength- Right Health Coach Strength Average: 51.66 Right Health Coach Strength Percentile: 9% Left Health Coach Strength Average: 56.00 Left Health Coach Strength Percentile: 16# Right Lateral Pinch Average: [...] [place] HEMATOCRIT Collected: 03/16/2018 Status: F Source: [place] 2:13 PM [facility] REPOSITORY TYPE CODE TESTS RESULT OUT OF REFERENCE UNITS RANGE LAB WHCT 36.0-46.0 % Low [place] Hematocrit 30.6 Result Comment: Test performed at: [address] [place] [address]. [place] HEMOGLOBIN Collected: 03/16/2018 Status: F Source: [place] 2:13 PM [facility] REPOSITORY TYPE CODE TESTS RESULT OUT OF REFERENCE UNITS RANGE LAB WHGB 11.5-15.5 g/dL Low [place] Hemoglobin 9.8 Result Comment: Test performed at: [address] [place] [address]. PROGRESS Observed: 03/04/2018 Status: COMPLETED Source: [place] 4:43 PM [facility] REPOSITORY HNO ID: [id number] Author: Keri Adame Service: (none) Author Type: [...] APRN.CNP CNOV Observed: 03/04/2018 Status: COMPLETED Source: [place] 4:30 PM [facility] REPOSITORY Office Visit (WOOB) VAL VALVERDE ([id number]) 1970 F TRN Date Time Provider Department [...] TOPICAL GEL Follow-up as needed. Keri Adame APRN.[facility] Referring Provider: SELF [[id number]] Allergies As of Date: 03/04/2018 Noted Allergy Reaction SULFA (SULFONAMIDE ANTIBIOTICS) 04/07/2001 4 - Hives Comments: hives NSAIDS (NON-STEROIDAL ANTI-INFLAM*04/23/2016 5 - Intolerance Date Reviewed: 03/04/2018 Reviewed by: Keri ([facility]) Pako - Fully Assessed Reason for Visit: [...] * Take 1 capsule by mouth every* HCJFKG-YPZYJAOV-ELDCZVF 12,00* Take by mouth three times raad* [...] ulcer disease with hemorrhage [K27.4] INVALID FOR*12/30/2016 Ghjbm-qk-otejbre kidney injury (HCC) [N17.9, N1*INVALID FOR*12/30/2016 More... [...] 03/04/18 PROGRESS Observed: 02/16/2018 Status: COMPLETED Source: [place] 1:05 PM [facility] REPOSITORY HNO ID: [id number] Author: Alex Tian Service: (none) Author Type: Physician Type: Progress Notes Filed: 02/17/2018 7:07 AM Note Text: PATIENT NAME: Val Valverde. CLINIC NO: [id number]. ATTENDING PHYSICIAN: Alex Tian MD. DATE OF SERVICE: 02/16/2018 ?? DIAGNOSIS: Anemia of chronic disease secondary stage IV renal failure; status- post partial gastrectomy for stage IB gastric cancer AND History of renal transplant. ?? HPI: This is a 46-year-old woman from [facility] who was adopted into a family [...] 11.5 - 15.5 g/dL 9.3 (L) Hematocrit, [place] 36.0 - 46.0 % 28.7 (L) Component [...] function. Alex Tian MD Cc: DAYANNA Damon ISTAT BMP Collected: 02/16/2018 Status: F Source: [place] 10:50 AM [facility] [place] REPOSITORY TYPE CODE TESTS RESULT OUT OF [...] eGFR may not accurately reflect actual GFR. [place] HEMATOCRIT Collected: 02/16/2018 Status: F Source: [place] 10:50 AM [facility] REPOSITORY TYPE CODE TESTS RESULT OUT OF REFERENCE UNITS RANGE LAB WHCT 36.0-46.0 % Low [place] Hematocrit 28.7 Result Comment: Test performed at: [address] [place] [address]. [place] HEMOGLOBIN Collected: 02/16/2018 Status: F Source: [place] 10:50 AM [facility] REPOSITORY TYPE CODE TESTS RESULT OUT OF REFERENCE UNITS RANGE LAB WHGB 11.5-15.5 g/dL Low [place] Hemoglobin 9.3 Result Comment: Test performed at: [address] [place] [address]. CBC AND DIFFERENTIAL Collected: 02/16/2018 Status: F Source: [place] 10:50 AM [facility] REPOSITORY TYPE CODE TESTS [...] k/uL Abs Lymph 1.46 LAB AMONO % Gilchrist% 12.6 LAB AAMONO <0.87 k/uL Abs Gilchrist High 1.18 LAB AEOS % Eosin% 1.6 LAB AAEOS <0.46 k/uL Abs Eosin 0.15 LAB ABASO % Baso% 0.3 LAB AABASO <0.11 k/uL Abs Baso 0.03 LAB AUNRBC 0 /100 WBC NRBCs 0.0 LAB ABNRBC <0.01 k/uL Absolute nRBC <0.01 LAB DTYP DTYPE Auto Diff Performed By: #### CBCDIF, CMP, MG1, PREALB #### [facility] [address] [place] [id number] COMP METABOLIC PANEL Collected: 02/16/2018 Status: F Source: [place] 10:50 AM [facility] [...] 74-99 mg/dL Glucose 83 Result Comment: The [place] Diabetes Association (ADA) provides guidance for cutoff [...] Standards of Medical Care in Diabetes 2016, [place] Diabetes Association. Diabetes Care. 2016.39(Suppl 1). LAB [...] By: #### CBCDIF, CMP, MG1, PREALB #### [facility] [place], [place] [address] MAGNESIUM Collected: 02/16/2018 Status: F Source: [place] 10:50 AM [facility] [place] REPOSITORY TYPE CODE TESTS RESULT OUT OF REFERENCE UNITS RANGE LAB MG 1.7-2.3 mg/dL Low Magnesium 1.5 Performed By: #### CBCDIF, CMP, MG1, PREALB #### [facility] [address] [place] [address] PREALBUMIN Collected: 02/16/2018 Status: F Source: [place] 10:50 AM [facility] REPOSITORY TYPE CODE TESTS RESULT OUT OF REFERENCE UNITS RANGE LAB PREALB 17-36 mg/dL Prealbumin 35 Performed By: #### CBCDIF, CMP, MG1, PREALB #### [place] [address] IRON AND TIBC Collected: 02/16/2018 Status: F Source: [place] 10:50 AM [facility] REPOSITORY TYPE CODE TESTS RESULT OUT OF REFERENCE UNITS RANGE LAB IRN 41-186 ug/dL Iron 72 LAB TIBC 232-386 ug/dL Low TIBC 209 LAB SAT 15-57 % Transferrin Saturatn 34 Performed By: #### IRON, FERR #### [place] [address] FERRITIN Collected: 02/16/2018 Status: F Source: [place] 10:50 AM [facility] REPOSITORY TYPE CODE TESTS RESULT OUT OF REFERENCE UNITS RANGE LAB FERR 14.7-205.1 ng/mL High Ferritin 1022.0 Performed By: #### IRON, FERR #### [place] [address] CNOVSP Observed: 02/16/2018 Status: COMPLETED Source: [place] 10:50 AM [facility] REPOSITORY Visit (SP) Office (BREANNA) VAL VALVERDE ([id number]) 1970 F TRN Date Time Provider Department [...] Signed PATIENT NAME: Val Valverde. CLINIC NO: [id number]. ATTENDING PHYSICIAN: Alex Tian MD. DATE OF SERVICE: 02/16/2018 ?? DIAGNOSIS: Anemia of chronic disease secondary stage IV renal failure; status- post partial gastrectomy for stage IB gastric cancer AND History of renal transplant. ?? HPI: This is a 46-year-old woman from [facility] who was adopted into a family [...] Latest Ref Rng AND Units 02/16/2018 Hemoglobin, [place] 11.5 - 15.5 g/dL 9.3 (L) Hematocrit, [place] 36.0 - 46.0 % 28.7 (L) Component [...] Bryan Koo CNP Referring Provider: ALEX TIAN [[id number]] Allergies As of Date: 02/16/2018 Noted Allergy [...] of Service: EST PATIENT VISIT LEVEL 3 [[id number]] Disposition: Return in about 6 months (around [...] * Take 1 capsule by mouth every* KVRHIC-GYSDZBVL-WTRBPDK 12,00* Take by mouth three times raad* [...] ulcer disease with hemorrhage [K27.4] INVALID FOR*12/30/2016 Yxely-bd-hklswqc kidney injury (HCC) [N17.9, N1*INVALID FOR*12/30/2016 More... [...] / [id number] Collected: 02/16/2018 Status: F Source: [place] 10:50 AM [facility] [place] REPOSITORY TYPE CODE TESTS RESULT OUT OF [...] Test performed by chemiluminescent immunoassay using [employer]. Performed By: #### FK506 #### [facility] [address], [place] [address] GC/CHLAMYDIA AMPLIF Collected: 02/04/2018 Status: F Source: [place] 5:06 PM [facility] REPOSITORY TYPE CODE TESTS RESULT OUT OF REFERENCE UNITS RANGE LAB GCCTSR GC/Chlam Amp [facility] Source LAB GCAMPL GC Negative Amplification for Neisseria gonorrhoeae by amplification. LAB CLAMPL Chlamydia Negative Amplif for Chlamydia trachomatis by amplification. Performed By: #### GCCT #### [facility] [address] [place], [place] [address] PROGRESS Observed: 02/04/2018 Status: COMPLETED Source: [place] 2:35 PM [facility] REPOSITORY HNO ID: [id number] Author: Emir Fowler Service: (none) Author Type: [...] IUD source: office provided IUD lot #: [id number] Exp date: 06/2020 UNIVERSAL PROTOCOL / SAFETY [...] DO CNOV Observed: 02/04/2018 Status: COMPLETED Source: [place] 2:30 PM [facility] REPOSITORY Office Visit (WOOB) VAL VALVERDE ([id number]) 1970 F TRN Date Time Provider Department [...] IUD source: office provided IUD lot #: [id number] Exp date: 06/2020 UNIVERSAL PROTOCOL / SAFETY [...] Modules accepted: Orders Referring Provider: KERI ADAME ([facility]) [[id number]] Allergies As of Date: 02/04/2018 Noted Allergy [...] for IUD removal [Z30.432] Order(s):INSERT INTRAUTERINE DEVICE [[id number]] Order #: [id number] [] levonorgestrel 20 mcg/24 hr (5 years) 1 Each intrauterine device (MIRENA)Disp: Rfl: GC/CHLAMYDIA DNA DET [SQGCCAMP] Order #: [id number] Prescriptions as of 02/04/2018 Sig: SOYUAA-IBBXFXFM-ULPIUVA 12,00* Take by mouth three times raad* [...] ulcer disease with hemorrhage [K27.4] INVALID FOR*12/30/2016 Etauj-to-kjxwyha kidney injury (HCC) [N17.9, N1*INVALID FOR*12/30/2016 More... [...] 02/04/18 CNOV Observed: 01/30/2018 Status: COMPLETED Source: [place] 3:40 PM [facility] REPOSITORY Office Visit (GASTA5) VAL VALVREDE ([id number]) 1970 F [facility] Date Time Provider Department 01/30/18 3:40 [...] Barajas for weight loss. Originally, she was from?[facility] and was adopted?by a family in [...] give her diarrhea. She had also tried [place] [employer], but while she had it [...] reported that she had been away in [place] for 3 weeks and thought that she [...] is in the HPI. Current Outpatient Prescriptions: gyhybu-hmhzvksy-wlpngmb (CREON 12) 12,000-38,000 -60,000 unit cpDR Take [...] REVIEWED DATA 11/07/2015 (Dr. Jacob Belcher / [facility]) EGD. Findings: ?The examined esophagus [...] HSV inclusions. 05/30/2016 (Dr. Andrey Barajas / [facility]) EGD. 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 Andrey Barajas / [facility]) EGD. Findings: Localized candidiasis was [...] Andrey Barajas AND Dr. Wilma Jones / [facility]) EGD. Findings: The examined esophagus [...] Helicobacter pylori. 11/01/2016 (Dr. Sahil Kurtz / [facility]) EGD. Findings: No gross lesions [...] examined jejunal lumen appeared grossly normal. 11/17/2016 ([facility] / LAB) Gastric remnant, Biopsies ? Acute and Chronic gastritis. Immunohistochemical stain for Helicobacter pylori is negative for organisms. Comment: There are no cytologic features of CMV infection identified. This was evaluated using a laboratory developed test. 12/20/2016 (Dr. Prabhu Dahl AND Dr. Delano Segovia / [facility]) EGD. Findings: The examined esophagus was normal. Evidence of a Layne-en-Y gastrojejunostomy was found. This was not traversed. The uhqgs-ih-vatxxhd limb was characterized by ulceration with a [...] appeared intact. 12/21/2016 (Dr. Ruby Hernández / [facility]) EGD. Findings: The examined esophagus [...] lesion seen. 12/22/2016 (Dr. Jacob Cruz / [facility]) EGD. Findings: The examined esophagus [...] 39 cm. 12/25/2016 (Dr. Ruby Hernández / [facility]) EGD. Findings: The examined esophagus [...] stained sections. 02/19/2017 (Dr. Raman Almeida / [facility]) EGD. Findings: There is no [...] HPI: This is a 46-year-old woman from [facility] who was adopted into a family [...] - 20.0 ng/mL ? 5.9 ? Hemoglobin, [place] 11.5 - 15.5 g/dL ? ? 9.8 (L) Hematocrit, [place] 36.0 - 46.0 % ? ? 31.0 [...] - 4.00 k/uL 0.58 (L) ? ? Gilchrist% % 2.9 ? ? Abs Gilchrist <0.87 k/uL 0.40 ? ? Eosin% % [...] 15.5 g/dL ? ? 10.9 (L) Hematocrit, [place] 36.0 - 46.0 % ? ? 33.5 [...] 13 eGFR-All Other Races . 11 Hemoglobin, [place] 11.5 - 15.5 g/dL 10.6 (L) 8.8 (L) 9.9 (L) 10.2 (L) Hematocrit, [place] 36.0 - 46.0 % 32.9 (L) 27.9 (L) 31.1 (L) 32.0 (L) Web Manager Specimen originated from [facility] . . . Assessment DISCUSSION: We discussed [...] Osteopenia Vitamin B12 deficiency PLAN Patient has?a Pro Breath MD account. Labs as ordered - can get closer to home at a F lab - download to Pro Breath MD Trial of ORS - information and samples of Drip Drop Discussed vitamin B12 injections and that she has 3 mL vials for 1 mL/month and then 3 refills To alter diet - decrease Magalys dedrick and try to increase intake RTC about 8 weeks Letter to Drs. Arvizu, PCP and DAYANNA Damon MD January 30, 2018 Referring Provider: AUSTEN PIERSON [[id number]] Allergies As of Date: 01/30/2018 Noted Allergy [...] [D51.0] Order(s):CBC + DIFF [SQCBCDIF] Order #: [id number] FUTURE COMP METABOLIC PANEL [SQCMP] Order #: [id number] FUTURE MAGNESIUM BLD [SQMG1] Order #: [id number] FUTURE PREALBUMIN BLD [SQPREALB] Order #: [id number] FUTURE Prescriptions as of 01/30/2018 Sig: [id number]-QHYCPYF 12,00* Take by mouth three times raad* [...] ulcer disease with hemorrhage [K27.4] INVALID FOR*12/30/2016 Nyxip-tz-adzkicn kidney injury (HCC) [N17.9, N1*INVALID FOR*12/30/2016 More... [...] [place] HEMATOCRIT Collected: 01/26/2018 Status: F Source: [place] 4:00 PM [facility] REPOSITORY TYPE CODE TESTS RESULT OUT OF REFERENCE UNITS RANGE LAB WHCT 36.0-46.0 % Low [place] Hematocrit 31.9 Result Comment: Test performed at: [facility] [address], [place] [address]. [place] HEMOGLOBIN Collected: 01/26/2018 Status: F Source: [place] 4:00 PM [facility] REPOSITORY TYPE CODE TESTS RESULT OUT OF REFERENCE UNITS RANGE LAB WHGB 11.5-15.5 g/dL Low [place] Hemoglobin 10.3 Result Comment: Test performed at: [facility] [place], [address] [place] [address]. PROGRESS Observed: 01/22/2018 Status: COMPLETED Source: [place] 1:25 PM [facility] REPOSITORY HNO ID: [id number] Author: Austen Pierson Service: (none) Author Type: [...] on a monthly basis. PLAN Patient has?a Affectvhart account. Order Duplex of legs to r/o [...] Barajas for weight loss. Originally, she was from?[facility] and was adopted?by a family in [...] give her diarrhea. She had also tried [employer] [employer], but while she had it [...] reported that she had been away in [place] for 3 weeks and thought that she [...] is in the HPI. Current Outpatient Prescriptions: brlqtd-lcbchlsk-mbzfokf (CREON 12) 12,000-38,000 -60,000 unit cpDR Take [...] REVIEWED DATA 11/07/2015 (Dr. Jacob Belcher / [facility]) EGD. Findings: ?The examined esophagus [...] HSV inclusions. 05/30/2016 (Dr. Andrey Barajas / [facility]) EGD. 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 Andrey Barajas / [facility]) EGD. Findings: Localized candidiasis was [...] Andrey Barajas AND Dr. Wilma Jones / [facility]) EGD. Findings: The examined esophagus [...] Helicobacter pylori. 11/01/2016 (Dr. Sahil Kurtz / [facility]) EGD. Findings: No gross lesions [...] examined jejunal lumen appeared grossly normal. 11/17/2016 ([facility] / LAB) Gastric remnant, Biopsies ? Acute and Chronic gastritis. Immunohistochemical stain for Helicobacter pylori is negative for organisms. Comment: There are no cytologic features of CMV infection identified. This was evaluated using a laboratory developed test. 12/20/2016 (Dr. Prabhu Dahl AND Dr. Delano Segovia / [facility]) EGD. Findings: The examined esophagus was normal. Evidence of a Layne-en-Y gastrojejunostomy was found. This was not traversed. The mjfhl-ll-skgzxcz limb was characterized by ulceration with a [...] appeared intact. 12/21/2016 (Dr. Ruby Hernández / [facility]) EGD. Findings: The examined esophagus [...] lesion seen. 12/22/2016 (Dr. Jacob Cruz / [facility]) EGD. Findings: The examined esophagus [...] 39 cm. 12/25/2016 (Dr. Ruby Hernández / [facility]) EGD. Findings: The examined esophagus [...] stained sections. 02/19/2017 (Dr. Raman Almeida / [facility]) EGD. Findings: There is no [...] HPI: This is a 46-year-old woman from [facility] who was adopted into a family [...] inclusions present. She was seen by Dr. Sivla of Infectious Disease for treatment of the [...] - 20.0 ng/mL ? 5.9 ? Hemoglobin, [place] 11.5 - 15.5 g/dL ? ? 9.8 [...] - 4.00 k/uL 0.58 (L) ? ? Gilchrist% % 2.9 ? ? Abs Gilchrist <0.87 k/uL 0.40 ? ? Eosin% % [...] 13 eGFR-All Other Races . 11 Hemoglobin, [place] 11.5 - 15.5 g/dL 10.6 (L) 8.8 (L) 9.9 (L) 10.2 (L) Hematocrit, [place] 36.0 - 46.0 % 32.9 (L) 27.9 (L) 31.1 (L) 32.0 (L) Web Manager Specimen originated from [facility] . . . Assessment DISCUSSION: We discussed [...] Osteopenia Vitamin B12 deficiency PLAN Patient has?a Pro Breath MD account. Labs as ordered - can get closer to home at a [facility] lab - download to Pro Breath MD Trial of ORS - information and samples [...] [place] HEMATOCRIT Collected: 01/12/2018 Status: F Source: [place] 11:06 AM [facility] REPOSITORY TYPE CODE TESTS RESULT OUT OF REFERENCE UNITS RANGE LAB WHCT 36.0-46.0 % Low [place] Hematocrit 32.0 Result Comment: Test performed at: [facility], [address] [place] [address] Rd[address] [place] [address]. [place] HEMOGLOBIN Collected: 01/12/2018 Status: F Source: [place] 11:06 AM [facility] REPOSITORY TYPE CODE TESTS RESULT OUT OF REFERENCE UNITS RANGE LAB WHGB 11.5-15.5 g/dL Low [place] Hemoglobin 10.2 Result Comment: Test performed at: [facility], [address] [place] [address] Rd[address] [place] [address]. PROGRESS Observed: 01/06/2018 Status: COMPLETED Source: [place] 12:21 PM [facility] REPOSITORY HNO ID: [id number] Author: Asia Wesley) Chad Service: (none) Author Type: Physician [employer] Boat Assembly Supervisor Type: Progress Notes Filed: 01/06/2018 12:24 PM Note Text: Results were negative for high-risk HPV as noted below. Note results had gone to [facility] causing delay in receiving/reviewing results. PROCEDURE(S) CISH HPV LOW RISK ? Date Ordered: ?10/14/2017 ? ? ? Date Reported: ?10/16/2017 Procedure Results and Interpretation At request of the clinician, chromogenic in situ hybridization (CISH) studies for high risk HPV were obtained on case [id number]. The results of HPV CISH testing [...] LOWER NAEL Observed: 12/30/2017 Status: F Source: [place] 6:58 PM [facility] [...] the knee due to swelling and edema Family Medicine Physician Assistant: NELIA Transcribe Date/Time: Dec 30 2017 5:13P Dictated by : EFFIE RODRIGUEZ MD This examination was interpreted and the report reviewed and electronically signed by: EFFIE RODRIGUEZ MD on Dec 30 2017 5:14PM EST [id number] [place] HEMATOCRIT Collected: 12/29/2017 Status: F Source: [place] 12:46 PM [facility] REPOSITORY TYPE CODE TESTS RESULT OUT OF REFERENCE UNITS RANGE LAB WHCT 36.0-46.0 % Low [place] Hematocrit 31.1 Result Comment: Test performed at: [facility] [place], [address] [place] [address]. [place] HEMOGLOBIN Collected: 12/29/2017 Status: F Source: [place] 12:46 PM [facility] REPOSITORY TYPE CODE TESTS RESULT OUT OF REFERENCE UNITS RANGE LAB WHGB 11.5-15.5 g/dL Low [place] Hemoglobin 9.9 Result Comment: Test performed at: [facility] [place], [address] [place] [address]. PROGRESS Observed: 12/23/2017 Status: COMPLETED Source: [place] 2:26 PM [facility] REPOSITORY HNO ID: [id number] Author: Bryan Ruggiero (Dayanna) Hanane Service: (none) [...] hydrated but struggles with this. RICKY at [facility], last 12/15/17 Aranesp 60mcg Average BP [...] Lymph 1.00 - 4.00 k/uL 0.58 (L) Gilchrist% % 2.9 Abs Gilchrist <0.87 k/uL 0.40 Eosin% % 0.3 Abs [...] by PCR Folate >4.7 ng/mL >20.0 Hemoglobin, [place] 11.5 - 15.5 g/dL 8.8 (L) Hematocrit, [...] findings Will d/w Dr. Yoseph Koo, RN APPEALS MANAGER.LOAN SECRETARY I spent 25 minutes in the visit, with more than 50% of the total hpmd-oi-njgv time of the visit in counseling / coordination of care. CNOV Observed: 12/23/2017 Status: COMPLETED Source: [place] 1:50 PM [facility] REPOSITORY Office Visit (NEPHMN) VAL VALVERDE ([id number]) 1970 F TRN Date Time Provider Department 12/23/17 1:50 PM BRYAN KOO (DAYANNA) NEPHMN During your visit today, we recorded the following information about you: Temperature Pulse Blood pressure Weight 95.9 degrees 74/minute 135/87 34.1 kg Height 1.499 m Bryan Koo RN APPEALS MANAGER.LOAN SECRETARY 02/18/2018 3:44 PM Addendum Patient presents for [...] hydrated but struggles with this. RICKY at [facility], last 12/15/17 Aranesp 60mcg Average BP [...] Lymph 1.00 - 4.00 k/uL 0.58 (L) Gilchrist% % 2.9 Abs Gilchrist <0.87 k/uL 0.40 Eosin% % 0.3 Abs [...] by PCR Folate >4.7 ng/mL >20.0 Hemoglobin, [place] 11.5 - 15.5 g/dL 8.8 (L) Hematocrit, [place] 36.0 - 46.0 % 27.9 (L) PHYSICAL [...] will watch for now -Anemia-on RICKY at [place], hgb 8.8 Chronic thrombocytopenia -Reduced PO Intake/Malnutrition/Wt loss -Hx of pancreatitis PLAN: Continue present management Watch dietary intake in take of sodium Avoid NSAIDS and contrast exposure Await final EGD findings Will d/w Dr. Yoseph Koo, RN APPEALS MANAGER.LOAN SECRETARY I spent 25 minutes in the visit, with more than 50% of the total ucup-qf-drpl time of the visit in counseling / coordination of care. Referring Provider: BRYAN KOO (LOAN SECRETARY) [[id number]] Allergies As of Date: 12/23/2017 Noted Allergy [...] [B37.81] Order(s):UA CHEMSTRIP ONLY [SQUA] Order #: [id number] FUTURE UA CHEMSTRIP ONLY [SQUA] Order #: [id number]. #:[id number] Calcium Citrate-Vitamin D2 1,500-200 mg-unit tabTake 1 [...] ulcer disease with hemorrhage [K27.4] INVALID FOR*12/30/2016 Oilej-bz-qeuwvqk kidney injury (HCC) [N17.9, N1*INVALID FOR*12/30/2016 More... [...] Reason for discontinue is not on file. otppos-ylhyacrx-gvjgfjb (CREON) 12,0* 90 c* 11 03/27/2017 12/23/2017 [...] 01/16/18 URINALYSIS Collected: 12/23/2017 Status: F Source: [place] 12:06 PM [facility] REPOSITORY TYPE CODE TESTS RESULT OUT OF RANGE REFERENCE UNITS LAB UCOL Yellow Color Yellow LAB [facility] Clear Clarity Clear LAB UGLUC Negative mg/dL Glucose, Urine Negative LAB UBIL Negative Bilirubin, Urine Negative LAB UKET Negative Ketones, Urine Negative LAB USPG 1.005-1.030 Specific [place], Ur 1.012 LAB UHGB Negative Hemoglobin/Blood, Negative Ur LAB UPH 4.5-8.0 pH 5.5 LAB UPROT Negative mg/dL Protein, Abnormal Urine 30 Alert LAB UUROB Normal Urobilinogen Normal LAB UNITR Negative Nitrites Negative LAB ULKEST Negative Leukest Negative LAB UCOM Comments SEE COMMENT Result Comment: Microscopic not warranted LAB UMCOM Urine SEE Louie Comment COMMENT Result Comment: N/A Performed By: #### UA #### [facility] [address] [place] [id number] SURGICAL PATHOLOGY Observed: 12/23/2017 Status: F Source: [place] 10:23 AM [facility] [place] REPOSITORY Specimen originated from [facility] Specimen #: [id number] Submitting Physician: ANDREY BARAJAS MD FINAL DIAGNOSIS [...] in one cassette. Gross examination performed at [facility], [address] [place] [address] FFS 12/23/2017 6:10:40 PM Date of Report: 12/24/2017 Date of Procedure: 12/23/2017 Date of Receipt: 12/23/2017 Submitted by: ANDREY BARAJAS MD Location: [place] [address] Diagnostic interpretation performed at [place] [address]. TACROLIMUS / [id number] Collected: 12/22/2017 Status: F Source: [place] 12:45 PM [facility] [place] REPOSITORY TYPE CODE TESTS RESULT OUT OF [...] situation. Test performed by chemiluminescent immunoassay using [employer]. Performed By: #### [id number] #### [place] [address] COMP METABOLIC PANEL Collected: 12/22/2017 Status: F Source: [place] 12:45 PM [facility] REPOSITORY TYPE CODE TESTS [...] mg/dL Glucose High 118 Result Comment: The [place] Diabetes Association (ADA) provides guidance for cutoff [...] Standards of Medical Care in Diabetes 2016, [place] Diabetes Association. Diabetes Care. 2016.39(Suppl 1). LAB [...] actual GFR. Performed By: #### CMP #### [facility] [address] [place], [place] [address] PROGRESS Observed: 12/17/2017 Status: COMPLETED Source: [place] 9:44 AM [facility] REPOSITORY HNO ID: [id number] Author: Austen Pierson Service: (none) Author Type: Physician Type: Progress Notes Filed: 12/17/2017 9:45 AM Note Text: Correct order placed - please help her to get this scheduled. Austen Pierosn MD December 17, 2017 [place] HEMATOCRIT Collected: 12/15/2017 Status: F Source: [place] 11:08 AM [facility] REPOSITORY TYPE CODE TESTS RESULT OUT OF REFERENCE UNITS RANGE LAB WHCT 36.0-46.0 % Low [place] Hematocrit 27.9 Result Comment: Test performed at: [address], [place] [address]. [place] HEMOGLOBIN Collected: 12/15/2017 Status: F Source: [place] 11:08 AM [facility] REPOSITORY TYPE CODE TESTS RESULT OUT OF REFERENCE UNITS RANGE LAB WHGB 11.5-15.5 g/dL Low [place] Hemoglobin 8.8 Result Comment: Test performed at: [address], [place] [address]. CNOV Observed: 12/11/2017 Status: COMPLETED Source: [place] 4:10 PM [facility] REPOSITORY Office Visit (GASTA5) VAL VALVERDE ([id number]) 1970 F TRN Date Time Provider Department [...] the OWYN Supplements or going back to [place] [employer] with [place] [employer]. We also discussed tube feeding and/or [...] her return visit. PLAN Patient has a Pro Breath MD account. Labs as ordered - download to Pro Breath MD To alter diet - Magalys dedrick and [...] for weight loss. Originally, she was from [facility] and was adopted by a family [...] give her diarrhea. She had also tried [place] [employer], but while she had it in the house, she would usually forget that she had it and would choose the Magalys Dedrick instead. She stated that she had a past history of pancreatitis and had been on Creon for a long time. She had come for help with her weight. Today she states that she has been away in [place] for 3 weeks and thought that she [...] once daily. Disp: 90 tablet Rfl: 3 okhmnm-ndrdgycm-gynjvfq (CREON) 12,000-38,000 -60,000 unit cpDR Take 1 [...] REVIEWED DATA 11/07/2015 (Dr. Jacob Belcher / [facility]) EGD. Findings: The examined esophagus [...] HSV inclusions. 05/30/2016 (Dr. Andrey Barajas / [facility]) EGD. Findings: The esophagus was [...] Andrey Barajas AND Dr. Wilma Jones / [facility]) EGD. Findings: The examined esophagus [...] Helicobacter pylori. 11/01/2016 (Dr. Sahil Kurtz / [facility]) EGD. Findings: No gross lesions [...] examined jejunal lumen appeared grossly normal. 11/17/2016 ([facility] / LAB) Gastric remnant, Biopsies ? Acute and Chronic gastritis. Immunohistochemical stain for Helicobacter pylori is negative for organisms. Comment: There are no cytologic features of CMV infection identified. This was evaluated using a laboratory developed test. 12/20/2016 (Dr. Prabhu Dahl AND Dr. Delano Segovia / [facility]) EGD. Findings: The examined esophagus was normal. Evidence of a Layne-en-Y gastrojejunostomy was found. This was not traversed. The wskje-xt-rqpubzo limb was characterized by ulceration with a [...] appeared intact. 12/21/2016 (Dr. Ruby Hernández / [facility]) EGD. Findings: The examined esophagus [...] lesion seen. 12/22/2016 (Dr. Jacob Cruz / [facility]) EGD. Findings: The examined esophagus [...] 39 cm. 12/25/2016 (Dr. Ruby Hernández / [facility]) EGD. Findings: The examined esophagus [...] stained sections. 02/19/2017 (Dr. Raman Almeida / [facility]) EGD. Findings: There is no [...] HPI: This is a 46-year-old woman from [facility] who was adopted into a family [...] Lymph 1.00 - 4.00 k/uL 0.58 (L) Gilchrist% % 2.9 Abs [place] <0.87 k/uL 0.40 Eosin% % 0.3 Abs [...] 11.5 - 15.5 g/dL 10.9 (L) Hematocrit, [place] 36.0 - 46.0 % 33.5 (L) Assessment [...] December 11, 2017 Referring Provider: AUSTEN PIERSON [[id number]] Allergies As of Date: 12/11/2017 Noted Allergy [...] deficiency [D51.0] Order(s):DUPLEX DVT VEIN NAEL HC/MM [0096950] Order #: [id number]: 1 cyanocobalamin 1,000 mcg/mL solnInject 1 mL [...] Take 1 tablet by mouth once d* XTHTAO-UWMSWLZE-XVBLHSN 12,00* Take 1 capsule by mouth three* [...] ulcer disease with hemorrhage [K27.4] INVALID FOR*12/30/2016 Uwuqd-de-avavhuu kidney injury (HCC) [N17.9, N1*INVALID FOR*12/30/2016 More... [...] 12/11/17 PROGRESS Observed: 12/05/2017 Status: COMPLETED Source: [place] 7:20 AM [facility] REPOSITORY HNO ID: [id number] Author: Austen Pierson Service: (none) Author Type: [...] the OWYN Supplements or going back to [employer] [employer] with [place] [employer]. We also discussed tube feeding and/or [...] her return visit. PLAN Patient has a Pro Breath MD account. Labs as ordered - download to Pro Breath MD To alter diet - Magalys dedrick and [...] for weight loss. Originally, she was from [facility] and was adopted by a family [...] give her diarrhea. She had also tried [employer] [employer], but while she had it in the house, she would usually forget that she had it and would choose the Magalys Dedrick instead. She stated that she had a past history of pancreatitis and had been on Creon for a long time. She had come for help with her weight. Today she states that she has been away in [place] for 3 weeks and thought that she [...] once daily. Disp: 90 tablet Rfl: 3 sqdvus-ifeaqixs-tqbonft (CREON) 12,000-38,000 -60,000 unit cpDR Take 1 [...] REVIEWED DATA 11/07/2015 (Dr. Jacob Belcher / [facility]) EGD. Findings: The examined esophagus [...] HSV inclusions. 05/30/2016 (Dr. Andrey Barajas / [facility]) EGD. 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 Andrey Barajas / [facility]) EGD. Findings: Localized candidiasis was [...] Andrey Barajas AND Dr. Wilma Jones / [facility]) EGD. Findings: The examined esophagus [...] Helicobacter pylori. 11/01/2016 (Dr. Sahil Kurtz / [facility]) EGD. Findings: No gross lesions [...] examined jejunal lumen appeared grossly normal. 11/17/2016 ([facility] / LAB) Gastric remnant, Biopsies ? Acute and Chronic gastritis. Immunohistochemical stain for Helicobacter pylori is negative for organisms. Comment: There are no cytologic features of CMV infection identified. This was evaluated using a laboratory developed test. 12/20/2016 (Dr. Prabhu Dahl AND Dr. Delano Segovia / [facility]) EGD. Findings: The examined esophagus was normal. Evidence of a Layne-en-Y gastrojejunostomy was found. This was not traversed. The fcqdf-fe-coghtle limb was characterized by ulceration with a [...] appeared intact. 12/21/2016 (Dr. Ruby Hernández / [facility]) EGD. Findings: The examined esophagus [...] lesion seen. 12/22/2016 (Dr. Jacob Cruz / [facility]) EGD. Findings: The examined esophagus [...] 39 cm. 12/25/2016 (Dr. Ruby Hernández / [facility]) EGD. Findings: The examined esophagus [...] stained sections. 02/19/2017 (Dr. Raman Almeida / [facility]) EGD. Findings: There is no [...] HPI: This is a 46-year-old woman from [facility] who was adopted into a family [...] Lymph 1.00 - 4.00 k/uL 0.58 (L) Gil[place]% % 2.9 Abs [place] <0.87 k/uL 0.40 Eosin% % 0.3 Abs [...] 0.30 - 1.20 mg/L 1.36 (H) Hemoglobin, [place] 11.5 - 15.5 g/dL 10.9 (L) Hematocrit, [place] 36.0 - 46.0 % 33.5 (L) Assessment [...] [place] HEMATOCRIT Collected: 11/17/2017 Status: F Source: [place] 11:40 AM [facility] REPOSITORY TYPE CODE TESTS RESULT OUT OF REFERENCE UNITS RANGE LAB WHCT 36.0-46.0 % Low [place] Hematocrit 32.9 Result Comment: Test performed at: [facility], [address] [place] [address] Rd., [place] [address]. [place] HEMOGLOBIN Collected: 11/17/2017 Status: F Source: [place] 11:40 AM [facility] REPOSITORY TYPE CODE TESTS RESULT OUT OF REFERENCE UNITS RANGE LAB WHGB 11.5-15.5 g/dL Low [place] Hemoglobin 10.6 Result Comment: Test performed at: [facility], [address] [place] [address] Rd[address] [place] [address]. COMP METABOLIC PANEL Collected: 11/12/2017 Status: F Source: [place] 12:40 PM [facility] REPOSITORY TYPE CODE TESTS [...] mg/dL Glucose High 102 Result Comment: The [place] Diabetes Association (ADA) provides guidance for cutoff [...] Standards of Medical Care in Diabetes 2016, [place] Diabetes Association. Diabetes Care. 2016.39(Suppl 1). LAB [...] actual GFR. Performed By: #### CMP #### [facility] [address] [place], [place] [address] RENAL FUNCTION PANEL Collected: 11/12/2017 Status: F Source: [place] 12:40 PM [facility] REPOSITORY TYPE CODE TESTS RESULT OUT OF REFERENCE UNITS RANGE LAB ALB 3.9-4.9 g/dL Low Albumin 3.5 LAB CA 8.5-10.2 mg/dL Low Calcium, Total 8.1 LAB PHOS 2.7-4.8 mg/dL Phosphorus 3.3 LAB GLU 74-99 mg/dL Glucose High 102 Result Comment: The [place] Diabetes Association (ADA) provides guidance for cutoff [...] Standards of Medical Care in Diabetes 2016, [place] Diabetes Association. Diabetes Care. 2016.39(Suppl 1). LAB [...] actual GFR. Performed By: #### RFP #### [facility] [address] [place], [place] [address] TACROLIMUS / [id number] Collected: 11/12/2017 Status: F Source: [place] 12:40 PM [facility] [...] Test performed by chemiluminescent immunoassay using [employer]. Performed By: #### [id number] #### [facility] [address] [place], [place] [address] [place] HEMATOCRIT Collected: 11/03/2017 Status: F Source: [place] 10:49 AM [facility] REPOSITORY TYPE CODE TESTS RESULT OUT OF REFERENCE UNITS RANGE LAB WHCT 36.0-46.0 % Low [place] Hematocrit 33.5 Result Comment: Test performed at: [facility], [address] [place] [address]. [place] HEMOGLOBIN Collected: 11/03/2017 Status: F Source: [place] 10:49 AM [facility] REPOSITORY TYPE CODE TESTS RESULT OUT OF REFERENCE UNITS RANGE LAB WHGB 11.5-15.5 g/dL Low [place] Hemoglobin 10.9 Result Comment: Test performed at: [facility], [address] [place] [address]. PROGRESS Observed: 10/22/2017 Status: COMPLETED Source: [place] 4:42 PM [facility] REPOSITORY HNO ID: [id number] Author: Wil To Service: (none) Author Type: [...] (VITAMIN D3) 50,000 unit cap capsule - tfeqln-otqawfaz-vfuacts (CREON) 12,000-38,000 -60,000 unit cpDR - Calcium [...] MD CNOV Observed: 10/22/2017 Status: COMPLETED Source: [place] 4:20 PM [facility] REPOSITORY Office Visit (INTMWS) VAL VALVERDE ([id number]) 1970 F TRN Date Time Provider Department [...] (VITAMIN D3) 50,000 unit cap capsule - cabexz-xulfkalo-bpfqrxy (CREON) 12,000-38,000 -60,000 unit cpDR - Calcium [...] 477.0, ICD10: J30.1 Asked her to take lewsi. otc Spent 25 mins direct ftf counseling regarding diet and improving her habits of eating. WIL TO MD Referring Provider: WIL TO [[id number]] Allergies As of Date: 10/22/2017 Noted Allergy [...] * Patient not taking: Reported on 10/20/2017 ELJWCK-TLGBEWFS-NJJYCCB 12,00* Take 1 capsule by mouth three* [...] ulcer disease with hemorrhage [K27.4] INVALID FOR*12/30/2016 Utnek-ar-rxnmbse kidney injury (HCC) [N17.9, N1*INVALID FOR*12/30/2016 More... [...] [place] HEMATOCRIT Collected: 10/20/2017 Status: F Source: [place] 2:19 PM [facility] REPOSITORY TYPE CODE TESTS RESULT OUT OF REFERENCE UNITS RANGE LAB WHCT 36.0-46.0 % Low [place] Hematocrit 29.2 Result Comment: Test performed at: [facility] [address] [place] [address]. [place] HEMOGLOBIN Collected: 10/20/2017 Status: F Source: [place] 2:19 PM [facility] REPOSITORY TYPE CODE TESTS RESULT OUT OF REFERENCE UNITS RANGE LAB WHGB 11.5-15.5 g/dL Low [place] Hemoglobin 9.3 Result Comment: Test performed at: [facility] [address] [place] [address]., [place] [address]. SURGICAL PATHOLOGY Observed: 10/14/2017 Status: F Source: [place] 10:10 AM [facility] REPOSITORY PROCEDURE REPORT Specimen originated from [facility] Specimen #: [id number] Submitting Physician: KERI ADAME CNP SPECIMEN SUBMITTED A: 1 BLOCK ([phone]) PROCEDURE(S) CISH HPV LOW RISK Date Ordered: 10/14/2017 Date Reported: 10/16/2017 Procedure Results and Interpretation At request of the clinician, chromogenic in situ hybridization (CISH) studies for high risk HPV were obtained on case [id number]. The results of HPV CISH testing are negative for high risk HPV. Clinical correlation is recommended. Laboratory Developed Test (LDT) Disclaimer: Positive and negative controls stain appropriately. Performance characteristics of immunohistochemical, immunofluorescent and chromogenic in-situ hybridization tests have been determined by [facility] Medicine [place] ([facility]) in a manner consistent with CLIA requirements. One or more of these tests have not been cleared or approved by the FDA. [facility] is regulated under CLIA as qualified to perform high-complexity testing. These tests are used for clinical purposes. They should not be regarded as investigational or for research. JOSE//hood/10/16/17 Procedure Pathologist: Mary Vasquez M.D. Electronic Signature CLINICAL DATA None provided. Date of Report: Date of Procedure: 10/14/2017 Date of Receipt: 10/14/2017 Submitted: KERI ADAME CNP Location: [facility] Diagnostic interpretation performed at [facility], [address] [place] [address]. PROGRESS Observed: 10/09/2017 Status: COMPLETED Source: [place] 3:24 PM [facility] REPOSITORY HNO ID: [id number] Author: Asia Mendoza (Pa) Service: (none) Author Type: Physician [employer] Supervisor Type: Progress Notes Filed: 10/09/2017 3:26 PM Note Text: Discussed w/pathologist who will perform CISH testing to help determine high-risk vs low-risk condyloma, based upon these results will make further follow-up recommendations RENAL FUNCTION PANEL Collected: 10/06/2017 Status: F Source: [place] 2:41 PM [facility] REPOSITORY TYPE CODE TESTS RESULT OUT OF REFERENCE UNITS RANGE LAB ALB 3.9-4.9 g/dL 3.4 Low Albumin LAB CA 8.5-10.2 mg/dL 8.7 Calcium, Total LAB PHOS 2.7-4.8 mg/dL Unable to Phosphorus assay. Specimen significantly hemolyzed. LAB GLU 74-99 mg/dL 116 High Glucose Result Comment: The [place] Diabetes Association (ADA) provides guidance for cutoff [...] Standards of Medical Care in Diabetes 2016, [place] Diabetes Association. Diabetes Care. 2016.39(Suppl 1). LAB [...] actual GFR. Performed By: #### RFP #### [facility] [address] [phone] TACROLIMUS / [id number] Collected: 10/06/2017 Status: F Source: [place] 2:41 PM [facility] REPOSITORY TYPE CODE TESTS [...] situation. Test performed by chemiluminescent immunoassay using [employer]. Performed By: #### FK506 #### [place] [address] [place] [address] BK VIRUS PCR,QUANT,P Collected: 10/06/2017 Status: F Source: [place] 2:41 [facility] REPOSITORY TYPE CODE TESTS RESULT OUT OF REFERENCE UNITS RANGE LAB BKVDNA copies/mL BK Negative for Virus DNA BK virus DNA QN PCR by PCR Result Comment: Reference Range: Negative for BK virus DNA The Linear Range of this assay is 500 copies/mL to 5,000,000 copies/mL. This test was developed and its performance characteristics determined by [facility]'s [facility] Pathology and Laboratory Medicine [place] ([facility]). It has not been cleared or approved by the FDA. [facility] is regulated under CLIA as qualified to perform high-complexity testing. This test is used for clinical purposes. It should not be regarded as investigational or for research. Performed By: #### BKQUAN #### [facility] [place] [address] MISC SEND OUT TEST Collected: 10/06/2017 Status: F Source: [place] 2:40 PM [facility] REPOSITORY TYPE CODE TESTS RESULT OUT OF REFERENCE UNITS RANGE LAB NAME1 CYTOMEGALOVIRUS Test GENOTYPE LAB RESU1 View results in Test Scanned Documents Results link when available. Performed By: #### [id number] #### [facility] [place] [address] PROTIME Collected: 10/06/2017 Status: F Source: [place] 2:39 PM [facility] REPOSITORY TYPE CODE TESTS RESULT OUT OF RANGE REFERENCE UNITS LAB PSEC 9.7-13.0 sec Low PT Sec 9.4 Result Comment: Result rechecked. LAB INR 0.9-1.3 Low PT INR <0.9 Result Comment: Vitamin K Antagonist (VKA) Therapeutic Range: INR 2 to 3 (Target INR of 2.5) Note: For patients treated with VKA drugs, such as warfarin, the [place] College of Chest Physicians 2012 Guideline recommends [...] Chest 2012, 141:7S-47S Jin RA, et al. [facility] 2017, 70: 252-289 Result rechecked. Sample checked for a clot. Performed By: #### PT, PREALB, B12, SERFOL, CBCDIF, FERR, CMP, MG1, IRON, VITD, TUYET, MMA #### [facility] [address] [place] [address] #### VITB6, B1VIT #### [facility] [address] [place] [address] [phone] PREALBUMIN Collected: 10/06/2017 Status: F Source: [place] 2:39 PM [facility] REPOSITORY TYPE CODE TESTS RESULT OUT OF REFERENCE UNITS RANGE LAB PREALB 17-36 mg/dL Prealbumin 34 Performed By: #### PT, PREALB, B12, SERFOL, CBCDIF, FERR, CMP, MG1, IRON, VITD, TUYET, MMA #### [facility] [address] [phone] #### VITB6, B1VIT #### [facility] [address] [place] [address] [phone] VITAMIN B12 Collected: 10/06/2017 Status: F Source: [place] 2:39 PM [facility] REPOSITORY TYPE CODE TESTS RESULT OUT OF REFERENCE UNITS RANGE LAB B12 232-1245 pg/mL Vitamin B12 1238 Performed By: #### PT, PREALB, B12, SERFOL, CBCDIF, FERR, CMP, MG1, IRON, VITD, TUYET, MMA #### [place] [address] [place] [phone] #### VITB6, B1VIT #### [facility] [address] [place] [address] [phone] FOLATE, SERUM Collected: 10/06/2017 Status: F Source: [place] 2:39 PM [facility] REPOSITORY TYPE CODE TESTS [...] III (Folate III) [package insert V 1.0 Swedish]. [facility], [place], [place]: March 2015. Performed By: #### PT, PREALB, B12, SERFOL, CBCDIF, FERR, CMP, MG1, IRON, VITD, TUYET, MMA #### [place] [address] [place] [phone] #### VITB6, B1VIT #### [facility] [address] [place] [address] [phone] CBC AND DIFFERENTIAL Collected: 10/06/2017 Status: F Source: [place] 2:39 PM [facility] REPOSITORY TYPE CODE TESTS [...] Low Abs Lymph 0.58 LAB AMONO % Gilchrist% 2.9 LAB AAMONO <0.87 k/uL Abs Gilchrist 0.40 LAB AEOS % Eosin% 0.3 LAB [...] CMP, MG1, IRON, VITD, TUYET, MMA #### [facility] [address] [place], [place] [address] #### VITB6, B1VIT #### [email or web address] [address] [place] [address] [phone] FERRITIN Collected: 10/06/2017 Status: F Source: [place] 2:39 PM [facility] [place] REPOSITORY TYPE CODE TESTS RESULT OUT OF REFERENCE UNITS RANGE LAB FERR 14.7-205.1 ng/mL High Ferritin 1357.0 Performed By: #### PT, PREALB, B12, SERFOL, CBCDIF, FERR, CMP, MG1, IRON, VITD, TUYET, MMA #### [facility] [address] [place], [place] [address] #### VITB6, B1VIT #### [facility] [address] [place] [address] [phone] COMP METABOLIC PANEL Collected: 10/06/2017 Status: F Source: [place] 2:39 PM [facility] [...] mg/dL High Glucose 113 Result Comment: The [place] Diabetes Association (ADA) provides guidance for cutoff [...] Standards of Medical Care in Diabetes 2016, [place] Diabetes Association. Diabetes Care. 2016.39(Suppl 1). LAB [...] has been calibrated to be traceable to IDCO. An eGFR <60 mL/min/1.73m2 for >3 months is consistent with chronic kidney disease. Refer to KDOQI guidelines for clinical interpretation. In patients with unstable renal function, e.g. those with acute kidney injury, the eGFR may not accurately reflect actual GFR. Performed By: #### PT, PREALB, B12, SERFOL, CBCDIF, FERR, CMP, MG1, IRON, VITD, TUYET, MMA #### [place] [address] [place] [phone] #### VITB6, B1VIT #### [facility] [address] [place] [address] [phone] MAGNESIUM Collected: 10/06/2017 Status: F Source: [place] 2:39 [facility] REPOSITORY TYPE CODE TESTS RESULT OUT OF REFERENCE UNITS RANGE LAB MG 1.7-2.3 mg/dL Magnesium 2.2 Performed By: #### PT, PREALB, B12, SERFOL, CBCDIF, FERR, CMP, MG1, IRON, VITD, TUYET, MMA #### [place] [phone] #### VITB6, B1VIT #### [facility] [address] [address] [phone] IRON AND TIBC Collected: 10/06/2017 Status: F Source: [place] 2:39 [facility] REPOSITORY TYPE CODE TESTS RESULT OUT OF REFERENCE UNITS RANGE LAB IRN 41-186 ug/dL Iron 65 LAB TIBC 232-386 ug/dL TIBC 237 LAB SAT 15-57 % Transferrin Saturatn 27 Performed By: #### PT, PREALB, B12, SERFOL, CBCDIF, FERR, CMP, MG1, IRON, VITD, TUYET, MMA #### [place] [address] [place] [phone] #### VITB6, B1VIT #### [facility] [address] [place] [address] [phone] VITAMIN D 25 HYDROXY Collected: 10/06/2017 Status: F Source: [place] 2:39 [facility] REPOSITORY TYPE CODE TESTS RESULT OUT [...] CMP, MG1, IRON, VITD, TUYET, MMA #### [facility] [address] [phone] #### VITB6, B1VIT #### [address] [address] [phone] VITAMIN A Collected: 10/06/2017 Status: F Source: [place] 2:39 [facility] REPOSITORY TYPE CODE TESTS RESULT OUT OF REFERENCE UNITS RANGE LAB TUYET 0.30-1.20 mg/L High Vitamin A 1.36 Result Comment: This test was developed and its performance characteristics determined by [facility]'s [facility] Pathology and Laboratory Medicine [place] ([facility]). It has not been cleared or approved by the FDA. [facility] is regulated under CLIA as qualified to perform high-complexity testing. This test is used for clinical purposes. It should not be regarded as investigational or for research. Performed By: #### PT, PREALB, B12, SERFOL, CBCDIF, FERR, CMP, MG1, IRON, VITD, TUYET, MMA #### [place] [address] [place] [phone] #### VITB6, B1VIT #### [facility] [address] [address] [phone] METHYLMALONIC ACID Collected: 10/06/2017 Status: F Source: [place] 2:39 [facility] REPOSITORY TYPE CODE TESTS RESULT OUT OF REFERENCE UNITS RANGE LAB MMA 79-376 nmol/L Methylmalonic High Acid 762 Result Comment: This test was developed and its performance characteristics determined by [facility]'s [facility] Pathology and Laboratory Medicine [place] ([facility]). It has not been cleared or approved by the FDA. [facility] is regulated under CLIA as qualified to perform high-complexity testing. This test is used for clinical purposes. It should not be regarded as investigational or for research. Performed By: #### PT, PREALB, B12, SERFOL, CBCDIF, FERR, CMP, MG1, IRON, VITD, TUYET, MMA #### [facility] [address] [place] [address] #### VITB6, B1VIT #### [facility] [address] [address] [phone] VITAMIN B6 PLASMA Collected: 10/06/2017 Status: F Source: [place] 2:39 PM [facility] REPOSITORY TYPE CODE TESTS RESULT OUT OF REFERENCE UNITS RANGE LAB VITB6 20.0-125.0 nmol/L Vitamin B6 71.4 Plasma Result Comment: (NOTE) INTERPRETIVE INFORMATION: Vitamin B6 (Pyridoxal 5-Phosphate) Pyridoxal 5'-phosphate measured in a specimen collected following an 8-hour or overnight fast accurately indicates vitamin B6 nutritional status. Non-fasting specimen concentration reflects recent vitamin intake. Test developed and characteristics determined by [facility]. See Compliance Statement B: [employer]/ Performed by [facility], [address] [place] [address] [id number] [email or web address], Jeff Cabral MD, Lab. Director Performed By: #### PT, PREALB, B12, SERFOL, CBCDIF, FERR, CMP, MG1, IRON, VITD, TUYET, MMA #### [facility] [address], [place] [address] #### VITB6, B1VIT #### [facility] [address] [id number] [phone] VITAMIN B1,WHOLE BLD Collected: 10/06/2017 Status: F Source: [place] 2:39 PM [facility] REPOSITORY TYPE CODE TESTS [...] measured. Test developed and characteristics determined by [facility]. See Compliance Statement B: [employer] Performed by [facility], [address] [place] [address] [email or web address], Jeff Cabral MD, Lab. Director Performed By: #### PT, PREALB, B12, SERFOL, CBCDIF, FERR, CMP, MG1, IRON, VITD, TUYET, MMA #### [facility] [address] [place], [place] [address] #### VITB6, B1VIT #### [facility] [address] [place] [address] [phone] CNOV Observed: 10/06/2017 Status: COMPLETED Source: [place] 12:40 PM [facility] REPOSITORY Office Visit (GASTA5) VAL VALVERDE ([id number]) 1970 F TRN Date Time Provider Department [...] for weight loss. Originally, she was from [place] and was adopted by a family [...] then gives her diarrhea. She has tried [employer] [employer], but while she has it [...] children: 0 Occupational History Occupation Employer Comment [employer] Social History Main Topics Smoking status: Former [...] History Narrative , no children Works at [employer] Occupation: on disability FAMILY HISTORY Has [...] D DEFICIENCY Disp: 12 capsule Rfl: 1 qultvb-zpeoikdy-zlaxwzf (CREON) 12,000-38,000 -60,000 unit cpDR Take 1 [...] RECORDS REVIEWED 11/07/2015 (Dr. Jacob Belcher / [facility]) EGD. Findings: The examined esophagus [...] HSV inclusions. 05/30/2016 (Dr. Andrey Barajas / [facility]) EGD. 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 Andrey Barajas / [facility]) EGD. Findings: Localized candidiasis was [...] Andrey Barajas AND Dr. Wilma Jones / [facility]) EGD. Findings: The examined esophagus [...] Helicobacter pylori. 11/01/2016 (Dr. Sahil Kurtz / [facility]) EGD. Findings: No gross lesions [...] examined jejunal lumen appeared grossly normal. 11/17/2016 ([facility] / LAB) Gastric remnant, Biopsies ? Acute and Chronic gastritis. Immunohistochemical stain for Helicobacter pylori is negative for organisms. Comment: There are no cytologic features of CMV infection identified. This was evaluated using a laboratory developed test. 12/20/2016 (Dr. Prabhu Dahl AND Dr. Delano Segovia / [facility]) EGD. Findings: The examined esophagus was normal. Evidence of a Layne-en-Y gastrojejunostomy was found. This was not traversed. The mhmgu-bg-ogovafp limb was characterized by ulceration with a [...] appeared intact. 12/21/2016 (Dr. Ruby Hernández / [facility]) EGD. Findings: The examined esophagus [...] lesion seen. 12/22/2016 (Dr. Jacob Cruz / [facility]) EGD. Findings: The examined esophagus [...] 39 cm. 12/25/2016 (Dr. Ruby Hernández / [facility]) EGD. Findings: The examined esophagus [...] stained sections. 02/19/2017 (Dr. Raman Almeida / [facility]) EGD. Findings: There is no [...] HPI: This is a 46-year-old woman from [place] who was adopted into a family [...] Tacrolimus/FK506 5.0 - 20.0 ng/mL 5.9 Hemoglobin, [place] 11.5 - 15.5 g/dL 9.8 (L) Hematocrit, [...] the OWYN Supplements or going back to [employer] [employer] with [place] [employer]. We also discussed tube feeding and/or [...] Kidney transplant Osteopenia PLAN Patient has a [employer] [facility] account. Labs as ordered - download to [employer] [facility] To alter diet - Magalys dedrick and [...] or something similar Referring Provider: ANDREY BARAJAS [[id number]] Allergies As of Date: 10/06/2017 Noted Allergy [...] [M85.80] Order(s):CBC + DIFF [SQCBCDIF] Order #: [id number] FUTURE COMP METABOLIC PANEL [SQCMP] Order #: [id number] FUTURE FERRITIN BLD [SQFERR] Order #: [id number] FUTURE FOLATE SERUM [SQSERFOL] Order #: [id number] FUTURE IRON + TIBC [SQIRON] Order #: [id number] FUTURE MAGNESIUM BLD [SQMG1] Order #: [id number] FUTURE METHYLMALONIC ACID [SQMMA] Order #: [id number] FUTURE PREALBUMIN BLD [SQPREALB] Order #: [id number] FUTURE PROTHROMBIN TIME/PT [SQPT] Order #: [id number] FUTURE VITAMIN D 25 HYDROXY [SQVITD] Order #: [id number] FUTURE VITAMIN B6/PYRIDOXIN [SQVITB6] Order #: [id number] FUTURE VITAMIN B12 BLOOD [SQB12] Order #: [id number] FUTURE VITAMIN B1/THIAMINE, WHOLE BLD [ZWS8JUI] Order #: [id number] FUTURE VITAMIN A/RETINOL [SQVITA] Order #: [id number] FUTURE Prescriptions as of 10/06/2017 Sig: BIOTIN [...] Take 1 capsule by mouth once * BFBIWK-JXWTNHBJ-KEYGDMP 12,00* Take 1 capsule by mouth three* [...] ulcer disease with hemorrhage [K27.4] INVALID FOR*12/30/2016 Syzix-mb-fooavyh kidney injury (HCC) [N17.9, N1*INVALID FOR*12/30/2016 More... [...] [place] HEMATOCRIT Collected: 10/06/2017 Status: F Source: [place] 10:25 AM [facility] REPOSITORY TYPE CODE TESTS RESULT OUT OF REFERENCE UNITS RANGE LAB WHCT 36.0-46.0 % Low [place] Hematocrit 33.2 Result Comment: Test performed at: [facility], [address] [place] [address]. [place] HEMOGLOBIN Collected: 10/06/2017 Status: F Source: [place] 10:25 AM [facility] REPOSITORY TYPE CODE TESTS RESULT OUT OF REFERENCE UNITS RANGE LAB WHGB 11.5-15.5 g/dL Low [place] Hemoglobin 10.7 Result Comment: Test performed at: [facility], [address] [place] [address]. 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 Andrey Barajas / [facility]) EGD. Findings: Localized candidiasis was [...] Andrey Barajas AND Dr. Wilma Jones / [facility]) EGD. Findings: The examined esophagus [...] Helicobacter pylori. 11/01/2016 (Dr. Sahil Kurtz / [facility]) EGD. Findings: No gross lesions [...] examined jejunal lumen appeared grossly normal. 11/17/2016 ([facility] / LAB) Gastric remnant, Biopsies ? Acute and Chronic gastritis. Immunohistochemical stain for Helicobacter pylori is negative for organisms. Comment: There are no cytologic features of CMV infection identified. This was evaluated using a laboratory developed test. 12/20/2016 (Dr. Prabhu Dahl AND Dr. Delano Segovia / [facility]) EGD. Findings: The examined esophagus was normal. Evidence of a Layne-en-Y gastrojejunostomy was found. This was not traversed. The dikks-zg-ziwvsve limb was characterized by ulceration with a [...] appeared intact. 12/21/2016 (Dr. Ruby Hernández / [facility]) EGD. Findings: The examined esophagus [...] lesion seen. 12/22/2016 (Dr. Jacob Cruz / [facility]) EGD. Findings: The examined esophagus [...] 39 cm. 12/25/2016 (Dr. Ruby Hernández / [facility]) EGD. Findings: The examined esophagus [...] stained sections. 02/19/2017 (Dr. Raman Almeida / [facility]) EGD. Findings: There is no [...] HPI: This is a 46-year-old woman from [place] who was adopted into a family [...] indicated. 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 Andrey Barajas / [facility]) EGD. Findings: Localized candidiasis was [...] Andrey Barajas AND Dr. Wilma Jones / [facility]) EGD. Findings: The examined esophagus [...] Helicobacter pylori. 11/01/2016 (Dr. Sahil Kurtz / [facility]) EGD. Findings: No gross lesions [...] examined jejunal lumen appeared grossly normal. 11/17/2016 ([facility] / [facility]) Gastric remnant, Biopsies ? Acute and Chronic gastritis. Immunohistochemical stain for Helicobacter pylori is negative for organisms. Comment: There are no cytologic features of CMV infection identified. This was evaluated using a laboratory developed test. 12/20/2016 (Dr. Prabhu Dahl AND Dr. Delano Segovia / [facility]) EGD. Findings: The examined esophagus was normal. Evidence of a Layne-en-Y gastrojejunostomy was found. This was not traversed. The ekkig-qj-axacygi limb was characterized by ulceration with a [...] appeared intact. 12/21/2016 (Dr. Ruby Hernández / [facility]) EGD. Findings: The examined esophagus [...] lesion seen. 12/22/2016 (Dr. Jacob Cruz / [facility]) EGD. Findings: The examined esophagus [...] 39 cm. 12/25/2016 (Dr. Ruby Hernández / [facility]) EGD. Findings: The examined esophagus [...] stained sections. 02/19/2017 (Dr. Raman Almeida / [facility]) EGD. Findings: There is no [...] HPI: This is a 46-year-old woman from [facility] who was adopted into a family [...] Take 1 capsule by mouth once * [id number] 12,00* Take 1 capsule by mouth three* [...] ulcer disease with hemorrhage [K27.4] INVALID FOR*12/30/2016 Ngsoc-nq-qvjzfjx kidney injury (HCC) [N17.9, N1*INVALID FOR*12/30/2016 More... [...] 10/08/17 PROGRESS Observed: 10/02/2017 Status: COMPLETED Source: [place] 7:15 PM [facility] REPOSITORY HNO ID: [id number] Author: Austen Pierson Service: (none) Author Type: [...] for weight loss. Originally, she was from [facility] and was adopted by a family [...] itself. 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 She likes the carbonation and drinks several of these per day. She says that she does not like Ensure or Boost which makes me sick to my stomach and then gives her diarrhea. She has tried [place] [employer], but while she has it [...] stomach stomach cancer - Malnutrition (HCC) - [facility] - PAST MEDICAL HISTORY OF 2001 Blood [...] children: 0 Occupational History Occupation Employer Comment [employer] Social History Main Topics Smoking status: Former [...] History Narrative , no children Works at [employer] Occupation: on disability FAMILY HISTORY Has [...] D DEFICIENCY Disp: 12 capsule Rfl: 1 jtmcji-wgaupdaw-stpcwpp (CREON) 12,000-38,000 -60,000 unit cpDR Take 1 [...] RECORDS REVIEWED 11/07/2015 (Dr. Jacob Belcher / [facility]) EGD. Findings: The examined esophagus [...] HSV inclusions. 05/30/2016 (Dr. Andrey Barajas / [facility]) EGD. 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 Andrey Barajas / [facility]) EGD. Findings: Localized candidiasis was [...] Andrey Barajas AND Dr. Wilma Jones / [facility]) EGD. Findings: The examined esophagus [...] Helicobacter pylori. 11/01/2016 (Dr. Sahil Kurtz / [facility]) EGD. Findings: No gross lesions [...] examined jejunal lumen appeared grossly normal. 11/17/2016 ([facility] / [facility]) Gastric remnant, Biopsies ? Acute and Chronic gastritis. Immunohistochemical stain for Helicobacter pylori is negative for organisms. Comment: There are no cytologic features of CMV infection identified. This was evaluated using a laboratory developed test. 12/20/2016 (Dr. Prabhu Dahl AND Dr. Delano Segovia / [facility]) EGD. Findings: The examined esophagus was normal. Evidence of a Layne-en-Y gastrojejunostomy was found. This was not traversed. The hwzil-lm-edjocme limb was characterized by ulceration with a [...] appeared intact. 12/21/2016 (Dr. Ruby Hernández / [facility]) EGD. Findings: The examined esophagus [...] lesion seen. 12/22/2016 (Dr. Jacob Cruz / [facility]) EGD. Findings: The examined esophagus [...] 39 cm. 12/25/2016 (Dr. Ruby Hernández / [facility]) EGD. Findings: The examined esophagus [...] stained sections. 02/19/2017 (Dr. Raman Almeida / [facility]) EGD. Findings: There is no [...] cold forceps for histology. 02/21/2017 ([facility]) BYO-NORRIS DNA QNT: EBV DNA not detected by PCR. 08/27/2017 (Dr. Alex Tian / Hematology/Oncology) Office Note: HPI: This is a 46-year-old woman from [facility] who was adopted into a family [...] the OWYN Supplements or going back to [place] [employer] with [place] [employer]. We also discussed tube feeding and/or [...] Kidney transplant Osteopenia PLAN Patient has a Pro [facility] MD account. Labs as ordered - download to Pro Bre[facility] MD To alter diet - Magalys dedrick and try to increase intake, e.g., OWYN sample and information Consider trial of tube feeding Nutrition Therapy consultation in the near future RTC about 3-[address] Barajas and Bri, PCP Austen Pierson MD October 06, 2017 PROGRESS Observed: 10/01/2017 Status: COMPLETED Source: [place] 9:35 AM [facility] [place] REPOSITORY HNO ID: [id number] Author: Bryan Ruggiero (Dayanna) Hanane Service: (none) [...] CKD scr. 3.85mg, eGFR 3.85 -Immunosuppression FK 2/, level 11.5.9 Pred 5mg Off MMF in view gastric ulceration and CMV -Blood Pressure-acceptable on current rx -Anemia-on RICKY at [facility], hgb 8.5 Chronic thrombocytopenia PLAN: increase her amlodipine to 5 mg Oral hydration as tolerated Repeat labs 1-2 weeks Hernandezibe Attestation: By signing my name below, IPetr, attest that this documentation has been prepared under the direction and in the presence of Bryan Koo RN, LOAN SECRETARY. Electronically Signed: chau Contreras, October 01, 2017 9:35 AM Provider Attestation: I, Bryan Koo RN, LOAN SECRETARY, personally performed the services described in this documentation. All medical record entries made by the hernandezibcody were at my direction and in my presence. I have reviewed the chart and discharge instructions (if applicable) and agree that the record reflects my personal performance and is accurate and complete. Bryan Koo RN, LOAN SECRETARY October 01, 2017 9:35 AM [facility] Collected: 09/29/2017 Status: F Source: [place] 11:16 AM [facility] REPOSITORY TYPE CODE TESTS RESULT OUT OF REFERENCE UNITS RANGE LAB WHCT 36.0-46.0 % Low [facility] Hematocrit 31.0 Result Comment: Test performed at: [facility], [address] [place] [address]., [place] [address]. [facility] HEMOGLOBIN Collected: 09/29/2017 Status: F Source: [place] 11:16 AM [facility] REPOSITORY TYPE CODE TESTS RESULT OUT OF REFERENCE UNITS RANGE LAB WHGB 11.5-15.5 g/dL Low [facility] Hemoglobin 9.8 Result Comment: Test performed at: [facility], [address] [place] [address]., [place] [address]. COMP METABOLIC PANEL Collected: 09/24/2017 Status: F Source: [place] 1:10 PM [facility] REPOSITORY TYPE CODE TESTS [...] mg/dL Glucose High 111 Result Comment: The [place] Diabetes Association (ADA) provides guidance for cutoff [...] Standards of Medical Care in Diabetes 2016, [place] Diabetes Association. Diabetes Care. 2016.39(Suppl 1). LAB [...] actual GFR. Performed By: #### CMP #### [facility] [address] [place], [place] [address] TACROLIMUS / [id number] Collected: 09/24/2017 Status: F Source: [place] 1:10 PM [facility] REPOSITORY [...] Test performed by chemiluminescent immunoassay using [employer]oun[employer] Maid. Performed By: #### [id number] #### [facility] [address] [place], [place] [address] CNCO Observed: 09/24/2017 Status: COMPLETED Source: [place] 12:00 AM [facility] REPOSITORY Letter Text September 24, 2017 Val Valvedre [id number] [address] [facility] [address] Dear Vineet Valverde, In the event you are not able to come to your appointment, please contact us to cancel so that we can accommodate other patients who are waiting to be seen by our specialists. The following options are available to assist you with cancelling your appointment: You may notify the [facility] Call Center at [phone]. You may notify your provider's office directly. You may view the details of your upcoming appointments using [employer] on your computer or mobile device. Appointments can be confirmed or cancelled within [employer]. Patients can enroll to receive a text message reminder the day before their appointment. Here's what you need to know: Enroll by simply texting 4clinictext to [phone]. Your cell phone number must be registered with a [facility] Appointment Commercial Loan Administrator. To confirm, please call [phone]. Patients can opt in or out at any time. 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 Would also recommend consideration for possible anoscopy to evaluate for lesions in the anal canal. Patient verbalized understanding of above and agreed with the plan. 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 Family Medicine Physician Assistant: PSCB Transcribe Date/Time: Sep 15 2017 4:55P Dictated by : WOODY RAMON MD This examination was interpreted and the report reviewed and electronically signed by: WOODY RAMON MD on Sep 15 2017 4:56PM EST [id number] PROGRESS Observed: 09/15/2017 Status: COMPLETED Source: [place] 2:59 PM [facility] REPOSITORY HNO ID: [id number] Author: Deshawn Smith (Rt) Malina Delcid Service: (none) Author Type: Bulb Farmworker Type: Progress Notes Filed: 09/15/2017 3:03 PM [...] + CBC Collected: 09/15/2017 Status: F Source: [place] 11:35 AM [facility] REPOSITORY TYPE CODE TESTS RESULT OUT OF REFERENCE UNITS RANGE LAB WWBC 3.70-11.00 k/uL [facility] High WBC 11.63 LAB WRBC 3.90-5.20 m/uL [facility] Low RBC 2.69 LAB WHGB 11.5-15.5 g/dL [facility] Low Hemoglobin 9.6 LAB WHCT 36.0-46.0 % [facility] Low Hematocrit 29.9 LAB WMCV 80.0-100.0 fL [facility] MCV Result checked and verified LAB WMCH 26.0-34.0 pg K[facility]ha High MCH 35.7 LAB WMCHC 30.5-36.0 g/dL [facility] MCHC 32.1 LAB WRDW 11.5-15.0 % [facility] High RDW 18.5 LAB WPLT 150-400 k/uL [facility] Platelet Cnt 161 LAB WMPV 9.0-12.7 fL [facility] MPV 10.9 Result Comment: Test performed at: [facility], [address] [place] [address] Rd., [place] [address]. LAB ABGRAN 1.45-7.50 k/uL High Absol 8.97 Gran Count IRON AND TIBC Collected: 09/15/2017 Status: F Source: [place] 11:35 AM [facility] REPOSITORY TYPE CODE TESTS RESULT OUT OF REFERENCE UNITS RANGE LAB IRN 41-186 ug/dL Iron 78 LAB TIBC 232-386 ug/dL Low TIBC 215 LAB SAT 15-57 % Transferrin Saturatn 36 Performed By: #### IRON, FERR #### [facility] [address] [place] [phone] FERRITIN Collected: 09/15/2017 Status: F Source: [place] 11:35 AM [facility] REPOSITORY TYPE CODE TESTS RESULT OUT OF REFERENCE UNITS RANGE LAB FERR 14.7-205.1 ng/mL High Ferritin 1220.0 Performed By: #### IRON, FERR #### [facility] [address] [phone] IRON AND TIBC Collected: 09/08/2017 Status: F Source: [place] 11:07 AM [facility] REPOSITORY TYPE CODE TESTS RESULT OUT OF REFERENCE UNITS RANGE LAB IRN 41-186 ug/dL Iron 69 LAB TIBC 232-386 ug/dL Low TIBC 211 LAB SAT 15-57 % Transferrin Saturatn 33 Performed By: #### IRON, FERR #### [facility] [address] [address] FERRITIN Collected: 09/08/2017 Status: F Source: [place] 11:07 AM [facility] REPOSITORY TYPE CODE TESTS RESULT OUT OF REFERENCE UNITS RANGE LAB FERR 14.7-205.1 ng/mL High Ferritin 1282.0 Performed By: #### IRON, FERR #### [facility] [address] [phone] K[facility]HA ABS GR + CBC Collected: 09/08/2017 Status: F Source: [place] 11:06 AM [facility] REPOSITORY TYPE CODE TESTS RESULT OUT OF REFERENCE UNITS RANGE LAB WWBC 3.70-11.00 k/uL [facility] High WBC 13.60 LAB WRBC 3.90-5.20 m/uL Low [facility] RBC 2.63 LAB WHGB 11.5-15.5 g/dL Low [facility] Hemoglobin 9.2 LAB WHCT 36.0-46.0 % Low [facility] Hematocrit 29.3 LAB WMCV 80.0-100.0 fL [facility] High MCV 111.4 Result Comment: Result checked and verified LAB WMCH 26.0-34.0 pg High [facility] MCH 35.0 LAB WMCHC 30.5-36.0 g/dL [facility] MCHC 31.4 LAB WRDW 11.5-15.0 % High [facility] RDW 19.1 LAB WPLT 150-400 k/uL [facility] 173 Platelet Cnt LAB WMPV 9.0-12.7 fL [facility] MPV 10.2 Result Comment: Test performed at: [address] [place] [address]. LAB ABGRAN 1.45-7.50 k/uL High Absol 10.68 Gran Count CNOV Observed: 09/08/2017 Status: COMPLETED Source: [place] 10:45 AM [facility] REPOSITORY Office Visit (GENSWS) VAL VALVERDE ([id number]) 1970 F TRN Date Time Provider Department 09/08/17 10:45 AM ASIA MENDOZA (PA) During your visit today, we recorded the following information about you: Pulse Blood pressure Weight 66/minute 160/90 36.3 kg Asia Mendoza PA-C 09/18/2017 11:12 AM Signed FOLLOW UP VISIT - POST OP NAME: Val Bright Abram [facility] NO.: [id number] DATE OF SERVICE: 09/08/2017 : 1970 REFERRING [...] the past-reviewed importance of regular follow-up with [facility]. Would also recommend consideration for possible anoscopy [...] results [facility] causing delay in receiving/reviewing results. PROCEDURE(S) CISH HPV LOW RISK ? Date Ordered: ?10/14/2017 ? ? ? Date Reported: ?10/16/2017 Procedure Results and Interpretation At request of the clinician, chromogenic in situ hybridization (CISH) studies for high risk HPV were obtained on case [id number]. The results of HPV CISH testing are negative for high risk HPV. Clinical correlation is recommended. Reviewed with Dr. Baldwin, per Dr. Baldwin no additional surgical surveillance required based on these results. Discussed with patient, who is instructed to follow up with us if she notes any new concerns or recurrent lesions. Patient verbalized understanding. Referring Provider: VANI BALDWIN [[id number]] Allergies As of Date: 09/08/2017 Noted Allergy [...] 1 capsule by mouth once * X [id number] 12,00* Take 1 capsule by mouth three* [...] ulcer disease with hemorrhage [K27.4] INVALID FOR*12/30/2016 Srftl-wq-jbdzoen kidney injury (HCC) [N17.9, N1*INVALID FOR*12/30/2016 More... [...] + CBC Collected: 09/01/2017 Status: F Source: [place] 4:11 PM [facility] REPOSITORY TYPE CODE TESTS RESULT OUT OF REFERENCE UNITS RANGE LAB WWBC 3.70-11.00 k/uL [facility] High WBC 13.11 LAB WRBC 3.90-5.20 m/uL Low [facility] RBC 2.75 LAB WHGB 11.5-15.5 g/dL Low [facility] Hemoglobin 9.7 LAB WHCT 36.0-46.0 % Low [facility] Hematocrit 31.0 LAB WMCV 80.0-100.0 fL [facility] High MCV 112.7 LAB WMCH 26.0-34.0 pg [facility] High MCH 35.3 LAB WMCHC 30.5-36.0 g/dL [facility] MCHC 31.3 LAB WRDW 11.5-15.0 % [facility] High RDW 18.7 LAB WPLT 150-400 k/uL [facility] Platelet Cnt 211 LAB WMPV 9.0-12.7 fL [facility] MPV 10.2 Result Comment: Test performed at: [address] [place] [address]. LAB ABGRAN 1.45-7.50 k/uL High Absol 11.79 Gran Count IRON AND TIBC Collected: 09/01/2017 Status: F Source: [place] 4:11 PM [facility] REPOSITORY TYPE CODE TESTS RESULT OUT OF REFERENCE UNITS RANGE LAB IRN 41-186 ug/dL [facility] 71 LAB TIBC 232-386 ug/dL TIBC 243 LAB SAT 15-57 % Transferrin Saturatn 29 Performed By: #### IRON, FERR #### [facility] [address] [place], [place] [address] FERRITIN Collected: 09/01/2017 Status: F Source: [place] 4:11 PM [facility] REPOSITORY TYPE CODE TESTS RESULT OUT OF REFERENCE UNITS RANGE LAB FERR 14.7-205.1 ng/mL High Ferritin 712.5 Performed By: #### IRON, FERR #### [facility] [address] [place], [place] [address] PROCEDURE Observed: 08/31/2017 Status: COMPLETED Source: [place] 12:32 PM [facility] REPOSITORY HNO ID: [id number] Author: Vani Baldwin Service: (none) Author Type: [...] well. PROGRESS Observed: 08/31/2017 Status: COMPLETED Source: [place] 12:30 PM [facility] REPOSITORY HNO ID: [id number] Author: Vani Baldwin Service: (none) Author Type: Physician Type: Progress Notes Filed: 08/31/2017 12:36 PM Note Text: Patient here for excision of skin lesions of anal tissue. Tolerated well Follow up next week for wound check and discussion of results. CNOV Observed: 08/29/2017 Status: COMPLETED Source: [place] 1:00 PM [facility] REPOSITORY Office Visit (GENSWS) VAL VALVERDE ([id number]) 1970 F TRN Date Time Provider Department [...] to your office visit today with the [facility]. Instructions After SKIN EXCISION-SUTURES If [...] you should contact our office immediately @ [phone] and ask to be transferred to the [...] the procedure well. Referring Provider: KERI ADAME ([facility]) [[id number]] Allergies As of Date: 08/29/2017 Noted Allergy Reaction SULFA (SULFONAMIDE ANTIBIOTICS) 04/07/2001 4 - Hives Comments: hives NSAIDS (NON-STEROIDAL ANTI-INFLAM*04/23/2016 5 - Intolerance Date Reviewed: 08/29/2017 Reviewed by: Keri Briseno RN - Fully Assessed Reason for Visit: Procedure [88] Visit Diagnoses:Skin lesion [L98.9] Anal lesion [K62.9] Order(s):SURGICAL PATHOLOGY [[id number]] Order #: [id number] Prescriptions as of 08/29/2017 Sig: POLYSACCHARIDE IRON [...] Take 1 capsule by mouth once * [id number] 12,00* Take 1 capsule by mouth three* [...] ulcer disease with hemorrhage [K27.4] INVALID FOR*12/30/2016 Fwzrk-sv-tgtydce kidney injury (HCC) [N17.9, N1*INVALID FOR*12/30/2016 More... [...] to your office visit today with the [facility]. Instructions After SKIN EXCISION-SUTURES If [...] you should contact our office immediately @ [phone] and ask to be transferred to the General Surgery department. Encounter Status:Closed by MD VANI BALDWIN on 08/31/17 PROGRESS Observed: 08/29/2017 Status: COMPLETED Source: [place] 12:56 PM [facility] REPOSITORY HNO ID: [id number] Author: Keri Briseno RN Service: (none) Author [...] SURGICAL PATHOLOGY Observed: 08/29/2017 Status: F Source: [place] 12:00 AM [facility] REPOSITORY Specimen originated from [facility] Specimen #: [id number] Submitting Physician: VANI BALDWIN MD FINAL DIAGNOSIS [...] in three cassettes. Gross examination performed at [facility], [address] [place] [address] 08/29/2017 11:39:52 PM Date of Report: 09/01/2017 Date of Procedure: 08/29/2017 Date of Receipt: 08/29/2017 Submitted by: VANI BALDWIN MD Location: [facility] [place] [facility] A3 Diagnostic interpretation performed at [place] [address]. PROGRESS Observed: 08/27/2017 Status: COMPLETED Source: [place] 4:00 PM [facility] [place] REPOSITORY HNO ID: [id number] Author: Alex Tian Service: (none) Author Type: Physician Type: Progress Notes Filed: 08/28/2017 8:55 AM Note Text: PATIENT NAME: Val Valverde. CLINIC NO: [id number]. ATTENDING PHYSICIAN: Alex Tian MD. DATE OF SERVICE: 08/27/2017 ?? DIAGNOSIS: Anemia of chronic disease secondary stage IV renal failure; status post partial gastrectomy for gastric cancer History of renal transplant. ?? HPI: This is a 46-year-old woman from [facility] who was adopted into a family [...] 3.70 - 11.00 k/uL 12.39 (H) RBC, [facility] 3.90 - 5.20 m/uL 2.72 (L) Hemoglobin, [facility] 11.5 - 15.5 g/dL 9.4 (L) Hematocrit, [facility] 36.0 - 46.0 % 29.9 (L) MCV, [facility] 80.0 - 100.0 fL 109.9 (H) MCH, [facility] 26.0 - 34.0 pg 34.6 (H) MCHC, [facility] 30.5 - 36.0 g/dL 31.4 RDW, [facility] 11.5 - 15.0 % 18.3 (H) Platelet Cnt, [facility] 150 - 400 k/uL 232 MPV, [facility] 9.0 - 12.7 fL 10.5 Absol Gran [...] MD CNOVSP Observed: 08/27/2017 Status: COMPLETED Source: [place] 3:20 PM [facility] REPOSITORY Visit (SP) Office (HEMAWS) VAL VALVERDE ([id number]) 1970 F TRN Date Time Provider Department [...] Signed PATIENT NAME: Val Valverde. CLINIC NO: [id number]. ATTENDING PHYSICIAN: Alex Tian MD. DATE OF SERVICE: 08/27/2017 ?? DIAGNOSIS: Anemia of chronic disease secondary stage IV renal failure; status post partial gastrectomy for gastric cancer History of renal transplant. ?? HPI: This is a 46-year-old woman from [facility] who was adopted into a family [...] 3.70 - 11.00 k/uL 12.39 (H) RBC, [facility] 3.90 - 5.20 m/uL 2.72 (L) Hemoglobin, [facility] 11.5 - 15.5 g/dL 9.4 (L) Hematocrit, [facility] 36.0 - 46.0 % 29.9 (L) MCV, [facility] 80.0 - 100.0 fL 109.9 (H) MCH, [facility] 26.0 - 34.0 pg 34.6 (H) MCHC, [facility] 30.5 - 36.0 g/dL 31.4 RDW, [facility] 11.5 - 15.0 % 18.3 (H) Platelet Cnt, [facility] 150 - 400 k/uL 232 MPV, Kesha [...] Alex Tian MD Referring Provider: ALEX TIAN [[id number]] Allergies As of Date: 08/27/2017 Noted Allergy [...] of Service: EST PATIENT VISIT LEVEL 4 [[id number]] Disposition: Return in about 6 months (around [...] Take 1 capsule by mouth once * [id number]-GZBAIJI 12,00* Take 1 capsule by mouth three* [...] ulcer disease with hemorrhage [K27.4] INVALID FOR*12/30/2016 Kcrlc-hs-whfjyto kidney injury (HCC) [N17.9, N1*INVALID FOR*12/30/2016 More... [...] + CBC Collected: 08/25/2017 Status: F Source: [place] 11:10 AM [facility] REPOSITORY TYPE CODE TESTS RESULT OUT OF REFERENCE UNITS RANGE LAB WWBC 3.70-11.00 k/uL [facility] High WBC 12.39 LAB WRBC 3.90-5.20 m/uL Low [facility] RBC 2.72 LAB WHGB 11.5-15.5 g/dL Low [facility] Hemoglobin 9.4 LAB WHCT 36.0-46.0 % Low [facility] Hematocrit 29.9 LAB WMCV 80.0-100.0 fL [facility] High MCV 109.9 LAB WMCH 26.0-34.0 pg [facility] High MCH 34.6 LAB WMCHC 30.5-36.0 g/dL [facility] MCHC 31.4 LAB WRDW 11.5-15.0 % [facility] High RDW 18.3 LAB WPLT 150-400 k/uL [facility] Platelet Cnt 232 LAB WMPV 9.0-12.7 fL [facility] MPV 10.5 Result Comment: Test performed at: [address] [place] [address]. LAB ABGRAN 1.45-7.50 k/uL High Absol 9.12 Gran Count COMP METABOLIC PANEL Collected: 08/25/2017 Status: F Source: [place] 11:10 AM [facility] REPOSITORY TYPE CODE TESTS [...] mg/dL Glucose High 101 Result Comment: The [place] Diabetes Association (ADA) provides guidance for cutoff [...] Standards of Medical Care in Diabetes 2016, [place] Diabetes Association. Diabetes Care. 2016.39(Suppl 1). LAB [...] GFR. Performed By: #### CMP, BKQUAN #### [facility] [address] [place], [place] [address] BK VIRUS PCR,QUANT,P Collected: 08/25/2017 Status: F Source: [place] 11:10 AM [facility] REPOSITORY TYPE CODE TESTS RESULT OUT OF REFERENCE UNITS RANGE LAB BKVDNA copies/mL BK Negative for Virus DNA BK virus DNA QN PCR by PCR Result Comment: Reference Range: Negative for BK virus DNA The Linear Range of this assay is 500 copies/mL to 5,000,000 copies/mL. This test was developed and its performance characteristics determined by [facility]'s [facility] Pathology and Laboratory Medicine [place] [facility] It has not been cleared or approved by the FDA. -[facility] is regulated under CLIA as qualified to perform high-complexity testing. This test is used for clinical purposes. It should not be regarded as investigational or for research. Performed By: #### CMP, BKQUAN #### [place] [address] TACROLIMUS / [id number] Collected: 08/25/2017 Status: F Source: [place] 11:10 AM [facility] REPOSITORY TYPE CODE TESTS [...] Test performed by chemiluminescent immunoassay using [employer] Or Lounges Maid. Performed By: #### FK506 #### [place] [address] RETICULOCYTE Collected: 08/20/2017 Status: F Source: [place] 3:48 PM [facility] REPOSITORY TYPE CODE TESTS RESULT OUT OF REFERENCE UNITS RANGE LAB RETC 0.4-2.0 % High Retic% 3.5 LAB ABRET 0.0180-0.1000 M/uL Abs Retic 0.098 Performed By: #### RETIC, IRON, FERR #### [place] [address] IRON AND TIBC Collected: 08/20/2017 Status: F Source: [place] 3:48 PM [facility] REPOSITORY TYPE CODE TESTS RESULT OUT OF REFERENCE UNITS RANGE LAB IRN 41-186 ug/dL Low Iron 40 LAB TIBC 232-386 ug/dL Low TIBC 212 LAB SAT 15-57 % Transferrin Saturatn 19 Performed By: #### RETIC, IRON, FERR #### [facility] [address] [place], [place] [address] FERRITIN Collected: 08/20/2017 Status: F Source: [place] 3:48 PM [facility] REPOSITORY TYPE CODE TESTS RESULT OUT OF REFERENCE UNITS RANGE LAB FERR 14.7-205.1 ng/mL High Ferritin 878.4 Performed By: #### RETIC, IRON, FERR #### [facility] [address] [place], [place] [address] BD DXA - FOREARM Observed: 08/18/2017 Status: F Source: [place] SKELETON 12:06 PM [facility] REPOSITORY * * *Final Report* [...] Osteoporosis Less than or equal to -2.5 Family Medicine Physician Assistant: NELIA Transcribe Date/Time: Aug 19 2017 1:44P Dictated by : JULIAN BUSTAMANTE MD This examination was interpreted and the report reviewed and electronically signed by: JULIAN BUSTAMANTE MD on Aug 19 2017 1:45PM EST [id number] VFA WITH DXA - Observed: 08/18/2017 Status: F Source: [place] AXIAL SKELETON 12:06 PM [facility] REPOSITORY * * *Final Report* [...] Osteoporosis Less than or equal to -2.5 Family Medicine Physician Assistant: [facility] Transcribe Date/Time: Aug 25 2017 1:40P Dictated by : JULIAN BUSTAMANTE MD This examination was interpreted and the report reviewed and electronically signed by: JULIAN BUSTAMANTE MD on Aug 25 2017 1:42PM EST [id number] PROGRESS Observed: 08/18/2017 Status: COMPLETED Source: [place] 11:36 AM [facility] REPOSITORY HNO ID: [id number] Author: Katiana Goncalves Service: (none) Author Type: (none) Type: Progress Notes Filed: 08/18/2017 12:05 PM Note Text: Val Valverde August 18, 2017 [id number] Double identification: Patient identified by name and Bone Density Completed. Katiana Norman Rt patient told of radiation jk 11:30 am not PROGRESS Observed: 08/11/2017 Status: COMPLETED Source: [place] 8:45 PM [facility] REPOSITORY HNO ID: [id number] Author: Vani Baldwin Service: (none) Author Type: Physician Type: Progress Notes Filed: 08/12/2017 7:12 PM Note Text: Val Valverde 1970 REFERRING PHYSICIAN: Keri Adame ([facility]), APR* CHIEF COMPLAINT: New Patient (hemorrhoids) HPI: [...] week. 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[employer] Social History Main Topics Smoking status: Former [...] History Narrative , no children Works at [employer] FAMILY HISTORY Problem Relation Age [...] + CBC Collected: 08/11/2017 Status: F Source: [place] 2:49 PM [facility] REPOSITORY TYPE CODE TESTS RESULT OUT OF REFERENCE UNITS RANGE LAB WWBC 3.70-11.00 k/uL [place] High WBC 11.19 LAB WRBC 3.90-5.20 m/uL Low [place] RBC 2.55 LAB WHGB 11.5-15.5 g/dL Low [place] Hemoglobin 8.9 LAB WHCT 36.0-46.0 % Low [place] Hematocrit 27.7 LAB WMCV 80.0-100.0 fL [place] High MCV 108.6 LAB WMCH 26.0-34.0 pg [place] High MCH 34.9 LAB WMCHC 30.5-36.0 g/dL [place] MCHC 32.1 LAB WRDW 11.5-15.0 % [place] High RDW 17.7 LAB WPLT 150-400 k/uL [place] Platelet Cnt 296 LAB WMPV 9.0-12.7 fL [place] MPV 10.1 Result Comment: Test performed at: [facility], [address] [place] [address] Rd[address] [place] [address]. LAB ABGRAN 1.45-7.50 k/uL High Absol 10.16 Gran Count VITAMIN B12 Collected: 08/11/2017 Status: F Source: [place] 2:48 PM [facility] REPOSITORY TYPE CODE TESTS RESULT OUT OF REFERENCE UNITS RANGE LAB B12 232-1245 pg/mL High Vitamin B12 >2000 Performed By: #### B12 #### [facility] [address] [place], [place] [address] CNOV Observed: 08/11/2017 Status: COMPLETED Source: [place] 1:30 PM [facility] REPOSITORY Office Visit (GENSWS) VAL VALVERDE ([id number]) 1970 F TRN Date Time Provider Department [...] Baldwin MD 08/12/2017 7:12 PM Signed Val Bright Abram 1970 REFERRING PHYSICIAN: Keri Adame ([facility]), APR* CHIEF COMPLAINT: New Patient (hemorrhoids) HPI: [...] week. (ONE CAPSULE) FOR VITAMIN D DEFICIENCY yowsuk-cmhhsusm-yvxuivq (CREON) 12,000-38,000 -60,000 unit cpDR Take 1 [...] children: 0 Occupational History Occupation Employer Comment [employer] Social History Main Topics Smoking status: Former [...] History Narrative , no children Works at [employer] FAMILY HISTORY Problem Relation Age [...] (Z94.0) Renal transplant, status post (D89.9) Immunosuppression ([facility]) Vani Baldwin MD Referring Provider: KERI ADAME ([facility]) [[id number]] Allergies As of Date: 08/11/2017 Noted Allergy [...] Take 1 capsule by mouth once * OBJXNZ-HUXUWKEZ-FMEEEAR 12,00* Take 1 capsule by mouth three* [...] ulcer disease with hemorrhage [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 [...] 08/12/17 PROGRESS Observed: 08/07/2017 Status: COMPLETED Source: [place] 12:00 AM [facility] REPOSITORY HNO ID: [id number] Author: Andrey Barajas Service: Abstract Author Type: Physician Type: Progress Notes Filed: 08/07/2017 9:28 AM Note Text: [facility] NOTE NAME: VAL VALVERDE CLINIC NO.: [id number] DATE OF SERVICE: 08/07/2017 SUBJECTIVE: This is [...] consultation the next time she is at [facility]. We will also plan on repeat EGD in 3 to 4 months. Sincerely, DICTATED BY: Andrey Barajas M.D. VALARIE/Sumit JOB# [id number] DAYANNAN Observed: 08/06/2017 Status: COMPLETED Source: [place] 12:00 AM [facility] REPOSITORY Telephone (GASTMN) VAL VALVERDE ([id number]) 1970 F TRN Date Time Provider Department 08/06/17 JAVIER BEAN ([place]AL) GASTNJ During your visit today, we recorded the [...] Fully Assessed Reason for Visit: Medication Question [7928] Order(s):esomeprazole (NEXIUM) 40 mg capsuleTake 1 capsule [...] Take 1 capsule by mouth once * UJATBL-UCUUNRWZ-WZQKGEG 12,00* Take 1 capsule by mouth three* [...] ulcer disease with hemorrhage [K27.4] INVALID FOR*12/30/2016 Flldz-wi-azainas kidney injury (HCC) [N17.9, N1*INVALID FOR*12/30/2016 More... [...] 08/06/17 PROGRESS Observed: 07/31/2017 Status: COMPLETED Source: [place] 2:02 PM [facility] REPOSITORY HNO ID: [id number] Author: Bryan Ruggiero (Dayanna) Hanane Service: (none) [...] stomach stomach cancer - Malnutrition (HCC) - [facility] - PAST MEDICAL HISTORY OF 2001 Blood [...] of sepsis and hypotension Did not require ANIMAL TECHNICIAN TAC and MMF in view of critical [...] Lymph 1.00 - 4.00 k/uL 0.43 (L) Gilchrist% % 5.0 Abs Gilchrist <0.87 k/uL 0.47 Eosin% % 0.9 Abs Eosin <0.46 k/uL 0.08 Baso% % 0.1 Abs Baso <0.11 k/uL <0.03 Burna% % Anisocytosis Polychromasia RBC Fragments Target Cells [...] Kesha 3.70 - 11.00 k/uL 10.09 RBC, [place] 3.90 - 5.20 m/uL 2.40 (L) Hemoglobin, [place] 11.5 - 15.5 g/dL 8.5 (L) Hematocrit, [place] 36.0 - 46.0 % 26.5 (L) MCV, [place] 80.0 - 100.0 fL 110.4 (H) MCH, [place] 26.0 - 34.0 pg 35.4 (H) MCHC, [...] Pressure-acceptable on current rx -Anemia-on RICKY at [place], hgb 8.5 Chronic thrombocytopenia PLAN: Reduce FK [...] be in the office Bryan Koo RN LOAN SECRETARY I spent 35 minutes in the visit, with more than 50% of the total fgan-sg-jqdk time of the visit in counseling / coordination of care. URINALYSIS Collected: 07/31/2017 Status: F Source: [place] 2:01 PM [facility] REPOSITORY TYPE CODE TESTS RESULT OUT OF RANGE REFERENCE UNITS LAB UCOL Yellow Color Yellow LAB [facility] Clear Clarity Clear LAB UGLUC Negative mg/dL Glucose, Urine Negative LAB UBIL Negative Bilirubin, Urine Negative LAB UKET Negative Ketones, Urine Negative LAB USPG 1.005-1.030 Specific [place], Ur 1.010 LAB UHGB Negative Hemoglobin/Blood, Negative Ur LAB UPH 4.5-8.0 pH 5.5 LAB UPROT Negative mg/dL Protein, Abnormal Urine 30 Alert LAB UUROB Normal Urobilinogen Normal LAB UNITR Negative Nitrites Negative LAB ULKEST Negative Leukest Negative LAB UCOM Comments SEE COMMENT Result Comment: Microscopic not warranted LAB UMCOM Urine SEE Louie Comment COMMENT Result Comment: N/A Performed By: #### UA #### [facility] [address] [place], [place] [address] CNOV Observed: 07/31/2017 Status: COMPLETED Source: [place] 1:30 PM [facility] REPOSITORY Office Visit (NEPHMN) ABRAMVAL S ([id number]) 1970 F TRN Date Time Provider Department 07/31/17 1:30 PM BRYAN KOO (LOAN SECRETARY) NEPHMN During your visit today, we recorded [...] of sepsis and hypotension Did not require ANIMAL TECHNICIAN TAC and MMF in view of critical [...] Lymph 1.00 - 4.00 k/uL 0.43 (L) Gilchrist% % 5.0 Abs Gilchrist ANDlt;0.87 k/uL 0.47 Eosin% % 0.9 Abs Eosin ANDlt;0.46 k/uL 0.08 Baso% % 0.1 Abs Baso ANDlt;0.11 k/uL ANDlt;0.03 Burna% % Anisocytosis Polychromasia RBC Fragments Target Cells [...] Kesha 3.70 - 11.00 k/uL 10.09 RBC, [place] 3.90 - 5.20 m/uL 2.40 (L) Hemoglobin, [place] 11.5 - 15.5 g/dL 8.5 (L) Hematocrit, [place] 36.0 - 46.0 % 26.5 (L) MCV, [place] 80.0 - 100.0 fL 110.4 (H) MCH, [place] 26.0 - 34.0 pg 35.4 (H) MCHC, [place] 30.5 - 36.0 g/dL 32.1 RDW, [place] 11.5 - 15.0 % 18.2 (H) Platelet Cnt, [place] 150 - 400 k/uL 132 (L) MPV, [...] be in the office Bryan Koo RN LOAN SECRETARY I spent 35 minutes in the visit, with more than 50% of the total icsh-ut-ebdx time of the visit in counseling / [...] [Z94.0] Order(s):UA CHEMSTRIP ONLY [SQUA] Order #: [id number] FUTURE UA CHEMSTRIP ONLY [SQUA] Order #: [id number]. #:[id number] VITAMIN B12 BLOOD [SQB12] Order #: [id number] tacrolimus (PROGRAF) 1 mg capsuleTake (1) capsule [...] Take 1 capsule by mouth once * DQPZTO-IPXKDUVV-EMQYPZY 12,00* Take 1 capsule by mouth three* [...] ulcer disease with hemorrhage [K27.4] INVALID FOR*12/30/2016 Wupkw-aw-yjedtpl kidney injury (HCC) [N17.9, N1*INVALID FOR*12/30/2016 More... [...] + CBC Collected: 07/28/2017 Status: F Source: [place] 11:10 AM [facility] [place] REPOSITORY TYPE CODE TESTS RESULT OUT OF REFERENCE UNITS RANGE LAB WWBC 3.70-11.00 k/uL Kes[place] WBC 10.09 LAB WRBC 3.90-5.20 m/uL Low [place] RBC 2.40 LAB WHGB 11.5-15.5 g/dL Low [place] Hemoglobin 8.5 LAB WHCT 36.0-46.0 % Low [place] Hematocrit 26.5 LAB WMCV 80.0-100.0 fL [place] High MCV 110.4 Result Comment: Result rechecked. LAB WMCH 26.0-34.0 pg High [place] MCH 35.4 LAB WMCHC 30.5-36.0 g/dL Kesha MCHC 32.1 LAB WRDW 11.5-15.0 % High [place] RDW 18.2 LAB WPLT 150-400 k/uL Low [place] 132 Platelet Cnt LAB WMPV 9.0-12.7 fL [place] MPV 10.4 Result Comment: Test performed at: [facility] [place], [address] [place], [place] [address]n Rd[address] [place] [address]. LAB ABGRAN 1.45-7.50 k/uL Absol Gran 7.46 Count Result Comment: Reviewed Performed By: #### WAGCBC #### [facility] [address] [place], [place] [address] COMP METABOLIC PANEL Collected: 07/28/2017 Status: F Source: [place] 11:10 AM [facility] [place] REPOSITORY TYPE CODE TESTS RESULT OUT OF REFERENCE UNITS RANGE LAB TP 6.3-8.0 g/dL Protein, Total 6.3 LAB ALB 3.9-4.9 g/dL Low Albumin 2.8 LAB CA 8.5-10.2 mg/dL Low Calcium, Total 7.8 LAB TBIL 0.2-1.3 mg/dL Bilirubin, Total 0.2 LAB ALKP 32-117 U/L Alkaline Phosphatase 86 LAB AST 13-35 U/L AST 24 LAB GLU 74-99 mg/dL Glucose High 142 Result Comment: The [place] Diabetes Association (ADA) provides guidance for cutoff [...] Standards of Medical Care in Diabetes 2016, [place] Diabetes Association. Diabetes Care. 2016.39(Suppl 1). LAB [...] actual GFR. Performed By: #### CMP #### [facility] [address] [place], [place] [address] TACROLIMUS / [id number] Collected: 07/28/2017 Status: F Source: [place] 11:10 AM [facility] REPOSITORY TYPE CODE TESTS [...] Test performed by chemiluminescent immunoassay using [employer]. Performed By: #### FK506 #### [facility] [address] [place], [place] [address] CNCO Observed: 07/25/2017 Status: COMPLETED Source: [place] 12:04 PM [facility] REPOSITORY HNO ID: [id number] Author: Mammography Coordinator Service: (none) Author Type: Physician Type: Letter Filed: 07/28/2017 11:33 PM Note Text: July 25, 2017 PID: [id number] Val Valverde [address] [place] [address] Dear Ms. Valverde, We are pleased to [...] report will be kept on file at [facility] as part of your permanent medical record and are available for your continuing care. Thank you for allowing us to help in meeting your health care needs. Sincerely, Dr. Torres Interpreting Radiologist [facility] (Normal over 40[place] [facility] SCREENING Observed: 07/25/2017 Status: F Source: [place] 10:23 AM [facility] REPOSITORY * * *Final Report* * * DATE OF EXAM: Jul 25 2017 10:23AM [facility] 0581 - [facility] SCREENING / PROCEDURE REASON: Encounter for screening mammogram for malignant neoplasm of breast * * * * Physician Interpretation * * * * RESULT: #[id number] - [facility] SCREENING BILATERAL DIGITAL SCREENING MAMMOGRAM WITH [...] mammogram, 11/29/2013 mammogram, and 11/11/2012 [place] [facility] The tissue of both breasts is extremely dense, which lowers the sensitivity of mammography. No significant masses, calcifications, or other findings are seen in either breast. There has been no significant interval change. IMPRESSION: NEGATIVE There is no mammographic evidence of malignancy. A 1 year screening mammogram is recommended. Radha Torres M.D., ch/natalie:07/25/2017 12:04:21 Software Test Developer: Ana PEREZ)([place]), [facility] letter sent: Normal over 40 Mammogram BI-RADS: 1 Negative Family Medicine Physician Assistant: Natalie Transcribe Date/Time: Jul 25 2017 10:27A Dictated by: RADHA TORRES MD This examination was interpreted and the report reviewed and electronically signed by: RADHA TORRES MD on Jul 25 2017 12:04PM EST [id number] CNOV Observed: 07/25/2017 Status: COMPLETED Source: [place] 9:30 AM [facility] REPOSITORY Office Visit (WOOB) VAL VALVERDE ([id number]) 1970 F TRN Date Time Provider Department [...] external genitalia normal, normal Bartholin's glands, urethra, Leonidas's glands, no vulvar lesions, no cervical lesions, [...] [K64.9] Encounter for screening for 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 [Z13.820] [facility] current use of systemic steroids [Z79.52] Order(s):DXA-AXIAL SKELETON [6549901] Order #: [id number] FUTURE CONSULT TO GENERAL SURGERY [9011] Order #: [id number]: 1 Prescriptions as of 07/25/2017 Sig: ALBUTEROL SULFATE HFA 90 MCG/* 2 Puffs every 4 hours as need* AMLODIPINE 2.5 MG TABLET Take 1 tablet by mouth once d* PREDNISONE 5 MG TABLET Take 1 tablet by mouth once d* CHOLECALCIFEROL (VITAMIN D3) * Take 1 capsule by mouth once * GDMRON-CFGTSNMM-FKSFDDN 12,00* Take 1 capsule by mouth three* [...] ulcer disease with hemorrhage [K27.4] INVALID FOR*12/30/2016 Bhztf-yq-gtbtgmv kidney injury (HCC) [N17.9, N1*INVALID FOR*12/30/2016 More... [...] 07/25/17 PROGRESS Observed: 07/25/2017 Status: COMPLETED Source: [place] 9:03 AM [facility] REPOSITORY HNO ID: [id number] Author: Keri Adame Service: (none) Author Type: [...] external genitalia normal, normal Bartholin's glands, urethra, Leonidas's glands, no vulvar lesions, no cervical lesions, [...] CNP CYTOLOGY Observed: 07/23/2017 Status: F Source: [place] 4:18 PM [facility] REPOSITORY Specimen originated from [facility] Specimen #: [id number] Submitting Physician: ANDREY BARAJAS MD SPECIMEN SUBMITTED [...] ASPIRATE(THINPREP AND CELL BLOCK) THIN PREP Non-Assistant Dean Of Students, CELL BLOCK, H&E, Initial Date of Report: 07/24/2017 Date of Procedure: 07/23/2017 Date of Receipt: 07/23/2017 Submitted by: ANDREY BARAJAS MD Location: [facility] [place] [facility] [place] [address] Diagnostic interpretation performed at [facility], [address] [place] [address]. SURGICAL PATHOLOGY Observed: 07/22/2017 Status: F Source: [place] 11:40 AM [facility] REPOSITORY Specimen originated from [facility] Specimen #: [id number] Submitting Physician: ANDREY BARAJAS MD FINAL DIAGNOSIS Stomach, biopsy - Small bowel mucosa with no specific diagnostic alteration (please see comment). EDK/stephanie 07/23/2017 COMMENT Multiple additional levels were reviewed. Dayna Zarco D.O. (Electronic Signature) SPECIMEN SUBMITTED A: GASTRIC, BIOPSY CLINICAL DATA GASTRIC ULCER HISTORY R/O H. PYLORI GROSS DESCRIPTION A. Received in formalin is one piece of chowdhury, soft tissue measuring 0.2 x 0.2 x 0.1 cm. Totally submitted in one cassette. Gross examination performed at [facility], [address] [place] [address] 07/22/2017 6:52:19 PM Date of Report: 07/24/2017 Date of Procedure: 07/22/2017 Date of Receipt: 07/22/2017 Submitted by: ANDREY BARAJAS MD Location: [facility] [place] [facility] A3 Diagnostic interpretation performed at [place] [address]. PROGRESS Observed: 07/21/2017 Status: COMPLETED Source: [place] 11:08 AM [facility] REPOSITORY HNO ID: [id number] Author: Duy Dumas Service: (none) Author Type: Nurse Practitioner Type: Progress Notes Filed: 07/21/2017 12:13 PM Note Text: CC: Patient presents with: Recheck: Hosp follow up, pneumonia, Flu and septsis HPI Val Valverde is a 46 year old female who presents today with inwljx-ji-ybo for follow up from hospital admission 07/03 to 07/14/17. Patient initially presented to the [facility] ER with complaints of chest pain and SOB. Chest Xray revealed bilateral infiltrates and elevated lactate 2.0. Patient was admitted to the ICU until transfer to [facility]. Patient transferred on 07/04/17 for [...] week. (ONE CAPSULE) FOR VITAMIN D DEFICIENCY kxdmto-wplzoesq-mnlulfr (CREON) 12,000-38,000 -60,000 unit cpDR Take 1 [...] CNP CNOV Observed: 07/21/2017 Status: COMPLETED Source: [place] 11:00 AM [facility] REPOSITORY Office Visit (INTMWS) VAL VALVERDE ([id number]) 1970 F TRN Date Time Provider Department [...] year old female who presents today with gtguad-fn-yhd for follow up from hospital admission 07/03 to 07/14/17. Patient initially presented to the [facility] ER with complaints of chest pain and SOB. Chest Xray revealed bilateral infiltrates and elevated lactate 2.0. Patient was admitted to the ICU until transfer to [facility]. Patient transferred on 07/04/17 for [...] week. (ONE CAPSULE) FOR VITAMIN D DEFICIENCY jkrdpb-nscptcve-rlaaqqb (CREON) 12,000-38,000 -60,000 unit cpDR Take 1 [...] Hemorrhoids, unspecified hemorrhoid type [K64.9] Order(s):AEROCHAMBER SPACER [[id number]] Order #: [id number] albuterol HFA (PROAIR HFA) 90 mcg/actuation inhaler2 Puffs every 4 hours as needed for Wheezing/Shortness of Breath. Take as directedDisp: 1 InhalerRfl: 0 XR CHEST 2V FRONTAL/LAT [[id number]] Order #: [id number] FUTURE Prescriptions as of 07/21/2017 Sig: ALBUTEROL [...] Take 1 capsule by mouth once * IXCBFN-NDPMKLLL-VEDCDZT 12,00* Take 1 capsule by mouth three* [...] ulcer disease with hemorrhage [K27.4] INVALID FOR*12/30/2016 Ojyoc-xd-cwsdtib kidney injury (HCC) [N17.9, N1*INVALID FOR*12/30/2016 More... [...] NURSING PROG Observed: 07/14/2017 Status: COMPLETED Source: [place] 3:07 PM [facility] REPOSITORY HNO ID: [id number] Author: Vicky Welsh) MONTY Araya Service: (none) Author Type: Registered Nurse Type: Nursing Progress Note Filed: 07/14/2017 4:19 PM Note Text: Nursing Progress Note Patient Name: Val Valverde Patient Location: [place] [address] Patient left unit by wheelchair with father by her side, pt and her father both verbalized an understanding an D/c instructions, patient left with all belongings its hand. This note was completed by: Vicky Araya RN CNDS Observed: 07/14/2017 Status: COMPLETED Source: [place] 1:56 PM [facility] REPOSITORY HNO ID: [id number] Author: Chuy Wharton Service: General Internal Medicine [...] planning with the resident Shanel Mcgarry MD [employer] [phone] ?? DISCHARGE SUMMARY PATIENT NAME: Val Valverde [...] capsule Refills: 1 Associated Diagnoses:Vitamin D deficiency zcvfux-vkgggaqg-lumycxy (CREON 12) 1 capsule Take 1 capsule [...] Time Provider Department Center 07/21/2017 11:00 AM [id number], JAMIE (LOAN SECRETARY) INTMWS [facility] KESHA 07/22/2017 10:30 AM [id number] [facility] 07/25/2017 9:30 AM [id number], AMY (LOAN SECRETARY) WOOB [facility] [place] 07/25/2017 10:45 AM [id number] MAMMO [facility] WSTR RAMAWS [facility] [place] 07/28/2017 10:30 AM [id number] YAHIR [facility] WSTR HEMAWS [facility] [place] 08/11/2017 10:30 AM [id number] YAHIR [facility] WSTR HEMAWS [facility] [place] 08/25/2017 10:45 AM [id number] Y[facility]IR [facility] WSTR HEMAWS [facility] [place] 09/08/2017 10:45 AM [id number] [facility] [place] 10/22/2017 4:20 PM [id number] TOMWS [facility] [place] TIME OF CARE (Use first blank if not applicable): TIME OF CARE: Discharge Management: I personally spent greater than 30 minutes involved in the discharge management of this patient. SIGNATURE: Chuy Wharton MD PATIENT NAME: Val Valverde DATE: July 14, 2017 TIME: 2:04 PM PAGER/CONTACT #: [phone] PLAN OF CARE Observed: 07/14/2017 Status: COMPLETED Source: [place] 1:08 PM [facility] REPOSITORY HNO ID: [id number] Author: Augustina Wagner (Auxiliary Plant Operator) Service: (none) Author Type: Bulb Farmworker Type: Plan of Care Filed: 07/14/2017 1:09 PM Note Text: WATER PUMP OPERATOR BEDSIDE DELIVERY SURVEY 1. Patient to use [facility] Bedside Delivery - NO staff communication 2. If fax, patient would like us to fax prescriptions to Pharmacy of choice a. Pharmacy: b. Location: c. Phone: 3. Insurance card on file - NO 4. Credit card for payment - NO Are you interested in bedside delivery of your medications? No CASE MANAGEM Observed: 07/14/2017 Status: COMPLETED Source: [place] 8:18 AM [facility] REPOSITORY HNO ID: [id number] Author: Martinez (Rn) MONTY Masterson Service: Care Management Author Type: Registered Nurse Type: Care Mgt Progress Note Filed: 07/14/2017 8:18 AM Note Text: CARE MANAGEMENT PROGRESS NOTE SERVICE DATE: 07/14/2017 SERVICE TIME: 814 LOS: 10 days Needs Prior to Discharge: Discharge Prescriptions;None cushion maker for outpatient PT,can be given printed script for this at time of discharge. OT skilled home. No other needs. SIGNATURE: Martinez Masterson RN PATIENT NAME: Val Valverde DATE: July 14, 2017 TIME: 8:18 AM PAGER/CONTACT #: [phone] BASIC METABOLIC PANL Collected: 07/14/2017 Status: F Source: [place] 3:39 AM [facility] REPOSITORY TYPE CODE TESTS RESULT OUT OF REFERENCE UNITS RANGE LAB GLU 74-99 mg/dL Low Glucose 72 Result Comment: The [place] Diabetes Association (ADA) provides guidance for cutoff [...] Standards of Medical Care in Diabetes 2016, [place] Diabetes Association. Diabetes Care. 2016.39(Suppl 1). LAB [...] actual GFR. Performed By: #### BMP #### [facility] [address], [place] [address] TACROLIMUS / [id number] Collected: 07/14/2017 Status: F Source: [place] 3:39 AM [facility] REPOSITORY TYPE CODE TESTS [...] Test performed by chemiluminescent immunoassay using Solares ASCENDANT MDX. Performed By: #### [id number] #### [facility] [address] [place], [place] [address] THERAPY NT Observed: 07/13/2017 Status: COMPLETED Source: [place] 1:32 PM [facility] REPOSITORY HNO ID: [id number] Author: Sanju Ruggiero (Ot/L) Lizzie Service: Occupational Therapy Author Type: Occupational Therapist Type: Therapy (PT/OT/Speech/Resp) Filed: 07/13/2017 1:48 PM Note Text: Occupational Therapy Evaluation SERVICE DATE: 07/13/2017 SERVICE TIME: 953 ROOM: [place] [address] Recommended Discharge Disposition: Home Anticipated Discharge Needs: [...] daily living (ADL) Interventions Provided: Evaluation;Therapeutic Activity (77341) $ Evaluation-Low (99597) Billed Units: 1 unit Therapeutic Activity (69365) Treatment Minutes: 23 2 units Skilled Intervention(s): [...] July 13, 2017 TIME: 1:32 PM PAGER: [phone] PROGRESS Observed: 07/13/2017 Status: COMPLETED Source: [place] 1:12 PM [facility] REPOSITORY HNO ID: [id number] Author: Opal Acevedo Service: General Internal Medicine Author Type: Physician Type: Progress Notes Filed: 07/13/2017 7:21 PM Note Text: GENERAL MEDICINE PROGRESS NOTE Weekdays 7 AM to 5 PM / Weekends 7 AM to 3 PM: Page [phone] (Resident) Weekdays 5 PM to 7 AM / Weekends 3 PM to 7 AM: Page [phone] ([place] Resident Advertising Analyst) SERVICE DATE: 07/13/2017 SERVICE TIME: 1:12 PM [...] 1 mg ORAL DAILY AT 6 PM rqzyzc-uejfulgy-gaixdak 1 capsule cap(s) (CREON 12) 1 capsule [...] last 168 hours. BMP: Recent Labs 07/13/17 05007/12/1744607/11/1792407/10/1742407/08/17223107/07/17234207/06/17 2258 GLUC 69* 68* 106* 85 93 [...] July 13, 2017 TIME: 1:12 PM Pager: [phone] [facility] STAFF PHYSICIAN NOTE OF PERSONAL INVOLVEMENT IN [...] 07/14/17. STAFF SIGNATURE: Opal Acevedo DO, MA, [facility], Department of Hospital Medicine Pager Number : [phone] 07/13/2017 7:21 PM CBC Collected: 07/13/2017 Status: F Source: [place] 5:05 AM [facility] REPOSITORY TYPE CODE TESTS [...] nRBC Performed By: #### CBC, BMP #### [facility] [address] [place], [place] [address] BASIC METABOLIC PANL Collected: 07/13/2017 Status: F Source: [place] 5:05 AM [facility] REPOSITORY TYPE CODE TESTS RESULT OUT OF REFERENCE UNITS RANGE LAB GLU 74-99 mg/dL Low Glucose 69 Result Comment: The [place] Diabetes Association (ADA) provides guidance for cutoff [...] Standards of Medical Care in Diabetes 2016, [place] Diabetes Association. Diabetes Care. 2016.39(Suppl 1). LAB [...] GFR. Performed By: #### CBC, BMP #### [facility] [address] [place], [place] [address] TACROLIMUS / [id number] Collected: 07/13/2017 Status: F Source: [place] 5:05 AM [facility] REPOSITORY TYPE CODE TESTS [...] Test performed by chemiluminescent immunoassay using Solares Restrooms Or Lounges Maid. Performed By: #### [id number] #### [facility] [address] [place], [place] [address] EMERGENCY DEPARTMENT Observed: 07/12/2017 Status: F Source: [place] SUMMARY 3:56 PM [facility] [place] [facility] Medical Records Department [address] [place] [address] Emergency Department Summary 07/12/17 1550 MR#: [id number] Acct: [id number] Name: VAL VALVERDE Rep #: [id number] : 1970 46 From: Osei Wade MD [...] depression. She receives her care at the [facility]. Physical Examination: Vital signs remarkable blood pressure [...] creatinine is 5.48. Baseline is 3.9 per [facility] records. Lactate elevated 2.9. Troponin is less [...] endorgan injury. Call was placed to her immigration coordinator who was informed that she would [...] of hypertension This note was generated with KirkeWebation software. It may contain incorrect words, spelling, and punctuation that were not noted in review of the chart prior to signing ED Disposition - Plan for ED Patient: Disposition: Acute Care Hospital [facility] Chief Complaint: Shortness of Breath What to do if you have Problems For any increased pain, shortness of breath, bleeding, nausea or vomiting, chest pain, or any unexpected problems, contact your Primary Care Provider. Call [facility] ([phone]) or report to the closest Emergency Room. Call 911 if necessary. 07/12/17 1556 <Electronically signed by Osei Wade MD> Date Osei Wade MD Cosigner Signature (If Indicated): Date CC: Wil To MD TYPE AND SCREEN Collected: 07/12/2017 Status: F Source: [place] 8:21 AM [facility] REPOSITORY TYPE CODE TESTS RESULT OUT OF REFERENCE UNITS RANGE LAB %ABR B ABO/RH(D) POSITIVE LAB % Antibody NEG Screen Performed By: #### TSCR #### [facility] [address] [place], [place] [address] PROGRESS Observed: 07/12/2017 Status: COMPLETED Source: [place] 7:15 AM [facility] REPOSITORY HNO ID: [id number] Author: Opal Acevedo Service: General Internal Medicine [...] 1 mg ORAL DAILY AT 6 PM nthatk-atqldyvu-gpefycn 1 capsule cap(s) (CREON 12) 1 capsule [...] week. (ONE CAPSULE) FOR VITAMIN D DEFICIENCY jzsolo-kxmbphiv-beghsba (CREON) 12,000-38,000 -60,000 unit cpDR Take 1 [...] the last 168 hours. BMP: Recent Labs 07/12/1744607/11/17 0907/10/1742407/08/17223107/07/17234207/06/17225707/06/17 0105 GLUC 68* 106* 85 93 87 [...] 2.1 2.2 2.3 2.1 HEPATIC: Recent Labs 07/10/17 04207/08/17223107/07/17234207/06/17225707/06/17 0105 ALKPHOS 114 112 114 86 62 [...] DATE: July 12, 2017 TIME: 7:15 AM [facility] Addendum - INTERVAL HPI: - No acute [...] Medicine Resident, PGY-2 July 12, 2017 Pager [phone] [facility] STAFF PHYSICIAN NOTE OF PERSONAL INVOLVEMENT IN [...] Department of Hospital Medicine Pager Number : [phone] 07/12/2017 10:19 PM BASIC METABOLIC PANL Collected: 07/12/2017 Status: F Source: [place] 4:47 AM [facility] REPOSITORY TYPE CODE TESTS RESULT OUT OF REFERENCE UNITS RANGE LAB GLU 74-99 mg/dL Low Glucose 68 Result Comment: The [place] Diabetes Association (ADA) provides guidance for cutoff [...] Standards of Medical Care in Diabetes 2016, [place] Diabetes Association. Diabetes Care. 2016.39(Suppl 1). LAB [...] GFR. Performed By: #### BMP, CBC #### [facility] [address], [place] [address] CBC Collected: 07/12/2017 Status: F Source: [place] 4:47 AM [facility] REPOSITORY TYPE CODE TESTS [...] nRBC Performed By: #### BMP, CBC #### [facility], [place] [address] TACROLIMUS / [id number] Collected: 07/12/2017 Status: F Source: [place] 4:47 AM [facility] REPOSITORY TYPE CODE TESTS [...] situation. Test performed by chemiluminescent immunoassay using Doodle Restrooms Or Lounges Maid. Performed By: #### [id number] #### [facility] [address] [place], [place] [address] THERAPY NT Observed: 07/11/2017 Status: COMPLETED Source: [place] 3:56 PM [facility] REPOSITORY HNO ID: [id number] Author: Quentin (Pt) Loren Service: Physical Therapy Author Type: Physical Therapist Type: Therapy (PT/OT/Speech/Resp) Filed: 07/11/2017 3:59 PM Note Text: Physical Therapy Evaluation SERVICE DATE: 07/11/2017 SERVICE TIME: 1110 to 1200 ROOM: [place] [address] Recommended Discharge Disposition: Outpatient Physical Therapy Anticipated [...] mobility-other;Muscle Weakness (generalized) Interventions Provided: Evaluation;Therapeutic Activity (54704);Gait Training (87470) $ Evaluation-Low (32319) Billed Units: 1 unit Therapeutic Activity (09198) Treatment Minutes: 12 1 unit Skilled Intervention(s): Instructed patient in log roll technique Instructed patient in supine to and from sit pushing with upper extremities to sit up Instruction in sit to and from stand technique with proper hand placement and body positioning at edge of bed/chair Gait Training (69178) Treatment Minutes: 11 1 unit Skilled Intervention(s): [...] 11, 2017 TIME: 3:56 PM PAGER/CONTACT #: [phone] CONSULT PROG Observed: 07/11/2017 Status: COMPLETED Source: [place] 3:07 PM [facility] REPOSITORY HNO ID: [id number] Author: Cayden Rodriguez Service: Transplant Author Type: Nurse Practitioner Type: Consult Progress Note Filed: 07/11/2017 3:17 PM Note Text: CONSULT PROGRESS NOTE NEPHROLOGY SERVICE SERVICE DATE: 07/11/2017 SERVICE TIME: 3:07 PM Subjective INTERVAL HISTORY: No acute events overnight Feeling better but weak Scr 3.2, stable, at baseline Poor appetite MEDICATIONS: Current hospital medications: melatonin 3 mg tab(s) 3 mg ORAL DAILY (7 PM) oqwcvh-fnwhdywu-kkamfvx 1 capsule cap(s) (CREON 12) 1 capsule [...] 2.1 2.2 2.3 Recent Labs 07/11/17 0907/10/175 07/08/17 2232 WBC 10.87 9.39 10.40 HB [...] July 11, 2017 TIME: 3:07 PM PAGER: [phone] PROGRESS Observed: 07/11/2017 Status: COMPLETED Source: [place] 10:30 AM [facility] REPOSITORY O ID: [id number] Author: Opal Acevedo Service: General Internal Medicine Author Type: Physician Type: Progress Notes Filed: 07/11/2017 9:10 PM Note Text: Progress Note For questions regarding this patient for today, please page [phone]. During weekends and overnight please call the [...] PGY-2 July 11, 2017 10:30 AM Pager [phone] [facility] STAFF PHYSICIAN NOTE OF PERSONAL INVOLVEMENT IN [...] Department of Hospital Medicine Pager Number : [phone] 07/11/2017 9:10 PM CBC Collected: 07/11/2017 Status: F Source: [place] 9:25 AM [facility] REPOSITORY TYPE CODE TESTS [...] <0.01 Performed By: #### CBC, BMP #### [facility] [address] [place] [id number] BASIC METABOLIC PANL Collected: 07/11/2017 Status: F Source: [place] 9:25 AM [facility] REPOSITORY TYPE CODE TESTS RESULT OUT OF REFERENCE UNITS RANGE LAB GLU 74-99 mg/dL High Glucose 106 Result Comment: The [place] Diabetes Association (ADA) provides guidance for cutoff [...] Standards of Medical Care in Diabetes 2016, [place] Diabetes Association. Diabetes Care. 2016.39(Suppl 1). LAB [...] GFR. Performed By: #### CBC, BMP #### [facility] [address] [place] [address] MAGNESIUM Collected: 07/11/2017 Status: F Source: [place] 3:39 AM [facility] REPOSITORY TYPE CODE TESTS RESULT OUT OF REFERENCE UNITS RANGE LAB MG 1.7-2.3 mg/dL Magnesium 1.8 Performed By: #### MG1, PHOS #### [facility] [address] [place] [id number] PHOSPHORUS Collected: 07/11/2017 Status: F Source: [place] 3:39 AM [facility] REPOSITORY TYPE CODE TESTS RESULT OUT OF REFERENCE UNITS RANGE LAB PHOS 2.7-4.8 mg/dL Phosphorus 4.5 Performed By: #### MG1, PHOS #### [facility] [address] [place] [address] TACROLIMUS / [id number] Collected: 07/11/2017 Status: F Source: [place] 3:39 AM [facility] REPOSITORY TYPE CODE TESTS [...] Test performed by chemiluminescent immunoassay using Sol[employer] Restrooms Or Lounges Maid. Performed By: #### [id number] #### [facility] [place], [place] [address] CONSULT Observed: 07/10/2017 Status: COMPLETED Source: [place] 11:00 AM [facility] REPOSITORY HNO ID: [id number] Author: Mihaela BoggsRn) MONTY Phillips Service: Wound Care Team Author Type: [...] patient, reconsult if wounds worsens. - HPI: [id number] Val Valverde is a 46 year old [...] (Active) Stage Injury DTI 07/10/2017 10:54 AM Restaurant Service Manager Related Pressure Injury No 07/10/2017 10:54 [...] found under the Get Images tab on [facility]. The purpose of the photo(s) is to optimize the patient's medical care and allow a visual aid to their wound evaluation and progress. ? Photo was taken of: coccyx Verbal consent was obtained: Yes. ? Photos are uploaded per the wound hospice care sales consultant (WCC) and may not be immediately available for viewing. Contact [facility] with questions Mihaela Phillips RN [facility] #[phone] Mihaela Phillips RN CASE MANAGEM Observed: 07/10/2017 Status: COMPLETED Source: [place] 9:00 AM [facility] REPOSITORY HNO ID: [id number] Author: Martinez (Rn) MONTY Masterson Service: Care Management Author Type: Registered Nurse Type: Care Mgt Progress Note Filed: 07/10/2017 9:01 AM Note Text: CARE MANAGEMENT PROGRESS NOTE SERVICE DATE: 07/10/2017 SERVICE TIME: 0900 LOS: 6 days Needs Prior to Discharge: To Be Determined From MICU. No needs currently. Needs TBD. SIGNATURE: Martinez Masterson RN PATIENT NAME: Val Valverde DATE: July 10, 2017 TIME: 9:00 AM PAGER/CONTACT #: [phone] COMP METABOLIC PANEL Collected: 07/10/2017 Status: F Source: [place] 4:25 AM [facility] REPOSITORY TYPE CODE TESTS [...] 74-99 mg/dL Glucose 85 Result Comment: The [place] Diabetes Association (ADA) provides guidance for cutoff [...] Standards of Medical Care in Diabetes 2016, [place] Diabetes Association. Diabetes Care. 2016.39(Suppl 1). LAB [...] By: #### CMP, MG1, PHOS, CBCDIF #### [facility] [address] [place] [address] MAGNESIUM Collected: 07/10/2017 Status: F Source: [place] 4:25 AM [facility] REPOSITORY TYPE CODE TESTS RESULT OUT OF REFERENCE UNITS RANGE LAB MG 1.7-2.3 mg/dL Magnesium 1.8 Performed By: #### CMP, MG1, PHOS, CBCDIF #### [facility] [address] [place], [place] [id number] PHOSPHORUS Collected: 07/10/2017 Status: F Source: [place] 4:25 AM [facility] REPOSITORY TYPE CODE TESTS RESULT OUT OF REFERENCE UNITS RANGE LAB PHOS 2.7-4.8 mg/dL Phosphorus 4.4 Performed By: #### CMP, MG1, PHOS, CBCDIF #### [facility] [address] [place], [place] [address] CBC AND DIFFERENTIAL Collected: 07/10/2017 Status: F Source: [place] 4:25 AM [facility] REPOSITORY TYPE CODE TESTS [...] Low Abs Lymph 0.43 LAB AMONO % Gilchrist% 5.0 LAB AAMONO <0.87 k/uL Abs Gilchrist 0.47 LAB AEOS % Eosin% 0.9 LAB AAEOS <0.46 k/uL Abs Eosin 0.08 LAB ABASO % Baso% 0.1 LAB AABASO <0.11 k/uL Abs Baso <0.03 LAB AUNRBC 0 /100 WBC NRBCs High 0.1 LAB ABNRBC <0.01 k/uL High Absolute nRBC 0.01 LAB DTYP DTYPE Auto Diff Performed By: #### CMP, MG1, PHOS, CBCDIF #### [facility] [address] [place], [place] [address] NURSING PROG Observed: 07/09/2017 Status: COMPLETED Source: [place] 7:34 PM [facility] REPOSITORY HNO ID: [id number] Author: Deloris (Rn) MONTY Maguire Service: (none) Author Type: Registered Nurse [...] OF CARE Observed: 07/09/2017 Status: COMPLETED Source: [place] 5:02 PM [facility] REPOSITORY HNO ID: [id number] Author: Rakan Wang Service: Critical Care Author [...] - JENNIFFER Orders signed and held in [facility]. SIGNATURE: Rakan Wang DO PATIENT NAME: Val Valverde DATE: July 09, 2017 TIME: 5:03 PM PAGER/CONTACT #: [phone] NURSING PROG Observed: 07/09/2017 Status: COMPLETED Source: [place] 4:39 PM [facility] REPOSITORY HNO ID: [id number] Author: Alexandria (Rn) MONTY Aj Service: Critical Care Author Type: Registered Nurse Type: Nursing Progress Note Filed: 07/09/2017 4:40 PM Note Text: Report called to G-[address] MONTY Puentes. Awaiting transport. NUTRITION Observed: 07/09/2017 Status: COMPLETED Source: [place] 4:22 PM [facility] REPOSITORY HNO ID: [id number] Author: Sarah Cravenmorgan [facility] Service: NST-Nutrition Support Team Author Type: Registered [...] needs: 1572 - 1661 kilocalories determined by Vermilion-St. 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 No 07/09/2017 12:00 [...] July 09, 2017 TIME: 4:23 PM PAGER: [phone] CONSULT PROG Observed: 07/09/2017 Status: COMPLETED Source: [place] 3:25 PM [facility] [place] REPOSITORY HNO ID: [id number] Author: Speedy Andre (Fel) Service: Nephrology Author [...] Speedy Andre MD, PGY4, Nephrology Fellow Pager [phone] July 09, 2017 3:25 PM Addendum 7:52 AM July 10, 2017 The patient transferred to the floors I resumed her tacrolimus at 1 mg BID Daily levels ordered Speedy Andre MD, PGY4, Nephrology Fellow Pager [phone] July 10, 2017 7:53 AM HISTORY PHYSICAL Observed: 07/09/2017 Status: COMPLETED Source: [place] 2:00 PM [facility] REPOSITORY HNO ID: [id number] Author: Opal Acevedo Service: General Internal Medicine [...] ceftriaxone and azithromycin. Patient was transferred to F 07/04 due to worsening kidney function and [...] week. (ONE CAPSULE) FOR VITAMIN D DEFICIENCY eifkjg-mzurjqpf-bwdyuif (CREON) 12,000-38,000 -60,000 unit cpDR Take 1 [...] tablet (DIATX ZN) 1 tablet OTHER DAILY elkwkd-ugvtkctn-lzuiqdb 10,440-39,150- 39,150 unit 1 tablet (VIOKACE) 1 [...] July 09, 2017 TIME: 2:00 PM PAGER: [phone] [facility] STAFF PHYSICIAN NOTE OF PERSONAL INVOLVEMENT IN [...] Department of Hospital Medicine Pager Number : [phone] 07/10/2017 8:47 PM PROGRESS Observed: 07/09/2017 Status: COMPLETED Source: [place] 12:30 PM [facility] REPOSITORY HNO ID: [id number] Author: Amy Purcell MD Service: Critical Care [...] mother) 02/21/10 now with CKD CMV -/+. 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 Plan: Holding [...] 09, 2017 TIME: 12:30 PM PAGER/CONTACT #: [phone] [facility] STAFF PHYSICIAN NOTE OF PERSONAL INVOLVEMENT IN [...] floor SIGNATURE: Amy Purcell MD [facility] PAGER:[phone] DATE of SERVICE: July 09, 2017 TIME of SERVICE: 12:59 PM COMP METABOLIC PANEL Collected: 07/08/2017 Status: F Source: [place] 10:32 PM [facility] REPOSITORY TYPE [...] 74-99 mg/dL Glucose 93 Result Comment: The [place] Diabetes Association (ADA) provides guidance for cutoff [...] Standards of Medical Care in Diabetes 2016, [place] Diabetes Association. Diabetes Care. 2016.39(Suppl 1). LAB [...] #### CMP, MG1, PHOS, FERR, CBCDIF #### [place] [address] MAGNESIUM Collected: 07/08/2017 Status: F Source: [place] [address] [place] [address] REPOSITORY TYPE CODE TESTS RESULT OUT OF REFERENCE UNITS RANGE LAB MG 1.7-2.3 mg/dL Magnesium 2.1 Performed By: #### CMP, MG1, PHOS, FERR, CBCDIF #### [place] [address] PHOSPHORUS Collected: 07/08/2017 Status: F Source: [place] 10:32 [facility] REPOSITORY TYPE CODE TESTS RESULT OUT OF REFERENCE UNITS RANGE LAB PHOS 2.7-4.8 mg/dL Phosphorus 4.5 Performed By: #### CMP, MG1, PHOS, FERR, CBCDIF #### [place] [address] FERRITIN Collected: 07/08/2017 Status: F Source: [place] [address] [place] [address] REPOSITORY TYPE CODE TESTS RESULT OUT OF REFERENCE UNITS RANGE LAB FERR 14.7-205.1 ng/mL High Ferritin 1726.0 Performed By: #### CMP, MG1, PHOS, FERR, CBCDIF #### [place] [address] CBC AND DIFFERENTIAL Collected: 07/08/2017 Status: F Source: [place] 10:32 [facility] REPOSITORY TYPE CODE TESTS RESULT OUT [...] Abs Lymph 0.27 Low LAB AMONO % Gilchrist% 2.6 LAB AAMONO <0.87 k/uL Abs Gilchrist 0.27 LAB AEOS % Eosin% 0.0 LAB AAEOS <0.46 k/uL Abs Eosin 0.00 LAB ABASO % Baso% 0.0 LAB AABASO <0.11 k/uL Abs Baso 0.00 LAB AMETA % Burna% 0.9 LAB ANIIMI Anisocytosis Present LAB POLIMI Polychromasia Slight LAB RCFIMI RBC Fragments Few LAB TARIMI Target Cells Few LAB PLTEST Platelet Estimate Platelet estimate decreased LAB DTYP DTYPE Manual Diff Performed By: #### CMP, MG1, PHOS, FERR, CBCDIF #### [facility] [address] [place] [id number] PROCEDURE Observed: 07/08/2017 Status: COMPLETED Source: [place] 4:15 PM [facility] REPOSITORY HNO ID: [id number] Author: Tiana Smith (Rn) MONTY Bowling Service: NST-Nutrition Support Team Author Type: Registered Nurse Type: Procedures Filed: 07/08/2017 4:17 PM Note Text: NST at bedside to place small bore feeding tube. Gave lidocaine to patient and attempt was still very painful. Pt request to stop. Patient has layne-en y, gastrojejunostomy previous EGD ulcers. Recommend she return to EGD For placement. CONSULT PROG Observed: 07/08/2017 Status: COMPLETED Source: [place] 1:03 PM [facility] REPOSITORY HNO ID: [id number] Author: Krystal Amador (Pharmacist) Service: Pharmacy Author [...] questions. Krystal Amador, PharmD (Critical Care Pharmacist) [id number] IRON AND TIBC Collected: 07/08/2017 Status: F Source: [place] 10:00 AM [facility] REPOSITORY TYPE CODE TESTS RESULT OUT OF REFERENCE UNITS RANGE LAB IRN 41-186 ug/dL Low Iron 21 LAB TIBC 232-386 ug/dL Low TIBC 84 LAB SAT 15-57 % Transferrin Saturatn 25 Performed By: #### IRON #### [facility] [address] [place], [place] [address] CONSULT PROG Observed: 07/08/2017 Status: COMPLETED Source: [place] 8:41 AM [facility] REPOSITORY HNO ID: [id number] Author: Andrey Hernandez Service: Nephrology Author Type: [...] Speedy Andre MD, PGY4, Nephrology Fellow Pager [phone] July 08, 2017 8:41 AM I have seen and evaluated the patient. I have reviewed the History, Exam, and Plan as documented by the resident/fellow. The following reflect my findings: agree fully with findings and plan. Extubated, on 2L n/c. Making urine, scr lower. Cont expectant mgmt off IS except pred. 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 Plan: Holding [...] tiD JENNIFFER (acute kidney injury) ([facility]) 07/05/2017 - Present Overview JENNIFFER on [...] medications Respiratory failure with hypoxia ([facility]) 07/05/2017 - Present Overview Patient has [...] 08, 2017 TIME: 7:53 AM PAGER/CONTACT #: [phone] [facility] STAFF PHYSICIAN NOTE OF PERSONAL INVOLVEMENT IN [...] feeding SIGNATURE: Amy Purcell MD [facility] PAGER:[phone] DATE of SERVICE: July 08, 2017 TIME of SERVICE: 1:43 PM CITRATED PLT COUNT Collected: 07/08/2017 Status: F Source: [place] 6:46 AM [facility] [facility] REPOSITORY TYPE CODE TESTS RESULT OUT OF REFERENCE UNITS RANGE LAB PLTCIT 150-400 K/uL Low Citrated Plt 22 Count Result Comment: Result checked and verified No clot detected. Reviewed Sodium Citrate Sample. Performed By: #### CITPLT, STREV #### [facility] [address] [place], [place] [address] STAFF REV W CBCDIF Collected: 07/08/2017 Status: F Source: [place] 6:46 AM [facility] REPOSITORY TYPE CODE TESTS [...] Abs Lymph Low 0.16 LAB AMONO % Gilchrist% 2.0 LAB AAMONO <0.87 k/uL Abs Gilchrist 0.32 LAB AEOS % Eosin% 1.0 LAB [...] Pathologist Reviewed by Julian Kelly M.D., Ph.D ([id number]) Performed By: #### CITPLT, STREV #### [facility] [address] [place] [address] NURSING PROG Observed: 07/08/2017 Status: COMPLETED Source: [place] 4:00 AM [facility] REPOSITORY HNO ID: [id number] Author: Lynnette (Rn) MONTY Mc Service: (none) Author Type: Registered Nurse Type: Nursing Progress Note Filed: 07/08/2017 4:03 AM Note Text: Nursing Progress: Topic: RESTRAINT NON-VIOLENT PATIENT NAME: Val Valverde PATIENT LOCATION: [place] [address]/[place] [address] The patient demonstrates Attempting to Remove Medical [...] RN VANCOMYCIN Collected: 07/07/2017 Status: F Source: [place] 11:43 PM [facility] REPOSITORY TYPE CODE TESTS RESULT OUT OF REFERENCE UNITS RANGE LAB VANCRA 5.0-20.0 ug/mL High Vancomycin 25.6 Result Comment: Reference ranges and high/low indicator flags are provided as general guidelines only. The treating physician must determine appropriate target levels/dosing based on the specific clinical situation. Performed By: #### VANCRA, CMP, MG1, PHOS, LD6, CBCDIF #### [facility] [address] [place] [id number] COMP METABOLIC PANEL Collected: 07/07/2017 Status: F Source: [place] 11:43 PM [facility] REPOSITORY TYPE CODE TESTS [...] 74-99 mg/dL Glucose 87 Result Comment: The [place] Diabetes Association (ADA) provides guidance for cutoff [...] Standards of Medical Care in Diabetes 2016, [place] Diabetes Association. Diabetes Care. 2016.39(Suppl 1). LAB [...] DEVI, CMP, MG1, PHOS, LD6, CBCDIF #### [facility] [address] [place] [address] MAGNESIUM Collected: 07/07/2017 Status: F Source: [place] 11:43 PM [facility] REPOSITORY TYPE CODE TESTS RESULT OUT OF REFERENCE UNITS RANGE LAB MG 1.7-2.3 mg/dL Magnesium 2.2 Performed By: #### DEVI, CMP, MG1, PHOS, LD6, CBCDIF #### [facility] [address] [place], [place] [address] PHOSPHORUS Collected: 07/07/2017 Status: F Source: [place] 11:43 PM [facility] REPOSITORY TYPE CODE TESTS RESULT OUT OF REFERENCE UNITS RANGE LAB PHOS 2.7-4.8 mg/dL Phosphorus 4.0 Performed By: #### DEVI, CMP, MG1, PHOS, LD6, CBCDIF #### [facility] [address] [place], [place] [address] LD Collected: 07/07/2017 Status: F Source: [facility] 11:43 PM [facility] REPOSITORY TYPE CODE TESTS RESULT OUT OF RANGE REFERENCE UNITS LAB LD 135-214 U/L High LD 345 Performed By: #### DEVI, CMP, MG1, PHOS, LD6, CBCDIF #### [facility] [address] [place], [place] [address] CBC AND DIFFERENTIAL Collected: 07/07/2017 Status: F Source: [place] 11:43 PM [facility] REPOSITORY TYPE CODE TESTS [...] Abs Lymph 0.41 Low LAB AMONO % Gilchrist% 0.9 LAB AAMONO <0.87 k/uL Abs Gilchrist 0.14 LAB AEOS % Eosin% 0.0 LAB AAEOS <0.46 k/uL Abs Eosin 0.00 LAB ABASO % Baso% 0.0 LAB AABASO <0.11 k/uL Abs Baso 0.00 LAB ANIIMI Anisocytosis Present LAB RCFIMI RBC Fragments Few LAB PLTEST Platelet Estimate Platelet estimate decreased LAB DTYP DTYPE Manual Diff Performed By: #### VANCRA, CMP, MG1, PHOS, LD6, CBCDIF #### [facility] [address] [place], [place] [address] XR ABDOMEN 1V SUPINE Observed: 07/07/2017 Status: F Source: [place] 8:17 PM [facility] REPOSITORY * * *Final Report* [...] view: Lower pelvis is excluded from the elrvk-dc-okdb. Lines and tubes: Nasogastric tube tip lies in the left upper abdomen adjacent to suture material, likely within the residual gastric body just proximal to the GJ junction. Small amount of enteric contrast within the gastric body. Bowel: Small bowel loops are normal caliber with no wall thickening. Other: Pelvic surgical clips present. Family Medicine Physician Assistant[facility] Transcribe Date/Time: Jul 07 2017 11:51P Dictated by : CORTNEY BRYAN MD This examination was interpreted and the report reviewed and electronically signed by: CORTNEY BRYAN MD on Jul 07 2017 11:55PM EST [id number] Collected: 07/07/2017 Status: F Source: [place] 4:22 PM [facility] REPOSITORY TYPE CODE TESTS RESULT OUT OF REFERENCE UNITS RANGE LAB FIBCT 200-400 mg/dL High Fibrinogen 704 Result Comment: Sample checked for a clot. Performed By: #### FIBCT, HAPTO, PLATF4 #### [facility] [address] [place] [id number] HAPTOGLOBIN Collected: 07/07/2017 Status: F Source: [place] 4:22 PM [facility] REPOSITORY TYPE CODE TESTS RESULT OUT OF REFERENCE UNITS RANGE LAB HAPTO 31-238 mg/dL Haptoglobin 175 Performed By: #### FIBCT, HAPTO, PLATF4 #### [facility] [address] [place] [id number] ANTI PLT FACTOR 4 Collected: 07/07/2017 Status: F Source: [place] AB 4:22 PM [facility] REPOSITORY TYPE CODE TESTS [...] Performed By: #### FIBCT, HAPTO, PLATF4 #### [place] [address] [place] [address] URINALYSIS WITH Collected: 07/07/2017 Status: F Source: [place] MICROSCOPIC 3:07 PM [facility] REPOSITORY TYPE CODE TESTS RESULT OUT OF RANGE REFERENCE UNITS LAB UCOL Yellow Color Yellow LAB [facility] Clear Clarity Clear LAB UGLUC Negative mg/dL Glucose, Urine Negative LAB UBIL Negative Bilirubin, Urine Negative LAB UKET Negative Ketones, Urine Negative LAB USPG 1.005-1.030 Specific [place], Ur 1.005 LAB UHGB Negative Abnormal Hemoglobin/Blood, [...] RBC 0-3 Performed By: #### UAWMIC #### [facility] [address] [place], [place] [address] CONSULT PROG Observed: 07/07/2017 Status: COMPLETED Source: [place] 1:59 PM [facility] REPOSITORY HNO ID: [id number] Author: Christiano Ryan (Pharmacist) Service: Pharmacy Author [...] please contact Christiano Ryan PharmDiamond at pager [phone]. Age: [age] year old Allergies: ALLERGIES Allergen [...] Cason PROGRESS Observed: 07/07/2017 Status: COMPLETED Source: [place] 1:15 PM [facility] REPOSITORY O ID: [id number] Author: Amy Purcell MD Service: Critical Care [...] mother) 02/21/10 now with CKD CMV -/+. 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 Plan: Holding [...] dose medications = Respiratory failure with hypoxia ([facility]) 07/05/2017 - Present Overview Patient has [...] 07, 2017 TIME: 1:15 PM PAGER/CONTACT #: [phone] [facility] STAFF PHYSICIAN NOTE OF PERSONAL INVOLVEMENT IN [...] minutes. SIGNATURE: Amy Purcell MD [facility] PAGER:[phone] DATE of SERVICE: July 07, 2017 TIME of SERVICE: 2:05 PM 12 LEAD ELECTROCARDIOGRAM Observed: 07/07/2017 Status: F Source: [place] 1:00 PM [facility] REPOSITORY [facility] Cardiovascular Services [address] [place] [address] 12 Lead EKG 07/03/17 1211 MR#: [id number] Acct: [id number] Name: VAL VALVERDE Rep #: [id number] : 1970 46 From: Humberto Fraser MD [...] Abnormal ECG Confirmed by HUMBERTO FRASER MD ([id number]), material expeditor HUANG BRENNAN ([id number]) on 07/07/2017 12:59:58 PM Referred By: JESSIE Confirmed By:HUMBERTO FRASER MD 07/07/17 1300 Date Humberto Fraser MD CC: Wil To MD; Osei Wade MD Signed CONSULT PROG Observed: 07/07/2017 Status: COMPLETED Source: [place] 11:16 AM [facility] REPOSITORY HNO ID: [id number] Author: Andrey Hernandez Service: Nephrology Author Type: [...] Speedy Andre MD, PGY4, Nephrology Fellow Pager [phone] July 07, 2017 2:43 PM I have [...] / [id number] Collected: 07/07/2017 Status: F Source: [place] 10:47 AM [facility] REPOSITORY TYPE CODE TESTS [...] situation. Test performed by chemiluminescent immunoassay using [employer]. Performed By: #### FK506 #### [facility] [address] [place], [place] [address] CASE MGT INIT Observed: 07/07/2017 Status: COMPLETED Source: [place] ZARA 9:50 AM [facility] REPOSITORY HNO ID: [id number] Author: Bryant Welsh) MONTY Blackburn Service: Care Management Author Type: Registered Nurse Type: Care Mgt Initial Assessment Filed: 07/07/2017 2:02 PM Note Text: CARE MANAGEMENT: ASSESSMENT AND DISCHARGE PLAN SERVICE DATE: 07/07/2017 SERVICE TIME: 9:50 AM PRIMARY CARE PHYSICIAN: WIL TO MD ADMISSION STATUS: Inpatient POTENTIAL DISCHARGE PLANS Home Home Care Manager Call Center [facility]/Intermediate Care Facility To Be Determined 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 Stated Goals: TBD Intubated and Sedated / Remainder of information obtained from chart review and spouse Needs Prior to Discharge: To Be Determined Health Insurance: [employer] Living Arrangement: Home Lives With: Family Financial Resources: Unemployed Primary Contact: Extended Emergency Contact Information Primary Emergency Contact: Medardo Valverde Address: [address] [place] [id number] Mobile Relation: Spouse Supportive: Yes Other Important [...] 07, 2017 TIME: 9:50 AM PAGER/CONTACT #: [phone] ALLIED HEALTH Observed: 07/07/2017 Status: COMPLETED Source: [place] 7:55 AM [facility] REPOSITORY HNO ID: [id number] Author: Rhonda Cagle RN Service: Infection Prevention [...] 2017 TIME: 7:56 AM PAGER/CONTACT #: [phone] Infection Prevention after hours/weekend pager: [phone] NURSING PROG Observed: 07/07/2017 Status: COMPLETED Source: [place] 4:00 AM [facility] REPOSITORY HNO ID: [id number] Author: Marilou Weiss RN Service: Nursing Author Type: Registered Nurse Type: Nursing Progress Note Filed: 07/07/2017 4:18 AM Note Text: Nursing Progress: Topic: RESTRAINT NON-VIOLENT PATIENT NAME: Val Valverde PATIENT LOCATION: [place] [address] The patient demonstrates Attempting to Remove Medical [...] METABOLIC PANEL Collected: 07/06/2017 Status: F Source: [place] 10:58 PM [facility] REPOSITORY TYPE CODE TESTS [...] mg/dL Glucose High 178 Result Comment: The [place] Diabetes Association (ADA) provides guidance for cutoff [...] Standards of Medical Care in Diabetes 2016, [place] Diabetes Association. Diabetes Care. 2016.39(Suppl 1). LAB [...] CMP, MG1, PHOS, TRIG, VANCRA, CBCDIF #### [facility] [address] [place] [address] MAGNESIUM Collected: 07/06/2017 Status: F Source: [place] 10:58 PM [facility] REPOSITORY TYPE CODE TESTS RESULT OUT OF REFERENCE UNITS RANGE LAB MG 1.7-2.3 mg/dL Magnesium 2.3 Performed By: #### CMP, MG1, PHOS, TRIG, VANCRA, CBCDIF #### [facility] [address] [place] [phone] PHOSPHORUS Collected: 07/06/2017 Status: F Source: [place] 10:58 PM [facility] REPOSITORY TYPE CODE TESTS RESULT OUT OF REFERENCE UNITS RANGE LAB PHOS 2.7-4.8 mg/dL Phosphorus 4.0 Performed By: #### CMP, MG1, PHOS, TRIG, VANCRA, CBCDIF #### [facility] [address] [place] [address] TRIGLYCERIDE Collected: 07/06/2017 Status: F Source: [place] 10:58 PM [facility] REPOSITORY TYPE CODE TESTS RESULT OUT OF REFERENCE UNITS RANGE LAB TRIGLY <150 mg/dL Triglyceride High 157 Result Comment: <150 mg/dL, Normal 150-199 mg/dL, Borderline high 200-499 mg/dL, High >499 mg/dL, Very high Reference: 1. National Cholesterol Education Program ATP III Guideline At-A-Glance Quick Desk Reference: National Heart, Lung, and Blood [place]. National Institutes of Health. 2001: [facility] Publication No. 01-3305. LAB FT hrs Fasting Unknown Time Performed By: #### CMP, MG1, PHOS, TRIG, VANCRA, CBCDIF #### [facility] [address] [place], [place] [address] VANCOMYCIN Collected: 07/06/2017 Status: F Source: [place] 10:58 PM [facility] REPOSITORY TYPE CODE TESTS RESULT OUT OF REFERENCE UNITS RANGE LAB VANCRA 5.0-20.0 ug/mL High Vancomycin 31.7 Result Comment: Reference ranges and high/low indicator flags are provided as general guidelines only. The treating physician must determine appropriate target levels/dosing based on the specific clinical situation. Performed By: #### CMP, MG1, PHOS, TRIG, VANCRA, CBCDIF #### [facility] [address] [place], [place] [address] CBC AND DIFFERENTIAL Collected: 07/06/2017 Status: F Source: [place] 10:58 PM [facility] REPOSITORY TYPE CODE TESTS [...] Abs Lymph 0.11 Low LAB AMONO % Gilchrist% 0.9 LAB AAMONO <0.87 k/uL Abs Gilchrist 0.11 LAB AEOS % Eosin% 0.0 LAB [...] CMP, MG1, PHOS, TRIG, VANCRA, CBCDIF #### [facility] [address] [place], [place] [address] KIDNEY TRANSPLANT Observed: 07/06/2017 Status: F Source: [place] 4:03 PM [facility] REPOSITORY * * *Final Report* * * DATE OF EXAM: Jul 06 2017 4:03PM [address] KIDNEY TRANSPLANT / PROCEDURE REASON: JENNIFFER [...] VASCULATURE. NO HYDRONEPHROSIS OR PERINEPHRIC FLUID COLLECTION. Family Medicine Physician Assistant: PSCB Transcribe Date/Time: Jul 06 2017 4:54P Dictated by : EDISON ELDER MD This examination was interpreted and the report reviewed and electronically signed by: KAT PAYTON MD on Jul 06 2017 5:24PM EST [id number] NUTRITION Observed: 07/06/2017 Status: COMPLETED Source: [place] 1:38 PM [facility] REPOSITORY HNO ID: [id number] Author: Elizabeth Baumann Service: NST-Nutrition Support Team Author Type: Registered Dietitian Type: Nutrition Filed: 07/06/2017 5:02 PM Note Text: NUTRITION THERAPY INITIAL ASSESSMENT SERVICE DATE: 07/06/2017 SERVICE TIME: 2:!3 PM RECOMMENDED MALNUTRITION DIAGNOSIS: SEVERE PROTEIN-CALORIE MALNUTRITION In the context of Acute Illness or Injury based on: Subcutaneous Fat Loss: Severe Loss Muscle Loss Severe Loss NUTRITION CARE PLAN: Intervention: 1. Continue tube feeding: [email or web address] Renal at 35 ml/hr (840 ml total). [...] Initial Assess/15 min 4 units SIGNATURE: Elizabeth CaseyINDU sarmiento PATIENT NAME: Val Valverde DATE: July 06, 2017 TIME: 1:38 PM PAGER: [phone] Observed: 07/06/2017 Status: F Source: [place] RESPIRATORY CULT/STAIN 12:56 PM [facility] REPOSITORY Sp. Request/Comment: - SCORED BY HM Smear Result - Rare Yeast --> ABNORMAL ALERT Many Polymorphonuclear leukocytes Moderate Mononuclear cells Culture Result - Rare Staphylococcus aureus --> ABNORMAL ALERT Insignificant colony count. No further workup. --> ABNORMAL ALERT Rare Normal respiratory conner present Performed By: #### RCULST #### [place] [address] [place] [id number] M. PNEUMONIAE PCR Collected: 07/06/2017 Status: F Source: [place] 12:56 PM [facility] REPOSITORY TYPE CODE TESTS [...] PCR Test developed and characteristics determined by [facility]. See Compliance Statement B: [employer]/ Performed by [facility], [address] [place] [id number] [email or web address], Jeff Cabral MD, Lab. Director Performed By: #### MYCPCR #### [facility] [address] [place] [address] [phone] [place] [address] CMV DNA QUANT BY Collected: 07/06/2017 Status: F Source: [place] PCR 10:30 AM [facility] REPOSITORY TYPE CODE TESTS RESULT OUT OF REFERENCE UNITS RANGE LAB CMVIU IU/mL CMV CMV DNA not DNA (IU/mL) detected by PCR. Result Comment: Linear Range 137 - 9,100,000 IU/mL (2.14 - 6.96 log IU/mL) Reference Range: Negative for CMV DNA Performed By: #### CMVQNT #### [place] [address] [place], [place] [address] CONSULT Observed: 07/06/2017 Status: COMPLETED Source: [place] 9:47 AM [facility] [place] REPOSITORY HNO ID: [id number] Author: Andrey Hernandez Service: Nephrology Author Type: [...] ulceration Recurrent GI bleeding She presented from [facility] with fever, chest pain and shortness [...] capsule Rfl: 1 Unknown at Unknown time egvuvn-mhemkrxb-wepaaea (CREON) 12,000-38,000 -60,000 unit cpDR Take 1 [...] tab(s) (NORVASC) 2.5 mg ORAL/FEEDING TUBE DAILY bpkmys-hjwxszzs-zadpscj 10,440-39,150- 39,150 unit 1 tablet (VIOKACE) 1 [...] Speedy Andre MD, PGY4, Nephrology Fellow Pager [phone] July 05, 2017 10:05 PM [facility] STAFF PHYSICIAN NOTE OF PERSONAL INVOLVEMENT IN [...] ARDS physiology probably best to keep on terrazzo grinder side. Obligate volume intake will likely be [...] as above SIGNATURE: Andrey Hernandez MD PAGER: [phone] DATE of SERVICE: July 06, 2017 TIME of SERVICE: 9:46 AM XR CHEST 1V FRONTAL Observed: 07/06/2017 Status: F Source: [facility] 9:39 AM [facility] REPOSITORY * * *Final Report* [...] No pneumothorax. Cardiomediastinal silhouette: Stable cardiac silhouette. Family Medicine Physician Assistant: NELIA Transcribe Date/Time: Jul 06 2017 3:41P Dictated by : CHRISTIANO BURRELL MD This examination was interpreted and the report reviewed and electronically signed by: CHRISTIANO BURRELL MD on Jul 06 2017 3:42PM EST [id number] NURSING PROG Observed: 07/06/2017 Status: COMPLETED Source: [place] 9:10 AM [facility] REPOSITORY HNO ID: [id number] Author: María Elena (Rn) MONTY Contreras Service: (none) Author Type: Registered Nurse Type: Nursing Progress Note Filed: 07/06/2017 2:45 PM Note Text: Nursing Progress: Topic: RESTRAINT NON-VIOLENT PATIENT NAME: Val Valverde PATIENT LOCATION: [place] [address] [address] The patient demonstrates Attempting to Remove Medical [...] RN PROGRESS Observed: 07/06/2017 Status: COMPLETED Source: [place] 7:00 AM [facility] REPOSITORY O ID: [id number] Author: Jefry Martinez Service: Critical Care Author Type: Resident Type: Progress Notes Filed: 07/06/2017 10:05 AM Note Text: Attestation signed by Alejo Reid at 07/06/2017 3:18 PM [facility] STAFF PHYSICIAN NOTE OF PERSONAL INVOLVEMENT IN [...] critical care services: 35 minutes. SIGNATURE: Alejo Reid MD [facility] PAGER:[phone] DATE of SERVICE: 07/06/2017 TIME of SERVICE: [...] mother) 02/21/10 now with CKD CMV -/+. 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 Plan: Holding [...] Yes Signature: Jefry Martinez PGY-3 IM pager: [phone] July 06, 2017 9:29 AM [facility] / [id number] Collected: 07/06/2017 Status: F Source: [place] 4:48 AM [facility] REPOSITORY TYPE CODE TESTS [...] Test performed by chemiluminescent immunoassay using [employer]. Performed By: #### FK506 #### [facility] [address] [place] [phone] MAGNESIUM Collected: 07/06/2017 Status: F Source: [place] 1:05 AM [facility] REPOSITORY TYPE CODE TESTS RESULT OUT OF REFERENCE UNITS RANGE LAB MG 1.7-2.3 mg/dL Magnesium 2.1 Performed By: #### MG1, PHOS, CMP, CBCDIF #### [facility] [address] [place], [place] [address] PHOSPHORUS Collected: 07/06/2017 Status: F Source: [place] 1:05 AM [facility] REPOSITORY TYPE CODE TESTS RESULT OUT OF REFERENCE UNITS RANGE LAB PHOS 2.7-4.8 mg/dL Phosphorus 4.8 Performed By: #### MG1, PHOS, CMP, CBCDIF #### [facility] [address] [place], [place] [address] COMP METABOLIC PANEL Collected: 07/06/2017 Status: F Source: [place] 1:05 AM [facility] REPOSITORY TYPE CODE TESTS [...] 74-99 mg/dL Glucose 78 Result Comment: The [place] Diabetes Association (ADA) provides guidance for cutoff [...] Standards of Medical Care in Diabetes 2016, [place] Diabetes Association. Diabetes Care. 2016.39(Suppl 1). LAB [...] By: #### MG1, PHOS, CMP, CBCDIF #### [facility] [address] [place], [place] [address] CBC AND DIFFERENTIAL Collected: 07/06/2017 Status: F Source: [place] 1:05 [facility] REPOSITORY TYPE CODE TESTS RESULT [...] Abs Lymph 0.12 Low LAB AMONO % Gilchrist% 0.9 LAB AAMONO <0.87 k/uL Abs Gilchrist 0.12 LAB AEOS % Eosin% 0.0 LAB AAEOS <0.46 k/uL Abs Eosin 0.00 LAB ABASO % Baso% 0.0 LAB AABASO <0.11 k/uL Abs Baso 0.00 LAB ANIIMI Anisocytosis Present LAB OVAIMI Ovalocytes Few LAB POLIMI Polychromasia Slight LAB PLTEST Platelet Estimate Platelet estimate decreased LAB DTYP DTYPE Manual Diff Performed By: #### MG1, PHOS, CMP, CBCDIF #### [facility] [address] [place] [phone] GASA + ALL Collected: 07/05/2017 Status: F Source: [place] FOR 9:41 PM [facility] USE ONLY REPOSITORY TYPE CODE TESTS RESULT [...] Lactate 0.6 Performed By: #### ALLBG #### [facility] [address] [place], [place] [id number] CREATININE,URINE,RAN Collected: Status: F Source: [place] 07/05/2017 6:30 PM [facility] REPOSITORY TYPE CODE TESTS RESULT OUT OF RANGE REFERENCE UNITS LAB UCRR 20-300 mg/dL 30.4 Creatinine,U rine,Ran Performed By: #### UCRR, UNAR, LEGUAG #### [facility] [address] [place], [place] [address] SODIUM,URINE,RANDOM Collected: Status: F Source: [place] 07/05/2017 6:30 PM [facility] REPOSITORY TYPE CODE TESTS RESULT OUT OF RANGE REFERENCE UNITS LAB UNAR 14-216 mmol/L 20 Sodium,Urine ,Random Performed By: #### THOMPSON, UNAR, LEGUAG #### [facility] [address] [place], [place] [id number] LEGIONELLA URINE AG Collected: 07/05/2017 Status: F Source: [place] 6:30 PM [facility] REPOSITORY TYPE CODE TESTS RESULT OUT OF REFERENCE UNITS RANGE LAB LEGUAG Negative Legionella Urine Negative Ag Result Comment: Negative for L. pneumophila serogroup 1 antigen in urine, suggesting no recent or current infection. Legionnaires disease cannot be ruled out since other serogroups and species may also cause disease. Performed By: #### UCRR, UNAR, LEGUAG #### [facility] [address] [place], [place] [id number] GASA + ALL Collected: 07/05/2017 Status: F Source: [place] FOR 4:33 PM [facility] RADIANCE USE ONLY REPOSITORY TYPE [...] Comment: 60% Performed By: #### ALLBG #### [facility] [address] [place], [place] [address] NURSING PROG Observed: 07/05/2017 Status: COMPLETED Source: [place] 4:00 PM [facility] REPOSITORY HNO ID: [id number] Author: Opal (Rn) MONTY Wakefield Service: (none) Author Type: Registered Nurse Type: Nursing Progress Note Filed: 07/05/2017 4:48 PM Note Text: Nursing Progress: Topic: RESTRAINT NON-VIOLENT PATIENT NAME: Val Valverde PATIENT LOCATION: [place] [address] The patient demonstrates Attempting to Remove Medical [...] F Source: [facility] 2:27 PM [facility] REPOSITORY * * *Final Report* [...] Multiple surgical clips in the upper abdomen. Family Medicine Physician Assistant: NELIA Transcribe Date/Time: Jul 05 2017 3:12P Dictated by : DEBBY FRY MD This examination was interpreted and the report reviewed and electronically signed by: DEBBY FRY MD on Jul 05 2017 3:13PM EST [id number] PROCEDURE Observed: 07/05/2017 Status: COMPLETED Source: [place] 2:15 PM [facility] REPOSITORY HNO ID: [id number] Author: Mee Linares (Fel) Service: Critical Care Author Type: Fellow Type: Procedures Filed: 07/05/2017 2:21 PM Note Text: Attestation signed by Alejo Reid at 07/05/2017 3:30 PM I was present and supervised from start to finish BEDSIDE PROCEDURE NOTE PROCEDURE DATE: July 05, 2017 PROCEDURE START TIME: 1:30 PM PRIMARY PROCEDURALIST: Mee Linares MD ELECTRIC WHEELCHAIR REPAIRER(S): None INFORMED CONSENT: Informed Consent obtained and [...] 05, 2017 TIME: 2:15 PM PAGER/CONTACT #: [phone] GASA + ALL Collected: 07/05/2017 Status: F Source: [place] FOR 1:33 PM [facility] RADIANCE USE ONLY REPOSITORY TYPE [...] Time, Art Performed By: #### ALLBG #### [facility] [address] [place], [place] [address] NURSING PROG Observed: 07/05/2017 Status: COMPLETED Source: [place] 1:30 PM [facility] REPOSITORY HNO ID: [id number] Author: Erica (Rn) MONTY Murrieta Service: (none) Author Type: Registered Nurse Type: Nursing Progress Note Filed: 07/05/2017 1:46 PM Note Text: Nursing Progress Note Patient Name: Vla Valverde Patient Location: 62 005/[id number] 1334: Preparing for intubation. 100% non-rebreather. [...] CONSULT PROG Observed: 07/05/2017 Status: COMPLETED Source: [place] 9:25 AM [facility] REPOSITORY [facility] ID: [id number] Author: Krystal Amador (Pharmacist) Service: Pharmacy Author [...] questions, please contact Krystal Amador (Pharmacist) at [phone]. Age: [age] year old Allergies: ALLERGIES Allergen [...] 13.8 Krystal Amador PharmD (Critical Care Pharmacist) [id number] PLAN OF CARE Observed: 07/05/2017 Status: COMPLETED Source: [place] 8:33 AM [facility] REPOSITORY O ID: [id number] Author: Shari Mcdaniels Service: Critical Care Author Type: Resident Type: Plan of Care Filed: 07/05/2017 9:15 AM Note Text: Attestation signed by Alejo Reid at 07/05/2017 2:12 PM [facility] STAFF PHYSICIAN NOTE OF PERSONAL INVOLVEMENT IN [...] critical care services: 35 minutes. SIGNATURE: Alejo Reid MD [facility] PAGER:[phone] DATE of SERVICE: 07/05/2017 TIME of SERVICE: 11 PM Plan of care Patient will be taken care of by the [facility]U [place] team [employer]ire Buffer: Shari Mcdaniels 46F PMHx gastric cancer s/p [...] Shari Mcdaniels MD PGY-1, Internal Medicine Pager [phone] July 05, 2017 8:53 AM [facility] PCR Collected: 07/05/2017 Status: F Source: [place] 6:15 AM [facility] REPOSITORY TYPE CODE TESTS RESULT OUT OF REFERENCE UNITS RANGE LAB [facility] Nasal S aureus Spec Source LAB MRSRES Negative for MRSA MRSA by PCR. PCR LAB SARES Negative for Staph Staphylococcus aureus PCR aureus by PCR. Performed By: #### SAPCR #### [facility] [address] [place], [place] [address] HISTORY PHYSICAL Observed: 07/05/2017 Status: COMPLETED Source: [place] 5:07 AM [facility] REPOSITORY HNO ID: [id number] Author: Domi Dasilva Service: Critical Care Author [...] injection and clipping. Today she presented from [facility] with fever, chest pain and shortness [...] stomach stomach cancer - Malnutrition (HCC) - [facility] - PAST MEDICAL HISTORY OF 2001 Blood [...] capsule Rfl: 1 Unknown at Unknown time mvnanr-fzbhieen-bpszjem (CREON) 12,000-38,000 -60,000 unit cpDR Take 1 [...] 0300) Resp: (!) 34 (07/05/17299) BP: 122/76 (07/05/17299) MAP Non Invasive (Mean Arterial Pressure): 94 (07/05/17 0300) SpO2: 96 % (07/05/17 030) Pain Score: 6/10 (02/17/18 0300) Diet DIET NPO Infusion Medications Lines, Drains, and Airways Line Peripheral Admission to Hospital Left Antecubital 20 Gauge -- days Peripheral Admission to Hospital Right Forearm 22 Gauge -- days Peripheral 07/04/170 Left Forearm 18 Gauge less than 1 [...] mother) 02/21/10 now with CKD CMV -/+. 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 Current Assessment [...] BPH - Consider Transplant nephrology consult. - Pallavibs Current Assessment AND Plan Assessment: Patient has [...] nephrology in AM Respiratory failure with hypoxia ([facility]) 07/05/2017 - Present Overview Patient has [...] 05, 2017 TIME: 5:07 AM PAGER/CONTACT #: [phone] [facility] STAFF PHYSICIAN NOTE OF PERSONAL INVOLVEMENT IN [...] minutes. SIGNATURE: Domi Dasilva MD [facility] PAGER:[phone] DATE of SERVICE: July 05, 2017 TIME of SERVICE: 7:54 AM COMP METABOLIC PANEL Collected: 07/05/2017 Status: F Source: [place] 4:03 AM [facility] REPOSITORY TYPE CODE TESTS [...] mg/dL Low Glucose 59 Result Comment: The [place] Diabetes Association (ADA) provides guidance for cutoff [...] Standards of Medical Care in Diabetes 2016, [place] Diabetes Association. Diabetes Care. 2016.39(Suppl 1). LAB [...] By: #### CMP, MG1, PHOS, CBCDIF #### [facility] [address] [place] [address] MAGNESIUM Collected: 07/05/2017 Status: F Source: [place] 4:03 [facility] REPOSITORY TYPE CODE TESTS RESULT OUT OF REFERENCE UNITS RANGE LAB MG 1.7-2.3 mg/dL Magnesium 2.0 Performed By: #### CMP, MG1, PHOS, CBCDIF #### [facility] [address] [place] [address] PHOSPHORUS Collected: 07/05/2017 Status: F Source: [place] 4:03 [facility] REPOSITORY TYPE CODE TESTS RESULT OUT OF REFERENCE UNITS RANGE LAB PHOS 2.7-4.8 mg/dL High Phosphorus 5.2 Performed By: #### CMP, MG1, PHOS, CBCDIF #### [facility] [address] [place] [address] CBC AND DIFFERENTIAL Collected: 07/05/2017 Status: F Source: [place] 4:03 [facility] REPOSITORY TYPE CODE TESTS RESULT [...] Abs Lymph Low 0.11 LAB AMONO % Gilchrist% 2.6 LAB AAMONO <0.87 k/uL Abs Gilchrist 0.31 LAB AEOS % Eosin% 0.0 LAB AAEOS <0.46 k/uL Abs Eosin 0.00 LAB ABASO % Baso% 0.0 LAB AABASO <0.11 k/uL Abs Baso 0.00 LAB ANIIMI Anisocytosis Present LAB POLIMI Polychromasia Slight LAB PLTEST Platelet Estimate Platelet estimate decreased LAB DTYP DTYPE Manual Diff Performed By: #### CMP, MG1, PHOS, CBCDIF #### [place] [address] [place], [place] [address] RAPID PCR FLU/RSV Collected: 07/05/2017 Status: F Source: [place] 1:10 AM [facility] [...] PCR Performed By: #### FLRSV, RVPPCR #### [facility] [address] [place], [place] [address] RESP VIR PNL BY Collected: 07/05/2017 Status: F Source: [place] PCR 1:10 AM [facility] REPOSITORY TYPE CODE TESTS RESULT OUT OF RANGE REFERENCE UNITS LAB RVPSRC Nasopharyngeal Resp Viral Swab Panl Srce LAB FLUARV Negative Respiratory Abnormal Influenza A Viral Panel not Alert Virus performed since pathogen was identified by FLRSV test. If further testing is required, please call [phone] Result Comment: Account Credited LAB FLUAH1 Negative Abnormal Respiratory Alert Influenza A H1 Viral Panel not Virus performed since pathogen was identified by FLRSV test. If further testing is required, please call [phone] Result Comment: Account Credited LAB FLUAH3 Negative Abnormal Respiratory Alert Influenza A H3 Viral Panel not Virus performed since pathogen was identified by FLRSV test. If further testing is required, please call [phone] Result Comment: Account Credited LAB [id number] Negative Abnormal Respiratory Alert Influenza A Viral Panel not H1N1 09 performed since pathogen was identified by FLRSV test. If further testing is required, please call [phone] Result Comment: Account Credited LAB FLUBRV Negative Abnormal Respiratory Alert Influenza B Viral Panel not Virus performed since pathogen was identified by FLRSV test. If further testing is required, please call [phone] Result Comment: Account Credited LAB RSVA Negative Abnormal Resp Respiratory Alert Syncytial Vir A Viral Panel not performed since pathogen was identified by FLRSV test. If further testing is required, please call [phone] Result Comment: Account Credited LAB RSVB Negative Abnormal Resp Respiratory Alert Syncytial Vir B Viral Panel not performed since pathogen was identified by FLRSV test. If further testing is required, please call [phone] Result Comment: Account Credited LAB PIV1 Negative Parainfluenza 1 Abnormal Respiratory Alert Viral Panel not performed since pathogen was identified by FLRSV test. If further testing is required, please call [phone] Result Comment: Account Credited LAB PIV2 Negative Parainfluenza 2 Abnormal Respiratory Alert Viral Panel not performed since pathogen was identified by FLRSV test. If further testing is required, please call [phone] Result Comment: Account Credited LAB PIV3 Negative Parainfluenza 3 Abnormal Respiratory Alert Viral Panel not performed since pathogen was identified by FLRSV test. If further testing is required, please call [phone] Result Comment: Account Credited LAB HMPV Negative H Metapneumovirus Abnormal Respiratory Alert Viral Panel not performed since pathogen was identified by FLRSV test. If further testing is required, please call [phone] Result Comment: Account Credited LAB HRV Negative Abnormal Respiratory Alert Rhinovirus Viral Panel not performed since pathogen was identified by FLRSV test. If further testing is required, please call [phone] Result Comment: Account Credited LAB ADVBE Negative Abnormal Respiratory Alert Adenovirus B/E Viral Panel not performed since pathogen was identified by FLRSV test. If further testing is required, please call [phone] Result Comment: Account Credited LAB ADVC Negative Abnormal Respiratory Alert Adenovirus C Viral Panel not performed since pathogen was identified by FLRSV test. If further testing is required, please call [phone] Result Comment: Account Credited Performed By: #### FLRSV, RVPPCR #### [facility] [address] [place], [place] [address] GASA + ALL Collected: 07/05/2017 Status: F Source: [place] FOR 1:00 AM [facility] RADIANCE USE ONLY REPOSITORY TYPE [...] Comment: 50% Performed By: #### ALLBG #### [facility] [address] [place], [place] [address] XR CHEST 1V FRONTAL Observed: 07/05/2017 Status: F Source: [facility] 12:19 AM [facility] [place] REPOSITORY * * *Final Report* * * [...] silhouette. Other: No acute chest wall abnormality. Family Medicine Physician Assistant: PSCLaura Transcribe Date/Time: Jul 05 2017 3:10P Dictated by : DEBBY FRY MD This examination was interpreted and the report reviewed and electronically signed by: DEBBY FRY MD on Jul 05 2017 3:14PM EST [id number] SEPSIS LACTATE Collected: 07/04/2017 Status: F Source: [place] 11:57 PM [facility] [place] REPOSITORY TYPE CODE TESTS RESULT OUT OF REFERENCE UNITS RANGE LAB SLACTT <2.1 mmol/L Sepsis 0.9 Lactate Performed By: #### SLACT #### [facility] [address] [place], [place] [address] HISTORY PHYSICAL Observed: 07/04/2017 Status: COMPLETED Source: [place] 11:48 [facility] REPOSITORY HNO ID: [id number] Author: Ezra Dubon Service: General Internal Medicine [...] transplant nephrology decided to transfer patient to [facility] for further management. On arrival [...] scoop daily Disp: 1 Bottle Rfl: 11 juqrdp-dlsycwai-jvlwasr (CREON) 12,000-38,000 -60,000 unit cpDR Take 1 [...] Syringe Rfl: 0 Unknown at Unknown time RamilaNidine 4 mg tablet Take 1 tablet by [...] mother) 02/21/10 now with CKD CMV -/+. 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 - Anemia in chronic kidney disease On aranesp injection ~ every two weeks. Plan: Monitor CBC Send folate and B12 SIGNATURE: Tone Hercules MD PATIENT NAME: Val Valverde DATE: July 04, 2017 TIME: 11:51 PM PAGER/CONTACT #: [phone] [facility] Addendum Please refer to excellent note by Dr Hercules above for futher details. CHIEF COMPLAINT: Strep PNA HPI 46-year-old female with history of gastric carcinoma s/p radical near total gastrectomy with Layne gastrojejunostomy in 2000 and kidney transplant in 02/2010, CMV gastric ulcer in 10/2015, presented from [facility] with fever, chest pain and shortness [...] been following up with transplant nephrology at [facility] and so the plan was for her [...] Ezra Dubon MD Internal Medicine PGY-3 Pager [phone] July 05, 2017 1:03 AM PROTIME Collected: 07/04/2017 Status: F Source: [place] 11:47 PM [facility] REPOSITORY TYPE CODE TESTS RESULT OUT OF RANGE REFERENCE UNITS LAB PSEC 9.7-13.0 sec PT Sec 10.3 LAB INR 0.9-1.3 PT INR 1.0 Result Comment: Vitamin K Antagonist (VKA) Therapeutic Range: INR 2 to 3 (Target INR of 2.5) Note: For patients treated with VKA drugs, such as warfarin, the [place] College [employer]icians 2012 Guideline recommends [...] Chest 2012, 141:7S-47S Jin RA, et al. [facility] 2017, 70: 252-289 Performed By: #### PT, RETIC, CMP, CBCDIF #### [facility] [address] [place] [address] RETICULOCYTE Collected: 07/04/2017 Status: F Source: [place] 11:47 PM [facility] REPOSITORY TYPE CODE TESTS RESULT OUT OF REFERENCE UNITS RANGE LAB RETC 0.4-2.0 % Retic% 1.2 LAB ABRET 0.0180-0.1000 M/uL Abs Retic 0.029 Performed By: #### PT, RETIC, CMP, CBCDIF #### [facility] [address] [place] [address] COMP METABOLIC PANEL Collected: 07/04/2017 Status: F Source: [place] 11:47 PM [facility] REPOSITORY TYPE [...] mg/dL Low Glucose 71 Result Comment: The [place] Diabetes Association (ADA) provides guidance for cutoff [...] Standards of Medical Care in Diabetes 2016, [place] Diabetes [employer]. Diabetes Care. 2016.39(Suppl 1). LAB [...] By: #### PT, RETIC, CMP, CBCDIF #### [facility] [address], [place] [address] CBC AND DIFFERENTIAL Collected: 07/04/2017 Status: F Source: [place] 11:47 PM [facility] REPOSITORY TYPE CODE TESTS [...] Abs Lymph Low 0.00 LAB AMONO % Gilchrist% 4.3 LAB AAMONO <0.87 k/uL Abs Gilchrist 0.49 LAB AEOS % Eosin% 0.0 LAB AAEOS <0.46 k/uL Abs Eosin 0.00 LAB ABASO % Baso% 0.0 LAB AABASO <0.11 k/uL Abs Baso 0.00 LAB ANIIMI Anisocytosis Present LAB OVAIMI Ovalocytes Few LAB RCFIMI RBC Fragments Few LAB PLTEST Platelet Estimate Platelet estimate decreased LAB DTYP DTYPE Manual Diff Performed By: #### PT, RETIC, CMP, CBCDIF #### [facility] [address] [place] [address] VITAMIN B12 Collected: 07/04/2017 Status: F Source: [place] 11:47 PM [facility] REPOSITORY TYPE CODE TESTS RESULT OUT OF REFERENCE UNITS RANGE LAB B12 232-1245 pg/mL High Vitamin B12 >2000 Performed By: #### B12, SERFOL #### [place] [id number] FOLATE, SERUM Collected: 07/04/2017 Status: F Source: [place] 11:47 [facility] REPOSITORY TYPE CODE TESTS RESULT OUT [...] III (Folate III) [package insert V 1.0 Swedish]. Yamil YaKlass, [place], [place]: March 2015. Performed By: #### B12, SERFOL #### [place] [address] CKMB Collected: 07/04/2017 Status: F Source: [place] 11:47 [facility] REPOSITORY TYPE CODE TESTS RESULT OUT OF RANGE REFERENCE UNITS LAB MBE1 <4.3 ng/mL CKMB 1.3 Result Comment: Please note the updated, gender-specific reference range for this test (effective 05/03/2016). Performed By: #### MBE, ANDREINA #### [facility] [address] [place], [place] [address] TROPONIN T Collected: 07/04/2017 Status: F Source: [place] 11:47 PM [facility] REPOSITORY TYPE CODE TESTS RESULT OUT OF REFERENCE UNITS RANGE LAB TROPT 0.000-0.029 ng/mL Troponin T <0.010 Performed By: #### MBE, ANDREINA #### [facility] [place] [address] TACROLIMUS / [id number] Collected: 07/04/2017 Status: F Source: [place] 11:47 PM [facility] REPOSITORY TYPE CODE TESTS [...] situation. Test performed by chemiluminescent immunoassay using [employer]. Performed By: #### FK506 #### [place] [address] [place] [address] Observed: 07/04/2017 Status: F Source: [place] BLOOD CULTURE 11:45 PM [facility] REPOSITORY Culture Result - No growth 5 days Performed By: #### BLCUL #### [place] [address] TYPE AND SCREEN Collected: 07/04/2017 Status: F Source: [place] 11:35 PM [facility] REPOSITORY TYPE CODE TESTS RESULT OUT OF REFERENCE UNITS RANGE LAB %ABR B ABO/RH(D) POSITIVE LAB % Antibody NEG Screen Performed By: #### TSCR #### [place] [address] [place] [address] NURSING PROG Observed: 07/04/2017 Status: COMPLETED Source: [place] 11:15 PM [facility] REPOSITORY HNO ID: [id number] Author: Mihaela (Rn) Asp, RN Service: (none) Author Type: Registered Nurse Type: Nursing Progress Note Filed: 07/05/2017 1:58 AM Note Text: Nursing Progress Note Patient Name: Val Valverde Patient Location: H081 025/H081-25 Transfer Note: Patient transferred into room/unit H81-25 from [facility] needing increased oxygen requirements. O2 was [...] PT ED Observed: 07/04/2017 Status: COMPLETED Source: [place] 11:00 PM [facility] REPOSITORY [place] ID: [id number] Author: Sofia Provider Service: (none) Author Type: Physician Type: Patient Education Filed: 07/04/2017 11:00 PM Note Text: [facility] Patient Education Report --------- Name: VAL VLAVERDE Date: 07/04/2017 Time: 11:00 PM Patient Ordered Video: Inpatient Falls from [id number] via phone number [phone] at 11:00 PM DISCHARGE SUMMARY Observed: 07/04/2017 Status: F Source: [place] 3:51 PM [facility] [place] [facility] Medical Records Department [address] [place] [address] Discharge Summary 07/04/17 1527 MR#: [id number] Acct: [id number] Name: ABRAM,VAL Rep #: [id number] : 1970 46 From: Ruyb Boyd RIP/MOULD OPERATOR-C PCP: Wil To MD Status: ADM IN Y Location: [place] [id number] <Ruby Boyd - Last Filed: 07/04/17 15:31> [...] Vikas Haney MD at 12:52 EST Tel [phone], Service support , Dr. Mcdaniel- Nephrology Operations: [...] transplant-nephrology consulted. Patient follows with nephrology at [facility]. Nephrology managing her tacrolimus which was decreased given renal failure and pneumonia. Continue prednisone. Tacrolimus level pending. Transfer to [facility] pending given history of kidney [...] above. Patient is stable for transfer to [facility]. This patient was seen by [...] agree with the above note by the RIP/MOULD OPERATOR. Data reviewed. Female presents with shortness of [...] made to transfer the patient to the [facility]. I spoke with the transfer line [...] applicable Code Visit Inpatient E AND M: 30858 Disch Hosp 07/04/17 1532 <Electronically signed by Ruby TORRESC> Date Ruby TORRESC 07/04/17 1551<Electronically signed by Dionte Hutchison DO> Cosigner Signature (if applicable): Date Dionte Hutchison DO CC: RIP/MOULD OPERATOR-C Ruby Boyd; Wil To MD; Dionte Hutchison DO Signed CONSULTATION Observed: 07/04/2017 Status: F Source: [place] 1:49 PM [facility] [place] [facility] Medical Records Department [address] [place] [address] Consultation 07/04/17 1059 MR#: [id number] Acct: [id number] Name: VAL VALVERDE Rep #: [id number] : 1970 46 From: Marietta Mcdaniel DO PCP: Wil To MD Status: ADM IN Y Location: [place] [address] Consultation - Renal 07/04/17 PCP/ Referring MD: [...] from her mother in February 2010 at [facility], followed by Dr. Hameed at [facility] [place]. She presented to ED on 07/03 with [...] discussion about dialysis in the past with [facility] but no definite plans made. Creatinine on admission was elevated at 5.48 improved to 4.5 with IV hydration overnight. She denies any syncope or swelling. She has increased abdominal fullness with fluids or small meals. She has a history of CMV bleeding ulcers hospitalized twice at [facility] last year requiring intubation for one of [...] mg Albuterol/Ipratropium (Duoneb) 3 ml INHALATION Q6H.RT [facility] Last Admin: 07/04/17 07:20 Dose: 3 ml Bisacodyl (Dulcolax) 5 mg PO DAILY PRN PRN PRN Reason: Constipation Calcium/Vitamin D (Os-Patrice 500mg + D) 1 tablet PO BIDCM [facility] Last Admin: 07/04/17 09:50 Dose: 1 tablet Colestipol HCl (Colestid Tablet) 1 gm PO BID [facility] Last Admin: 07/04/17 08:50 Dose: 1 gm Cyanocobalamin (Vitamin B12) 1,000 mcg IM Q30D [facility] Last Admin: 07/03/17 19:30 Dose: 1,000 mcg Dronabinol (Marinol) 2.5 mg PO 4X/DAY [facility] Last Admin: 07/04/17 09:50 Dose: 2.5 mg Escitalopram Oxalate (Lexapro) 10 mg PO QODAY [facility] Gabapentin (Neurontin) 300 mg PO BIDCM [facility] Last Admin: 07/04/17 09:50 Dose: 300 mg Heparin Sodium (Porcine) () 5,000 units SC Q8 [facility] Last Admin: 07/04/17 05:47 Dose: 5,000 units Sodium Chloride () 1,000 mls @ 125 mls/hr IV .Q8H [facility] Last Admin: 07/04/17 08:34 Dose: 125 mls/hr Ceftriaxone Sodium (Rocephin) 1 gm in 50 mls @ 100 mls/hr IV Q24 [facility] Last Admin: 07/04/17 09:52 Dose: 100 mls/hr Vancomycin HCl () 500 mg in 100 mls @ 100 mls/hr IV Q72H [facility] Last Admin: 07/04/17 01:50 Dose: 100 mls/hr Magnesium Hydroxide (Milk Of Magnesia) 30 ml PO DAILY PRN PRN Reason: Constipation Non-Formulary Medication (Tacrolimus) 2 mg PO BREAKFAST [facility] Non-Formulary Medication (Tacrolimus [Envarsus Xr]) 1 mg PO DINNER [facility] Ondansetron HCl (Zofran) 4 mg IV Q8H PRN PRN PRN Reason: NAUSEA Oxycodone HCl (Oxyir) 5 - 10 mg PO Q4H PRN PRN PRN Reason: MOD-SEVERE PAIN (4-10/10) Last Admin: 07/04/17 06:08 Dose: 5 mg Pancrelipase (Pancrelipase (5000-17,000-27,000)) 1 capsule PO TIDCM [facility] Last Admin: 07/04/17 09:50 Dose: 1 capsule Pantoprazole Sodium (Protonix) 40 mg PO DAILY [facility] Last Admin: 07/04/17 08:50 Dose: 40 mg Polyethylene Glycol (Miralax) 17 gm PO DAILY PRN PRN PRN Reason: Constipation [facility]) [facility] Last Admin: 07/04/17 08:50 Dose: 5 mg Multivit/Folic Acid/Iron (Prenatabs Fa) 1 tablet PO DAILY [facility] Last Admin: 07/04/17 09:50 Dose: 1 tablet Promethazine HCl (Phenergan (Ll)) 12.5 mg IV Q6H PRN PRN Reason: NAUSEA Sodium Bicarbonate (Sodium Bicarbonate) 650 mg PO DAILY [facility] Last Admin: 07/04/17 09:50 Dose: 650 [...] Anemia - Managed by Dr. Tian in [facility] on RICKY therapy, -. Denies: Hx of [...] 07/04/17 10:00 07/04/17 10:00 07/04/17 10:00 07/04/17 10:07/04/17 10:00 Oxygen Flow Rate 5 Oxygen [...] Vikas Haney MD at 12:52 EST Tel [phone], Service support , Assessment/Plan Active and Suspected [...] 3. S/p kidney transplant. Discussed with transplant fashion consultant sales at [facility] in regards to adjusting her [...] levels, would recommend to transfer her to [facility] Main campus. Discussed with transplant fashion consultant sales and hospitalist. 07/04/17 2421 <Electronically signed by Marietta Mcdaniel DO> Date Marietta Mcdaniel DO Cosigner Signature (if applicable): Date CC: Wil To MD; Marietta Mcdaniel DO Signed TYPE AND SCREEN Collected: 07/04/2017 Status: F Source: [place] 11:47 AM [facility] [place] Order Comment: CMV NEG? N Number [...] NEGATIVE Screen Performed By: #### B101.7450 #### [facility] [place], [address] Collected: 07/04/2017 Status: F Source: [place] 11:47 AM [facility] [place] TYPE CODE TESTS RESULT OUT OF REFERENCE UNITS RANGE LAB U100.0000 [id number] TRANSFUSED PRODUCT: T AND S with Crossmatch, Red Cells COUNT: 1 Performed By: #### U100.0000 #### Non-[facility] - refer to report for specific site CBC-COMPLETE BLOOD CNT Collected: 07/04/2017 Status: F Source: [place] NO DIFF 6:23 AM [facility] [place] TYPE CODE TESTS RESULT OUT OF [...] MPV 11.8 Performed By: #### L100.0500 #### [facility] [address] [place], [address] RENAL PROFILE Collected: 07/04/2017 Status: F Source: [place] 6:23 AM [facility] [place] TYPE CODE TESTS RESULT OUT OF [...] Performed By: #### L500.3600, L503.6150, L503.6550 #### [facility] [address] [place], [address] IRON Collected: 07/04/2017 Status: F Source: [place] 6:23 AM [facility] [place] TYPE CODE TESTS RESULT OUT OF RANGE REFERENCE UNITS LAB L503.6150 50-170 ug/dL Low IRON 9 Performed By: #### L500.3600, L503.6150, L503.6550 #### [facility] [address] [place], [address] FERRITIN Collected: 07/04/2017 Status: F Source: [place] 6:23 AM [facility] [place] TYPE CODE TESTS RESULT OUT OF REFERENCE UNITS RANGE LAB L503.6550 8-252 ng/mL High FERRITIN 1071 Performed By: #### L500.3600, L503.6150, L503.6550 #### [facility] [address] [place], [address] M R STAPH AUREUS Collected: 07/04/2017 Status: F Source: [place] DNA BY PCR 1:15 AM [facility] [place] Order Comment: Order Date: 07/04/17 Has pt arrived? Y TYPE CODE TESTS RESULT OUT OF RANGE REFERENCE UNITS LAB L8200.1100 Negative Normal MRSA Negative RESULT Performed By: #### L8200.1000 #### [facility] [address] [place], [address] STREP Observed: 07/03/2017 Status: F Source: [place] PNEUMONIAE ANTIG(UR,CSF) 11:20 PM [facility] [place] Has pt arrived? Y S pneumo Ag URINE INTERPRETATION Positive Urine Positive for pneumococcal pneumonia. RESULTS CALLED TO MONTY MOCTEZUMA PCU 07/03/17 2355 Tianna Mccann. REPORT READ BACK BY SAME. Copy of report sent to Infection Control Printer [id number] 07/03/17 2355 EVER. Strep pneumo Test Urine POSITIVE for pneumococcal pneumonia. ORGANISM 1: Streptococcus pneumonia Ag Performed By: #### M300.4600 #### [facility] [address] [place], [address] Observed: 07/03/2017 Status: F Source: [place] LEGIONELLA ANTIGEN 11:20 PM [facility] [place] Has pt arrived? Y Legionella, UR Legionella Antigen result interpretation: Negative Presumptive negative for Legionella pneumophila serogroup 1 antigen in urine, suggesting no recent or current infection. Legionella Ag, Urine Negative (See interpretation below) Performed By: #### M300.4500 #### [facility] [address] [place], [address] LACTIC ACID Collected: 07/03/2017 Status: F Source: [place] 5:05 PM [facility] [place] Order Comment: Yes/No query for Sepsis Lactate Rule Y TYPE CODE TESTS RESULT OUT OF RANGE REFERENCE UNITS LAB L503.6005 0.4-2.0 mmol/L Normal LACTIC ACID 1.8 Performed By: #### L503.6005 #### [facility] [address] [place], [address] HISTORY AND PHYSICAL Observed: 07/03/2017 Status: F Source: [place] EXAM 3:30 PM [facility] [place] [facility] Medical Records Department [address] [place] [address] History and Physical 07/03/17 1510 MR#: [id number] Acct: [id number] Name: VAL VALVERDE Rep #: [id number] : 1970 46 From: Inge Waldrop MD PCP: Wil To MD Status: ADM IN Location: [place] [address] Problem List (1) Sepsis Status: Acute Qualifiers: [...] 3.2 last year. She followed nephrology at [facility]. WBC was 4.5, lactic acid [...] Vikas Haney MD at 12:52 EST Tel [phone], Service support , Assessment/Plan Active and Suspected [...] 3.2 last year. She followed nephrology at [facility]. WBC was 4.5, lactic acid [...] after IV bolus. Repeat BMP. She seed [facility] nephrology. Consult Dr. Mcdaniel while in the hospital. If renal function dose not improve, she may need to be transferred to [facility]. #4 History of renal transplant. [...] determined. Code Visit Inpatient E AND M: [id number] Init Hosp L3 07/03/17 1530 <Electronically signed by Inge Wadlrop MD> Date Inge Waldrop MD Cosigner Signature: Date (if applicable) CC: Wil To MD; Inge Waldrop M.D. Signed LACTIC ACID Collected: 07/03/2017 Status: F Source: [place] 1:35 PM [facility] [place] Order Comment: Yes/No query for Sepsis Lactate Rule Y TYPE CODE TESTS RESULT OUT OF REFERENCE UNITS RANGE LAB L503.6005 0.4-2.0 mmol/L High LACTIC ACID 2.9 Result Comment: Critical Result(s) Called at: 14:04:46 07/03/2017 by: Milagros Santoyo Performed By: #### L503.6005 #### [facility] [address] [place], [address] Observed: 07/03/2017 Status: C Source: [place] CULTURE, BLOOD (WB) 1:35 PM [facility] [place] BC * This is an amended result. * A prior result that was reported as final has been changed. 07/06/17 0728 by LEEANNA Previously reported as: ANAEROBIC AND AEROBIC BOTTLE GRAM STAIN= GRAM POSITIVE COCCI IN CHAINS RESULTS CALLED TO MONTY MOCTEZUMA PCLizy 07/03/17 0455 Tianna Mccann. REPORT READ BACK BY SAME. Copy of report sent to Infection Control Printer [id number] 07/04/17 4269 DGRADY. No anaerobic bacteria isolated. ORGANISM 1: [...] 0.5 S (NF) indicates non-formulary drug at [facility]. Approval by Infectious Disease Specialist required before non-formulary drugs may be ordered and/or dispensed. * CLSI guidelines does not recommend testing of cephalosporins. This interpretation is deduced from Beta-lactam/penicillin results. Performed By: #### M200.1000, M100.636 #### [facility] [address] [place], [address] Observed: 07/03/2017 Status: F Source: [facility] GPC ID 1:35 PM [facility] [place] GPC ID Copy of report sent to Infection Control Printer [id number] 07/04/17 7572 LSHOBE. Staphylococcus sp. Not Detected Enterococcus sp. Not Detected Streptococcus spp. Streptococcus pneumoniae Listeria spp Not Detected Duglas/vanB Not Detected mecA Not Detected NAAT METHOD Testing was performed using nucleic acid amplification ORGANISM 1: Streptococcus pneumoniae Performed By: #### M200.1000, M100.636 #### [facility] [address] [place], [address] Observed: 07/03/2017 Status: F Source: [place] CULTURE, BLOOD (WB) 1:30 PM [facility] [place] AEROBIC AND ANAEROBIC BOTTLE GRAM STAIN= GRAM POSITIVE COCCI IN CHAINS PLEASE REFER TO BC658 FOR SENSITIVITY ORGANISM 1: Streptococcus pneumoniae Performed By: #### M200.1000 #### [facility] [address] [place], [address] CBC W/DIFF, AUTOMATED Collected: 07/03/2017 Status: F Source: [place] 12:25 PM [facility] [place] TYPE CODE TESTS RESULT OUT OF [...] Normal 1+ Performed By: #### L100.0100 #### [facility] [place], [address] BASIC METABOLIC Collected: 07/03/2017 Status: F Source: [place] PROFILE (BMP) 12:25 PM [facility] [place] Order Comment: 'TROP' Serial specimen #1, [...] 12 Performed By: #### L500.2500, L501.4010 #### [facility] [address] [place], [address] TROPONIN-I Collected: 07/03/2017 Status: F Source: [place] 12:25 PM [facility] [place] Order Comment: 'TROP' Serial specimen #1, #2, #3, or #4: 1 TYPE CODE TESTS RESULT OUT OF RANGE REFERENCE UNITS LAB L501.4010 <0.06 ng/mL Normal < 0.02 TROPONIN-I Result Comment: TROPONIN-I EXPECTED VALUES <0.05 NEGATIVE 0.06 - 0.59 AT RISK OF [place] > OR = 0.60 SUGGEST [place] Performed By: #### L500.2500, L501.4010 #### [facility] [address] [place], [address] TACROLIMUS (PROGRAF) Collected: 07/03/2017 Status: F Source: [place] 12:25 PM [facility] [place] Order Comment: Comments: May use existing [...] signs of potential toxicity. Performed at: - [facility] [id number] Message Clerk: Nik Walker MD, Phone: [phone] Performed By: #### L3380.1000 #### [facility] (refer to report for specific site) refer to report for address and phone number CHEST PA AND LATERAL Observed: 07/03/2017 Status: F Source: [place] 12:24 PM [facility] [place] [facility] Imaging Services [address] [place] [address] Chest PA and Lateral MR#: [id number] Acct: [id number] Name: VAL VALVERDE Rep #: [id number] : 1970 F 46 From: Vikas Haney MD PCP: Wil To MD Status: PRE ER Study: Chest PA and Lateral Date of Exam: 07/03/17 Exam# [id number] Ordering Dr: Osei Wade MD STUDY: X-RAY [...] Vikas Haney MD at 12:52 EST Tel [phone], Service support , CC: Wil To MD; Osei Wade MD Family Medicine Physician Assistant: Signed CR-CHEST PA AND Observed: 07/03/2017 Status: F Source: [place] LATERAL IMPORT 12:00 AM [facility] REPOSITORY Images were obtained outside of [facility] [id number] [place] HEMATOCRIT Collected: 06/30/2017 Status: F Source: [place] 11:07 AM [facility] REPOSITORY TYPE CODE TESTS RESULT OUT OF REFERENCE UNITS RANGE LAB WHCT 36.0-46.0 % Low [place] Hematocrit 26.4 Result Comment: Test performed at: [address] [place] [address]. [place] HEMOGLOBIN Collected: 06/30/2017 Status: F Source: [place] 11:07 AM [facility] REPOSITORY TYPE CODE TESTS RESULT OUT OF REFERENCE UNITS RANGE LAB WHGB 11.5-15.5 g/dL Low [place] Hemoglobin 8.6 Result Comment: Test performed at: [address] [place] [address]. PROGRESS Observed: 06/23/2017 Status: COMPLETED Source: [place] 4:20 PM [facility] REPOSITORY HNO ID: [id number] Author: Duy Dumas Service: (none) Author Type: [...] d/t abdominal issues and was encouraged by fashion consultant sales to eat whatever she could tolerate. Last [...] 1 tablet by mouth every 48 hours. apfnfd-duedhpcu-iuemzqu (CREON) 12,000-38,000 -60,000 unit cpDR Take 1 [...] 08/03 - DRONABINOL 2.5 MG CAPSULE - [employer] website checked and validated. All prescriptions have been APPROPRIATELY filled. No suspicious activity was identified.- 06/23/2017 by Duy Dumas CNP Prescription instructions reviewed with patient as applicable. Potential red flag symptoms discussed with the patient. Reviewed appropriate action plan to take if red flag symptoms occur. Patient agreeable to treatment plan. Duy Dumas CNP PROGRESS Observed: 06/18/2017 Status: COMPLETED Source: [place] 12:00 AM [facility] REPOSITORY HNO ID: [id number] Author: Andrey Barajas Service: Abstract Author Type: Physician Type: Progress Notes Filed: 06/23/2017 7:58 AM Note Text: [facility] NOTE NAME: VAL VALVERDE CLINIC NO.: [id number] DATE OF SERVICE: 06/18/2017 SUBJECTIVE: aVl was seen by me in [place]. She [...] up. Sincerely, DICTATED BY: Luca Alexandre/Sumit JOB# [id number] [place] ABS GR + CBC Collected: 06/16/2017 Status: F Source: [place] 11:17 AM [facility] REPOSITORY TYPE CODE TESTS RESULT OUT OF REFERENCE UNITS RANGE LAB WWBC 3.70-11.00 k/uL [place] WBC 8.91 LAB WRBC 3.90-5.20 m/uL Low [place] RBC 2.68 LAB WHGB 11.5-15.5 g/dL Low [place] Hemoglobin 10.0 LAB WHCT 36.0-46.0 % Low [place] Hematocrit 30.7 LAB WMCV 80.0-100.0 fL [place] High MCV 114.6 Result Comment: Result rechecked. LAB WMCH 26.0-34.0 pg High [place] MCH 37.3 LAB WMCHC 30.5-36.0 g/dL [place] MCHC 32.6 LAB WRDW 11.5-15.0 % [place] RDW 14.7 LAB WPLT 150-400 k/uL [place] 159 Platelet Cnt LAB WMPV 9.0-12.7 fL [place] MPV 10.7 Result Comment: Test performed at: [facility] [place], [address] [place] [address]. LAB ABGRAN 1.45-7.50 k/uL Absol Gran 5.57 Count Result Comment: Reviewed Performed By: #### WAGCBC #### [facility] [address] [place], [place] [address] HOSP Observed: 06/16/2017 Status: COMPLETED Source: [place] 10:45 AM [facility] REPOSITORY Infusion Center ([facility]) VAL VALVERDE ([id number]) 1970 F TRN Date Time Provider Department 06/16/17 10:45 AM INJECTION [facility] During your visit today, we recorded the following information about you: Poppy Galvez LPN, LPN 06/16/2017 12:16 PM Signed Injection deferred,Parameters not met HGB 10.0 Poppy Galvez LPN Referring Provider: ALEX TIAN [[id number]] Allergies As of Date: 06/16/2017 Noted Allergy Reaction SULFA (SULFONAMIDE ANTIBIOTICS) 04/07/2001 4 - Hives Comments: hives NSAIDS (NON-STEROIDAL ANTI-INFLAM*04/23/2016 5 - Intolerance Date Reviewed: 06/04/2017 Reviewed by: Poppy Galvez LPN - Fully Assessed Primary Visit [...] Take 1 tablet by mouth every * BPQBYS-BCDTBZPQ-LVAKQHC 12,00* Take 1 capsule by mouth three* [...] 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 Nausea AND vomiting [R11.2] INVALID FOR*12/30/2016 More... GI bleed [K92.2] INVALID FOR* Priority: C More... History of gastric cancer [Z85.028] INVALID FOR* Pancytopenia (HCC) [D61.818] INVALID FOR* Priority: B Central line infection [T80.219A] INVALID FOR*02/27/2017 Priority: A More... Severe protein-calorie malnutrition (HCC) [E43] INVALID FOR* Hx of transfusion [Z92.89] INVALID FOR* More... Visit Notes: >> Poppy Galvez LPN Mon Jun 16, 2017 12:14 PM Status: Signed Injection deferred,Parameters not met HGB 10.0 Poppy Galvez LPN Encounter Status:Closed by POPPY GALVEZ on 06/16/17 ALLERGIES ALLERGIES DATE TYPE / CODE NAME / CODE REACTION SEVERITY SOURCE 06/03/2018 Drug NSAIDS Other Unknown [place] [facility] l Rep[facility] ED [facility]) Anti-Inflamma /[id number](R XNORM) 06/03/2018 Drug Sulfa Hives Unknown [place] [facility]416 [facility] 788161(SNOM Antibiotics)/ Repository ED CT) [id number](RX NORM) 04/23/2016 Drug NSAIDS INTOLERANCE [facility] Class/75407 (NON-STEROIDA [facility] [place] [address](SNOMED L Repository CT) ANTI-INFLAMMA TORY DRUG) 04/07/2001 Drug SULFA HIVES Med [facility] Class/12705 (SULFONAMIDE [facility] [place] [address](SNOMED ANTIBIOTICS) Repository CT) ENCOUNTERS ENCOUNTERS ADMIT/DISCHARGE ACCOUNT ADMITTING ENCOUNTER LOCATION SOURCE NUMBER CLASS 06/10/2018/06/10/19 [id number] Ambulatory [place] [facility] ing:SDCRoom: Repository AC06 05/25/2018/05/25/19 [id number] Ambulatory BMSBuilding:B [place] [facility] Repository 05/13/2018/05/13/20 [id number] Ambulatory BMSBuilding:B [place] 18 [facility] Repository 05/06/2018 [id number] Ambulatory BMSBuilding:B [place].[facility] Repository 05/06/2018/05/06/20 [id number] Ambulatory [place] [facility] Hospital ing:SDCRoom: Repository AC04 04/28/2018/04/28/20 [id number] [address] [place] [facility] ing:SDCRoom: Repository AC09 04/28/2018/04/28/20 [id number] Ambulatory BMSBuilding:B [place] 18 MS.[facility] Repository 04/27/2018/04/27/20 [id number] Ambulatory BMSBuilding:B [place] 18 [facility] Repository 04/21/2018 [id number] Ambulatory [facility] HospitalBuild Hospital ing:[facility] Repository 04/21/2018 [id number] Ambulatory BMSBuilding:B [place] MS.CF[facility] Repository 04/15/2018 [id number] Ambulatory [facility] Hospitalild Hospital ing:POLAB3 Repository 04/13/2018/04/14/20 [id number] Ambulatory [address] Repository 04/13/2018/04/14/20 [id number] Ambulatory [address] Repository 04/06/2018/04/06/20 [id number] Ambulatory [address] Repository 04/06/2018/04/07/20 [id number] Ambulatory [address] Repository 04/01/2018/04/02/20 [id number] Ambulatory [address] Repository 03/20/2018/03/20/20 [id number] Ambulatory [address] Repository 03/16/2018/03/17/20 [id number] Ambulatory [place] [facility] [place] Repository 03/16/2018/03/17/20 [id number] Ambulatory [place] [facility] [place] Repository 03/12/2018/03/13/20 [id number] Ambulatory [place] [facility] [place] Repository 03/11/2018 [id number] Ambulatory [facility] ing:OT Repository 03/05/2018/03/06/20 [id number] Ambulatory [place] [facility] [place] Repository 03/04/2018/03/05/20 [id number] Ambulatory [place] [facility] [place] Repository 02/26/2018/02/28/20 [id number] Ambulatory [place] [facility] [place] Repository 02/16/2018/02/18/20 [id number] Ambulatory [place] [facility] [place] Repository 02/16/2018/02/17/20 [id number] Ambulatory [place] [facility] [place] Repository 02/16/2018/04/15/20 [id number] Ambulatory [place] [facility] [place] Repository 02/04/2018/02/06/20 [id number] Ambulatory [place] [facility] [place] Repository 01/30/2018/01/31/20 [id number] Ambulatory [place] [facility] [place] Repository 01/26/2018/01/28/20 [id number] Ambulatory [place] [facility] [place] Repository 01/26/2018/01/27/20 [id number] Ambulatory [place] [facility] [place] Repository 01/12/2018/01/14/20 [id number] Ambulatory [place] [facility] [place] Repository 01/12/2018/01/13/20 [id number] Ambulatory [place] [facility] [place] Repository 12/30/2017 [id number] [facility] [place] Repository 12/29/2017/12/31/19 [id number] Ambulatory [place] [facility] [place] Repository 12/29/2017/12/31/19 [id number] Ambulatory [place] [facility] [place] Repository 12/23/2017/01/22/20 [id number] Ambulatory [place] [facility] [place] Repository 12/23/2017/12/24/19 [id number] Ambulatory [place] [facility] [place] Repository 12/22/2017/12/23/19 [id number] Ambulatory [place] [facility] [place] Repository 12/15/2017/12/17/19 [id number] Ambulatory [place] [facility] [place] Repository 12/15/2017/12/17/19 [id number] Ambulatory [place] [facility] [place] Repository 12/11/2017/12/12/19 [id number] Ambulatory [place] [facility] [place] Repository 11/17/2017/11/18/19 [id number] Ambulatory [place] [facility] [place] Repository 11/17/2017/11/19/19 [id number] Ambulatory [place] [facility] [place] Repository 11/12/2017/11/13/19 [id number] Ambulatory [place] [facility] [place] Repository 11/03/2017/11/05/19 [id number] Ambulatory [place] [facility] [place] Repository 11/03/2017/11/04/19 [id number] Ambulatory [place] [facility] [place] Repository 10/22/2017/10/24/19 [id number] Ambulatory [place] [facility] [place] Repository 10/20/2017/10/22/19 [id number] Ambulatory [place] [facility] [place] Repository 10/20/2017/10/22/19 [id number] Ambulatory [place] [facility] [place] Repository 10/06/2017 [id number] [facility] [place] Repository 10/06/2017 [id number] [facility] [place] Repository 10/06/2017/10/07/19 [id number] Ambulatory [place] [facility] [place] Repository 10/06/2017/10/08/19 [id number] Ambulatory [place] [facility] [place] Repository 10/01/2017/11/04/19 [id number] Ambulatory [facility] [place] Repository 09/29/2017/10/01/19 [id number] Ambulatory [place] [facility] [place] Repository 09/29/2017/09/30/19 [id number] Ambulatory [facility] [place] Repository 09/24/2017/09/25/19 [id number] Ambulatory [place] [place] Repository 09/15/2017/09/16/19 [id number] Ambulatory [facility] [place] Repository 09/15/2017/09/17/19 [id number] Ambulatory [place] [facility] [place] Repository 09/15/2017/09/17/19 [id number] Ambulatory [place] [facility] [place] Repository 09/08/2017/09/10/19 [id number] Ambulatory [place] [facility] [place] Repository 09/08/2017/09/19/19 [id number] Ambulatory [facility] [facility] [place] Repository 09/03/2017/09/05/19 [id number] Ambulatory [place] [facility] [place] Repository 09/01/2017/09/05/19 [id number] Ambulatory [place] [facility] [place] Repository 08/29/2017/09/03/19 [id number] Ambulatory [place] [facility] [place] Repository 08/27/2017/08/29/19 [id number] Ambulatory [place] [facility] [place] Repository 08/25/2017/08/27/19 [id number] Ambulatory [facility] [place] Repository 08/25/2017/08/26/19 [id number] Ambulatory [place] [facility] [place] Repository 08/20/2017/08/21/19 [id number] Ambulatory [facility] [place] Repository 08/18/2017/08/19/19 [id number] Ambulatory [facility] [place] Repository 08/11/2017/08/13/19 [id number] Ambulatory [facility] [place] Repository 08/11/2017/08/14/19 [id number] Ambulatory [facility] [facility] [place] Repository 08/11/2017/08/13/19 [id number] Ambulatory [facility] [facility] [place] Repository 08/05/2017/08/06/19 [id number] Ambulatory [place] [facility] [place] Repository 07/31/2017/08/06/19 [id number] Ambulatory [facility] [place] Repository 07/28/2017/07/29/19 [id number] Ambulatory [facility] [place] Repository 07/28/2017/07/30/19 [id number] Ambulatory [place] [facility] [place] Repository 07/25/2017/07/26/19 [id number] Ambulatory [place] [facility] [place] Repository 07/25/2017/07/31/19 [id number] Ambulatory [place] [facility] [place] Repository 07/22/2017/07/23/19 [id number] Ambulatory [place] [facility] [place] Repository 07/21/2017/07/23/19 [id number] Ambulatory [place] [facility] [place] Repository 07/14/2017/07/14/19 [id number] Ambulatory [facility] [place] Repository 07/07/2017/07/07/19 [id number] Ambulatory [address] Repository 07/04/2017/07/14/19 [id number] PROCK, Inpatient [place] 18 K[place] A Encounter [facility] Repository 07/03/2017/07/04/19 [id number] Benj[place], Inpatient [place] 18 Inge Encounter [facility] ing:PCURoom: Repository [id number]: 1 07/03/2017 [id number] [place], Ambulatory BMSBuilding:Laura Alcazar MS.[facility] Repository 07/03/2017 [id number] [place], Ambulatory BMSBuilding:Laura Alcazar MS.[facility] Repository 06/30/2017/07/01/19 [id number] Ambulatory [address] Repository 06/30/2017/07/01/19 [id number] Ambulatory [address] Repository 06/23/2017/06/23/19 [id number] Ambulatory [address] Repository 06/18/2017/06/18/19 [id number] Ambulatory [address] Repository 06/16/2017/06/17/19 [id number] Ambulatory [address] Repository 06/16/2017/06/16/19 [id number] Ambulatory [address] Repository PAYERS PAYERS ENCOUNTER GUARANTOR PAYER SUBSCRIBER SOURCE 06/10/2018 VAL Bright Primary VAL S [place] [id number] Insurance:MEDICAL SALVAILDOB: [address], [place] Number: Repository [phone]: (743) [id number] [phone] () Date:[id number] [id number]: 06/10/2018 Secondary NOT GIVENUNK [place] Insurance:SELF PAY [facility] Number: Effective Repository Date:2018-05-27 05/25/2018 VAL Bright Primary VAL S Kesha [id number] E Insurance:MEDICAL SALVAILDOB: [address] Number: Repository [id number]: [phone] [id number] [phone] (HP) Date:5399-42-74ZF [address] [address]WI: 05/25/2018 Secondary NOT GIVENUNK Kesha Insurance:SELF PAY [facility] Number: Effective Repository Date:2018-05-25 05/13/2018 VAL Bright Primary VAL Bright [place] [id number] Insurance:MEDICAL SALVAILDOB: [facility] [id number] Number: Repository [address]Dql: 330 [id number] [phone] (HP) Date:5103-39-87ZK [address] [address]PX: 05/13/2018 Secondary NOT GIVENUNK [place] Insurance:SELF PAY [facility] Number: Effective Repository Date:2018-05-11 05/06/2018 VAL S Primary VAL S [place] [id number] E Insurance:MEDICAL SALVAILDOB: [facility] [id number] Number: Repository [address]Usp: 330 [id number] [phone] (HP) Date:7117-62-71GQ [address] [address]IF: 05/06/2018 Secondary NOT GIVENUNK [place] Insurance:SELF PAY [facility] Number: Effective Repository Date:2018-05-06 05/06/2018 VAL S Primary VAL Bright [place] [id number] E Insurance:MEDICAL SALVAILDOB: [facility] [id number] Number: Repository [address]Bmj: 330 [id number] [phone] (HP) Date:8308-98-99AG [address] [address]MY: 05/06/2018 Secondary NOT GIVENUNK Kesha Insurance:SELF PAY [facility] Number: Effective Repository Date:2018-04-28 04/28/2018 VAL S Primary VAL Bright [place] [id number] E Insurance:MEDICAL SALVAILDOB: [facility] [id number] [place] Number: Repository [address]Ehr: 330 [id number] [phone] (HP) Date:7018-37-79WJ [address] [address]DF: 04/28/2018 Secondary NOT GIVENUNK [place] Insurance:SELF PAY [facility] Number: Effective Repository Date:2018-04-27 04/28/2018 VAL S Primary VAL S [place] [id number] Insurance:MEDICAL SALVAILDOB: [facility] [id number] [place] Number: Repository [address]Wwg: 330 [id number] [phone] (HP) Date:6703-82-02EX [address] [address]FA: 04/28/2018 Secondary NOT GIVENUNK Kesha Insurance:SELF PAY [facility] Number: Effective Repository Date:2018-04-28 04/27/2018 VAL S Primary VAL S Kesha [id number] E Insurance:MEDICAL SALVAILDOB: [facility] [id number] Number: Repository [address]Deb: 330 [id number] [phone] (HP) Date:5449-72-25SI [address] [address]EC: 04/27/2018 Secondary NOT GIVENUNK [place] Insurance:SELF PAY [facility] Number: Effective Repository Date:2018-04-15 04/21/2018 VAL S Primary VAL S Kesha [id number] E Insurance:MEDICAL SALVAILDOB: [address]05[address]19[place], [place] Number: Repository [address]Xke: 330 [id number] [phone] (HP) Date:9173-50-51PW [address] [address]HM: 04/21/2018 Secondary NOT GIVENUNK Kesha Insurance:SELF PAY [facility] Number: Effective Repository Date:2018-04-15 04/21/2018 VAL S Primary VAL Bright Kesha [id number] E Insurance:MEDICAL SALVAILDOB: [facility] [id number] Number: Repository [address]Cfd: 330 [id number] [phone] (HP) Date:5550-28-10XO [address] [address]WA: 04/21/2018 Secondary NOT GIVENUNK Kesha Insurance:SELF PAY [facility] Number: Effective Repository Date:2018-04-21 04/15/2018 VAL S Primary VAL Bright [place] [id number] Insurance:MEDICAL SALVAILDOB: [facility] [id number] [place] Number: Repository [address]Xix: 330 [id number] [phone] () Date:8698-51-09TA [address] [address]YI: 04/15/2018 Secondary NOT GIVENUNK Kesha Insurance:SELF PAY [facility] Number: Effective Repository Date:2018-04-15 03/11/2018 VAL S Primary VAL Bright Kesha [id number] E Insurance:MEDICAL SALVAILDOB: [facility] [id number] Number: Repository [address]Emg: 330 [id number] [phone] (HP) Date:9253-50-86MW [address] [address]CE: 03/11/2018 Secondary NOT GIVENUNK [place] Insurance:SELF PAY [facility] Number: Effective Repository Date:2018-03-02 07/03/2017 Val Primary Val Kesha [id number] Insurance:MEDICAL SalvailDOB: [facility] [id number] Number: Repository [address]Ruo: 330 [id number] [phone] (HP) Date:1435-84-98TN [address] [address]ZT: 07/03/2017 Secondary NOT GIVENUNK Kesha Insurance:SELF PAY [facility] Number: Effective Repository Date:2017-07-03 07/03/2017 Val Primary Val Kesha [id number] Insurance:MEDICAL SalvailDOB: [facility] [id number] Number: Repository [id number]: 330 [id number] [phone] () Date:0510-86-01AF [address] [address]HR: 07/03/2017 Secondary NOT GIVENUNK [place] Insurance:SELF PAY [facility] Number: Effective Repository Date:2017-07-03 07/03/2017 Val Primary Val [place] [id number] Insurance:MEDICAL SalvailDOB: [facility] [id number] Number: Repository [id number]: 330 [id number] [phone] () Date:2271-41-15KP[address] [address]WU: 07/03/2017 Secondary NOT GIVENUNK [place] Insurance:SELF PAY [facility] Number: Effective Repository Date:2017-07-03
== END 2018-06-10 16:32 | disposition home or self-care (01) ==
LOC: SDC 08:05 → AC 08:06
PROVIDERS: Family Provider Internal Medicine; PCP Internal Medicine; Referring Provider Surgery; Visit Provider Surgery
PROC: (CPT 36819; principal; 2018-06-10 09:45)
DX: I12.0 Hypertensive chronic kidney disease with stage 5 chronic kidney disease or end stage renal disease (principal); N18.5 Chronic kidney disease, stage 5; N17.9 Acute kidney failure, unspecified; T86.12 Kidney transplant failure; D63.1 Anemia in chronic kidney disease; K21.9 Gastro-esophageal reflux disease without esophagitis; F41.9 Anxiety disorder, unspecified; Z99.2 Dependence on renal dialysis; Z94.0 Kidney transplant status; Z79.891 Long term (current) use of opiate analgesic; Z79.52 Long term (current) use of systemic steroids; Z79.899 Other long term (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 therapy; Z88.2 Allergy status to sulfonamides; Z88.8 Allergy status to other drugs, medicaments and biological substances; Z85.028 Personal history of other malignant neoplasm of stomach; Z86.19 Personal history of other infectious and parasitic diseases; Z86.718 Personal history of other venous thrombosis and embolism; Z87.891 Personal history of nicotine dependence
CPT/HCPCS: 36819; 36415; 80048; 81025; 85027; J7120

== ENCOUNTER → 2018-06-29 15:56 | Outpatient (CLI) | payer OTHER, SELFPAY ==
[2018-06-10 08:33] VITALS: BMI 13.8
--- NOTE | 2018-06-29 16:06 | RAD_ITS ---
STUDY: X-RAY - LUMBAR SPINE REASON FOR EXAM: Female, 47 years old. Chronic low back pain, worse when up and moving, recently increasing. TECHNIQUE: 3 view(s) of the lumbar spine were obtained. COMPARISON: None FINDINGS: Normal lumbar lordosis. There is no substantial scoliosis. There is a normal alignment of the vertebrae. There is early anterior L1 endplate spurring, otherwise normal vertebral bodies and endplates. Normal disc space heights. There is no demonstrated osseous destructive lesion or fracture. Degenerative changes suggested in the lumbosacral facet joints. There are numerous surgical clips in the low abdomen and a pair of small clips in the posterior left upper quadrant. A T-shaped intrauterine device projects in the pelvic soft tissues. Oval-shaped 3.6 x 2.3 x 3.0 cm calcific density in the posterior left upper quadrant may be related as material within a bowel loop, stones or other calcific material in a dilated left renal calyx, or other dystrophic soft tissue calcification. Small suture line is seen immediately along the inferior margin of this calcific density. There is mild atherosclerotic plaquing of the distal abdominal aorta and common iliac arteries. RAD/Lumbar Spine 2 or 3 Views IMPRESSION: 1. Minimal degenerative changes of the lumbar spine. 2. Oval-shaped 3.6 cm calcific density of indeterminate etiology in the left upper quadrant. Further characterization with CT may be useful. 3. Postsurgical changes seen in the low abdomen and left upper quadrant. An IUD is incidentally noted. Electronically Signed: Aj Unger MD at 16:30 EST , Service support ,
== END ==
PROVIDERS: Family Provider Internal Medicine; PCP Internal Medicine; Referring Provider Anesthesiology Pain Medicine; Visit Provider Anesthesiology Pain Medicine
DX: M54.9 Dorsalgia, unspecified (principal)
CPT/HCPCS: 72100

== ENCOUNTER → 2018-06-30 15:56 | Outpatient (CLI) | payer OTHER, SELFPAY ==
[2018-06-10 08:33] VITALS: BMI 13.8
== END ==
PROVIDERS: Family Provider Internal Medicine; PCP Internal Medicine; Referring Provider Physician Assistant; Visit Provider Physician Assistant
DX: T14.8XXA Other injury of unspecified body region, initial encounter (principal); L08.9 Local infection of the skin and subcutaneous tissue, unspecified; X58.XXXA Exposure to other specified factors, initial encounter; Y93.9 Activity, unspecified; Y92.9 Unspecified place or not applicable; Y99.9 Unspecified external cause status
CPT/HCPCS: 87070; 87075; 87077; 87186; 87205

== ENCOUNTER 2018-08-11 10:30 | Outpatient (RCR) | payer OTHER, SELFPAY ==
[2018-06-10 08:33] VITALS: BMI 13.8
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
--- NOTE | 2018-08-11 12:13 | HP.PTDCSUM_ITS ---
HP - PT D/C Summary It has been my pleasure to treat JANES [place] under orders from Marie Mata MD, for the diagnosis of Back pain and Leg pain for a total of 9 visit(s). Discharge Date: 08/11/18 Please see the following information for a summary of their discharge status. - Subjective Subjective: Pt feels that PT is going well. At times she feels that she should be better... Going up stairs she feels she still struggles. At home she only uses the rail to balance herself.... but still challenging. SHe is still weak in the legs and arms. The first step on her front porch is higher than the rest and can not do that step unless pulls self up. She is still doing HEP. She feels that the Nu-step really helps her. - Pain back pain Pain Intensity (Out of 10): 0 Stomach Pain Intensity (Out of 10): 3 - Overall Improvement % Improvement: 100 - Objective Objective/Function: LE MMT: R hip flex 4-/5 and L hip flex 3+/5, B knee ext 4- /5, B knee flex 4-/5, B hip abd 4-/5 - Goals Goal 1:: I HEP. Goal Progress: Goal Met Goal 2:: Get back to sleeping in her bed to sleep through the night. Goal Progress: Not Progressing Goal 3:: Increase LE strength by 1/2 muscle grade Goal Progress: Progressing - Plan Plan: DC PT to HEP - D/C Information Discharge Comments: DC PT to HEP If there are questions or concerns regarding this patient's physical therapy, please feel free to call me at [phone]. Thank you for the referral of this patient. Sincerely, Kenyatta Guerra, MPT
== END 2018-08-11 19:00 | disposition home or self-care (01) ==
LOC: PT 10:30
PROVIDERS: Family Provider Internal Medicine; PCP Internal Medicine; Referring Provider Anesthesiology Pain Medicine; Visit Provider Anesthesiology Pain Medicine
DX: M54.9 Dorsalgia, unspecified (principal); M79.606 Pain in leg, unspecified
CPT/HCPCS: 97110; 97162; 97530

== ENCOUNTER 2018-08-17 17:24 | Emergency (ER) | payer OTHER, SELFPAY ==
[2018-06-10 08:33] VITALS: BMI 13.8
[2018-08-17] VITALS (12 sets, daily range): BP systolic 121–165; BP diastolic 84–110; PULSE 101–130; RESP 14–26; TEMP 35.8–41.1; O2SAT 87–100; BMI 26.4
[2018-08-17] MEDS: LORazepam 2 MG/ML Syringe IV ×2 (17:31→17:37)
[2018-08-17] MEDS: Rocuronium Bromide 50 MG/5 ML Vial IV (17:37)
[2018-08-17] MEDS: Etomidate 20 MG/10 ML Vial IV (17:37)
--- NOTE | 2018-08-17 17:40 | EKG12_ITS ---
Test Reason : UNRESPONSIVE Blood Pressure : / mmHG Vent. Rate : 111 BPM Atrial Rate : 111 BPM P-R Int : 126 ms QRS Dur : 078 ms QT Int : 346 ms P-R-T Axes : 071 089 055 degrees QTc Int : 470 ms Sinus tachycardia Otherwise normal ECG Confirmed by BRADY CASTRO, HAI ([id number]), photo editor VANESSA BRENNAN ([id number]) on 08/21/2018 11:28:22 AM Referred By: DELPHINE/GEN Confirmed By:HAI ABREU MD
--- NOTE | 2018-08-17 17:40 | CT_ITS ---
STUDY: CT BRAIN WITHOUT CONTRAST REASON FOR EXAM: Female, 47 years old. Unresponsive RADIATION DOSAGE (If Supplied By Facility): CTDIvol = ( 44.99 ) mGy, DLP = ( 745.49 ) mGycm TECHNIQUE: Transaxial CT imaging of the brain was performed without administration of intravenous contrast material. Individualized dose optimization techniques were used for this CT. COMPARISON: None. FINDINGS: There is no acute bleed or infarct. There are normal white matter tracts. The ventricles are normal in configuration. There is no hydrocephalus. The visualized paranasal sinuses are clear. The mastoid air cells are well aerated. There is no skull fracture. CT/Brain/Head without Contrast IMPRESSION: No acute intracranial abnormality. Electronically Signed: Dean Herrera, at 18:19 EDT Tel , Service support ,
[2018-08-17 18:06] LABS: Blood Gas Specimen Type VEN; FI02 100; O2 Delivery Device Vent; PEEP 5; RR 14; SITE OTHER; Time Given 1750; VBG BASE EXCESS -2 mmol/L (-1.0-3.5); VBG Bicarbonate 23 mmol/L (22-26); VBG Oxygen Content 24 mmol/L (23-33); VBG PO2 106 mmHg (25-40); VBG SO2 98 % (50-70); VBG pCO2 32.9 mmHg (41-51); VBG pH 7.44 (7.32-7.42); Vt 350
--- NOTE | 2018-08-17 18:10 | RAD_ITS ---
STUDY: X-RAY CHEST REASON FOR EXAM: Female, 47 years old. ET tube adjustment TECHNIQUE: Frontal view of the chest COMPARISON: 08/17/2018 FINDINGS: There is an endotracheal tube noted with its tip approximately 4 cm above the lucy. The remainder of the examination is unchanged. RAD/Chest 1 View (Portable) IMPRESSION: Satisfactory position of the endotracheal tube. Electronically Signed: Dean Herrera, at 18:51 EDT Tel , Service support ,
--- NOTE | 2018-08-17 18:10 | RAD_ITS ---
STUDY: X-RAY CHEST REASON FOR EXAM: Female, 47 years old. Line placement TECHNIQUE: Frontal view of the chest COMPARISON: 04/28/2018 FINDINGS: There is total opacification of the left hemithorax. There is a small right pleural effusion. The right lung is otherwise clear. There is no pneumothorax. There is an endotracheal tube noted with its tip within 1 cm above the lucy. This should be retracted 3-4 cm. There is an enteric tube noted with its tip in the stomach. There is a right-sided central catheter with its tip in the superior vena cava. The heart is normal in size. The visualized osseous structures are within normal limits. RAD/Chest 1 View (Portable) IMPRESSION: Endotracheal tube tip within 1 cm of the lucy. This should be retracted 3-4 cm. At the time of this dictation, a repeat exam has been performed and the endotracheal tube is properly positioned. Total opacification of the left hemithorax. Further evaluation with CT is recommended. Small right pleural effusion with overlying atelectasis. Electronically Signed: Dean Herrera, at 18:54 EDT Tel , Service support ,
[2018-08-17] MEDS: levETIRAcetam IV 1,000 MG/100 ML BAG 400 MG IV (18:20)
[2018-08-17 18:22] LABS: Bacteria 0 SEEN /hpf (None Seen); Mucous, Urine 0 SEEN /hpf (<or=2+); Red Blood Cells-Urine 0 SEEN /hpf (0-5); Squamous Epithelial Cells - UA 0 SEEN /hpf (5-10); White Blood Cells 0 SEEN /hpf (0-5)
[2018-08-17 18:28] LABS: Absolute Lymphocyte Count 0.71 X10^3/ul (0.83-4.51); Absolute Neutrophil Count 16.5 X10^3/uL (2.0-7.7); Basophil# 0.01 X10^3/uL; Basophil% 0.1 % (0-1); Hematocrit 32.6 % (37-47); Hemoglobin 10.5 g/dl (12.0-15.0); Lymphocyte # 0.71 X10^3/ul (4.0); Mean Corp Hgb Conc 32.2 g/gl (32-36); Mean Corpuscular Hgb 37.4 pg (27.0-32.0); Monocyte# 0.36 X10^3/uL; Neutrophil % 93.7 % (47-70); POSITIVE COUNT NO; POSITIVE DIFFERENTIAL NO; POSITIVE MORPHOLOGY YES; Platelet Count 113 K/mm3 (150-450); RBC Distribution Width SD 65.7 fl (35.1-43.9); Red Blood Count 2.81 M/mm3 (4.2-5.4); White Blood Count 17.6 K/mm3 (4.4-11.0)
[2018-08-17 18:29] LABS: ALB/GLOB Ratio 0.8 RATIO (0.9-2.4); AST(SGOT) 18 U/L (15-37); Alanine Aminotransfer ALT/SGPT 18 U/L (13-56); Albumin, Serum 2.6 g/dL (3.2-5.0); Alkaline Phosphatase 106 U/L (45-117); Anion Gap 9 (5-15); BUN 27 mg/dL (7-18); Calcium,Total 7.8 mg/dL (8.5-10.1); Chloride 111 mmol/L (98-107); Differential Indicated SCAN CRITERIA MET; EST Glomerular Filtration Rate 11 mL/min (>60); Est Glom Filt Rate - Afr Amer 14 mL/min (>60); Estimated Creatinine Clearance 14.62 ml/min; Globulin 3.2 g/dL (2.2-4.2); Glucose 119 mg/dL (74-106); Potassium 4.5 mmol/L (3.5-5.1); Protein, Total 5.8 g/dL (6.4-8.2); Sodium Level 143 mmol/L (136-145)
[2018-08-17 18:31] LABS: Color, Urine Yellow (Yellow); Glucose, Dipstick Normal (Normal); Ketone-Dipstick Negative (Negative); Leukocyte Esterase-Dipstick Negative /ul (Negative); Nitrite-Dipstick Negative (Negative); Occult Blood-Urine 50 /ul (Negative); Protein-Dipstick 30 mg/dl (Negative); Urine Bilirubin Dipstick Negative (Negative); Urine Clarity Clear (Clear); Urine Urobilinogen Normal (Normal)
[2018-08-17 18:47] LABS: Lactic Acid 4.1 mmol/L (0.4-2.0)
--- NOTE | 2018-08-17 18:47 | ED.RN ---
LAB RESULTED LACTIC 4.1, PHYSICIAN AWARE
--- NOTE | 2018-08-17 18:49 | ED.VISSUMM ---
- ER Visit Summary Date of Service: 08/17/18 Chief Complaint: Confusion History of Present Illness: The patient is a 47 F presents to the emergency department confusion and seizure activity. Patient has a history of renal transplant in 2010. 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 She has been in rejection and is currently on dialysis. She gets dialysis Friday, Friday, . She did have dialysis on Friday. states he checked on her today when he got home from work and she was confused and having involuntary motions. On squad arrival, she did appear to be seizing. She was given Narcan with no improvement. She has no history of seizure disorder. She has been compliant with her medications. states that she did have an upper respiratory infection and was on azithromycin just over a week ago. She has not had cough or fever. Physical Examination: Afebrile. Tachycardic, tachypneic, hypoxic. Patient is actively seizing. Pupils are sluggish. Head is normocephalic. Neck is supple. Heart is regular tachycardia. Lungs are diminished with very minimal air movement in the left. Abdomen is soft. Extremities show no edema. Test Results: [] Emergency Department Course and Treatment: Patient presents with recurrent seizure activity. She does appear to be in status epilepticus. She was given Ativan 2 mg. The seizure activity did stop, but she was now posturing. She was given 2 more milligrams. She did have hypoxia on arrival. Decision was made to intubate the patient. She was intubated easily with a 7 oh tube. Chest x-ray does demonstrate white out of the left lung. Head CT was obtained was unremarkable. The patient was loaded with Keppra. She was started on propofol for sedation. Screening labs do show leukocytosis. I discussed the patient with transplant physician and with neuro ICU at [facility]. The patient will be transferred to [facility] neuro ICU for status epilepticus. She was covered with broad-spectrum antibiotics and antivirals given her history of transplant and prior CMV infection. Treatment Plan: [] Disposition: Transfer Impression: 1. Status epilepticus 2. Intubation by the physician 3. Sepsis 4. Respiratory failure This note was generated with Futubank dictation software. It may contain incorrect words, spelling, and punctuation that were not noted in review of the chart prior to signing ED Disposition - Plan for ED Patient: Referrals: Deb Gregory MD [Primary Care Provider] -
[2018-08-17] MEDS: Propofol 10MG/Ml 1,000 MG/100 ML Bottle 4.446 MG CONT INF (18:52)
[2018-08-17 18:56] LABS: Differential Comment SCANNED
[2018-08-17 19:27] LABS: International Normalized Ratio 1.1; Prothrombin Time (Protime)PT. 14.1 SECONDS (11.7-14.9)
[2018-08-17 19:28] LABS: Partial Thromboplast Time 32.7 Seconds (24.1-36.2)
--- NOTE | 2018-08-17 20:04 | ED.RN ---
delay on transfusion of rocephin related to line issues. additional line was obtained and rocephin started there. line was leeking around IV catheter. atul payan rn [id number]
[2018-08-17] MEDS: Vancomycin IV 1,000 MG/200 ML BAG 200 MG IV (20:30)
[2018-08-17] MEDS: Acyclovir 750 MG in Dextrose 5% 250 ML 265 MG IV (21:37)
--- NOTE | 2018-08-17 21:49 | ED.RN ---
CALLED [facility], THEY STATED THEIR NEURO ICU IS AT CAPACITY AND THEY ARE UNAWARE OF WHEN A BED WILL OPEN UP
[2018-08-17 22:05] LABS: Reflex Lactate? Y
--- NOTE | 2018-08-17 22:50 | ED.RN ---
CALLED [facility], ATTEMPTED TO REQUEST ER TO ER TRANSFER, OR OTHER TRANSFER TO ASSIST WITH THIS PT TO ACQUIRE [facility]ARE PER REQUEST OF DR AKERS, PER THE TRANSFER CENTER AT [facility], THEY ARE NOT WILLING TO TAKE ANY OTHER ROUTE FOR TRANSFER
[2018-08-17] MEDS: fentaNYL 100 MCG/2 ML Ampul IV (23:04)
[2018-08-17] MEDS: fentaNYL drip 100 ML 2.5 MCG CONT INF (23:23)
[2018-08-17 23:25] LABS: Lactic Acid 1.9 mmol/L (0.4-2.0)
--- NOTE | 2018-08-17 23:40 | ED.RN ---
oral care provided to pt at 2340. raman payan rn [id number]
[2018-08-18 00:19] LABS: CPK Total, Creatine Kinase 89 U/L (26-192); Triglycerides 135 mg/dL
[2018-08-18 00:22] VITALS: BP 124/88; PULSE 135; RESP 23; RESP 25; TEMP 37.7; O2SAT 94; O2SAT 95
[2018-08-18 00:38] VITALS: PULSE 139; RESP 14; O2SAT 95
[2018-08-18 01:23] VITALS: BP 101/86; PULSE 149; PULSE 150; RESP 22; RESP 27; TEMP 37.7; O2SAT 100; O2SAT 97
[2018-08-18] MEDS: Acetaminophen 650 MG/20 ML UDC 1000 MG NG (01:40)
[2018-08-18 07:35] LABS: Bedside Glucose 104 mg/dL (70-110)
[2018-08-21 12:18] LABS: Tacrolimus (FK506) 3.5 ng/mL (2.0-20.0)
== END 2018-08-18 02:05 | disposition short-term general hospital (02) ==
PROVIDERS: Emergency Medicine; Emergency Provider Emergency Medicine; Family Provider Internal Medicine; PCP Internal Medicine
DX: G40.901 Epilepsy, unspecified, not intractable, with status epilepticus (principal); A41.9 Sepsis, unspecified organism; J96.91 Respiratory failure, unspecified with hypoxia; Z79.52 Long term (current) use of systemic steroids; Z79.899 Other long term (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 therapy; Z85.028 Personal history of other malignant neoplasm of stomach; Z94.0 Kidney transplant status
CPT/HCPCS: 31500; 36415; 51702; 70450; 71045; 80053; 80197; 81001; 82550; 82803; 82962; 83605; 84478; 85025; 85610; 85730; 87040; 93005; 94002; 96365; 96366; 96367; 96375; 99251; 99285; J7030; J7050; A4216; G0463; J0696

== ENCOUNTER → 2018-09-17 09:12 | Outpatient (CLI) | payer OTHER, SELFPAY ==
[2018-08-17 17:25] VITALS: BMI 26.4
[2018-09-17 09:57] LABS: Potassium 5.1 mmol/L (3.5-5.1)
== END ==
PROVIDERS: Family Provider Internal Medicine; PCP Internal Medicine; Referring Provider Internal Medicine Nephrology; Visit Provider Internal Medicine Nephrology
DX: E87.5 Hyperkalemia (principal)
CPT/HCPCS: 84132

== ENCOUNTER 2018-09-22 10:28 | Inpatient (IN) | payer OTHER, SELFPAY ==
[2018-08-17 17:25] VITALS: BMI 26.4
[2018-09-22] VITALS (17 sets, daily range): BP systolic 123–160; BP diastolic 54–83; PULSE 81–111; RESP 15–24; TEMP 37.1–37.7; O2SAT 88–96; BMI 16.1; BMI 16.0
--- NOTE | 2018-09-22 10:50 | RAD_ITS ---
STUDY: X-RAY CHEST REASON FOR EXAM: Female, 47 years old. Fever. Decreased pulse oximetry. TECHNIQUE: Single AP portable view of the chest. COMPARISON: Comparison is made with prior study dated August 17, 2018. FINDINGS: A right-sided venous catheter seen with the tip in the right atrium. A right-sided central venous catheters also seen with tip in the right atrium. Small to moderate-sized left pleural effusion with underlying infiltration and/or atelectasis. There is evidence of a infiltration and/or atelectasis of the right lung base with a superimposed CHF. Normal size heart. Normal mediastinum and jon. Normal visualized pulmonary arteries. Normal visualized aortic arch and descending thoracic aorta. Normal visualized thoracic spine. Normal visualized ribs, clavicles, and shoulders. There is no demonstrated abnormality of the visualized soft tissue structures of the upper abdomen. RAD/Chest 1 View (Portable) IMPRESSION: Small to moderate sized left pleural effusion with bibasilar atelectasis and/or infiltration superimposed on CHF. Electronically Signed: Vikas Haney, at 11:34 EDT , Service support ,
[2018-09-22 11:33] LABS: Absolute Lymphocyte Count 0.63 X10^3/ul (0.83-4.51); Absolute Neutrophil Count 29.8 X10^3/uL (2.0-7.7); Basophil# 0.03 X10^3/uL; Basophil% 0.1 % (0-1); Eosinophils% 0.9 % (0-5); Hematocrit 30.9 % (37-47); Hemoglobin 9.9 g/dl (12.0-15.0); Lymphocyte # 0.63 X10^3/ul (4.0); Mean Corpuscular Hgb 32.9 pg (27.0-32.0); Mean Corpuscular Volume 102.7 fL (81-99); Mean Platelet Vol. 11.2 fl (6.2-12.0); Monocyte# 1.39 X10^3/uL; Monocyte% 4.3 % (0-10); Neutrophil # 29.82 X10^3/uL (2.7-7.7); Neutrophil % 92.4 % (47-70); Platelet Count 125 K/mm3 (150-450); RBC Distribution Width CV 20.9 % (11.6-14.6); RBC Distribution Width SD 78.6 fl (35.1-43.9); Red Blood Count 3.01 M/mm3 (4.2-5.4); White Blood Count 32.3 K/mm3 (4.4-11.0)
[2018-09-22 11:34] LABS: Differential Indicated SCAN CRITERIA MET; POSITIVE COUNT YES; POSITIVE DIFFERENTIAL YES; POSITIVE MORPHOLOGY YES
--- NOTE | 2018-09-22 11:38 | RAD_ITS ---
STUDY: X-RAY - LEFT FOOT CLINICAL: Female, 47 years old. Bruising following injury. TECHNIQUE: 3 view(s) of the foot. COMPARISON: None. FINDINGS: Normal talus, calcaneus, and tarsal bones. Normal visualized subtalar, talonavicular, calcaneocuboid, tarsal and tarsometatarsal articulations. Normal metatarsi. There is degenerative arthrosis of the metatarsophalangeal joint of the hallux . Normal tibial and fibular sesamoid bones. Normal interphalangeal joint of the great toe. Normal phalanges of the great toe. Normal second through fifth metatarsophalangeal joints. Normal interphalangeal joints and phalanges of the lesser toes. Dorsal soft tissue swelling. RAD/Foot min 3 Views IMPRESSION: Mild degenerative changes at the first metatarsal phalangeal joint. Dorsal soft tissue swelling. Electronically Signed: Vikas Haney, at 14:28 EDT , Service support ,
[2018-09-22 11:41] LABS: Anion Gap 5 (5-15); BUN 38 mg/dL (7-18); BUN/Creat Ratio 16.1 RATIO (10-20); Chloride 101 mmol/L (98-107); Creatinine, Serum 2.36 mg/dL (0.55-1.02); EST Glomerular Filtration Rate 24 mL/min (>60); Est Glom Filt Rate - Afr Amer 28 mL/min (>60); Estimated Creatinine Clearance 17.02 ml/min; Glucose 63 mg/dL (74-106); Potassium 2.8 mmol/L (3.5-5.1); Sodium Level 136 mmol/L (136-145)
[2018-09-22 11:57] LABS: Anisocytosis 2+
--- NOTE | 2018-09-22 11:58 | ED.VISSUMM ---
- ER Visit Summary Date of Service: 09/22/18 Chief Complaint: [Fever] History of Present Illness: The patient is a 47 F [presents with a fever that started this morning while at dialysis. Patient was noted to have a temperature of 102. Patient had a cough that started yesterday. Patient at times bringing up some yellow to brown sputum. Patient has a history of recent sepsis pneumonia and was admitted at the [facility] over the month of August and was intubated for 11 to 12 days. Patient also is a renal transplant patient with kidney that failed. Patient denies any urinary symptoms although she makes less urine than normal. Patient also complains of edema to her legs that is been somewhat chronic now. She has been on oxygen since leaving the [facility] and normally is on 2 L of O2.] Physical Examination: [HEENT-PERRLA, EOMI. Cranial nerves II through XII grossly intact. TMs clear. Mucous membranes moist. No adenopathy. Cardiovascular-regular rate and rhythm without murmur or ectopy Lungs-minutes breath sounds in the bases with Rales on the left side. Patient has mild tachypnea. No accessory muscle use or retractions. Patient has diffuse rhonchi. Abdomen-normoactive bowel sounds, soft, nontender, no rebound or rigidity, no peritoneal signs. Extremities-intact ?4, normal range of motion, normal pulses, atraumatic] Test Results: [CBC with differential obtained showed a white count 32,000, hemoglobin 9.9, hematocrit 31, platelets 125. Chemistries showed a sodium 138, potassium 2.8, chloride 101, CO2 30, glucose 63, BUN 38, creatinine 2.36. Lactate is pending. Chest x-ray shows a left pleural effusion with some bibasilar atelectasis versus infiltrates and some superimposed CHF.] Emergency Department Course and Treatment: [Patient had blood cultures ordered and was started on Zosyn. Patient had already started vancomycin this morning. Patient was judiciously given normal saline.] Treatment Plan: [Admit] Disposition: [Admit] Impression: [Pneumonia Sepsis syndrome Chronic renal failure] This note was generated with OmniVec dictation software. It may contain incorrect words, spelling, and punctuation that were not noted in review of the chart prior to signing ED Disposition - Plan for ED Patient: Referrals: Deb Gregory MD [Primary Care Provider] -
[2018-09-22 12:01] LABS: Lactic Acid 1.6 mmol/L (0.4-2.0)
[2018-09-22] MEDS: 0.9% Normal Saline 1,000 ML 15 ML IV (12:01)
--- NOTE | 2018-09-22 12:01 | ED.DCSUM_ITS ---
- ER Visit Summary Date of Service: 09/22/18 Chief Complaint: [Fever] History of Present Illness: The patient is a 47 F [presents with a fever that started this morning while at dialysis. Patient was noted to have a temperature of 102. Patient had a cough that started yesterday. Patient at times bringing up some yellow to brown sputum. Patient has a history of recent sepsis pneumonia and was admitted at the [facility] over the month of August and was intubated for 11 to 12 days. Patient also is a renal transplant patient with kidney that failed. Patient denies any urinary symptoms although she makes less urine than normal. Patient also complains of edema to her legs that is been somewhat chronic now. She has been on oxygen since leaving the [facility] and normally is on 2 L of O2.] Physical Examination: [HEENT-PERRLA, EOMI. Cranial nerves II through XII grossly intact. TMs clear. Mucous membranes moist. No adenopathy. Cardiovascular-regular rate and rhythm without murmur or ectopy Lungs-minutes breath sounds in the bases with Rales on the left side. Patient has mild tachypnea. No accessory muscle use or retractions. Patient has diffuse rhonchi. Abdomen-normoactive bowel sounds, soft, nontender, no rebound or rigidity, no peritoneal signs. Extremities-intact ?4, normal range of motion, normal pulses, atraumatic] Test Results: [CBC with differential obtained showed a white count 32,000, hemoglobin 9.9, hematocrit 31, platelets 125. Chemistries showed a sodium 138, potassium 2.8, chloride 101, CO2 30, glucose 63, BUN 38, creatinine 2.36. Lactate is pending. Chest x-ray shows a left pleural effusion with some bibasilar atelectasis versus infiltrates and some superimposed CHF.] Emergency Department Course and Treatment: [Patient had blood cultures ordered and was started on Zosyn. Patient had already started vancomycin this morning. Patient was judiciously given normal saline.] Treatment Plan: [Admit] Disposition: [Admit] Impression: [Pneumonia Sepsis syndrome Chronic renal failure] This note was generated with Giga[employer] dictation software. It may contain incorrect words, spelling, and punctuation that were not noted in review of the chart prior to signing ED Disposition - Plan for ED Patient: Referrals: Deb Gregory MD [Primary Care Provider] -
--- NOTE | 2018-09-22 12:41 | PCM.HP.STD ---
Problem List (1) Chronic renal failure, stage 5 Status: Chronic (2) Problem with dialysis access Status: Chronic (3) Renal transplant rejection Status: Acute (4) GERD (gastroesophageal reflux disease) Status: Acute (5) History of cytomegalovirus infection Status: Acute (6) history of failed renal transplant Status: Acute (7) Sepsis Status: Acute Qualifiers: Sepsis type: sepsis due to unspecified organism Qualified Code(s): A41.9 - Sepsis, unspecified organism (8) Pneumonia, bacterial Status: Chronic (9) CKD (chronic kidney disease) stage 4, GFR 15-29 ml/min Status: Chronic (10) History of renal transplant Status: Chronic (11) History of gastric cancer Status: Chronic (12) Essential hypertension Status: Chronic (13) Anemia, chronic renal failure Status: Chronic Qualifiers: Chronic kidney disease stage: stage 4 (severe) Qualified Code(s): N18.4 - Chronic kidney disease, stage 4 (severe); D63.1 - Anemia in chronic kidney disease (14) Healthcare-associated pneumonia Status: Acute History of Present Illness Date of Admission: 09/22/18 Chief Complaint: Shortness of breath, cough and fever The patient is a 47 year old F with multiple comorbidities including 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 Patient has cough with yellow sputum. She also had sweating and feeling mild headache last night and during dialysis today she had a fever 102.8 Fahrenheit. Her vitals in the dialysis center was heart rate 100/min, blood pressure 178/85. She is on home oxygen 2 L during the day and 3 L during sleep. She had recurrent pneumonia first in April 2018 and then in August 2017 which was sepsis secondary to bilateral lower lobes Streptococcus pneumonia and streptococcal bacteremia and was transferred to [facility] for kidney transplant history where she was intubated on ventilator for about 2 weeks and was discharged almost 3 weeks. Patient is on dialysis and was sent from dialysis center to ER. Basic labs show significant leukocytosis 32.3 thousand with left shift, BUN/creatinine 38/2.36, K2.8. Chest x-ray shows left [id number]-[id number] pleural effusion with underlying infiltrate and bibasilar atelectasis. Patient had dose of vancomycin, cefazolin and Phenergan in dialysis center. Patient got Zosyn 4.5 g in ER. 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.11 GERD (gastroesophageal reflux disease) (Acute) K21.9 History of cytomegalovirus infection (Acute) Z86.19 history of failed renal transplant (Acute) Sepsis (Acute) A41.9 Pneumonia, bacterial (Chronic) J15.9 JENNIFFER (acute kidney injury) (Resolved) N17.9 CKD (chronic kidney disease) stage 4, GFR 15-29 ml/min (Chronic) N18.4 History of gastric cancer (Chronic) Z85.028 Essential hypertension (Chronic) I10 Anemia, chronic renal failure (Chronic) N18.9, D63.1 History of gastrectomy Z90.3 Allergies Sulfa (Sulfonamide Antibiotics) Allergy (Verified 09/22/18 10:32) Hives NSAIDS (Non-Steroidal Anti-Inflamma Adverse Reaction (Verified 09/22/18 10:32) Other Home Medications: Ambulatory Orders Medication Instructions Recorded Cyanocobalamin [Vitamin B12] 1,000 mcg IM Q30D 07/03/17 Dronabinol [Marinol] 2.5 mg PO 4X/DAY 07/03/17 Gabapentin [Neurontin] 300 mg PO BIDCM 07/03/17 Levonorgestrel [Mirena] 1 ea VAGINAL UD 07/03/17 Prednisone 5 mg PO DAILY 07/03/17 Vits [Prenatabs FA ] 1 tab PO DAILY 07/03/17 Tizanidine HCl [Zanaflex] 4 mg PO BID 04/27/18 Biotin 10,000 mcg PO DAILY 05/05/18 oxycodone-acetaminophen 5 mg-325 1 tab PO Q6H 02/12/19 mg tablet pantoprazole 40 mg tablet,delayed 40 mg PO BID 07/22/18 release Surgical History: Surgical History (Last Reviewed 07/22/18 @ 13:30 by Akanksha Thomas) History of renal transplant (Chronic) Z94.0 s/p left arteriovenous fistula creation Onset Date: ~05/06/18 Surgical History: - Smoking Status: Never smoker - *Family History Maternal History Items: No pertinent history Review of Systems Constitutional: Reports: Anorexia, Chills, Fever, Weakness HEENT: Denies: Head Aches, Sinus Congestion, Sinus Drainage Cardiovascular: Denies: Chest Pain, Palpitations Respiratory: Reports: Shortness of Breath, Shortness of breath upon exertion. Denies: Cough, Shortness of breath at rest, Sputum production Gastrointestinal: Denies: Abdominal Pain, Nausea, Vomiting Genitourinary: Reports: Frequency, - - Hemodialysis. Denies: Dysuria Musculoskeletal: Reports: Joint Pain. Denies: Joint Tenderness Skin: Denies: Rash, Wounds Neurological: Denies: Numbness, Tingling, Focal weakness Psychiatric: Denies: Anxiety, Depression, Homicidal Ideations, Suicidal Ideations Hematologic/ Lymphatic: Denies: Easy Bruising, Easy Bleeding VTE Information - Inpt Only VTE Present on Admission: No VTE Mechan Device Prophylaxis: None VTE Pharm Prophylaxis ordered?: Yes Patient Problems: Active and Suspected Problems (Last Reviewed 07/22/18 @ 13:30 by Akanksha Thomas) Healthcare-associated pneumonia (Acute) - Physical Exam General: Alert, Oriented x3, Cooperative HEENT: Atraumatic, PERRLA, EOMI, Normocephalic Oral: Dry Mucosa Neck: Supple, No JVD, Negative Carotid Bruits, - - Right subclavian dialysis catheter. Gets TPN through the purple port Lungs: Diminished - Air entry diminished in bilateral lung bases, more on left, Rales, Short of Breath Cardiovascular: Regular Rhythm, Normal S1, Normal S2, No murmurs, Tachycardic Abdomen: Bowel Sounds Present, Soft, Non Tender Extremities: No edema, Capillary Refill Less than 3 Seconds Skin: No rashes, No breakdown Musculoskeletal: No Tenderness to Palpation of Joints or Extremities, Arthritic Changes, Muscle Wasting Neurological: Cranial nerves II-XII grossly intact, Deep Tendon Reflexes 2+/4 and Symmetrical Psych/Mental Status: Normal Affect, Appropriate Vital Signs Temp Pulse Resp BP Pulse Ox 99.9 F H 101 H 17 138/83 H 96 09/22/18 11:41 09/22/18 12:06 09/22/18 12:06 09/22/18 12:06 09/22/18 12:06 Oxygen Flow Rate (L/min) 3 Oxygen Delivery Method Nasal Cannula Weight: 79 lb 12.917 oz Body Mass Index (BMI) 16.1 Finger Stick Blood Glucose 104 Laboratory Tests Past 24 Hrs 09/22/18 09/22/18 09/22/18 11:20 11:20 11:20 WBC 32.3 H* RBC 3.01 L Hgb 9.9 L Hct 30.9 L MCV 102.7 H MCH 32.9 H MCHC 32.0 RDW 20.9 H RDW Differential 78.6 H Plt Count 125 L MPV 11.2 Immature Gran % (Auto) 0.300 Neut % (Auto) 92.4 H Lymph % (Auto) 2.0 L [place] % (Auto) 4.3 Eos % (Auto) 0.9 Baso % (Auto) 0.1 Absolute Neuts (auto) 29.8 H Absolute Lymphs (auto) 0.63 L Total Counted Not Reportable Diff Path Review May foll Anisocytosis 2+ Sodium 136 Potassium 2.8 L Chloride 101 Carbon Dioxide 30.0 Anion Gap 5 BUN 38 H Creatinine 2.36 H Estim Creat Clear Calc 17.02 Est GFR (MDRD) Af Amer 28 L Est GFR (MDRD) Non-Af 24 L BUN/Creatinine Ratio 16.1 Glucose 63 L Lactic Acid 1.6 Calcium 8.0 L Assessment/Plan All Active Problems (Last Reviewed 07/22/18 @ 13:30 by Akanksha Thomas) Healthcare-associated pneumonia (Acute) Renal transplant rejection (Acute) GERD (gastroesophageal reflux disease) (Acute) History of cytomegalovirus infection (Acute) history of failed renal transplant (Acute) Sepsis (Acute) JENNIFFER (acute kidney injury) (Resolved) The patient is a 47 year old F with multiple comorbidities including 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 Patient has cough with yellow sputum. She also had sweating and feeling mild headache last night and during dialysis today she had a fever 102.8 Fahrenheit. Her vitals in the dialysis center was heart rate 100/min, blood pressure 178/85. She is on home oxygen 2 L during the day and 3 L during sleep. She had recurrent pneumonia first in April 2018 and then in August 2017 which was sepsis secondary to bilateral lower lobes Streptococcus pneumonia and streptococcal bacteremia and was transferred to [facility] for kidney transplant history where she was intubated on ventilator for about 2 weeks and was discharged almost 3 weeks. Patient is on dialysis and was sent from dialysis center to ER. Basic labs show significant leukocytosis 32.3 thousand with left shift, BUN/creatinine 38/2.36, K2.8. Chest x-ray shows left [id number]-up-[id number] pleural effusion with underlying infiltrate and bibasilar atelectasis. 1. Fever, tachycardia, tachypnea and leukocytosis possible secondary to bilateral lower lobes, complicated pneumonia: Patient is being admitted in PCU. Discussed with ID and consult requested. He suggested to continue vancomycin and Zosyn. Follow-up blood cultures x2, sputum culture and UA. If patient persist fever, despite being on Vanco and Zosyn will need to consider to add antifungal treatment. Patient has appointment with [facility] next Friday to consider for jejunostomy tube and AV fistula but I think this might be postponed. This was stressed with patient's father 2. ESRD after kidney transplant rejection mostly secondary to chemoradiation as per patient: Patient follows Dr. Mcdaniel who is been consulted. 3. History of recurrent pneumonia, 3 times since April 2018 with left [id number] pleural effusion: Repeat repeat chest x-ray PA and lateral tomorrow morning. 4. Other chronic comorbidities include hypertension, history of cytomegalovirus infection, GERD, gastric cancer status post near total gastrectomy and chemoradiation: Multiple comorbidities complicates the present care and expect difficult and delay recovery. 5. Severe protein calorie malnutrition with decreased suboptimal energy intake and generalized muscle atrophy of extremities, intercostal and paravertebral muscle atrophy will clinical rehabilitation specialist consult. Patient states she gets TPN from same dialysis catheter to purple port DVT prophylaxis: Heparin 5000 units of cutaneous twice daily Clinical Impression(s) from Imaging Studies Chest X-Ray 09/22/18 10:50 IMPRESSION: Small to moderate sized left pleural effusion with bibasilar atelectasis and/or infiltration superimposed on CHF. Code Visit Inpatient E&M: 45098 Init Hosp L3
--- NOTE | 2018-09-22 12:53 | HP.PCM_ITS ---
Problem List (1) Chronic renal failure, stage 5 Status: Chronic (2) Problem with dialysis access Status: Chronic (3) Renal transplant rejection Status: Acute (4) GERD (gastroesophageal reflux disease) Status: Acute (5) History of cytomegalovirus infection Status: Acute (6) history of failed renal transplant Status: Acute (7) Sepsis Status: Acute Qualifiers: Sepsis type: sepsis due to unspecified organism Qualified Code(s): A41.9 - Sepsis, unspecified organism (8) Pneumonia, bacterial Status: Chronic (9) CKD (chronic kidney disease) stage 4, GFR 15-29 ml/min Status: Chronic (10) History of renal transplant Status: Chronic (11) History of gastric cancer Status: Chronic (12) Essential hypertension Status: Chronic (13) Anemia, chronic renal failure Status: Chronic Qualifiers: Chronic kidney disease stage: stage 4 (severe) Qualified Code(s): N18.4 - Chronic kidney disease, stage 4 (severe); D63.1 - Anemia in chronic kidney disease (14) Healthcare-associated pneumonia Status: Acute History of Present Illness Date of Admission: 09/22/18 Chief Complaint: Shortness of breath, cough and fever The patient is a 47 year old F with multiple comorbidities including 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 Patient has cough with yellow sputum. She also had sweating and feeling mild headache last night and during dialysis today she had a fever 102.8 Fahrenheit. Her vitals in the dialysis center was heart rate 100/min, blood pressure 178/85. She is on home oxygen 2 L during the day and 3 L during sleep. She had recurrent pneumonia first in April 2018 and then in August 2017 which was sepsis secondary to bilateral lower lobes Streptococcus pneumonia and streptococcal bacteremia and was transferred to [facility] for kidney transplant history where she was intubated on ventilator for about 2 weeks and was discharged almost 3 weeks. Patient is on dialysis and was sent from dialysis center to ER. Basic labs show significant leukocytosis 32.3 thousand with left shift, BUN/creatinine 38/2.36, K2.8. Chest x-ray shows left rogxh-oe-ssewyhdr pleural effusion with underlying infiltrate and bibasilar atelectasis. Patient had dose of vancomycin, cefazolin and Phenergan in dialysis center. Patient got Zosyn 4.5 g in ER. 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.11 GERD (gastroesophageal reflux disease) (Acute) K21.9 History of cytomegalovirus infection (Acute) Z86.19 history of failed renal transplant (Acute) Sepsis (Acute) A41.9 Pneumonia, bacterial (Chronic) J15.9 JENNIFFER (acute kidney injury) (Resolved) N17.9 CKD (chronic kidney disease) stage 4, GFR 15-29 ml/min (Chronic) N18.4 History of gastric cancer (Chronic) Z85.028 Essential hypertension (Chronic) I10 Anemia, chronic renal failure (Chronic) N18.9, D63.1 History of gastrectomy Z90.3 Allergies Sulfa (Sulfonamide Antibiotics) Allergy (Verified 09/22/18 10:32) Hives NSAIDS (Non-Steroidal Anti-Inflamma Adverse Reaction (Verified 09/22/18 10:32) Other Home Medications: Ambulatory Orders Medication Instructions Recorded Cyanocobalamin [Vitamin B12] 1,000 mcg IM Q30D 07/03/17 Dronabinol [Marinol] 2.5 mg PO 4X/DAY 07/03/17 Gabapentin [Neurontin] 300 mg PO BIDCM 07/03/17 Levonorgestrel [Mirena] 1 ea VAGINAL UD 07/03/17 Prednisone 5 mg PO DAILY 07/03/17 Vits [Prenatabs FA ] 1 tab PO DAILY 07/03/17 Tizanidine HCl [Zanaflex] 4 mg PO BID 04/27/18 Biotin 10,000 mcg PO DAILY 05/05/18 oxycodone-acetaminophen 5 mg-325 1 tab PO Q6H 02/12/19 mg tablet pantoprazole 40 mg tablet,delayed 40 mg PO BID 07/22/18 release Surgical History: Surgical History (Last Reviewed 07/22/18 @ 13:30 by Akanksha Thomas) History of renal transplant (Chronic) Z94.0 s/p left arteriovenous fistula creation Onset Date: ~05/06/18 Surgical History: - Smoking Status: Never smoker - *Family History Maternal History Items: No pertinent history Review of Systems Constitutional: Reports: Anorexia, Chills, Fever, Weakness HEENT: Denies: Head Aches, Sinus Congestion, Sinus Drainage Cardiovascular: Denies: Chest Pain, Palpitations Respiratory: Reports: Shortness of Breath, Shortness of breath upon exertion. Denies: Cough, Shortness of breath at rest, Sputum production Gastrointestinal: Denies: Abdominal Pain, Nausea, Vomiting Genitourinary: Reports: Frequency, - - Hemodialysis. Denies: Dysuria Musculoskeletal: Reports: Joint Pain. Denies: Joint Tenderness Skin: Denies: Rash, Wounds Neurological: Denies: Numbness, Tingling, Focal weakness Psychiatric: Denies: Anxiety, Depression, Homicidal Ideations, Suicidal Ideations Hematologic/ Lymphatic: Denies: Easy Bruising, Easy Bleeding VTE Information - Inpt Only VTE Present on Admission: No VTE Mechan Device Prophylaxis: None VTE Pharm Prophylaxis ordered?: Yes Patient Problems: Active and Suspected Problems (Last Reviewed 07/22/18 @ 13:30 by Akanksha Thomas) Healthcare-associated pneumonia (Acute) - Physical Exam General: Alert, Oriented x3, Cooperative HEENT: Atraumatic, PERRLA, EOMI, Normocephalic Oral: Dry Mucosa Neck: Supple, No JVD, Negative Carotid Bruits, - - Right subclavian dialysis catheter. Gets TPN through the purple port Lungs: Diminished - Air entry diminished in bilateral lung bases, more on left, Rales, Short of Breath Cardiovascular: Regular Rhythm, Normal S1, Normal S2, No murmurs, Tachycardic Abdomen: Bowel Sounds Present, Soft, Non Tender Extremities: No edema, Capillary Refill Less than 3 Seconds Skin: No rashes, No breakdown Musculoskeletal: No Tenderness to Palpation of Joints or Extremities, Arthritic Changes, Muscle Wasting Neurological: Cranial nerves II-XII grossly intact, Deep Tendon Reflexes 2+/4 and Symmetrical Psych/Mental Status: Normal Affect, Appropriate Vital Signs Temp Pulse Resp BP Pulse Ox 99.9 F H 101 H 17 138/83 H 96 09/22/18 11:41 09/22/18 12:06 09/22/18 12:06 09/22/18 12:06 09/22/18 12:06 Oxygen Flow Rate (L/min) 3 Oxygen Delivery Method Nasal Cannula Weight: 79 lb 12.917 oz Body Mass Index (BMI) 16.1 Finger Stick Blood Glucose 104 Laboratory Tests Past 24 Hrs 09/22/18 09/22/18 09/22/18 11:20 11:20 11:20 WBC 32.3 H* RBC 3.01 L Hgb 9.9 L Hct 30.9 L MCV 102.7 H MCH 32.9 H MCHC 32.0 RDW 20.9 H RDW Differential 78.6 H Plt Count 125 L MPV 11.2 Immature Gran % (Auto) 0.300 Neut % (Auto) 92.4 H Lymph % (Auto) 2.0 L [place] % (Auto) 4.3 Eos % (Auto) 0.9 Baso % (Auto) 0.1 Absolute Neuts (auto) 29.8 H Absolute Lymphs (auto) 0.63 L Total Counted Not Reportable Diff Path Review May foll Anisocytosis 2+ Sodium 136 Potassium 2.8 L Chloride 101 Carbon Dioxide 30.0 Anion Gap 5 BUN 38 H Creatinine 2.36 H Estim Creat Clear Calc 17.02 Est GFR (MDRD) Af Amer 28 L Est GFR (MDRD) Non-Af 24 L BUN/Creatinine Ratio 16.1 Glucose 63 L Lactic Acid 1.6 Calcium 8.0 L Assessment/Plan All Active Problems (Last Reviewed 07/22/18 @ 13:30 by Akanksha Thomas) Healthcare-associated pneumonia (Acute) Renal transplant rejection (Acute) GERD (gastroesophageal reflux disease) (Acute) History of cytomegalovirus infection (Acute) history of failed renal transplant (Acute) Sepsis (Acute) JENNIFFER (acute kidney injury) (Resolved) The patient is a 47 year old F with multiple comorbidities including 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 Patient has cough with yellow sputum. She also had sweating and feeling mild headache last night and during dialysis today she had a fever 102.8 Fahrenheit. Her vitals in the dialysis center was heart rate 100/min, blood pressure 178/85. She is on home oxygen 2 L during the day and 3 L during sleep. She had recurrent pneumonia first in April 2018 and then in August 2017 which was sepsis secondary to bilateral lower lobes Streptococcus pneumonia and streptococcal bacteremia and was transferred to [facility] for kidney transplant history where she was intubated on ventilator for about 2 weeks and was discharged almost 3 weeks. Patient is on dialysis and was sent from dialysis center to ER. Basic labs show significant leukocytosis 32.3 thousand with left shift, BUN/creatinine 38/2.36, K2.8. Chest x-ray shows left [id number] pleural effusion with underlying infiltrate and bibasilar atelectasis. 1. Fever, tachycardia, tachypnea and leukocytosis possible secondary to bilater al lower lobes, complicated pneumonia: Patient is being admitted in PCU. Discussed with ID and consult requested. He suggested to continue vancomycin and Zosyn. Follow-up blood cultures x2, sputum culture and UA. If patient persist fever, despite being on Vanco and Zosyn will need to consider to add antifungal treatment. Patient has appointment with [facility] next Friday to consider for jejunostomy tube and AV fistula but I think this might be postponed. This was stressed with patient's father 2. ESRD after kidney transplant rejection mostly secondary to chemoradiation as per patient: Patient follows Dr. Mcdaniel who is been consulted. 3. History of recurrent pneumonia, 3 times since April 2018 with left lydqb-[id number]-umihhsdj pleural effusion: Repeat repeat chest x-ray PA and lateral tomorrow morning. 4. Other chronic comorbidities include hypertension, history of cytomegalovirus infection, GERD, gastric cancer status post near total gastrectomy and chemoradiation: Multiple comorbidities complicates the present care and expect difficult and delay recovery. 5. Severe protein calorie malnutrition with decreased suboptimal energy intake and generalized muscle atrophy of extremities, intercostal and paravertebral muscle atrophy will locker attendant consult. Patient states she gets TPN from same dialysis catheter to purple port DVT prophylaxis: Heparin 5000 units of cutaneous twice daily Clinical Impression(s) from Imaging Studies Chest X-Ray 09/22/18 10:50 IMPRESSION: Small to moderate sized left pleural effusion with bibasilar atelectasis and/or infiltration superimposed on CHF. Code Visit Inpatient E&M: 78862 Init Hosp L3
--- NOTE | 2018-09-22 13:40 | CASEMGMT ---
RN CM Assessment Introduced role of RN CM to patient and patient father Lester at bedside.? Patient is alert, oriented and able?to participate in RN CM Assessment. ?Care providers, pharmacy, and demographics verified. Presentation: Fever at HD, low O2 sat Admit Dx: Sepsis with Fever Re-Admit: Yes, 08/17/18-09/11/18- was Transferred to [facility] [place]. Barriers/Issues: None PCP: Deb Gregory Specialists: Nephro- Dr Mcdaniel, Nephro at [facility] Dr Hameed and SOFTWARE QUALITY TESTER Verito Koo. Gastro- Dr Barajas [facility] MMO Rx Benefit: Yes? LNOK: Medardo Valverde LW/HPOA: No, Declines offered information Living Arrangements:?Lives with in [place], however has been staying with her parents in a SS home in [place] since DC from the hospital. 3 steps to enter parents home. ADL?s: Independent with ambulation and ADL's, helps with laundry. Transportation: Prior patient drove, Father or since DC and will upon this hospital DC DME: [employer], Home O2 2L- [employer], [place]. HHC: [facility]. Current HH through [facility] & Supplies for TPN, RN once/week for Lab draw. SNF: None, States does not want to go to SNF Goal: Back to parents home. Does not think will need anything upon DC. DC PLAN: Home w/parents, Resumption of HHC. No additional anticipated needs identified at this time. Mattie Beatty RNCM
--- NOTE | 2018-09-22 14:07 | CASEMGMT ---
RN CM Assessment Introduced role of RN CM to patient and patient father Lester at bedside.? Patient is alert, oriented and able?to participate in RN CM Assessment. ?Care providers, pharmacy, and demographics verified. Presentation: Fever at HD, low O2 sat Admit Dx: Sepsis with Fever Re-Admit: Yes, 08/17/18-09/11/18- was Transferred to [facility] AMS, Status Epilepticus. Barriers/Issues: None. HD [facility], T/TH/Sat, 7am Start time. From Previous ER H&P- Patient has a history of renal transplant in 2010. She had gastric carcinoma and ended up with radiation nephritis and had transplant through the [facility]. 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 Gastro- Dr Barajas Preferred Pharmacy: [facility] Insurance: MMO Rx Benefit: Yes? LNOK: Medardo Valverde LW/HPOA: No, Declines offered information Living Arrangements:?Lives with in [place], however has been staying with her parents in a SS home in [place] since DC from the hospital. 3 steps to enter parents home. ADL?s: Independent with ambulation and ADL's, helps with laundry. Transportation: Prior patient drove, Father or since DC and will upon this hospital DC DME: [employer], Home O2 2L- [employer], [place]. HHC: [facility]. Current HH through [facility] & Supplies for TPN, RN once/week for Lab draw. SNF: None, States does not want to go to SNF Goal: Back to parents home. Does not think will need anything upon DC. DC PLAN: Home w/parents, Resumption of HHC. No additional anticipated needs identified at this time. RUDY Olson
[2018-09-22] MEDS: 0.9% Normal Saline 1,000 ML 100 ML IV (14:14)
--- NOTE | 2018-09-22 14:24 | PCM.RX.CS ---
Consult Pharmacy has been consulted to manage selected antiobiotic: Vancomycin Type of Consult: New start Prior Doses of Antibiotics Received/Current Regimen: VANCOMYCIN 1000MG IV X1 ADMINISTERED PRIOR TO ADMISSION AT DIALYSIS CENTER Labs: Sodium 136 mmol/L (136-145) 09/22/18 11:20 Potassium 2.8 mmol/L (3.5-5.1) L 09/22/18 11:20 Chloride 101 mmol/L (98-107) 09/22/18 11:20 Carbon Dioxide 30.0 mmol/L (21.0-32.0) 09/22/18 11:20 Anion Gap 5 (5-15) 09/22/18 11:20 BUN 38 mg/dL (7-18) H 09/22/18 11:20 Creatinine 2.36 mg/dL (0.55-1.02) H 09/22/18 11:20 Est GFR (MDRD) Af Amer 28 mL/min (>60) L 09/22/18 11:20 Est GFR (MDRD) Non-Af 24 mL/min (>60) L 09/22/18 11:20 BUN/Creatinine Ratio 16.1 RATIO (10-20) 09/22/18 11:20 Glucose 63 mg/dL (74-106) L 09/22/18 11:20 Weight used for dosin kg Estimated Creatinine Clearance: ON HD Goal Trough: 10-15 mcg/mL Pharmacy Plan for Drug Dosing: Pharmacy to manage vancomycin per consult. Per H/P and admission orders, the patient was administered 1g of vancomycin at the dialysis center prior to presentation to [facility]. The patient gets dialysis // per nursing. Will not give additional vancomycin at this time since the patient got an appropriate dose based on TBW prior to arrival. Since the patient did not get initial vancomycin dose here at [facility], will get a random trough level with AM labs and dose per protocol. PLAN/RECOMMENDATIONS 1. Random vancomycin level 09/24/18 with AM labs 2. No vancomycin dose scheduled at this time, will administer dose once random level done on 09/24 3. Pharmacy Service will continue to monitor and adjust dosing as required.
--- NOTE | 2018-09-22 14:30 | PHA.PHARE_ITS ---
Consult Pharmacy has been consulted to manage selected antiobiotic: Vancomycin Type of Consult: New start Prior Doses of Antibiotics Received/Current Regimen: VANCOMYCIN 1000MG IV X1 ADMINISTERED PRIOR TO ADMISSION AT DIALYSIS CENTER Labs: Sodium 136 mmol/L (136-145) 09/22/18 11:20 Potassium 2.8 mmol/L (3.5-5.1) L 09/22/18 11:20 Chloride 101 mmol/L (98-107) 09/22/18 11:20 Carbon Dioxide 30.0 mmol/L (21.0-32.0) 09/22/18 11:20 Anion Gap 5 (5-15) 09/22/18 11:20 BUN 38 mg/dL (7-18) H 09/22/18 11:20 Creatinine 2.36 mg/dL (0.55-1.02) H 09/22/18 11:20 Est GFR (MDRD) Af Amer 28 mL/min (>60) L 09/22/18 11:20 Est GFR (MDRD) Non-Af 24 mL/min (>60) L 09/22/18 11:20 BUN/Creatinine Ratio 16.1 RATIO (10-20) 09/22/18 11:20 Glucose 63 mg/dL (74-106) L 09/22/18 11:20 Weight used for dosin kg Estimated Creatinine Clearance: ON HD Goal Trough: 10-15 mcg/mL Pharmacy Plan for Drug Dosing: Pharmacy to manage vancomycin per consult. Per H/P and admission orders, the patient was administered 1g of vancomycin at the dialysis center prior to pres entation to [facility]. The patient gets dialysis // per nursing. Will not give additional vancomycin at this time since the patient got an appropriate dose based on TBW prior to arrival. Since the patient did not get initial vancomycin dose here at [facility], will get a random trough level with AM labs and dose per protocol. PLAN/RECOMMENDATIONS 1. Random vancomycin level 09/24/18 with AM labs 2. No vancomycin dose scheduled at this time, will administer dose once random level done on 09/24 3. Pharmacy Service will continue to monitor and adjust dosing as required.
[2018-09-22] MEDS: Gabapentin 300 MG Capsule PO (15:06)
[2018-09-22] MEDS: Nepro Liquid 120 ML LIQUID PO ×2 (15:07→21:27)
[2018-09-22] MEDS: Pantoprazole Sodium 40 MG Tablet PO (15:07)
[2018-09-22] MEDS: Metoprolol Tartrate 25 MG Tablet PO ×2 (15:09→21:26)
--- NOTE | 2018-09-22 15:14 | CASEMGMT ---
MONTY SANCHEZ NOTE: To room to talk with pt. Introduced self and role of MONTY SANCHEZ. Pt resting quietly in bed. Alert/oriented. Noted pt has HHC that was set up through [facility]. Inquired with pt about what agency she is current with. Pt states she is not sure of the name of agency. She provided this RN CM with phone number of the nurse who sees her. Call placed to Erica @ . Erica states she is with [facility]. She states that there was not a [facility] agency available to service pt's area after she was discharged from [facility] until the summer and so [facility] is seeing pt in the interim until they are available. She states the pharmacy provides TPN to pt weekly and a nurse sees pt weekly for lab draws. Inquired of Erica what information, orders, etc they would need from [facility] when pt is discharged. She states someone from [facility] would contact MONTY SANCHEZ tomorrow to discuss this. Erica provided with DIGITAL PROGRAM MANAGER CM, Jolene Houston's contact information. Apoorva BRAXTON RN, CM
[2018-09-22] MEDS: Dronabinol 2.5 MG Capsule PO ×2 (15:17→21:26)
[2018-09-22 20:51] LABS: Bedside Glucose 74 mg/dL (70-110)
[2018-09-22] MEDS: Heparin Injection (Vial) 5,000 UNIT/ML VIAL 5000 UNIT SC (21:26)
[2018-09-22] MEDS: Voriconazole 200 MG Tablet PO (21:27)
[2018-09-22] MEDS: 0.9% NaCl Peripheral Flush Adult/Peds IV (21:27)
[2018-09-22] MEDS: tiZANidine HCl 2 MG Tablet 4 MG PO (21:27)
[2018-09-22] MEDS: Albuterol 2.5 MG/3 ML VIAL.NEB. INHALATION (23:08)
[2018-09-23] VITALS (40 sets, daily range): BP systolic 104–144; BP diastolic 67–94; PULSE 81–94; RESP 12–38; TEMP 36.3–37.4; O2SAT 91–100
[2018-09-23] MEDS: 0.9% NaCl Peripheral Flush Adult/Peds IV ×4 (04:58→13:48)
--- NOTE | 2018-09-23 05:17 | PCM.HOSP.N ---
Hospitalist Note Contacted per RN, noted increased O2 needs. From review increased from 2-->5L NC evening prior, then 6 and now VM placement, RR mildly increased, hypoxia high-80s, treated currently for recurrent PNA. Only noting CXR, no CT chest. Labs pending. LA was normal on admit. Notably elevated WBC. ESRD on HD w/ Dr. Mcdaniel consulted. Possibly volume overload in addition to PNA presentation. Will obtain CXR, ABG, add duonebs in addition to PRN albuterol. No sputum Cx yet obtained. Respiratory panel negative. Will trial BIPAP. If CXR notable for overload will contact Dr. Mcdaniel immediately to initiate HD early with noted T, Th, Sat regimen per RN. Will request Pulmonary consultation. If worsened status will further evaluation and potentially transition to the ICU.
--- NOTE | 2018-09-23 05:20 | CCHN_ITS ---
Hospitalist Note Contacted per RN, noted increased O2 needs. From review increased from 2-->5L NC evening prior, then 6 and now VM placement, RR mildly increased, hypoxia high- 80s, treated currently for recurrent PNA. Only noting CXR, no CT chest. Labs pending. LA was normal on admit. Notably elevated WBC. ESRD on HD w/ Dr. Mcdaniel consulted. Possibly volume overload in addition to PNA presentation. Will obtain CXR, ABG, add duonebs in addition to PRN albuterol. No sputum Cx yet obtained. Respiratory panel negative. Will trial BIPAP. If CXR notable for overload will contact Dr. Mcdaniel immediately to initiate HD early with noted T, Th, Sat regimen per RN. Will request Pulmonary consultation. If worsened status will further evaluation and potentially transition to the ICU.
--- NOTE | 2018-09-23 05:20 | RAD_ITS ---
STUDY: X-RAY CHEST REASON FOR EXAM: Female, 47 years old. Shortness of breath TECHNIQUE: Single frontal view of the chest. COMPARISON: September 22, 2018 FINDINGS: Tunneled catheter and right internal gender catheter tips project over the right atrium. EKG leads artifacts. Bilateral pleural effusions with prior study. However vascular congestion/edema. Similar appearance to the diffuse pulmonary opacities. No pneumothorax identified. Degenerative changes are present. The heart is within normal limits in size. RAD/Chest 1 View (Portable) IMPRESSION: No significant interval change when compared to prior radiograph September 22, 2018. There remains bilateral pleural effusions. There is pulmonary vascular congestion/edema. Bilateral pulmonary infiltrates. This may represent asymmetric edema. A infectious process cannot be excluded. Recommend follow-up imaging to resolution. Electronically Signed: Arya Molina, at 6:28 EDT Tel , Service support ,
[2018-09-23 05:21] LABS: Anion Gap 11 (5-15); BUN 50 mg/dL (7-18); BUN/Creat Ratio 15.8 RATIO (10-20); Calcium,Total 7.5 mg/dL (8.5-10.1); Chloride 105 mmol/L (98-107); Creatinine, Serum 3.17 mg/dL (0.55-1.02); EST Glomerular Filtration Rate 17 mL/min (>60); Est Glom Filt Rate - Afr Amer 20 mL/min (>60); Glucose 75 mg/dL (74-106); Magnesium 1.9 mg/dL (1.6-2.6); Potassium 4.2 mmol/L (3.5-5.1); Sodium Level 141 mmol/L (136-145)
[2018-09-23 05:40] LABS: Allen Test POS; Base Excess -2 mmol/L (-2 to +2); Bicarbonate 21.4 mmol/L (22-26); Blood Gas Specimen Type ART; FI02 50; PO2 56 mmHG (75-100); SITE R Radial; SO2 91 % (95-99); Time Given 530; Total Carbon Dioxide 22 mmol/L; pCO2 29.4 mmHg (35-45); pH 7.47 (7.35-7.45)
[2018-09-23 05:42] LABS: Absolute Lymphocyte Count 1.15 X10^3/ul (0.83-4.51); Absolute Neutrophil Count 19.6 X10^3/uL (2.0-7.7); Basophil# 0.05 X10^3/uL; Basophil% 0.2 % (0-1); Eosinophil# 0.78 X10^3/uL; Eosinophils% 3.4 % (0-5); Hematocrit 24.8 % (37-47); Hemoglobin 7.8 g/dl (12.0-15.0); Lymphocyte # 1.15 X10^3/ul (4.0); Lymphocyte % 5.1 % (19-41); Mean Corp Hgb Conc 31.5 g/gl (32-36); Mean Corpuscular Hgb 32.8 pg (27.0-32.0); Mean Corpuscular Volume 104.2 fL (81-99); Monocyte# 1.07 X10^3/uL; Monocyte% 4.7 % (0-10); Neutrophil # 19.59 X10^3/uL (2.7-7.7); Neutrophil % 86.2 % (47-70); Platelet Count 120 K/mm3 (150-450); RBC Distribution Width CV 21.2 % (11.6-14.6); RBC Distribution Width SD 77.3 fl (35.1-43.9); Red Blood Count 2.38 M/mm3 (4.2-5.4); White Blood Count 22.7 K/mm3 (4.4-11.0)
[2018-09-23 05:44] LABS: Differential Indicated SCAN CRITERIA MET; POSITIVE COUNT NO; POSITIVE DIFFERENTIAL NO; POSITIVE MORPHOLOGY YES
[2018-09-23 06:16] LABS: Differential Comment SCAN
[2018-09-23 06:17] LABS: Anisocytosis 1+; Hypochromasia 1+; Microcytosis 1+; Platelet Estimate SLT DEC (ADEQ); Platelet Morphology LARGE; Polychromasia 1+
[2018-09-23] MEDS: Ipratropium/Albuterol Sulfate 3 ML AMPUL.NEB INHALATION ×2 (06:41→19:05)
--- NOTE | 2018-09-23 07:14 | PCM.CON.CC ---
Reason for Consult Date of Consultation: 09/23/18 Reason for Consultation: Respiratory failure History of Present Illness: The patient is a 47-year-old female, with a history as outlined below, who presented to the emergency department on September 22 after experiencing a fever and recent onset of a cough. The patient was reportedly admitted to the [facility] last month, at which time, she was treated for acute respiratory failure secondary to pneumonia. The patient has been on supplemental oxygen at 2 L/min since that time. On presentation to the emergency department, the patient was noted to be febrile, tachycardic and hypertensive. Laboratory evaluation revealed an elevated white blood cell count to 32,000. The patient was also noted to be thrombocytopenic with a platelet count of 125,000. Chemistry profile was notable for a potassium of 2.8 and a creatinine of 2.36. Lactate was within normal limits at 1.6. Plain film chest x-ray revealed sequelae of congestive heart failure along with a moderate sized left-sided pleural effusion. The patient received supplemental IV fluid hydration and was placed on antibiotics. She was then admitted to the progressive care unit for ongoing management. During the horse exerciser hours of September 23, the patient was evaluated by the overnight hospitalist due to increasing hypoxemia. The patient did require the initiation of BiPAP therapy and therefore had to be transition to the medical intensive care unit for ongoing management. As of this morning, the patient's white blood cell count has decreased to 22,000. Her hemoglobin is now down to 7.8 g/dL. Arterial blood gas obtained on a Ventimask revealed a pH of 7.47 with a corresponding PCO2 of 29 and PO2 of 56. 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.11 GERD (gastroesophageal reflux disease) (Acute) K21.9 History of cytomegalovirus infection (Acute) Z86.19 history of failed renal transplant (Acute) Sepsis (Acute) A41.9 Pneumonia, bacterial (Chronic) J15.9 JENNIFFER (acute kidney injury) (Resolved) N17.9 CKD (chronic kidney disease) stage 4, GFR 15-29 ml/min (Chronic) N18.4 History of gastric cancer (Chronic) Z85.028 Essential hypertension (Chronic) I10 Anemia, chronic renal failure (Chronic) N18.9, D63.1 History of gastrectomy Z90.3 Allergies Sulfa (Sulfonamide Antibiotics) Allergy (Verified 09/22/18 10:32) Hives NSAIDS (Non-Steroidal Anti-Inflamma Adverse Reaction (Verified 09/22/18 10:32) Other Home Medications: Ambulatory Orders Medication Instructions Recorded Cyanocobalamin [Vitamin B12] 1,000 mcg IM Q30D 07/03/17 Dronabinol [Marinol] 2.5 mg PO 4X/DAY 07/03/17 Gabapentin [Neurontin] 300 mg PO BIDCM 07/03/17 Levonorgestrel [Mirena] 1 ea VAGINAL UD 07/03/17 Prednisone 5 mg PO DAILY 07/03/17 Vits [Prenatabs FA ] 1 tab PO DAILY 07/03/17 Tizanidine HCl [Zanaflex] 4 mg PO BID 04/27/18 Biotin 10,000 mcg PO DAILY 05/05/18 oxycodone-acetaminophen 5 mg-325 1 tab PO Q6H 06/30/18 mg tablet pantoprazole 40 mg tablet,delayed 40 mg PO BID 07/22/18 release Folic Acid/Vit B Complex and C 0.8 mg PO QHS 09/22/18 [Renal Vitamin Tablet] Hydroxyzine HCl 10 mg PO Q8 PRN 09/22/18 Metoprolol Tartrate [Lopressor 25 mg PO BID 09/22/18 (beta sonya)] Voriconazole 200 mg PO BID 09/22/18 Surgical History: Surgical History (Last Reviewed 07/22/18 @ 13:30 by Akanksha Thomas) History of renal transplant (Chronic) Z94.0 s/p left arteriovenous fistula creation Onset Date: ~05/06/18 Surgical History: - Smoking Status: Never smoker - *Family History Maternal History Items: No pertinent history Review of Systems Constitutional: Denies: Chills, Fever Eyes: Denies: Blurred vision, Double vision HEENT: Denies: Head Aches, Sinus Congestion, Sinus Drainage Cardiovascular: Denies: Chest Pain, Palpitations Respiratory: Reports: Cough, Shortness of Breath, Sputum production Gastrointestinal: Denies: Abdominal Pain, Nausea, Vomiting Genitourinary: Denies: Dysuria Musculoskeletal: Reports: Muscle pain Skin: Denies: Rash, Wounds Neurological: Denies: Numbness, Tingling, Focal weakness Psychiatric: Reports: Anxiety Hematologic/ Lymphatic: Reports: Anemia Patient Problems: Active and Suspected Problems (Last Reviewed 07/22/18 @ 13:30 by Akanksha Thomas) Healthcare-associated pneumonia (Acute) Objective: The patient's most recent lab work, culture data and imaging studies have all been personally reviewed. Respiratory viral panel was negative. Blood cultures are pending. - Physical Exam General: Alert, Oriented x3, Cooperative, No apparent distress, - - Currently resting comfortably in bed on 4 L/min via nasal cannula HEENT: Atraumatic, PERRLA, Normocephalic Oral: No Gingival or Mucosal Lesions/ Ulcerations Neck: Supple, No Nodes, Trachea Midline Lungs: No rhonchi, No wheeze, Diminished Cardiovascular: Regular rate, Regular Rhythm, Normal S1, Normal S2, No murmurs Abdomen: Bowel Sounds Present, Soft, Non Tender Extremities: No clubbing, No cyanosis, No edema Skin: No breakdown Musculoskeletal: Cachexia Lymphatic: No Cervical, Supraclavicular, or Inguinal Adenopathy Neurological: Cranial nerves II-XII grossly intact, Neuro grossly intact Psych/Mental Status: Normal Affect, Appropriate Vital Signs Temp Pulse Resp BP Pulse Ox 99.4 F H 89 23 H 134/94 H 93 09/23/18 06:35 09/23/18 06:45 09/23/18 06:45 09/23/18 06:45 09/23/18 06:45 Oxygen Flow Rate (L/min) 12 Oxygen Delivery Method Bi-pap Weight: 79 lb 5.863 oz Body Mass Index (BMI) 16.0 Finger Stick Blood Glucose 104 Intake and Output for Last 24 Hours 09/21/18 09/22/18 09/23/18 23:59 23:59 23:59 Intake Total 882.3 / 882.3 45.4 / 45.4 Balance 882.3 / 882.3 45.4 / 45.4 Microbiology Past 72 Hours 09/22/18 13:05 Respiratory Panel (PCR) - Final Mucosa - Nose Laboratory Tests Past 24 Hrs 09/22/18 09/22/18 09/22/18 11:20 11:20 11:20 WBC 32.3 H* RBC 3.01 L Hgb 9.9 L Hct 30.9 L MCV 102.7 H MCH 32.9 H MCHC 32.0 RDW 20.9 H RDW Differential 78.6 H Plt Count 125 L MPV 11.2 Immature Gran % (Auto) 0.300 Neut % (Auto) 92.4 H Lymph % (Auto) 2.0 L Camas % (Auto) 4.3 Eos % (Auto) 0.9 Baso % (Auto) 0.1 Absolute Neuts (auto) 29.8 H Absolute Lymphs (auto) 0.63 L Total Counted Not Reportable Differential Comment Diff Path Review May foll Platelet Estimate Plt Morphology Comment Polychromasia Hypochromasia Anisocytosis 2+ Microcytosis Specimen Type Sample Site pH Bicarbonate Actual POC Total CO2 Base Excess O2 Saturation O2 % ABG pCO2 ABG pO2 Jasper Test O2 Delivery Device Blood Gas Notified Whom Blood Gas Notified Time Sodium 136 Potassium 2.8 L Chloride 101 Carbon Dioxide 30.0 Anion Gap 5 BUN 38 H Creatinine 2.36 H Estim Creat Clear Calc 17.02 Est GFR (MDRD) Af Amer 28 L Est GFR (MDRD) Non-Af 24 L BUN/Creatinine Ratio 16.1 Glucose 63 L Lactic Acid 1.6 Calcium 8.0 L Magnesium 09/23/18 09/23/18 09/23/18 04:55 04:55 05:34 WBC 22.7 H RBC 2.38 L Hgb 7.8 L Hct 24.8 L MCV 104.2 H MCH 32.8 H MCHC 31.5 L RDW 21.2 H RDW Differential 77.3 H Plt Count 120 L MPV 12.0 Immature Gran % (Auto) 0.400 Neut % (Auto) 86.2 H Lymph % (Auto) 5.1 L Camas % (Auto) 4.7 Eos % (Auto) 3.4 Baso % (Auto) 0.2 Absolute Neuts (auto) 19.6 H Absolute Lymphs (auto) 1.15 Total Counted Not Reportable Differential Comment SCAN Diff Path Review Platelet Estimate SLT DEC Plt Morphology Comment LARGE Polychromasia 1+ Hypochromasia 1+ Anisocytosis 1+ Microcytosis 1+ Specimen Type ART Sample Site R Radial pH 7.47 H Bicarbonate Actual 21.4 L POC Total CO2 22 Base Excess -2 O2 Saturation 91 L O2 % 50 ABG pCO2 29.4 L ABG pO2 56 L Jasper Test POS O2 Delivery Device Vent Mask Blood Gas Notified Whom HOSP Blood Gas Notified Time 530 Sodium 141 Potassium 4.2 Chloride 105 Carbon Dioxide 25.0 Anion Gap 11 BUN 50 H Creatinine 3.17 H Estim Creat Clear Calc 12.60 Est GFR (MDRD) Af Amer 20 L Est GFR (MDRD) Non-Af 17 L BUN/Creatinine Ratio 15.8 Glucose 75 Lactic Acid Calcium 7.5 L Magnesium 1.9 POC Glucose 09/22/18 20:34 POC Glucose 74 Clinical Impression(s) from Imaging Studies Chest X-Ray 09/22/18 10:50 IMPRESSION: Small to moderate sized left pleural effusion with bibasilar atelectasis and/or infiltration superimposed on CHF. Electronically Signed: Vikas Haney, at 11:34 EDT , Service support , Foot X-Ray 09/22/18 11:38 IMPRESSION: Mild degenerative changes at the first metatarsal phalangeal joint. Dorsal soft tissue swelling. Electronically Signed: Vikas Haney, at 14:28 EDT , Service support , Chest X-Ray 09/23/18 05:20 IMPRESSION: No significant interval change when compared to prior radiograph September 22, 2018. There remains bilateral pleural effusions. There is pulmonary vascular congestion/edema. Bilateral pulmonary infiltrates. This may represent asymmetric edema. A infectious process cannot be excluded. Recommend follow-up imaging to resolution. Electronically Signed: Arya Molina, at 6:28 EDT Tel , Service support , Assessment/Plan Active and Suspected Problems (Last Reviewed 07/22/18 @ 13:30 by Akanksha Thomas) Healthcare-associated pneumonia (Acute) RECOMMENDATIONS: 1. Discontinue morphine, given renal insufficiency. 2. Check BNP and troponin. 3. Nephrology following. Consider ultrafiltration for volume removal. 4. Continue broad-spectrum antimicrobial coverage, pending infectious work-up. 5. Continue to hold immunosuppression regimen. 6. Send type and screen, given evidence of anemia. 7. Obtain and send sputum for culture. IMPRESSIONS: 1. Acute hypoxemic respiratory failure Likely multifactorial in etiology with hypervolemia in the setting of end-stage renal disease along with underlying pulmonary infectious process contributing. At this time, nephrology is planning to proceed with ultrafiltration to assist with volume optimization. The patient will be continued on broad-spectrum antimicrobials, pending infectious work-up. At this time, the patient has been weaned from BiPAP support. Continue supplemental oxygen with a goal to maintain a saturation at or above 90%. Encourage incentive spirometer use and mobilize patient as tolerated. 2. Sepsis secondary to presumptive healthcare associated pneumonia There is some concern for underlying pulmonary infectious process. In addition, the patient has multiple indwelling lines in place, raising the concern for potential line infection. For now, we will plan to continue broad-spectrum antimicrobial coverage, pending infectious work-up. Infectious diseases consultation is also pending. 3. End-stage renal disease on hemodialysis Continue current supportive measures per nephrology recommendations. Agree with holding immunosuppressive regimen. 4. Severe protein calorie malnutrition/hypertension/history of CMV infection/GERD/history of gastric malignancy Complicates care, management, recovery and prognosis. Continue home medications as indicated. Physical therapy and nutritional services to evaluate patient. TIME: 40 minutes of critical care time, independent of procedures, was spent addressing the patient's acute respiratory failure, sepsis secondary to healthcare associated pneumonia, end-stage renal disease on hemodialysis, malnutrition, review of all data and collaboration with the care team. ([id number]) Code Visit 9xxxx: [id number] Critical care first hour
--- NOTE | 2018-09-23 07:21 | CON.PCM_ITS ---
Reason for Consult Date of Consultation: 09/23/18 Reason for Consultation: Respiratory failure History of Present Illness: The patient is a 47-year-old female, with a history as outlined below, who presented to the emergency department on September 22 after experiencing a fever and recent onset of a cough. The patient was reportedly admitted to the [facility] last month, at which time, she was treated for acute respiratory failure secondary to pneumonia. The patient has been on supplemental oxygen at 2 L/min since that time. On presentation to the emergency department, the patient was noted to be febrile, tachycardic and hypertensive. Laboratory evaluation revealed an elevated white blood cell count to 32,000. The patient was also noted to be thrombocytopenic with a platelet count of 125,000. Chemistry profile was notable for a potassium of 2.8 and a creatinine of 2.36. Lactate was within normal limits at 1.6. Plain film chest x-ray revealed sequelae of congestive heart failure along with a moderate sized left-sided pleural effusion. The patient received supplemental IV fluid hydration and was placed on antibiotics. She was then admitted to the progressive care unit for ongoing management. During the media supervisor hours of September 23, the patient was evaluated by the [facility] hospitalist due to increasing hypoxemia. The patient did require the initiation of BiPAP therapy and therefore had to be transition to the medical intensive care unit for ongoing management. As of this morning, the patient's white blood cell count has decreased to 22,000. Her hemoglobin is now down to 7.8 g/dL. Arterial blood gas obtained on a Ventimask revealed a pH of 7.47 with a corresponding PCO2 of 29 and PO2 of 56. 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.11 GERD (gastroesophageal reflux disease) (Acute) K21.9 History of cytomegalovirus infection (Acute) Z86.19 history of failed renal transplant (Acute) Sepsis (Acute) A41.9 Pneumonia, bacterial (Chronic) J15.9 JENNIFFER (acute kidney injury) (Resolved) N17.9 CKD (chronic kidney disease) stage 4, GFR 15-29 ml/min (Chronic) N18.4 History of gastric cancer (Chronic) Z85.028 Essential hypertension (Chronic) I10 Anemia, chronic renal failure (Chronic) N18.9, D63.1 History of gastrectomy Z90.3 Allergies Sulfa (Sulfonamide Antibiotics) Allergy (Verified 09/22/18 10:32) Hives NSAIDS (Non-Steroidal Anti-Inflamma Adverse Reaction (Verified 09/22/18 10:32) Other Home Medications: Ambulatory Orders Medication Instructions Recorded Cyanocobalamin [Vitamin B12] 1,000 mcg IM Q30D 07/03/17 Dronabinol [Marinol] 2.5 mg PO 4X/DAY 07/03/17 Gabapentin [Neurontin] 300 mg PO BIDCM 07/03/17 Levonorgestrel [Mirena] 1 ea VAGINAL UD 07/03/17 Prednisone 5 mg PO DAILY 07/03/17 Vits [Prenatabs FA ] 1 tab PO DAILY 07/03/17 Tizanidine HCl [Zanaflex] 4 mg PO BID 04/27/18 Biotin 10,000 mcg PO DAILY 05/05/18 oxycodone-acetaminophen 5 mg-325 1 tab PO Q6H 06/30/18 mg tablet pantoprazole 40 mg tablet,delayed 40 mg PO BID 07/22/18 release Folic Acid/Vit B Complex and C 0.8 mg PO QHS 09/22/18 [Renal Vitamin Tablet] Hydroxyzine HCl 10 mg PO Q8 PRN 09/22/18 Metoprolol Tartrate [Lopressor 25 mg PO BID 09/22/18 (beta sonya)] Voriconazole 200 mg PO BID 09/22/18 Surgical History: Surgical History (Last Reviewed 07/22/18 @ 13:30 by Akanksha Thomas) History of renal transplant (Chronic) Z94.0 s/p left arteriovenous fistula creation Onset Date: ~05/06/18 Surgical History: - Smoking Status: Never smoker - *Family History Maternal History Items: No pertinent history Review of Systems Constitutional: Denies: Chills, Fever Eyes: Denies: Blurred vision, Double vision HEENT: Denies: Head Aches, Sinus Congestion, Sinus Drainage Cardiovascular: Denies: Chest Pain, Palpitations Respiratory: Reports: Cough, Shortness of Breath, Sputum production Gastrointestinal: Denies: Abdominal Pain, Nausea, Vomiting Genitourinary: Denies: Dysuria Musculoskeletal: Reports: Muscle pain Skin: Denies: Rash, Wounds Neurological: Denies: Numbness, Tingling, Focal weakness Psychiatric: Reports: Anxiety Hematologic/ Lymphatic: Reports: Anemia Patient Problems: Active and Suspected Problems (Last Reviewed 07/22/18 @ 13:30 by Akanksha miranda) Healthcare-associated pneumonia (Acute) Objective: The patient's most recent lab work, culture data and imaging studies have all been personally reviewed. Respiratory viral panel was negative. Blood cultures are pending. - Physical Exam General: Alert, Oriented x3, Cooperative, No apparent distress, - - Currently resting comfortably in bed on 4 L/min via nasal cannula HEENT: Atraumatic, PERRLA, Normocephalic Oral: No Gingival or Mucosal Lesions/ Ulcerations Neck: Supple, No Nodes, Trachea Midline Lungs: No rhonchi, No wheeze, Diminished Cardiovascular: Regular rate, Regular Rhythm, Normal S1, Normal S2, No murmurs Abdomen: Bowel Sounds Present, Soft, Non Tender Extremities: No clubbing, No cyanosis, No edema Skin: No breakdown Musculoskeletal: Cachexia Lymphatic: No Cervical, Supraclavicular, or Inguinal Adenopathy Neurological: Cranial nerves II-XII grossly intact, Neuro grossly intact Psych/Mental Status: Normal Affect, Appropriate Vital Signs Temp Pulse Resp BP Pulse Ox 99.4 F H 89 23 H 134/94 H 93 09/23/18 06:35 09/23/18 06:45 09/23/18 06:45 09/23/18 06:45 09/23/18 06:45 Oxygen Flow Rate (L/min) 12 Oxygen Delivery Method Bi-pap Weight: 79 lb 5.863 oz Body Mass Index (BMI) 16.0 Finger Stick Blood Glucose 104 Intake and Output for Last 24 Hours 09/21/18 09/22/18 09/23/18 23:59 23:59 23:59 Intake Total 882.3 / 882.3 45.4 / 45.4 Balance 882.3 / 882.3 45.4 / 45.4 Microbiology Past 72 Hours 09/22/18 13:05 Respiratory Panel (PCR) - Final Mucosa - Nose Laboratory Tests Past 24 Hrs 09/22/18 09/22/18 09/22/18 11:20 11:20 11:20 WBC 32.3 H* RBC 3.01 L Hgb 9.9 L Hct 30.9 L MCV 102.7 H MCH 32.9 H MCHC 32.0 RDW 20.9 H RDW Differential 78.6 H Plt Count 125 L MPV 11.2 Immature Gran % (Auto) 0.300 Neut % (Auto) 92.4 H Lymph % (Auto) 2.0 L [place] % (Auto) 4.3 Eos % (Auto) 0.9 Baso % (Auto) 0.1 Absolute Neuts (auto) 29.8 H Absolute Lymphs (auto) 0.63 L Total Counted Not Reportable Differential Comment Diff Path Review May foll Platelet Estimate Plt Morphology Comment Polychromasia Hypochromasia Anisocytosis 2+ Microcytosis Specimen Type Sample Site pH Bicarbonate Actual POC Total CO2 Base Excess O2 Saturation O2 % ABG pCO2 ABG pO2 Jasper Test O2 Delivery Device Blood Gas Notified Whom Blood Gas Notified Time Sodium 136 Potassium 2.8 L Chloride 101 Carbon Dioxide 30.0 Anion Gap 5 BUN 38 H Creatinine 2.36 H Estim Creat Clear Calc 17.02 Est GFR (MDRD) Af Amer 28 L Est GFR (MDRD) Non-Af 24 L BUN/Creatinine Ratio 16.1 Glucose 63 L Lactic Acid 1.6 Calcium 8.0 L Magnesium 09/23/18 09/23/18 09/23/18 04:55 04:55 05:34 WBC 22.7 H RBC 2.38 L Hgb 7.8 L Hct 24.8 L MCV 104.2 H MCH 32.8 H MCHC 31.5 L RDW 21.2 H RDW Differential 77.3 H Plt Count 120 L MPV 12.0 Immature Gran % (Auto) 0.400 Neut % (Auto) 86.2 H Lymph % (Auto) 5.1 L [place] % (Auto) 4.7 Eos % (Auto) 3.4 Baso % (Auto) 0.2 Absolute Neuts (auto) 19.6 H Absolute Lymphs (auto) 1.15 Total Counted Not Reportable Differential Comment SCAN Diff Path Review Platelet Estimate SLT DEC Plt Morphology Comment LARGE Polychromasia 1+ Hypochromasia 1+ Anisocytosis 1+ Microcytosis 1+ Specimen Type ART Sample Site R Radial pH 7.47 H Bicarbonate Actual 21.4 L POC Total CO2 22 Base Excess -2 O2 Saturation 91 L O2 % 50 ABG pCO2 29.4 L ABG pO2 56 L Jasper Test POS O2 Delivery Device Vent Mask Blood Gas Notified Whom HOSP Blood Gas Notified Time 530 Sodium 141 Potassium 4.2 Chloride 105 Carbon Dioxide 25.0 Anion Gap 11 BUN 50 H Creatinine 3.17 H Estim Creat Clear Calc 12.60 Est GFR (MDRD) Af Amer 20 L Est GFR (MDRD) Non-Af 17 L BUN/Creatinine Ratio 15.8 Glucose 75 Lactic Acid Calcium 7.5 L Magnesium 1.9 POC Glucose 09/22/18 20:34 POC Glucose 74 Clinical Impression(s) from Imaging Studies Chest X-Ray 09/22/18 10:50 IMPRESSION: Small to moderate sized left pleural effusion with bibasilar atelectasis and/or infiltration superimposed on CHF. Electronically Signed: Vikas Haney, at 11:34 EDT , Service support , Foot X-Ray 09/22/18 11:38 IMPRESSION: Mild degenerative changes at the first metatarsal phalangeal joint. Dorsal soft tissue swelling. Electronically Signed: Vikas Haney, at 14:28 EDT , Service support , Chest X-Ray 09/23/18 05:20 IMPRESSION: No significant interval change when compared to prior radiograph September 22, 2018. There remains bilateral pleural effusions. There is pulmonary vascular congestion/edema. Bilateral pulmonary infiltrates. This may represent asymmetric edema. A infectious process cannot be excluded. Recommend follow-up imaging to resolution. Electronically Signed: Arya Molina, at 6:28 EDT Tel , Service support , Assessment/Plan Active and Suspected Problems (Last Reviewed 07/22/18 @ 13:30 by Akanksha Thomas) Healthcare-associated pneumonia (Acute) RECOMMENDATIONS: 1. Discontinue morphine, given renal insufficiency. 2. Check BNP and troponin. 3. Nephrology following. Consider ultrafiltration for volume removal. 4. Continue broad-spectrum antimicrobial coverage, pending infectious work-up. 5. Continue to hold immunosuppression regimen. 6. Send type and screen, given evidence of anemia. 7. Obtain and send sputum for culture. IMPRESSIONS: 1. Acute hypoxemic respiratory failure Likely multifactorial in etiology with hypervolemia in the setting of end-stage renal disease along with underlying pulmonary infectious process contributing. At this time, nephrology is planning to proceed with ultrafiltration to assist with volume optimization. The patient will be continued on broad-spectrum antimicrobials, pending infectious work-up. At this time, the patient has been weaned from BiPAP support. Continue supplemental oxygen with a goal to maintain a saturation at or above 90%. Encourage incentive spirometer use and mobilize patient as tolerated. 2. Sepsis secondary to presumptive healthcare associated pneumonia There is some concern for underlying pulmonary infectious process. In addition, the patient has multiple indwelling lines in place, raising the concern for potential line infection. For now, we will plan to continue broad-spectrum antimicrobial coverage, pending infectious work-up. Infectious diseases consultation is also pending. 3. End-stage renal disease on hemodialysis Continue current supportive measures per nephrology recommendations. Agree with holding immunosuppressive regimen. 4. Severe protein calorie malnutrition/hypertension/history of CMV infection/G ERD/history of gastric malignancy Complicates care, management, recovery and prognosis. Continue home medications as indicated. Physical therapy and nutritional services to evaluate patient. TIME: 40 minutes of critical care time, independent of procedures, was spent addressing the patient's acute respiratory failure, sepsis secondary to healthcare associated pneumonia, end-stage renal disease on hemodialysis, malnutrition, review of all data and collaboration with the care team. ([id number]) Code Visit 9xxxx: [id number] Critical care first hour
--- NOTE | 2018-09-23 07:53 | PCM.PN.HOSP ---
Patient Problems: Active and Suspected Problems (Last Reviewed 07/22/18 @ 13:30 by Akanksha Thomas) Healthcare-associated pneumonia (Acute) Subjective: Last night events noted. Patient has low-grade fever, T-max 99.4. He is maintained 121/73. Patient got short of breath, dyspnea at rest and ABG was done. Patient was put on BiPAP. Patient was moved to ICU. Environmental Management Specialist has been consulted. Left distal toes and superficial bruise. Patient can move her foot and toes. Labs and x-ray findings discussed with the patient. Vitals/I&O's: Vital Signs Temp Pulse Resp BP Pulse Ox 99.4 F H 89 23 H 134/94 H 93 09/23/18 06:35 09/23/18 06:45 09/23/18 06:45 09/23/18 06:45 09/23/18 06:45 Oxygen Flow Rate (L/min) 12 Oxygen Delivery Method Bi-pap Weight: 79 lb 5.863 oz Body Mass Index (BMI) 16.0 Finger Stick Blood Glucose 104 Intake and Output for Last 24 Hours 09/21/18 09/22/18 09/23/18 23:59 23:59 23:59 Intake Total 882.3 / 882.3 45.4 / 45.4 Balance 882.3 / 882.3 45.4 / 45.4 General: Alert, Oriented x3, Cooperative HEENT: Atraumatic, PERRLA, EOMI, Normocephalic Oral: Dry Mucosa Neck: Supple, No JVD, Negative Carotid Bruits Lungs: Clear to auscultation, Normal air movement, Diminished - On the left lower half. Bilateral pleural effusion, left moderate more than right small. Cardiovascular: Regular rate, No murmurs Abdomen: Bowel Sounds Present, Soft, Non Tender, Non-Distended, - - Scaphoid abdomen. Patient has midline surgical scar. Extremities: No edema, Capillary Refill Less than 3 Seconds Skin: No rashes, No breakdown, - - Bruise present on the toes of left foot Musculoskeletal: No Tenderness to Palpation of Joints or Extremities, Arthritic Changes Neurological: Cranial nerves II-XII grossly intact, Deep Tendon Reflexes 2+/4 and Symmetrical, Neuro grossly intact Psych/Mental Status: Normal Affect, Appropriate Microbiology Past 72 Hours 09/22/18 13:05 Mucosa - Nose Respiratory Panel (PCR) - Final Laboratory Results 09/22/18 11:20: WBC 32.3 H*, RBC 3.01 L, Hgb 9.9 L, Hct 30.9 L, MCV 102.7 H, MCH 32.9 H, MCHC 32.0, RDW 20.9 H, RDW Differential 78.6 H, Plt Count 125 L, MPV 11.2, Immature Gran % (Auto) 0.300, Neut % (Auto) 92.4 H, Lymph % (Auto) 2.0 L, [place] % (Auto) 4.3, Eos % (Auto) 0.9, Baso % (Auto) 0.1, Absolute Neuts (auto) 29.8 H, Absolute Lymphs (auto) 0.63 L, Total Counted Not Reportable, Diff Path Review May foll, Anisocytosis 2+ 09/22/18 11:20: Sodium 136, Potassium 2.8 L, Chloride 101, Carbon Dioxide 30.0, Anion Gap 5, BUN 38 H, Creatinine 2.36 H, Estim Creat Clear Calc 17.02, Est GFR (MDRD) Af Amer 28 L, Est GFR (MDRD) Non-Af 24 L, BUN/Creatinine Ratio 16.1, Glucose 63 L, Calcium 8.0 L 09/22/18 11:20: Lactic Acid 1.6 09/22/18 20:34: POC Glucose 74 09/23/18 04:55: WBC 22.7 H, RBC 2.38 L, Hgb 7.8 L, Hct 24.8 L, MCV 104.2 H, MCH 32.8 H, MCHC 31.5 L, RDW 21.2 H, RDW Differential 77.3 H, Plt Count 120 L, MPV 12.0, Immature Gran % (Auto) 0.400, Neut % (Auto) 86.2 H, Lymph % (Auto) 5.1 L, [place] % (Auto) 4.7, Eos % (Auto) 3.4, Baso % (Auto) 0.2, Absolute Neuts (auto) 19.6 H, Absolute Lymphs (auto) 1.15, Total Counted Not Reportable, Differential Comment SCAN, Platelet Estimate SLT DEC, Plt Morphology Comment LARGE, Polychromasia 1+, Hypochromasia 1+, Anisocytosis 1+, Microcytosis 1+ 09/23/18 04:55: Sodium 141, Potassium 4.2, Chloride 105, Carbon Dioxide 25.0, Anion Gap 11, BUN 50 H, Creatinine 3.17 H, Estim Creat Clear Calc 12.60, Est GFR (MDRD) Af Amer 20 L, Est GFR (MDRD) Non-Af 17 L, BUN/Creatinine Ratio 15.8, Glucose 75, Calcium 7.5 L, Magnesium 1.9 09/23/18 05:34: Specimen Type ART, Sample Site R Radial, pH 7.47 H, Bicarbonate Actual 21.4 L, POC Total CO2 22, Base Excess -2, O2 Saturation 91 L, O2 % 50, ABG pCO2 29.4 L, ABG pO2 56 L, [place] Test POS, O2 Delivery Device Vent Mask, Blood Gas Notified Whom HOSP MD, Blood Gas Notified Time 530 Current Medications Acetaminophen (Tylenol) 650 mg PO Q4H PRN PRN PRN Reason: Mild-Mod Pain/Headache/Fever Albuterol Sulfate (Ventolin Aerosols) 2.5 mg INHALATION Q2H PRN PRN PRN Reason: SHORTNESS OF BREATH Last Admin: 09/22/18 23:08 Dose: 2.5 mg Albuterol/Ipratropium (Duoneb) 3 ml INHALATION Q4HWA.RT [facility] Last Admin: 09/23/18 06:41 Dose: 3 ml Docusate Sodium (Colace) 200 mg PO BID PRN PRN PRN Reason: Constipation Dronabinol (Marinol) 2.5 mg PO 4X/DAY [facility] Last Admin: 09/22/18 21:26 Dose: 2.5 mg [facility]in) [facility] Last Admin: 09/22/18 15:06 Dose: 300 mg Guaifenesin (Mucinex) 1,200 mg PO BID [facility] Last Admin: 09/22/18 21:26 Dose: Not Given Heparin Sodium (Beef Lung) () 50 units IV UD PRN PRN Reason: HEPARIN FLUSH Heparin Sodium (Porcine) (Heparin Na) 5,000 unit SC BID [facility] Last Admin: 09/22/18 21:26 Dose: 5,000 unit Hydroxyzine HCl (Atarax Tablet) 10 mg PO Q8H PRN PRN Reason: ANXIETY Sodium Chloride () 1,000 mls @ 15 mls/hr IV .Q48H [facility] Last Admin: 09/22/18 12:01 Dose: 15 mls/hr Piperacillin Sod/Tazobactam (Sod 3.375 gm/ Sodium Chloride) 50 mls @ 12.5 mls/hr IV Q12 [facility] Last Admin: 09/22/18 21:27 Dose: 12.5 mls/hr Vancomycin IV Pharmacy to Dose (1 ea/ Sodium Chloride) 500 mls @ 250 mls/hr IV PRN PRN; Protocol Metoprolol Tartrate (Lopressor (Beta Lucas)) 25 mg PO BID [facility] Last Admin: 09/22/18 21:26 Dose: 25 mg Multivit/Ca Carb/B Cmplx/FA/Prenat (Nephrocaps, Renaphro) 1 capsule PO QHS [facility] Last Admin: 09/22/18 21:27 Dose: Not Given Nutritional Formula (Nepro Carb Steady) 120 ml PO 4X/DAY [facility] Last Admin: 09/22/18 21:27 Dose: 120 ml Oxycodone HCl (Oxyir) 5 mg PO Q6H PRN PRN PRN Reason: SEVERE PAIN (6-10/10) Pantoprazole Sodium (Protonix) 40 mg PO DAILY [facility] Last Admin: 09/22/18 15:07 Dose: 40 mg Multivit/Folic Acid/Iron ([facility]atabs Fa) [facility] Promethazine HCl (Phenergan) 12.5 mg IV Q4H PRN PRN PRN Reason: NAUSEA/VOMITING Sodium Chloride () 5 - 15 ml IV UD PRN PRN Reason: SALINE FLUSH Last Admin: 09/23/18 04:59 Dose: 10 ml Sodium Chloride () 10 - 20 ml IV UD PRN PRN Reason: PICC FLUSH Tizanidine HCl (Zanaflex) 4 mg PO BID [facility] Last Admin: 09/22/18 21:27 Dose: 4 mg Voriconazole (Vfend) 200 mg PO BID [facility] Last Admin: 09/22/18 21:27 Dose: 200 mg Medical Necessity - Tobacco Use Smoking Status: Never smoker Assessment/Plan All Active Problems (Last Reviewed 07/22/18 @ 13:30 by Akanksha Thomas) Healthcare-associated pneumonia (Acute) Renal transplant rejection (Acute) GERD (gastroesophageal reflux disease) (Acute) History of cytomegalovirus infection (Acute) history of failed renal transplant (Acute) Sepsis (Acute) JENNIFFER (acute kidney injury) (Resolved) The patient is a 47 year old F with multiple comorbidities including 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 Patient has cough with yellow sputum. She also had sweating and feeling mild headache last night and during dialysis today she had a fever 102.8 Fahrenheit. Her vitals in the dialysis center was heart rate 100/min, blood pressure 178/85. She is on home oxygen 2 L during the day and 3 L during sleep. She had recurrent pneumonia first in April 2018 and then in August 2017 which was sepsis secondary to bilateral lower lobes Streptococcus pneumonia and streptococcal bacteremia and was transferred to [facility] for kidney transplant history where she was intubated on ventilator for about 2 weeks and was discharged almost 1 month. Patient is on dialysis and was sent from dialysis center to ER. Basic labs show significant leukocytosis 32.3 thousand with left shift, BUN/creatinine 38/2.36, K2.8. Chest x-ray shows left -moderate pleural effusion with underlying infiltrate and bibasilar atelectasis. 1. Acute hypoxic respiratory failure secondary to bilateral lower lobes complicated Pneumonia (fever, tachycardia, tachypnea and leukocytosis possible secondary to bilateral lower lobes): Patient was initially admitted in PCU and then transferred to ICU on 09/22 night after she got short of breath and dyspnea at rest. ABG 7.47/29.4/56 on 50% FiO2 Ventimask. It is suggestive of acute respiratory alkalosis. Bicarb in BMP 25. Discussed with ID . He suggested to continue vancomycin and Zosyn. Follow-up blood cultures x2, sputum culture and UA. It is already on voriconazole from home. Patient has appointment with [facility] next Friday to consider for jejunostomy tube and AV fistula that this might be postponed. 2. ESRD after kidney transplant rejection mostly secondary to chemoradiation as per patient: Patient follows Dr. Mcdaniel who is being consulted. Patient will need dialysis today. 3. History of recurrent pneumonia, 3 times since April 2018 with left [id number] pleural effusion: Repeat lateral shows left moderate pleural effusion and right small pleural effusion. Bilateral patchy infiltrate. Moderate vascular congestion. Although reported as no significant interval change but it seems worse than yesterday. 4. Left foot soft tissue swelling: Had drop of blood to her left foot. There is soft tissue swelling on x-ray. No bony injury including fracture or dislocation. Other chronic comorbidities include hypertension, history of cytomegalovirus infection, GERD, gastric cancer status post near total gastrectomy and chemoradiation: Multiple comorbidities complicates the present care and expect difficult and delay recovery. 5. Severe protein calorie malnutrition with decreased suboptimal energy intake and generalized muscle atrophy of extremities, intercostal and paravertebral muscle atrophy will dough scaler and mixer consult. Patient states she gets TPN from same dialysis catheter to purple port DVT prophylaxis: Heparin 5000 units of cutaneous twice daily Microbiology Past 72 Hours 09/22/18 13:05 Mucosa - Nose Respiratory Panel (PCR) - Final Laboratory Results 09/22/18 11:20: WBC 32.3 H*, RBC 3.01 L, Hgb 9.9 L, Hct 30.9 L, MCV 102.7 H, MCH 32.9 H, MCHC 32.0, RDW 20.9 H, RDW Differential 78.6 H, Plt Count 125 L, MPV 11.2, Immature Gran % (Auto) 0.300, Neut % (Auto) 92.4 H, Lymph % (Auto) 2.0 L, [place] % (Auto) 4.3, Eos % (Auto) 0.9, Baso % (Auto) 0.1, Absolute Neuts (auto) 29.8 H, Absolute Lymphs (auto) 0.63 L, Total Counted Not Reportable, Diff Path Review May foll, Anisocytosis 2+ 09/22/18 11:20: Sodium 136, Potassium 2.8 L, Chloride 101, Carbon Dioxide 30.0, Anion Gap 5, BUN 38 H, Creatinine 2.36 H, Estim Creat Clear Calc 17.02, Est GFR (MDRD) Af Amer 28 L, Est GFR (MDRD) Non-Af 24 L, BUN/Creatinine Ratio 16.1, Glucose 63 L, Calcium 8.0 L 09/22/18 11:20: Lactic Acid 1.6 09/22/18 20:34: POC Glucose 74 09/23/18 04:55: WBC 22.7 H, RBC 2.38 L, Hgb 7.8 L, Hct 24.8 L, MCV 104.2 H, MCH 32.8 H, MCHC 31.5 L, RDW 21.2 H, RDW Differential 77.3 H, Plt Count 120 L, MPV 12.0, Immature Gran % (Auto) 0.400, Neut % (Auto) 86.2 H, Lymph % (Auto) 5.1 L, [place] % (Auto) 4.7, Eos % (Auto) 3.4, Baso % (Auto) 0.2, Absolute Neuts (auto) 19.6 H, Absolute Lymphs (auto) 1.15, Total Counted Not Reportable, Differential Comment SCAN, Platelet Estimate SLT DEC, Plt Morphology Comment LARGE, Polychromasia 1+, Hypochromasia 1+, Anisocytosis 1+, Microcytosis 1+ 09/23/18 04:55: Sodium 141, Potassium 4.2, Chloride 105, Carbon Dioxide 25.0, Anion Gap 11, BUN 50 H, Creatinine 3.17 H, Estim Creat Clear Calc 12.60, Est GFR (MDRD) Af Amer 20 L, Est GFR (MDRD) Non-Af 17 L, BUN/Creatinine Ratio 15.8, Glucose 75, Calcium 7.5 L, Magnesium 1.9 09/23/18 05:34: Specimen Type ART, Sample Site R Radial, pH 7.47 H, Bicarbonate Actual 21.4 L, POC Total CO2 22, Base Excess -2, O2 Saturation 91 L, O2 % 50, ABG pCO2 29.4 L, ABG pO2 56 L, [place] Test POS, O2 Delivery Device Vent Mask, Blood Gas Notified Whom HOSP MD, Blood Gas Notified Time 530 Clinical Impression(s) from Imaging Studies Chest X-Ray 09/22/18 10:50 IMPRESSION: Small to moderate sized left pleural effusion with bibasilar atelectasis and/or infiltration superimposed on CHF. Foot X-Ray 09/22/18 11:38 IMPRESSION: Mild degenerative changes at the first metatarsal phalangeal joint. Dorsal soft tissue swelling. Chest X-Ray 09/23/18 05:20 IMPRESSION: No significant interval change when compared to prior radiograph September 22, 2018. There remains bilateral pleural effusions. There is pulmonary vascular congestion/edema. Bilateral pulmonary infiltrates. This may represent asymmetric edema. A infectious process cannot be excluded. Recommend follow-up imaging to resolution. Code Visit Inpatient E&M: 62881 Subs Hosp L3
--- NOTE | 2018-09-23 08:00 | PN_ITS ---
Patient Problems: Active and Suspected Problems (Last Reviewed 07/22/18 @ 13:30 by Akanksha Thomas) Healthcare-associated pneumonia (Acute) Subjective: Last night events noted. Patient has low-grade fever, T-max 99.4. He is maintained 121/73. Patient got short of breath, dyspnea at rest and ABG was done. Patient was put on BiPAP. Patient was moved to ICU. 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 Left distal toes and superficial bruise. Patient can move her foot and toes. Labs and x-ray findings discussed with the patient. Vitals/I&O's: Vital Signs Temp Pulse Resp BP Pulse Ox 99.4 F H 89 23 H 134/94 H 93 09/23/18 06:35 09/23/18 06:45 09/23/18 06:45 09/23/18 06:45 09/23/18 06:45 Oxygen Flow Rate (L/min) 12 Oxygen Delivery Method Bi-pap Weight: 79 lb 5.863 oz Body Mass Index (BMI) 16.0 Finger Stick Blood Glucose 104 Intake and Output for Last 24 Hours 09/21/18 09/22/18 09/23/18 23:59 23:59 23:59 Intake Total 882.3 / 882.3 45.4 / 45.4 Balance 882.3 / 882.3 45.4 / 45.4 General: Alert, Oriented x3, Cooperative HEENT: Atraumatic, PERRLA, EOMI, Normocephalic Oral: Dry Mucosa Neck: Supple, No JVD, Negative Carotid Bruits Lungs: Clear to auscultation, Normal air movement, Diminished - On the left lower half. Bilateral pleural effusion, left moderate more than right small. Cardiovascular: Regular rate, No murmurs Abdomen: Bowel Sounds Present, Soft, Non Tender, Non-Distended, - - Scaphoid abdomen. Patient has midline surgical scar. Extremities: No edema, Capillary Refill Less than 3 Seconds Skin: No rashes, No breakdown, - - Bruise present on the toes of left foot Musculoskeletal: No Tenderness to Palpation of Joints or Extremities, Arthritic Changes Neurological: Cranial nerves II-XII grossly intact, Deep Tendon Reflexes 2+/4 and Symmetrical, Neuro grossly intact Psych/Mental Status: Normal Affect, Appropriate Microbiology Past 72 Hours 09/22/18 13:05 Mucosa - Nose Respiratory Panel (PCR) - Final Laboratory Results 09/22/18 11:20: WBC 32.3 H*, RBC 3.01 L, Hgb 9.9 L, Hct 30.9 L, MCV 102.7 H, MCH 32.9 H, MCHC 32.0, RDW 20.9 H, RDW Differential 78.6 H, Plt Count 125 L, MPV 11.2, Immature Gran % (Auto) 0.300, Neut % (Auto) 92.4 H, Lymph % (Auto) 2.0 L, [place] % (Auto) 4.3, Eos % (Auto) 0.9, Baso % (Auto) 0.1, Absolute Neuts (auto) 29.8 H, Absolute Lymphs (auto) 0.63 L, Total Counted Not Reportable, Diff Path Review May foll, Anisocytosis 2+ 09/22/18 11:20: Sodium 136, Potassium 2.8 L, Chloride 101, Carbon Dioxide 30.0, Anion Gap 5, BUN 38 H, Creatinine 2.36 H, Estim Creat Clear Calc 17.02, Est GFR (MDRD) Af Amer 28 L, Est GFR (MDRD) Non-Af 24 L, BUN/Creatinine Ratio 16.1, Glucose 63 L, Calcium 8.0 L 09/22/18 11:20: Lactic Acid 1.6 09/22/18 20:34: POC Glucose 74 09/23/18 04:55: WBC 22.7 H, RBC 2.38 L, Hgb 7.8 L, Hct 24.8 L, MCV 104.2 H, MCH 32.8 H, MCHC 31.5 L, RDW 21.2 H, RDW Differential 77.3 H, Plt Count 120 L, MPV 12.0, Immature Gran % (Auto) 0.400, Neut % (Auto) 86.2 H, Lymph % (Auto) 5.1 L, [place] % (Auto) 4.7, Eos % (Auto) 3.4, Baso % (Auto) 0.2, Absolute Neuts (auto) 19.6 H, Absolute Lymphs (auto) 1.15, Total Counted Not Reportable, Differential Comment SCAN, Platelet Estimate SLT DEC, Plt Morphology Comment LARGE, Polychromasia 1+, Hypochromasia 1+, Anisocytosis 1+, Microcytosis 1+ 09/23/18 04:55: Sodium 141, Potassium 4.2, Chloride 105, Carbon Dioxide 25.0, Anion Gap 11, BUN 50 H, Creatinine 3.17 H, Estim Creat Clear Calc 12.60, Est GFR (MDRD) Af Amer 20 L, Est GFR (MDRD) Non-Af 17 L, BUN/Creatinine Ratio 15.8, Glucose 75, Calcium 7.5 L, Magnesium 1.9 09/23/18 05:34: Specimen Type ART, Sample Site R Radial, pH 7.47 H, Bicarbonate Actual 21.4 L, POC Total CO2 22, Base Excess -2, O2 Saturation 91 L, O2 % 50, ABG pCO2 29.4 L, ABG pO2 56 L, Jasper Test POS, O2 Delivery Device Vent Mask, Blood Gas Notified Whom HOSP MD, Blood Gas Notified Time 530 Current Medications Acetaminophen (Tylenol) 650 mg PO Q4H PRN PRN PRN Reason: Mild-Mod Pain/Headache/Fever Albuterol Sulfate (Ventolin Aerosols) 2.5 mg INHALATION Q2H PRN PRN PRN Reason: SHORTNESS OF BREATH Last Admin: 09/22/18 23:08 Dose: 2.5 mg Albuterol/Ipratropium (Duoneb) 3 ml INHALATION Q4HWA.RT [facility] Last Admin: 09/23/18 06:41 Dose: 3 ml Docusate Sodium (Colace) 200 mg PO BID PRN PRN PRN Reason: Constipation Dronabinol (Marinol) 2.5 mg PO 4X/DAY [facility] Last Admin: 09/22/18 21:26 Dose: 2.5 mg [facility] Admin: 09/22/18 15:06 Dose: 300 mg Guaifenesin (Mucinex) 1,200 mg PO BID [facility] Last Admin: 09/22/18 21:26 Dose: Not Given Heparin Sodium (Beef Lung) () 50 units IV UD PRN PRN Reason: HEPARIN FLUSH Heparin Sodium (Porcine) (Heparin Na) 5,000 unit SC BID [facility] Last Admin: 09/22/18 21:26 Dose: 5,000 unit Hydroxyzine HCl (Atarax Tablet) 10 mg PO Q8H PRN PRN Reason: ANXIETY Sodium Chloride () 1,000 mls @ 15 mls/hr IV .Q48H [facility] Last Admin: 09/22/18 12:01 Dose: 15 mls/hr Piperacillin Sod/Tazobactam (Sod 3.375 gm/ Sodium Chloride) 50 mls @ 12.5 mls/hr IV Q12 [facility] Last Admin: 09/22/18 21:27 Dose: 12.5 mls/hr Vancomycin IV Pharmacy to Dose (1 ea/ Sodium Chloride) 500 mls @ 250 mls/hr IV PRN PRN; Protocol Metoprolol Tartrate (Lopressor (Beta Lucas)) 25 mg PO BID [facility] Last Admin: 09/22/18 21:26 Dose: 25 mg Multivit/Ca Carb/B Cmplx/FA/Prenat (Nephrocaps, Renaphro) 1 capsule PO QHS [facility] Last Admin: 09/22/18 21:27 Dose: Not Given Nutritional Formula (Nepro Carb Steady) 120 ml PO 4X/DAY [facility] Last Admin: 09/22/18 21:27 Dose: 120 ml Oxycodone HCl (Oxyir) 5 mg PO Q6H PRN PRN PRN Reason: SEVERE PAIN (6-10/10) Pantoprazole Sodium (Protonix) 40 mg PO DAILY [facility] Last Admin: 09/22/18 15:07 Dose: 40 mg Multivit/Folic Acid/Iron (Prenatabs Fa) [facility] Promethazine HCl (Phenergan) 12.5 mg IV Q4H PRN PRN PRN Reason: NAUSEA/VOMITING Sodium Chloride () 5 - 15 ml IV UD PRN PRN Reason: SALINE FLUSH Last Admin: 09/23/18 04:59 Dose: 10 ml Sodium Chloride () 10 - 20 ml IV UD PRN PRN Reason: PICC FLUSH Tizanidine HCl (Zanaflex) 4 mg PO BID [facility] Last Admin: 09/22/18 21:27 Dose: 4 mg Voriconazole (Vfend) 200 mg PO BID [facility] Last Admin: 09/22/18 21:27 Dose: 200 mg Medical Necessity - Tobacco Use Smoking Status: Never smoker Assessment/Plan All Active Problems (Last Reviewed 07/22/18 @ 13:30 by Akanksha Thomas) Healthcare-associated pneumonia (Acute) Renal transplant rejection (Acute) GERD (gastroesophageal reflux disease) (Acute) History of cytomegalovirus infection (Acute) history of failed renal transplant (Acute) Sepsis (Acute) JENNIFFER (acute kidney injury) (Resolved) The patient is a 47 year old F with multiple comorbidities including 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 Patient has cough with yellow sputum. She also had sweating and feeling mild headache last night and during dialysis today she had a fever 102.8 Fahrenheit. Her vitals in the dialysis center was heart rate 100/min, blood pressure 178/85. She is on home oxygen 2 L during the day and 3 L during sleep. She had recurrent pneumonia first in April 2018 and then in August 2017 which was sepsis secondary to bilateral lower lobes Streptococcus pneumonia and streptococcal bacteremia and was transferred to [facility] for kidney transplant history where she was intubated on ventilator for about 2 weeks and w as discharged almost 1 month. Patient is on dialysis and was sent from dialysis center to ER. Basic labs show significant leukocytosis 32.3 thousand with left shift, BUN/creatinine 38/2.36, K2.8. Chest x-ray shows left -moderate pleural effusion with underlying infiltrate and bibasilar atelectasis. 1. Acute hypoxic respiratory failure secondary to bilateral lower lobes complicated Pneumonia (fever, tachycardia, tachypnea and leukocytosis possible secondary to bilateral lower lobes): Patient was initially admitted in PCU and then transferred to ICU on 09/22 night after she got short of breath and dyspnea at rest. ABG 7.47/29.4/56 on 50% FiO2 Ventimask. It is suggestive of acute respiratory alkalosis. Bicarb in BMP 25. Discussed with ID . He suggested to continue vancomycin and Zosyn. Follow-up blood cultures x2, sputum culture and UA. It is already on voriconazole from home. Patient has appointment with [facility] next Friday to consider for jejunostomy tube and AV fistula that this might be postponed. 2. ESRD after kidney transplant rejection mostly secondary to chemoradiation as per patient: Patient follows Dr. Mcdaniel who is being consulted. Patient will need dialysis today. 3. History of recurrent pneumonia, 3 times since April 2018 with left [id number] pleural effusion: Repeat lateral shows left moderate pleural effusion and right small pleural effusion. Bilateral patchy infiltrate. Moderate vascular congestion. Although reported as no significant interval change but it seems worse than yesterday. 4. Left foot soft tissue swelling: Had drop of blood to her left foot. There is soft tissue swelling on x-ray. No bony injury including fracture or dislocation. Other chronic comorbidities include hypertension, history of cytomegalovirus infection, GERD, gastric cancer status post near total gastrectomy and chemoradiation: Multiple comorbidities complicates the present care and expect difficult and delay recovery. 5. Severe protein calorie malnutrition with decreased suboptimal energy intake and generalized muscle atrophy of extremities, intercostal and paravertebral muscle atrophy will wood turner consult. Patient states she gets TPN from same dialysis catheter to purple port DVT prophylaxis: Heparin 5000 units of cutaneous twice daily Microbiology Past 72 Hours 09/22/18 13:05 Mucosa - Nose Respiratory Panel (PCR) - Final Laboratory Results 09/22/18 11:20: WBC 32.3 H*, RBC 3.01 L, Hgb 9.9 L, Hct 30.9 L, MCV 102.7 H, MCH 32.9 H, MCHC 32.0, RDW 20.9 H, RDW Differential 78.6 H, Plt Count 125 L, MPV 11.2, Immature Gran % (Auto) 0.300, Neut % (Auto) 92.4 H, Lymph % (Auto) 2.0 L, [place] % (Auto) 4.3, Eos % (Auto) 0.9, Baso % (Auto) 0.1, Absolute Neuts (auto) 29.8 H, Absolute Lymphs (auto) 0.63 L, Total Counted Not Reportable, Diff Path Review May foll, Anisocytosis 2+ 09/22/18 11:20: Sodium 136, Potassium 2.8 L, Chloride 101, Carbon Dioxide 30.0, Anion Gap 5, BUN 38 H, Creatinine 2.36 H, Estim Creat Clear Calc 17.02, Est GFR (MDRD) Af Amer 28 L, Est GFR (MDRD) Non-Af 24 L, BUN/Creatinine Ratio 16.1, Glucose 63 L, Calcium 8.0 L 09/22/18 11:20: Lactic Acid 1.6 09/22/18 20:34: POC Glucose 74 09/23/18 04:55: WBC 22.7 H, RBC 2.38 L, Hgb 7.8 L, Hct 24.8 L, MCV 104.2 H, MCH 32.8 H, MCHC 31.5 L, RDW 21.2 H, RDW Differential 77.3 H, Plt Count 120 L, MPV 12.0, Immature Gran % (Auto) 0.400, Neut % (Auto) 86.2 H, Lymph % (Auto) 5.1 L, [place] % (Auto) 4.7, Eos % (Auto) 3.4, Baso % (Auto) 0.2, Absolute Neuts (auto) 19.6 H, Absolute Lymphs (auto) 1.15, Total Counted Not Reportable, Differential Comment SCAN, Platelet Estimate SLT DEC, Plt Morphology Comment LARGE, Polychromasia 1+, Hypochromasia 1+, Anisocytosis 1+, Microcytosis 1+ 09/23/18 04:55: Sodium 141, Potassium 4.2, Chloride 105, Carbon Dioxide 25.0, Anion Gap 11, BUN 50 H, Creatinine 3.17 H, Estim Creat Clear Calc 12.60, Est GFR (MDRD) Af Amer 20 L, Est GFR (MDRD) Non-Af 17 L, BUN/Creatinine Ratio 15.8, Glucose 75, Calcium 7.5 L, Magnesium 1.9 09/23/18 05:34: Specimen Type ART, Sample Site R Radial, pH 7.47 H, Bicarbonate Actual 21.4 L, POC Total CO2 22, Base Excess -2, O2 Saturation 91 L, O2 % 50, ABG pCO2 29.4 L, ABG pO2 56 L, Jasper Test POS, O2 Delivery Device Vent Mask, Blood Gas Notified Whom HOSP MD, Blood Gas Notified Time 530 Clinical Impression(s) from Imaging Studies Chest X-Ray 09/22/18 10:50 IMPRESSION: Small to moderate sized left pleural effusion with bibasilar atelectasis and/or infiltration superimposed on CHF. Foot X-Ray 09/22/18 11:38 IMPRESSION: Mild degenerative changes at the first metatarsal phalangeal joint. Dorsal soft tissue swelling. Chest X-Ray 09/23/18 05:20 IMPRESSION: No significant interval change when compared to prior radiograph September 22, 2018. There remains bilateral pleural effusions. There is pulmonary vascular congestion/edema. Bilateral pulmonary infiltrates. This may represent asymmetric edema. A infectious process cannot be excluded. Recommend follow-up imaging to resolution. Code Visit Inpatient E&M: 43448 Subs Hosp L3
--- NOTE | 2018-09-23 08:52 | PCM.CONS.R ---
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 She had a fever on dialysis with temp of 102. 2 sets of blood cultures were sent and was started on IV vancomycin 500 mg and Ancef 1 g post treatment. She was sent to the emergency room for fever and cough in an immune compromised host. She was recently discharged from the [facility] after a prolonged hospitalization for pneumonia requiring intubation. She was discharged on antifungal. She required parenteral nutrition as well as protein supplements for malnutrition, anorexia. She has a PICC line as well as a tunneled dialysis catheter. She has an AV fistula we have been waiting for maturation. She was transferred from progressive care unit to intensive care unit last night for respiratory distress, hypoxemia. Currently she is alert and awake on BiPAP. Chest x-ray revealed bilateral pleural effusion left greater than right. On presentation to the emergency department, the patient was noted to be febrile, tachycardic and hypertensive. white blood cell count was elevated at 32,000. WBC is down to 22,000 after IV antibiotics initiated. Cultures pending hemoglobin is 7.8 g/dL. - Allergies Allergies: Allergies Sulfa (Sulfonamide Antibiotics) Allergy (Verified 09/22/18 10:32) Hives NSAIDS (Non-Steroidal Anti-Inflamma Adverse Reaction (Verified 09/22/18 10:32) Other - Current Medications Current Medications: Current Medications Acetaminophen (Tylenol) 650 mg PO Q4H PRN PRN PRN Reason: Mild-Mod Pain/Headache/Fever Albuterol Sulfate (Ventolin Aerosols) 2.5 mg INHALATION Q2H PRN PRN PRN Reason: SHORTNESS OF BREATH Last Admin: 09/22/18 23:08 Dose: 2.5 mg Albuterol/Ipratropium (Duoneb) 3 ml INHALATION Q4HWA.RT SULEIMAN Last Admin: 09/23/18 06:41 Dose: 3 ml Docusate Sodium (Colace) 200 mg PO BID PRN PRN PRN Reason: Constipation Dronabinol (Marinol) 2.5 mg PO 4X/DAY [facility] Last Admin: 09/22/18 21:26 Dose: 2.5 mg Gabapentin (Neurontin) 300 mg PO BIDCM [facility] Last Admin: 09/22/18 15:06 Dose: 300 mg Guaifenesin (Mucinex) 1,200 mg PO BID [facility] Last Admin: 09/22/18 21:26 Dose: Not Given Heparin Sodium (Beef Lung) () 50 units IV UD PRN PRN Reason: HEPARIN FLUSH Heparin Sodium (Porcine) (Heparin Na) 5,000 unit SC BID [facility] Last Admin: 09/22/18 21:26 Dose: 5,000 unit Hydroxyzine HCl (Atarax Tablet) 10 mg PO Q8H PRN PRN Reason: ANXIETY Sodium Chloride () 1,000 mls @ 15 mls/hr IV .Q48H [facility] Last Admin: 09/22/18 12:01 Dose: 15 mls/hr Piperacillin Sod/Tazobactam (Sod 3.375 gm/ Sodium Chloride) 50 mls @ 12.5 mls/hr IV Q12 [facility] Last Admin: 09/22/18 21:27 Dose: 12.5 mls/hr Vancomycin IV Pharmacy to Dose (1 ea/ Sodium Chloride) 500 mls @ 250 mls/hr IV PRN PRN; Protocol Metoprolol Tartrate (Lopressor (Beta Lucas)) 25 mg PO BID [facility] Last Admin: 09/22/18 21:26 Dose: 25 mg Multivit/Ca Carb/B Cmplx/FA/Prenat (Nephrocaps, Renaphro) 1 capsule PO QHS [facility] Last Admin: 09/22/18 21:27 Dose: Not Given Nutritional Formula (Nepro Carb Steady) 120 ml PO 4X/DAY [facility] Last Admin: 09/22/18 21:27 Dose: 120 ml Oxycodone HCl (Oxyir) 5 mg PO Q6H PRN PRN PRN Reason: SEVERE PAIN (6-10/10) Pantoprazole Sodium (Protonix) 40 mg PO DAILY [facility] Last Admin: 09/22/18 15:07 Dose: 40 mg Multivit/Folic Acid/Iron (Prenatabs Fa) [facility] Promethazine HCl (Phenergan) 12.5 mg IV Q4H PRN PRN PRN Reason: NAUSEA/VOMITING Sodium Chloride () 5 - 15 ml IV UD PRN PRN Reason: SALINE FLUSH Last Admin: 09/23/18 04:59 Dose: 10 ml Sodium Chloride () 10 - 20 ml IV UD PRN PRN Reason: PICC FLUSH Tizanidine HCl (Zanaflex) 4 mg PO BID [facility] Last Admin: 09/22/18 21:27 Dose: 4 mg Voriconazole (Vfend) 200 mg PO BID [facility] Last Admin: 09/22/18 21:27 Dose: 200 mg - Past Medical History Past Medical History (Chronic Problems): Chronic Problems (Last Reviewed 07/22/18 @ 13:30 by Akanksha Thomas) Chronic renal failure, stage 5 (Chronic) Problem with dialysis access (Chronic) Pneumonia, bacterial (Chronic) CKD (chronic kidney disease) stage 4, GFR 15-29 ml/min (Chronic) History of renal transplant (Chronic) History of gastric cancer (Chronic) Essential hypertension (Chronic) Anemia, chronic renal failure (Chronic) - Past Surgical History Surgical History: - - 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 Denies: Abdominal Pain, Constipation, Diarrhea - Anorexia, Vomiting Genitourinary: Denies: Dysuria Skin: Denies: Rash Neurological: Reports: - - Generalized weakness, debilitation from prolonged hospitalization Psychiatric: Reports: Anxiety, Depression Hematologic/ Lymphatic: Reports: Anemia. Denies: Hx of blood clot Patient Problems: Active and Suspected Problems (Last Reviewed 07/22/18 @ 13:30 by Akanksha Thomas) Healthcare-associated pneumonia (Acute) - Physical Exam General: Alert, Oriented x3, Cooperative, - - BiPAP HEENT: PERRLA, EOMI Neck: Supple Lungs: Diminished - Left base, - - On BiPAP Cardiovascular: Regular rate Abdomen: Bowel Sounds Present, Soft, Non Tender, Non-Distended Extremities: No edema Musculoskeletal: Cachexia Psych/Mental Status: Normal Affect, Appropriate, Alert and oriented to time, place, person, mood and affect Vital Signs Temp Pulse Resp BP Pulse Ox 99.4 F H 89 23 H 134/94 H 93 09/23/18 06:35 09/23/18 06:45 09/23/18 06:45 09/23/18 06:45 09/23/18 06:45 Oxygen Flow Rate (L/min) 4 Oxygen Delivery Method Nasal Cannula Weight: 36 kg Body Mass Index (BMI) 16.0 Finger Stick Blood Glucose 104 Intake and Output for Last 24 Hours 09/21/18 09/22/18 09/23/18 23:59 23:59 23:59 Intake Total 882.3 / 882.3 45.4 / 45.4 Balance 882.3 / 882.3 45.4 / 45.4 Microbiology Past 72 Hours 09/22/18 13:05 Respiratory Panel (PCR) - Final Mucosa - Nose Laboratory Tests Past 24 Hrs 09/22/18 09/22/18 09/22/18 11:20 11:20 11:20 WBC 32.3 H* RBC 3.01 L Hgb 9.9 L Hct 30.9 L MCV 102.7 H MCH 32.9 H MCHC 32.0 RDW 20.9 H RDW Differential 78.6 H Plt Count 125 L MPV 11.2 Immature Gran % (Auto) 0.300 Neut % (Auto) 92.4 H Lymph % (Auto) 2.0 L Overton % (Auto) 4.3 Eos % (Auto) 0.9 Baso % (Auto) 0.1 Absolute Neuts (auto) 29.8 H Absolute Lymphs (auto) 0.63 L Total Counted Not Reportable Differential Comment Diff Path Review May foll Platelet Estimate Plt Morphology Comment Polychromasia Hypochromasia Anisocytosis 2+ Microcytosis Specimen Type Sample Site pH Bicarbonate Actual POC Total CO2 Base Excess O2 Saturation O2 % ABG pCO2 ABG pO2 Jasper Test O2 Delivery Device Blood Gas Notified Whom Blood Gas Notified Time Sodium 136 Potassium 2.8 L Chloride 101 Carbon Dioxide 30.0 Anion Gap 5 BUN 38 H Creatinine 2.36 H Estim Creat Clear Calc 17.02 Est GFR (MDRD) Af Amer 28 L Est GFR (MDRD) Non-Af 24 L BUN/Creatinine Ratio 16.1 Glucose 63 L Lactic Acid 1.6 Calcium 8.0 L Magnesium Troponin I B-Natriuretic Peptide Blood Type Antibody Screen 09/23/18 09/23/18 09/23/18 04:55 04:55 05:34 WBC 22.7 H RBC 2.38 L Hgb 7.8 L Hct 24.8 L MCV 104.2 H MCH 32.8 H MCHC 31.5 L RDW 21.2 H RDW Differential 77.3 H Plt Count 120 L MPV 12.0 Immature Gran % (Auto) 0.400 Neut % (Auto) 86.2 H Lymph % (Auto) 5.1 L Overton % (Auto) 4.7 Eos % (Auto) 3.4 Baso % (Auto) 0.2 Absolute Neuts (auto) 19.6 H Absolute Lymphs (auto) 1.15 Total Counted Not Reportable Differential Comment SCAN Diff Path Review Platelet Estimate SLT DEC Plt Morphology Comment LARGE Polychromasia 1+ Hypochromasia 1+ Anisocytosis 1+ Microcytosis 1+ Specimen Type ART Sample Site R Radial pH 7.47 H Bicarbonate Actual 21.4 L POC Total CO2 22 Base Excess -2 O2 Saturation 91 L O2 % 50 ABG pCO2 29.4 L ABG pO2 56 L Jasper Test POS O2 Delivery Device Vent Mask Blood Gas Notified Whom HOSP MD Blood Gas Notified Time 530 Sodium 141 Potassium 4.2 Chloride 105 Carbon Dioxide 25.0 Anion Gap 11 BUN 50 H Creatinine 3.17 H Estim Creat Clear Calc 12.60 Est GFR (MDRD) Af Amer 20 L Est GFR (MDRD) Non-Af 17 L BUN/Creatinine Ratio 15.8 Glucose 75 Lactic Acid Calcium 7.5 L Magnesium 1.9 Troponin I B-Natriuretic Peptide Blood Type Antibody Screen 09/23/18 09/23/18 09/23/18 07:23 07:23 07:45 WBC RBC Hgb Hct MCV MCH MCHC RDW RDW Differential Plt Count MPV Immature Gran % (Auto) Neut % (Auto) Lymph % (Auto) Overton % (Auto) Eos % (Auto) Baso % (Auto) Absolute Neuts (auto) Absolute Lymphs (auto) Total Counted Differential Comment Diff Path Review Platelet Estimate Plt Morphology Comment Polychromasia Hypochromasia Anisocytosis Microcytosis Specimen Type Sample Site pH Bicarbonate Actual POC Total CO2 Base Excess O2 Saturation O2 % ABG pCO2 ABG pO2 Jasper Test O2 Delivery Device Blood Gas Notified Whom Blood Gas Notified Time Sodium Potassium Chloride Carbon Dioxide Anion Gap BUN Creatinine Estim Creat Clear Calc Est GFR (MDRD) Af Amer Est GFR (MDRD) Non-Af BUN/Creatinine Ratio Glucose Lactic Acid Calcium Magnesium Troponin I < 0.015 B-Natriuretic Peptide Pending Blood Type Pending Antibody Screen Pending POC Glucose 09/22/18 20:34 POC Glucose 74 Clinical Impression(s) from Imaging Studies Chest X-Ray 09/22/18 10:50 IMPRESSION: Small to moderate sized left pleural effusion with bibasilar atelectasis and/or infiltration superimposed on CHF. Electronically Signed: Vikas Medina, at 11:34 EDT , Service support , Foot X-Ray 09/22/18 11:38 IMPRESSION: Mild degenerative changes at the first metatarsal phalangeal joint. Dorsal soft tissue swelling. Electronically Signed: Vikas Haney, at 14:28 EDT , Service support , Chest X-Ray 09/23/18 05:20 IMPRESSION: No significant interval change when compared to prior radiograph September 22, 2018. There remains bilateral pleural effusions. There is pulmonary vascular congestion/edema. Bilateral pulmonary infiltrates. This may represent asymmetric edema. A infectious process cannot be excluded. Recommend follow-up imaging to resolution. Electronically Signed: Arya Molina, at 6:28 EDT Tel , Service support , Assessment/Plan All Active Problems (Last Reviewed 07/22/18 @ 13:30 by Akanksha Thomas) Healthcare-associated pneumonia (Acute) Renal transplant rejection (Acute) GERD (gastroesophageal reflux disease) (Acute) History of cytomegalovirus infection (Acute) history of failed renal transplant (Acute) Sepsis (Acute) JENNIFFER (acute kidney injury) (Resolved) 1. 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 Failed kidney transplant received from adoptive mother. Will hold on tacrolimus due to her current acute infection. Unclear if she was taking at home prior to admission. Patient states that she was not but the states that she was. 2. Fever with leukocytosis and immune compromised host. Pancultured at the dialysis center yesterday and on admission. ID consulted. Has PICC line in tunneled dialysis catheter that may need to be removed if blood culture positive. Recently hospitalized at [facility] for pneumonia. 3. Failure to thrive has been on TPN and protein supple at home following discharge from [facility]. 4. Anemia with hemoglobin 7.8. EPO on dialysis. 5. Bilateral pleural effusion ultrafiltration today as tolerated. 6. History of CMV gastritis. 7. Discussed with CCM prelim blood cx from dialysis no growth so far Seen on IUF at 1pm, proceeding without incident
--- NOTE | 2018-09-23 08:57 | CON.PCM_ITS ---
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 She had a fever on dialysis with temp of 102. 2 sets of blood cultures were sent and was started on IV vancomycin 500 mg and Ancef 1 g post treatment. She was sent to the emergency room for fever and cough in an immune compromised host. She was recently discharged from the [facility] after a prolonged hospitalization for pneumonia requiring intubation. She was discharged on antifungal. She required parenteral nutrition as well as protein supplements for malnutrition, anorexia. She has a PICC line as well as a tunneled dialysis catheter. She has an AV fistula we have been waiting for maturation. She was transferred from progressive care unit to intensive care unit last night for respiratory distress, hypoxemia. Currently she is alert and awake on BiPAP. Chest x-ray revealed bilateral pleural effusion left greater than right. On presentation to the emergency department, the patient was noted to be febrile, tachycardic and hypertensive. white blood cell count was elevated at 32,000. WBC is down to 22,000 after IV antibiotics initiated. Cultures pending hemoglobin is 7.8 g/dL. - Allergies Allergies: Allergies Sulfa (Sulfonamide Antibiotics) Allergy (Verified 09/22/18 10:32) Hives NSAIDS (Non-Steroidal Anti-Inflamma Adverse Reaction (Verified 09/22/18 10:32) Other - Current Medications Current Medications: Current Medications Acetaminophen (Tylenol) 650 mg PO Q4H PRN PRN PRN Reason: Mild-Mod Pain/Headache/Fever Albuterol Sulfate (Ventolin Aerosols) 2.5 mg INHALATION Q2H PRN PRN PRN Reason: SHORTNESS OF BREATH Last Admin: 09/22/18 23:08 Dose: 2.5 mg Albuterol/Ipratropium (Duoneb) 3 ml INHALATION Q4HWA.RT SULEIMAN Last Admin: 09/23/18 06:41 Dose: 3 ml Docusate Sodium (Colace) 200 mg PO BID PRN PRN PRN Reason: Constipation Dronabinol (Marinol) 2.5 mg PO 4X/DAY [facility] Last Admin: 09/22/18 21:26 Dose: 2.5 mg Gabapentin (Neurontin) 300 mg PO BIDCM [facility] Last Admin: 09/22/18 15:06 Dose: 300 mg Guaifenesin (Mucinex) 1,200 mg PO BID [facility] Last Admin: 09/22/18 21:26 Dose: Not Given Heparin Sodium (Beef Lung) () 50 units IV UD PRN PRN Reason: HEPARIN FLUSH Heparin Sodium (Porcine) (Heparin Na) 5,000 unit SC BID [facility] Last Admin: 09/22/18 21:26 Dose: 5,000 unit Hydroxyzine HCl (Atarax Tablet) 10 mg PO Q8H PRN PRN Reason: ANXIETY Sodium Chloride () 1,000 mls @ 15 mls/hr IV .Q48H [facility] Last Admin: 09/22/18 12:01 Dose: 15 mls/hr Piperacillin Sod/Tazobactam (Sod 3.375 gm/ Sodium Chloride) 50 mls @ 12.5 mls/hr IV Q12 [facility] Last Admin: 09/22/18 21:27 Dose: 12.5 mls/hr Vancomycin IV Pharmacy to Dose (1 ea/ Sodium Chloride) 500 mls @ 250 mls/hr IV PRN PRN; Protocol Metoprolol Tartrate (Lopressor (Beta Lucas)) 25 mg PO BID [facility] Last Admin: 09/22/18 21:26 Dose: 25 mg Multivit/Ca Carb/B Cmplx/FA/Prenat (Nephrocaps, Renaphro) 1 capsule PO QHS [facility] Last Admin: 09/22/18 21:27 Dose: Not Given Nutritional Formula (Nepro Carb Steady) 120 ml PO 4X/DAY [facility] Last Admin: 09/22/18 21:27 Dose: 120 ml Oxycodone HCl (Oxyir) 5 mg PO Q6H PRN PRN PRN Reason: SEVERE PAIN (6-10/10) Pantoprazole Sodium (Protonix) 40 mg PO DAILY [facility] Last Admin: 09/22/18 15:07 Dose: 40 mg Multivit/Folic Acid/Iron ([facility]abs [facility]) [facility] Promethazine HCl (Phenergan) 12.5 mg IV Q4H PRN PRN PRN Reason: NAUSEA/VOMITING Sodium Chloride () 5 - 15 ml IV UD PRN PRN Reason: SALINE FLUSH Last Admin: 09/23/18 04:59 Dose: 10 ml Sodium Chloride () 10 - 20 ml IV UD PRN PRN Reason: PICC FLUSH Tizanidine HCl (Zanaflex) 4 mg PO BID [facility] Last Admin: 09/22/18 21:27 Dose: 4 mg Voriconazole (Vfend) 200 mg PO BID [facility] Last Admin: 09/22/18 21:27 Dose: 200 mg - Past Medical History Past Medical History (Chronic Problems): Chronic Problems (Last Reviewed 07/22/18 @ 13:30 by Akanksha Thomas) Chronic renal failure, stage 5 (Chronic) Problem with dialysis access (Chronic) Pneumonia, bacterial (Chronic) CKD (chronic kidney disease) stage 4, GFR 15-29 ml/min (Chronic) History of renal transplant (Chronic) History of gastric cancer (Chronic) Essential hypertension (Chronic) Anemia, chronic renal failure (Chronic) - Past Surgical History Surgical History: - - 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 Denies: Abdominal Pain, Constipation, Diarrhea - Anorexia, Vomiting Genitourinary: Denies: Dysuria Skin: Denies: Rash Neurological: Reports: - - Generalized weakness, debilitation from prolonged hospitalization Psychiatric: Reports: Anxiety, Depression Hematologic/ Lymphatic: Reports: Anemia. Denies: Hx of blood clot Patient Problems: Active and Suspected Problems (Last Reviewed 07/22/18 @ 13:30 by Akanksha Thomas) Healthcare-associated pneumonia (Acute) - Physical Exam General: Alert, Oriented x3, Cooperative, - - BiPAP HEENT: PERRLA, EOMI Neck: Supple Lungs: Diminished - Left base, - - On BiPAP Cardiovascular: Regular rate Abdomen: Bowel Sounds Present, Soft, Non Tender, Non-Distended Extremities: No edema Musculoskeletal: Cachexia Psych/Mental Status: Normal Affect, Appropriate, Alert and oriented to time, place, person, mood and affect Vital Signs Temp Pulse Resp BP Pulse Ox 99.4 F H 89 23 H 134/94 H 93 09/23/18 06:35 09/23/18 06:45 09/23/18 06:45 09/23/18 06:45 09/23/18 06:45 Oxygen Flow Rate (L/min) 4 Oxygen Delivery Method Nasal Cannula Weight: 36 kg Body Mass Index (BMI) 16.0 Finger Stick Blood Glucose 104 Intake and Output for Last 24 Hours 09/21/18 09/22/18 09/23/18 23:59 23:59 23:59 Intake Total 882.3 / 882.3 45.4 / 45.4 Balance 882.3 / 882.3 45.4 / 45.4 Microbiology Past 72 Hours 09/22/18 13:05 Respiratory Panel (PCR) - Final Mucosa - Nose Laboratory Tests Past 24 Hrs 09/22/18 09/22/18 09/22/18 11:20 11:20 11:20 WBC 32.3 H* RBC 3.01 L Hgb 9.9 L Hct 30.9 L MCV 102.7 H MCH 32.9 H MCHC 32.0 RDW 20.9 H RDW Differential 78.6 H Plt Count 125 L MPV 11.2 Immature Gran % (Auto) 0.300 Neut % (Auto) 92.4 H Lymph % (Auto) 2.0 L [place] % (Auto) 4.3 Eos % (Auto) 0.9 Baso % (Auto) 0.1 Absolute Neuts (auto) 29.8 H Absolute Lymphs (auto) 0.63 L Total Counted Not Reportable Differential Comment Diff Path Review May foll Platelet Estimate Plt Morphology Comment Polychromasia Hypochromasia Anisocytosis 2+ Microcytosis Specimen Type Sample Site pH Bicarbonate Actual POC Total CO2 Base Excess O2 Saturation O2 % ABG pCO2 ABG pO2 Jasper Test O2 Delivery Device Blood Gas Notified Whom Blood Gas Notified Time Sodium 136 Potassium 2.8 L Chloride 101 Carbon Dioxide 30.0 Anion Gap 5 BUN 38 H Creatinine 2.36 H Estim Creat Clear Calc 17.02 Est GFR (MDRD) Af Amer 28 L Est GFR (MDRD) Non-Af 24 L BUN/Creatinine Ratio 16.1 Glucose 63 L Lactic Acid 1.6 Calcium 8.0 L Magnesium Troponin I B-Natriuretic Peptide Blood Type Antibody Screen 09/23/18 09/23/18 09/23/18 04:55 04:55 05:34 WBC 22.7 H RBC 2.38 L Hgb 7.8 L Hct 24.8 L MCV 104.2 H MCH 32.8 H MCHC 31.5 L RDW 21.2 H RDW Differential 77.3 H Plt Count 120 L MPV 12.0 Immature Gran % (Auto) 0.400 Neut % (Auto) 86.2 H Lymph % (Auto) 5.1 L [place] % (Auto) 4.7 Eos % (Auto) 3.4 Baso % (Auto) 0.2 Absolute Neuts (auto) 19.6 H Absolute Lymphs (auto) 1.15 Total Counted Not Reportable Differential Comment SCAN Diff Path Review Platelet Estimate SLT DEC Plt Morphology Comment LARGE Polychromasia 1+ Hypochromasia 1+ Anisocytosis 1+ Microcytosis 1+ Specimen Type ART Sample Site R Radial pH 7.47 H Bicarbonate Actual 21.4 L POC Total CO2 22 Base Excess -2 O2 Saturation 91 L O2 % 50 ABG pCO2 29.4 L ABG pO2 56 L Jasper Test POS O2 Delivery Device Vent Mask Blood Gas Notified Whom HOSP MD Blood Gas Notified Time 530 Sodium 141 Potassium 4.2 Chloride 105 Carbon Dioxide 25.0 Anion Gap 11 BUN 50 H Creatinine 3.17 H Estim Creat Clear Calc 12.60 Est GFR (MDRD) Af Amer 20 L Est GFR (MDRD) Non-Af 17 L BUN/Creatinine Ratio 15.8 Glucose 75 Lactic Acid Calcium 7.5 L Magnesium 1.9 Troponin I B-Natriuretic Peptide Blood Type Antibody Screen 09/23/18 09/23/18 09/23/18 07:23 07:23 07:45 WBC RBC Hgb Hct MCV MCH MCHC RDW RDW Differential Plt Count MPV Immature Gran % (Auto) Neut % (Auto) Lymph % (Auto) [place] % (Auto) Eos % (Auto) Baso % (Auto) Absolute Neuts (auto) Absolute Lymphs (auto) Total Counted Differential Comment Diff Path Review Platelet Estimate Plt Morphology Comment Polychromasia Hypochromasia Anisocytosis Microcytosis Specimen Type Sample Site pH Bicarbonate Actual POC Total CO2 Base Excess O2 Saturation O2 % ABG pCO2 ABG pO2 Jasper Test O2 Delivery Device Blood Gas Notified Whom Blood Gas Notified Time Sodium Potassium Chloride Carbon Dioxide Anion Gap BUN Creatinine Estim Creat Clear Calc Est GFR (MDRD) Af Amer Est GFR (MDRD) Non-Af BUN/Creatinine Ratio Glucose Lactic Acid Calcium Magnesium Troponin I < 0.015 B-Natriuretic Peptide Pending Blood Type Pending Antibody Screen Pending POC Glucose 09/22/18 20:34 POC Glucose 74 Clinical Impression(s) from Imaging Studies Chest X-Ray 09/22/18 10:50 IMPRESSION: Small to moderate sized left pleural effusion with bibasilar atelectasis and/or infiltration superimposed on CHF. Electronically Signed: Vikas Medina, at 11:34 EDT , Service support , Foot X-Ray 09/22/18 11:38 IMPRESSION: Mild degenerative changes at the first metatarsal phalangeal joint. Dorsal soft tissue swelling. Electronically Signed: Vikas Haney, at 14:28 EDT , Service support , Chest X-Ray 09/23/18 05:20 IMPRESSION: No significant interval change when compared to prior radiograph September 22, 2018. There remains bilateral pleural effusions. There is pulmonary vascular congestion/edema. Bilateral pulmonary infiltrates. This may represent asymmetric edema. A infectious process cannot be excluded. Recommend follow-up imaging to resolution. Electronically Signed: Arya Molina, at 6:28 EDT Tel , Service support , Assessment/Plan All Active Problems (Last Reviewed 07/22/18 @ 13:30 by Akanksha Thomas) Healthcare-associated pneumonia (Acute) Renal transplant rejection (Acute) GERD (gastroesophageal reflux disease) (Acute) History of cytomegalovirus infection (Acute) history of failed renal transplant (Acute) Sepsis (Acute) JENNIFFER (acute kidney injury) (Resolved) 1. 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 Failed kidney transplant received from adoptive mother. Will hold on tacrolimus due to her current acute infection. Unclear if she was taking at home prior to admission. Patient states that she was not but the states that she was. 2. Fever with leukocytosis and immune compromised host. Pancultured at the dialysis center yesterday and on admission. ID consulted. Has PICC line in tunneled dialysis catheter that may need to be removed if blood culture positive. Recently hospitalized at [facility] for pneumonia. 3. Failure to thrive has been on TPN and protein supple at home following discharge from [facility]. 4. Anemia with hemoglobin 7.8. EPO on dialysis. 5. Bilateral pleural effusion ultrafiltration today as tolerated. 6. History of CMV gastritis. 7. Discussed with CCM prelim blood cx from dialysis no growth so far Seen on IUF at 1pm, proceeding without incident
[2018-09-23 09:20] LABS: BNP,B-Type NATRIURETIC PEPTIDE > 5000.0 pg/mL (0-100)
--- NOTE | 2018-09-23 10:00 | CASEMGMT ---
MONTY SANCHEZ NOTE: Call received from Erica @ [facility] ([facility]). She faxed this RN DANIEL pt's home TPN orders that pt was receiving prior to hospitalization. She states pt will need new home TPN order w/hand signed signature when pt is discharged. Apoorva BRAXTON RN, CM
[2018-09-23] MEDS: proMETHazine 25 MG/ML Syringe 12.5 MG IV (10:42)
--- NOTE | 2018-09-23 13:33 | DIALYSIS ---
IUF x2.5 hours completed, tolerated well, 1300mL removed, nausea medication administered pre-treatment, accessed via R chest HD catheter, dressing dated as changed 09/22/18, clamps on line visibly soiled, cleansed as good as possible
[2018-09-23] MEDS: Heparin Injection (Vial) 5,000 UNIT/ML VIAL 5000 UNIT SC ×2 (13:49→22:40)
[2018-09-23 15:04] LABS: Pathologist Review Reviewed
--- NOTE | 2018-09-23 15:18 | CON.PCM_ITS ---
Problem List (1) Sepsis Status: Acute Qualifiers: Sepsis type: sepsis due to unspecified organism Qualified Code(s): A41.9 - Sepsis, unspecified organism Reason for Consult: fever Consulted by: Dr. Ndiaye History of Present Illness: The patient is a 47 year old F with ESRD, failed kidney transplant, recent long stay at [facility] in August with s.pneumo bacteremia. She reports being sent out on vori due to fungal infection seen in pleural fluid. Over past few days, increased SOB with yellow sputum. Had some fever and chills at dialysis yesterday, bcx sent, given dose of vanc/cefazolin, sent to ED. Admitted to icu on vanc/zosyn. Wbc improved. Breathing better with NIPPV. Has been on TPN. No issues with tunneled line or permacath. Full ROS performed and neg except as noted above. - Medical History Past Medical History (Chronic Problems): Chronic Problems (Last Reviewed 07/22/18 @ 13:30 by Akanksha Thomas) Chronic renal failure, stage 5 (Chronic) Problem with dialysis access (Chronic) Pneumonia, bacterial (Chronic) CKD (chronic kidney disease) stage 4, GFR 15-29 ml/min (Chronic) History of renal transplant (Chronic) History of gastric cancer (Chronic) Essential hypertension (Chronic) Anemia, chronic renal failure (Chronic) Allergies/Adverse Reactions: Allergies Sulfa (Sulfonamide Antibiotics) Allergy (Verified 09/22/18 10:32) Hives NSAIDS (Non-Steroidal Anti-Inflamma Adverse Reaction (Verified 09/22/18 10:32) Other Home Medications: Ambulatory Orders Medication Instructions Recorded Cyanocobalamin [Vitamin B12] 1,000 mcg IM Q30D 07/03/17 Dronabinol [Marinol] 2.5 mg PO 4X/DAY 07/03/17 Gabapentin [Neurontin] 300 mg PO BIDCM 07/03/17 Levonorgestrel [Mirena] 1 ea VAGINAL UD 07/03/17 Prednisone 5 mg PO DAILY 07/03/17 Vits [Prenatabs FA ] 1 tab PO DAILY 07/03/17 Tizanidine HCl [Zanaflex] 4 mg PO BID 04/27/18 Biotin 10,000 mcg PO DAILY 05/05/18 oxycodone-acetaminophen 5 mg-325 1 tab PO Q6H 06/30/18 mg tablet pantoprazole 40 mg tablet,delayed 40 mg PO BID 07/22/18 release Folic Acid/Vit B Complex and C 0.8 mg PO QHS 09/22/18 [Renal Vitamin Tablet] Hydroxyzine HCl 10 mg PO Q8 PRN 09/22/18 Metoprolol Tartrate [Lopressor 25 mg PO BID 09/22/18 (beta sonya)] Voriconazole 200 mg PO BID 09/22/18 - Social History Tobacco Use: non-smoker Vital Signs Temp Pulse Resp BP Pulse Ox 98 F 82 20 H 122/83 H 100 09/23/18 13:30 09/23/18 14:00 09/23/18 14:00 09/23/18 14:00 09/23/18 14:00 Oxygen Flow Rate (L/min) 40 Oxygen Delivery Method Bi-pap Weight: 36 kg Body Mass Index (BMI) 16.0 Finger Stick Blood Glucose 104 Microbiology Past 72 Hours 09/22/18 13:05 Respiratory Panel (PCR) - Final Mucosa - Nose Laboratory Tests Past 24 Hrs 09/22/18 09/23/18 09/23/18 11:20 04:55 04:55 WBC 22.7 H RBC 2.38 L Hgb 7.8 L Hct 24.8 L MCV 104.2 H MCH 32.8 H MCHC 31.5 L RDW 21.2 H RDW Differential 77.3 H Plt Count 120 L MPV 12.0 Immature Gran % (Auto) 0.400 Neut % (Auto) 86.2 H Lymph % (Auto) 5.1 L [place] % (Auto) 4.7 Eos % (Auto) 3.4 Baso % (Auto) 0.2 Absolute Neuts (auto) 19.6 H Absolute Lymphs (auto) 1.15 Total Counted Not Reportable Differential Comment SCAN Diff Path Review Reviewed Platelet Estimate SLT DEC Plt Morphology Comment LARGE Polychromasia 1+ Hypochromasia 1+ Anisocytosis 1+ Microcytosis 1+ Specimen Type Sample Site pH Bicarbonate Actual POC Total CO2 Base Excess O2 Saturation O2 % ABG pCO2 ABG pO2 Jasper Test O2 Delivery Device Blood Gas Notified Whom Blood Gas Notified Time Sodium 141 Potassium 4.2 Chloride 105 Carbon Dioxide 25.0 Anion Gap 11 BUN 50 H Creatinine 3.17 H Estim Creat Clear Calc 12.60 Est GFR (MDRD) Af Amer 20 L Est GFR (MDRD) Non-Af 17 L BUN/Creatinine Ratio 15.8 Glucose 75 Calcium 7.5 L Magnesium 1.9 Troponin I B-Natriuretic Peptide Blood Type Antibody Screen 09/23/18 09/23/18 09/23/18 05:34 07:23 07:23 WBC RBC Hgb Hct MCV MCH MCHC RDW RDW Differential Plt Count MPV Immature Gran % (Auto) Neut % (Auto) Lymph % (Auto) [place] % (Auto) Eos % (Auto) Baso % (Auto) Absolute Neuts (auto) Absolute Lymphs (auto) Total Counted Differential Comment Diff Path Review Platelet Estimate Plt Morphology Comment Polychromasia Hypochromasia Anisocytosis Microcytosis Specimen Type ART Sample Site R Radial pH 7.47 H Bicarbonate Actual 21.4 L POC Total CO2 22 Base Excess -2 O2 Saturation 91 L O2 % 50 ABG pCO2 29.4 L ABG pO2 56 L Jasper Test POS O2 Delivery Device Vent Mask Blood Gas Notified Whom HOSP MD Blood Gas Notified Time 530 Sodium Potassium Chloride Carbon Dioxide Anion Gap BUN Creatinine Estim Creat Clear Calc Est GFR (MDRD) Af Amer Est GFR (MDRD) Non-Af BUN/Creatinine Ratio Glucose Calcium Magnesium Troponin I < 0.015 B-Natriuretic Peptide > 5000.0 H Blood Type Antibody Screen 09/23/18 07:45 WBC RBC Hgb Hct MCV MCH MCHC RDW RDW Differential Plt Count MPV Immature Gran % (Auto) Neut % (Auto) Lymph % (Auto) [place] % (Auto) Eos % (Auto) Baso % (Auto) Absolute Neuts (auto) Absolute Lymphs (auto) Total Counted Differential Comment Diff Path Review Platelet Estimate Plt Morphology Comment Polychromasia Hypochromasia Anisocytosis Microcytosis Specimen Type Sample Site pH Bicarbonate Actual POC Total CO2 Base Excess O2 Saturation O2 % ABG pCO2 ABG pO2 Jasper Test O2 Delivery Device Blood Gas Notified Whom Blood Gas Notified Time Sodium Potassium Chloride Carbon Dioxide Anion Gap BUN Creatinine Estim Creat Clear Calc Est GFR (MDRD) Af Amer Est GFR (MDRD) Non-Af BUN/Creatinine Ratio Glucose Calcium Magnesium Troponin I B-Natriuretic Peptide Blood Type B POSITIVE Antibody Screen NEGATIVE - Other Studies Radiology: [] reviewed Other Studies: [] Route of nutrition/ use of supplements: [] Nutritional Intake: [] IV Site: [] Bethea Catheter: [] - Physical Exam General: Alert, Oriented x3, Cooperative HEENT: Atraumatic, PERRLA, EOMI Neck: Supple, No Nodes Lungs: Clear to auscultation, Diminished Cardiovascular: Regular rate, Regular Rhythm, No murmurs Abdomen: Soft, Non Tender, Non-Distended Extremities: No edema Skin: No rashes IV Site: Central Line, without redness Musculoskeletal: No Tenderness to Palpation of Joints or Extremities Neurological: Cranial nerves II-XII grossly intact - Assessment/Plan Antibiotics: [] Assessment/Plan: [] Active and Suspected Problems (Last Reviewed 07/22/18 @ 13:30 by Akanksha Thomas) Healthcare-associated pneumonia (Acute) sepsis (leukocytosis, tachycardia) - concern for pneumonia vs line infection. Will request bcx results from dialysis. Will order sputum cx. Resp viral pcr was neg. Bcx neg here so far. Continue vanc/zosyn. Requesting records from [facility] re:voriconazole and fungal lung infection. She is feeling better, wbc improved, temps improved. Will follow, thank you, d/w nursing and Dr. Ndiaye.
[2018-09-23] MEDS: Metoprolol Tartrate 25 MG Tablet PO ×2 (16:02→22:41)
[2018-09-23] MEDS: guaiFENesin 1,200 MG Tablet 1200 MG PO ×2 (16:03→22:42)
[2018-09-23] MEDS: Nepro Liquid 120 ML LIQUID PO ×2 (16:09→22:40)
[2018-09-23] MEDS: Dronabinol 2.5 MG Capsule PO ×2 (16:12→20:45)
[2018-09-23 16:40] LABS: Color, Urine Yellow (Yellow); Glucose, Dipstick Normal (Normal); Ketone-Dipstick Negative (Negative); Leukocyte Esterase-Dipstick 500 /ul (Negative); Nitrite-Dipstick Negative (Negative); Occult Blood-Urine Negative /ul (Negative); Protein-Dipstick 100 mg/dl (Negative); Specific Gravity, Urine 1.015 (1.002-1.030); Urine Bilirubin Dipstick Negative (Negative); Urine Clarity Clear (Clear); Urine Urobilinogen Normal (Normal)
--- NOTE | 2018-09-23 17:39 | CHAPLAIN ---
Type of Pastoral Visit _x__ Initial Visit ___ Follow-up Visit ___ On-call Visit ___ General Patient Visit ___ Spiritual Assessment ___ Family Conference ___ Bereavement ___ Rapid Response ___ Code Blue ___ Other (describe below) Pastoral Care Referral From _x__ Patient ___ Family ___ Nurse ___ Physician ___ Hand Stamper ___ Termite Renewal Inspector ___ Other (describe below) Sacrament/Intervention _x__ Active listening ___ Anointing ___ Uatsdin ___ Bereavement ___ Communion _x__ Esmer exploration ___ ___ Life review _x__ Prayer ___ Reconciliation ___ Sacrament of Sick _x__ Supportive presence ___ Wedding ___ Other (describe below) Pastoral Comments
[2018-09-23] MEDS: Pantoprazole Sodium 40 MG Tablet PO (17:40)
[2018-09-23] MEDS: Voriconazole 200 MG Tablet PO ×2 (17:40→22:43)
[2018-09-23] MEDS: Gabapentin 300 MG Capsule PO (17:41)
[2018-09-23 20:33] LABS: M R Staph aureus DNA By PCR Negative (Negative); Probe Check PASS; Specimen Processing Control PASS
[2018-09-23] MEDS: Folic Acid/Vitamin B Comp W-C 1 Capsule 1 CAP PO (22:42)
[2018-09-23] MEDS: tiZANidine HCl 2 MG Tablet 4 MG PO (22:43)
[2018-09-24] VITALS (26 sets, daily range): BP systolic 83–133; BP diastolic 50–84; PULSE 75–102; RESP 14–27; TEMP 36.8–37.5; O2SAT 94–100
[2018-09-24] MEDS: hydrOXYzine 10 MG Tablet PO ×2 (03:47→21:09)
--- NOTE | 2018-09-24 04:29 | NURSING ---
Pt c/o pain to RUQ, worse with palpation. Pt states she has had the discomfort all day, but it's worse now. States it feels like gas. BP is low, pt appears relaxed in chair and has been resting quietly with eyes closed through night. Offered to assist pt to bed from the chair. Pt states she's fine in the chair.
[2018-09-24] MEDS: Ipratropium/Albuterol Sulfate 3 ML AMPUL.NEB INHALATION ×3 (07:00→18:54)
--- NOTE | 2018-09-24 07:03 | PN_ITS ---
Subjective: The patient was seen and examined at the bedside this morning. Events from the last 24 hours have been reviewed. The patient is currently afebrile, hemodynamically stable and maintaining appropriate oxygen saturations on 3 L/min via nasal cannula. The patient did undergo ultrafiltration yesterday with 1.3 L of fluid removed. The patient is due for her regular dialysis today. She has been utilizing BiPAP intermittently on a very short basis. [facility] documentation dated September 14 included the following, with regards to the patient's recent hospitalization: Ms. Valverde is a 47 y/o F with hx of gastric cancer s/p gastrectomy, chemo and radiation, radiation-induced CKD s/p kidney transplant now w/ ESRD on HD, HTN, GERD, and chronic gastric ulcers, previously CMV-positive, who initially presented from OSH for seizures and encephalopathy. 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 Objective: The patient's most recent lab work, culture data and imaging studies have all been personally reviewed. Strep pneumonia urinary antigen was positive. Respiratory viral panel was negative. Blood cultures are pending. General: Alert, Cooperative, No apparent distress HEENT: Atraumatic, PERRLA, Normocephalic Oral: Dry Mucosa Neck: Supple, No Nodes, Trachea Midline Lungs: No rhonchi, No wheeze, No rales, Diminished Cardiovascular: Regular rate, Regular Rhythm, Normal S1, Normal S2, No murmurs Abdomen: Bowel Sounds Present, Soft, Non Tender Extremities: No clubbing, No cyanosis, No edema Skin: No breakdown Musculoskeletal: Cachexia, Muscle Wasting Lymphatic: No Cervical, Supraclavicular, or Inguinal Adenopathy Neurological: Cranial nerves II-XII grossly intact, Neuro grossly intact Psych/Mental Status: Normal Affect, Appropriate Vital Signs Temp Pulse Resp BP Pulse Ox 98.2 F 80 21 H 96/66 98 09/24/18 04:00 09/24/18 06:00 09/24/18 06:00 09/24/18 06:00 09/24/18 06:00 Oxygen Flow Rate (L/min) 3 Oxygen Delivery Method Nasal Cannula Weight: 79 lb 5.863 oz Body Mass Index (BMI) 16.0 Finger Stick Blood Glucose 104 Intake and Output for Last 24 Hours 09/22/18 09/23/18 09/24/18 23:59 23:59 23:59 Intake Total 882.3 / 882.3 124.4 / 124.4 509.6 / 509.6 Output Total 1450 / 1450 0 / 0 Balance 882.3 / 882.3 -1325.6 / -1325.6 509.6 / 509.6 Labs (Last 48 Hours) 09/22/18 09/22/18 09/22/18 11:20 11:20 11:20 WBC 32.3 H* RBC 3.01 L Hgb 9.9 L Hct 30.9 L MCV 102.7 H MCH 32.9 H MCHC 32.0 RDW 20.9 H RDW Differential 78.6 H Plt Count 125 L MPV 11.2 Immature Gran % (Auto) 0.300 Neut % (Auto) 92.4 H Lymph % (Auto) 2.0 L [place] % (Auto) 4.3 Eos % (Auto) 0.9 Baso % (Auto) 0.1 Absolute Neuts (auto) 29.8 H Absolute Lymphs (auto) 0.63 L Total Counted Not Reportable Differential Comment Diff Path Review Reviewed Platelet Estimate Plt Morphology Comment Polychromasia Hypochromasia Anisocytosis 2+ Microcytosis Specimen Type Sample Site pH Bicarbonate Actual POC Total CO2 Base Excess O2 Saturation O2 % ABG pCO2 ABG pO2 [place] Test O2 Delivery Device Blood Gas Notified Whom Blood Gas Notified Time Sodium 136 Potassium 2.8 L Chloride 101 Carbon Dioxide 30.0 Anion Gap 5 BUN 38 H Creatinine 2.36 H Estim Creat Clear Calc 17.02 Est GFR (MDRD) Af Amer 28 L Est GFR (MDRD) Non-Af 24 L BUN/Creatinine Ratio 16.1 Glucose 63 L Lactic Acid 1.6 Calcium 8.0 L Magnesium Troponin I B-Natriuretic Peptide Urine Color Urine Clarity Urine pH Ur Specific [place] Urine Protein Urine Glucose (UA) Urine Ketones Urine Occult Blood Urine Nitrite Urine Bilirubin Urine Urobilinogen Ur Leukocyte Esterase Random Vancomycin MRSA (PCR) POC Glucose Blood Type Antibody Screen 09/22/18 09/23/18 09/23/18 20:34 04:55 04:55 WBC 22.7 H RBC 2.38 L Hgb 7.8 L Hct 24.8 L MCV 104.2 H MCH 32.8 H MCHC 31.5 L RDW 21.2 H RDW Differential 77.3 H Plt Count 120 L MPV 12.0 Immature Gran % (Auto) 0.400 Neut % (Auto) 86.2 H Lymph % (Auto) 5.1 L [place] % (Auto) 4.7 Eos % (Auto) 3.4 Baso % (Auto) 0.2 Absolute Neuts (auto) 19.6 H Absolute Lymphs (auto) 1.15 Total Counted Not Reportable Differential Comment SCAN Diff Path Review Platelet Estimate SLT DEC Plt Morphology Comment LARGE Polychromasia 1+ Hypochromasia 1+ Anisocytosis 1+ Microcytosis 1+ Specimen Type Sample Site pH Bicarbonate Actual POC Total CO2 Base Excess O2 Saturation O2 % ABG pCO2 ABG pO2 [place] Test O2 Delivery Device Blood Gas Notified Whom Blood Gas Notified Time Sodium 141 Potassium 4.2 Chloride 105 Carbon Dioxide 25.0 Anion Gap 11 BUN 50 H Creatinine 3.17 H Estim Creat Clear Calc 12.60 Est GFR (MDRD) Af Amer 20 L Est GFR (MDRD) Non-Af 17 L BUN/Creatinine Ratio 15.8 Glucose 75 Lactic Acid Calcium 7.5 L Magnesium 1.9 Troponin I B-Natriuretic Peptide Urine Color Urine Clarity Urine pH Ur Specific [place] Urine Protein Urine Glucose (UA) Urine Ketones Urine Occult Blood Urine Nitrite Urine Bilirubin Urine Urobilinogen Ur Leukocyte Esterase Random Vancomycin MRSA (PCR) POC Glucose 74 Blood Type Antibody Screen 09/23/18 09/23/18 09/23/18 05:34 07:23 07:23 WBC RBC Hgb Hct MCV MCH MCHC RDW RDW Differential Plt Count MPV Immature Gran % (Auto) Neut % (Auto) Lymph % (Auto) [place] % (Auto) Eos % (Auto) Baso % (Auto) Absolute Neuts (auto) Absolute Lymphs (auto) Total Counted Differential Comment Diff Path Review Platelet Estimate Plt Morphology Comment Polychromasia Hypochromasia Anisocytosis Microcytosis Specimen Type ART Sample Site R Radial pH 7.47 H Bicarbonate Actual 21.4 L POC Total CO2 22 Base Excess -2 O2 Saturation 91 L O2 % 50 ABG pCO2 29.4 L ABG pO2 56 L [place] Test POS O2 Delivery Device Vent Mask Blood Gas Notified Whom [facility] Blood Gas Notified Time 530 Sodium Potassium Chloride Carbon Dioxide Anion Gap BUN Creatinine Estim Creat Clear Calc Est GFR (MDRD) Af Amer Est GFR (MDRD) Non-Af BUN/Creatinine Ratio Glucose Lactic Acid Calcium Magnesium Troponin I < 0.015 B-Natriuretic Peptide > 5000.0 H Urine Color Urine Clarity Urine pH Ur Specific [place] Urine Protein Urine Glucose (UA) Urine Ketones Urine Occult Blood Urine Nitrite Urine Bilirubin Urine Urobilinogen Ur Leukocyte Esterase Random Vancomycin MRSA (PCR) POC Glucose Blood Type Antibody Screen 09/23/18 09/23/18 09/23/18 07:45 16:00 16:00 WBC RBC Hgb Hct MCV MCH MCHC RDW RDW Differential Plt Count MPV Immature Gran % (Auto) Neut % (Auto) Lymph % (Auto) [place] % (Auto) Eos % (Auto) Baso % (Auto) Absolute Neuts (auto) Absolute Lymphs (auto) Total Counted Differential Comment Diff Path Review Platelet Estimate Plt Morphology Comment Polychromasia Hypochromasia Anisocytosis Microcytosis Specimen Type Sample Site pH Bicarbonate Actual POC Total CO2 Base Excess O2 Saturation O2 % ABG pCO2 ABG pO2 Jasepr Test O2 Delivery Device Blood Gas Notified Whom Blood Gas Notified Time Sodium Potassium Chloride Carbon Dioxide Anion Gap BUN Creatinine Estim Creat Clear Calc Est GFR (MDRD) Af Amer Est GFR (MDRD) Non-Af BUN/Creatinine Ratio Glucose Lactic Acid Calcium Magnesium Troponin I B-Natriuretic Peptide Urine Color Yellow Urine Clarity Clear Urine pH 6.0 Ur Specific [place] 1.015 Urine Protein 100 H Urine Glucose (UA) Normal Urine Ketones Negative Urine Occult Blood Negative Urine Nitrite Negative Urine Bilirubin Negative Urine Urobilinogen Normal Ur Leukocyte Esterase 500 H Random Vancomycin MRSA (PCR) Negative POC Glucose Blood Type B POSITIVE Antibody Screen NEGATIVE 09/24/18 06:25 WBC RBC Hgb Hct MCV MCH MCHC RDW RDW Differential Plt Count MPV Immature Gran % (Auto) Neut % (Auto) Lymph % (Auto) [place] % (Auto) Eos % (Auto) Baso % (Auto) Absolute Neuts (auto) Absolute Lymphs (auto) Total Counted Differential Comment Diff Path Review Platelet Estimate Plt Morphology Comment Polychromasia Hypochromasia Anisocytosis Microcytosis Specimen Type Sample Site pH Bicarbonate Actual POC Total CO2 Base Excess O2 Saturation O2 % ABG pCO2 ABG pO2 [place] Test O2 Delivery Device Blood Gas Notified Whom Blood Gas Notified Time Sodium Potassium Chloride Carbon Dioxide Anion Gap BUN Creatinine Estim Creat Clear Calc Est GFR (MDRD) Af Amer Est GFR (MDRD) Non-Af BUN/Creatinine Ratio Glucose Lactic Acid Calcium Magnesium Troponin I B-Natriuretic Peptide Urine Color Urine Clarity Urine pH Ur Specific [place] Urine Protein Urine Glucose (UA) Urine Ketones Urine Occult Blood Urine Nitrite Urine Bilirubin Urine Urobilinogen Ur Leukocyte Esterase Random Vancomycin Pending MRSA (PCR) POC Glucose Blood Type Antibody Screen Microbiology 09/23/18 16:00 Urine, Clean Catch Streptococcus pneumoniae Antigen (M - Final Streptococcus pneumonia Ag 09/23/18 16:00 Urine, Clean Catch Legionella Antigen - Final 09/22/18 13:05 Mucosa - Nose Respiratory Panel (PCR) - Final Clinical Impression(s) from Imaging Studies Chest X-Ray 09/22/18 10:50 IMPRESSION: Small to moderate sized left pleural effusion with bibasilar atelectasis and/or infiltration superimposed on CHF. Electronically Signed: Vikas Haney, at 11:34 EDT , Service support , Foot X-Ray 09/22/18 11:38 IMPRESSION: Mild degenerative changes at the first metatarsal phalangeal joint. Dorsal soft tissue swelling. Electronically Signed: Vikas Haney, at 14:28 EDT , Service support , Chest X-Ray 09/23/18 05:20 IMPRESSION: No significant interval change when compared to prior radiograph September 22, 2018. There remains bilateral pleural effusions. There is pulmonary vascular congestion/edema. Bilateral pulmonary infiltrates. This may represent asymmetric edema. A infectious process cannot be excluded. Recommend follow-up imaging to resolution. Electronically Signed: Arya Molina, at 6:28 EDT Tel , Service support , Medical Necessity - Tobacco Use Smoking Status: Never smoker Assessment/Plan All Active Problems (Last Reviewed 07/22/18 @ 13:30 by Akanksha Tohmas) Healthcare-associated pneumonia (Acute) Renal transplant rejection (Acute) GERD (gastroesophageal reflux disease) (Acute) History of cytomegalovirus infection (Acute) history of failed renal transplant (Acute) Sepsis (Acute) JENNIFFER (acute kidney injury) (Resolved) RECOMMENDATIONS: 1. Continue to wean supplemental oxygen to maintain saturations at or above 90%. 2. Continue hemodialysis per nephrology recommendations. 3. Continue antibiotics per ID recommendations. 4. Monitor blood counts daily. Consider transfusion if hemoglobin is less than 7 g/dL. 5. The patient is medically stable for transfer out of the intensive care unit. IMPRESSIONS: 1. Acute hypoxemic respiratory failure Likely multifactorial in etiology with hypervolemia in the setting of end-stage renal disease along with underlying pulmonary infectious process contributing. At this time, nephrology is is following to assist with volume management. The patient will be continued on antimicrobials per infectious diseases recommendations. At this time, the patient has been weaned from continuous BiPAP support. Continue supplemental oxygen with a goal to maintain a saturation at or above 90%. Encourage incentive spirometer use and mobilize patient as tolerated. 2. Sepsis secondary to healthcare associated pneumonia The patient's urinary streptococcal antigen was positive. The patient is on appropriate antibiotics. Infectious diseases is following accordingly. 3. End-stage renal disease on hemodialysis Continue current supportive measures per nephrology recommendations. Agree with holding immunosuppressive regimen. 4. Severe protein calorie malnutrition/hypertension/history of CMV infection/GERD/history of gastric malignancy Complicates care, management, recovery and prognosis. Continue home medications as indicated. Physical therapy and nutritional services to evaluate patient. This note was generated with [employer] dictation software. It may contain incorrect words, spelling, and punctuation that were not noted in checking the note before signing. Code Visit Inpatient E&M: [id number] [facility] L3
[2018-09-24 07:08] LABS: Vancomycin, Random Level 4.2 ug/mL (0.0-15.0)
[2018-09-24 07:34] LABS: Anion Gap 10 (5-15); BUN 63 mg/dL (7-18); BUN/Creat Ratio 15.8 RATIO (10-20); Calcium,Total 7.2 mg/dL (8.5-10.1); Chloride 106 mmol/L (98-107); Creatinine, Serum 3.99 mg/dL (0.55-1.02); EST Glomerular Filtration Rate 13 mL/min (>60); Est Glom Filt Rate - Afr Amer 16 mL/min (>60); Estimated Creatinine Clearance 10.01 ml/min; Glucose 98 mg/dL (74-106); Potassium 4.4 mmol/L (3.5-5.1); Sodium Level 141 mmol/L (136-145)
[2018-09-24 08:21] LABS: Absolute Lymphocyte Count 0.88 X10^3/ul (0.83-4.51); Absolute Neutrophil Count 13.4 X10^3/uL (2.0-7.7); Basophil# 0.03 X10^3/uL; Basophil% 0.2 % (0-1); Eosinophil# 1.05 X10^3/uL; Eosinophils% 6.4 % (0-5); Hematocrit 20.9 % (37-47); Hemoglobin 6.7 g/dl (12.0-15.0); Lymphocyte # 0.88 X10^3/ul (4.0); Lymphocyte % 5.4 % (19-41); Mean Corp Hgb Conc 32.1 g/gl (32-36); Mean Corpuscular Hgb 32.8 pg (27.0-32.0); Mean Corpuscular Volume 102.5 fL (81-99); Mean Platelet Vol. 11.2 fl (6.2-12.0); Monocyte# 0.94 X10^3/uL; Monocyte% 5.8 % (0-10); Platelet Count 112 K/mm3 (150-450); RBC Distribution Width SD 77.9 fl (35.1-43.9); Red Blood Count 2.04 M/mm3 (4.2-5.4); White Blood Count 16.3 K/mm3 (4.4-11.0)
[2018-09-24] MEDS: Dronabinol 2.5 MG Capsule PO ×4 (08:21→21:22)
[2018-09-24 08:22] LABS: Differential Indicated SCAN CRITERIA MET; POSITIVE COUNT NO; POSITIVE DIFFERENTIAL NO; POSITIVE MORPHOLOGY YES
[2018-09-24] MEDS: Gabapentin 300 MG Capsule PO ×2 (08:23→17:37)
[2018-09-24] MEDS: 0.9% NaCl Peripheral Flush Adult/Peds IV ×2 (08:23→12:52)
--- NOTE | 2018-09-24 08:34 | PCM.PN.REN ---
Patient Problems: Active and Suspected Problems (Last Reviewed 07/22/18 @ 13:30 by Akanksha Thomas) Healthcare-associated pneumonia (Acute) Subjective: up to chair off BIPAP. Still with shortness of breath but oxygenation stable on NC - Physical Exam General: Alert, Oriented x3, Cooperative, - - cachectic Lungs: Rales - rt base, diminished left base Abdomen: Bowel Sounds Present, Soft, Non Tender, Non-Distended Extremities: No edema Psych/Mental Status: Normal Affect, Appropriate, Alert and oriented to time, place, person, mood and affect Vital Signs Temp Pulse Resp BP Pulse Ox 98.2 F 89 18 100/58 L 94 09/24/18 04:00 09/24/18 07:00 09/24/18 07:00 09/24/18 07:00 09/24/18 07:00 Oxygen Flow Rate (L/min) 3 Oxygen Delivery Method Bi-pap Weight: 36 kg Body Mass Index (BMI) 16.0 Finger Stick Blood Glucose 104 Intake and Output for Last 24 Hours 09/22/18 09/23/18 09/24/18 23:59 23:59 23:59 Intake Total 882.3 / 882.3 124.4 / 124.4 509.6 / 509.6 Output Total 1450 / 1450 0 / 0 Balance 882.3 / 882.3 -1325.6 / -1325.6 509.6 / 509.6 Microbiology Past 72 Hours 09/23/18 16:00 Streptococcus pneumoniae Antigen (M - Final Urine, Clean Catch Streptococcus pneumonia Ag 09/23/18 16:00 Legionella Antigen - Final Urine, Clean Catch 09/22/18 13:05 Respiratory Panel (PCR) - Final Mucosa - Nose Laboratory Tests Past 24 Hrs 09/22/18 09/23/18 09/23/18 11:20 07:23 07:23 WBC RBC Hgb Hct MCV MCH MCHC RDW RDW Differential Plt Count MPV Immature Gran % (Auto) Neut % (Auto) Lymph % (Auto) [place] % (Auto) Eos % (Auto) Baso % (Auto) Absolute Neuts (auto) Absolute Lymphs (auto) Total Counted Diff Path Review Reviewed Sodium Potassium Chloride Carbon Dioxide Anion Gap BUN Creatinine Estim Creat Clear Calc Est GFR (MDRD) Af Amer Est GFR (MDRD) Non-Af BUN/Creatinine Ratio Glucose Calcium Troponin I < 0.015 B-Natriuretic Peptide > 5000.0 H Urine Color Urine Clarity Urine pH Ur Specific [place] Urine Protein Urine Glucose (UA) Urine Ketones Urine Occult Blood Urine Nitrite Urine Bilirubin Urine Urobilinogen Ur Leukocyte Esterase Random Vancomycin MRSA (PCR) Blood Type Antibody Screen 09/23/18 09/23/18 09/23/18 07:45 16:00 16:00 WBC RBC Hgb Hct MCV MCH MCHC RDW RDW Differential Plt Count MPV Immature Gran % (Auto) Neut % (Auto) Lymph % (Auto) [place] % (Auto) Eos % (Auto) Baso % (Auto) Absolute Neuts (auto) Absolute Lymphs (auto) Total Counted Diff Path Review Sodium Potassium Chloride Carbon Dioxide Anion Gap BUN Creatinine Estim Creat Clear Calc Est GFR (MDRD) Af Amer Est GFR (MDRD) Non-Af BUN/Creatinine Ratio Glucose Calcium Troponin I B-Natriuretic Peptide Urine Color Yellow Urine Clarity Clear Urine pH 6.0 Ur Specific [place] 1.015 Urine Protein 100 H Urine Glucose (UA) Normal Urine Ketones Negative Urine Occult Blood Negative Urine Nitrite Negative Urine Bilirubin Negative Urine Urobilinogen Normal Ur Leukocyte Esterase 500 H Random Vancomycin MRSA (PCR) Negative Blood Type B POSITIVE Antibody Screen NEGATIVE 09/24/18 09/24/18 09/24/18 06:25 06:25 08:10 WBC 16.3 H RBC 2.04 L Hgb 6.7 L Hct 20.9 L MCV 102.5 H MCH 32.8 H MCHC 32.1 RDW 21.0 H RDW Differential 77.9 H Plt Count 112 L MPV 11.2 Immature Gran % (Auto) 0.200 Neut % (Auto) 82.0 H Lymph % (Auto) 5.4 L [place] % (Auto) 5.8 Eos % (Auto) 6.4 H Baso % (Auto) 0.2 Absolute Neuts (auto) 13.4 H Absolute Lymphs (auto) 0.88 Total Counted Pending Diff Path Review Sodium 141 Potassium 4.4 Chloride 106 Carbon Dioxide 25.0 Anion Gap 10 BUN 63 H Creatinine 3.99 H Estim Creat Clear Calc 10.01 Est GFR (MDRD) Af Amer 16 L Est GFR (MDRD) Non-Af 13 L BUN/Creatinine Ratio 15.8 Glucose 98 Calcium 7.2 L Troponin I B-Natriuretic Peptide Urine Color Urine Clarity Urine pH Ur Specific [place] Urine Protein Urine Glucose (UA) Urine Ketones Urine Occult Blood Urine Nitrite Urine Bilirubin Urine Urobilinogen Ur Leukocyte Esterase Random Vancomycin 4.2 MRSA (PCR) Blood Type Antibody Screen Medical Necessity - Tobacco Use Smoking Status: Never smoker Assessment/Plan All Active Problems (Last Reviewed 07/22/18 @ 13:30 by Akanksha Thomas) Healthcare-associated pneumonia (Acute) Renal transplant rejection (Acute) GERD (gastroesophageal reflux disease) (Acute) History of cytomegalovirus infection (Acute) history of failed renal transplant (Acute) Sepsis (Acute) JENNIFFER (acute kidney injury) (Resolved) 1. 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 Failed kidney transplant received from adopted mother. Dialysis later today 2. 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 3. Failure to thrive has been on TPN4 days a weekand protein supplement 4. Anemia with drop in hemoglobin. May need prbc 5. Bilateral pleural effusion ultrafiltration yesterday 1.3L
--- NOTE | 2018-09-24 08:39 | PN_ITS ---
Patient Problems: Active and Suspected Problems (Last Reviewed 07/22/18 @ 13:30 by Akanksha Thomas) Healthcare-associated pneumonia (Acute) Subjective: Patient is short of breath easily even on sitting up from recliner. She had low-grade fever T-max 99.4 blood typer today. Patient intermittently on BiPAP and oxygen through nasal cannula. Overall shortness of breath is better. Hemodynamically stable although patient had mild hypotension after given metoprolol last night. Objective: General: Alert, Oriented x3, Cooperative. Diffuse muscle atrophy of extremities, intercostal on intervertebral muscle HEENT: Atraumatic, PERRLA, EOMI, Normocephalic Oral: Dry Mucosa Neck: Supple, No JVD, Negative Carotid Bruits Lungs: Clear to auscultation, Normal air movement, Bilateral pleural effusion, left moderate more than right small. Cardiovascular: Regular rate, No murmurs Abdomen: Bowel Sounds Present, Soft, Non Tender, Non-Distended, Scaphoid abdomen. Patient has midline surgical scar. Extremities: No edema, Capillary Refill Less than 3 Seconds Skin: No rashes, No breakdown, - - Bruise present on the toes of left foot Musculoskeletal: No Tenderness to Palpation of Joints or Extremities, Arthritic Changes Neurological: Cranial nerves II-XII grossly intact, Deep Tendon Reflexes 2+/4 and Symmetrical, Neuro grossly intact Psych/Mental Status: Normal Affect, Appropriate Vitals/I&O's: Vital Signs Temp Pulse Resp BP Pulse Ox 98.2 F 89 18 100/58 L 94 09/24/18 04:00 09/24/18 07:00 09/24/18 07:00 09/24/18 07:00 09/24/18 07:00 Oxygen Flow Rate (L/min) 3 Oxygen Delivery Method Bi-pap Weight: 79 lb 5.863 oz Body Mass Index (BMI) 16.0 Finger Stick Blood Glucose 104 Intake and Output for Last 24 Hours 09/22/18 09/23/18 09/24/18 23:59 23:59 23:59 Intake Total 882.3 / 882.3 124.4 / 124.4 509.6 / 509.6 Output Total 1450 / 1450 0 / 0 Balance 882.3 / 882.3 -1325.6 / -1325.6 509.6 / 509.6 Microbiology Past 72 Hours 09/23/18 16:00 Urine, Clean Catch Streptococcus pneumoniae Antigen (M - Final Streptococcus pneumonia Ag 09/23/18 16:00 Urine, Clean Catch Legionella Antigen - Final 09/22/18 13:05 Mucosa - Nose Respiratory Panel (PCR) - Final Laboratory Results 09/22/18 11:20: Diff Path Review Reviewed 09/23/18 07:23: Troponin I < 0.015 09/23/18 07:23: B-Natriuretic Peptide > 5000.0 H 09/23/18 07:45: Blood Type B POSITIVE, Antibody Screen NEGATIVE 09/23/18 16:00: MRSA (PCR) Negative 09/23/18 16:00: Urine Color Yellow, Urine Clarity Clear, Urine pH 6.0, Ur Specific [place] 1.015, Urine Protein 100 H, Urine Glucose (UA) Normal, Urine Ketones Negative, Urine Occult Blood Negative, Urine Nitrite Negative, Urine Bilirubin Negative, Urine Urobilinogen Normal, Ur Leukocyte Esterase 500 H 09/24/18 06:25: Random Vancomycin 4.2 09/24/18 06:25: Sodium 141, Potassium 4.4, Chloride 106, Carbon Dioxide 25.0, Anion Gap 10, BUN 63 H, Creatinine 3.99 H, Estim Creat Clear Calc 10.01, Est GFR (MDRD) Af Amer 16 L, Est GFR (MDRD) Non-Af 13 L, BUN/Creatinine Ratio 15.8, Glucose 98, Calcium 7.2 L 09/24/18 08:10: WBC 16.3 H, RBC 2.04 L, Hgb 6.7 L, Hct 20.9 L, MCV 102.5 H, MCH 32.8 H, MCHC 32.1, RDW 21.0 H, RDW Differential 77.9 H, Plt Count 112 L, MPV 11.2, Immature Gran % (Auto) 0.200, Neut % (Auto) 82.0 H, Lymph % (Auto) 5.4 L, [place] % (Auto) 5.8, Eos % (Auto) 6.4 H, Baso % (Auto) 0.2, Absolute Neuts (auto) 13.4 H, Absolute Lymphs (auto) 0.88, Total Counted Not Reportable, Differential Comment COMMENT Current Medications Acetaminophen (Tylenol) 650 mg PO Q4H PRN PRN PRN Reason: Mild-Mod Pain/Headache/Fever Albuterol Sulfate (Ventolin Aerosols) 2.5 mg INHALATION Q2H PRN PRN PRN Reason: SHORTNESS OF BREATH Last Admin: 09/22/18 23:08 Dose: 2.5 mg Albuterol/Ipratropium (Duoneb) 3 ml INHALATION Q4HWA.RT [facility] Last Admin: 09/24/18 07:00 Dose: 3 ml Docusate Sodium (Colace) 200 mg PO BID PRN PRN PRN Reason: Constipation Dronabinol (Marinol) 2.5 mg PO 4X/DAY [facility] Last Admin: 09/24/18 08:21 Dose: 2.5 mg Gabapentin (Neurontin) 300 mg PO BIDCM [facility] Last Admin: 09/24/18 08:23 Dose: 300 mg Guaifenesin (Mucinex) 1,200 mg PO BID [facility] Last Admin: 09/23/18 22:42 Dose: 1,200 mg Heparin Sodium (Beef Lung) () 50 units IV UD PRN PRN Reason: HEPARIN FLUSH Heparin Sodium (Porcine) (Heparin Na) 5,000 unit SC BID [facility] Last Admin: 09/23/18 22:40 Dose: 5,000 unit Hydroxyzine HCl (Atarax Tablet) 10 mg PO Q8H PRN PRN Reason: ANXIETY Last Admin: 09/24/18 03:47 Dose: 10 mg Piperacillin Sod/Tazobactam (Sod 3.375 gm/ Sodium Chloride) 50 mls @ 12.5 mls/hr IV Q12 [facility] Last Admin: 09/23/18 22:40 Dose: 12.5 mls/hr Metoprolol Tartrate (Lopressor (Beta Lucas)) 25 mg PO BID [facility] Last Admin: 09/23/18 22:41 Dose: 25 mg Multivit/Ca Carb/B Cmplx/FA/Prenat (Nephrocaps, Renaphro) 1 capsule PO QHS [facility] Last Admin: 09/23/18 22:42 Dose: 1 capsule Nutritional Formula (Nepro Carb Steady) 120 ml PO 4X/DAY [facility] Last Admin: 09/23/18 22:40 Dose: 120 ml Oxycodone HCl (Oxyir) 5 mg PO Q6H PRN PRN PRN Reason: SEVERE PAIN (6-10/10) Pantoprazole Sodium (Protonix) 40 mg PO DAILY [facility] Last Admin: 09/23/18 17:40 Dose: 40 mg Multivit/Folic Acid/Iron (Prenatabs Fa) 1 tablet PO DAILYCM [facility] Last Admin: 09/23/18 08:00 Dose: Not Given Promethazine HCl (Phenergan) 12.5 mg IV Q4H PRN PRN PRN Reason: NAUSEA/VOMITING Last Admin: 09/23/18 10:42 Dose: 12.5 mg Sodium Chloride () 5 - 15 ml IV UD PRN PRN Reason: SALINE FLUSH Last Admin: 09/24/18 08:23 Dose: 10 ml Sodium Chloride () 10 - 20 ml IV UD PRN PRN Reason: PICC FLUSH Tizanidine HCl (Zanaflex) 4 mg PO BID [facility] Last Admin: 09/23/18 22:43 Dose: 4 mg Voriconazole (Vfend) 200 mg PO BID [facility] Last Admin: 09/23/18 22:43 Dose: 200 mg Medical Necessity - Tobacco Use Smoking Status: Never smoker Assessment/Plan All Active Problems (Last Reviewed 07/22/18 @ 13:30 by Akanksha Thomas) Healthcare-associated pneumonia (Acute) Renal transplant rejection (Acute) GERD (gastroesophageal reflux disease) (Acute) History of cytomegalovirus infection (Acute) history of failed renal transplant (Acute) Sepsis (Acute) JENNIFFER (acute kidney injury) (Resolved) The patient is a 47 year old F with multiple comorbidities including 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 Patient has cough with yellow sputum. She also had sweating and feeling mild headache last night and during dialysis today she had a fever 102.8 Fahrenheit. Her vitals in the dialysis center was heart rate 100/min, blood pressure 178/85. She is on home oxygen 2 L during the day and 3 L during sleep. She had recurrent pneumonia first in April 2018 and then in August 2017 which was sepsis secondary to bilateral lower lobes Streptococcus pneumonia and streptococcal bacteremia and was transferred to [facility] for kidney transplant history where she was intubated on ventilator for about 2 weeks and was discharged almost 1 month. Patient is on dialysis and was sent from dialysis center to ER. Basic labs show significant leukocytosis 32.3 thousand with left shift, BUN/creatinine 38/2.36, K2.8. Chest x-ray shows left -moderate pleural effusion with underlying infiltrate and bibasilar atelectasis. Record from the [facility] dated September 14 shows patient has previous CMV positive and was admitted for seizures and encephalopathy. 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 1. Acute hypoxic respiratory failure with sepsis secondary to bilateral lower lobes complicated Pneumonia (fever, tachycardia, tachypnea and leukocytosis possible secondary to bilateral lower lobes): Patient was initially admitted in PCU and then transferred to ICU on 09/22 night after she got short of breath and dyspnea at rest. ABG 7.47/29.4/56 on 50% FiO2 Ventimask. It is suggestive of acute respiratory alkalosis. Discussed with ID . Initially started on IV vancomycin and Zosyn but MRSA nasal screen is negative and urine antigen is positive of strep pneumoniae, therefore vancomycin discontinued. Continue Zosyn until ID makes further change. Leukocytosis has improved. Patient is hemodynamically stable to be transferred to PCU. Discussed with the lap maker. Follow-up blood cultures x2, sputum culture and UA. It is already on voriconazole from home. Patient has appointment with [facility] next Friday to consider for jejunostomy tube and AV fistula that this might be postponed. 2. ESRD after kidney transplant rejection mostly secondary to chemoradiation as per patient: Patient follows Dr. Mcdaniel who is being consulted. Patient is on hemodialysis as per crop or grain farmworker recommendation. 3. History of recurrent pneumonia, 3 times since April 2018 with left [id number] pleural effusion: Repeat lateral shows left moderate pleural effusion and right small pleural effusion. Bilateral patchy infiltrate. Moderate vascular congestion. Although reported as no significant interval change but it seems worse than yesterday. 4. Left foot soft tissue swelling: Had drop of blood to her left foot. There is soft tissue swelling on x-ray. No bony injury including fracture or dislocation. Other chronic comorbidities include hypertension, history of cytomegalovirus infection, GERD, gastric cancer status post near total gastrectomy and chemoradiation: Multiple comorbidities complicates the present care and expect difficult and delay recovery. 5. Severe protein calorie malnutrition with decreased suboptimal energy intake and generalized muscle atrophy of extremities, intercostal and paravertebral muscle atrophy will records supervisor consult. Patient states she gets TPN from same dialysis catheter to purple port. Agency Sales Management Assistant opinion regarding TPN constitution. DVT prophylaxis: Heparin 5000 units of cutaneous twice daily Microbiology Past 72 Hours 09/23/18 16:00 Urine, Clean Catch Streptococcus pneumoniae Antigen (M - Final Streptococcus pneumonia Ag 09/23/18 16:00 Urine, Clean Catch Legionella Antigen - Final 09/22/18 13:05 Mucosa - Nose Respiratory Panel (PCR) - Final Laboratory Results 09/22/18 11:20: Diff Path Review Reviewed 09/23/18 16:00: MRSA (PCR) Negative 09/23/18 16:00: Urine Color Yellow, Urine Clarity Clear, Urine pH 6.0, Ur Specific [place] 1.015, Urine Protein 100 H, Urine Glucose (UA) Normal, Urine Ketones Negative, Urine Occult Blood Negative, Urine Nitrite Negative, Urine Bilirubin Negative, Urine Urobilinogen Normal, Ur Leukocyte Esterase 500 H 09/24/18 06:25: Random Vancomycin 4.2 09/24/18 06:25: Sodium 141, Potassium 4.4, Chloride 106, Carbon Dioxide 25.0, Anion Gap 10, BUN 63 H, Creatinine 3.99 H, Estim Creat Clear Calc 10.01, Est GFR (MDRD) Af Amer 16 L, Est GFR (MDRD) Non-Af 13 L, BUN/Creatinine Ratio 15.8, Glucose 98, Calcium 7.2 L 09/24/18 08:10: WBC 16.3 H, RBC 2.04 L, Hgb 6.7 L, Hct 20.9 L, MCV 102.5 H, MCH 32.8 H, MCHC 32.1, RDW 21.0 H, RDW Differential 77.9 H, Plt Count 112 L, MPV 11.2, Immature Gran % (Auto) 0.200, Neut % (Auto) 82.0 H, Lymph % (Auto) 5.4 L, [place] % (Auto) 5.8, Eos % (Auto) 6.4 H, Baso % (Auto) 0.2, Absolute Neuts (auto) 13.4 H, Absolute Lymphs (auto) 0.88, Total Counted Not Reportable, Differential Comment COMMENT Clinical Impression(s) from Imaging Studies Chest X-Ray 09/22/18 10:50 IMPRESSION: Small to moderate sized left pleural effusion with bibasilar atelectasis and/or infiltration superimposed on CHF. Foot X-Ray 09/22/18 11:38 IMPRESSION: Mild degenerative changes at the first metatarsal phalangeal joint. Dorsal soft tissue swelling. Chest X-Ray 09/23/18 05:20 IMPRESSION: No significant interval change when compared to prior radiograph September 22, 2018. There remains bilateral pleural effusions. There is pulmonary vascular congestion/edema. Bilateral pulmonary infiltrates. This may represent asymmetric edema. A infectious process cannot be excluded. Recommend follow-up imaging to resolution. Code Visit Inpatient E&M: 89486 Subs Hosp L3
--- NOTE | 2018-09-24 09:58 | NS ---
Patient is unsure of home TPN formula- reports having a 2 and 1 and 3 and 1 bag 4x/week. Poor PO intake at meals, reports acceptance of Nepro ONS w/ medpass. Patient okay w/ continuing TPN this admission if in accordance w/ plan of care. Recommend 1L 5%AA/ 20% dextrose solution w/ 250mL 20% lipid solution every other day (4x/week) to provide 1380 calories and 50 g AA per day. If poor PO at meals continues, it may be appropriate to provide AA/dextrose solution daily and lipids every other day to meet patient's estimated nutritional needs. Recommend daily weights. Recommend close monitoring of electrolytes- patient at risk for refeeding syndrome. See RDN assessment for further details. Please contact clinical dietitian at [phone] w/ questions. Camryn Noland MS, RDN, LD
--- NOTE | 2018-09-24 10:50 | PCM.PN.ID ---
Patient Problems: Active and Suspected Problems (Last Reviewed 07/22/18 @ 13:30 by Akanksha Thomas) Healthcare-associated pneumonia (Acute) Subjective: Feeling not much better, SOB stable. Mild new RLQ pain. - Physical Exam General: Alert, Cooperative, No apparent distress Lungs: Diminished - in bases Cardiovascular: Regular rate, Regular Rhythm Abdomen: Soft, Non Tender, Non-Distended Skin: No rashes Vital Signs Temp Pulse Resp BP Pulse Ox 98.2 F 80 18 100/58 L 100 09/24/18 04:00 09/24/18 09:30 09/24/18 09:30 09/24/18 07:00 09/24/18 09:30 Oxygen Flow Rate (L/min) 3 Oxygen Delivery Method Nasal Cannula Weight: 36 kg Body Mass Index (BMI) 16.0 Finger Stick Blood Glucose 104 Intake and Output for Last 24 Hours 09/22/18 09/23/18 09/24/18 23:59 23:59 23:59 Intake Total 882.3 / 882.3 124.4 / 124.4 509.6 / 509.6 Output Total 1450 / 1450 0 / 0 Balance 882.3 / 882.3 -1325.6 / -1325.6 509.6 / 509.6 Microbiology Past 72 Hours 09/23/18 16:00 Streptococcus pneumoniae Antigen (M - Final Urine, Clean Catch Streptococcus pneumonia Ag 09/23/18 16:00 Legionella Antigen - Final Urine, Clean Catch 09/22/18 13:05 Respiratory Panel (PCR) - Final Mucosa - Nose Laboratory Tests Past 24 Hrs 09/22/18 09/23/18 09/23/18 11:20 16:00 16:00 WBC RBC Hgb Hct MCV MCH MCHC RDW RDW Differential Plt Count MPV Immature Gran % (Auto) Neut % (Auto) Lymph % (Auto) [place] % (Auto) Eos % (Auto) Baso % (Auto) Absolute Neuts (auto) Absolute Lymphs (auto) Total Counted Differential Comment Diff Path Review Reviewed Sodium Potassium Chloride Carbon Dioxide Anion Gap BUN Creatinine Estim Creat Clear Calc Est GFR (MDRD) Af Amer Est GFR (MDRD) Non-Af BUN/Creatinine Ratio Glucose Calcium Urine Color Yellow Urine Clarity Clear Urine pH 6.0 Ur Specific [place] 1.015 Urine Protein 100 H Urine Glucose (UA) Normal Urine Ketones Negative Urine Occult Blood Negative Urine Nitrite Negative Urine Bilirubin Negative Urine Urobilinogen Normal Ur Leukocyte Esterase 500 H Random Vancomycin MRSA (PCR) Negative 09/24/18 09/24/18 09/24/18 06:25 06:25 08:10 WBC 16.3 H RBC 2.04 L Hgb 6.7 L Hct 20.9 L MCV 102.5 H MCH 32.8 H MCHC 32.1 RDW 21.0 H RDW Differential 77.9 H Plt Count 112 L MPV 11.2 Immature Gran % (Auto) 0.200 Neut % (Auto) 82.0 H Lymph % (Auto) 5.4 L [place] % (Auto) 5.8 Eos % (Auto) 6.4 H Baso % (Auto) 0.2 Absolute Neuts (auto) 13.4 H Absolute Lymphs (auto) 0.88 Total Counted Not Reportable Differential Comment COMMENT Diff Path Review Sodium 141 Potassium 4.4 Chloride 106 Carbon Dioxide 25.0 Anion Gap 10 BUN 63 H Creatinine 3.99 H Estim Creat Clear Calc 10.01 Est GFR (MDRD) Af Amer 16 L Est GFR (MDRD) Non-Af 13 L BUN/Creatinine Ratio 15.8 Glucose 98 Calcium 7.2 L Urine Color Urine Clarity Urine pH Ur Specific [place] Urine Protein Urine Glucose (UA) Urine Ketones Urine Occult Blood Urine Nitrite Urine Bilirubin Urine Urobilinogen Ur Leukocyte Esterase Random Vancomycin 4.2 MRSA (PCR) Medical Necessity - Tobacco Use Smoking Status: Never smoker Route of nutrition/ use of supplements: [] Nutritional Intake: [] IV Site: [] Bethea Catheter: [] - Assessment/Plan Antibiotics: [] Assessment/Plan: [] Active and Suspected Problems (Last Reviewed 07/22/18 @ 13:30 by Akanksha Thomas) Healthcare-associated pneumonia (Acute) sepsis (leukocytosis, tachycardia) - concern for pneumonia as source. Bcx from [facility] so far neg. Spoke with Dr. Mendoza from [facility], she is on vori due to (+) galactomannan from bronch. Urine Spneumo Ag (+). Had s.pneumo bacteremia in 06/2018. Stop vanc, continue zosyn. Overall improving. Will follow, d/w Dr. Vann.
[2018-09-24] MEDS: Voriconazole 200 MG Tablet PO ×2 (11:40→21:10)
[2018-09-24] MEDS: Prenatal Vits Tablet 1 TABLET PO (11:40)
[2018-09-24] MEDS: Pantoprazole Sodium 40 MG Tablet PO (11:40)
[2018-09-24 13:25] LABS: AST(SGOT) 19 U/L (15-37); Alanine Aminotransfer ALT/SGPT 22 U/L (13-56); Albumin, Serum 1.5 g/dL (3.2-5.0); Alkaline Phosphatase 151 U/L (45-117); Bilirubin, Direct 0.15 mg/dL (0.00-0.30); Globulin 3.6 g/dL (2.2-4.2); Protein, Total 5.1 g/dL (6.4-8.2)
--- NOTE | 2018-09-24 16:18 | DIALYSIS ---
Hemodialysis x 2.5 hours completed. Pt tolerated tx well. Fluid balance -2000ml. Phenergan 12.5mg administered for nausea. Heparin 1000units/ml to close CVC ports to fill volume. Report given to MONTY Frias. Pt stable
[2018-09-24] MEDS: Fat Emulsions 20% 250 ML IV (17:37)
[2018-09-24] MEDS: tiZANidine HCl 2 MG Tablet 4 MG PO (21:10)
[2018-09-24] MEDS: Metoprolol Tartrate 25 MG Tablet PO (21:13)
[2018-09-24] MEDS: guaiFENesin 1,200 MG Tablet 1200 MG PO (21:14)
[2018-09-24] MEDS: Folic Acid/Vitamin B Comp W-C 1 Capsule 1 CAP PO (21:22)
[2018-09-24] MEDS: proMETHazine 25 MG/ML Syringe 12.5 MG IV (21:39)
[2018-09-24] MEDS: 0.9% NaCl PICC Flush IV (21:39)
[2018-09-24 21:55] LABS: Hematocrit 27.3 % (37-47); Hemoglobin 8.9 g/dl (12.0-15.0)
[2018-09-25] VITALS (22 sets, daily range): BP systolic 102–146; BP diastolic 63–95; PULSE 81–104; RESP 16–20; TEMP 36.8–37.8; O2SAT 93–97
--- NOTE | 2018-09-25 | NURSING ---
Report called to Piper MILLAN on PCU.
--- NOTE | 2018-09-25 00:25 | NURSING ---
Pt. transferred to PCU 120 via wheelchair. Pt. settled in the chair. Call light in reach. Pt. said that she would notify family in the morning that she had moved rooms.
[2018-09-25 07:23] LABS: Absolute Lymphocyte Count 0.73 X10^3/ul (0.83-4.51); Absolute Neutrophil Count 8.2 X10^3/uL (2.0-7.7); Basophil# 0.02 X10^3/uL; Basophil% 0.2 % (0-1); Differential Indicated SCAN CRITERIA MET; Eosinophil# 1.69 X10^3/uL; Eosinophils% 14.7 % (0-5); Hemoglobin 8.3 g/dl (12.0-15.0); Lymphocyte # 0.73 X10^3/ul (4.0); Lymphocyte % 6.4 % (19-41); Mean Corp Hgb Conc 33.2 g/gl (32-36); Mean Corpuscular Hgb 32.5 pg (27.0-32.0); Mean Platelet Vol. 11.4 fl (6.2-12.0); Monocyte# 0.78 X10^3/uL; Monocyte% 6.8 % (0-10); Neutrophil # 8.21 X10^3/uL (2.7-7.7); Neutrophil % 71.6 % (47-70); POSITIVE COUNT NO; POSITIVE DIFFERENTIAL NO; POSITIVE MORPHOLOGY YES; Platelet Count 94 K/mm3 (150-450); RBC Distribution Width CV 22.4 % (11.6-14.6); RBC Distribution Width SD 77.9 fl (35.1-43.9); Red Blood Count 2.55 M/mm3 (4.2-5.4); White Blood Count 11.5 K/mm3 (4.4-11.0)
[2018-09-25 07:31] LABS: Anion Gap 8 (5-15); BUN 36 mg/dL (7-18); BUN/Creat Ratio 12.2 RATIO (10-20); Calcium,Total 7.4 mg/dL (8.5-10.1); Chloride 104 mmol/L (98-107); Creatinine, Serum 2.96 mg/dL (0.55-1.02); EST Glomerular Filtration Rate 18 mL/min (>60); Est Glom Filt Rate - Afr Amer 22 mL/min (>60); Estimated Creatinine Clearance 11.77 ml/min; Glucose 121 mg/dL (74-106); Potassium 3.4 mmol/L (3.5-5.1); Sodium Level 140 mmol/L (136-145)
[2018-09-25 07:49] LABS: Anisocytosis 2+
[2018-09-25 07:50] LABS: Platelet Estimate ADEQUATE (ADEQ); Platelet Morphology LARGE; Target Cells 2+
[2018-09-25] MEDS: Ipratropium/Albuterol Sulfate 3 ML AMPUL.NEB INHALATION ×4 (08:00→19:45)
[2018-09-25] MEDS: Gabapentin 300 MG Capsule PO ×2 (08:47→17:27)
[2018-09-25] MEDS: Pantoprazole Sodium 40 MG Tablet PO (08:47)
[2018-09-25] MEDS: Voriconazole 200 MG Tablet PO ×2 (08:47→21:11)
[2018-09-25] MEDS: guaiFENesin 1,200 MG Tablet 1200 MG PO ×2 (08:47→21:11)
[2018-09-25] MEDS: Folic Acid/Vitamin B Comp W-C 1 Capsule 1 CAP PO (08:47)
[2018-09-25] MEDS: Metoprolol Tartrate 25 MG Tablet PO ×2 (08:47→21:11)
[2018-09-25] MEDS: Prenatal Vits Tablet 1 TABLET PO (08:47)
[2018-09-25] MEDS: Nepro Liquid 120 ML LIQUID PO (09:21)
[2018-09-25] MEDS: Dronabinol 2.5 MG Capsule PO ×4 (10:53→21:11)
--- NOTE | 2018-09-25 11:18 | CASEMGMT ---
This RN CM to room to discuss discharge plan with pt at this time. Therapy is recommending further skilled therapy for pt at this time. Pt feels that she will be fine to go home with [facility] RN and this RN CM offered PT/OT to pt at this time but she declined at this time. Pt states 'I need to get this breathing taken care of first and then I can worry about that.' [facility] was unable to find [facility] for pt originally and they were covering in the interim. Call to Verito at [facility](pt has been with them in the past) and they are able to take pt for RN only at this time. Verito is aware that pt has TPN ordered and that her dialysis cath and PICC line are both on same side of chest and per Erica, dialysis has been changing the dressing 3x a week and she hasn't needed it changed by [facility] d/t same, voices understanding. Order for [facility] RN placed in computer at this time and call to Erica at [facility] to notify. She states to speak with Andrey regarding same at [phone] ext [phone]. Call to Andrey and he requests [facility] order to be faxed to him. This RN CM notified Andrey that pt to be discharged tomorrow tentatively and he states that this RN CM would need to notify [facility] intake as well and he transfers this RN CM to them regarding same. Ry at intake updated on all at this time and states that pt should have supplies good until friday at home and they will set up supplies from there. He states that TPN order received and clarifies physician name at this time. Ry states no further questions/concerns at this time but does take down this RN CM's direct line if needed for anything later today. TPN order with blood draw info faxed to [facility] at this time and HHC order faxed to Andrey at [facility] at this time. Pt updated on all at this time, voices understanding. Pt voices no further questions/concerns/needs at this time. [facility] RN CM
--- NOTE | 2018-09-25 12:49 | PCM.PN.PUL ---
Patient Problems: Active and Suspected Problems (Last Reviewed 07/22/18 @ 13:30 by Akanksha Thomas) Healthcare-associated pneumonia (Acute) Subjective: The patient was seen and examined at the bedside this morning. Events from the last 24 hours have been reviewed. The patient is currently afebrile, hemodynamically stable and maintaining appropriate oxygen saturations on 2 L/min via nasal cannula. Hemoglobin is improved this morning at 8.3 g/dL. Potassium is a bit low at 3.4. Objective: The patient's most recent lab work, culture data and imaging studies have all been personally reviewed. Strep pneumonia urinary antigen was positive. Respiratory viral panel was negative. Blood cultures are pending. - Physical Exam General: Alert, Cooperative, No apparent distress HEENT: Atraumatic, PERRLA, Normocephalic Oral: No Gingival or Mucosal Lesions/ Ulcerations Neck: Supple, No Nodes, Trachea Midline Lungs: No rhonchi, No wheeze, No rales, Diminished Cardiovascular: Regular rate, Regular Rhythm, Normal S1, Normal S2, No murmurs Abdomen: Bowel Sounds Present, Soft, Tender Extremities: No clubbing, No cyanosis, No edema Skin: No breakdown Musculoskeletal: Cachexia, Muscle Wasting Lymphatic: No Cervical, Supraclavicular, or Inguinal Adenopathy Neurological: Cranial nerves II-XII grossly intact, Neuro grossly intact Psych/Mental Status: Normal Affect, Appropriate Vital Signs Temp Pulse Resp BP Pulse Ox 98.9 F 93 18 111/70 96 09/25/18 10:00 09/25/18 12:00 09/25/18 10:00 09/25/18 10:00 09/25/18 10:21 Oxygen Flow Rate (L/min) 2 Oxygen Delivery Method Nasal Cannula Weight: 69 lb 3.602 oz Body Mass Index (BMI) 16.0 Finger Stick Blood Glucose 104 Intake and Output for Last 24 Hours 09/23/18 09/24/18 09/25/18 23:59 23:59 23:59 Intake Total 124.4 / 124.4 1462.6 / 1462.6 421.3 / 421.3 Output Total 1450 / 1450 2049 / 2049 Balance -1325.6 / -1325.6 -587.4 / -587.4 421.3 / 421.3 Microbiology Past 72 Hours 09/22/18 11:25 Blood Culture - Preliminary Blood Culture (Wb) - Right Forearm No growth in 48 hours. 09/22/18 11:20 Blood Culture - Preliminary Blood Culture (Wb) - Anticubital Right No growth in 48 hours. 09/23/18 16:00 Streptococcus pneumoniae Antigen (M - Final Urine, Clean Catch Streptococcus pneumonia Ag 09/23/18 16:00 Legionella Antigen - Final Urine, Clean Catch 09/22/18 13:05 Respiratory Panel (PCR) - Final Mucosa - Nose Laboratory Tests Past 24 Hrs 09/23/18 09/24/18 09/24/18 07:45 06:25 21:30 WBC RBC Hgb 8.9 L Hct 27.3 L MCV MCH MCHC RDW RDW Differential Plt Count MPV Immature Gran % (Auto) Neut % (Auto) Lymph % (Auto) [place] % (Auto) Eos % (Auto) Baso % (Auto) Absolute Neuts (auto) Absolute Lymphs (auto) Total Counted Platelet Estimate Plt Morphology Comment Anisocytosis Target Cells Sodium Potassium Chloride Carbon Dioxide Anion Gap BUN Creatinine Estim Creat Clear Calc Est GFR (MDRD) Af Amer Est GFR (MDRD) Non-Af BUN/Creatinine Ratio Glucose Calcium Total Bilirubin 0.50 Direct Bilirubin 0.15 AST 19 ALT 22 Alkaline Phosphatase 151 H Total Protein 5.1 L Albumin 1.5 L Globulin 3.6 Crossmatch See Detail 09/25/18 09/25/18 07:01 07:01 WBC 11.5 H RBC 2.55 L Hgb 8.3 L Hct 25.0 L MCV 98.0 MCH 32.5 H MCHC 33.2 RDW 22.4 H RDW Differential 77.9 H Plt Count 94 L MPV 11.4 Immature Gran % (Auto) 0.300 Neut % (Auto) 71.6 H Lymph % (Auto) 6.4 L [place] % (Auto) 6.8 Eos % (Auto) 14.7 H Baso % (Auto) 0.2 Absolute Neuts (auto) 8.2 H Absolute Lymphs (auto) 0.73 L Total Counted Not Reportable Platelet Estimate ADEQUATE Plt Morphology Comment LARGE Anisocytosis 2+ Target Cells 2+ Sodium 140 Potassium 3.4 L Chloride 104 Carbon Dioxide 28.0 Anion Gap 8 BUN 36 H Creatinine 2.96 H Estim Creat Clear Calc 11.77 Est GFR (MDRD) Af Amer 22 L Est GFR (MDRD) Non-Af 18 L BUN/Creatinine Ratio 12.2 Glucose 121 H Calcium 7.4 L Total Bilirubin Direct Bilirubin AST ALT Alkaline Phosphatase Total Protein Albumin Globulin Crossmatch Clinical Impression(s) from Imaging Studies Chest X-Ray 09/22/18 10:50 IMPRESSION: Small to moderate sized left pleural effusion with bibasilar atelectasis and/or infiltration superimposed on CHF. Electronically Signed: Vikas Haney, at 11:34 EDT , Service support , Foot X-Ray 09/22/18 11:38 IMPRESSION: Mild degenerative changes at the first metatarsal phalangeal joint. Dorsal soft tissue swelling. Electronically Signed: Vikas Haney, at 14:28 EDT , Service support , Chest X-Ray 09/23/18 05:20 IMPRESSION: No significant interval change when compared to prior radiograph September 22, 2018. There remains bilateral pleural effusions. There is pulmonary vascular congestion/edema. Bilateral pulmonary infiltrates. This may represent asymmetric edema. A infectious process cannot be excluded. Recommend follow-up imaging to resolution. Electronically Signed: Arya Molina, at 6:28 EDT Tel , Service support , Medical Necessity - Tobacco Use Smoking Status: Never smoker Assessment/Plan All Active Problems (Last Reviewed 07/22/18 @ 13:30 by Akanksha Thomas) Healthcare-associated pneumonia (Acute) Renal transplant rejection (Acute) GERD (gastroesophageal reflux disease) (Acute) History of cytomegalovirus infection (Acute) history of failed renal transplant (Acute) Sepsis (Acute) JENNIFFER (acute kidney injury) (Resolved) RECOMMENDATIONS: 1. Continue to wean supplemental oxygen to maintain saturations at or above 90%. 2. Continue hemodialysis per nephrology recommendations. 3. Continue antibiotics per ID recommendations. 4. Monitor blood counts daily. Consider transfusion if hemoglobin is less than 7 g/dL. IMPRESSIONS: 1. Acute hypoxemic respiratory failure Likely multifactorial in etiology with hypervolemia in the setting of end-stage renal disease along with underlying pulmonary infectious process contributing. At this time, nephrology is is following to assist with volume management. The patient will be continued on antimicrobials per infectious diseases recommendations. At this time, the patient has been weaned from continuous BiPAP support. Continue supplemental oxygen with a goal to maintain a saturation at or above 90%. Encourage incentive spirometer use and mobilize patient as tolerated. 2. Sepsis secondary to healthcare associated pneumonia The patient's urinary streptococcal antigen was positive. The patient is on appropriate antibiotics. Infectious diseases is following accordingly. 3. End-stage renal disease on hemodialysis Continue current supportive measures per nephrology recommendations. Agree with holding immunosuppressive regimen. 4. Severe protein calorie malnutrition/hypertension/history of CMV infection/GERD/history of gastric malignancy Complicates care, management, recovery and prognosis. Continue home medications as indicated. Physical therapy and nutritional services to work with the patient. This note was generated with [employer] dictation software. It may contain incorrect words, spelling, and punctuation that were not noted in checking the note before signing. DISPOSITION: Given the patient's lack of ongoing ICU needs, will sign off. Please call with any additional questions. Code Visit Inpatient E&M: 13185 Subs Hosp L2
--- NOTE | 2018-09-25 12:52 | PN_ITS ---
Patient Problems: Active and Suspected Problems (Last Reviewed 07/22/18 @ 13:30 by Akanksha Thomas) Healthcare-associated pneumonia (Acute) Subjective: The patient was seen and examined at the bedside this morning. Events from the last 24 hours have been reviewed. The patient is currently afebrile, hemodynamically stable and maintaining appropriate oxygen saturations on 2 L/min via nasal cannula. Hemoglobin is improved this morning at 8.3 g/dL. Potassium is a bit low at 3.4. Objective: The patient's most recent lab work, culture data and imaging studies have all been personally reviewed. Strep pneumonia urinary antigen was positive. Respiratory viral panel was negative. Blood cultures are pending. - Physical Exam General: Alert, Cooperative, No apparent distress HEENT: Atraumatic, PERRLA, Normocephalic Oral: No Gingival or Mucosal Lesions/ Ulcerations Neck: Supple, No Nodes, Trachea Midline Lungs: No rhonchi, No wheeze, No rales, Diminished Cardiovascular: Regular rate, Regular Rhythm, Normal S1, Normal S2, No murmurs Abdomen: Bowel Sounds Present, Soft, Tender Extremities: No clubbing, No cyanosis, No edema Skin: No breakdown Musculoskeletal: Cachexia, Muscle Wasting Lymphatic: No Cervical, Supraclavicular, or Inguinal Adenopathy Neurological: Cranial nerves II-XII grossly intact, Neuro grossly intact Psych/Mental Status: Normal Affect, Appropriate Vital Signs Temp Pulse Resp BP Pulse Ox 98.9 F 93 18 111/70 96 09/25/18 10:00 09/25/18 12:00 09/25/18 10:00 09/25/18 10:00 09/25/18 10:21 Oxygen Flow Rate (L/min) 2 Oxygen Delivery Method Nasal Cannula Weight: 69 lb 3.602 oz Body Mass Index (BMI) 16.0 Finger Stick Blood Glucose 104 Intake and Output for Last 24 Hours 09/23/18 09/24/18 09/25/18 23:59 23:59 23:59 Intake Total 124.4 / 124.4 1462.6 / 1462.6 421.3 / 421.3 Output Total 1450 / 1450 2049 / 2049 Balance -1325.6 / -1325.6 -587.4 / -587.4 421.3 / 421.3 Microbiology Past 72 Hours 09/22/18 11:25 Blood Culture - Preliminary Blood Culture (Wb) - Right Forearm No growth in 48 hours. 09/22/18 11:20 Blood Culture - Preliminary Blood Culture (Wb) - Anticubital Right No growth in 48 hours. 09/23/18 16:00 Streptococcus pneumoniae Antigen (M - Final Urine, Clean Catch Streptococcus pneumonia Ag 09/23/18 16:00 Legionella Antigen - Final Urine, Clean Catch 09/22/18 13:05 Respiratory Panel (PCR) - Final Mucosa - Nose Laboratory Tests Past 24 Hrs 09/23/18 09/24/18 09/24/18 07:45 06:25 21:30 WBC RBC Hgb 8.9 L Hct 27.3 L MCV MCH MCHC RDW RDW Differential Plt Count MPV Immature Gran % (Auto) Neut % (Auto) Lymph % (Auto) [place] % (Auto) Eos % (Auto) Baso % (Auto) Absolute Neuts (auto) Absolute Lymphs (auto) Total Counted Platelet Estimate Plt Morphology Comment Anisocytosis Target Cells Sodium Potassium Chloride Carbon Dioxide Anion Gap BUN Creatinine Estim Creat Clear Calc Est GFR (MDRD) Af Amer Est GFR (MDRD) Non-Af BUN/Creatinine Ratio Glucose Calcium Total Bilirubin 0.50 Direct Bilirubin 0.15 AST 19 ALT 22 Alkaline Phosphatase 151 H Total Protein 5.1 L Albumin 1.5 L Globulin 3.6 Crossmatch See Detail 09/25/18 09/25/18 07:01 07:01 WBC 11.5 H RBC 2.55 L Hgb 8.3 L Hct 25.0 L MCV 98.0 MCH 32.5 H MCHC 33.2 RDW 22.4 H RDW Differential 77.9 H Plt Count 94 L MPV 11.4 Immature Gran % (Auto) 0.300 Neut % (Auto) 71.6 H Lymph % (Auto) 6.4 L [place] % (Auto) 6.8 Eos % (Auto) 14.7 H Baso % (Auto) 0.2 Absolute Neuts (auto) 8.2 H Absolute Lymphs (auto) 0.73 L Total Counted Not Reportable Platelet Estimate ADEQUATE Plt Morphology Comment LARGE Anisocytosis 2+ Target Cells 2+ Sodium 140 Potassium 3.4 L Chloride 104 Carbon Dioxide 28.0 Anion Gap 8 BUN 36 H Creatinine 2.96 H Estim Creat Clear Calc 11.77 Est GFR (MDRD) Af Amer 22 L Est GFR (MDRD) Non-Af 18 L BUN/Creatinine Ratio 12.2 Glucose 121 H Calcium 7.4 L Total Bilirubin Direct Bilirubin AST ALT Alkaline Phosphatase Total Protein Albumin Globulin Crossmatch Clinical Impression(s) from Imaging Studies Chest X-Ray 09/22/18 10:50 IMPRESSION: Small to moderate sized left pleural effusion with bibasilar atelectasis and/or infiltration superimposed on CHF. Electronically Signed: Vikas Haney, at 11:34 EDT , Service support , Foot X-Ray 09/22/18 11:38 IMPRESSION: Mild degenerative changes at the first metatarsal phalangeal joint. Dorsal soft tissue swelling. Electronically Signed: Vikas Haney, at 14:28 EDT , Service support , Chest X-Ray 09/23/18 05:20 IMPRESSION: No significant interval change when compared to prior radiograph September 22, 2018. There remains bilateral pleural effusions. There is pulmonary vascular congestion/edema. Bilateral pulmonary infiltrates. This may represent asymmetric edema. A infectious process cannot be excluded. Recommend follow-up imaging to resolution. Electronically Signed: Arya Molina, at 6:28 EDT Tel , Service support , Medical Necessity - Tobacco Use Smoking Status: Never smoker Assessment/Plan All Active Problems (Last Reviewed 07/22/18 @ 13:30 by Akanksha Thomas) Healthcare-associated pneumonia (Acute) Renal transplant rejection (Acute) GERD (gastroesophageal reflux disease) (Acute) History of cytomegalovirus infection (Acute) history of failed renal transplant (Acute) Sepsis (Acute) JENNIFFER (acute kidney injury) (Resolved) RECOMMENDATIONS: 1. Continue to wean supplemental oxygen to maintain saturations at or above 90%. 2. Continue hemodialysis per nephrology recommendations. 3. Continue antibiotics per ID recommendations. 4. Monitor blood counts daily. Consider transfusion if hemoglobin is less than 7 g/dL. IMPRESSIONS: 1. Acute hypoxemic respiratory failure Likely multifactorial in etiology with hypervolemia in the setting of end-stage renal disease along with underlying pulmonary infectious process contributing. At this time, nephrology is is following to assist with volume management. The patient will be continued on antimicrobials per infectious diseases recommendations. At this time, the patient has been weaned from continuous BiPAP support. Continue supplemental oxygen with a goal to maintain a saturation at or above 90%. Encourage incentive spirometer use and mobilize patient as tolerated. 2. Sepsis secondary to healthcare associated pneumonia The patient's urinary streptococcal antigen was positive. The patient is on appropriate antibiotics. Infectious diseases is following accordingly. 3. End-stage renal disease on hemodialysis Continue current supportive measures per nephrology recommendations. Agree with holding immunosuppressive regimen. 4. Severe protein calorie malnutrition/hypertension/history of CMV infection/GERD/history of gastric malignancy Complicates care, management, recovery and prognosis. Continue home medications as indicated. Physical therapy and nutritional services to work with the patient. This note was generated with [employer] dictation software. It may contain incorrect words, spelling, and punctuation that were not noted in checking the note before signing. DISPOSITION: Given the patient's lack of ongoing ICU needs, will sign off. Please call with any additional questions. Code Visit Inpatient E&M: 60038 Subs Hosp L2
--- NOTE | 2018-09-25 12:55 | PCM.PN.REN ---
Patient Problems: Active and Suspected Problems (Last Reviewed 07/22/18 @ 13:30 by Akanksha Thomas) Healthcare-associated pneumonia (Acute) Subjective: Transferred out of ICU to PCU. Started on TPN therapy. Respiratory status improved, stable. Had 2 L fluid removed on dialysis last night. Had some lightheadedness at end of treatment. - Physical Exam General: Alert, Oriented x3, Cooperative Lungs: Rales - Right base, diminished left base Cardiovascular: Regular rate Abdomen: Bowel Sounds Present, Soft, Non Tender Extremities: No edema Psych/Mental Status: Normal Affect, Alert and oriented to time, place, person, mood and affect Vital Signs Temp Pulse Resp BP Pulse Ox 98.9 F 93 18 111/70 96 09/25/18 10:00 09/25/18 12:00 09/25/18 10:00 09/25/18 10:00 09/25/18 10:21 Oxygen Flow Rate (L/min) 2 Oxygen Delivery Method Nasal Cannula Weight: 31.4 kg Body Mass Index (BMI) 16.0 Finger Stick Blood Glucose 104 Intake and Output for Last 24 Hours 09/23/18 09/24/18 09/25/18 23:59 23:59 23:59 Intake Total 124.4 / 124.4 1462.6 / 1462.6 421.3 / 421.3 Output Total 1450 / 1450 2049 / 2049 Balance -1325.6 / -1325.6 -587.4 / -587.4 421.3 / 421.3 Microbiology Past 72 Hours 09/22/18 11:25 Blood Culture - Preliminary Blood Culture (Wb) - Right Forearm No growth in 48 hours. 09/22/18 11:20 Blood Culture - Preliminary Blood Culture (Wb) - Anticubital Right No growth in 48 hours. 09/23/18 16:00 Streptococcus pneumoniae Antigen (M - Final Urine, Clean Catch Streptococcus pneumonia Ag 09/23/18 16:00 Legionella Antigen - Final Urine, Clean Catch 09/22/18 13:05 Respiratory Panel (PCR) - Final Mucosa - Nose Laboratory Tests Past 24 Hrs 09/23/18 09/24/18 09/24/18 07:45 06:25 21:30 WBC RBC Hgb 8.9 L Hct 27.3 L MCV MCH MCHC RDW RDW Differential Plt Count MPV Immature Gran % (Auto) Neut % (Auto) Lymph % (Auto) [place] % (Auto) Eos % (Auto) Baso % (Auto) Absolute Neuts (auto) Absolute Lymphs (auto) Total Counted Platelet Estimate Plt Morphology Comment Anisocytosis Target Cells Sodium Potassium Chloride Carbon Dioxide Anion Gap BUN Creatinine Estim Creat Clear Calc Est GFR (MDRD) Af Amer Est GFR (MDRD) Non-Af BUN/Creatinine Ratio Glucose Calcium Total Bilirubin 0.50 Direct Bilirubin 0.15 AST 19 ALT 22 Alkaline Phosphatase 151 H Total Protein 5.1 L Albumin 1.5 L Globulin 3.6 Crossmatch See Detail 09/25/18 09/25/18 07:01 07:01 WBC 11.5 H RBC 2.55 L Hgb 8.3 L Hct 25.0 L MCV 98.0 MCH 32.5 H MCHC 33.2 RDW 22.4 H RDW Differential 77.9 H Plt Count 94 L MPV 11.4 Immature Gran % (Auto) 0.300 Neut % (Auto) 71.6 H Lymph % (Auto) 6.4 L [place] % (Auto) 6.8 Eos % (Auto) 14.7 H Baso % (Auto) 0.2 Absolute Neuts (auto) 8.2 H Absolute Lymphs (auto) 0.73 L Total Counted Not Reportable Platelet Estimate ADEQUATE Plt Morphology Comment LARGE Anisocytosis 2+ Target Cells 2+ Sodium 140 Potassium 3.4 L Chloride 104 Carbon Dioxide 28.0 Anion Gap 8 BUN 36 H Creatinine 2.96 H Estim Creat Clear Calc 11.77 Est GFR (MDRD) Af Amer 22 L Est GFR (MDRD) Non-Af 18 L BUN/Creatinine Ratio 12.2 Glucose 121 H Calcium 7.4 L Total Bilirubin Direct Bilirubin AST ALT Alkaline Phosphatase Total Protein Albumin Globulin Crossmatch Medical Necessity - Tobacco Use Smoking Status: Never smoker Assessment/Plan All Active Problems (Last Reviewed 07/22/18 @ 13:30 by Akanksha Thomas) Healthcare-associated pneumonia (Acute) Renal transplant rejection (Acute) GERD (gastroesophageal reflux disease) (Acute) History of cytomegalovirus infection (Acute) history of failed renal transplant (Acute) Sepsis (Acute) JENNIFFER (acute kidney injury) (Resolved) 1. 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 Failed kidney transplant received from adoptive mother. 2. Fever with leukocytosis and immune compromised host improved with antibiotics. Urine with strep pneumoniae. Blood culture negative so far. 3. Failure to thrive started on TPN 4. Anemia s/p blood transfusion. EPO on dialysis. 5. Bilateral pleural effusion, pneumonia ultrafiltration today as tolerated on dialysis
--- NOTE | 2018-09-25 13:03 | PN.ID_ITS ---
Patient Problems: Active and Suspected Problems (Last Reviewed 07/22/18 @ 13:30 by Akanksha Thomas) Healthcare-associated pneumonia (Acute) Subjective: Feeling better, breathing improved, no fever. - Physical Exam General: Alert, Cooperative, No apparent distress Lungs: Diminished Cardiovascular: Regular rate, Regular Rhythm Abdomen: Soft, Non Tender, Non-Distended Skin: No rashes Vital Signs Temp Pulse Resp BP Pulse Ox 98.9 F 93 18 111/70 96 09/25/18 10:00 09/25/18 12:00 09/25/18 10:00 09/25/18 10:00 09/25/18 10:21 Oxygen Flow Rate (L/min) 2 Oxygen Delivery Method Nasal Cannula Weight: 31.4 kg Body Mass Index (BMI) 16.0 Finger Stick Blood Glucose 104 Intake and Output for Last 24 Hours 09/23/18 09/24/18 09/25/18 23:59 23:59 23:59 Intake Total 124.4 / 124.4 1462.6 / 1462.6 421.3 / 421.3 Output Total 1450 / 1450 2049 / 2049 Balance -1325.6 / -1325.6 -587.4 / -587.4 421.3 / 421.3 Microbiology Past 72 Hours 09/22/18 11:25 Blood Culture - Preliminary Blood Culture (Wb) - Right Forearm No growth in 48 hours. 09/22/18 11:20 Blood Culture - Preliminary Blood Culture (Wb) - Anticubital Right No growth in 48 hours. 09/23/18 16:00 Streptococcus pneumoniae Antigen (M - Final Urine, Clean Catch Streptococcus pneumonia Ag 09/23/18 16:00 Legionella Antigen - Final Urine, Clean Catch 09/22/18 13:05 Respiratory Panel (PCR) - Final Mucosa - Nose Laboratory Tests Past 24 Hrs 09/23/18 09/24/18 09/24/18 07:45 06:25 21:30 WBC RBC Hgb 8.9 L Hct 27.3 L MCV MCH MCHC RDW RDW Differential Plt Count MPV Immature Gran % (Auto) Neut % (Auto) Lymph % (Auto) [place] % (Auto) Eos % (Auto) Baso % (Auto) Absolute Neuts (auto) Absolute Lymphs (auto) Total Counted Platelet Estimate Plt Morphology Comment Anisocytosis Target Cells Sodium Potassium Chloride Carbon Dioxide Anion Gap BUN Creatinine Estim Creat Clear Calc Est GFR (MDRD) Af Amer Est GFR (MDRD) Non-Af BUN/Creatinine Ratio Glucose Calcium Total Bilirubin 0.50 Direct Bilirubin 0.15 AST 19 ALT 22 Alkaline Phosphatase 151 H Total Protein 5.1 L Albumin 1.5 L Globulin 3.6 Crossmatch See Detail 09/25/18 09/25/18 07:01 07:01 WBC 11.5 H RBC 2.55 L Hgb 8.3 L Hct 25.0 L MCV 98.0 MCH 32.5 H MCHC 33.2 RDW 22.4 H RDW Differential 77.9 H Plt Count 94 L MPV 11.4 Immature Gran % (Auto) 0.300 Neut % (Auto) 71.6 H Lymph % (Auto) 6.4 L [place] % (Auto) 6.8 Eos % (Auto) 14.7 H Baso % (Auto) 0.2 Absolute Neuts (auto) 8.2 H Absolute Lymphs (auto) 0.73 L Total Counted Not Reportable Platelet Estimate ADEQUATE Plt Morphology Comment LARGE Anisocytosis 2+ Target Cells 2+ Sodium 140 Potassium 3.4 L Chloride 104 Carbon Dioxide 28.0 Anion Gap 8 BUN 36 H Creatinine 2.96 H Estim Creat Clear Calc 11.77 Est GFR (MDRD) Af Amer 22 L Est GFR (MDRD) Non-Af 18 L BUN/Creatinine Ratio 12.2 Glucose 121 H Calcium 7.4 L Total Bilirubin Direct Bilirubin AST ALT Alkaline Phosphatase Total Protein Albumin Globulin Crossmatch Medical Necessity - Tobacco Use Smoking Status: Never smoker Route of nutrition/ use of supplements: [] Nutritional Intake: [] IV Site: [] Bethea Catheter: [] - Assessment/Plan Antibiotics: [] Assessment/Plan: [] Active and Suspected Problems (Last Reviewed 07/22/18 @ 13:30 by Akanksha Thomas) Healthcare-associated pneumonia (Acute) sepsis (leukocytosis, tachycardia) - concern for pneumonia as source. [facility] from [facility] so far neg. Yesterday spoke with Dr. Mendoza from [facility], she is on vori due to (+) galactomannan from bronch. Urine Spneumo Ag (+). Had s.pneumo bacteremia in 06/2018. Stopped vanc, continue zosyn, day 4 of iv ax. Overall improving, wbc nearly back to normal range. Plan for d/c home will be for augmentin po 500mg qday for 2 more days to cover for strep and as well as her h/o aspiration. Augmentin to be given after HD on dialysis days. ID followup with Dr. Mendoza will need to be rescheduled. She is to continue vori as planned. Will follow, d/w oil field caser
--- NOTE | 2018-09-25 16:35 | PCM.PN.HOSP ---
Patient Problems: Active and Suspected Problems (Last Reviewed 07/22/18 @ 13:30 by Akanksha Thomas) Healthcare-associated pneumonia (Acute) Subjective: Patient has intermittent low-grade fever, T-max 100 Fahrenheit. On 2 L of oxygen through nasal cannula. Overall patient breathing is better. Patient TPN was started yesterday. She also had PRBC transfusion yesterday. Vitals/I&O's: Vital Signs Temp Pulse Resp BP Pulse Ox 100.0 F H 90 16 138/86 H 96 09/25/18 15:00 09/25/18 15:39 09/25/18 15:00 09/25/18 15:00 09/25/18 15:09 Oxygen Flow Rate (L/min) 2 Oxygen Delivery Method Nasal Cannula Weight: 69 lb 3.602 oz Body Mass Index (BMI) 16.0 Finger Stick Blood Glucose 104 Intake and Output for Last 24 Hours 09/23/18 09/24/18 09/25/18 23:59 23:59 23:59 Intake Total 124.4 / 124.4 1462.6 / 1462.6 1116.3 / 1116.3 Output Total 1450 / 1450 2049 / 2049 Balance -1325.6 / -1325.6 -587.4 / -587.4 1116.3 / 1116.3 General: Alert, Oriented x3, Cooperative, - - Protein calorie malnutrition HEENT: Atraumatic, PERRLA, EOMI, Normocephalic Neck: Supple, No JVD, Negative Carotid Bruits Lungs: No rhonchi, No wheeze, No rales, Diminished - Air entry diminished in left lung base, - - Shortness of breath on exertion Cardiovascular: Regular rate, Regular Rhythm, Normal S1, Normal S2, No murmurs Abdomen: Bowel Sounds Present, Soft, Non Tender, Non-Distended Extremities: No edema, Capillary Refill Less than 3 Seconds Skin: No rashes, No breakdown Musculoskeletal: No Tenderness to Palpation of Joints or Extremities, Arthritic Changes, Muscle Wasting - Diffuse muscle atrophy Neurological: Cranial nerves II-XII grossly intact, Deep Tendon Reflexes 2+/4 and Symmetrical, Neuro grossly intact Psych/Mental Status: Normal Affect, Appropriate Microbiology Past 72 Hours 09/22/18 11:25 Blood Culture (Wb) - Right Forearm Blood Culture - Preliminary No growth in 48 hours. 09/22/18 11:20 Blood Culture (Wb) - Anticubital Right Blood Culture - Preliminary No growth in 48 hours. 09/23/18 16:00 Urine, Clean Catch Streptococcus pneumoniae Antigen (M - Final Streptococcus pneumonia Ag 09/23/18 16:00 Urine, Clean Catch Legionella Antigen - Final 09/22/18 13:05 Mucosa - Nose Respiratory Panel (PCR) - Final Laboratory Results 09/24/18 21:30: Hgb 8.9 L, Hct 27.3 L 09/25/18 07:01: WBC 11.5 H, RBC 2.55 L, Hgb 8.3 L, Hct 25.0 L, MCV 98.0, MCH 32.5 H, MCHC 33.2, RDW 22.4 H, RDW Differential 77.9 H, Plt Count 94 L, MPV 11.4, Immature Gran % (Auto) 0.300, Neut % (Auto) 71.6 H, Lymph % (Auto) 6.4 L, Monroe % (Auto) 6.8, Eos % (Auto) 14.7 H, Baso % (Auto) 0.2, Absolute Neuts (auto) 8.2 H, Absolute Lymphs (auto) 0.73 L, Total Counted Not Reportable, Platelet Estimate ADEQUATE, Plt Morphology Comment LARGE, Anisocytosis 2+, Target Cells 2+ 09/25/18 07:01: Sodium 140, Potassium 3.4 L, Chloride 104, Carbon Dioxide 28.0, Anion Gap 8, BUN 36 H, Creatinine 2.96 H, Estim Creat Clear Calc 11.77, Est GFR (MDRD) Af Amer 22 L, Est GFR (MDRD) Non-Af 18 L, BUN/Creatinine Ratio 12.2, Glucose 121 H, Calcium 7.4 L Current Medications Acetaminophen (Tylenol) 650 mg PO Q4H PRN PRN PRN Reason: Mild-Mod Pain/Headache/Fever Albuterol Sulfate (Ventolin Aerosols) 2.5 mg INHALATION Q2H PRN PRN PRN Reason: SHORTNESS OF BREATH Last Admin: 09/22/18 23:08 Dose: 2.5 mg Albuterol/Ipratropium (Duoneb) 3 ml INHALATION Q4HWA.RT SULEIMAN Last Admin: 09/25/18 15:36 Dose: 3 ml Docusate Sodium (Colace) 200 mg PO BID PRN PRN PRN Reason: Constipation Dronabinol (Marinol) 2.5 mg PO 4X/DAY [facility] Last Admin: 09/25/18 14:41 Dose: 2.5 [facility] Last Admin: 09/25/18 08:47 Dose: 300 mg Guaifenesin (Mucinex) 1,200 mg PO BID [facility] Last Admin: 09/25/18 08:47 Dose: 1,200 mg Heparin Sodium (Beef Lung) () 50 units IV UD PRN PRN Reason: HEPARIN FLUSH Hydroxyzine HCl (Atarax Tablet) 10 mg PO Q8H PRN PRN Reason: ANXIETY Last Admin: 09/24/18 21:09 Dose: 10 mg Piperacillin Sod/Tazobactam (Sod 3.375 gm/ Sodium Chloride) 50 mls @ 12.5 mls/hr IV Q12 [facility] Last Admin: 09/25/18 09:20 Dose: 12.5 mls/hr Metoprolol Tartrate (Lopressor (Beta Lucas)) 25 mg PO BID [facility] Last Admin: 09/25/18 08:47 Dose: 25 mg Multivit/Ca Carb/B Cmplx/FA/Prenat (Nephrocaps, Renaphro) 1 capsule PO QHS [facility] Last Admin: 09/25/18 08:47 Dose: 1 capsule Nutritional Formula (Nepro Carb Steady) 120 ml PO 4X/DAY [facility] Last Admin: 09/25/18 14:44 Dose: Not Given Oxycodone HCl (Oxyir) 5 mg PO Q6H PRN PRN PRN Reason: SEVERE PAIN () Pantoprazole Sodium (Protonix) 40 mg PO DAILY [facility] Last Admin: 09/25/18 08:47 Dose: 40 mg Multivit/Folic Acid/Iron ([facility]atabs Fa) [facility] Last Admin: 09/25/18 08:47 Dose: 1 tablet Promethazine HCl (Phenergan) 12.5 mg IV Q4H PRN PRN PRN Reason: NAUSEA/VOMITING Last Admin: 09/24/18 21:39 Dose: 12.5 mg Sodium Chloride () 5 - 15 ml IV UD PRN PRN Reason: SALINE FLUSH Last Admin: 09/24/18 12:52 Dose: 10 ml Sodium Chloride () 10 - 20 ml IV UD PRN PRN Reason: PICC FLUSH Last Admin: 09/24/18 21:39 Dose: 20 ml Tizanidine HCl (Zanaflex) 4 mg PO QHS [facility] Last Admin: 09/24/18 21:10 Dose: 4 mg Voriconazole (Vfend) 200 mg PO BID [facility] Last Admin: 09/25/18 08:47 Dose: 200 mg Medical Necessity - Tobacco Use Smoking Status: Never smoker Assessment/Plan All Active Problems (Last Reviewed 07/22/18 @ 13:30 by Akanksha Thomas) Healthcare-associated pneumonia (Acute) Renal transplant rejection (Acute) GERD (gastroesophageal reflux disease) (Acute) History of cytomegalovirus infection (Acute) history of failed renal transplant (Acute) Sepsis (Acute) JENNIFFER (acute kidney injury) (Resolved) The patient is a 47 year old F with multiple comorbidities including 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 Patient has cough with yellow sputum. She also had sweating and feeling mild headache last night and during dialysis today she had a fever 102.8 Fahrenheit. Her vitals in the dialysis center was heart rate 100/min, blood pressure 178/85. She is on home oxygen 2 L during the day and 3 L during sleep. She had recurrent pneumonia first in April 2018 and then in August 2017 which was sepsis secondary to bilateral lower lobes Streptococcus pneumonia and streptococcal bacteremia and was transferred to [facility] for kidney transplant history where she was intubated on ventilator for about 2 weeks and was discharged almost 1 month. Patient is on dialysis and was sent from dialysis center to ER. Basic labs show significant leukocytosis 32.3 thousand with left shift, BUN/creatinine 38/2.36, K2.8. Chest x-ray shows left -moderate pleural effusion with underlying infiltrate and bibasilar atelectasis. Record from the [facility] dated September 14 shows patient has previous CMV positive and was admitted for seizures and encephalopathy. 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 1. Acute hypoxic respiratory failure with sepsis secondary to bilateral lower lobes complicated Pneumonia (fever, tachycardia, tachypnea and leukocytosis possible secondary to bilateral lower lobes): Patient was initially admitted in PCU and then transferred to ICU on 09/22 night after she got short of breath and dyspnea at rest. ABG 7.47/29.4/56 on 50% FiO2 Ventimask. It is suggestive of acute respiratory alkalosis. Discussed with ID . Initially started on IV vancomycin and Zosyn but MRSA nasal screen is negative and urine antigen is positive of strep pneumoniae, therefore vancomycin discontinued. Continue Zosyn, day 4. Leukocytosis has improved. Patient was transferred to PCU on 09/24/2018. Plan is to discharge on Augmentin tomorrow on the days of dialysis. Patient has to reschedule given [facility] follow-up as she had a scheduled 09/25 appointment to evaluate for jejunostomy tube and AV fistula. Blood cultures x2 are negative for more than 48 hours. Patient is on voriconazole for positive galactomannan test from bronchoscopy, BAL. Acute anemia on chronic anemia, most probably from ESRD or failure to thrive: Hemoglobin dropped to 6.7/20.9 and was transfused 1 unit on 09/24. Discussed with nursing staff to transfuse 1 more unit today. Denies obvious blood in the stool or hematemesis. 2. ESRD after kidney transplant rejection mostly secondary to chemoradiation as per patient: Patient follows Dr. Mcdaniel who is being consulted. Patient is on hemodialysis as per forest fire prevention manager recommendation. 3. History of recurrent pneumonia, 3 times since April 2018 with left [id number] pleural effusion: And had a strep pneumo in June 2018 4. Left foot soft tissue swelling: Had drop of blood to her left foot. There is soft tissue swelling on x-ray. No bony injury including fracture or dislocation. Other chronic comorbidities include hypertension, history of cytomegalovirus infection, GERD, gastric cancer status post near total gastrectomy and chemoradiation: Multiple comorbidities complicates the present care and expect difficult and delay recovery. 5. Severe protein calorie malnutrition with decreased suboptimal energy intake and generalized muscle atrophy of extremities, intercostal and paravertebral muscle atrophy will drawer in jacquard loom consult. Patient states she gets TPN from same dialysis catheter to purple port. Outside Rigger opinion regarding TPN constitution. DVT prophylaxis: Heparin 5000 units of cutaneous twice daily. Microbiology Past 72 Hours 09/22/18 11:25 Blood Culture (Wb) - Right Forearm Blood Culture - Preliminary No growth in 48 hours. 09/22/18 11:20 Blood Culture (Wb) - Anticubital Right Blood Culture - Preliminary No growth in 48 hours. 09/23/18 16:00 Urine, Clean Catch Streptococcus pneumoniae Antigen (M - Final Streptococcus pneumonia Ag 09/23/18 16:00 Urine, Clean Catch Legionella Antigen - Final 09/22/18 13:05 Mucosa - Nose Respiratory Panel (PCR) - Final Laboratory Results 09/24/18 21:30: Hgb 8.9 L, Hct 27.3 L 09/25/18 07:01: WBC 11.5 H, RBC 2.55 L, Hgb 8.3 L, Hct 25.0 L, MCV 98.0, MCH 32.5 H, MCHC 33.2, RDW 22.4 H, RDW Differential 77.9 H, Plt Count 94 L, MPV 11.4, Immature Gran % (Auto) 0.300, Neut % (Auto) 71.6 H, Lymph % (Auto) 6.4 L, Monroe % (Auto) 6.8, Eos % (Auto) 14.7 H, Baso % (Auto) 0.2, Absolute Neuts (auto) 8.2 H, Absolute Lymphs (auto) 0.73 L, Total Counted Not Reportable, Platelet Estimate ADEQUATE, Plt Morphology Comment LARGE, Anisocytosis 2+, Target Cells 2+ 09/25/18 07:01: Sodium 140, Potassium 3.4 L, Chloride 104, Carbon Dioxide 28.0, Anion Gap 8, BUN 36 H, Creatinine 2.96 H, Estim Creat Clear Calc 11.77, Est GFR (MDRD) Af Amer 22 L, Est GFR (MDRD) Non-Af 18 L, BUN/Creatinine Ratio 12.2, Glucose 121 H, Calcium 7.4 L Clinical Impression(s) from Imaging Studies Chest X-Ray 09/22/18 10:50 IMPRESSION: Small to moderate sized left pleural effusion with bibasilar atelectasis and/or infiltration superimposed on CHF. Foot X-Ray 09/22/18 11:38 IMPRESSION: Mild degenerative changes at the first metatarsal phalangeal joint. Dorsal soft tissue swelling. Chest X-Ray 09/23/18 05:20 IMPRESSION: No significant interval change when compared to prior radiograph September 22, 2018. There remains bilateral pleural effusions. There is pulmonary vascular congestion/edema. Bilateral pulmonary infiltrates. This may represent asymmetric edema. A infectious process cannot be excluded. Recommend follow-up imaging to resolution. Code Visit Inpatient E&M: 49217 Subs Hosp L3
--- NOTE | 2018-09-25 16:47 | PN_ITS ---
Patient Problems: Active and Suspected Problems (Last Reviewed 07/22/18 @ 13:30 by Akanksha Thomas) Healthcare-associated pneumonia (Acute) Subjective: Patient has intermittent low-grade fever, T-max 100 Fahrenheit. On 2 L of oxygen through nasal cannula. Overall patient breathing is better. Patient TPN was started yesterday. She also had PRBC transfusion yesterday. Vitals/I&O's: Vital Signs Temp Pulse Resp BP Pulse Ox 100.0 F H 90 16 138/86 H 96 09/25/18 15:00 09/25/18 15:39 09/25/18 15:00 09/25/18 15:00 09/25/18 15:09 Oxygen Flow Rate (L/min) 2 Oxygen Delivery Method Nasal Cannula Weight: 69 lb 3.602 oz Body Mass Index (BMI) 16.0 Finger Stick Blood Glucose 104 Intake and Output for Last 24 Hours 09/23/18 09/24/18 09/25/18 23:59 23:59 23:59 Intake Total 124.4 / 124.4 1462.6 / 1462.6 1116.3 / 1116.3 Output Total 1450 / 1450 2049 / 2049 Balance -1325.6 / -1325.6 -587.4 / -587.4 1116.3 / 1116.3 General: Alert, Oriented x3, Cooperative, - - Protein calorie malnutrition HEENT: Atraumatic, PERRLA, EOMI, Normocephalic Neck: Supple, No JVD, Negative Carotid Bruits Lungs: No rhonchi, No wheeze, No rales, Diminished - Air entry diminished in left lung base, - - Shortness of breath on exertion Cardiovascular: Regular rate, Regular Rhythm, Normal S1, Normal S2, No murmurs Abdomen: Bowel Sounds Present, Soft, Non Tender, Non-Distended Extremities: No edema, Capillary Refill Less than 3 Seconds Skin: No rashes, No breakdown Musculoskeletal: No Tenderness to Palpation of Joints or Extremities, Arthritic Changes, Muscle Wasting - Diffuse muscle atrophy Neurological: Cranial nerves II-XII grossly intact, Deep Tendon Reflexes 2+/4 and Symmetrical, Neuro grossly intact Psych/Mental Status: Normal Affect, Appropriate Microbiology Past 72 Hours 09/22/18 11:25 Blood Culture (Wb) - Right Forearm Blood Culture - Preliminary No growth in 48 hours. 09/22/18 11:20 Blood Culture (Wb) - Anticubital Right Blood Culture - Preliminary No growth in 48 hours. 09/23/18 16:00 Urine, Clean Catch Streptococcus pneumoniae Antigen (M - Fin al Streptococcus pneumonia Ag 09/23/18 16:00 Urine, Clean Catch Legionella Antigen - Final 09/22/18 13:05 Mucosa - Nose Respiratory Panel (PCR) - Final Laboratory Results 09/24/18 21:30: Hgb 8.9 L, Hct 27.3 L 09/25/18 07:01: WBC 11.5 H, RBC 2.55 L, Hgb 8.3 L, Hct 25.0 L, MCV 98.0, MCH 32.5 H, MCHC 33.2, RDW 22.4 H, RDW Differential 77.9 H, Plt Count 94 L, MPV 11.4, Immature Gran % (Auto) 0.300, Neut % (Auto) 71.6 H, Lymph % (Auto) 6.4 L, Craig % (Auto) 6.8, Eos % (Auto) 14.7 H, Baso % (Auto) 0.2, Absolute Neuts (auto) 8.2 H, Absolute Lymphs (auto) 0.73 L, Total Counted Not Reportable, Platelet Estimate ADEQUATE, Plt Morphology Comment LARGE, Anisocytosis 2+, Target Cells 2+ 09/25/18 07:01: Sodium 140, Potassium 3.4 L, Chloride 104, Carbon Dioxide 28.0, Anion Gap 8, BUN 36 H, Creatinine 2.96 H, Estim Creat Clear Calc 11.77, Est GFR (MDRD) Af Amer 22 L, Est GFR (MDRD) Non-Af 18 L, BUN/Creatinine Ratio 12.2, Glucose 121 H, Calcium 7.4 L Current Medications Acetaminophen (Tylenol) 650 mg PO Q4H PRN PRN PRN Reason: Mild-Mod Pain/Headache/Fever Albuterol Sulfate (Ventolin Aerosols) 2.5 mg INHALATION Q2H PRN PRN PRN Reason: SHORTNESS OF BREATH Last Admin: 09/22/18 23:08 Dose: 2.5 mg Albuterol/Ipratropium (Duoneb) 3 ml INHALATION Q4HWA.RT [facility] Last Admin: 09/25/18 15:36 Dose: 3 ml Docusate Sodium (Colace) 200 mg PO BID PRN PRN PRN Reason: Constipation Dronabinol (Marinol) 2.5 mg PO 4X/DAY [facility] Last Admin: 09/25/18 14:41 Dose: 2.5 [facility] Admin: 09/25/18 08:47 Dose: 300 mg Guaifenesin (Mucinex) 1,200 mg PO BID [facility] Last Admin: 09/25/18 08:47 Dose: 1,200 mg Heparin Sodium (Beef Lung) () 50 units IV UD PRN PRN Reason: HEPARIN FLUSH Hydroxyzine HCl (Atarax Tablet) 10 mg PO Q8H PRN PRN Reason: ANXIETY Last Admin: 09/24/18 21:09 Dose: 10 mg Piperacillin Sod/Tazobactam (Sod 3.375 gm/ Sodium Chloride) 50 mls @ 12.5 mls/hr IV Q12 [facility] Last Admin: 09/25/18 09:20 Dose: 12.5 mls/hr Metoprolol Tartrate (Lopressor (Beta Lucas)) 25 mg PO BID [facility] Last Admin: 09/25/18 08:47 Dose: 25 mg Multivit/Ca Carb/B Cmplx/FA/Prenat (Nephrocaps, Renaphro) 1 capsule PO QHS [facility] Last Admin: 09/25/18 08:47 Dose: 1 capsule Nutritional Formula (Nepro Carb Steady) 120 ml PO 4X/DAY [facility] Last Admin: 09/25/18 14:44 Dose: Not Given Oxycodone HCl (Oxyir) 5 mg PO Q6H PRN PRN PRN Reason: SEVERE PAIN () Pantoprazole Sodium (Protonix) 40 mg PO DAILY [facility] Last Admin: 09/25/18 08:47 Dose: 40 mg Multivit/Folic Acid/Iron ([facility]abs Fa) [facility] Last Admin: 09/25/18 08:47 Dose: 1 tablet Promethazine HCl (Phenergan) 12.5 mg IV Q4H PRN PRN PRN Reason: NAUSEA/VOMITING Last Admin: 09/24/18 21:39 Dose: 12.5 mg Sodium Chloride () 5 - 15 ml IV UD PRN PRN Reason: SALINE FLUSH Last Admin: 09/24/18 12:52 Dose: 10 ml Sodium Chloride () 10 - 20 ml IV UD PRN PRN Reason: PICC FLUSH Last Admin: 09/24/18 21:39 Dose: 20 ml Tizanidine HCl (Zanaflex) 4 mg PO QHS [facility] Last Admin: 09/24/18 21:10 Dose: 4 mg Voriconazole (Vfend) 200 mg PO BID [facility] Last Admin: 09/25/18 08:47 Dose: 200 mg Medical Necessity - Tobacco Use Smoking Status: Never smoker Assessment/Plan All Active Problems (Last Reviewed 07/22/18 @ 13:30 by Akanksha Thomas) Healthcare-associated pneumonia (Acute) Renal transplant rejection (Acute) GERD (gastroesophageal reflux disease) (Acute) History of cytomegalovirus infection (Acute) history of failed renal transplant (Acute) Sepsis (Acute) JENNIFFER (acute kidney injury) (Resolved) The patient is a 47 year old F with multiple comorbidities including ESRD on hemodialysis status post renal transplant rejection after kidney failure from [facility] emergency department for gastric cancer came to ED with cough for 2 days along with fever. Patient has cough with yellow sputum. She also had sweating and feeling mild headache last night and during dialysis today she had a fever 102.8 Fahrenheit. Her vitals in the dialysis center was heart rate 100/min, blood pressure 178/85. She is on home oxygen 2 L during the day and 3 L during sleep. She had recurrent pneumonia first in April 2018 and then in August 2017 which was sepsis secondary to bilateral lower lobes Streptococcus pneumonia and streptococcal bacteremia and was transferred to [facility] for kidney transplant history where she was intubated on ventilator for about 2 weeks and was discharged almost 1 month. Patient is on dialysis and was sent from dialysis center to ER. Basic labs show significant leukocytosis 32.3 thousand with left shift, BUN/creatinine 38/2.36, K2.8. Chest x-ray shows left -moderate pleural effusion with underlying infiltrate and bibasilar atelectasis. Record from the [facility] dated September 14 shows patient has previous CMV positive and was admitted for seizures and encephalopathy. 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 1. Acute hypoxic respiratory failure with sepsis secondary to bilateral lower lobes complicated Pneumonia (fever, tachycardia, tachypnea and leukocytosis possible secondary to bilateral lower lobes): Patient was initially admitted in PCU and then transferred to ICU on 09/22 night after she got short of breath and dyspnea at rest. ABG 7.47/29.4/56 on 50% FiO2 Ventimask. It is suggestive of acute respiratory alkalosis. Discussed with ID . Initially started on IV vancomycin and Zosyn but MRSA nasal screen is negative and urine antigen is positive of strep pneumoniae, therefore vancomycin discontinued. Continue Zosyn, day 4. Leukocytosis has improved. Patient was transferred to PCU on 09/24/2018. Plan is to discharge on Augmentin tomorrow on the days of dialysis. Patient has to reschedule given [facility] follow-up as she had a scheduled 09/25 appointment to evaluate for jejunostomy tube and AV fistula. Blood cultures x2 are negative for more than 48 hours. Patient is on voriconazole for positive galactomannan test from bronchoscopy, BAL. Acute anemia on chronic anemia, most probably from ESRD or failure to thrive: Hemoglobin dropped to 6.7/20.9 and was transfused 1 unit on 09/24. Discussed with nursing staff to transfuse 1 more unit today. Denies obvious blood in the stool or hematemesis. 2. ESRD after kidney transplant rejection mostly secondary to chemoradiation as per patient: Patient follows Dr. Mcdaniel who is being consulted. Patient is on hemodialysis as per credit administrator recommendation. 3. History of recurrent pneumonia, 3 times since April 2018 with left [id number] pleural effusion: And had a strep pneumo in June 2018 4. Left foot soft tissue swelling: Had drop of blood to her left foot. There is soft tissue swelling on x-ray. No bony injury including fracture or dislocation. Other chronic comorbidities include hypertension, history of cytomegalovirus infection, GERD, gastric cancer status post near total gastrectomy and chemoradiation: Multiple comorbidities complicates the present care and expect difficult and delay recovery. 5. Severe protein calorie malnutrition with decreased suboptimal energy intake and generalized muscle atrophy of extremities, intercostal and paravertebral muscle atrophy will director instrumentation consult. Patient states she gets TPN from same dialysis catheter to purple port. Environmental Technical Officer opinion regarding TPN constitution. DVT prophylaxis: Heparin 5000 units of cutaneous twice daily. Microbiology Past 72 Hours 09/22/18 11:25 Blood Culture (Wb) - Right Forearm Blood Culture - Preliminary No growth in 48 hours. 09/22/18 11:20 Blood Culture (Wb) - Anticubital Right Blood Culture - Preliminary No growth in 48 hours. 09/23/18 16:00 Urine, Clean Catch Streptococcus pneumoniae Antigen (M - Final Streptococcus pneumonia Ag 09/23/18 16:00 Urine, Clean Catch Legionella Antigen - Final 09/22/18 13:05 Mucosa - Nose Respiratory Panel (PCR) - Final Laboratory Results 09/24/18 21:30: Hgb 8.9 L, Hct 27.3 L 09/25/18 07:01: WBC 11.5 H, RBC 2.55 L, Hgb 8.3 L, Hct 25.0 L, MCV 98.0, MCH 32.5 H, MCHC 33.2, RDW 22.4 H, RDW Differential 77.9 H, Plt Count 94 L, MPV 11.4, Immature Gran % (Auto) 0.300, Neut % (Auto) 71.6 H, Lymph % (Auto) 6.4 L, Craig % (Auto) 6.8, Eos % (Auto) 14.7 H, Baso % (Auto) 0.2, Absolute Neuts (auto) 8.2 H, Absolute Lymphs (auto) 0.73 L, Total Counted Not Reportable, Platelet Estimate ADEQUATE, Plt Morphology Comment LARGE, Anisocytosis 2+, Target Cells 2+ 09/25/18 07:01: Sodium 140, Potassium 3.4 L, Chloride 104, Carbon Dioxide 28.0, Anion Gap 8, BUN 36 H, Creatinine 2.96 H, Estim Creat Clear Calc 11.77, Est GFR (MDRD) Af Amer 22 L, Est GFR (MDRD) Non-Af 18 L, BUN/Creatinine Ratio 12.2, Glucose 121 H, Calcium 7.4 L Clinical Impression(s) from Imaging Studies Chest X-Ray 09/22/18 10:50 IMPRESSION: Small to moderate sized left pleural effusion with bibasilar atelectasis and/or infiltration superimposed on CHF. Foot X-Ray 09/22/18 11:38 IMPRESSION: Mild degenerative changes at the first metatarsal phalangeal joint. Dorsal soft tissue swelling. Chest X-Ray 09/23/18 05:20 IMPRESSION: No significant interval change when compared to prior radiograph September 22, 2018. There remains bilateral pleural effusions. There is pulmonary vascular congestion/edema. Bilateral pulmonary infiltrates. This may represent asymmetric edema. A infectious process cannot be excluded. Recommend follow-up imaging to resolution. Code Visit Inpatient E&M: 82440 Subs Hosp L3
[2018-09-25] MEDS: tiZANidine HCl 2 MG Tablet 4 MG PO (21:11)
[2018-09-26] VITALS (11 sets, daily range): BP systolic 123–144; BP diastolic 76–89; PULSE 75–113; RESP 12–16; TEMP 36.6–36.8; O2SAT 92–98
[2018-09-26 05:24] LABS: Anion Gap 10 (5-15); BUN 47 mg/dL (7-18); BUN/Creat Ratio 12.9 RATIO (10-20); Calcium,Total 7.4 mg/dL (8.5-10.1); Chloride 106 mmol/L (98-107); Creatinine, Serum 3.65 mg/dL (0.55-1.02); EST Glomerular Filtration Rate 14 mL/min (>60); Est Glom Filt Rate - Afr Amer 17 mL/min (>60); Estimated Creatinine Clearance 9.55 ml/min; Glucose 74 mg/dL (74-106); Potassium 3.9 mmol/L (3.5-5.1); Sodium Level 141 mmol/L (136-145)
[2018-09-26 05:28] LABS: Absolute Lymphocyte Count 0.74 X10^3/ul (0.83-4.51); Absolute Neutrophil Count 5.4 X10^3/uL (2.0-7.7); Basophil# 0.05 X10^3/uL; Basophil% 0.5 % (0-1); Eosinophils% 22.6 % (0-5); Hematocrit 31.3 % (37-47); Hemoglobin 10.2 g/dl (12.0-15.0); Lymphocyte # 0.74 X10^3/ul (4.0); Lymphocyte % 7.8 % (19-41); Mean Corp Hgb Conc 32.6 g/gl (32-36); Mean Corpuscular Volume 95.1 fL (81-99); Mean Platelet Vol. 12.4 fl (6.2-12.0); Monocyte# 1.11 X10^3/uL; Monocyte% 11.7 % (0-10); Neutrophil # 5.39 X10^3/uL (2.7-7.7); Neutrophil % 57.1 % (47-70); Platelet Count 93 K/mm3 (150-450); RBC Distribution Width CV 21.5 % (11.6-14.6); RBC Distribution Width SD 69.1 fl (35.1-43.9); Red Blood Count 3.29 M/mm3 (4.2-5.4); White Blood Count 9.5 K/mm3 (4.4-11.0)
[2018-09-26 05:35] LABS: Eosinophil# 2.14 X10^3/uL
[2018-09-26 05:36] LABS: Differential Indicated SCAN CRITERIA MET; POSITIVE COUNT NO; POSITIVE DIFFERENTIAL YES; POSITIVE MORPHOLOGY YES
[2018-09-26 06:04] LABS: Differential Comment SCAN
[2018-09-26 06:07] LABS: Anisocytosis 1+; Hypochromasia 1+; Microcytosis 1+; Platelet Estimate SLT DEC (ADEQ)
[2018-09-26] MEDS: 0.9% NaCl Peripheral Flush Adult/Peds IV ×2 (06:08→06:09)
[2018-09-26] MEDS: Ipratropium/Albuterol Sulfate 3 ML AMPUL.NEB INHALATION ×3 (07:36→14:37)
--- NOTE | 2018-09-26 07:51 | RAD_ITS ---
STUDY: X-RAY CHEST REASON FOR EXAM: Female, 47 years old. History of pleural effusion. TECHNIQUE: Single AP portable view of the chest. COMPARISON: 09/23/2018. FINDINGS: There is a right-sided permacath in stable position. There is markedly improved bilateral infiltrates/edema. There is persistent bilateral pleural effusions larger on the left side. Normal size heart. Normal mediastinum and jon. Normal visualized pulmonary arteries. Normal visualized aortic arch and descending thoracic aorta. The bony structures are unchanged. There is no demonstrated abnormality of the visualized soft tissue structures of the upper abdomen. RAD/Chest PA and Lateral IMPRESSION: Improved bilateral infiltrates/edema. Electronically Signed: Burke Nelson MD at 10:25 EDT Tel , Service support ,
--- NOTE | 2018-09-26 08:18 | CPS ---
Pt was placed back on Bipap . Post aerosol rx pt continued to state she felt like she was having a hard time getting air into lungs. Pt stated that she normally feels better after aerosol but does not this time. Bipap was suggested to pt and she said she will try it for a little bit. Nurse was notified and is aware of pt's status
[2018-09-26] MEDS: Prenatal Vits Tablet 1 TABLET PO (08:37)
[2018-09-26] MEDS: Gabapentin 300 MG Capsule PO (08:37)
[2018-09-26] MEDS: guaiFENesin 1,200 MG Tablet 1200 MG PO (08:38)
[2018-09-26] MEDS: Metoprolol Tartrate 25 MG Tablet PO (08:38)
[2018-09-26] MEDS: Pantoprazole Sodium 40 MG Tablet PO (08:38)
[2018-09-26] MEDS: Voriconazole 200 MG Tablet PO (08:38)
[2018-09-26] MEDS: Dronabinol 2.5 MG Capsule PO (08:44)
--- NOTE | 2018-09-26 09:39 | DCINST_ITS ---
- Discharge Diagnoses Current Active Problems: Current Active and Chronic Problems (Last Reviewed 07/22/18 @ 13:30 by Akanksha Thomas) Healthcare-associated pneumonia (Acute) You will use the following diet at home:: Regular - on supplemental TPN 4 days week Your food should be the consistency of: Regular Discharge Activity: May Not Drive Call your doctor if you observe: Fever of 101 or Higher, Inability to urinate, Inability to have a bowel movement, Shortness of breath, Fainting spells, Chest pain, Increased palpitations (irregular heartbeat), Calf discomfort Additional Instructions: On HD T/T/S Allergies/Adverse Reactions: Allergies Sulfa (Sulfonamide Antibiotics) Allergy (Verified 09/22/18 10:32) Hives NSAIDS (Non-Steroidal Anti-Inflamma Adverse Reaction (Verified 09/22/18 10:32) Other Medications to take at Discharge Cyanocobalamin [Vitamin B12] 1,000 mcg IM Q30D 07/03/17 Dronabinol [Marinol] 2.5 mg PO 4X/DAY 07/03/17 Gabapentin [Neurontin] 300 mg PO BIDCM 07/03/17 Levonorgestrel [Mirena] 1 ea VAGINAL UD 07/03/17 Prednisone 5 mg PO DAILY 07/03/17 Vits [Prenatabs FA ] 1 tab PO DAILY 07/03/17 Tizanidine HCl [Zanaflex] 4 mg PO QHS 04/27/18 Biotin 10,000 mcg PO DAILY 05/05/18 oxycodone-acetaminophen 5 mg-325 mg tablet 1 tab PO Q6H 06/30/18 pantoprazole 40 mg tablet,delayed release 40 mg PO BID 07/22/18 Folic Acid/Vit B Complex and C [Renal Vitamin Tablet] 0.8 mg PO QHS 09/22/18 Hydroxyzine HCl 10 mg PO Q8 PRN 09/22/18 Metoprolol Tartrate [Lopressor (beta sonya)] 25 mg PO BID 09/22/18 Voriconazole 200 mg PO BID 09/22/18 Amoxicillin/Potassium Clav [Augmentin 500-125 Tablet] 1 each PO Q48H #2 tablet 09/26/18 Guaifenesin [Mucinex] 600 mg PO BID #14 tab.er.12h 09/26/18 The following prescriptions were given: Amoxicillin/Potassium Clav [Augmentin 500-125 Tablet] 1 each PO Q48H #2 tablet Guaifenesin [Mucinex] 600 mg PO BID #14 tab.er.12h Primary Care Physician: Deb Gregory MD [Primary Care Provider] - Please follow up with your Primary Care Physician in: in 1-2 week Test Results: Test results from this visit will be discussed in further detail at your follow- up appointment, if applicable. Please Follow Up With: Aquiles Vann DO When: F/U Laurel Oh NP in 2 week Please Follow Up With: Marietta Mcdaniel DO When: in 2 weeks
--- NOTE | 2018-09-26 09:39 | DS.PCM_ITS ---
Discharge Date and Diagnosis Date of Admission: 09/22/18 Date of Discharge: 09/26/18 - Primary Discharge Diagnosis Active and Suspected Problems (Last Reviewed 07/22/18 @ 13:30 by Akanksha Thomas) Healthcare-associated pneumonia (Acute) - Secondary Discharge Diagnosis Chronic Problems (Last Reviewed 07/22/18 @ 13:30 by Akanksha Thomas) Chronic renal failure, stage 5 (Chronic) Problem with dialysis access (Chronic) Pneumonia, bacterial (Chronic) CKD (chronic kidney disease) stage 4, GFR 15-29 ml/min (Chronic) History of renal transplant (Chronic) History of gastric cancer (Chronic) Essential hypertension (Chronic) Anemia, chronic renal failure (Chronic) Hospital Course and Treatment Imaging Results: 09/26/18 07:51 CXR [Chest PA and Lateral] [RAD] Routine Operations: None Summary of Care Provided: The patient is a 47 year old F [] The patient is a 47 year old F with multiple comorbidities including 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 Patient has cough with yellow sputum. She also had sweating and feeling mild headache last night and during dialysis today she had a fever 102.8 Fahrenheit. Her vitals in the dialysis center was heart rate 100/min, blood pressure 178/85. She is on home oxygen 2 L during the day and 3 L during sleep. She had recurrent pneumonia first in April 2018 and then in August 2017 which was sepsis secondary to bilateral lower lobes Streptococcus pneumonia and streptococcal bacteremia and was transferred to [facility] for kidney transplant history where she was intubated on ventilator for about 2 weeks and was discharged almost 1 month. Patient is on dialysis and was sent from dialysis center to ER. Basic labs show significant leukocytosis 32.3 thousand with left shift, BUN/creatinine 38/2.36, K2.8. Chest x-ray shows left -moderate pleural effusion with underlying infiltrate and bibasilar atelectasis. 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 1. Acute hypoxic respiratory failure with sepsis secondary to bilateral lower lobes complicated Pneumonia (fever, tachycardia, tachypnea and leukocytosis possible secondary to bilateral lower lobes): Patient was initially admitted in PCU and then transferred to ICU on 09/22 night after she got short of breath and dyspnea at rest. ABG 7.47/29.4/56 on 50% FiO2 Ventimask. It is suggestive of acute respiratory alkalosis. Discussed with ID . Initially started on IV vancomycin and Zosyn but MRSA nasal screen is negative and urine antigen is positive of strep pneumoniae, therefore vancomycin discontinued. Continue Zosyn, day 5. Leukocytosis has improved. Patient was transferred to PCU on 09/24/2018. This plan for discharge on Augmentin for 2 more days on dialysis day, after HD as per recommendation of ID. Patient has to reschedule given [facility] follow-up as she had a scheduled 09/25 appointment to evaluate for jejunostomy tube and AV fistula. Blood cultures x2 are negative for more than 48 hours. Patient is on voriconaz ole for positive galactomannan test from bronchoscopy, BAL. 2. Acute anemia on chronic anemia, most probably from ESRD or failure to thrive: Hemoglobin dropped to 6.7/20.9 and was transfused 1 unit on 09/24. Patient got a total of 2 units of PRBC. Patient gets fluid overload with PRBC and TPN. Scheduled for dialysis today. Denies obvious blood in the stool or hematemesis. 2. ESRD after kidney transplant rejection mostly secondary to chemoradiation as per patient: Patient follows Dr. Mcdaniel who is being consulted. Patient is on hemodialysis as per cleaning professional recommendation. 3. History of recurrent pneumonia, 3 times since April 2018 with left [id number] pleural effusion: And had a strep pneumo in June 2018. Repeat chest x-ray shows improvement in infiltrate and pleural effusion 4. Left foot soft tissue swelling: Much improved. There is soft tissue swelling on x-ray. No bony injury including fracture or dislocation. Other chronic comorbidities include hypertension, history of cytomegalovirus infection, GERD, gastric cancer status post near total gastrectomy and chemoradiation: Multiple comorbidities complicates the present care and expect difficult and delay recovery. 5. Severe protein calorie malnutrition with decreased suboptimal energy intake and generalized muscle atrophy of extremities, intercostal and paravertebral muscle atrophy will cement and concrete plant worker consult. Patient states she gets TPN from same dialysis catheter to purple port. Retail Custodial Associate opinion regarding TPN constitution. DVT prophylaxis: Heparin 5000 units of cutaneous twice daily. Discharge medication reconciliation done. Discharge follow-up instructions completed. Discharge process discussed with the patient and all questions were answered to patient's satisfaction. Patient is being discharged home. Patient has TPN equipments at home. Patient is to follow-up with [facility] for evaluation for jejunostomy tube and kidney transplant which is rejected. Total time spent, exact 35 minutes on discharge meds reconciliation, examination, review of imaging and blood test and discussion with the patient on follow-up instructions. Microbiology Past 72 Hours 09/22/18 11:25 Blood Culture (Wb) - Right Forearm Blood Culture - Preliminary No growth in 48 hours. 09/22/18 11:20 Blood Culture (Wb) - Anticubital Right Blood Culture - Preliminary No growth in 48 hours. 09/23/18 16:00 Urine, Clean Catch Streptococcus pneumoniae Antigen (M - Final Streptococcus pneumonia Ag 09/23/18 16:00 Urine, Clean Catch Legionella Antigen - Final Laboratory Results 09/23/18 07:45: Crossmatch See Detail 09/26/18 04:55: WBC 9.5, RBC 3.29 L, Hgb 10.2 L, Hct 31.3 L, MCV 95.1, MCH 31.0, MCHC 32.6, RDW 21.5 H, RDW Differential 69.1 H, Plt Count 93 L, MPV 12.4 H, Immature Gran % (Auto) 0.300, Neut % (Auto) 57.1, Lymph % (Auto) 7.8 L, [place] % (Auto) 11.7 H, Eos % (Auto) 22.6 H, Baso % (Auto) 0.5, Absolute Neuts (auto) 5.4, Absolute Lymphs (auto) 0.74 L, Total Counted Not Reportable, Differential Comment SCAN, Diff Path Review September foll, Platelet Estimate SLT DEC, Hypochromasia 1+, Anisocytosis 1+, Microcytosis 1+ 09/26/18 04:55: Sodium 141, Potassium 3.9, Chloride 106, Carbon Dioxide 25.0, Anion Gap 10, BUN 47 H, Creatinine 3.65 H, Estim Creat Clear Calc 9.55, Est GFR (MDRD) Af Amer 17 L, Est GFR (MDRD) Non-Af 14 L, BUN/Creatinine Ratio 12.9, Glucose 74, Calcium 7.4 L Subjective: Repeat chest x-ray was done in the morning as the patient feels little short of breath.. Patient seems fluid overloaded as she had TPN for last 2 days. Chest x-ray reported as improved bilateral infiltrates and edema. Patient is scheduled to get hemodialysis today. - Physical Exam General: Alert, Oriented x3, Cooperative HEENT: Atraumatic, PERRLA, EOMI, Normocephalic Neck: Supple, No JVD, Negative Carotid Bruits Lungs: No rhonchi, No wheeze, No rales, Diminished - Air entry is diminished on both lung bases with left more than right. Left moderate pleural effusion. Cardiovascular: Regular rate, Regular Rhythm, Normal S1, Normal S2, No murmurs Abdomen: Bowel Sounds Present, Soft, Non Tender Extremities: No edema, Capillary Refill Less than 3 Seconds Skin: No rashes, No breakdown Musculoskeletal: No Tenderness to Palpation of Joints or Extremities, Arthritic Changes, Muscle Wasting Lymphatic: No Cervical, Supraclavicular, or Inguinal Adenopathy Neurological: Cranial nerves II-XII grossly intact, Deep Tendon Reflexes 2+/4 and Symmetrical, Neuro grossly intact Psych/Mental Status: Normal Affect, Appropriate Vital Signs Temp Pulse Resp BP Pulse Ox 98.3 F 75 16 126/76 H 98 09/26/18 06:06 09/26/18 08:38 09/26/18 07:36 09/26/18 06:06 09/26/18 07:36 Oxygen Flow Rate (L/min) 2 Oxygen Delivery Method Nasal Cannula Weight: 75 lb 6.369 oz Body Mass Index (BMI) 16.0 Finger Stick Blood Glucose 104 Intake and Output for Last 24 Hours 09/24/18 09/25/18 09/26/18 23:59 23:59 23:59 Intake Total 1462.6 / 1462.6 2899.0 / 2899.0 39.7 / 39.7 Output Total 2049 / 2049 Balance -587.4 / -587.4 2899.0 / 2899.0 39.7 / 39.7 Microbiology Past 72 Hours 09/22/18 11:25 Blood Culture - Preliminary Blood Culture (Wb) - Right Forearm No growth in 48 hours. 09/22/18 11:20 Blood Culture - Preliminary Blood Culture (Wb) - Anticubital Right No growth in 48 hours. 09/23/18 16:00 Streptococcus pneumoniae Antigen (M - Final Urine, Clean Catch Streptococcus pneumonia Ag 09/23/18 16:00 Legionella Antigen - Final Urine, Clean Catch Laboratory Tests Past 24 Hrs 09/23/18 09/26/18 09/26/18 07:45 04:55 04:55 WBC 9.5 RBC 3.29 L Hgb 10.2 L Hct 31.3 L MCV 95.1 MCH 31.0 MCHC 32.6 RDW 21.5 H RDW Differential 69.1 H Plt Count 93 L MPV 12.4 H Immature Gran % (Auto) 0.300 Neut % (Auto) 57.1 Lymph % (Auto) 7.8 L [place] % (Auto) 11.7 H Eos % (Auto) 22.6 H Baso % (Auto) 0.5 Absolute Neuts (auto) 5.4 Absolute Lymphs (auto) 0.74 L Total Counted Not Reportable Differential Comment SCAN Diff Path Review May foll Platelet Estimate SLT DEC Hypochromasia 1+ Anisocytosis 1+ Microcytosis 1+ Sodium 141 Potassium 3.9 Chloride 106 Carbon Dioxide 25.0 Anion Gap 10 BUN 47 H Creatinine 3.65 H Estim Creat Clear Calc 9.55 Est GFR (MDRD) Af Amer 17 L Est GFR (MDRD) Non-Af 14 L BUN/Creatinine Ratio 12.9 Glucose 74 Calcium 7.4 L Crossmatch See Detail Discharge Activity: May Not Drive Call your doctor if you observe: Fever of 101 or Higher, Inability to urinate, Inability to have a bowel movement, Shortness of breath, Fainting spells, Chest pain, Increased palpitations (irregular heartbeat), Calf discomfort Home Medications: Medications to take at Discharge Cyanocobalamin [Vitamin B12] 1,000 mcg IM Q30D 07/03/17 Dronabinol [Marinol] 2.5 mg PO 4X/DAY 07/03/17 Gabapentin [Neurontin] 300 mg PO BIDCM 07/03/17 Levonorgestrel [Mirena] 1 ea VAGINAL UD 07/03/17 Prednisone 5 mg PO DAILY 07/03/17 Vits [Prenatabs FA ] 1 tab PO DAILY 07/03/17 Tizanidine HCl [Zanaflex] 4 mg PO QHS 04/27/18 Biotin 10,000 mcg PO DAILY 05/05/18 oxycodone-acetaminophen 5 mg-325 mg tablet 1 tab PO Q6H 06/30/18 pantoprazole 40 mg tablet,delayed release 40 mg PO BID 07/22/18 Folic Acid/Vit B Complex and C [Renal Vitamin Tablet] 0.8 mg PO QHS 09/22/18 Hydroxyzine HCl 10 mg PO Q8 PRN 09/22/18 Metoprolol Tartrate [Lopressor (beta sonya)] 25 mg PO BID 09/22/18 Voriconazole 200 mg PO BID 09/22/18 Amoxicillin/Potassium Clav [Augmentin 500-125 Tablet] 1 each PO Q48H #2 tablet 09/26/18 Guaifenesin [Mucinex] 600 mg PO BID #14 tab.er.12h 09/26/18 Following Prescrptions Were Given to Patient: Amoxicillin/Potassium Clav [Augmentin 500-125 Tablet] 1 each PO Q48H #2 tablet Guaifenesin [Mucinex] 600 mg PO BID #14 tab.er.12h Primary Care Physician: Deb Gregory MD [Primary Care Provider] - Please follow up with your Primary Care Physician in: in 1-2 week Please Follow Up With: Aquiles Vann DO When: F/U Laurel Oh NP in 2 week Please Follow Up With: Marietta Mcdaniel DO When: in 2 weeks Medical Necessity - Tobacco Use Smoking Status: Never smoker Meaningful Use Info Meaningful Use Diagnoses (Choose all that apply): None applicable Code Visit Inpatient E&M: 35269 Disch Hosp
[2018-09-26] MEDS: hydrOXYzine 10 MG Tablet PO (10:18)
--- NOTE | 2018-09-26 11:04 | PN.RENAL_ITS ---
Patient Problems: Active and Suspected Problems (Last Reviewed 07/22/18 @ 13:30 by Akanksha Thomas) Healthcare-associated pneumonia (Acute) Subjective: short of breath with TPN. Dialysis today. Continue with oral augmentin for 2 more days per ID - Physical Exam General: Alert, Oriented x3, Cooperative, - - mild resp distress, poor appetite Oral: Moist Mucosa Lungs: Rales Cardiovascular: Regular rate Abdomen: Bowel Sounds Present, Soft, Non Tender, Non-Distended Extremities: Edema Vital Signs Temp Pulse Resp BP Pulse Ox 98.1 F 89 14 140/86 H 92 09/26/18 09:15 09/26/18 09:15 09/26/18 09:15 09/26/18 09:15 09/26/18 09:15 Oxygen Flow Rate (L/min) 2 Oxygen Delivery Method Nasal Cannula Weight: 34.2 kg Body Mass Index (BMI) 16.0 Finger Stick Blood Glucose 104 Intake and Output for Last 24 Hours 09/24/18 09/25/18 09/26/18 23:59 23:59 23:59 Intake Total 1462.6 / 1462.6 2899.0 / 2899.0 39.7 / 39.7 Output Total 2049 / 2049 Balance -587.4 / -587.4 2899.0 / 2899.0 39.7 / 39.7 Microbiology Past 72 Hours 09/22/18 11:25 Blood Culture - Preliminary Blood Culture (Wb) - Right Forearm No growth in 48 hours. 09/22/18 11:20 Blood Culture - Preliminary Blood Culture (Wb) - Anticubital Right No growth in 48 hours. 09/23/18 16:00 Streptococcus pneumoniae Antigen (M - Final Urine, Clean Catch Streptococcus pneumonia Ag 09/23/18 16:00 Legionella Antigen - Final Urine, Clean Catch Laboratory Tests Past 24 Hrs 09/23/18 09/26/18 09/26/18 07:45 04:55 04:55 WBC 9.5 RBC 3.29 L Hgb 10.2 L Hct 31.3 L MCV 95.1 MCH 31.0 MCHC 32.6 RDW 21.5 H RDW Differential 69.1 H Plt Count 93 L MPV 12.4 H Immature Gran % (Auto) 0.300 Neut % (Auto) 57.1 Lymph % (Auto) 7.8 L [place] % (Auto) 11.7 H Eos % (Auto) 22.6 H Baso % (Auto) 0.5 Absolute Neuts (auto) 5.4 Absolute Lymphs (auto) 0.74 L Total Counted Not Reportable Differential Comment SCAN Diff Path Review May foll Platelet Estimate SLT DEC Hypochromasia 1+ Anisocytosis 1+ Microcytosis 1+ Sodium 141 Potassium 3.9 Chloride 106 Carbon Dioxide 25.0 Anion Gap 10 BUN 47 H Creatinine 3.65 H Estim Creat Clear Calc 9.55 Est GFR (MDRD) Af Amer 17 L Est GFR (MDRD) Non-Af 14 L BUN/Creatinine Ratio 12.9 Glucose 74 Calcium 7.4 L Crossmatch See Detail Medical Necessity - Tobacco Use Smoking Status: Never smoker Assessment/Plan All Active Problems (Last Reviewed 07/22/18 @ 13:30 by Akanksha Thomas) Healthcare-associated pneumonia (Acute) Renal transplant rejection (Acute) GERD (gastroesophageal reflux disease) (Acute) History of cytomegalovirus infection (Acute) history of failed renal transplant (Acute) Sepsis (Acute) JENNIFFER (acute kidney injury) (Resolved) 1. 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 Dialysis today. 2. Failed kidney transplant received from adoptive mother. 3. Fever with leukocytosis due to UTI, pneumonia in immune compromised host. Will discharge on oral augmentin for two more doses 3. Failure to thrive started on TPN 4. Anemia s/p blood transfusion. EPO on dialysis. 5. Bilateral pleural effusion, pneumonia ultrafiltration today as tolerated on dialysis
--- NOTE | 2018-09-26 11:36 | CM.UR ---
Met face to face with patient who states she does not need HHC this evening. States that she is independent with TPN. spoke with Shama at [facility] and alerted her. Also explained the patient had additional questions for them. Shama agrees to call the patient later to discuss her questions. Also spoke with Verito at [facility]. Verito states she talked to patient who said all she needs is lab work. Verito states she is going to see if dialysis can draw the labs. Spoke with Jeri Goff RN who states Wy[place] and dialysis catheters are so close together that they are under one dressing. Larry Ascencio RN, CCM.
[2018-09-26] MEDS: proMETHazine 25 MG/ML Syringe 12.5 MG IV (12:49)
[2018-09-26] MEDS: 0.9% NaCl PICC Flush IV (12:49)
[2018-09-26] MEDS: ALPRAZolam 0.5 MG Tablet PO (14:11)
[2018-09-26] MEDS: tiZANidine HCl 2 MG Tablet 4 MG PO (15:04)
--- NOTE | 2018-09-26 15:19 | PCM.PN.HOSP ---
Patient Problems: Active and Suspected Problems (Last Reviewed 07/22/18 @ 13:30 by Akanksha Thomas) Healthcare-associated pneumonia (Acute) Subjective: Patient feels short of breath in the morning but she is getting hemodialysis now. She is feeling better on hemodialysis in regards to shortness of breath but she has cramps and leg pain which is chronic in nature. Tizanidine 4 mg ordered for now. Objective: General: Alert, Oriented x3, Cooperative, Severe Protein calorie malnutrition; cachetic HEENT: Atraumatic, PERRLA, EOMI, Normocephalic Neck: Supple, No JVD, Negative Carotid Bruits Lungs: No rhonchi, No wheeze, No rales, Air entry diminished in left lung base,Shortness of breath on exertion Cardiovascular: Regular rate, Regular Rhythm, Normal S1, Normal S2, No murmurs Abdomen: Bowel Sounds Present, Soft, Non Tender, Non-Distended Extremities: No edema, Capillary Refill Less than 3 Seconds Skin: No rashes, No breakdown Musculoskeletal: No Tenderness to Palpation of Joints or Extremities, Arthritic Changes, Diffuse muscle atrophy. Bony tenderness. Neurological: Cranial nerves II-XII grossly intact, Deep Tendon Reflexes 2+/4 and Symmetrical, Neuro grossly intact Psych/Mental Status: Normal Affect, Appropriate Vitals/I&O's: Vital Signs Temp Pulse Resp BP Pulse Ox 98.1 F 107 H 16 140/86 H 92 09/26/18 09:15 09/26/18 14:37 09/26/18 14:37 09/26/18 09:15 09/26/18 09:15 Oxygen Flow Rate (L/min) 3 Oxygen Delivery Method Nasal Cannula Weight: 75 lb 6.369 oz Body Mass Index (BMI) 16.0 Finger Stick Blood Glucose 104 Intake and Output for Last 24 Hours 09/24/18 09/25/18 09/26/18 23:59 23:59 23:59 Intake Total 1462.6 / 1462.6 2899.0 / 2899.0 72.9 / 72.9 Output Total 2049 Balance -587.4 / -587.4 2899.0 / 2899.0 72.9 / 72.9 Microbiology Past 72 Hours 09/22/18 11:25 Blood Culture (Wb) - Right Forearm Blood Culture - Preliminary No growth in 48 hours. 09/22/18 11:20 Blood Culture (Wb) - Anticubital Right Blood Culture - Preliminary No growth in 48 hours. 09/23/18 16:00 Urine, Clean Catch Streptococcus pneumoniae Antigen (M - Final Streptococcus pneumonia Ag 09/23/18 16:00 Urine, Clean Catch Legionella Antigen - Final Laboratory Results 09/23/18 07:45: Crossmatch See Detail 09/26/18 04:55: WBC 9.5, RBC 3.29 L, Hgb 10.2 L, Hct 31.3 L, MCV 95.1, MCH 31.0, MCHC 32.6, RDW 21.5 H, RDW Differential 69.1 H, Plt Count 93 L, MPV 12.4 H, Immature Gran % (Auto) 0.300, Neut % (Auto) 57.1, Lymph % (Auto) 7.8 L, [place] % (Auto) 11.7 H, Eos % (Auto) 22.6 H, Baso % (Auto) 0.5, Absolute Neuts (auto) 5.4, Absolute Lymphs (auto) 0.74 L, Total Counted Not Reportable, Differential Comment SCAN, Diff Path Review May foll, Platelet Estimate SLT DEC, Hypochromasia 1+, Anisocytosis 1+, Microcytosis 1+ 09/26/18 04:55: Sodium 141, Potassium 3.9, Chloride 106, Carbon Dioxide 25.0, Anion Gap 10, BUN 47 H, Creatinine 3.65 H, Estim Creat Clear Calc 9.55, Est GFR (MDRD) Af Amer 17 L, Est GFR (MDRD) Non-Af 14 L, BUN/Creatinine Ratio 12.9, Glucose 74, Calcium 7.4 L Current Medications Acetaminophen (Tylenol) 650 mg PO Q4H PRN PRN PRN Reason: Mild-Mod Pain/Headache/Fever Albuterol Sulfate (Ventolin Aerosols) 2.5 mg INHALATION Q2H PRN PRN PRN Reason: SHORTNESS OF BREATH Last Admin: 09/22/18 23:08 Dose: 2.5 mg Albuterol/Ipratropium (Duoneb) 3 ml INHALATION Q4HWA.RT SULEIMAN Last Admin: 09/26/18 14:37 Dose: 3 ml Alprazolam (Xanax) 0.5 mg PO TID PRN PRN Reason: anxiety Last Admin: 09/26/18 14:11 Dose: 0.5 mg Docusate Sodium (Colace) 200 mg PO BID PRN PRN PRN Reason: Constipation Dronabinol (Marinol) 2.5 mg PO 4X/DAY [facility] Last Admin: 09/26/18 14:26 Dose: Not Given Gabapentin (Neurontin) 300 mg PO BIDCM [facility] Last Admin: 09/26/18 08:37 Dose: 300 mg Guaifenesin (Mucinex) 1,200 mg PO BID [facility] Last Admin: 09/26/18 08:38 Dose: 1,200 mg Heparin Sodium (Beef Lung) () 50 units IV UD PRN PRN Reason: HEPARIN FLUSH Hydroxyzine HCl (Atarax Tablet) 10 mg PO Q8H PRN PRN Reason: ANXIETY Last Admin: 09/26/18 10:18 Dose: 10 mg Piperacillin Sod/Tazobactam (Sod 3.375 gm/ Sodium Chloride) 50 mls @ 12.5 mls/hr IV Q12 [facility] Last Admin: 09/26/18 09:30 Dose: 12.5 mls/hr Multivitamins 10 ml/ Chromium/Copper/Manganese/Seleni/Zn 1 ml/ Folic Acid 1 mg/ Amino Acids/Electrolytes 2,011.2 mls @ 42 mls/hr IV .Q24H [facility] Stop: 09/27/18 15:47 Last Admin: 09/26/18 10:43 Dose: Not Given Fat Emulsion Intravenous (Intralipid 20%) 250 mls @ 21 mls/hr IV .[id number] [facility] Stop: 09/27/18 03:54 Last Admin: 09/26/18 10:44 Dose: Not Given Metoprolol Tartrate (Lopressor (Beta Lucas)) 25 mg PO BID [facility] Last Admin: 09/26/18 08:38 Dose: 25 mg Multivit/Ca Carb/B Cmplx/FA/Prenat (Nephrocaps, Renaphro) 1 capsule PO QHS [facility] Last Admin: 09/25/18 08:47 Dose: 1 capsule Nutritional Formula (Nepro Carb Steady) 120 ml PO 4X/DAY [facility] Last Admin: 09/26/18 14:27 Dose: Not Given Oxycodone HCl (Oxyir) 5 mg PO Q6H PRN PRN PRN Reason: SEVERE PAIN (6-02/25) Pantoprazole Sodium (Protonix) 40 mg PO DAILY [facility] Last Admin: 09/26/18 08:38 Dose: 40 mg Multivit/Folic Acid/Iron (Prenatabs Fa) 1 tablet PO DAILYCM [facility] Last Admin: 09/26/18 08:37 Dose: 1 tablet Promethazine HCl (Phenergan) 12.5 mg IV Q4H PRN PRN PRN Reason: NAUSEA/VOMITING Last Admin: 09/26/18 12:49 Dose: 12.5 mg Sodium Chloride () 5 - 15 ml IV UD PRN PRN Reason: SALINE FLUSH Last Admin: 09/26/18 06:09 Dose: 10 ml Sodium Chloride () 10 - 20 ml IV UD PRN PRN Reason: PICC FLUSH Last Admin: 09/26/18 12:49 Dose: 20 ml Tizanidine HCl (Zanaflex) 4 mg PO QHS [facility] Last Admin: 09/26/18 15:04 Dose: 4 mg Voriconazole (Vfend) 200 mg PO BID [facility] Last Admin: 09/26/18 08:38 Dose: 200 mg Medical Necessity - Tobacco Use Smoking Status: Never smoker Assessment/Plan All Active Problems (Last Reviewed 07/22/18 @ 13:30 by Akanksha Thomas) Healthcare-associated pneumonia (Acute) Renal transplant rejection (Acute) GERD (gastroesophageal reflux disease) (Acute) History of cytomegalovirus infection (Acute) history of failed renal transplant (Acute) Sepsis (Acute) JENNIFFER (acute kidney injury) (Resolved) The patient is a 47 year old F with multiple comorbidities including 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 Patient has cough with yellow sputum. She also had sweating and feeling mild headache last night and during dialysis today she had a fever 102.8 Fahrenheit. Her vitals in the dialysis center was heart rate 100/min, blood pressure 178/85. She is on home oxygen 2 L during the day and 3 L during sleep. She had recurrent pneumonia first in April 2018 and then in August 2017 which was sepsis secondary to bilateral lower lobes Streptococcus pneumonia and streptococcal bacteremia and was transferred to [facility] for kidney transplant history where she was intubated on ventilator for about 2 weeks and was discharged almost 1 month. Patient is on dialysis and was sent from dialysis center to ER. Basic labs show significant leukocytosis 32.3 thousand with left shift, BUN/creatinine 38/2.36, K2.8. Chest x-ray shows left -moderate pleural effusion with underlying infiltrate and bibasilar atelectasis. Record from the [facility] dated September 14 shows patient has previous CMV positive and was admitted for seizures and encephalopathy. 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 1. Acute hypoxic respiratory failure with sepsis secondary to bilateral lower lobes complicated Pneumonia (fever, tachycardia, tachypnea and leukocytosis possible secondary to bilateral lower lobes): Patient was initially admitted in PCU and then transferred to ICU on 09/22 night after she got short of breath and dyspnea at rest. ABG 7.47/29.4/56 on 50% FiO2 Ventimask. It is suggestive of acute respiratory alkalosis. Discussed with ID . Initially started on IV vancomycin and Zosyn but MRSA nasal screen is negative and urine antigen is positive of strep pneumoniae, therefore vancomycin discontinued. Continue Zosyn, day 5. Leukocytosis has improved. Patient was transferred to PCU on 09/24/2018. This plan is for discharge on Augmentin for 2 more days on dialysis day, after HD as per recommendation of ID. Patient has to reschedule given [facility] follow-up as she had a scheduled 09/25 appointment to evaluate for jejunostomy tube and AV fistula. Blood cultures x2 are negative for more than 48 hours. Patient is on voriconazole for positive galactomannan test from bronchoscopy, BAL. 2. Acute anemia on chronic anemia, most probably from ESRD or failure to thrive: Hemoglobin dropped to 6.7/20.9 and was transfused 1 unit on 09/24. Patient got a total of 2 units of PRBC. Patient gets fluid overload with PRBC and TPN. Pt is having dialysis now. Denies obvious blood in the stool or hematemesis. No blood transfusion or TPN. 2. ESRD after kidney transplant rejection mostly secondary to chemoradiation as per patient: Patient follows Dr. Mcdaniel who is being consulted. Patient is on hemodialysis as per peanut grader recommendation. 3. History of recurrent pneumonia, 3 times since April 2018 with left [id number] pleural effusion: And had a strep pneumo in June 2018. Repeat chest x-ray shows improvement in infiltrate and pleural effusion/edema 4. Left foot soft tissue swelling: Much improved. There is soft tissue swelling on x-ray. No bony injury including fracture or dislocation. Other chronic comorbidities include hypertension, history of cytomegalovirus infection, GERD, gastric cancer status post near total gastrectomy and chemoradiation: Multiple comorbidities complicates the present care and expect difficult and delay recovery. 5. Severe protein calorie malnutrition with decreased suboptimal energy intake and generalized muscle atrophy of extremities, intercostal and paravertebral muscle atrophy will bulbs farmworker consult. Had TPN. No plan for TPN today. DVT prophylaxis: Heparin 5000 units of cutaneous twice elizabeth Code Visit Inpatient E&M: 56666 Subs Hosp L3
--- NOTE | 2018-09-26 15:23 | PN_ITS ---
Patient Problems: Active and Suspected Problems (Last Reviewed 07/22/18 @ 13:30 by Akanksha Thomas) Healthcare-associated pneumonia (Acute) Subjective: Patient feels short of breath in the morning but she is getting hemodialysis now. She is feeling better on hemodialysis in regards to shortness of breath but she has cramps and leg pain which is chronic in nature. Tizanidine 4 mg ordered for now. Objective: General: Alert, Oriented x3, Cooperative, Severe Protein calorie malnutrition; cachetic HEENT: Atraumatic, PERRLA, EOMI, Normocephalic Neck: Supple, No JVD, Negative Carotid Bruits Lungs: No rhonchi, No wheeze, No rales, Air entry diminished in left lung base,Shortness of breath on exertion Cardiovascular: Regular rate, Regular Rhythm, Normal S1, Normal S2, No murmurs Abdomen: Bowel Sounds Present, Soft, Non Tender, Non-Distended Extremities: No edema, Capillary Refill Less than 3 Seconds Skin: No rashes, No breakdown Musculoskeletal: No Tenderness to Palpation of Joints or Extremities, Arthritic Changes, Diffuse muscle atrophy. Bony tenderness. Neurological: Cranial nerves II-XII grossly intact, Deep Tendon Reflexes 2+/4 and Symmetrical, Neuro grossly intact Psych/Mental Status: Normal Affect, Appropriate Vitals/I&O's: Vital Signs Temp Pulse Resp BP Pulse Ox 98.1 F 107 H 16 140/86 H 92 09/26/18 09:15 09/26/18 14:37 09/26/18 14:37 09/26/18 09:15 09/26/18 09:15 Oxygen Flow Rate (L/min) 3 Oxygen Delivery Method Nasal Cannula Weight: 75 lb 6.369 oz Body Mass Index (BMI) 16.0 Finger Stick Blood Glucose 104 Intake and Output for Last 24 Hours 09/24/18 09/25/18 09/26/18 23:59 23:59 23:59 Intake Total 1462.6 / 1462.6 2899.0 / 2899.0 72.9 / 72.9 Output Total 2049 Balance -587.4 / -587.4 2899.0 / 2899.0 72.9 / 72.9 Microbiology Past 72 Hours 09/22/18 11:25 Blood Culture (Wb) - Right Forearm Blood Culture - Preliminary No growth in 48 hours. 09/22/18 11:20 Blood Culture (Wb) - Anticubital Right Blood Culture - Preliminary No growth in 48 hours. 09/23/18 16:00 Urine, Clean Catch Streptococcus pneumoniae Antigen (M - Final Streptococcus pneumonia Ag 09/23/18 16:00 Urine, Clean Catch Legionella Antigen - Final Laboratory Results 09/23/18 07:45: Crossmatch See Detail 09/26/18 04:55: WBC 9.5, RBC 3.29 L, Hgb 10.2 L, Hct 31.3 L, MCV 95.1, MCH 31.0, MCHC 32.6, RDW 21.5 H, RDW Differential 69.1 H, Plt Count 93 L, MPV 12.4 H, Immature Gran % (Auto) 0.300, Neut % (Auto) 57.1, Lymph % (Auto) 7.8 L, [place] % (Auto) 11.7 H, Eos % (Auto) 22.6 H, Baso % (Auto) 0.5, Absolute Neuts (auto) 5.4, Absolute Lymphs (auto) 0.74 L, Total Counted Not Reportable, Differential Comment SCAN, Diff Path Review May foll, Platelet Estimate SLT DEC, Hypochromasia 1+, Anisocytosis 1+, Microcytosis 1+ 09/26/18 04:55: Sodium 141, Potassium 3.9, Chloride 106, Carbon Dioxide 25.0, Anion Gap 10, BUN 47 H, Creatinine 3.65 H, Estim Creat Clear Calc 9.55, Est GFR (MDRD) Af Amer 17 L, Est GFR (MDRD) Non-Af 14 L, BUN/Creatinine Ratio 12.9, Glucose 74, Calcium 7.4 L Current Medications Acetaminophen (Tylenol) 650 mg PO Q4H PRN PRN PRN Reason: Mild-Mod Pain/Headache/Fever Albuterol Sulfate (Ventolin Aerosols) 2.5 mg INHALATION Q2H PRN PRN PRN Reason: SHORTNESS OF BREATH Last Admin: 09/22/18 23:08 Dose: 2.5 mg Albuterol/Ipratropium (Duoneb) 3 ml INHALATION Q4HWA.RT SULEIMAN Last Admin: 09/26/18 14:37 Dose: 3 ml Alprazolam (Xanax) 0.5 mg PO TID PRN PRN Reason: anxiety Last Admin: 09/26/18 14:11 Dose: 0.5 mg Docusate Sodium (Colace) 200 mg PO BID PRN PRN PRN Reason: Constipation Dronabinol (Marinol) 2.5 mg PO 4X/DAY [facility] Last Admin: 09/26/18 14:26 Dose: Not Given Gabapentin (Neurontin) 300 mg PO BIDCM [facility] Last Admin: 09/26/18 08:37 Dose: 300 mg Guaifenesin (Mucinex) 1,200 mg PO BID [facility] Last Admin: 09/26/18 08:38 Dose: 1,200 mg Heparin Sodium (Beef Lung) () 50 units IV UD PRN PRN Reason: HEPARIN FLUSH Hydroxyzine HCl (Atarax Tablet) 10 mg PO Q8H PRN PRN Reason: ANXIETY Last Admin: 09/26/18 10:18 Dose: 10 mg Piperacillin Sod/Tazobactam (Sod 3.375 gm/ Sodium Chloride) 50 mls @ 12.5 mls/hr IV Q12 [facility] Last Admin: 09/26/18 09:30 Dose: 12.5 mls/hr Multivitamins 10 ml/ Chromium/Copper/Manganese/Seleni/Zn 1 ml/ Folic Acid 1 mg/ Amino Acids/Electrolytes 2,011.2 mls @ 42 mls/hr IV .Q24H [facility] Stop: 09/27/18 15:47 Last Admin: 09/26/18 10:43 Dose: Not Given Fat Emulsion Intravenous (Intralipid 20%) 250 mls @ 21 mls/hr IV .[id number] [facility] Stop: 09/27/18 03:54 Last Admin: 09/26/18 10:44 Dose: Not Given Metoprolol Tartrate (Lopressor (Beta Lucas)) 25 mg PO BID [facility] Last Admin: 09/26/18 08:38 Dose: 25 mg Multivit/Ca Carb/B Cmplx/FA/Prenat (Nephrocaps, Renaphro) 1 capsule PO QHS [facility] Last Admin: 09/25/18 08:47 Dose: 1 capsule Nutritional Formula (Nepro Carb Steady) 120 ml PO 4X/DAY [facility] Last Admin: 09/26/18 14:27 Dose: Not Given Oxycodone HCl (Oxyir) 5 mg PO Q6H PRN PRN PRN Reason: SEVERE PAIN (6-02/25) Pantoprazole Sodium (Protonix) 40 mg PO DAILY [facility] Last Admin: 09/26/18 08:38 Dose: 40 mg Multivit/Folic Acid/Iron (Prenatabs Fa) 1 tablet PO DAILYCM [facility] Last Admin: 09/26/18 08:37 Dose: 1 tablet Promethazine HCl (Phenergan) 12.5 mg IV Q4H PRN PRN PRN Reason: NAUSEA/VOMITING Last Admin: 09/26/18 12:49 Dose: 12.5 mg Sodium Chloride () 5 - 15 ml IV UD PRN PRN Reason: SALINE FLUSH Last Admin: 09/26/18 06:09 Dose: 10 ml Sodium Chloride () 10 - 20 ml IV UD PRN PRN Reason: PICC FLUSH Last Admin: 09/26/18 12:49 Dose: 20 ml Tizanidine HCl (Zanaflex) 4 mg PO QHS [facility] Last Admin: 09/26/18 15:04 Dose: 4 mg Voriconazole (Vfend) 200 mg PO BID [facility] Last Admin: 09/26/18 08:38 Dose: 200 mg Medical Necessity - Tobacco Use Smoking Status: Never smoker Assessment/Plan All Active Problems (Last Reviewed 07/22/18 @ 13:30 by Akanksha Thomas) Healthcare-associated pneumonia (Acute) Renal transplant rejection (Acute) GERD (gastroesophageal reflux disease) (Acute) History of cytomegalovirus infection (Acute) history of failed renal transplant (Acute) Sepsis (Acute) JENNIFFER (acute kidney injury) (Resolved) The patient is a 47 year old F with multiple comorbidities including 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 Patient has cough with yellow sputum. She also had sweating and feeling mild headache last night and during dialysis today she had a fever 102.8 Fahrenheit. Her vitals in the dialysis center was heart rate 100/min, blood pressure 178/85. She is on home oxygen 2 L during the day and 3 L during sleep. She had recurrent pneumonia first in April 2018 and then in August 2017 which was sepsis secondary to bilateral lower lobes Streptococcus pneumonia and streptococcal bacteremia and was transferred to [facility] for kidney transplant history where she was intubated on ventilator for about 2 weeks and was discharged almost 1 month. Patient is on dialysis and was sent from dialysis center to ER. Basic labs show significant leukocytosis 32.3 thousand with left shift, BUN/creatinine 38/2.36, K2.8. Chest x-ray shows left -moderate pleural effusion with underlying infiltrate and bibasilar atelectasis. Record from the [facility] dated September 14 shows patient has previous CMV positive and was admitted for seizures and encephalopathy. 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 1. Acute hypoxic respiratory failure with sepsis secondary to bilateral lower lobes complicated Pneumonia (fever, tachycardia, tachypnea and leukocytosis possible secondary to bilateral lower lobes): Patient was initially admitted in PCU and then transferred to ICU on 09/22 night after she got short of breath and dyspnea at rest. ABG 7.47/29.4/56 on 50% FiO2 Ventimask. It is suggestive of acute respiratory alkalosis. Discussed with ID . Initially started on IV vancomycin and Zosyn but MRSA nasal screen is negative and urine antigen is positive of strep pneumoniae, therefore vancomycin discontinued. Continue Zosyn, day 5. Leukocytosis has improved. Patient was transferred to PCU on 09/24/2018. This plan is for discharge on Augmentin for 2 more days on dialysis day, after HD as per recommendation of ID. Patient has to reschedule given [facility] follow-up as she had a scheduled 09/25 appointment to evaluate for jejunostomy tube and AV fistula. Blood cultures x2 are negative for more than 48 hours. Patient is on voriconazole for positive galactomannan test from bronchoscopy, BAL. 2. Acute anemia on chronic anemia, most probably from ESRD or failure to thrive: Hemoglobin dropped to 6.7/20.9 and was transfused 1 unit on 09/24. Patient got a total of 2 units of PRBC. Patient gets fluid overload with PRBC and TPN. Pt is having dialysis now. Denies obvious blood in the stool or hematemesis. No blood transfusion or TPN. 2. ESRD after kidney transplant rejection mostly secondary to chemoradiation as per patient: Patient follows Dr. Mcdaniel who is being consulted. Patient is on hemodialysis as per supervisor cook room recommendation. 3. History of recurrent pneumonia, 3 times since April 2018 with left [id number] pleural effusion: And had a strep pneumo in June 2018. Repeat chest x-ray shows improvement in infiltrate and pleural effusion/edema 4. Left foot soft tissue swelling: Much improved. There is soft tissue swelling on x-ray. No bony injury including fracture or dislocation. Other chronic comorbidities include hypertension, history of cytomegalovirus infection, GERD, gastric cancer status post near total gastrectomy and chemoradiation: Multiple comorbidities complicates the present care and expect difficult and delay recovery. 5. Severe protein calorie malnutrition with decreased suboptimal energy intake and generalized muscle atrophy of extremities, intercostal and paravertebral muscle atrophy will cloth hauler consult. Had TPN. No plan for TPN today. DVT prophylaxis: Heparin 5000 units of cutaneous twice elizabeth Code Visit Inpatient E&M: 48262 Subs Hosp L3
--- NOTE | 2018-09-26 15:23 | PCM.DC.SUM ---
Discharge Date and Diagnosis Date of Admission: 09/22/18 Date of Discharge: 09/26/18 - Primary Discharge Diagnosis Active and Suspected Problems (Last Reviewed 07/22/18 @ 13:30 by Akanksha Thomas) Healthcare-associated pneumonia (Acute) - Secondary Discharge Diagnosis Chronic Problems (Last Reviewed 07/22/18 @ 13:30 by Akanksha Thomas) Chronic renal failure, stage 5 (Chronic) Problem with dialysis access (Chronic) Pneumonia, bacterial (Chronic) CKD (chronic kidney disease) stage 4, GFR 15-29 ml/min (Chronic) History of renal transplant (Chronic) History of gastric cancer (Chronic) Essential hypertension (Chronic) Anemia, chronic renal failure (Chronic) Hospital Course and Treatment Imaging Results: 09/26/18 07:51 CXR [Chest PA and Lateral] [RAD] Routine Operations: None Summary of Care Provided: The patient is a 47 year old F [] The patient is a 47 year old F with multiple comorbidities including 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 Patient has cough with yellow sputum. She also had sweating and feeling mild headache last night and during dialysis today she had a fever 102.8 Fahrenheit. Her vitals in the dialysis center was heart rate 100/min, blood pressure 178/85. She is on home oxygen 2 L during the day and 3 L during sleep. She had recurrent pneumonia first in April 2018 and then in August 2017 which was sepsis secondary to bilateral lower lobes Streptococcus pneumonia and streptococcal bacteremia and was transferred to [facility] for kidney transplant history where she was intubated on ventilator for about 2 weeks and was discharged almost 1 month. Patient is on dialysis and was sent from dialysis center to ER. Basic labs show significant leukocytosis 32.3 thousand with left shift, BUN/creatinine 38/2.36, K2.8. Chest x-ray shows left -moderate pleural effusion with underlying infiltrate and bibasilar atelectasis. 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 1. Acute hypoxic respiratory failure with sepsis secondary to bilateral lower lobes complicated Pneumonia (fever, tachycardia, tachypnea and leukocytosis possible secondary to bilateral lower lobes): Patient was initially admitted in PCU and then transferred to ICU on 09/22 night after she got short of breath and dyspnea at rest. ABG 7.47/29.4/56 on 50% FiO2 Ventimask. It is suggestive of acute respiratory alkalosis. Discussed with ID . Initially started on IV vancomycin and Zosyn but MRSA nasal screen is negative and urine antigen is positive of strep pneumoniae, therefore vancomycin discontinued. Continue Zosyn, day 5. Leukocytosis has improved. Patient was transferred to PCU on 09/24/2018. This plan for discharge on Augmentin for 2 more days on dialysis day, after HD as per recommendation of ID. Patient has to reschedule given [facility] follow-up as she had a scheduled 09/25 appointment to evaluate for jejunostomy tube and AV fistula. Blood cultures x2 are negative for more than 48 hours. Patient is on voriconazole for positive galactomannan test from bronchoscopy, BAL. 2. Acute anemia on chronic anemia, most probably from ESRD or failure to thrive: Hemoglobin dropped to 6.7/20.9 and was transfused 1 unit on 09/24. Patient got a total of 2 units of PRBC. Patient gets fluid overload with PRBC and TPN. Scheduled for dialysis today. Denies obvious blood in the stool or hematemesis. 2. ESRD after kidney transplant rejection mostly secondary to chemoradiation as per patient: Patient follows Dr. Mcdaniel who is being consulted. Patient is on hemodialysis as per day care assistant recommendation. 3. History of recurrent pneumonia, 3 times since April 2018 with left [id number] pleural effusion: And had a strep pneumo in June 2018. Repeat chest x-ray shows improvement in infiltrate and pleural effusion 4. Left foot soft tissue swelling: Much improved. There is soft tissue swelling on x-ray. No bony injury including fracture or dislocation. Other chronic comorbidities include hypertension, history of cytomegalovirus infection, GERD, gastric cancer status post near total gastrectomy and chemoradiation: Multiple comorbidities complicates the present care and expect difficult and delay recovery. 5. Severe protein calorie malnutrition with decreased suboptimal energy intake and generalized muscle atrophy of extremities, intercostal and paravertebral muscle atrophy will telecom assistant consult. Patient states she gets TPN from same dialysis catheter to purple port. Front Elevator Operator opinion regarding TPN constitution. DVT prophylaxis: Heparin 5000 units of cutaneous twice daily. Discharge medication reconciliation done. Discharge follow-up instructions completed. Discharge process discussed with the patient and all questions were answered to patient's satisfaction. Patient is being discharged home. Patient has TPN equipments at home. Patient is to follow-up with [facility] for evaluation for jejunostomy tube and kidney transplant which is rejected. Total time spent, exact 35 minutes on discharge meds reconciliation, examination, review of imaging and blood test and discussion with the patient on follow-up instructions. Microbiology Past 72 Hours 09/22/18 11:25 Blood Culture (Wb) - Right Forearm Blood Culture - Preliminary No growth in 48 hours. 09/22/18 11:20 Blood Culture (Wb) - Anticubital Right Blood Culture - Preliminary No growth in 48 hours. 09/23/18 16:00 Urine, Clean Catch Streptococcus pneumoniae Antigen (M - Final Streptococcus pneumonia Ag 09/23/18 16:00 Urine, Clean Catch Legionella Antigen - Final Laboratory Results 09/23/18 07:45: Crossmatch See Detail 09/26/18 04:55: WBC 9.5, RBC 3.29 L, Hgb 10.2 L, Hct 31.3 L, MCV 95.1, MCH 31.0, MCHC 32.6, RDW 21.5 H, RDW Differential 69.1 H, Plt Count 93 L, MPV 12.4 H, Immature Gran % (Auto) 0.300, Neut % (Auto) 57.1, Lymph % (Auto) 7.8 L, [place] % (Auto) 11.7 H, Eos % (Auto) 22.6 H, Baso % (Auto) 0.5, Absolute Neuts (auto) 5.4, Absolute Lymphs (auto) 0.74 L, Total Counted Not Reportable, Differential Comment SCAN, Diff Path Review September foll, Platelet Estimate SLT DEC, Hypochromasia 1+, Anisocytosis 1+, Microcytosis 1+ 09/26/18 04:55: Sodium 141, Potassium 3.9, Chloride 106, Carbon Dioxide 25.0, Anion Gap 10, BUN 47 H, Creatinine 3.65 H, Estim Creat Clear Calc 9.55, Est GFR (MDRD) Af Amer 17 L, Est GFR (MDRD) Non-Af 14 L, BUN/Creatinine Ratio 12.9, Glucose 74, Calcium 7.4 L Subjective: Repeat chest x-ray was done in the morning as the patient feels little short of breath.. Patient seems fluid overloaded as she had TPN for last 2 days. Chest x-ray reported as improved bilateral infiltrates and edema. Patient is scheduled to get hemodialysis today. - Physical Exam General: Alert, Oriented x3, Cooperative HEENT: Atraumatic, PERRLA, EOMI, Normocephalic Neck: Supple, No JVD, Negative Carotid Bruits Lungs: No rhonchi, No wheeze, No rales, Diminished - Air entry is diminished on both lung bases with left more than right. Left moderate pleural effusion. Cardiovascular: Regular rate, Regular Rhythm, Normal S1, Normal S2, No murmurs Abdomen: Bowel Sounds Present, Soft, Non Tender Extremities: No edema, Capillary Refill Less than 3 Seconds Skin: No rashes, No breakdown Musculoskeletal: No Tenderness to Palpation of Joints or Extremities, Arthritic Changes, Muscle Wasting Lymphatic: No Cervical, Supraclavicular, or Inguinal Adenopathy Neurological: Cranial nerves II-XII grossly intact, Deep Tendon Reflexes 2+/4 and Symmetrical, Neuro grossly intact Psych/Mental Status: Normal Affect, Appropriate Vital Signs Temp Pulse Resp BP Pulse Ox 98.3 F 75 16 126/76 H 98 09/26/18 06:06 09/26/18 08:38 09/26/18 07:36 09/26/18 06:06 09/26/18 07:36 Oxygen Flow Rate (L/min) 2 Oxygen Delivery Method Nasal Cannula Weight: 75 lb 6.369 oz Body Mass Index (BMI) 16.0 Finger Stick Blood Glucose 104 Intake and Output for Last 24 Hours 09/24/18 09/25/18 09/26/18 23:59 23:59 23:59 Intake Total 1462.6 / 1462.6 2899.0 / 2899.0 39.7 / 39.7 Output Total 2049 / 2049 Balance -587.4 / -587.4 2899.0 / 2899.0 39.7 / 39.7 Microbiology Past 72 Hours 09/22/18 11:25 Blood Culture - Preliminary Blood Culture (Wb) - Right Forearm No growth in 48 hours. 09/22/18 11:20 Blood Culture - Preliminary Blood Culture (Wb) - Anticubital Right No growth in 48 hours. 09/23/18 16:00 Streptococcus pneumoniae Antigen (M - Final Urine, Clean Catch Streptococcus pneumonia Ag 09/23/18 16:00 Legionella Antigen - Final Urine, Clean Catch Laboratory Tests Past 24 Hrs 09/23/18 09/26/18 09/26/18 07:45 04:55 04:55 WBC 9.5 RBC 3.29 L Hgb 10.2 L Hct 31.3 L MCV 95.1 MCH 31.0 MCHC 32.6 RDW 21.5 H RDW Differential 69.1 H Plt Count 93 L MPV 12.4 H Immature Gran % (Auto) 0.300 Neut % (Auto) 57.1 Lymph % (Auto) 7.8 L [place] % (Auto) 11.7 H Eos % (Auto) 22.6 H Baso % (Auto) 0.5 Absolute Neuts (auto) 5.4 Absolute Lymphs (auto) 0.74 L Total Counted Not Reportable Differential Comment SCAN Diff Path Review May foll Platelet Estimate SLT DEC Hypochromasia 1+ Anisocytosis 1+ Microcytosis 1+ Sodium 141 Potassium 3.9 Chloride 106 Carbon Dioxide 25.0 Anion Gap 10 BUN 47 H Creatinine 3.65 H Estim Creat Clear Calc 9.55 Est GFR (MDRD) Af Amer 17 L Est GFR (MDRD) Non-Af 14 L BUN/Creatinine Ratio 12.9 Glucose 74 Calcium 7.4 L Crossmatch See Detail Discharge Activity: May Not Drive Call your doctor if you observe: Fever of 101 or Higher, Inability to urinate, Inability to have a bowel movement, Shortness of breath, Fainting spells, Chest pain, Increased palpitations (irregular heartbeat), Calf discomfort Home Medications: Medications to take at Discharge Cyanocobalamin [Vitamin B12] 1,000 mcg IM Q30D 07/03/17 Dronabinol [Marinol] 2.5 mg PO 4X/DAY 07/03/17 Gabapentin [Neurontin] 300 mg PO BIDCM 07/03/17 Levonorgestrel [Mirena] 1 ea VAGINAL UD 07/03/17 Prednisone 5 mg PO DAILY 07/03/17 Vits [Prenatabs FA ] 1 tab PO DAILY 07/03/17 Tizanidine HCl [Zanaflex] 4 mg PO QHS 04/27/18 Biotin 10,000 mcg PO DAILY 05/05/18 oxycodone-acetaminophen 5 mg-325 mg tablet 1 tab PO Q6H 06/30/18 pantoprazole 40 mg tablet,delayed release 40 mg PO BID 07/22/18 Folic Acid/Vit B Complex and C [Renal Vitamin Tablet] 0.8 mg PO QHS 09/22/18 Hydroxyzine HCl 10 mg PO Q8 PRN 09/22/18 Metoprolol Tartrate [Lopressor (beta sonya)] 25 mg PO BID 09/22/18 Voriconazole 200 mg PO BID 09/22/18 Amoxicillin/Potassium Clav [Augmentin 500-125 Tablet] 1 each PO Q48H #2 tablet 09/26/18 Guaifenesin [Mucinex] 600 mg PO BID #14 tab.er.12h 09/26/18 Following Prescrptions Were Given to Patient: Amoxicillin/Potassium Clav [Augmentin 500-125 Tablet] 1 each PO Q48H #2 tablet Guaifenesin [Mucinex] 600 mg PO BID #14 tab.er.12h Primary Care Physician: Deb Gregory MD [Primary Care Provider] - Please follow up with your Primary Care Physician in: in 1-2 week Please Follow Up With: Aquiles Vann DO When: F/U Laurel Oh NP in 2 week Please Follow Up With: Marietta Mcdaniel DO When: in 2 weeks Medical Necessity - Tobacco Use Smoking Status: Never smoker Meaningful Use Info Meaningful Use Diagnoses (Choose all that apply): None applicable Code Visit Inpatient E&M: 62134 Disch Hosp
--- NOTE | 2018-09-26 15:57 | DIALYSIS ---
Hemodialysis tx completed x 2.5 hours. Pt tolerated tx fair. Fluid removed 2,000ml. Pt very anxious throughout tx until patient was medicated with Xanax from [facility]. Verbal report given post tx. Pt to be discharged shortly after dialysis.
[2018-09-28 14:48] LABS: Pathologist Review Reviewed
== END 2018-09-26 16:12 | disposition home or self-care (01) | DRG 871 ==
LOC: ED 11:03 → PCU 12:09 → ICU 09-23 08:48 → PCU 09-24 10:06 → ICU 09-25 10:07
PROVIDERS: Internal Medicine Critical Care Medicine; Admitting Provider Internal Medicine; Emergency Provider Emergency Medicine; Family Provider Internal Medicine; PCP Internal Medicine; Visit Provider Internal Medicine
DX: A41.9 Sepsis, unspecified organism (principal); E43 Unspecified severe protein-calorie malnutrition; N18.6 End stage renal disease; J96.01 Acute respiratory failure with hypoxia; J18.9 Pneumonia, unspecified organism; T86.11 Kidney transplant rejection; Z68.1 Body mass index [BMI] 19.9 or less, adult; I12.0 Hypertensive chronic kidney disease with stage 5 chronic kidney disease or end stage renal disease; Z99.2 Dependence on renal dialysis; Y95 Nosocomial condition; Z85.028 Personal history of other malignant neoplasm of stomach; Y84.2 Radiological procedure and radiotherapy as the cause of abnormal reaction of the patient, or of later complication, without mention of misadventure at the time of the procedure; D63.1 Anemia in chronic kidney disease; Z90.3 Acquired absence of stomach [part of]
CPT/HCPCS: 36415; 36600; 71045; 71046; 73630; 80048; 80076; 80202; 81002; 82803; 82962; 83605; 83735; 83880; 84484; 85014; 85018; 85025; 86644; 86850; 86900; 86920; 86922; 87040; 87449; 87633; 87641; 90937; 94002; 94003; 94640; 94667; 97116; 97162; 97166; 97530; 97535; 97802; 99284; J7030; J7040; P9040; A4216; G0257

== ENCOUNTER → 2018-10-08 11:43 | Outpatient (CLI) | payer OTHER, SELFPAY ==
[2018-10-08 10:57] VITALS: BMI 16.0
--- NOTE | 2018-10-08 11:45 | RAD_ITS ---
STUDY: X-RAY CHEST REASON FOR EXAM: Female, 48 years old. Shortness of breath TECHNIQUE: PA and lateral views of the chest COMPARISON: X-ray chest September 26, 2018 FINDINGS: Stable right chest catheters are present. Stable left greater right pleural effusions are present. There has been interval increased aeration of the lung bases with persistent mild edema. The heart is normal in size. The visualized osseous structures are within normal limits. RAD/Chest PA and Lateral IMPRESSION: Stable left greater than right pleural effusions. Interval increased aeration of the lung bases with persistent mild edema. Electronically Signed: Pancho Khoury, at 20:48 EDT Tel , Service support ,
== END ==
PROVIDERS: Family Provider Internal Medicine; PCP Internal Medicine; Referring Provider Nurse Practitioner Acute Care; Visit Provider Nurse Practitioner Acute Care
DX: R06.00 Dyspnea, unspecified (principal)
CPT/HCPCS: 71046

== ENCOUNTER 2018-10-13 14:27 | Outpatient (RCR) | payer OTHER, SELFPAY ==
[2018-09-22 13:03] VITALS: BMI 16.0
[2018-09-28 18:04] LABS: Hematocrit 35.9 % (37-47); Hemoglobin 11.7 g/dl (12.0-15.0); Mean Corp Hgb Conc 32.6 g/gl (32-36); Mean Corpuscular Hgb 31.3 pg (27.0-32.0); Mean Platelet Vol. 13.2 fl (6.2-12.0); Platelet Count 92 K/mm3 (150-450); RBC Distribution Width CV 19.9 % (11.6-14.6); RBC Distribution Width SD 69.6 fl (35.1-43.9); Red Blood Count 3.74 M/mm3 (4.2-5.4)
[2018-09-28 18:08] LABS: Scan Indicated on CBC? Y/N YES- FLAGS NOTED
[2018-09-28 18:29] LABS: Differential Comment SCANNED
[2018-09-28 18:32] LABS: ALB/GLOB Ratio 0.4 RATIO (0.9-2.4); AST(SGOT) 19 U/L (15-37); Alanine Aminotransfer ALT/SGPT 16 U/L (13-56); Albumin, Serum 1.8 g/dL (3.2-5.0); Alkaline Phosphatase 172 U/L (45-117); Anion Gap 9 (5-15); BUN 59 mg/dL (7-18); BUN/Creat Ratio 15.7 RATIO (10-20); Calcium,Total 7.3 mg/dL (8.5-10.1); Chloride 102 mmol/L (98-107); Creatinine, Serum 3.75 mg/dL (0.55-1.02); EST Glomerular Filtration Rate 14 mL/min (>60); Est Glom Filt Rate - Afr Amer 17 mL/min (>60); Globulin 4.6 g/dL (2.2-4.2); Glucose 83 mg/dL (74-106); Magnesium 1.9 mg/dL (1.6-2.6); Phosphorus 6.4 mg/dL (2.5-4.9); Potassium 3.6 mmol/L (3.5-5.1); Protein, Total 6.4 g/dL (6.4-8.2); Sodium Level 136 mmol/L (136-145)
[2018-10-05 17:06] LABS: Hematocrit 35.3 % (37-47); Hemoglobin 11.3 g/dl (12.0-15.0); Mean Corpuscular Hgb 31.8 pg (27.0-32.0); Mean Corpuscular Volume 99.4 fL (81-99); Platelet Count 92 K/mm3 (150-450); RBC Distribution Width CV 21.3 % (11.6-14.6); RBC Distribution Width SD 72.1 fl (35.1-43.9); Red Blood Count 3.55 M/mm3 (4.2-5.4); White Blood Count 9.4 K/mm3 (4.4-11.0)
[2018-10-05 17:07] LABS: Scan Indicated on CBC? Y/N YES- FLAGS NOTED
[2018-10-05 17:08] LABS: ALB/GLOB Ratio 0.4 RATIO (0.9-2.4); AST(SGOT) 26 U/L (15-37); Alanine Aminotransfer ALT/SGPT 21 U/L (13-56); Albumin, Serum 2.1 g/dL (3.2-5.0); Alkaline Phosphatase 165 U/L (45-117); Anion Gap 10 (5-15); BUN 53 mg/dL (7-18); BUN/Creat Ratio 13.4 RATIO (10-20); Calcium,Total 7.5 mg/dL (8.5-10.1); Chloride 102 mmol/L (98-107); Creatinine, Serum 3.95 mg/dL (0.55-1.02); EST Glomerular Filtration Rate 13 mL/min (>60); Est Glom Filt Rate - Afr Amer 16 mL/min (>60); Globulin 4.8 g/dL (2.2-4.2); Glucose 121 mg/dL (74-106); Magnesium 2.2 mg/dL (1.6-2.6); Potassium 3.5 mmol/L (3.5-5.1); Protein, Total 6.9 g/dL (6.4-8.2); Sodium Level 137 mmol/L (136-145)
[2018-10-13 14:46] LABS: Hematocrit 31.5 % (37-47); Hemoglobin 10.1 g/dl (12.0-15.0); Mean Corp Hgb Conc 32.1 g/gl (32-36); Mean Corpuscular Hgb 32.8 pg (27.0-32.0); Mean Corpuscular Volume 102.3 fL (81-99); Mean Platelet Vol. 12.1 fl (6.2-12.0); Platelet Count 131 K/mm3 (150-450); RBC Distribution Width CV 22.2 % (11.6-14.6); RBC Distribution Width SD 78.5 fl (35.1-43.9); Red Blood Count 3.08 M/mm3 (4.2-5.4); Scan Indicated on CBC? Y/N YES- FLAGS NOTED; White Blood Count 11.9 K/mm3 (4.4-11.0)
[2018-10-13 15:11] LABS: ALB/GLOB Ratio 0.5 RATIO (0.9-2.4); AST(SGOT) 26 U/L (15-37); Alanine Aminotransfer ALT/SGPT 28 U/L (13-56); Albumin, Serum 2.5 g/dL (3.2-5.0); Alkaline Phosphatase 158 U/L (45-117); Anion Gap 10 (5-15); BUN 41 mg/dL (7-18); BUN/Creat Ratio 16.3 RATIO (10-20); Calcium,Total 8.2 mg/dL (8.5-10.1); Chloride 99 mmol/L (98-107); Creatinine, Serum 2.51 mg/dL (0.55-1.02); EST Glomerular Filtration Rate 22 mL/min (>60); Est Glom Filt Rate - Afr Amer 26 mL/min (>60); Globulin 4.9 g/dL (2.2-4.2); Glucose 109 mg/dL (74-106); Magnesium 2.1 mg/dL (1.6-2.6); Phosphorus 4.1 mg/dL (2.5-4.9); Potassium 4.2 mmol/L (3.5-5.1); Protein, Total 7.4 g/dL (6.4-8.2); Sodium Level 138 mmol/L (136-145)
== END 2018-10-16 23:59 ==
LOC: HHLAB 14:27
PROVIDERS: Family Provider Internal Medicine; PCP Internal Medicine; Referring Provider Internal Medicine; Visit Provider Internal Medicine
DX: K29.70 Gastritis, unspecified, without bleeding (principal); B25.9 Cytomegaloviral disease, unspecified; Z45.2 Encounter for adjustment and management of vascular access device; N18.6 End stage renal disease; T86.11 Kidney transplant rejection
CPT/HCPCS: 80053; 83735; 84100; 85027

== ENCOUNTER 2018-10-19 13:21 | Outpatient (RCR) | payer OTHER, SELFPAY ==
[2018-10-08 10:57] VITALS: BMI 16.0
[2018-10-19 13:46] LABS: Hematocrit 32.3 % (37-47); Hemoglobin 10.3 g/dl (12.0-15.0); Mean Corp Hgb Conc 31.9 g/gl (32-36); Mean Corpuscular Hgb 32.7 pg (27.0-32.0); Mean Corpuscular Volume 102.5 fL (81-99); Mean Platelet Vol. 11.4 fl (6.2-12.0); Platelet Count 174 K/mm3 (150-450); RBC Distribution Width CV 20.7 % (11.6-14.6); RBC Distribution Width SD 77.7 fl (35.1-43.9); Red Blood Count 3.15 M/mm3 (4.2-5.4); White Blood Count 9.4 K/mm3 (4.4-11.0)
[2018-10-19 13:50] LABS: ALB/GLOB Ratio 0.5 RATIO (0.9-2.4); AST(SGOT) 20 U/L (15-37); Alanine Aminotransfer ALT/SGPT 27 U/L (13-56); Albumin, Serum 2.2 g/dL (3.2-5.0); Alkaline Phosphatase 156 U/L (45-117); Anion Gap 14 (5-15); BUN 53 mg/dL (7-18); Calcium,Total 7.5 mg/dL (8.5-10.1); Chloride 101 mmol/L (98-107); Creatinine, Serum 3.78 mg/dL (0.55-1.02); EST Glomerular Filtration Rate 14 mL/min (>60); Est Glom Filt Rate - Afr Amer 17 mL/min (>60); Globulin 4.8 g/dL (2.2-4.2); Glucose 113 mg/dL (74-106); Magnesium 2.4 mg/dL (1.6-2.6); Phosphorus 5.9 mg/dL (2.5-4.9); Potassium 3.9 mmol/L (3.5-5.1); Scan Indicated on CBC? Y/N YES- FLAGS NOTED; Sodium Level 140 mmol/L (136-145)
== END 2018-11-15 23:59 ==
LOC: HHLAB 13:21
PROVIDERS: Family Provider Internal Medicine; PCP Internal Medicine; Referring Provider Internal Medicine; Visit Provider Internal Medicine
DX: T86.11 Kidney transplant rejection (principal); N18.6 End stage renal disease
CPT/HCPCS: 80053; 83735; 84100; 85027

== ENCOUNTER → 2018-10-20 11:06 | Outpatient (CLI) | payer OTHER, SELFPAY ==
[2018-10-08 10:57] VITALS: BMI 16.0
--- NOTE | 2018-10-20 11:36 | RAD_ITS ---
STUDY: X-RAY CHEST REASON FOR EXAM: Female, 48 years old. Pleural effusions. TECHNIQUE: PA and lateral views of the chest. COMPARISON: Comparison is made with prior examination dated October 08, 2018. FINDINGS: A right-sided double-lumen catheter as well as a central line are seen with the tips in the right atrium. Stable moderate left pleural effusion and small right pleural effusion with bibasilar atelectasis. Normal size heart. Normal mediastinum and jon. Normal visualized pulmonary arteries. Normal visualized aortic arch and descending thoracic aorta. There is demineralization of the osseous structures. Normal visualized ribs, clavicles, and shoulders. There is no demonstrated abnormality of the visualized soft tissue structures of the upper abdomen. RAD/Chest PA and Lateral IMPRESSION: Stable bilateral pleural effusions with bibasilar atelectasis. Electronically Signed: Vikas Haney, at 13:49 EDT , Service support ,
[2018-10-20 11:38] LABS: Platelet Count 123 K/mm3 (150-450)
[2018-10-20 11:46] LABS: International Normalized Ratio 1.1; Prothrombin Time (Protime)PT. 13.8 SECONDS (11.7-14.9)
[2018-10-20 11:47] LABS: Partial Thromboplast Time 32.5 Seconds (24.1-36.2)
== END ==
PROVIDERS: Family Provider Internal Medicine; PCP Internal Medicine; Referring Provider Nurse Practitioner Acute Care; Visit Provider Nurse Practitioner Acute Care
DX: J90 Pleural effusion, not elsewhere classified (principal)
CPT/HCPCS: 36415; 71046; 85049; 85610; 85730

== ENCOUNTER → 2018-11-02 07:13 | Outpatient (CLI) | payer OTHER, SELFPAY ==
[2018-10-08 10:57] VITALS: BMI 16.0
--- NOTE | 2018-11-02 13:00 | PFT ---
INTRODUCTION: The patient is a 48-year-old female that presents for pulmonary function studies secondary to a diagnosis of shortness of breath. Respiratory therapy reports good patient effort. Bronchodilators were used during testing. INTERPRETATION: Forced expiration spirometry demonstrates no evidence of a large airways obstructive ventilatory defect. There was no significant response to aerosolized bronchodilators, based upon strict ATS criteria. Spirograms are of good quality and plateau normally. Body plethysmography was performed and revealed evidence of a severe restrictive ventilatory defect. The remainder of the lung volumes are symmetrically reduced. Diffusing capacity by single breath CO is severely reduced at 29% of predicted. IMPRESSION: Severe restrictive ventilatory impairment with symmetric reduction in diffusing capacity. Consider dedicated chest imaging to evaluate for the presence of interstitial lung disease.
== END ==
PROVIDERS: Family Provider Internal Medicine; PCP Internal Medicine; Referring Provider Nurse Practitioner Acute Care; Visit Provider Nurse Practitioner Acute Care
DX: R06.00 Dyspnea, unspecified (principal)
CPT/HCPCS: 94060; 94726; 94729

== ENCOUNTER 2018-11-02 12:33 | Outpatient (RCR) | payer OTHER, SELFPAY ==
[2018-10-08 10:57] VITALS: BMI 16.0
[2018-11-02 13:21] LABS: Absolute Lymphocyte Count 1.65 X10^3/ul (0.83-4.51); Absolute Neutrophil Count 7.4 X10^3/uL (2.0-7.7); Basophil# 0.02 X10^3/uL; Basophil% 0.2 % (0-1); Eosinophil# 0.35 X10^3/uL; Eosinophils% 3.3 % (0-5); Hematocrit 34.9 % (37-47); Hemoglobin 10.8 g/dl (12.0-15.0); Lymphocyte # 1.65 X10^3/ul (4.0); Lymphocyte % 15.7 % (19-41); Mean Corp Hgb Conc 30.9 g/gl (32-36); Mean Corpuscular Hgb 33.4 pg (27.0-32.0); Mean Platelet Vol. 11.9 fl (6.2-12.0); Monocyte# 1.06 X10^3/uL; Monocyte% 10.1 % (0-10); Neutrophil # 7.37 X10^3/uL (2.7-7.7); Neutrophil % 70.4 % (47-70); Platelet Count 121 K/mm3 (150-450); RBC Distribution Width CV 21.1 % (11.6-14.6); Red Blood Count 3.23 M/mm3 (4.2-5.4); White Blood Count 10.5 K/mm3 (4.4-11.0)
[2018-11-02 13:26] LABS: Differential Indicated SCAN CRITERIA MET; POSITIVE COUNT NO; POSITIVE DIFFERENTIAL NO; POSITIVE MORPHOLOGY YES
[2018-11-02 13:46] LABS: ALB/GLOB Ratio 0.6 RATIO (0.9-2.4); AST(SGOT) 30 U/L (15-37); Alanine Aminotransfer ALT/SGPT 46 U/L (13-56); Albumin, Serum 2.6 g/dL (3.2-5.0); Alkaline Phosphatase 239 U/L (45-117); Anion Gap 11 (5-15); BUN 62 mg/dL (7-18); BUN/Creat Ratio 14.5 RATIO (10-20); Calcium,Total 8.1 mg/dL (8.5-10.1); Chloride 102 mmol/L (98-107); Creatinine, Serum 4.29 mg/dL (0.55-1.02); EST Glomerular Filtration Rate 12 mL/min (>60); Est Glom Filt Rate - Afr Amer 14 mL/min (>60); Globulin 4.6 g/dL (2.2-4.2); Glucose 116 mg/dL (74-106); Magnesium 2.6 mg/dL (1.6-2.6); Phosphorus 4.4 mg/dL (2.5-4.9); Protein, Total 7.2 g/dL (6.4-8.2); Sodium Level 139 mmol/L (136-145)
[2018-11-02 13:48] LABS: Anisocytosis 1+; Hypochromasia 1+; Macrocytosis 1+; Platelet Estimate SLT DEC (ADEQ); Target Cells RARE
== END 2018-11-15 23:59 ==
LOC: HHLAB 12:33
PROVIDERS: Family Provider Internal Medicine; PCP Internal Medicine; Referring Provider Internal Medicine; Visit Provider Internal Medicine
DX: Z48.815 Encounter for surgical aftercare following surgery on the digestive system (principal); Z43.1 Encounter for attention to gastrostomy; Z79.899 Other long term (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 therapy
CPT/HCPCS: 80053; 83735; 84100; 85025

== ENCOUNTER 2018-11-08 16:22 | Emergency (ER) | payer OTHER, SELFPAY ==
[2018-10-08 10:57] VITALS: BMI 16.0
[2018-11-08 16:23] VITALS: BP 137/87; PULSE 96; RESP 18; TEMP 36.8; O2SAT 94; BMI 14.1
[2018-11-08 16:33] VITALS: RESP 30
--- NOTE | 2018-11-08 16:44 | ED.VISSUMM ---
- ER Visit Summary Date of Service: 11/08/18 Chief Complaint: Bloody emesis History of Present Illness: The patient is a 48 F extensive past medical history of end-stage renal disease with dialysis on Friday. Prior stomach cancer with a near total gastrectomy. Reflux, anemia, prior renal transplant that failed. Patient had a J- tube placed last week at the [facility]. Today she had nausea vomiting x2 with blood. She also noticed today and her J-tube that she had blood-tinged liquid. She denies any known melena. She is on no blood thinners. She has had a GI bleed before. Physical Examination: Middle-aged female no acute distress. Vital signs are stable and afebrile. HEENT exam is unremarkable. Lungs clear to auscultation bilaterally. Heart regular rhythm no murmur. Abdomen is soft and nontender. She has a J-tube in place there is blood-tinged liquid in it. No clots. It is not bright red blood. Abdomen otherwise is nondistended without peritoneal signs. He is moving all 4 extremities. The neurovascular intact. 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 There is no edema. Her right chest wall she has a triple-lumen catheter. Back nontender. Patient is extremely thin. Neurologically she is awake and alert with no focal motor deficits. Test Results: CBC shows no acute change. White count 8. Hemoglobin 10.7 which is her baseline she runs between 9 and 10.8. Platelets 118,000 which is also her baseline. Chemistries unremarkable with chronic renal failure with a creatinine of 3.52. Emergency Department Course and Treatment: Concern for an upper GI bleed versus irritation from the J-tube. Repeat exam patient is doing well at 1801. We discussed her labs. They are comfortable being discharged home. She will follow-up with the [facility] surgeon on Friday that placed her J-tube. She knows return if she has much heavier bleeding, hematemesis or melena. Treatment Plan: Continue her current medications and follow-up with her [facility] surgeon. Disposition: dc Impression: Acute upper GI bleed secondary to J-tube. Placement Chronic anemia of chronic disease End-stage renal disease and dialysis This note was generated with [employer] dictation software. It may contain incorrect words, spelling, and punctuation that were not noted in review of the chart prior to signing ED Disposition - Plan for ED Patient: Referrals: Deb Gregory MD [Primary Care Provider] -
[2018-11-08 17:14] LABS: Hematocrit 34.9 % (37-47); Hemoglobin 10.7 g/dl (12.0-15.0); Mean Corp Hgb Conc 30.7 g/gl (32-36); Mean Corpuscular Hgb 33.6 pg (27.0-32.0); Mean Corpuscular Volume 109.7 fL (81-99); Platelet Count 118 K/mm3 (150-450); RBC Distribution Width CV 21.3 % (11.6-14.6); RBC Distribution Width SD 85.1 fl (35.1-43.9); Red Blood Count 3.18 M/mm3 (4.2-5.4); White Blood Count 8.5 K/mm3 (4.4-11.0)
[2018-11-08 17:16] LABS: BUN 34 mg/dL (7-18); Creatinine, Serum 3.52 mg/dL (0.55-1.02); Estimated Creatinine Clearance 10.05 ml/min; Glucose 109 mg/dL (74-106)
[2018-11-08 17:17] LABS: Anion Gap 5 (5-15); BUN/Creat Ratio 9.7 RATIO (10-20); Calcium,Total 7.9 mg/dL (8.5-10.1); Chloride 103 mmol/L (98-107); EST Glomerular Filtration Rate 15 mL/min (>60); Est Glom Filt Rate - Afr Amer 18 mL/min (>60); Potassium 4.5 mmol/L (3.5-5.1); Sodium Level 136 mmol/L (136-145)
[2018-11-08 17:56] LABS: Differential Comment SCANNED; Scan Indicated on CBC? Y/N YES- FLAGS NOTED
--- NOTE | 2018-11-08 18:05 | DCINST.ED_ITS ---
ED Disposition - Plan for ED Patient: Disposition: Home or Assisted Living Instructions: GI BLEED, Upper (Stable) Additional Instructions: Continue your current medications. Call and follow-up with your [facility] surgeon who placed your J-tube and let him know that you have had some mild bleeding. Return to the ER if large amounts of bloody vomit, black or bloody stool or feeling a lot worse.
[2018-11-08 18:15] VITALS: BP 152/98; PULSE 89; RESP 20; O2SAT 97
[2018-11-09 14:32] LABS: Pathologist Review Reviewed
== END 2018-11-08 18:15 | disposition home or self-care (01) ==
PROVIDERS: Emergency Provider Emergency Medicine; Family Provider Internal Medicine; PCP Internal Medicine
DX: K94.11 Enterostomy hemorrhage (principal); K92.2 Gastrointestinal hemorrhage, unspecified; N18.6 End stage renal disease; R11.2 Nausea with vomiting, unspecified; D63.8 Anemia in other chronic diseases classified elsewhere; Z99.2 Dependence on renal dialysis; K21.9 Gastro-esophageal reflux disease without esophagitis; Z85.028 Personal history of other malignant neoplasm of stomach; Z94.0 Kidney transplant status; Z90.3 Acquired absence of stomach [part of]; Z86.2 Personal history of diseases of the blood and blood-forming organs and certain disorders involving the immune mechanism
CPT/HCPCS: 36592; 80048; 85027; 99282; A4216

== ENCOUNTER 2018-11-20 08:03 | Day surgery (SDC) | payer OTHER, MEDICARE, SELFPAY ==
[2018-11-18 10:13] VITALS: BMI 14.1
--- NOTE | 2018-11-18 15:38 | PCM.HP.BLA ---
Problem List (1) history of failed renal transplant Status: Acute (2) Chronic renal failure, stage 5 Status: Chronic (3) History of gastric cancer Status: Chronic History and Physical Date of Admission: 11/20/18 [facility] [address] [place] [address] OFFICE VISIT Date of Service: 11/18/18 MR#:[id number] Name: JANES NJ Rep #:[id number] : 1970 Provider:Asia Davis PA-C Age/Sex: 48/F Location:[facility] Status:Signed Intake Vital Signs 11/18/18 Height 4 ft 11 in 11/18/18 Weight: 69 lb 11/18/18 Body Mass Index (BMI) 13.9 11/18/18 Respiratory Rate 18 Intake Visit Reasons: CHECK FISTULA Chief Complaint: fever Bodybuilder Required: No Is patient in pain?: No Allergies Sulfa (Sulfonamide Antibiotics) Allergy (Verified 11/18/18 10:12) Hives NSAIDS (Non-Steroidal Anti-Inflamma Adverse Reaction (Verified 11/18/18 10:12) Other Medications Cyanocobalamin [Vitamin B12] 1,000 mcg IM Q30D 07/03/17 [History Confirmed 11/18/18] Dronabinol [Marinol] 2.5 mg PO 4X/DAY 07/03/17 [History Confirmed 11/18/18] Gabapentin [Neurontin] 300 mg PO BIDCM 07/03/17 [History Confirmed 11/18/18] Levonorgestrel [Mirena] 1 ea VAGINAL UD 07/03/17 [History Confirmed 11/18/18] Prednisone 5 mg PO DAILY 07/03/17 [History Confirmed 11/18/18] Vits [Prenatabs FA ] 1 tab PO DAILY 07/03/17 [History Confirmed 11/18/18] Tizanidine HCl [Zanaflex] 4 mg PO QHS 04/27/18 [History Confirmed 11/18/18] Biotin 10,000 mcg PO DAILY 05/05/18 [History Confirmed 11/18/18] oxycodone-acetaminophen 5 mg-325 mg tablet 1 tab PO Q6H 06/30/18 [History Confirmed 11/18/18] pantoprazole 40 mg tablet,delayed release 40 mg PO BID 07/22/18 [History Confirmed 11/18/18] Hydroxyzine HCl 10 mg PO Q8 PRN 09/22/18 [History Confirmed 11/18/18] Metoprolol Tartrate [Lopressor (beta sonya)] 25 mg PO BID 09/22/18 [History Confirmed 11/18/18] Voriconazole 200 mg PO BID 09/22/18 [History Confirmed 11/18/18] Folic Acid/Vit B Complex and C [Renal Vitamin Tablet] 0.8 mg PO QHS 11/18/18 [History Confirmed 11/18/18] Guaifenesin [Mucinex] 600 mg PO BID 11/18/18 [History Confirmed 11/18/18] sucralfate 1 gram tablet 1 g PO QACHS 11/18/18 [History Confirmed 11/18/18] PFSH Medical History Problem with dialysis access (Chronic) Renal transplant rejection (Acute) GERD (gastroesophageal reflux disease) (Acute) History of cytomegalovirus infection (Acute) history of failed renal transplant (Acute) Sepsis (Acute) Pneumonia, bacterial (Chronic) JENNIFFER (acute kidney injury) (Resolved) CKD (chronic kidney disease) stage 4, GFR 15-29 ml/min (Chronic) History of gastric cancer (Chronic) Essential hypertension (Chronic) Anemia, chronic renal failure (Chronic) History of gastrectomy (Acute) Surgical History History of renal transplant (Chronic) s/p left arteriovenous fistula creation (Acute ~05/06/18) Social History (Updated 11/18/18 @ 15:36 by Asia Davis PA-C) Smoking Status: Never smoker second hand exposure: No alcohol intake: never substance use type: does not use caffeine: No frequency: does not exercise Surgical H&P: Yes HPI: JANES NJ, is a 48 F who presents to the office today for enlarging pseudoaneurysm at the left upper extremity AV fistula. Patient stated she was infiltrated back in September. She noted since that time a lump has formed. Dialysis center had contacted our office back on October 27. I evaluated the patient the same day due to an enlarging lump. Patient has since been hospitalized at [facility] for a GI bleed. She was hospitalized for 5 days. She noted having dialysis on Friday and via chest catheters at [facility]. Patient was also evaluated by nephrology at [facility]. Patient's health is continuing to decline. She is now on oxygen following a hospitalization in August. She has also had a J tube placed at [facility]. Patient denies pain at the fistula site. Patient dialyzes on , and Sat. ROS General General: Yes fatigue; no weight change, appetite, colon cancer, breast cancer or weakness HEENT HEENT: No difficulty swallowing, eye injury, eye surgery, swollen glands or hoarseness Endo Endocrine: No thyroid disease, diabetes mellitus, thyroid cancer, Hair loss, heat intolerance or cold intolerance Skin Skin: No rash or changing moles Musc Musculoskeletal: Yes arthritis; no back problems, rheumatoid arthritis, gout or joint pain Cardio Cardiovascular: Yes high blood pressure; no murmur, pacemaker, heart disease, atrial fibrillation, heart attack, heart stent, palpitations, shortness of breat with exertion or chest pain Psych Psychiatric: Yes anxiety; no depression or hearing voices Resp Respiratory: Yes shortness of breath, No sleep apnea, No cough, No COPD, No asthma, No emphysema, No wheezing Gastro Gastrointestinal: Yes abdominal pain, Yes nausea or vomiting, No diarrhea, No constipation, No blood in stool, Yes acid reflux, Yes hemorrhoids, Yes ulcers, No gallbladder problem, No black,tarry stools Yahir Hematologic: No blood thinners, No blood disorders, No bleeding, Yes anemia, No blood clots Neuro Neurologic: No weakness Exam Const General: cooperative, comfortable, no acute distress, frail appearing Orientation: alert, awake, oriented x3 HENMT Head: normal to inspection Eyes General: appearance normal, both eyes and all related structures Neck Neck: normal visual inspection Neck mass: No Chest Other: Right chest catheters noted and intact Resp Effort & Inspection: normal respiratory effort Auscultation: clear to auscultation bilaterally Cardio Rate: regular rate Rhythm: regular rhythm Heart Sounds: no murmurs GI Inspection: normal to inspection Palpation: soft Auscultation: normal bowel sounds Skin General: no rashes or lesions noted Neuro General: no focal motor deficits, CN's II-XI intact bilaterally Extrem General: normal to inspection Other: Left upper extremity fistula- moderate sized pseudoaneurysm. Good pulse, bruit and thrill. Psych Appearance: grossly normal Affect: normal affect Assessment & Plan Problems 1. Chronic renal failure, stage 5 N18.5 2. Pseudoaneurysm of arteriovenous dialysis fistula, subsequent encounter T89.986D Plan Dr. Jenkins also evaluated this patient. Dr. Jenkins will plan to perform an urgent left upper extremity fistulogram with stent placement. Procedure details, risks and benefits have been explained. Patient and her father has had the opportunity to ask and have questions answered. Patient verbally understands and agrees with the plan. Dr. Jenkins will plan to perform the procedure on Friday. Patient has had recent lab work at [facility] which will be sent with the fistulogram orders to the excavation laborer. Coding Level of Care Code Off vis,est,level 4 Diagnoses Chronic renal failure, stage 5 N18.5 Pseudoaneurysm of arteriovenous dialysis fistula, subsequent encounter T82.586K Encounter type: subsequent encounter 11/18/18 1536<Electronically signed by Asia Davis PA-C> Date Asia Davis PA-C
--- NOTE | 2018-11-20 06:30 | HP.PCM_ITS ---
Problem List (1) Problem with dialysis access Status: Chronic Qualifiers: Encounter type: subsequent encounter Qualified Code(s): T82.898D - Other specified complication of vascular prosthetic devices, implants and grafts, subsequent encounter History and Physical Date of Admission: 11/20/18 MR#:[id number] Name: JANES NJ Rep #: [id number] : 1970 Provider: Asia almodovar PA-C Age/Sex: 48/F Location: [facility] Status: Signed Intake Vital Signs 11/18/18 Height 4 ft 11 in 11/18/18 Weight: 69 lb 11/18/18 Body Mass Index (BMI) 13.9 11/18/18 Respiratory Rate 18 Intake Visit Reasons: CHECK FISTULA Chief Complaint: fever Carnival Worker Required: No Is patient in pain?: No Allergies Sulfa (Sulfonamide Antibiotics) Allergy (Verified 11/18/18 10:12) Hives NSAIDS (Non-Steroidal Anti-Inflamma Adverse Reaction (Verified 11/18/18 10:12) Other Medications Cyanocobalamin [Vitamin B12] 1,000 mcg IM Q30D 07/03/17 [History Confirmed 11/18/18] Dronabinol [Marinol] 2.5 mg PO 4X/DAY 07/03/17 [History Confirmed 11/18/18] Gabapentin [Neurontin] 300 mg PO BIDCM 07/03/17 [History Confirmed 11/18/18] Levonorgestrel [Mirena] 1 ea VAGINAL UD 07/03/17 [History Confirmed 11/18/18] Prednisone 5 mg PO DAILY 07/03/17 [History Confirmed 11/18/18] Vits [Prenatabs FA ] 1 tab PO DAILY 07/03/17 [History Confirmed 11/18/18] Tizanidine HCl [Zanaflex] 4 mg PO QHS 04/27/18 [History Confirmed 11/18/18] Biotin 10,000 mcg PO DAILY 05/05/18 [History Confirmed 11/18/18] oxycodone-acetaminophen 5 mg-325 mg tablet 1 tab PO Q6H 06/30/18 [History Confirmed 11/18/18] pantoprazole 40 mg tablet,delayed release 40 mg PO BID 07/22/18 [History Confirmed 11/18/18] Hydroxyzine HCl 10 mg PO Q8 PRN 09/22/18 [History Confirmed 11/18/18] Metoprolol Tartrate [Lopressor (beta sonya)] 25 mg PO BID 09/22/18 [History Confirmed 11/18/18] Voriconazole 200 mg PO BID 09/22/18 [History Confirmed 11/18/18] Folic Acid/Vit B Complex and C [Renal Vitamin Tablet] 0.8 mg PO QHS 11/18/18 [History Confirmed 11/18/18] Guaifenesin [Mucinex] 600 mg PO BID 11/18/18 [History Confirmed 11/18/18] sucralfate 1 gram tablet 1 g PO QACHS 11/18/18 [History Confirmed 11/18/18] PFSH Medical History Problem with dialysis access (Chronic) Renal transplant rejection (Acute) GERD (gastroesophageal reflux disease) (Acute) History of cytomegalovirus infection (Acute) history of failed renal transplant (Acute) Sepsis (Acute) Pneumonia, bacterial (Chronic) JENNIFFER (acute kidney injury) (Resolved) CKD (chronic kidney disease) stage 4, GFR 15-29 ml/min (Chronic) History of gastric cancer (Chronic) Essential hypertension (Chronic) Anemia, chronic renal failure (Chronic) History of gastrectomy (Acute) Surgical History History of renal transplant (Chronic) s/p left arteriovenous fistula creation (Acute ~05/06/18) Social History (Updated 11/18/18 @ 15:36 by Asia Davis PA-C) Smoking Status: Never smoker second hand exposure: No alcohol intake: never substance use type: does not use caffeine: No frequency: does not exercise HPI HPI HPI: JANES NJ, is a 48 F who presents to the office today for HPI HPI Surgical H&P: Yes HPI: JANES NJ, is a 48 F who presents to the office today for enlarging pseudoaneurysm at the left upper extremity AV fistula. Patient stated she was infiltrated back in September. She noted since that time a lump has formed. Dialysis center had contacted our office back on October 27. I evaluated the patient the same day due to an enlarging lump. Patient has since been hospitalized at [facility] for a GI bleed. She was hospitalized for 5 days. She noted having dialysis on Friday and via chest catheters at [facility]. Patient was also evaluated by nephrology at [facility]. Patient's health is continuing to decline. She is now on oxygen following a hospitalization in August. She has also had a J tube placed at [facility]. Patient denies pain at the fistula site. Patient dialyzes on , and Sat. ROS General General: Yes fatigue; no weight change, appetite, colon cancer, breast cancer or weakness HEENT HEENT: No difficulty swallowing, eye injury, eye surgery, swollen glands or hoarseness Endo Endocrine: No thyroid disease, diabetes mellitus, thyroid cancer, Hair loss, heat intolerance or cold intolerance Skin Skin: No rash or changing moles Musc Musculoskeletal: Yes arthritis; no back problems, rheumatoid arthritis, gout or joint pain Cardio Cardiovascular: Yes high blood pressure; no murmur, pacemaker, heart disease, atrial fibrillation, heart attack, heart stent, palpitations, shortness of breat with exertion or chest pain Psych Psychiatric: Yes anxiety; no depression or hearing voices Resp Respiratory: Yes shortness of breath, No sleep apnea, No cough, No COPD, No asthma, No emphysema, No wheezing Gastro Gastrointestinal: Yes abdominal pain, Yes nausea or vomiting, No diarrhea, No constipation, No blood in stool, Yes acid reflux, Yes hemorrhoids, Yes ulcers, No gallbladder problem, No black,tarry stools Yahir Hematologic: No blood thinners, No blood disorders, No bleeding, Yes anemia, No blood clots Neuro Neurologic: No weakness Exam Const General: cooperative, comfortable, no acute distress, frail appearing Orientation: alert, awake, oriented x3 HENMT Head: normal to inspection Eyes General: appearance normal, both eyes and all related structures Neck Neck: normal visual inspection Neck mass: No Chest Other: Right chest catheters noted and intact Resp Effort & Inspection: normal respiratory effort Auscultation: clear to auscultation bilaterally Cardio Rate: regular rate Rhythm: regular rhythm Heart Sounds: no murmurs GI Inspection: normal to inspection Palpation: soft Auscultation: normal bowel sounds Skin General: no rashes or lesions noted Neuro General: no focal motor deficits, CN's II-XI intact bilaterally Extrem General: normal to inspection Other: Left upper extremity fistula- moderate sized pseudoaneurysm. Good pulse, bruit and thrill. Psych Appearance: grossly normal Affect: normal affect Assessment & Plan Problems 1. Chronic renal failure, stage 5 N18.5 2. Pseudoaneurysm of arteriovenous dialysis fistula, subsequent encounter T 82.898D Plan Dr. Jenkins also evaluated this patient. Dr. Jenkins will plan to perform an urgent left upper extremity fistulogram with stent placement. Procedure details, risks and benefits have been explained. Patient and her father has had the opportunity to ask and have questions answered. Patient verbally understands and agrees with the plan. Dr. Jenkins will plan to perform the procedure on Friday. Patient has had recent lab work at [facility] which will be sent with the fistulogram orders to the flue dust laborer. Coding Level of Care Code Off vis,est,level 4 Diagnoses Chronic renal failure, stage 5 N18.5 Pseudoaneurysm of arteriovenous dialysis fistula, subsequent encounter T82.595D ??Encounter type: subsequent encounter 11/18/18 1536 <Electronically signed by Asia wren PA-C> Date _ Asia Davis PA-C Cosigner Signature: Date (if applicable) CC: Deb Gregory MD ~ I have re-examined the patient. There are no clinical changes since date of exam.
[2018-11-20 08:30] VITALS: BMI 13.3
--- NOTE | 2018-11-20 10:57 | PCM.OPRPT ---
Problem List (1) Problem with dialysis access Status: Chronic Qualifiers: Encounter type: subsequent encounter Qualified Code(s): T82.898D - Other specified complication of vascular prosthetic devices, implants and grafts, subsequent encounter Report of Operation Date of Procedure: 11/20/18 Pre-Operative Diagnosis: Left upper extremity transposed basilic vein to brachial artery arteriovenous hemodialysis fistula with large pseudoaneurysm Post-Operative Diagnosis: Same Surgery/Procedure Performed:: Left upper extremity fistulogram with 7 x 2-1/2 viabahn stent graft placement Description of Surgical Findings:: Timeout and informed consent was obtained. 48-year-old female taken the special procedures lab placed on the table the left extremity sterilely prepped draped under ultrasound guidance 2% lidocaine was instilled close to the antecubital space antegrade with flow. Local was instilled under ultrasound guidance. Micropuncture needle inserted under ultrasound guidance. Micropuncture wire 6 Marshallese short sheath dilator. Histograms in the left upper arm multiple angles and measurements were performed in attempt to identify the exact source of the large pseudoaneurysm. After multiple measurements I elected to place a 7 x 2-1/[address]abahn stent graft. Way up sheath to a 7 Marshallese sheath. I placed the stent graft injected contrast it appeared that we had the hole covered I deployed the stent graft and seated in place with a 7 x 2 Powerflex balloon. At the completion there was dramatically decreased flow into the pseudoaneurysm but on ultrasound I could still see some flow. At this point however patient is noted to be quite fragile I felt that I had placed the stent graft appropriately I have elected to carefully follow the patient in the office using ultrasound to inspect for continued flow. If need be thrombin injection or repeat fistulogram with additional placement of stent graft will be pursued. She tolerated the procedure well. Fistulogram demonstrates a patent left extremity transposed basilic vein to brachial artery AV fistula. There is a large pseudoaneurysm in the proximal upper arm. Subsequent to the stent graft placement there is markedly diminished flow within the pseudoaneurysm but some blush of flow still seen. Specimen none. Drains none. Blood loss minimal. Martinez Jenkins M.D., F.A.C.S. Type of Anesthesia:: Local
== END 2018-11-20 12:00 | disposition home or self-care (01) ==
PROVIDERS: Family Provider Internal Medicine; PCP Internal Medicine; Referring Provider Surgery; Visit Provider Surgery
DX: T82.898D Other specified complication of vascular prosthetic devices, implants and grafts, subsequent encounter (principal); I13.0 Hypertensive heart and chronic kidney disease with heart failure and stage 1 through stage 4 chronic kidney disease, or unspecified chronic kidney disease; N18.5 Chronic kidney disease, stage 5; R50.9 Fever, unspecified; Z88.2 Allergy status to sulfonamides; Z88.6 Allergy status to analgesic agent; Z94.0 Kidney transplant status; Z85.028 Personal history of other malignant neoplasm of stomach; Z99.2 Dependence on renal dialysis
CPT/HCPCS: 36908; 36903; 76937; Q9967; A4216; C1725; C1769; C1874; C1894

== ENCOUNTER → 2018-12-03 10:15 | Outpatient (CLI) | payer OTHER, MEDICARE, SELFPAY ==
[2018-11-23 08:26] VITALS: BMI 13.3
--- NOTE | 2018-12-03 10:26 | RAD_ITS ---
STUDY: X-RAY CHEST REASON FOR EXAM: Female, 48 years old. Pleural effusion. Stage IV chronic kidney disease and gastric cancer. History of pneumonia 3 months ago. TECHNIQUE: PA and lateral views of the chest. COMPARISON: October 20, 2018. FINDINGS: Again seen are the right jugular central line and right double-lumen jugular catheter unchanged from prior study. There are bilateral pleural effusions, left greater than right with subsegmental atelectasis. This appears unchanged from the prior study. There is no new infiltrate or mass. Normal size heart. Normal mediastinum and jon. Normal visualized pulmonary arteries. There is atherosclerotic calcification of the aortic arch with tortuosity. There is demineralization of the osseous structures. There is degenerative osteoarthritis of the bilateral shoulders. There is no demonstrated abnormality of the visualized soft tissue structures of the upper abdomen. RAD/Chest PA and Lateral IMPRESSION: Bilateral pleural effusions with atelectasis unchanged from the previous study. Electronically Signed: Zelalem Vidal DO at 16:51 EDT Tel [phone], Service support ,
== END ==
PROVIDERS: Family Provider Internal Medicine; PCP Internal Medicine; Referring Provider Nurse Practitioner Acute Care; Visit Provider Nurse Practitioner Acute Care
DX: J90 Pleural effusion, not elsewhere classified (principal)
CPT/HCPCS: 71046

== ENCOUNTER 2019-01-07 10:04 | Emergency (ER) | payer OTHER, MEDICARE, SELFPAY ==
[2018-12-17 10:24] VITALS: BMI 13.3
[2019-01-07 10:06] VITALS: BP 135/86; PULSE 113; RESP 18; TEMP 36.8; O2SAT 89; BMI 13.7
--- NOTE | 2019-01-07 10:33 | ED.DCSUM_ITS ---
History of Present Illness Chief Complaint: General Illness Informant: Patient Onset: Today Narrative: Patient was sent to the ER after her dialysis treatment after receiving too much heparin during the treatment, apparently on accident. Prior to the patient's arrival we were told by staff at the dialysis center that the patient was supposed to receive 1000 units and instead she received 10,000 units. She is asymptomatic. She has been feeling well recently. She has chronic lung disease for which she is on home oxygen and that has been stable recently. She brings paperwork that has medications on it, it states she receives 1600 units of heparin postdialysis in each of 2 ports on her catheter. Patient has no idea at what time she was given this heparin this morning. - Past Medical History (1) ESRD on dialysis Status: Chronic (2) GERD (gastroesophageal reflux disease) Status: Chronic (3) History of cytomegalovirus infection Status: Chronic (4) Pleural effusion Status: Chronic (5) Renal transplant rejection Status: Chronic (6) Anemia, chronic renal failure Status: Chronic (7) Essential hypertension Status: Chronic (8) History of gastric cancer Status: Chronic Past Medical History - Allergies and Home Meds Allergies/Adverse Reactions: Allergies Sulfa (Sulfonamide Antibiotics) Allergy (Verified 12/17/18 10:23) Hives NSAIDS (Non-Steroidal Anti-Inflamma Adverse Reaction (Verified 12/17/18 10:23) Other Primary Care Physician: Deb Gregory MD [Primary Care Provider] - Surgical History: - - Failed kidney transplant from adoptive mother, AV fistula Smoking Status: Former smoker - Family History Maternal Family History: Reports: No pertinent history - Patient adopted Review of Systems General: Denies: Chills, Fever, Sweats Eyes: Denies: Visual changes - bilaterally, Diplopia ENT: Denies: Rhinorrhea, Sore throat Cardiovascular: Denies: Chest pain, Palpitations Respiratory: Denies: Dyspnea, Cough, Dyspnea on exertion Gastrointestinal: Denies: Abdominal pain, Nausea, Vomiting, Diarrhea, Melena, Hematochezia Genitourinary: Denies: Dysuria, Hematuria, Frequency Musculoskeletal: Denies: Back pain, Extremity Pain Skin: Denies: Rash, Wounds Neurological: Denies: Headache, Weakness, Numbness Physical Exam Vital Signs/Narrative: Vital Signs Temp Pulse Resp BP Pulse Ox 01/07/19 10:06 98.3 F 113 H 18 135/86 H 89 Inital Vital Signs reviewed: Yes General: Well nourished, Well developed, No Acute Distress Head: Normocephalic, Atraumatic Eyes: Perrl, EOMI ENT: Moist mucous membranes, No rhinorrhea Neck: Supple, Nontender Cardiovascular: Regular rate, Regular rhythm, No murmurs, Tachycardia - mild Respiratory: No distress, CTA bilaterally, Chest nontender Abdomen: Soft, Nontender, Nondistended, Normal bowel sounds, - - J-tube c ontaining clear liquid. It was gently aspirated by nursing with a syringe, some coffee came out which the patient had just drank, no blood. Back: Nontender, Normal Inspection Extremities: Nontender, No edema Skin: Normal color, No rash Neurological: Alert, Oriented x3, Cranial nerves II-XII grossly intact, Normal Strength, Normal Sensation Psychological: Normal affect, Normal Mood Diagnostic/Tx/Re-eval Laboratory Tests 01/07/19 01/07/19 01/07/19 Range/Units 10:55 10:55 10:55 WBC 16.7 H (4.4-11.0) K/mm3 RBC 3.13 L (4.2-5.4) M/mm3 Hgb 10.3 L (12.0-15.0) g/dL Hct 32.1 L (37-47) % MCV 102.6 H (81-99) fL MCH 32.9 H (27.0-32.0) pg MCHC 32.1 (32-36) g/dL RDW Std Deviation 59.8 H (35.1-43.9) fl RDW Coeff of Fabrice 15.9 H (11.6-14.6) % Plt Count 161 (150-450) K/mm3 MPV 11.4 (6.2-12.0) fl APTT 194.7 H* (24.1-36.2) Seconds Sodium 139 (136-145) mmol/L Potassium 4.0 (3.5-5.1) mmol/L Chloride 100 (98-107) mmol/L Carbon Dioxide 33.0 H (21.0-32.0) mmol/L Anion Gap 6 (5-15) BUN 22 H (7-18) mg/dL Creatinine 2.00 H (0.55-1.02) mg/dL Estim Creat Clear Calc 16.91 ml/min Est GFR (MDRD) Af Amer 34 L (>60) mL/min Est GFR (MDRD) Non-Af 28 L (>60) mL/min BUN/Creatinine Ratio 11.0 (10-20) RATIO Glucose 98 (74-106) mg/dL Calcium 8.4 L (8.5-10.1) mg/dL - Medical Decision Making Patient was monitored in the emergency department for 3-1/2 hours and had no bleeding or symptoms. According to our heparin protocol, with her PTT at 194, she would need to be monitored for 3 hours, which we did here in the emergency department post blood draw. She had no bleeding in that amount of time. According to protocol, that is the amount of time that the patient would need in order to be down to a therapeutic level. She was given appropriate discharge instructions, at this time no protamine is indicated, given reasons to return and she is comfortable with that plan. I attempted to discuss with Dr. Mcdaniel, but she did not call back while the patient was here. ED Disposition - Plan for ED Patient: Disposition: Home or Assisted Living Diagnosis: Heparin overdose Instructions: Blank Diagnosis Form Referrals: Deb Gregory MD [Primary Care Provider] - As Needed Additional Instructions: If you have any non-minor bleeding, return to the emergency department, especially if it is today. Otherwise, you may get the repeat blood test that was ordered for you on 01/09, and follow-up as usual at your next dialysis session.
[2019-01-07 11:01] LABS: Hematocrit 32.1 % (37-47); Hemoglobin 10.3 g/dL (12.0-15.0); Mean Corp Hgb Conc 32.1 g/dL (32-36); Mean Corpuscular Hgb 32.9 pg (27.0-32.0); Mean Corpuscular Volume 102.6 fL (81-99); Mean Platelet Vol. 11.4 fl (6.2-12.0); Platelet Count 161 K/mm3 (150-450); RBC Distribution Width CV 15.9 % (11.6-14.6); RBC Distribution Width SD 59.8 fl (35.1-43.9); Red Blood Count 3.13 M/mm3 (4.2-5.4); White Blood Count 16.7 K/mm3 (4.4-11.0)
[2019-01-07 11:17] LABS: Anion Gap 6 (5-15); BUN 22 mg/dL (7-18); Calcium,Total 8.4 mg/dL (8.5-10.1); Chloride 100 mmol/L (98-107); EST Glomerular Filtration Rate 28 mL/min (>60); Est Glom Filt Rate - Afr Amer 34 mL/min (>60); Estimated Creatinine Clearance 16.91 ml/min; Glucose 98 mg/dL (74-106); Sodium Level 139 mmol/L (136-145)
[2019-01-07 11:19] LABS: Partial Thromboplast Time 194.7 Seconds (24.1-36.2)
--- NOTE | 2019-01-07 11:22 | ED.RN ---
DR CALHOUN NOTIFIED ZOV=[phone]. NNO
[2019-01-07 12:36] VITALS: BP 130/82; PULSE 98; RESP 16; O2SAT 95
[2019-01-07 14:01] VITALS: BP 130/82; PULSE 98; RESP 16; O2SAT 95
== END 2019-01-07 14:01 | disposition home or self-care (01) ==
PROVIDERS: Emergency Provider Emergency Medicine; Family Provider Internal Medicine; PCP Internal Medicine
DX: T45.511A Poisoning by anticoagulants, accidental (unintentional), initial encounter (principal); Y92.538 Other ambulatory health services establishments as the place of occurrence of the external cause; I12.0 Hypertensive chronic kidney disease with stage 5 chronic kidney disease or end stage renal disease; N18.6 End stage renal disease; D63.1 Anemia in chronic kidney disease; J90 Pleural effusion, not elsewhere classified; Z99.2 Dependence on renal dialysis; Z99.81 Dependence on supplemental oxygen; K21.9 Gastro-esophageal reflux disease without esophagitis; Z94.0 Kidney transplant status; Z79.899 Other long term (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 therapy; Z88.2 Allergy status to sulfonamides; Z88.6 Allergy status to analgesic agent; Z85.028 Personal history of other malignant neoplasm of stomach; Z87.891 Personal history of nicotine dependence
CPT/HCPCS: 80048; 85027; 85730; 99282

== ENCOUNTER → 2019-03-09 10:52 | Outpatient (CLI) | payer OTHER, MEDICARE, SELFPAY ==
[2019-03-09 11:17] VITALS: PULSE 102; PULSE 104; PULSE 106; PULSE 89; PULSE 91; PULSE 95; PULSE 96; O2SAT 87; O2SAT 91; O2SAT 92; O2SAT 93; O2SAT 94; O2SAT 95; O2SAT 98
--- NOTE | 2019-03-09 11:22 | CPS ---
PATIENT PLACED ON ROOM AIR PRIOR TO TESTING. SPO2 FELL TO 87% ON ROOM AIR PRIOR TO BEGINNING WALK. EXERCISE PORTION OF TEST BEGAN WITH PT ON 2LPM, REMAINED ON 2LPM FOR DURATION OF TESTING.
--- NOTE | 2019-03-10 09:58 | WT_ITS ---
PSN 6 Minute Walk Test - 6 Minute Walk Test 6 Minute Walk Test: 6 Minute Walk Test PSN:6-Minute Walk Test Start: 03/09/19 11:16 Freq: Status: Active Protocol: [id number].6MINW Document 03/09/19 11:17 [facility] (Rec: 03/09/19 11:21 [facility] [id number]) 6 Minute Walk Test Date Performed 03/09/19 Time Performed 11:00 Height 4 ft 11.5 in Weight: 65 lb Weight in Pounds 65.[address]: Laurel Oh Assistive device used: None Pre-test Oxygen Delivery Method Room Air Pulse Ox (%) 87 Pulse Rate (60-100 beats/min) 89 Dyspnea Rosenda Scale (0-10) 4 Reported Symptoms Increased Work of Breathing 1st minute Oxygen Flow Rate (L/min) (L/min) 2 Oxygen Delivery Method Nasal Cannula Pulse Ox (%) 95 Pulse Rate (60-100 beats/min) 95 Dyspnea Rosenda Scale (0-10) 4 Number of Rests Taken 0 Reported Symptoms Increased Work of Breathing 2nd minute Oxygen Flow Rate (L/min) (L/min) 2 Oxygen Delivery Method Nasal Cannula Pulse Ox (%) 94 Pulse Rate (60-100 beats/min) 95 Dyspnea Rosenda Scale (0-10) 5 Number of Rests Taken 0 Reported Symptoms Increased Work of Breathing 3rd minute Oxygen Flow Rate (L/min) (L/min) 2 Oxygen Delivery Method Nasal Cannula Pulse Ox (%) 95 Pulse Rate (60-100 beats/min) 96 Dyspnea Rosenda Scale (0-10) 5 Number of Rests Taken 0 Reported Symptoms Increased Work of Breathing 4th minute Oxygen Flow Rate (L/min) (L/min) 2 Oxygen Delivery Method Nasal Cannula Pulse Ox (%) 92 Pulse Rate (60-100 beats/min) 102 H Dyspnea Rosenda Scale (0-10) 5 Number of Rests Taken 0 Reported Symptoms Increased Work of Breathing 5th minute Oxygen Flow Rate (L/min) (L/min) 2 Oxygen Delivery Method Nasal Cannula Pulse Ox (%) 93 Pulse Rate (60-100 beats/min) 104 H Dyspnea Rosenda Scale (0-10) 5 Number of Rests Taken 0 Reported Symptoms Increased Work of Breathing 6th minute Oxygen Flow Rate (L/min) (L/min) 2 Oxygen Delivery Method Nasal Cannula Pulse Ox (%) 91 Pulse Rate (60-100 beats/min) 106 H Dyspnea Rosenda Scale (0-10) 5 Number of Rests Taken 0 Reported Symptoms Increased Work of Breathing Post-test Oxygen Flow Rate (L/min) (L/min) 2 Oxygen Delivery Method Nasal Cannula Pulse Ox (%) 98 Pulse Rate (60-100 beats/min) 91 Dyspnea Rosenda Scale (0-10) 4 Number of Rests Taken 0 Reported Symptoms Increased Work of Breathing Full Laps Walked 10 Partial Lap, Number of Tiles Walked 14 Total Distance Walked (ft) 604 - Interpretation Interpretation: The patient ambulated 604 feet over the course of 6 minutes without assistive devices or breaks. Pretesting oxygen saturation was noted to be 87% on room air. 2 L of supplemental oxygen was applied and the patient was able to complete the remainder of the test while maintaining oxygen saturations at or above 88%. There was evidence of impaired walk distance, all of which would be in keeping with a respiratory limitation to exercise tolerance. - Recommendations Recommendations: 2 L/min of supplemental oxygen should be utilized both at rest and with exertion.
== END ==
PROVIDERS: Family Provider Internal Medicine; PCP Internal Medicine; Referring Provider Nurse Practitioner Acute Care; Visit Provider Nurse Practitioner Acute Care
DX: R06.00 Dyspnea, unspecified (principal)
CPT/HCPCS: 94618

== ENCOUNTER → 2019-04-29 14:15 | Outpatient (CLI) | payer OTHER, MEDICARE, SELFPAY ==
[2019-04-29 11:08] VITALS: BMI 13.1
--- NOTE | 2019-04-29 14:17 | RAD_ITS ---
STUDY: X-RAY CHEST REASON FOR EXAM: Female, 48 years old. Respiratory failure. History of pleural effusion. TECHNIQUE: PA and lateral views of the chest. COMPARISON: December 03, 2018. FINDINGS: There is absence of the right jugular central venous catheter is present on the prior study. There is persistent bilateral pleural effusions, left greater than right with associated atelectasis. The lungs appear otherwise clear. Normal size heart. Normal mediastinum and jon. Normal visualized pulmonary arteries. Normal visualized aortic arch and descending thoracic aorta. No visualized osseous changes. Again seen is dextroscoliosis and degenerative changes of the thoracic spine. There is no demonstrated abnormality of the visualized soft tissue structures of the upper abdomen. RAD/Chest PA and Lateral IMPRESSION: 1. Stable bilateral pleural effusions and atelectasis. 2. Interval removal of right jugular central venous catheter is seen on the previous study. 3. No other interval change. Electronically Signed: Zelalem Vidal DO at 19:19 EST Tel [phone], Service support ,
== END ==
PROVIDERS: Family Provider Internal Medicine; PCP Internal Medicine; Referring Provider Internal Medicine Critical Care Medicine; Visit Provider Internal Medicine Critical Care Medicine
DX: J90 Pleural effusion, not elsewhere classified (principal)
CPT/HCPCS: 71046

== ENCOUNTER → 2019-05-04 10:35 | Outpatient (CLI) | payer OTHER, MEDICARE, SELFPAY ==
[2019-04-29 11:08] VITALS: BMI 13.1
--- NOTE | 2019-05-04 | FLU_PTH ---
PATIENT: JANES [place] LOC: [facility]#:[id number] AGE/SX: 54/F ROOM: RE05/04/[address]: Dr. Aquiles Vann DO : 1970 BED: DIS: SPEC #: [id number] RECD: 05/04/19 14:10 STATUS: KRISTIN JAMILA #: [id number] SERGO: 05/04/19 00:[address]: Aquiles Vann DEPT: CYTOLOGY RECD BY: Michoacano Chadwick ENTERED: 05/05/19 11:45 SP TYPE: Fluid OTHR DR: Dr. Deb Gregory MD Tissues: THORACIC FLUID Procedures: Special Stain Group II Surgery Specimen Level IV Cytospin Fluid HEADER OPERATION: Thoracentesis PRE-OP DIAGNOSIS: Pleural effusion TISSUE SUBMITTED: Thoracentesis fluid for cytology DIAGNOSIS CYTOLOGY Thoracentesis fluid for cytology (cytospin and cell block): Negative for malignant cells. TANVIR:jorge 05/06/19 CYTOLOGY STUDY Slides are reviewed. CYTOLOGY GROSS Received is 110 ml of yellow cloudy fluid labeled with the patient's name and and designated per the requisition as thoracentesis. Submitted for cytology preparation including cell block. /CC:cc 05/05/19 TC:5 CPT: 43976, 87812
--- NOTE | 2019-05-04 10:36 | US_ITS ---
PROCEDURE: ULTRASOUND GUIDED THORACENTESIS. DATE: May 04, 2019. INDICATION: Female, 48 years old. Right pleural effusion. PHYSICIAN: Vikas Haney M.D. PROCEDURE: The risks, benefits, and alternatives to the procedure were explained to the patient. The specific risks of bleeding, infection, and pneumothorax requiring chest tube insertion were discussed and accepted. Written informed consent was obtained. Ultrasonographic evaluation of the right lower pleural space was carried out. An adequate pocket was identified. The patient was placed in the sitting, upright position. The overlying skin was prepped and draped in sterile fashion. 1% lidocaine was administered subcutaneously for local anesthesia. Under ultrasound guidance, a 5 Argentine thoracentesis needle/catheter system was advanced into the right posterior lower pleural fluid collection. Approximately 770 mL of marla-colored fluid was drained. The catheter was removed, and a sterile dressing was applied. A specimen was collected and sent to the laboratory for analysis, as requested by the referring clinician. The patient tolerated the procedure well. A chest x-ray was ordered. The left pleural space was examined by ultrasound. There is a minimal left pleural effusion with underlying consolidation and/or infiltration. US/Thoracentesis W US IMPRESSION: Ultrasound-guided right thoracentesis. Electronically Signed: Vikas Haney, at 14:32 EST , Service support ,
[2019-05-04 11:19] LABS: International Normalized Ratio 1.1; Prothrombin Time (Protime)PT. 14.1 SECONDS (11.7-14.9)
[2019-05-04 11:20] LABS: Hematocrit 42.7 % (37-47); Hemoglobin 12.5 g/dL (12.0-15.0); Mean Corp Hgb Conc 29.3 g/dL (32-36); Mean Corpuscular Hgb 30.4 pg (27.0-32.0); Mean Corpuscular Volume 103.9 fL (81-99); Mean Platelet Vol. 11.7 fl (6.2-12.0); POSITIVE MORPHOLOGY YES; Platelet Count 114 K/mm3 (150-450); RBC Distribution Width CV 16.6 % (11.6-14.6); RBC Distribution Width SD 65.1 fl (35.1-43.9); Red Blood Count 4.11 M/mm3 (4.2-5.4); Scan Indicated on CBC? Y/N YES- FLAGS NOTED; White Blood Count 7.2 K/mm3 (4.4-11.0)
[2019-05-04 11:28] LABS: ALB/GLOB Ratio 0.5 RATIO (0.9-2.4); Globulin 5.3 g/dL (2.2-4.2); LDH 232 U/L (84-246); Protein, Total 7.8 g/dL (6.4-8.2)
[2019-05-04 11:43] LABS: Differential Comment SCANNED
--- NOTE | 2019-05-04 13:05 | RAD_ITS ---
STUDY: X-RAY CHEST REASON FOR EXAM: Female, 48 years old. Status post right thoracentesis, follow-up TECHNIQUE: AP COMPARISON: 04/29/2019 FINDINGS: Decreased right pleural effusion. No demonstrated pneumothorax. Stable moderate left pleural effusion with adjacent parenchymal opacity. Normal size heart. Normal mediastinum and jon. Normal visualized pulmonary arteries. Normal visualized aortic arch and descending thoracic aorta. There is a dextroscoliosis of the thoracic spine. Normal visualized ribs, clavicles, and shoulders. G-tube noted. There are surgical clips of left upper abdomen. Surgical clips and vascular stent in the left upper arm noted. RAD/Chest Insp/Exp 2 View IMPRESSION: 1. Decreased right pleural effusion. No pneumothorax. 2. Stable left pleural effusion with underlying atelectasis or infiltrate. Electronically Signed: Shan Moran MD (Brooks) at 17:35 EST , Service support ,
[2019-05-04 13:44] VITALS: BP 147/82; BP 154/89; BP 155/79; BP 158/94; PULSE 64; PULSE 70; PULSE 71; PULSE 72; RESP 16; RESP 18; O2SAT 100
[2019-05-04 14:11] LABS: Cytology, Body Fluid / CSF SEE PATHOLOGY REPORT
[2019-05-04 14:38] LABS: Body Fluid Mononuclear WBC # 0.119 10^3/uL; Body Fluid Mononuclear WBC % 79.8 %; Body Fluid Polynuclear WBC % 20.2 %; Body Fluid Total Cells Counted 0.214 10^3/ul; White Blood Count/Body Fluid 0.149 10^3/uL
[2019-05-04 14:47] LABS: Appearance/Body Fluid SL CLDY; Auto B Fluid Analyzer BKGD Ct COUNTS W/IN LIMITS (W/IN LIMITS); Color/Body Fluid LT YEL; Source- Body Fluid THORACENTESIS
[2019-05-04 14:48] LABS: Red Cell Count/Body Fluid 8 /mm3
[2019-05-04 14:55] LABS: LDH,Body Fluid 88 Units/l (Not Establ.); Protein, Body Fluid 2.9 g/dL (Not Establ.)
[2019-05-04 15:07] LABS: Body Fluid QC Type(s) BF3Q,BF4Q; Lymphocytes 11 %; Macrophages 63 %; Mesothelial Cells 1 %; Monocytes 17 %; Neutrophil (Segs) 8 %
[2019-05-05 10:03] LABS: Pathologist Comment/Body Fluid Reviewed
== END ==
PROVIDERS: Family Provider Internal Medicine; PCP Internal Medicine; Referring Provider Internal Medicine Critical Care Medicine; Visit Provider Internal Medicine Critical Care Medicine
DX: J90 Pleural effusion, not elsewhere classified (principal); J96.11 Chronic respiratory failure with hypoxia; N18.6 End stage renal disease; Z99.2 Dependence on renal dialysis
CPT/HCPCS: 32555; 36415; 71046; 83615; 84156; 84157; 85027; 85610; 87070; 87075; 87205; 88108; 88305; 88313; 89050

== ENCOUNTER 2019-05-09 10:14 | Inpatient (IN) | payer OTHER, MEDICARE, SELFPAY ==
[2019-04-29 11:08] VITALS: BMI 13.1
[2019-05-09] VITALS (10 sets, daily range): BP systolic 144–158; BP diastolic 80–97; PULSE 60–75; RESP 8–18; TEMP 36.3–37.1; O2SAT 97–100; BMI 13.4; BMI 12.2
--- NOTE | 2019-05-09 10:40 | EKG12_ITS ---
Test Reason : GENERAL ILLNESS Blood Pressure : / mmHG Vent. Rate : 067 BPM Atrial Rate : 067 BPM P-R Int : 138 ms QRS Dur : 080 ms QT Int : 470 ms P-R-T Axes : 074 067 257 degrees QTc Int : 496 ms Normal sinus rhythm Nonspecific ST and T wave abnormality Abnormal ECG Confirmed by SEVEN CASTRO, RAMIREZ ([id number]), acquisition editor HUANG BRENNAN ([id number]) on 05/13/2019 8:47:25 AM Referred By: Magaly Mcdaniel Confirmed By:RAMIREZ AMEZCUA MD
--- NOTE | 2019-05-09 10:52 | RAD_ITS ---
STUDY: X-RAY CHEST REASON FOR EXAM: Female, 48 years old. DYSPNEA, CHILLS -- PT WAS UNRESPONSIVE AT HOME, ALERT NOW -- HX OF ARRYTHMIA, HTN, STOMACH CANCER TECHNIQUE: Single frontal view of the chest. COMPARISON: May 04, 2019. FINDINGS: There is a persistent moderate size left pleural effusion. There is a hazy opacity at the right lung base suggestive of a right pleural effusion. Normal size heart. Normal mediastinum and jon. Normal visualized pulmonary arteries. Normal visualized aortic arch and descending thoracic aorta. Normal visualized thoracic spine. Normal visualized ribs, clavicles, and shoulders. There is a vascular stent and surgical clips within the left upper extremity. There is no demonstrated abnormality of the visualized soft tissue structures of the upper abdomen. RAD/Chest 1 View (Portable) IMPRESSION: Stable moderate-sized left pleural effusion, cannot exclude associated left basilar atelectasis and/or pneumonia. Possible small right pleural effusion. Electronically Signed: Danielle Mike MD at 11:09 EST Tel , Service support ,
[2019-05-09] MEDS: 0.9% Normal Saline 1,000 ML 150 ML IV (11:29)
[2019-05-09 11:35] LABS: Absolute Lymphocyte Count 0.37 X10^3/uL (0.83-4.51); Basophil# 0.03 X10^3/uL; Basophil% 0.4 % (0-1); Eosinophil# 0.03 X10^3/uL; Eosinophils% 0.4 % (0-5); Hematocrit 42.9 % (37-47); Hemoglobin 12.7 g/dL (12.0-15.0); Lymphocyte # 0.37 X10^3/ul (4.0); Lymphocyte % 4.7 % (19-41); Mean Corp Hgb Conc 29.6 g/dL (32-36); Mean Corpuscular Hgb 30.9 pg (27.0-32.0); Mean Corpuscular Volume 104.4 fL (81-99); Mean Platelet Vol. 11.4 fl (6.2-12.0); Monocyte# 0.44 X10^3/uL; Monocyte% 5.5 % (0-10); NRBC Flagged by Analyzer 0 % (0-5); Neutrophil # 7.01 X10^3/uL (2.7-7.7); Neutrophil % 88.4 % (47-70); POSITIVE DIFFERENTIAL YES; POSITIVE MORPHOLOGY YES; Platelet Count 126 K/mm3 (150-450); RBC Distribution Width CV 16.8 % (11.6-14.6); RBC Distribution Width SD 65.2 fl (35.1-43.9); Red Blood Count 4.11 M/mm3 (4.2-5.4); White Blood Count 7.9 K/mm3 (4.4-11.0)
[2019-05-09 11:36] LABS: Differential Indicated SCAN CRITERIA MET
[2019-05-09 11:49] LABS: ALB/GLOB Ratio 0.5 RATIO (0.9-2.4); AST(SGOT) 32 U/L (15-37); Alanine Aminotransfer ALT/SGPT 21 U/L (13-56); Albumin, Serum 2.6 g/dL (3.2-5.0); Alkaline Phosphatase 158 U/L (45-117); Anion Gap 5 (5-15); BUN 29 mg/dL (7-18); BUN/Creat Ratio 7.3 RATIO (10-20); Calcium,Total 8.3 mg/dL (8.5-10.1); Chloride 103 mmol/L (98-107); Creatinine, Serum 3.96 mg/dL (0.55-1.02); EST Glomerular Filtration Rate 13 mL/min (>60); Est Glom Filt Rate - Afr Amer 16 mL/min (>60); Estimated Creatinine Clearance 8.54 ml/min; Globulin 5.4 g/dL (2.2-4.2); Glucose 85 mg/dL (74-106); Potassium 5.2 mmol/L (3.5-5.1); Sodium Level 139 mmol/L (136-145)
[2019-05-09 11:54] LABS: Differential Comment SCANNED
--- NOTE | 2019-05-09 12:50 | ED.VISSUMM ---
- ER Visit Summary Date of Service: 05/09/19 Chief Complaint: [Weakness and sweats] History of Present Illness: The patient is a 48 F [resents the emergency department complaint of not feeling well for the last 2 days. Patient has had some sweats and nausea. Patient states that she was dialyzed yesterday and afterwards that taken too much fluid also that the give her fluid back. Patient this morning was just feeling weak and states that she was sweating throughout the night. She denies any fevers. Denies any abdominal pain. Patient does have a G-tube that she gives herself tube feeds through but has not used in about 3 weeks. Patient is very cachectic and has very low weight and weighs just over 60 pounds. Patient has history of hypertension and history of gastrectomy and end-stage renal disease. 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 She denies any chest pain.] Physical Examination: [HEENT-PERRLA, EOMI. Cranial nerves II through XII grossly intact. TMs clear. Mucous membranes moist. No adenopathy. Cardiovascular-regular rate and rhythm without murmur or ectopy Lungs-clear to auscultation, chest wall stable without crepitus or subcu emphysema Abdomen-normoactive bowel sounds, soft, nontender, no rebound or rigidity, no peritoneal signs. Patient has PEG tube in place. Extremities-intact ?4, normal range of motion, normal pulses, atraumatic] Test Results: [CBC with differential obtained showing a 7.9, hemoglobin 12.7, hematocrit 43, platelets 126. Chemistries unremarkable. BUN was 29 and creatinine 3.96. Albumin was 2.16. Troponin is less than 0.015. Chest x-ray showed a left pleural effusion.] Emergency Department Course and Treatment: [Patient had IV line established. Blood cultures ordered.] Treatment Plan: [Admit for observation has etiology of her sweats is unclear at this time. Will need to rule out bacteremia although she is not been febrile and she has a normal white blood cell count. No obvious source of infection noted.] Disposition: [Admit] Impression: Weakness-etiology uncertain] This note was generated with [employer] software. It may contain incorrect words, spelling, and punctuation that were not noted in review of the chart prior to signing ED Disposition - Plan for ED Patient: Referrals: Deb Gregory MD [Primary Care Provider] -
--- NOTE | 2019-05-09 13:48 | NURSING ---
320 dee failure to thrive
[2019-05-09 15:22] LABS: LDH 342 U/L (84-246); Lipase 28 U/L (73-393)
[2019-05-09 15:56] LABS: Internal QC Validated? YES +Cl - CLEAR BKGD; Pregnancy, Serum, hCG Quali. NEGATIVE Negative
[2019-05-09] MEDS: Gabapentin 300 MG Capsule PO (16:29)
--- NOTE | 2019-05-09 17:16 | HP.PCM_ITS ---
Problem List (1) Failure to thrive Status: Acute History of Present Illness Date of Admission: 05/09/19 Chief Complaint: Unable to use J-tube Ms Valverde is a 48 year old F who presented to the ED on 05/09 06/20 not feeling well in the last 48 hrs. she has had sweats and nausea. She also reports that she was dialyzed yesterday and became hypotensive and fluid had to be replaced. She states that she was sweating a lot through the night and has had this issue on a off over the last month but it was more pronounced last night. She has been having issues with tolerating her TF. She typically runs these at night and then eats what she can during the day but over the last month she has had nausea and discomfort while running her TF she she has not been running her TF much over the last month and has been eating what she can. This j-tube was placed this past summer as she was not tolerating PO intake then much either. She is currently about 60 lbs and states she usually weighs about 70 lbs and was never over 90 lbs since her gastrectomy. She has tried to get a hold of her Drs at [facility] but states no one has returned her calls. VSS in the ED. Past Medical History Past Medical History (Chronic Problems): Chronic Problems (Last Reviewed 04/29/19 @ 13:15 by Ruby Watkins) ESRD on dialysis (Chronic) Pleural effusion (Chronic) Chronic renal failure, stage 5 (Chronic) Problem with dialysis access (Chronic) Renal transplant rejection (Chronic) GERD (gastroesophageal reflux disease) (Chronic) History of cytomegalovirus infection (Chronic) Pneumonia, bacterial (Chronic) CKD (chronic kidney disease) stage 4, GFR 15-29 ml/min (Chronic) History of gastric cancer (Chronic) Essential hypertension (Chronic) Anemia, chronic renal failure (Chronic) Medical History: Medical History (Last Reviewed 05/09/19 @ 17:18 by Magaly Mcdaniel DO) History of gastrectomy (Acute) Z90.3 Problem with dialysis access (Chronic) T82.898A Renal transplant rejection (Chronic) T86.11 GERD (gastroesophageal reflux disease) (Chronic) K21.9 History of cytomegalovirus infection (Chronic) Z86.19 history of failed renal transplant (Acute) Sepsis (Acute) A41.9 Pneumonia, bacterial (Chronic) J15.9 JENNIFFER (acute kidney injury) (Resolved) N17.9 CKD (chronic kidney disease) stage 4, GFR 15-29 ml/min (Chronic) N18.4 History of gastric cancer (Chronic) Z85.028 Essential hypertension (Chronic) I10 Anemia, chronic renal failure (Chronic) N18.9, D63.1 Allergies Sulfa (Sulfonamide Antibiotics) Allergy (Verified 05/09/19 10:22) Hives NSAIDS (Non-Steroidal Anti-Inflamma Adverse Reaction (Verified 05/09/19 10:22) Other Home Medications: Ambulatory Orders Medication Instructions Recorded Cyanocobalamin [Vitamin B12] 1,000 mcg IM Q30D 07/03/17 Dronabinol [Marinol] 2.5 mg PO 4X/DAY 07/03/17 Gabapentin [Neurontin] 300 mg PO BIDCM 07/03/17 Levonorgestrel [Mirena] 1 ea VAGINAL UD 07/03/17 Vits [Prenatabs FA ] 1 tab PO DAILY 07/03/17 Tizanidine HCl [Zanaflex] 4 mg PO QHS 04/27/18 Biotin 10,000 mcg PO DAILY 05/05/18 oxycodone-acetaminophen 5 mg-325 1 tab PO Q6H 06/30/18 mg tablet pantoprazole 40 mg tablet,delayed 40 mg PO BID 07/22/18 release Hydroxyzine HCl 10 mg PO Q8 PRN 09/22/18 Metoprolol Tartrate [Lopressor 25 mg PO BID 09/22/18 (beta lucas)] Folic Acid/Vit B Complex and C 0.8 mg PO QHS 11/18/18 [Renal Vitamin Tablet] sucralfate 1 gram tablet 1 g PO QACHS 11/18/18 Prednisone 5 mg PO DAILY 05/09/19 Surgical History: Surgical History (Last Reviewed 05/09/19 @ 17:18 by Magaly Mcdaniel DO) s/p left arteriovenous fistula creation (Acute) Onset Date: ~05/06/18 History of renal transplant (Resolved) Z94.0 Surgical History: - - Failed kidney transplant from adoptive mother, AV fistula Smoking Status: Smoker, status unknown Alcohol: None Drugs: None - *Family History Maternal History Items: No pertinent history - Patient adopted Review of Systems Constitutional: Reports: Anorexia, Chills, Night Sweats, Malaise, Weakness, Weight Change - down about 5 lbs, Fatigue. Denies: Fever Eyes: Denies: Blurred vision, Cataracts, Conjunctivae Inflammation, Double vision, Drainage, Eyelid Inflammation, Pain, Redness, Vision Change HEENT: Denies: Difficulty Hearing, Difficulty Swallowing, Dysphasia, Ear Pain, Eye Pain, Hard of Hearing, Head Aches, Hearing Changes, Nasal bleeding, Nasal Congestion, Post Nasal Drip, Sinus Congestion, Sinus Drainage, Sore Throat, Visual Changes Cardiovascular: Denies: Chest Pain, Claudication, Chest Pressure, Chest Tightness, Edema, Heaviness, Light Headedness, Orthopnea, Palpitations, Paroxysmal Noc. Dyspnea, Syncope Respiratory: Denies: Cough, Hemoptysis, Pleuritic Pain, Shortness of Breath, Shortness of breath at rest, Shortness of breath upon exertion, Sputum pro duction, Wheezing Gastrointestinal: Reports: Abdominal Pain, Nausea. Denies: Constipation, Diarrhea, Dyspepsia, Hematemesis, Hematochezia, Melena, Vomiting Genitourinary: Reports: - - makes very little urine. Denies: Dysuria, Frequency, Hematuria, Hesitancy, Incontinence, Nocturia, Retention, Urgency Gynecological: Denies: Breast symptoms Musculoskeletal: Denies: Joint Pain, Joint stiffness, Joint swelling Skin: Reports: Dryness. Denies: Jaundice, Lesions, Pruritis, Rash, Skin Changes, Wounds Neurological: Denies: Balance problems, Blurred vision, Double vision, Change in Speech, Slurred speech, Confusion, Difficulty swallowing, Focal weakness, Headaches, Incoordination, Numbness, Tingling, Tremor, Seizures Psychiatric: Denies: Anxiety Endocrine: Reports: Hx of Irradiation. Denies: Change in Body Habitus, Heat/ Cold Intolerance, Polydipsia, Polyuria, Hx of Thyroiditis Hematologic/ Lymphatic: Denies: Adenopathy, Anemia, Easy Bruising, Easy Bleeding VTE Information - Inpt Only VTE Present on Admission: No VTE Mechan Device Prophylaxis: SCD's VTE Pharm Prophylaxis ordered?: Yes Patient Problems: Active and Suspected Problems (Last Reviewed 04/29/19 @ 13:15 by Ruby Watkins) Failure to thrive (Acute) - Physical Exam Vitals/I&O's: Vital Signs Temp Pulse Resp BP Pulse Ox 98.7 F 71 16 155/97 H 100 05/09/19 14:23 05/09/19 14:23 05/09/19 14:23 05/09/19 14:23 05/09/19 15:40 Oxygen Flow Rate (L/min) 2 Oxygen Delivery Method Nasal Cannula Weight: 27.896 kg Body Mass Index (BMI) 12.2 Finger Stick Blood Glucose 104 General: Alert, Oriented x3, Cooperative, No apparent distress, - - severely malnourished and cachexia, family at bedside HEENT: Atraumatic, PERRLA, EOMI, Normocephalic, EAC Clear Oral: Dry Mucosa, - - thrush present Neck: Supple, No JVD, Negative Carotid Bruits, Negative Hepatojugular Reflux, No Nodes, No Nuchal Rigidity, Trachea Midline, Thyroid Normal Size and Texture Lungs: Normal air movement, No rhonchi, No wheeze, No rales, Diminished - L Base Cardiovascular: Regular rate, Regular Rhythm, Normal S1, Normal S2, No murmurs, No Ectopic Activity, No rub noted, No Gallop Abdomen: Bowel Sounds Present, Soft, Non Tender, Non-Distended, No Hepato-sp lenomegaly, Passing Flatus, No hernias noted, - - J-tube in place clean and dry, well healed midline incision Extremities: No clubbing, No cyanosis, No edema Skin: No rashes, No breakdown, - - sores on face-healing Musculoskeletal: No Tenderness to Palpation of Joints or Extremities, Cachexia, Muscle Wasting Lymphatic: No Cervical, Supraclavicular, or Inguinal Adenopathy Neurological: Cranial nerves II-XII grossly intact, Deep Tendon Reflexes 2+/4 and Symmetrical, Neuro grossly intact, - - severe generalized weakness Psych/Mental Status: Normal Affect, Appropriate, Alert and oriented to time, place, person, mood and affect Laboratory Results 05/09/19 11:24: WBC 7.9, RBC 4.11 L, Hgb 12.7, Hct 42.9, MCV 104.4 H, MCH 30.9, MCHC 29.6 L, RDW Std Deviation 65.2 H, RDW Coeff of Fabrice 16.8 H, Plt Count 126 L, MPV 11.4, Immature Gran % (Auto) 0.600, Neut % (Auto) 88.4 H, Lymph % (Auto) 4.7 L, [place] % (Auto) 5.5, Eos % (Auto) 0.4, Baso % (Auto) 0.4, Absolute Neuts (auto) 7.0, Absolute Lymphs (auto) 0.37 L, Nucleated RBC % 0, Differential Comment SCANNED 05/09/19 11:24: Sodium 139, Potassium 5.2 H, Chloride 103, Carbon Dioxide 31.0, Anion Gap 5, BUN 29 H, Creatinine 3.96 H, Estim Creat Clear Calc 8.54, Est GFR (MDRD) Af Amer 16 L, Est GFR (MDRD) Non-Af 13 L, BUN/Creatinine Ratio 7.3 L, Glucose 85, Calcium 8.3 L, Total Bilirubin 0.50, AST 32, ALT 21, Alkaline Phosphatase 158 H, Troponin I < 0.015, Total Protein 8.0, Albumin 2.6 L, Globulin 5.4 H, Albumin/Globulin Ratio 0.5 L 05/09/19 11:24: Lactate Dehydrogenase 342 H, Lipase 28 L 05/09/19 15:29: Serum , Qual NEGATIVE Current Medications Cyanocobalamin (Vitamin B12) 1,000 mcg IM Q30D [facility]IMAN Dronabinol (Marinol) 2.5 mg PO 1HR_ACHS SULEIMAN Gabapentin (Neurontin) 300 mg PO BIDCM [facility] Last Admin: 05/09/19 16:29 Dose: 300 mg Documented by: Glucagon () 1 mg IM .X1 PRN PRN Reason: Hypoglycemia Heparin Sodium (Porcine) (Heparin Na) 5,000 unit SC Q12 [facility]LEIMAN Hydroxyzine HCl (Atarax Tablet) 10 mg PO Q8H PRN PRN Reason: ANXIETY Dextrose (Dextrose 10%-Water) 250 mls @ 999 mls/hr IV .Q16M PRN; Protocol PRN Reason: HYPOGLYCEMIA Metoprolol Tartrate (Lopressor (Beta Lucas)) 25 mg PO BID [facility] Multivit/Ca Carb/B Cmplx/FA/Prenat (Nephrocaps, Renaphro) 1 capsule PO QHS [facility]AN Oxycodone HCl (Oxyir) 5 mg PO Q6H PRN PRN Reason: pain Pantoprazole Sodium (Protonix) 40 mg PO BID [facility] Sodium Chloride () 10 - 40 ml IV UD PRN PRN Reason: SALINE FLUSH Sucralfate (Carafate) 1 gm PO 1HR_ACHS SULEIMAN Last Admin: 05/09/19 16:28 Dose: Not Given Documented by: Tizanidine HCl (Zanaflex) 4 mg PO QHS [facility]AN Voriconazole (Vfend) 200 mg PO BID [facility] Assessment/Plan All Active Problems (Last Reviewed 04/29/19 @ 11:32 by Ruby Watkins) Failure to thrive (Acute) History of gastrectomy (Acute) s/p left arteriovenous fistula creation (Acute ~05/06/18) Healthcare-associated pneumonia (Acute) history of failed renal transplant (Acute) Sepsis (Acute) JENNIFFER (acute kidney injury) (Resolved) History of renal transplant (Resolved) Failure to Thrive -will assess j-tube patency -if ok will check CT abdomen and pelvis with PO contrast -liberal diet -check B12/Folate/TSH -restart TF when appropriate (was on nocturnal continuous feeds) -Has required TPN in past -Continue Marinol Chills/Sweats -no white count/afebrile -will check blood cultures -hold ABX for now ESRD on HD -HD per nephro -Sees Dr. Mcdaniel -h/o renal transplant -continue prednisone 5 mg Pleural effusion -had recent thora on R -transudative fluid--> malnutrition and HD -CXR c/w effusion on L -d/w Dr. Vann per radiology no fluid to tap -will get dedicated US to L chest to evaluate further -consult to Pulm Thrush -Nystatin 4 x daily HTN -Continue BB H/O GERD/PUD -continue carafate and PPI BID H/O Gastric Cancer s/p subtotal gastrectomy and XRT -no current issues DVT prophylaxis -Heparin BID CODE STATUS: FULL CODE Code Visit Inpatient E&M: 12178 Init Hosp L3
--- NOTE | 2019-05-09 17:26 | US_ITS ---
STUDY: SUPERFICIAL ULTRASOUND - LEFT PLEURAL SPACE REASON FOR EXAM: Female, 48 years old. PLEURAL EFFUSION TECHNIQUE: A superficial ultrasound was performed with real-time and static stockton-scale imaging. COMPARISON: None. FINDINGS: Sonogram of left pleural space demonstrates loculated pleural effusion measuring about 8.3 x 3.5 cm in size, with thick septae.. There is also presence of a smaller right pleural effusion measuring 6.5 x 3.4 cm in size, with no significant loculation. US/Chest IMPRESSION: Bilateral pleural effusions, more on the left side, with loculation observed on the left side. Electronically Signed: Tex Stafford MD at 16:39 EST Tel [phone], Service support ,
[2019-05-09] MEDS: Dronabinol 2.5 MG Capsule PO ×2 (18:16→21:59)
[2019-05-09] MEDS: oxyCODONE 5 MG Tablet PO (18:16)
[2019-05-09] MEDS: Heparin Injection (Vial) 5,000 UNIT/ML VIAL 5000 UNIT SC (22:00)
[2019-05-09] MEDS: Metoprolol Tartrate 25 MG Tablet PO (22:02)
[2019-05-09] MEDS: Pantoprazole Sodium 40 MG Tablet PO (22:03)
[2019-05-09] MEDS: NYSTATIN 500,000 UNIT/5 ML UDC 500000 UNIT PO (22:04)
[2019-05-09] MEDS: Folic Acid/Vitamin B Comp W-C 1 Capsule 1 CAP PO (22:05)
[2019-05-09] MEDS: tiZANidine HCl 2 MG Tablet 4 MG PO (22:05)
[2019-05-09] MEDS: 0.9% Saline Lock 10 ML Syringe IV (22:12)
[2019-05-10] MEDS: oxyCODONE 5 MG Tablet PO ×3 (00:33→23:05)
[2019-05-10 02:30] VITALS: BP 153/95; PULSE 71; RESP 18; TEMP 36.9; O2SAT 100
[2019-05-10 06:00] LABS: Absolute Lymphocyte Count 0.67 X10^3/uL (0.83-4.51); Absolute Neutrophil Count 5.9 X10^3/uL (2.0-7.7); Basophil# 0.05 X10^3/uL; Basophil% 0.7 % (0-1); Eosinophil# 0.08 X10^3/uL; Eosinophils% 1.1 % (0-5); Hematocrit 32.2 % (37-47); Hemoglobin 9.7 g/dL (12.0-15.0); Lymphocyte # 0.67 X10^3/ul (4.0); Mean Corp Hgb Conc 30.1 g/dL (32-36); Mean Corpuscular Hgb 30.9 pg (27.0-32.0); Mean Corpuscular Volume 102.5 fL (81-99); Mean Platelet Vol. 11.5 fl (6.2-12.0); Monocyte# 0.73 X10^3/uL; Monocyte% 9.8 % (0-10); NRBC Flagged by Analyzer 0 % (0-5); Neutrophil # 5.86 X10^3/uL (2.7-7.7); Platelet Count 130 K/mm3 (150-450); RBC Distribution Width SD 64.1 fl (35.1-43.9); Red Blood Count 3.14 M/mm3 (4.2-5.4); White Blood Count 7.4 K/mm3 (4.4-11.0)
[2019-05-10] MEDS: Dronabinol 2.5 MG Capsule PO ×4 (06:56→23:01)
[2019-05-10 07:32] LABS: ALB/GLOB Ratio 0.5 RATIO (0.9-2.4); AST(SGOT) 17 U/L (15-37); Alanine Aminotransfer ALT/SGPT 15 U/L (13-56); Albumin, Serum 2.1 g/dL (3.2-5.0); Alkaline Phosphatase 134 U/L (45-117); Anion Gap 6 (5-15); BUN 31 mg/dL (7-18); BUN/Creat Ratio 7.6 RATIO (10-20); Calcium,Total 7.2 mg/dL (8.5-10.1); Chloride 102 mmol/L (98-107); Creatinine, Serum 4.09 mg/dL (0.55-1.02); EST Glomerular Filtration Rate 12 mL/min (>60); Est Glom Filt Rate - Afr Amer 15 mL/min (>60); Estimated Creatinine Clearance 8.19 ml/min; Folates, (Folic Acid) > 100.00 ng/mL (3.1-55.4); Globulin 4.1 g/dL (2.2-4.2); Glucose 70 mg/dL (74-106); Magnesium 2.4 mg/dL (1.6-2.6); Phosphorus 4.9 mg/dL (2.5-4.9); Protein, Total 6.2 g/dL (6.4-8.2); Sodium Level 137 mmol/L (136-145); Thyroid Stim Hormone (TSH) 2.07 uIU/mL (0.358-3.74)
[2019-05-10 09:00] VITALS: BP 172/91; PULSE 68; RESP 18; TEMP 36.6; O2SAT 100
[2019-05-10 09:12] VITALS: PULSE 68
[2019-05-10] MEDS: Pantoprazole Sodium 40 MG Tablet PO ×2 (09:12→22:53)
[2019-05-10] MEDS: Metoprolol Tartrate 25 MG Tablet PO ×2 (09:12→23:03)
[2019-05-10] MEDS: NYSTATIN 500,000 UNIT/5 ML UDC 500000 UNIT PO ×2 (09:13→14:57)
[2019-05-10] MEDS: Gabapentin 300 MG Capsule PO ×2 (09:17→16:50)
--- NOTE | 2019-05-10 09:38 | PCM.PN.BLA ---
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 She received iv fluid bolus. She has a feeding tube with intolerance to TF complaining of persistent nausea, chills with feedings. She has chronic small pleural effusion s/p recent diagnostic thoracetesis followed by pulmonary. She is currently on dialysis holiday schedule , Sat this week. She has bleeding from cannulation site with clots pulled from needle site. Discussed with dialysis nurse. May need fistulogram by Dr. Jenkins. STROKE Vital Signs/Narrative: Vital Signs Pulse 05/10/19 09:12 68
--- NOTE | 2019-05-10 10:50 | PCM.PN.HOSP ---
Patient Problems: Active and Suspected Problems (Last Reviewed 05/09/19 @ 17:18 by Magaly Mcdaniel DO) Failure to thrive (Acute) Subjective: Able to eat some but sweats every time she eats. On HD at this time. KUB with gastrografin has not yet been completed. Vitals/I&O's: Vital Signs Temp Pulse Resp BP Pulse Ox 97.9 F 68 18 172/91 H 100 05/10/19 09:00 05/10/19 09:12 05/10/19 09:00 05/10/19 09:00 05/10/19 09:00 Oxygen Flow Rate (L/min) 2 Oxygen Delivery Method Room Air Weight: 30.5 kg Body Mass Index (BMI) 12.2 Finger Stick Blood Glucose 104 Intake and Output for Last 24 Hours 05/08/19 05/09/19 05/10/19 23:59 23:59 23:59 Intake Total 1550 / 1550 Balance 1550 / 1550 General: Alert, Oriented x3, Cooperative, No apparent distress, Well developed, Well nourished, - - cachexia Lungs: Normal air movement, No rhonchi, No wheeze, No rales, Diminished - L base Cardiovascular: Regular rate, Regular Rhythm, Normal S1, Normal S2, No murmurs, No Ectopic Activity, No rub noted, No Gallop Abdomen: Bowel Sounds Present, Soft, Non Tender, Non-Distended, - - J-tube in place-no drainage Extremities: No clubbing, No cyanosis, No edema Skin: - - LUE fistula-working adequately Psych/Mental Status: Appropriate, Alert and oriented to time, place, person, mood and affect Laboratory Results 05/09/19 11:24: WBC 7.9, RBC 4.11 L, Hgb 12.7, Hct 42.9, MCV 104.4 H, MCH 30.9, MCHC 29.6 L, RDW Std Deviation 65.2 H, RDW Coeff of Fabrice 16.8 H, Plt Count 126 L, MPV 11.4, Immature Gran % (Auto) 0.600, Neut % (Auto) 88.4 H, Lymph % (Auto) 4.7 L, [place] % (Auto) 5.5, Eos % (Auto) 0.4, Baso % (Auto) 0.4, Absolute Neuts (auto) 7.0, Absolute Lymphs (auto) 0.37 L, Nucleated RBC % 0, Differential Comment SCANNED 05/09/19 11:24: Sodium 139, Potassium 5.2 H, Chloride 103, Carbon Dioxide 31.0, Anion Gap 5, BUN 29 H, Creatinine 3.96 H, Estim Creat Clear Calc 8.54, Est GFR (MDRD) Af Amer 16 L, Est GFR (MDRD) Non-Af 13 L, BUN/Creatinine Ratio 7.3 L, Glucose 85, Calcium 8.3 L, Total Bilirubin 0.50, AST 32, ALT 21, Alkaline Phosphatase 158 H, Troponin I < 0.015, Total Protein 8.0, Albumin 2.6 L, Globulin 5.4 H, Albumin/Globulin Ratio 0.5 L 05/09/19 11:24: Lactate Dehydrogenase 342 H, Lipase 28 L 05/09/19 15:29: Serum , Qual NEGATIVE 05/10/19 05:20: WBC 7.4, RBC 3.14 L, Hgb 9.7 L, Hct 32.2 L, MCV 102.5 H, MCH 30.9, MCHC 30.1 L, RDW Std Deviation 64.1 H, RDW Coeff of Fabrice 17.0 H, Plt Count 130 L, MPV 11.5, Immature Gran % (Auto) 0.400, Neut % (Auto) 79.0 H, Lymph % (Auto) 9.0 L, [place] % (Auto) 9.8, Eos % (Auto) 1.1, Baso % (Auto) 0.7, Absolute Neuts (auto) 5.9, Absolute Lymphs (auto) 0.67 L, Nucleated RBC % 0 05/10/19 05:20: Sodium 137, Potassium 5.0, Chloride 102, Carbon Dioxide 29.0, Anion Gap 6, BUN 31 H, Creatinine 4.09 H, Estim Creat Clear Calc 8.19, Est GFR (MDRD) Af Amer 15 L, Est GFR (MDRD) Non-Af 12 L, BUN/Creatinine Ratio 7.6 L, Glucose 70 L, Calcium 7.2 L, Phosphorus 4.9, Magnesium 2.4, Total Bilirubin 0.40, AST 17, ALT 15, Alkaline Phosphatase 134 H, Total Protein 6.2 L, Albumin 2.1 L, Globulin 4.1, Albumin/Globulin Ratio 0.5 L, Folate > 100.00 H, TSH 2.07 05/10/19 05:20: Vitamin B12 Pending Current Medications Cyanocobalamin (Vitamin B12) 1,000 mcg IM Q30D [facility] Dronabinol (Marinol) 2.5 mg PO 1HR_ACHS [facility] Last Admin: 05/10/19 06:56 Dose: 2.5 mg Documented by: Gabapentin (Neurontin) 300 mg PO BIDCM [facility] Last Admin: 05/10/19 09:17 Dose: 300 mg Documented by: Glucagon () 1 mg IM .X1 PRN PRN Reason: Hypoglycemia Heparin Sodium (Porcine) (Heparin Na) 5,000 unit SC Q12 [facility] Last Admin: 05/09/19 22:00 Dose: 5,000 unit Documented by: Hydroxyzine HCl (Atarax Tablet) 10 mg PO Q8H PRN PRN Reason: ANXIETY Dextrose (Dextrose 10%-Water) 250 mls @ 999 mls/hr IV .Q16M PRN; Protocol PRN Reason: HYPOGLYCEMIA Metoprolol Tartrate (Lopressor (Beta Lucas)) 25 mg PO BID [facility] Last Admin: 05/10/19 09:12 Dose: 25 mg Documented by: Multivit/Ca Carb/B Cmplx/FA/Prenat (Nephrocaps, Renaphro) 1 capsule PO QHS [facility] Last Admin: 05/09/19 22:05 Dose: 1 capsule Documented by: Nystatin (Nystatin) 500,000 unit PO 4X/DAY [facility] Last Admin: 05/10/19 09:13 Dose: 500,000 unit Documented by: Oxycodone HCl (Oxyir) 5 mg PO Q6H PRN PRN Reason: pain Last Admin: 05/10/19 09:11 Dose: 5 mg Documented by: Pantoprazole Sodium (Protonix) 40 mg PO BID [facility] Last Admin: 05/10/19 09:12 Dose: 40 mg Documented by: Sodium Chloride () 10 - 40 ml IV UD PRN PRN Reason: SALINE FLUSH Last Admin: 05/09/19 22:12 Dose: 10 ml Documented by: Sucralfate (Carafate) 1 gm PO 1HR_ACHS [facility] Last Admin: 05/10/19 06:19 Dose: Not Given Documented by: Tizanidine HCl (Zanaflex) 4 mg PO QHS [facility] Last Admin: 05/09/19 22:05 Dose: 4 mg Documented by: STROKE Vital Signs/Narrative: Vital Signs Temp Pulse Resp BP Pulse Ox 05/10/19 09:12 68 05/10/19 09:00 97.9 F 68 18 172/91 H 100 Medical Necessity - Tobacco Use Smoking Status: Smoker, status unknown Assessment/Plan All Active Problems (Last Reviewed 05/09/19 @ 17:18 by Magaly Mcdaniel DO) Failure to thrive (Acute) History of gastrectomy (Acute) s/p left arteriovenous fistula creation (Acute ~05/06/18) Healthcare-associated pneumonia (Acute) history of failed renal transplant (Acute) Sepsis (Acute) JENNIFFER (acute kidney injury) (Resolved) History of renal transplant (Resolved) Failure to Thrive -will assess j-tube patency-->Gastrografin KUB is pending -if ok will check CT abdomen and pelvis with PO contrast -liberal diet -check B12/Folate and TSH WNL -restart TF when appropriate (was on nocturnal continuous feeds) -would like to assure TF is able to be given and tolerated nocturnally prior to d/c -Has required TPN in past -Continue Marinol -concern about complications related to XRT (10-15 yrs out) Severe Malnutrition -see above Chills/Sweats -no white count/afebrile -blood cx pending -hold ABX for now -states this gets worse with eating -unable to check 5-HIAA urine 2/2 no urine production/check serum serotonin level ESRD on HD -HD per nephro (MWF for holiday) -Sees Dr. Mcdaniel -h/o renal transplant -continue prednisone 5 mg -fistula is working well at this time and HD is almost complete Pleural effusion -had recent thora on R -transudative fluid--> malnutrition and HD -CXR c/w effusion on L -d/w Dr. Vann per radiology no fluid to tap -dedicated US to L chest is pending -consult to Pulm Thrush -Nystatin 4 x daily HTN -Continue BB H/O GERD/PUD -continue carafate and PPI BID H/O Gastric Cancer s/p subtotal gastrectomy and XRT -no current issues DVT prophylaxis -Heparin BID CODE STATUS: FULL CODE Code Visit Inpatient E&M: 91726 Subs Hosp L2
[2019-05-10] MEDS: Epoetin Alfa epbx 10,000 UNITS/ML 6000 UNIT IV (11:58)
[2019-05-10] MEDS: Heparin Injection (Vial) 5,000 UNIT/ML VIAL 5000 UNIT SC ×2 (11:58→23:01)
--- NOTE | 2019-05-10 12:10 | DIALYSIS ---
Hemodialysis x 2.5 hours completed. Tx ended 30mins d/t access issues. Bleeding leaking around the needle sites noted. Upon pausing tx and removing tape, clots noted around needle exit sites. Bleeding continued around needle sites, then needles removed. Sites held. Hemostasis achieved. Dressing applied. System clotted and needed to be reset up. Dr. Mcdaniel notified. Tx ordered to be reinitiated with 2 new needles. Access cannulated without problem. No bleeding noted during remainder of tx. Epogen 6000units ordered q tx. Fluid balance -900ml. Report given to MONTY Swartz. Pt stable
[2019-05-10 12:20] LABS: Vitamin B12 1044 pg/mL (211-911)
--- NOTE | 2019-05-10 12:23 | CASEMGMT ---
RN CM Assessment Introduced role of RN CM to patient and patient Medardo at bedside.? Patient is alert, oriented and able?to participate in RN CM Assessment. ?Care providers, pharmacy, and demographics verified. Presentation: Not feeling well, sweats, nausea. Hypotensive after dialyzed and required fluids. Admit Dx: Failure to Thrive Re-Admit: No Barriers/Issues: H/o Stomach Ca, Gastrectomy, TF at nights- per patient reports that she has not done TF since March. Does not know company she gets it through but has their number- has supplies at home and denies issues with this. HD [facility]. Days: //FRI. Chair Start Time: 7am PCP: Deb Gregory Specialists: At [facility] Preferred Pharmacy: [facility] Insurance: MMO, [facility] A&B Rx Benefit:?Yes ?LNOK: Medardo Valverde LW/HPOA: None, Advanced Directive information with SW rack card provided per request. Denies wanting completion n this hospital admit, made aware can complete as an outpatient with dept Living Arrangements:? Lives with her in a 2SH, Bedroom on upper fl but has been staying on 1st fl. 5 steps to enter home. ADL?s: Independent with ambulation and ADLs Transportation: Patient states can drive but her and father have been driving recently DME: Home O2 Continuous 2L with [employer]. TF Supplies. Has but does not use: Shower Chair, Glucometer HHC: Past SNF: None Goal: Home and does not think has any needs. Denies issues, concerns or questions with DC planning at this time. Aware CM will continue to follow for any DC planning needs. DC PLAN: Home with no anticipated needs identified at this time. RUDY Olson
--- NOTE | 2019-05-10 12:49 | PCM.CONS.PUL ---
Reason for Consult Date of Consultation: 05/10/19 Reason for Consultation: Pleural effusion History of Present Illness: The patient is a 48-year-old female, with a history as outlined below, who presented to the emergency department on May 09 with generalized malaise and failure to thrive. She reported that she became shaky and began to sweat when eating. However, she now reports that in hindsight, she believes that some of her symptoms were likely secondary to anxiety. She also reported issues with the functionality of her PEG tube. Of note, the patient does have a baseline 2 L/min exertional oxygen requirement, based upon 6-minute walk test completed in February 2019. The patient has been followed by myself in the pulmonary medicine clinic on an outpatient basis. I initially met the patient in July 2018 when she was admitted to the hospital with acute hypoxemic respiratory failure, which was felt to be secondary to hypervolemia in the setting of end-stage renal disease and healthcare associated pneumonia. Pulmonary function studies completed in October 2018 revealed evidence of a severe restrictive ventilatory impairment with symmetric reduction in diffusing capacity. A 6-minute walk test just completed in February 2019 revealed the need for 2 L/min of supplemental oxygen with exertion. The patient's last plain film chest x-ray completed in November 2018 did reveal evidence of bilateral pleural effusions. Since I initially met the patient in the spring 2018, subsequent plain film chest x-rays have always demonstrated the presence of bilateral pleural effusions. On May 04, the patient was referred to radiology where she underwent an ultrasound-guided thoracentesis of her right pleural effusion. That effusion was found to be transudate of in nature. Past Medical History Past Medical History (Chronic Problems): Chronic Problems (Last Reviewed 05/09/19 @ 17:18 by Magaly Mcdaniel DO) ESRD on dialysis (Chronic) Pleural effusion (Chronic) Chronic renal failure, stage 5 (Chronic) Problem with dialysis access (Chronic) Renal transplant rejection (Chronic) GERD (gastroesophageal reflux disease) (Chronic) History of cytomegalovirus infection (Chronic) Pneumonia, bacterial (Chronic) CKD (chronic kidney disease) stage 4, GFR 15-29 ml/min (Chronic) History of gastric cancer (Chronic) Essential hypertension (Chronic) Anemia, chronic renal failure (Chronic) Medical History: Medical History (Last Reviewed 05/09/19 @ 17:18 by Magaly Mcdaniel DO) History of gastrectomy (Acute) Z90.3 Problem with dialysis access (Chronic) T82.898A Renal transplant rejection (Chronic) T86.11 GERD (gastroesophageal reflux disease) (Chronic) K21.9 History of cytomegalovirus infection (Chronic) Z86.19 history of failed renal transplant (Acute) Sepsis (Acute) A41.9 Pneumonia, bacterial (Chronic) J15.9 JENNIFFER (acute kidney injury) (Resolved) N17.9 CKD (chronic kidney disease) stage 4, GFR 15-29 ml/min (Chronic) N18.4 History of gastric cancer (Chronic) Z85.028 Essential hypertension (Chronic) I10 Anemia, chronic renal failure (Chronic) N18.9, D63.1 Allergies Sulfa (Sulfonamide Antibiotics) Allergy (Verified 05/09/19 10:22) Hives NSAIDS (Non-Steroidal Anti-Inflamma Adverse Reaction (Verified 05/09/19 10:22) Other Home Medications: Ambulatory Orders Medication Instructions Recorded Cyanocobalamin [Vitamin B12] 1,000 mcg IM Q30D 07/03/17 Dronabinol [Marinol] 2.5 mg PO 4X/DAY 07/03/17 Gabapentin [Neurontin] 300 mg PO BIDCM 07/03/17 Levonorgestrel [Mirena] 1 ea VAGINAL UD 07/03/17 Vits [Prenatabs FA ] 1 tab PO DAILY 07/03/17 Tizanidine HCl [Zanaflex] 4 mg PO QHS 04/27/18 Biotin 10,000 mcg PO DAILY 05/05/18 oxycodone-acetaminophen 5 mg-325 1 tab PO Q6H 06/30/18 mg tablet pantoprazole 40 mg tablet,delayed 40 mg PO BID 07/22/18 release Hydroxyzine HCl 10 mg PO Q8 PRN 09/22/18 Metoprolol Tartrate [Lopressor 25 mg PO BID 09/22/18 (beta lucas)] Folic Acid/Vit B Complex and C 0.8 mg PO QHS 11/18/18 [Renal Vitamin Tablet] sucralfate 1 gram tablet 1 g PO QACHS 11/18/18 Prednisone 5 mg PO DAILY 05/09/19 Surgical History: Surgical History (Last Reviewed 05/09/19 @ 17:18 by Magaly Mcdaniel DO) s/p left arteriovenous fistula creation (Acute) Onset Date: ~05/06/18 History of renal transplant (Resolved) Z94.0 Surgical History: - - Failed kidney transplant from adoptive mother, AV fistula Smoking Status: Smoker, status unknown Alcohol: None Drugs: None - *Family History Maternal History Items: No pertinent history - Patient adopted Review of Systems Constitutional: Reports: Malaise, Weakness, Fatigue. Denies: Chills, Fever Eyes: Denies: Blurred vision, Double vision HEENT: Denies: Head Aches, Sinus Congestion, Sinus Drainage Cardiovascular: Denies: Chest Pain, Palpitations Respiratory: Reports: Shortness of Breath Gastrointestinal: Denies: Abdominal Pain, Nausea, Vomiting Genitourinary: Denies: Dysuria Musculoskeletal: Denies: Joint Pain, Joint Tenderness Skin: Denies: Rash, Wounds Neurological: Denies: Numbness, Tingling, Focal weakness Psychiatric: Reports: Anxiety Hematologic/ Lymphatic: Denies: Easy Bruising, Easy Bleeding Patient Problems: Active and Suspected Problems (Last Reviewed 05/09/19 @ 17:18 by Magaly Mcdaniel DO) Failure to thrive (Acute) Objective: The patient's most recent lab work, culture data and imaging studies have all been personally reviewed. - Physical Exam Vitals/I&O's: Vital Signs Temp Pulse Resp BP Pulse Ox 97.9 F 68 18 172/91 H 100 05/10/19 09:00 05/10/19 09:12 05/10/19 09:00 05/10/19 09:00 05/10/19 09:00 Oxygen Flow Rate (L/min) 2 Oxygen Delivery Method Room Air Weight: 67 lb 3.856 oz Body Mass Index (BMI) 12.2 Finger Stick Blood Glucose 104 Intake and Output for Last 24 Hours 05/08/19 05/09/19 05/10/19 23:59 23:59 23:59 Intake Total 1550 / 1550 Balance 1550 / 1550 General: Alert, Oriented x3, Cooperative, No apparent distress HEENT: Atraumatic, PERRLA, Normocephalic Oral: No Gingival or Mucosal Lesions/ Ulcerations Neck: Supple, No Nodes, Trachea Midline Lungs: No rhonchi, No wheeze, No rales, Diminished Cardiovascular: Regular rate, Regular Rhythm, Normal S1, Normal S2, No murmurs Abdomen: Bowel Sounds Present, Soft, Non Tender, - - Feeding tube in place Extremities: No clubbing, No cyanosis, No edema Skin: No breakdown Musculoskeletal: Cachexia, Muscle Wasting Lymphatic: No Cervical, Supraclavicular, or Inguinal Adenopathy Neurological: Cranial nerves II-XII grossly intact, Neuro grossly intact Psych/Mental Status: Normal Affect, Appropriate Labs (Last 48 Hours) 05/09/19 05/09/19 05/09/19 11:24 11:24 11:24 WBC 7.9 RBC 4.11 L Hgb 12.7 Hct 42.9 MCV 104.4 H MCH 30.9 MCHC 29.6 L RDW Std Deviation 65.2 H RDW Coeff of Fabrice 16.8 H Plt Count 126 L MPV 11.4 Immature Gran % (Auto) 0.600 Neut % (Auto) 88.4 H Lymph % (Auto) 4.7 L [place] % (Auto) 5.5 Eos % (Auto) 0.4 Baso % (Auto) 0.4 Absolute Neuts (auto) 7.0 Absolute Lymphs (auto) 0.37 L Nucleated RBC % 0 Differential Comment SCANNED Sodium 139 Potassium 5.2 H Chloride 103 Carbon Dioxide 31.0 Anion Gap 5 BUN 29 H Creatinine 3.96 H Estim Creat Clear Calc 8.54 Est GFR (MDRD) Af Amer 16 L Est GFR (MDRD) Non-Af 13 L BUN/Creatinine Ratio 7.3 L Glucose 85 Calcium 8.3 L Phosphorus Magnesium Total Bilirubin 0.50 AST 32 ALT 21 Alkaline Phosphatase 158 H Lactate Dehydrogenase 342 H Troponin I < 0.015 Total Protein 8.0 Albumin 2.6 L Globulin 5.4 H Albumin/Globulin Ratio 0.5 L Lipase 28 L Serotonin Vitamin B12 Folate TSH Serum , Qual 05/09/19 05/10/19 05/10/19 15:29 05:20 05:20 WBC 7.4 RBC 3.14 L Hgb 9.7 L Hct 32.2 L MCV 102.5 H MCH 30.9 MCHC 30.1 L RDW Std Deviation 64.1 H RDW Coeff of Fabrice 17.0 H Plt Count 130 L MPV 11.5 Immature Gran % (Auto) 0.400 Neut % (Auto) 79.0 H Lymph % (Auto) 9.0 L [place] % (Auto) 9.8 Eos % (Auto) 1.1 Baso % (Auto) 0.7 Absolute Neuts (auto) 5.9 Absolute Lymphs (auto) 0.67 L Nucleated RBC % 0 Differential Comment Sodium 137 Potassium 5.0 Chloride 102 Carbon Dioxide 29.0 Anion Gap 6 BUN 31 H Creatinine 4.09 H Estim Creat Clear Calc 8.19 Est GFR (MDRD) Af Amer 15 L Est GFR (MDRD) Non-Af 12 L BUN/Creatinine Ratio 7.6 L Glucose 70 L Calcium 7.2 L Phosphorus 4.9 Magnesium 2.4 Total Bilirubin 0.40 AST 17 ALT 15 Alkaline Phosphatase 134 H Lactate Dehydrogenase Troponin I Total Protein 6.2 L Albumin 2.1 L Globulin 4.1 Albumin/Globulin Ratio 0.5 L Lipase Serotonin Vitamin B12 Folate > 100.00 H TSH 2.07 Serum , Qual NEGATIVE 05/10/19 05/10/19 05:20 05:28 WBC RBC Hgb Hct MCV MCH MCHC RDW Std Deviation RDW Coeff of Fabrice Plt Count MPV Immature Gran % (Auto) Neut % (Auto) Lymph % (Auto) [place] % (Auto) Eos % (Auto) Baso % (Auto) Absolute Neuts (auto) Absolute Lymphs (auto) Nucleated RBC % Differential Comment Sodium Potassium Chloride Carbon Dioxide Anion Gap BUN Creatinine Estim Creat Clear Calc Est GFR (MDRD) Af Amer Est GFR (MDRD) Non-Af BUN/Creatinine Ratio Glucose Calcium Phosphorus Magnesium Total Bilirubin AST ALT Alkaline Phosphatase Lactate Dehydrogenase Troponin I Total Protein Albumin Globulin Albumin/Globulin Ratio Lipase Serotonin Pending Vitamin B12 1044 H Folate TSH Serum , Qual Clinical Impression(s) from Imaging Studies Chest X-Ray 05/09/19 10:52 IMPRESSION: Stable moderate-sized left pleural effusion, cannot exclude associated left basilar atelectasis and/or pneumonia. Possible small right pleural effusion. Electronically Signed: Danielle Mike MD at 11:09 EST Tel , Service support , Current Medications Cyanocobalamin (Vitamin B12) 1,000 mcg IM Q30D [facility] Dronabinol (Marinol) 2.5 mg PO 1HR_ACHS [facility] Last Admin: 05/10/19 11:57 Dose: 2.5 mg Documented by: Gabapentin (Neurontin) 300 mg PO BIDCM [facility] Last Admin: 05/10/19 09:17 Dose: 300 mg Documented by: Glucagon () 1 mg IM .X1 PRN PRN Reason: Hypoglycemia Heparin Sodium (Porcine) (Heparin Na) 5,000 unit SC Q12 [facility] Last Admin: 05/10/19 11:58 Dose: 5,000 unit Documented by: Hydroxyzine HCl (Atarax Tablet) 10 mg PO Q8H PRN PRN Reason: ANXIETY Dextrose (Dextrose 10%-Water) 250 mls @ 999 mls/hr IV .Q16M PRN; Protocol PRN Reason: HYPOGLYCEMIA Metoprolol Tartrate (Lopressor (Beta Lucas)) 25 mg PO BID [facility] Last Admin: 05/10/19 09:12 Dose: 25 mg Documented by: Multivit/Ca Carb/B Cmplx/FA/Prenat (Nephrocaps, Renaphro) 1 capsule PO QHS [facility] Last Admin: 05/09/19 22:05 Dose: 1 capsule Documented by: Nystatin (Nystatin) 500,000 unit PO 4X/DAY [facility] Last Admin: 05/10/19 09:13 Dose: 500,000 unit Documented by: Oxycodone HCl (Oxyir) 5 mg PO Q6H PRN PRN Reason: pain Last Admin: 05/10/19 09:11 Dose: 5 mg Documented by: Pantoprazole Sodium (Protonix) 40 mg PO BID [facility] Last Admin: 05/10/19 09:12 Dose: 40 mg Documented by: Sodium Chloride () 10 - 40 ml IV UD PRN PRN Reason: SALINE FLUSH Last Admin: 05/09/19 22:12 Dose: 10 ml Documented by: Sucralfate (Carafate) 1 gm PO 1HR_ACHS [facility] Last Admin: 05/10/19 11:58 Dose: 1 gm Documented by: Tizanidine HCl (Zanaflex) 4 mg PO QHS [facility] Last Admin: 05/09/19 22:05 Dose: 4 mg Documented by: Assessment/Plan All Active Problems (Last Reviewed 05/09/19 @ 17:18 by Magaly Mcdaniel DO) Failure to thrive (Acute) History of gastrectomy (Acute) s/p left arteriovenous fistula creation (Acute ~05/06/18) Healthcare-associated pneumonia (Acute) history of failed renal transplant (Acute) Sepsis (Acute) JENNIFFER (acute kidney injury) (Resolved) History of renal transplant (Resolved) RECOMMENDATIONS: 1. Obtain ultrasound of left chest to evaluate for loculations. 2. Wean supplemental oxygen as tolerated. 3. Work-up of PEG tube functionality per hospitalist. IMPRESSIONS: 1. Pleural effusions/chronic hypoxemic respiratory failure The patient has had bilateral pleural effusions for quite some time. My concern has been that the left-sided pleural effusion may be loculated in nature. The patient did undergo a thoracentesis of the right effusion in mid April which was transudative in nature. I have suspected that her effusions are likely the consequence of her end-stage renal disease and subsequent volume status coupled with her poor nutritional status. At this time, I have recommended that we obtain a dedicated ultrasound of her left pleural space to evaluate for the presence of loculations. If present, the patient can always be referred to thoracic surgery for potential pleurodesis. Per traditional Light's criteria, if at least one of the following three is fulfilled, the fluid would be considered an exudate: 1. Pleural fluid protein/serum protein ratio greater than 0.5 2. Pleural fluid LDH/serum LDH ratio greater than 0.6 3. Pleural fluid LDH greater than two thirds the upper limits of the laboratories normal serum LDH Based upon my review of the patient's pleural fluid analysis, along with serum LDH and total protein levels, the pleural fluid would be considered transudative in nature. This note was generated with [employer] software. It may contain incorrect words, spelling, and punctuation that were not noted in checking the note before signing. Code Visit Inpatient E&M: 54768 Init Hosp L2
--- NOTE | 2019-05-10 14:54 | RAD_ITS ---
STUDY: X-RAY - ABDOMEN/PELVIS REASON FOR EXAM: Female, 48 years old. CHECK J-TUBE PATENCY AND POSITION -- INJECTED WITH 60ML GASTROGRAFFIN AND WATER SOLUTION TECHNIQUE: Radiograph of abdomen performed after administration of contrast via the J-tube COMPARISON: None. FINDINGS: Moderate left and small right pleural effusion in the visualized lung bases. Contrast injected via the J-tube is visualized within the jejunum, confirming good position of the distal end of the J-tube. There is an unremarkable small bowel gas pattern. There is no demonstrated free abdominal air. The visualized liver, spleen and kidneys are grossly normal in size and morphology. IUD in place. Normal visualized osseous structures. RAD/Abdomen Single View IMPRESSION: Good position of the distal end of the J-tube. Electronically Signed: Tex Stafford MD at 15:52 EST Tel [phone], Service support ,
[2019-05-10 14:55] VITALS: BP 133/93; PULSE 79; RESP 16; TEMP 37; O2SAT 97
[2019-05-10] MEDS: 0.9% Saline Lock 10 ML Syringe IV (15:03)
[2019-05-10] MEDS: Sucralfate 1 GM Tablet PO (16:50)
--- NOTE | 2019-05-10 17:33 | CT_ITS ---
STUDY: CT ABDOMEN AND PELVIS WITHOUT CONTRAST REASON FOR EXAM: Female, 48 years old. NAUSEA. POST KIDNEY TRANSPLANT WITH REJECTION. ON DIALYSIS. H/O GASTRIC CA W/ GASTRECTOMY, PEG TUBE-ISSUES WITH FUNCTIONALITY. RADIATION DOSAGE (If Supplied By Facility): CTDIvol = ( 6.04 ) mGy, DLP = ( 271.80 ) mGycm TECHNIQUE: Transaxial images were obtained from the dome of the diaphragm to the symphysis pubis without oral contrast, and without intravenous contrast. Sagittal and coronal images were reconstructed. Individualized dose optimization techniques were used for this CT. COMPARISON: 10/10/2009. FINDINGS: Exam is very limited due to minimal amount of fat and diffuse fluid infiltration of the soft tissues consistent with anasarca. This makes distinction of structures difficult. The visualized right lung base reveals right lower lobe atelectasis. There are bilateral large pleural effusion with suggestion of shift of the heart to the left. There is high density with thickening of the parietal left pleura which may indicate nonspecific inflammatory or infectious versus neoplastic process. The visualized portions of the heart are within normal limits. Normal liver. Normal gallbladder and extrahepatic biliary system. Normal spleen. Suboptimally seen head of the pancreas, otherwise normal visualized pancreas. Suboptimally seen adrenal glands with no distinct mass in the expected region of the adrenal glands. Multiple bilateral cysts scattered within the kidneys, largest on the right measuring 0.8 cm and on the left measuring 2.2 x 2.3 cm. Punctate calcifications suggestive of nonobstructive stones scattered within the bilateral kidneys and measuring between 1 mm up to 2.2 mm. Remainder bilateral kidneys unremarkable. The patient is status post gastrectomy by history. There is visualization of a left-sided jejunostomy tube with the opacification of the small bowel loop as well as:. There is questionable soft tissue density identified in the left upper quadrant just to the left and cephalad of the jejunostomy tube, cannot exclude a recurrent soft tissue mass. The adjacent colon reveals wall thickening splenic flexure. Remainder of the colon is unremarkable. There is non-visualization of the appendix. There is diffuse atherosclerotic calcification of the abdominal aorta, without a demonstrated aneurysm. Normal visualized inferior vena cava. For visualization of the retroperitoneal region due to diffuse fluid infiltration and minimal amount of fat. Cannot exclude lymphadenopathy. Incompletely distended urinary bladder. The uterus is visualized within IUD in place. There is ascites within the abdomen. Normal abdominal wall. Mottled appearance of the vertebral bodies through the lower thoracic spine, L1 and L2 concerning for metastatic disease. CT/Abdomen/Pel W ORAL Cont Only IMPRESSION: Diffuse anasarca, ascites and bilateral pleural effusions as described above. Questionable recurrent mass to the left side and cephalad to the jejunostomy tube versus artifact. Possible involvement of the wall of the adjacent colon at the splenic flexure, clinical correlation recommended. If recurrence represents a clinical concern, follow-up with PET scanning or CT with intravenous and oral contrast in nonacute setting. Bony metastatic disease. Electronically Signed: Ivon Reveles MD at 0:47 EST , Service support ,
[2019-05-10 20:51] VITALS: BP 142/81; PULSE 69; RESP 18; TEMP 36.9; O2SAT 100
[2019-05-10] MEDS: Folic Acid/Vitamin B Comp W-C 1 Capsule 1 CAP PO (22:52)
[2019-05-10] MEDS: tiZANidine HCl 2 MG Tablet 4 MG PO (22:53)
[2019-05-10 23:03] VITALS: BP 138/90; PULSE 69
[2019-05-11 02:13] VITALS: BP 138/84; PULSE 69; RESP 16; TEMP 36.9; O2SAT 100
--- NOTE | 2019-05-11 06:44 | PN_ITS ---
Patient Problems: Active and Suspected Problems (Last Reviewed 05/09/19 @ 17:18 by Magaly Mcdaniel DO) Failure to thrive (Acute) Subjective: The patient was seen and examined at the bedside this morning. Events from the last 24 hours have been reviewed. The patient is currently afebrile, hemodynamically stable and maintaining appropriate oxygen saturations on room air while at rest. The patient's chest ultrasound was completed yesterday and did confirm my suspicions that the patient has a loculated left-sided pleural effusion, with internal septations. The patient's breathing quality is at its baseline. Objective: The patient's most recent lab work, culture data and imaging studies have all been personally reviewed. - Physical Exam Vitals/I&O's: Vital Signs Temp Pulse Resp BP Pulse Ox 98.4 F 69 16 138/84 H 100 05/11/19 02:13 05/11/19 02:13 05/11/19 02:13 05/11/19 02:13 05/11/19 02:13 Oxygen Flow Rate (L/min) 2 Oxygen Delivery Method Room Air Weight: 65 lb 7.637 oz Body Mass Index (BMI) 12.2 Finger Stick Blood Glucose 104 Intake and Output for Last 24 Hours 05/09/19 05/10/19 05/11/19 23:59 23:59 23:59 Intake Total 1550 / 1550 300 / 300 Output Total 900 / 900 Balance 1550 / 1550 -600 / -600 General: Alert, Cooperative, No apparent distress HEENT: Atraumatic, PERRLA, Normocephalic Oral: No Gingival or Mucosal Lesions/ Ulcerations Neck: Supple, No Nodes, Trachea Midline Lungs: No rhonchi, No wheeze, No rales, Diminished Cardiovascular: Regular rate, Regular Rhythm, Normal S1, Normal S2, No murmurs Abdomen: Bowel Sounds Present, Soft, Non Tender, - - Feeding tube in place Extremities: No clubbing, No cyanosis, No edema Skin: No breakdown Musculoskeletal: Cachexia, Muscle Wasting Lymphatic: No Cervical, Supraclavicular, or Inguinal Adenopathy Neurological: Neuro grossly intact Psych/Mental Status: Normal Affect, Appropriate Labs (Last 48 Hours) 05/09/19 05/09/19 05/09/19 11:24 11:24 11:24 WBC 7.9 RBC 4.11 L Hgb 12.7 Hct 42.9 MCV 104.4 H MCH 30.9 MCHC 29.6 L RDW Std Deviation 65.2 H RDW Coeff of Fabrice 16.8 H Plt Count 126 L MPV 11.4 Immature Gran % (Auto) 0.600 Neut % (Auto) 88.4 H Lymph % (Auto) 4.7 L [place] % (Auto) 5.5 Eos % (Auto) 0.4 Baso % (Auto) 0.4 Absolute Neuts (auto) 7.0 Absolute Lymphs (auto) 0.37 L Nucleated RBC % 0 Differential Comment SCANNED Sodium 139 Potassium 5.2 H Chloride 103 Carbon Dioxide 31.0 Anion Gap 5 BUN 29 H Creatinine 3.96 H Estim Creat Clear Calc 8.54 Est GFR (MDRD) Af Amer 16 L Est GFR (MDRD) Non-Af 13 L BUN/Creatinine Ratio 7.3 L Glucose 85 Calcium 8.3 L Phosphorus Magnesium Total Bilirubin 0.50 AST 32 ALT 21 Alkaline Phosphatase 158 H Lactate Dehydrogenase 342 H Troponin I < 0.015 Total Protein 8.0 Albumin 2.6 L Globulin 5.4 H Albumin/Globulin Ratio 0.5 L Lipase 28 L Serotonin Vitamin B12 Folate TSH Serum , Qual 05/09/19 05/10/19 05/10/19 15:29 05:20 05:20 WBC 7.4 RBC 3.14 L Hgb 9.7 L Hct 32.2 L MCV 102.5 H MCH 30.9 MCHC 30.1 L RDW Std Deviation 64.1 H RDW Coeff of Fabrice 17.0 H Plt Count 130 L MPV 11.5 Immature Gran % (Auto) 0.400 Neut % (Auto) 79.0 H Lymph % (Auto) 9.0 L [place] % (Auto) 9.8 Eos % (Auto) 1.1 Baso % (Auto) 0.7 Absolute Neuts (auto) 5.9 Absolute Lymphs (auto) 0.67 L Nucleated RBC % 0 Differential Comment Sodium 137 Potassium 5.0 Chloride 102 Carbon Dioxide 29.0 Anion Gap 6 BUN 31 H Creatinine 4.09 H Estim Creat Clear Calc 8.19 Est GFR (MDRD) Af Amer 15 L Est GFR (MDRD) Non-Af 12 L BUN/Creatinine Ratio 7.6 L Glucose 70 L Calcium 7.2 L Phosphorus 4.9 Magnesium 2.4 Total Bilirubin 0.40 AST 17 ALT 15 Alkaline Phosphatase 134 H Lactate Dehydrogenase Troponin I Total Protein 6.2 L Albumin 2.1 L Globulin 4.1 Albumin/Globulin Ratio 0.5 L Lipase Serotonin Vitamin B12 Folate > 100.00 H TSH 2.07 Serum , Qual NEGATIVE 05/10/19 05/10/19 05:20 05:28 WBC RBC Hgb Hct MCV MCH MCHC RDW Std Deviation RDW Coeff of Fabrice Plt Count MPV Immature Gran % (Auto) Neut % (Auto) Lymph % (Auto) [place] % (Auto) Eos % (Auto) Baso % (Auto) Absolute Neuts (auto) Absolute Lymphs (auto) Nucleated RBC % Differential Comment Sodium Potassium Chloride Carbon Dioxide Anion Gap BUN Creatinine Estim Creat Clear Calc Est GFR (MDRD) Af Amer Est GFR (MDRD) Non-Af BUN/Creatinine Ratio Glucose Calcium Phosphorus Magnesium Total Bilirubin AST ALT Alkaline Phosphatase Lactate Dehydrogenase Troponin I Total Protein Albumin Globulin Albumin/Globulin Ratio Lipase Serotonin Pending Vitamin B12 1044 H Folate TSH Serum , Qual Clinical Impression(s) from Imaging Studies Chest X-Ray 05/09/19 10:52 IMPRESSION: Stable moderate-sized left pleural effusion, cannot exclude associated left basilar atelectasis and/or pneumonia. Possible small right pleural effusion. Electronically Signed: Danielle Mike MD at 11:09 EST Tel , Service support , Chest Ultrasound 05/09/19 17:26 IMPRESSION: Bilateral pleural effusions, more on the left side, with loculation observed on the left side. Electronically Signed: Tex Stafford MD at 16:39 EST Tel [phone], Service support , KUB X-Ray 05/10/19 14:54 IMPRESSION: Good position of the distal end of the J-tube. Electronically Signed: Tex Stafford MD at 15:52 EST Tel [phone], Service support , Abdomen CT 05/10/19 17:33 IMPRESSION: Diffuse anasarca, ascites and bilateral pleural effusions as described above. Questionable recurrent mass to the left side and cephalad to the jejunostomy tube versus artifact. Possible involvement of the wall of the adjacent colon at the splenic flexure, clinical correlation recommended. If recurrence represents a clinical concern, follow-up with PET scanning or CT with intravenous and oral contrast in nonacute setting. Bony metastatic disease. Electronically Signed: Ivon Reveles MD at 0:47 EST , Service support , Current Medications Cyanocobalamin (Vitamin B12) 1,000 mcg IM Q30D [facility] Dronabinol (Marinol) 2.5 mg PO 1HR_ACHS [facility] Last Admin: 05/10/19 23:01 Dose: 2.5 mg Documented by: Gabapentin (Neurontin) 300 mg PO BIDCM [facility] Last Admin: 05/10/19 16:50 Dose: 300 mg Documented by: Glucagon () 1 mg IM .X1 PRN PRN Reason: Hypoglycemia Heparin Sodium (Porcine) (Heparin Na) 5,000 unit SC Q12 [facility] Last Admin: 05/10/19 23:01 Dose: 5,000 unit Documented by: Hydroxyzine HCl (Atarax Tablet) 10 mg PO Q8H PRN PRN Reason: ANXIETY Dextrose (Dextrose 10%-Water) 250 mls @ 999 mls/hr IV .Q16M PRN; Protocol PRN Reason: HYPOGLYCEMIA Metoprolol Tartrate (Lopressor (Beta Lucas)) 25 mg PO BID [facility] Last Admin: 05/10/19 23:03 Dose: 25 mg Documented by: Multivit/Ca Carb/B Cmplx/FA/Prenat (Nephrocaps, Renaphro) 1 capsule PO QHS [facility] Last Admin: 05/10/19 22:52 Dose: 1 capsule Documented by: Nystatin (Nystatin) 500,000 unit PO 4X/DAY [facility] Last Admin: 05/10/19 23:08 Dose: Not Given Documented by: Oxycodone HCl (Oxyir) 5 mg PO Q6H PRN PRN Reason: pain Last Admin: 05/10/19 23:05 Dose: 5 mg Documented by: Pantoprazole Sodium (Protonix) 40 mg PO BID [facility] Last Admin: 05/10/19 22:53 Dose: 40 mg Documented by: Prednisone () 5 mg PO DAILY@0800 [facility] Sodium Chloride () 10 - 40 ml IV UD PRN PRN Reason: SALINE FLUSH Last Admin: 05/10/19 15:03 Dose: 10 ml Documented by: Sucralfate (Carafate) 1 gm PO 1HR_ACHS [facility] Last Admin: 05/10/19 23:07 Dose: Not Given Documented by: Tizanidine HCl (Zanaflex) 4 mg PO QHS [facility] Last Admin: 05/10/19 22:53 Dose: 4 mg Documented by: Medical Necessity - Tobacco Use Smoking Status: Smoker, status unknown Assessment/Plan All Active Problems (Last Reviewed 05/09/19 @ 17:18 by Magaly Mcdaniel DO) Failure to thrive (Acute) History of gastrectomy (Acute) s/p left arteriovenous fistula creation (Acute ~05/06/18) Healthcare-associated pneumonia (Acute) history of failed renal transplant (Acute) Sepsis (Acute) JENNIFFER (acute kidney injury) (Resolved) History of renal transplant (Resolved) RECOMMENDATIONS: 1. We will coordinate thoracic surgery referral on outpatient basis. 2. No indication for repeat thoracentesis at this time. 3. Follow-up in the pulmonary medicine clinic as scheduled. 4. Will sign off at this time. Please call with any additional questions. IMPRESSIONS: 1. Pleural effusions/chronic hypoxemic respiratory failure The patient has had bilateral pleural effusions for quite some time. My concern has been that the left-sided pleural effusion was loculated in nature. The patient did undergo a thoracentesis of the right effusion in mid April which was transudative in nature. I have suspected that her effusions are likely the consequence of her end-stage renal disease and subsequent volume status coupled with her poor nutritional status. The patient has a free-flowing right pleural effusion, along with a loculated left-sided effusion with internal septations, based on her chest ultrasound. Options for intervention were discussed with the patient and included outpatient referral to thoracic surgery. This will be coordinated by our office staff. The patient will be contacted for an update after the holidays. I do not see an indication for repeat thoracentesis at this time. Per traditional Light's criteria, if at least one of the following three is fulfilled, the fluid would be considered an exudate: 1. Pleural fluid protein/serum protein ratio greater than 0.5 2. Pleural fluid LDH/serum LDH ratio greater than 0.6 3. Pleural fluid LDH greater than two thirds the upper limits of the laboratories normal serum LDH Based upon my review of the patient's pleural fluid analysis, along with serum LDH and total protein levels, the pleural fluid would be considered transudative in nature. This note was generated with Tellyation software. It may contain incorrect words, spelling, and punctuation that were not noted in checking the note before signing. Code Visit Inpatient E&M: 40776 Subs Hosp L2
[2019-05-11] MEDS: Sucralfate 1 GM Tablet PO ×2 (06:48→10:29)
[2019-05-11] MEDS: Dronabinol 2.5 MG Capsule PO ×3 (06:48→16:08)
[2019-05-11] MEDS: oxyCODONE 5 MG Tablet PO ×2 (06:53→16:08)
[2019-05-11 09:35] LABS: Hematocrit 31.4 % (37-47); Hemoglobin 9.4 g/dL (12.0-15.0); Mean Corp Hgb Conc 29.9 g/dL (32-36); Mean Corpuscular Hgb 30.8 pg (27.0-32.0); Mean Platelet Vol. 11.8 fl (6.2-12.0); POSITIVE COUNT YES; Platelet Count 88 K/mm3 (150-450); RBC Distribution Width CV 16.8 % (11.6-14.6); RBC Distribution Width SD 64.5 fl (35.1-43.9); Red Blood Count 3.05 M/mm3 (4.2-5.4); White Blood Count 6.2 K/mm3 (4.4-11.0)
[2019-05-11 10:24] LABS: Scan Indicated on CBC? Y/N YES- FLAGS NOTED
[2019-05-11] MEDS: predniSONE 5 MG Tablet PO (10:26)
[2019-05-11] MEDS: Gabapentin 300 MG Capsule PO (10:26)
[2019-05-11 10:27] VITALS: PULSE 82
[2019-05-11] MEDS: Metoprolol Tartrate 25 MG Tablet PO (10:27)
[2019-05-11] MEDS: NYSTATIN 500,000 UNIT/5 ML UDC 500000 UNIT PO (10:27)
[2019-05-11 10:28] LABS: Albumin, Serum 2.1 g/dL (3.2-5.0); BUN 20 mg/dL (7-18); BUN/Creat Ratio 5.8 RATIO (10-20); Calcium,Total 6.8 mg/dL (8.5-10.1); Chloride 101 mmol/L (98-107); Creatinine, Serum 3.42 mg/dL (0.55-1.02); EST Glomerular Filtration Rate 15 mL/min (>60); Est Glom Filt Rate - Afr Amer 18 mL/min (>60); Estimated Creatinine Clearance 9.53 ml/min; Glucose 83 mg/dL (74-106); Phosphorus 4.2 mg/dL (2.5-4.9); Potassium 5.3 mmol/L (3.5-5.1); Sodium Level 137 mmol/L (136-145)
[2019-05-11] MEDS: Pantoprazole Sodium 40 MG Tablet PO (10:29)
[2019-05-11 10:49] VITALS: BP 143/89; PULSE 68; RESP 16; TEMP 37.1; O2SAT 100
--- NOTE | 2019-05-11 11:42 | RAD_ITS ---
STUDY: X-RAY - ABDOMEN/PELVIS REASON FOR EXAM: Female, 48 years old. FEEDING TUBE FUNCTION PROBLEMS, SMALL BOWEL OBSTRUCTION? TECHNIQUE: 3 views of the abdomen COMPARISON: CT scan of 05/10/2019. FINDINGS: Pleural effusion observed in bilateral visualized lung bases. There is an unremarkable bowel gas pattern. There is no demonstrated free abdominal air. G-tube in place. The visualized spleen and kidneys are grossly normal in size and morphology. Mild hepatomegaly. IUD in place. Post surgical change in the abdomen. Normal soft tissue structures. Unremarkable visualized osseous structures. RAD/Abd Decub and/or Erect(Portabl IMPRESSION: Overall nonobstructive bowel gas pattern. Mild hepatomegaly. Pleural effusion in the lung bases bilaterally. Prior abdominal surgery. IUD in place. Electronically Signed: Tex Stafford MD at 15:48 EST Tel [phone], Service support ,
--- NOTE | 2019-05-11 15:18 | DCINST_ITS ---
- Discharge Diagnoses Current Active Problems: Current Active and Chronic Problems (Last Reviewed 05/09/19 @ 17:18 by Magaly Mcdaniel DO) Failure to thrive (Acute) You will use the following diet at home:: Regular Your food should be the consistency of: Regular Your liquids should be the consistency of: Regular/Thin Discharge Activity: Return to Normal Activity Call your doctor if you observe: Fever of 101 or Higher, Shortness of breath, Dizziness, Fainting spells, Swelling in the ankles, Chest pain, Increased palpitations (irregular heartbeat) Allergies/Adverse Reactions: Allergies Sulfa (Sulfonamide Antibiotics) Allergy (Verified 05/09/19 10:22) Hives NSAIDS (Non-Steroidal Anti-Inflamma Adverse Reaction (Verified 05/09/19 10:22) Other Medications to take at Discharge Cyanocobalamin [Vitamin B12] 1,000 mcg IM Q30D 07/03/17 Dronabinol [Marinol] 2.5 mg PO 4X/DAY 07/03/17 Gabapentin [Neurontin] 300 mg PO BIDCM 07/03/17 Levonorgestrel [Mirena] 1 ea VAGINAL UD 07/03/17 Vits [Prenatabs FA ] 1 tab PO DAILY 07/03/17 Tizanidine HCl [Zanaflex] 4 mg PO QHS 04/27/18 Biotin 10,000 mcg PO DAILY 05/05/18 oxycodone-acetaminophen 5 mg-325 mg tablet 1 tab PO Q6H 06/30/18 pantoprazole 40 mg tablet,delayed release 40 mg PO BID 07/22/18 Hydroxyzine HCl 10 mg PO Q8 PRN 09/22/18 Metoprolol Tartrate [Lopressor (beta sonya)] 25 mg PO BID 09/22/18 Folic Acid/Vit B Complex and C [Renal Vitamin Tablet] 0.8 mg PO QHS 11/18/18 sucralfate 1 gram tablet 1 g PO QACHS 11/18/18 Prednisone 5 mg PO DAILY 05/09/19 Primary Care Physician: Deb Gregory MD [Primary Care Provider] - Please follow up with your Primary Care Physician in: 3-5 days Test Results: Test results from this visit will be discussed in further detail at your follow- up appointment, if applicable. Please Follow Up With: Thoracic Surgery Please Follow Up With: [facility] Surgeon
[2019-05-11 15:19] VITALS: BP 141/88; PULSE 74; RESP 18; TEMP 37.1; O2SAT 100
--- NOTE | 2019-05-11 15:19 | PCM.DC.SUM ---
Discharge Date and Diagnosis - Problem List Patient Problems: Active and Suspected Problems (Last Reviewed 05/09/19 @ 17:18 by Magaly Mcdaniel DO) Failure to thrive (Acute) Date of Admission: 05/09/19 Date of Discharge: 05/11/19 - Primary Discharge Diagnosis Active and Suspected Problems (Last Reviewed 05/09/19 @ 17:18 by Magaly Mcdaniel DO) Failure to thrive (Acute) - Secondary Discharge Diagnosis Chronic Problems (Last Reviewed 05/09/19 @ 17:18 by Magaly Mcdaniel DO) ESRD on dialysis (Chronic) Pleural effusion (Chronic) Chronic renal failure, stage 5 (Chronic) Problem with dialysis access (Chronic) Renal transplant rejection (Chronic) GERD (gastroesophageal reflux disease) (Chronic) History of cytomegalovirus infection (Chronic) Pneumonia, bacterial (Chronic) CKD (chronic kidney disease) stage 4, GFR 15-29 ml/min (Chronic) History of gastric cancer (Chronic) Essential hypertension (Chronic) Anemia, chronic renal failure (Chronic) Hospital Course and Treatment Imaging Results: CXR: IMPRESSION: Stable moderate-sized left pleural effusion, cannot exclude associated left basilar atelectasis and/or pneumonia. Possible small right pleural effusion. US Chest: IMPRESSION: Bilateral pleural effusions, more on the left side, with loculation observed on the left side. KUB: IMPRESSION: Good position of the distal end of the J-tube. CT Abd: IMPRESSION: Diffuse anasarca, ascites and bilateral pleural effusions as described above. Questionable recurrent mass to the left side and cephalad to the jejunostomy tube versus artifact. Possible involvement of the wall of the adjacent colon at the splenic flexure, clinical correlation recommended. If recurrence represents a clinical concern, follow-up with PET scanning or CT with intravenous and oral contrast in nonacute setting. Bony metastatic disease. Consults: Nephrology Pulmonology Operations: None Summary of Care Provided: Per HPI: Ms Valverde is a 48 year old F who presented to the ED on 05/09 06/20 not feeling well in the last 48 hrs. she has had sweats and nausea. She also reports that she was dialyzed yesterday and became hypotensive and fluid had to be replaced. She states that she was sweating a lot through the night and has had this issue on a off over the last month but it was more pronounced last night. She has been having issues with tolerating her TF. She typically runs these at night and then eats what she can during the day but over the last month she has had nausea and discomfort while running her TF she she has not been running her TF much over the last month and has been eating what she can. This j-tube was placed this past summer as she was not tolerating PO intake then much either. She is currently about 60 lbs and states she usually weighs about 70 lbs and was never over 90 lbs since her gastrectomy. She has tried to get a hold of her Drs at [facility] but states no one has returned her calls. VSS in the ED. Hospital Course: 1. Failure to thrive/severe malnutrition/chills and [id number] female status post failed renal transplant as well and has a history of a partial gastric resection for stage I gastric cancer presents with failure to thrive chronic, malnutrition and just overall not feeling well. Initial KUB was unremarkable so she had a follow-up CT scan of her abdomen pelvis which showed a possible mass in the left upper quadrant as well as mottling of her vertebral bodies which could be secondary to dialysis given the fact that her cancer was highly curable at the time of her resection. I did discuss the results of the CT scan with her and let her know that making an appointment with her oncologist is not unreasonable though I do not believe that she has metastatic disease from her gastric cancer, I did relay the information to her oncologist. A KUB with contrast did demonstrate a contrast filled mass in the left upper quadrant similar to where the mass on the CT scan was and a repeat abdominal x-ray today demonstrates that the contrast has progressed through her intestines. This makes the mass less likely to be extravasation from a misplaced J-tube. At this time she is feeling a little bit better and would prefer to go home for the holidays. B12 and folate were normal as was TSH, would recommend continuing Marinol. I discussed with her the need to figure out a way to improve her nutritional status with possibly clear Ensure and other high-calorie foods. I discussed the plan for discharge with both her and her , and both were in agreement and expressed understanding. 2. Pleural effusion-pulmonology was consulted for her bilateral pleural effusions, on the left it looks like it is a loculated effusion based on a chest ultrasound, and she will need to follow-up with a thoracic surgeon for evacuation of this effusion which was being set up by pulmonology. Her right pleural effusion was drained last week and was found to be transudative likely secondary to her hypoalbuminemia from her malnutrition and hemodialysis. 3. Anemia of chronic disease-hemoglobin did drop after dialysis, and she states that during dialysis they lost a little bit of blood, her hemoglobin does appear to have stabilized today. 4. Her other medical diagnoses were evaluated and her home medications were continued where appropriate Patient Problems: Active and Suspected Problems (Last Reviewed 05/09/19 @ 17:18 by Magaly Mcdaniel DO) Failure to thrive (Acute) - Physical Exam Vitals/I&O's: Vital Signs Temp Pulse Resp BP Pulse Ox 98.8 F 68 16 143/89 H 100 05/11/19 10:49 05/11/19 10:49 05/11/19 10:49 05/11/19 10:49 05/11/19 10:49 Oxygen Flow Rate (L/min) 2 Oxygen Delivery Method Nasal Cannula Weight: 65 lb 7.637 oz Body Mass Index (BMI) 12.2 Finger Stick Blood Glucose 104 Intake and Output for Last 24 Hours 05/09/19 05/10/19 05/11/19 23:59 23:59 23:59 Intake Total 1550 / 1550 300 / 500 400 / 400 Output Total 900 / 900 Balance 1550 / 1550 -600 / -400 400 / 400 General: Alert, Oriented x3, Cooperative, No apparent distress, - - Cachectic HEENT: Atraumatic, PERRLA, EOMI, Normocephalic Oral: Moist Mucosa Neck: Supple, No JVD Lungs: Clear to auscultation, Normal air movement, No rhonchi, No wheeze, No rales, Diminished Cardiovascular: Regular rate, Regular Rhythm, Normal S1, Normal S2, No murmurs Abdomen: Soft, Non Tender, Non-Distended, No Hepato-splenomegaly, - - G-tube in place Extremities: No edema, Capillary Refill Less than 3 Seconds Skin: No rashes, No breakdown, - - Left upper extremity fistula Musculoskeletal: Cachexia Neurological: Neuro grossly intact, Sensory exam intact to light touch and pain Psych/Mental Status: Normal Affect, Appropriate Microbiology Past 72 Hours 05/09/19 13:30 Blood Culture (Wb) - Right Hand Blood Culture - Preliminary No growth in 48 hours. 05/09/19 13:20 Blood Culture (Wb) - Right Forearm Blood Culture - Preliminary No growth in 48 hours. Laboratory Results 05/11/19 09:22: WBC 6.2, RBC 3.05 L, Hgb 9.4 L, Hct 31.4 L, MCV 103.0 H, MCH 30.8, MCHC 29.9 L, RDW Std Deviation 64.5 H, RDW Coeff of Fabrice 16.8 H, Plt Count 88 L, MPV 11.8, Differential Comment 05/11/19 09:22: Sodium 137, Potassium 5.3 H, Chloride 101, Carbon Dioxide 31.0, BUN 20 H, Creatinine 3.42 H, Estim Creat Clear Calc 9.53, Est GFR (MDRD) Af Amer 18 L, Est GFR (MDRD) Non-Af 15 L, BUN/Creatinine Ratio 5.8 L, Glucose 83, Calcium 6.8 L, Phosphorus 4.2, Albumin 2.1 L Current Medications Cyanocobalamin (Vitamin B12) 1,000 mcg IM Q30D [facility] Dronabinol (Marinol) 2.5 mg PO 1HR_ACHS [facility] Last Admin: 05/11/19 10:48 Dose: 2.5 mg Documented by: Gabapentin (Neurontin) 300 mg PO BIDCM [facility] Last Admin: 05/11/19 10:26 Dose: 300 mg Documented by: Glucagon () 1 mg IM .X1 PRN PRN Reason: Hypoglycemia Heparin Sodium (Porcine) (Heparin Na) 5,000 unit SC Q12 [facility] Last Admin: 05/11/19 10:41 Dose: Not Given Documented by: Hydroxyzine HCl (Atarax Tablet) 10 mg PO Q8H PRN PRN Reason: ANXIETY Dextrose (Dextrose 10%-Water) 250 mls @ 999 mls/hr IV .Q16M PRN; Protocol PRN Reason: HYPOGLYCEMIA Metoprolol Tartrate (Lopressor (Beta Lucas)) 25 mg PO BID [facility] Last Admin: 05/11/19 10:27 Dose: 25 mg Documented by: Multivit/Ca Carb/B Cmplx/FA/Prenat (Nephrocaps, Renaphro) 1 capsule PO QHS [facility] Last Admin: 05/10/19 22:52 Dose: 1 capsule Documented by: Nystatin (Nystatin) 500,000 unit PO 4X/DAY [facility] Last Admin: 05/11/19 10:27 Dose: 500,000 unit Documented by: Oxycodone HCl (Oxyir) 5 mg PO Q6H PRN PRN Reason: pain Last Admin: 05/11/19 06:53 Dose: 5 mg Documented by: Pantoprazole Sodium (Protonix) 40 mg PO BID [facility] Last Admin: 05/11/19 10:29 Dose: 40 mg Documented by: Prednisone () 5 mg PO DAILY@0800 [facility] Last Admin: 05/11/19 10:26 Dose: 5 mg Documented by: Sodium Chloride () 10 - 40 ml IV UD PRN PRN Reason: SALINE FLUSH Last Admin: 05/10/19 15:03 Dose: 10 ml Documented by: Sucralfate (Carafate) 1 gm PO 1HR_ACHS [facility] Last Admin: 05/11/19 10:29 Dose: 1 gm Documented by: Tizanidine HCl (Zanaflex) 4 mg PO QHS [facility] Last Admin: 05/10/19 22:53 Dose: 4 mg Documented by: Discharge Activity: Return to Normal Activity Call your doctor if you observe: Fever of 101 or Higher, Shortness of breath, Dizziness, Fainting spells, Swelling in the ankles, Chest pain, Increased palpitations (irregular heartbeat) Home Medications: Medications to take at Discharge Cyanocobalamin [Vitamin B12] 1,000 mcg IM Q30D 07/03/17 Dronabinol [Marinol] 2.5 mg PO 4X/DAY 07/03/17 Gabapentin [Neurontin] 300 mg PO BIDCM 07/03/17 Levonorgestrel [Mirena] 1 ea VAGINAL UD 07/03/17 Vits [Prenatabs FA ] 1 tab PO DAILY 07/03/17 Tizanidine HCl [Zanaflex] 4 mg PO QHS 04/27/18 Biotin 10,000 mcg PO DAILY 05/05/18 oxycodone-acetaminophen 5 mg-325 mg tablet 1 tab PO Q6H 06/30/18 pantoprazole 40 mg tablet,delayed release 40 mg PO BID 07/22/18 Hydroxyzine HCl 10 mg PO Q8 PRN 09/22/18 Metoprolol Tartrate [Lopressor (beta lucas)] 25 mg PO BID 09/22/18 Folic Acid/Vit B Complex and C [Renal Vitamin Tablet] 0.8 mg PO QHS 11/18/18 sucralfate 1 gram tablet 1 g PO QACHS 11/18/18 Prednisone 5 mg PO DAILY 05/09/19 Primary Care Physician: Deb Gregory MD [Primary Care Provider] - Please follow up with your Primary Care Physician in: 3-5 days Please Follow Up With: Thoracic Surgery Please Follow Up With: [facility] General Surgeon Disposition: Home Minutes spent on discharge:: 35 Patient Condition:: Stable Medical Necessity - Tobacco Use Smoking Status: Smoker, status unknown Meaningful Use Info Meaningful Use Diagnoses (Choose all that apply): None applicable Code Visit Inpatient E&M: 89744 Disch Hosp
--- NOTE | 2019-05-13 16:16 | CASEMGMT ---
MONTY SANCHEZ F/U Phone Call LACE: 9 Strata: 3 Discharge date: 05/11/19 Call date: 05/13/19 Call time: [id number] Admission dx: Failure to thrive Pt states is doing 'ok' since discharge. Pt states no questions regarding discharge instructions/medications at this time. Pt states is working on getting f/u with PCP at this time. Pt states no suggestions for [facility] at this time and stated 'you did a great job for me.' Pt states no further questions/concerns/needs at this time. SStaten MONTY SANCHEZ
[2019-05-17 13:01] LABS: Serotonin, Serum 147 ng/mL (0-420)
== END 2019-05-11 16:33 | disposition home or self-care (01) | DRG 640 ==
LOC: ED 10:44 → MS3 18:31
PROVIDERS: Internal Medicine Nephrology; Admitting Provider Internal Medicine; Emergency Provider Emergency Medicine; Family Provider Internal Medicine; PCP Internal Medicine; Referring Provider Internal Medicine; Visit Provider Family Medicine
DX: R62.7 Adult failure to thrive (principal); N18.6 End stage renal disease; E43 Unspecified severe protein-calorie malnutrition; Z68.1 Body mass index [BMI] 19.9 or less, adult; B37.0 Candidal stomatitis; T86.12 Kidney transplant failure; J96.11 Chronic respiratory failure with hypoxia; J90 Pleural effusion, not elsewhere classified; I12.0 Hypertensive chronic kidney disease with stage 5 chronic kidney disease or end stage renal disease; T86.11 Kidney transplant rejection; D63.1 Anemia in chronic kidney disease; K21.9 Gastro-esophageal reflux disease without esophagitis; Z99.2 Dependence on renal dialysis; Z90.3 Acquired absence of stomach [part of]; Z92.3 Personal history of irradiation; Z93.4 Other artificial openings of gastrointestinal tract status; Z99.81 Dependence on supplemental oxygen; Z85.028 Personal history of other malignant neoplasm of stomach
CPT/HCPCS: 36415; 71045; 74018; 74019; 74176; 76604; 80053; 80069; 82607; 82746; 83615; 83690; 83735; 84100; 84260; 84443; 84484; 84703; 85025; 85027; 87040; 90937; 93005; 97802; 99285; J7030; A4216; G0257; Q5106

== ENCOUNTER → 2019-06-01 14:26 | Outpatient (CLI) | payer OTHER, MEDICARE, SELFPAY ==
[2019-06-01 13:20] VITALS: BMI 12.2
--- NOTE | 2019-06-01 14:33 | RAD_ITS ---
STUDY: X-RAY CHEST REASON FOR EXAM: Female, 48 years old. SOB TECHNIQUE: PA and lateral views of the chest. COMPARISON: Comparison is made with prior examination dated May 09, 2019. FINDINGS: Bilateral pleural effusions with bibasilar atelectasis and/or infiltration worse on the left side. There is no demonstrated pleural abnormality. Normal size heart. Normal mediastinum and jon. Normal visualized pulmonary arteries. Normal visualized aortic arch and descending thoracic aorta. There are diffuse degenerative changes of the visualized thoracic spine. Normal visualized ribs, clavicles, and shoulders. A gastrostomy tube is seen in situ. RAD/Chest PA and Lateral IMPRESSION: Bilateral pleural effusions left greater than right with bibasilar atelectasis. Electronically Signed: Vikas Haney, at 14:53 EST , Service support ,
== END ==
PROVIDERS: Family Provider Internal Medicine; PCP Internal Medicine; Referring Provider Nurse Practitioner Acute Care; Visit Provider Nurse Practitioner Acute Care
DX: J90 Pleural effusion, not elsewhere classified (principal)
CPT/HCPCS: 71046

== ENCOUNTER → 2019-06-09 13:11 | Outpatient (CLI) | payer OTHER, MEDICARE, SELFPAY ==
[2019-06-01 13:20] VITALS: BMI 12.2
[2019-06-01 17:53] LABS: International Normalized Ratio 1.2; Partial Thromboplast Time 34.5 Seconds (24.1-36.2); Prothrombin Time (Protime)PT. 14.6 SECONDS (11.7-14.9)
--- NOTE | 2019-06-09 13:12 | US_ITS ---
PROCEDURE: ULTRASOUND GUIDED THORACENTESIS. DATE: June 09, 2019.. INDICATION: Female, 48 years old. Right pleural effusion. PHYSICIAN: Vikas Haney M.D. PROCEDURE: The risks, benefits, and alternatives to the procedure were explained to the patient. The specific risks of bleeding, infection, and pneumothorax requiring chest tube insertion were discussed and accepted. Written informed consent was obtained. Ultrasonographic evaluation of the right lower pleural space was carried out. An adequate pocket was identified. The patient was placed in the sitting, upright position. The overlying skin was prepped and draped in sterile fashion. 1% lidocaine was administered subcutaneously for local anesthesia. Under ultrasound guidance, a 5 [place] thoracentesis needle/catheter system was advanced into the right posterior lower pleural fluid collection. Approximately 750 mL of light-colored fluid was drained. The catheter was removed, and a sterile dressing was applied. The patient tolerated the procedure well. A chest x-ray was ordered. US/Thoracentesis W US IMPRESSION: Ultrasound-guided right thoracentesis. Electronically Signed: Vikas Haney, at 14:41 EST , Service support ,
[2019-06-09 13:41] VITALS: BP 113/71; BP 130/79; BP 134/77; BP 142/83; PULSE 79; PULSE 80; PULSE 81; RESP 16; O2SAT 100
--- NOTE | 2019-06-09 13:58 | RAD_ITS ---
STUDY: X-RAY CHEST REASON FOR EXAM: Female, 48 years old. Post thorax TECHNIQUE: AP inspiration and expiration views. COMPARISON: Comparison is made with prior study dated November 30, 2019. FINDINGS: The patient is status post right thoracentesis. There is no evidence of pneumothorax. Small residual right pleural effusion. Stable left pleural effusion with underlying atelectasis and/or infiltration. RAD/Chest Insp/Exp 2 View IMPRESSION: No evidence of pneumothorax on the postthoracentesis examination. Electronically Signed: Vikas Haney, at 14:23 EST , Service support ,
== END ==
PROVIDERS: Family Provider Internal Medicine; PCP Internal Medicine; Referring Provider Nurse Practitioner Acute Care; Visit Provider Nurse Practitioner Acute Care
DX: J90 Pleural effusion, not elsewhere classified (principal)
CPT/HCPCS: 32555; 36415; 71046; 85610; 85730

== ENCOUNTER → 2019-07-01 14:22 | Outpatient (CLI) | payer OTHER, MEDICARE, SELFPAY ==
[2019-06-01 13:20] VITALS: BMI 12.2
--- NOTE | 2019-07-01 14:48 | US_ITS ---
STUDY: SUPERFICIAL ULTRASOUND - ASSESSMENT OF THE PLEURAL EFFUSIONS. REASON FOR EXAM: Female, 48 years old. PLEURAL EFFUSION TECHNIQUE: A superficial ultrasound was performed with real-time and static stock[place]-scale imaging. COMPARISON: None. FINDINGS: Moderate amount of right pleural effusion. Complex cystic and solid density in the left pleural space. US/Chest IMPRESSION: Moderate right pleural effusion. Electronically Signed: Vikas Haney, at 12:59 EST , Service support ,
== END ==
PROVIDERS: PCP Internal Medicine; Referring Provider Nurse Practitioner Acute Care; Visit Provider Nurse Practitioner Acute Care
DX: J90 Pleural effusion, not elsewhere classified (principal)
CPT/HCPCS: 76604

== ENCOUNTER → 2019-07-02 13:30 | Outpatient (CLI) | payer OTHER, MEDICARE, SELFPAY ==
[2019-06-01 13:20] VITALS: BMI 12.2
--- NOTE | 2019-07-02 13:33 | US_ITS ---
PROCEDURE: ULTRASOUND GUIDED THORACENTESIS. DATE: July 02, 2019. INDICATION: Female, 48 years old. Right pleural effusion. PHYSICIAN: Vikas Haney M.D. PROCEDURE: The risks, benefits, and alternatives to the procedure were explained to the patient. The specific risks of bleeding, infection, and pneumothorax requiring chest tube insertion were discussed and accepted. Written informed consent was obtained. Ultrasonographic evaluation of the right lower pleural space was carried out. An adequate pocket was identified. The patient was placed in the sitting, upright position. The overlying skin was prepped and draped in sterile fashion. 1% lidocaine was administered subcutaneously for local anesthesia. Under ultrasound guidance, a 5 [place] thoracentesis needle/catheter system was advanced into the right posterior lower pleural fluid collection. Approximately 700 mL of marla-colored fluid was drained. The catheter was removed, and a sterile dressing was applied. The patient tolerated the procedure well. A chest x-ray was ordered. US/Thoracentesis W US IMPRESSION: Ultrasound-guided right thoracentesis. Electronically Signed: Vikas Haney, at 14:33 EST , Service support ,
--- NOTE | 2019-07-02 13:45 | RAD_ITS ---
STUDY: X-RAY CHEST REASON FOR EXAM: Female, 48 years old. POST THORA RIGHT SIDE TECHNIQUE: AP inspiration and expiration views. COMPARISON: Comparison is made with prior study dated June 09, 2019. FINDINGS: The patient is status post right thoracentesis. Minimal residual blunting of the right costophrenic angle. No evidence of pneumothorax. Stable pleural parenchymal changes at the left lung base. RAD/Chest Insp/Exp 2 View IMPRESSION: Status post right thoracentesis. There is no evidence of pneumothorax. Electronically Signed: Vikas Haney, at 14:26 EST , Service support ,
[2019-07-02 14:01] VITALS: BP 160/86; BP 164/98; BP 165/82; PULSE 67; PULSE 77; PULSE 82; RESP 16; RESP 20; TEMP 36.7; O2SAT 100
== END ==
PROVIDERS: PCP Internal Medicine; Referring Provider Thoracic Surgery (Cardiothoracic Vascular Surgery); Visit Provider Thoracic Surgery (Cardiothoracic Vascular Surgery)
DX: J90 Pleural effusion, not elsewhere classified (principal)
CPT/HCPCS: 32555; 71046

== ENCOUNTER 2019-07-14 08:49 | Inpatient (IN) | payer OTHER, MEDICARE, SELFPAY ==
[2019-06-01 13:20] VITALS: BMI 12.2
[2019-07-14] VITALS (33 sets, daily range): BP systolic 137–187; BP diastolic 78–130; PULSE 95–125; RESP 14–27; TEMP 36.3–36.6; O2SAT 88–100; BMI 13.1; BMI 13.3
--- NOTE | 2019-07-14 09:01 | EKG12_ITS ---
Test Reason : SOB Blood Pressure : / mmHG Vent. Rate : 100 BPM Atrial Rate : 100 BPM P-R Int : 150 ms QRS Dur : 092 ms QT Int : 370 ms P-R-T Axes : 057 050 196 degrees QTc Int : 477 ms Normal sinus rhythm Possible Left atrial enlargement Nonspecific ST and T wave abnormality Prolonged QT Abnormal ECG Confirmed by BETTY CASTRO, ILDA ([id number]), associate entertainment editor VANESSA BRENNAN ([id number]) on 07/19/2019 8:41:46 AM Referred By: KHOI Confirmed By:CANDE HERNÁNDEZ MD
--- NOTE | 2019-07-14 09:02 | ED.VIS.GEN ---
History of Present Illness Chief Complaint: Shortness of Breath Informant: Patient Narrative: Presents with shortness of breath that is been worse over the past few weeks but much worse today. She has a complicated medical history with a history of stomach cancer in remission but she is having quite a bit of problem gaining weight, she has a gastric tube and she gets feedings through it, she has chronic pleural effusions, she also is a dialysis patient, she felt too ill to go yesterday last her last dialysis was 4 days ago. She denies any fever chills cough or upper airway congestion. She was found to be hypoxic and placed on a nonrebreather mask right away per nurses, she is slightly improved. Past Medical History - Allergies and Home Meds Allergies/Adverse Reactions: Allergies Sulfa (Sulfonamide Antibiotics) Allergy (Verified 06/01/19 13:07) Hives NSAIDS (Non-Steroidal Anti-Inflamma Adverse Reaction (Verified 06/01/19 13:07) Other Primary Care Physician: Deb Gregory MD [Primary Care Provider] - Past Medical History: - - Stomach cancer, hemodialysis Friday, chronic pleural effusions, malnourishment Surgical History: - - Failed kidney transplant from adoptive mother, AV fistula Lives: Spouse/ Significant Other Smoking Status: Former smoker - Family History Maternal Family History: Reports: No pertinent history - Patient adopted Review of Systems All systems negative except as indicated General: Denies: Fever ENT: Denies: Rhinorrhea Cardiovascular: Denies: Chest pain Respiratory: Reports: Dyspnea, Cough, Sputum Gastrointestinal: Denies: Abdominal pain, Nausea, Vomiting Genitourinary: Denies: Dysuria Musculoskeletal: Denies: Myalgias Skin: Denies: Rash Neurological: Reports: - - No focal weakness, she does have generalized weakness Hematologic: Denies: Easy bruising Allergy: Denies: Swelling of the mouth, Swelling of the tongue Physical Exam Vital Signs/Narrative: Vital Signs Temp Pulse Resp BP Pulse Ox 07/14/19 08:53 24 H 92 07/14/19 08:50 97.4 F L 102 H 22 H 184/109 H 88 Inital Vital Signs reviewed: Yes General: - - She appears chronically ill she is quite thin and cachectic. Eyes: Perrl ENT: -. Negative for: Nasal congestion Neck: Supple Cardiovascular: Regular rhythm Respiratory: - - She is tachypneic, she has diminished breath sounds bilaterally. she has some coarse breath sounds also bilaterally. Abdomen: Soft Back: Nontender, - - Scoliosis. Negative for: CVA tenderness Extremities: No edema, - - He has been left upper arm dialysis fistula with a palpable thrill Skin: Normal color Neurological: Alert, Oriented x3 Diagnostic/Tx/Re-eval Chest X-Ray - ED: 1 View, Read by ED Physician, Read by Radiologist, - - Patient has bilobar right-sided pneumonia she also has bilateral pleural effusions. - Rhythm Strip Rhythm Strip: Sinus Rhythm Rate: 100 Ectopy: None - EKG Initial EKG Interpretation: Sinus Rhythm, - - Rate 100. Normal MN interval, slightly prolonged QTc interval. Widespread nonspecific ST changes. Interpreted by emergency doctor - Medical Decision Making Patient is found to have right-sided bilobar pneumonia. She also has influenza. She decompensated and she could not breathe very well, at that time she was intubated. Antibiotics and Tamiflu were started. Patient will need dialysis, she was hyperkalemic and I gave her bicarb and calcium. I talked to the ICU physician and the hospitalist and patient will be admitted to the ICU I stressed the importance of needing stat dialysis. - Critical Care Time Critical care time (excluding procedures): 30-74 minutes, Discussing w/Patient &/or Family/Asian Studies Program Chair, Discussing w/Consultants, Arranging Admission or Transfer, Performing Direct Patient Care at Bedside Procedures Procedure(s): Endotracheal intubation: 30 mg of rocuronium, 10 mg of etomidate were given. Patient was pre-oxygenating well however she desaturated quite quick after the paralytic she was intubated her pulse ox stayed in the 80s until after I intubated her, it then improved to the high 90s. Patient tolerated procedure well post intubation x-ray is pending. Patient had good color change and bilateral breath sounds afterwards ED Disposition - Plan for ED Patient: Disposition: Acute Care [facility] Diagnosis: Respiratory failure, Pneumonia Referrals: Deb Gregory MD [Primary Care Provider] -
--- NOTE | 2019-07-14 09:09 | RAD_ITS ---
EXAM DESCRIPTION: PORTABLE AP CHEST CLINICAL HISTORY: 48 years Female, lethargy, sob, phlegm lethargy, sob, phlegm COMPARISON: Previous portable chest obtained on 07/02/2019 FINDINGS: Mild dextroscoliosis is noted involving the mid thoracic spine. The rest of the thorax is intact. The heart and mediastinum appear to be within normal limits. A right upper lobe pneumonic consolidation is now identified. A patchy alveolar infiltrate likely representing a pneumonic consolidation is also seen in the right lower lobe. In addition there is a moderate-sized right lung base pleural effusion. A moderate-sized loculated left pleural effusion is identified which was seen previously and is not significantly changed. RAD/Chest 1 View (Portable) IMPRESSION: 1. New development of a right upper lobe and right lung base pneumonic consolidations. 2. Bibasilar pleural effusions are identified which are unchanged. Electronically Signed: Vijay Shakns, at 9:20 EST Tel , Service support ,
[2019-07-14 10:12] LABS: Absolute Lymphocyte Count 0.22 X10^3/uL (0.83-4.51); Absolute Neutrophil Count 10.9 X10^3/uL (2.0-7.7); Basophil# 0.02 X10^3/uL; Basophil% 0.2 % (0-1); Eosinophil# 0.09 X10^3/uL; Eosinophils% 0.8 % (0-5); Hematocrit 38.7 % (37-47); Hemoglobin 12.6 g/dL (12.0-15.0); Lymphocyte # 0.22 X10^3/ul (4.0); Lymphocyte % 1.9 % (19-41); Mean Corp Hgb Conc 32.6 g/dL (32-36); Mean Corpuscular Hgb 34.7 pg (27.0-32.0); Mean Corpuscular Volume 106.6 fL (81-99); Mean Platelet Vol. 12.4 fl (6.2-12.0); Monocyte# 0.32 X10^3/uL; Monocyte% 2.8 % (0-10); NRBC Flagged by Analyzer 0.3 % (0-5); Neutrophil # 10.89 X10^3/uL (2.7-7.7); Neutrophil % 93.7 % (47-70); POSITIVE DIFFERENTIAL YES; Platelet Count 116 K/mm3 (150-450); RBC Distribution Width CV 14.6 % (11.6-14.6); RBC Distribution Width SD 57.1 fl (35.1-43.9); Red Blood Count 3.63 M/mm3 (4.2-5.4); White Blood Count 11.6 K/mm3 (4.4-11.0)
[2019-07-14 10:13] LABS: Differential Indicated SCAN CRITERIA MET
[2019-07-14 10:26] LABS: Partial Thromboplast Time 40.1 Seconds (24.1-36.2)
--- NOTE | 2019-07-14 10:37 | ED.RN ---
blood obtained after lab attempt.. still need ua. original partial blood that lab recieved. potassium 6.1. bun 108 dr cool
[2019-07-14 10:39] LABS: ALB/GLOB Ratio 0.5 RATIO (0.9-2.4); AST(SGOT) 76 U/L (15-37); Alanine Aminotransfer ALT/SGPT 85 U/L (13-56); Albumin, Serum 2.5 g/dL (3.2-5.0); Alkaline Phosphatase 312 U/L (45-117); Anion Gap 12 (5-15); BUN 108 mg/dL (7-18); BUN/Creat Ratio 17.2 RATIO (10-20); Calcium,Total 7.7 mg/dL (8.5-10.1); Chloride 97 mmol/L (98-107); Creatinine, Serum 6.29 mg/dL (0.55-1.02); EST Glomerular Filtration Rate 8 mL/min (>60); Est Glom Filt Rate - Afr Amer 9 mL/min (>60); Estimated Creatinine Clearance 5.13 ml/min; Globulin 4.9 g/dL (2.2-4.2); Glucose 45 mg/dL (74-106); Potassium 6.1 mmol/L (3.5-5.1); Protein, Total 7.4 g/dL (6.4-8.2); Sodium Level 132 mmol/L (136-145)
[2019-07-14 10:46] LABS: Macrocytosis 1+; Ovalocyte RARE; Polychromasia RARE; Schistocytes RARE
--- NOTE | 2019-07-14 10:58 | ED.RN ---
unable to get ua. physician wants urine prior to antibiotics
[2019-07-14] MEDS: Ondansetron 4 MG/2 ML Vial IV (11:17)
--- NOTE | 2019-07-14 11:19 | ED.RN ---
unable to get cath in. pt decompensating so we are starting antibiotics. pt being intubated and there were several people that had to get blood drawn
[2019-07-14] MEDS: Rocuronium Bromide 50 MG/5 ML Vial 30 MG IV (11:22)
[2019-07-14] MEDS: Etomidate 20 MG/10 ML Vial 10 MG IV (11:22)
[2019-07-14 11:37] LABS: Lactic Acid 2.3 mmol/L (0.4-1.9)
[2019-07-14] MEDS: Vancomycin IV 500 MG/100 ML BAG 100 MG IV (11:41)
[2019-07-14 11:42] LABS: Mucous, Urine 0 SEEN /hpf (<or=2+); Squamous Epithelial Cells - UA 0 SEEN /hpf (5-10); White Blood Cells 0 SEEN /hpf (0-5)
[2019-07-14] MEDS: Propofol 10MG/Ml 1,000 MG/100 ML Bottle 1.8 MG CONT INF ×2 (11:46→22:15)
[2019-07-14 11:50] LABS: Color, Urine Yellow (Yellow); Glucose, Dipstick Normal (Normal); Ketone-Dipstick Negative (Negative); Leukocyte Esterase-Dipstick Negative /ul (Negative); Nitrite-Dipstick Negative (Negative); Occult Blood-Urine 10 /ul (Negative); Protein-Dipstick 100 mg/dl (Negative); Specific Gravity, Urine 1.015 (1.002-1.030); Urine Bilirubin Dipstick Negative (Negative); Urine Clarity Sl. Cloudy (Clear); Urine Urobilinogen Normal (Normal)
[2019-07-14 11:51] LABS: Bacteria RARE /hpf (None Seen); Red Blood Cells-Urine 0-5 SEEN /hpf (0-5)
--- NOTE | 2019-07-14 11:55 | RAD_ITS ---
We are attempting to reach an attending provider to discuss findings. An addendum with communication details will be sent when the communication is complete. EXAM DESCRIPTION: PORTABLE AP CHEST CLINICAL HISTORY: 48 years Female, ETT AND OG TUBE PLACEMENT ETT AND OG TUBE PLACEMENT COMPARISON: Previous portable chest obtained earlier on 07/14/2019 at 9:20 AM FINDINGS: The endotracheal tube is noted in place at the carinal bifurcation and this should be pulled back 2 cm. An NG tube is also seen with its tip in the stomach. The rest of the thorax is intact.The heart and mediastinum appear to be within normal limits. There is pneumonic consolidation in the right upper lobe and in the right lung base which was noted previously and is unchanged. Bibasilar pleural effusions are noted more pronounced on the left. This also is unchanged. RAD/Chest 1 View (Portable) IMPRESSION: 1. NG tube noted in place in good position. 2. Endotracheal tube is noted in place with its tip at the carinal bifurcation. This is a low position in the endotracheal tube should be withdrawn approximately 2 cm 3. Right lung pneumonic consolidations which are unchanged. 4. Moderate-sized bibasilar pleural effusions which are unchanged. Electronically Signed: Vijay Dimitris, at 12:42 EST Tel , Service support ,
--- NOTE | 2019-07-14 11:57 | PCM.HP.STD ---
Problem List (1) Pneumonia Status: Acute Qualifiers: Laterality: right Lung location: upper lobe of lung (2) Influenza Status: Acute (3) Respiratory failure Status: Acute Qualifiers: Chronicity: acute (4) Anemia, chronic renal failure Status: Chronic Qualifiers: Chronic kidney disease stage: stage 4 (severe) Qualified Code(s): N18.4 - Chronic kidney disease, stage 4 (severe); D63.1 - Anemia in chronic kidney disease (5) ESRD on dialysis Status: Chronic (6) Essential hypertension Status: Chronic (7) Failure to thrive Status: Chronic (8) GERD (gastroesophageal reflux disease) Status: Chronic Qualifiers: Esophagitis presence: without esophagitis Qualified Code(s): K21.9 - Gastro-esophageal reflux disease without esophagitis (9) Healthcare-associated pneumonia Status: Acute (10) history of failed renal transplant Status: Chronic (11) History of gastrectomy Status: Chronic (12) History of gastric cancer Status: Chronic (13) Pleural effusion Status: Chronic (14) Renal transplant rejection Status: Chronic (15) s/p left arteriovenous fistula creation Status: Chronic (16) Sepsis Status: Acute Qualifiers: Sepsis type: sepsis due to unspecified organism Severe sepsis acute organ dysfunction type: acute respiratory failure Acute respiratory failure type: with hypoxia Severe sepsis shock status: without septic shock History of Present Illness Date of Admission: 07/14/19 Chief Complaint: Increasing lethargy and shortness of breath Patient is a 48-year-old lady presented to the emergency department with progressive generalized weakness lethargy and shortness of breath. Patient has significant past cardiac history including gastric CA status post gastrectomy, end-stage renal disease with failed renal transplant currently on hemodialysis. Patient apparently missed dialysis a day prior to coming in. Family noticed that patient was getting increasingly lethargic. Patient patient is at home with who was diagnosed with pneumonia a day prior to coming in. At the time of my assessment patient was on the events patient could therefore not provide any further history history was therefore taken from patient's parents. In the emergency department was diagnosed with acute influenza A. Subsequent imaging studies obtained demonstrated New development of a right upper lobe and right lung base pneumonic consolidations. Bibasilar pleural effusions are identified which are unchanged. In view of worsening respiratory status patient was intubated and admitted to the intensive care unit for further management Past Medical History Past Medical History (Chronic Problems): Chronic Problems (Last Reviewed 06/01/19 @ 13:26 by Laurel Oh, CORPORATE TRAINER-C) Failure to thrive (Chronic) History of gastrectomy (Chronic) s/p left arteriovenous fistula creation (Chronic ~05/06/18) ESRD on dialysis (Chronic) Pleural effusion (Chronic) Renal transplant rejection (Chronic) GERD (gastroesophageal reflux disease) (Chronic) history of failed renal transplant (Chronic) History of gastric cancer (Chronic) Essential hypertension (Chronic) Anemia, chronic renal failure (Chronic) Medical History: Medical History (Last Reviewed 07/14/19 @ 12:[address] Jaocb Boswell MD) History of gastrectomy (Chronic) Z90.3 Problem with dialysis access (Resolved) T82.898A Renal transplant rejection (Chronic) T86.11 GERD (gastroesophageal reflux disease) (Chronic) K21.9 History of cytomegalovirus infection (Resolved) Z86.19 history of failed renal transplant (Chronic) Sepsis (Acute) A41.9 Pneumonia, bacterial (Resolved) J15.9 JENNIFFER (acute kidney injury) (Inactive) N17.9 CKD (chronic kidney disease) stage 4, GFR 15-29 ml/min (Inactive) N18.4 History of gastric cancer (Chronic) Z85.028 Essential hypertension (Chronic) I10 Anemia, chronic renal failure (Chronic) N18.9, D63.1 Allergies Sulfa (Sulfonamide Antibiotics) Allergy (Verified 06/01/19 13:07) Hives NSAIDS (Non-Steroidal Anti-Inflamma Adverse Reaction (Verified 06/01/19 13:07) Other Home Medications: Ambulatory Orders Medication Instructions Recorded Cyanocobalamin [Vitamin B12] 1,000 mcg IM Q30D 07/03/17 Dronabinol [Marinol] 2.5 mg PO 4X/DAY 07/03/17 Gabapentin [Neurontin] 300 mg PO BIDCM 07/03/17 Levonorgestrel [Mirena] 1 ea VAGINAL UD 07/03/17 Vits [Prenatabs FA ] 1 tab PO DAILY 07/03/17 Tizanidine HCl [Zanaflex] 4 mg PO QHS 04/27/18 Biotin 10,000 mcg PO DAILY 05/05/18 oxycodone-acetaminophen 5 mg-325 1 tab PO Q6H 06/30/18 mg tablet pantoprazole 40 mg tablet,delayed 40 mg PO BID 07/22/18 release Hydroxyzine HCl 10 mg PO Q8 PRN 09/22/18 Metoprolol Tartrate [Lopressor 25 mg PO BID 09/22/18 (beta sonya)] Folic Acid/Vit B Complex and C 0.8 mg PO QHS 11/18/18 [Renal Vitamin Tablet] sucralfate 1 gram tablet 1 g PO QACHS 11/18/18 Prednisone 5 mg PO DAILY 05/09/19 Surgical History: Surgical History (Last Reviewed 07/14/19 @ 12:[address] Jacob Boswell MD) s/p left arteriovenous fistula creation (Chronic) Onset Date: ~05/06/18 History of renal transplant (Resolved) Z94.0 Surgical History: - - Failed kidney transplant from adoptive mother, AV fistula Lives: Spouse/ Significant Other Smoking Status: Former smoker - *Family History Maternal History Items: No pertinent history - Patient adopted Review of Systems Unable to obtain accurate/complete ROS d/t: Patient being sedated on the vent VTE Information - Inpt Only VTE Present on Admission: No VTE Mechan Device Prophylaxis: None VTE Pharm Prophylaxis ordered?: No Reason prophylaxis not ordered:: Medical Contraindication - Patient is thrombocytopenic Patient Problems: Active and Suspected Problems (Last Reviewed 06/01/19 @ 13:26 by Laurel Oh NP-C) Pneumonia (Acute) Influenza (Acute) Respiratory failure (Acute) Objective: GENERAL: Sedated on the vent HEENT: ET tube in place EYES; Anicteric, NECK; supple, normal thyroid, RESPIRATORY: Diminished to auscultation CARDIOVASCULAR: Regular S1 S2, GI: soft, normoactive bowel sounds, : No Renal angle tenderness; EXTREMITIES: No edema, no clubbing, MUSCULOSKELETAL: muscle waisting NEURO: Sedated on the vent SKIN: Dry skin PSYCH; Unable to assess patient sedated and events - Physical Exam Vitals/I&O's: Vital Signs Temp Pulse Resp BP Pulse Ox 97.4 F L 122 H 14 164/108 H 100 07/14/19 08:50 07/14/19 11:26 07/14/19 11:26 07/14/19 11:26 07/14/19 11:26 Oxygen Flow Rate (L/min) 15 Oxygen Delivery Method Mechanical Ventilator Weight: 29.4 kg Body Mass Index (BMI) 13.1 Finger Stick Blood Glucose 104 Microbiology Past 72 Hours 07/14/19 09:13 Mucosa - Nose Influenza Types A,B Direct FA (SKY) - Final Influenzae A Laboratory Results 07/14/19 09:57: WBC 11.6 H, RBC 3.63 L, Hgb 12.6, Hct 38.7, MCV 106.6 H, MCH 34.7 H, MCHC 32.6, RDW Std Deviation 57.1 H, RDW Coeff of Fabrice 14.6, Plt Count 116 L, MPV 12.4 H, Immature Gran % (Auto) 0.600, Neut % (Auto) 93.7 H, Lymph % (Auto) 1.9 L, [place] % (Auto) 2.8, Eos % (Auto) 0.8, Baso % (Auto) 0.2, Absolute Neuts (auto) 10.9 H, Absolute Lymphs (auto) 0.22 L, Nucleated RBC % 0.3, Polychromasia RARE, Macrocytosis 1+, Ovalocytes RARE, Schistocytes RARE 07/14/19 09:57: Sodium 132 L, Potassium 6.1 H*, Chloride 97 L, Carbon Dioxide 23.0, Anion Gap 12, BUN 108 H*, Creatinine 6.29 H, Estim Creat Clear Calc 5.13, Est GFR (MDRD) Af Amer 9 L, Est GFR (MDRD) Non-Af 8 L, BUN/Creatinine Ratio 17.2, Glucose 45 L, Calcium 7.7 L, Total Bilirubin 0.50, AST 76 H, ALT 85 H, Alkaline Phosphatase 312 H, Troponin I 0.017, Total Protein 7.4, Albumin 2.5 L, Globulin 4.9 H, Albumin/Globulin Ratio 0.5 L 07/14/19 09:57: PT 13.0, INR 1.0, APTT 40.1 H 07/14/19 10:45: Lactic Acid 2.3 H* 07/14/19 11:35: Urine Color Yellow, Urine Clarity Sl. Cloudy, Urine pH 6.0, Ur Specific [place] 1.015, Urine Protein 100 H, Urine Glucose (UA) Normal, Urine Ketones Negative, Urine Occult Blood 10 H, Urine Nitrite Negative, Urine Bilirubin Negative, Urine Urobilinogen Normal, Ur Leukocyte Esterase Negative, Urine RBC 0-5 SEEN, Urine WBC 0 SEEN, Ur Squamous Epith Cells 0 SEEN, Urine Bacteria RARE, Urine Mucus 0 SEEN Current Medications Propofol (Diprivan) 1,000 mg in 100 mls @ 1.764 mls/hr CONT INF .Q12H [facility]; Protocol Last Admin: 07/14/19 11:46 Dose: 10 mcg/kg/min, 1.8 mls/hr Documented by: Assessment/Plan All Active Problems (Last Reviewed 06/01/19 @ 13:26 by Laurel Oh, TUTU-C) Pneumonia (Acute) Influenza (Acute) Respiratory failure (Acute) Healthcare-associated pneumonia (Acute) Problem with dialysis access (Resolved) History of cytomegalovirus infection (Resolved) Sepsis (Acute) Pneumonia, bacterial (Resolved) History of renal transplant (Resolved) Patient is a 48-year-old lady presented to the emergency department with progressive generalized weakness lethargy and shortness of breath 1. Severe sepsis ?Secondary to acute influenza A infection with superimposed bacterial pneumonia right upper lobe and lung base pneumonic consolidation. Cultures were obtained in the emergency department patient did receive IV fluids per protocol. Subsequently started on antiviral medication (Tamiflu) in addition to cefepime Levaquin and vancomycin 2. Acute hypoxic respiratory failure secondary to influenza A with superimposed pneumonia ?Management as discussed above in addition patient was intubated in the ED admitted to the intensive care unit with consult placed to Dr. Vann with intensive care case discussed with him prior to patient being admitted will defer subsequent vent management 3. End-stage renal disease Patient did miss dialysis on 07/13/2019. Consult placed to patient's investment recovery technician Dr. Marietta Mcdaniel. Did speak with her plan is for patient to undergo emergency dialysis 4. Hyperkalemia Secondary to end-stage renal disease patient undergo dialysis for treatment 5. History of renal transplant ?With subsequent rejection 6. History of gastric CA ?Patient in remission following gastrectomy 7. Severe protein calorie malnutrition ?Patient is cachectic, has low BMI of 13.1 in addition to muscle wasting consult placed to dietitian 8. Thrombocytopenia ?Suspected to be secondary to sepsis monitoring serial CBC 9. History of chronic bilateral pleural effusion ?Imaging studies obtained on admission demonstrated presence of patient bilateral pleural effusion 10. DVT prophylaxis ?Bilateral SCDs Chemoprophylaxis contraindicated in view of patient's low platelet count Advance planning; did discuss with the patient's parents regarding regarding advanced directives as well as CODE STATUS. Did explain the various scenarios involved ( FULL CODE, DNR CCA, DNR CCA with no intubation, and DNR CC and what each meant). Of note patient was intubated in the ED and family wishes for patient to remain full code. Order was placed. Time spent on discussion 17 minutes. Clinical Impression(s) from Imaging Studies Chest X-Ray 07/14/19 09:09 IMPRESSION: 1. New development of a right upper lobe and right lung base pneumonic consolidations. 2. Bibasilar pleural effusions are identified which are unchanged. Electronically Signed: Vijay Shanks, at 9:20 EST Tel , Service support , Code Visit Inpatient E&M: [id number] Disch Hosp Procedures: 33717 Advncd Care Plan 30 Min
--- NOTE | 2019-07-14 12:03 | NURSING ---
ICU SEVERE SEPSIS, RESP FAILURE LATHATOJeny
[2019-07-14 12:10] LABS: Base Excess -5 mmol/L (-2 to +2); Bicarbonate 22.4 mmol/L (22-26); Blood Gas Specimen Type ART; FI02 80; Mode A-C; O2 Delivery Device Vent; PEEP 5; PO2 115 mmHG (75-100); RR 15; SITE R Brachial; SO2 98 % (95-99); Time Given 1204; Total Carbon Dioxide 24 mmol/L; Vt 250; pH 7.24 (7.35-7.45)
[2019-07-14] MEDS: Calcium Chloride 1 GM/10 ML Syringe IV (12:13)
[2019-07-14] MEDS: Sodium Bicarbonate 8.4% 50 ML Syringe 50 MEQ IV (12:13)
--- NOTE | 2019-07-14 12:13 | NURSING ---
DR SNEED IN ER
--- NOTE | 2019-07-14 12:17 | NURSING ---
ICU 3
[2019-07-14] MEDS: Oseltamivir Phosphate 75 MG Capsule PO (12:25)
[2019-07-14 13:45] LABS: Base Excess 1 mmol/L (-2 to +2); Bicarbonate 26.7 mmol/L (22-26); Blood Gas Specimen Type ART; FI02 60; Mode A-C; O2 Delivery Device Vent; PEEP 5; PO2 77 mmHG (75-100); RR 16; SITE R Brachial; SO2 94 % (95-99); Time Given 1337; Total Carbon Dioxide 28 mmol/L; Vt 300; pCO2 49.4 mmHg (35-45); pH 7.34 (7.35-7.45)
--- NOTE | 2019-07-14 13:56 | RAD_ITS ---
EXAM DESCRIPTION: PORTABLE AP CHEST CLINICAL HISTORY: 48 years Female, ET TUBE/ NG TUBE PLACEMENT ET TUBE/ NG TUBE PLACEMENT COMPARISON: Previous portable chest obtained on 07/14/2019 11:59 AM FINDINGS: An NG tube and endotracheal tube noted in place. The endotracheal tube has been pulled back approximately 2 cm and is now in excellent there is mild dextroscoliosis noted in the thoracic spine. Position.The heart and mediastinum appear to be within normal limits. Moderate consolidation is noted involving the right upper lobe and right lung base with moderate-sized bibasilar pleural effusions. RAD/Chest 1 View (Portable) IMPRESSION: The endotracheal tube and NG tube noted in place in good position in this patient with right-sided pneumonic consolidations and bibasilar pleural effusions which are unchanged. Electronically Signed: Vijay Shanks, at 14:41 EST Tel , Service support ,
--- NOTE | 2019-07-14 14:03 | CON.PCM_ITS ---
Reason for Consult Date of Consultation: 07/14/19 Reason for Consultation: Acute on chronic respiratory failure History of Present Illness: The patient is a 48-year-old female, with a history as outlined below, who presented to the emergency department on July 14 with complaints of progressive shortness of breath. If you recall, the patient has a known history of chronic hypoxemic respiratory failure which has been felt to be secondary to hypervolemia in the setting of end-stage renal disease, which has lead to recurrent pleural effusions. The patient does have a baseline 2 L/min oxygen requirement. Since the spring 2018, the patient has always demonstrated the presence of bilateral pleural effusions on chest imaging studies. She has undergone multiple thoracenteses in the past. Accordingly, during my last office visit with the patient, she was referred to thoracic surgery. The patient was evaluated by Dr. Alexis Lea of cardiothoracic surgery on June 10. Due to the presence of the bilateral recurrent pleural effusions, thoracic surgery recommended that the patient undergo a left VATS decortication and pleurodesis, which would then be followed by a staged right VATS pleurodesis. Despite these recommendations, the patient reported that she wanted to attempt to optimize her nutritional status first and potentially seek a second opinion from a thoracic surgeon at [facility]. On presentation to the emergency department, the patient was noted to be afebrile and hypertensive. She was tachypneic and hypoxemic as well. The patient was noted to have missed her hemodialysis session yesterday due to feeling ill. Initial laboratory evaluation revealed a mildly elevated white blood cell count. Chemistry profile was notable for a sodium of 132, potassium of 6.1, BUN of 108 and creatinine of 6.29. Lactate was elevated to 2.3. Plain film chest x-ray revealed bibasilar pleural effusions along with a right upper lobe and right lung base consolidation. Unfortunately, throughout the patient's emergency department stay, she continued to decompensate from a respiratory perspective, eventually requiring intubation. Rapid influenza screen was positive for influenza A. The patient received supplemental IV fluid hydration and was started on broad-spectrum antimicrobials along with Tamiflu. She was then admitted to the medical intensive care unit for further management. Past Medical History Past Medical History (Chronic Problems): Chronic Problems (Last Reviewed 07/14/19 @ 12:[address] Jacob Boswell MD) Failure to thrive (Chronic) History of gastrectomy (Chronic) s/p left arteriovenous fistula creation (Chronic ~05/06/18) ESRD on dialysis (Chronic) Pleural effusion (Chronic) Renal transplant rejection (Chronic) GERD (gastroesophageal reflux disease) (Chronic) history of failed renal transplant (Chronic) History of gastric cancer (Chronic) Essential hypertension (Chronic) Anemia, chronic renal failure (Chronic) Medical History: Medical History (Last Reviewed 07/14/19 @ 12:[address] Jacob Boswell MD) History of gastrectomy (Chronic) Z90.3 Problem with dialysis access (Resolved) T82.898A Renal transplant rejection (Chronic) T86.11 GERD (gastroesophageal reflux disease) (Chronic) K21.9 History of cytomegalovirus infection (Resolved) Z86.19 history of failed renal transplant (Chronic) Sepsis (Acute) A41.9 Pneumonia, bacterial (Resolved) J15.9 JENNIFFER (acute kidney injury) (Inactive) N17.9 CKD (chronic kidney disease) stage 4, GFR 15-29 ml/min (Inactive) N18.4 History of gastric cancer (Chronic) Z85.028 Essential hypertension (Chronic) I10 Anemia, chronic renal failure (Chronic) N18.9, D63.1 Allergies Sulfa (Sulfonamide Antibiotics) Allergy (Verified 06/01/19 13:07) Hives NSAIDS (Non-Steroidal Anti-Inflamma Adverse Reaction (Verified 06/01/19 13:07) Other Home Medications: Ambulatory Orders Medication Instructions Recorded Cyanocobalamin [Vitamin B12] 1,000 mcg IM Q30D 07/03/17 Dronabinol [Marinol] 2.5 mg PO 4X/DAY 07/03/17 Gabapentin [Neurontin] 300 mg PO BIDCM 07/03/17 Levonorgestrel [Mirena] 1 ea VAGINAL UD 07/03/17 Vits [Prenatabs FA ] 1 tab PO DAILY 07/03/17 Tizanidine HCl [Zanaflex] 4 mg PO QHS 04/27/18 Biotin 10,000 mcg PO DAILY 05/05/18 oxycodone-acetaminophen 5 mg-325 1 tab PO Q6H 06/30/18 mg tablet pantoprazole 40 mg tablet,delayed 40 mg PO BID 07/22/18 release Hydroxyzine HCl 10 mg PO Q8 PRN 09/22/18 Metoprolol Tartrate [Lopressor 25 mg PO BID 09/22/18 (beta sonya)] Folic Acid/Vit B Complex and C 0.8 mg PO QHS 11/18/18 [Renal Vitamin Tablet] sucralfate 1 gram tablet 1 g PO QACHS 11/18/18 Prednisone 5 mg PO DAILY 05/09/19 Surgical History: Surgical History (Last Reviewed 07/14/19 @ 12:[address] Jacob Boswell MD) s/p left arteriovenous fistula creation (Chronic) Onset Date: ~05/06/18 History of renal transplant (Resolved) Z94.0 Surgical History: - - Failed kidney transplant from adoptive mother, AV fistula Lives: Spouse/ Significant Other Smoking Status: Former smoker - *Family History Maternal History Items: No pertinent history - Patient adopted Review of Systems Unable to obtain accurate/complete ROS d/t: Due to current intubation and mechanical ventilation status. Patient Problems: Active and Suspected Problems (Last Reviewed 07/14/19 @ 12:[address] Jacob Boswell MD) Pneumonia (Acute) Influenza (Acute) Respiratory failure (Acute) Respiratory failure (Acute) Pneumonia (Acute) Objective: The patient's most recent lab work, culture data and imaging studies have all been personally reviewed. - Physical Exam Vitals/I&O's: Vital Signs Temp Pulse Resp BP Pulse Ox 97.4 F L 97 16 173/99 H 96 07/14/19 11:57 07/14/19 13:05 07/14/19 13:05 07/14/19 11:57 07/14/19 13:58 Oxygen Flow Rate (L/min) 15 Oxygen Delivery Method Mechanical Ventilator Weight: 64 lb 13.054 oz Body Mass Index (BMI) 13.1 Finger Stick Blood Glucose 104 General: - - Intubated, sedated and mechanically ventilated. Chronically frail and cachectic in appearance. HEENT: Atraumatic, PERRLA, Normocephalic Oral: No Gingival or Mucosal Lesions/ Ulcerations, - - Endotracheal and OG tubes in place Neck: Supple, No Nodes, Trachea Midline Lungs: Diminished, Rales Cardiovascular: Regular rate, Regular Rhythm, Normal S1, Normal S2 Abdomen: Bowel Sounds Present, Soft, Non Tender Extremities: No clubbing, No cyanosis Skin: No breakdown Musculoskeletal: Cachexia, Muscle Wasting Lymphatic: No Cervical, Supraclavicular, or Inguinal Adenopathy Neurological: - - No focal neurological deficits. Currently sedated on the vent. Labs (Last 48 Hours) 07/14/19 07/14/19 07/14/19 09:57 09:57 09:57 WBC 11.6 H RBC 3.63 L Hgb 12.6 Hct 38.7 MCV 106.6 H MCH 34.7 H MCHC 32.6 RDW Std Deviation 57.1 H RDW Coeff of Fabrice 14.6 Plt Count 116 L MPV 12.4 H Immature Gran % (Auto) 0.600 Neut % (Auto) 93.7 H Lymph % (Auto) 1.9 L [place] % (Auto) 2.8 Eos % (Auto) 0.8 Baso % (Auto) 0.2 Absolute Neuts (auto) 10.9 H Absolute Lymphs (auto) 0.22 L Nucleated RBC % 0.3 Polychromasia RARE Macrocytosis 1+ Ovalocytes RARE Schistocytes RARE PT 13.0 INR 1.0 APTT 40.1 H Specimen Type Sample Site pH Bicarbonate Actual POC Total CO2 Base Excess O2 Saturation O2 % ABG pCO2 ABG pO2 [place]asper Test Respiration Rate O2 Delivery Device Vent Mode Tidal Volume POC PEEP Blood Gas Notified Whom Blood Gas Notified Time Sodium 132 L Potassium 6.1 H* Chloride 97 L Carbon Dioxide 23.0 Anion Gap 12 BUN 108 H* Creatinine 6.29 H Estim Creat Clear Calc 5.13 Est GFR (MDRD) Af Amer 9 L Est GFR (MDRD) Non-Af 8 L BUN/Creatinine Ratio 17.2 Glucose 45 L Lactic Acid Calcium 7.7 L Total Bilirubin 0.50 AST 76 H ALT 85 H Alkaline Phosphatase 312 H Troponin I 0.017 Total Protein 7.4 Albumin 2.5 L Globulin 4.9 H Albumin/Globulin Ratio 0.5 L Urine Color Urine Clarity Urine pH Ur Specific [place] Urine Protein Urine Glucose (UA) Urine Ketones Urine Occult Blood Urine Nitrite Urine Bilirubin Urine Urobilinogen Ur Leukocyte Esterase Urine RBC Urine WBC Ur Squamous Epith Cells Urine Bacteria Urine Mucus 07/14/19 07/14/19 07/14/19 10:45 11:35 12:05 WBC RBC Hgb Hct MCV MCH MCHC RDW Std Deviation RDW Coeff of Fabrice Plt Count MPV Immature Gran % (Auto) Neut % (Auto) Lymph % (Auto) [place] % (Auto) Eos % (Auto) Baso % (Auto) Absolute Neuts (auto) Absolute Lymphs (auto) Nucleated RBC % Polychromasia Macrocytosis Ovalocytes Schistocytes PT INR APTT Specimen Type ART Sample Site R Brachial pH 7.24 L Bicarbonate Actual 22.4 POC Total CO2 24 Base Excess -5 L O2 Saturation 98 O2 % 80 ABG pCO2 52.0 H ABG pO2 115 H Jasper Test NA Respiration Rate 15 O2 Delivery Device Vent Vent Mode A-C Tidal Volume 250 POC PEEP 5 Blood Gas Notified Whom ED MD Blood Gas Notified Time 1204 Sodium Potassium Chloride Carbon Dioxide Anion Gap BUN Creatinine Estim Creat Clear Calc Est GFR (MDRD) Af Amer Est GFR (MDRD) Non-Af BUN/Creatinine Ratio Glucose Lactic Acid 2.3 H* Calcium Total Bilirubin AST ALT Alkaline Phosphatase Troponin I Total Protein Albumin Globulin Albumin/Globulin Ratio Urine Color Yellow Urine Clarity Sl. Cloudy Urine pH 6.0 Ur Specific [place] 1.015 Urine Protein 100 H Urine Glucose (UA) Normal Urine Ketones Negative Urine Occult Blood 10 H Urine Nitrite Negative Urine Bilirubin Negative Urine Urobilinogen Normal Ur Leukocyte Esterase Negative Urine RBC 0-5 SEEN Urine WBC 0 SEEN Ur Squamous Epith Cells 0 SEEN Urine Bacteria RARE Urine Mucus 0 SEEN 07/14/19 13:38 WBC RBC Hgb Hct MCV MCH MCHC RDW Std Deviation RDW Coeff of Fabrice Plt Count MPV Immature Gran % (Auto) Neut % (Auto) Lymph % (Auto) [place] % (Auto) Eos % (Auto) Baso % (Auto) Absolute Neuts (auto) Absolute Lymphs (auto) Nucleated RBC % Polychromasia Macrocytosis Ovalocytes Schistocytes PT INR APTT Specimen Type ART Sample Site R Brachial pH 7.34 L Bicarbonate Actual 26.7 H POC Total CO2 28 Base Excess 1 O2 Saturation 94 L O2 % 60 ABG pCO2 49.4 H ABG pO2 77 [place]asper Test NA Respiration Rate 16 O2 Delivery Device Vent Vent Mode A-C Tidal Volume 300 POC PEEP 5 Blood Gas Notified Whom ICU Blood Gas Notified Time 1337 Sodium Potassium Chloride Carbon Dioxide Anion Gap BUN Creatinine Estim Creat Clear Calc Est GFR (MDRD) Af Amer Est GFR (MDRD) Non-Af BUN/Creatinine Ratio Glucose Lactic Acid Calcium Total Bilirubin AST ALT Alkaline Phosphatase Troponin I Total Protein Albumin Globulin Albumin/Globulin Ratio Urine Color Urine Clarity Urine pH Ur Specific [place] Urine Protein Urine Glucose (UA) Urine Ketones Urine Occult Blood Urine Nitrite Urine Bilirubin Urine Urobilinogen Ur Leukocyte Esterase Urine RBC Urine WBC Ur Squamous Epith Cells Urine Bacteria Urine Mucus Microbiology 07/14/19 09:13 Mucosa - Nose Influenza Types A,B Direct FA (SKY) - Final Influenzae A Clinical Impression(s) from Imaging Studies Chest X-Ray 07/14/19 09:09 IMPRESSION: 1. New development of a right upper lobe and right lung base pneumonic consolidations. 2. Bibasilar pleural effusions are identified which are unchanged. Electronically Signed: Vijay Shanks at 9:20 EST Tel , Service support , Chest X-Ray 07/14/19 11:55 IMPRESSION: 1. NG tube noted in place in good position. 2. Endotracheal tube is noted in place with its tip at the carinal bifurcation. This is a low position in the endotracheal tube should be withdrawn approximately 2 cm 3. Right lung pneumonic consolidations which are unchanged. 4. Moderate-sized bibasilar pleural effusions which are unchanged. Electronically Signed: Vijay Shanks at 12:42 EST Tel , Service support , ADDENDUM: 07/14/19 1302 IMPRESSION: 1. NG tube noted in place in good position. 2. Endotracheal tube is noted in place with its tip at the carinal bifurcation. This is a low position in the endotracheal tube should be withdrawn approximately 2 cm 3. Right lung pneumonic consolidations which are unchanged. 4. Moderate-sized bibasilar pleural effusions which are unchanged. N.B. : The above information has been verbally conveyed by Vijay Shanks to Humberto Ward MD, on 07/14/2019 12:55:55 (ET). Electronically Signed: Vijay Shanks at 12:42 EST Tel , Service support , Current Medications Chlorhexidine Gluconate () 15 ml PO BID SULEIMAN Dextrose (D50w Syringe) 0 gm IV X1 PRN; Protocol PRN Reason: Hypoglycemia Glucagon () 1 mg IM .X1 PRN PRN Reason: Hypoglycemia Propofol (Diprivan) 1,000 mg in 100 mls @ 1.764 mls/hr CONT INF .Q12H SULEIMAN; Protocol Last Admin: 07/14/19 11:46 Dose: 10 mcg/kg/min, 1.8 mls/hr Documented by: Cefepime HCl 2 gm/ Sodium (Chloride) 100 mls @ 200 mls/hr IV Q8 SULEIMAN Stop: 07/21/19 14:01 Levofloxacin (Levaquin Iv) 750 mg in 150 mls @ 100 mls/hr IV Q24 SULEIMAN Stop: 07/22/19 10:01 Vancomycin IV Pharmacy to Dose (1 ea/ Sodium Chloride) 500 mls @ 250 mls/hr IV X1 PRN; Protocol PRN Reason: Rx to Dose Sodium Chloride () 250 mls @ 15 mls/hr IV .[id number] PRN PRN Reason: Saline Flush Sodium Chloride () 250 mls @ 15 mls/hr IV .[id number] PRN PRN Reason: Additional IVPB Infusion Lidocaine HCl (Xylocaine 4% Sdv) 2 ml INHALATION X1 ONE Stop: 07/14/19 13:30 Ondansetron HCl (Zofran) 4 mg IV Q8H PRN PRN PRN Reason: NAUSEA/VOMITING Oseltamivir Phosphate (Tamiflu) 30 mg PO BID [facility] Stop: 07/19/19 10:01 Oxymetazoline HCl (Afrin (Bkc)) 2 spray NASAL X1 ONE Stop: 07/14/19 13:30 Sodium Chloride () 10 - 40 ml IV UD PRN PRN Reason: SALINE FLUSH Assessment/Plan Active and Suspected Problems (Last Reviewed 07/14/19 @ 12:[address] Jacob Boswell MD) Pneumonia (Acute) Influenza (Acute) Respiratory failure (Acute) Respiratory failure (Acute) Pneumonia (Acute) RECOMMENDATIONS: 1. Wean FiO2 and PEEP to maintain oxygen saturations at or above 90%. 2. Obtain arterial blood gas. 3. Continue Tamiflu as ordered. 4. Continue empiric antimicrobials, pending infectious work-up. 5. Check strep and urine Legionella antigens. Obtain and send sputum for culture. 6. Nephrology consultation for hemodialysis needs. 7. Start appropriate ICU prophylaxis IMPRESSIONS: 1. Acute combined on chronic hypoxemic respiratory failure Multifactorial in etiology and related to hypovolemia in the setting of end- stage renal disease with recent missed hemodialysis session, coupled with a history of recurrent pleural effusions, healthcare associated pneumonia and influenza. For now, the patient will be maintained on invasive mechanical ventilatory support. Agree with continuing broad-spectrum antimicrobials, pending infectious work-up. Continue Tamiflu as well. Consultation to be placed to nephrology for immediate hemodialysis support. Obtain nutrition consultation for tube feed recommendations. 2. Severe sepsis Secondary to influenza A with concern for superimposed bacterial pneumonia. Accordingly, the patient will be continued on broad-spectrum antimicrobials along with Tamiflu. I would advise against given any additional fluids, given the patient's volume overloaded state and need for dialysis. 3. End-stage renal disease on hemodialysis Nephrology consultation to assist with hemodialysis needs. 4. History of gastric CA/history of renal transplant with subsequent rejection/severe protein calorie malnutrition Complicates care, management, recovery and prognosis. Nutrition consultation to be obtained. Tube feeds to be initiated. TIME: 42 minutes of critical care time, independent of procedures, was spent addressing the patient's acute on chronic respiratory failure, severe sepsis, influenza A infection, end-stage renal disease on hemodialysis, review of all data and collaboration with the care team. ([id number]) Code Visit [id number]: [id number] Critical care first hour
[2019-07-14 14:50] LABS: Reflex Lactate? Y
[2019-07-14] MEDS: Cefepime 1 GM in 0.9% NS 50 ML Minibag Q12 IV (15:04)
[2019-07-14] MEDS: 0.9% Saline Lock 10 ML Syringe IV (15:05)
[2019-07-14 15:43] LABS: Lactic Acid 1.1 mmol/L (0.4-1.9)
--- NOTE | 2019-07-14 15:49 | CHAPLAIN ---
Type of Pastoral Visit _x__ Initial Visit ___ Follow-up Visit ___ On-call Visit ___ General Patient Visit ___ Spiritual Assessment ___ Family Conference ___ Bereavement ___ Rapid Response ___ Code Blue ___ Other (describe below) Pastoral Care Referral From ___ Patient _x__ Family ___ Nurse ___ Physician ___ Environmental Health Specialist ___ Papier Mache' Molder ___ Other (describe below) Sacrament/Intervention ___ Active listening ___ Anointing ___ Yazidi ___ Bereavement ___ Communion ___ Esmer exploration ___ ___ Life review _x__ Prayer ___ Reconciliation ___ Sacrament of Sick _x__ Supportive presence ___ Wedding ___ Other (describe below) Pastoral Comments parents at bedside; parents request presence and prayer support; pt opens her eyes when addressed but is not able to communicate or keep eyes open; pt is intubated; offer of further support as desired; parents request daily visit and prayers from this fagoter
--- NOTE | 2019-07-14 15:50 | PCM.RX.CS ---
Consult Pharmacy has been consulted to manage selected antiobiotic: Vancomycin Type of Consult: New start Suspected Infection: Sepsis, Pneumonia Prior Doses of Antibiotics Received/Current Regimen: Received 500mg iv x1 in ER 07.14.19 @1141. Labs: Sodium 132 mmol/L (136-145) L 07/14/19 09:57 Potassium 6.1 mmol/L (3.5-5.1) H* 07/14/19 09:57 Chloride 97 mmol/L (98-107) L 07/14/19 09:57 Carbon Dioxide 23.0 mmol/L (21.0-32.0) 07/14/19 09:57 Anion Gap 12 (5-15) 07/14/19 09:57 BUN 108 mg/dL (7-18) H* 07/14/19 09:57 Creatinine 6.29 mg/dL (0.55-1.02) H 07/14/19 09:57 Est GFR (MDRD) Af Amer 9 mL/min (>60) L 07/14/19 09:57 Est GFR (MDRD) Non-Af 8 mL/min (>60) L 07/14/19 09:57 BUN/Creatinine Ratio 17.2 RATIO (10-20) 07/14/19 09:57 Glucose 45 mg/dL (74-106) L 07/14/19 09:57 Microbiology: Microbiology 07/14/19 11:35 Urine Catheter - [place] Streptococcus pneumoniae Antigen (M - Final 07/14/19 11:35 Urine Catheter - [place] Legionella Antigen - Final 07/14/19 09:13 Mucosa - Nose Influenza Types A,B Direct FA (SKY) - Final Influenzae A Weight used for dosin.9 kg Estimated Creatinine Clearance: ~5ml/min Goal Trough: 15-20 mcg/mL Pharmacy Plan for Drug Dosing: Will follow dialysis schedule. Is planned to be . If gets dialysis 07.15.19, will redose with 500mg iv x 1 after dialysis. Random level will then be ordered for before third dialysis session. Pharmacy Service will continue to monitor and adjust dosing as required.
[2019-07-14 15:55] LABS: M R Staph aureus DNA By PCR Negative (Negative); Probe Check PASS; Specimen Processing Control PASS
--- NOTE | 2019-07-14 17:17 | CON.PCM_ITS ---
Consultation - Renal 07/14/19 PCP/ Referring MD: Requesting physician: [] Primary care physician: Deb Gregory MD Reason for Consultation:: ESRD HD , Fri - History of Present Illness History of Present Illness: The patient is a 48 year old F who presented to the emergency department with progressive generalized weakness lethargy and shortness of breath. 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 Past history for gastric CA status post gastrectomy, radiation nephritis, She missed her dialysis yesterday. Too ill to come in for her treatment after seen by pcp in clinic. Recent sick contact with who was diagnosed with pneumonia a day prior to admission. She is positive for influenza A. She was intubated in ED. CXR with right lobe pneumonia. She is admitted to ICU. Undergoing hemodialysis for missed treatment yesterday. She has a working fistula. Family at bedside. She is FTT with peg tube feedings. She has been diagnosed with pneumonia in the past with CMV colit is. She has chronic pleural effusion requiring thoracentesis. Last CXR 07/02/19 with stable effusion. - Allergies Allergies: Allergies Sulfa (Sulfonamide Antibiotics) Allergy (Verified 06/01/19 13:07) Hives NSAIDS (Non-Steroidal Anti-Inflamma Adverse Reaction (Verified 06/01/19 13:07) Other - Current Medications Current Medications: Current Medications Chlorhexidine Gluconate () 15 ml PO BID SULEIMAN Famotidine (Pepcid) 20 mg GT DAILY SULEIMAN Glucagon () 1 mg IM .X1 PRN PRN Reason: Hypoglycemia Heparin Sodium (Porcine) (Heparin Na) 5,000 unit SC Q12 SULEIMAN Propofol (Diprivan) 1,000 mg in 100 mls @ 1.764 mls/hr CONT INF .Q12H SULEIMAN; Protocol Last Titration: 07/14/19 17:00 Dose: 10 mcg/kg/min, 1.8 mls/hr Documented by: Vancomycin IV Pharmacy to Dose (1 ea/ Sodium Chloride) 500 mls @ 250 mls/hr IV PRN PRN; Protocol PRN Reason: Rx to Dose Sodium Chloride () 250 mls @ 15 mls/hr IV .[id number] PRN PRN Reason: Saline Flush Sodium Chloride () 250 mls @ 15 mls/hr IV .[id number] PRN PRN Reason: Additional IVPB Infusion Dextrose (Dextrose 10%-Water) 250 mls @ 999 mls/hr IV .Q16M PRN; Protocol PRN Reason: HYPOGLYCEMIA Cefepime HCl 0.5 gm/ Sodium (Chloride) 50 mls @ 100 mls/hr IV Q24H SULEIMAN Fentanyl () 100 mls @ 2.5 mls/hr IV UD SULEIMAN; Protocol Last Admin: 07/14/19 17:12 Dose: Not Given Documented by: Oseltamivir Phosphate (Tamiflu) 30 mg PO TuThSa@1700 SULEIMAN Stop: 07/22/19 17:01 Sodium Chloride () 10 - 40 ml IV UD PRN PRN Reason: SALINE FLUSH Last Admin: 07/14/19 15:05 Dose: 20 ml Documented by: - Past Medical History Past Medical History (Chronic Problems): Chronic Problems (Last Reviewed 07/14/19 @ 12:[address] Jacob Boswell MD) Failure to thrive (Chronic) History of gastrectomy (Chronic) s/p left arteriovenous fistula creation (Chronic ~05/06/18) ESRD on dialysis (Chronic) Pleural effusion (Chronic) Renal transplant rejection (Chronic) GERD (gastroesophageal reflux disease) (Chronic) history of failed renal transplant (Chronic) History of gastric cancer (Chronic) Essential hypertension (Chronic) Anemia, chronic renal failure (Chronic) - Past Surgical History Surgical History: - - Failed kidney transplant from adoptive mother, AV fistula - Social History Marital Status: Smoking Status: Former smoker - Family History Maternal History Items: No pertinent history - Patient adopted Review of Systems Constitutional: Reports: - - sedate on vent, unable to provide history. Pt mom at bedside to provide some history Respiratory: Reports: Cough, Shortness of breath upon exertion, Sputum production. Denies: Hemoptysis Gastrointestinal: Denies: Nausea, Vomiting Skin: Denies: Rash Neurological: Reports: - - weakness Psychiatric: Reports: Anxiety Hematologic/ Lymphatic: Reports: Anemia Patient Problems: Active and Suspected Problems (Last Reviewed 07/14/19 @ 12:[address] Jacob Boswell MD) Pneumonia (Acute) Influenza (Acute) Respiratory failure (Acute) Respiratory failure (Acute) Pneumonia (Acute) - Physical Exam Vitals/I&O's: Vital Signs Temp Pulse Resp BP Pulse Ox 97.4 F L 109 H 16 152/100 H 95 07/14/19 11:57 07/14/19 16:00 07/14/19 16:00 07/14/19 16:00 07/14/19 16:00 Oxygen Flow Rate (L/min) 15 Oxygen Delivery Method Mechanical Ventilator Weight: 29.9 kg Body Mass Index (BMI) 13.3 Finger Stick Blood Glucose 104 Intake and Output for Last 24 Hours 07/12/19 07/13/19 07/14/19 23:59 23:59 23:59 Intake Total 1109.42 / 1109.42 Balance 1109.42 / 1109.42 General: - - sedate on vent Oral: Moist Mucosa Lungs: Rhonchi, Wheezes - faint Cardiovascular: Tachycardic Abdomen: Bowel Sounds Present, Soft, Non Tender, Non-Distended, - - PEG tube Extremities: No edema Skin: No rashes Musculoskeletal: Cachexia, Muscle Wasting Neurological: - - on vent Psych/Mental Status: - - on vent, unable to assess Microbiology Past 72 Hours 07/14/19 11:35 Urine Catheter - Bethea Streptococcus pneumoniae Antigen (M - Final 07/14/19 11:35 Urine Catheter - Bethea Legionella Antigen - Final 07/14/19 09:13 Mucosa - Nose Influenza Types A,B Direct FA (SKY) - Final Influenzae A Laboratory Results 07/14/19 09:57: WBC 11.6 H, RBC 3.63 L, Hgb 12.6, Hct 38.7, MCV 106.6 H, MCH 34.7 H, MCHC 32.6, RDW Std Deviation 57.1 H, RDW Coeff of Fabrice 14.6, Plt Count 116 L, MPV 12.4 H, Immature Gran % (Auto) 0.600, Neut % (Auto) 93.7 H, Lymph % (Auto) 1.9 L, [place] % (Auto) 2.8, Eos % (Auto) 0.8, Baso % (Auto) 0.2, Absolute Neuts (auto) 10.9 H, Absolute Lymphs (auto) 0.22 L, Nucleated RBC % 0.3, Polychromasia RARE, Macrocytosis 1+, Ovalocytes RARE, Schistocytes RARE 07/14/19 09:57: Sodium 132 L, Potassium 6.1 H*, Chloride 97 L, Carbon Dioxide 23.0, Anion Gap 12, BUN 108 H*, Creatinine 6.29 H, Estim Creat Clear Calc 5.13, Est GFR (MDRD) Af Amer 9 L, Est GFR (MDRD) Non-Af 8 L, BUN/Creatinine Ratio 17.2, Glucose 45 L, Calcium 7.7 L, Total Bilirubin 0.50, AST 76 H, ALT 85 H, Alkaline Phosphatase 312 H, Troponin I 0.017, Total Protein 7.4, Albumin 2.5 L, Globulin 4.9 H, Albumin/Globulin Ratio 0.5 L 07/14/19 09:57: PT 13.0, INR 1.0, APTT 40.1 H 07/14/19 10:45: Lactic Acid 2.3 H* 07/14/19 11:35: Urine Color Yellow, Urine Clarity Sl. Cloudy, Urine pH 6.0, Ur Specific [place] 1.015, Urine Protein 100 H, Urine Glucose (UA) Normal, Urine Ketones Negative, Urine Occult Blood 10 H, Urine Nitrite Negative, Urine Bilirubin Negative, Urine Urobilinogen Normal, Ur Leukocyte Esterase Negative, Urine RBC 0-5 SEEN, Urine WBC 0 SEEN, Ur Squamous Epith Cells 0 SEEN, Urine Bacteria RARE, Urine Mucus 0 SEEN 07/14/19 12:05: Specimen Type ART, Sample Site R Brachial, pH 7.24 L, Bicarbonate Actual 22.4, POC Total CO2 24, Base Excess -5 L, O2 Saturation 98, O2 % 80, ABG pCO2 52.0 H, ABG pO2 115 H, [place] Test NA, Respiration Rate 15, O2 Delivery Device Vent, Vent Mode A-C, Tidal Volume 250, POC PEEP 5, Blood Gas Notified Whom ED , Blood Gas Notified Time 1204 07/14/19 13:38: Specimen Type ART, Sample Site R Brachial, pH 7.34 L, Bicarbonate Actual 26.7 H, POC Total CO2 28, Base Excess 1, O2 Saturation 94 L, O2 % 60, ABG pCO2 49.4 H, ABG pO2 77, [place] Test NA, Respiration Rate 16, O2 Delivery Device Vent, Vent Mode A-C, Tidal Volume 300, POC PEEP 5, Blood Gas Notified Whom ICU , Blood Gas Notified Time 1337 07/14/19 14:25: MRSA (PCR) Negative 07/14/19 15:05: Lactic Acid 1.1 Clinical Impression(s) from Imaging Studies Chest X-Ray 07/14/19 09:09 IMPRESSION: 1. New development of a right upper lobe and right lung base pneumonic consolidations. 2. Bibasilar pleural effusions are identified which are unchanged. Electronically Signed: Vijay Shanks at 9:20 EST Tel , Service support , Chest X-Ray 07/14/19 11:55 IMPRESSION: 1. NG tube noted in place in good position. 2. Endotracheal tube is noted in place with its tip at the carinal bifurcation. This is a low position in the endotracheal tube should be withdrawn approximately 2 cm 3. Right lung pneumonic consolidations which are unchanged. 4. Moderate-sized bibasilar pleural effusions which are unchanged. Electronically Signed: Vijay Shanks at 12:42 EST Tel , Service support , ADDENDUM: 07/14/19 1302 IMPRESSION: 1. NG tube noted in place in good position. 2. Endotracheal tube is noted in place with its tip at the carinal bifurcation. This is a low position in the endotracheal tube should be withdrawn approximately 2 cm 3. Right lung pneumonic consolidations which are unchanged. 4. Moderate-sized bibasilar pleural effusions which are unchanged. N.B. : The above information has been verbally conveyed by Vijay Shanks to Humberto Ward MD, on 07/14/2019 12:55:55 (ET). Electronically Signed: Vijay Shanks at 12:42 EST Tel , Service support , Chest X-Ray 07/14/19 13:56 IMPRESSION: The endotracheal tube and NG tube noted in place in good position in this patient with right-sided pneumonic consolidations and bibasilar pleural effusions which are unchanged. Electronically Signed: Vijay Shanks at 14:41 EST Tel , Service support , Current Medications Chlorhexidine Gluconate () 15 ml PO BID SULEIMAN Famotidine (Pepcid) 20 mg GT DAILY SULEIMAN Glucagon () 1 mg IM .X1 PRN PRN Reason: Hypoglycemia Heparin Sodium (Porcine) (Heparin Na) 5,000 unit SC Q12 SULEIMAN Propofol (Diprivan) 1,000 mg in 100 mls @ 1.764 mls/hr CONT INF .Q12H SULEIMAN; Protocol Last Titration: 07/14/19 17:00 Dose: 10 mcg/kg/min, 1.8 mls/hr Documented by: Vancomycin IV Pharmacy to Dose (1 ea/ Sodium Chloride) 500 mls @ 250 mls/hr IV PRN PRN; Protocol PRN Reason: Rx to Dose Sodium Chloride () 250 mls @ 15 mls/hr IV .[id number] PRN PRN Reason: Saline Flush Sodium Chloride () 250 mls @ 15 mls/hr IV .[id number] PRN PRN Reason: Additional IVPB Infusion Dextrose (Dextrose 10%-Water) 250 mls @ 999 mls/hr IV .Q16M PRN; Protocol PRN Reason: HYPOGLYCEMIA Cefepime HCl 0.5 gm/ Sodium (Chloride) 50 mls @ 100 mls/hr IV Q24H SULEIMAN Fentanyl () 100 mls @ 2.5 mls/hr IV UD SULEIMAN; Protocol Last Admin: 07/14/19 17:12 Dose: Not Given Documented by: Oseltamivir Phosphate (Tamiflu) 30 mg PO TuThSa@1700 SULEIMAN Stop: 07/22/19 17:01 Sodium Chloride () 10 - 40 ml IV UD PRN PRN Reason: SALINE FLUSH Last Admin: 07/14/19 15:05 Dose: 20 ml Documented by: Assessment/Plan All Active Problems (Last Reviewed 07/14/19 @ 12:[address] Jacob Boswell MD) Pneumonia (Acute) Influenza (Acute) Respiratory failure (Acute) Respiratory failure (Acute) Pneumonia (Acute) Healthcare-associated pneumonia (Acute) Problem with dialysis access (Resolved) History of cytomegalovirus infection (Resolved) Sepsis (Acute) Pneumonia, bacterial (Resolved) History of renal transplant (Resolved) 1. 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 Hx LUR kidney tx 02/21/2010 from adopted mom. HD today for missed treatment. Next dialysis Thurs, Sat. Fluid removal as tolerated 2. acute respiratory failure s/p intubation 3. Acute pneumonia with consolidation in compromised host. Check vanco levels prior to redosing 4. FTT s/p peg for feedings 5. chronic pleural effusion 6. Influenza A positive 7. Anemia hgb stable 8. Hyperkalemia correct with dialysis 9. STach with hx anxiety on dialysis
[2019-07-14 18:00] LABS: Bedside Glucose 75 mg/dL (70-110)
--- NOTE | 2019-07-14 19:04 | DIALYSIS ---
HD today x3 hours completed at 1810, tolerated fairly well, UF 400mL, Critline ended profile A, became increasingly tachycardic during tx (low 120s), HR 115 post tx, needles pulled post tx and stasis achieved after 8mins each site, HepB labs drawn and sent, report to [facility]ONT[facility] Frazier
--- NOTE | 2019-07-14 20:31 | NURSING ---
OG removed at this time, Per Dr Ellis. Pt has Functional PEG tube in place at this time to the left upper abdomen.
[2019-07-14] MEDS: Chlorhexidine 15 ML PO (21:32)
[2019-07-14] MEDS: Heparin Injection (Vial) 5,000 UNIT/ML VIAL 5000 UNIT SC (21:32)
--- NOTE | 2019-07-14 23:01 | CPS ---
Pt.'s FiO2 titrated from 60% - 50%
[2019-07-15] VITALS (38 sets, daily range): BP systolic 81–142; BP diastolic 64–93; PULSE 85–125; RESP 16–33; TEMP 36.3–37.6; O2SAT 92–126; BMI 12.7
[2019-07-15 00:10] LABS: Bedside Glucose 26 mg/dL (70-110)
[2019-07-15 00:26] LABS: Glucose 45 mg/dL (74-106)
[2019-07-15 00:35] LABS: Bedside Glucose 233 mg/dL (70-110)
--- NOTE | 2019-07-15 01:22 | CPS ---
Pt.'s FiO2 titrated from 50% - 45%
[2019-07-15 02:25] LABS: Bedside Glucose 81 mg/dL (70-110)
[2019-07-15] MEDS: Dextrose 10%-Water 250 ML 999 ML IV ×2 (04:13)
[2019-07-15 04:16] LABS: Bedside Glucose 49 mg/dL (70-110)
[2019-07-15 04:36] LABS: Absolute Lymphocyte Count 0.28 X10^3/uL (0.83-4.51); Absolute Neutrophil Count 9.5 X10^3/uL (2.0-7.7); Basophil# 0.01 X10^3/uL; Basophil% 0.1 % (0-1); Hematocrit 30.1 % (37-47); Hemoglobin 9.9 g/dL (12.0-15.0); Lymphocyte # 0.28 X10^3/ul (4.0); Lymphocyte % 2.7 % (19-41); Mean Corp Hgb Conc 32.9 g/dL (32-36); Mean Corpuscular Hgb 34.9 pg (27.0-32.0); Mean Platelet Vol. 12.8 fl (6.2-12.0); Monocyte# 0.26 X10^3/uL; Monocyte% 2.5 % (0-10); NRBC Flagged by Analyzer 0.3 % (0-5); Neutrophil # 9.54 X10^3/uL (2.7-7.7); Neutrophil % 92.9 % (47-70); POSITIVE COUNT YES; POSITIVE DIFFERENTIAL YES; POSITIVE MORPHOLOGY YES; Platelet Count 82 K/mm3 (150-450); RBC Distribution Width CV 14.9 % (11.6-14.6); RBC Distribution Width SD 58.3 fl (35.1-43.9); Red Blood Count 2.84 M/mm3 (4.2-5.4); White Blood Count 10.3 K/mm3 (4.4-11.0)
[2019-07-15 04:41] LABS: Bedside Glucose 257 mg/dL (70-110)
[2019-07-15 04:44] LABS: Differential Indicated SCAN CRITERIA MET
[2019-07-15 05:10] LABS: Differential Comment SCANNED
[2019-07-15 05:13] LABS: Anion Gap 11 (5-15); BUN 43 mg/dL (7-18); BUN/Creat Ratio 13.4 RATIO (10-20); Calcium,Total 7.1 mg/dL (8.5-10.1); Chloride 97 mmol/L (98-107); Creatinine, Serum 3.22 mg/dL (0.55-1.02); EST Glomerular Filtration Rate 16 mL/min (>60); Est Glom Filt Rate - Afr Amer 20 mL/min (>60); Estimated Creatinine Clearance 9.79 ml/min; Glucose 149 mg/dL (74-106); Potassium 4.6 mmol/L (3.5-5.1); Sodium Level 134 mmol/L (136-145)
[2019-07-15 06:11] LABS: Bedside Glucose 100 mg/dL (70-110)
--- NOTE | 2019-07-15 06:47 | PN_ITS ---
Subjective: The patient was seen and examined at the bedside this morning. Events from the last 24 hours have been reviewed. The patient currently has a low-grade fever but remains hemodynamically stable. FiO2 requirement is stable at 40%. The patient tolerated dialysis yesterday with 400 mL's of fluid removed. Nursing staff did report that the patient became tachycardic and hypertensive during dialysis. Objective: The patient's most recent lab work, culture data and imaging studies have all been personally reviewed. Rapid influenza screen was positive for influenza A. Strep and urine Legionella antigens were negative. Blood, urine and sputum cultures are pending. General: - - Remains intubated, sedated and mechanically ventilated. Chronically ill in appearance. HEENT: Atraumatic, PERRLA, Normocephalic Oral: No Gingival or Mucosal Lesions/ Ulcerations, - - Endotracheal and OG tubes remain in place Neck: Supple, No Nodes, Trachea Midline Lungs: No rhonchi, No wheeze, No rales, Diminished Cardiovascular: Normal S1, Normal S2, No murmurs, Tachycardic Abdomen: Bowel Sounds Present, Soft, Non Tender Extremities: No clubbing, No cyanosis, No edema Skin: No breakdown Musculoskeletal: Cachexia, Muscle Wasting Lymphatic: No Cervical, Supraclavicular, or Inguinal Adenopathy Neurological: - - No focal neurological deficits. Currently sedated on the ventilator. Vital Signs Temp Pulse Resp BP Pulse Ox 99.3 F H 105 H 19 H 125/78 H 97 07/15/19 06:00 07/15/19 06:00 07/15/19 06:00 07/15/19 06:00 07/15/19 06:00 Oxygen Flow Rate (L/min) 15 Oxygen Delivery Method Mechanical Ventilator Weight: 63 lb 4.363 oz Body Mass Index (BMI) 13.3 Finger Stick Blood Glucose 104 Intake and Output for Last 24 Hours 07/13/19 07/14/19 07/15/19 23:59 23:59 23:59 Intake Total 1120.22 / 1122.02 509.0 / 509.0 Output Total 550 / 625 85 / 85 Balance 570.22 / 497.02 424.0 / 424.0 Labs (Last 48 Hours) 07/14/19 07/14/19 07/14/19 09:57 09:57 09:57 WBC 11.6 H RBC 3.63 L Hgb 12.6 Hct 38.7 MCV 106.6 H MCH 34.7 H MCHC 32.6 RDW Std Deviation 57.1 H RDW Coeff of Fabrice 14.6 Plt Count 116 L MPV 12.4 H Immature Gran % (Auto) 0.600 Neut % (Auto) 93.7 H Lymph % (Auto) 1.9 L [place] % (Auto) 2.8 Eos % (Auto) 0.8 Baso % (Auto) 0.2 Absolute Neuts (auto) 10.9 H Absolute Lymphs (auto) 0.22 L Nucleated RBC % 0.3 Differential Comment Polychromasia RARE Macrocytosis 1+ Ovalocytes RARE Schistocytes RARE PT 13.0 INR 1.0 APTT 40.1 H Specimen Type Sample Site pH Bicarbonate Actual POC Total CO2 Base Excess O2 Saturation O2 % ABG pCO2 ABG pO2 [place] Test Respiration Rate O2 Delivery Device Vent Mode Tidal Volume POC PEEP Blood Gas Notified Whom Blood Gas Notified Time Sodium 132 L Potassium 6.1 H* Chloride 97 L Carbon Dioxide 23.0 Anion Gap 12 BUN 108 H* Creatinine 6.29 H Estim Creat Clear Calc 5.13 Est GFR (MDRD) Af Amer 9 L Est GFR (MDRD) Non-Af 8 L BUN/Creatinine Ratio 17.2 Glucose 45 L Lactic Acid Calcium 7.7 L Total Bilirubin 0.50 AST 76 H ALT 85 H Alkaline Phosphatase 312 H Troponin I 0.017 Total Protein 7.4 Albumin 2.5 L Globulin 4.9 H Albumin/Globulin Ratio 0.5 L Urine Color Urine Clarity Urine pH Ur Specific [place] Urine Protein Urine Glucose (UA) Urine Ketones Urine Occult Blood Urine Nitrite Urine Bilirubin Urine Urobilinogen Ur Leukocyte Esterase Urine RBC Urine WBC Ur Squamous Epith Cells Urine Bacteria Urine Mucus Hep Bs Antigen Hep Bs Antibody Hep B Core Total Ab MRSA (PCR) POC Glucose 07/14/19 07/14/19 07/14/19 10:45 11:35 12:05 WBC RBC Hgb Hct MCV MCH MCHC RDW Std Deviation RDW Coeff of Fabrice Plt Count MPV Immature Gran % (Auto) Neut % (Auto) Lymph % (Auto) [place] % (Auto) Eos % (Auto) Baso % (Auto) Absolute Neuts (auto) Absolute Lymphs (auto) Nucleated RBC % Differential Comment Polychromasia Macrocytosis Ovalocytes Schistocytes PT INR APTT Specimen Type ART Sample Site R Brachial pH 7.24 L Bicarbonate Actual 22.4 POC Total CO2 24 Base Excess -5 L O2 Saturation 98 O2 % 80 ABG pCO2 52.0 H ABG pO2 115 H [place] Test NA Respiration Rate 15 O2 Delivery Device Vent Vent Mode A-C Tidal Volume 250 POC PEEP 5 Blood Gas Notified Whom ED Blood Gas Notified Time 1204 Sodium Potassium Chloride Carbon Dioxide Anion Gap BUN Creatinine Estim Creat Clear Calc Est GFR (MDRD) Af Amer Est GFR (MDRD) Non-Af BUN/Creatinine Ratio Glucose Lactic Acid 2.3 H* Calcium Total Bilirubin AST ALT Alkaline Phosphatase Troponin I Total Protein Albumin Globulin Albumin/Globulin Ratio Urine Color Yellow Urine Clarity Sl. Cloudy Urine pH 6.0 Ur Specific [place] 1.015 Urine Protein 100 H Urine Glucose (UA) Normal Urine Ketones Negative Urine Occult Blood 10 H Urine Nitrite Negative Urine Bilirubin Negative Urine Urobilinogen Normal Ur Leukocyte Esterase Negative Urine RBC 0-5 SEEN Urine WBC 0 SEEN Ur Squamous Epith Cells 0 SEEN Urine Bacteria RARE Urine Mucus 0 SEEN Hep Bs Antigen Hep Bs Antibody Hep B Core Total Ab MRSA (PCR) POC Glucose 07/14/19 07/14/19 07/14/19 13:38 14:25 15:05 WBC RBC Hgb Hct MCV MCH MCHC RDW Std Deviation RDW Coeff of Fabrice Plt Count MPV Immature Gran % (Auto) Neut % (Auto) Lymph % (Auto) [place] % (Auto) Eos % (Auto) Baso % (Auto) Absolute Neuts (auto) Absolute Lymphs (auto) Nucleated RBC % Differential Comment Polychromasia Macrocytosis Ovalocytes Schistocytes PT INR APTT Specimen Type ART Sample Site R Brachial pH 7.34 L Bicarbonate Actual 26.7 H POC Total CO2 28 Base Excess 1 O2 Saturation 94 L O2 % 60 ABG pCO2 49.4 H ABG pO2 77 [place] Test NA Respiration Rate 16 O2 Delivery Device Vent Vent Mode A-C Tidal Volume 300 POC PEEP 5 Blood Gas Notified Whom ICU Blood Gas Notified Time 1337 Sodium Potassium Chloride Carbon Dioxide Anion Gap BUN Creatinine Estim Creat Clear Calc Est GFR (MDRD) Af Amer Est GFR (MDRD) Non-Af BUN/Creatinine Ratio Glucose Lactic Acid 1.1 Calcium Total Bilirubin AST ALT Alkaline Phosphatase Troponin I Total Protein Albumin Globulin Albumin/Globulin Ratio Urine Color Urine Clarity Urine pH Ur Specific [place] Urine Protein Urine Glucose (UA) Urine Ketones Urine Occult Blood Urine Nitrite Urine Bilirubin Urine Urobilinogen Ur Leukocyte Esterase Urine RBC Urine WBC Ur Squamous Epith Cells Urine Bacteria Urine Mucus Hep Bs Antigen Hep Bs Antibody Hep B Core Total Ab MRSA (PCR) Negative POC Glucose 07/14/19 07/14/19 07/14/19 17:10 17:10 17:57 WBC RBC Hgb Hct MCV MCH MCHC RDW Std Deviation RDW Coeff of Fabrice Plt Count MPV Immature Gran % (Auto) Neut % (Auto) Lymph % (Auto) [place] % (Auto) Eos % (Auto) Baso % (Auto) Absolute Neuts (auto) Absolute Lymphs (auto) Nucleated RBC % Differential Comment Polychromasia Macrocytosis Ovalocytes Schistocytes PT INR APTT Specimen Type Sample Site pH Bicarbonate Actual POC Total CO2 Base Excess O2 Saturation O2 % ABG pCO2 ABG pO2 [place] Test Respiration Rate O2 Delivery Device Vent Mode Tidal Volume POC PEEP Blood Gas Notified Whom Blood Gas Notified Time Sodium Potassium Chloride Carbon Dioxide Anion Gap BUN Creatinine Estim Creat Clear Calc Est GFR (MDRD) Af Amer Est GFR (MDRD) Non-Af BUN/Creatinine Ratio Glucose Lactic Acid Calcium Total Bilirubin AST ALT Alkaline Phosphatase Troponin I Total Protein Albumin Globulin Albumin/Globulin Ratio Urine Color Urine Clarity Urine pH Ur Specific [place] Urine Protein Urine Glucose (UA) Urine Ketones Urine Occult Blood Urine Nitrite Urine Bilirubin Urine Urobilinogen Ur Leukocyte Esterase Urine RBC Urine WBC Ur Squamous Epith Cells Urine Bacteria Urine Mucus Hep Bs Antigen Pending Hep Bs Antibody Pending Hep B Core Total Ab Pending MRSA (PCR) POC Glucose 75 07/14/19 07/15/19 07/15/19 23:56 00:05 00:22 WBC RBC Hgb Hct MCV MCH MCHC RDW Std Deviation RDW Coeff of Fabrice Plt Count MPV Immature Gran % (Auto) Neut % (Auto) Lymph % (Auto) [place] % (Auto) Eos % (Auto) Baso % (Auto) Absolute Neuts (auto) Absolute Lymphs (auto) Nucleated RBC % Differential Comment Polychromasia Macrocytosis Ovalocytes Schistocytes PT INR APTT Specimen Type Sample Site pH Bicarbonate Actual POC Total CO2 Base Excess O2 Saturation O2 % ABG pCO2 ABG pO2 [place] Test Respiration Rate O2 Delivery Device Vent Mode Tidal Volume POC PEEP Blood Gas Notified Whom Blood Gas Notified Time Sodium Potassium Chloride Carbon Dioxide Anion Gap BUN Creatinine Estim Creat Clear Calc Est GFR (MDRD) Af Amer Est GFR (MDRD) Non-Af BUN/Creatinine Ratio Glucose 45 L Lactic Acid Calcium Total Bilirubin AST ALT Alkaline Phosphatase Troponin I Total Protein Albumin Globulin Albumin/Globulin Ratio Urine Color Urine Clarity Urine pH Ur Specific [place] Urine Protein Urine Glucose (UA) Urine Ketones Urine Occult Blood Urine Nitrite Urine Bilirubin Urine Urobilinogen Ur Leukocyte Esterase Urine RBC Urine WBC Ur Squamous Epith Cells Urine Bacteria Urine Mucus Hep Bs Antigen Hep Bs Antibody Hep B Core Total Ab MRSA (PCR) POC Glucose 26 L* 233 H 07/15/19 07/15/19 07/15/19 02:11 04:11 04:20 WBC 10.3 RBC 2.84 L Hgb 9.9 L Hct 30.1 L MCV 106.0 H MCH 34.9 H MCHC 32.9 RDW Std Deviation 58.3 H RDW Coeff of Fabrice 14.9 H Plt Count 82 L MPV 12.8 H Immature Gran % (Auto) 1.800 H Neut % (Auto) 92.9 H Lymph % (Auto) 2.7 L [place] % (Auto) 2.5 Eos % (Auto) 0.0 Baso % (Auto) 0.1 Absolute Neuts (auto) 9.5 H Absolute Lymphs (auto) 0.28 L Nucleated RBC % 0.3 Differential Comment SCANNED Polychromasia Macrocytosis Ovalocytes Schistocytes PT INR APTT Specimen Type Sample Site pH Bicarbonate Actual POC Total CO2 Base Excess O2 Saturation O2 % ABG pCO2 ABG pO2 [place] Test Respiration Rate O2 Delivery Device Vent Mode Tidal Volume POC PEEP Blood Gas Notified Whom Blood Gas Notified Time Sodium Potassium Chloride Carbon Dioxide Anion Gap BUN Creatinine Estim Creat Clear Calc Est GFR (MDRD) Af Amer Est GFR (MDRD) Non-Af BUN/Creatinine Ratio Glucose Lactic Acid Calcium Total Bilirubin AST ALT Alkaline Phosphatase Troponin I Total Protein Albumin Globulin Albumin/Globulin Ratio Urine Color Urine Clarity Urine pH Ur Specific [place] Urine Protein Urine Glucose (UA) Urine Ketones Urine Occult Blood Urine Nitrite Urine Bilirubin Urine Urobilinogen Ur Leukocyte Esterase Urine RBC Urine WBC Ur Squamous Epith Cells Urine Bacteria Urine Mucus Hep Bs Antigen Hep Bs Antibody Hep B Core Total Ab MRSA (PCR) POC Glucose 81 49 L 07/15/19 07/15/19 07/15/19 04:20 04:34 06:05 WBC RBC Hgb Hct MCV MCH MCHC RDW Std Deviation RDW Coeff of Fabrice Plt Count MPV Immature Gran % (Auto) Neut % (Auto) Lymph % (Auto) [place] % (Auto) Eos % (Auto) Baso % (Auto) Absolute Neuts (auto) Absolute Lymphs (auto) Nucleated RBC % Differential Comment Polychromasia Macrocytosis Ovalocytes Schistocytes PT INR APTT Specimen Type Sample Site pH Bicarbonate Actual POC Total CO2 Base Excess O2 Saturation O2 % ABG pCO2 ABG pO2 [place] Test Respiration Rate O2 Delivery Device Vent Mode Tidal Volume POC PEEP Blood Gas Notified Whom Blood Gas Notified Time Sodium 134 L Potassium 4.6 Chloride 97 L Carbon Dioxide 26.0 Anion Gap 11 BUN 43 H Creatinine 3.22 H Estim Creat Clear Calc 9.79 Est GFR (MDRD) Af Amer 20 L Est GFR (MDRD) Non-Af 16 L BUN/Creatinine Ratio 13.4 Glucose 149 H Lactic Acid Calcium 7.1 L Total Bilirubin AST ALT Alkaline Phosphatase Troponin I Total Protein Albumin Globulin Albumin/Globulin Ratio Urine Color Urine Clarity Urine pH Ur Specific [place] Urine Protein Urine Glucose (UA) Urine Ketones Urine Occult Blood Urine Nitrite Urine Bilirubin Urine Urobilinogen Ur Leukocyte Esterase Urine RBC Urine WBC Ur Squamous Epith Cells Urine Bacteria Urine Mucus Hep Bs Antigen Hep Bs Antibody Hep B Core Total Ab MRSA (PCR) POC Glucose 257 H 100 Microbiology 07/14/19 11:35 Urine Catheter - [place] Streptococcus pneumoniae Antigen (M - Final 07/14/19 11:35 Urine Catheter - [place] Legionella Antigen - Final 07/14/19 09:13 Mucosa - Nose Influenza Types A,B Direct FA (SKY) - Final Influenzae A Clinical Impression(s) from Imaging Studies Chest X-Ray 07/14/19 09:09 IMPRESSION: 1. New development of a right upper lobe and right lung base pneumonic consolidations. 2. Bibasilar pleural effusions are identified which are unchanged. Electronically Signed: Vijay Dimitris, at 9:20 EST Tel , Service support , Chest X-Ray 07/14/19 11:55 IMPRESSION: 1. NG tube noted in place in good position. 2. Endotracheal tube is noted in place with its tip at the carinal bifurcation. This is a low position in the endotracheal tube should be withdrawn approximately 2 cm 3. Right lung pneumonic consolidations which are unchanged. 4. Moderate-sized bibasilar pleural effusions which are unchanged. Electronically Signed: Vijay Shanks at 12:42 EST Tel , Service support , ADDENDUM: 07/14/19 1302 IMPRESSION: 1. NG tube noted in place in good position. 2. Endotracheal tube is noted in place with its tip at the carinal bifurcation. This is a low position in the endotracheal tube should be withdrawn approximately 2 cm 3. Right lung pneumonic consolidations which are unchanged. 4. Moderate-sized bibasilar pleural effusions which are unchanged. N.B. : The above information has been verbally conveyed by Vijay Shanks to Humberto Ward MD, on 07/14/2019 12:55:55 (ET). Electronically Signed: Vijay Shanks at 12:42 EST Tel , Service support , Chest X-Ray 07/14/19 13:56 IMPRESSION: The endotracheal tube and NG tube noted in place in good position in this patient with right-sided pneumonic consolidations and bibasilar pleural effusions which are unchanged. Electronically Signed: Vijay Shanks at 14:41 EST Tel , Service support , Medical Necessity - Tobacco Use Smoking Status: Former smoker Assessment/Plan All Active Problems (Last Reviewed 07/14/19 @ 12:[address] Jacob Boswell MD) Pneumonia (Acute) Influenza (Acute) Respiratory failure (Acute) Respiratory failure (Acute) Pneumonia (Acute) Healthcare-associated pneumonia (Acute) Problem with dialysis access (Resolved) History of cytomegalovirus infection (Resolved) Sepsis (Acute) Pneumonia, bacterial (Resolved) History of renal transplant (Resolved) RECOMMENDATIONS: 1. Continue to wean FiO2 to maintain oxygen saturations at or above 90%. 2. Continue Tamiflu and empiric antimicrobials. Okay to discontinue vancomycin from my perspective. 3. Continue hemodialysis support per nephrology recommendations. 4. Okay to start tube feeds today. Monitor electrolytes closely over concerns for refeeding syndrome. 5. Continue appropriate ICU prophylaxis. 6. Plan for paired spontaneous awakening and breathing trial tomorrow morning. IMPRESSIONS: 1. Acute combined on chronic hypoxemic respiratory failure Multifactorial in etiology and related to hypervolemia in the setting of end- stage renal disease with recent missed hemodialysis session, coupled with a history of recurrent pleural effusions, healthcare associated pneumonia and influenza. For now, the patient will be maintained on invasive mechanical ventilatory support. Agree with continuing broad-spectrum antimicrobials, pending infectious work-up. Continue Tamiflu as well. Nephrology is following to assist with hemodialysis needs. Tube feeds will be started today. Electrolytes will be monitored carefully over concerns for possible refeeding syndrome. Plan for daily paired spontaneous awakening and breathing trial tomorrow morning. 2. Severe sepsis Secondary to influenza A with concern for superimposed bacterial pneumonia. Accordingly, the patient will be continued on broad-spectrum antimicrobials along with Tamiflu. 3. End-stage renal disease on hemodialysis Nephrology following to assist with hemodialysis needs. 4. History of gastric CA/history of renal transplant with subsequent rejection/severe protein calorie malnutrition Complicates care, management, recovery and prognosis. Nutrition consultation to be obtained. Tube feeds to be initiated. TIME: 37 minutes of critical care time, independent of procedures, was spent addressing the patient's acute on chronic respiratory failure, severe sepsis, influenza A infection, end-stage renal disease on hemodialysis, review of all data and collaboration with the care team. ([id number]) Code Visit [id number]: [id number] Critical care first hour
--- NOTE | 2019-07-15 07:22 | PN_ITS ---
Patient Problems: Active and Suspected Problems (Last Reviewed 07/14/19 @ 12:[address] Jacob Boswell MD) Pneumonia (Acute) Influenza (Acute) Respiratory failure (Acute) Respiratory failure (Acute) Pneumonia (Acute) Reason for Visit: Follow-up acute hypoxic respiratory failure Subjective: Patient is a 48-year-old lady presented to the emergency department with progressive generalized weakness lethargy and shortness of breath and assessment of Severe sepsis Secondary to acute influenza A infection with superimposed bacterial pneumonia right upper lobe and lung base pneumonic consolidation patient was intubated and admitted to the intensive care unit ?Patient underwent emergency dialysis the day prior. Still remains on the vent Objective: GENERAL: Awake on the vent HEENT: ET tube in place EYES; Anicteric, NECK; supple, normal thyroid, RESPIRATORY: Diminished to auscultation CARDIOVASCULAR: Regular S1 S2, GI: soft, normoactive bowel sounds, : No Renal angle tenderness; EXTREMITIES: No edema, no clubbing, MUSCULOSKELETAL: muscle waisting NEURO: Remains on the vent unable to assess but does not appear to have any focal or lateralizing signs SKIN: Dry skin PSYCH; Unable to assess patient sedated on the vent Vitals/I&O's: Vital Signs Temp Pulse Resp BP Pulse Ox 99.3 F H 104 H 17 127/76 H 98 07/15/19 06:00 07/15/19 07:00 07/15/19 07:00 07/15/19 07:00 07/15/19 07:00 Oxygen Flow Rate (L/min) 15 Oxygen Delivery Method Mechanical Ventilator Weight: 28.7 kg Body Mass Index (BMI) 13.3 Finger Stick Blood Glucose 104 Intake and Output for Last 24 Hours 07/13/19 07/14/19 07/15/19 23:59 23:59 23:59 Intake Total 1120.22 / 1122.02 509.0 / 509.0 Output Total 550 / 625 85 / 85 Balance 570.22 / 497.02 424.0 / 424.0 Microbiology Past 72 Hours 07/14/19 11:35 Urine Catheter - Bethea Streptococcus pneumoniae Antigen (M - Final 07/14/19 11:35 Urine Catheter - Bethea Legionella Antigen - Final 07/14/19 09:13 Mucosa - Nose Influenza Types A,B Direct FA (SKY) - Final Influenzae A Laboratory Results 07/14/19 09:57: WBC 11.6 H, RBC 3.63 L, Hgb 12.6, Hct 38.7, MCV 106.6 H, MCH 34.7 H, MCHC 32.6, RDW Std Deviation 57.1 H, RDW Coeff of Fabrice 14.6, Plt Count 116 L, MPV 12.4 H, Immature Gran % (Auto) 0.600, Neut % (Auto) 93.7 H, Lymph % (Auto) 1.9 L, [place] % (Auto) 2.8, Eos % (Auto) 0.8, Baso % (Auto) 0.2, Absolute Neuts (auto) 10.9 H, Absolute Lymphs (auto) 0.22 L, Nucleated RBC % 0.3, Polychromasia RARE, Macrocytosis 1+, Ovalocytes RARE, Schistocytes RARE 07/14/19 09:57: Sodium 132 L, Potassium 6.1 H*, Chloride 97 L, Carbon Dioxide 23.0, Anion Gap 12, BUN 108 H*, Creatinine 6.29 H, Estim Creat Clear Calc 5.13, Est GFR (MDRD) Af Amer 9 L, Est GFR (MDRD) Non-Af 8 L, BUN/Creatinine Ratio 17.2, Glucose 45 L, Calcium 7.7 L, Total Bilirubin 0.50, AST 76 H, ALT 85 H, Alkaline Phosphatase 312 H, Troponin I 0.017, Total Protein 7.4, Albumin 2.5 L, Globulin 4.9 H, Albumin/Globulin Ratio 0.5 L 07/14/19 09:57: PT 13.0, INR 1.0, APTT 40.1 H 07/14/19 10:45: Lactic Acid 2.3 H* 07/14/19 11:35: Urine Color Yellow, Urine Clarity Sl. Cloudy, Urine pH 6.0, Ur Specific [place] 1.015, Urine Protein 100 H, Urine Glucose (UA) Normal, Urine Ketones Negative, Urine Occult Blood 10 H, Urine Nitrite Negative, Urine Bilirubin Negative, Urine Urobilinogen Normal, Ur Leukocyte Esterase Negative, Urine RBC 0-5 SEEN, Urine WBC 0 SEEN, Ur Squamous Epith Cells 0 SEEN, Urine Bacteria RARE, Urine Mucus 0 SEEN 07/14/19 12:05: Specimen Type ART, Sample Site R Brachial, pH 7.24 L, Bicarbonate Actual 22.4, POC Total CO2 24, Base Excess -5 L, O2 Saturation 98, O2 % 80, ABG pCO2 52.0 H, ABG pO2 115 H, [place] Test NA, Respiration Rate 15, O2 Delivery Device Vent, Vent Mode A-C, Tidal Volume 250, POC PEEP 5, Blood Gas Notified Whom ED , Blood Gas Notified Time 1204 07/14/19 13:38: Specimen Type ART, Sample Site R Brachial, pH 7.34 L, Bicarbonate Actual 26.7 H, POC Total CO2 28, Base Excess 1, O2 Saturation 94 L, O2 % 60, ABG pCO2 49.4 H, ABG pO2 77, [place]asper Test NA, Respiration Rate 16, O2 Delivery Device Vent, Vent Mode A-C, Tidal Volume 300, POC PEEP 5, Blood Gas Notified Whom ICU , Blood Gas Notified Time 1337 07/14/19 14:25: MRSA (PCR) Negative 07/14/19 15:05: Lactic Acid 1.1 07/14/19 17:10: Hep B Core Total Ab Pending 07/14/19 17:10: Hep Bs Antigen Pending, Hep Bs Antibody Pending 07/14/19 17:57: POC Glucose 75 07/14/19 23:56: POC Glucose 26 L* 07/15/19 00:05: Glucose 45 L 07/15/19 00:22: POC Glucose 233 H 07/15/19 02:11: POC Glucose 81 07/15/19 04:11: POC Glucose 49 L 07/15/19 04:20: WBC 10.3, RBC 2.84 L, Hgb 9.9 L, Hct 30.1 L, MCV 106.0 H, MCH 34.9 H, MCHC 32.9, RDW Std Deviation 58.3 H, RDW Coeff of Fabrice 14.9 H, Plt Count 82 L, MPV 12.8 H, Immature Gran % (Auto) 1.800 H, Neut % (Auto) 92.9 H, Lymph % (Auto) 2.7 L, [place] % (Auto) 2.5, Eos % (Auto) 0.0, Baso % (Auto) 0.1, Absolute Neuts (auto) 9.5 H, Absolute Lymphs (auto) 0.28 L, Nucleated RBC % 0.3, Differential Comment SCANNED 02/27/20 04:20: Sodium 134 L, Potassium 4.6, Chloride 97 L, Carbon Dioxide 26.0, Anion Gap 11, BUN 43 H, Creatinine 3.22 H, Estim Creat Clear Calc 9.79, Est GFR (MDRD) Af Amer 20 L, Est GFR (MDRD) Non-Af 16 L, BUN/Creatinine Ratio 13.4, Glucose 149 H, Calcium 7.1 L 07/15/19 04:34: POC Glucose 257 H 07/15/19 06:05: POC Glucose 100 Current Medications Chlorhexidine Gluconate () 15 ml PO BID [facility] Last Admin: 07/14/19 21:32 Dose: 15 ml Documented by: Famotidine (Pepcid) 20 mg GT DAILY [facility] Glucagon () 1 mg IM .X1 PRN PRN Reason: Hypoglycemia Heparin Sodium (Porcine) (Heparin Na) 5,000 unit SC Q12 [facility] Last Admin: 07/14/19 21:32 Dose: 5,000 unit Documented by: Propofol (Diprivan) 1,000 mg in 100 mls @ 1.764 mls/hr CONT INF .Q12H [facility]; Protocol Last Titration: 07/15/19 07:00 Dose: 0 mcg/kg/min, 0 mls/hr Documented by: Vancomycin IV Pharmacy to Dose (1 ea/ Sodium Chloride) 500 mls @ 250 mls/hr IV PRN PRN; Protocol PRN Reason: Rx to Dose Sodium Chloride () 250 mls @ 15 mls/hr IV .[id number] PRN PRN Reason: Saline Flush Sodium Chloride () 250 mls @ 15 mls/hr IV .[id number] PRN PRN Reason: Additional IVPB Infusion Dextrose (Dextrose 10%-Water) 250 mls @ 999 mls/hr IV .Q16M PRN; Protocol PRN Reason: HYPOGLYCEMIA Last Infusion: 07/15/19 04:38 Dose: Infused Documented by: Cefepime HCl 0.5 gm/ Sodium (Chloride) 50 mls @ 100 mls/hr IV Q24H [facility] Fentanyl () 100 mls @ 2.5 mls/hr IV UD [facility]; Protocol Last Admin: 07/14/19 17:12 Dose: Not Given Documented by: Oseltamivir Phosphate (Tamiflu) 30 mg PO TuThSa@1700 [facility] Stop: 03/05/20 17:01 Sodium Chloride () 10 - 40 ml IV UD PRN PRN Reason: SALINE FLUSH Last Admin: 07/14/19 15:05 Dose: 20 ml Documented by: STROKE Vital Signs/Narrative: Vital Signs Temp Pulse Resp BP Pulse Ox 07/15/19 07:00 104 H 17 127/76 H 98 07/15/19 06:00 99.3 F H 105 H 19 H 125/78 H 97 07/15/19 05:00 114 H 19 H 111/72 96 07/15/19 04:00 106 H 16 117/77 96 07/15/19 03:40 108 H 19 H 98 07/15/19 03:26 107 H Medical Necessity - Tobacco Use Smoking Status: Former smoker Assessment/Plan All Active Problems (Last Reviewed 07/14/19 @ 12:[address] Jacob Boswell MD) Pneumonia (Acute) Influenza (Acute) Respiratory failure (Acute) Respiratory failure (Acute) Pneumonia (Acute) Healthcare-associated pneumonia (Acute) Problem with dialysis access (Resolved) History of cytomegalovirus infection (Resolved) Sepsis (Acute) Pneumonia, bacterial (Resolved) History of renal transplant (Resolved) Patient is a 48-year-old lady presented to the emergency department with progressive generalized weakness lethargy and shortness of breath 1. Severe sepsis ?Secondary to acute influenza A infection with superimposed bacterial pneumonia right upper lobe and lung base pneumonic consolidation. Cultures were obtained in the emergency department patient did receive IV fluids per protocol. Subsequently started on antiviral medication (Tamiflu) in addition to cefepime Levaquin and vancomycin?patient remains in ICU ?07/15/2019: Patient remains in ICU still on the vent and febrile. 2. Acute hypoxic respiratory failure secondary to influenza A with superimposed pneumonia ?Management as discussed above in addition patient was intubated in the ED admitted to the intensive care unit with consult placed to Dr. Vann with intensive care case discussed with him prior to patient being admitted will defer subsequent vent management ?07/15/2019 patient remains intubated in the ICU management of mechanical ventilation deferred to Dr. Vann with intensive care Case discussed with him. 3. End-stage renal disease Patient did miss dialysis on 07/13/2019. Consult placed to patient's television script writer Dr. Marietta Mcdaniel. Did speak with her plan is for patient to undergo emergency dialysis -07/15/2019 patient underwent dialysis the day prior has been seen by Dr. Marietta Mcdaniel following. 4. Hyperkalemia Secondary to end-stage renal disease patient undergo dialysis for treatment 5. History of renal transplant ?With subsequent rejection 6. History of gastric CA ?Patient in remission following gastrectomy 7. Severe protein calorie malnutrition ?Patient is cachectic, has low BMI of 13.1 in addition to muscle wasting consult placed to dietitian 8. Thrombocytopenia ?Suspected to be secondary to sepsis monitoring serial CBC 9. History of chronic bilateral pleural effusion ?Imaging studies obtained on admission demonstrated presence of patient bilateral pleural effusion 10. DVT prophylaxis ?Bilateral SCDs Chemoprophylaxis contraindicated in view of patient's low platelet count 11. Hypoglycemia ?Patient had hypoglycemia episode during the evening with glucose dropping to 25. Resuscitated with dextrose 12. Anemia ?Secondary to anemia of end-stage renal disease monitoring H&H with plans to transfuse if patient becomes symptomatic or hemoglobin falls below 7 13. 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
--- NOTE | 2019-07-15 08:22 | RAD_ITS ---
EXAM DESCRIPTION: PORTABLE AP CHEST CLINICAL HISTORY: 48 years Female, PNEUMONIA PNEUMONIA COMPARISON: Previous portable chest obtained on 07/14/2019 FINDINGS: Endotracheal tube is noted in place in good position. The previously noted NG tube has been removed. The rest of the thorax is intact. The heart and mediastinum appear to be within normal limits. The patchy pneumonic consolidation is noted involving the right upper lobe and in the right lung base. Moderate-sized bibasilar pleural effusions are identified more pronounced on the left. RAD/Chest 1 View (Portable) IMPRESSION: Right upper lobe and right lung base pneumonic consolidations which are unchanged in this patient with moderate sized bibasilar pleural effusions which also are unchanged. Electronically Signed: Vijay Shanks, at 10:54 EST Tel , Service support ,
[2019-07-15 08:50] LABS: Hepatitis B Surface Antibody Non-Reactive; Hepatitis B Surface Antigen Non-Reactive (Nonreactive)
--- NOTE | 2019-07-15 08:58 | PN.RENAL_ITS ---
Patient Problems: Active and Suspected Problems (Last Reviewed 07/14/19 @ 12:[address] Jacob Boswell MD) Pneumonia (Acute) Influenza (Acute) Respiratory failure (Acute) Respiratory failure (Acute) Pneumonia (Acute) Subjective: Awake, responsive on vent support. Blood pressure stable. Received hemodialysis yesterday. Tolerated only 400 cc fluid removal. dialysis this morning. Await chest x-ray. We will see how much fluid removal she can tolerate on dialysis today. - Physical Exam Vitals/I&O's: Vital Signs Temp Pulse Resp BP Pulse Ox 99.3 F H 103 H 18 127/76 H 99 07/15/19 06:00 07/15/19 08:39 07/15/19 08:39 07/15/19 07:00 07/15/19 08:39 Oxygen Flow Rate (L/min) 15 Oxygen Delivery Method Mechanical Ventilator Weight: 28.7 kg Body Mass Index (BMI) 13.3 Finger Stick Blood Glucose 104 Intake and Output for Last 24 Hours 07/13/19 07/14/19 07/15/19 23:59 23:59 23:59 Intake Total 1120.22 / 1122.02 509.0 / 509.0 Output Total 550 / 625 85 / 85 Balance 570.22 / 497.02 424.0 / 424.0 General: Alert, Oriented x3, - - On vent Oral: Moist Mucosa Lungs: Clear to auscultation, Rales - Right base posteriorly, - Cardiovascular: Regular rate Abdomen: Bowel Sounds Present, Soft, Non Tender Extremities: No edema Psych/Mental Status: Normal Affect, Appropriate Microbiology Past 72 Hours 07/14/19 11:35 Urine Catheter - Bethea Streptococcus pneumoniae Antigen (M - Final 07/14/19 11:35 Urine Catheter - Bethea Legionella Antigen - Final 07/14/19 09:13 Mucosa - Nose Influenza Types A,B Direct FA (SKY) - Final Influenzae A Laboratory Results 07/14/19 09:57: WBC 11.6 H, RBC 3.63 L, Hgb 12.6, Hct 38.7, MCV 106.6 H, MCH 34.7 H, MCHC 32.6, RDW Std Deviation 57.1 H, RDW Coeff of Fabrice 14.6, Plt Count 116 L, MPV 12.4 H, Immature Gran % (Auto) 0.600, Neut % (Auto) 93.7 H, Lymph % (Auto) 1.9 L, [place] % (Auto) 2.8, Eos % (Auto) 0.8, Baso % (Auto) 0.2, Absolute Neuts (auto) 10.9 H, Absolute Lymphs (auto) 0.22 L, Nucleated RBC % 0.3, Polychromasia RARE, Macrocytosis 1+, Ovalocytes RARE, Schistocytes RARE 07/14/19 09:57: Sodium 132 L, Potassium 6.1 H*, Chloride 97 L, Carbon Dioxide 23.0, Anion Gap 12, BUN 108 H*, Creatinine 6.29 H, Estim Creat Clear Calc 5.13, Est GFR (MDRD) Af Amer 9 L, Est GFR (MDRD) Non-Af 8 L, BUN/Creatinine Ratio 17.2, Glucose 45 L, Calcium 7.7 L, Total Bilirubin 0.50, AST 76 H, ALT 85 H, Alkaline Phosphatase 312 H, Troponin I 0.017, Total Protein 7.4, Albumin 2.5 L, Globulin 4.9 H, Albumin/Globulin Ratio 0.5 L 07/14/19 09:57: PT 13.0, INR 1.0, APTT 40.1 H 07/14/19 10:45: Lactic Acid 2.3 H* 07/14/19 11:35: Urine Color Yellow, Urine Clarity Sl. Cloudy, Urine pH 6.0, Ur Specific [place] 1.015, Urine Protein 100 H, Urine Glucose (UA) Normal, Urine Ketones Negative, Urine Occult Blood 10 H, Urine Nitrite Negative, Urine Bilirubin Negative, Urine Urobilinogen Normal, Ur Leukocyte Esterase Negative, Urine RBC 0-5 SEEN, Urine WBC 0 SEEN, Ur Squamous Epith Cells 0 SEEN, Urine Bacteria RARE, Urine Mucus 0 SEEN 07/14/19 12:05: Specimen Type ART, Sample Site R Brachial, pH 7.24 L, Bicarbonate Actual 22.4, POC Total CO2 24, Base Excess -5 L, O2 Saturation 98, O2 % 80, ABG pCO2 52.0 H, ABG pO2 115 H, [place]asper Test NA, Respiration Rate 15, O2 Delivery Device Vent, Vent Mode A-C, Tidal Volume 250, POC PEEP 5, Blood Gas Notified Whom ED , Blood Gas Notified Time 1204 07/14/19 13:38: Specimen Type ART, Sample Site R Brachial, pH 7.34 L, Bicarbonate Actual 26.7 H, POC Total CO2 28, Base Excess 1, O2 Saturation 94 L, O2 % 60, ABG pCO2 49.4 H, ABG pO2 77, [place]asper Test NA, Respiration Rate 16, O2 Delivery Device Vent, Vent Mode A-C, Tidal Volume 300, POC PEEP 5, Blood Gas Notified Whom ICU , Blood Gas Notified Time 1337 07/14/19 14:25: MRSA (PCR) Negative 07/14/19 15:05: Lactic Acid 1.1 07/14/19 17:10: Hep B Core Total Ab Pending 07/14/19 17:10: Hep Bs Antigen Non-Reactive, Hep Bs Antibody Non-Reactive 07/14/19 17:57: POC Glucose 75 07/14/19 23:56: POC Glucose 26 L* 07/15/19 00:05: Glucose 45 L 07/15/19 00:22: POC Glucose 233 H 07/15/19 02:11: POC Glucose 81 07/15/19 04:11: POC Glucose 49 L 07/15/19 04:20: WBC 10.3, RBC 2.84 L, Hgb 9.9 L, Hct 30.1 L, MCV 106.0 H, MCH 34.9 H, MCHC 32.9, RDW Std Deviation 58.3 H, RDW Coeff of Fabrice 14.9 H, Plt Count 82 L, MPV 12.8 H, Immature Gran % (Auto) 1.800 H, Neut % (Auto) 92.9 H, Lymph % (Auto) 2.7 L, [place] % (Auto) 2.5, Eos % (Auto) 0.0, Baso % (Auto) 0.1, Absolute Neuts (auto) 9.5 H, Absolute Lymphs (auto) 0.28 L, Nucleated RBC % 0.3, Differential Comment SCANNED 07/15/19 04:20: Sodium 134 L, Potassium 4.6, Chloride 97 L, Carbon Dioxide 26.0, Anion Gap 11, BUN 43 H, Creatinine 3.22 H, Estim Creat Clear Calc 9.79, Est GFR (MDRD) Af Amer 20 L, Est GFR (MDRD) Non-Af 16 L, BUN/Creatinine Ratio 13.4, Glucose 149 H, Calcium 7.1 L 07/15/19 04:34: POC Glucose 257 H 07/15/19 06:05: POC Glucose 100 Current Medications Chlorhexidine Gluconate () 15 ml PO BID [facility] Last Admin: 07/14/19 21:32 Dose: 15 ml Documented by: Famotidine (Pepcid) 20 mg GT DAILY [facility] Glucagon () 1 mg IM .X1 PRN PRN Reason: Hypoglycemia Heparin Sodium (Porcine) (Heparin Na) 5,000 unit SC Q12 [facility] Last Admin: 07/14/19 21:32 Dose: 5,000 unit Documented by: Propofol (Diprivan) 1,000 mg in 100 mls @ 1.764 mls/hr CONT INF .Q12H [facility]; Protocol Last Titration: 07/15/19 07:00 Dose: 0 mcg/kg/min, 0 mls/hr Documented by: Sodium Chloride () 250 mls @ 15 mls/hr IV .[id number] PRN PRN Reason: Saline Flush Sodium Chloride () 250 mls @ 15 mls/hr IV .[id number] PRN PRN Reason: Additional IVPB Infusion Dextrose (Dextrose 10%-Water) 250 mls @ 999 mls/hr IV .Q16M PRN; Protocol PRN Reason: HYPOGLYCEMIA Last Infusion: 07/15/19 04:38 Dose: Infused Documented by: Cefepime HCl 0.5 gm/ Sodium (Chloride) 50 mls @ 100 mls/hr IV Q24H [facility] Fentanyl () 100 mls @ 2.5 mls/hr IV UD [facility]; Protocol Last Admin: 07/14/19 17:12 Dose: Not Given Documented by: Oseltamivir Phosphate (Tamiflu) 30 mg PO TuThSa@1700 [facility] Stop: 07/22/19 17:01 Sodium Chloride () 10 - 40 ml IV UD PRN PRN Reason: SALINE FLUSH Last Admin: 07/14/19 15:05 Dose: 20 ml Documented by: Medical Necessity - Tobacco Use Smoking Status: Former smoker Assessment/Plan All Active Problems (Last Reviewed 07/14/19 @ 12:[address] Jacob Boswell MD) Pneumonia (Acute) Influenza (Acute) Respiratory failure (Acute) Respiratory failure (Acute) Pneumonia (Acute) Healthcare-associated pneumonia (Acute) Problem with dialysis access (Resolved) History of cytomegalovirus infection (Resolved) Sepsis (Acute) Pneumonia, bacterial (Resolved) History of renal transplant (Resolved) 1. 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 Hx LUR kidney tx 02/21/2010 from adopted mom. HD today to return back to chronic schedule. Fluid removal as tolerated. Repeat chest x-ray today 2. acute respiratory failure s/p intubation 3. Acute pneumonia with consolidation in compromised host. Check vanco levels prior to redosing 4. FTT s/p peg for feedings 5. chronic pleural effusion 6. Influenza A positive 7. Anemia hgb stable. RICKY therapy with dialysis 8. Hyperkalemia resolved with dialysis 9. STach with hx anxiety on dialysis
[2019-07-15] MEDS: Propofol 10MG/Ml 1,000 MG/100 ML Bottle 1.8 MG CONT INF ×2 (10:14→21:10)
[2019-07-15] MEDS: Epoetin Alfa epbx 10,000 UNITS/ML 6000 UNIT SC (10:14)
[2019-07-15] MEDS: Chlorhexidine 15 ML PO ×2 (10:14→21:05)
--- NOTE | 2019-07-15 10:19 | CASEMGMT ---
RN CM Assessment Note Presentation: ESRD, Resp Failure with intubation. Intro role of CM and purpose of RN CM assessment to patient's mother and father in ICU interdisciplinary rounds, then met with mother in room. Pt is on ventilator, opening eyes but not participating in assessment. is not available because he has the flu at home and is not able to speak on phone this am. Pt's mother is able to assist with questions, and when is feeling better, CM will include him in dc planning. -Pt does own tube feedings at home. PCP: Dr. Gregory Specialists: Dr. Giraldo, pain management ghada. At [facility]: Dr. Mcdaniel, nephrology, Dr. Vann Pulmonology [facility] Insurance: MMO Prescription Benefit: yes LNOK : Leonila Valverde Living Arrangements: Lives in two story home with bathroom on second floor only. Pt was not using ambulatory DME, but per mother- pt has been progressively weaker since and has been having increased difficulty at home. has assisted her with care needs, and per mother has been managing most cooking, home chores. pt does own tube feedings at home. Transportation: drives pt to dialysis and pt's father picks her up. does most driving to appointments. DME: home oxygen, mother not sure which DME company. States pt has concentrator and portability at home. HHC/SNF: none. Patient DC goals: undetermined DC PLAN: undetermined. CM will continue to follow and assist with dc needs. Anticipate SNF may be benefical due to fpc history of weakness, malnutrition and now respiratory fail. RN CM let mother know CM will follow and work with pt//family to determine dc needs. Khang WEIN RN ACM
--- NOTE | 2019-07-15 10:24 | NT.THERAPY_ITS ---
Nutrition Therapy Report - History Nutrition Services has been consulted to:: Manage enteral nutrition Current diet / nutrition support order:: No diet order; Intubated with PEG tube - Anthropometric Measurements Height:: 4 ft 11 in Weight:: 28.7 kg Body Mass Index (BMI):: 12.7 - Relevant Labs Relevant Labs:: WBC 11.6 K/mm3 (4.4-11.0) H 07/14/19 09:57 RBC 2.84 M/mm3 (4.2-5.4) L 07/15/19 04:20 Hgb 9.9 g/dL (12.0-15.0) L 07/15/19 04:20 Hct 30.1 % (37-47) L 07/15/19 04:20 MCV 106.0 fL (81-99) H 07/15/19 04:20 MCH 34.9 pg (27.0-32.0) H 07/15/19 04:20 RDW Std Deviation 58.3 fl (35.1-43.9) H 07/15/19 04:20 RDW Coeff of Fabrice 14.9 % (11.6-14.6) H 07/15/19 04:20 Plt Count 82 K/mm3 (150-450) L 07/15/19 04:20 MPV 12.8 fl (6.2-12.0) H 07/15/19 04:20 Immature Gran % (Auto) 1.800 % (0.0-0.9) H 07/15/19 04:20 Neut % (Auto) 92.9 % (47-70) H 07/15/19 04:20 Lymph % (Auto) 2.7 % (19-41) L 07/15/19 04:20 Absolute Neuts (auto) 9.5 X10^3/uL (2.0-7.7) H 07/15/19 04:20 Absolute Lymphs (auto) 0.28 X10^3/uL (0.83-4.51) L 07/15/19 04:20 APTT 40.1 Seconds (24.1-36.2) H 07/14/19 09:57 Sodium 134 mmol/L (136-145) L 07/15/19 04:20 Potassium 6.1 mmol/L (3.5-5.1) H* 07/14/19 09:57 Chloride 97 mmol/L (98-107) L 07/15/19 04:20 BUN 43 mg/dL (7-18) H 07/15/19 04:20 Creatinine 3.22 mg/dL (0.55-1.02) H 07/15/19 04:20 Est GFR (MDRD) Af Amer 20 mL/min (>60) L 07/15/19 04:20 Est GFR (MDRD) Non-Af 16 mL/min (>60) L 07/15/19 04:20 Glucose 149 mg/dL (74-106) H 07/15/19 04:20 Lactic Acid 2.3 mmol/L (0.4-1.9) H* 07/14/19 10:45 Calcium 7.1 mg/dL (8.5-10.1) L 07/15/19 04:20 AST 76 U/L (15-37) H 07/14/19 09:57 ALT 85 U/L (13-56) H 07/14/19 09:57 Alkaline Phosphatase 312 U/L (45-117) H 07/14/19 09:57 Albumin 2.5 g/dL (3.2-5.0) L 07/14/19 09:57 Globulin 4.9 g/dL (2.2-4.2) H 07/14/19 09:57 Albumin/Globulin Ratio 0.5 RATIO (0.9-2.4) L 07/14/19 09:57 - Assessment Food / Nutrition-Related History:: Discussed in ICU rounds-- Dr. Vann to intitate TF this day. [facility]. Per RN note pt w/ OG tube removed as pt w/ functional PEG tube. Per EMR pt underwent emergency dialysis yesterday, 07/14, pt to undergo dialysis this day. Wt decrease of 1.2 kg since previous review w/ CBW 28.7kg. UBW per review of EMR & parents input on admission~70 lbs so, ~5-6% calculated wt loss over the recent past due to not feeling well/illness. 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 +NFPA as per view--pt exhibits all signs/sx of severe pro/jd malnutrition. [ End ] - Nutrition Diagnosis Problem / Etiology / Signs & Symptoms (PES):: Per ASPEN guidelines severe malnutrition in the context of chronic illness related to altered GI function as evidenced by wt loss >5% x 1 month , NFPA exhibiting all signs of severe pro/jd malnutrition, poor PO intake dining room captain, and pt history of inadequate nutrition & pro/jd malnutrition. Evidence of Malnutrition Exists:: Yes Severe PCM:: Chronic Illness - Nutrition Intervention Nutrition Prescription:: Estimated nutrition needs: [id number] calories, 40-50g protein. - Food / Nutrient Delivery Interventions Summary of nutrition intervention:: Will monitor pt closely for signs/symptoms of refeeding syndrome especially given severe pro/jd malnutrition & very low BMI 12.8. Nutrition support ordered as / adjusted to:: Rec start with Vital AF 1.2 Jd at 15 ml/hr & increase as rima by 5 ml/hr Q 4-6 hours to goal rate 30 ml/hr. TF at goal rate will provide 864 kcal, 54 gm protein & 584 ml free water. If water flushes indicated after HD & volume status improved, suggest 70 ml water flush Q 6 hours for an additional 280 ml free water (total 864 ml free water/day). Nutrition education provided?: No - MNT Monitoring Further MNT monitoring and evaluation required?: Yes - Will monitor intiation of TF support, wt, labs & follow-up. MNT Follow-up in:: 3-5 days
--- NOTE | 2019-07-15 11:01 | CASEMGMT ---
RN CM Assessment Note Presentation: ESRD, Resp Failure with intubation. Intro role of CM and purpose of RN CM assessment to patient's mother and father in ICU interdisciplinary rounds, then met with mother in room. Pt is on ventilator, opening eyes but not participating in assessment. is not available because he has the flu at home and is not able to speak on phone this am. Pt's mother is able to assist with questions, and when is feeling better, CM will include him in dc planning. -Pt does own tube feedings at home. PCP: Dr. Gregory Specialists: At [facility]: Dr. Mcdaniel, nephrology, Dr. Vann Pulmonology Preferred [facility]acy: [facility] Insurance: MMO Prescription Benefit: yes LNOK : Leonila Valverde Living Arrangements: Lives in two story home with bathroom on second floor only. Pt was not using ambulatory DME, but per mother- pt has been progressively weaker since and has been having increased difficulty at home. has assisted her with care needs, and per mother has been managing most cooking, home chores. pt does own tube feedings at home. Transportation: drives pt to dialysis and pt's father picks her up. does most driving to appointments. DME: home oxygen, mother not sure which DME company. States pt has concentrator and portability at home. HHC/SNF: none. Patient DC goals: undetermined DC PLAN: undetermined. CM will continue to follow and assist with dc needs. Anticipate SNF may be benefical due to prison history of weakness, malnutrition and now respiratory fail. RN CM let mother know CM will follow and work with pt//family to determine dc needs. Khang BRAXTON RN ACM
--- NOTE | 2019-07-15 12:24 | DIALYSIS ---
Pt comleted 3 hours hemodialysis with 1 liter fluid removed. Right arm fistula stasis obtained after needles removed. Report given to Buck MILLAN.
[2019-07-15] MEDS: fentaNYL drip 100 ML 2.5 MCG IV (13:17)
[2019-07-15] MEDS: Famotidine 20 MG Tablet GT (13:18)
[2019-07-15] MEDS: Vital AF 1.2 Cal Liquid 1,000 ML 30 ML GT (13:23)
--- NOTE | 2019-07-15 14:53 | CHAPLAIN ---
Type of Pastoral Visit ___ Initial Visit _x__ Follow-up Visit ___ On-call Visit ___ General Patient Visit ___ Spiritual Assessment ___ Family Conference ___ Bereavement ___ Rapid Response ___ Code Blue ___ Other (describe below) Pastoral Care Referral From ___ Patient _x__ Family ___ Nurse ___ Physician ___ Fabric Sourcer ___ Purchasing Contracting Clerk ___ Other (describe below) Sacrament/Intervention ___ Active listening ___ Anointing ___ Orthodoxy ___ Bereavement ___ Communion ___ Esmer exploration ___ ___ Life review _x__ Prayer ___ Reconciliation ___ Sacrament of Sick _x__ Supportive presence ___ Wedding ___ Other (describe below) Pastoral Comments patient opened her eyes and nodded head in approval; father of pt is with her and seeks prayer support; offer of presence and support given to father; father talks about the patient's history of poor health
[2019-07-15] MEDS: Oseltamivir Phosphate 30 MG Capsule PO (18:22)
[2019-07-15 18:46] LABS: Bedside Glucose 92 mg/dL (70-110)
[2019-07-16] VITALS (42 sets, daily range): BP systolic 82–158; BP diastolic 59–101; PULSE 73–114; RESP 13–27; TEMP 36.5–37.1; O2SAT 86–96
[2019-07-16 00:35] LABS: Bedside Glucose 86 mg/dL (70-110)
[2019-07-16 04:16] LABS: Absolute Lymphocyte Count 0.34 X10^3/uL (0.83-4.51); Absolute Neutrophil Count 6.4 X10^3/uL (2.0-7.7); Basophil# 0.01 X10^3/uL; Basophil% 0.1 % (0-1); Eosinophil# 0.17 X10^3/uL; Eosinophils% 2.4 % (0-5); Hematocrit 30.3 % (37-47); Hemoglobin 9.6 g/dL (12.0-15.0); Lymphocyte # 0.34 X10^3/ul (4.0); Lymphocyte % 4.8 % (19-41); Mean Corp Hgb Conc 31.7 g/dL (32-36); Mean Corpuscular Volume 107.4 fL (81-99); Mean Platelet Vol. 13.2 fl (6.2-12.0); Monocyte# 0.13 X10^3/uL; Monocyte% 1.8 % (0-10); NRBC Flagged by Analyzer 0.3 % (0-5); Neutrophil # 6.38 X10^3/uL (2.7-7.7); Neutrophil % 90.2 % (47-70); POSITIVE COUNT YES; POSITIVE DIFFERENTIAL YES; POSITIVE MORPHOLOGY YES; Platelet Count 72 K/mm3 (150-450); RBC Distribution Width CV 15.5 % (11.6-14.6); RBC Distribution Width SD 61.4 fl (35.1-43.9); Red Blood Count 2.82 M/mm3 (4.2-5.4); White Blood Count 7.1 K/mm3 (4.4-11.0)
[2019-07-16 04:30] LABS: Differential Indicated SCAN CRITERIA MET
[2019-07-16 04:33] LABS: Anion Gap 10 (5-15); BUN 35 mg/dL (7-18); Calcium,Total 7.4 mg/dL (8.5-10.1); Chloride 100 mmol/L (98-107); Creatinine, Serum 2.69 mg/dL (0.55-1.02); EST Glomerular Filtration Rate 20 mL/min (>60); Est Glom Filt Rate - Afr Amer 24 mL/min (>60); Estimated Creatinine Clearance 11.71 ml/min; Glucose 86 mg/dL (74-106); Sodium Level 135 mmol/L (136-145)
[2019-07-16 04:42] LABS: Anisocytosis RARE; Differential Comment SCANNED; Platelet Estimate MOD DEC (ADEQ); Reactive Lymphocyte RARE; Red Cell Morphology NORM C+C NORMAL (NORM C&C)
[2019-07-16 05:44] LABS: Hepatitis B Core Ab Total Negative (Negative)
[2019-07-16 06:16] LABS: Bedside Glucose 103 mg/dL (70-110)
--- NOTE | 2019-07-16 06:45 | PN_ITS ---
Subjective: The patient was seen and examined at the bedside this morning. Events from the last 24 hours have been reviewed. The patient is currently afebrile, hemodynamically stable and maintaining appropriate oxygen saturations on assist control mode mechanical ventilation with an FiO2 requirement of 30%. The patient failed her spontaneous breathing trial this morning due to tachypnea and a great deal of anxiety. The patient did tolerate hemodialysis yesterday with 1 L of fluid removed. Objective: The patient's most recent lab work, culture data and imaging studies have all been personally reviewed. Rapid influenza screen was positive for influenza A. Strep and urine Legionella antigens were negative. Blood, urine and sputum cultures have been unrevealing to date. General: Alert, Cooperative, No apparent distress, - - Remains intubated and mechanically ventilated. No ventilator dyssynchrony noted. HEENT: Atraumatic, PERRLA, Normocephalic Oral: No Gingival or Mucosal Lesions/ Ulcerations, - - Endotracheal and OG tubes remain in place. Neck: Supple, No Nodes, Trachea Midline Lungs: No rhonchi, No wheeze, Diminished - Lung bases Cardiovascular: Regular rate, Regular Rhythm, Normal S1, Normal S2 Abdomen: Bowel Sounds Present, Soft, Non Tender Extremities: No clubbing, No cyanosis, No edema Skin: No breakdown Musculoskeletal: Cachexia, Muscle Wasting Lymphatic: No Cervical, Supraclavicular, or Inguinal Adenopathy Neurological: - - No focal neurological deficits. Psych/Mental Status: Flat Affect Vital Signs Temp Pulse Resp BP Pulse Ox 98.3 F 99 17 123/75 H 94 07/16/19 00:00 07/16/19 06:00 07/16/19 06:00 07/16/19 06:00 07/16/19 06:00 Oxygen Flow Rate (L/min) 15 Oxygen Delivery Method Mechanical Ventilator Weight: 63 lb 4.363 oz Body Mass Index (BMI) 12.7 Finger Stick Blood Glucose 104 Intake and Output for Last 24 Hours 07/14/19 07/15/19 07/16/19 23:59 23:59 23:59 Intake Total 1120.22 / 1122.02 758.49 / 976.29 427.10 / 427.10 Output Total 550 / 625 1085 / 1095 35 / 35 Balance 570.22 / 497.02 -326.51 / -118.71 392.10 / 392.10 Labs (Last 48 Hours) 07/14/19 07/14/19 07/14/19 09:57 09:57 09:57 WBC 11.6 H RBC 3.63 L Hgb 12.6 Hct 38.7 MCV 106.6 H MCH 34.7 H MCHC 32.6 RDW Std Deviation 57.1 H RDW Coeff of Fabrice 14.6 Plt Count 116 L MPV 12.4 H Immature Gran % (Auto) 0.600 Neut % (Auto) 93.7 H Lymph % (Auto) 1.9 L [place] % (Auto) 2.8 Eos % (Auto) 0.8 Baso % (Auto) 0.2 Absolute Neuts (auto) 10.9 H Absolute Lymphs (auto) 0.22 L Nucleated RBC % 0.3 Differential Comment Reactive Lymphocytes Platelet Estimate RBC Morphology Polychromasia RARE Anisocytosis Macrocytosis 1+ Ovalocytes RARE Schistocytes RARE PT 13.0 INR 1.0 APTT 40.1 H Specimen Type Sample Site pH Bicarbonate Actual POC Total CO2 Base Excess O2 Saturation O2 % ABG pCO2 ABG pO2 Jasper Test Respiration Rate O2 Delivery Device Vent Mode Tidal Volume POC PEEP Blood Gas Notified Whom Blood Gas Notified Time Sodium 132 L Potassium 6.1 H* Chloride 97 L Carbon Dioxide 23.0 Anion Gap 12 BUN 108 H* Creatinine 6.29 H Estim Creat Clear Calc 5.13 Est GFR (MDRD) Af Amer 9 L Est GFR (MDRD) Non-Af 8 L BUN/Creatinine Ratio 17.2 Glucose 45 L Lactic Acid Calcium 7.7 L Total Bilirubin 0.50 AST 76 H ALT 85 H Alkaline Phosphatase 312 H Troponin I 0.017 Total Protein 7.4 Albumin 2.5 L Globulin 4.9 H Albumin/Globulin Ratio 0.5 L Urine Color Urine Clarity Urine pH Ur Specific [place] Urine Protein Urine Glucose (UA) Urine Ketones Urine Occult Blood Urine Nitrite Urine Bilirubin Urine Urobilinogen Ur Leukocyte Esterase Urine RBC Urine WBC Ur Squamous Epith Cells Urine Bacteria Urine Mucus Hep Bs Antigen Hep Bs Antibody Hep B Core Total Ab MRSA (PCR) POC Glucose 07/14/19 07/14/19 07/14/19 10:45 11:35 12:05 WBC RBC Hgb Hct MCV MCH MCHC RDW Std Deviation RDW Coeff of Fabrice Plt Count MPV Immature Gran % (Auto) Neut % (Auto) Lymph % (Auto) [place] % (Auto) Eos % (Auto) Baso % (Auto) Absolute Neuts (auto) Absolute Lymphs (auto) Nucleated RBC % Differential Comment Reactive Lymphocytes Platelet Estimate RBC Morphology Polychromasia Anisocytosis Macrocytosis Ovalocytes Schistocytes PT INR APTT Specimen Type ART Sample Site R Brachial pH 7.24 L Bicarbonate Actual 22.4 POC Total CO2 24 Base Excess -5 L O2 Saturation 98 O2 % 80 ABG pCO2 52.0 H ABG pO2 115 H Jasper Test NA Respiration Rate 15 O2 Delivery Device Vent Vent Mode A-C Tidal Volume 250 POC PEEP 5 Blood Gas Notified Whom ED Blood Gas Notified Time 1204 Sodium Potassium Chloride Carbon Dioxide Anion Gap BUN Creatinine Estim Creat Clear Calc Est GFR (MDRD) Af Amer Est GFR (MDRD) Non-Af BUN/Creatinine Ratio Glucose Lactic Acid 2.3 H* Calcium Total Bilirubin AST ALT Alkaline Phosphatase Troponin I Total Protein Albumin Globulin Albumin/Globulin Ratio Urine Color Yellow Urine Clarity Sl. Cloudy Urine pH 6.0 Ur Specific [place] 1.015 Urine Protein 100 H Urine Glucose (UA) Normal Urine Ketones Negative Urine Occult Blood 10 H Urine Nitrite Negative Urine Bilirubin Negative Urine Urobilinogen Normal Ur Leukocyte Esterase Negative Urine RBC 0-5 SEEN Urine WBC 0 SEEN Ur Squamous Epith Cells 0 SEEN Urine Bacteria RARE Urine Mucus 0 SEEN Hep Bs Antigen Hep Bs Antibody Hep B Core Total Ab MRSA (PCR) POC Glucose 07/14/19 07/14/19 07/14/19 13:38 14:25 15:05 WBC RBC Hgb Hct MCV MCH MCHC RDW Std Deviation RDW Coeff of Fabrice Plt Count MPV Immature Gran % (Auto) Neut % (Auto) Lymph % (Auto) [place] % (Auto) Eos % (Auto) Baso % (Auto) Absolute Neuts (auto) Absolute Lymphs (auto) Nucleated RBC % Differential Comment Reactive Lymphocytes Platelet Estimate RBC Morphology Polychromasia Anisocytosis Macrocytosis Ovalocytes Schistocytes PT INR APTT Specimen Type ART Sample Site R Brachial pH 7.34 L Bicarbonate Actual 26.7 H POC Total CO2 28 Base Excess 1 O2 Saturation 94 L O2 % 60 ABG pCO2 49.4 H ABG pO2 77 Jasper Test NA Respiration Rate 16 O2 Delivery Device Vent Vent Mode A-C Tidal Volume 300 POC PEEP 5 Blood Gas Notified Whom ICU Blood Gas Notified Time 1337 Sodium Potassium Chloride Carbon Dioxide Anion Gap BUN Creatinine Estim Creat Clear Calc Est GFR (MDRD) Af Amer Est GFR (MDRD) Non-Af BUN/Creatinine Ratio Glucose Lactic Acid 1.1 Calcium Total Bilirubin AST ALT Alkaline Phosphatase Troponin I Total Protein Albumin Globulin Albumin/Globulin Ratio Urine Color Urine Clarity Urine pH Ur Specific [place] Urine Protein Urine Glucose (UA) Urine Ketones Urine Occult Blood Urine Nitrite Urine Bilirubin Urine Urobilinogen Ur Leukocyte Esterase Urine RBC Urine WBC Ur Squamous Epith Cells Urine Bacteria Urine Mucus Hep Bs Antigen Hep Bs Antibody Hep B Core Total Ab MRSA (PCR) Negative POC Glucose 07/14/19 07/14/19 07/14/19 17:10 17:10 17:57 WBC RBC Hgb Hct MCV MCH MCHC RDW Std Deviation RDW Coeff of Fabrice Plt Count MPV Immature Gran % (Auto) Neut % (Auto) Lymph % (Auto) [place] % (Auto) Eos % (Auto) Baso % (Auto) Absolute Neuts (auto) Absolute Lymphs (auto) Nucleated RBC % Differential Comment Reactive Lymphocytes Platelet Estimate RBC Morphology Polychromasia Anisocytosis Macrocytosis Ovalocytes Schistocytes PT INR APTT Specimen Type Sample Site pH Bicarbonate Actual POC Total CO2 Base Excess O2 Saturation O2 % ABG pCO2 ABG pO2 Jasper Test Respiration Rate O2 Delivery Device Vent Mode Tidal Volume POC PEEP Blood Gas Notified Whom Blood Gas Notified Time Sodium Potassium Chloride Carbon Dioxide Anion Gap BUN Creatinine Estim Creat Clear Calc Est GFR (MDRD) Af Amer Est GFR (MDRD) Non-Af BUN/Creatinine Ratio Glucose Lactic Acid Calcium Total Bilirubin AST ALT Alkaline Phosphatase Troponin I Total Protein Albumin Globulin Albumin/Globulin Ratio Urine Color Urine Clarity Urine pH Ur Specific [place] Urine Protein Urine Glucose (UA) Urine Ketones Urine Occult Blood Urine Nitrite Urine Bilirubin Urine Urobilinogen Ur Leukocyte Esterase Urine RBC Urine WBC Ur Squamous Epith Cells Urine Bacteria Urine Mucus Hep Bs Antigen Non-Reactive Hep Bs Antibody Non-Reactive Hep B Core Total Ab Negative MRSA (PCR) POC Glucose 75 07/14/19 07/15/19 07/15/19 23:56 00:05 00:22 WBC RBC Hgb Hct MCV MCH MCHC RDW Std Deviation RDW Coeff of Fabrice Plt Count MPV Immature Gran % (Auto) Neut % (Auto) Lymph % (Auto) [place] % (Auto) Eos % (Auto) Baso % (Auto) Absolute Neuts (auto) Absolute Lymphs (auto) Nucleated RBC % Differential Comment Reactive Lymphocytes Platelet Estimate RBC Morphology Polychromasia Anisocytosis Macrocytosis Ovalocytes Schistocytes PT INR APTT Specimen Type Sample Site pH Bicarbonate Actual POC Total CO2 Base Excess O2 Saturation O2 % ABG pCO2 ABG pO2 Japser Test Respiration Rate O2 Delivery Device Vent Mode Tidal Volume POC PEEP Blood Gas Notified Whom Blood Gas Notified Time Sodium Potassium Chloride Carbon Dioxide Anion Gap BUN Creatinine Estim Creat Clear Calc Est GFR (MDRD) Af Amer Est GFR (MDRD) Non-Af BUN/Creatinine Ratio Glucose 45 L Lactic Acid Calcium Total Bilirubin AST ALT Alkaline Phosphatase Troponin I Total Protein Albumin Globulin Albumin/Globulin Ratio Urine Color Urine Clarity Urine pH Ur Specific [place] Urine Protein Urine Glucose (UA) Urine Ketones Urine Occult Blood Urine Nitrite Urine Bilirubin Urine Urobilinogen Ur Leukocyte Esterase Urine RBC Urine WBC Ur Squamous Epith Cells Urine Bacteria Urine Mucus Hep Bs Antigen Hep Bs Antibody Hep B Core Total Ab MRSA (PCR) POC Glucose 26 L* 233 H 07/15/19 07/15/19 07/15/19 02:11 04:11 04:20 WBC 10.3 RBC 2.84 L Hgb 9.9 L Hct 30.1 L MCV 106.0 H MCH 34.9 H MCHC 32.9 RDW Std Deviation 58.3 H RDW Coeff of Fabrice 14.9 H Plt Count 82 L MPV 12.8 H Immature Gran % (Auto) 1.800 H Neut % (Auto) 92.9 H Lymph % (Auto) 2.7 L [place] % (Auto) 2.5 Eos % (Auto) 0.0 Baso % (Auto) 0.1 Absolute Neuts (auto) 9.5 H Absolute Lymphs (auto) 0.28 L Nucleated RBC % 0.3 Differential Comment SCANNED Reactive Lymphocytes Platelet Estimate RBC Morphology Polychromasia Anisocytosis Macrocytosis Ovalocytes Schistocytes PT INR APTT Specimen Type Sample Site pH Bicarbonate Actual POC Total CO2 Base Excess O2 Saturation O2 % ABG pCO2 ABG pO2 Jasper Test Respiration Rate O2 Delivery Device Vent Mode Tidal Volume POC PEEP Blood Gas Notified Whom Blood Gas Notified Time Sodium Potassium Chloride Carbon Dioxide Anion Gap BUN Creatinine Estim Creat Clear Calc Est GFR (MDRD) Af Amer Est GFR (MDRD) Non-Af BUN/Creatinine Ratio Glucose Lactic Acid Calcium Total Bilirubin AST ALT Alkaline Phosphatase Troponin I Total Protein Albumin Globulin Albumin/Globulin Ratio Urine Color Urine Clarity Urine pH Ur Specific [place] Urine Protein Urine Glucose (UA) Urine Ketones Urine Occult Blood Urine Nitrite Urine Bilirubin Urine Urobilinogen Ur Leukocyte Esterase Urine RBC Urine WBC Ur Squamous Epith Cells Urine Bacteria Urine Mucus Hep Bs Antigen Hep Bs Antibody Hep B Core Total Ab MRSA (PCR) POC Glucose 81 49 L 07/15/19 07/15/19 07/15/19 04:20 04:34 06:05 WBC RBC Hgb Hct MCV MCH MCHC RDW Std Deviation RDW Coeff of Fabrice Plt Count MPV Immature Gran % (Auto) Neut % (Auto) Lymph % (Auto) [place] % (Auto) Eos % (Auto) Baso % (Auto) Absolute Neuts (auto) Absolute Lymphs (auto) Nucleated RBC % Differential Comment Reactive Lymphocytes Platelet Estimate RBC Morphology Polychromasia Anisocytosis Macrocytosis Ovalocytes Schistocytes PT INR APTT Specimen Type Sample Site pH Bicarbonate Actual POC Total CO2 Base Excess O2 Saturation O2 % ABG pCO2 ABG pO2 Jasper Test Respiration Rate O2 Delivery Device Vent Mode Tidal Volume POC PEEP Blood Gas Notified Whom Blood Gas Notified Time Sodium 134 L Potassium 4.6 Chloride 97 L Carbon Dioxide 26.0 Anion Gap 11 BUN 43 H Creatinine 3.22 H Estim Creat Clear Calc 9.79 Est GFR (MDRD) Af Amer 20 L Est GFR (MDRD) Non-Af 16 L BUN/Creatinine Ratio 13.4 Glucose 149 H Lactic Acid Calcium 7.1 L Total Bilirubin AST ALT Alkaline Phosphatase Troponin I Total Protein Albumin Globulin Albumin/Globulin Ratio Urine Color Urine Clarity Urine pH Ur Specific [place] Urine Protein Urine Glucose (UA) Urine Ketones Urine Occult Blood Urine Nitrite Urine Bilirubin Urine Urobilinogen Ur Leukocyte Esterase Urine RBC Urine WBC Ur Squamous Epith Cells Urine Bacteria Urine Mucus Hep Bs Antigen Hep Bs Antibody Hep B Core Total Ab MRSA (PCR) POC Glucose 257 H 100 07/15/19 07/16/19 07/16/19 18:39 00:31 04:10 WBC 7.1 RBC 2.82 L Hgb 9.6 L Hct 30.3 L MCV 107.4 H MCH 34.0 H MCHC 31.7 L RDW Std Deviation 61.4 H RDW Coeff of Fabrice 15.5 H Plt Count 72 L MPV 13.2 H Immature Gran % (Auto) 0.700 Neut % (Auto) 90.2 H Lymph % (Auto) 4.8 L [place] % (Auto) 1.8 Eos % (Auto) 2.4 Baso % (Auto) 0.1 Absolute Neuts (auto) 6.4 Absolute Lymphs (auto) 0.34 L Nucleated RBC % 0.3 Differential Comment SCANNED Reactive Lymphocytes RARE Platelet Estimate MOD DEC RBC Morphology NORM C+C Polychromasia Anisocytosis RARE Macrocytosis Ovalocytes Schistocytes PT INR APTT Specimen Type Sample Site pH Bicarbonate Actual POC Total CO2 Base Excess O2 Saturation O2 % ABG pCO2 ABG pO2 Jasper Test Respiration Rate O2 Delivery Device Vent Mode Tidal Volume POC PEEP Blood Gas Notified Whom Blood Gas Notified Time Sodium Potassium Chloride Carbon Dioxide Anion Gap BUN Creatinine Estim Creat Clear Calc Est GFR (MDRD) Af Amer Est GFR (MDRD) Non-Af BUN/Creatinine Ratio Glucose Lactic Acid Calcium Total Bilirubin AST ALT Alkaline Phosphatase Troponin I Total Protein Albumin Globulin Albumin/Globulin Ratio Urine Color Urine Clarity Urine pH Ur Specific [place] Urine Protein Urine Glucose (UA) Urine Ketones Urine Occult Blood Urine Nitrite Urine Bilirubin Urine Urobilinogen Ur Leukocyte Esterase Urine RBC Urine WBC Ur Squamous Epith Cells Urine Bacteria Urine Mucus Hep Bs Antigen Hep Bs Antibody Hep B Core Total Ab MRSA (PCR) POC Glucose 92 86 07/16/19 07/16/19 04:10 06:09 WBC RBC Hgb Hct MCV MCH MCHC RDW Std Deviation RDW Coeff of Fabrice Plt Count MPV Immature Gran % (Auto) Neut % (Auto) Lymph % (Auto) [place] % (Auto) Eos % (Auto) Baso % (Auto) Absolute Neuts (auto) Absolute Lymphs (auto) Nucleated RBC % Differential Comment Reactive Lymphocytes Platelet Estimate RBC Morphology Polychromasia Anisocytosis Macrocytosis Ovalocytes Schistocytes PT INR APTT Specimen Type Sample Site pH Bicarbonate Actual POC Total CO2 Base Excess O2 Saturation O2 % ABG pCO2 ABG pO2 Jasper Test Respiration Rate O2 Delivery Device Vent Mode Tidal Volume POC PEEP Blood Gas Notified Whom Blood Gas Notified Time Sodium 135 L Potassium 5.0 Chloride 100 Carbon Dioxide 25.0 Anion Gap 10 BUN 35 H Creatinine 2.69 H Estim Creat Clear Calc 11.71 Est GFR (MDRD) Af Amer 24 L Est GFR (MDRD) Non-Af 20 L BUN/Creatinine Ratio 13.0 Glucose 86 Lactic Acid Calcium 7.4 L Total Bilirubin AST ALT Alkaline Phosphatase Troponin I Total Protein Albumin Globulin Albumin/Globulin Ratio Urine Color Urine Clarity Urine pH Ur Specific [place] Urine Protein Urine Glucose (UA) Urine Ketones Urine Occult Blood Urine Nitrite Urine Bilirubin Urine Urobilinogen Ur Leukocyte Esterase Urine RBC Urine WBC Ur Squamous Epith Cells Urine Bacteria Urine Mucus Hep Bs Antigen Hep Bs Antibody Hep B Core Total Ab MRSA (PCR) POC Glucose 103 Microbiology 07/14/19 13:51 Mucosa - Nasopharyngeal Respiratory Panel (PCR) - Preliminary Influenza A (Subtype H1) 07/14/19 11:35 Urine Catheter - [place] Streptococcus pneumoniae Antigen (M - Final 07/14/19 11:35 Urine Catheter - [place] Legionella Antigen - Final 07/14/19 09:13 Mucosa - Nose Influenza Types A,B Direct FA (SKY) - Final Influenzae A Clinical Impression(s) from Imaging Studies Chest X-Ray 07/14/19 09:09 IMPRESSION: 1. New development of a right upper lobe and right lung base pneumonic consolidations. 2. Bibasilar pleural effusions are identified which are unchanged. Electronically Signed: Vijay Shanks at 9:20 EST Tel , Service support , Chest X-Ray 07/14/19 11:55 IMPRESSION: 1. NG tube noted in place in good position. 2. Endotracheal tube is noted in place with its tip at the carinal bifurcation. This is a low position in the endotracheal tube should be withdrawn approximately 2 cm 3. Right lung pneumonic consolidations which are unchanged. 4. Moderate-sized bibasilar pleural effusions which are unchanged. Electronically Signed: Vijay Shanks at 12:42 EST Tel , Service support , ADDENDUM: 07/14/19 1302 IMPRESSION: 1. NG tube noted in place in good position. 2. Endotracheal tube is noted in place with its tip at the carinal bifurcation. This is a low position in the endotracheal tube should be withdrawn approximately 2 cm 3. Right lung pneumonic consolidations which are unchanged. 4. Moderate-sized bibasilar pleural effusions which are unchanged. N.B. : The above information has been verbally conveyed by Vijay Shanks to Humberto Ward MD, on 07/14/2019 12:55:55 (ET). Electronically Signed: Vijay Shanks at 12:42 EST Tel , Service support , Chest X-Ray 07/14/19 13:56 IMPRESSION: The endotracheal tube and NG tube noted in place in good position in this patient with right-sided pneumonic consolidations and bibasilar pleural effusions which are unchanged. Electronically Signed: Vijay Shanks, at 14:41 EST Tel , Service support , Chest X-Ray 07/15/19 08:22 IMPRESSION: Right upper lobe and right lung base pneumonic consolidations which are unchanged in this patient with moderate sized bibasilar pleural effusions which also are unchanged. Electronically Signed: Vijay Shanks, at 10:54 EST Tel , Service support , Medical Necessity - Tobacco Use Smoking Status: Former smoker Assessment/Plan All Active Problems (Last Reviewed 07/14/19 @ 12:[address] Jacob Boswell MD) Pneumonia (Acute) Influenza (Acute) Respiratory failure (Acute) Respiratory failure (Acute) Pneumonia (Acute) Healthcare-associated pneumonia (Acute) Problem with dialysis access (Resolved) History of cytomegalovirus infection (Resolved) Sepsis (Acute) Pneumonia, bacterial (Resolved) History of renal transplant (Resolved) RECOMMENDATIONS: 1. Continue to wean FiO2 to maintain oxygen saturations at or above 90%. 2. Discontinue propofol and initiate Precedex to help facilitate weaning from invasive mechanical ventilatory support. 3. Continue Tamiflu and empiric antimicrobials. 4. Continue hemodialysis support per nephrology recommendations. 5. Continue tube feeds. Monitor electrolytes closely over concerns for refeeding syndrome. 6. Continue appropriate ICU prophylaxis. IMPRESSIONS: 1. Acute combined on chronic hypoxemic respiratory failure Multifactorial in etiology and related to hypervolemia in the setting of end- stage renal disease with recent missed hemodialysis session, coupled with a history of recurrent pleural effusions, healthcare associated pneumonia and influenza. For now, the patient will be maintained on invasive mechanical ventilatory support. Agree with continuing broad-spectrum antimicrobials, with plans to complete a 7-day treatment course. Continue Tamiflu as well. Nephrology is following to assist with hemodialysis needs. Tube feeds will be continued today. Electrolytes will be monitored carefully over concerns for possible refeeding syndrome. Plan for daily paired spontaneous awakening and breathing trials. Propofol will be discontinued today and the patient will be transitioned to Precedex to help facilitate weaning from invasive mechanical ventilatory support. 2. Severe sepsis Secondary to influenza A with concern for superimposed bacterial pneumonia. Accordingly, the patient will be continued on broad-spectrum antimicrobials along with Tamiflu. 3. End-stage renal disease on hemodialysis Nephrology following to assist with hemodialysis needs. 4. History of gastric CA/history of renal transplant with subsequent rejection/severe protein calorie malnutrition Complicates care, management, recovery and prognosis. Nutrition consultation to be obtained. Tube feeds to be initiated. TIME: 37 minutes of critical care time, independent of procedures, was spent addressing the patient's acute on chronic respiratory failure, severe sepsis, influenza A infection, end-stage renal disease on hemodialysis, review of all data and collaboration with the care team. ([id number]) Code Visit [id number]: [id number] Critical care first hour
--- NOTE | 2019-07-16 07:19 | PN_ITS ---
Patient Problems: Active and Suspected Problems (Last Reviewed 07/14/19 @ 12:[address] Jacob Boswell MD) Pneumonia (Acute) Influenza (Acute) Respiratory failure (Acute) Respiratory failure (Acute) Pneumonia (Acute) Reason for Visit: Follow-up acute respiratory failure Subjective: Seen awake on the vent. She did fail her weaning trial this morning. Patient was reported to be tachypneic with significant anxiety. Subsequently started on Precedex. Her blood cultures have so far remain negative to date. Objective: GENERAL: Awake on the vent HEENT: ET tube in place EYES; Anicteric, NECK; supple, normal thyroid, RESPIRATORY: Diminished to auscultation CARDIOVASCULAR: Regular S1 S2, GI: soft, normoactive bowel sounds, : No Renal angle tenderness; EXTREMITIES: No edema, no clubbing, MUSCULOSKELETAL: muscle waisting NEURO: Remains on the vent unable to assess but does not appear to have any focal or lateralizing signs SKIN: Dry skin PSYCH; Unable to assess patient sedated on the vent Vitals/I&O's: Vital Signs Temp Pulse Resp BP Pulse Ox 98.3 F 99 16 135/82 H 91 07/16/19 00:00 07/16/19 07:00 07/16/19 07:00 07/16/19 07:00 07/16/19 07:00 Oxygen Flow Rate (L/min) 15 Oxygen Delivery Method Mechanical Ventilator Weight: 28.9 kg Body Mass Index (BMI) 12.7 Finger Stick Blood Glucose 104 Intake and Output for Last 24 Hours 07/14/19 07/15/19 07/16/19 23:59 23:59 23:59 Intake Total 1120.22 / 1122.02 758.49 / 976.29 433.90 / 433.90 Output Total 550 / 625 1085 / 1095 35 / 35 Balance 570.22 / 497.02 -326.51 / -118.71 398.90 / 398.90 Microbiology Past 72 Hours 07/14/19 13:51 Mucosa - Nasopharyngeal Respiratory Panel (PCR) - Final Influenza A (Subtype H1) 07/14/19 11:35 Urine Catheter - Bethea Streptococcus pneumoniae Antigen (M - Final 07/14/19 11:35 Urine Catheter - Bethea Legionella Antigen - Final 07/14/19 09:13 Mucosa - Nose Influenza Types A,B Direct FA (SKY) - Final Influenzae A Laboratory Results 07/14/19 17:10: Hep B Core Total Ab Negative 07/14/19 17:10: Hep Bs Antigen Non-Reactive, Hep Bs Antibody Non-Reactive 07/15/19 18:39: POC Glucose 92 07/16/19 00:31: POC Glucose 86 07/16/19 04:10: WBC 7.1, RBC 2.82 L, Hgb 9.6 L, Hct 30.3 L, MCV 107.4 H, MCH 34.0 H, MCHC 31.7 L, RDW Std Deviation 61.4 H, RDW Coeff of Fabrice 15.5 H, Plt Count 72 L, MPV 13.2 H, Immature Gran % (Auto) 0.700, Neut % (Auto) 90.2 H, Lymph % (Auto) 4.8 L, [place] % (Auto) 1.8, Eos % (Auto) 2.4, Baso % (Auto) 0.1, Absolute Neuts (auto) 6.4, Absolute Lymphs (auto) 0.34 L, Nucleated RBC % 0.3, Differential Comment SCANNED, Reactive Lymphocytes RARE, Platelet Estimate MOD DEC, RBC Morphology NORM C+C, Anisocytosis RARE 07/16/19 04:10: Sodium 135 L, Potassium 5.0, Chloride 100, Carbon Dioxide 25.0, Anion Gap 10, BUN 35 H, Creatinine 2.69 H, Estim Creat Clear Calc 11.71, Est GFR (MDRD) Af Amer 24 L, Est GFR (MDRD) Non-Af 20 L, BUN/Creatinine Ratio 13.0, Glucose 86, Calcium 7.4 L 07/16/19 04:10: Phosphorus Pending, Magnesium Pending 07/16/19 06:09: POC Glucose 103 Current Medications Chlorhexidine Gluconate () 15 ml PO BID [facility] Last Admin: 07/15/19 21:05 Dose: 15 ml Documented by: Famotidine (Pepcid) 20 mg GT DAILY [facility] Last Admin: 07/15/19 13:18 Dose: 20 mg Documented by: Glucagon () 1 mg IM .X1 PRN PRN Reason: Hypoglycemia Propofol (Diprivan) 1,000 mg in 100 mls @ 1.764 mls/hr CONT INF .Q12H [facility]; Protocol Last Titration: 07/16/19 07:00 Dose: 10 mcg/kg/min, 1.8 mls/hr Documented by: Sodium Chloride () 250 mls @ 15 mls/hr IV .[id number] PRN PRN Reason: Saline Flush Sodium Chloride () 250 mls @ 15 mls/hr IV .[id number] PRN PRN Reason: Additional IVPB Infusion Dextrose (Dextrose 10%-Water) 250 mls @ 999 mls/hr IV .Q16M PRN; Protocol PRN Reason: HYPOGLYCEMIA Last Infusion: 07/15/19 04:38 Dose: Infused Documented by: Cefepime HCl 0.5 gm/ Sodium (Chloride) 50 mls @ 100 mls/hr IV Q24H [facility] Last Infusion: 07/15/19 16:40 Dose: Infused Documented by: Fentanyl () 100 mls @ 2.5 mls/hr IV UD [facility]; Protocol Last Titration: 07/16/19 07:00 Dose: 50 mcg/hr, 5 mls/hr Documented by: Enteral Nutritional Formula (Vital Af 1.2 Patrice Liquid) 1,000 mls @ 30 mls/hr GT .[id number] [facility] Last Admin: 07/15/19 13:23 Dose: 30 mls/hr Documented by: Dexmedetomidine HCl 400 mcg/ (Sodium Chloride) 100 mls @ 3.588 mls/hr CONT INF .[id number] [facility]; Protocol Oseltamivir Phosphate (Tamiflu) 30 mg PO TuThSa@1700 [facility] Stop: 07/22/19 17:01 Last Admin: 07/15/19 18:22 Dose: 30 mg Documented by: Sodium Chloride () 10 - 40 ml IV UD PRN PRN Reason: SALINE FLUSH Last Admin: 07/14/19 15:05 Dose: 20 ml Documented by: STROKE Vital Signs/Narrative: Vital Signs Pulse Resp BP Pulse Ox 07/16/19 07:00 99 16 135/82 H 91 07/16/19 06:00 99 17 123/75 H 94 07/16/19 05:18 105 H 20 H 92 07/16/19 05:00 104 H 26 H 138/89 H 93 07/16/19 04:59 21 H 07/16/19 04:00 101 H 18 125/80 H 94 07/16/19 03:35 99 16 93 Medical Necessity - Tobacco Use Smoking Status: Former smoker Assessment/Plan All Active Problems (Last Reviewed 07/14/19 @ 12:[address] Jacob Boswell MD) Pneumonia (Acute) Influenza (Acute) Respiratory failure (Acute) Respiratory failure (Acute) Pneumonia (Acute) Healthcare-associated pneumonia (Acute) Problem with dialysis access (Resolved) History of cytomegalovirus infection (Resolved) Sepsis (Acute) Pneumonia, bacterial (Resolved) History of renal transplant (Resolved) Patient is a 48-year-old lady presented to the emergency department with progressive generalized weakness lethargy and shortness of breath 1. Severe sepsis ?Secondary to acute influenza A infection with superimposed bacterial pneumonia right upper lobe and lung base pneumonic consolidation. Cultures were obtained in the emergency department patient did receive IV fluids per protocol. Subsequently started on antiviral medication (Tamiflu) in addition to cefepime Levaquin and vancomycin?patient remains in ICU ?07/15/2019: Patient remains in ICU still on the vent and febrile. ?07/16/2019 cultures have remained negative to date. 2. Acute hypoxic respiratory failure secondary to influenza A with superimposed pneumonia ?Management as discussed above in addition patient was intubated in the ED admitted to the intensive care unit with consult placed to Dr. Vann with intensive care case discussed with him prior to patient being admitted will defer subsequent vent management ?07/15/2019 patient remains intubated in the ICU management of mechanical ventilation deferred to Dr. Vann with intensive care Case discussed with him. -07/16/2019 she did fail her weaning trial this morning. Patient was reported to be tachypneic with significant anxiety. Subsequently started on Precedex. Her blood cultures have so far remain negative to date. 3. End-stage renal disease Patient did miss dialysis on 07/13/2019. Consult placed to patient's paper colorer Dr. Marietta Mcdaniel. Did speak with her plan is for patient to undergo emergency dialysis -07/15/2019 patient underwent dialysis the day prior has been seen by Dr. Marietta Mcdaniel following. [id number]; patient did tolerate dialysis the day prior. 4. Hyperkalemia Secondary to end-stage renal disease patient undergo dialysis for treatment 5. History of renal transplant ?With subsequent rejection 6. History of gastric CA ?Patient in remission following gastrectomy 7. Severe protein calorie malnutrition ?Patient is cachectic, has low BMI of 13.1 in addition to muscle wasting consult placed to dietitian 8. Thrombocytopenia ?Suspected to be secondary to sepsis monitoring serial CBC 9. History of chronic bilateral pleural effusion ?Imaging studies obtained on admission demonstrated presence of patient bilateral pleural effusion 10. DVT prophylaxis ?Bilateral SCDs Chemoprophylaxis contraindicated in view of patient's low platelet count 11. Hypoglycemia ?Patient had hypoglycemia episode during the evening with glucose dropping to 25. Resuscitated with dextrose 12. Anemia ?Secondary to anemia of end-stage renal disease monitoring H&H with plans to transfuse if patient becomes symptomatic or hemoglobin falls below 7 13. 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
[2019-07-16 07:20] LABS: Magnesium 2.2 mg/dL (1.6-2.6); Phosphorus 4.8 mg/dL (2.5-4.9)
[2019-07-16] MEDS: fentaNYL drip 100 ML 5 MCG IV (09:41)
[2019-07-16] MEDS: Chlorhexidine 15 ML PO ×2 (10:43→21:20)
[2019-07-16] MEDS: Famotidine 20 MG Tablet GT (11:00)
--- NOTE | 2019-07-16 11:32 | CASEMGMT ---
RN DANIEL Note: participated in ICU interdisciplinary rounds. Continues on ventilator, failed weaning trial. Plan is to start Presedex, continue Cpap trial, continue TF-is @ goal rate. DC planning deferred today. Anticipate pt may need SNF on dc. CM will continue to follow. Khang WEIN RN ACM
--- NOTE | 2019-07-16 12:14 | PCM.PN.REN ---
Patient Problems: Active and Suspected Problems (Last Reviewed 07/14/19 @ 12:[address] Jacob Boswell MD) Pneumonia (Acute) Influenza (Acute) Respiratory failure (Acute) Respiratory failure (Acute) Pneumonia (Acute) Subjective: Remains on vent. Patient responding appropriately to questions, following commands. Patient home at bedside. Blood pressure stable. Dated 1 L fluid removal on dialysis yesterday. - Physical Exam Vitals/I&O's: Vital Signs Temp Pulse Resp BP Pulse Ox 97.9 F 98 14 115/77 92 07/16/19 08:00 07/16/19 10:00 07/16/19 10:00 07/16/19 10:00 07/16/19 10:00 Oxygen Flow Rate (L/min) 15 Oxygen Delivery Method Mechanical Ventilator Weight: 28.9 kg Body Mass Index (BMI) 12.7 Finger Stick Blood Glucose 104 Intake and Output for Last 24 Hours 07/14/19 07/15/19 07/16/19 23:59 23:59 23:59 Intake Total 1120.22 / 1122.02 758.49 / 976.29 453.23 / 453.23 Output Total 550 / 625 1085 / 1095 35 / 35 Balance 570.22 / 497.02 -326.51 / -118.71 418.23 / 418.23 General: Alert, Oriented x3, - Neck: Supple - On vent Lungs: Clear to auscultation, - - On vent Cardiovascular: Regular rate Abdomen: Bowel Sounds Present, Soft, Non Tender, Non-Distended Extremities: No edema Psych/Mental Status: Normal Affect, Appropriate, - - Awake on vent Microbiology Past 72 Hours 07/14/19 11:35 Urine, Clean Catch Urine Culture - Final Culture exhibits no growth. 07/14/19 10:45 Blood Culture (Wb) - Right Foot Blood Culture - Preliminary No growth in 48 hours. 07/14/19 09:57 Blood Culture (Wb) - Right Forearm Blood Culture - Preliminary No growth in 48 hours. 07/14/19 13:51 Mucosa - Nasopharyngeal Respiratory Panel (PCR) - Final Influenza A (Subtype H1) 07/14/19 11:35 Urine Catheter - Bethea Streptococcus pneumoniae Antigen (M - Final 07/14/19 11:35 Urine Catheter - Bethea Legionella Antigen - Final 07/14/19 09:13 Mucosa - Nose Influenza Types A,B Direct FA (SKY) - Final Influenzae A Laboratory Results 07/14/19 17:10: Hep B Core Total Ab Negative 07/15/19 18:39: POC Glucose 92 07/16/19 00:31: POC Glucose 86 07/16/19 04:10: WBC 7.1, RBC 2.82 L, Hgb 9.6 L, Hct 30.3 L, MCV 107.4 H, MCH 34.0 H, MCHC 31.7 L, RDW Std Deviation 61.4 H, RDW Coeff of Fabrice 15.5 H, Plt Count 72 L, MPV 13.2 H, Immature Gran % (Auto) 0.700, Neut % (Auto) 90.2 H, Lymph % (Auto) 4.8 L, [place] % (Auto) 1.8, Eos % (Auto) 2.4, Baso % (Auto) 0.1, Absolute Neuts (auto) 6.4, Absolute Lymphs (auto) 0.34 L, Nucleated RBC % 0.3, Differential Comment SCANNED, Reactive Lymphocytes RARE, Platelet Estimate MOD DEC, RBC Morphology NORM C+C, Anisocytosis RARE 07/16/19 04:10: Sodium 135 L, Potassium 5.0, Chloride 100, Carbon Dioxide 25.0, Anion Gap 10, BUN 35 H, Creatinine 2.69 H, Estim Creat Clear Calc 11.71, Est GFR (MDRD) Af Amer 24 L, Est GFR (MDRD) Non-Af 20 L, BUN/Creatinine Ratio 13.0, Glucose 86, Calcium 7.4 L 07/16/19 04:10: Phosphorus 4.8, Magnesium 2.2 07/16/19 06:09: POC Glucose 103 Current Medications Chlorhexidine Gluconate () 15 ml PO BID [facility] Last Admin: 07/16/19 10:43 Dose: 15 ml Documented by: Famotidine (Pepcid) 20 mg GT DAILY [facility] Last Admin: 07/16/19 11:00 Dose: 20 mg Documented by: Glucagon () 1 mg IM .X1 PRN PRN Reason: Hypoglycemia Propofol (Diprivan) 1,000 mg in 100 mls @ 1.764 mls/hr CONT INF .Q12H [facility]; Protocol Last Titration: 07/16/19 10:00 Dose: 0 mcg/kg/min, 0 mls/hr Documented by: Sodium Chloride () 250 mls @ 15 mls/hr IV .[id number] PRN PRN Reason: Saline Flush Sodium Chloride () 250 mls @ 15 mls/hr IV .[id number] PRN PRN Reason: Additional IVPB Infusion Dextrose (Dextrose 10%-Water) 250 mls @ 999 mls/hr IV .Q16M PRN; Protocol PRN Reason: HYPOGLYCEMIA Last Infusion: 07/15/19 04:38 Dose: Infused Documented by: Cefepime HCl 0.5 gm/ Sodium (Chloride) 50 mls @ 100 mls/hr IV Q24H [facility] Last Infusion: 07/15/19 16:40 Dose: Infused Documented by: Fentanyl () 100 mls @ 2.5 mls/hr IV UD [facility]; Protocol Last Titration: 07/16/19 10:00 Dose: 50 mcg/hr, 5 mls/hr Documented by: Enteral Nutritional Formula (Vital Af 1.2 Patrice Liquid) 1,000 mls @ 30 mls/hr GT .[id number] [facility] Last Admin: 07/15/19 13:23 Dose: 30 mls/hr Documented by: Dexmedetomidine HCl 400 mcg/ (Sodium Chloride) 100 mls @ 3.588 mls/hr CONT INF .[id number] [facility]; Protocol Last Admin: 07/16/19 09:19 Dose: 0.5 mcg/kg/hr, 3.6 mls/hr Documented by: Oseltamivir Phosphate (Tamiflu) 30 mg PO TuThSa@1700 [facility] Stop: 07/22/19 17:01 Last Admin: 07/15/19 18:22 Dose: 30 mg Documented by: Polyethylene Glycol (Miralax) 17 gm GT DAILY PRN PRN PRN Reason: Constipation Senna/Docusate Sodium (Senokot-S, [place]-Colace) 2 tablet GT BID PRN PRN PRN Reason: Constipation Sodium Chloride () 10 - 40 ml IV UD PRN PRN Reason: SALINE FLUSH Last Admin: 07/14/19 15:05 Dose: 20 ml Documented by: Medical Necessity - Tobacco Use Smoking Status: Former smoker Assessment/Plan All Active Problems (Last Reviewed 07/14/19 @ 12:[address] Jacob Boswell MD) Pneumonia (Acute) Influenza (Acute) Respiratory failure (Acute) Respiratory failure (Acute) Pneumonia (Acute) Healthcare-associated pneumonia (Acute) Problem with dialysis access (Resolved) History of cytomegalovirus infection (Resolved) Sepsis (Acute) Pneumonia, bacterial (Resolved) History of renal transplant (Resolved) 1. 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 Next hemodialysis on Friday 2. acute respiratory failure s/p intubation due to pneumonia, influenza. 3. Acute pneumonia with consolidation in compromised host. Check vanco levels prior to redosing 4. FTT s/p peg for feedings 5. chronic pleural effusion 6. Influenza A positive 7. Anemia RICKY therapy with dialysis
[2019-07-16 12:30] LABS: Bedside Glucose 97 mg/dL (70-110)
[2019-07-16 18:50] LABS: Bedside Glucose 85 mg/dL (70-110)
[2019-07-16] MEDS: Vital AF 1.2 Cal Liquid 1,000 ML 30 ML GT (19:59)
[2019-07-16] MEDS: 0.9% Saline Lock 10 ML Syringe IV (19:59)
[2019-07-17] VITALS (38 sets, daily range): BP systolic 95–170; BP diastolic 66–102; PULSE 73–115; RESP 16–26; TEMP 36.1–36.8; O2SAT 90–97
[2019-07-17 00:05] LABS: Bedside Glucose 73 mg/dL (70-110)
[2019-07-17 04:20] LABS: Absolute Lymphocyte Count 0.36 X10^3/uL (0.83-4.51); Absolute Neutrophil Count 7.9 X10^3/uL (2.0-7.7); Basophil# 0.03 X10^3/uL; Basophil% 0.3 % (0-1); Eosinophil# 0.01 X10^3/uL; Eosinophils% 0.1 % (0-5); Hematocrit 28.4 % (37-47); Hemoglobin 9.1 g/dL (12.0-15.0); Lymphocyte # 0.36 X10^3/ul (4.0); Lymphocyte % 4.2 % (19-41); Mean Corpuscular Hgb 34.3 pg (27.0-32.0); Mean Corpuscular Volume 107.2 fL (81-99); Mean Platelet Vol. 12.7 fl (6.2-12.0); Monocyte# 0.29 X10^3/uL; Monocyte% 3.4 % (0-10); NRBC Flagged by Analyzer 0.2 % (0-5); Neutrophil # 7.86 X10^3/uL (2.7-7.7); Neutrophil % 91.3 % (47-70); POSITIVE COUNT YES; POSITIVE DIFFERENTIAL YES; Platelet Count 63 K/mm3 (150-450); RBC Distribution Width CV 15.6 % (11.6-14.6); RBC Distribution Width SD 61.2 fl (35.1-43.9); Red Blood Count 2.65 M/mm3 (4.2-5.4); White Blood Count 8.6 K/mm3 (4.4-11.0)
[2019-07-17 04:30] LABS: Differential Indicated SCAN CRITERIA MET
[2019-07-17 04:33] LABS: Anion Gap 12 (5-15); BUN 65 mg/dL (7-18); BUN/Creat Ratio 17.2 RATIO (10-20); Calcium,Total 7.3 mg/dL (8.5-10.1); Chloride 101 mmol/L (98-107); Creatinine, Serum 3.78 mg/dL (0.55-1.02); EST Glomerular Filtration Rate 14 mL/min (>60); Est Glom Filt Rate - Afr Amer 16 mL/min (>60); Estimated Creatinine Clearance 8.39 ml/min; Glucose 97 mg/dL (74-106); Potassium 4.2 mmol/L (3.5-5.1); Sodium Level 138 mmol/L (136-145)
[2019-07-17 04:51] LABS: Anisocytosis 2+; Differential Comment SCANNED; Hypochromasia 1+; Platelet Estimate MOD DEC (ADEQ)
[2019-07-17 04:52] LABS: Stomatocyte RARE; Target Cells RARE
[2019-07-17 05:21] LABS: Bedside Glucose 85 mg/dL (70-110)
--- NOTE | 2019-07-17 06:19 | PN_ITS ---
Subjective: The patient was seen and examined at the bedside this morning. Events from the last 24 hours have been reviewed. The patient is currently afebrile, hemodynamically stable and maintaining appropriate oxygen saturations on spontaneous mode of mechanical ventilation. The patient is currently alert and appropriately interactive. Objective: The patient's most recent lab work, culture data and imaging studies have all been personally reviewed. Rapid influenza screen was positive for influenza A. Strep and urine Legionella antigens were negative. Blood, urine and sputum cultures have been unrevealing to date. General: - - Remains intubated, sedated and mechanically ventilated. Doing well on her spontaneous breathing trial. HEENT: Atraumatic, PERRLA, Normocephalic Oral: Moist Mucosa, - - Endotracheal and OG tubes remain in place Neck: Supple, No Nodes, Trachea Midline Lungs: No rhonchi, No wheeze, Diminished Cardiovascular: Regular rate, Regular Rhythm, Normal S1, Normal S2 Abdomen: Bowel Sounds Present, Soft, Non Tender Extremities: No clubbing, No cyanosis, No edema Skin: No breakdown Musculoskeletal: Cachexia, Muscle Wasting Lymphatic: No Cervical, Supraclavicular, or Inguinal Adenopathy Neurological: Neuro grossly intact, - - Alert and following commands appropriately. Psych/Mental Status: Flat Affect Vital Signs Temp Pulse Resp BP Pulse Ox 98.2 F 84 24 H 101/69 95 07/17/19 04:00 07/17/19 05:08 07/17/19 05:08 07/17/19 05:00 07/17/19 05:08 Oxygen Flow Rate (L/min) 15 Oxygen Delivery Method Mechanical Ventilator Weight: 61 lb 15.198 oz Body Mass Index (BMI) 12.7 Finger Stick Blood Glucose 104 Intake and Output for Last 24 Hours 07/15/19 07/16/19 07/17/19 23:59 23:59 23:59 Intake Total 758.49 / 976.29 1138.59 / 1145.39 238.25 / 238.25 Output Total 1085 / 1095 65 / 65 10 Balance -326.51 / -118.71 1073.59 / 1080.39 228.25 / 228.25 Labs (Last 48 Hours) 07/14/19 07/14/19 07/15/19 17:10 17:10 18:39 WBC RBC Hgb Hct MCV MCH MCHC RDW Std Deviation RDW Coeff of Fabrice Plt Count MPV Immature Gran % (Auto) Neut % (Auto) Lymph % (Auto) Charles % (Auto) Eos % (Auto) Baso % (Auto) Absolute Neuts (auto) Absolute Lymphs (auto) Nucleated RBC % Differential Comment Reactive Lymphocytes Platelet Estimate RBC Morphology Hypochromasia Anisocytosis Target Cells Stomatocytes Sodium Potassium Chloride Carbon Dioxide Anion Gap BUN Creatinine Estim Creat Clear Calc Est GFR (MDRD) Af Amer Est GFR (MDRD) Non-Af BUN/Creatinine Ratio Glucose Calcium Phosphorus Magnesium Hep Bs Antigen Non-Reactive Hep Bs Antibody Non-Reactive Hep B Core Total Ab Negative POC Glucose 92 07/16/19 07/16/19 07/16/19 00:31 04:10 04:10 WBC 7.1 RBC 2.82 L Hgb 9.6 L Hct 30.3 L MCV 107.4 H MCH 34.0 H MCHC 31.7 L RDW Std Deviation 61.4 H RDW Coeff of Fabrice 15.5 H Plt Count 72 L MPV 13.2 H Immature Gran % (Auto) 0.700 Neut % (Auto) 90.2 H Lymph % (Auto) 4.8 L Charles % (Auto) 1.8 Eos % (Auto) 2.4 Baso % (Auto) 0.1 Absolute Neuts (auto) 6.4 Absolute Lymphs (auto) 0.34 L Nucleated RBC % 0.3 Differential Comment SCANNED Reactive Lymphocytes RARE Platelet Estimate MOD DEC RBC Morphology NORM C+C Hypochromasia Anisocytosis RARE Target Cells Stomatocytes Sodium 135 L Potassium 5.0 Chloride 100 Carbon Dioxide 25.0 Anion Gap 10 BUN 35 H Creatinine 2.69 H Estim Creat Clear Calc 11.71 Est GFR (MDRD) Af Amer 24 L Est GFR (MDRD) Non-Af 20 L BUN/Creatinine Ratio 13.0 Glucose 86 Calcium 7.4 L Phosphorus Magnesium Hep Bs Antigen Hep Bs Antibody Hep B Core Total Ab POC Glucose 86 07/16/19 07/16/19 07/16/19 04:10 06:09 12:10 WBC RBC Hgb Hct MCV MCH MCHC RDW Std Deviation RDW Coeff of Fabrice Plt Count MPV Immature Gran % (Auto) Neut % (Auto) Lymph % (Auto) Charles % (Auto) Eos % (Auto) Baso % (Auto) Absolute Neuts (auto) Absolute Lymphs (auto) Nucleated RBC % Differential Comment Reactive Lymphocytes Platelet Estimate RBC Morphology Hypochromasia Anisocytosis Target Cells Stomatocytes Sodium Potassium Chloride Carbon Dioxide Anion Gap BUN Creatinine Estim Creat Clear Calc Est GFR (MDRD) Af Amer Est GFR (MDRD) Non-Af BUN/Creatinine Ratio Glucose Calcium Phosphorus 4.8 Magnesium 2.2 Hep Bs Antigen Hep Bs Antibody Hep B Core Total Ab POC Glucose 103 97 07/16/19 07/17/19 07/17/19 18:43 00:02 04:10 WBC 8.6 RBC 2.65 L Hgb 9.1 L Hct 28.4 L MCV 107.2 H MCH 34.3 H MCHC 32.0 RDW Std Deviation 61.2 H RDW Coeff of Fabrice 15.6 H Plt Count 63 L MPV 12.7 H Immature Gran % (Auto) 0.700 Neut % (Auto) 91.3 H Lymph % (Auto) 4.2 L Charles % (Auto) 3.4 Eos % (Auto) 0.1 Baso % (Auto) 0.3 Absolute Neuts (auto) 7.9 H Absolute Lymphs (auto) 0.36 L Nucleated RBC % 0.2 Differential Comment SCANNED Reactive Lymphocytes Platelet Estimate MOD DEC RBC Morphology Hypochromasia 1+ Anisocytosis 2+ Target Cells RARE Stomatocytes RARE Sodium Potassium Chloride Carbon Dioxide Anion Gap BUN Creatinine Estim Creat Clear Calc Est GFR (MDRD) Af Amer Est GFR (MDRD) Non-Af BUN/Creatinine Ratio Glucose Calcium Phosphorus Magnesium Hep Bs Antigen Hep Bs Antibody Hep B Core Total Ab POC Glucose 85 73 07/17/19 07/17/19 04:10 05:17 WBC RBC Hgb Hct MCV MCH MCHC RDW Std Deviation RDW Coeff of Fabrice Plt Count MPV Immature Gran % (Auto) Neut % (Auto) Lymph % (Auto) Charles % (Auto) Eos % (Auto) Baso % (Auto) Absolute Neuts (auto) Absolute Lymphs (auto) Nucleated RBC % Differential Comment Reactive Lymphocytes Platelet Estimate RBC Morphology Hypochromasia Anisocytosis Target Cells Stomatocytes Sodium 138 Potassium 4.2 Chloride 101 Carbon Dioxide 25.0 Anion Gap 12 BUN 65 H Creatinine 3.78 H Estim Creat Clear Calc 8.39 Est GFR (MDRD) Af Amer 16 L Est GFR (MDRD) Non-Af 14 L BUN/Creatinine Ratio 17.2 Glucose 97 Calcium 7.3 L Phosphorus Magnesium Hep Bs Antigen Hep Bs Antibody Hep B Core Total Ab POC Glucose 85 Microbiology 07/14/19 11:35 Urine, Clean Catch Urine Culture - Final Culture exhibits no growth. 07/14/19 10:45 Blood Culture (Wb) - Right Foot Blood Culture - Preliminary No growth in 48 hours. 07/14/19 09:57 Blood Culture (Wb) - Right Forearm Blood Culture - Preliminary No growth in 48 hours. 07/14/19 13:51 Mucosa - Nasopharyngeal Respiratory Panel (PCR) - Final Influenza A (Subtype H1) Clinical Impression(s) from Imaging Studies Chest X-Ray 07/14/19 09:09 IMPRESSION: 1. New development of a right upper lobe and right lung base pneumonic consolidations. 2. Bibasilar pleural effusions are identified which are unchanged. Electronically Signed: Vijay Shanks at 9:20 EST Tel , Service support , Chest X-Ray 07/14/19 11:55 IMPRESSION: 1. NG tube noted in place in good position. 2. Endotracheal tube is noted in place with its tip at the carinal bifurcation. This is a low position in the endotracheal tube should be withdrawn approximately 2 cm 3. Right lung pneumonic consolidations which are unchanged. 4. Moderate-sized bibasilar pleural effusions which are unchanged. Electronically Signed: Vijay Shanks at 12:42 EST Tel , Service support , ADDENDUM: 07/14/19 1302 IMPRESSION: 1. NG tube noted in place in good position. 2. Endotracheal tube is noted in place with its tip at the carinal bifurcation. This is a low position in the endotracheal tube should be withdrawn approximately 2 cm 3. Right lung pneumonic consolidations which are unchanged. 4. Moderate-sized bibasilar pleural effusions which are unchanged. N.B. : The above information has been verbally conveyed by Vijay Shanks to Humberto Ward MD, on 07/14/2019 12:55:55 (ET). Electronically Signed: Vijay Shanks at 12:42 EST Tel , Service support , Chest X-Ray 07/14/19 13:56 IMPRESSION: The endotracheal tube and NG tube noted in place in good position in this patient with right-sided pneumonic consolidations and bibasilar pleural effusions which are unchanged. Electronically Signed: Vijay Shanks, at 14:41 EST Tel , Service support , Chest X-Ray 07/15/19 08:22 IMPRESSION: Right upper lobe and right lung base pneumonic consolidations which are unchanged in this patient with moderate sized bibasilar pleural effusions which also are unchanged. Electronically Signed: Vijay Shanks, at 10:54 EST Tel , Service support , Medical Necessity - Tobacco Use Smoking Status: Former smoker Assessment/Plan All Active Problems (Last Reviewed 07/14/19 @ 12:[address] Jacob Boswell MD) Pneumonia (Acute) Influenza (Acute) Respiratory failure (Acute) Respiratory failure (Acute) Pneumonia (Acute) Healthcare-associated pneumonia (Acute) Problem with dialysis access (Resolved) History of cytomegalovirus infection (Resolved) Sepsis (Acute) Pneumonia, bacterial (Resolved) History of renal transplant (Resolved) RECOMMENDATIONS: 1. Proceed with a trial of extubation this morning. 2. Once extubated, wean supplemental oxygen to maintain saturations at or above 90%. 3. Encourage incentive spirometer use and mobilize patient as tolerated. 4. Bedside swallow evaluation prior to advancing diet. 5. Continue Tamiflu and empiric antimicrobials. 6. Continue hemodialysis support per nephrology recommendations. 7. Continue appropriate prophylaxis. IMPRESSIONS: 1. Acute combined on chronic hypoxemic respiratory failure Multifactorial in etiology and related to hypervolemia in the setting of end- stage renal disease with recent missed hemodialysis session, coupled with a history of recurrent pleural effusions, healthcare associated pneumonia and influenza. The patient has done well this morning on her spontaneous breathing trial and will be extubated accordingly. Once extubated, supplemental oxygen will be weaned to maintain saturations at or above 90%. Bedside swallow evaluation will be completed, prior to advancing diet. Encourage incentive spirometer use and mobilize patient as tolerated. We will plan to continue Tamiflu along with empiric antimicrobials. 2. Severe sepsis Secondary to influenza A with concern for superimposed bacterial pneumonia. Accordingly, the patient will be continued on broad-spectrum antimicrobials along with Tamiflu. I would recommend that antibiotics be continued to complete a 7-day treatment course. 3. End-stage renal disease on hemodialysis Nephrology following to assist with hemodialysis needs. 4. History of gastric CA/history of renal transplant with subsequent rejection/severe protein calorie malnutrition Complicates care, management, recovery and prognosis. Nutrition is currently following to assist with dietary needs. TIME: 38 minutes of critical care time, independent of procedures, was spent addressing the patient's acute on chronic respiratory failure, severe sepsis, influenza A infection, end-stage renal disease on hemodialysis, review of all data and collaboration with the care team. ([id number]) Code Visit 9xxxx: [id number] Critical care first hour
--- NOTE | 2019-07-17 07:00 | NURSING ---
Patient was extubated to 4L NC and tolerating well.
--- NOTE | 2019-07-17 07:55 | PCM.PN.HOSP ---
Patient Problems: Active and Suspected Problems (Last Reviewed 07/14/19 @ 12:[address] Jacob Boswell MD) Pneumonia (Acute) Influenza (Acute) Respiratory failure (Acute) Respiratory failure (Acute) Pneumonia (Acute) Reason for Visit: Follow-up acute respiratory failure Subjective: Patient successfully weaned off the vent this a.m. Objective: GENERAL: Awake; cooperative HEENT: ET tube in place EYES; Anicteric, NECK; supple, normal thyroid, RESPIRATORY: Diminished to auscultation CARDIOVASCULAR: Regular S1 S2, GI: soft, normoactive bowel sounds, : No Renal angle tenderness; EXTREMITIES: No edema, no clubbing, MUSCULOSKELETAL: muscle waisting NEURO: No lateralizing signs SKIN: Dry skin PSYCH; flat affect Vitals/I&O's: Vital Signs Temp Pulse Resp BP Pulse Ox 98.2 F 79 19 H 128/85 H 94 07/17/19 04:00 07/17/19 07:29 07/17/19 07:00 07/17/19 07:00 07/17/19 07:00 Oxygen Flow Rate (L/min) 4 Oxygen Delivery Method Nasal Cannula Weight: 28.1 kg Body Mass Index (BMI) 12.7 Finger Stick Blood Glucose 104 Intake and Output for Last 24 Hours 07/15/19 07/16/19 07/17/19 23:59 23:59 23:59 Intake Total 758.49 / 976.29 1138.59 / 1145.39 241.91 / 241.91 Output Total 1085 / 1095 65 / 65 10 / 10 Balance -326.51 / -118.71 1073.59 / 1080.39 231.91 / 231.91 Microbiology Past 72 Hours 07/14/19 11:35 Urine, Clean Catch Urine Culture - Final Culture exhibits no growth. 07/14/19 10:45 Blood Culture (Wb) - Right Foot Blood Culture - Preliminary No growth in 48 hours. 07/14/19 09:57 Blood Culture (Wb) - Right Forearm Blood Culture - Preliminary No growth in 48 hours. 07/14/19 13:51 Mucosa - Nasopharyngeal Respiratory Panel (PCR) - Final Influenza A (Subtype H1) 07/14/19 11:35 Urine Catheter - Bethea Streptococcus pneumoniae Antigen (M - Final 07/14/19 11:35 Urine Catheter - [place]hea Legionella Antigen - Final 07/14/19 09:13 Mucosa - Nose Influenza Types A,B Direct FA (SKY) - Final Influenzae A Laboratory Results 07/16/19 12:10: POC Glucose 97 07/16/19 18:43: POC Glucose 85 07/17/19 00:02: POC Glucose 73 07/17/19 04:10: WBC 8.6, RBC 2.65 L, Hgb 9.1 L, Hct 28.4 L, MCV 107.2 H, MCH 34.3 H, MCHC 32.0, RDW Std Deviation 61.2 H, RDW Coeff of Fabrice 15.6 H, Plt Count 63 L, MPV 12.7 H, Immature Gran % (Auto) 0.700, Neut % (Auto) 91.3 H, Lymph % (Auto) 4.2 L, Eaton % (Auto) 3.4, Eos % (Auto) 0.1, Baso % (Auto) 0.3, Absolute Neuts (auto) 7.9 H, Absolute Lymphs (auto) 0.36 L, Nucleated RBC % 0.2, Differential Comment SCANNED, Platelet Estimate MOD DEC, Hypochromasia 1+, Anisocytosis 2+, Target Cells RARE, Stomatocytes RARE 07/17/19 04:10: Sodium 138, Potassium 4.2, Chloride 101, Carbon Dioxide 25.0, Anion Gap 12, BUN 65 H, Creatinine 3.78 H, Estim Creat Clear Calc 8.39, Est GFR (MDRD) Af Amer 16 L, Est GFR (MDRD) Non-Af 14 L, BUN/Creatinine Ratio 17.2, Glucose 97, Calcium 7.3 L 07/17/19 05:17: POC Glucose 85 Current Medications Famotidine (Pepcid) 20 mg GT DAILY SULEIMAN Last Admin: 07/16/19 11:00 Dose: 20 mg Documented by: Glucagon () 1 mg IM .X1 PRN PRN Reason: Hypoglycemia Sodium Chloride () 250 mls @ 15 mls/hr IV .[id number] PRN PRN Reason: Saline Flush Sodium Chloride () 250 mls @ 15 mls/hr IV .[id number] PRN PRN Reason: Additional IVPB Infusion Dextrose (Dextrose 10%-Water) 250 mls @ 999 mls/hr IV .Q16M PRN; Protocol PRN Reason: HYPOGLYCEMIA Last Infusion: 07/15/19 04:38 Dose: Infused Documented by: Cefepime HCl 0.5 gm/ Sodium (Chloride) 50 mls @ 100 mls/hr IV Q24H [facility] Last Infusion: 07/16/19 18:18 Dose: Infused Documented by: Enteral Nutritional Formula (Vital Af 1.2 Patrice Liquid) 1,000 mls @ 30 mls/hr GT .[id number] [facility] Last Admin: 07/16/19 19:59 Dose: 30 mls/hr Documented by: Dexmedetomidine HCl 400 mcg/ (Sodium Chloride) 100 mls @ 3.588 mls/hr CONT INF .[id number] [facility]; Protocol Last Titration: 07/17/19 07:00 Dose: 0.6 mcg/kg/hr, 4.3 mls/hr Documented by: Oseltamivir Phosphate (Tamiflu) 30 mg PO TuThSa@1700 [facility] Stop: 07/22/19 17:01 Last Admin: 07/15/19 18:22 Dose: 30 mg Documented by: Polyethylene Glycol (Miralax) 17 gm GT DAILY PRN PRN PRN Reason: Constipation Senna/Docusate Sodium (Senokot-S, Maria Guadalupe-Colace) 2 tablet GT BID PRN PRN PRN Reason: Constipation Sodium Chloride () 10 - 40 ml IV UD PRN PRN Reason: SALINE FLUSH Last Admin: 07/16/19 19:59 Dose: 20 ml Documented by: STROKE Vital Signs/Narrative: Vital Signs Temp Pulse Resp BP Pulse Ox 07/17/19 07:29 79 07/17/19 07:00 81 19 H 128/85 H 94 07/17/19 06:00 81 18 122/82 H 93 07/17/19 05:08 84 24 H 95 07/17/19 05:00 73 17 101/69 96 07/17/19 04:59 21 H 07/17/19 04:00 98.2 F 77 19 H 106/74 95 Medical Necessity - Tobacco Use Smoking Status: Former smoker Assessment/Plan All Active Problems (Last Reviewed 07/14/19 @ 12:[address] Jacob Boswell MD) Pneumonia (Acute) Influenza (Acute) Respiratory failure (Acute) Respiratory failure (Acute) Pneumonia (Acute) Healthcare-associated pneumonia (Acute) Problem with dialysis access (Resolved) History of cytomegalovirus infection (Resolved) Sepsis (Acute) Pneumonia, bacterial (Resolved) History of renal transplant (Resolved) Patient is a 48-year-old lady presented to the emergency department with progressive generalized weakness lethargy and shortness of breath 1. Severe sepsis ?Secondary to acute influenza A infection with superimposed bacterial pneumonia right upper lobe and lung base pneumonic consolidation. Cultures were obtained in the emergency department patient did receive IV fluids per protocol. Subsequently started on antiviral medication (Tamiflu) in addition to cefepime Levaquin and vancomycin?patient remains in ICU ?07/15/2019: Patient remains in ICU still on the vent and febrile. ?07/16/2019 cultures have remained negative to date. -07/17/2019: Patient weaned off the vent this a.m. Blood and sputum cultures so far negative to date. 2. Acute hypoxic respiratory failure secondary to influenza A with superimposed pneumonia ?Management as discussed above in addition patient was intubated in the ED admitted to the intensive care unit with consult placed to Dr. Vann with intensive care case discussed with him prior to patient being admitted will defer subsequent vent management ?07/15/2019 patient remains intubated in the ICU management of mechanical ventilation deferred to Dr. Vann with intensive care Case discussed with him. -07/16/2019 she did fail her weaning trial this morning. Patient was reported to be tachypneic with significant anxiety. Subsequently started on Precedex. Her blood cultures have so far remain negative to date. -07/17/2019: Patient weaned off the vent this a.m. 3. End-stage renal disease Patient did miss dialysis on 07/13/2019. Consult placed to patient's main entree cook and cashier Dr. Marietta Mcdaniel. Did speak with her plan is for patient to undergo emergency dialysis -07/15/2019 patient underwent dialysis the day prior has been seen by Dr. Marietta Mcdaniel following. 07/16/2019; patient did tolerate dialysis the day prior. 4. Hyperkalemia Secondary to end-stage renal disease patient undergo dialysis for treatment 5. History of renal transplant ?With subsequent rejection 6. History of gastric CA ?Patient in remission following gastrectomy 7. Severe protein calorie malnutrition ?Patient is cachectic, has low BMI of 13.1 in addition to muscle wasting consult placed to dietitian 8. Thrombocytopenia ?Suspected to be secondary to sepsis monitoring serial CBC 9. History of chronic bilateral pleural effusion ?Imaging studies obtained on admission demonstrated presence of patient bilateral pleural effusion 10. DVT prophylaxis ?Bilateral SCDs Chemoprophylaxis contraindicated in view of patient's low platelet count 11. Hypoglycemia ?Patient had hypoglycemia episode during the evening with glucose dropping to 25. Resuscitated with dextrose 12. Anemia ?Secondary to anemia of end-stage renal disease monitoring H&H with plans to transfuse if patient becomes symptomatic or hemoglobin falls below 7 13. 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
[2019-07-17 08:32] LABS: AST(SGOT) 109 U/L (15-37); Alanine Aminotransfer ALT/SGPT 66 U/L (13-56); Albumin, Serum 1.6 g/dL (3.2-5.0); Alkaline Phosphatase 417 U/L (45-117); Bilirubin, Direct 0.32 mg/dL (0.00-0.30); Globulin 3.7 g/dL (2.2-4.2); Protein, Total 5.3 g/dL (6.4-8.2)
--- NOTE | 2019-07-17 09:16 | CM.UR ---
Participated in interdisciplinary rounds. Patient was weaned from vent this am and was successfully extubated. She is currently alert and on 6 liters of o2 per nc. Patient is at goal for tube feedings. does own tube feedings at home. had been doing 2 cans of tube feeding over night and eating during the day. wasn't eating much and she expresses needing advice in this area. States she didn't know who to talk to prior to coming into hospital. Loni, superintendent maintenance [employer] states she will talk to her about recommendations after her swallow test is performed. Dr. Vann gave order to remove maloney and for patient to have more therapy. Larry Ascencio, RN, CCM.
[2019-07-17] MEDS: LORazepam 0.5 MG Tablet PO ×2 (10:16→21:48)
--- NOTE | 2019-07-17 11:27 | CM.UR ---
RN Note: Met face to face with patient. No family present at this time. She is agreeable to SNF placement IF her respiratory status improves. States she still feels like she can't breathe at times and that scares her. Explained we would not discharge her to SNF until she was medically stable. Explained that I just wanted to talk to her about discharge planning so we can plan ahead. Explained that she would have to stay til Friday even if she felt better due to needing precert for SNF and having to find one that does dialysis. Larry Ascencio RN, [facility].
[2019-07-17 12:26] LABS: Bedside Glucose 112 mg/dL (70-110)
--- NOTE | 2019-07-17 14:05 | DIALYSIS ---
Pt tolerated 3hr HD tx w/ some anxiety regarding UFR. Net UF-400ml. See flow record for tx data.
[2019-07-17] MEDS: Famotidine 20 MG Tablet PO (14:22)
[2019-07-17] MEDS: Escitalopram Oxalate 10 MG Tablet PO (14:22)
[2019-07-17] MEDS: Epoetin Alfa epbx 10,000 UNITS/ML 6000 UNIT IV (14:22)
[2019-07-17] MEDS: Dronabinol 2.5 MG Capsule PO ×3 (14:24→21:53)
[2019-07-17] MEDS: Metoprolol Tartrate 25 MG Tablet PO (17:31)
[2019-07-17] MEDS: Oseltamivir Phosphate 30 MG Capsule PO (17:32)
[2019-07-17 17:55] LABS: Bedside Glucose 98 mg/dL (70-110)
[2019-07-18] VITALS (40 sets, daily range): BP systolic 134–180; BP diastolic 83–108; PULSE 81–127; RESP 17–28; TEMP 36.4–36.9; O2SAT 90–99; BMI 12.8
[2019-07-18 00:41] LABS: Bedside Glucose 82 mg/dL (70-110)
[2019-07-18 05:11] LABS: Absolute Lymphocyte Count 0.39 X10^3/uL (0.83-4.51); Absolute Neutrophil Count 9.6 X10^3/uL (2.0-7.7); Basophil# 0.02 X10^3/uL; Basophil% 0.2 % (0-1); Eosinophil# 0.01 X10^3/uL; Eosinophils% 0.1 % (0-5); Hematocrit 31.7 % (37-47); Hemoglobin 9.9 g/dL (12.0-15.0); Lymphocyte # 0.39 X10^3/ul (4.0); Lymphocyte % 3.7 % (19-41); Mean Corp Hgb Conc 31.2 g/dL (32-36); Mean Corpuscular Hgb 33.1 pg (27.0-32.0); Mean Platelet Vol. 13.4 fl (6.2-12.0); Monocyte# 0.52 X10^3/uL; Monocyte% 4.9 % (0-10); NRBC Flagged by Analyzer 0.4 % (0-5); Neutrophil # 9.59 X10^3/uL (2.7-7.7); Neutrophil % 90.4 % (47-70); POSITIVE COUNT YES; POSITIVE DIFFERENTIAL YES; Platelet Count 59 K/mm3 (150-450); RBC Distribution Width CV 15.4 % (11.6-14.6); RBC Distribution Width SD 60.2 fl (35.1-43.9); Red Blood Count 2.99 M/mm3 (4.2-5.4); White Blood Count 10.6 K/mm3 (4.4-11.0)
[2019-07-18 05:12] LABS: Differential Indicated SCAN CRITERIA MET
[2019-07-18 05:27] LABS: Anion Gap 9 (5-15); BUN 40 mg/dL (7-18); BUN/Creat Ratio 15.3 RATIO (10-20); Calcium,Total 7.3 mg/dL (8.5-10.1); Chloride 97 mmol/L (98-107); Creatinine, Serum 2.62 mg/dL (0.55-1.02); EST Glomerular Filtration Rate 21 mL/min (>60); Est Glom Filt Rate - Afr Amer 25 mL/min (>60); Estimated Creatinine Clearance 11.78 ml/min; Glucose 102 mg/dL (74-106); Potassium 3.6 mmol/L (3.5-5.1); Sodium Level 135 mmol/L (136-145)
[2019-07-18] MEDS: Vital AF 1.2 Cal Liquid 1,000 ML 30 ML GT (05:55)
--- NOTE | 2019-07-18 06:21 | PCM.PN.INT ---
Subjective: The patient was seen and examined at the bedside this morning. Events from the last 24 hours have been reviewed. The patient is currently afebrile, hemodynamically stable and maintaining appropriate oxygen saturations on Airvo with an FiO2 requirement of 44%. The patient does have an extremely weak cough. She has a great deal of baseline anxiety and does not seem overtly interested in engaging in any form of physical activity that would help her recover quicker from her current illness. Objective: The patient's most recent lab work, culture data and imaging studies have all been personally reviewed. Rapid influenza screen was positive for influenza A. Strep and urine Legionella antigens were negative. Blood, urine and sputum cultures have been unrevealing to date. General: - - The patient is alert and interactive. She is quite frail, cachectic and profoundly malnourished in appearance. HEENT: Atraumatic, PERRLA, Normocephalic Oral: No Gingival or Mucosal Lesions/ Ulcerations Neck: Supple, No Nodes, Trachea Midline Lungs: Diminished, Tachypneic, - - Exceedingly poor inspiratory effort Cardiovascular: Regular rate, Regular Rhythm, Normal S1, Normal S2 Abdomen: Bowel Sounds Present, Soft, Non Tender Extremities: No clubbing, No cyanosis, No edema Skin: No breakdown Musculoskeletal: Cachexia, Muscle Wasting Lymphatic: No Cervical, Supraclavicular, or Inguinal Adenopathy Neurological: - - No focal neurological deficits. Psych/Mental Status: Anxious, Flat Affect, Depressed, Restless Vital Signs Temp Pulse Resp BP Pulse Ox 97.8 F 93 19 H 152/90 H 96 07/18/19 01:00 07/18/19 05:18 07/18/19 05:18 07/18/19 05:00 07/18/19 05:18 Oxygen Flow Rate (L/min) 6 Oxygen Delivery Method Nasal Cannula Weight: 61 lb 15.198 oz Body Mass Index (BMI) 12.7 Finger Stick Blood Glucose 104 Intake and Output for Last 24 Hours 07/16/19 07/17/19 07/18/19 23:59 23:59 23:59 Intake Total 1138.59 / 1145.39 710.54 / 710.54 Output Total 65 / 65 420 / 420 Balance 1073.59 / 1080.39 290.54 / 290.54 Labs (Last 48 Hours) 07/16/19 07/16/19 07/16/19 04:10 12:10 18:43 WBC RBC Hgb Hct MCV MCH MCHC RDW Std Deviation RDW Coeff of Fabrice Plt Count MPV Immature Gran % (Auto) Neut % (Auto) Lymph % (Auto) [place] % (Auto) Eos % (Auto) Baso % (Auto) Absolute Neuts (auto) Absolute Lymphs (auto) Nucleated RBC % Differential Comment Platelet Estimate Hypochromasia Anisocytosis Target Cells Stomatocytes Sodium Potassium Chloride Carbon Dioxide Anion Gap BUN Creatinine Estim Creat Clear Calc Est GFR (MDRD) Af Amer Est GFR (MDRD) Non-Af BUN/Creatinine Ratio Glucose Calcium Phosphorus 4.8 Magnesium 2.2 Total Bilirubin Direct Bilirubin AST ALT Alkaline Phosphatase Total Protein Albumin Globulin POC Glucose 97 85 07/17/19 07/17/19 07/17/19 00:02 04:10 04:10 WBC 8.6 RBC 2.65 L Hgb 9.1 L Hct 28.4 L MCV 107.2 H MCH 34.3 H MCHC 32.0 RDW Std Deviation 61.2 H RDW Coeff of Fabrice 15.6 H Plt Count 63 L MPV 12.7 H Immature Gran % (Auto) 0.700 Neut % (Auto) 91.3 H Lymph % (Auto) 4.2 L [place] % (Auto) 3.4 Eos % (Auto) 0.1 Baso % (Auto) 0.3 Absolute Neuts (auto) 7.9 H Absolute Lymphs (auto) 0.36 L Nucleated RBC % 0.2 Differential Comment SCANNED Platelet Estimate MOD DEC Hypochromasia 1+ Anisocytosis 2+ Target Cells RARE Stomatocytes RARE Sodium 138 Potassium 4.2 Chloride 101 Carbon Dioxide 25.0 Anion Gap 12 BUN 65 H Creatinine 3.78 H Estim Creat Clear Calc 8.39 Est GFR (MDRD) Af Amer 16 L Est GFR (MDRD) Non-Af 14 L BUN/Creatinine Ratio 17.2 Glucose 97 Calcium 7.3 L Phosphorus Magnesium Total Bilirubin Direct Bilirubin AST ALT Alkaline Phosphatase Total Protein Albumin Globulin POC Glucose 73 07/17/19 07/17/19 07/17/19 04:10 05:17 12:18 WBC RBC Hgb Hct MCV MCH MCHC RDW Std Deviation RDW Coeff of Fabrice Plt Count MPV Immature Gran % (Auto) Neut % (Auto) Lymph % (Auto) [place] % (Auto) Eos % (Auto) Baso % (Auto) Absolute Neuts (auto) Absolute Lymphs (auto) Nucleated RBC % Differential Comment Platelet Estimate Hypochromasia Anisocytosis Target Cells Stomatocytes Sodium Potassium Chloride Carbon Dioxide Anion Gap BUN Creatinine Estim Creat Clear Calc Est GFR (MDRD) Af Amer Est GFR (MDRD) Non-Af BUN/Creatinine Ratio Glucose Calcium Phosphorus Magnesium Total Bilirubin 0.50 Direct Bilirubin 0.32 H AST 109 H ALT 66 H Alkaline Phosphatase 417 H Total Protein 5.3 L Albumin 1.6 L Globulin 3.7 POC Glucose 85 112 H 07/17/19 07/18/19 07/18/19 17:36 00:36 05:00 WBC 10.6 RBC 2.99 L Hgb 9.9 L Hct 31.7 L MCV 106.0 H MCH 33.1 H MCHC 31.2 L RDW Std Deviation 60.2 H RDW Coeff of Fabrice 15.4 H Plt Count 59 L MPV 13.4 H Immature Gran % (Auto) 0.700 Neut % (Auto) 90.4 H Lymph % (Auto) 3.7 L [place] % (Auto) 4.9 Eos % (Auto) 0.1 Baso % (Auto) 0.2 Absolute Neuts (auto) 9.6 H Absolute Lymphs (auto) 0.39 L Nucleated RBC % 0.4 Differential Comment Platelet Estimate Hypochromasia Anisocytosis Target Cells Stomatocytes Sodium Potassium Chloride Carbon Dioxide Anion Gap BUN Creatinine Estim Creat Clear Calc Est GFR (MDRD) Af Amer Est GFR (MDRD) Non-Af BUN/Creatinine Ratio Glucose Calcium Phosphorus Magnesium Total Bilirubin Direct Bilirubin AST ALT Alkaline Phosphatase Total Protein Albumin Globulin POC Glucose 98 82 07/18/19 05:00 WBC RBC Hgb Hct MCV MCH MCHC RDW Std Deviation RDW Coeff of Fabrice Plt Count MPV Immature Gran % (Auto) Neut % (Auto) Lymph % (Auto) [place] % (Auto) Eos % (Auto) Baso % (Auto) Absolute Neuts (auto) Absolute Lymphs (auto) Nucleated RBC % Differential Comment Platelet Estimate Hypochromasia Anisocytosis Target Cells Stomatocytes Sodium 135 L Potassium 3.6 Chloride 97 L Carbon Dioxide 29.0 Anion Gap 9 BUN 40 H Creatinine 2.62 H Estim Creat Clear Calc 11.78 Est GFR (MDRD) Af Amer 25 L Est GFR (MDRD) Non-Af 21 L BUN/Creatinine Ratio 15.3 Glucose 102 Calcium 7.3 L Phosphorus Magnesium Total Bilirubin Direct Bilirubin AST ALT Alkaline Phosphatase Total Protein Albumin Globulin POC Glucose Microbiology 07/17/19 19:30 Stool C. difficile DNA Amplification - Final 07/14/19 11:35 Urine, Clean Catch Urine Culture - Final Culture exhibits no growth. 07/14/19 10:45 Blood Culture (Wb) - Right Foot Blood Culture - Preliminary No growth in 48 hours. 07/14/19 09:57 Blood Culture (Wb) - Right Forearm Blood Culture - Preliminary No growth in 48 hours. 07/14/19 13:51 Mucosa - Nasopharyngeal Respiratory Panel (PCR) - Final Influenza A (Subtype H1) Clinical Impression(s) from Imaging Studies Chest X-Ray 07/14/19 09:09 IMPRESSION: 1. New development of a right upper lobe and right lung base pneumonic consolidations. 2. Bibasilar pleural effusions are identified which are unchanged. Electronically Signed: Vijay Shanks, at 9:20 EST Tel , Service support , Chest X-Ray 07/14/19 11:55 IMPRESSION: 1. NG tube noted in place in good position. 2. Endotracheal tube is noted in place with its tip at the carinal bifurcation. This is a low position in the endotracheal tube should be withdrawn approximately 2 cm 3. Right lung pneumonic consolidations which are unchanged. 4. Moderate-sized bibasilar pleural effusions which are unchanged. Electronically Signed: Vijay Shanks at 12:42 EST Tel , Service support , ADDENDUM: 07/14/19 1302 IMPRESSION: 1. NG tube noted in place in good position. 2. Endotracheal tube is noted in place with its tip at the carinal bifurcation. This is a low position in the endotracheal tube should be withdrawn approximately 2 cm 3. Right lung pneumonic consolidations which are unchanged. 4. Moderate-sized bibasilar pleural effusions which are unchanged. N.B. : The above information has been verbally conveyed by Vijay Shanks to Humberto Ward MD, on 07/14/2019 12:55:55 (ET). Electronically Signed: Vijay Shanks, at 12:42 EST Tel , Service support , Chest X-Ray 07/14/19 13:56 IMPRESSION: The endotracheal tube and NG tube noted in place in good position in this patient with right-sided pneumonic consolidations and bibasilar pleural effusions which are unchanged. Electronically Signed: Vijay Shanks, at 14:41 EST Tel , Service support , Chest X-Ray 07/15/19 08:22 IMPRESSION: Right upper lobe and right lung base pneumonic consolidations which are unchanged in this patient with moderate sized bibasilar pleural effusions which also are unchanged. Electronically Signed: iVjay Shanks, at 10:54 EST Tel , Service support , Medical Necessity - Tobacco Use Smoking Status: Former smoker Assessment/Plan All Active Problems (Last Reviewed 07/14/19 @ 12:[address] Jacob Boswell MD) Pneumonia (Acute) Influenza (Acute) Respiratory failure (Acute) Respiratory failure (Acute) Pneumonia (Acute) Healthcare-associated pneumonia (Acute) Problem with dialysis access (Resolved) History of cytomegalovirus infection (Resolved) Sepsis (Acute) Pneumonia, bacterial (Resolved) History of renal transplant (Resolved) RECOMMENDATIONS: 1. Continue Airvo, as the patient will not tolerate BiPAP, and wean FiO2 to maintain oxygen saturations at or above 90%. 2. Given weak cough, orders for IPV therapy with aerosols have been placed. 3. Encourage incentive spirometer use and mobilize patient as tolerated. 4. Continue Tamiflu and empiric antimicrobials. Recommend completing a 7-day treatment course of antimicrobials, despite negative culture data. 5. Continue hemodialysis support per nephrology recommendations. 6. Continue appropriate prophylaxis. IMPRESSIONS: 1. Acute combined on chronic hypoxemic respiratory failure Multifactorial in etiology and related to hypervolemia in the setting of end-stage renal disease with recent missed hemodialysis session, coupled with a history of recurrent pleural effusions, healthcare associated pneumonia and influenza. The patient responded well to invasive mechanical ventilatory support and was able to be extubated on June. She is profoundly weak and malnourished. Accordingly, her cough is quite weak as well. We will plan to continue her on Airvo, as she will not tolerate any form of BiPAP therapy due to anxiety. Wean FiO2 to maintain oxygen saturations at or above 90%. The patient will require aggressive physical therapy and nutritional support services. She will be continued on Tamiflu to complete a 5-day treatment course. Recommend continuing empiric antimicrobials to complete a 7-day treatment course. Encourage incentive spirometer use and mobilize patient as tolerated. 2. Severe sepsis Secondary to influenza A with concern for superimposed bacterial pneumonia. Accordingly, the patient will be continued on broad-spectrum antimicrobials along with Tamiflu. I would recommend that antibiotics be continued to complete a 7-day treatment course. 3. End-stage renal disease on hemodialysis Nephrology following to assist with hemodialysis needs. 4. History of gastric CA/history of renal transplant with subsequent rejection/severe protein calorie malnutrition Complicates care, management, recovery and prognosis. Nutrition is currently following to assist with dietary needs. This note was generated with [employer] dictation software. It may contain incorrect words, spelling, and punctuation that were not noted in checking the note before signing. Code Visit Inpatient E&M: 37020 Subs Hosp L3
--- NOTE | 2019-07-18 07:06 | PCM.PN.HOSP ---
Patient Problems: Active and Suspected Problems (Last Reviewed 07/14/19 @ 12:[address] Jacob Boswell MD) Pneumonia (Acute) Influenza (Acute) Respiratory failure (Acute) Respiratory failure (Acute) Pneumonia (Acute) Reason for Visit: Follow-up acute respiratory failure Subjective: Patient was weaned off the vent day prior. Remains significantly anxious. Objective: GENERAL: Awake; cooperative HEENT: ET tube in place EYES; Anicteric, NECK; supple, normal thyroid, RESPIRATORY: Diminished to auscultation CARDIOVASCULAR: Regular S1 S2, GI: soft, normoactive bowel sounds, : No Renal angle tenderness; EXTREMITIES: No edema, no clubbing, MUSCULOSKELETAL: muscle waisting NEURO: No lateralizing signs SKIN: Dry skin PSYCH; flat affect Vitals/I&O's: Vital Signs Temp Pulse Resp BP Pulse Ox 97.8 F 93 19 H 152/90 H 96 07/18/19 01:00 07/18/19 05:18 07/18/19 05:18 07/18/19 05:00 07/18/19 05:18 Oxygen Flow Rate (L/min) 6 Oxygen Delivery Method Nasal Cannula Weight: 28.8 kg Body Mass Index (BMI) 12.7 Finger Stick Blood Glucose 104 Intake and Output for Last 24 Hours 07/16/19 07/17/19 07/18/19 23:59 23:59 23:59 Intake Total 1138.59 / 1145.39 710.54 / 710.54 337 / 337 Output Total 65 / 65 420 / 420 0 / 0 Balance 1073.59 / 1080.39 290.54 / 290.54 337 / 337 Microbiology Past 72 Hours 07/17/19 19:30 Stool C. difficile DNA Amplification - Final 07/14/19 11:35 Urine, Clean Catch Urine Culture - Final Culture exhibits no growth. 07/14/19 10:45 Blood Culture (Wb) - Right Foot Blood Culture - Preliminary No growth in 48 hours. 07/14/19 09:57 Blood Culture (Wb) - Right Forearm Blood Culture - Preliminary No growth in 48 hours. 07/14/19 13:51 Mucosa - Nasopharyngeal Respiratory Panel (PCR) - Final Influenza A (Subtype H1) Laboratory Results 07/17/19 04:10: Total Bilirubin 0.50, Direct Bilirubin 0.32 H, AST 109 H, ALT 66 H, Alkaline Phosphatase 417 H, Total Protein 5.3 L, Albumin 1.6 L, Globulin 3.7 07/17/19 12:18: POC Glucose 112 H 07/17/19 17:36: POC Glucose 98 07/18/19 00:36: POC Glucose 82 07/18/19 05:00: WBC 10.6, RBC 2.99 L, Hgb 9.9 L, Hct 31.7 L, MCV 106.0 H, MCH 33.1 H, MCHC 31.2 L, RDW Std Deviation 60.2 H, RDW Coeff of Fabrice 15.4 H, Plt Count 59 L, MPV 13.4 H, Immature Gran % (Auto) 0.700, Neut % (Auto) 90.4 H, Lymph % (Auto) 3.7 L, [place] % (Auto) 4.9, Eos % (Auto) 0.1, Baso % (Auto) 0.2, Absolute Neuts (auto) 9.6 H, Absolute Lymphs (auto) 0.39 L, Nucleated RBC % 0.4 07/18/19 05:00: Sodium 135 L, Potassium 3.6, Chloride 97 L, Carbon Dioxide 29.0, Anion Gap 9, BUN 40 H, Creatinine 2.62 H, Estim Creat Clear Calc 11.78, Est GFR (MDRD) Af Amer 25 L, Est GFR (MDRD) Non-Af 21 L, BUN/Creatinine Ratio 15.3, Glucose 102, Calcium 7.3 L Current Medications Albuterol Sulfate (Ventolin Aerosols) 2.5 mg INHALATION Q2H PRN PRN PRN Reason: SOB OR ANXIETY Dronabinol (Marinol) 2.5 mg PO 4X/DAYCM FORMERLY [facility], [facility]1983 Last Admin: 07/17/19 21:53 Dose: 2.5 mg Documented by: Escitalopram Oxalate (Lexapro) 10 mg PO DAILY [facility]LY [facility], [facility]1983 Last Admin: 07/17/19 14:22 Dose: 10 mg Documented by: Famotidine (Pepcid) 20 mg PO DAILY [facility], [facility] Last Admin: 07/17/19 14:22 Dose: 20 mg Documented by: Glucagon () 1 mg IM .X1 PRN PRN Reason: Hypoglycemia Sodium Chloride () 250 mls @ 15 mls/hr IV .[id number] PRN PRN Reason: Saline Flush Sodium Chloride () 250 mls @ 15 mls/hr IV .[id number] PRN PRN Reason: Additional IVPB Infusion Dextrose (Dextrose 10%-Water) 250 mls @ 999 mls/hr IV .Q16M PRN; Protocol PRN Reason: HYPOGLYCEMIA Last Infusion: 07/15/19 04:38 Dose: Infused Documented by: Cefepime HCl 0.5 gm/ Sodium (Chloride) 50 mls @ 100 mls/hr IV Q24H [facility], [facility] Last Infusion: 07/17/19 15:00 Dose: Infused Documented by: Enteral Nutritional Formula (Vital Af 1.2 Patrice Liquid) 1,000 mls @ 30 mls/hr GT .[id number] [facility], [facility] Last Admin: 07/18/19 05:55 Dose: 30 mls/hr Documented by: Lorazepam (Ativan) 0.5 mg PO DAILY PRN PRN Reason: ANXIETY Last Admin: 07/17/19 10:16 Dose: 0.5 mg Documented by: Metoprolol Tartrate (Lopressor (Beta Lucas)) 25 mg PO BID [facility], [facility] Last Admin: 07/17/19 17:31 Dose: 25 mg Documented by: Oseltamivir Phosphate (Tamiflu) 30 mg PO TuThSa@1700 FOR[facility], [facility] Stop: 07/22/19 17:01 Last Admin: 07/17/19 17:32 Dose: 30 mg Documented by: Oxycodone HCl (Oxyir) 5 mg PO Q6H PRN PRN PRN Reason: Pain Score 1-10/10 Polyethylene Glycol (Miralax) 17 gm PO DAILY PRN PRN PRN Reason: Constipation Senna/Docusate Sodium (Senokot-S, Maria Guadalupe-Colace) 2 tablet PO BID PRN PRN PRN Reason: Constipation Sodium Chloride () 10 - 40 ml IV UD PRN PRN Reason: SALINE FLUSH Last Admin: 07/16/19 19:59 Dose: 20 ml Documented by: STROKE Vital Signs/Narrative: Vital Signs Pulse Resp BP Pulse Ox 07/18/19 05:18 93 19 H 96 07/18/19 05:00 91 20 H 152/90 H 95 07/18/19 04:00 91 20 H 145/92 H 96 Medical Necessity - Tobacco Use Smoking Status: Former smoker Assessment/Plan All Active Problems (Last Reviewed 07/14/19 @ 12:[address] Jacob Boswell MD) Pneumonia (Acute) Influenza (Acute) Respiratory failure (Acute) Respiratory failure (Acute) Pneumonia (Acute) Healthcare-associated pneumonia (Acute) Problem with dialysis access (Resolved) History of cytomegalovirus infection (Resolved) Sepsis (Acute) Pneumonia, bacterial (Resolved) History of renal transplant (Resolved) Patient is a 48-year-old lady presented to the emergency department with progressive generalized weakness lethargy and shortness of breath 1. Severe sepsis ?Secondary to acute influenza A infection with superimposed bacterial pneumonia right upper lobe and lung base pneumonic consolidation. Cultures were obtained in the emergency department patient did receive IV fluids per protocol. Subsequently started on antiviral medication (Tamiflu) in addition to cefepime Levaquin and vancomycin?patient remains in ICU ?07/15/2019: Patient remains in ICU still on the vent and febrile. ?07/16/2019 cultures have remained negative to date. -07/17/2019: Patient weaned off the vent this a.m. Blood and sputum cultures so far negative to date. 2. Acute hypoxic respiratory failure secondary to influenza A with superimposed pneumonia ?Management as discussed above in addition patient was intubated in the ED admitted to the intensive care unit with consult placed to Dr. Vann with intensive care case discussed with him prior to patient being admitted will defer subsequent vent management ?07/15/2019 patient remains intubated in the ICU management of mechanical ventilation deferred to Dr. Vann with intensive care Case discussed with him. -07/16/2019 she did fail her weaning trial this morning. Patient was reported to be tachypneic with significant anxiety. Subsequently started on Precedex. Her blood cultures have so far remain negative to date. -07/17/2019: Patient weaned off the vent this a.m. ?07/18/2019: Patient was extubated from the vent the day prior. Remains in ICU patient is extremely anxious. Cultures obtained on admission have remained negative to date. Patient remains on cefepime with plans to discontinue if final cultures come back negative. 3. End-stage renal disease Patient did miss dialysis on 07/13/2019. Consult placed to patient's form maker plaster Dr. Marietta Mcdaniel. Did speak with her plan is for patient to undergo emergency dialysis -07/15/2019 patient underwent dialysis the day prior has been seen by Dr. Marietta Mcdaniel following. 07/16/2019; patient did tolerate dialysis the day prior. 4. Hyperkalemia Secondary to end-stage renal disease patient undergo dialysis for treatment 5. History of renal transplant ?With subsequent rejection 6. History of gastric CA ?Patient in remission following gastrectomy 7. Severe protein calorie malnutrition ?Patient is cachectic, has low BMI of 13.1 in addition to muscle wasting consult placed to dietitian 8. Thrombocytopenia ?Suspected to be secondary to sepsis monitoring serial CBC 9. History of chronic bilateral pleural effusion ?Imaging studies obtained on admission demonstrated presence of patient bilateral pleural effusion 10. DVT prophylaxis ?Bilateral SCDs Chemoprophylaxis contraindicated in view of patient's low platelet count 11. Hypoglycemia ?Patient had hypoglycemia episode during the evening with glucose dropping to 25. Resuscitated with dextrose 12. Anemia ?Secondary to anemia of end-stage renal disease monitoring H&H with plans to transfuse if patient becomes symptomatic or hemoglobin falls below 7 13. History of CMV colitis ?Stable Code Visit Inpatient E&M: 63705 Subs Hosp L2
[2019-07-18] MEDS: Famotidine 20 MG Tablet PO (10:43)
[2019-07-18] MEDS: Metoprolol Tartrate 25 MG Tablet PO ×2 (10:43→22:12)
[2019-07-18] MEDS: Escitalopram Oxalate 10 MG Tablet PO (10:43)
--- NOTE | 2019-07-18 11:05 | NT.THERAPY_ITS ---
Nutrition Therapy Report - History Nutrition Services has been consulted to:: Manage enteral nutrition, Conduct nutrition education, Conduct nutrition counseling Current diet / nutrition support order:: Regular/no added salt diet. Vital AF 1.2 Patrice @ 30 ml/hr - Anthropometric Measurements Height:: 4 ft 11 in Weight:: 28.8 kg Body Mass Index (BMI):: 12.8 - Relevant Labs Relevant Labs:: WBC 11.6 K/mm3 (4.4-11.0) H 07/14/19 09:57 RBC 2.99 M/mm3 (4.2-5.4) L 07/18/19 05:00 Hgb 9.9 g/dL (12.0-15.0) L 07/18/19 05:00 Hct 31.7 % (37-47) L 07/18/19 05:00 MCV 106.0 fL (81-99) H 07/18/19 05:00 MCH 33.1 pg (27.0-32.0) H 07/18/19 05:00 MCHC 31.2 g/dL (32-36) L 07/18/19 05:00 RDW Std Deviation 60.2 fl (35.1-43.9) H 07/18/19 05:00 RDW Coeff of Fabrice 15.4 % (11.6-14.6) H 07/18/19 05:00 Plt Count 59 K/mm3 (150-450) L 07/18/19 05:00 MPV 13.4 fl (6.2-12.0) H 07/18/19 05:00 Immature Gran % (Auto) 1.800 % (0.0-0.9) H 07/15/19 04:20 Neut % (Auto) 90.4 % (47-70) H 07/18/19 05:00 Lymph % (Auto) 3.7 % (19-41) L 07/18/19 05:00 Absolute Neuts (auto) 9.6 X10^3/uL (2.0-7.7) H 07/18/19 05:00 Absolute Lymphs (auto) 0.39 X10^3/uL (0.83-4.51) L 07/18/19 05:00 APTT 40.1 Seconds (24.1-36.2) H 07/14/19 09:57 Sodium 135 mmol/L (136-145) L 07/18/19 05:00 Potassium 6.1 mmol/L (3.5-5.1) H* 07/14/19 09:57 Chloride 97 mmol/L (98-107) L 07/18/19 05:00 BUN 40 mg/dL (7-18) H 07/18/19 05:00 Creatinine 2.62 mg/dL (0.55-1.02) H 07/18/19 05:00 Est GFR (MDRD) Af Amer 25 mL/min (>60) L 07/18/19 05:00 Est GFR (MDRD) Non-Af 21 mL/min (>60) L 07/18/19 05:00 Glucose 149 mg/dL (74-106) H 07/15/19 04:20 Lactic Acid 2.3 mmol/L (0.4-1.9) H* 07/14/19 10:45 Calcium 7.3 mg/dL (8.5-10.1) L 07/18/19 05:00 Direct Bilirubin 0.32 mg/dL (0.00-0.30) H 07/17/19 04:10 AST 109 U/L (15-37) H 07/17/19 04:10 ALT 66 U/L (13-56) H 07/17/19 04:10 Alkaline Phosphatase 417 U/L (45-117) H 07/17/19 04:10 Total Protein 5.3 g/dL (6.4-8.2) L 07/17/19 04:10 Albumin 1.6 g/dL (3.2-5.0) L 07/17/19 04:10 Globulin 4.9 g/dL (2.2-4.2) H 07/14/19 09:57 Albumin/Globulin Ratio 0.5 RATIO (0.9-2.4) L 07/14/19 09:57 - Assessment Food / Nutrition-Related History:: ICU rounds today--Re-estimated nutrition need for repletion~3514-1215 kcal &~50-60 gm protein/day. Pt refusing PO diet so, will change TF product to Nepro Carb Steady continuous via PEG TF to meet~100% estimated nutrition needs for pro/patrice repletion. PO is not providing anything substantial at this time but, suggest continue for comfort as pt requests. Wt fluctuates given HD/fluid status but, overall wt down~1 Kg since initial assessment. Pt reports was taking bolus TF at home only once per day so, it is preferable to cont with continuous TF in an effort to deliver more pro/patrice since refusing PO at this time. Pt reports has used Nepro Carb Steady TF in the past w ithout issue & agrees with plan to change current TF of Vital AF to Nepro Carb Steady via PEG tube for nutrition. Pt with signs & symptoms of severe pro/patrice malnutrition AEB severe suboptimal intake, severe wt loss~5-6% x past 1 month or less and severe body fat/muscle mass depletion. - Nutrition Diagnosis Problem / Etiology / Signs & Symptoms (PES):: Severe pro/patrice malnutrition of chronic disease related to increased nutrient needs due to illness and anorexia AEB severe suboptimal intake/ refusing PO, suboptimal TF support, severe wt loss~5-6% x past 1 month or less & 1 Kg since admission and visible severe body fat/muscle mass depletion; +NFPA. Evidence of Malnutrition Exists:: Yes Severe PCM:: Chronic Illness - Nutrition Intervention Nutrition Prescription:: D/C Vital AF 1.2 Patrice @ 30 ml/hr & start Nepro Carb Steady @ 25 ml/hr & increase as tolerated to goal rate 35 ml/hr. Continue Regular diet for comfort as pt tolerates. - Food / Nutrient Delivery Interventions Summary of nutrition intervention:: Change PEG TF to better meet re-estimated nutrition needs ~9811-7527 kcal & 50-60 gm protein for repletion. Add ONS & encourage PO as tolerated. Nutrition support ordered as / adjusted to:: Nepro Carb Steady @ 25 ml/hr and increase as rima to goal rate 35 ml/hr with 120 ml water flush Q 3-4 hours as needed to provide 1512 kcal, 68 gm protein, 1450 ml free water daily. Cont. Regular/no added salt diet with Mighty Shakes & Magic Cup added to meals as tolerated. Nutrition education provided?: Yes - pt agreeable to TF change from Vital AF 1.2 patrice to Nepro Carb Steady. - MNT Monitoring Further MNT monitoring and evaluation required?: Yes - Follow-up in 1-2 days for TF tolerance, intake, wt & labs. MNT Follow-up in:: 1-2 days
[2019-07-18] MEDS: Dronabinol 2.5 MG Capsule PO ×3 (11:37→22:12)
[2019-07-18 11:51] LABS: Bedside Glucose 71 mg/dL (70-110)
[2019-07-18] MEDS: NEPRO TUBE FEED 1,000 ML 30 ML GT (11:57)
[2019-07-18] MEDS: LORazepam 0.5 MG Tablet PO (11:57)
[2019-07-18 16:36] LABS: Bedside Glucose 104 mg/dL (70-110)
[2019-07-19] VITALS (43 sets, daily range): BP systolic 143–200; BP diastolic 87–114; PULSE 85–104; RESP 20–31; TEMP 36.3–36.7; O2SAT 90–99
[2019-07-19 00:31] LABS: Bedside Glucose 135 mg/dL (70-110)
[2019-07-19 04:49] LABS: Absolute Lymphocyte Count 0.43 X10^3/uL (0.83-4.51); Absolute Neutrophil Count 10.6 X10^3/uL (2.0-7.7); Basophil# 0.01 X10^3/uL; Basophil% 0.1 % (0-1); Eosinophil# 0.02 X10^3/uL; Eosinophils% 0.2 % (0-5); Hematocrit 32.7 % (37-47); Hemoglobin 10.9 g/dL (12.0-15.0); Lymphocyte # 0.43 X10^3/ul (4.0); Lymphocyte % 3.6 % (19-41); Mean Corp Hgb Conc 33.3 g/dL (32-36); Mean Corpuscular Hgb 34.5 pg (27.0-32.0); Mean Corpuscular Volume 103.5 fL (81-99); Monocyte% 5.9 % (0-10); NRBC Flagged by Analyzer 0.3 % (0-5); Neutrophil # 10.63 X10^3/uL (2.7-7.7); Neutrophil % 89.6 % (47-70); POSITIVE COUNT YES; POSITIVE DIFFERENTIAL YES; Platelet Count 53 K/mm3 (150-450); RBC Distribution Width CV 15.1 % (11.6-14.6); RBC Distribution Width SD 58.1 fl (35.1-43.9); Red Blood Count 3.16 M/mm3 (4.2-5.4); White Blood Count 11.9 K/mm3 (4.4-11.0)
[2019-07-19 04:52] LABS: Differential Indicated SCAN CRITERIA MET
[2019-07-19 05:02] LABS: Anion Gap 12 (5-15); BUN 57 mg/dL (7-18); BUN/Creat Ratio 15.4 RATIO (10-20); Calcium,Total 7.7 mg/dL (8.5-10.1); Chloride 97 mmol/L (98-107); Creatinine, Serum 3.69 mg/dL (0.55-1.02); EST Glomerular Filtration Rate 14 mL/min (>60); Est Glom Filt Rate - Afr Amer 17 mL/min (>60); Estimated Creatinine Clearance 8.57 ml/min; Glucose 136 mg/dL (74-106); Potassium 3.4 mmol/L (3.5-5.1); Sodium Level 136 mmol/L (136-145)
[2019-07-19] MEDS: Albuterol 2.5 MG/3 ML VIAL.NEB. INHALATION ×4 (05:30→23:19)
--- NOTE | 2019-07-19 07:05 | PN_ITS ---
Subjective: Patient did okay overnight. Patient continues to require noninvasive therapy for respiratory status, whether Airvo or BiPAP therapy. Staff continues to report minimal cooperation with any request of physical activity. Patient reports no subjective change in her overall condition over the last 24 hours. General: Alert, Oriented x3, - - Mild respiratory distress. Cachectic. HEENT: Atraumatic, PERRLA, EOMI, Normocephalic, - - Slight scleral injection without icterus Oral: No Gingival or Mucosal Lesions/ Ulcerations, Dry Mucosa Neck: Supple, No JVD, No Nodes, Trachea Midline Lungs: No rhonchi, No wheeze, No rales, Diminished, - - Poor effort. Cardiovascular: Normal S1, Normal S2, No murmurs, No rub noted, No Gallop, Tachycardic Abdomen: Bowel Sounds Present, Soft, Non Tender, Non-Distended Extremities: No clubbing, No cyanosis, No edema Skin: No breakdown Musculoskeletal: No Tenderness to Palpation of Joints or Extremities, Cachexia, Muscle Wasting Lymphatic: No Cervical, Supraclavicular, or Inguinal Adenopathy Neurological: Cranial nerves II-XII grossly intact, Neuro grossly intact - Poor cooperation Psych/Mental Status: Anxious, Flat Affect, Depressed Vital Signs Temp Pulse Resp BP Pulse Ox 36.6 C 94 22 H 184/98 H 93 07/19/19 04:00 07/19/19 06:51 07/19/19 06:51 07/19/19 06:00 07/19/19 06:51 Oxygen Flow Rate (L/min) 15 Oxygen Delivery Method CPAP Weight: 63.8 kg Body Mass Index (BMI) 12.8 Finger Stick Blood Glucose 104 Intake and Output for Last 24 Hours 07/17/19 07/18/19 07/19/19 23:59 23:59 23:59 Intake Total 710.54 / 710.54 768 / 768 0 / 0 Output Total 420 / 420 0 / 0 0 / 0 Balance 290.54 / 290.54 768 / 768 0 / 0 Labs (Last 48 Hours) 07/17/19 07/17/19 07/17/19 04:10 12:18 17:36 WBC RBC Hgb Hct MCV MCH MCHC RDW Std Deviation RDW Coeff of Fabrice Plt Count MPV Immature Gran % (Auto) Neut % (Auto) Lymph % (Auto) [place] % (Auto) Eos % (Auto) Baso % (Auto) Absolute Neuts (auto) Absolute Lymphs (auto) Nucleated RBC % Sodium Potassium Chloride Carbon Dioxide Anion Gap BUN Creatinine Estim Creat Clear Calc Est GFR (MDRD) Af Amer Est GFR (MDRD) Non-Af BUN/Creatinine Ratio Glucose Calcium Total Bilirubin 0.50 Direct Bilirubin 0.32 H AST 109 H ALT 66 H Alkaline Phosphatase 417 H Total Protein 5.3 L Albumin 1.6 L Globulin 3.7 POC Glucose 112 H 98 07/18/19 07/18/19 07/18/19 00:36 05:00 05:00 WBC 10.6 RBC 2.99 L Hgb 9.9 L Hct 31.7 L MCV 106.0 H MCH 33.1 H MCHC 31.2 L RDW Std Deviation 60.2 H RDW Coeff of Fabrice 15.4 H Plt Count 59 L MPV 13.4 H Immature Gran % (Auto) 0.700 Neut % (Auto) 90.4 H Lymph % (Auto) 3.7 L [place] % (Auto) 4.9 Eos % (Auto) 0.1 Baso % (Auto) 0.2 Absolute Neuts (auto) 9.6 H Absolute Lymphs (auto) 0.39 L Nucleated RBC % 0.4 Sodium 135 L Potassium 3.6 Chloride 97 L Carbon Dioxide 29.0 Anion Gap 9 BUN 40 H Creatinine 2.62 H Estim Creat Clear Calc 11.78 Est GFR (MDRD) Af Amer 25 L Est GFR (MDRD) Non-Af 21 L BUN/Creatinine Ratio 15.3 Glucose 102 Calcium 7.3 L Total Bilirubin Direct Bilirubin AST ALT Alkaline Phosphatase Total Protein Albumin Globulin POC Glucose 82 07/18/19 07/18/19 07/19/19 11:43 16:29 00:23 WBC RBC Hgb Hct MCV MCH MCHC RDW Std Deviation RDW Coeff of Fabrice Plt Count MPV Immature Gran % (Auto) Neut % (Auto) Lymph % (Auto) [place] % (Auto) Eos % (Auto) Baso % (Auto) Absolute Neuts (auto) Absolute Lymphs (auto) Nucleated RBC % Sodium Potassium Chloride Carbon Dioxide Anion Gap BUN Creatinine Estim Creat Clear Calc Est GFR (MDRD) Af Amer Est GFR (MDRD) Non-Af BUN/Creatinine Ratio Glucose Calcium Total Bilirubin Direct Bilirubin AST ALT Alkaline Phosphatase Total Protein Albumin Globulin POC Glucose 71 104 135 H 07/19/19 07/19/19 04:35 04:35 WBC 11.9 H RBC 3.16 L Hgb 10.9 L Hct 32.7 L MCV 103.5 H MCH 34.5 H MCHC 33.3 D RDW Std Deviation 58.1 H RDW Coeff of Fabrice 15.1 H Plt Count 53 L MPV Immature Gran % (Auto) 0.600 Neut % (Auto) 89.6 H Lymph % (Auto) 3.6 L [place] % (Auto) 5.9 Eos % (Auto) 0.2 Baso % (Auto) 0.1 Absolute Neuts (auto) 10.6 H Absolute Lymphs (auto) 0.43 L Nucleated RBC % 0.3 Sodium 136 Potassium 3.4 L Chloride 97 L Carbon Dioxide 27.0 Anion Gap 12 BUN 57 H Creatinine 3.69 H Estim Creat Clear Calc 8.57 Est GFR (MDRD) Af Amer 17 L Est GFR (MDRD) Non-Af 14 L BUN/Creatinine Ratio 15.4 Glucose 136 H Calcium 7.7 L Total Bilirubin Direct Bilirubin AST ALT Alkaline Phosphatase Total Protein Albumin Globulin POC Glucose Microbiology 07/17/19 19:30 Stool C. difficile DNA Amplification - Final Medical Necessity - Tobacco Use Smoking Status: Former smoker Assessment/Plan All Active Problems (Last Reviewed 07/14/19 @ 12:[address] Jacob Boswell MD) Pneumonia (Acute) Influenza (Acute) Respiratory failure (Acute) Respiratory failure (Acute) Pneumonia (Acute) Healthcare-associated pneumonia (Acute) Problem with dialysis access (Resolved) History of cytomegalovirus infection (Resolved) Sepsis (Acute) Pneumonia, bacterial (Resolved) History of renal transplant (Resolved) RECOMMENDATIONS: 1. Continue Airvo, as the patient will not tolerate BiPAP, and wean FiO2 to maintain oxygen saturations at or above 90%. 2. Given weak cough, orders for IPV therapy with aerosols have been placed. May schedule aerosols 3. Encourage incentive spirometer use and mobilize patient as tolerated. 4. Continue Tamiflu and empiric antimicrobials. Recommend completing a 7- day treatment course of antimicrobials, despite negative culture data. 5. Continue hemodialysis support per nephrology recommendations. 6. Increase beta-sonya. Potentially add secondary antihypertensive IMPRESSIONS: 1. Acute combined on chronic hypoxemic respiratory failure Multifactorial in etiology and related to hypervolemia in the setting of end-stage renal disease with recent missed hemodialysis session, coupled with a history of recurrent pleural effusions, healthcare associated pneumonia and influenza. She is profoundly weak and malnourished. Accordingly, her cough is quite weak as well. We will plan to continue her on Airvo, as she will not tolerate any form of BiPAP therapy due to anxiety. Wean FiO2 to maintain oxygen saturations at or above 90%. The patient will require aggressive physical therapy and nutritional support services. She will be continued on Tamiflu to complete a 5-day treatment course. Recommend continuing empiric antimicrobials to complete a 7-day treatment course. Encourage incentive spirometer use and mobilize patient as tolerated. Stressed to the patient that cooperation will be required to recover given her poor baseline nutritional status. 2. Severe sepsis Secondary to influenza A with concern for superimposed bacterial pneumonia. Accordingly, the patient will be continued on broad-spectrum antimicrobials along with Tamiflu. I would recommend that antibiotics be continued to complete a 7-day treatment course. 3. End-stage renal disease on hemodialysis Nephrology following to assist with hemodialysis needs. Patient's beta- sonya will be increased. We will reevaluate following hemodialysis to see if additional antihypertensives are required. 4. History of gastric CA/history of renal transplant with subsequent rejection/severe protein calorie malnutrition Complicates care, management, recovery and prognosis. Nutrition is currently following to assist with dietary needs. Code Visit Inpatient E&M: 78046 [facility] L3
[2019-07-19 07:12] LABS: Anisocytosis 1+; Hypochromasia 1+; Macrocytosis 2+; Platelet Estimate MOD DEC (ADEQ)
[2019-07-19] MEDS: Famotidine 20 MG Tablet PO (08:47)
[2019-07-19] MEDS: Escitalopram Oxalate 10 MG Tablet PO (08:47)
[2019-07-19] MEDS: Dronabinol 2.5 MG Capsule PO ×2 (08:47→16:37)
[2019-07-19] MEDS: Metoprolol Tartrate 50 MG Tablet PO ×2 (08:48→21:22)
[2019-07-19] MEDS: 0.9% Saline Lock 10 ML Syringe IV ×3 (10:54→17:08)
[2019-07-19] MEDS: LORazepam 0.5 MG Tablet PO (10:54)
[2019-07-19] MEDS: hydrALAZINE 20 MG/ML Vial 10 MG IV ×3 (10:55→23:04)
--- NOTE | 2019-07-19 11:32 | CASEMGMT ---
Addendum entered by Milagros Lama 07/19/19 12:26: Return call from [facility] and they are unable to accept anyone under the age of 55. Referral made to [facility]. They will review pt information and get back with RAPHAEL. ANGELES Mera Original Note: Social Work SW met with pt in room and introduced self and role of SW. Pt answers call to name but does not open eyes. SW proceeded to talk with pt. Eyes remained closed and pt did answer a few questions but then states she cannot breathe. SW informed pt of purpose of visit for d/c planning and possible need for SNF but SW could visit at a later time. Pt then initiated conversation and asked what her options were. SW read list of in network facilities with pt and then pt states she cannot think at this time and closed down conversation. SW asked for permission to call and pt granted permission. Phone call to pt Medardo who states pt was able to get up and around the house and do a few things but was not active. She was able to get to second floor bathroom. Medardo transports pt to Dialysis at [facility] on T,TH,S 7am. Medardo states that pt has not been giving herself the tube feedings at home correctly although he reminds and encourages her to do so. Medardo also states that he feels she needs a SNF at this time to monitor feeding as well as intensive physical therapy for pt successful recovery. List of SNFs in network with pt insurance read to Medardo and he would like pt to stay in [place] but has no preference on facility. He will be able to continue to transport her to dialysis. RAPHAEL did inquired if pt has history of depression and Medardo declines although does states he would not be surprised if she is getting depressed at this time. Medardo has also had pneumonia and unable to visit pt but states he is feeling better today and hopes to visit pt later tis evening. Phone call to Aure at [facility] and they do have beds available. Referral faxed. SW will await determination if they can accept pt. ANGELES Mera
[2019-07-19 12:01] LABS: Bedside Glucose 132 mg/dL (70-110)
--- NOTE | 2019-07-19 12:24 | PCM.PN.REN ---
Patient Problems: Active and Suspected Problems (Last Reviewed 07/14/19 @ 12:[address] Jacob Boswell MD) Pneumonia (Acute) Influenza (Acute) Respiratory failure (Acute) Respiratory failure (Acute) Pneumonia (Acute) Subjective: off vent, remains on airvo. Complains of thick secretions. difficult to expectorate, complain of SOB. Tolerating TF well, no residuals per nursing staff. - Physical Exam Vitals/I&O's: Vital Signs Temp Pulse Resp BP Pulse Ox 97.8 F 93 22 H 150/96 H 97 07/19/19 12:00 07/19/19 12:00 07/19/19 12:00 07/19/19 12:00 07/19/19 12:00 Oxygen Flow Rate (L/min) 15 Oxygen Delivery Method CPAP Weight: 28.5 kg Body Mass Index (BMI) 12.8 Finger Stick Blood Glucose 104 Intake and Output for Last 24 Hours 07/17/19 07/18/19 07/19/19 23:59 23:59 23:59 Intake Total 710.54 / 710.54 768 / 768 768 / 768 Output Total 420 / 420 0 / 0 0 / 0 Balance 290.54 / 290.54 768 / 768 768 / 768 General: Alert, - - responsive, weak, debilitated, cachectic Lungs: Rhonchi, - - secretions rt lung Cardiovascular: Regular rate Abdomen: Bowel Sounds Present, Soft, Non Tender, Non-Distended Extremities: No edema Psych/Mental Status: Alert and oriented to time, place, person, mood and affect Microbiology Past 72 Hours 07/14/19 09:57 Blood Culture (Wb) - Right Forearm Blood Culture - Final No growth in 5 days. 07/14/19 10:45 Blood Culture (Wb) - Right Foot Blood Culture - Final No growth in 5 days. 07/17/19 19:30 Stool C. difficile DNA Amplification - Final 07/14/19 11:35 Urine, Clean Catch Urine Culture - Final Culture exhibits no growth. Laboratory Results 07/18/19 16:29: POC Glucose 104 07/19/19 00:23: POC Glucose 135 H 07/19/19 04:35: Sodium 136, Potassium 3.4 L, Chloride 97 L, Carbon Dioxide 27.0, Anion Gap 12, BUN 57 H, Creatinine 3.69 H, Estim Creat Clear Calc 8.57, Est GFR (MDRD) Af Amer 17 L, Est GFR (MDRD) Non-Af 14 L, BUN/Creatinine Ratio 15.4, Glucose 136 H, Calcium 7.7 L 07/19/19 04:35: WBC 11.9 H, RBC 3.16 L, Hgb 10.9 L, Hct 32.7 L, MCV 103.5 H, MCH 34.5 H, MCHC 33.3 D, RDW Std Deviation 58.1 H, RDW Coeff of Fabrice 15.1 H, Plt Count 53 L, Immature Gran % (Auto) 0.600, Neut % (Auto) 89.6 H, Lymph % (Auto) 3.6 L, [place] % (Auto) 5.9, Eos % (Auto) 0.2, Baso % (Auto) 0.1, Absolute Neuts (auto) 10.6 H, Absolute Lymphs (auto) 0.43 L, Nucleated RBC % 0.3, Differential Comment , Platelet Estimate MOD DEC, Hypochromasia 1+, Anisocytosis 1+, Macrocytosis 2+ 07/19/19 11:54: POC Glucose 132 H Current Medications Albuterol Sulfate (Ventolin Aerosols) 2.5 mg INHALATION Q2H PRN PRN PRN Reason: SOB OR ANXIETY Last Admin: 07/19/19 11:09 Dose: 2.5 mg Documented by: Dronabinol (Marinol) 2.5 mg PO 4X/DAYCOX MONETT Last Admin: 07/19/19 11:57 Dose: Not Given Documented by: Escitalopram Oxalate (Lexapro) 10 mg PO DAILY [facility] Last Admin: 07/19/19 08:47 Dose: 10 mg Documented by: Famotidine (Pepcid) 20 mg PO DAILY [facility] Last Admin: 07/19/19 08:47 Dose: 20 mg Documented by: Glucagon () 1 mg IM .X1 PRN PRN Reason: Hypoglycemia Hydralazine HCl (Apresoline Iv) 10 mg IV Q6H PRN PRN PRN Reason: SBP > 160 Last Admin: 07/19/19 10:55 Dose: 10 mg Documented by: Sodium Chloride () 250 mls @ 15 mls/hr IV .[id number] PRN PRN Reason: Saline Flush Sodium Chloride () 250 mls @ 15 mls/hr IV .[id number] PRN PRN Reason: Additional IVPB Infusion Dextrose (Dextrose 10%-Water) 250 mls @ 999 mls/hr IV .Q16M PRN; Protocol PRN Reason: HYPOGLYCEMIA Last Infusion: 07/15/19 04:38 Dose: Infused Documented by: Cefepime HCl 0.5 gm/ Sodium (Chloride) 50 mls @ 100 mls/hr IV Q24H [facility] Stop: 07/20/19 14:01 Last Infusion: 07/18/19 15:36 Dose: Infused Documented by: Enteral Nutritional Formula (Nepro Carb Steady) 1,000 mls @ 30 mls/hr GT .[id number] [facility] Last Admin: 07/18/19 11:57 Dose: 30 mls/hr Documented by: Lorazepam (Ativan) 0.5 mg PO DAILY PRN PRN Reason: ANXIETY Last Admin: 07/19/19 10:54 Dose: 0.5 mg Documented by: Metoprolol Tartrate (Lopressor (Beta Lucas)) 50 mg PO BID [facility] Last Admin: 07/19/19 08:48 Dose: 50 mg Documented by: Oseltamivir Phosphate (Tamiflu) 30 mg PO TuThSa@1700 [facility] Stop: 07/22/19 17:01 Last Admin: 07/17/19 17:32 Dose: 30 mg Documented by: Oxycodone HCl (Oxyir) 5 mg PO Q6H PRN PRN PRN Reason: Pain Score 1-10/10 Polyethylene Glycol (Miralax) 17 gm PO DAILY PRN PRN PRN Reason: Constipation Senna/Docusate Sodium (Senokot-S, Maria Guadalupe-Colace) 2 tablet PO BID PRN PRN PRN Reason: Constipation Sodium Chloride () 10 - 40 ml IV UD PRN PRN Reason: SALINE FLUSH Last Admin: 07/19/19 10:54 Dose: 10 ml Documented by: Medical Necessity - Tobacco Use Smoking Status: Former smoker Assessment/Plan All Active Problems (Last Reviewed 07/14/19 @ 12:[address] Jacob Boswell MD) Pneumonia (Acute) Influenza (Acute) Respiratory failure (Acute) Respiratory failure (Acute) Pneumonia (Acute) Healthcare-associated pneumonia (Acute) Problem with dialysis access (Resolved) History of cytomegalovirus infection (Resolved) Sepsis (Acute) Pneumonia, bacterial (Resolved) History of renal transplant (Resolved) 1. 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 Next hemodialysis Tues 2. acute respiratory failure due to pneumonia, influenza. 3. Acute pneumonia with consolidation in compromised host. 4. FTT cont tube feedings 5. chronic pleural effusion 6. Influenza A positive 7. Anemia RICKY therapy with dialysis DW nursing staff and pt mother at bedside
--- NOTE | 2019-07-19 15:36 | PCM.PN.HOSP ---
Patient Problems: Active and Suspected Problems (Last Reviewed 07/14/19 @ 12:[address] Jacob Boswell MD) Pneumonia (Acute) Influenza (Acute) Respiratory failure (Acute) Respiratory failure (Acute) Pneumonia (Acute) Reason for Visit: pneumonia Subjective: still short of breath. Vitals/I&O's: Vital Signs Temp Pulse Resp BP Pulse Ox 36.6 C 98 22 H 150/96 H 96 07/19/19 12:00 07/19/19 14:35 07/19/19 14:35 07/19/19 12:00 07/19/19 14:35 Oxygen Flow Rate (L/min) 15 Oxygen Delivery Method CPAP Weight: 28.5 kg Body Mass Index (BMI) 12.8 Finger Stick Blood Glucose 104 Intake and Output for Last 24 Hours 07/17/19 07/18/19 07/19/19 23:59 23:59 23:59 Intake Total 710.54 / 710.54 768 / 768 938 / 938 Output Total 420 / 420 0 / 0 0 / 0 Balance 290.54 / 290.54 768 / 768 938 / 938 General: Alert, - - on high-flow oxygen. cachectic. afebrile. HEENT: Atraumatic, - - temporal wasting. Oral: Moist Mucosa, No Gingival or Mucosal Lesions/ Ulcerations Lungs: Diminished, - - coarse breath sounds. Cardiovascular: Regular rate, Regular Rhythm, Normal S1, Normal S2 Abdomen: Bowel Sounds Present, Soft, Non Tender, Non-Distended, No Hepato-splenomegaly Extremities: No edema, No Calf Tenderness Skin: No rashes, No breakdown Musculoskeletal: Cachexia, Muscle Wasting - profound Psych/Mental Status: Appropriate, Flat Affect Microbiology Past 72 Hours 07/14/19 09:57 Blood Culture (Wb) - Right Forearm Blood Culture - Final No growth in 5 days. 07/14/19 10:45 Blood Culture (Wb) - Right Foot Blood Culture - Final No growth in 5 days. 07/17/19 19:30 Stool C. difficile DNA Amplification - Final Laboratory Results 07/18/19 16:29: POC Glucose 104 07/19/19 00:23: POC Glucose 135 H 07/19/19 04:35: Sodium 136, Potassium 3.4 L, Chloride 97 L, Carbon Dioxide 27.0, Anion Gap 12, BUN 57 H, Creatinine 3.69 H, Estim Creat Clear Calc 8.57, Est GFR (MDRD) Af Amer 17 L, Est GFR (MDRD) Non-Af 14 L, BUN/Creatinine Ratio 15.4, Glucose 136 H, Calcium 7.7 L 07/19/19 04:35: WBC 11.9 H, RBC 3.16 L, Hgb 10.9 L, Hct 32.7 L, MCV 103.5 H, MCH 34.5 H, MCHC 33.3 D, RDW Std Deviation 58.1 H, RDW Coeff of Fabrice 15.1 H, Plt Count 53 L, Immature Gran % (Auto) 0.600, Neut % (Auto) 89.6 H, Lymph % (Auto) 3.6 L, [place] % (Auto) 5.9, Eos % (Auto) 0.2, Baso % (Auto) 0.1, Absolute Neuts (auto) 10.6 H, Absolute Lymphs (auto) 0.43 L, Nucleated RBC % 0.3, Differential Comment , Platelet Estimate MOD DEC, Hypochromasia 1+, Anisocytosis 1+, Macrocytosis 2+ 07/19/19 11:54: POC Glucose 132 H Current Medications Albuterol Sulfate (Ventolin Aerosols) 2.5 mg INHALATION Q2H PRN PRN PRN Reason: SOB OR ANXIETY Last Admin: 07/19/19 11:09 Dose: 2.5 mg Documented by: Dronabinol (Marinol) 2.5 mg PO 4X/[facility] Last Admin: 07/19/19 11:57 Dose: Not Given Documented by: Escitalopram Oxalate (Lexapro) 10 mg PO DAILY [facility] Last Admin: 07/19/19 08:47 Dose: 10 mg Documented by: Famotidine (Pepcid) 20 mg PO DAILY [facility] Last Admin: 07/19/19 08:47 Dose: 20 mg Documented by: Glucagon () 1 mg IM .X1 PRN PRN Reason: Hypoglycemia Hydralazine HCl (Apresoline Iv) 10 mg IV Q6H PRN PRN PRN Reason: SBP > 160 Last Admin: 07/19/19 10:55 Dose: 10 mg Documented by: Sodium Chloride () 250 mls @ 15 mls/hr IV .[id number] PRN PRN Reason: Saline Flush Sodium Chloride () 250 mls @ 15 mls/hr IV .[id number] PRN PRN Reason: Additional IVPB Infusion Dextrose (Dextrose 10%-Water) 250 mls @ 999 mls/hr IV .Q16M PRN; Protocol PRN Reason: HYPOGLYCEMIA Last Infusion: 07/15/19 04:38 Dose: Infused Documented by: Cefepime HCl 0.5 gm/ Sodium (Chloride) 50 mls @ 100 mls/hr IV Q24H [facility] Stop: 07/20/19 14:01 Last Infusion: 07/19/19 15:33 Dose: Infused Documented by: Enteral Nutritional Formula (Nepro Carb Steady) 1,000 mls @ 30 mls/hr GT .[id number] [facility] Last Admin: 07/18/19 11:57 Dose: 30 mls/hr Documented by: Lorazepam (Ativan) 0.5 mg PO DAILY PRN PRN Reason: ANXIETY Last Admin: 07/19/19 10:54 Dose: 0.5 mg Documented by: Metoprolol Tartrate (Lopressor (Beta Lucas)) 50 mg PO BID [facility] Last Admin: 07/19/19 08:48 Dose: 50 mg Documented by: Oseltamivir Phosphate (Tamiflu) 30 mg PO TuThSa@1700 [facility] Stop: 07/22/19 17:01 Last Admin: 07/17/19 17:32 Dose: 30 mg Documented by: Oxycodone HCl (Oxyir) 5 mg PO Q6H PRN PRN PRN Reason: Pain Score 1-10/10 Polyethylene Glycol (Miralax) 17 gm PO DAILY PRN PRN PRN Reason: Constipation Senna/Docusate Sodium (Senokot-S, Maria Guadalupe-Colace) 2 tablet PO BID PRN PRN PRN Reason: Constipation Sodium Chloride () 10 - 40 ml IV UD PRN PRN Reason: SALINE FLUSH Last Admin: 07/19/19 14:51 Dose: 10 ml Documented by: STROKE Vital Signs/Narrative: Vital Signs Temp Pulse Resp BP Pulse Ox 07/19/19 14:35 98 22 H 96 07/19/19 12:00 36.6 C 93 22 H 150/96 H 97 Medical Necessity - Tobacco Use Smoking Status: Former smoker Assessment/Plan All Active Problems (Last Reviewed 07/14/19 @ 12:[address] Jacob Boswell MD) Pneumonia (Acute) Influenza (Acute) Respiratory failure (Acute) Respiratory failure (Acute) Pneumonia (Acute) Healthcare-associated pneumonia (Acute) Problem with dialysis access (Resolved) History of cytomegalovirus infection (Resolved) Sepsis (Acute) Pneumonia, bacterial (Resolved) History of renal transplant (Resolved) 1. severe sepsis POA 2/2 pneumonia and influenza A BCx, C diff, UCx, strep Ag, Leg Ag negative 2. presumed gram negative pneumonia on cefepime through the 3rd pulm toilet may be a secondary bacterial pneumonia due to influenza A 3. Influenza A on oseltamivir through the 4. Acute hypoxic respiratory failure 2/2 above on high-flow oxygen wean as tolerated poor effort will inhibit recovery 5. severe protein malnutrition albumin 1.6 with severe muscle wasting on tube feeds nutrition following on dronabinol 6. 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 7. debility Karnosky score 30, severely disabled complicates overall care 8. VTE prophylaxis: SCDs. Code Visit Inpatient E&M: 19693 Subs Hosp L2
--- NOTE | 2019-07-19 16:00 | CHAPLAIN ---
Type of Pastoral Visit ___ Initial Visit _x__ Follow-up Visit ___ On-call Visit ___ General Patient Visit ___ Spiritual Assessment ___ Family Conference ___ Bereavement ___ Rapid Response ___ Code Blue ___ Other (describe below) Pastoral Care Referral From _x__ Patient _x__ Family ___ Nurse ___ Physician ___ Adult Probation Officer ___ Pilot Captain ___ Other (describe below) Sacrament/Intervention _x__ Active listening ___ Anointing ___ Adventism ___ Bereavement ___ Communion ___ Esmer exploration ___ ___ Life review _x__ Prayer ___ Reconciliation ___ Sacrament of Sick _x__ Supportive presence ___ Wedding ___ Other (describe below) Pastoral Comments
[2019-07-19 17:55] LABS: Bedside Glucose 124 mg/dL (70-110)
[2019-07-19] MEDS: NEPRO TUBE FEED 1,000 ML 30 ML GT (19:46)
[2019-07-19 23:35] LABS: Bedside Glucose 132 mg/dL (70-110)
[2019-07-20] VITALS (33 sets, daily range): BP systolic 88–172; BP diastolic 69–111; PULSE 91–133; RESP 18–33; TEMP 36.5–36.9; O2SAT 90–100
[2019-07-20 04:12] LABS: Anion Gap 12 (5-15); BUN 76 mg/dL (7-18); BUN/Creat Ratio 17.2 RATIO (10-20); Chloride 96 mmol/L (98-107); Creatinine, Serum 4.42 mg/dL (0.55-1.02); EST Glomerular Filtration Rate 11 mL/min (>60); Est Glom Filt Rate - Afr Amer 14 mL/min (>60); Estimated Creatinine Clearance 7.08 ml/min; Glucose 150 mg/dL (74-106); Potassium 3.4 mmol/L (3.5-5.1); Sodium Level 134 mmol/L (136-145)
[2019-07-20 04:14] LABS: Absolute Lymphocyte Count 0.22 X10^3/uL (0.83-4.51); Absolute Neutrophil Count 13.4 X10^3/uL (2.0-7.7); Basophil# 0.02 X10^3/uL; Basophil% 0.1 % (0-1); Eosinophil# 0.01 X10^3/uL; Eosinophils% 0.1 % (0-5); Hematocrit 31.1 % (37-47); Hemoglobin 10.5 g/dL (12.0-15.0); Lymphocyte # 0.22 X10^3/ul (4.0); Lymphocyte % 1.5 % (19-41); Mean Corp Hgb Conc 33.8 g/dL (32-36); Mean Corpuscular Hgb 34.5 pg (27.0-32.0); Mean Corpuscular Volume 102.3 fL (81-99); Monocyte# 0.77 X10^3/uL; Monocyte% 5.3 % (0-10); NRBC Flagged by Analyzer 0.2 % (0-5); Neutrophil # 13.37 X10^3/uL (2.7-7.7); Neutrophil % 92.2 % (47-70); POSITIVE COUNT YES; POSITIVE DIFFERENTIAL YES; RBC Distribution Width CV 15.3 % (11.6-14.6); RBC Distribution Width SD 56.8 fl (35.1-43.9); Red Blood Count 3.04 M/mm3 (4.2-5.4); White Blood Count 14.5 K/mm3 (4.4-11.0)
[2019-07-20 04:17] LABS: Differential Indicated SCAN CRITERIA MET
[2019-07-20 04:53] LABS: Anisocytosis 1+; Macrocytosis 1+; Platelet Count 39 K/mm3 (150-450); Platelet Estimate MKD DEC (ADEQ)
[2019-07-20 06:35] LABS: Bedside Glucose 119 mg/dL (70-110)
[2019-07-20] MEDS: Albuterol 2.5 MG/3 ML VIAL.NEB. INHALATION ×4 (06:49→22:14)
--- NOTE | 2019-07-20 08:06 | PCM.PN.INT ---
Subjective: Patient did okay overnight. Patient did require NT suctioning secondary to respiratory distress with subjective improvement following the procedure. Patient continues to be very resistant to any interventions from nursing staff. Patient has not been able to come off of Airvo for any significant amount of time over the last 24 hours. Patient did have to be treated with PRN antihypertensives overnight General: Alert, Oriented x3, - - Anxious. Conversational dyspnea noted. HEENT: Atraumatic, PERRLA, EOMI, Normocephalic, - - Temporal wasting noted Oral: No Gingival or Mucosal Lesions/ Ulcerations, Dry Mucosa Neck: Supple, No JVD, No Nodes, Trachea Midline Lungs: No rhonchi, No wheeze, No rales, Diminished, - - Poor effort. Cardiovascular: Normal S1, Normal S2, No murmurs, No rub noted, No Gallop, Tachycardic Abdomen: Bowel Sounds Present, Soft, Non Tender, Non-Distended Extremities: No clubbing, No cyanosis, No edema Skin: No rashes, No breakdown Musculoskeletal: No Tenderness to Palpation of Joints or Extremities Lymphatic: No Cervical, Supraclavicular, or Inguinal Adenopathy Neurological: Cranial nerves II-XII grossly intact, Neuro grossly intact, Motor Exam 5/5 strength throughout Psych/Mental Status: Anxious, Restless Vital Signs Temp Pulse Resp BP Pulse Ox 36.8 C 97 21 H 172/97 H 97 07/20/19 04:00 07/20/19 08:00 07/20/19 08:00 07/20/19 08:00 07/20/19 08:00 Oxygen Flow Rate (L/min) 15 Oxygen Delivery Method Bi-pap Weight: 27.6 kg Body Mass Index (BMI) 12.8 Finger Stick Blood Glucose 104 Intake and Output for Last 24 Hours 07/18/19 07/19/19 07/20/19 23:59 23:59 23:59 Intake Total 768 / 768 1565 / 1565 332 / 332 Output Total 0 / 0 0 / 0 0 / 0 Balance 768 / 768 1565 / 1565 332 / 332 Labs (Last 48 Hours) 07/18/19 07/18/19 07/19/19 11:43 16:29 00:23 WBC RBC Hgb Hct MCV MCH MCHC RDW Std Deviation RDW Coeff of Fabrice Plt Count Immature Gran % (Auto) Neut % (Auto) Lymph % (Auto) [place] % (Auto) Eos % (Auto) Baso % (Auto) Absolute Neuts (auto) Absolute Lymphs (auto) Nucleated RBC % Differential Comment Diff Path Review Platelet Estimate Hypochromasia Anisocytosis Macrocytosis Sodium Potassium Chloride Carbon Dioxide Anion Gap BUN Creatinine Estim Creat Clear Calc Est GFR (MDRD) Af Amer Est GFR (MDRD) Non-Af BUN/Creatinine Ratio Glucose Calcium POC Glucose 71 104 135 H 07/19/19 07/19/19 07/19/19 04:35 04:35 11:54 WBC 11.9 H RBC 3.16 L Hgb 10.9 L Hct 32.7 L MCV 103.5 H MCH 34.5 H MCHC 33.3 D RDW Std Deviation 58.1 H RDW Coeff of Fabrice 15.1 H Plt Count 53 L Immature Gran % (Auto) 0.600 Neut % (Auto) 89.6 H Lymph % (Auto) 3.6 L [place] % (Auto) 5.9 Eos % (Auto) 0.2 Baso % (Auto) 0.1 Absolute Neuts (auto) 10.6 H Absolute Lymphs (auto) 0.43 L Nucleated RBC % 0.3 Differential Comment Diff Path Review Platelet Estimate MOD DEC Hypochromasia 1+ Anisocytosis 1+ Macrocytosis 2+ Sodium 136 Potassium 3.4 L Chloride 97 L Carbon Dioxide 27.0 Anion Gap 12 BUN 57 H Creatinine 3.69 H Estim Creat Clear Calc 8.57 Est GFR (MDRD) Af Amer 17 L Est GFR (MDRD) Non-Af 14 L BUN/Creatinine Ratio 15.4 Glucose 136 H Calcium 7.7 L POC Glucose 132 H 07/19/19 07/19/19 07/20/19 17:52 23:29 03:40 WBC 14.5 H RBC 3.04 L Hgb 10.5 L Hct 31.1 L MCV 102.3 H MCH 34.5 H MCHC 33.8 RDW Std Deviation 56.8 H RDW Coeff of Fabrice 15.3 H Plt Count 39 L* Immature Gran % (Auto) 0.800 Neut % (Auto) 92.2 H Lymph % (Auto) 1.5 L [place] % (Auto) 5.3 Eos % (Auto) 0.1 Baso % (Auto) 0.1 Absolute Neuts (auto) 13.4 H Absolute Lymphs (auto) 0.22 L Nucleated RBC % 0.2 Differential Comment Diff Path Review May foll Platelet Estimate MKD DEC Hypochromasia Anisocytosis 1+ Macrocytosis 1+ Sodium Potassium Chloride Carbon Dioxide Anion Gap BUN Creatinine Estim Creat Clear Calc Est GFR (MDRD) Af Amer Est GFR (MDRD) Non-Af BUN/Creatinine Ratio Glucose Calcium POC Glucose 124 H 132 H 07/20/19 07/20/19 03:40 06:30 WBC RBC Hgb Hct MCV MCH MCHC RDW Std Deviation RDW Coeff of Fabrice Plt Count Immature Gran % (Auto) Neut % (Auto) Lymph % (Auto) [place] % (Auto) Eos % (Auto) Baso % (Auto) Absolute Neuts (auto) Absolute Lymphs (auto) Nucleated RBC % Differential Comment Diff Path Review Platelet Estimate Hypochromasia Anisocytosis Macrocytosis Sodium 134 L Potassium 3.4 L Chloride 96 L Carbon Dioxide 26.0 Anion Gap 12 BUN 76 H Creatinine 4.42 H Estim Creat Clear Calc 7.08 Est GFR (MDRD) Af Amer 14 L Est GFR (MDRD) Non-Af 11 L BUN/Creatinine Ratio 17.2 Glucose 150 H Calcium 8.0 L POC Glucose 119 H Microbiology 07/14/19 09:57 Blood Culture (Wb) - Right Forearm Blood Culture - Final No growth in 5 days. 07/14/19 10:45 Blood Culture (Wb) - Right Foot Blood Culture - Final No growth in 5 days. Medical Necessity - Tobacco Use Smoking Status: Former smoker Assessment/Plan All Active Problems (Last Reviewed 07/14/19 @ 12:[address] Jacob Boswell MD) Pneumonia (Acute) Influenza (Acute) Respiratory failure (Acute) Respiratory failure (Acute) Pneumonia (Acute) Healthcare-associated pneumonia (Acute) Problem with dialysis access (Resolved) History of cytomegalovirus infection (Resolved) Sepsis (Acute) Pneumonia, bacterial (Resolved) History of renal transplant (Resolved) RECOMMENDATIONS: 1. Continue Airvo, as the patient will not tolerate BiPAP, and wean FiO2 to maintain oxygen saturations at or above 90%. 2. Given weak cough, orders for IPV therapy with aerosols have been placed. May schedule aerosols if patient not cooperative 3. Encourage incentive spirometer use and mobilize patient as tolerated. 4. Continue Tamiflu and empiric antimicrobials. Recommend completing a 7-day treatment course of antimicrobials, despite negative culture data. 5. Continue hemodialysis support per nephrology recommendations. 6. Continue beta-sonya. Potentially add secondary antihypertensive per nephrology IMPRESSIONS: 1. Acute combined on chronic hypoxemic respiratory failure Multifactorial in etiology and related to hypervolemia in the setting of end-stage renal disease with recent missed hemodialysis session, coupled with a history of recurrent pleural effusions, healthcare associated pneumonia and influenza. She is profoundly weak and malnourished. Accordingly, her cough is quite weak as well. We will plan to continue her on Airvo, as she will not tolerate any form of BiPAP therapy due to anxiety. Wean FiO2 to maintain oxygen saturations at or above 90%. The patient will require aggressive physical therapy and nutritional support services. Patient has completed a course of Tamiflu after today. Recommend continuing empiric antimicrobials to complete a 7-day treatment course. Encourage incentive spirometer use and mobilize patient as tolerated. Stressed to the patient that cooperation will be required to recover given her poor baseline nutritional status. We will NT suction as necessary. 2. Severe sepsis Secondary to influenza A with concern for superimposed bacterial pneumonia. Accordingly, the patient will be continued on broad-spectrum antimicrobials along with Tamiflu. I would recommend that antibiotics be continued to complete a 7-day treatment course. 3. End-stage renal disease on hemodialysis Nephrology following to assist with hemodialysis needs. Patient's beta-sonya was increased. We will reevaluate following hemodialysis to see if additional antihypertensives are required. 4. History of gastric CA/history of renal transplant with subsequent rejection/severe protein calorie malnutrition Complicates care, management, recovery and prognosis. Nutrition is currently following to assist with dietary needs. Code Visit Inpatient E&M: 93601 Subs Hosp L3
--- NOTE | 2019-07-20 09:44 | PCM.PN.REN ---
Patient Problems: Active and Suspected Problems (Last Reviewed 07/14/19 @ 12:[address] Jacob Boswell MD) Pneumonia (Acute) Influenza (Acute) Respiratory failure (Acute) Respiratory failure (Acute) Pneumonia (Acute) Subjective: seen on dialysis, attempt fluid removal as tolerated. Complains of SOB, secretions on exam. Oxygenation stable. BP stable but tachycardic, anxious. Feels bloated from TF. No residuals per nursing - Physical Exam Vitals/I&O's: Vital Signs Temp Pulse Resp BP Pulse Ox 98.4 F 117 H 20 H 143/102 H 100 07/20/19 09:00 07/20/19 09:00 07/20/19 09:00 07/20/19 09:00 07/20/19 09:00 Oxygen Flow Rate (L/min) 15 Oxygen Delivery Method Nasal Cannula Weight: 27.6 kg Body Mass Index (BMI) 12.8 Finger Stick Blood Glucose 104 Intake and Output for Last 24 Hours 07/18/19 07/19/19 07/20/19 23:59 23:59 23:59 Intake Total 768 / 768 1565 / 1565 332 / 332 Output Total 0 / 0 0 / 0 0 / 0 Balance 768 / 768 1565 / 1565 332 / 332 General: Alert, - - anxious Lungs: Rhonchi Cardiovascular: Tachycardic Abdomen: Bowel Sounds Present, Soft, Non Tender, Non-Distended, - - TF at 35cc/min Extremities: No edema Psych/Mental Status: Anxious Microbiology Past 72 Hours 07/20/19 04:06 Sputum, Induced/[place] Gram Stain - Final 07/14/19 09:57 Blood Culture (Wb) - Right Forearm Blood Culture - Final No growth in 5 days. 07/14/19 10:45 Blood Culture (Wb) - Right Foot Blood Culture - Final No growth in 5 days. 07/17/19 19:30 Stool C. difficile DNA Amplification - Final Laboratory Results 07/19/19 11:54: POC Glucose 132 H 07/19/19 17:52: POC Glucose 124 H 07/19/19 23:29: POC Glucose 132 H 07/20/19 03:40: WBC 14.5 H, RBC 3.04 L, Hgb 10.5 L, Hct 31.1 L, MCV 102.3 H, MCH 34.5 H, MCHC 33.8, RDW Std Deviation 56.8 H, RDW Coeff of Fabrice 15.3 H, Plt Count 39 L*, Immature Gran % (Auto) 0.800, Neut % (Auto) 92.2 H, Lymph % (Auto) 1.5 L, [place] % (Auto) 5.3, Eos % (Auto) 0.1, Baso % (Auto) 0.1, Absolute Neuts (auto) 13.4 H, Absolute Lymphs (auto) 0.22 L, Nucleated RBC % 0.2, Diff Path Review May foll, Platelet Estimate MKD DEC, Anisocytosis 1+, Macrocytosis 1+ 07/20/19 03:40: Sodium 134 L, Potassium 3.4 L, Chloride 96 L, Carbon Dioxide 26.0, Anion Gap 12, BUN 76 H, Creatinine 4.42 H, Estim Creat Clear Calc 7.08, Est GFR (MDRD) Af Amer 14 L, Est GFR (MDRD) Non-Af 11 L, BUN/Creatinine Ratio 17.2, Glucose 150 H, Calcium 8.0 L 07/20/19 06:30: POC Glucose 119 H Current Medications Albuterol Sulfate (Ventolin Aerosols) 2.5 mg INHALATION Q2H PRN PRN PRN Reason: SOB OR ANXIETY Last Admin: 07/20/19 06:49 Dose: 2.5 mg Documented by: Dronabinol (Marinol) 2.5 mg PO 4X/[facility] Last Admin: 07/19/19 21:29 Dose: Not Given Documented by: Escitalopram Oxalate (Lexapro) 10 mg PO DAILY [facility] Last Admin: 07/19/19 08:47 Dose: 10 mg Documented by: Famotidine (Pepcid) 20 mg PO DAILY [facility] Last Admin: 07/19/19 08:47 Dose: 20 mg Documented by: Glucagon () 1 mg IM .X1 PRN PRN Reason: Hypoglycemia Hydralazine HCl (Apresoline Iv) 10 mg IV Q6H PRN PRN PRN Reason: SBP > 160 Last Admin: 07/19/19 23:04 Dose: 10 mg Documented by: Sodium Chloride () 250 mls @ 15 mls/hr IV .[id number] PRN PRN Reason: Saline Flush Sodium Chloride () 250 mls @ 15 mls/hr IV .[id number] PRN PRN Reason: Additional IVPB Infusion Dextrose (Dextrose 10%-Water) 250 mls @ 999 mls/hr IV .Q16M PRN; Protocol PRN Reason: HYPOGLYCEMIA Last Infusion: 07/15/19 04:38 Dose: Infused Documented by: Cefepime HCl 0.5 gm/ Sodium (Chloride) 50 mls @ 100 mls/hr IV Q24H [facility] Stop: 07/20/19 14:01 Last Infusion: 07/19/19 15:33 Dose: Infused Documented by: Enteral Nutritional Formula (Nepro Carb Steady) 1,000 mls @ 30 mls/hr GT .[id number] [facility] Last Admin: 07/19/19 19:46 Dose: 30 mls/hr Documented by: Lorazepam (Ativan) 0.5 mg PO DAILY PRN PRN Reason: ANXIETY Last Admin: 07/19/19 10:54 Dose: 0.5 mg Documented by: Metoprolol Tartrate (Lopressor (Beta Lucas)) 50 mg PO BID [facility] Last Admin: 07/19/19 21:22 Dose: 50 mg Documented by: Oseltamivir Phosphate (Tamiflu) 30 mg PO TuThSa@1700 [facility] Stop: 07/22/19 17:01 Last Admin: 07/17/19 17:32 Dose: 30 mg Documented by: Oxycodone HCl (Oxyir) 5 mg PO Q6H PRN PRN PRN Reason: Pain Score 1-10/10 Polyethylene Glycol (Miralax) 17 gm PO DAILY PRN PRN PRN Reason: Constipation Senna/Docusate Sodium (Senokot-S, Maria Guadalupe-Colace) 2 tablet PO BID PRN PRN PRN Reason: Constipation Sodium Chloride () 10 - 40 ml IV UD PRN PRN Reason: SALINE FLUSH Last Admin: 07/19/19 17:08 Dose: 10 ml Documented by: Medical Necessity - Tobacco Use Smoking Status: Former smoker Assessment/Plan All Active Problems (Last Reviewed 07/14/19 @ 12:[address] Jacob Boswell MD) Pneumonia (Acute) Influenza (Acute) Respiratory failure (Acute) Respiratory failure (Acute) Pneumonia (Acute) Healthcare-associated pneumonia (Acute) Problem with dialysis access (Resolved) History of cytomegalovirus infection (Resolved) Sepsis (Acute) Pneumonia, bacterial (Resolved) History of renal transplant (Resolved) 1. 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 Seen on dialysis, attempt 500cc fluid removal using crit line to assist 2. acute respiratory failure due to pneumonia, influenza. off vent 3. Acute pneumonia with consolidation in compromised host. 4. FTT cont tube feedings 5. chronic pleural effusion 6. Influenza A positive 7. Anemia hgb stable 8. thrombocytopenia, hold heparin DW nursing staff and pt spouse at bedside
[2019-07-20] MEDS: Dronabinol 2.5 MG Capsule PO (10:06)
[2019-07-20] MEDS: Escitalopram Oxalate 10 MG Tablet PO (10:06)
[2019-07-20] MEDS: LORazepam 0.5 MG Tablet PO ×3 (10:06→22:44)
[2019-07-20] MEDS: Metoprolol Tartrate 50 MG Tablet PO ×2 (10:06→22:44)
[2019-07-20] MEDS: oxyCODONE 5 MG Tablet PO ×3 (10:16→22:47)
--- NOTE | 2019-07-20 10:43 | PN_ITS ---
Patient Problems: Active and Suspected Problems (Last Reviewed 07/14/19 @ 12:[address] Jacob Boswell MD) Pneumonia (Acute) Influenza (Acute) Respiratory failure (Acute) Respiratory failure (Acute) Pneumonia (Acute) Reason for Visit: respiratory failure Subjective: Feeling short of breath, despite Airvo and pulse ox of 99%. +Nausea. +abdominal distention. Vitals/I&O's: Vital Signs Temp Pulse Resp BP Pulse Ox 36.9 C 129 H 20 H 132/92 H 100 07/20/19 09:00 07/20/19 10:06 07/20/19 09:00 07/20/19 10:06 07/20/19 09:00 Oxygen Flow Rate (L/min) 15 Oxygen Delivery Method Nasal Cannula Weight: 27.6 kg Body Mass Index (BMI) 12.8 Finger Stick Blood Glucose 104 Intake and Output for Last 24 Hours 07/18/19 07/19/19 07/20/19 23:59 23:59 23:59 Intake Total 768 / 768 1565 / 1565 332 / 332 Output Total 0 / 0 0 / 0 0 / 0 Balance 768 / 768 1565 / 1565 332 / 332 General: Alert, - - tachypneic HEENT: Atraumatic, Normocephalic Oral: Moist Mucosa, No Gingival or Mucosal Lesions/ Ulcerations Neck: No Nodes, Trachea Midline Lungs: - - coarse breath sounds bilaterally. Cardiovascular: Normal S1, No murmurs Abdomen: Bowel Sounds Present, Soft, Non Tender, Non-Distended Extremities: No edema, No Calf Tenderness Skin: No rashes, No breakdown Musculoskeletal: Cachexia, Muscle Wasting Neurological: - - no clonus Psych/Mental Status: Agitated, Anxious Microbiology Past 72 Hours 07/20/19 04:06 Sputum, Induced/Lukens Gram Stain - Final 07/14/19 09:57 Blood Culture (Wb) - Right Forearm Blood Culture - Final No growth in 5 days. 07/14/19 10:45 Blood Culture (Wb) - Right Foot Blood Culture - Final No growth in 5 days. 07/17/19 19:30 Stool C. difficile DNA Amplification - Final Laboratory Results 07/19/19 11:54: POC Glucose 132 H 07/19/19 17:52: POC Glucose 124 H 07/19/19 23:29: POC Glucose 132 H 07/20/19 03:40: WBC 14.5 H, RBC 3.04 L, Hgb 10.5 L, Hct 31.1 L, MCV 102.3 H, MCH 34.5 H, MCHC 33.8, RDW Std Deviation 56.8 H, RDW Coeff of Fabrice 15.3 H, Plt Count 39 L*, Immature Gran % (Auto) 0.800, Neut % (Auto) 92.2 H, Lymph % (Auto) 1.5 L, Schuyler % (Auto) 5.3, Eos % (Auto) 0.1, Baso % (Auto) 0.1, Absolute Neuts (auto) 13.4 H, Absolute Lymphs (auto) 0.22 L, Nucleated RBC % 0.2, Diff Path Review September, Platelet Estimate MKD DEC, Anisocytosis 1+, Macrocytosis 1+ 07/20/19 03:40: Sodium 134 L, Potassium 3.4 L, Chloride 96 L, Carbon Dioxide 26.0, Anion Gap 12, BUN 76 H, Creatinine 4.42 H, Estim Creat Clear Calc 7.08, Est GFR (MDRD) Af Amer 14 L, Est GFR (MDRD) Non-Af 11 L, BUN/Creatinine Ratio 17.2, Glucose 150 H, Calcium 8.0 L 07/20/19 06:30: POC Glucose 119 H Current Medications Albuterol Sulfate (Ventolin Aerosols) 2.5 mg INHALATION Q2H PRN PRN PRN Reason: SOB OR ANXIETY Last Admin: 07/20/19 06:49 Dose: 2.5 mg Documented by: Dronabinol (Marinol) [facility] Last Admin: 07/20/19 10:06 Dose: 2.5 mg Documented by: Escitalopram Oxalate (Lexapro) 10 mg PO DAILY [facility] Last Admin: 07/20/19 10:06 Dose: 10 mg Documented by: Glucagon () 1 mg IM .X1 PRN PRN Reason: Hypoglycemia Hydralazine HCl (Apresoline Iv) 10 mg IV Q6H PRN PRN PRN Reason: SBP > 160 Last Admin: 07/19/19 23:04 Dose: 10 mg Documented by: Sodium Chloride () 250 mls @ 15 mls/hr IV .[id number] PRN PRN Reason: Saline Flush Sodium Chloride () 250 mls @ 15 mls/hr IV .[id number] PRN PRN Reason: Additional IVPB Infusion Dextrose (Dextrose 10%-Water) 250 mls @ 999 mls/hr IV .Q16M PRN; Protocol PRN Reason: HYPOGLYCEMIA Last Infusion: 07/15/19 04:38 Dose: Infused Documented by: Cefepime HCl 0.5 gm/ Sodium (Chloride) 50 mls @ 100 mls/hr IV Q24H [facility] Stop: 07/20/19 14:01 Last Infusion: 07/19/19 15:33 Dose: Infused Documented by: Enteral Nutritional Formula (Nepro Carb Steady) 1,000 mls @ 30 mls/hr GT .[id number] [facility] Last Admin: 07/19/19 19:46 Dose: 30 mls/hr Documented by: Lorazepam (Ativan) 0.5 mg PO DAILY PRN PRN Reason: ANXIETY Last Admin: 07/20/19 10:06 Dose: 0.5 mg Documented by: Metoprolol Tartrate (Lopressor (Beta Lucas)) 50 mg PO BID [facility] Last Admin: 07/20/19 10:06 Dose: 50 mg Documented by: Oseltamivir Phosphate (Tamiflu) 30 mg PO TuThSa@1700 [facility] Stop: 07/22/19 17:01 Last Admin: 07/17/19 17:32 Dose: 30 mg Documented by: Oxycodone HCl (Oxyir) 5 mg PO Q6H PRN PRN PRN Reason: Pain Score 1-10/10 Last Admin: 07/20/19 10:16 Dose: 5 mg Documented by: Pantoprazole Sodium (Protonix) 40 mg PO BID [facility] Polyethylene Glycol (Miralax) 17 gm PO DAILY PRN PRN PRN Reason: Constipation Senna/Docusate Sodium (Senokot-S, Maria Guadalupe-Colace) 2 tablet PO BID PRN PRN PRN Reason: Constipation Sodium Chloride () 10 - 40 ml IV UD PRN PRN Reason: SALINE FLUSH Last Admin: 07/19/19 17:08 Dose: 10 ml Documented by: STROKE Vital Signs/Narrative: Vital Signs Temp Pulse Resp BP BP Pulse Ox 07/20/19 10:06 129 H 132/92 H 07/20/19 09:00 36.9 C 117 H 20 H 143/102 H 100 07/20/19 08:00 97 21 H 172/97 H 97 07/20/19 07:10 99 07/20/19 07:00 101 H 22 H 168/97 H 95 07/20/19 06:49 98 23 H 97 Medical Necessity - Tobacco Use Smoking Status: Former smoker Assessment/Plan All Active Problems (Last Reviewed 07/14/19 @ 12:[address] Jacob Boswell MD) Pneumonia (Acute) Influenza (Acute) Respiratory failure (Acute) Respiratory failure (Acute) Pneumonia (Acute) Healthcare-associated pneumonia (Acute) Problem with dialysis access (Resolved) History of cytomegalovirus infection (Resolved) Sepsis (Acute) Pneumonia, bacterial (Resolved) History of renal transplant (Resolved) 1. severe sepsis * POA * 2/2 pneumonia and influenza A * BCx, C diff, UCx, strep Ag, Leg Ag negative 2. presumed gram negative pneumonia * on cefepime through the * pulm toilet * may be a secondary bacterial pneumonia due to influenza A 3. Influenza A * on oseltamivir through the 4. Acute hypoxic respiratory failure * 2/2 above * on high-flow oxygen * wean as tolerated * poor effort will inhibit recovery 5. severe protein malnutrition * albumin 1.6 with severe muscle wasting * on tube feeds * nutrition following * on dronabinol 6. ESRD * on HD * nephrology following * failed renal xplant. 7. debility * Karnosky score 30, severely disabled * complicates overall care 8. VTE prophylaxis: SCDs. Marina care planning: Spent an additional 15 minutes discussing with the patient and family about palliative care. Patient agreed to speak with palliative care. Explained pad care as supplemental service to help with symptom management. Explained the difference between that and hospice. Code Visit Inpatient E&M: 75470 Subs Hosp L2 Procedures: 85306 Advncd Care Plan 30 Min
--- NOTE | 2019-07-20 12:20 | DIALYSIS ---
Hemodialysis tx completed x 3 hours. Pt tolerated tx fair, fluid removed 500ml using crit-line. Pt did not tolerate attempt to remove 800ml and BP was decreased. Verbal report given to MONTY Alvarado post tx. Next dialysis tx 07/22/19.
--- NOTE | 2019-07-20 12:32 | CASEMGMT ---
Social Work Phone call to Jana at [facility] concerning referral and she states she did not receive fax. Referral refaxed. SW received referral from physician for Palliative care referral. SW met with pt, pt Medardo and pt mother in law. Pt receiving dialysis, did answer SW questions briefly. Permission given to speak with pt and MIL. SW explained that [facility] is unable to accept pt due to age limit and [facility] has not made a decision at this time. Written list of in network facilities along with Medicare star rating given to family with instructions that if they would prefer a different facility to let SW know. Discussed with family Palliative care referral. They are agreeable to meet with Palliative to gain more information at this time. Clinical referral refaxed to [facility]. Will await determination Phone call to Keri at [facility] and referral made. Information faxed. Keri will contact pt spouse and set up an appointment to come into hospital and meet with pt and family regarding Palliative care. ANGELES Mera
[2019-07-20] MEDS: hydrALAZINE 20 MG/ML Vial 10 MG IV (13:48)
[2019-07-20] MEDS: Haloperidol Lactate 5 MG/ML Vial 3 MG IV (15:17)
--- NOTE | 2019-07-20 16:43 | CON.PCM_ITS ---
Problem List (1) Failure to thrive Status: Chronic (2) Respiratory failure Status: Acute Qualifiers: Chronicity: acute (3) Pneumonia Status: Acute (4) ESRD on dialysis Status: Chronic (5) Pleural effusion Status: Chronic (6) Chronic renal failure, stage 5 Status: Inactive History of Present Illness Date of Consult: 07/20/19 Reason for Consult: Dr. Hutchison requested consult for symptom management and medical decision m Requesting physician: []Dr. Hutchison Primary care physician: Deb Gregory MD - History of Present Illness The patient is a 48 year old F [admitted to [facility] on 07/14/2019 after presenting to the emergency department with dyspnea and progressive weakness. Patient has been treated for pneumonia with a couple of days requiring mechanical ventilator support. Extubated two days ago and continues to be burdened by excessive oral secretions, tachycardia and tachypnea. She has been chronically ill for many years requiring a kidney transplant 2-3 years after the effects of chemotherapy and radiation rendered her in ESRD Stage V. Today she is in respiratory distress and too weak to open her eyes for a conversation. She is able to shake her head yes or no to questions and admits she is feeling air hunger and chest pain. Her respiratory rate is 28 and effort is labored. I had a lengthy meeting ]the patient's , his mother and the patient's parents. They were able to tell me about the patient's slow physical decline within the past couple of years. This hospitalization is a sudden change in her condition; however, she has been losing strength, stamina and muscle mass for many months. She is cachectic in appearance. We discussed the cachexia cycle. They reported the patient has not been feeding herself at home adequately and they all agreed she has been giving up. She receives dialysis three times a week and is now hemodynamically unstable as dialysis renders her weaker and hypotensive. Family is agreeable to DNRCC- Ar[place]st without intubation. They are agreeable to increasing oxycodone and ativan frequency orders for comfort care. Dr. Hutchison to write those orders. Family will meet with me and Dr. Hutchison tomorrow morning at 8:30a. Patient Problems: Chronic Problems (Last Reviewed 07/14/19 @ 12:[address] Jacob Boswell MD) Failure to thrive (Chronic) History of gastrectomy (Chronic) s/p left arteriovenous fistula creation (Chronic ~05/06/18) ESRD on dialysis (Chronic) Pleural effusion (Chronic) Renal transplant rejection (Chronic) GERD (gastroesophageal reflux disease) (Chronic) history of failed renal transplant (Chronic) History of gastric cancer (Chronic) Essential hypertension (Chronic) Anemia, chronic renal failure (Chronic) Surgical History: gastric bypass, - - Failed kidney transplant from adoptive mother, AV fistula Home Medications: Ambulatory Orders Medication Instructions Recorded Cyanocobalamin [Vitamin B12] 1,000 mcg IM Q30D 07/03/17 Dronabinol [Marinol] 2.5 mg PO 4X/DAY 07/03/17 Gabapentin [Neurontin] 300 mg PO BIDCM 07/03/17 Levonorgestrel [Mirena] 1 ea VAGINAL UD 07/03/17 Vits [Prenatabs FA ] 1 tab PO DAILY 07/03/17 Tizanidine HCl [Zanaflex] 4 mg PO QHS 04/27/18 Biotin 10,000 mcg PO DAILY 05/05/18 oxycodone-acetaminophen 5 mg-325 1 tab PO Q6H 06/30/18 mg tablet pantoprazole 40 mg tablet,delayed 40 mg PO BID 07/22/18 release Hydroxyzine HCl 10 mg PO Q8 PRN 09/22/18 Metoprolol Tartrate [Lopressor 25 mg PO BID 09/22/18 (beta sonya)] Folic Acid/Vit B Complex and C 0.8 mg PO QHS 11/18/18 [Renal Vitamin Tablet] sucralfate 1 gram tablet 1 g PO QACHS 11/18/18 Prednisone 5 mg PO DAILY 05/09/19 Escitalopram Oxalate 10 mg PO DAILY 07/17/19 Lorazepam [Ativan] 0.5 mg PO DAILY PRN 07/17/19 Allergies Sulfa (Sulfonamide Antibiotics) Allergy (Verified 06/01/19 13:07) Hives NSAIDS (Non-Steroidal Anti-Inflamma Adverse Reaction (Verified 06/01/19 13:07) Other Maternal History Items: No pertinent history - Patient adopted - Social History Lives: Spouse/ Significant Other Smoking Status: Former smoker Physical Exam Objective: Vital Signs Temp Pulse Resp BP Pulse Ox 97.8 F 121 H 23 H 135/88 H 90 07/20/19 13:00 07/20/19 14:53 07/20/19 14:53 07/20/19 14:48 07/20/19 14:48 Oxygen Flow Rate (L/min) 15 Oxygen Delivery Method Nasal Cannula Weight: 60 lb 13.561 oz Body Mass Index (BMI) 12.8 Finger Stick Blood Glucose 104 Intake and Output for Last 24 Hours 07/18/19 07/19/19 07/20/19 23:59 23:59 23:59 Intake Total 768 / 768 1565 / 1565 772 / 772 Output Total 0 / 0 0 / 0 0 / 0 Balance 768 / 768 1565 / 1565 772 / 772 Microbiology Past 72 Hours 07/20/19 04:06 Gram Stain - Final Sputum, Induced/Lukens 07/14/19 09:57 Blood Culture - Final Blood Culture (Wb) - Right Forearm No growth in 5 days. 07/14/19 10:45 Blood Culture - Final Blood Culture (Wb) - Right Foot No growth in 5 days. 07/17/19 19:30 C. difficile DNA Amplification - Final Stool Laboratory Tests Past 24 Hrs 07/20/19 07/20/19 03:40 03:40 WBC 14.5 H RBC 3.04 L Hgb 10.5 L Hct 31.1 L MCV 102.3 H MCH 34.5 H MCHC 33.8 RDW Std Deviation 56.8 H RDW Coeff of Fabrice 15.3 H Plt Count 39 L* Immature Gran % (Auto) 0.800 Neut % (Auto) 92.2 H Lymph % (Auto) 1.5 L [place] % (Auto) 5.3 Eos % (Auto) 0.1 Baso % (Auto) 0.1 Absolute Neuts (auto) 13.4 H Absolute Lymphs (auto) 0.22 L Nucleated RBC % 0.2 Diff Path Review May foll Platelet Estimate MKD DEC Anisocytosis 1+ Macrocytosis 1+ Sodium 134 L Potassium 3.4 L Chloride 96 L Carbon Dioxide 26.0 Anion Gap 12 BUN 76 H Creatinine 4.42 H Estim Creat Clear Calc 7.08 Est GFR (MDRD) Af Amer 14 L Est GFR (MDRD) Non-Af 11 L BUN/Creatinine Ratio 17.2 Glucose 150 H Calcium 8.0 L Assessment/Plan All Active Problems (Last Reviewed 07/14/19 @ 12:[address] Jacob Boswell MD) Pneumonia (Acute) Influenza (Acute) Respiratory failure (Acute) Respiratory failure (Acute) Pneumonia (Acute) Healthcare-associated pneumonia (Acute) Problem with dialysis access (Resolved) History of cytomegalovirus infection (Resolved) Sepsis (Acute) Pneumonia, bacterial (Resolved) History of renal transplant (Resolved) DNRCC Arrest without intubation. Increase ativan and oxycodone frequency to comfort care. Dr. Hutchison to write those orders and will meet with family and myself on 07/21/19 to discuss next steps for comfort care. Code Visit Inpatient E&M: 75698 Init Hosp L1
[2019-07-20] MEDS: Pantoprazole Sodium 40 MG Tablet PO (22:44)
[2019-07-21] VITALS (37 sets, daily range): BP systolic 126–180; BP diastolic 78–107; PULSE 81–108; RESP 22–36; TEMP 35.8–36.6; O2SAT 89–100
[2019-07-21] MEDS: NEPRO TUBE FEED 1,000 ML 30 ML GT (01:12)
[2019-07-21] MEDS: Albuterol 2.5 MG/3 ML VIAL.NEB. INHALATION ×4 (03:27→19:07)
[2019-07-21] MEDS: hydrALAZINE 20 MG/ML Vial 10 MG IV (03:46)
[2019-07-21] MEDS: oxyCODONE 5 MG Tablet PO ×2 (03:47→11:28)
--- NOTE | 2019-07-21 07:29 | PN_ITS ---
Subjective: Patient did okay overnight. Patient continues to report dyspnea despite flow nasal cannula. Patient has been minimally participatory in pulmonary toileting and activity request. Patient did have a family meeting with palliative care yesterday and has another one scheduled this morning at 8:30 AM. Patient is currently DNR CCA with intubation. Patient was relatively resistant to any interaction with me this morning. Patient did tolerate hemodialysis yesterday. Patient has continued to have hypertension overnight. General: Alert, Non-Cooperative, - - Mild to moderate respiratory distress. Cachectic. HEENT: Atraumatic, PERRLA, EOMI, Normocephalic, - - Temporal wasting appreciated Oral: No Gingival or Mucosal Lesions/ Ulcerations, Dry Mucosa Neck: Supple, No JVD, No Nodes, Trachea Midline Lungs: No rhonchi, No wheeze, No rales, Diminished, - - Poor effort Cardiovascular: Normal S1, Normal S2, No murmurs, Bradycardic, No rub noted, No Gallop Abdomen: Bowel Sounds Present, Soft, Non Tender, Non-Distended Extremities: No cyanosis, No edema, Capillary Refill Less than 3 Seconds Skin: - - No change from previous Musculoskeletal: No Tenderness to Palpation of Joints or Extremities Lymphatic: No Cervical, Supraclavicular, or Inguinal Adenopathy Neurological: Cranial nerves II-XII grossly intact, Neuro grossly intact Psych/Mental Status: Flat Affect, Depressed Vital Signs Temp Pulse Resp BP Pulse Ox 36.6 C 94 26 H 152/87 H 95 07/21/19 00:00 07/21/19 06:00 07/21/19 06:00 07/21/19 06:00 07/21/19 06:00 Oxygen Flow Rate (L/min) 15 Oxygen Delivery Method CPAP Weight: 27.4 kg Body Mass Index (BMI) 12.8 Finger Stick Blood Glucose 104 Intake and Output for Last 24 Hours 07/19/19 07/20/19 07/21/19 23:59 23:59 23:59 Intake Total 1565 / 1565 1062 / 1247 469 / 469 Output Total 0 / 0 0 / 0 Balance 1565 / 1565 1062 / 1247 469 / 469 Labs (Last 48 Hours) 07/19/19 07/19/19 07/19/19 11:54 17:52 23:29 WBC RBC Hgb Hct MCV MCH MCHC RDW Std Deviation RDW Coeff of Fabrice Plt Count Immature Gran % (Auto) Neut % (Auto) Lymph % (Auto) Esmeralda % (Auto) Eos % (Auto) Baso % (Auto) Absolute Neuts (auto) Absolute Lymphs (auto) Nucleated RBC % Diff Path Review Platelet Estimate Anisocytosis Macrocytosis Sodium Potassium Chloride Carbon Dioxide Anion Gap BUN Creatinine Estim Creat Clear Calc Est GFR (MDRD) Af Amer Est GFR (MDRD) Non-Af BUN/Creatinine Ratio Glucose Calcium POC Glucose 132 H 124 H 132 H 07/20/19 07/20/19 07/20/19 03:40 03:40 06:30 WBC 14.5 H RBC 3.04 L Hgb 10.5 L Hct 31.1 L MCV 102.3 H MCH 34.5 H MCHC 33.8 RDW Std Deviation 56.8 H RDW Coeff of Fabrice 15.3 H Plt Count 39 L* Immature Gran % (Auto) 0.800 Neut % (Auto) 92.2 H Lymph % (Auto) 1.5 L Esmeralda % (Auto) 5.3 Eos % (Auto) 0.1 Baso % (Auto) 0.1 Absolute Neuts (auto) 13.4 H Absolute Lymphs (auto) 0.22 L Nucleated RBC % 0.2 Diff Path Review May foll Platelet Estimate MKD DEC Anisocytosis 1+ Macrocytosis 1+ Sodium 134 L Potassium 3.4 L Chloride 96 L Carbon Dioxide 26.0 Anion Gap 12 BUN 76 H Creatinine 4.42 H Estim Creat Clear Calc 7.08 Est GFR (MDRD) Af Amer 14 L Est GFR (MDRD) Non-Af 11 L BUN/Creatinine Ratio 17.2 Glucose 150 H Calcium 8.0 L POC Glucose 119 H Microbiology 07/20/19 04:06 Sputum, Induced/Lukens Gram Stain - Final 07/14/19 09:57 Blood Culture (Wb) - Right Forearm Blood Culture - Final No growth in 5 days. 07/14/19 10:45 Blood Culture (Wb) - Right Foot Blood Culture - Final No growth in 5 days. Medical Necessity - Tobacco Use Smoking Status: Former smoker Assessment/Plan All Active Problems (Last Reviewed 07/14/19 @ 12:[address] Jacob Boswell MD) Pneumonia (Acute) Influenza (Acute) Respiratory failure (Acute) Respiratory failure (Acute) Pneumonia (Acute) Healthcare-associated pneumonia (Acute) Problem with dialysis access (Resolved) History of cytomegalovirus infection (Resolved) Sepsis (Acute) Pneumonia, bacterial (Resolved) History of renal transplant (Resolved) RECOMMENDATIONS: 1. Continue Airvo, as the patient will not tolerate BiPAP, and wean FiO2 to maintain oxygen saturations at or above 90%. 2. Given weak cough, orders for IPV therapy with aerosols have been placed. May schedule aerosols if aggressive measures are to be pursued 3. Encourage incentive spirometer use and mobilize patient as tolerated. 4. Complete Tamiflu and empiric antimicrobials courses. 5. Continue hemodialysis support per nephrology recommendations. 6. Continue beta-sonya. Add low-dose Norvasc IMPRESSIONS: 1. Acute combined on chronic hypoxemic respiratory failure Multifactorial in etiology and related to hypervolemia in the setting of end-stage renal disease with recent missed hemodialysis session, coupled with a history of recurrent pleural effusions, healthcare associated pneumonia and influenza. She is profoundly weak and malnourished. Accordingly, her cough is quite weak as well. We will plan to continue her on Airvo, as she will not tolerate any form of BiPAP therapy due to anxiety. Wean FiO2 to maintain oxygen saturations at or above 90%. The patient will require aggressive physical therapy and nutritional support services. Patient should complete Tamiflu and antibiotic courses as previously recommended. Encourage incentive spirometer use and mobilize patient as tolerated. Stressed to the patient that cooperation will be required to recover given her poor baseline nutritional status. We will NT suction as necessary. If patient were to be reintubated, clinical suspicion would be that tracheostomy with LTAC stay would be necessary at a minimum. 2. Severe sepsis Secondary to influenza A with concern for superimposed bacterial pneumonia. Accordingly, the patient will be continued on broad-spectrum antimicrobials along with Tamiflu. I would recommend that antibiotics be continued to complete a 7-day treatment course. 3. End-stage renal disease on hemodialysis Nephrology following to assist with hemodialysis needs. Patient's beta- sonya was increased. Blood pressure remains significantly elevated despite hemodialysis yesterday. Will initiate low-dose Norvasc and titrate up given BMI 4. History of gastric CA/history of renal transplant with subsequent rejection/severe protein calorie malnutrition Complicates care, management, recovery and prognosis. Nutrition is currently following to assist with dietary needs. Code Visit Inpatient E&M: 19722 [facility] Hosp L3
[2019-07-21] MEDS: Pantoprazole Sodium 40 MG Tablet PO ×2 (09:39→21:43)
[2019-07-21] MEDS: Metoprolol Tartrate 50 MG Tablet PO ×2 (09:39→21:43)
[2019-07-21] MEDS: LORazepam 0.5 MG Tablet PO ×2 (09:39→17:47)
[2019-07-21] MEDS: Escitalopram Oxalate 10 MG Tablet PO (09:39)
[2019-07-21] MEDS: amLODIPine 2.5 MG Tablet PO (09:40)
--- NOTE | 2019-07-21 09:51 | PCM.PN.HOSP ---
Patient Problems: Active and Suspected Problems (Last Reviewed 07/14/19 @ 12:[address] Jacob Boswell MD) Pneumonia (Acute) Influenza (Acute) Respiratory failure (Acute) Respiratory failure (Acute) Pneumonia (Acute) Reason for Visit: resp failure Subjective: Got up to chair today. States that she is breathing better. Vitals/I&O's: Vital Signs Temp Pulse Resp BP Pulse Ox 36.6 C 103 H 30 H 171/91 H 100 07/21/19 00:00 07/21/19 09:39 07/21/19 07:33 07/21/19 09:39 07/21/19 07:33 Oxygen Flow Rate (L/min) 15 Oxygen Delivery Method CPAP Weight: 27.4 kg Body Mass Index (BMI) 12.8 Finger Stick Blood Glucose 104 Intake and Output for Last 24 Hours 07/19/19 07/20/19 07/21/19 23:59 23:59 23:59 Intake Total 1565 / 1565 1062 / 1247 469 / 469 Output Total 0 / 0 0 / 0 Balance 1565 / 1565 1062 / 1247 469 / 469 General: Alert, No apparent distress, - - tachypneic. slightly more alert today. HEENT: Atraumatic, Normocephalic Oral: Moist Mucosa, No Gingival or Mucosal Lesions/ Ulcerations Neck: No Nodes, Trachea Midline Lungs: Diminished, - - coarse breath sounds bilaterally. Cardiovascular: Regular rate, Regular Rhythm, Normal S1, Normal S2, No murmurs Abdomen: Bowel Sounds Present, Soft, Non Tender, Non-Distended Extremities: No edema, No Calf Tenderness Musculoskeletal: Cachexia, Muscle Wasting Microbiology Past 72 Hours 07/20/19 04:06 Sputum, Induced/Lukens Gram Stain - Final 07/20/19 04:06 Sputum, Induced/Lukens Respiratory Culture - Preliminary Yeast 07/14/19 09:57 Blood Culture (Wb) - Right Forearm Blood Culture - Final No growth in 5 days. 07/14/19 10:45 Blood Culture (Wb) - Right Foot Blood Culture - Final No growth in 5 days. Current Medications Albuterol Sulfate (Ventolin Aerosols) 2.5 mg INHALATION Q2H PRN PRN PRN Reason: SOB OR ANXIETY Last Admin: 07/21/19 03:27 Dose: 2.5 mg Documented by: Amlodipine Besylate (Norvasc) 2.5 mg PO DAILY [facility] Last Admin: 07/21/19 09:40 Dose: 2.5 mg Documented by: [facility]ronabinol (Marinol) [facility] Last Admin: 07/20/19 23:40 Dose: Not Given Documented by: Escitalopram Oxalate (Lexapro) 10 mg PO DAILY [facility] Last Admin: 07/21/19 09:39 Dose: 10 mg Documented by: Glucagon () 1 mg IM .X1 PRN PRN Reason: Hypoglycemia Hydralazine HCl (Apresoline Iv) 10 mg IV Q6H PRN PRN PRN Reason: SBP > 160 Last Admin: 07/21/19 03:46 Dose: 10 mg Documented by: Sodium Chloride () 250 mls @ 15 mls/hr IV .[id number] PRN PRN Reason: Saline Flush Sodium Chloride () 250 mls @ 15 mls/hr IV .[id number] PRN PRN Reason: Additional IVPB Infusion Dextrose (Dextrose 10%-Water) 250 mls @ 999 mls/hr IV .Q16M PRN; Protocol PRN Reason: HYPOGLYCEMIA Last Infusion: 07/15/19 04:38 Dose: Infused Documented by: Enteral Nutritional Formula (Nepro Carb Steady) 1,000 mls @ 30 mls/hr GT .[id number] [facility] Last Admin: 07/21/19 01:12 Dose: 30 mls/hr Documented by: Lorazepam (Ativan) 0.5 mg PO Q6H PRN PRN Reason: ANXIETY Last Admin: 07/21/19 09:39 Dose: 0.5 mg Documented by: Metoprolol Tartrate (Lopressor (Beta Lucas)) 50 mg PO BID [facility] Last Admin: 07/21/19 09:39 Dose: 50 mg Documented by: Oseltamivir Phosphate (Tamiflu) 30 mg PO TuThSa@1700 [facility] Stop: 07/22/19 17:01 Last Admin: 07/20/19 17:38 Dose: Not Given Documented by: Oxycodone HCl (Oxyir) 5 mg PO Q4H PRN PRN Reason: Pain Score 1-10/10 Last Admin: 07/21/19 03:47 Dose: 5 mg Documented by: Pantoprazole Sodium (Protonix) 40 mg PO BID [facility] Last Admin: 07/21/19 09:39 Dose: 40 mg Documented by: Polyethylene Glycol (Miralax) 17 gm PO DAILY PRN PRN PRN Reason: Constipation Senna/Docusate Sodium (Senokot-S, Maria Guadalupe-Colace) 2 tablet PO BID PRN PRN PRN Reason: Constipation Sodium Chloride () 10 - 40 ml IV UD PRN PRN Reason: SALINE FLUSH Last Admin: 07/19/19 17:08 Dose: 10 ml Documented by: STROKE Vital Signs/Narrative: Vital Signs Pulse Resp BP BP Pulse Ox 07/21/19 09:39 103 H 171/91 H 07/21/19 07:33 88 30 H 100 07/21/19 06:00 94 26 H 152/87 H 95 Medical Necessity - Tobacco Use Smoking Status: Former smoker Assessment/Plan All Active Problems (Last Reviewed 07/14/19 @ 12:[address] Jacob Boswell MD) Pneumonia (Acute) Influenza (Acute) Respiratory failure (Acute) Respiratory failure (Acute) Pneumonia (Acute) Healthcare-associated pneumonia (Acute) Problem with dialysis access (Resolved) History of cytomegalovirus infection (Resolved) Sepsis (Acute) Pneumonia, bacterial (Resolved) History of renal transplant (Resolved) 1. severe sepsis POA 2/2 pneumonia and influenza A BCx, C diff, UCx, strep Ag, Leg Ag negative 2. presumed gram negative pneumonia on cefepime through the 3rd pulm toilet may be a secondary bacterial pneumonia due to influenza A 3. Influenza A on oseltamivir through the 5th 4. Acute hypoxic respiratory failure 2/2 above on high-flow oxygen, stable wean as tolerated poor effort will inhibit recovery 5. severe protein malnutrition albumin 1.6 with severe muscle wasting on tube feeds nutrition following on dronabinol 6. 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 7. debility Karnosky score 30, severely disabled complicates overall care 8. VTE prophylaxis: SCDs. Advanced care planning: Spent an additional 45 minutes with palliative care nursing discussing advanced directives with the patient and family. Last night, patient was changed over to DNR Comfort Care arrest with intubation. Discussed CPR in detail with patient and her family, discussed intubation and tracheostomy. Additionally discussed in the worsening of her condition or new infections we will set her recovery back and will take her longer to recover. Continue to encourage a palliation in regards to symptom control so that she may have some quality of life and try to encourage her to take ownership over no medical care.'s plan will be to try to utilize palliative medications in regards to symptom control in the hopes of avoiding a intubation and tracheostomy. Patient and family were informed that if patient does require to be intubated that she will be proceeding with a tracheostomy fairly immediately. A tracheostomy would likely be a something and she would require permanently. Code Visit Inpatient E&M: 62451 Subs Hosp L2 Procedures: 57613 Advncd Care Plan addl 30 Min
[2019-07-21 10:24] LABS: Pathologist Review Reviewed
[2019-07-21 14:19] LABS: Anion Gap 8 (5-15); BUN 55 mg/dL (7-18); BUN/Creat Ratio 17.5 RATIO (10-20); Calcium,Total 8.2 mg/dL (8.5-10.1); Chloride 97 mmol/L (98-107); Creatinine, Serum 3.14 mg/dL (0.55-1.02); EST Glomerular Filtration Rate 17 mL/min (>60); Est Glom Filt Rate - Afr Amer 20 mL/min (>60); Estimated Creatinine Clearance 9.58 ml/min; Glucose 103 mg/dL (74-106); Potassium 3.6 mmol/L (3.5-5.1); Sodium Level 134 mmol/L (136-145)
[2019-07-21 14:21] LABS: Absolute Lymphocyte Count 0.27 X10^3/uL (0.83-4.51); Absolute Neutrophil Count 10.7 X10^3/uL (2.0-7.7); Basophil# 0.02 X10^3/uL; Basophil% 0.2 % (0-1); Eosinophil# 0.05 X10^3/uL; Eosinophils% 0.4 % (0-5); Hemoglobin 10.2 g/dL (12.0-15.0); Lymphocyte # 0.27 X10^3/ul (4.0); Lymphocyte % 2.2 % (19-41); Mean Corp Hgb Conc 32.9 g/dL (32-36); Mean Corpuscular Volume 103.3 fL (81-99); Monocyte# 0.97 X10^3/uL; NRBC Flagged by Analyzer 0.4 % (0-5); Neutrophil % 88.6 % (47-70); POSITIVE COUNT YES; POSITIVE DIFFERENTIAL YES; POSITIVE MORPHOLOGY YES; RBC Distribution Width CV 15.6 % (11.6-14.6); RBC Distribution Width SD 60.2 fl (35.1-43.9); White Blood Count 12.1 K/mm3 (4.4-11.0)
[2019-07-21 14:22] LABS: Differential Indicated SCAN CRITERIA MET; Platelet Count 21 K/mm3 (150-450)
[2019-07-21 14:26] LABS: Base Excess 8 mmol/L (-2 to +2); Bicarbonate 31.2 mmol/L (22-26); Blood Gas Specimen Type ART; FI02 54; PO2 78 mmHG (75-100); SITE R Brachial; SO2 96 % (95-99); Time Given 1420; Total Carbon Dioxide 33 mmol/L; pCO2 42.1 mmHg (35-45); pH 7.48 (7.35-7.45)
[2019-07-21 15:00] LABS: Platelet Estimate MKD DEC (ADEQ)
--- NOTE | 2019-07-21 15:11 | PCM.PN.REN ---
Patient Problems: Active and Suspected Problems (Last Reviewed 07/14/19 @ 12:[address] Jacob Boswell MD) Pneumonia (Acute) Influenza (Acute) Respiratory failure (Acute) Respiratory failure (Acute) Pneumonia (Acute) Subjective: up to chair, still dyspneic despite good oxygenation - Physical Exam Vitals/I&O's: Vital Signs Temp Pulse Resp BP Pulse Ox 96.4 F L 85 25 H 161/83 H 89 07/21/19 12:00 07/21/19 12:00 07/21/19 12:00 07/21/19 12:00 07/21/19 12:00 Oxygen Flow Rate (L/min) 15 Oxygen Delivery Method CPAP Weight: 27.4 kg Body Mass Index (BMI) 12.8 Finger Stick Blood Glucose 104 Intake and Output for Last 24 Hours 07/19/19 07/20/19 07/21/19 23:59 23:59 23:59 Intake Total 1565 / 1565 1062 / 1247 855 / 855 Output Total 0 / 0 0 / 0 0 / 0 Balance 1565 / 1565 1062 / 1247 855 / 855 General: - - awake, responsive, tachypneic Lungs: Diminished Cardiovascular: Regular rate Abdomen: Bowel Sounds Present, Soft, Non Tender, Non-Distended, - - rima TF Skin: No rashes Musculoskeletal: Muscle Wasting Psych/Mental Status: - - debilitated, wea Microbiology Past 72 Hours 07/20/19 04:06 Sputum, Induced/Lukens Gram Stain - Final 07/20/19 04:06 Sputum, Induced/Lukens Respiratory Culture - Preliminary Yeast 07/14/19 09:57 Blood Culture (Wb) - Right Forearm Blood Culture - Final No growth in 5 days. 07/14/19 10:45 Blood Culture (Wb) - Right Foot Blood Culture - Final No growth in 5 days. Laboratory Results 07/20/19 03:40: Diff Path Review Reviewed 07/21/19 13:57: WBC 12.1 H, RBC 3.00 L, Hgb 10.2 L, Hct 31.0 L, MCV 103.3 H, MCH 34.0 H, MCHC 32.9, RDW Std Deviation 60.2 H, RDW Coeff of Fabrice 15.6 H, Plt Count 21 L*, Immature Gran % (Auto) 0.600, Neut % (Auto) 88.6 H, Lymph % (Auto) 2.2 L, [place] % (Auto) 8.0, Eos % (Auto) 0.4, Baso % (Auto) 0.2, Absolute Neuts (auto) 10.7 H, Absolute Lymphs (auto) 0.27 L, Nucleated RBC % 0.4, Differential Comment COMMENT, Diff Path Review September foll, Platelet Estimate MKD 07/21/19 14:00: Sodium 134 L, Potassium 3.6, Chloride 97 L, Carbon Dioxide 29.0, Anion Gap 8, BUN 55 H, Creatinine 3.14 H, Estim Creat Clear Calc 9.58, Est GFR (MDRD) Af Amer 20 L, Est GFR (MDRD) Non-Af 17 L, BUN/Creatinine Ratio 17.5, Glucose 103, Calcium 8.2 L 07/21/19 14:21: Specimen Type ART, Sample Site R Brachial, pH 7.48 H, Bicarbonate Actual 31.2 H, POC Total CO2 33, Base Excess 8 H, O2 Saturation 96, O2 % 54, ABG pCO2 42.1, ABG pO2 78, O2 Delivery Device Bi / C PAP, Blood Gas Notified Whom ICU MD, Blood Gas Notified Time 1420 Current Medications Albuterol Sulfate (Ventolin Aerosols) 2.5 mg INHALATION Q4HWA.RT [facility] Amlodipine Besylate (Norvasc) 2.5 mg PO DAILY [facility] Last Admin: 07/21/19 09:40 Dose: 2.5 mg Documented by: Dronabinol (Marin[facility]) [facility] Last Admin: 07/21/19 13:43 Dose: Not Given Documented by: Escitalopram Oxalate (Lexapro) 10 mg PO DAILY [facility] Last Admin: 07/21/19 09:39 Dose: 10 mg Documented by: [facility] Glucagon () 1 mg IM .X1 PRN PRN Reason: Hypoglycemia Hydralazine HCl (Apresoline Iv) 10 mg IV Q6H PRN PRN PRN Reason: SBP > 160 Last Admin: 07/21/19 03:46 Dose: 10 mg Documented by: Sodium Chloride () 250 mls @ 15 mls/hr IV .[id number] PRN PRN Reason: Saline Flush Sodium Chloride () 250 mls @ 15 mls/hr IV .[id number] PRN PRN Reason: Additional IVPB Infusion Dextrose (Dextrose 10%-Water) 250 mls @ 999 mls/hr IV .Q16M PRN; Protocol PRN Reason: HYPOGLYCEMIA Last Infusion: 07/15/19 04:38 Dose: Infused Documented by: Enteral Nutritional Formula (Nepro Carb Steady) 1,000 mls @ 30 mls/hr GT .[id number] [facility] Last Admin: 07/21/19 01:12 Dose: 30 mls/hr Documented by: Lorazepam (Ativan) 0.5 mg PO Q6H [facility] Metoprolol Tartrate (Lopressor (Beta Lucas)) 50 mg PO BID [facility] Last Admin: 07/21/19 09:39 Dose: 50 mg Documented by: Oseltamivir Phosphate (Tamiflu) 30 mg PO TuThSa@1700 [facility] Stop: 07/22/19 17:01 Last Admin: 07/20/19 17:38 Dose: Not Given Documented by: Oxycodone HCl (Oxyir) 5 mg PO Q4H [facility] Last Admin: 07/21/19 11:28 Dose: 5 mg Documented by: Pantoprazole Sodium (Protonix) 40 mg PO BID [facility] Last Admin: 07/21/19 09:39 Dose: 40 mg Documented by: Polyethylene Glycol (Miralax) 17 gm PO DAILY PRN PRN PRN Reason: Constipation Senna/Docusate Sodium (Senokot-S, Maria Guadalupe-Colace) 2 tablet PO BID PRN PRN PRN Reason: Constipation Sodium Chloride () 10 - 40 ml IV UD PRN PRN Reason: SALINE FLUSH Last Admin: 07/19/19 17:08 Dose: 10 ml Documented by: Medical Necessity - Tobacco Use Smoking Status: Former smoker Assessment/Plan All Active Problems (Last Reviewed 07/14/19 @ 12:[address] Jacob Boswell MD) Pneumonia (Acute) Influenza (Acute) Respiratory failure (Acute) Respiratory failure (Acute) Pneumonia (Acute) Healthcare-associated pneumonia (Acute) Problem with dialysis access (Resolved) History of cytomegalovirus infection (Resolved) Sepsis (Acute) Pneumonia, bacterial (Resolved) History of renal transplant (Resolved) 1. 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 HD TTS 2. acute respiratory failure due to pneumonia, influenza. off vent 3. Acute pneumonia with consolidation in compromised host. 4. FTT cont tube feedings 5. chronic pleural effusion 6. Influenza A positive 7. Anemia hgb stable 8. thrombocytopenia, hold heparin
[2019-07-21] MEDS: Gabapentin 100 MG Capsule PO (17:47)
[2019-07-21] MEDS: 0.9% Saline Lock 10 ML Syringe IV (17:48)
[2019-07-22] VITALS (33 sets, daily range): BP systolic 128–174; BP diastolic 82–111; PULSE 79–104; RESP 24–37; TEMP 36–36.4; O2SAT 86–99; BMI 12.2
[2019-07-22] MEDS: LORazepam 0.5 MG Tablet PO ×3 (00:09→13:23)
--- NOTE | 2019-07-22 00:20 | CPS ---
increased FIO2 to 55%
[2019-07-22 00:51] LABS: Absolute Lymphocyte Count 0.41 X10^3/uL (0.83-4.51); Absolute Neutrophil Count 9.9 X10^3/uL (2.0-7.7); Basophil# 0.02 X10^3/uL; Basophil% 0.2 % (0-1); Eosinophil# 0.04 X10^3/uL; Eosinophils% 0.4 % (0-5); Hematocrit 27.9 % (37-47); Hemoglobin 9.1 g/dL (12.0-15.0); Lymphocyte # 0.41 X10^3/ul (4.0); Lymphocyte % 3.6 % (19-41); Mean Corp Hgb Conc 32.6 g/dL (32-36); Mean Corpuscular Volume 104.1 fL (81-99); Monocyte# 0.95 X10^3/uL; Monocyte% 8.3 % (0-10); NRBC Flagged by Analyzer 0.4 % (0-5); Neutrophil # 9.89 X10^3/uL (2.7-7.7); Neutrophil % 86.8 % (47-70); POSITIVE COUNT YES; POSITIVE DIFFERENTIAL YES; RBC Distribution Width CV 15.6 % (11.6-14.6); RBC Distribution Width SD 59.5 fl (35.1-43.9); Red Blood Count 2.68 M/mm3 (4.2-5.4); White Blood Count 11.4 K/mm3 (4.4-11.0)
[2019-07-22 00:53] LABS: Differential Indicated SCAN CRITERIA MET; Platelet Count 26 K/mm3 (150-450)
[2019-07-22 01:02] LABS: Anion Gap 9 (5-15); BUN 65 mg/dL (7-18); BUN/Creat Ratio 18.3 RATIO (10-20); Chloride 99 mmol/L (98-107); Creatinine, Serum 3.56 mg/dL (0.55-1.02); EST Glomerular Filtration Rate 15 mL/min (>60); Est Glom Filt Rate - Afr Amer 18 mL/min (>60); Estimated Creatinine Clearance 8.45 ml/min; Glucose 103 mg/dL (74-106); Potassium 3.6 mmol/L (3.5-5.1); Sodium Level 136 mmol/L (136-145)
[2019-07-22 01:11] LABS: Platelet Estimate MKD DEC (ADEQ)
[2019-07-22 01:14] LABS: Anisocytosis 1+; Macrocytosis 1+
[2019-07-22] MEDS: Albuterol 2.5 MG/3 ML VIAL.NEB. INHALATION ×3 (07:09→15:50)
--- NOTE | 2019-07-22 09:23 | PN_ITS ---
Patient Problems: Active and Suspected Problems (Last Reviewed 07/14/19 @ 12:[address] Jacob Boswell MD) Pneumonia (Acute) Influenza (Acute) Respiratory failure (Acute) Respiratory failure (Acute) Pneumonia (Acute) Reason for Visit: resp failure Subjective: pulled out IV in foot. 24 peripheral placed in wrist. Vitals/I&O's: Vital Signs Temp Pulse Resp BP Pulse Ox 36.0 C L 97 35 H 150/100 H 92 07/22/19 04:00 07/22/19 07:11 07/22/19 07:11 07/22/19 07:00 07/22/19 08:10 Oxygen Flow Rate (L/min) 17 Oxygen Delivery Method CPAP Weight: 27.4 kg Body Mass Index (BMI) 12.8 Finger Stick Blood Glucose 104 Intake and Output for Last 24 Hours 07/20/19 07/21/19 07/22/19 23:59 23:59 23:59 Intake Total 1062 / 1247 1127 / 1451 612 / 612 Output Total 0 / 0 0 / 0 Balance 1062 / 1247 1127 / 1451 612 / 612 General: Alert, Cooperative, - - tachypneic. afebrile. more alert and interactive today. HEENT: Atraumatic, Normocephalic Oral: Moist Mucosa, No Gingival or Mucosal Lesions/ Ulcerations Neck: No Nodes, Trachea Midline Lungs: Diminished, - - coarse breath sounds bilaterally. Cardiovascular: Regular rate, Regular Rhythm, Normal S1, Normal S2, No murmurs Abdomen: Bowel Sounds Present, Soft, Non Tender, Non-Distended, No Hepato- splenomegaly Extremities: No edema, No Calf Tenderness Skin: No rashes, No breakdown Musculoskeletal: Cachexia, Muscle Wasting Psych/Mental Status: Flat Affect Microbiology Past 72 Hours 07/20/19 04:06 Sputum, Induced/Lukens Gram Stain - Final 07/20/19 04:06 Sputum, Induced/Lukens Respiratory Culture - Preliminary Yeast 07/14/19 09:57 Blood Culture (Wb) - Right Forearm Blood Culture - Final No growth in 5 days. 07/14/19 10:45 Blood Culture (Wb) - Right Foot Blood Culture - Final No growth in 5 days. Laboratory Results 07/20/19 03:40: Diff Path Review Reviewed 07/21/19 13:57: WBC 12.1 H, RBC 3.00 L, Hgb 10.2 L, Hct 31.0 L, MCV 103.3 H, MCH 34.0 H, MCHC 32.9, RDW Std Deviation 60.2 H, RDW Coeff of Fabrice 15.6 H, Plt Count 21 L*, Immature Gran % (Auto) 0.600, Neut % (Auto) 88.6 H, Lymph % (Auto) 2.2 L, [place] % (Auto) 8.0, Eos % (Auto) 0.4, Baso % (Auto) 0.2, Absolute Neuts (auto) 10.7 H, Absolute Lymphs (auto) 0.27 L, Nucleated RBC % 0.4, Differential Comment COMMENT, Diff Path Review September yecenia, Platelet Estimate MKD 07/21/19 14:00: Sodium 134 L, Potassium 3.6, Chloride 97 L, Carbon Dioxide 29.0, Anion Gap 8, BUN 55 H, Creatinine 3.14 H, Estim Creat Clear Calc 9.58, Est GFR (MDRD) Af Amer 20 L, Est GFR (MDRD) Non-Af 17 L, BUN/Creatinine Ratio 17.5, Glucose 103, Calcium 8.2 L 07/21/19 14:21: Specimen Type ART, Sample Site R Brachial, pH 7.48 H, Bicarbonate Actual 31.2 H, POC Total CO2 33, Base Excess 8 H, O2 Saturation 96, O2 % 54, ABG pCO2 42.1, ABG pO2 78, O2 Delivery Device Bi / C PAP, Blood Gas Notified Whom ICU , Blood Gas Notified Time 1420 07/22/19 00:40: WBC 11.4 H, RBC 2.68 L, Hgb 9.1 L, Hct 27.9 L, MCV 104.1 H, MCH 34.0 H, MCHC 32.6, RDW Std Deviation 59.5 H, RDW Coeff of Fabrice 15.6 H, Plt Count 26 L*, Immature Gran % (Auto) 0.700, Neut % (Auto) 86.8 H, Lymph % (Auto) 3.6 L, [place] % (Auto) 8.3, Eos % (Auto) 0.4, Baso % (Auto) 0.2, Absolute Neuts (auto) 9.9 H, Absolute Lymphs (auto) 0.41 L, Nucleated RBC % 0.4, Differential Comment , Diff Path Review May foll, Platelet Estimate MKD DEC, Anisocytosis 1+, Macrocytosis 1+ 07/22/19 00:40: Sodium 136, Potassium 3.6, Chloride 99, Carbon Dioxide 28.0, Anion Gap 9, BUN 65 H, Creatinine 3.56 H, Estim Creat Clear Calc 8.45, Est GFR (MDRD) Af Amer 18 L, Est GFR (MDRD) Non-Af 15 L, BUN/Creatinine Ratio 18.3, Glucose 103, Calcium 8.0 L Current Medications Albuterol Sulfate (Ventolin Aerosols) 2.5 mg INHALATION Q4HWA.RT [facility] Last Admin: 07/22/19 07:09 Dose: 2.5 mg Documented by: Amlodipine Besylate (Norvasc) 2.5 mg PO DAILY [facility] Last Admin: 07/21/19 09:40 Dose: 2.5 mg Documented by: Dronabinol (Marinol) 2.5 mg PO 4X/[facility] Last Admin: 07/21/19 21:45 Dose: Not Given Documented by: Escitalopram Oxalate (Lexapro) 10 mg PO DAILY [facility] Last Admin: 07/21/19 09:39 Dose: 10 mg Documented by: Gabapentin (Neurontin) 100 mg PO BIDCM [facility] Last Admin: 07/21/19 17:47 Dose: 100 mg Documented by: Glucagon () 1 mg IM .X1 PRN PRN Reason: Hypoglycemia Hydralazine HCl (Apresoline Iv) 10 mg IV Q6H PRN PRN PRN Reason: SBP > 160 Last Admin: 07/21/19 03:46 Dose: 10 mg Documented by: Sodium Chloride () 250 mls @ 15 mls/hr IV .[id number] PRN PRN Reason: Saline Flush Sodium Chloride () 250 mls @ 15 mls/hr IV .[id number] PRN PRN Reason: Additional IVPB Infusion Dextrose (Dextrose 10%-Water) 250 mls @ 999 mls/hr IV .Q16M PRN; Protocol PRN Reason: HYPOGLYCEMIA Last Infusion: 07/15/19 04:38 Dose: Infused Documented by: Enteral Nutritional Formula (Nepro Carb Steady) 1,000 mls @ 30 mls/hr GT .[id number] [facility] Last Admin: 07/21/19 01:12 Dose: 30 mls/hr Documented by: Lorazepam (Ativan) 0.5 mg PO Q6H [facility] Last Admin: 07/22/19 05:38 Dose: 0.5 mg Documented by: Metoprolol Tartrate (Lopressor (Beta Lucas)) 50 mg PO BID [facility] Last Admin: 07/21/19 21:43 Dose: 50 mg Documented by: Oseltamivir Phosphate (Tamiflu) 30 mg PO TuThSa@1700 [facility] Stop: 07/22/19 17:01 Last Admin: 07/20/19 17:38 Dose: Not Given Documented by: Oxycodone HCl (Oxyir) 5 mg PO Q4H PRN PRN PRN Reason: Pain Score 6-10/10 Pantoprazole Sodium (Protonix) 40 mg PO BID [facility] Last Admin: 07/21/19 21:43 Dose: 40 mg Documented by: Polyethylene Glycol (Miralax) 17 gm PO DAILY PRN PRN PRN Reason: Constipation Senna/Docusate Sodium (Senokot-S, Maria Guadalupe-Colace) 2 tablet PO BID PRN PRN PRN Reason: Constipation Sodium Chloride () 10 - 40 ml IV UD PRN PRN Reason: SALINE FLUSH Last Admin: 07/21/19 17:48 Dose: 30 ml Documented by: STROKE Vital Signs/Narrative: Vital Signs Pulse Resp BP Pulse Ox 07/22/19 08:10 92 07/22/19 07:45 86 07/22/19 07:35 94 07/22/19 07:11 97 35 H 99 07/22/19 07:00 96 31 H 150/100 H 99 07/22/19 06:05 99 28 H 98 07/22/19 06:00 104 H 29 H 174/109 H 96 Medical Necessity - Tobacco Use Smoking Status: Former smoker Assessment/Plan All Active Problems (Last Reviewed 07/14/19 @ 12:[address] Jacob Boswell MD) Pneumonia (Acute) Influenza (Acute) Respiratory failure (Acute) Respiratory failure (Acute) Pneumonia (Acute) Healthcare-associated pneumonia (Acute) Problem with dialysis access (Resolved) History of cytomegalovirus infection (Resolved) Sepsis (Acute) Pneumonia, bacterial (Resolved) History of renal transplant (Resolved) 1. severe sepsis * POA * 2/2 pneumonia and influenza A * BCx, C diff, UCx, strep Ag, Leg Ag negative 2. presumed gram negative pneumonia * completed cefepime on the * pulm toilet * may be a secondary bacterial pneumonia due to influenza A 3. Influenza A * on oseltamivir through the 4. Acute hypoxic respiratory failure * 2/2 above * on high-flow oxygen, stable * wean as tolerated * poor effort will inhibit recovery 5. severe protein malnutrition * albumin 1.6 with severe muscle wasting * on tube feeds * nutrition following * on dronabinol 6. ESRD * on HD * nephrology following * failed renal xplant. 7. debility * Karnosky score 30, severely disabled * complicates overall care 8. VTE prophylaxis: SCDs. 9. Disposition: pt more alert the past few days, however, she has been reluctant to engage with therapy. Nursing addressed patient directly about this and encouraged her to be more involved in her own care. I seconded that with the patient. I also spoke to patient that her recovery will be long given her overall debility. I told that we will look into an LTAC given her anticipated prolonged recovery. Greater than 35 min of which greater than 50% of the time was encouraging patient to be more engaged in her care, and disposition. Code Visit Inpatient E&M: 96240 Subs Hosp L3
[2019-07-22] MEDS: Metoprolol Tartrate 50 MG Tablet PO (10:07)
[2019-07-22] MEDS: Escitalopram Oxalate 10 MG Tablet PO (10:07)
[2019-07-22] MEDS: Gabapentin 100 MG Capsule PO (10:07)
[2019-07-22] MEDS: Pantoprazole Sodium 40 MG Tablet PO (10:08)
[2019-07-22] MEDS: amLODIPine 2.5 MG Tablet PO ×2 (10:08→13:24)
--- NOTE | 2019-07-22 10:12 | PCM.PN.INT ---
Subjective: Patient did okay overnight. Patient continues to require high flow nasal cannula [id number] to maintain respiratory status. Patient was better yesterday with cooperation with staff and was able to stand at the window for 5 minutes. Patient continues to report cough and generalized body aches. General: Alert, Cooperative - Intermittently, - - Mild to moderate respiratory distress HEENT: Atraumatic, PERRLA, EOMI, Normocephalic, - - Slight scleral injection without icterus Oral: Moist Mucosa, No Gingival or Mucosal Lesions/ Ulcerations Neck: Supple, No JVD, No Nodes, Trachea Midline Lungs: No wheeze, No rales, Diminished, Rhonchi, - - Symmetric expansion. Cardiovascular: Normal S1, Normal S2, No murmurs, No rub noted, No Gallop, Tachycardic Abdomen: Bowel Sounds Present, Soft, Non Tender, Non-Distended Extremities: No clubbing, No cyanosis, No edema Skin: No rashes, No breakdown Musculoskeletal: No Tenderness to Palpation of Joints or Extremities, Cachexia, Muscle Wasting Lymphatic: No Cervical, Supraclavicular, or Inguinal Adenopathy Neurological: Cranial nerves II-XII grossly intact, Neuro grossly intact Psych/Mental Status: Anxious, Restless Vital Signs Temp Pulse Resp BP Pulse Ox 36.0 C L 101 H 35 H 171/107 H 92 07/22/19 04:00 07/22/19 10:07 07/22/19 07:11 07/22/19 10:07 07/22/19 08:10 Oxygen Flow Rate (L/min) 17 Oxygen Delivery Method CPAP Weight: 27.4 kg Body Mass Index (BMI) 12.8 Finger Stick Blood Glucose 104 Intake and Output for Last 24 Hours 07/20/19 07/21/19 07/22/19 23:59 23:59 23:59 Intake Total 1062 / 1247 1127 / 1451 612 / 612 Output Total 0 / 0 0 / 0 Balance 1062 / 1247 1127 / 1451 612 / 612 Labs (Last 48 Hours) 07/20/19 07/21/19 07/21/19 03:40 13:57 14:00 WBC 12.1 H RBC 3.00 L Hgb 10.2 L Hct 31.0 L MCV 103.3 H MCH 34.0 H MCHC 32.9 RDW Std Deviation 60.2 H RDW Coeff of Fabrice 15.6 H Plt Count 21 L* Immature Gran % (Auto) 0.600 Neut % (Auto) 88.6 H Lymph % (Auto) 2.2 L [place] % (Auto) 8.0 Eos % (Auto) 0.4 Baso % (Auto) 0.2 Absolute Neuts (auto) 10.7 H Absolute Lymphs (auto) 0.27 L Nucleated RBC % 0.4 Differential Comment COMMENT Diff Path Review Reviewed September foll Platelet Estimate MKD DEC Anisocytosis Macrocytosis Specimen Type Sample Site pH Bicarbonate Actual POC Total CO2 Base Excess O2 Saturation O2 % ABG pCO2 ABG pO2 O2 Delivery Device Blood Gas Notified Whom Blood Gas Notified Time Sodium 134 L Potassium 3.6 Chloride 97 L Carbon Dioxide 29.0 Anion Gap 8 BUN 55 H Creatinine 3.14 H Estim Creat Clear Calc 9.58 Est GFR (MDRD) Af Amer 20 L Est GFR (MDRD) Non-Af 17 L BUN/Creatinine Ratio 17.5 Glucose 103 Calcium 8.2 L 07/21/19 07/22/19 07/22/19 14:21 00:40 00:40 WBC 11.4 H RBC 2.68 L Hgb 9.1 L Hct 27.9 L MCV 104.1 H MCH 34.0 H MCHC 32.6 RDW Std Deviation 59.5 H RDW Coeff of Fabrice 15.6 H Plt Count 26 L* Immature Gran % (Auto) 0.700 Neut % (Auto) 86.8 H Lymph % (Auto) 3.6 L [place] % (Auto) 8.3 Eos % (Auto) 0.4 Baso % (Auto) 0.2 Absolute Neuts (auto) 9.9 H Absolute Lymphs (auto) 0.41 L Nucleated RBC % 0.4 Differential Comment Diff Path Review September foll Platelet Estimate MKD DEC Anisocytosis 1+ Macrocytosis 1+ Specimen Type ART Sample Site R Brachial pH 7.48 H Bicarbonate Actual 31.2 H POC Total CO2 33 Base Excess 8 H O2 Saturation 96 O2 % 54 ABG pCO2 42.1 ABG pO2 78 O2 Delivery Device Bi / C PAP Blood Gas Notified Whom ICU MD Blood Gas Notified Time 1420 Sodium 136 Potassium 3.6 Chloride 99 Carbon Dioxide 28.0 Anion Gap 9 BUN 65 H Creatinine 3.56 H Estim Creat Clear Calc 8.45 Est GFR (MDRD) Af Amer 18 L Est GFR (MDRD) Non-Af 15 L BUN/Creatinine Ratio 18.3 Glucose 103 Calcium 8.0 L Microbiology 07/20/19 04:06 Sputum, Induced/Lukens Gram Stain - Final 07/20/19 04:06 Sputum, Induced/Lukens Respiratory Culture - Preliminary Presumptive C albicans Possible Fungus Medical Necessity - Tobacco Use Smoking Status: Former smoker Assessment/Plan All Active Problems (Last Reviewed 07/14/19 @ 12:[address] Jacob Boswell MD) Pneumonia (Acute) Influenza (Acute) Respiratory failure (Acute) Respiratory failure (Acute) Pneumonia (Acute) Healthcare-associated pneumonia (Acute) Problem with dialysis access (Resolved) History of cytomegalovirus infection (Resolved) Sepsis (Acute) Pneumonia, bacterial (Resolved) History of renal transplant (Resolved) RECOMMENDATIONS: 1. Continue Airvo, as the patient will not tolerate BiPAP, and wean FiO2 to maintain oxygen saturations at or above 90%. 2. Given weak cough, orders for IPV therapy with aerosols have been placed. 3. Encourage incentive spirometer use and mobilize patient as tolerated. 4. Completed Tamiflu and empiric antimicrobials courses. Would not recommend treating recent positive fungal cultures on sputum 5. Continue hemodialysis support per nephrology recommendations. 6. Continue beta-sonya. Increase Norvasc 7. Consider LTAC evaluation IMPRESSIONS: 1. Acute combined on chronic hypoxemic respiratory failure Multifactorial in etiology and related to hypervolemia in the setting of end-stage renal disease with recent missed hemodialysis session, coupled with a history of recurrent pleural effusions, healthcare associated pneumonia and influenza. She is profoundly weak and malnourished. Accordingly, her cough is quite weak as well. We will plan to continue her on Airvo, as she will not tolerate any form of BiPAP therapy due to anxiety. Wean FiO2 to maintain oxygen saturations at or above 90%. The patient will require aggressive physical therapy and nutritional support services. Patient completed courses of Tamiflu and antibiotics. Encourage incentive spirometer use and mobilize patient as tolerated. Stressed to the patient that cooperation will be required to recover given her poor baseline nutritional status. We will NT suction as necessary. Patient is willing to have a tracheostomy if necessary. Given level of care, evaluation for LTAC may be appropriate 2. Severe sepsis Secondary to influenza A with concern for superimposed bacterial pneumonia. Accordingly, the patient will be continued on broad-spectrum antimicrobials along with Tamiflu. Patient completed a 7-day course of antibiotics 3. End-stage renal disease on hemodialysis Nephrology following to assist with hemodialysis needs. Patient's beta-sonya was increased during hospitalization. Blood pressure remains significantly elevated despite hemodialysis yesterday. Will increase Norvasc 4. History of gastric CA/history of renal transplant with subsequent rejection/severe protein calorie malnutrition Complicates care, management, recovery and prognosis. Nutrition is currently following to assist with dietary needs. Code Visit Inpatient E&M: 78025 [facility] Hosp L3
--- NOTE | 2019-07-22 10:14 | CASEMGMT ---
RN DANIEL Note: participated in ICU interdisciplinary rounds. Pt in chair, able to listen to rounds and able to participate. Pt remains on high flow oxygen. Dialysis today. Physician recommendation is for LTAC consideration on dc. MONTY SANCHEZ looked up list on O website for [facility]: [facility] in [facility] and [facility] in [facility]. - has left, will speak with him later by phone or during rounds tomorrow. Khang WEIN RN ACM
--- NOTE | 2019-07-22 10:20 | CASEMGMT ---
Social Work SW participated in interdisciplinary rounds. Pt, pt spouse and mother in law present. Dr. Everett feels pt may be more appropriate for LTACH at this time and family expressed understanding. Harman, RNCM notified and will follow up with pt and family for LTACH discussion. RAPHAEL placed phone call to [facility] and placed referral on hold at this time. ANGELES Mera
--- NOTE | 2019-07-22 10:21 | NT.THERAPY_ITS ---
Nutrition Therapy Report - History Nutrition Services has been consulted to:: Manage enteral nutrition Current diet / nutrition support order:: Nepro CarbSteady via PEG at 35mL/hour to provide 1512 calories, 68 g protein; Regular, low sodium diet w/ mighty shake/magic cup at meals - Anthropometric Measurements Height:: 4 ft 11 in Weight:: 27.4 kg Body Mass Index (BMI):: 12.2 - Relevant Labs Relevant Labs:: WBC 11.4 K/mm3 (4.4-11.0) H 07/22/19 00:40 RBC 2.68 M/mm3 (4.2-5.4) L 07/22/19 00:40 Hgb 9.1 g/dL (12.0-15.0) L 07/22/19 00:40 Hct 27.9 % (37-47) L 07/22/19 00:40 MCV 104.1 fL (81-99) H 07/22/19 00:40 MCH 34.0 pg (27.0-32.0) H 07/22/19 00:40 MCHC 31.2 g/dL (32-36) L 07/18/19 05:00 RDW Std Deviation 59.5 fl (35.1-43.9) H 07/22/19 00:40 RDW Coeff of Fabrice 15.6 % (11.6-14.6) H 07/22/19 00:40 Plt Count 26 K/mm3 (150-450) L* 07/22/19 00:40 MPV 13.4 fl (6.2-12.0) H 07/18/19 05:00 Immature Gran % (Auto) 1.800 % (0.0-0.9) H 07/15/19 04:20 Neut % (Auto) 86.8 % (47-70) H 07/22/19 00:40 Lymph % (Auto) 3.6 % (19-41) L 07/22/19 00:40 Absolute Neuts (auto) 9.9 X10^3/uL (2.0-7.7) H 07/22/19 00:40 Absolute Lymphs (auto) 0.41 X10^3/uL (0.83-4.51) L 07/22/19 00:40 APTT 40.1 Seconds (24.1-36.2) H 07/14/19 09:57 Sodium 134 mmol/L (136-145) L 07/21/19 14:00 Potassium 3.4 mmol/L (3.5-5.1) L 07/20/19 03:40 Chloride 97 mmol/L (98-107) L 07/21/19 14:00 BUN 65 mg/dL (7-18) H 07/22/19 00:40 Creatinine 3.56 mg/dL (0.55-1.02) H 07/22/19 00:40 Est GFR (MDRD) Af Amer 18 mL/min (>60) L 07/22/19 00:40 Est GFR (MDRD) Non-Af 15 mL/min (>60) L 07/22/19 00:40 Glucose 150 mg/dL (74-106) H 07/20/19 03:40 Lactic Acid 2.3 mmol/L (0.4-1.9) H* 07/14/19 10:45 Calcium 8.0 mg/dL (8.5-10.1) L 07/22/19 00:40 Direct Bilirubin 0.32 mg/dL (0.00-0.30) H 07/17/19 04:10 AST 109 U/L (15-37) H 07/17/19 04:10 ALT 66 U/L (13-56) H 07/17/19 04:10 Alkaline Phosphatase 417 U/L (45-117) H 07/17/19 04:10 Total Protein 5.3 g/dL (6.4-8.2) L 07/17/19 04:10 Albumin 1.6 g/dL (3.2-5.0) L 07/17/19 04:10 Globulin 4.9 g/dL (2.2-4.2) H 07/14/19 09:57 Albumin/Globulin Ratio 0.5 RATIO (0.9-2.4) L 07/14/19 09:57 - Assessment Food / Nutrition-Related History:: Concerns that pt continues to lose wt. Wt on admission was 29.9 kg, CBW 27.4 kg, 8% wt loss- significant for severe, acute malnutrition. However, pt has had dialysis w/ fluid removal. Estimated nutritional needs for CBW: 960 calories, 33 g protein. Estimated nutritional needs for ideal body weight (95#): 1511 calories, 52 g protein. Calories/protein provided from enteral nutrition support are currently meeting nutritional needs for ideal body weight. Pt w/ PO diet ordered- encouraged pt to take food PO. - Nutrition Diagnosis Problem / Etiology / Signs & Symptoms (PES):: Severe pro/jd malnutrition of chr onic disease related to increased nutrient needs due to illness as evidenced by severe suboptimal intake/ refusing PO diet, suboptimal TF support prior to admission, severe wt loss~5-6% x past 1 month, and visible severe body fat/muscle mass depletion Evidence of Malnutrition Exists:: Yes Severe PCM:: Chronic Illness - Nutrition Intervention Nutrition Prescription:: Estimated nutritional needs for ideal body weight (95#): 1511 calories, 52 g protein - Food / Nutrient Delivery Interventions Summary of nutrition intervention:: Continue current enteral nutrition support as ordered Nutrition support ordered as / adjusted to:: Nepro Carb Steady at goal rate 35 ml/hr w/ 120 ml flush every 4 hours to provide 1512 calories, 68 gm protein, ~1450 ml free water daily. Continue Regular/No added salt PO diet. Nutrition education provided?: No - MNT Monitoring Further MNT monitoring and evaluation required?: Yes MNT Follow-up in:: 1-2 days
--- NOTE | 2019-07-22 11:19 | CASEMGMT ---
RN DANIEL Note: CM called to to discuss LTAC referral. Explained purpose of LTAC vs SNF. Reviewed [facility] per MMO and need for insurance approval prior to discharge. states he would like [facility]-will consider [place] vs [place]. is in agreement to send referral to [facility]. -Clinical faxed to [phone] -call to [facility] to notify of referral. Khang WEIN RN ACM
--- NOTE | 2019-07-22 11:50 | CPS ---
Patient required NT suctioning with bilateral rhonchi. On first attempt, 14 Fr catheter passed through R nares easily, patient's heart rate dropped into 30's. Sats dropped to 86%. Suction catheter removed. Patient recovered and second attempt was successful, no bradycardia or desaturations. Patient tolerated fair. Breath sounds improved after suctioning.
--- NOTE | 2019-07-22 12:09 | PCM.PN.REN ---
Patient Problems: Active and Suspected Problems (Last Reviewed 07/14/19 @ 12:[address] Jacob Boswell MD) Pneumonia (Acute) Influenza (Acute) Respiratory failure (Acute) Respiratory failure (Acute) Pneumonia (Acute) Subjective: seen on dialysis, remains debilitated, frail with secretions on auscultation of lungs. Fluid removal as tolerated - Physical Exam Vitals/I&O's: Vital Signs Temp Pulse Resp BP Pulse Ox 96.8 F L 101 H 37 H 171/107 H 93 07/22/19 04:00 07/22/19 10:07 07/22/19 09:25 07/22/19 10:07 07/22/19 09:25 Oxygen Flow Rate (L/min) 17 Oxygen Delivery Method CPAP Weight: 27.4 kg Body Mass Index (BMI) 12.2 Finger Stick Blood Glucose 104 Intake and Output for Last 24 Hours 07/20/19 07/21/19 07/22/19 23:59 23:59 23:59 Intake Total 1062 / 1247 1127 / 1451 612 / 612 Output Total 0 / 0 0 / 0 Balance 1062 / 1247 1127 / 1451 612 / 612 General: - - somnolent Lungs: Rhonchi, Wheezes, - - secretions Cardiovascular: Regular rate Abdomen: Bowel Sounds Present, Soft, Non Tender Extremities: No edema Microbiology Past 72 Hours 07/20/19 04:06 Sputum, Induced/Lukens Gram Stain - Final 07/20/19 04:06 Sputum, Induced/Lukens Respiratory Culture - Preliminary Presumptive C albicans Possible Fungus 07/14/19 09:57 Blood Culture (Wb) - Right Forearm Blood Culture - Final No growth in 5 days. 07/14/19 10:45 Blood Culture (Wb) - Right Foot Blood Culture - Final No growth in 5 days. Laboratory Results 07/21/19 13:57: WBC 12.1 H, RBC 3.00 L, Hgb 10.2 L, Hct 31.0 L, MCV 103.3 H, MCH 34.0 H, MCHC 32.9, RDW Std Deviation 60.2 H, RDW Coeff of Fabrice 15.6 H, Plt Count 21 L*, Immature Gran % (Auto) 0.600, Neut % (Auto) 88.6 H, Lymph % (Auto) 2.2 L, [place] % (Auto) 8.0, Eos % (Auto) 0.4, Baso % (Auto) 0.2, Absolute Neuts (auto) 10.7 H, Absolute Lymphs (auto) 0.27 L, Nucleated RBC % 0.4, Differential Comment COMMENT, Diff Path Review May yecenia, Platelet Estimate MKD 07/21/19 14:00: Sodium 134 L, Potassium 3.6, Chloride 97 L, Carbon Dioxide 29.0, Anion Gap 8, BUN 55 H, Creatinine 3.14 H, Estim Creat Clear Calc 9.58, Est GFR (MDRD) Af Amer 20 L, Est GFR (MDRD) Non-Af 17 L, BUN/Creatinine Ratio 17.5, Glucose 103, Calcium 8.2 L 07/21/19 14:21: Specimen Type ART, Sample Site R Brachial, pH 7.48 H, Bicarbonate Actual 31.2 H, POC Total CO2 33, Base Excess 8 H, O2 Saturation 96, O2 % 54, ABG pCO2 42.1, ABG pO2 78, O2 Delivery Device Bi / C PAP, Blood Gas Notified Whom ICU MD, Blood Gas Notified Time 1420 07/22/19 00:40: WBC 11.4 H, RBC 2.68 L, Hgb 9.1 L, Hct 27.9 L, MCV 104.1 H, MCH 34.0 H, MCHC 32.6, RDW Std Deviation 59.5 H, RDW Coeff of Fabrice 15.6 H, Plt Count 26 L*, Immature Gran % (Auto) 0.700, Neut % (Auto) 86.8 H, Lymph % (Auto) 3.6 L, [place] % (Auto) 8.3, Eos % (Auto) 0.4, Baso % (Auto) 0.2, Absolute Neuts (auto) 9.9 H, Absolute Lymphs (auto) 0.41 L, Nucleated RBC % 0.4, Differential Comment , Diff Path Review September yecenia, Platelet Estimate MKD APR, Anisocytosis 1+, Macrocytosis 1+ 07/22/19 00:40: Sodium 136, Potassium 3.6, Chloride 99, Carbon Dioxide 28.0, Anion Gap 9, BUN 65 H, Creatinine 3.56 H, Estim Creat Clear Calc 8.45, Est GFR (MDRD) Af Amer 18 L, Est GFR (MDRD) Non-Af 15 L, BUN/Creatinine Ratio 18.3, Glucose 103, Calcium 8.0 L Current Medications Albuterol Sulfate (Ventolin Aerosols) 2.5 mg INHALATION Q4HWA.RT [facility] Last Admin: 07/22/19 11:30 Dose: 2.5 mg Documented by: Amlodipine Besylate (Norvasc) 5 mg PO DAILY [facility] Dronabinol (Marinol) [facility] Last Admin: 07/21/19 21:45 Dose: Not Given Documented by: Escitalopram Oxalate (Lexapro) 10 mg PO DAILY [facility] Last Admin: 07/22/19 10:07 Dose: 10 mg Documented by: Gabapentin ([facility]urontin) [facility] Last Admin: 07/22/19 10:07 Dose: 100 mg Documented by: Glucagon () 1 mg IM .X1 PRN PRN Reason: Hypoglycemia Hydralazine HCl (Apresoline Iv) 10 mg IV Q6H PRN PRN PRN Reason: SBP > 160 Last Admin: 07/21/19 03:46 Dose: 10 mg Documented by: Sodium Chloride () 250 mls @ 15 mls/hr IV .[id number] PRN PRN Reason: Saline Flush Sodium Chloride () 250 mls @ 15 mls/hr IV .[id number] PRN PRN Reason: Additional IVPB Infusion Dextrose (Dextrose 10%-Water) 250 mls @ 999 mls/hr IV .Q16M PRN; Protocol PRN Reason: HYPOGLYCEMIA Last Infusion: 07/15/19 04:38 Dose: Infused Documented by: Enteral Nutritional Formula (Nepro Carb Steady) 1,000 mls @ 30 mls/hr GT .[id number] [facility] Last Admin: 07/21/19 01:12 Dose: 30 mls/hr Documented by: Lorazepam (Ativan) 0.5 mg PO Q6H [facility] Last Admin: 07/22/19 05:38 Dose: 0.5 mg Documented by: Metoprolol Tartrate (Lopressor (Beta Lucas)) 50 mg PO BID [facility] Last Admin: 07/22/19 10:07 Dose: 50 mg Documented by: Oseltamivir Phosphate (Tamiflu) 30 mg PO TuThSa@1700 [facility] Stop: 07/22/19 17:01 Last Admin: 07/20/19 17:38 Dose: Not Given Documented by: Oxycodone HCl (Oxyir) 5 mg PO Q4H PRN PRN PRN Reason: Pain Score 6-10/10 Pantoprazole Sodium (Protonix) 40 mg PO BID [facility] Last Admin: 07/22/19 10:08 Dose: 40 mg Documented by: Polyethylene Glycol (Miralax) 17 gm PO DAILY PRN PRN PRN Reason: Constipation Senna/Docusate Sodium (Senokot-S, Maria Guadalupe-Colace) 2 tablet PO BID PRN PRN PRN Reason: Constipation Sodium Chloride () 10 - 40 ml IV UD PRN PRN Reason: SALINE FLUSH Last Admin: 07/21/19 17:48 Dose: 30 ml Documented by: Medical Necessity - Tobacco Use Smoking Status: Former smoker Assessment/Plan All Active Problems (Last Reviewed 07/14/19 @ 12:[address] Jacob Boswell MD) Pneumonia (Acute) Influenza (Acute) Respiratory failure (Acute) Respiratory failure (Acute) Pneumonia (Acute) Healthcare-associated pneumonia (Acute) Problem with dialysis access (Resolved) History of cytomegalovirus infection (Resolved) Sepsis (Acute) Pneumonia, bacterial (Resolved) History of renal transplant (Resolved) 1. 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 HD TTS. Seen on dialysis 2. acute respiratory failure due to pneumonia, influenza. CCM following 3. Acute pneumonia with consolidation in compromised host. 4. FTT cont tube feedings 5. chronic pleural effusion 6. Influenza A positive 7. Anemia hgb stable 8. thrombocytopenia, hold heparin
[2019-07-22 13:05] LABS: Pathologist Review Reviewed
[2019-07-22 13:09] LABS: Pathologist Review Reviewed
--- NOTE | 2019-07-22 13:10 | CPS ---
Called to patients room. Sats were 74% on Heated High Flow Therapy. Dr Everett at bedside, O2 flow increased. Heated High Flow Therapy shut-off and restarted. Patient placed on a NRB at 15lpm. O2 flow on heated high flow increased to 43lpm for a FiO2 of 85%. Sats slowly increased into 90's.
[2019-07-22] MEDS: oxyCODONE 5 MG Tablet PO (13:57)
[2019-07-22 14:16] LABS: Allen Test POS; Base Excess 11 mmol/L (-2 to +2); Bicarbonate 34.5 mmol/L (22-26); Blood Gas Specimen Type ART; FI02 85; PO2 85 mmHG (75-100); SITE R Radial; SO2 97 % (95-99); Time Given 1405; Total Carbon Dioxide 36 mmol/L; pCO2 48.1 mmHg (35-45); pH 7.46 (7.35-7.45)
--- NOTE | 2019-07-22 14:17 | CASEMGMT ---
RN CM Note: Call received from [facility], admissions with [facility]. Preliminary review- pt [facility]. Further information given. Pt will need MMO precert which when accepted would be active for [address] Everett, pt is medically ready for LTAC LOC when precert received. Per inessa, she will start precert. Khang BRAXTON RN ACM
--- NOTE | 2019-07-22 14:42 | NURSING ---
vygon 22g 6cm extended dwell peripheral IV inserted. Lidocaine used for local anesthesia. Accelerated Technique used. Sterile setup.
--- NOTE | 2019-07-22 15:13 | DIALYSIS ---
HD discontinued 23 minutes early d/t bp dropping into the 80's per Dr. Mcdaniel. While returning the blood her heart rate dropped into the 30-40's. HR did come back up to 90's fairly quickly. Ran on 3k bath. UF of 313ml. Used left arm fistula. [place] removed post tx and pressure applied x 20 minutes. Report was given to MONTY Gar.
[2019-07-22] MEDS: Morphine 2 MG/ML Syringe IV ×2 (16:10→18:15)
--- NOTE | 2019-07-22 16:15 | CASEMGMT ---
RN CM Note: Per Dr. Everett and nurse, family has decided for Hospice Consult. RAPHAEL Weston will come to speak with family and initiate referral. RN DANIEL called to [facility] to update that Hospice referral is being made. Khang WEIN RN ACM
--- NOTE | 2019-07-22 16:45 | CASEMGMT ---
Social Work Referral from MONTY SANCHEZ as patient family is requesting hospice consult. When this social science professor arrived on the unit, this social science professor noting that Keri Dallas N.P with [facility] meeting with patient/patient family. This social science professor speaking with Amy. Saavedra stating to have been following up with patient family this week and confirming that family is now requesting hospice services. Patient family appearing to be understanding of current situation and voicing no further questions. Plan is for patient to discharge to the inpatient hospice unit. Support provided. Red DRISCOLL, CHARLENE
--- NOTE | 2019-07-23 07:06 | DCINST_ITS ---
You will use the following diet at home:: No restrictions Allergies/Adverse Reactions: Allergies Sulfa (Sulfonamide Antibiotics) Allergy (Verified 06/01/19 13:07) Hives NSAIDS (Non-Steroidal Anti-Inflamma Adverse Reaction (Verified 06/01/19 13:07) Other Medications to take at Discharge Cyanocobalamin [Vitamin B12] 1,000 mcg IM Q30D 07/03/17 Dronabinol [Marinol] 2.5 mg PO 4X/DAY 07/03/17 Gabapentin [Neurontin] 300 mg PO BIDCM 07/03/17 Levonorgestrel [Mirena] 1 ea VAGINAL UD 07/03/17 Vits [Prenatabs FA ] 1 tab PO DAILY 07/03/17 Tizanidine HCl [Zanaflex] 4 mg PO QHS 04/27/18 Biotin 10,000 mcg PO DAILY 05/05/18 oxycodone-acetaminophen 5 mg-325 mg tablet 1 tab PO Q6H 06/30/18 pantoprazole 40 mg tablet,delayed release 40 mg PO BID 07/22/18 Hydroxyzine HCl 10 mg PO Q8 PRN 09/22/18 Metoprolol Tartrate [Lopressor (beta sonya)] 25 mg PO BID 09/22/18 Folic Acid/Vit B Complex and C [Renal Vitamin Tablet] 0.8 mg PO QHS 11/18/18 sucralfate 1 gram tablet 1 g PO QACHS 11/18/18 Prednisone 5 mg PO DAILY 05/09/19 Escitalopram Oxalate 10 mg PO DAILY 07/17/19 Lorazepam [Ativan] 0.5 mg PO DAILY PRN 07/17/19 Primary Care Physician: Deb Gregory MD [Primary Care Provider] - Test Results: Test results from this visit will be discussed in further detail at your follow- up appointment, if applicable. Proposed Discharge Date: 07/22/19
--- NOTE | 2019-07-23 07:09 | DS.PCM_ITS ---
Discharge Date and Diagnosis Date of Admission: 07/20/19 Date of Discharge: 07/23/19 - Primary Discharge Diagnosis 1. severe sepsis * POA * 2/2 pneumonia and influenza A * BCx, C diff, UCx, strep Ag, Leg Ag negative 2. presumed gram negative pneumonia * completed cefepime on the * pulm toilet * may be a secondary bacterial pneumonia due to influenza A 3. Influenza A * on oseltamivir through the 4. Acute hypoxic respiratory failure * 2/2 above * on high-flow oxygen, stable * wean as tolerated * poor effort will inhibit recovery 5. severe protein malnutrition * albumin 1.6 with severe muscle wasting * on tube feeds * nutrition following * on dronabinol 6. ESRD * on HD * nephrology following * failed renal xplant. 7. debility * Karnosky score 30, severely disabled * complicates overall care - Secondary Discharge Diagnosis Chronic Problems (Last Reviewed 07/14/19 @ 12:[address] Jacob Boswell MD) Failure to thrive (Chronic) History of gastrectomy (Chronic) s/p left arteriovenous fistula creation (Chronic ~05/06/18) ESRD on dialysis (Chronic) Pleural effusion (Chronic) Renal transplant rejection (Chronic) GERD (gastroesophageal reflux disease) (Chronic) history of failed renal transplant (Chronic) History of gastric cancer (Chronic) Essential hypertension (Chronic) Anemia, chronic renal failure (Chronic) Hospital Course and Treatment Imaging Results: Clinical Impression(s) from Imaging Studies Chest X-Ray 07/14/19 09:09 IMPRESSION: 1. New development of a right upper lobe and right lung base pneumonic consolidations. 2. Bibasilar pleural effusions are identified which are unchanged. Electronically Signed: Vijay Shanks, at 9:20 EST Tel , Service support , Chest X-Ray 07/14/19 11:55 IMPRESSION: 1. NG tube noted in place in good position. 2. Endotracheal tube is noted in place with its tip at the carinal bifurcation. This is a low position in the endotracheal tube should be withdrawn approximately 2 cm 3. Right lung pneumonic consolidations which are unchanged. 4. Moderate-sized bibasilar pleural effusions which are unchanged. Electronically Signed: Vijay Shanks at 12:42 EST Tel , Service support , ADDENDUM: 07/14/19 1302 IMPRESSION: 1. NG tube noted in place in good position. 2. Endotracheal tube is noted in place with its tip at the carinal bifurcation. This is a low position in the endotracheal tube should be withdrawn approximately 2 cm 3. Right lung pneumonic consolidations which are unchanged. 4. Moderate-sized bibasilar pleural effusions which are unchanged. N.B. : The above information has been verbally conveyed by Vijay Shanks to Humberto Ward MD, on 07/14/2019 12:55:55 (ET). Electronically Signed: Vijay Shanks at 12:42 EST Tel , Service support , Chest X-Ray 07/14/19 13:56 IMPRESSION: The endotracheal tube and NG tube noted in place in good position in this patient with right-sided pneumonic consolidations and bibasilar pleural effusions which are unchanged. Electronically Signed: Vijay Shanks at 14:41 EST Tel , Service support , Chest X-Ray 07/15/19 08:22 IMPRESSION: Right upper lobe and right lung base pneumonic consolidations which are unchanged in this patient with moderate sized bibasilar pleural effusions which also are unchanged. Electronically Signed: Vijay Shanks at 10:54 EST Tel , Service support , HERLINDA Everett, nephrology Operations: None Procedures: Dialysis Summary of Care Provided: The patient is a 48 year old F presented with increasing lethargy and shortness of breath. Slowly, patient was diagnosed with influenza a. Patient also had right upper and right lower lobe consolidations concerning for pneumonia. Patient was admitted on admission and admitted to the ICU. Patient was eventually extubated on the first. Patient was put on air Vo to maintain her oxygenation. Patient did eventually complete her antibiotics and antivirals for corresponding infections but patient's status did not really improve. Palliative care was eventually brought on board. Conversations amongst physicians, palliative care, patient and her family involved seeking more palliation regards to her chronic illnesses. Patient stated that she wanted to proceed with continued medical care. With that we encouraged patient to be more involved in her care and be willing to participate with therapy, which previously, she was reluctant to do so. On the fifth, patient and family wanted to proceed with hospice. Patient was discharged to the inpatient hospice facility. Prior to looking into hospice, they are we were going to be looking into LTAC as it was anticipate the patient would have a very prolonged recovery. [] - Physical Exam Vitals/I&O's: Vital Signs Temp Pulse Resp BP Pulse Ox 36.2 C L 86 33 H 150/110 H 95 07/22/19 13:30 07/22/19 16:00 07/22/19 16:00 07/22/19 16:00 07/22/19 16:00 Oxygen Flow Rate (L/min) 17 Oxygen Delivery Method Bi-pap Weight: 27.4 kg Body Mass Index (BMI) 12.2 Finger Stick Blood Glucose 104 Intake and Output for Last 24 Hours 07/21/19 07/22/19 07/23/19 23:59 23:59 23:59 Intake Total 1127 / 1451 712 / 712 Output Total 0 / 0 0 / 0 Balance 1127 / 1451 712 / 712 Microbiology Past 72 Hours 07/20/19 04:06 Sputum, Induced/[place] Gram Stain - Final 07/20/19 04:06 Sputum, Induced/[place]ens Respiratory Culture - Preliminary Presumptive C albicans Possible Fungus Laboratory Results 07/21/19 13:57: Diff Path Review Reviewed 07/22/19 00:40: Diff Path Review Reviewed 07/22/19 14:08: Specimen Type ART, Sample Site R Radial, pH 7.46 H, Bicarbonate Actual 34.5 H, POC Total CO2 36, Base Excess 11 H, O2 Saturation 97, O2 % 85, ABG pCO2 48.1 H, ABG pO2 85, [place] Test POS, O2 Delivery Device Bi / C PAP, Blood Gas Notified Whom ICU MD, Blood Gas Notified Time 1405 Home Medications: Medications to take at Discharge Cyanocobalamin [Vitamin B12] 1,000 mcg IM Q30D 07/03/17 Dronabinol [Marinol] 2.5 mg PO 4X/DAY 07/03/17 Gabapentin [Neurontin] 300 mg PO BIDCM 07/03/17 Levonorgestrel [Mirena] 1 ea VAGINAL UD 07/03/17 Vits [Prenatabs FA ] 1 tab PO DAILY 07/03/17 Tizanidine HCl [Zanaflex] 4 mg PO QHS 04/27/18 Biotin 10,000 mcg PO DAILY 05/05/18 oxycodone-acetaminophen 5 mg-325 mg tablet 1 tab PO Q6H 06/30/18 pantoprazole 40 mg tablet,delayed release 40 mg PO BID 07/22/18 Hydroxyzine HCl 10 mg PO Q8 PRN 09/22/18 Metoprolol Tartrate [Lopressor (beta sonya)] 25 mg PO BID 09/22/18 Folic Acid/Vit B Complex and C [Renal Vitamin Tablet] 0.8 mg PO QHS 11/18/18 sucralfate 1 gram tablet 1 g PO QACHS 11/18/18 Prednisone 5 mg PO DAILY 05/09/19 Escitalopram Oxalate 10 mg PO DAILY 07/17/19 Lorazepam [Ativan] 0.5 mg PO DAILY PRN 07/17/19 Primary Care Physician: Deb Gregory MD [Primary Care Provider] - Disposition: Hospice Medical Facility Minutes spent on discharge:: 35 Patient Condition:: Poor Medical Necessity - Tobacco Use Smoking Status: Former smoker Meaningful Use Info Meaningful Use Diagnoses (Choose all that apply): None applicable Inpatient E&M: 67509 Disch Hosp - discharge billing for 07/22/2019
== END 2019-07-22 18:20 | disposition hospice, inpatient (51) | DRG 871 ==
LOC: ED 12:09 → ICU 12:28
PROVIDERS: Internal Medicine Critical Care Medicine; Internal Medicine Nephrology; Admitting Provider Internal Medicine; Emergency Provider Emergency Medicine; PCP Internal Medicine
DX: A41.9 Sepsis, unspecified organism (principal); N18.6 End stage renal disease; E43 Unspecified severe protein-calorie malnutrition; J10.08 Influenza due to other identified influenza virus with other specified pneumonia; J15.6 Pneumonia due to other Gram-negative bacteria; J96.21 Acute and chronic respiratory failure with hypoxia; Z68.1 Body mass index [BMI] 19.9 or less, adult; T86.12 Kidney transplant failure; J90 Pleural effusion, not elsewhere classified; Z51.5 Encounter for palliative care; E87.5 Hyperkalemia; Z66 Do not resuscitate; R65.20 Severe sepsis without septic shock; Z85.028 Personal history of other malignant neoplasm of stomach; Z90.3 Acquired absence of stomach [part of]; Z99.81 Dependence on supplemental oxygen; Z87.891 Personal history of nicotine dependence; Z93.1 Gastrostomy status; R62.7 Adult failure to thrive; D63.1 Anemia in chronic kidney disease; K21.9 Gastro-esophageal reflux disease without esophagitis; R53.81 Other malaise; I10 Essential (primary) hypertension; Y84.2 Radiological procedure and radiotherapy as the cause of abnormal reaction of the patient, or of later complication, without mention of misadventure at the time of the procedure; D69.59 Other secondary thrombocytopenia; Z99.2 Dependence on renal dialysis
CPT/HCPCS: 31500; 31720; 36415; 36600; 51702; 71045; 80048; 80053; 80076; 81001; 82803; 82947; 82962; 83605; 83735; 84100; 84484; 85025; 85610; 85730; 86704; 86706; 87040; 87070; 87086; 87106; 87107; 87205; 87340; 87449; 87493; 87633; 87641; 87804; 90937; 93005; 94002; 94003; 94640; 94660; 94667; 94668; 97110; 97116; 97162; 97163; 97166; 97530; 97535; 97802; 97803; 99251; 99285; J7030; A4216; G0257; G0463; J2405; Q5106